=== PATIENT | female | born 1990 | race Caucasian/White ===

== ENCOUNTER 2023-02-04 08:16 | Emergency (ER) | payer MEDICAID, SELFPAY ==
[2023-02-04] VITALS (8 sets, daily range): BP systolic 97–126; BP diastolic 42–79; PULSE 55–80; RESP 16–21; TEMP 36.8; O2SAT 94–99; BMI 45.3
--- NOTE | 2023-02-04 08:27 | ECG_ITS ---
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
--- NOTE | 2023-02-04 08:40 | XR_ITS ---
The [address] [address] Patient Name: MARILIA OSBORNE MRN: [id number] date: 1990 Sex: F Assigned Patient Location: ER Current Patient Location: ER Accession/Order Number: [id number] Exam Date: 02/04/2023 08:50 Report Date: 02/04/2023 09:06 At the request of: KLAUDIA MADRIGAL Procedure: XR chest 1V TITLE: XR chest 1V COMPARISON: None. CLINICAL HISTORY: pain TECHNIQUE: One view. FINDINGS: There is a normal cardiac and mediastinal contour. The pulmonary vascular pattern is normal. The lungs are clear and the pleural margins are sharp. There are no significant skeletal abnormalities. IMPRESSION: NO ACUTE RADIOGRAPHIC FINDINGS Electronically authenticated by: ANDERSON BROWN Date: 02/04/2023 09:06
--- NOTE | 2023-02-04 08:44 | ED_ITS ---
HPI - Chest Pain General Chief Complaint: Chest Pain Stated Complaint: CHEST PAIN Time Seen by Provider: 02/04/23 08:20 Source: patient and family Source comment: Mode of arrival: Wheelchair Limitations: no limitations History of Present Illness HPI narrative: this patient presents to emergency room with her by private vehicle. She states when she was getting up today to get dressed she's developed a pressure in her left chest underneath the left breast. She does not have any radiation to the neck jaw or arms. Does not have any syncopal episodes or palpitations. She has no previous cardiovascular events. She says she felt somewhat nauseated. The pain lasted approximately fifteen minutes and relieved on the route to the hospital. She does have a history of diabetes but no other cardiovascular risk factors. She has no leg swelling or history of deep vein thrombosis or pulmonary embolism. She says the pain is made worse by taking a deep breath and certain movements. She did not take any medication prior to arrival. 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 She denied any shortness of breath. She's not been sick with any viruses but last week she had some gastrointestinal disturbance that resolved itself. Related Data Home Medications Medication Instructions Recorded Confirmed aripiprazole 10 mg tablet 10 mg PO QDAY 02/04/23 02/04/23 buspirone 10 mg tablet 10 mg PO BID 02/04/23 02/04/23 calcium carbonate 600 mg calcium 600 mg PO DAILY 02/04/23 02/04/23 (1,500 mg) tablet (Calcium) calcium phosphate,dibasic 77 1 tab PO QDAY 02/04/23 02/04/23 mg-vitamin D3 400 unit tablet empagliflozin 10 mg tablet 10 mg PO DAILY 02/04/23 02/04/23 (Jardiance) fluoxetine 40 mg capsule 40 mg PO QDAY 02/04/23 02/04/23 insulin regular hum U-500 conc 500 60 unit subcut TID 02/04/23 02/04/23 unit/mL(3 mL) subcut pen (Humulin R U-500 (Conc) Insulin Kwikpen) magnesium 250 mg tablet 250 mg PO DAILY 02/04/23 02/04/23 metformin 1,000 mg tablet 1,000 mg PO BID 02/04/23 02/04/23 pantoprazole 40 mg tablet,delayed 40 mg PO Q12H PRN indigestion 02/04/23 02/04/23 release spironolactone 50 mg tablet 50 mg PO QDAY 02/04/23 02/04/23 trazodone 50 mg tablet 50 mg PO DAILY 02/04/23 02/04/23 Allergies Allergy/AdvReac Type Severity Reaction Status Date / Time No Known Drug Allergies Allergy Verified 02/04/23 08:21 [facility] Social History Smoking status: Current every day smoker Exam Narrative Exam Narrative: awake alert moderately anxious very pleasant here with her Constitutional Vital Signs - 24 hr 02/04/23 08:21 02/04/23 08:22 02/04/23 08:22 Temperature 98.3 F Pulse Rate 76 Pulse Rate [Monitor] 80 Respiratory Rate 18 21 Blood Pressure 126/79 H Blood Pressure [Right Arm] 126/79 H Pulse Oximetry 99 94 L 97 Oxygen Delivery Method Room Air Common normals: no apparent distress Chest Common normals: inspection of chest normal Respiratory Common normals: normal respiratory effort, no retractions, no use of accessory muscles and clear to auscultation bilaterally Effort & inspection: able to speak in complete sentences Cardio Common normals: no JVD, regular rate, regular rhythm and peripheral pulses 2+ throughout Extremity Common normals: normal to inspection General: no edema, no mottling and no palpable cord Course Vital Signs Vital signs: Vital Signs Temperature 98.3 F 02/04/23 08:21 Pulse Rate 80 02/04/23 08:21 Respiratory Rate 18 02/04/23 08:21 Blood Pressure 126/79 H 02/04/23 08:21 Pulse Oximetry 99 02/04/23 08:21 Oxygen Delivery Method Room Air 02/04/23 08:21 Temperature 98.3 F 02/04/23 08:21 Pulse Rate 70 02/04/23 11:08 Respiratory Rate 16 02/04/23 11:08 Blood Pressure 104/51 L 02/04/23 11:08 Pulse Oximetry 99 02/04/23 11:08 Oxygen Delivery Method Room Air 02/04/23 11:08 MDM - Chest Pain MDM Narrative Medical decision making narrative: patient presented with relatively low level suspicion for cardiovascular disease risk or. Her cardiac enzymes, EKG chest x-ray vital signs and clinical examination benign. There was an extended problem and delay with laboratory complaining d-dimer. We will discharge the patient and contact them if it's abnormal to return for CTA but she has low risk score for pulmonary embolism as well. I believe most of this is chest wall pain treatment recommendations will be discussed. This was agreeable with the patient's Lab Data Labs: Lab Results 02/04/23 Range/Units 08:40 WBC 9.9 (4.0-11.0) 10^3/uL RBC 4.95 (4.20-5.40) 10^6/uL Hgb 13.3 (12.0-16.0) g/dL Hct 39.9 (36.0-48.0) % MCV 80.6 L (81.0-99.0) fL MCH 26.9 (26.7-34.0) pg MCHC 33.3 (29.9-35.2) g/dL RDW 13.5 (11.0-15.0) % Plt Count 259 (150-450) 10^3/uL MPV 10.5 (9.5-13.5) fL Neut % (Auto) 60.6 (43.0-75.0) % Lymph % (Auto) 29.2 (20.5-60.0) % [place] % (Auto) 7.0 (1.7-12.0) % Eos % (Auto) 2.3 (0.9-7.0) % Baso % (Auto) 0.6 (0.2-2.0) % Neut # (Auto) 6.0 (1.4-6.5) 10^3/uL Lymph # (Auto) 2.9 (1.2-3.8) 10^3/uL [place] # (Auto) 0.7 (0.3-0.8) 10^3/uL Eos # (Auto) 0.2 (0.0-0.7) 10^3/uL Baso # (Auto) 0.1 (0.0-0.1) 10^3/uL Abs Immat Gran (auto) 0.03 (0.00-0.03) 10^3/uL Imm/Tot Granulo (auto) 0.3 (0.0-0.5) % D-Dimer 0.95 H* (<=0.59) mg/L FEU Sodium 135 L (136-145) mmol/L Potassium 4.2 (3.5-5.1) mmol/L Chloride 103 (98-107) mmol/L Carbon Dioxide 22.6 (21.0-32.0) mmol/L Anion Gap 13.6 BUN 14.0 (7.0-18.0) mg/dL Creatinine 0.66 (0.55-1.02) mg/dL Est GFR ( Amer) >60 (>=60) Est GFR (Non-Af Amer) >60 (>=60) BUN/Creatinine Ratio 21.2 Glucose 207 H (74-106) mg/dL Calcium 8.7 (8.5-10.1) mg/dL Troponin I High Sens <4.0 L (4.0-51.3) pg/mL NT-Pro-B Natriuret Pep 30.0 (<=450.0) pg/mL Discharge Plan Discharge Chief Complaint: Chest Pain Clinical Impression: Chest pain Patient Disposition: Home, Self-Care Time of Disposition Decision: 11:05 Condition: Good Prescriptions / Home Meds: No Action metformin 1,000 mg tablet 1,000 mg PO BID Jardiance 10 mg tablet 10 mg PO DAILY aripiprazole 10 mg tablet 10 mg PO QDAY buspirone 10 mg tablet 10 mg PO BID trazodone 50 mg tablet 50 mg PO DAILY fluoxetine 40 mg capsule 40 mg PO QDAY spironolactone 50 mg tablet 50 mg PO QDAY calcium phos,dibas-vitamin D3 77-400 mg-unit tablet 1 tab PO QDAY pantoprazole 40 mg tablet,delayed release (DR/EC) 40 mg PO Q12H PRN (Reason: indigestion) magnesium 250 mg tablet 250 mg PO DAILY calcium carbonate [Calcium 600] 600 mg calcium (1,500 mg) tablet 600 mg PO DAILY Humulin R U-500 (Conc) Kwikpen 500 unit/mL (3 mL) insulin pen 60 unit SUBCUT TID Rx Instructions: with sliding scale Instructions: Chest Pain (ED) Stand Alone Forms: Portal Instructions Referrals: Ariane Wells [Primary Care Provider] - 1 week Discharge Date/Time: 02/04/23 12:10
[2023-02-04 09:08] LABS: Basophils Absolute Auto 0.1 10^3/uL (0.0-0.1); Basophils Percent Auto 0.6 % (0.2-2.0); Eosinophils Absolute Auto 0.2 10^3/uL (0.0-0.7); Eosinophils Percent Auto 2.3 % (0.9-7.0); Hematocrit 39.9 % (36.0-48.0); Hemoglobin 13.3 g/dL (12.0-16.0); Immature Granulocytes Abs Auto 0.03 10^3/uL (0.00-0.03); Immature Granulocytes Pct Auto 0.3 % (0.0-0.5); Lymphocytes Absolute Auto 2.9 10^3/uL (1.2-3.8); Lymphocytes Percent Auto 29.2 % (20.5-60.0); Mean Corpuscular HGB Conc 33.3 g/dL (29.9-35.2); Mean Corpuscular Hemoglobin 26.9 pg (26.7-34.0); Mean Corpuscular Volume 80.6 fL (81.0-99.0); Mean Platelet Volume 10.5 fL (9.5-13.5); Monocytes Absolute Auto 0.7 10^3/uL (0.3-0.8); Neutrophils Percent Auto 60.6 % (43.0-75.0); Platelet Count 259 10^3/uL (150-450); Red Blood Count 4.95 10^6/uL (4.20-5.40); Red Cell Distribution Width 13.5 % (11.0-15.0); White Blood Count 9.9 10^3/uL (4.0-11.0)
[2023-02-04 09:47] LABS: Anion Gap 13.6; BUN Creatinine Ratio 21.2; Calcium 8.7 mg/dL (8.5-10.1); Carbon Dioxide 22.6 mmol/L (21.0-32.0); Chloride 103 mmol/L (98-107); Estimated GFR (African America >60 (>=60); Estimated GFR (Non-African Ame >60 (>=60); Glucose 207 mg/dL (74-106); Potassium 4.2 mmol/L (3.5-5.1); Sodium 135 mmol/L (136-145); Troponin I High Sensitivity <4.0 pg/mL (4.0-51.3)
[2023-02-04 11:11] LABS: D Dimer 0.95 mg/L FEU (<=0.59)
--- NOTE | 2023-02-04 11:12 | CT_ITS ---
The [address] [address] Patient Name: MARILIA OSBORNE MRN: [id number] date: 1990 Sex: F Assigned Patient Location: ER Current Patient Location: ER Accession/Order Number: [id number] Exam Date: 02/04/2023 11:30 Report Date: 02/04/2023 12:02 At the request of: KLAUDIA MADRIGAL Procedure: CT angio chest EXAM: CT angio chest; [id number] REASON FOR EXAM: CHEST PAIN TECHNIQUE: Helical CT images of the chest were obtained after the administration of IV contrast. Multiplanar reformats and maximum intensity projection images were created at the scanner. Dose reduction technique used: Automated exposure control and/or adjustment of the mA and/or kV according to patient size and/or use of iterative reconstruction technique. COMPARISON: CT chest 01/09/2022. FINDINGS: Technical quality: Adequate. Chest: Support devices: None. Visualized Thyroid: No nodules. Chest wall: Within normal limits. Monie/mediastinum/esophagus: No mass. Thoracic lymph nodes: No enlarged supraclavicular, mediastinal, hilar or axillary lymph nodes. Heart and vasculature: -No pulmonary artery filling defect to suggest pulmonary embolism. -No pericardial effusion or aortic aneurysm. Visualized portions of the upper abdomen: Within normal limits. Musculoskeletal: No acute abnormality or suspicious osseous lesion. Lungs/airways: -No significant nodule or infiltrate. -The central airways are patent. Pleura: No pleural effusion or pneumothorax. IMPRESSION: Negative exam. No pulmonary embolism or any acute cardiopulmonary abnormality demonstrated. Electronically authenticated by: MARIA DEL CARMEN DUPREE Date: 02/04/2023 12:02
== END 2023-02-04 12:10 | disposition home or self-care (01) ==
PROVIDERS: Emergency Provider Emergency Medicine Emergency Medical Services; PCP Nurse Practitioner
DX: R07.9 Chest pain, unspecified (principal); Z79.899 Other long term (current) drug therapy; Z79.4 Long term (current) use of insulin; Z79.84 Long term (current) use of oral hypoglycemic drugs; F17.210 Nicotine dependence, cigarettes, uncomplicated
CPT/HCPCS: 36415; 71045; 71275; 80048; 83880; 84484; 85025; 85378; 93005; 99284; Q9967

== ENCOUNTER 2023-03-14 07:53 | Outpatient (OUT) | payer MEDICAID, SELFPAY ==
--- NOTE | 2023-03-14 08:13 | MM_ITS ---
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 INDICATIONS: Left Breast Lump N63.20 Calculator Name NCI Breast Cancer Risk Assessment Tool 5 Year Breast Cancer Risk Not Applicable. Lifetime Breast Cancer Risk Not Applicable. Personal Breast Cancer No Personal Ovarian Cancer No Treatments None Family Cancers None LOCATION: The [facility] BREAST COMPOSITION: Heterogeneously dense,which may obscure small masses. FINDINGS: DIAGNOSTIC CATEGORY 1--NEGATIVE. RIGHT BREAST: No significant suspicious finding. LEFT BREAST: No significant suspicious finding. A skin surface marker is present over the anterior upper-outer breast subareolar region. No underlying mammographic abnormality. Ultrasound evaluation demonstrates normal appearing dense fibroglandular tissue. Annual screening mammography is recommended when age-appropriate. RECOMMENDATIONS: CLINICAL EVALUATION. PLEASE NOTE: A NORMAL MAMMOGRAM DOES NOT EXCLUDE THE POSSIBILITY OF BREAST CANCER. A CLINICALLY SUSPICIOUS PALPABLE LUMP SHOULD BE BIOPSIED. Dictated by: Roshan Mancilla M.D. on 03/14/2023 at 09:12 Approved by: Roshan Mancilla M.D. on 03/14/2023 at 09:17
== END 2023-03-14 07:54 | disposition home or self-care (01) ==
LOC: MAMMO 07:55
PROVIDERS: PCP Nurse Practitioner; Visit Provider Nurse Practitioner
DX: N63.20 Unspecified lump in the left breast, unspecified quadrant (principal)
CPT/HCPCS: 76642; 77066; G0279

== ENCOUNTER 2023-04-22 19:03 | Emergency (ER) | payer MEDICAID, SELFPAY ==
[2023-04-22 19:08] VITALS: BP 108/74; PULSE 95; RESP 18; TEMP 37.3; O2SAT 96; BMI 46.1
--- NOTE | 2023-04-22 19:38 | ED_ITS ---
HPI - General Adult General Chief complaint: Dental/Oral Stated complaint: General weakness, Dizziness Time Seen by Provider: 04/22/23 19:26 History of Present Illness HPI narrative: presents complaining of a headache for the past 2 weeks. Not resolving with her usual OTC medications. Also has right lower dental pain and can taste pus in her mouth when it drains. lastly she complains that her period is not normal. usually she bleeds more and it is bright red. This time bleeding was decreased and brown. Still has some blood when she wipes but it is slowing down. Occ crampy pain related to her menses but otherwise abdomen is ok. Sl. nausea. No fever. No urinary symptoms Related Data Home Medications Medication Instructions Recorded Confirmed aripiprazole 10 mg tablet 10 mg PO QDAY 02/04/23 02/04/23 buspirone 10 mg tablet 10 mg PO BID 02/04/23 02/04/23 calcium carbonate 600 mg calcium 600 mg PO DAILY 02/04/23 02/04/23 (1,500 mg) tablet (Calcium) calcium phosphate,dibasic 77 1 tab PO QDAY 02/04/23 02/04/23 mg-vitamin D3 400 unit tablet empagliflozin 10 mg tablet 10 mg PO DAILY 02/04/23 02/04/23 (Jardiance) fluoxetine 40 mg capsule 40 mg PO QDAY 02/04/23 02/04/23 insulin regular hum U-500 conc 500 60 unit subcut TID 02/04/23 02/04/23 unit/mL(3 mL) subcut pen (Humulin R U-500 (Conc) Insulin Kwikpen) magnesium 250 mg tablet 250 mg PO DAILY 02/04/23 02/04/23 metformin 1,000 mg tablet 1,000 mg PO BID 02/04/23 02/04/23 pantoprazole 40 mg tablet,delayed 40 mg PO Q12H PRN indigestion 02/04/23 02/04/23 release spironolactone 50 mg tablet 50 mg PO QDAY 02/04/23 02/04/23 trazodone 50 mg tablet 50 mg PO DAILY 02/04/23 02/04/23 Allergies Allergy/AdvReac Type Severity Reaction Status Date / Time prednisone AdvReac Severe hyperglycem Verified 04/22/23 19:08 ia Review of Systems ROS Status of ROS 10 or more systems reviewed and unremarkable except as noted in history and below [facility] Social History Smoking status: Current every day smoker Exam Constitutional Vital Signs, click to edit/add: Last Vital Signs Temp 99.1 F 04/22/23 19:08 Pulse 100 H 04/22/23 21:06 Resp 20 04/22/23 21:06 BP 169/99 H 04/22/23 21:06 Pulse Ox 96 04/22/23 21:08 O2 Del Method Room Air 04/22/23 21:08 Common normals: no apparent distress, oriented x3, alert and well nourished HENMD Common normals: normocephalic and head/scalp atraumatic Teeth and gingiva image: 1. mild swelling. No obvious discharge. mod. tenderness. reproduces pain Eye Common normals: PERRL, EOMs intact bilaterally and conjunctivae normal Respiratory Common normals: normal respiratory effort, no retractions, no use of accessory muscles and clear to auscultation bilaterally Cardio Common normals: regular rate, regular rhythm, S1 normal heart sound and S2 normal heart sound GI Common normals: Normal to inspection, nondistended, normoactive bowel sounds present, soft to palpation and non-tender Extremity Common normals: normal to inspection, full ROM and normal capillary refill Neuro Common normals: oriented x3, CN's II-XII intact bilaterally, moves all extremities, no focal motor deficits and no sensory deficits noted Psych Appearance: grossly normal Course Vital Signs Vital signs: Vital Signs Temperature 99.1 F 04/22/23 19:08 Pulse Rate 95 H 04/22/23 19:08 Respiratory Rate 18 04/22/23 19:08 Blood Pressure 108/74 04/22/23 19:08 Pulse Oximetry 96 04/22/23 19:08 Oxygen Delivery Method Room Air 04/22/23 19:08 Temperature 99.1 F 04/22/23 19:08 Pulse Rate 100 H 04/22/23 21:06 Respiratory Rate 20 04/22/23 21:06 Blood Pressure 169/99 H 04/22/23 21:06 Pulse Oximetry 96 04/22/23 21:08 Oxygen Delivery Method Room Air 04/22/23 21:08 Medical Decision Making MDM Narrative Medical decision making narrative: patient presents with dental pain/abscess and headache. BHATT possibly from her dental abscess. CT brain neg. WBC WNL. potassium low and supplemented. Headache resolved with reglan and benadry. given IV Rocephin for dental abscess . Advised to follow up with her drier tender regarding her abnormal menses. Urine HCG neg. Lab Data Labs: Lab Results 04/22/23 04/22/23 Range/Units 19:55 20:23 WBC 10.7 (4.0-11.0) 10^3/uL RBC 4.71 (4.20-5.40) 10^6/uL Hgb 12.7 (12.0-16.0) g/dL Hct 38.4 (36.0-48.0) % MCV 81.5 (81.0-99.0) fL MCH 27.0 (26.7-34.0) pg MCHC 33.1 (29.9-35.2) g/dL RDW 13.1 (11.0-15.0) % Plt Count 265 (150-450) 10^3/uL MPV 10.8 (9.5-13.5) fL Neut % (Auto) 66.7 (43.0-75.0) % Lymph % (Auto) 24.2 (20.5-60.0) % [place] % (Auto) 6.3 (1.7-12.0) % Eos % (Auto) 1.9 (0.9-7.0) % Baso % (Auto) 0.7 (0.2-2.0) % Neut # (Auto) 7.1 H (1.4-6.5) 10^3/uL Lymph # (Auto) 2.6 (1.2-3.8) 10^3/uL [place] # (Auto) 0.7 (0.3-0.8) 10^3/uL Eos # (Auto) 0.2 (0.0-0.7) 10^3/uL Baso # (Auto) 0.1 (0.0-0.1) 10^3/uL Abs Immat Gran (auto) 0.02 (0.00-0.03) 10^3/uL Imm/Tot Granulo (auto) 0.2 (0.0-0.5) % Sodium 132 L (136-145) mmol/L Potassium 3.3 L (3.5-5.1) mmol/L Chloride 99 (98-107) mmol/L Carbon Dioxide 27.6 (21.0-32.0) mmol/L Anion Gap 8.7 BUN 12.0 (7.0-18.0) mg/dL Creatinine 0.81 (0.55-1.02) mg/dL Est GFR ( Amer) >60 (>=60) Est GFR (Non-Af Amer) >60 (>=60) BUN/Creatinine Ratio 14.8 Glucose 255 H (74-106) mg/dL Calcium 8.3 L (8.5-10.1) mg/dL Total Bilirubin 0.3 (0.2-1.0) mg/dL AST 31 (15-37) U/L ALT 58 (14-59) U/L Alkaline Phosphatase 90 (46-116) U/L Total Protein 7.1 (6.4-8.2) g/dL Albumin 3.3 L (3.4-5.0) g/dL Globulin 3.8 g/dL Albumin/Globulin Ratio 0.9 Urine Color Yellow (YELLOW) Urine Clarity Clear (CLEAR) Urine pH 6.5 (5.0-9.0) Ur Specific [place] 1.025 (1.005-1.025) Urine Protein Negative (NEG/TRACE) mg/dL Urine Glucose (UA) 100 A (NEGATIVE) mg/dL Urine Ketones Negative (NEGATIVE) mg/dL Urine Occult Blood Trace-i (NEGATIVE) Urine Nitrite Negative (NEGATIVE) Urine Bilirubin Negative (NEGATIVE) Urine Urobilinogen 1.0 (0.2-1.0) EU/dL Ur Leukocyte Esterase Negative (NEGATIVE) Urine RBC 0-2 (0-2) #/HPF Urine WBC None seen (NONE SEEN) #/HPF Ur Squamous Epith Cells Few A (NONE/RARE) #/LPF Urine Crystals None seen (None Seen) #/HPF Urine Bacteria Trace A (NONE SEEN) #/HPF Urine Casts None seen (NONE SEEN) #/LPF Urine Mucus Trace A (NONE SEEN) Ur Culture Indicated? No Urine HCG, Qual Negative (NEGATIVE) Discharge Plan Discharge Chief Complaint: Dental/Oral Clinical Impression: Headache, Abnormal menstrual cycle, Dental abscess Patient Disposition: Home, Self-Care Prescriptions / Home Meds: No Action metformin 1,000 mg tablet 1,000 mg PO BID Jardiance 10 mg tablet 10 mg PO DAILY aripiprazole 10 mg tablet 10 mg PO QDAY buspirone 10 mg tablet 10 mg PO BID trazodone 50 mg tablet 50 mg PO DAILY fluoxetine 40 mg capsule 40 mg PO QDAY spironolactone 50 mg tablet 50 mg PO QDAY calcium phos,dibas-vitamin D3 77-400 mg-unit tablet 1 tab PO QDAY pantoprazole 40 mg tablet,delayed release (DR/EC) 40 mg PO Q12H PRN (Reason: indigestion) magnesium 250 mg tablet 250 mg PO DAILY calcium carbonate [Calcium 600] 600 mg calcium (1,500 mg) tablet 600 mg PO DAILY Humulin R U-500 (Conc) Kwikpen 500 unit/mL (3 mL) insulin pen 60 unit SUBCUT TID Rx Instructions: with sliding scale Instructions: Abnormal (Dysfunctional) Uterine Bleeding (ED), Dental Abscess (ED), General Headache (ED) Additional Instructions: follow up with Warehouse Representative Dr Wall and with your family doctor Stand Alone Forms: Portal Instructions Referrals: Ariane Wells [Primary Care Provider] - 1 week
--- NOTE | 2023-04-22 19:46 | CT_ITS ---
The [address] [address] Patient Name: MARILIA OSBORNE MRN: [id number] date: 1990 Sex: F Assigned Patient Location: ER Current Patient Location: ER Accession/Order Number: [id number] Exam Date: 04/22/2023 20:35 Report Date: 04/22/2023 20:52 At the request of: STAN THOMPSON Procedure: CT head/brain wo con EXAM: CT head/brain wo con HISTORY: headache COMPARISON: None. TECHNIQUE: Noncontrast head CT performed FINDINGS: No mass effect or midline shift. No hemorrhage or edema. Mastoid air cells are not well-developed. Paranasal sinuses otherwise clear.. Normal fontaine-white matter differentiation CT/CT head/brain wo con IMPRESSION: No correlate for symptoms. If persistent concern, consider MRI Electronically authenticated by: MIA ORNELAS Date: 04/22/2023 20:52
[2023-04-22] MEDS: 0.9 % SODIUM CHLORIDE 1,000 ML 999 ML IV (20:06)
[2023-04-22 20:11] LABS: Basophils Absolute Auto 0.1 10^3/uL (0.0-0.1); Basophils Percent Auto 0.7 % (0.2-2.0); Eosinophils Absolute Auto 0.2 10^3/uL (0.0-0.7); Eosinophils Percent Auto 1.9 % (0.9-7.0); Hematocrit 38.4 % (36.0-48.0); Hemoglobin 12.7 g/dL (12.0-16.0); Immature Granulocytes Abs Auto 0.02 10^3/uL (0.00-0.03); Immature Granulocytes Pct Auto 0.2 % (0.0-0.5); Lymphocytes Absolute Auto 2.6 10^3/uL (1.2-3.8); Lymphocytes Percent Auto 24.2 % (20.5-60.0); Mean Corpuscular HGB Conc 33.1 g/dL (29.9-35.2); Mean Corpuscular Volume 81.5 fL (81.0-99.0); Mean Platelet Volume 10.8 fL (9.5-13.5); Monocytes Absolute Auto 0.7 10^3/uL (0.3-0.8); Monocytes Percent Auto 6.3 % (1.7-12.0); Neutrophils Absolute Auto 7.1 10^3/uL (1.4-6.5); Neutrophils Percent Auto 66.7 % (43.0-75.0); Platelet Count 265 10^3/uL (150-450); Red Blood Count 4.71 10^6/uL (4.20-5.40); Red Cell Distribution Width 13.1 % (11.0-15.0); White Blood Count 10.7 10^3/uL (4.0-11.0)
[2023-04-22 20:27] LABS: Alanine Aminotransferase 58 U/L (14-59); Albumin Globulin Ratio 0.9; Albumin Level 3.3 g/dL (3.4-5.0); Alkaline Phosphatase 90 U/L (46-116); Anion Gap 8.7; Aspartate Amino Transferase 31 U/L (15-37); BUN Creatinine Ratio 14.8; Bilirubin Total 0.3 mg/dL (0.2-1.0); Calcium 8.3 mg/dL (8.5-10.1); Carbon Dioxide 27.6 mmol/L (21.0-32.0); Chloride 99 mmol/L (98-107); Estimated GFR (African America >60 (>=60); Estimated GFR (Non-African Ame >60 (>=60); Globulin 3.8 g/dL; Glucose 255 mg/dL (74-106); Potassium 3.3 mmol/L (3.5-5.1); Sodium 132 mmol/L (136-145); Total Protein 7.1 g/dL (6.4-8.2)
[2023-04-22 20:29] LABS: Bilirubin Urine NEGATIVE (NEGATIVE); Blood Urine TRACE-I (NEGATIVE); Clarity Urine CLEAR (CLEAR); Color Urine YELLOW (YELLOW); Glucose Urine UA 100 mg/dL (NEGATIVE); Ketones Urine NEGATIVE (NEGATIVE); Leukocyte Esterase Urine NEGATIVE (NEGATIVE); Nitrite Urine NEGATIVE (NEGATIVE); Protein Urine NEGATIVE (NEG/TRACE); Specific Gravity Urine 1.025 (1.005-1.025); pH Urine 6.5 (5.0-9.0)
[2023-04-22 20:30] LABS: HCG Qualitative Urine* NEGATIVE (NEGATIVE); Urine Microscopic Indicated YES
[2023-04-22 20:37] LABS: Cast Seen? NONE SEEN #/LPF (NONE SEEN); RBC Urine 0-2 #/HPF (0-2); Urine Culture Indicated NO; WBC Urine NONE SEEN #/HPF (NONE SEEN)
[2023-04-22 20:38] LABS: Bacteria Urine TRACE #/HPF (NONE SEEN); Crystals Seen? None Seen #/HPF (None Seen); Mucus Urine TRACE (NONE SEEN); Squamous Epithelial Cell Urine FEW #/LPF (NONE/RARE)
[2023-04-22] MEDS: METOCLOPRAMIDE HCL 10 MG/2 ML VIAL IVP (20:50)
[2023-04-22] MEDS: DIPHENHYDRAMINE HCL 50 MG/ML (1ML) VIAL IV (20:50)
[2023-04-22] MEDS: POTASSIUM CHLORIDE 10 MEQ ER TABLET 40 MEQ PO (21:03)
[2023-04-22 21:06] VITALS: BP 169/99; PULSE 100; RESP 20; O2SAT 96
--- NOTE | 2023-04-22 21:06 | PC.NURSE ---
pt states she is feeling like she is having a panic attack. having pt lay down and rest, vitals updated and pt updated on waiting for CT results, call light in reach
[2023-04-22 21:08] VITALS: O2SAT 96
[2023-04-22] MEDS: CEFTRIAXONE 1,000 MG in 0.9 % SODIUM CHLORIDE 50 ML 100 MG IV (21:39)
== END 2023-04-22 22:20 | disposition home or self-care (01) ==
PROVIDERS: Emergency Provider Internal Medicine; PCP Nurse Practitioner
DX: R51.9 Headache, unspecified (principal); K04.7 Periapical abscess without sinus; N91.5 Oligomenorrhea, unspecified; Z79.4 Long term (current) use of insulin; Z79.899 Other long term (current) drug therapy; F17.210 Nicotine dependence, cigarettes, uncomplicated
CPT/HCPCS: 36415; 70450; 80053; 81001; 84703; 85025; 96374; 96375; 99285

== ENCOUNTER 2023-04-26 11:20 | Emergency (ER) | payer MEDICAID, SELFPAY ==
[2023-04-26 11:26] VITALS: BP 127/86; PULSE 74; RESP 20; TEMP 37.2; O2SAT 96; BMI 46.1
--- NOTE | 2023-04-26 11:41 | XR_ITS ---
The [address] [address] Patient Name: MARILIA OSBORNE MRN: [id number] date: 1990 Sex: F Assigned Patient Location: ER Current Patient Location: ER Accession/Order Number: [id number] Exam Date: 04/26/2023 11:45 Report Date: 04/26/2023 12:13 At the request of: KLAUDIA MADRIGAL Procedure: XR wrist LT min 3V LEFT WRIST 3 VIEWS: 04/26/2023 11:45 AM EDT Clinical Data: pain. No injury. Comparison: No previous No evidence of acute fracture or dislocation. No bony spurring is evident. No periarticular erosions are evident. XR/XR wrist LT min 3V IMPRESSION: 1. No evidence of acute process by plain film. Electronically authenticated by: CURT LACKEY Date: 04/26/2023 12:13
--- NOTE | 2023-04-26 11:42 | ED.UPPEXIN1 ---
HPI - Extremity Injury (Upper) General Chief Complaint: Extremity Injury, Upper Stated Complaint: L HAND SWOLLEN/UPPER EXTREMITY INJURY/PAIN Time Seen by Provider: 04/26/23 11:41 Source: patient Mode of arrival: walk-in Limitations: no limitations History of Present Illness HPI narrative: patient's here complaining of pain in her left wrist. Sometimes it shoots into the digits. It's a very sharp neuropraxia type of pain. She has no history of change in activity trauma or injury. It does not bother her more at night. It does not shoot up into her forearm. None of the other joints are involved. She is a diabetic but has no known history of neuropathy of her hands or her feet. She has not noticed any swelling. 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 She's nota discoloration of the digit. Related Data Home Medications Medication Instructions Recorded Confirmed aripiprazole 10 mg tablet 10 mg PO QDAY 02/04/23 02/04/23 buspirone 10 mg tablet 10 mg PO BID 02/04/23 02/04/23 calcium carbonate 600 mg calcium 600 mg PO DAILY 02/04/23 02/04/23 (1,500 mg) tablet (Calcium) calcium phosphate,dibasic 77 1 tab PO QDAY 02/04/23 02/04/23 mg-vitamin D3 400 unit tablet empagliflozin 10 mg tablet 10 mg PO DAILY 02/04/23 02/04/23 (Jardiance) fluoxetine 40 mg capsule 40 mg PO QDAY 02/04/23 02/04/23 insulin regular hum U-500 conc 500 60 unit subcut TID 02/04/23 02/04/23 unit/mL(3 mL) subcut pen (Humulin R U-500 (Conc) Insulin Kwikpen) magnesium 250 mg tablet 250 mg PO DAILY 02/04/23 02/04/23 metformin 1,000 mg tablet 1,000 mg PO BID 02/04/23 02/04/23 pantoprazole 40 mg tablet,delayed 40 mg PO Q12H PRN indigestion 02/04/23 02/04/23 release spironolactone 50 mg tablet 50 mg PO QDAY 02/04/23 02/04/23 trazodone 50 mg tablet 50 mg PO DAILY 02/04/23 02/04/23 amoxicillin 875 mg-potassium 1 tab PO BID 04/22/23 04/22/23 clavulanate 125 mg tablet Allergies Allergy/AdvReac Type Severity Reaction Status Date / Time prednisone AdvReac Severe hyperglycem Verified 04/22/23 19:08 [facility] Social History Smoking status: Current every day smoker Exam Narrative Exam Narrative: very pleasant says it really is not bothering her much at this time. She is afebrile. Examination of the involved area shows the forearm and elbow area to be completely normal. She has tenderness with palpation over the carpal canal. She does not have a vascular insufficiency or decreased pulse. She does have discomfort when extending the wrist. the discomfort radiates into the digits.Movement of the digits is normal. Constitutional Vital Signs, click to edit/add: Last Vital Signs Temp 98.9 F 04/26/23 11:26 Pulse 74 04/26/23 11:26 Resp 20 04/26/23 11:26 BP 127/86 04/26/23 11:26 Pulse Ox 96 04/26/23 11:26 O2 Del Method Room Air 04/26/23 11:26 Course Vital Signs Vital signs: Vital Signs Temperature 98.9 F 04/26/23 11:26 Pulse Rate 74 04/26/23 11:26 Respiratory Rate 20 04/26/23 11:26 Blood Pressure 127/86 04/26/23 11:26 Pulse Oximetry 96 04/26/23 11:26 Oxygen Delivery Method Room Air 04/26/23 11:26 Temperature 98.9 F 04/26/23 11:26 Pulse Rate 74 04/26/23 11:26 Respiratory Rate 20 04/26/23 11:26 Blood Pressure 127/86 04/26/23 11:26 Pulse Oximetry 96 04/26/23 11:26 Oxygen Delivery Method Room Air 04/26/23 11:26 MDM - Extremity Injury (Upper) MDM Narrative Medical decision making narrative: patient's x-rays were normal and the clinical exam suggests early carpal tunnel syndrome. This could be an overuse syndrome or possible even diabetic neuropathy so she was advised to follow-up with her primary care for further diagnostic testing she is agreeable with those recommendations. We will place her in an immobilizing splint Discharge Plan Discharge Chief Complaint: Extremity Injury, Upper Clinical Impression: Left wrist sprain Patient Disposition: Home, Self-Care Time of Disposition Decision: 12:19 Prescriptions / Home Meds: No Action metformin 1,000 mg tablet 1,000 mg PO BID Jardiance 10 mg tablet 10 mg PO DAILY aripiprazole 10 mg tablet 10 mg PO QDAY buspirone 10 mg tablet 10 mg PO BID trazodone 50 mg tablet 50 mg PO DAILY fluoxetine 40 mg capsule 40 mg PO QDAY spironolactone 50 mg tablet 50 mg PO QDAY calcium phos,dibas-vitamin D3 77-400 mg-unit tablet 1 tab PO QDAY pantoprazole 40 mg tablet,delayed release (DR/EC) 40 mg PO Q12H PRN (Reason: indigestion) magnesium 250 mg tablet 250 mg PO DAILY calcium carbonate [Calcium 600] 600 mg calcium (1,500 mg) tablet 600 mg PO DAILY Humulin R U-500 (Conc) Kwikpen 500 unit/mL (3 mL) insulin pen 60 unit SUBCUT TID Rx Instructions: with sliding scale amoxicillin-pot clavulanate 875-125 mg tablet 1 tab PO BID Additional Instructions: use splint for at least 7-10 days. Follow-up with orthopedic, neurology or hand surgeon as advised for further diagnostic testing. sHe may need primary care doctor referral Stand Alone Forms: Portal Instructions Referrals: Ariane Wells [Primary Care Provider] - 1 week
== END 2023-04-26 12:31 | disposition home or self-care (01) ==
PROVIDERS: Emergency Provider Emergency Medicine Emergency Medical Services; PCP Nurse Practitioner
DX: S63.502A Unspecified sprain of left wrist, initial encounter (principal); X58.XXXA Exposure to other specified factors, initial encounter; E11.9 Type 2 diabetes mellitus without complications; Z79.899 Other long term (current) drug therapy; Z79.4 Long term (current) use of insulin; F17.210 Nicotine dependence, cigarettes, uncomplicated
CPT/HCPCS: 73110; 99283

== ENCOUNTER 2023-06-21 19:36 | Emergency (ER) | payer MEDICAID, SELFPAY ==
[2023-06-21 19:39] VITALS: BP 104/76; PULSE 82; RESP 18; TEMP 36.9; O2SAT 98; BMI 46.1
--- NOTE | 2023-06-21 20:04 | ED_ITS ---
HPI - Abdominal Pain General Chief Complaint: Abdominal Pain Stated Complaint: ABD PAIN Time Seen by Provider: 06/21/23 20:01 Source: patient Mode of arrival: walk-in History of Present Illness HPI narrative: past history of umbilical hernia. She believes it is acting up or she has an ovarian cyst. States pain started around 3-4 pm today and is associated with nausea. Pain increases when she is up walking. Decreases when lying still. No fever or diarrhea. No urinary symptoms MD elicited complaint: Reports abdominal pain Related Data Home Medications Medication Instructions Recorded Confirmed aripiprazole 10 mg tablet 10 mg PO QDAY 02/04/23 02/04/23 buspirone 10 mg tablet 10 mg PO BID 02/04/23 02/04/23 calcium carbonate 600 mg calcium 600 mg PO DAILY 02/04/23 02/04/23 (1,500 mg) tablet (Calcium) calcium phosphate,dibasic 77 1 tab PO QDAY 02/04/23 02/04/23 mg-vitamin D3 400 unit tablet empagliflozin 10 mg tablet 10 mg PO DAILY 02/04/23 02/04/23 (Jardiance) fluoxetine 40 mg capsule 40 mg PO QDAY 02/04/23 02/04/23 insulin regular hum U-500 conc 500 60 unit subcut TID 02/04/23 02/04/23 unit/mL(3 mL) subcut pen (Humulin R U-500 (Conc) Insulin Kwikpen) magnesium 250 mg tablet 250 mg PO DAILY 02/04/23 02/04/23 metformin 1,000 mg tablet 1,000 mg PO BID 02/04/23 02/04/23 pantoprazole 40 mg tablet,delayed 40 mg PO Q12H PRN indigestion 02/04/23 02/04/23 release spironolactone 50 mg tablet 50 mg PO QDAY 02/04/23 02/04/23 trazodone 50 mg tablet 50 mg PO DAILY 02/04/23 02/04/23 amoxicillin 875 mg-potassium 1 tab PO BID 04/22/23 04/22/23 clavulanate 125 mg tablet Allergies Allergy/AdvReac Type Severity Reaction Status Date / Time prednisone AdvReac Severe hyperglycem Verified 04/22/23 19:08 ia Review of Systems ROS Status of ROS 10 or more systems reviewed and unremarkable except as noted in history and below PFSH PFSH Social History Smoking status: Current every day smoker Exam Constitutional Vital Signs, click to edit/add: Last Vital Signs Temp 98.4 F 06/21/23 19:39 Pulse 78 06/21/23 22:20 Resp 16 06/21/23 22:20 BP 117/54 06/21/23 22:20 Pulse Ox 100 06/21/23 22:21 O2 Del Method Room Air 06/21/23 22:21 Common normals: no apparent distress, oriented x3, healthy appearing, alert and well nourished Eye Common normals: PERRL, EOMs intact bilaterally and conjunctivae normal Respiratory Common normals: normal respiratory effort, no retractions and no use of accessory muscles Cardio Common normals: regular rate, regular rhythm, S1 normal heart sound and S2 normal heart sound GI Other: umbilical hernia is small and nontender. suprapubic tenderness without guarding-mod tenderness Extremity Common normals: normal to inspection and full ROM Neuro Common normals: oriented x3, CN's II-XII intact bilaterally, moves all extremities and no focal motor deficits Psych Appearance: grossly normal Course Vital Signs Vital signs: Vital Signs Temperature 98.4 F 06/21/23 19:39 Pulse Rate 82 06/21/23 19:39 Respiratory Rate 18 06/21/23 19:39 Blood Pressure 104/76 06/21/23 19:39 Pulse Oximetry 98 06/21/23 19:39 Oxygen Delivery Method Room Air 06/21/23 19:39 Temperature 98.4 F 06/21/23 19:39 Pulse Rate 78 06/21/23 22:20 Respiratory Rate 16 06/21/23 22:20 Blood Pressure 117/54 06/21/23 22:20 Pulse Oximetry 100 06/21/23 22:21 Oxygen Delivery Method Room Air 06/21/23 22:21 MDM - Abdominal Pain MDM Narrative Medical decision making narrative: patient presents with abdominal pain. abrupt onset of pain earlier today that has continued. Admitted by the time she arrived here the pain was more tolerable and nearly absent if she laid still. CT abd/pelvis neg. Patient re examined and is now less tender. Informed she may likely have had a ruptured ovarian cyst which she has had in the past. She was feeling better and did not want to have a pelvic exam. Will follow up with her doctor Lab Data Labs: Lab Results 06/21/23 06/21/23 Range/Units 19:50 20:25 WBC 12.6 H (4.0-11.0) 10^3/uL RBC 4.58 (4.20-5.40) 10^6/uL Hgb 12.4 (12.0-16.0) g/dL Hct 37.0 (36.0-48.0) % MCV 80.8 L (81.0-99.0) fL MCH 27.1 (26.7-34.0) pg MCHC 33.5 (29.9-35.2) g/dL RDW 13.2 (11.0-15.0) % Plt Count 275 (150-450) 10^3/uL MPV 11.4 (9.5-13.5) fL Neut % (Auto) 53.3 (43.0-75.0) % Lymph % (Auto) 37.3 (20.5-60.0) % [place] % (Auto) 6.9 (1.7-12.0) % Eos % (Auto) 1.6 (0.9-7.0) % Baso % (Auto) 0.6 (0.2-2.0) % Neut # (Auto) 6.7 H (1.4-6.5) 10^3/uL Lymph # (Auto) 4.7 H (1.2-3.8) 10^3/uL [place] # (Auto) 0.9 H (0.3-0.8) 10^3/uL Eos # (Auto) 0.2 (0.0-0.7) 10^3/uL Baso # (Auto) 0.1 (0.0-0.1) 10^3/uL Abs Immat Gran (auto) 0.04 H (0.00-0.03) 10^3/uL Imm/Tot Granulo (auto) 0.3 (0.0-0.5) % Sodium 133 L (136-145) mmol/L Potassium 3.6 (3.5-5.1) mmol/L Chloride 99 (98-107) mmol/L Carbon Dioxide 28.3 (21.0-32.0) mmol/L Anion Gap 9.3 BUN 14.0 (7.0-18.0) mg/dL Creatinine 0.86 (0.55-1.02) mg/dL Est GFR ( Amer) >60 (>=60) Est GFR (Non-Af Amer) >60 (>=60) BUN/Creatinine Ratio 16.3 Glucose 229 H (74-106) mg/dL Lactate 0.8 (0.4-2.0) mmol/L Calcium 9.0 (8.5-10.1) mg/dL Total Bilirubin 0.2 (0.2-1.0) mg/dL AST 7 L (15-37) U/L ALT 41 (14-59) U/L Alkaline Phosphatase 96 (46-116) U/L Troponin I High Sens 4.1 (4.0-51.3) pg/mL Total Protein 7.7 (6.4-8.2) g/dL Albumin 3.5 (3.4-5.0) g/dL Globulin 4.2 g/dL Albumin/Globulin Ratio 0.8 Lipase 26.0 (16.0-77.0) U/L Serum HCG, Qual Negative (NEGATIVE) Urine Color Lt. yellow (YELLOW) Urine Clarity Clear (CLEAR) Urine pH 6.5 (5.0-9.0) Ur Specific [place] 1.020 (1.005-1.025) Urine Protein Negative (NEG/TRACE) mg/dL Urine Glucose (UA) >=1000 A (NEGATIVE) mg/dL Urine Ketones Negative (NEGATIVE) mg/dL Urine Occult Blood Negative (NEGATIVE) Urine Nitrite Negative (NEGATIVE) Urine Bilirubin Negative (NEGATIVE) Urine Urobilinogen 1.0 (0.2-1.0) EU/dL Ur Leukocyte Esterase Negative (NEGATIVE) Discharge Plan Discharge Chief Complaint: Abdominal Pain Clinical Impression: Abdominal pain Patient Disposition: Home, Self-Care Condition: Good Mode of Transportation: Private Vehicle Prescriptions / Home Meds: No Action metformin 1,000 mg tablet 1,000 mg PO BID Jardiance 10 mg tablet 10 mg PO DAILY aripiprazole 10 mg tablet 10 mg PO QDAY buspirone 10 mg tablet 10 mg PO BID trazodone 50 mg tablet 50 mg PO DAILY fluoxetine 40 mg capsule 40 mg PO QDAY spironolactone 50 mg tablet 50 mg PO QDAY calcium phos,dibas-vitamin D3 77-400 mg-unit tablet 1 tab PO QDAY pantoprazole 40 mg tablet,delayed release (/EC) 40 mg PO Q12H PRN (Reason: indigestion) magnesium 250 mg tablet 250 mg PO DAILY calcium carbonate [Calcium 600] 600 mg calcium (1,500 mg) tablet 600 mg PO DAILY Humulin R U-500 (Conc) Kwikpen 500 unit/mL (3 mL) insulin pen 60 unit SUBCUT TID Rx Instructions: with sliding scale amoxicillin-pot clavulanate 875-125 mg tablet 1 tab PO BID Instructions: Abdominal Pain (ED) Stand Alone Forms: Portal Instructions Referrals: Ariane Wells [Primary Care Provider] - 1 week
--- NOTE | 2023-06-21 20:07 | CT_ITS ---
The [address] [address] Patient Name: MARILIA OSBORNE MRN: [id number] date: 1990 Sex: F Assigned Patient Location: ER Current Patient Location: ER Accession/Order Number: [id number] Exam Date: 06/21/2023 21:28 Report Date: 06/21/2023 21:50 At the request of: STAN THOMPSON Procedure: CT abdomen pelvis wo con EXAM: CT abdomen pelvis wo con TECHNIQUE: Axial CT images were obtained of the abdomen and pelvis without intravenous contrast. Sagittal and coronal reformatted images were also obtained. Dose reduction techniques were achieved by using automated exposure control and/or adjustment of mA and/or kV according to patient size and/or use of iterative reconstruction technique. HISTORY: abdominal pain COMPARISON: 11/15/2022 FINDINGS: Lower chest: The lower lungs are clear. Liver: The liver is homogeneous with normal contours and normal size. Gallbladder: The gallbladder is unremarkable. There is no intra or extrahepatic biliary dilatation. Pancreas: The pancreas is homogeneous without evidence for mass lesion or inflammation. Spleen: The spleen is unremarkable without evidence for mass lesion. Adrenal glands: The adrenal glands are unremarkable Kidneys and bladder: The kidneys are unremarkable with no evidence for mass lesion, hydronephrosis or inflammation. The ureters demonstrate normal caliber. The urinary bladder is unremarkable. GI Tract: Stomach is unremarkable. Visualized small bowel is unremarkable without evidence for obstruction or active inflammation. The appendix is unremarkable.The visualized portion of the large bowel is unremarkable. Reproductive: Unremarkable Lymph nodes: No retroperitoneal or abdominal lymphadenopathy. Vascular: The aorta is not dilated. Peritoneum: No free intraperitoneal air or fluid. No acute inflammation. Abdominal wall: Stable small fat-containing umbilical hernia with a 22 mm diameter neck and measuring up to [address]/CT abdomen pelvis wo con IMPRESSION: Stable small wide neck fat-containing umbilical hernia. No evidence for bowel obstruction. No obstructing urinary tract stone. Electronically authenticated by: CORNELIUS RUCKER Date: 06/21/2023 21:50
[2023-06-21] MEDS: 0.9 % SODIUM CHLORIDE 1,000 ML 999 ML IV (20:19)
[2023-06-21] MEDS: ONDANSETRON PF 4 MG/2 ML VIAL IV (20:20)
[2023-06-21 20:25] LABS: Basophils Absolute Auto 0.1 10^3/uL (0.0-0.1); Basophils Percent Auto 0.6 % (0.2-2.0); Eosinophils Absolute Auto 0.2 10^3/uL (0.0-0.7); Eosinophils Percent Auto 1.6 % (0.9-7.0); Hemoglobin 12.4 g/dL (12.0-16.0); Immature Granulocytes Abs Auto 0.04 10^3/uL (0.00-0.03); Immature Granulocytes Pct Auto 0.3 % (0.0-0.5); Lymphocytes Absolute Auto 4.7 10^3/uL (1.2-3.8); Lymphocytes Percent Auto 37.3 % (20.5-60.0); Mean Corpuscular HGB Conc 33.5 g/dL (29.9-35.2); Mean Corpuscular Hemoglobin 27.1 pg (26.7-34.0); Mean Corpuscular Volume 80.8 fL (81.0-99.0); Mean Platelet Volume 11.4 fL (9.5-13.5); Monocytes Absolute Auto 0.9 10^3/uL (0.3-0.8); Monocytes Percent Auto 6.9 % (1.7-12.0); Neutrophils Absolute Auto 6.7 10^3/uL (1.4-6.5); Neutrophils Percent Auto 53.3 % (43.0-75.0); Platelet Count 275 10^3/uL (150-450); Red Blood Count 4.58 10^6/uL (4.20-5.40); Red Cell Distribution Width 13.2 % (11.0-15.0); White Blood Count 12.6 10^3/uL (4.0-11.0)
[2023-06-21 20:32] LABS: HCG Qualitative NEGATIVE (NEGATIVE)
[2023-06-21 20:35] LABS: Bilirubin Urine NEGATIVE (NEGATIVE); Blood Urine NEGATIVE (NEGATIVE); Clarity Urine CLEAR (CLEAR); Color Urine LT. YELLOW (YELLOW); Glucose Urine UA >=1000 mg/dL (NEGATIVE); Ketones Urine NEGATIVE (NEGATIVE); Leukocyte Esterase Urine NEGATIVE (NEGATIVE); Nitrite Urine NEGATIVE (NEGATIVE); Protein Urine NEGATIVE (NEG/TRACE); Urine Microscopic Indicated NO; pH Urine 6.5 (5.0-9.0)
[2023-06-21 20:42] LABS: Lactate/Lactic Acid 0.8 mmol/L (0.4-2.0)
[2023-06-21 20:51] LABS: Alanine Aminotransferase 41 U/L (14-59); Albumin Globulin Ratio 0.8; Albumin Level 3.5 g/dL (3.4-5.0); Alkaline Phosphatase 96 U/L (46-116); Anion Gap 9.3; Aspartate Amino Transferase 7 U/L (15-37); BUN Creatinine Ratio 16.3; Bilirubin Total 0.2 mg/dL (0.2-1.0); Carbon Dioxide 28.3 mmol/L (21.0-32.0); Chloride 99 mmol/L (98-107); Estimated GFR (African America >60 (>=60); Estimated GFR (Non-African Ame >60 (>=60); Globulin 4.2 g/dL; Glucose 229 mg/dL (74-106); Potassium 3.6 mmol/L (3.5-5.1); Sodium 133 mmol/L (136-145); Total Protein 7.7 g/dL (6.4-8.2); Troponin I High Sensitivity 4.1 pg/mL (4.0-51.3)
[2023-06-21 21:16] VITALS: BP 102/50; PULSE 71; RESP 12; O2SAT 97
[2023-06-21 22:20] VITALS: BP 117/54; PULSE 78; RESP 16; O2SAT 100
[2023-06-21 22:21] VITALS: O2SAT 100
== END 2023-06-21 22:36 | disposition home or self-care (01) ==
PROVIDERS: Emergency Provider Internal Medicine; PCP Nurse Practitioner
DX: R10.9 Unspecified abdominal pain (principal); Z79.899 Other long term (current) drug therapy; Z79.4 Long term (current) use of insulin; F17.210 Nicotine dependence, cigarettes, uncomplicated; Z79.84 Long term (current) use of oral hypoglycemic drugs
CPT/HCPCS: 36415; 74176; 80053; 81003; 83605; 83690; 84484; 84703; 85025; 96374; 99285

== ENCOUNTER 2023-09-01 10:53 | Emergency (ER) | payer MEDICAID, SELFPAY ==
[2023-09-01 11:06] VITALS: BP 135/78; PULSE 84; RESP 18; TEMP 36.7; O2SAT 99; BMI 46.9
--- OUTSIDE RECORDS SUMMARY | 2023-09-01 11:28 | XMS_ITS | CCD ---
Author Name Unknown Address [address] [facility] [address] [place] [address] Organization [facility] Care Team Providers Care Exchange Clerk Name Role Phone AICHHOLZ, GARAGE MANAGER ARIANE Attending Unavailable AICHHOLZ, GARAGE MANAGER ARIANE Admitting Unavailable AICHHOLZ, GARAGE MANAGER ARIANE Primary Care Unavailable JOSE EDUARDO RIVERS V Consulting Unavailable AICHHOLZ, GARAGE MANAGER ARIANE Consulting Unavailable TIMMIS, DR MEJIA Consulting Unavailable AICHHOLZ, GARAGE MANAGER ARIANE Primary Care Unavailable TIMMIS, DR MEJIA Attending Unavailable TIMMIS, DR MEJIA Admitting Unavailable BRIGGSMAGDI Consulting Unavailable PAY ., DR SWANSON Admitting Unavailable PAY ., DR SWANSON Consulting Unavailable AICHHOLZ, GARAGE MANAGER ARIANE Primary Care Unavailable PAY ., DR SWANSON Attending Unavailable AICHHOLZ, GARAGE MANAGER ARIANE Primary Care Unavailable JAIDENECK, DR KLAUDIA Kay Attending Unavailabl e KAITLIN, DR KLAUDIA Kay Admitting Unavailabl e KAITLIN, DR KLAUDIA Kay Consulting Unavailabl e JEYSON BLANTON Consulting Unavailable AICHHOLZ, GARAGE MANAGER ARIANE Primary Care Unavailable GABINO MUÑOZ Attending Unavailable GLEN ., GABINO Admitting Unavailable AICHHOLZ, GARAGE MANAGER ARIANE Primary Care Unavailable JOSE EDUARDO RIVERS V Consulting Unavailable JEYSON BLANTON Consulting Unavailable GABINO MUÑOZ Consulting Unavailable PAY ., DR SWANSON Admitting Unavailable PAY ., DR SWANSON Consulting Unavailable AICHHOLZ, GARAGE MANAGER ARIANE Primary Care Unavailable PAY ., DR SWANSON Attending Unavailable GERALDINE LAZAR Consulting Unavailable CORDELL ., DR DEL RIO Attending Unavailable CORDELL ., DR DEL RIO Admitting Unavailable AICHHOLZ, GARAGE MANAGER ARIANE Primary Care Unavailable HAY ., DR DEL RIO Consulting Unavailable GABINO MUÑOZ Attending Unavailable GLEN ., GABINO Admitting Unavailable AICHHOLZ, GARAGE MANAGER ARIANE Primary Care Unavailable DONTRELL DIAZ Consulting Unavailable GABINO MÑUOZ Consulting Unavailable JOSE EDUARDO RHODES Consulting Unavailable AICHHOLZ, GARAGE MANAGER ARIANE Referring Unavailable AICHHOLZ, GARAGE MANAGER ARIANE Primary Care Unavailable YUKI, ROYAD Attending Unavailable YUKI, AHMAD Admitting Unavailable YUKI, AHMAD Consulting Unavailable AICHHOLZ, GARAGE MANAGER ARIANE Consulting Unavailable AICHHOLZ, GARAGE MANAGER ARIANE Attending Unavailable AICHHOLZ, GARAGE MANAGER ARIANE Admitting Unavailable AICHHOLZ, GARAGE MANAGER ARIANE Primary Care Unavailable HAYDE VAN Consulting Unavailable AICHHOLZ, GARAGE MANAGER ARIANE Consulting Unavailable AICHHOLZ, GARAGE MANAGER ARIANE Attending Unavailable AICHHOLZ, GARAGE MANAGER ARIANE Admitting Unavailable AICHHOLZ, GARAGE MANAGER ARIANE Primary Care Unavailable AMINATA BOURGEOIS Attending Unavailable AMINATA BOURGEOIS Admitting Unavailable JEYSON BLANTON Consulting Unavailable AICHHOLZ, GARAGE MANAGER ARIANE Primary Care Unavailable AMINATA BOURGEOIS Consulting Unavailable AICHHOLZ, GARAGE MANAGER ARIANE Primary Care Unavailable DR ROSA APONTE Consulting Unavailable DR ROSA APONTE Attending Unavailable DR ROSA APONTE Admitting Unavailable ELIDA COWAN Consulting Unava ilable Allergies Allergy Classification Reported Allergen(s) Allergy Type Date of Onset Reaction(s) Facility (1 source) predniSONE Drug Allergy [facility] Repository Problems Active Problems Problem Classification Problem Date Documented Da te Episodic/Chronic Anxiety disorders (3 sources) Anxiety disorder, unspecified; Translations: [ANXIETY DISORDER UNSPECIFIED] Onset: 01-09-2022 Chronic Diabetes mellitus with complications (4 sources) Type 2 diabetes mellitus with hyperglycemia; Translations: [TYPE 2 DM W/HYPERGLYCEMIA] Onset: 04-01-2022 Chronic Diabetes mellitus without complication (1 source) Type 2 diabetes mellitus without complications; Translations: [TYPE 2 DM WITHOUT COMPLICATIONS] Onset: 12-16-2022 Chronic Inflammatory diseases of female pelvic organs (4 sources) Abscess of vulva; Translations: [ABSCESS OF VULVA] Onset: 11-10-2022 Episodic Joint disorders and dislocations; trauma-related (1 source) Unspecified internal derangement of right knee; Translations: [UNS INTERNAL DERANGEMENT RIGHT KNEE] Onset: 07-10-2022 Chronic Nutritional deficiencies (5 sources) Vitamin D deficiency, unspecified; Translations: [VITAMIN D DEFICIENCY UNSPECIFIED] Onset: 04-04-2022 Chronic Other aftercare (1 source) Other ocean transportation intermediary (current) drug therapy; Translations: [OTH CHILD AND FAMILY COUNSELOR 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 THERAPY] Onset: 11-19-2022 Episodic Other aftercare (1 source) [facility] (current) use of oral hypoglycemic drugs; Translations: [CHILD AND FAMILY COUNSELOR USE ORAL 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 DX] Onset: 11-19-2022 Episodic Other aftercare (1 source) ocean transportation intermediary (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; Translations: [[facility] CURRENT USE OF INSULIN] Onset: 11-11-2022 Episodic Other endocrine disorders (1 source) Polycystic ovarian syndrome; Translations: [POLYCYSTIC OVARIAN SYNDROME] Onset: 11-19-2022 Chronic Other non-traumatic joint disorders (4 sources) Pain in right knee; Translations: [PAIN IN RIGHT KNEE] Onset: 12-14-2022 Episodic Other nutritional; endocrine; and metabolic disorders (1 source) Morbid (severe) obesity due to excess calories; Translations: [MORBID SEVERE OBES D/T EXCESS CASA] Onset: 12-16-2022 Chronic Other nutritional; endocrine; and metabolic disorders (1 source) Metabolic syndrome; Translations: [METABOLIC SYNDROME] Onset: 11-19-2022 Chronic Other nutritional; endocrine; and metabolic disorders (1 source) Obesity, unspecified; Translations: [OBESITY UNSPECIFIED] Onset: 11-19-2022 Chronic Other nutritional; endocrine; and metabolic disorders (1 source) Body mass index (BMI) 40.0-44.9, adult; Translations: [BODY MASS INDEX BMI 40.0-44.9 ADULT] Onset: 11-19-2022 Chronic Other nutritional; endocrine; and metabolic disorders (1 source) Body mass index (BMI) 45.0-49.9, adult; Translations: [BODY MASS INDEX BMI 45.0-49.9 ADULT] Onset: 01-14-2022 Chronic Substance-related disorders (1 source) Nicotine dependence, cigarettes, uncomplicated; Translations: [NICOTINE DEPEND CIGARETTES UNCOMP] Onset: 11-11-2022 Chronic Unclassified (3 sources) LOW BACK PAIN, UNSPECIFIED; Translations: [LOW BACK PAIN, UNSPECIFIED] Onset: 11-19-2022 Unclassified (1 source) CONTACT W/AND (SUSP) EXPOS COVID-19; Translations: [CONTACT W/AND (SUSP) EXPOS COVID-19] Onset: 08-20-2022 Unclassified (1 source) COUGH, UNSPECIFIED; Translations: [COUGH, UNSPECIFIED] Onset: 08-20-2022 Past or Other Problems Problem Classification Problem Date Documented Da te Episodic/Chronic Abdominal hernia (4 sources) Umbilical hernia without obstruction or gangrene; Translations: [UMBILICAL HERNIA W/O OBST/GANGRENE] Onset: 01-31-2022 Episodic Abdominal pain (4 sources) Unspecified abdominal pain; Translations: [UNSPECIFIED ABDOMINAL PAIN] Onset: 04-18-2022 Episodic Fever of unknown origin (4 sources) Fever, unspecified; Translations: [FEVER UNSPECIFIED] Onset: 08-18-2022 Episodic Nonspecific chest pain (1 source) Chest pain, unspecified; Translations: [CHEST PAIN UNSPECIFIED] Onset: 01-14-2022 Episodic Other skin disorders (1 source) Hirsutism; Translations: [HIRSUTISM] Onset: 04-04-2022 Episodic Other upper respiratory infections (1 source) Acute upper respiratory infection, unspecified; Translations: [ACUTE UP RESPIRATORY INFECTION UNS] Onset: 08-20-2022 Episodic Otitis media and related conditions (5 sources) Other specified disorders of Eustachian tube, left ear; Translations: [OTH SPEC D/O EUST TUBE LT EAR] Onset: 05-13-2022 Episodic Unclassified (1 source) LOW BACK PAIN, UNSPECIFIED; Translations: [LOW BACK PAIN, UNSPECIFIED] Onset: 11-15-2022 Results Test Name Value Interpretation Reference Range Facility CBC AUTO DIFFon 12-11-2022 BASO # 0.1 103/ul Normal 0.0-0.1 [facility] Comment on above: Performed By: #### P REGU #### [facility] [address] [address] [address] Jaz Barajas Basophils/100 WBC (Bld) 0.8 % Normal 0.2-2.0 [facility] Comment on above: Performed By: #### P REGU #### [facility] [address] [address] [address] Jaz Barajas EO # 0.2 103/ul Normal 0.0-0.7 [facility] Comment on above: Performed By: #### P REGU #### [facility] [address] [place] [address] Dr. Jaz Barajas Eosinophils/100 WBC (Bld) 2.1 % Normal 0.9-7.0 [facility] Comment on above: Performed By: #### P REGU #### [facility] [address] [place] [address] Dr. Jaz Barajas Erythrocyte distribution width (RBC) [Ratio] 13.0 % Normal 11.0-15.0 [facility] Comment on above: Performed By: #### P REGU #### [facility] [address] [place] [address] Dr. Jaz Barajas Hematocrit (Bld) [Volume fraction] 41.2 % Normal 36.0-48.0 [facility] Comment on above: Performed By: #### P REGU #### [facility] [address] [place] [address] Dr. Jaz Barajas Hemoglobin (Bld) [Mass/Vol] 13.7 g/dL Normal 12.0-16.0 [facility] Comment on above: Performed By: #### P REGU #### [facility] [address] [place] [address] Dr. Jaz Barajas IG # 0.02 10e3/ul Normal 0.00-0.03 [facility] Comment on above: Performed By: #### P REGU #### [facility] [address] [place] [address] Dr. Jaz Barajas IG % 0.2 % Normal 0.0-0.5 [facility] Comment on above: Performed By: #### P REGU #### [facility] [address] [place] [address] Dr. Jaz Barajas LYMPH # 3.3 103/ul Normal 1.2-3.8 [facility] Comment on above: Performed By: #### P REGU #### [facility] [address] [place] [address] Dr. Jaz Barajas Lymphocytes/100 WBC (Bld) 34.8 % Normal 20.5-60.0 [facility] Comment on above: Performed By: #### P REGU #### [facility] [address] [place] [address] Dr. Jaz Barajas MANUAL DIFF REQ NO Normal [facility] Comment on above: Performed By: #### P REGU #### [facility] [address] [place] [address] Dr. Jaz Barajas MCH (RBC) [Entitic mass] 26.6 pg Critically low 26.7-34.0 [facility] Comment on above: Performed By: #### P REGU #### [facility] [address] [place] [address] Dr. Jaz Barajas MCHC (RBC) [Mass/Vol] 33.3 g/dL Normal 29.9-35.2 [facility] Comment on above: Performed By: #### P REGU #### [facility] [address] [place] [address] Dr. Jaz Barajas MCV (RBC) [Entitic vol] 79.8 fL Critically low 81.0-99.0 [facility] Comment on above: Performed By: #### P REGU #### [facility] [address] [place] [address] Dr. Jaz Barajas MONO # 0.7 103/ul Normal 0.3-0.8 [facility] Comment on above: Performed By: #### P REGU #### [facility] [address] [place] [address] Dr. Jaz Barajas Monocytes/100 WBC (Bld) 7.3 % Normal 1.7-12.0 [facility] Comment on above: Performed By: #### P REGU #### [facility] [address] [place] [address] Dr. Jaz Barajas NEUT # 5.3 103/ul Normal 1.4-6.5 [facility] Comment on above: Performed By: #### P REGU #### [facility] [address] [place] [address] Dr. Jaz Barajas Neutrophils/100 WBC (Bld) 54.8 % Normal 43.0-75.0 [facility] Comment on above: Performed By: #### P REGU #### [facility] [address] [address] [address] Jaz Barajas Platelet mean volume (Bld) [Entitic vol] 10.7 fL Normal 9.5-13.5 [facility] Comment on above: Performed By: #### P REGU #### [facility] [address] [address] [address] Jaz Barajas PLT 284 103/ul Normal 150-450 [facility] Comment on above: Performed By: #### P REGU #### [facility] [address] [address] [address] Jaz Barajas RBC 5.16 106/ul Normal 4.20-5.40 [facility] Comment on above: Performed By: #### P REGU #### [facility] [address] [place] [address] Dr. Jaz Barajas WBC 9.6 103/ul Normal 4.0-11.0 [facility] Comment on above: Performed By: #### P REGU #### [facility] [address] [place] [address] Dr. Jaz Barajas FREE T4on 12-11-2022 Free T4 [Mass/Vol] 1.10 ng/dL Normal 0.76-1.46 [facility] Comment on above: Performed By: #### P ROGLCM #### [facility] [address] [place] [address] Dr. Jaz Barajas LIPID PROFILEon 12-11-2022 CHOL-HDL RATIO NORM SEE BELOW Normal [facility] Comment on above: Result Comment: 3.3 - 4.4 LOW RISK 4.4 - 7.1 AVERAGE RISK 7.1 - 11.0 MODERATE RISK >11.0 HIGH RISK Performed By: #### L IPID, TSH, CMP ####[facility] [address] [address]Dr. Jaz Barajas Cholesterol [Mass/Vol] 168 mg/dL Normal <=200 [facility] Comment on above: Performed By: #### L IPID, TSH, CMP ####[facility] [address] [address]Dr. Jaz Barajas Cholesterol in HDL [Mass/Vol] 32 mg/dL Critically low 40-60 [facility] Comment on above: Performed By: #### L IPID, TSH, CMP ####[facility] [address] [address]Dr. Jaz Barajas Cholesterol in LDL [Mass/Vol] 121.8 mg/dL Normal [facility] Comment on above: Performed By: #### L IPID, TSH, CMP ####[facility] [address] [address]Dr. Jaz Barajas Cholesterol.total/ Cholesterol in HDL [Mass ratio] 5.3 {ratio} Normal [facility] Comment on above: Performed By: #### L IPID, TSH, CMP ####[facility] [address] [address]Dr. Jaz aBrajas HDL NORMAL > or = 60 mg/dl - LO W CARDIOVASCULAR RISK <40 mg/dl - HIGH CARDIOVASCULAR RISK Normal [facility] Comment on above: Performed By: #### L IPID, TSH, CMP ####[facility] [address] [address]Dr. Jaz Barajas LDL CALC NORMAL SEE BELOW Normal [facility] Comment on above: Result Comment: <100 mg/dl OPTIMAL 100 - 129 mg/dl NEAR OR ABOVE OPTIMAL 130 - 159 mg/dl BORDERLINE HIGH 160 - 189 mg/dl HIGH >190 mg/dl VERY HIGH Performed By: #### L IPID, TSH, CMP ####[facility] [address] [address]Dr. Jaz Barajas Triglyceride [Mass/Vol] 71 mg/dL Normal <=150 [facility] Comment on above: Performed By: #### L IPID, TSH, CMP ####[facility] [address] [address]Dr. Jaz Barajas VLDL CALC 14.2 mg/dL Normal [facility] Comment on above: Performed By: #### L IPID, TSH, CMP ####[facility] [address] [address]Dr. Jaz Barajas MICROALBUMIN, RAND URon 04-1 mALB <1.3 Normal <=30.0 [facility] Comment on above: Performed By: #### P REGU #### [facility] [address] [place], [place] [address] Dr. Jaz Barajas PROF 14(COMP METB)on 023 Albumin [Mass/Vol] 3.7 g/dL Normal 3.4-5.0 [facility] Comment on above: Performed By: #### L IPID, TSH, CMP ####[facility] [address] [id number]. Jaz Barajas Albumin/Globulin [Mass ratio] 0.8 {ratio} Normal [facility] Comment on above: Performed By: #### L IPID, TSH, CMP ####[facility] [address] [id number]. Jaz Barajas ALP [Catalytic activity/Vol] 90 U/L Normal 46-116 [facility] Comment on above: Performed By: #### L IPID, TSH, CMP ####[facility] [address] [id number]. Jaz Barajas ALT [Catalytic activity/Vol] 106 U/L Critically high 14-59 [facility] Comment on above: Performed By: #### L IPID, TSH, CMP ####[facility] [address] [id number]. Jaz Barajas Anion gap [Moles/Vol] 12.5 mmol/L Normal [facility] Comment on above: Performed By: #### L IPID, TSH, CMP ####[facility] [address] [id number]. Jaz Barajas AST [Catalytic activity/Vol] 43 U/L Critically high 15-37 [facility] Comment on above: Performed By: #### L IPID, TSH, CMP ####[facility] [address] [id number] Barajas Bilirubin [Mass/Vol] 0.4 mg/dL Normal 0.2-1.0 [facility] Comment on above: Performed By: #### L IPID, TSH, CMP ####[facility] [address] [id number]. Jaz Barajas Calcium [Mass/Vol] 9.0 mg/dL Normal 8.5-10.1 [facility] Comment on above: Performed By: #### L IPID, TSH, CMP ####[facility] [address] [address]Dr. Jaz Barajas Chloride [Moles/Vol] 104 mmol/L Normal 98-107 [facility] Comment on above: Performed By: #### L IPID, TSH, CMP ####[facility] [address] [place], [place] [address]Dr. Jaz Barajas CO2 [Moles/Vol] 25.8 mmol/L Normal 21.0-32.0 [facility] Comment on above: Performed By: #### L IPID, TSH, CMP ####[facility] [address] [place], [place] [address]Dr. Jaz Barajas Creatinine [Mass/Vol] 0.76 mg/dL Normal 0.55-1.02 [facility] Comment on above: Performed By: #### L IPID, TSH, CMP ####[facility] [address] [place], [place] [address]Dr. Jaz Barajas EGFR-AF KUWAITI >60 Normal >=60 [facility] Comment on above: Performed By: #### L IPID, TSH, CMP ####[facility] [address] [place], [place] [address]Dr. Jaz Barajas EGFR-NON AF [place]I >60 Normal >=60 [facility] Comment on above: Performed By: #### L IPID, TSH, CMP ####[facility] [address] [place], [place] [address]Dr. Jaz Barajas Globulin (S) [Mass/Vol] 4.4 g/dL Normal [facility] Comment on above: Performed By: #### L IPID, TSH, CMP ####[facility] [address] [place], [place] [address]Dr. Jaz Barajas Glucose [Mass/Vol] 228 mg/dL Critically high 74-106 [facility] Comment on above: Performed By: #### L IPID, TSH, CMP ####[facility] [address] [address]Dr. Jaz Barajas Potassium [Moles/Vol] 4.3 mmol/L Normal 3.5-5.1 [facility] Comment on above: Performed By: #### L IPID, TSH, CMP ####[facility] [address] [place], [place] [address]Dr. Jaz Barajas Protein [Mass/Vol] 8.1 g/dL Normal 6.4-8.2 [facility] Comment on above: Performed By: #### L IPID, TSH, CMP ####[facility] [address] [place], [place] [address]Dr. Hannahisela Barajas Sodium [Moles/Vol] 138 mmol/L Normal 136-145 [facility] Comment on above: Performed By: #### L IPID, TSH, CMP ####[facility] [address] [place], [place] [address]Dr. Jaz Karl Urea nitrogen [Mass/Vol] 21.0 mg/dL Critically high 7.0-18.0 [facility] Comment on above: Performed By: #### L IPID, TSH, CMP ####[facility] [address] [place], [place] [address]Dr. Jaz Barajas Urea nitrogen/Creatinin e [Mass ratio] 27.6 mg/mg Normal [facility] Comment on above: Performed By: #### L IPID, TSH, CMP ####[facility] [address] [place], [place] [address]Dr. Jaz Karl TSHon 12-11-2022 TSH 3.602 uIU/mL Normal 0.358-3.740 [facility] Comment on above: Performed By: #### L IPID, TSH, CMP ####[facility] [address] [place], [place] [address]Dr. Jaz Barajas UA RANDOM W/MICROSCOPICon BACTERIA NONE SEEN Normal NONE SEEN [facility] Comment on above: Performed By: #### U AMIC ####[facility] [address] [address]Dr. Jaz Barajas Bilirubin Ql (U) Negative Normal NEGATIVE [facility] Comment on above: Performed By: #### U AMIC ####[facility] [address] [address]Dr. Jaz Barajas CAST NONE SEEN Normal NONE SEEN [facility] Comment on above: Performed By: #### U AMIC ####[facility] [address] [address]Dr. Jaz Barajas Clarity (U) CLEAR Normal CLEAR [facility] Comment on above: Performed By: #### U AMIC ####[facility] [address] [place], [place] [address]Dr. Jaz Barajas Color (U) LT. YELLOW Normal YELLOW [facility] Comment on above: Performed By: #### U AMIC ####[facility] [address] [place], [place] [address]Dr. Jaz Barajas Crystals LM Nom (Urine sed) NONE SEEN Normal NONE SEEN [facility] Comment on above: Performed By: #### U AMIC ####[facility] [address] [place], [place] [address]Dr. Jaz Barajas Epithelial cells LM Ql (Urine sed) RARE Normal NONE SEEN /RARE [facility] Comment on above: Performed By: #### U AMIC ####[facility] [address] [address]Dr. Jaz Barajas Glucose Ql (U) >1000 Abnormal NEGATIVE [facility] Comment on above: Performed By: #### U AMIC ####[facility] [address] [address]Dr. Jaz Barajas Hemoglobin Ql (U) Negative Normal NEGATIVE [facility] Comment on above: Performed By: #### U AMIC ####[facility] [address] [address]Dr. Jaz Barajas Ketones Ql (U) Negative Normal NEGATIVE [facility] Comment on above: Performed By: #### U AMIC ####[facility] [address] [address]Dr. Jaz Barajas LEUKOCYTES Negative Normal NEGATIVE [facility] Comment on above: Performed By: #### U AMIC ####[facility] [address] [address]Dr. Jaz Barajas MUCOUS NONE SEEN Normal NONE SEEN [facility] Comment on above: Performed By: #### U AMIC ####[facility] [address] [address]Dr. Jaz Barajas Nitrite Ql (U) Negative Normal NEGATIVE [facility] Comment on above: Performed By: #### U AMIC ####[facility] [address] [place], [place] [address]Dr. Jaz Barajas pH (U) 6.0 [pH] Normal 5-9 [facility] Comment on above: Performed By: #### U AMIC ####[facility] [address] [place], [place] [address]Dr. Jaz Barajas RBC NONE SEEN Abnormal 0-2 [facility] Comment on above: Performed By: #### U AMIC ####[facility] [address] [place], [place] [address]Dr. Jaz Barajas SPEC GRAVITY 1.020 Normal 1.005-<=1.02 5 [facility] Comment on above: Performed By: #### U AMIC ####[facility] [address] [place], [place] [address]Dr. Jaz Barajas UA PROTEIN Negative Normal NEGATIVE/ TRACE [facility] Comment on above: Performed By: #### U AMIC ####[facility] [address] [place], [place] [address]Dr. Jaz Barajas Urobilinogen Qn (U) 0.2 {Oxana'U}/dL Normal 0.2 - 1.0 [facility] Comment on above: Performed By: #### U AMIC ####[facility] [address] [place], [place] [address]Dr. Jaz Karl WBC 0-2 Abnormal NONE SEEN [facility] Comment on above: Performed By: #### U AMIC ####[facility] [address] [address]Dr. Jaz Barajas VITAMIN D 25 OHon 12-11-2022 VIT D 25-OH 30.9 ng/mL Normal [facility] Comment on above: Performed By: #### P VALENTINELCM #### [facility] [address] [place] [address] Dr. Jaz Barajas VIT D RANGES SEE BELOW Normal [facility] Comment on above: Result Comment: <20 ng/mL Vit D deficient 20 - <30 ng/mL Vit D insufficient 30 - 100 ng/mL Vit D sufficient >100 ng/mL Potential Toxicity Performed By: #### P ROGLCM #### [facility] [address] [place] [address] Dr. Jaz Barajas CBC AUTO DIFFon 11-15-2022 BASO # 0.1 103/ul Normal 0.0-0.1 [facility] Comment on above: Performed By: #### P ROGLCM #### [facility] [address] [place] [address] Dr. Jaz Barajas Basophils/100 WBC (Bld) 0.6 % Normal 0.2-2.0 [facility] Comment on above: Performed By: #### P ROGLCM #### [facility] [address] [place] [address] Dr. Jaz Barajas EO # 0.2 103/ul Normal 0.0-0.7 [facility] Comment on above: Performed By: #### P ROGLCM #### [facility] [address] [place] [address] Dr. Jaz Barajas Eosinophils/100 WBC (Bld) 2.0 % Normal 0.9-7.0 [facility] Comment on above: Performed By: #### P ROGLCM #### [facility] [address] [place] [address] Dr. Jaz Barajas Erythrocyte distribution width (RBC) [Ratio] 13.3 % Normal 11.0-15.0 [facility] Comment on above: Performed By: #### P ROGLCM #### [facility] [address] [place] [address] Dr. Jaz Barajas Hematocrit (Bld) [Volume fraction] 40.4 % Normal 36.0-48.0 [facility] Comment on above: Performed By: #### P ROGLCM #### [facility] [address] [place] [address] Dr. Jaz Barajas Hemoglobin (Bld) [Mass/Vol] 13.5 g/dL Normal 12.0-16.0 [facility] Comment on above: Performed By: #### P ROGLCM #### [facility] [address] [place] [address] Dr. Jaz Barajas IG # 0.03 10e3/ul Normal 0.00-0.03 [facility] Comment on above: Performed By: #### P ROGLCM #### [facility] [address] [place] [address] Dr. Jaz Barajas IG % 0.3 % Normal 0.0-0.5 [facility] Comment on above: Performed By: #### P ROGLCM #### [facility] [address] [place] [address] Dr. Jaz Barajas LYMPH # 3.3 103/ul Normal 1.2-3.8 [facility] Comment on above: Performed By: #### P ROGLCM #### [facility] [address] [place] [address] Dr. Jaz Barajas Lymphocytes/100 WBC (Bld) 30.7 % Normal 20.5-60.0 [facility] Comment on above: Performed By: #### P ROGLCM #### [facility] [address] [place] [address] Dr. Jaz Barajas MANUAL DIFF REQ NO Normal [facility] Comment on above: Performed By: #### P ROGLCM #### [facility] [address] [place] [address] Dr. Jaz Barajas MCH (RBC) [Entitic mass] 26.6 pg Critically low 26.7-34.0 [facility] Comment on above: Performed By: #### P ROGLCM #### [facility] [address] [place] [address] Dr. Jaz Barajas MCHC (RBC) [Mass/Vol] 33.4 g/dL Normal 29.9-35.2 [facility] Comment on above: Performed By: #### P ROGLCM #### [facility] [address] [address] [address] Jaz Barajas MCV (RBC) [Entitic vol] 79.7 fL Critically low 81.0-99.0 [facility] Comment on above: Performed By: #### P ROGLCM #### [facility] [address] [address] [address] Jaz Barajas MONO # 0.8 103/ul Normal 0.3-0.8 [facility] Comment on above: Performed By: #### P ROGLCM #### [facility] [address] [address] [address] Jaz Barajas Monocytes/100 WBC (Bld) 7.4 % Normal 1.7-12.0 [facility] Comment on above: Performed By: #### P ROGLCM #### [facility] [address] [address] [address] Jaz Barajas NEUT # 6.3 103/ul Normal 1.4-6.5 [facility] Comment on above: Performed By: #### P ROGLCM #### [facility] [address] [address] [address] Jaz Barajas Neutrophils/100 WBC (Bld) 59.0 % Normal 43.0-75.0 [facility] Comment on above: Performed By: #### P ROGLCM #### [facility] [address] [address] [address] Jaz Barajas Platelet mean volume (Bld) [Entitic vol] 10.7 fL Normal 9.5-13.5 [facility] Comment on above: Performed By: #### P ROGLCM #### [facility] [address] [address] [address] Jaz Barajas PLT 326 103/ul Normal 150-450 [facility] Comment on above: Performed By: #### P ROGLCM #### [facility] [address] [place], [place] [address] Dr. Jaz Barajas RBC 5.07 106/ul Normal 4.20-5.40 [facility] Comment on above: Performed By: #### P ROGLCM #### [facility] [address] [place], [place] [address] Dr. Jaz Barajas WBC 10.7 103/ul Normal 4.0-11.0 [facility] Comment on above: Performed By: #### P ROGLCM #### [facility] [address], [place] [address] ABD/PELV W CONon 11-16-[address] ABD/PELV W CON EXAMINATION: CT ABD/ PELV W CON HISTORY: Generalized abdominal pain; technologist notes state right upper quadrant pain since 10:00 PM. COMPARISON: CT abdomen/pelvis dated 04/10/2022. TECHNIQUE: Routine CT abdomen/pelvis with intravenous contrast. Dose reduction techniques were achieved by using automated exposure control and/or adjustment of mA and/or kV according to patient size and/or use of iterative reconstruction technique. FINDINGS: Lower chest: Unremarkable. Solid organs: The liver, gallbladder, biliary tree, pancreas, spleen, bilateral adrenal glands and the bilateral kidneys are unremarkable. Bowel: Moderate amount of stool within the colon. The colon is unremarkable. The appendix is unremarkable. The distal esophagus, stomach and small bowel are unremarkable. The bowel gas pattern is nonobstructive. Vascularity: The abdominal aorta is normal size and unremarkable. The inferior vena cava is unremarkable. There is an accessory retroaortic left renal vein. Inflammation: No free air, free fluid or inflammatory reaction. Lymphadenopathy: No pathologically enlarged lymphadenopathy. Pelvis: The urinary bladder is unremarkable. The uterus is unremarkable. There is a small corpus luteum cyst within the left ovary. Osseous: Stable small fat-containing umbilical hernia. Small endplate spurs along the thoracic spine. IMPRESSION: Nonobstructive bowel gas pattern with a moderate amount of stool within the colon. There is no inflammatory process. Small corpus ileum cyst within the left ovary. Stable small fat-containing umbilical hernia. Electronically authenticated by: GERALDINE LAZAR Date: 2022-11-15 09:13 Normal [facility] ER URINE PROFILEon 3 Bilirubin Ql (U) Negative Normal NEGATIVE [facility] Comment on above: Performed By: #### P ROGLCM #### [facility] [address] [address] [address] Jaz Barajas Clarity (U) CLEAR Normal CLEAR [facility] Comment on above: Performed By: #### P ROGLCM #### [facility] [address] [place] [address] Dr. Jaz Barajas Color (U) LT. YELLOW Normal YELLOW [facility] Comment on above: Performed By: #### P ROGLCM #### [facility] [address] [address] [address] Jaz Barajas ERUAHD A micrscopic examina tion will be performed if indicated. Normal [facility] Comment on above: Performed By: #### P ROGLCM #### [facility] [address] [place] [address] Dr. Jaz Barajas Glucose Ql (U) 1000 mg/dl Abnormal NEGATIVE [facility] Comment on above: Performed By: #### P ROGLCM #### [facility] [address] [place] [address] Dr. Jaz Barajas Hemoglobin Ql (U) Negative Normal NEGATIVE [facility] Comment on above: Performed By: #### P ROGLCM #### [facility] [address] [place] [address] Dr. Jaz Barajas Ketones Ql (U) Negative Normal NEGATIVE [facility] Comment on above: Performed By: #### P ROGLCM #### [facility] [address] [address] [address] Jaz Barajas LEUKOCYTES Negative Normal NEGATIVE [facility] Comment on above: Performed By: #### P ROGLCM #### [facility] [address] [address] [address] Jaz Barajas Nitrite Ql (U) Negative Normal NEGATIVE [facility] Comment on above: Performed By: #### P ROGLCM #### [facility] [address] [place] [address] Dr. Jaz Barajas pH (U) 6.0 [pH] Normal 5-9 [facility] Comment on above: Performed By: #### P ROGLCM #### [facility] [address] [address] [address] Jaz Barajas SPEC GRAVITY 1.015 Normal 1.005-<=1.02 5 [facility] Comment on above: Performed By: #### P ROGLCM #### [facility] [address] [address] [address] aJz Barajas UA PROTEIN Negative Normal NEGATIVE/ TRACE [facility] Comment on above: Performed By: #### P ROGLCM #### [facility] [address] [address] [address] Jaz Barajas UR MICRO IND NOT INDICATED Normal [facility] Comment on above: Performed By: #### P ROGLCM #### [facility] [address] [address] [address] Jaz Barajas Urobilinogen Qn (U) 0.2 {Oxana'U}/dL Normal 0.2 - 1.0 [facility] Comment on above: Performed By: #### P ROGLCM #### [facility] [address] [address] [address] Jaz Barajas LIPASEon 11-15-2022 Lipase [Catalytic activity/Vol] 73.0 U/L Normal 73.0-393.0 [facility] Comment on above: Performed By: #### P REGU #### [facility] [address] [address] [address] Jaz Barajas URon 11-15-2022 , QUAL Negative Normal NEGATIVE [facility] Comment on above: Performed By: #### E RUR, PREGU ####[facility] [address] [address]Dr. Jaz Barajas PROF 14(COMP METB)on 023 Albumin [Mass/Vol] 3.6 g/dL Normal 3.4-5.0 [facility] Comment on above: Performed By: #### P REGU #### [facility] [address] [place] [address] Dr. Jaz Braajas Albumin/Globulin [Mass ratio] 0.9 {ratio} Normal [facility] Comment on above: Performed By: #### P REGU #### [facility] [address] [address] [address] Jaz Barajas ALP [Catalytic activity/Vol] 98 U/L Normal 46-116 [facility] Comment on above: Performed By: #### P REGU #### [facility] [address] [address] [address] Jaz Barajas ALT [Catalytic activity/Vol] 138 U/L Critically high 14-59 [facility] Comment on above: Performed By: #### P REGU #### [facility] [address] [address] [address] Jaz Barajas Anion gap [Moles/Vol] 13.4 mmol/L Normal [facility] Comment on above: Performed By: #### P REGU #### [facility] [address] [address] [address] Jaz Barajas AST [Catalytic activity/Vol] 61 U/L Critically high 15-37 [facility] Comment on above: Performed By: #### P REGU #### [facility] [address] [address] [address] Jaz Braajas Bilirubin [Mass/Vol] 0.2 mg/dL Normal 0.2-1.0 [facility] Comment on above: Performed By: #### P REGU #### [facility] [address] [address] [address] Jaz Barajas Calcium [Mass/Vol] 9.4 mg/dL Normal 8.5-10.1 [facility] Comment on above: Performed By: #### P REGU #### [facility] [address] [address] [address] Jaz Barajas Chloride [Moles/Vol] 104 mmol/L Normal 98-107 [facility] Comment on above: Performed By: #### P REGU #### [facility] [address] [address] [address] Jaz Barajas CO2 [Moles/Vol] 24.7 mmol/L Normal 21.0-32.0 [facility] Comment on above: Performed By: #### P REGU #### [facility] [address] [address] [address] Jaz Barajas Creatinine [Mass/Vol] 0.69 mg/dL Normal 0.55-1.02 [facility] Comment on above: Performed By: #### P REGU #### [facility] [address] [address] [address] Jaz Barajas EGFR-AF [place]I >60 Normal >=60 [facility] Comment on above: Performed By: #### P REGU #### [facility] [address] [address] [address] Jaz Barajas EGFR-NON AF [place] >60 Normal >=60 [facility] Comment on above: Performed By: #### P REGU #### [facility] [address] [address] [address] Jaz Barajas Globulin (S) [Mass/Vol] 4.2 g/dL Normal [facility] Comment on above: Performed By: #### P REGU #### [facility] [address] [address] [address] Jaz Barajas Glucose [Mass/Vol] 339 mg/dL Critically high 74-106 [facility] Comment on above: Performed By: #### P REGU #### [facility] [address] [address] [address] Jaz Barajas Potassium [Moles/Vol] 4.1 mmol/L Normal 3.5-5.1 [facility] Comment on above: Performed By: #### P REGU #### [facility] [address] [address] [address] Jaz Barajas Protein [Mass/Vol] 7.8 g/dL Normal 6.4-8.2 [facility] Comment on above: Performed By: #### P REGU #### [facility] [address] [address] [address] Jaz Barajas Sodium [Moles/Vol] 138 mmol/L Normal 136-145 [facility] Comment on above: Performed By: #### P REGU #### [facility] [address] [place], [place] [address] Dr[address] Jaz Barajas Urea nitrogen [Mass/Vol] 17.0 mg/dL Normal 7.0-18.0 [facility] Comment on above: Performed By: #### P REGU #### [facility] [address] [place], [place] [address] Dr. Jaz Barajas Urea nitrogen/Creatinin e [Mass ratio] 24.6 mg/mg Normal [facility] Comment on above: Performed By: #### P REGU #### [facility] [address] [place], [place] [address] Dr. Jaz Barajas CULTURE WOUNDon 11-13-2022 CULTURE WOUND Culture Observations : NO GROWTH OF ANAEROBES AT 72 HOURS. Isolate 1 Streptococcus agalactiae Heavy growth of ORGANISM 1 Streptococcus agalactiae ANTIBIOTIC M.I.C RX STATUS Benzylpenicillin <=0.06 S F Ampicillin <=0.25 S F Cefotaxime <=0.12 S F Ceftriaxone <=0.12 S F Levofloxacin 0.5 S F Inducible Clindamycin Resistance Neg NEG F Erythromycin >=8 R F Clindamycin >=1 R F Linezolid <=2 S F Vancomycin 0.5 S F Tetracycline >=16 R F Normal [facility] Comment on above: Performed By: #### W OUNDCX ####[facility] [address] [place], [place] [address]YaDr. Jaz Barajas Covid-19 PCR (CVDTB)on 08-01 SARS-CoV-2 (COVID-19) RNA REANNA+probe Ql (Unsp spec) Not detected Normal NOT DETECTED [facility] Comment on above: Result Comment: This test is not yet approved or cleared by the [place] FDA. When there are no FDA-approved or cleared tests available, and other criteria are met, FDA can make tests available under an emergency access mechanism called an Emergency Use Authorization (EUA). The EUA for this test is supported by the [place] of Health and Human Service's (HHS's) declaration that circumstances exist to justify the emergency use of in vitro diagnostics for the detection and/or diagnosis of the virus that causes COVID-19. This EUA will remain in effect (meaning this test can be used) for the duration of the COVID-19 declaration justifying emergency of IVDs, unless it is terminated or revoked by FDA (after which the test may no longer be used). When diagnostic testing is negative, the possibility of a false negative should be considered in the context of a patient's recent exposures and the presence of clinical signs and symptoms consistent with SARS-CoV-2. Performed By: #### P ROGLCM #### [facility] [address] [place] [address] Dr. Jaz Barajas INFLUENZA A AND B [facility] 08-18 INFLUANE SEE BELOW Normal [facility] Comment on above: Result Comment: Nega tive for Flu A protein angiten. Infection due to Flu A cannot be ruled out. Flu A angiten in the sample may be below the detection limit of the test. Performed By: #### P ROGLCM #### [facility] [address] [place] [address] Dr. Jaz Barajas INFLUBNEG SEE BELOW Normal [facility] Comment on above: Result Comment: Nega tive for Flu B protein antigen. Infection due to Flu B cannot be ruled out. Flu B antigen in the sample may be below the detection limit of the test. Performed By: #### P ROGLCM #### [facility] [address] [place] [address] Dr. Jaz Barajas INFLUENZA A AG Negative Normal NEGATIVE SEE COMMENT [facility] Comment on above: Performed By: #### P ROGLCM #### [facility] [address] [place] [address] Dr. Jaz Barajas INFLUENZA B AG Negative Normal NEGATIVE SEE COMMENT [facility] Comment on above: Performed By: #### P ROGLCM #### [facility] [address] [place] [address] Dr. Jaz Barajas INTERNAL CONTROLS Within Normal Limits Normal Wi thin Normal Limits [facility] Comment on above: Performed By: #### P ROGLCM #### [facility] [address] [place] [address] Dr. Jaz Barajas POINT OF CARE GLUCOSEon 12- Glucose [Mass/Vol] 310 mg/dL Critically high 74-106 T he [facility] Comment on above: Performed By: #### P ROGLCM #### [facility] [address] [place], [place] [address] Dr. Jaz Barajas XR CHEST 1 Von 08-18-2022 XR CHEST 1 V EXAMINATION: XR CHES T 1 V HISTORY: Cough COMPARISON: 01/09/2022 chest x-ray TECHNIQUE: Portable chest FINDINGS: The lung parenchyma is free of consolidation or infiltrate. No pneumothorax or pleural effusion. The cardiac, mediastinal and hilar contours are normal. The visualized osseous structures exhibit no gross abnormality. IMPRESSION: Normal chest x-ray Electronically authenticated by: JOSE EDUARDO RHODES Date: 2022-08-18 15:33 Normal [facility] PREG HCG QUALon 05-14-2022 , QUAL Negative Normal NEGATIVE [facility] Comment on above: Performed By: #### P REG ####[facility] [address] [address]Dr. Jaz Barajas CBC AUTO DIFFon 05-08-2022 BASO # 0.1 103/ul Normal 0.0-0.1 [facility] Comment on above: Performed By: #### C BC ####[facility] [address] [address]Dr. Jaz Barajas Basophils/100 WBC (Bld) 0.6 % Normal 0.2-2.0 [facility] Comment on above: Performed By: #### C BC ####[facility] [address] [id number]. Jaz Barajas EO # 0.2 103/ul Normal 0.0-0.7 [facility] Comment on above: Performed By: #### C BC ####[facility] [address] [address]Dr. Jaz Barajas Eosinophils/100 WBC (Bld) 1.5 % Normal 0.9-7.0 [facility] Comment on above: Performed By: #### C BC ####[facility] [address] [address]Dr. Jaz Barajas Erythrocyte distribution width (RBC) [Ratio] 12.6 % Normal 11.0-15.0 [facility] Comment on above: Performed By: #### C BC ####[facility] [address] [place] [address]Dr. Jaz Barajas Hematocrit (Bld) [Volume fraction] 38.7 % Normal 36.0-48.0 [facility] Comment on above: Performed By: #### C BC ####[facility] [address] [place] [address]Dr. Jaz Barajas Hemoglobin (Bld) [Mass/Vol] 12.9 g/dL Normal 12.0-16.0 [facility] Comment on above: Performed By: #### C BC ####[facility] [address] [place], [place] [address]Dr. Jaz Barajas IG # 0.02 10e3/ul Normal 0.00-0.03 [facility] Comment on above: Performed By: #### C BC ####[facility] [address] [place], [place] [address]Dr. Jaz Barajas IG % 0.2 % Normal 0.0-0.5 [facility] Comment on above: Performed By: #### C BC ####[facility] [address] [place], [place] [address]DrPratibha Barajas LYMPH # 3.5 103/ul Normal 1.2-3.8 [facility] Comment on above: Performed By: #### C BC ####[facility] [address] [place], [place] [address]Dr. Jaz Barajas Lymphocytes/100 WBC (Bld) 34.4 % Normal 20.5-60.0 [facility] Comment on above: Performed By: #### C BC ####[facility] [address] [place], [place] [address]DrPratibha Barajas MANUAL DIFF REQ NO Normal [facility] Comment on above: Performed By: #### C BC ####[facility] [address] [place], [place] [address]DrPratibha Barajas MCH (RBC) [Entitic mass] 27.2 pg Normal 26.7-34.0 [facility] Comment on above: Performed By: #### C BC ####[facility] [address] [place] [id number]. Jaz [facility] MCHC (RBC) [Mass/Vol] 33.3 g/dL Normal 29.9-35.2 [facility] Comment on above: Performed By: #### C BC ####[facility] [address] [id number] Barajas MCV (RBC) [Entitic vol] 81.6 fL Normal 81.0-99.0 [facility] Comment on above: Performed By: #### C BC ####[facility] [address] [place], [place] [address]Dr. Jaz Barajas MONO # 0.7 103/ul Normal 0.3-0.8 [facility] Comment on above: Performed By: #### C BC ####[facility] [address] [place], [place] [address]Dr. Jaz Barajas Monocytes/100 WBC (Bld) 7.0 % Normal 1.7-12.0 [facility] Comment on above: Performed By: #### C BC ####[facility] [address] [place], [place] [address]Dr. Jaz Barajas NEUT # 5.7 103/ul Normal 1.4-6.5 [facility] Comment on above: Performed By: #### C BC ####[facility] [address] [place], [place] [address]DrPratibha Barajas Neutrophils/100 WBC (Bld) 56.3 % Normal 43.0-75.0 [facility] Comment on above: Performed By: #### C BC ####[facility] [address] [place], [place] [address]DrPratibha Barajas Platelet mean volume (Bld) [Entitic vol] 11.0 fL Normal 9.5-13.5 [facility] Comment on above: Performed By: #### C BC ####[facility] [address] [place], [place] [address]Dr. Jaz Barajas PLT 274 103/ul Normal 150-450 The [facility] Comment on above: Performed By: #### C BC ####[facility] [address] [place], [place] [address]Jl. Jaz Barajas RBC 4.74 106/ul Normal 4.20-5.40 [facility] Comment on above: Performed By: #### C BC ####[facility] [address] [place], [place] [address]AzPratibha Barajas WBC 10.0 103/ul Normal 4.0-11.0 [facility] Comment on above: Performed By: #### C BC ####[facility] [address] [place], [place] [address]PrPratibha Barajas Covid-19 PCR ([facility])on SARS-CoV-2 (COVID-19) RNA REANNA+probe Ql (Unsp spec) Not detected Normal NOT DETECTED [facility] Comment on above: Result Comment: This test is not yet approved or cleared by the [place] FDA. When there are no FDA-approved or cleared tests available, and other criteria are met, FDA can make tests available under an emergency access mechanism called an Emergency Use Authorization (EUA). The EUA for this test is supported by the Clerk Analyst of Health and Human Service's (HHS's) declaration that circumstances exist to justify the emergency use of in vitro diagnostics for the detection and/or diagnosis of the virus that causes COVID-19. This EUA will remain in effect (meaning this test can be used) for the duration of the COVID-19 declaration justifying emergency of IVDs, unless it is terminated or revoked by FDA (after which the test may no longer be used). When diagnostic testing is negative, the possibility of a false negative should be considered in the context of a patient's recent exposures and the presence of clinical signs and symptoms consistent with SARS-CoV-2. Performed By: #### P REGU #### [facility] [address] [place], [place] [address] Dr. Jaz Baraajs PROF CHEM 8 (BAS METB)on Anion gap [Moles/Vol] 10.1 mmol/L Normal [facility] Comment on above: Performed By: #### P REGU #### [facility] [address] [place] [address] [address] Jaz Barajas Calcium [Mass/Vol] 9.0 mg/dL Normal 8.5-10.1 [facility] Comment on above: Performed By: #### P REGU #### [facility] [address] [place] [address] [address] Jaz Barajas Chloride [Moles/Vol] 99 mmol/L Normal 98-107 [facility] Comment on above: Performed By: #### P REGU #### [facility] [address] [place] [address] [address] Jaz Barajas CO2 [Moles/Vol] 29.1 mmol/L Normal 21.0-32.0 [facility] Comment on above: Performed By: #### P REGU #### [facility] [address] [place] [address] Dr. Jaz Barajas Creatinine [Mass/Vol] 0.80 mg/dL Normal 0.55-1.02 [facility] Comment on above: Performed By: #### P REGU #### [facility] [address] [place] [address] [address] Jaz Barajas EGFR-AF KUWAITI >60 Normal >=60 [facility] Comment on above: Performed By: #### P REGU #### [facility] [address] [place] [address] Dr. Jaz Barajas EGFR-NON AF KUWAITI >60 Normal >=60 [facility] Comment on above: Performed By: #### P REGU #### [facility] [address] [place] [address] Dr. Jaz Barajas Glucose [Mass/Vol] 217 mg/dL Critically high 74-106 [facility] Comment on above: Performed By: #### P REGU #### [facility] [address] [place] [address] [address] Jaz Barajas Potassium [Moles/Vol] 4.2 mmol/L Normal 3.5-5.1 [facility] Comment on above: Result Comment: spec imen slightly hemolyzed may affect K+ result Performed By: #### P REGU #### [facility] [address] [place], [place] [address] Dr. Jaz Barajas Sodium [Moles/Vol] 134 mmol/L Critically low 136-145 Th e [facility] Comment on above: Performed By: #### P REGU #### [facility] [address] [place], [place] [address] Dr. Jaz Barajas Urea nitrogen [Mass/Vol] 11.0 mg/dL Normal 7.0-18.0 [facility] Comment on above: Performed By: #### P REGU #### [facility] [address] [place], [place] [address] Dr. Jaz Barajas Urea nitrogen/Creatinin e [Mass ratio] 13.8 mg/mg Normal [facility] Comment on above: Performed By: #### P REGU #### [facility] [address] [place], [place] [address] ABD/PELV W CONon 04-18-20 CT ABD/PELV W CON EXAMINATION: CT ABD/ PELV W CON HISTORY: GENERALIZED ABDOMINAL PAIN , acute left lower quadrant pain COMPARISON: CT abdomen 01/31/2022 TECHNIQUE: Axial, Coronal, and Sagittal images were created IV contrast. Dose reduction techniques were achieved by using automated exposure control and/or adjustment of mA and/or kV according to patient size and/or use of iterative reconstruction technique. FINDINGS: LUNG BASES: No visible pulmonary or pleural disease. LIVER: Mild fatty infiltration. No enlargement, atrophy, suspicious density, or significant focal lesion. BILIARY: No dilatation or calcification. PANCREAS: No lesion, fluid collection, or abnormal duct dilatation. SPLEEN: No enlargement or focal lesion. ADRENALS: No mass or enlargement. KIDNEYS: No mass, obstruction, or calcification. BOWEL/MESENTERY: No visible mass, obstruction, or bowel wall thickening. Normal appendix. AORTA/VASCULAR: No aneurysm or dissection. RETROPERITONEUM: No mass or adenopathy. LYMPH NODES: No adenopathy. URINARY BLADDER: No visible focal wall thickening, lesion, or calculus. PELVIC ORGANS: Right ovary contains a 2.3 cm cyst. Left ovary contains 2 small rounded structures with hyperdense peripheral margin, possibly recently ruptured follicles. No visible mass. ABDOMINAL WALL: Fat filled umbilical hernia 4.2 cm in maximum size with wide neck; no strangulation. BONES: No bony lesion or fracture. OTHER: Negative. IMPRESSION: 1. Prominent right ovarian cyst and likely to recently ruptured left ovarian follicles; uncertain clinical significance. 2. Fat filled umbilical hernia without strangulation; not significant changed. 3. Otherwise no specific findings to account for patient's symptoms. Electronically authenticated by: JEYSON BLANTON Date: 2022-04-18 12:31 Normal [facility] ER URINE PROFILEon 2 Bilirubin Ql (U) Negative Normal NEGATIVE [facility] Comment on above: Performed By: #### E RUR, PREGU ####[facility] [address] [place], [place] [address]Dr. Jaz Barajas Clarity (U) CLEAR Normal CLEAR [facility] Comment on above: Performed By: #### E RUR, PREGU ####[facility] [address] [place], [place] [address]Dr. Jaz Barajas Color (U) LT. YELLOW Normal YELLOW [facility] Comment on above: Performed By: #### E RUR, PREGU ####[facility] [address] [place], [place] [address]Dr. Jaz Barajas ERUAHD A micrscopic examina tion will be performed if indicated. Normal [facility] Comment on above: Performed By: #### E RUR, PREGU ####[facility] [address] [place], [place] [address]Dr. Jaz Barajas Glucose Ql (U) 1000 mg/dl Abnormal NEGATIVE [facility] Comment on above: Performed By: #### E RUR, PREGU ####[facility] [address] [place], [place] [address]Dr. Jaz Barajas Hemoglobin Ql (U) Negative Normal NEGATIVE [facility] Comment on above: Performed By: #### E RUR, PREGU ####[facility] [address] [place], [place] [address]Dr. Jaz Barajas Ketones Ql (U) Negative Normal NEGATIVE [facility] Comment on above: Performed By: #### E RUR, PREGU ####[facility] [address] [place] [address]Dr. Jaz Barajas LEUKOCYTES Negative Normal NEGATIVE [facility] Comment on above: Performed By: #### E RUR, PREGU ####[facility] [address] [place], [place] [address]Dr. Jaz Barajas Nitrite Ql (U) Negative Normal NEGATIVE [facility] Comment on above: Performed By: #### E RUR, PREGU ####[facility] [address] [place] [address]Dr. Jaz Barajas pH (U) 6.5 [pH] Normal 5-9 [facility] Comment on above: Performed By: #### E RUR, PREGU ####[facility] [address] [place], [place] [address]Dr. Jaz Barajas SPEC GRAVITY 1.010 Normal 1.005-<=1.02 5 [facility] Comment on above: Performed By: #### Neva RUR, PREGU ####[facility] [address] [place], [place] [address]Dr. Jaz Barajas UA PROTEIN Negative Normal NEGATIVE/ TRACE [facility] Comment on above: Performed By: #### E RUR, PREGU ####[facility] [address] [place], [place] [address]Dr. Jaz Barajas UR MICRO IND NOT INDICATED Normal [facility] Comment on above: Performed By: #### E RUR, PREGU ####[facility] [address] [place], [place] [address]Dr. Jaz Barajas Urobilinogen Qn (U) 0.2 {Oxana'U}/dL Normal 0.2 - 1.0 [facility] Comment on above: Performed By: #### E RUR, PREGU ####[facility] [address] [place], [place] [address]Dr. Jaz Barajas URon 04-18-2022 , QUAL Negative Normal NEGATIVE [facility] Comment on above: Performed By: #### E RUR, PREGU ####[facility] [address] [place], [place] [address]Dr. Jaz Barajas 17-OH PROGESTERONE, LC/MSon 04-05-2022 17-OH Progesterone LCMS 43 ng/dL Normal [facility] Comment on above: Result Comment: Adul t Female Follicular 15 - 70 Luteal 35 - 290 Performed By: #### P ROGLCM #### [facility] [address] [place] [address] [address] Jaz Barajas ANDROSTENEDINE LC/MSon 04-05 Androstenedione LCMS 111 ng/dL Normal 41-262 [facility] Comment on above: Result Comment: This test was developed and its performance characteristics determined by [facility]. It has not been cleared or approved by the Food and Drug Administration. Performed By: #### A NDROST #### [facility] [address] [place] [address] [address] Jaz Barajas TESTOSTERONE, TOTALon 2021 Testosterone [Mass/Vol] 70 ng/dL Critically high 8-60 [facility] Comment on above: Performed By: #### T ESTTOT ####[facility] [address] [place] [address]DrPratibha Barajas PROF CHEM 8 (BAS METB)on Anion gap [Moles/Vol] 11.5 mmol/L Normal [facility] Comment on above: Performed By: #### B MP ####[facility] [address] [place] [address]Dr. Jaz Barajas Calcium [Mass/Vol] 9.1 mg/dL Normal 8.5-10.1 [facility] Comment on above: Performed By: #### B MP ####[facility] [address] [place] [address]DrPratibha Barajas Chloride [Moles/Vol] 103 mmol/L Normal 98-107 [facility] Comment on above: Performed By: #### B MP ####[facility] [address] [place] [address]DrPratibha Barajas CO2 [Moles/Vol] 28.0 mmol/L Normal 21.0-32.0 [facility] Comment on above: Performed By: #### B MP ####[facility] [address] [place], [place] [address]Dr. Jaz Barajas Creatinine [Mass/Vol] 0.74 mg/dL Normal 0.55-1.02 [facility] Comment on above: Performed By: #### B MP ####[facility] [address] [place] [address]Dr. Jaz Barajas EGFR-AF [place]I >60 Normal >=60 [facility] Comment on above: Performed By: #### B MP ####[facility] [address] [place], [place] [address]Dr. Jaz Barajas EGFR-NON AF [place]I >60 Normal >=60 [facility] Comment on above: Performed By: #### B MP ####[facility] [address] [place], [place] [address]Dr. Jaz Barajas Glucose [Mass/Vol] 197 mg/dL Critically high 74-106 [facility] Comment on above: Performed By: #### B MP ####[facility] [address] [place], [place] [address]Dr. Jaz Barajas Potassium [Moles/Vol] 4.5 mmol/L Normal 3.5-5.1 [facility] Comment on above: Performed By: #### B MP ####[facility] [address] [place], [place] [address]Dr. Jaz Barajas Sodium [Moles/Vol] 138 mmol/L Normal 136-145 [facility] Comment on above: Performed By: #### B MP ####[facility] [address] [place], [place] [address]Dr. Jaz Barajas Urea nitrogen [Mass/Vol] 11.0 mg/dL Normal 7.0-18.0 [facility] Comment on above: Performed By: #### B MP ####[facility] [address] [place], [place] [address]Dr. Jaz Barajas Urea nitrogen/Creatinin e [Mass ratio] 14.9 mg/mg Normal [facility] Comment on above: Performed By: #### B MP ####[facility] [address] [place], [place] [address]Dr. Jaz Barajas Ambulatory Visit Summaryon 0 6-22-2022 Ambulatory Visit Summary MARILIA OSBORNE :1990 Visit Date:02/20/2022 Ambulatory Visit Instructions Your Care Team Attending Physician - YUDELKA LEUNG, Erik Green Primary Care Physician - ARIANE WELLS CNP This Is Your Medications List Contact prescribing physician if questions or concerns aripiprazole (aripiprazole 5 mg Tab) busPIRone calcium-vitamin D (Calcium 600+D) cholecalciferol (Vitamin D3 2000 intl units oral tablet) empagliflozin (Jardiance) fluoxetine (FLUoxetine 40 mg Cap) insulin regular (HumuLIN R KwikPen (Concentrated)) magnesium oxide (magnesium oxide 250 mg oral tablet) metformin (Glucophage XR 500 mg Tab-ER) pantoprazole (Pantoprazole [address] Tab) trazodone (traZODONE 50 mg Tab) Procedures Performed Colonoscopy (12/04/2016), Scintigraphy (11/11/2016), EGD - Esophagogastroduodenoscopy (10/30/2016), Polysomnogram (05/27/2016), Tonsillectomy (09/01/1992), History of ankle surgery, Tympanostomy tube, Tympanostomy tube. Discharge Vitals Heart Rate (Peripheral) 80 Respiratory Rate 16 Blood Pressure 126/92 Height 160.0 cm Height 160.02 cm Weight 119.0 kg Weight 119 kg BMI 46.47 Medications What How Much When Instructions Unchanged aripiprazole (aripiprazole 5 mg Tab) 1 Tablets By Mouth Every day Contact prescribing physician if questions or concerns Unchanged busPIRone Contact prescribing physician if questions or concerns Unchanged calcium-vitamin D (Calcium 600+D) 1 tab By Mouth Every day Contact prescribing physician if questions or concerns Unchanged cholecalciferol (Vitamin D3 2000 intl units oral tablet) 1 Tablets By Mouth Every day Contact prescribing physician if questions or concerns Unchanged empagliflozin (Jardiance) Contact prescribing physician if questions or concerns Unchanged fluoxetine (FLUoxetine 40 mg Cap) 1 Capsules By Mouth Every day Contact prescribing physician if questions or concerns Unchanged insulin regular (HumuLIN R KwikPen (Concentrated)) Contact prescribing physician if questions or concerns Unchanged magnesium oxide (magnesium oxide 250 mg oral tablet) 1 Tablets By Mouth Every day Contact prescribing physician if questions or concerns Unchanged metformin (Glucophage XR 500 mg Tab-ER) 2 Tablets By Mouth 2 times a day Contact prescribing physician if questions or concerns Unchanged pantoprazole (Pantoprazole [address] Tab) 1 Tablets By Mouth Every day Contact prescribing physician if questions or concerns Unchanged trazodone (traZODONE 50 mg Tab) 2 Tablets By Mouth Once a day (at bedtime) Contact prescribing physician if questions or concerns Allergies predniSONE (Slurred speech, Shaking) Problems Ongoing - Any problem that you are currently receiving treatment for. Acquired deformity of right ankle ADHD Bipolar disorder BMI 45.0-49.9, adult Class 3 severe obesity due to excess calories with body mass index (BMI) of 40.0 to 44.9 in adult Current tobacco use DDD (degenerative disc disease), lumbar Depression Diabetes Female infertility Insomnia Osteochondral defect of talus PCOS (polycystic ovarian syndrome) Sleep apnea Umbilical hernia Vitamin D deficiency Normal [facility] Ambulatory Visit Summary MARILIA OSBORNE :1990 Visit Date:02/20/2022 Ambulatory Visit Instructions Your Care Team Attending Physician - YUDELKA LEUNG, Erik Green Primary Care Physician - ARIANE WELLS CNP This Is Your Medications List Contact prescribing physician if questions or concerns aripiprazole (aripiprazole 5 mg Tab) busPIRone calcium-vitamin D (Calcium 600+D) cholecalciferol (Vitamin D3 2000 intl units oral tablet) empagliflozin (Jardiance) fluoxetine (FLUoxetine 40 mg Cap) insulin regular (HumuLIN R KwikPen (Concentrated)) magnesium oxide (magnesium oxide 250 mg oral tablet) metformin (Glucophage XR 500 mg Tab-ER) pantoprazole (Pantoprazole [address] Tab) trazodone (traZODONE 50 mg Tab) Procedures Performed Colonoscopy (12/04/2016), Scintigraphy (11/11/2016), EGD - Esophagogastroduodenoscopy (10/30/2016), Polysomnogram (05/27/2016), Tonsillectomy (09/01/1992), History of ankle surgery, Tympanostomy tube, Tympanostomy tube. Discharge Vitals Heart Rate (Peripheral) 80 Respiratory Rate 16 Blood Pressure 126/92 Height 160.0 cm Height 160.02 cm Weight 119.0 kg Weight 119 kg BMI 46.47 Medications What How Much When Instructions Unchanged aripiprazole (aripiprazole 5 mg Tab) 1 Tablets By Mouth Every day Contact prescribing physician if questions or concerns Unchanged busPIRone Contact prescribing physician if questions or concerns Unchanged calcium-vitamin D (Calcium 600+D) 1 tab By Mouth Every day Contact prescribing physician if questions or concerns Unchanged cholecalciferol (Vitamin D3 2000 intl units oral tablet) 1 Tablets By Mouth Every day Contact prescribing physician if questions or concerns Unchanged empagliflozin (Jardiance) Contact prescribing physician if questions or concerns Unchanged fluoxetine (FLUoxetine 40 mg Cap) 1 Capsules By Mouth Every day Contact prescribing physician if questions or concerns Unchanged insulin regular (HumuLIN R KwikPen (Concentrated)) Contact prescribing physician if questions or concerns Unchanged magnesium oxide (magnesium oxide 250 mg oral tablet) 1 Tablets By Mouth Every day Contact prescribing physician if questions or concerns Unchanged metformin (Glucophage XR 500 mg Tab-ER) 2 Tablets By Mouth 2 times a day Contact prescribing physician if questions or concerns Unchanged pantoprazole (Pantoprazole [address] Tab) 1 Tablets By Mouth Every day Contact prescribing physician if questions or concerns Unchanged trazodone (traZODONE 50 mg Tab) 2 Tablets By Mouth Once a day (at bedtime) Contact prescribing physician if questions or concerns Allergies predniSONE (Slurred speech, Shaking) Problems Ongoing - Any problem that you are currently receiving treatment for. Acquired deformity of right ankle ADHD Bipolar disorder BMI 45.0-49.9, adult Class 3 severe obesity due to excess calories with body mass index (BMI) of 40.0 to 44.9 in adult Current tobacco use DDD (degenerative disc disease), lumbar Depression Diabetes Female infertility Insomnia Osteochondral defect of talus PCOS (polycystic ovarian syndrome) Sleep apnea Umbilical hernia Vitamin D deficiency [facility] Provider Letter FTon 02-20 [place] [facility] [place] [address] OSBORNE [address] [place] [id number] MARILIA OSBORNE 1990 To Whom It May Concern, Please excuse above person from school 02/20/22 due to doctor office appointment. Sincerely, Dr. Erik Anderson MD General Surgery [facility] XR ABD FLAT_UPon 02-06-2022 XR ABD FLAT_UP EXAMINATION: XR ABD FLAT_UP HISTORY: Abdominal pain COMPARISON: CT 01/31/2022 FINDINGS: BOWEL GAS PATTERN: Non-obstructed. FREE AIR: None. CALCIFICATIONS: 3 mm left pelvic calcification BONES: No fracture or visible bone lesion. OTHER: Negative. IMPRESSION: 3 mm left pelvic calcification, a phlebolith is favored Nonobstructive bowel gas pattern Electronically authenticated by: JOSE EDUARDO RIVERS Date: 2022-02-06 17:25 Normal [facility] Physician Referralon 022 Physician Referral [id number]:[id number] Normal [facility] Physician Referral [id number]:[id number] Normal [facility] CREATININEon 01-31-2022 Creatinine [Mass/Vol] 0.74 mg/dL Normal 0.55-1.02 [facility] Comment on above: Performed By: #### P ROGLCM #### [facility] [address] [place] [address] Dr. Jaz Barajas EGFR-AF KU[place]I >60 Normal >=60 [facility] Comment on above: Performed By: #### P ROGLCM #### [facility] [address] [place] [address] [address] Jaz Barajas EGFR-NON AF [place]I >60 Normal >=60 [facility] Comment on above: Performed By: #### P ROGLCM #### [facility] [address] [place] [address] ABDOMEN W CONon 2 CT ABDOMEN W CON EXAMINATION: CT ABDO MEN W CON HISTORY: Umbilical hernia , pain COMPARISON: CT abdomen pelvis 02/03/2020 TECHNIQUE: CT images were created with IV contrast. Axial, Coronal, and Sagittal images. Dose reduction techniques were achieved by using automated exposure control and/or adjustment of mA and/or kV according to patient size and/or use of iterative reconstruction technique FINDINGS: LUNG BASES: No visible pulmonary or pleural disease. LIVER: No enlargement, atrophy, abnormal density, or significant focal lesion. BILIARY: No visible dilatation or calcification. PANCREAS: No lesion, fluid collection, ductal dilatation, or atrophy. SPLEEN: No enlargement or focal lesion. ADRENALS: No mass or enlargement. KIDNEYS: No mass, obstruction, or calcification. BOWEL/MESENTERY: 10 cm long segment of small bowel-small bowel intussusception within the left upper quadrant involving the jejunum. No visible obstruction or inflammatory changes. AORTA/VASCULAR: No aneurysm or dissection. RETROPERITONEUM: No mass or adenopathy. ABDOMINAL WALL: Fat filled periumbilical hernia 4.6 x 3.2 x 2.9 cm; no strangulation. BONES: No bony lesion or fracture. OTHER: Negative. IMPRESSION: 1. Small bowel-small bowel intussusception within the left upper quadrant without obstruction. These are typically transient and of little clinical significance. 2. Fat filled umbilical hernia without strangulation or bowel involvement. Electronically authenticated by: JYESON BLANTON Date: 2022-01-31 18:16 Normal [facility] ACETONE SERUMon 01-09-2022 ACETONE Negative Normal NEGATIVE [facility] Comment on above: Performed By: #### A CETON ####[facility] [address] [place] [address]Dr. Jaz Barajas CARDIAC BISI ADMITon 022 CK [Catalytic activity/Vol] 58 U/L Normal 26-192 [facility] Comment on above: Performed By: #### P REGU #### [facility] [address] [address] [address] Jaz Barajas CK.MB [Mass/Vol] 0.64 ng/mL Normal <=3.60 [facility] Comment on above: Performed By: #### P REGU #### [facility] [address] [address] [address] Jaz Barajas HSTROP 5.3 pg/mL Normal 4.0-51.3 [facility] Comment on above: Result Comment: CUT- OFF POINTS HAVE BEEN ESTABLISHED BASED ON THE FOURTH UNIVERSAL DEFINITIONS OF MYOCARDIAL INFARCTION. THE UPPER REFERENCE LIMIT (URL) OF TROPONIN, DEFINED THE 99TH PERCENTILE OF cTnI DISTRIBUTION IN A REFERENCE POPULATION, HAS BEEN CONFIRMED THE DECISION THRESHOLD FOR MA DIAGNOSIS. Performed By: #### P REGU #### [facility] [address] [address] [address] Jaz Barajas WAI 30 ng/mL Normal 9-82 [facility] Comment on above: Performed By: #### P REGU #### [facility] [facility] [address] [place] [address] Dr. Jaz Barajas CBC AUTO DIFFon 01-09-2022 BASO # 0.1 103/ul Normal 0.0-0.1 [facility] Comment on above: Performed By: #### P REGU #### [facility] [address] [place] [address] Dr. Jaz Barajas Basophils/100 WBC (Bld) 0.5 % Normal 0.2-2.0 [facility] Comment on above: Performed By: #### P REGU #### [facility] [address] [place] [address] Dr. Jaz Barajas EO # 0.3 103/ul Normal 0.0-0.7 [facility] Comment on above: Performed By: #### P REGU #### [facility] [address] [place] [address] Dr. Jaz Barajas Eosinophils/100 WBC (Bld) 2.5 % Normal 0.9-7.0 [facility] Comment on above: Performed By: #### P REGU #### [facility] [address] [place] [address] Dr. Jaz Barajas Erythrocyte distribution width (RBC) [Ratio] 12.8 % Normal 11.0-15.0 [facility] Comment on above: Performed By: #### P REGU #### [facility] [address] [place] [address] Dr. Jaz Barajas Hematocrit (Bld) [Volume fraction] 41.0 % Normal 36.0-48.0 [facility] Comment on above: Performed By: #### P REGU #### [facility] [address] [place] [address] Dr. Jaz Barajas Hemoglobin (Bld) [Mass/Vol] 13.6 g/dL Normal 12.0-16.0 [facility] Comment on above: Performed By: #### P REGU #### [facility] [address] [place] [address] Dr. Jaz Barajas IG # 0.03 10e3/ul Normal 0.00-0.03 [facility] Comment on above: Performed By: #### P REGU #### [facility] [address] [place] [address] Dr. Jaz Barajas IG % 0.3 % Normal 0.0-0.5 [facility] Comment on above: Performed By: #### P REGU #### [facility] [address] [place] [address] Dr. Jaz Barajas LYMPH # 2.7 103/ul Normal 1.2-3.8 [facility] Comment on above: Performed By: #### P REGU #### [facility] [address] [place] [address] Dr. Jaz Barajas Lymphocytes/100 WBC (Bld) 25.7 % Normal 20.5-60.0 [facility] Comment on above: Performed By: #### P REGU #### [facility] [address] [place] [address] Dr. Jaz Barajas MANUAL DIFF REQ NO Normal [facility] Comment on above: Performed By: #### P REGU #### [facility] [address] [place] [address] Dr. Jaz Barajas MCH (RBC) [Entitic mass] 27.7 pg Normal 26.7-34.0 [facility] Comment on above: Performed By: #### P REGU #### [facility] [address] [place] [address] Dr. Jaz Barajas MCHC (RBC) [Mass/Vol] 33.2 g/dL Normal 29.9-35.2 [facility] Comment on above: Performed By: #### P REGU #### [facility] [address] [place] [address] Dr. Jaz Barajas MCV (RBC) [Entitic vol] 83.5 fL Normal 81.0-99.0 [facility] Comment on above: Performed By: #### P REGU #### [facility] [address] [place] [address] Dr. Jaz Barajas MONO # 0.8 103/ul Normal 0.3-0.8 [facility] Comment on above: Performed By: #### P REGU #### [facility] [address] [address] [address] Jaz Barajas Monocytes/100 WBC (Bld) 7.4 % Normal 1.7-12.0 [facility] Comment on above: Performed By: #### P REGU #### [facility] [address] [place] [address] Dr. Jaz Barajas NEUT # 6.6 103/ul Critically high 1.4-6.5 [facility] Comment on above: Performed By: #### P REGU #### [facility] [address] [place] [address] Dr. Jaz Barajas Neutrophils/100 WBC (Bld) 63.6 % Normal 43.0-75.0 [facility] Comment on above: Performed By: #### P REGU #### [facility] [address] [place] [address] Dr. Jaz Barajas Platelet mean volume (Bld) [Entitic vol] 11.5 fL Normal 9.5-13.5 [facility] Comment on above: Performed By: #### P REGU #### [facility] [address] [place] [address] Dr. Jaz Barajas PLT 227 103/ul Normal 150-450 [facility] Comment on above: Performed By: #### P REGU #### [facility] [address] [place] [address] Dr. Jaz Barajas RBC 4.91 106/ul Normal 4.20-5.40 [facility] Comment on above: Performed By: #### P REGU #### [facility] [address] [place] [address] Dr. Jaz Barajas WBC 10.4 103/ul Normal 4.0-11.0 [facility] Comment on above: Performed By: #### P REGU #### [facility] [address] [place] [address] Dr. Jaz Barajas CTA CHEST WO W CONon 022 CTA CHEST WO W CON EXAMINATION: CTA OSVALDO ST WO W CON HISTORY: CHEST PAIN, UNSPECIFIED COMPARISON: No relevant comparison available. TECHNIQUE: Multi-planar CT images were created with IV contrast. Axial, Coronal, and Sagittal images. Dose reduction techniques were achieved by using automated exposure control and/or adjustment of mA and/or kV according to patient size and/or use of iterative reconstruction technique. 3-D reconstruction was performed on a separate workstation. FINDINGS: VASCULATURE: No pulmonary embolism or abnormal opacity. LUNGS: No visible pulmonary disease. PLEURA: No mass, effusion, or pneumothorax. ELI: No mass or adenopathy. MEDIASTINUM: No mass or adenopathy. CARDIAC: No enlargement, pericardial effusion, or pericardial thickening. AORTA: No aneurysm or dissection. CHEST WALL: No mass or axillary adenopathy. BONES: No bone lesion or fracture. LIMITED ABDOMEN: Fatty infiltration of liver. No suspicious findings. Limited images of the upper abdomen. OTHER: Negative. IMPRESSION: 1. No pulmonary embolism. 2. No pulmonary infiltrates or acute findings to account for patient's symptoms. Electronically authenticated by: JEYSON BLANTON Date: 2022-01-09 09:47 Normal [facility] D-DIMERon 01-09-2022 D-DIMER 0.56 mg/L FEU Critically high 0.19-0.50 [facility] Comment on above: Result Comment: test repeated critical value verified Performed By: #### D DIM, PT, PTT #### [facility] [address] [address] [address] Jaz Barajas D-DIMER COMMENTS SEE BELOW Normal [facility] Comment on above: Result Comment: Incr eases in D-Dimer concentration observed with thromboembolic events can be variable due to localization, size, and age of the thrombus. Therefore, a thromboembolic event cannot be diagnosed with certainty on the basis of the reference range. D-Dimers may also be elevated for a variety of disorders including: advanced age, , coronary disease, cancer, liver disease, infection, inflammation, hematoma, DIC, trauma, post-surgery, diabetes, thrombolytic or anticoagulant therapy, stress, and generalized hospitalization. Performed By: #### D DIM, PT, PTT #### [facility] [address] [place], [place] [address] Dr. Jaz Barajas ER URINE PROFILEon 2 Bilirubin Ql (U) Negative Normal NEGATIVE [facility] Comment on above: Performed By: #### P ROGLCM #### [facility] [address] [address] [address] Jaz Barajas Clarity (U) CLEAR Normal CLEAR [facility] Comment on above: Performed By: #### P ROGLCM #### [facility] [address] [place] [address] Dr. Jaz Barajas Color (U) YELLOW Normal YELLOW [facility] Comment on above: Performed By: #### P ROGLCM #### [facility] [address] [address] [address] Jaz Barajas ERUAHSahil A micrscopic examina tion will be performed if indicated. Normal [facility] Comment on above: Performed By: #### P ROGLCM #### [facility] [address] [place] [address] Dr. Jaz Barajas Glucose Ql (U) 500 mg/dl Abnormal NEGATIVE [facility] Comment on above: Performed By: #### P ROGLCM #### [facility] [address] [place] [address] Dr. Jaz Barajas Hemoglobin Ql (U) Negative Normal NEGATIVE [facility] Comment on above: Performed By: #### P ROGLCM #### [facility] [address] [place] [address] Dr. Jaz Barajas Ketones Ql (U) Negative Normal NEGATIVE [facility] Comment on above: Performed By: #### P ROGLCM #### [facility] [address] [address] [address] Jaz Barajas LEUKOCYTES Negative Normal NEGATIVE [facility] Comment on above: Performed By: #### P ROGLCM #### [facility] [address] [address] [address] Jaz Barajas Nitrite Ql (U) Negative Normal NEGATIVE [facility] Comment on above: Performed By: #### P ROGLCM #### [facility] [address] [place] [address] Dr. Jaz Barajas pH (U) 6.0 [pH] Normal 5-9 [facility] Comment on above: Performed By: #### P ROGLCM #### [facility] [address] [address] [address] Jaz Barajas SPEC GRAVITY >=1.030 Abnormal 1.005-<=1.02 5 [facility] Comment on above: Performed By: #### P ROGLCM #### [facility] [address] [address] [address] Jaz Barajas UA PROTEIN Negative Normal NEGATIVE/ TRACE [facility] Comment on above: Performed By: #### P ROGLCM #### [facility] [address] [address] [address] Jaz Barajas UR MICRO IND NOT INDICATED Normal [facility] Comment on above: Performed By: #### P ROGLCM #### [facility] [address] [address] [address] Jaz Barajas Urobilinogen Qn (U) 0.2 {Oxana'U}/dL Normal 0.2 - 1.0 [facility] Comment on above: Performed By: #### P ROGLCM #### [facility] [address] [address] [address] Jaz Barajas PH VENOUS BLOODon 01-09-2022 PCO2 VENOUS 39.2 mmHg Critically low 40.0-52.0 [facility] Comment on above: Performed By: #### P HVEN #### [facility] [address] [address] [address] Jaz Barajas pH VENOUS 7.409 Normal 7.330-7.430 [facility] Comment on above: Performed By: #### P HVEN #### [facility] [address] [address] [address] Jaz Barajas URon 01-09-2022 , QUAL Negative Normal NEGATIVE [facility] Comment on above: Performed By: #### P REGU #### [facility] [address] [address] [address] Jaz Barajas PROF 14(COMP METB)on 022 Albumin [Mass/Vol] 3.2 g/dL Critically low 3.4-5.0 [facility] Comment on above: Performed By: #### P REGU #### [facility] [address] [address] [address] Jaz Barajas Albumin/Globulin [Mass ratio] 0.8 {ratio} Normal [facility] Comment on above: Performed By: #### P REGU #### [facility] [address] [address] [address] Jaz Barajas ALP [Catalytic activity/Vol] 109 U/L Normal 46-116 [facility] Comment on above: Performed By: #### P REGU #### [facility] [address] [address] [address] Jaz Barajas ALT [Catalytic activity/Vol] 95 U/L Critically high 14-59 [facility] Comment on above: Performed By: #### P REGU #### [facility] [address] [place] [address] Dr. Jaz Barajas Anion gap [Moles/Vol] 11.7 mmol/L Normal [facility] Comment on above: Performed By: #### P REGU #### [facility] [address] [address] [address] Jaz Barajas AST [Catalytic activity/Vol] 44 U/L Critically high 15-37 [facility] Comment on above: Performed By: #### P REGU #### [facility] [address] [place] [address] Dr. Jaz Barajas Bilirubin [Mass/Vol] 0.3 mg/dL Normal 0.2-1.0 [facility] Comment on above: Performed By: #### P REGU #### [facility] [address] [address] [address] Jaz Barajas Calcium [Mass/Vol] 8.8 mg/dL Normal 8.5-10.1 [facility] Comment on above: Performed By: #### P REGU #### [facility] [address] [address] [address] Jaz Barajas Chloride [Moles/Vol] 102 mmol/L Normal 98-107 [facility] Comment on above: Performed By: #### P REGU #### [facility] [address] [place] [address] Dr. Jaz Barajas CO2 [Moles/Vol] 25.3 mmol/L Normal 21.0-32.0 [facility] Comment on above: Performed By: #### P REGU #### [facility] [address] [place] [address] Dr. Jaz Barajas Creatinine [Mass/Vol] 0.86 mg/dL Normal 0.55-1.02 [facility] Comment on above: Performed By: #### P REGU #### [facility] [address] [place] [address] Dr. Jaz Barajas EGFR-AF [place]I >60 Normal >=60 [facility] Comment on above: Performed By: #### P REGU #### [facility] [address] [place] [address] Dr. Jaz Barajas EGFR-NON AF [place] >60 Normal >=60 [facility] Comment on above: Performed By: #### P REGU #### [facility] [address] [place] [address] Dr. Jaz Barajas Globulin (S) [Mass/Vol] 3.9 g/dL Normal [facility] Comment on above: Performed By: #### P REGU #### [facility] [address] [place] [address] Dr. Jaz Barajas Glucose [Mass/Vol] 230 mg/dL Critically high 74-106 [facility] Comment on above: Performed By: #### P REGU #### [facility] [address] [place] [address] Dr. Jaz Barajas Potassium [Moles/Vol] 4.0 mmol/L Normal 3.5-5.1 [facility] Comment on above: Performed By: #### P REGU #### [facility] [address] [place] [address] Dr. Jaz Barajas Protein [Mass/Vol] 7.1 g/dL Normal 6.4-8.2 [facility] Comment on above: Performed By: #### P REGU #### [facility] [address] [place] [address] Dr. Jaz Barajas Sodium [Moles/Vol] 135 mmol/L Critically low 136-145 Th [facility] Comment on above: Performed By: #### P REGU #### [facility] [address] [place] [address] Dr. Jaz Barajas Urea nitrogen [Mass/Vol] 15.0 mg/dL Normal 7.0-18.0 [facility] Comment on above: Performed By: #### P REGU #### [facility] [address] [place] [address] Dr. Jaz Barajas Urea nitrogen/Creatinin e [Mass ratio] 17.4 mg/mg Normal [facility] Comment on above: Performed By: #### P REGU #### [facility] [address] [place] [address] Dr. Jaz Barajas PROTIMEon 01-09-2022 INR Coag (PPP) [Relative time] 0.96 {INR} Normal [facility] Comment on above: Performed By: #### D DIM, PT, PTT #### [facility] [address] [place] [address] Dr. Jaz Barajas INR GUIDELINES SEE BELOW Normal [facility] Comment on above: Result Comment: UMU RED INR: 2.0 - 3.0 CONDITIONS NOT LISTED BELOW 2.5 - 3.5 FOR PROSTHETIC HEART VALVE REPLACEMENT 2.5 - 3.5 RECURRENT THROMBOSIS Performed By: #### D DIM, PT, PTT #### [facility] [address] [place] [address] Dr. Jaz Barajas PT Coag (PPP) [Time] 10.4 s Normal 9.0-11.6 [facility] Comment on above: Performed By: #### D DIM, PT, PTT #### [facility] [address] [place] [address] Dr. Jaz Barajas PTTon 01-09-2022 aPTT Coag (Bld) [Time] 28.8 s Normal 22.3-36.2 [facility] Comment on above: Performed By: #### D DIM, PT, PTT #### [facility] [address] [place] [address] Dr. Jaz Barajas TROPONIN, HIGH SENSITIVITYon 01-09-2022 HSTROP 4.5 pg/mL Normal 4.0-51.3 [facility] Comment on above: Result Comment: CUT- OFF POINTS HAVE BEEN ESTABLISHED BASED ON THE FOURTH UNIVERSAL DEFINITIONS OF MYOCARDIAL INFARCTION. THE UPPER REFERENCE LIMIT (URL) OF TROPONIN, DEFINED THE 99TH PERCENTILE OF cTnI DISTRIBUTION IN A REFERENCE POPULATION, HAS BEEN CONFIRMED THE DECISION THRESHOLD FOR MA DIAGNOSIS. Performed By: #### P ROGLCM #### [facility] [address] [place] [address] Dr. Jaz Barajas TSHon 01-09-2022 TSH 2.769 uIU/mL Normal 0.358-3.740 [facility] Comment on above: Performed By: #### P REGU #### [facility] [address] [place] [address] Dr. Jaz Barajas TSH RANGE SEE BELOW Normal [facility] Comment on above: Result Comment: <0.3 4 UIU/ml HYPERTHYROID 0.34-5.60 UIU/ml EUTHYROID >5.60 UIU/ml HYPOTHYROID Performed By: #### P REGU #### [facility] [address] [place] [address] Dr. Jaz Barajas XR CHEST 1 Von 01-09-2022 XR CHEST 1 V EXAMINATION: XR CHES T 1 V HISTORY: CHEST PAIN, UNSPECIFIED COMPARISON: 05/02/2021 TECHNIQUE: AP portable erect FINDINGS: LUNGS: No significant pulmonary parenchymal abnormalities. VASCULATURE: No increased pulmonary vasculature. PLEURA: No pneumothorax, effusion, or pleural thickening. CARDIAC: No cardiomegaly or cardiac silhouette abnormality. MEDIASTINUM: No visible mass or adenopathy. BONES: No fracture or visible bone lesion. OTHER: Negative. IMPRESSION: No acute disease. Electronically authenticated by: JOSE EDUARDO RIVERS Date: 2022-01-09 08:29 Normal [facility] Encounters Encounter Date Encounter Type Care Provider Facility Start: 12-14-2022 End: 12-15-2022 ambulatory [facility] ARIANE HITCHCOCKISABELLA Facility: Start: 12-11-2022 End: 12-12-[address] [facility] Facility:[facility] Start: 11-15-2022 End: 11-15-[address] SKY DAVIS . Facility:[facility] Start: 11-10-2022 End: 11-10-[address] QUANG LANDA . Facility:[facility] Start: 08-18-2022 End: 08-18-2022 ambulatory GABINO CARROLL . Facility:[facility] Start: 07-09-2022 End: 07-09-[address] SYK DAVIS . Facility:[facility] Start: 05-14-2022 End: 05-14-2022 ambulatory [employer] ARIANE AICBrendaMJZ Facility:[facility] Start: 05-13-2022 Encounter for prepro cedural laboratory examination DR ROSA APONTE [facility] Start: 05-08-2022 End: 05-09-[address] ROSA APONTE Facility:[facility] Start: 05-08-2022 End: 05-09-2022 Encounter for preprocedural laboratory examination DR ROSA APONTE Facility:[facility] Start: 04-18-2022 End: 04-18-2022 ambulatory [employer] ARIANE AICBrendaMJZ Facility:[facility] Start: 04-01-2022 End: 04-02-2022 ambulatory [employer] ARIANE AICBrendaMJZ Facility:[facility] Start: 02-06-2022 End: 02-07-2022 ambulatory [employer] ARIANE AICBrendaMJZ Facility:[facility] Start: 01-31-2022 End: 02-01-2022 ambulatory AMINATA BOURGEOIS Facility:[facility] Start: 01-24-2022 ambulatory [employer] ARIANE CEDRICISABELLA Facil ity:[facility] Start: 01-09-2022 End: 01-09-2022 ambulatory GABINO CARROLL . Facility:[facility] Payers Date Payer Category Payer Medicaid [id number] 1990 Unknown [id number] 2.16.84 [id number] 1988 Unknown [id number] 2.16.84 [id number] 1988 Unknown [id number] 2.16.84 [id number] 1988 Unknown [id number] 2.16.84 [id number] 1988 Unknown [id number] 2.16.84 [id number] 1988 Unknown [id number] 2.16.84 [id number] 1988 Unknown [id number] 2.16.84 [id number] 1988 Unknown [id number] 2.16.84 [id number] 1988 Unknown [id number] 2.16.84 [id number] 1988 Unknown [id number] 2.16.84 [id number] 1988 Unknown [id number] 2.16.84 [id number] 1988 Unknown [id number] 2.16.84 [id number] 1988 Unknown [id number] 2.16.84 [id number] 1959 Unknown [id number] 1959 Unknown [id number] Clinical Note 12-16-2022 Note Date & Type Note Facility 12-16-2022 Note PROCEDURE: XR ANKLE RT MIN 3 VIEWS DATE: 12/14/2022 9:31 AM CDT COMPARISONS: 01/18/2021 CLINICAL INDICATION: Pain of right knee joint Inversion of right ankle with pain. FINDINGS: There is no evidence of fractures or other acute osseous abnormalities. There is evidence of postop changes of the mid and posterior os calcis. 2 horizontal pins are noted of the mid and posterior os calcis, stable from 01/18/2021. There is a 8 mm defect of the mid aspect of the talus in frontal view, stable from previous exam. This portion of the talus is indented approximately 3 mm. No other osseous abnormalities identified. IMPRESSION: 1. Postop changes posterior os calcis, stable 2. Indentation of the central aspect of the talus noted on frontal views of the ankle. This is a stable finding from previous exam.. Electronically authenticated by: HAYDE VAN Date: 2022-12-16 07:21 [facility] Clinical Note 12-16-2022 Note Date & Type Note Facility 12-16-2022 Note PROCEDURE: XR KNEE R T 4V or > DATE: 12/14/2022 9:31 AM CDT COMPARISONS: None CLINICAL INDICATION: Pain of right knee joint FINDINGS: There is no evidence of fractures or other osseous abnormalities. No evidence of right knee joint effusion IMPRESSION: Right knee radiographs show no evidence of significant abnormalities. Electronically authenticated by: HAYDE VAN Date: 2022-12-16 07:17 [facility] Clinical Note 05-14-2022 Note Date & Type Note Facility 05-14-2022 Note OPERATIVE NOTE OPERATION DATE: 05/14/2022 PRIMARY CARE PROVIDER: Ariane Wells CNP SURGEON: Rosa Aponte M.D. PREOPERATIVE DIAGNOSIS: Left middle ear foreign body and left eustachian tube dysfunction. POSTOPERATIVE DIAGNOSIS: Left middle ear foreign body and left eustachian tube dysfunction. PROCEDURE: Left tympanotomy and removal of middle ear foreign body and left myringotomy and tube. ANESTHESIA: General LMA. COMPLICATIONS: None. FINDINGS: A modified Daniel's T-tube in the left anterior middle ear. INDICATIONS: This 31-year-old woman underwent placement of tympanostomy tubes in October and presented for evaluation after she has pushed her left tube into the middle ear using a Q-Tip. PROCEDURE: Patient identified in the holding area and taken back to the OR, where was placed in a supine position. After induction of general anesthesia, the left ear was approached with the otomicroscope. An anterior tympanotomy was performed and then, using an alligator forcep, the patient's old T-tube was grasped in the middle ear and removed from the middle. Then, a modified Daniel's T-tube was folded, inserted in the middle ear and opened in the middle ear using microdissection. Patient tolerated the procedure well, and she was awakened and taken to the recovery room in good condition. [facility] Clinical Note 02-22-2022 Note Date & Type Note Facility 02-22-2022 Note Chief Complaint consultation for umbilical hernia HPI Staff 31 year old female presents on workman compensation claim for umbilical hernia. Reports abdominal pain and bulge with fair amount of daily nausea. Denies vomiting. Reports change in bowels with multiple small bowel movements per day. History of Present Illness 31 yo female with h/o DMII, sleep apnea, ADHD, PCOS, GERD, referred for umbilical hernia; patient developed lower abd pain and pelvic pressure after strenuous activity at work, end of December; had Workman's comp evaluation; had abd/pelvic ct scan which revealed small, fat-containing umbilical hernia, no inflammation; unchanged from previous ct scan 2 years ago; no skin changes; no umbilical pain; no N/V or bowel changes; no previous abdominal operations; smokes daily. Review of Systems PHQ Score Initial Depression Screen Score: 0 ROS - Provider Constitutional: no fever, no sweats, no weight loss. Eyes: no glasses, no blurred vision, no visual loss. ENMT: no dentures, no hoarseness, no swallowing difficulties, no hearing loss, no ear infection(s), no nose bleeds. Cardiovascular: normal blood pressure, no chest pain, regular heartbeat, no heart murmur. Respiratory: no shortness of breath, no cough, no asthma, no wheezing. Gastrointestinal: no nausea, no vomiting, no diarrhea, no constipation, no blood in stool, no change in bowel habits, no abdominal pain, no hepatitis. Genitourinary: no kidney stones, no urine infection, no dysuria. Musculoskeletal: no pain, no weakness. Skin: no changing moles, no rash, no skin lumps. Neurologic: no seizures, no epilepsy, no headache. Psychiatric: no emotional or psychiatric problem. Heme/Lymph: no bleeding problems, no anemia, no blood clots, no transfusions. Allergy/Immunologic: no swollen lymph nodes/glands, no IV drug abuse. Other: Additional ROS info: Except as noted in the above Review of Systems and in the History of Present Illness, all other systems have been reviewed and are negative or noncontributory. Physical Exam Vitals & Measurements HR: 80(Peripheral) RR: 16 BP: 126/92 HT: 160.0 cm HT: 160.02 cm WT: 119.0 kg WT: 119 kg BMI: 46.47 HEENT: normal conjunctiva, sclera clear, no scleral icterus, EOM intact, PERRLA, oral mucosa moist without lesions. Neck: trachea midline, no mass, symmetric, no thyromegaly or nodules, no adenopathy Respiratory: lungs CTA, respirations non labored. Cardiovascular: regular rate and rhythm, no murmur, no pedal edema or varicosities. Gastrointestinal: obese, soft, non distended, no tenderness, no masses, small, partially reducible umbilical hernia, nontender, no skin changes; diastasis recti yes, no hepatosplenomegaly; normal bs Lymphatic: no cervical adenopathy, Musculoskeletal: normal gait, digits and nails without infection, nodes, cyanosis, clubbing. Skin: no rashes, no lesions, no ulcers, no subcutaneous nodules, induration. Psychiatric/Neuro: oriented to time, place, person, judgement normal, affect appropriate for age, insight intact, no focal deficits. Tests: , x-rays reviewed, review of old records completed, Assessment/Plan 1. Umbilical hernia (K42.9: Umbilical hernia without obstruction or gangrene) small, fat containing; unchanged over past 2 years; risks of repair out weight any small benefit due to patient's comorbid conditions; recommend observation; wt loss and smoking cessation. call with problems/questions. 2. BMI 45.0-49.9, adult (Z68.42: Body mass index [BMI] 45.0-49.9, adult) recommend diet and exercise 3. Current tobacco use (Z72.0: Tobacco use) We strongly recommend to quit tobacco use. Cigarette smoking harms nearly every organ of the body, causes many diseases, and reduces the health of smokers in general. Quitting smoking lowers your risk for smoking-related diseases and can add years to your life. We encourage you to visit www.smokefree.gov access to helpful resources including free telephone support. If you decide on prescription treatment to help you quit, your family doctor would be happy to provide these. Follow-up No qualifying data available Problem List/Past Medical History Ongoing Acquired deformity of right ankle ADHD Bipolar disorder BMI 45.0-49.9, adult Class 3 severe obesity due to excess calories with body mass index (BMI) of 40.0 to 44.9 in adult Current tobacco use DDD (degenerative disc disease), lumbar Depression Diabetes Female infertility Insomnia Osteochondral defect of talus PCOS (polycystic ovarian syndrome) Sleep apnea Umbilical hernia Vitamin D deficiency Historical No qualifying data Procedure/Surgical History Colonoscopy (12/04/2016), Scintigraphy (11/11/2016), EGD - Esophagogastroduodenoscopy (10/30/2016), Polysomnogram (05/27/2016), Tonsillectomy (09/01/1992), History of ankle surgery, Tympanostomy tube, Tympanostomy tube. Medications aripiprazole 5 mg Tab, 5 mg= 1 tab(s), Oral, Daily busPIRone Calcium 600+D, 1 tab, Oral, Da (more content not included)... [facility] Comment on above: Result Comment: Elec tronically Signed By: YUDELKA LENUG, Erik Escobedo\Date and Time Signed: 02/22/22 08:55 EDT Summary Purpose Family History No Family History Records FoundNo Family History Records Found Advance Directives No Advanced Directives Records FoundNo Advanced Directives Records Found Additional Source Comments INFORMATION SOURCE (unrecogn ized section and content) DATE CREATED AUTHOR 02/23/2022 [facility] DATE CREATED AUTHOR AUTHOR'S ORGANIZ ATFORMERLY [facility] 12/19/2022 [facility] FOR RECORDS PERTAINING TO PATIENTS WHO ARE OR HAVE BEEN ENROLLED IN A CHEMICAL DEPENDENCY/SUBSTANCEABUSE PROGRAM, SOME INFORMATION MAY BE OMITTED. This clinical summary was aggregated from multiple sources. Caution should be exercised in using it in the provision of clinical care. This summary normalizes information from multiple sources, and as a consequence, information in this document may materially change the coding, format and clinical context of patient data. In addition, data may be omitted in some cases. CLINICAL DECISIONS SHOULD BE BASED ON THE PRIMARY CLINICAL RECORDS. [facility] [employer] [address] [facility]. provides no warranty or guarantee of the accuracy or completeness of information in this document.
[2023-09-01 12:11] LABS: Influenza Virus A Antigen Negative; Influenza Virus B Antigen Negative; Internal Control Within Normal Limits
--- NOTE | 2023-09-01 12:18 | XR_ITS ---
The [address] [address] Patient Name: MARILIA OSBORNE MRN: [id number] date: 1990 Sex: F Assigned Patient Location: ER Current Patient Location: Accession/Order Number: [id number] Exam Date: 09/01/2023 12:45 Report Date: 09/01/2023 14:01 At the request of: KLAUDIA MADRIGAL Procedure: XR chest 1V EXAM: XR chest 1V INDICATION: cough. COMPARISON: Chest radiograph 02/04/2023. TECHNIQUE: Single frontal view of the chest FINDINGS: Normal cardiomediastinal contours. No acute infiltrative process. No pleural effusion or pneumothorax. No acute osseous abnormality. XR/XR chest 1V IMPRESSION: No acute cardiopulmonary process. Electronically authenticated by: DYLON NEWBY Date: 09/01/2023 14:01
[2023-09-01 12:52] LABS: Internal Control Within Normal Limits; Strep A Antigen Screen Negative
--- NOTE | 2023-09-01 13:00 | ED_ITS ---
HPI - URI/Sore Throat General Chief Complaint: Upper Respiratory Infection Stated Complaint: URTI Time Seen by Provider: 09/01/23 12:18 History of Present Illness HPI Narrative: patient here with sore throat. Friday she woke up with some nausea and some vomiting that is resolved. Shhe's not had diarrhea. She's not had fever or shortness of breath headache sinus congestion earache or generalized myalgias. She took a Covid test before she came hospital it is negative. She is triaged by x-ray and we did go ahead and do a influenza test and rapid strep. Also did a chest x-ray. Related Data Home Medications Medication Instructions Recorded Confirmed aripiprazole 10 mg tablet 10 mg PO QDAY 02/04/23 02/04/23 buspirone 10 mg tablet 10 mg PO BID 02/04/23 02/04/23 calcium carbonate 600 mg calcium 600 mg PO DAILY 02/04/23 02/04/23 (1,500 mg) tablet (Calcium) calcium phosphate,dibasic 77 1 tab PO QDAY 02/04/23 02/04/23 mg-vitamin D3 400 unit tablet empagliflozin 10 mg tablet 10 mg PO DAILY 02/04/23 02/04/23 (Jardiance) fluoxetine 40 mg capsule 40 mg PO QDAY 02/04/23 02/04/23 insulin regular hum U-500 conc 500 60 unit subcut TID 02/04/23 02/04/23 unit/mL(3 mL) subcut pen (Humulin R U-500 (Conc) Insulin Kwikpen) magnesium 250 mg tablet 250 mg PO DAILY 02/04/23 02/04/23 metformin 1,000 mg tablet 1,000 mg PO BID 02/04/23 02/04/23 pantoprazole 40 mg tablet,delayed 40 mg PO Q12H PRN indigestion 02/04/23 02/04/23 release spironolactone 50 mg tablet 50 mg PO QDAY 02/04/23 02/04/23 trazodone 50 mg tablet 50 mg PO DAILY 02/04/23 02/04/23 amoxicillin 875 mg-potassium 1 tab PO BID 04/22/23 04/22/23 clavulanate 125 mg tablet Allergies Allergy/AdvReac Type Severity Reaction Status Date / Time prednisone AdvReac Severe hyperglycem Verified 04/22/23 19:08 [facility] Social History Smoking status: Current every day smoker Exam Narrative Exam Narrative: examination she does not appear ill she has slight laryngitic voice but certainly no stridor or airway obstruction or or indication of epiglottitis. She has otherwise normal craniofacial structures. There is no facial swelling. No respiratory distress. Her lungs are completely clear with no wheezes rales or rhonchi. They said rapid strep is negative and her pharynx is minimally erythematous with the floor the mouth palate and uvula all being normal Constitutional Vital Signs, click to edit/add: Last Vital Signs Temp 98.1 F 09/01/23 11:06 Pulse 84 09/01/23 11:06 Resp 18 09/01/23 11:06 BP 135/78 09/01/23 11:06 Pulse Ox 99 09/01/23 11:06 Course Vital Signs Vital signs: Vital Signs Temperature 98.1 F 09/01/23 11:06 Pulse Rate 84 09/01/23 11:06 Respiratory Rate 18 09/01/23 11:06 Blood Pressure 135/78 09/01/23 11:06 Pulse Oximetry 99 09/01/23 11:06 Temperature 98.1 F 09/01/23 11:06 Pulse Rate 84 09/01/23 11:06 Respiratory Rate 18 09/01/23 11:06 Blood Pressure 135/78 09/01/23 11:06 Pulse Oximetry 99 09/01/23 11:06 MDM - URI/Sore Throat Lab Data Labs: Lab Results 09/01/23 09/01/23 Range/Units 11:12 12:40 Influenza Type A Ag Negative Influenza Type B Ag Negative Streptococcus Screen Negative Discharge Plan Discharge Chief Complaint: Upper Respiratory Infection Clinical Impression: Laryngitis Patient Disposition: Home, Self-Care Time of Disposition Decision: 13:02 Prescriptions / Home Meds: No Action metformin 1,000 mg tablet 1,000 mg PO BID Jardiance 10 mg tablet 10 mg PO DAILY aripiprazole 10 mg tablet 10 mg PO QDAY buspirone 10 mg tablet 10 mg PO BID trazodone 50 mg tablet 50 mg PO DAILY fluoxetine 40 mg capsule 40 mg PO QDAY spironolactone 50 mg tablet 50 mg PO QDAY calcium phos,dibas-vitamin D3 77-400 mg-unit tablet 1 tab PO QDAY pantoprazole 40 mg tablet,delayed release (DR/EC) 40 mg PO Q12H PRN (Reason: indigestion) magnesium 250 mg tablet 250 mg PO DAILY calcium carbonate [Calcium 600] 600 mg calcium (1,500 mg) tablet 600 mg PO DAILY Humulin R U-500 (Conc) Kwikpen 500 unit/mL (3 mL) insulin pen 60 unit SUBCUT TID Rx Instructions: with sliding scale amoxicillin-pot clavulanate 875-125 mg tablet 1 tab PO BID Additional Instructions: symptomatic treatment with lozenges rest fluids fever reducers Stand Alone Forms: Portal Instructions Referrals: Ariane Wells NP [Primary Care Provider] - 1 week
== END 2023-09-01 13:14 | disposition home or self-care (01) ==
PROVIDERS: Emergency Provider Emergency Medicine Emergency Medical Services; PCP Nurse Practitioner
DX: J04.0 Acute laryngitis (principal); Z79.899 Other long term (current) drug therapy; Z79.4 Long term (current) use of insulin; F17.210 Nicotine dependence, cigarettes, uncomplicated
CPT/HCPCS: 71045; 87070; 87804; 87880; 99284

== ENCOUNTER 2023-09-05 11:39 | Emergency (ER) | payer MEDICAID, SELFPAY ==
[2023-09-05 11:44] VITALS: BP 113/61; PULSE 74; RESP 18; TEMP 36.9; O2SAT 98; BMI 48.4
--- OUTSIDE RECORDS SUMMARY | 2023-09-05 11:55 | XMS_ITS | CCD ---
Author Name Unknown Address [address] [facility] [address] [place] [address] Organization [facility] Care Team Providers Care Health And Safety Consultant Name Role Phone AICHHOLZ, GRINDER BRAKE LINING ARIANE Attending Unavailable AICHHOLZ, GRINDER BRAKE LINING ARIANE Admitting Unavailable AICHHOLZ, GRINDER BRAKE LINING ARIANE Primary Care Unavailable JOSE EDUARDO RIVERS V Consulting Unavailable AICHHOLZ, GRINDER BRAKE LINING ARIANE Consulting Unavailable TIMMIS, DR MEJIA Consulting Unavailable AICHHOLZ, GRINDER BRAKE LINING ARIANE Primary Care Unavailable TIMMIS, DR MEJIA Attending Unavailable TIMMIS, DR MEJIA Admitting Unavailable BRIGGSMAGDI Consulting Unavailable PAY ., DR SWANSON Admitting Unavailable PAY ., DR SWANSON Consulting Unavailable AICHHOLZ, GRINDER BRAKE LINING ARIANE Primary Care Unavailable PAY ., DR SWANSON Attending Unavailable AICHHOLZ, GRINDER BRAKE LINING ARIAEN Primary Care Unavailable JAIDENECK, DR KLAUDIA Kay Attending Unavailabl e KAITLIN, DR KLAUDIA Kay Admitting Unavailabl e KAITLIN, DR KLAUDIA Kay Consulting Unavailabl e JEYSON BLANTON Consulting Unavailable AICHHOLZ, GRINDER BRAKE LINING ARIANE Primary Care Unavailable GABINO MUÑOZ Attending Unavailable GLEN ., GABINO Admitting Unavailable AICHHOLZ, GRINDER BRAKE LINING ARIANE Primary Care Unavailable JOSE EDUARDO RIVERS V Consulting Unavailable JEYSON BLANTON Consulting Unavailable GABINO MUÑOZ Consulting Unavailable PAY ., DR SWANSON Admitting Unavailable PAY ., DR SWANSON Consulting Unavailable AICHHOLZ, GRINDER BRAKE LINING ARIANE Primary Care Unavailable PAY ., DR SWANSON Attending Unavailable GERALDINE LAZAR Consulting Unavailable CORDELL ., DR DEL RIO Attending Unavailable CORDELL ., DR DEL RIO Admitting Unavailable AICHHOLZ, GRINDER BRAKE LINING ARIANE Primary Care Unavailable HAY ., DR DEL RIO Consulting Unavailable GABINO MUÑOZ Attending Unavailable GLEN ., GABINO Admitting Unavailable AICHHOLZ, GRINDER BRAKE LINING ARIANE Primary Care Unavailable DONTRELL DIAZ Consulting Unavailable GABINO MUÑOZ Consulting Unavailable JOSE EDUARDO RHODES Consulting Unavailable AICHHOLZ, GRINDER BRAKE LINING ARIANE Referring Unavailable AICHHOLZ, GRINDER BRAKE LINING ARIANE Primary Care Unavailable YUKI, ROYAD Attending Unavailable YUKI, AHMAD Admitting Unavailable YUKI, AHMAD Consulting Unavailable AICHHOLZ, GRINDER BRAKE LINING ARIANE Consulting Unavailable AICHHOLZ, GRINDER BRAKE LINING ARIANE Attending Unavailable AICHHOLZ, GRINDER BRAKE LINING ARIANE Admitting Unavailable AICHHOLZ, GRINDER BRAKE LINING ARIANE Primary Care Unavailable HAYDE VAN Consulting Unavailable AICHHOLZ, GRINDER BRAKE LINING ARIANE Consulting Unavailable AICHHOLZ, GRINDER BRAKE LINING ARIANE Attending Unavailable AICHHOLZ, GRINDER BRAKE LINING ARIANE Admitting Unavailable AICHHOLZ, GRINDER BRAKE LINING ARIANE Primary Care Unavailable AMINATA BOURGEOIS Attending Unavailable AMINATA BOURGEOIS Admitting Unavailable JEYSON BLANTON Consulting Unavailable AICHHOLZ, GRINDER BRAKE LINING ARIANE Primary Care Unavailable AMINATA BOURGEOIS Consulting Unavailable AICHHOLZ, GRINDER BRAKE LINING ARIANE Primary Care Unavailable DR ROSA APONTE Consulting Unavailable DR ROSA APONTE Attending Unavailable DR ROSA APONTE Admitting Unavailable ELIDA COWAN Consulting Unava ilable Allergies Allergy Classification Reported Allergen(s) Allergy Type Date of Onset Reaction(s) Facility (1 source) predniSONE Drug Allergy [facility] Repository Problems Active Problems Problem Classification [...] 04-04-2022 Chronic Other aftercare (1 source) 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; Translations: [OTH [employer] ARCHITECT 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 THERAPY] Onset: 11-19-2022 Episodic Other aftercare (1 source) snf (current) use of oral hypoglycemic drugs; Translations: [[employer] ARCHITECT USE ORAL 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 DX] Onset: 11-19-2022 Episodic Other aftercare (1 source) 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 Jaz Barajas Basophils/100 WBC (Bld) 0.8 % Normal 0.2-2.0 [facility] Comment on above: Performed By: #### P REGU #### [facility] [address] [address] [address] Jaz Barajas EO # 0.2 103/ul Normal 0.0-0.7 [facility] Comment on above: Performed By: #### P REGU #### [facility] [address] [place] [address] Dr. Jaz Barajas Eosinophils/100 WBC (Bld) 2.1 % Normal 0.9-7.0 [facility] Comment on above: Performed By: #### P REGU #### [facility] [address] [place] [address] Dr. Jaz Barajas Erythrocyte distribution width (RBC) [Ratio] 13.0 % Normal 11.0-15.0 [facility] Comment on above: Performed By: #### P REGU #### [facility] [address] [place] [address] Dr. Jaz Barajas Hematocrit (Bld) [Volume fraction] 41.2 % Normal 36.0-48.0 [facility] Comment on above: Performed By: #### P REGU #### [facility] [address] [place] [address] Dr. Jaz Barajas Hemoglobin (Bld) [Mass/Vol] 13.7 g/dL Normal 12.0-16.0 [facility] Comment on above: Performed By: #### P REGU #### [facility] [address] [place] [address] Dr. Jaz Barajas IG # 0.02 10e3/ul Normal 0.00-0.03 [facility] Comment on above: Performed By: #### P REGU #### [facility] [address] [place] [address] Dr. Jaz Barajas IG % 0.2 % Normal 0.0-0.5 [facility] Comment on above: Performed By: #### P REGU #### [facility] [address] [place] [address] Dr. Jaz Barajas LYMPH # 3.3 103/ul Normal 1.2-3.8 [facility] Comment on above: Performed By: #### P REGU #### [facility] [address] [place] [address] Dr. Jaz Barajas Lymphocytes/100 WBC (Bld) 34.8 % Normal 20.5-60.0 [facility] Comment on above: Performed By: #### P REGU #### [facility] [address] [place] [address] Dr. Jaz Barajas MANUAL DIFF REQ NO Normal [facility] Comment on above: Performed By: #### P REGU #### [facility] [address] [place] [address] Dr. Jaz Barajas MCH (RBC) [Entitic mass] 26.6 pg Critically low 26.7-34.0 [facility] Comment on above: Performed By: #### P REGU #### [facility] [address] [place] [address] Dr. Jaz Barajas MCHC (RBC) [Mass/Vol] 33.3 g/dL Normal 29.9-35.2 [facility] Comment on above: Performed By: #### P REGU #### [facility] [address] [place] [address] Dr. Jaz Barajas MCV (RBC) [Entitic vol] 79.8 fL Critically low 81.0-99.0 [facility] Comment on above: Performed By: #### P REGU #### [facility] [address] [place] [address] Dr. Jaz Barajas MONO # 0.7 103/ul Normal 0.3-0.8 [facility] Comment on above: Performed By: #### P REGU #### [facility] [address] [place] [address] Dr. Jaz Barajas Monocytes/100 WBC (Bld) 7.3 % Normal 1.7-12.0 [facility] Comment on above: Performed By: #### P REGU #### [facility] [address] [place] [address] Dr. Jaz Barajas NEUT # 5.3 103/ul Normal 1.4-6.5 [facility] Comment on above: Performed By: #### P REGU #### [facility] [address] [place] [address] Dr. Jaz Barajas Neutrophils/100 WBC (Bld) 54.8 % Normal 43.0-75.0 [facility] Comment on above: Performed By: #### P REGU #### [facility] [address] [address] [address] Jaz Barajas Platelet mean volume (Bld) [Entitic vol] 10.7 fL Normal 9.5-13.5 [facility] Comment on above: Performed By: #### P REGU #### [facility] [address] [address] [address] Jaz Barajas PLT 284 103/ul Normal 150-450 [facility] Comment on above: Performed By: #### P REGU #### [facility] [address] [address] [address] Jaz Barajas RBC 5.16 106/ul Normal 4.20-5.40 [facility] Comment on above: Performed By: #### P REGU #### [facility] [address] [place] [address] Dr. Jaz Barajas WBC 9.6 103/ul Normal 4.0-11.0 [facility] Comment on above: Performed By: #### P REGU #### [facility] [address] [place] [address] Dr. Jaz Barajas FREE T4on 12-11-2022 Free T4 [Mass/Vol] 1.10 ng/dL Normal 0.76-1.46 [facility] Comment on above: Performed By: #### P ROGLCM #### [facility] [address] [place] [address] Dr. Jaz Barajas LIPID PROFILEon 12-11-2022 CHOL-HDL RATIO NORM SEE BELOW Normal [facility] Comment on above: Result Comment: 3.3 - 4.4 LOW RISK 4.4 - 7.1 AVERAGE RISK 7.1 - 11.0 MODERATE RISK >11.0 HIGH RISK Performed By: #### L IPID, TSH, CMP ####[facility] [address] [address]Dr. Jaz Barajas Cholesterol [Mass/Vol] 168 mg/dL Normal <=200 [facility] Comment on above: Performed By: #### L IPID, TSH, CMP ####[facility] [address] [address]Dr. Jaz Barajas Cholesterol in HDL [Mass/Vol] 32 mg/dL Critically low 40-60 [facility] Comment on above: Performed By: #### L IPID, TSH, CMP ####[facility] [address] [address]Dr. Jaz Barajas Cholesterol in LDL [Mass/Vol] 121.8 mg/dL Normal [facility] Comment on above: Performed By: #### L IPID, TSH, CMP ####[facility] [address] [address]Dr. Jaz Barajas Cholesterol.total/ Cholesterol in HDL [Mass ratio] 5.3 {ratio} Normal [facility] Comment on above: Performed By: #### L IPID, TSH, CMP ####[facility] [address] [address]Dr. Jaz Barajas HDL NORMAL > or = 60 mg/dl - LO W CARDIOVASCULAR RISK <40 mg/dl - HIGH CARDIOVASCULAR RISK Normal [facility] Comment on above: Performed By: #### L IPID, TSH, CMP ####[facility] [address] [address]Dr. Jaz Barajas LDL CALC NORMAL SEE BELOW Normal [facility] Comment on above: Result Comment: <100 mg/dl OPTIMAL 100 - 129 mg/dl NEAR OR ABOVE OPTIMAL 130 - 159 mg/dl BORDERLINE HIGH 160 - 189 mg/dl HIGH >190 mg/dl VERY HIGH Performed By: #### L IPID, TSH, CMP ####[facility] [address] [address]Dr. Jaz Barajas Triglyceride [Mass/Vol] 71 mg/dL Normal <=150 [facility] Comment on above: Performed By: #### L IPID, TSH, CMP ####[facility] [address] [address]Dr. Jaz Barajas VLDL CALC 14.2 mg/dL Normal [facility] Comment on above: Performed By: #### L IPID, TSH, CMP ####[facility] [address] [address]Dr. Jaz Barajas MICROALBUMIN, RAND URon 04-1 mALB <1.3 Normal <=30.0 [facility] Comment on above: Performed By: #### P REGU #### [facility] [address] [place], [place] [address] Dr. Jaz Barajas PROF 14(COMP METB)on 023 Albumin [Mass/Vol] 3.7 g/dL Normal 3.4-5.0 [facility] Comment on above: Performed By: #### L IPID, TSH, CMP ####[facility] [address] [id number]. Jaz Barajas Albumin/Globulin [Mass ratio] 0.8 {ratio} Normal [facility] Comment on above: Performed By: #### L IPID, TSH, CMP ####[facility] [address] [id number]. Jaz Barajas ALP [Catalytic activity/Vol] 90 U/L Normal 46-116 [facility] Comment on above: Performed By: #### L IPID, TSH, CMP ####[facility] [address] [id number]. Jaz Barajas ALT [Catalytic activity/Vol] 106 U/L Critically high 14-59 [facility] Comment on above: Performed By: #### L IPID, TSH, CMP ####[facility] [address] [id number]. Jaz Barajas Anion gap [Moles/Vol] 12.5 mmol/L Normal [facility] Comment on above: Performed By: #### L IPID, TSH, CMP ####[facility] [address] [id number]. Jaz Barajas AST [Catalytic activity/Vol] 43 U/L Critically high 15-37 [facility] Comment on above: Performed By: #### L IPID, TSH, CMP ####[facility] [address] [id number] Barajas Bilirubin [Mass/Vol] 0.4 mg/dL Normal 0.2-1.0 [facility] Comment on above: Performed By: #### L IPID, TSH, CMP ####[facility] [address] [phone]. Jaz Barajas Calcium [Mass/Vol] 9.0 mg/dL Normal 8.5-10.1 [facility] Comment on above: Performed By: #### L IPID, TSH, CMP ####[facility] [address] [address]Dr. Jaz Barajas Chloride [Moles/Vol] 104 mmol/L Normal 98-107 [facility] Comment on above: Performed By: #### L IPID, TSH, CMP ####[facility] [address] [place], [place] [address]Dr. Jaz Barajas CO2 [Moles/Vol] 25.8 mmol/L Normal 21.0-32.0 [facility] Comment on above: Performed By: #### L IPID, TSH, CMP ####[facility] [address] [place], [place] [address]Dr. Jaz Barajas Creatinine [Mass/Vol] 0.76 mg/dL Normal 0.55-1.02 [facility] Comment on above: Performed By: #### L IPID, TSH, CMP ####[facility] [address] [place], [place] [address]Dr. Jaz Barajas EGFR-AF MAURITIAN >60 Normal >=60 [facility] Comment on above: Performed By: #### L IPID, TSH, CMP ####[facility] [address] [place], [place] [address]Dr. Jaz Barajas EGFR-NON AF MAURITIAN >60 Normal >=60 [facility] Comment on above: Performed By: #### L IPID, TSH, CMP ####[facility] [address] [place], [place] [address]Dr. Jaz Barajas Globulin (S) [Mass/Vol] 4.4 g/dL Normal [facility] Comment on above: Performed By: #### L IPID, TSH, CMP ####[facility] [address] [place], [place] [address]Dr. Jaz Barajas Glucose [Mass/Vol] 228 mg/dL Critically high 74-106 T [facility] Comment on above: Performed By: #### L IPID, TSH, CMP ####[facility] [address] [address]Dr. Jaz Barajas Potassium [Moles/Vol] 4.3 mmol/L Normal 3.5-5.1 [facility] Comment on above: Performed By: #### L IPID, TSH, CMP ####[facility] [address] [place], [place] [address]Dr. Jaz Barajas Protein [Mass/Vol] 8.1 g/dL Normal 6.4-8.2 [facility] Comment on above: Performed By: #### L IPID, TSH, CMP ####[facility] [address] [place], [place] [address]Dr. Hannahisela Barajas Sodium [Moles/Vol] 138 mmol/L Normal 136-145 [facility] Comment on above: Performed By: #### L IPID, TSH, CMP ####[facility] [address] [place], [place] [address]Dr. Jaz Karl Urea nitrogen [Mass/Vol] 21.0 mg/dL Critically high 7.0-18.0 [facility] Comment on above: Performed By: #### L IPID, TSH, CMP ####[facility] [address] [place], [place] [address]Dr. Jaz Barajas Urea nitrogen/Creatinin e [Mass ratio] 27.6 mg/mg Normal [facility] Comment on above: Performed By: #### L IPID, TSH, CMP ####[facility] [address] [place], [place] [address]Dr. Jaz Karl TSHon 12-11-2022 TSH 3.602 uIU/mL Normal 0.358-3.740 [facility] Comment on above: Performed By: #### L IPID, TSH, CMP ####[facility] [address] [place], [place] [address]Dr. Jaz Barajas UA RANDOM W/MICROSCOPICon BACTERIA NONE SEEN Normal NONE SEEN [facility] Comment on above: Performed By: #### U AMIC ####[facility] [address] [address]Dr. Jaz Barajas Bilirubin Ql (U) Negative Normal NEGATIVE [facility] Comment on above: Performed By: #### U AMIC ####[facility] [address] [address]Dr. Jaz Barajas CAST NONE SEEN Normal NONE SEEN [facility] Comment on above: Performed By: #### U AMIC ####[facility] [address] [address]Dr. Jaz Barajas Clarity (U) CLEAR Normal CLEAR [facility] Comment on above: Performed By: #### U AMIC ####[facility] [address] [place], [place] [address]Dr. Jaz Barajas Color (U) LT. YELLOW Normal YELLOW [facility] Comment on above: Performed By: #### U AMIC ####[facility] [address] [place], [place] [address]Dr. Jaz Barajas Crystals LM Nom (Urine sed) NONE SEEN Normal NONE SEEN [facility] Comment on above: Performed By: #### U AMIC ####[facility] [address] [place], [place] [address]Dr. Jaz Barajas Epithelial cells LM Ql (Urine sed) RARE Normal NONE SEEN /RARE [facility] Comment on above: Performed By: #### U AMIC ####[facility] [address] [address]Dr. Jaz Barajas Glucose Ql (U) >1000 Abnormal NEGATIVE [facility] Comment on above: Performed By: #### U AMIC ####[facility] [address] [address]Dr. Jaz Barajas Hemoglobin Ql (U) Negative Normal NEGATIVE [facility] Comment on above: Performed By: #### U AMIC ####[facility] [address] [address]Dr. Jaz Barajas Ketones Ql (U) Negative Normal NEGATIVE [facility] Comment on above: Performed By: #### U AMIC ####[facility] [address] [address]Dr. Jaz Barajas LEUKOCYTES Negative Normal NEGATIVE [facility] Comment on above: Performed By: #### U AMIC ####[facility] [address] [address]Dr. Jaz Barajas MUCOUS NONE SEEN Normal NONE SEEN [facility] Comment on above: Performed By: #### U AMIC ####[facility] [address] [address]Dr. Jaz Barajas Nitrite Ql (U) Negative Normal NEGATIVE [facility] Comment on above: Performed By: #### U AMIC ####[facility] [address] [place], [place] [address]Dr. Jaz Barajas pH (U) 6.0 [pH] Normal 5-9 [facility] Comment on above: Performed By: #### U AMIC ####[facility] [address] [place], [place] [address]Dr. Jaz Barajas RBC NONE SEEN Abnormal 0-2 [facility] Comment on above: Performed By: #### U AMIC ####[facility] [address] [place], [place] [address]Dr. Jaz Barajas SPEC GRAVITY 1.020 Normal 1.005-<=1.02 5 [facility] Comment on above: Performed By: #### U AMIC ####[facility] [address] [place], [place] [address]Dr. Jaz Barajas UA PROTEIN Negative Normal NEGATIVE/ TRACE [facility] Comment on above: Performed By: #### U AMIC ####[facility] [address] [place], [place] [address]Dr. Jaz Barajas Urobilinogen Qn (U) 0.2 {Oxana'U}/dL Normal 0.2 - 1.0 [facility] Comment on above: Performed By: #### U AMIC ####[facility] [address] [place], [place] [address]Dr. Jaz Karl WBC 0-2 Abnormal NONE SEEN [facility] Comment on above: Performed By: #### U AMIC ####[facility] [address] [address]Dr. Jaz Barajas VITAMIN D 25 OHon 12-11-2022 VIT D 25-OH 30.9 ng/mL Normal [facility] Comment on above: Performed By: #### P VALENTINELCM #### [facility] [address] [place] [address] Dr. Jaz Barajas VIT D RANGES SEE BELOW Normal [facility] Comment on above: Result Comment: <20 ng/mL Vit D deficient 20 - <30 ng/mL Vit D insufficient 30 - 100 ng/mL Vit D sufficient >100 ng/mL Potential Toxicity Performed By: #### P ROGLCM #### [facility] [address] [place] [address] Dr. Jaz Barajas CBC AUTO DIFFon 11-15-2022 BASO # 0.1 103/ul Normal 0.0-0.1 [facility] Comment on above: Performed By: #### P ROGLCM #### [facility] [address] [place] [address] Dr. Jaz Barajas Basophils/100 WBC (Bld) 0.6 % Normal 0.2-2.0 [facility] Comment on above: Performed By: #### P ROGLCM #### [facility] [address] [place] [address] Dr. Jaz Barajas EO # 0.2 103/ul Normal 0.0-0.7 [facility] Comment on above: Performed By: #### P ROGLCM #### [facility] [address] [place] [address] Dr. Jaz Barajas Eosinophils/100 WBC (Bld) 2.0 % Normal 0.9-7.0 [facility] Comment on above: Performed By: #### P ROGLCM #### [facility] [address] [place] [address] Dr. Jaz Barajas Erythrocyte distribution width (RBC) [Ratio] 13.3 % Normal 11.0-15.0 [facility] Comment on above: Performed By: #### P ROGLCM #### [facility] [address] [place] [address] Dr. Jaz Barajas Hematocrit (Bld) [Volume fraction] 40.4 % Normal 36.0-48.0 [facility] Comment on above: Performed By: #### P ROGLCM #### [facility] [address] [place] [address] Dr. Jaz Barajas Hemoglobin (Bld) [Mass/Vol] 13.5 g/dL Normal 12.0-16.0 [facility] Comment on above: Performed By: #### P ROGLCM #### [facility] [address] [place] [address] Dr. Jaz Barajas IG # 0.03 10e3/ul Normal 0.00-0.03 [facility] Comment on above: Performed By: #### P ROGLCM #### [facility] [address] [place] [address] Dr. Jaz Barajas IG % 0.3 % Normal 0.0-0.5 [facility] Comment on above: Performed By: #### P ROGLCM #### [facility] [address] [place] [address] Dr. Jaz Barajas LYMPH # 3.3 103/ul Normal 1.2-3.8 [facility] Comment on above: Performed By: #### P ROGLCM #### [facility] [address] [place] [address] Dr. Jaz Barajas Lymphocytes/100 WBC (Bld) 30.7 % Normal 20.5-60.0 [facility] Comment on above: Performed By: #### P ROGLCM #### [facility] [address] [place] [address] Dr. Jaz Barajas MANUAL DIFF REQ NO Normal [facility] Comment on above: Performed By: #### P ROGLCM #### [facility] [address] [place] [address] Dr. Jaz Barajas MCH (RBC) [Entitic mass] 26.6 pg Critically low 26.7-34.0 The [facility] Comment on above: Performed By: #### P ROGLCM #### [facility] [address] [place] [address] Dr. Jaz Barajas MCHC (RBC) [Mass/Vol] 33.4 g/dL Normal 29.9-35.2 The [facility] Comment on above: Performed By: #### P ROGLCM #### [facility] [address] [address] [address] Jaz Barajas MCV (RBC) [Entitic vol] 79.7 fL Critically low 81.0-99.0 The [facility] Comment on above: Performed By: #### P ROGLCM #### [facility] [address] [address] [address] Jaz Barajas MONO # 0.8 103/ul Normal 0.3-0.8 The [facility] Comment on above: Performed By: #### P ROGLCM #### [facility] [address] [address] [address] Jaz Barajas Monocytes/100 WBC (Bld) 7.4 % Normal 1.7-12.0 The [facility] Comment on above: Performed By: #### P ROGLCM #### [facility] [address] [address] [address] Jaz Barajas NEUT # 6.3 103/ul Normal 1.4-6.5 The [facility] Comment on above: Performed By: #### P ROGLCM #### [facility] [address] [address] [address] Jaz Barajas Neutrophils/100 WBC (Bld) 59.0 % Normal 43.0-75.0 The [facility] Comment on above: Performed By: #### P ROGLCM #### [facility] [address] [address] [address] Jaz Barajas Platelet mean volume (Bld) [Entitic vol] 10.7 fL Normal 9.5-13.5 The [facility] Comment on above: Performed By: #### P ROGLCM #### [facility] [address] [address] [address] Jaz Barajas PLT 326 103/ul Normal 150-450 The [facility] Comment on above: Performed By: #### P ROGLCM #### [facility] [address] [place], [place] [address] Dr. Jaz Barajas RBC 5.07 106/ul Normal 4.20-5.40 [facility] Comment on above: Performed By: #### P ROGLCM #### [facility] [address] [place], [place] [address] Dr. Jaz Barajas WBC 10.7 103/ul Normal 4.0-11.0 [facility] Comment on above: Performed By: #### P ROGLCM #### [facility] [address] [place], [place] [address] ABD/PELV W CONon [...] GERALDINE LAZAR Date: 2022-11-15 09:13 Normal The [facility] ER URINE PROFILEon 3 Bilirubin Ql (U) Negative Normal NEGATIVE [facility] Comment on above: Performed By: #### P ROGLCM #### [facility] [address] [address] [address] Jaz Barajas Clarity (U) CLEAR Normal CLEAR [facility] Comment on above: Performed By: #### P ROGLCM #### [facility] [address] [place] [address] Dr. Jaz Barajas Color (U) LT. YELLOW Normal YELLOW [facility] Comment on above: Performed By: #### P ROGLCM #### [facility] [address] [address] [address] Jaz Barajas ERUAHD A micrscopic examina tion will be performed if indicated. Normal [facility] Comment on above: Performed By: #### P ROGLCM #### [facility] [address] [place] [address] Dr. Jaz Barajas Glucose Ql (U) 1000 mg/dl Abnormal NEGATIVE [facility] Comment on above: Performed By: #### P ROGLCM #### [facility] [address] [place] [address] Dr. Jaz Barajas Hemoglobin Ql (U) Negative Normal NEGATIVE [facility] Comment on above: Performed By: #### P ROGLCM #### [facility] [address] [place] [address] Dr. Jaz Barajas Ketones Ql (U) Negative Normal NEGATIVE [facility] Comment on above: Performed By: #### P ROGLCM #### [facility] [address] [address] [address] Jaz Barajas LEUKOCYTES Negative Normal NEGATIVE [facility] Comment on above: Performed By: #### P ROGLCM #### [facility] [address] [address] [address] Jaz Barajas Nitrite Ql (U) Negative Normal NEGATIVE [facility] Comment on above: Performed By: #### P ROGLCM #### [facility] [address] [place] [address] Dr. Jaz Barajas pH (U) 6.0 [pH] Normal 5-9 [facility] Comment on above: Performed By: #### P ROGLCM #### [facility] [address] [address] [address] Jaz Barajas SPEC GRAVITY 1.015 Normal 1.005-<=1.02 5 [facility] Comment on above: Performed By: #### P ROGLCM #### [facility] [address] [address] [address] Jaz Barajas UA PROTEIN Negative Normal NEGATIVE/ TRACE The [facility] Comment on above: Performed By: #### P ROGLCM #### [facility] [address] [address] [address] Jaz Barajas UR MICRO IND NOT INDICATED Normal [facility] Comment on above: Performed By: #### P ROGLCM #### [facility] [address] [address] [address] Jaz Barajas Urobilinogen Qn (U) 0.2 {Oxana'U}/dL Normal 0.2 - 1.0 [facility] Comment on above: Performed By: #### P ROGLCM #### [facility] [address] [address] [address] Jaz Barajas LIPASEon 11-15-2022 Lipase [Catalytic activity/Vol] 73.0 U/L Normal 73.0-393.0 [facility] Comment on above: Performed By: #### P REGU #### [facility] [address] [address] [address] Jaz Barajas URon 11-15-2022 , QUAL Negative Normal NEGATIVE [facility] Comment on above: Performed By: #### E RUR, PREGU ####[facility] [address] [address]Dr. Jaz Barajas PROF 14(COMP METB)on 023 Albumin [Mass/Vol] 3.6 g/dL Normal 3.4-5.0 [facility] Comment on above: Performed By: #### P REGU #### [facility] [address] [place] [address] Dr. Jaz Barajas Albumin/Globulin [Mass ratio] 0.9 {ratio} Normal [facility] Comment on above: Performed By: #### P REGU #### [facility] [address] [address] [address] Jaz Barajas ALP [Catalytic activity/Vol] 98 U/L Normal 46-116 [facility] Comment on above: Performed By: #### P REGU #### [facility] [address] [address] [address] Jaz Barajas ALT [Catalytic activity/Vol] 138 U/L Critically high 14-59 [facility] Comment on above: Performed By: #### P REGU #### [facility] [address] [address] [address] Jaz Barajas Anion gap [Moles/Vol] 13.4 mmol/L Normal [facility] Comment on above: Performed By: #### P REGU #### [facility] [address] [address] [address] Jaz Barajas AST [Catalytic activity/Vol] 61 U/L Critically high 15-37 [facility] Comment on above: Performed By: #### P REGU #### [facility] [address] [address] [address] Jaz Barajas Bilirubin [Mass/Vol] 0.2 mg/dL Normal 0.2-1.0 [facility] Comment on above: Performed By: #### P REGU #### [facility] [address] [address] [address] Jaz Barajas Calcium [Mass/Vol] 9.4 mg/dL Normal 8.5-10.1 The [facility] Comment on above: Performed By: #### P REGU #### [facility] [address] [address] [address] Jaz Barajas Chloride [Moles/Vol] 104 mmol/L Normal 98-107 The [facility] Comment on above: Performed By: #### P REGU #### [facility] [address] [address] [address] Jaz Barajas CO2 [Moles/Vol] 24.7 mmol/L Normal 21.0-32.0 [facility] Comment on above: Performed By: #### P REGU #### [facility] [address] [address] [address] Jaz Barajas Creatinine [Mass/Vol] 0.69 mg/dL Normal 0.55-1.02 [facility] Comment on above: Performed By: #### P REGU #### [facility] [address] [address] [address] Jaz Barajas EGFR-AF MAURITIAN >60 Normal >=60 [facility] Comment on above: Performed By: #### P REGU #### [facility] [address] [address] [address] Jaz Barajas EGFR-NON AF MAURITIAN >60 Normal >=60 [facility] Comment on above: Performed By: #### P REGU #### [facility] [address] [address] [address] Jaz Barajas Globulin (S) [Mass/Vol] 4.2 g/dL Normal [facility] Comment on above: Performed By: #### P REGU #### [facility] [address] [address] [address] Jaz Barajas Glucose [Mass/Vol] 339 mg/dL Critically high 74-106 T [facility] Comment on above: Performed By: #### P REGU #### [facility] [address] [address] [address] Jaz Barajas Potassium [Moles/Vol] 4.1 mmol/L Normal 3.5-5.1 The [facility] Comment on above: Performed By: #### P REGU #### [facility] [address] [address] [address] Jaz Barajas Protein [Mass/Vol] 7.8 g/dL Normal 6.4-8.2 The [facility] Comment on above: Performed By: #### P REGU #### [facility] [address] [address] [address] Jaz Barajas Sodium [Moles/Vol] 138 mmol/L Normal 136-145 [facility] Comment on above: Performed By: #### P REGU #### [facility] [address] [place], [place] [address] Dr. Jaz Barajas Urea nitrogen [Mass/Vol] 17.0 mg/dL Normal 7.0-18.0 [facility] Comment on above: Performed By: #### P REGU #### [facility] [address] [place], [place] [address] Dr. Jaz Barajas Urea nitrogen/Creatinin e [Mass ratio] 24.6 mg/mg Normal [facility] Comment on above: Performed By: #### P REGU #### [facility] [address] [place], [place] [address] Dr. Jaz Barajas CULTURE WOUNDon 11-13-2022 CULTURE [...] S F Tetracycline >=16 R F Normal [facility] Comment on above: Performed By: #### W OUNDCX ####[facility] [address] [place], [place] [address]HzDr. Jaz Barajas Covid-19 PCR (CVDTB)on 08-01 SARS-CoV-2 (COVID-19) RNA REANNA+probe Ql (Unsp spec) Not detected Normal NOT DETECTED [facility] Comment on above: Result Comment: This test is not yet approved or cleared by the [place] FDA. When there are no FDA-approved or cleared tests available, and other criteria are met, FDA can make tests available under an emergency access mechanism called an Emergency Use Authorization (EUA). The EUA for this test is supported by the [place] of Health and Human Service's (HHS's) declaration [...] SARS-CoV-2. Performed By: #### P ROGLCM #### [facility] [address] [place] [address] Dr. Jaz Barajas INFLUENZA A AND B [facility] 08-18 INFLUANE SEE BELOW Normal [facility] Comment on above: Result Comment: Nega tive for Flu A protein angiten. Infection due to Flu A cannot be ruled out. Flu A angiten in the sample may be below the detection limit of the test. Performed By: #### P ROGLCM #### [facility] [address] [place] [address] Dr. Jaz Barajas INFLUBNEG SEE BELOW Normal [facility] Comment on above: Result Comment: Nega tive for Flu B protein antigen. Infection due to Flu B cannot be ruled out. Flu B antigen in the sample may be below the detection limit of the test. Performed By: #### P ROGLCM #### [facility] [address] [place] [address] Dr. Jaz Barajas INFLUENZA A AG Negative Normal NEGATIVE SEE COMMENT [facility] Comment on above: Performed By: #### P ROGLCM #### [facility] [address] [place] [address] Dr. Jaz Barajas INFLUENZA B AG Negative Normal NEGATIVE SEE COMMENT The [facility] Comment on above: Performed By: #### P ROGLCM #### [facility] [address] [place] [address] Dr. Jaz Barajas INTERNAL CONTROLS Within Normal Limits Normal Wi thin Normal Limits The [facility] Comment on above: Performed By: #### P ROGLCM #### [facility] [address] [place] [address] Dr. Jaz Barajas POINT OF CARE GLUCOSEon 12- Glucose [Mass/Vol] 310 mg/dL Critically high 74-106 T he [facility] Comment on above: Performed By: #### P ROGLCM #### [facility] [address] [place], [place] [address] Dr. Jaz Barajas XR CHEST 1 Von [...] EDUARDO RHODES Date: 2022-08-18 15:33 Normal The [facility] PREG HCG QUALon 05-14-2022 , QUAL Negative Normal NEGATIVE [facility] Comment on above: Performed By: #### P REG ####[facility] [address] [address]Dr. Jaz Barajas CBC AUTO DIFFon 05-08-2022 BASO # 0.1 103/ul Normal 0.0-0.1 [facility] Comment on above: Performed By: #### C BC ####[facility] [address] [address]Dr. Jaz Barajas Basophils/100 WBC (Bld) 0.6 % Normal 0.2-2.0 [facility] Comment on above: Performed By: #### C BC ####[facility] [address] [address]Dr. Jaz Barajas EO # 0.2 103/ul Normal 0.0-0.7 [facility] Comment on above: Performed By: #### C BC ####[facility] [address] [address]Dr. Jaz Barajas Eosinophils/100 WBC (Bld) 1.5 % Normal 0.9-7.0 The [facility] Comment on above: Performed By: #### C BC ####[facility] [address] [id number]. Jaz Barajas Erythrocyte distribution width (RBC) [Ratio] 12.6 % Normal 11.0-15.0 [facility] Comment on above: Performed By: #### C BC ####[facility] [address] [address]Dr. Jaz Barajas Hematocrit (Bld) [Volume fraction] 38.7 % Normal 36.0-48.0 [facility] Comment on above: Performed By: #### C BC ####[facility] [address] [address]Dr. Jaz Barajas Hemoglobin (Bld) [Mass/Vol] 12.9 g/dL Normal 12.0-16.0 [facility] Comment on above: Performed By: #### C BC ####[facility] [address] [place], [place] [address]Dr. Jaz Barajas IG # 0.02 10e3/ul Normal 0.00-0.03 [facility] Comment on above: Performed By: #### C BC ####[facility] [address] [place], [place] [address]Dr. Jaz Barajas IG % 0.2 % Normal 0.0-0.5 [facility] Comment on above: Performed By: #### C BC ####[facility] [address] [place], [place] [address]DrPratibha Barajas LYMPH # 3.5 103/ul Normal 1.2-3.8 [facility] Comment on above: Performed By: #### C BC ####[facility] [address] [place], [place] [address]Dr. Jaz Barajas Lymphocytes/100 WBC (Bld) 34.4 % Normal 20.5-60.0 The [facility] Comment on above: Performed By: #### C BC ####[facility] [address] [place], [place] [address]DrPratibha Barajas MANUAL DIFF REQ NO Normal The [facility] Comment on above: Performed By: #### C BC ####[facility] [address] [place], [place] [address]DrPratibha Barajas MCH (RBC) [Entitic mass] 27.2 pg Normal 26.7-34.0 [facility] Comment on above: Performed By: #### C BC ####[facility] [address] [id number]. Jaz Karl MCHC (RBC) [Mass/Vol] 33.3 g/dL Normal 29.9-35.2 [facility] Comment on above: Performed By: #### C BC ####[facility] [address] [id number] Barajas MCV (RBC) [Entitic vol] 81.6 fL Normal 81.0-99.0 [facility] Comment on above: Performed By: #### C BC ####[facility] [address] [place], [place] [address]Dr. Jaz Barajas MONO # 0.7 103/ul Normal 0.3-0.8 [facility] Comment on above: Performed By: #### C BC ####[facility] [address] [place], [place] [address]Dr. Jaz Barajas Monocytes/100 WBC (Bld) 7.0 % Normal 1.7-12.0 [facility] Comment on above: Performed By: #### C BC ####[facility] [address] [place], [place] [address]Dr. Jaz Barajas NEUT # 5.7 103/ul Normal 1.4-6.5 [facility] Comment on above: Performed By: #### C BC ####[facility] [address] [place], [place] [address]DrPratibha Barajas Neutrophils/100 WBC (Bld) 56.3 % Normal 43.0-75.0 The [facility] Comment on above: Performed By: #### C BC ####[facility] [address] [place], [place] [id number] Barajas Platelet mean volume (Bld) [Entitic vol] 11.0 fL Normal 9.5-13.5 The [facility] Comment on above: Performed By: #### C BC ####[facility] [address] [place], [place] [address]Dr. Jaz Barajas PLT 274 103/ul Normal 150-450 The [facility] Comment on above: Performed By: #### C BC ####[facility] [address] [place], [place] [address]Ry. Jza Barajas RBC 4.74 106/ul Normal 4.20-5.40 The [facility] Comment on above: Performed By: #### C BC ####[facility] [address] [place], [place] [address]EaPratibha Barajas WBC 10.0 103/ul Normal 4.0-11.0 The [facility] Comment on above: Performed By: #### C BC ####[facility] [address] [place], [place] [address]YmPratibha Barajsa Covid-19 PCR ([facility])on SARS-CoV-2 (COVID-19) RNA REANNA+probe Ql (Unsp spec) Not detected Normal NOT DETECTED The [facility] Comment on above: Result Comment: This test is not yet approved or cleared by the [place] FDA. When there are no FDA-approved or cleared tests available, and other criteria are met, FDA can make tests available under an emergency access mechanism called an Emergency Use Authorization (EUA). The EUA for this test is supported by the [place] of Health and Human Service's (HHS's) declaration [...] SARS-CoV-2. Performed By: #### P REGU #### [facility] [address] [place], [place] [address] Dr. Jaz Barajas PROF CHEM 8 (BAS METB)on Anion gap [Moles/Vol] 10.1 mmol/L Normal [facility] Comment on above: Performed By: #### P REGU #### [facility] [address] [address] [address] Jaz Barajas Calcium [Mass/Vol] 9.0 mg/dL Normal 8.5-10.1 [facility] Comment on above: Performed By: #### P REGU #### [facility] [address] [address] [address] Jaz Barajas Chloride [Moles/Vol] 99 mmol/L Normal 98-107 [facility] Comment on above: Performed By: #### P REGU #### [facility] [address] [address] [address] Jaz Barajas CO2 [Moles/Vol] 29.1 mmol/L Normal 21.0-32.0 [facility] Comment on above: Performed By: #### P REGU #### [facility] [address] [place] [address] Dr. Jaz Barajas Creatinine [Mass/Vol] 0.80 mg/dL Normal 0.55-1.02 [facility] Comment on above: Performed By: #### P REGU #### [facility] [address] [address] [address] Jaz Barajas EGFR-AF MAURITIAN >60 Normal >=60 [facility] Comment on above: Performed By: #### P REGU #### [facility] [address] [place] [address] Dr. Jaz Barajas EGFR-NON AF MAURITIAN >60 Normal >=60 [facility] Comment on above: Performed By: #### P REGU #### [facility] [address] [place] [address] Dr. Jaz Barajas Glucose [Mass/Vol] 217 mg/dL Critically high 74-106 [facility] Comment on above: Performed By: #### P REGU #### [facility] [address] [address] [address] Jaz Barajas Potassium [Moles/Vol] 4.2 mmol/L Normal 3.5-5.1 The [facility] Comment on above: Result Comment: spec imen slightly hemolyzed may affect K+ result Performed By: #### P REGU #### [facility] [address] [place], [place] [address] Dr. Jaz Barajas Sodium [Moles/Vol] 134 mmol/L Critically low 136-145 Th e [facility] Comment on above: Performed By: #### P REGU #### [facility] [address] [place], [place] [address] Dr. Jaz Barajas Urea nitrogen [Mass/Vol] 11.0 mg/dL Normal 7.0-18.0 [facility] Comment on above: Performed By: #### P REGU #### [facility] [address] [place], [place] [address] Dr. Jaz Barajas Urea nitrogen/Creatinin e [Mass ratio] 13.8 mg/mg Normal [facility] Comment on above: Performed By: #### P REGU #### [facility] [address] [place], [place] [address] ABD/PELV W CONon [...] JEYSON BLANTON Date: 2022-04-18 12:31 Normal The [facility] ER URINE PROFILEon 2 Bilirubin Ql (U) Negative Normal NEGATIVE The [facility] Comment on above: Performed By: #### E RUR, PREGU ####[facility] [address] [place], [place] [address]Dr. Jaz Barajas Clarity (U) CLEAR Normal CLEAR The [facility] Comment on above: Performed By: #### E RUR, PREGU ####[facility] [address] [place], [place] [address]Dr. Jaz Barajas Color (U) LT. YELLOW Normal YELLOW The [facility] Comment on above: Performed By: #### E RUR, PREGU ####[facility] [address] [place], [place] [address]Dr. Jaz Barajas ERUAHD A micrscopic examina tion will be performed if indicated. Normal The [facility] Comment on above: Performed By: #### E RUR, PREGU ####[facility] [address] [place], [place] [address]Dr. Jaz Barajas Glucose Ql (U) 1000 mg/dl Abnormal NEGATIVE The [facility] Comment on above: Performed By: #### E RUR, PREGU ####[facility] [address] [place], [place] [address]Dr. Jaz Barajas Hemoglobin Ql (U) Negative Normal NEGATIVE The [facility] Comment on above: Performed By: #### E RUR, PREGU ####[facility] [address] [place], [place] [address]Dr. Jaz Barajas Ketones Ql (U) Negative Normal NEGATIVE The [facility] Comment on above: Performed By: #### E RUR, PREGU ####[facility] [address] [address]Dr. Jaz Barajas LEUKOCYTES Negative Normal NEGATIVE The [facility] Comment on above: Performed By: #### E RUR, PREGU ####[facility] [address] [place], [place] [address]Dr. Jaz Barajas Nitrite Ql (U) Negative Normal NEGATIVE The [facility] Comment on above: Performed By: #### E RUR, PREGU ####[facility] [address] [address]Dr. Jaz Barajas pH (U) 6.5 [pH] Normal 5-9 The [facility] Comment on above: Performed By: #### E RUR, PREGU ####[facility] [address] [place], [place] [address]Dr. Jaz Barajas SPEC GRAVITY 1.010 Normal 1.005-<=1.02 5 The [facility] Comment on above: Performed By: #### Neva RUR, PREGU ####[facility] [address] [place], [place] [address]Dr. Jaz Barajas UA PROTEIN Negative Normal NEGATIVE/ TRACE The [facility] Comment on above: Performed By: #### E RUR, PREGU ####[facility] [address] [place], [place] [address]Dr. Jaz Barajas UR MICRO IND NOT INDICATED Normal The [facility] Comment on above: Performed By: #### E RUR, PREGU ####[facility] [address] [place], [place] [address]Dr. Jaz Barajas Urobilinogen Qn (U) 0.2 {Oxana'U}/dL Normal 0.2 - 1.0 [facility] Comment on above: Performed By: #### E RUR, PREGU ####[facility] [address] [place], [place] [address]Dr. Jaz Barajas URon 04-18-2022 , QUAL Negative Normal NEGATIVE [facility] Comment on above: Performed By: #### E RUR, PREGU ####[facility] Eng[address] [place], [place] [address]Dr. Jaz Barajas 17-OH PROGESTERONE, LC/MSon 04-05-2022 17-OH Progesterone LCMS 43 ng/dL Normal [facility] Comment on above: Result Comment: Adul t Female Follicular 15 - 70 Luteal 35 - 290 Performed By: #### P ROGLCM #### [facility] [address] [address] [address] Jaz Barajas ANDROSTENEDINE LC/MSon 04-05 Androstenedione LCMS 111 ng/dL Normal 41-262 [facility] Comment on above: Result Comment: This test was developed and its performance characteristics determined by [employer]. It has not been cleared or approved by the Food and Drug Administration. Performed By: #### A NDROST #### [facility] [address] [address] [address] Jaz Barajas TESTOSTERONE, TOTALon 2021 Testosterone [Mass/Vol] 70 ng/dL Critically high 8-60 [facility] Comment on above: Performed By: #### T ESTTOT ####[facility] [address] [address]DrPratibha Barajas PROF CHEM 8 (BAS METB)on Anion gap [Moles/Vol] 11.5 mmol/L Normal [facility] Comment on above: Performed By: #### B MP ####[facility] [address] [address]Dr. Jaz Barajas Calcium [Mass/Vol] 9.1 mg/dL Normal 8.5-10.1 [facility] Comment on above: Performed By: #### B MP ####[facility] [address] [address]DrPratibha Barajas Chloride [Moles/Vol] 103 mmol/L Normal 98-107 [facility] Comment on above: Performed By: #### B MP ####[facility] [address] [id number] Barajas CO2 [Moles/Vol] 28.0 mmol/L Normal 21.0-32.0 [facility] Comment on above: Performed By: #### B MP ####[facility] [address] [place], [place] [address]Dr. Jaz Barajas Creatinine [Mass/Vol] 0.74 mg/dL Normal 0.55-1.02 [facility] Comment on above: Performed By: #### B MP ####[facility] [address] [address]Dr. Jaz Barajas EGFR-AF MAURITIAN >60 Normal >=60 [facility] Comment on above: Performed By: #### B MP ####[facility] [address] [place], [place] [address]Dr. Jaz Barajas EGFR-NON AF MAURITIAN >60 Normal >=60 [facility] Comment on above: Performed By: #### B MP ####[facility] [address] [place], [place] [address]Dr. Jaz Barajas Glucose [Mass/Vol] 197 mg/dL Critically high 74-106 T [facility] Comment on above: Performed By: #### B MP ####[facility] [address] [place], [place] [address]Dr. Jaz Barajas Potassium [Moles/Vol] 4.5 mmol/L Normal 3.5-5.1 [facility] Comment on above: Performed By: #### B MP ####[facility] [address] [place], [place] [address]Dr. Jaz Barajas Sodium [Moles/Vol] 138 mmol/L Normal 136-145 [facility] Comment on above: Performed By: #### B MP ####[facility] [address] [place], [place] [address]Dr. Jaz Barajas Urea nitrogen [Mass/Vol] 11.0 mg/dL Normal 7.0-18.0 [facility] Comment on above: Performed By: #### B MP ####[facility] [address] [place], [place] [address]Dr. Jaz Barajas Urea nitrogen/Creatinin e [Mass ratio] 14.9 mg/mg Normal [facility] Comment on above: Performed By: #### B MP ####[facility] [address] [place], [place] [address]Dr. Jaz Barajas Ambulatory Visit Summaryon 0 6-22-2022 [...] apnea Umbilical hernia Vitamin D deficiency Normal [facility] Ambulatory Visit Summary MARILIA OSBORNE :1990 Visit [...] Sleep apnea Umbilical hernia Vitamin D deficiency [facility] Provider Letter FTon 02-20 Provider Letter [facility] [place] February 20, 2022 MARILIA OSBORNE [address] [place] [id number] MARILIA OSBORNE 1990 To Whom It May Concern, Please excuse above person from school 02/20/22 due to doctor office appointment. Sincerely, Dr. Erik Anderson MD General Surgery [facility] XR ABD FLAT_UPon 02-06-2022 XR ABD [...] JOSE EDUARDO RIVERS Date: 2022-02-06 17:25 Normal [facility] Physician Referralon 022 Physician Referral [id number]:127 Normal [facility] Physician Referral [id number]:127 Normal [facility] CREATININEon 01-31-2022 Creatinine [Mass/Vol] 0.74 mg/dL Normal 0.55-1.02 [facility] Comment on above: Performed By: #### P ROGLCM #### [facility] [address] [place] [address] Dr. Jaz Barajas EGFR-AF MAURITIAN >60 Normal >=60 [facility] Comment on above: Performed By: #### P ROGLCM #### [facility] [address] [address] [address] Jaz Barajas EGFR-NON AF MAURITIAN >60 Normal >=60 [facility] Comment on above: Performed By: #### P ROGLCM #### [facility] [address] [place] [address] ABDOMEN W CONon [...] strangulation or bowel involvement. Electronically authenticated by: JEYSON BLANTON Date: 2022-01-31 18:16 Normal [facility] ACETONE SERUMon 01-09-2022 ACETONE Negative Normal NEGATIVE [facility] Comment on above: Performed By: #### A CETON ####[facility] [address] [address]Dr. Jaz Barajas CARDIAC BISI ADMITon 022 CK [Catalytic activity/Vol] 58 U/L Normal 26-192 [facility] Comment on above: Performed By: #### P REGU #### [facility] [address] [address] [address] Jaz Barajas CK.MB [Mass/Vol] 0.64 ng/mL Normal <=3.60 [facility] Comment on above: Performed By: #### P REGU #### [facility] [address] [address] [address] Jaz Barajas HSTROP 5.3 pg/mL Normal 4.0-51.3 [facility] Comment on above: Result Comment: CUT- OFF POINTS HAVE BEEN ESTABLISHED BASED ON THE FOURTH UNIVERSAL DEFINITIONS OF MYOCARDIAL INFARCTION. THE UPPER REFERENCE LIMIT (URL) OF TROPONIN, DEFINED THE 99TH PERCENTILE OF cTnI DISTRIBUTION IN A REFERENCE POPULATION, HAS BEEN CONFIRMED THE DECISION THRESHOLD FOR NM DIAGNOSIS. Performed By: #### P REGU #### [facility] [address] [address] [address] Jaz Barajas WAI 30 ng/mL Normal 9-82 [facility] Comment on above: Performed By: #### P REGU #### [facility] [address] [place] [address] Dr. Jaz Barajas CBC AUTO DIFFon 01-09-2022 BASO # 0.1 103/ul Normal 0.0-0.1 [facility] Comment on above: Performed By: #### P REGU #### [facility] [address] [place] [address] Dr. Jaz Barajas Basophils/100 WBC (Bld) 0.5 % Normal 0.2-2.0 [facility] Comment on above: Performed By: #### P REGU #### [facility] [address] [place] [address] Dr. Jaz Barajas EO # 0.3 103/ul Normal 0.0-0.7 [facility] Comment on above: Performed By: #### P REGU #### [facility] [address] [place] [address] Dr. Jaz Barajas Eosinophils/100 WBC (Bld) 2.5 % Normal 0.9-7.0 [facility] Comment on above: Performed By: #### P REGU #### [facility] [address] [place] [address] Dr. Jaz Barajas Erythrocyte distribution width (RBC) [Ratio] 12.8 % Normal 11.0-15.0 [facility] Comment on above: Performed By: #### P REGU #### [facility] [address] [place] [address] Dr. Jaz Barajas Hematocrit (Bld) [Volume fraction] 41.0 % Normal 36.0-48.0 [facility] Comment on above: Performed By: #### P REGU #### [facility] [address] [place] [address] Dr. Jaz Barajas Hemoglobin (Bld) [Mass/Vol] 13.6 g/dL Normal 12.0-16.0 [facility] Comment on above: Performed By: #### P REGU #### [facility] [address] [place] [address] Dr. Jaz Barajas IG # 0.03 10e3/ul Normal 0.00-0.03 [facility] Comment on above: Performed By: #### P REGU #### [facility] [address] [place] [address] Dr. Jaz Barajas IG % 0.3 % Normal 0.0-0.5 [facility] Comment on above: Performed By: #### P REGU #### [facility] [address] [place] [address] Dr. Jaz Barajas LYMPH # 2.7 103/ul Normal 1.2-3.8 [facility] Comment on above: Performed By: #### P REGU #### [facility] [address] [place] [address] Dr. Jaz Barajas Lymphocytes/100 WBC (Bld) 25.7 % Normal 20.5-60.0 [facility] Comment on above: Performed By: #### P REGU #### [facility] [address] [place] [address] Dr. Jaz Barajas MANUAL DIFF REQ NO Normal [facility] Comment on above: Performed By: #### P REGU #### [facility] [address] [place] [address] Dr. Jaz Barajas MCH (RBC) [Entitic mass] 27.7 pg Normal 26.7-34.0 [facility] Comment on above: Performed By: #### P REGU #### [facility] [address] [place] [address] Dr. Jaz Barajas MCHC (RBC) [Mass/Vol] 33.2 g/dL Normal 29.9-35.2 [facility] Comment on above: Performed By: #### P REGU #### [facility] [address] [place] [address] Dr. Jaz Barajas MCV (RBC) [Entitic vol] 83.5 fL Normal 81.0-99.0 [facility] Comment on above: Performed By: #### P REGU #### [facility] [address] [place] [address] Dr. Jaz Barajas MONO # 0.8 103/ul Normal 0.3-0.8 [facility] Comment on above: Performed By: #### P REGU #### [facility] [address] [address] [address] Jaz Barajas Monocytes/100 WBC (Bld) 7.4 % Normal 1.7-12.0 [facility] Comment on above: Performed By: #### P REGU #### [facility] [address] [place] [address] Dr. Jaz Barajas NEUT # 6.6 103/ul Critically high 1.4-6.5 [facility] Comment on above: Performed By: #### P REGU #### [facility] [address] [place] [address] Dr. Jaz Barajas Neutrophils/100 WBC (Bld) 63.6 % Normal 43.0-75.0 [facility] Comment on above: Performed By: #### P REGU #### [facility] [address] [place] [address] Dr. Jaz Barajas Platelet mean volume (Bld) [Entitic vol] 11.5 fL Normal 9.5-13.5 [facility] Comment on above: Performed By: #### P REGU #### [facility] [address] [place] [address] Dr. Jaz Barajas PLT 227 103/ul Normal 150-450 [facility] Comment on above: Performed By: #### P REGU #### [facility] [address] [place] [address] Dr. Jaz Barajas RBC 4.91 106/ul Normal 4.20-5.40 [facility] Comment on above: Performed By: #### P REGU #### [facility] [address] [place] [address] Dr. Jaz Barajas WBC 10.4 103/ul Normal 4.0-11.0 [facility] Comment on above: Performed By: #### P REGU #### [facility] [address] [place] [address] Dr. Jaz Barajas CTA CHEST WO W [...] JEYSON BLANTON Date: 2022-01-09 09:47 Normal [facility] D-DIMERon 01-09-2022 D-DIMER 0.56 mg/L FEU Critically high 0.19-0.50 [facility] Comment on above: Result Comment: test repeated critical value verified Performed By: #### D DIM, PT, PTT #### [facility] [address] [address] [address] Jaz Barajas D-DIMER COMMENTS SEE BELOW Normal [facility] Comment on above: Result Comment: Incr [...] By: #### D DIM, PT, PTT #### [facility] [address] [place], [place] [address] Dr. Jaz Barajas ER URINE PROFILEon 2 Bilirubin Ql (U) Negative Normal NEGATIVE [facility] Comment on above: Performed By: #### P ROGLCM #### [facility] [address] [address] [address] Jaz Barajas Clarity (U) CLEAR Normal CLEAR [facility] Comment on above: Performed By: #### P ROGLCM #### [facility] [address] [place] [address] Dr. Jaz Barajas Color (U) YELLOW Normal YELLOW [facility] Comment on above: Performed By: #### P ROGLCM #### [facility] [address] [address] [address] Jaz Barajas ERUAHSahil A micrscopic examina tion will be performed if indicated. Normal [facility] Comment on above: Performed By: #### P ROGLCM #### [facility] [address] [place] [address] Dr. Jaz Barajas Glucose Ql (U) 500 mg/dl Abnormal NEGATIVE [facility] Comment on above: Performed By: #### P ROGLCM #### [facility] [address] [place] [address] Dr. Jaz Barajas Hemoglobin Ql (U) Negative Normal NEGATIVE [facility] Comment on above: Performed By: #### P ROGLCM #### [facility] [address] [place] [address] Dr. Jaz Barajas Ketones Ql (U) Negative Normal NEGATIVE [facility] Comment on above: Performed By: #### P ROGLCM #### [facility] [address] [address] [address] Jaz Barajas LEUKOCYTES Negative Normal NEGATIVE [facility] Comment on above: Performed By: #### P ROGLCM #### [facility] [address] [address] [address] Jaz Barajas Nitrite Ql (U) Negative Normal NEGATIVE [facility] Comment on above: Performed By: #### P ROGLCM #### [facility] [address] [place] [address] Dr. Jaz Barajas pH (U) 6.0 [pH] Normal 5-9 [facility] Comment on above: Performed By: #### P ROGLCM #### [facility] [address] [address] [address] Jaz Barajas SPEC GRAVITY >=1.030 Abnormal 1.005-<=1.02 5 [facility] Comment on above: Performed By: #### P ROGLCM #### [facility] [address] [address] [address] Jaz Barajas UA PROTEIN Negative Normal NEGATIVE/ TRACE [facility] Comment on above: Performed By: #### P ROGLCM #### [facility] [address] [address] [address] Jaz Barajas UR MICRO IND NOT INDICATED Normal [facility] Comment on above: Performed By: #### P ROGLCM #### [facility] [address] [address] [address] Jaz Barajas Urobilinogen Qn (U) 0.2 {Oxana'U}/dL Normal 0.2 - 1.0 [facility] Comment on above: Performed By: #### P ROGLCM #### [facility] [address] [address] [address] Jaz Barajas PH VENOUS BLOODon 01-09-2022 PCO2 VENOUS 39.2 mmHg Critically low 40.0-52.0 [facility] Comment on above: Performed By: #### P HVEN #### [facility] [address] [address] [address] Jaz Barajas pH VENOUS 7.409 Normal 7.330-7.430 [facility] Comment on above: Performed By: #### P HVEN #### [facility] [address] [address] [address] Jaz Barajas URon 01-09-2022 , QUAL Negative Normal NEGATIVE [facility] Comment on above: Performed By: #### P REGU #### [facility] [address] [address] [address] Jaz Barajas PROF 14(COMP METB)on 022 Albumin [Mass/Vol] 3.2 g/dL Critically low 3.4-5.0 Th [facility] Comment on above: Performed By: #### P REGU #### [facility] [address] [address] [address] Jaz Barajas Albumin/Globulin [Mass ratio] 0.8 {ratio} Normal [facility] Comment on above: Performed By: #### P REGU #### [facility] [address] [address] [address] Jaz Barajas ALP [Catalytic activity/Vol] 109 U/L Normal 46-116 [facility] Comment on above: Performed By: #### P REGU #### [facility] [address] [address] [address] Jaz Barajas ALT [Catalytic activity/Vol] 95 U/L Critically high 14-59 [facility] Comment on above: Performed By: #### P REGU #### [facility] [address] [place] [address] Dr. Jaz Barajas Anion gap [Moles/Vol] 11.7 mmol/L Normal [facility] Comment on above: Performed By: #### P REGU #### [facility] [address] [address] [address] Jaz Barajas AST [Catalytic activity/Vol] 44 U/L Critically high 15-37 [facility] Comment on above: Performed By: #### P REGU #### [facility] [address] [place] [address] Dr. Jaz Barajas Bilirubin [Mass/Vol] 0.3 mg/dL Normal 0.2-1.0 [facility] Comment on above: Performed By: #### P REGU #### [facility] [address] [address] [address] Jaz Barajas Calcium [Mass/Vol] 8.8 mg/dL Normal 8.5-10.1 [facility] Comment on above: Performed By: #### P REGU #### [facility] [address] [address] [address] Jaz Barajas Chloride [Moles/Vol] 102 mmol/L Normal 98-107 [facility] Comment on above: Performed By: #### P REGU #### [facility] [address] [place] [address] Dr. Jaz Barajas CO2 [Moles/Vol] 25.3 mmol/L Normal 21.0-32.0 [facility] Comment on above: Performed By: #### P REGU #### [facility] [address] [place] [address] Dr. Jaz Barajas Creatinine [Mass/Vol] 0.86 mg/dL Normal 0.55-1.02 [facility] Comment on above: Performed By: #### P REGU #### [facility] [address] [place] [address] Dr. Jaz Barajas EGFR-AF MAURITIAN >60 Normal >=60 [facility] Comment on above: Performed By: #### P REGU #### [facility] [address] [place] [address] Dr. Jaz Barajas EGFR-NON AF MAURITIAN >60 Normal >=60 [facility] Comment on above: Performed By: #### P REGU #### [facility] [address] [place] [address] Dr. Jaz Barajas Globulin (S) [Mass/Vol] 3.9 g/dL Normal [facility] Comment on above: Performed By: #### P REGU #### [facility] [address] [place] [address] Dr. Jaz Barajas Glucose [Mass/Vol] 230 mg/dL Critically high 74-106 T [facility] Comment on above: Performed By: #### P REGU #### [facility] [address] [place] [address] Dr. Jaz Barajas Potassium [Moles/Vol] 4.0 mmol/L Normal 3.5-5.1 [facility] Comment on above: Performed By: #### P REGU #### [facility] [address] [place] [address] Dr. Jaz Barajas Protein [Mass/Vol] 7.1 g/dL Normal 6.4-8.2 [facility] Comment on above: Performed By: #### P REGU #### [facility] [address] [place] [address] Dr. Jaz Barajas Sodium [Moles/Vol] 135 mmol/L Critically low 136-145 Th e [facility] Comment on above: Performed By: #### P REGU #### [facility] [address] [place] [address] Dr. Jaz Barajas Urea nitrogen [Mass/Vol] 15.0 mg/dL Normal 7.0-18.0 [facility] Comment on above: Performed By: #### P REGU #### [facility] [address] [place] [address] Dr. Jaz Barajas Urea nitrogen/Creatinin e [Mass ratio] 17.4 mg/mg Normal [facility] Comment on above: Performed By: #### P REGU #### [facility] [address] [place] [address] Dr. Jaz Barajas PROTIMEon 01-09-2022 INR Coag (PPP) [Relative time] 0.96 {INR} Normal [facility] Comment on above: Performed By: #### D DIM, PT, PTT #### [facility] [address] [place] [address] Dr. Jaz Barajas INR GUIDELINES SEE BELOW Normal [facility] Comment on above: Result Comment: UMU RED INR: 2.0 - 3.0 CONDITIONS NOT LISTED BELOW 2.5 - 3.5 FOR PROSTHETIC HEART VALVE REPLACEMENT 2.5 - 3.5 RECURRENT THROMBOSIS Performed By: #### D DIM, PT, PTT #### [facility] [address] [place] [address] Dr. Jaz Barajas PT Coag (PPP) [Time] 10.4 s Normal 9.0-11.6 [facility] Comment on above: Performed By: #### D DIM, PT, PTT #### [facility] [address] [place] [address] Dr. Jaz Barajas PTTon 01-09-2022 aPTT Coag (Bld) [Time] 28.8 s Normal 22.3-36.2 [facility] Comment on above: Performed By: #### D DIM, PT, PTT #### [facility] [address] [place] [address] Dr. Jaz Barajas TROPONIN, HIGH SENSITIVITYon 01-09-2022 HSTROP 4.5 pg/mL Normal 4.0-51.3 [facility] Comment on above: Result Comment: CUT- OFF POINTS HAVE BEEN ESTABLISHED BASED ON THE FOURTH UNIVERSAL DEFINITIONS OF MYOCARDIAL INFARCTION. THE UPPER REFERENCE LIMIT (URL) OF TROPONIN, DEFINED THE 99TH PERCENTILE OF cTnI DISTRIBUTION IN A REFERENCE POPULATION, HAS BEEN CONFIRMED THE DECISION THRESHOLD FOR NM DIAGNOSIS. Performed By: #### P ROGLCM #### [facility] [address] [place] [address] Dr. Jaz Barajas TSHon 01-09-2022 TSH 2.769 uIU/mL Normal 0.358-3.740 [facility] Comment on above: Performed By: #### P REGU #### [facility] [address] [place] [address] Dr. Jaz Barajas TSH RANGE SEE BELOW Normal [facility] Comment on above: Result Comment: <0.3 4 UIU/ml HYPERTHYROID 0.34-5.60 UIU/ml EUTHYROID >5.60 UIU/ml HYPOTHYROID Performed By: #### P REGU #### [facility] [address] [place] [address] Dr. Jaz Barajas XR CHEST 1 Von [...] JOSE EDUARDO RIVERS Date: 2022-01-09 08:29 Normal [facility] Encounters Encounter Date Encounter Type Care Provider Facility Start: 12-14-2022 End: 12-15-2022 ambulatory [facility] ARIANE HITCHCOCKISABELLA Facility: Start: 12-11-2022 End: 12-12-2022 [facility] Start: 11-15-2022 End: 11-15-[address] SKY DAVIS . Facility:[facility] Start: 11-10-2022 End: 11-10-[address] QUANG LANDA . Facility:[facility] Start: 08-18-2022 End: 08-18-2022 ambulatory GABINO CARROLL . Facility:[facility] Start: 07-09-2022 End: 07-09-[address] SKY DAVIS . Facility:[facility] Start: 05-14-2022 End: 05-14-2022 ambulatory [facility] ARIANE AICBrendaMJZ Facility:[facility] Start: 05-13-2022 Encounter for prepro cedural laboratory examination DR ROSA APONTE [facility] Start: 05-08-2022 End: 05-09-[address] ROSA APONTE Facility:[facility] Start: 05-08-2022 End: 05-09-2022 Encounter for preprocedural laboratory examination DR ROSA APONTE Facility:[facility] Start: 04-18-2022 End: 04-18-2022 ambulatory GRINDER BRAKE LINING ARIANE AICBrendaMJZ Facility:[facility] Start: 04-01-2022 End: 04-02-2022 ambulatory GRINDER BRAKE [employer]ING ARIANE AICBrendaMJZ Facility:[facility] Start: 02-06-2022 End: 02-07-2022 ambulatory GRINDER BRAKE LINING ARIANE AICBrendaMJZ Facility:[facility] Start: 01-31-2022 End: 02-01-2022 ambulatory AMINATA BOURGEOIS Facility:[facility] Start: 01-24-2022 ambulatory GRINDER BRAKE LINING ARIANE CEDRICISABELLA Facil ity:[facility] Start: 01-09-2022 End: 01-09-2022 ambulatory GABINO CARROLL . Facility:[facility] Payers Date Payer Category Payer Medicaid [id number] 1990 Unknown [id number] 2.16.84 [id number] 1990 Unknown [id number] 2.16.84 [id number] 1988 Unknown [id number] 2.16.84 0.1.875084.3.579.2.593 1988 Unknown [id number] 2.16.84 0.1.626858.3.579.2.593 1988 Unknown [id number] 2.16.84 0.1.545009.3.579.2.593 1988 Unknown [id number] 2.16.84 0.1.576767.3.579.2.593 1988 Unknown [id number] 2.16.84 0.1.937586.3.579.2.593 1988 Unknown [id number] 2.16.84 0.1.995668.3.579.2.593 1988 Unknown [id number] 2.16.84 0.1.788640.3.579.2.593 1988 Unknown [id number] 2.16.84 0.1.546614.3.579.2.593 1988 Unknown [id number] 2.16.84 0.1.632257.3.579.2.593 1988 Unknown [id number] 2.16.84 0.1.099223.3.579.2.593 1988 Unknown [id number] 2.16.84 0.1.554857.3.579.2.593 1959 Unknown [id number] 1959 Unknown [id number] Clinical Note 12-16-2022 Note Date & Type [...] by: HAYDE VAN Date: 2022-12-16 07:21 [facility] Clinical Note 12-16-2022 Note Date & [...] by: HAYDE VAN Date: 2022-12-16 07:17 [facility] Clinical Note 05-14-2022 Note Date & [...] the recovery room in good condition. [facility] Clinical Note 02-22-2022 Note Date & [...] tab, Oral, Da (more content not included)... [facility] Comment on above: Result Comment: Elec tronically Signed By: YUDELKA LEUNG, Erik Escobedo\Date and Time Signed: 02/22/22 08:55 EDT Summary Purpose Family History No Family History Records FoundNo Family History Records Found Advance Directives No Advanced Directives Records FoundNo Advanced Directives Records Found Additional Source Comments INFORMATION SOURCE (unrecogn ized section and content) DATE CREATED AUTHOR 02/23/2022 [facility] DATE CREATED AUTHOR [facility]/19/2022 [facility] FOR RECORDS PERTAINING TO PATIENTS WHO ARE [...] BE BASED ON THE PRIMARY CLINICAL RECORDS. [facility]. provides no warranty or guarantee of the accuracy or completeness of information in this document.
--- NOTE | 2023-09-05 12:08 | XR_ITS ---
The [address] [address] Patient Name: MARILIA OSBORNE MRN: [id number] date: 1990 Sex: F Assigned Patient Location: ER Current Patient Location: ER Accession/Order Number: [id number] Exam Date: 09/05/2023 12:23 Report Date: 09/05/2023 12:54 At the request of: SKY DAVIS Procedure: XR chest 2V EXAMINATION: XR chest 2V HISTORY: cough COMPARISON: 09/01/2023 TECHNIQUE: PA and lateral FINDINGS: LUNGS: No significant pulmonary parenchymal abnormalities. VASCULATURE: No increased pulmonary vasculature. PLEURA: No pneumothorax, effusion, or pleural thickening. CARDIAC: No cardiomegaly or cardiac silhouette abnormality. MEDIASTINUM: No visible mass or adenopathy. BONES: No fracture or visible bone lesion. OTHER: Negative. XR/XR chest 2V IMPRESSION: No acute cardiopulmonary process Electronically authenticated by: JOSE EDUARDO RIVERS Date: 09/05/2023 12:54
[2023-09-05 13:52] LABS: Internal Control Within Normal Limits; Strep A Antigen Screen Negative
[2023-09-05 13:58] LABS: Influenza Virus A Antigen Negative; Influenza Virus B Antigen Negative; Internal Control Within Normal Limits
[2023-09-05 13:59] LABS: SARS-CoV-2 Ag NEGATIVE (NEGATIVE)
--- NOTE | 2023-09-05 15:12 | ED_ITS ---
HPI - General Adult General Chief complaint: Upper Respiratory Infection Stated complaint: coughing up blood Time Seen by Provider: 09/05/23 14:34 Source: patient Mode of arrival: walk-in Limitations: no limitations History of Present Illness HPI narrative: Patient is a 33-year-old female who is presenting for reevaluation. Patient was seen and evaluated here on . 2 days before patient is having some sinus symptoms, then she developed sore throat, coughing and congestion. Patient was here and had swabs of the were negative. Patient's having more sinus congestion, sore throat was getting worse, but yesterday and today it has improved. 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 Patient's boss would not let her come back and less she was not contagious patient sinus congestion and sore throat have improved. She had a small blood streak sputum this morning, no significant hemoptysis. No nausea, vomiting, diarrhea, or any other acute complaints. . All systems are negative except as noted/marked. All systems reviewed and otherwise negative. . Nurses note and vital signs reviewed and patient is not hypoxic. General: The patient appears well and in no apparent distress. Patient is resting comfortably on cart. Patient is not toxic, lethargic, or listless Skin: Warm, dry, no pallor noted. There is no rash noted. No petechiae, purpura. Head: Normocephalic, atraumatic Eye: Normal conjunctiva, no drainage, EOMI. PERRL Ears, Nose, Mouth, and Throat: oral mucosa is moist. Nares patent. Mouth without vesicles. Clear sinus drainage to the posterior pharynx, minimal cobblestoning. Cardiovascular: Regular Rate and Rhythm, no murmur, gallop, rub Respiratory: Patient is in no distress, no accessory muscle use, lungs are clear to auscultation, no wheezing, rales or rhonchi Back: non-tender, no CVA tenderness bilaterally to percussion. No CT LS midline pain GI: soft, obese, no tenderness to palpation, no masses appreciated. No rebound, guarding, or rigidity noted. No flank pain bilateral, No distention Musculoskeletal: Patient has full range of motion of all of the extremities, no motor, sensory, or focal neurological deficits Neurological: A&O x3, normal speech Psychiatric: Cooperative Related Data Home Medications Medication Instructions Recorded Confirmed aripiprazole 10 mg tablet 10 mg PO QDAY 02/04/23 02/04/23 buspirone 10 mg tablet 10 mg PO BID 02/04/23 02/04/23 calcium carbonate 600 mg calcium 600 mg PO DAILY 02/04/23 02/04/23 (1,500 mg) tablet (Calcium) calcium phosphate,dibasic 77 1 tab PO QDAY 02/04/23 02/04/23 mg-vitamin D3 400 unit tablet empagliflozin 10 mg tablet 10 mg PO DAILY 02/04/23 02/04/23 (Jardiance) fluoxetine 40 mg capsule 40 mg PO QDAY 02/04/23 02/04/23 insulin regular hum U-500 conc 500 60 unit subcut TID 02/04/23 02/04/23 unit/mL(3 mL) subcut pen (Humulin R U-500 (Conc) Insulin Kwikpen) magnesium 250 mg tablet 250 mg PO DAILY 02/04/23 02/04/23 metformin 1,000 mg tablet 1,000 mg PO BID 02/04/23 02/04/23 pantoprazole 40 mg tablet,delayed 40 mg PO Q12H PRN indigestion 02/04/23 02/04/23 release spironolactone 50 mg tablet 50 mg PO QDAY 02/04/23 02/04/23 trazodone 50 mg tablet 50 mg PO DAILY 02/04/23 02/04/23 amoxicillin 875 mg-potassium 1 tab PO BID 04/22/23 04/22/23 clavulanate 125 mg tablet Allergies Allergy/AdvReac Type Severity Reaction Status Date / Time prednisone AdvReac Severe hyperglycem Verified 04/22/23 19:08 [facility] Social History Smoking status: Current every day smoker Exam Constitutional Vital Signs, click to edit/add: Last Vital Signs Temp 98.4 F 09/05/23 11:44 Pulse 74 09/05/23 11:44 Resp 18 09/05/23 11:44 BP 113/61 09/05/23 11:44 Pulse Ox 98 09/05/23 11:44 Course Vital Signs Vital signs: Vital Signs Temperature 98.4 F 09/05/23 11:44 Pulse Rate 74 09/05/23 11:44 Respiratory Rate 18 09/05/23 11:44 Blood Pressure 113/61 09/05/23 11:44 Pulse Oximetry 98 09/05/23 11:44 Temperature 98.4 F 09/05/23 11:44 Pulse Rate 74 09/05/23 11:44 Respiratory Rate 18 09/05/23 11:44 Blood Pressure 113/61 09/05/23 11:44 Pulse Oximetry 98 09/05/23 11:44 Medical Decision Making MDM Narrative Medical decision making narrative: Patient's multiple swabs were negative. Chest x-ray shows no acute findings. Work note was given. Patient is doing no [id number] to help with her symptoms. Education was done at bedside and on discharge paperwork. Lab Data Labs: Lab Results 09/05/23 09/05/23 Range/Units 13:29 13:35 SARS-CoV-2 (PCR) Negative (NEGATIVE) Influenza Type A Ag Negative Influenza Type B Ag Negative Streptococcus Screen Negative Discharge Plan Discharge Chief Complaint: Upper Respiratory Infection Clinical Impression: Sinus congestion, Cough Patient Disposition: Home, Self-Care Condition: Fair Prescriptions / Home Meds: No Action metformin 1,000 mg tablet 1,000 mg PO BID Jardiance 10 mg tablet 10 mg PO DAILY aripiprazole 10 mg tablet 10 mg PO QDAY buspirone 10 mg tablet 10 mg PO BID trazodone 50 mg tablet 50 mg PO DAILY fluoxetine 40 mg capsule 40 mg PO QDAY spironolactone 50 mg tablet 50 mg PO QDAY calcium phos,dibas-vitamin D3 77-400 mg-unit tablet 1 tab PO QDAY pantoprazole 40 mg tablet,delayed release (DR/EC) 40 mg PO Q12H PRN (Reason: indigestion) magnesium 250 mg tablet 250 mg PO DAILY calcium carbonate [Calcium 600] 600 mg calcium (1,500 mg) tablet 600 mg PO DAILY Humulin R U-500 (Conc) Kwikpen 500 unit/mL (3 mL) insulin pen 60 unit SUBCUT TID Rx Instructions: with sliding scale amoxicillin-pot clavulanate 875-125 mg tablet 1 tab PO BID Instructions: Upper Respiratory Infection (ED), Cold Symptoms (ED), Acute Cough (ED), How to Use Nasal [place] (ED) Additional Instructions: Start using DayQuil, NyQuil, Flonase daily for next 5-7 days Add Mucinex DM if needed. Take daily vitamin C, vitamin D3, and zinc Increase fluids. Alternate Tylenol and Motrin every 4 hours as needed for body aches, muscle pain, joint pain or chest wall pain Follow-up with her PCP is no significant improvement in the next 3-4 days Stand Alone Forms: Work/School Release, Portal Instructions Referrals: Ariane Wells NP [Primary Care Provider] - 1 week Discharge Date/Time: 09/05/23 15:28
== END 2023-09-05 15:28 | disposition home or self-care (01) ==
PROVIDERS: Emergency Provider Emergency Medicine; PCP Nurse Practitioner
DX: R05.9 Cough, unspecified (principal); R09.81 Nasal congestion; Z79.899 Other long term (current) drug therapy; Z79.4 Long term (current) use of insulin; F17.210 Nicotine dependence, cigarettes, uncomplicated; Z20.822 Contact with and (suspected) exposure to COVID-19
CPT/HCPCS: 71046; 87070; 87635; 87804; 87811; 87880; 99285

== ENCOUNTER 2024-01-07 10:18 | Outpatient (OUT) | payer MEDICAID, SELFPAY ==
--- OUTSIDE RECORDS SUMMARY | 2024-01-07 10:42 | XMS_ITS | CCD ---
Author Organization [facility] Care Team Providers Care Airline Transport Pilot Name Role Phone AICHHOLZ, EMPLOYMENT MANAGER ARIANE Attending Unavailable AICHHOLZ, EMPLOYMENT MANAGER ARIANE Admitting Unavailable AICHHOLZ, EMPLOYMENT MANAGER ARIANE Primary Care Unavailable JOSE EDUARDO RIVERS V Consulting Unavailable AICHHOLZ, EMPLOYMENT MANAGER ARIANE Consulting Unavailable TIMMIS, DR MEJIA Consulting Unavailable AICHHOLZ, EMPLOYMENT MANAGER ARIANE Primary Care Unavailable TIMMIS, DR MEJIA Attending Unavailable TIMMIS, DR MEJIA Admitting Unavailable BRIGGS, MAGDI Consulting Unavailable PAY ., DR SWANSON Admitting Unavailable PAY ., DR SWANSON Consulting Unavailable AICHHOLZ, EMPLOYMENT MANAGER ARIANE Primary Care Unavailable PAY ., DR SWANSON Attending Unavailable AICHHOLZ, EMPLOYMENT MANAGER ARIANE Primary Care Unavailable REINECK, DR KLAUDIA Kay Attending Unavailabl e KAITLIN, DR KLAUDIA Kay Admitting Unavailabl e KAITLIN, DR KLAUDIA Kay Consulting Unavailabl e JEYSON BLANTON Consulting Unavailable AICHHOLZ, EMPLOYMENT MANAGER ARIANE Primary Care Unavailable GABINO MUÑOZ Attending Unavailable GLEN .GABINO Admitting Unavailable AICHHOLZ, EMPLOYMENT MANAGER ARIANE Primary Care Unavailable JOSE EDUARDO RIVERS V Consulting Unavailable JEYSON BLANTON Consulting Unavailable GABINO MUÑOZ Consulting Unavailable PAY ., DR SWANSON Admitting Unavailable PAY ., DR SWANSON Consulting Unavailable AICHHOLZ, EMPLOYMENT MANAGER ARIANE Primary Care Unavailable PAY ., DR SWANSON Attending Unavailable GERALDINE LAZAR Consulting Unavailable CORDELL ., DR DEL RIO Attending Unavailable CORDELL ., DR DEL RIO Admitting Unavailable AICHHOLZ, EMPLOYMENT MANAGER ARIANE Primary Care Unavailable HAY ., DR DEL RIO Consulting Unavailable GABINO MUÑOZ Attending Unavailable GLEN ., GABINO Admitting Unavailable AICHHOLZ, EMPLOYMENT MANAGER ARIANE Primary Care Unavailable DONTRELL DIAZ Consulting Unavailable GLEN Mckinnon, GABINO Consulting Unavailable JOSE EDUARDO RHODES Consulting Unavailable AICHHOLZ, EMPLOYMENT MANAGER ARIANE Referring Unavailable AICHHOLZ, EMPLOYMENT MANAGER ARIANE Primary Care Unavailable ROYA MIRZAD Attending Unavailable YUKI, AHMAD Admitting Unavailable YUKI, AHMAD Consulting Unavailable AICHHOLZ, EMPLOYMENT MANAGER ARIANE Consulting Unavailable AICHHOLZ, EMPLOYMENT MANAGER ARIANE Attending Unavailable AICHHOLZ, EMPLOYMENT MANAGER ARIANE Admitting Unavailable AICHHOLZ, EMPLOYMENT MANAGER ARIANE Primary Care Unavailable HAYDE VAN Consulting Unavailable AICHHOLZ, EMPLOYMENT MANAGER ARIANE Consulting Unavailable AICHHOLZ, EMPLOYMENT MANAGER ARIANE Attending Unavailable AICHHOLZ, EMPLOYMENT MANAGER ARIANE Admitting Unavailable AICHHOLZ, EMPLOYMENT MANAGER ARIANE Primary Care Unavailable AMINATA BOURGEOIS Attending Unavailable AMINATA BOURGEOIS Admitting Unavailable JEYSON BLANTON Consulting Unavailable AICHHOLZ, EMPLOYMENT MANAGER ARIANE Primary Care Unavailable AMINATA BOURGEOIS Consulting Unavailable AICHHOLZ, EMPLOYMENT MANAGER ARIANE Primary Care Unavailable FADI, DR MEJIA Consulting Unavailable FADI, DR MEJIA Attending Unavailable DR ROSA APONTE Admitting Unavailable ELIDA COWAN Consulting Unava ilable BLAS, ARIANE J Primary Care Physician [phone] Riky Le Attending Unavailable AICHHOLZ, ARIANE Attending Unavailable Allergies Allergy Classification Reported Allergen(s) Allergy Type Date of Onset Reaction(s) Facility (2 sources) predniSONE; Translations: [predniSONE] Drug Allergy 0 [facility] Repository (1 source) predniSONE; Translations: [prednisone] Drug Allergy 0 Slurred speech (finding), Tremor (finding) [facility] [place] Medications Current Medications Medication Drug Class(es) Dates Sig (Normalized) Sig (Original) ARIPiprazole 5 mg oral tablet (1 source) Atypical Antipsychotic Start: 01-25-2020 take 1 tablet by mouth once daily aripiprazole 5 mg Tab 5 mg = 1 tab(s), Oral, Daily, Refills(s) 0 Start Date: 01/25/20 Status: Ordered busPIRone (1 source) Start: 02-06-2022 busPIRone Refills(s) 0 Start Date: 02/06/22 Status: Ordered Calcium (1 source) Phosphate Binder, Calcium Start: 11-30-2019 take 1 tablet by mouth once daily Calcium 600+D 1 tab, Oral, Daily, Refill(s) 0 Start Date: 11/30/19 Status: Ordered Jardiance (1 source) Sodium-Glucose Cotransporter 2 Inhibitor Start: 02-06-2022 Jardiance Refills(s) 0 Start Date: 02/06/22 Status: Ordered FLUoxetine 40 mg oral capsule (1 source) Serotonin Reuptake Inhibitor Start: 02-20-2022 take 1 capsule by mouth once daily FLUoxetine 40 mg Cap 40 mg = 1 cap(s), Oral, Daily, Refills(s) 0 Start Date: 02/20/22 Status: Ordered HumuLIN R KwikPen (Concentrated) (1 source) Start: 02-06-2022 HumuLIN R KwikPen (Concentrated) Refills(s) 0 Start Date: 02/06/22 Status: Ordered magnesium oxide 250 mg oral tablet (1 source) Start: 11-30-2019 take 1 tablet by mouth once daily magnesium oxide 250 mg oral tablet 250 mg = 1 tab(s), Oral, Daily, Refills(s) 0 Start Date: 11/30/19 Status: Ordered 24 hr metFORMIN hydrochloride 500 mg extended release oral tablet (1 source) Biguanide Start: 11-30-2019 take 2 tablets by mouth twice daily Glucophage XR 500 mg Tab-ER 1,000 mg = 2 tab(s), Oral, BID, Refills(s) 0 Start Date: 11/30/19 Status: Ordered methocarbamol 750 mg oral tablet (1 source) Muscle Relaxant Start: 11-27-2023 End: 11-30-2023 take 1 tablet by mouth three times daily Robaxin-750 oral tablet 1,500 mg = 2 tab(s), Oral, TID, X 3 day(s), # 18 tab(s), Refills(s) 0, Pharmacy: [facility], 160, cm, 11/27/23 12:59:00 EDT, Height/Length Dosing, 114.1, kg, 11/27/23 12:59:00 EDT, Weight Dosing Start Date: 11/27/23 Stop Date: 11/30/23 Status: Ordered naproxen 500 mg oral tablet (1 source) Nonsteroidal Anti-inflammatory Drug Start: 11-27-2023 take 1 tablet by mouth twice daily as needed for pain Naprosyn 500 mg Tab 500 mg = 1 tab(s), Oral, BID, PRN for pain, # 20 tab(s), Refills(s) 0, Pharmacy: [facility], 160, cm, 11/27/23 12:59:00 EDT, Height/Length Dosing, 114.1, kg, 11/27/23 12:59:00 EDT, Weight Dosing Start Date: 11/27/23 Status: Ordered pantoprazole 40 mg delayed release oral tablet (1 source) Proton Pump Inhibitor Start: 11-30-2019 take 1 tablet by mouth once daily Pantoprazole [address] Tab 40 mg = 1 tab(s), Oral, Daily, Refills(s) 0 Start Date: 11/30/19 Status: Ordered traZODone hydrochloride 50 mg oral tablet (1 source) Serotonin Reuptake Inhibitor Start: 11-30-2019 take 2 tablets by mouth once daily at bedtime traZODONE 50 mg Tab 100 mg = 2 tab(s), Oral, Once a day (at bedtime), Refills(s) 0 Start Date: 11/30/19 Status: Ordered Completed/Discontinued Medications Medication Drug Class(es) Dates Sig (Normalized) Sig (Original) Vitamin D3 2000 intl units oral tablet (1 source) Start: 11-30-2019 take 1 tablet by mouth once daily Vitamin D3 2000 intl units oral tablet 2,000 International_Unit = 1 tab(s), Oral, Daily, Refills(s) 0 Start Date: 11/30/19 Status: Ordered Problems Active Problems Problem Classification Problem Date Documented Date Episodic/Chronic Abdominal hernia (5 sources) Umbilical hernia without obstruction or gangrene; Translations: [Umbilical hernia] Onset: 01-31-2022 Episodic Acquired foot deformities (1 source) Osteochondral defect of talus 11-30-2019 Episodic Anxiety disorders (3 sources) Anxiety disorder, unspecified; Translations: [ANXIETY DISORDER UNSPECIFIED] Onset: 01-09-2022 Chronic Attention-deficit, conduct, and disruptive behavior disorders (1 source) Attention deficit hyperactivity disorder 11-30-2019 Chronic Diabetes mellitus with complications (4 sources) Type 2 diabetes mellitus with hyperglycemia; Translations: [TYPE 2 DM W/HYPERGLYCEMIA] Onset: 04-01-2022 Chronic Diabetes mellitus without complication (2 sources) Type 2 diabetes mellitus without complications; Translations: [Diabetes mellitus] Onset: 12-16-2022 02-06-2022 Chronic Female infertility (1 source) Female infertility 11-30-2019 Chronic Inflammatory diseases of female pelvic organs (4 sources) Abscess of vulva; Translations: [ABSCESS OF VULVA] Onset: 11-10-2022 Episodic Joint disorders and dislocations; trauma-related (1 source) Unspecified internal derangement of right knee; Translations: [UNS INTERNAL DERANGEMENT RIGHT KNEE] Onset: 07-10-2022 Chronic Mood disorders (2 sources) Bipolar disorder; Translations: [Depressive disorder] 11-30-2019 Chronic Nutritional deficiencies (6 sources) Vitamin D deficiency, unspecified; Translations: [Vitamin D deficiency] Onset: 04-04-2022 Chronic Other acquired deformities (1 source) Acquired deformity of ankle AND/OR foot 11-30-2019 Episodic Other aftercare (1 source) Other jail (current) drug therapy; Translations: [OTH PRISON 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 THERAPY] Onset: 11-19-2022 Episodic Other aftercare (1 source) terminal carman (current) use of oral hypoglycemic drugs; Translations: [[employer]IST USE ORAL 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 DX] Onset: 11-19-2022 Episodic Other aftercare (1 source) [facility] (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; Translations: [PRISON CURRENT USE OF INSULIN] Onset: 11-11-2022 Episodic Other endocrine disorders (1 source) Polycystic ovarian syndrome; Translations: [POLYCYSTIC OVARIAN SYNDROME] Onset: 11-19-2022 Chronic Other endocrine disorders (1 source) Polycystic ovary syndrome 11-30-2019 Chronic Other non-traumatic joint disorders (4 sources) Pain in right knee; Translations: [PAIN IN RIGHT KNEE] Onset: 12-14-2022 Episodic Other non-traumatic joint disorders (1 source) Shoulder joint pain; Translations: [Pain in unspecified shoulder] Onset: 11-27-2023 Episodic Other nutritional; endocrine; and metabolic disorders [...] INDEX BMI 45.0-49.9 ADULT] Onset: 01-14-2022 Chronic Other nutritional; endocrine; and metabolic disorders (1 source) Body mass index 40+ - severely obese 02-20-2022 Chronic Other nutritional; endocrine; and metabolic disorders (1 source) Severe obesity 11-30-2019 Chronic Residual codes; unclassified (1 source) Sleep apnea 11-30-2019 Chronic Residual codes; unclassified (1 source) Insomnia 11-30-2019 Episodic Residual codes; unclassified (1 source) Tobacco user 11-30-2019 Episodic Spondylosis; intervertebral disc disorders; other back problems (1 source) Degeneration of lumbar intervertebral disc 11-30-2019 Chronic Substance-related disorders (1 source) Nicotine dependence, [...] Problem Date Documented Da te Episodic/Chronic Abdominal pain (4 sources) Unspecified abdominal pain; [...] Test Name Value Interpretation Reference Range Facility [facility] 11-28-2023 Forms [id number] Normal [facility] Consent for Treatmenton 10-31 Consent for Treatment [id number] Normal [facility] Discharge Instructionson Discharge Instructions [id number] Normal [facility] ED Clinical Summaryon 2023 ED Clinical Summary [place] [id number] ED Clinical Summary Person Information Name: MARILIA OSBORNE [facility] Age: 33 Years : 1990 Sex: Female Language: Kyrgyz PCP: ARIANE WELLS CNP Marital Status: Visit Id: Visit Reason: Shoulder pain-swelling; RIGHT SHOULDER PAIN Speciality: Acuity: 4 Enc Type: Emergency Med Service: Emergency Arrival: 11/27/2023 12:52:48 Discharge: 11/27/2023 15:37:17 LOS: 000 02:45 Checkin: 11/27/2023 12:52:48 Checkout: 11/27/2023 15:37:17 Dispo Type: Home (Routine DC) EVENTS: Event Name Event Status Request Date/Time Start Date/Time Complete Date/Time Arrive Complete 11/27/2023 12:52:48 11/27/2023 12:52:48 11/27/2023 12:52:48 Document Home Meds Request 11/27/2023 12:52:48 Triage Complete 11/27/2023 12:52:48 11/27/2023 12:59:34 11/27/2023 12:59:34 Bed Assign Complete 11/27/2023 12:54:48 11/27/2023 12:54:48 11/27/2023 12:54:48 Dr Exam Complete 11/27/2023 12:54:48 11/27/2023 13:13:53 11/27/2023 13:13:53 RN Exam Complete 11/27/2023 12:54:48 11/27/2023 13:02:05 11/27/2023 13:02:05 Registration Complete 11/27/2023 13:05:43 11/27/2023 13:05:43 11/27/2023 13:05:43 Reg Complete Request 11/27/2023 13:05:43 Reg Bed Request Complete 11/27/2023 13:05:43 11/27/2023 13:05:43 11/27/2023 13:05:43 Registration Request 11/27/2023 13:13:53 Dr Exam Complete 11/27/2023 13:15:38 11/27/2023 13:15:38 11/27/2023 13:15:38 Dr Exam Complete 11/27/2023 13:16:02 11/27/2023 13:16:02 11/27/2023 13:16:02 X-Ray Complete 11/27/2023 13:16:08 11/27/2023 13:16:28 11/27/2023 13:33:29 Wet Read Request 11/27/2023 13:33:29 Discharge Complete 11/27/2023 15:20:19 11/27/2023 15:37:23 11/27/2023 15:37:23 Transfer Complete 11/27/2023 15:37:23 11/27/2023 15:37:23 11/27/2023 15:37:23 ADDRESS: [address] [place] [id number] PHYS DOC NOTES: MEDICAL INFORMATION: Prescriptions Given: [facility], [address] [place], [place] [id number], [phone] methocarbamol (Robaxin-750 oral tablet) 2 Tablets By Mouth 3 times a day for 3 Days. Refills: 0. naproxen (Naprosyn 500 mg Tab) 1 Tablets By Mouth 2 times a day as needed for pain. Refills: 0. Medications to Continue with No Changes Other Medications aripiprazole (aripiprazole 5 mg Tab) 1 Tablets By Mouth every day. busPIRone calcium-vitamin D (Calcium 600+D) 1 tab By Mouth every day. cholecalciferol (Vitamin D3 2000 intl units oral tablet) 1 Tablets By Mouth every day. empagliflozin (Jardiance) fluoxetine (FLUoxetine 40 mg Cap) 1 Capsules By Mouth every day. insulin regular (HumuLIN R KwikPen (Concentrated)) magnesium oxide (magnesium oxide 250 mg oral tablet) 1 Tablets By Mouth every day. metformin (Glucophage XR 500 mg Tab-ER) 2 Tablets By Mouth 2 times a day. pantoprazole (Pantoprazole [address] Tab) 1 Tablets By Mouth every day. trazodone (traZODONE 50 mg Tab) 2 Tablets By Mouth once a day (at bedtime). PATIENT EDUCATION INFORMATION: Instructions: Shoulder Pain Follow up: With: Address: When: [place] [address] Business (1) In 3 days 11/30/2023 DIAGNOSIS: Pain in shoulder Normal [facility] ED Note-Physicianon 11-27-19 ED Note-Physician Basic Information Time Seen: Steven Cardenas PA-C 11/27/2023 13:15 Chief Complaint patient presents with right shoulder burning that started a few months ago. patient states that today at work she was experiencing her normal pain when she felt a sharp tear- now having more than normal History of Present Illness 33-year-old female comes to the ED for evaluation of right shoulder pain. She describes intermittent pain to the right shoulder for quite some time. She was working today, when she developed worsening pain to the right shoulder. 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 No other trauma to the area. No acute weakness. No chest pain or shortness of breath. No prior treatments. Review of Systems A 10 point review of systems is negative except as noted above. Medical and Surgical History: Reviewed and noted Social history: Lives at home Tobacco: Denies Physical Exam Vitals & Measurements T: 36.6 ?C(Oral) HR: 78(Peripheral) RR: 20 BP: 133/86 SpO2: 98% HT: 160.02 cm WT: 114.1 kg BMI: 44.56 Nurses notes and vital signs reviewed and patient is not hypoxic. General: The patient appears well, resting comfortably. Skin: Warm, dry. Head: Atraumatic. Neck: No JVD. Eye: Normal conjunctiva. Ears, Nose, Mouth, and Throat: Moist mucous membranes. Cardiovascular: Strong distal pulses. Chest wall: Respiratory: Respirations are nonlabored. Back: Normal range of motion. Musculoskeletal: Generalized tenderness of the right shoulder. Decreased range of motion. Strong distal pulses. No soft tissue swelling, ecchymosis or erythema Gastrointestinal: Urological: Neurological: Awake and alert. No focal deficits. Follows commands. Psychiatric: Cooperative. Medical Decision Making Imaging with no acute findings. Patient with essentially acute on chronic right shoulder pain. She is neurovascular intact on exam. She is treated with Naprosyn and Robaxin. Given her duration of symptoms she is given orthopedic follow-up. Patient was encouraged to return to the ED if symptoms worsen or change. Assessment/Plan Pain in shoulder (M25.519: Pain in unspecified shoulder) Orders: methocarbamol, 1,500 mg = 2 tab(s), Oral, TID, X 3 day(s), # 18 tab(s), Refills(s) 0, Pharmacy: [facility], 160, cm, 11/27/23 12:59:00 EDT, Height/Length Dosing, 114.1, kg, 11/27/23 12:59:00 EDT, Weight Dosing naproxen, 500 mg = 1 tab(s), Oral, BID, PRN for pain, # 20 tab(s), Refills(s) 0, Pharmacy: [facility], 160, cm, 11/27/23 12:59:00 EDT, Height/Length Dosing, 114.1, kg, 11/27/23 12:59:00 EDT, Weight Dosing XR Shoulder Complete Right Disposition Plan Patient Discharge Condition Disposition: Discharged home Condition: Improved and stable Counseled: Patient and/or family were counseled to workup, results, treatment plan and follow-up recommendations Discharge Prescription List Prescriptions Naprosyn 500 mg Tab, 500 mg= 1 tab(s), Oral, BID, PRN Robaxin-750 oral tablet, 1500 mg= 2 tab(s), Oral, TID Follow-up With When Contact Information Georgi Pfeiffer In 3 days 11/30/2023 EDT [address] [place], [place] [address] Business (1) Additional Instructions: Patient Education Shoulder Pain Attestation I performed a substantive part of the MDM during the patient?s E/M visit. I personally made or approved the documented management plan and acknowledge its risk of complications. (Independent Interpretation) My (EKG/X-Ray/US/CT) interpretation as above. (Discussion) Management/test interpretation discussed with APC. This report was transcribed using voice recognition software. Every effort was made to ensure accuracy, however, inadvertently computerized chip frier mistakes may be present. Appropriate healthcare PPE was used in evaluating this patient. Problem List/Past Medical History Ongoing Acquired deformity [...] ankle surgery, Tympanostomy tube, Tympanostomy tube. Medications Inpatient No active inpatient medications Home aripiprazole 5 mg Tab, 5 mg= 1 tab(s), Oral, Daily busPIRone Calcium 600+D, 1 tab, Oral, Daily FLUoxetine 40 mg Cap, 40 mg= 1 cap(s), Oral, Daily Glucophage XR 500 mg Tab-ER, 1000 mg= 2 tab(s), Oral, BID HumuLIN R Julisa (Concentrated) Roma (more content not included)... Normal [facility] Comment on above: Result Comment: Elec tronically Signed By: Steven Cardenas PA-C\.br\Date and Time Signed: 11/27/23 15:40 EDT\.br\Electronically Co-Signed By: Riky Le DO\.br\Date and Time Co-Signed: 11/27/23 17:17 EDT ED Patient Education Noteon 11-27-2023 ED Patient Education Note Orthopedics Shoulder Pain Many things can cause shoulder pain, including: ? An injury to the shoulder. ? Overuse of the shoulder. ? Arthritis. The source of the pain can be: ? Inflammation. ? An injury to the shoulder joint. ? An injury to a tendon, ligament, or bone. Follow these instructions at home: Pay attention to changes in your symptoms. Let your health care provider know about them. Follow these instructions to relieve your pain. If you have a sling: ? Wear the sling as told by your health care provider. Remove it only as told by your health care provider. ? Loosen the sling if your fingers tingle, become numb, or turn cold and blue. ? Keep the sling clean. ? If the sling is not waterproof: ? Do not let it get wet. Remove it to shower or bathe. ? Move your arm as little as possible, but keep your hand moving to prevent swelling. Managing pain, stiffness, and swelling ? If directed, put ice on the painful area: ? Put ice in a plastic bag. ? Place a towel between your skin and the bag. ? Leave the ice on for 20 minutes, 2?3 times per day. Stop applying ice if it does not help with the pain. ? Squeeze a soft ball or a foam pad as much as possible. This helps to keep the shoulder from swelling. It also helps to strengthen the arm. General instructions ? Take zmcl-lan-sruqtyy and prescription medicines only as told by your health care provider. ? Keep all follow-up visits as told by your health care provider. This is important. Contact a health care provider if: ? Your pain gets worse. ? Your pain is not relieved with medicines. ? New pain develops in your arm, hand, or fingers. Get help right away if: ? Your arm, hand, or fingers: ? Tingle. ? Become numb. ? Become swollen. ? Become painful. ? Turn white or blue. Summary ? Shoulder pain can be caused by an injury, overuse, or arthritis. ? Pay attention to changes in your symptoms. Let your health care provider know about them. ? This condition may be treated with a sling, ice, and pain medicines. ? Contact your health care provider if the pain gets worse or new pain develops. Get help right away if your arm, hand, or fingers tingle or become numb, swollen, or painful. ? Keep all follow-up visits as told by your health care provider. This is important. This information is not intended to replace advice given to you by your health care provider. Make sure you discuss any questions you have with your health care provider. Document Revised: 05/03/2022 Document Reviewed: 05/03/2022 [employer] Patient Education ? 2022 [employer] Normal [facility] ED Patient Summaryon 024 ED Patient Summary (Inserted Image. Isadora ble to display) [place] [id number] Patient Discharge Instructions Person Information Name: MARILIA OSBORNE Age: 33 Years Arrival Date: 11/27/2023 12:52:48 Discharge Diagnosis: Pain in shoulder Primary Care Physician: ARIANE WELLS CNP Provider Information Primary Provider: Riky Le DO Advanced Employment Coordinator:Steven Cardenas PA-C The exam and treatment you received in the Emergency Department were for an urgent problem and are not intended as complete care. It is important that you follow up with a doctor, nurse practitioner, or physician?s neurosurgical physician assistant for ongoing care. If your symptoms become worse or you do not improve as expected and you are unable to reach your usual health care provider, you should return to the Emergency Department. We are available 24 hours a day. OSBORNEMARILIA Danielson has been given the following list of patient education materials, prescriptions and follow-up instructions: Follow-up Instructions: With: Address: When: Georgi Pfeiffer [address] [place] [address] Business (1) In 3 days 11/30/2023 In the event that this physician does not participate in your insurance network, please consult with your insurance company to find a nearby participating provider. Patient Education Materials: Shoulder Pain A MESSAGE TO ALL PATIENTS REGARDING OPIOIDS PRESCRIPTION OPIOIDS: WHAT YOU NEED TO KNOW Prescription opioids can be used to help relieve lkqmnbmk-oj-gmgvua pain and are often prescribed following a surgery or injury, or for certain health conditions. These medications can be an important part of the treatment but also come with serious risks. It is important to work with your healthcare provider to make sure you are getting the safest, most effective care. WHAT ARE THE RISKS AND SIDE EFFECTS OF OPIOID USE? Prescription opioids carry serious risks of addiction and overdose, especially with prolonged use. An opioid overdose, often marked by slowed breathing, can cause sudden . The use of prescription opioids can have a number of side effects as well, even when taken as directed: ? Tolerance?meaning you might need to take more of the medication for the same pain relief ? Physical dependence?meaning you have symptoms of withdrawal when a medication is stopped ? Increased sensitivity to pain ? Constipation ? Nausea, vomiting, and dry mouth ? Sleepiness and dizziness ? Confusion ? Depression ? Low levels of testosterone that can result in lower sex drive, energy, and strength ? Itching and sweating RISKS ARE GREATER WITH: ? History of drug misuse, substance use disorder, or overdose ? Mental health conditions (such as depression or anxiety) ? Sleep apnea ? Older age (65 years and older) ? Avoid alcohol while taking prescription opioids. Also, unless specifically advised by your health care provider, medications to avoid include: ? Benzodiazepines (such as Xanax or Valium) ? Muscle relaxants (such as Soma or Flexeril) ? Hypnotics (such as Ambien or Lunesta) ? Other prescription opioids KNOW YOUR OPTIONS Talk to your health care provider about ways to manage your pain that don?t involve prescription opioids. Some of these options may actually work better and have fewer risks and side effects. Options may include: ? Pain relievers such as acetaminophen, ibuprofen, and naproxen ? Some medication that are also used for depression or seizures ? Physical therapy and exercise ? Cognitive behavioral therapy, a psychological, goal-directed approach, in which patients learn how to modify physical, behavioral, and emotional triggers of pain and stress. IF YOU ARE PRESCRIBED OPIOIDS FOR PAIN: ? Never take opioids in greater amounts or more often than prescribed. ? Follow up with your primary health care provider. o Work together to create a plan on how to manage your pain. o Talk about ways to help manage your pain that don?t involve prescription opioids. o Talk about any and all concerns and side effects. ? Help prevent misuse and abuse o Never sell or share prescription opioids. o Never use another person?s prescription opioids. ? Store prescription opioids in a secure place and out of reach of others (this may include visitors, children, friends, and family). ? Safely dispose of unused prescription opioids: Find your community drug take-back program or your pharmacy mail-back program, or flush them down the toilet, following guidance from the Food and Drug Administration (www.fda.gov/Drugs/ResourcesF orYou). ? Visit www.cdc.gov/drugoverdose to learn about the risks of opioids abuse and overdose. ? If you believe you may be struggling with addiction, tell your health career technology teacher and ask for guidance or call [facility] National Helpline at 0-648-128-IJNA. v Source: Department of a (more content not included)... Normal [facility] Formson 11-27-2023 Forms [id number] [facility] XR Shoulder Complete Righton 11-27-2023 XR Shoulder Complete Right Exam Date/Time: 11/27/2023 13:33 EDT Reason for Exam: Pain, Traumatic Report IMPRESSION: NEGATIVE MILDLY LIMITED RIGHT SHOULDER. EXAM: XR Shoulder Complete Right DATE: 11/27/2023 1:16 PM CLINICAL HISTORY: Pain, Traumatic. COMPARISON: None available. TECHNIQUE: AP, internal and external rotation AP, transscapular, and axillary radiographs of the right shoulder were obtained. FINDINGS: The study is mildly limited by the patient's body habitus and positioning. There is no fracture, dislocation, acromioclavicular joint separation, significant degenerative changes, narrowing of the subacromial space, pathologic calcifications, or other findings of concern identified. Ordering Provider: Theresa, [place] FINAL REPORT Dictated: 11/27/2023 3:07 pm Naresh Crow MD Signed (Electronic Signature): 11/27/2023 3:07 pm Signed by: Naresh Crow MD Transcribed by: MARTA Technologist: EDGAR Technical Comments Radiation Dose: Ka,r in mGy = na DAP = na Normal [facility] CBC AUTO DIFFon 12-11-2022 BASO # 0.1 103/ul Normal 0.0-0.1 [facility] Comment on above: Performed By: #### P REGU #### [facility] [address] [place] [address] Dr. Jaz Barajas Basophils/100 WBC (Bld) 0.8 % Normal 0.2-2.0 [facility] Comment on above: Performed By: #### P REGU #### [facility] [address] [place] [address] Dr. Jaz Barajas EO # 0.2 103/ul Normal 0.0-0.7 [facility] Comment on above: Performed By: #### P REGU #### [facility] [address] [place] [address] Dr. Jaz Barajas Eosinophils/100 WBC (Bld) 2.1 % Normal 0.9-7.0 [facility] Comment on above: Performed By: #### P REGU #### [facility] [address] [place] [address] Dr. Jaz Barajas Erythrocyte distribution width (RBC) [Ratio] 13.0 % Normal 11.0-15.0 [facility] Comment on above: Performed By: #### P REGU #### [facility] [address] [place] [address] Dr. Jaz Barajas Hematocrit (Bld) [Volume fraction] 41.2 % Normal 36.0-48.0 [facility] Comment on above: Performed By: #### P REGU #### [facility] [address] [place] [address] Dr. Jaz Barajas Hemoglobin (Bld) [Mass/Vol] 13.7 g/dL Normal 12.0-16.0 [facility] Comment on above: Performed By: #### P REGU #### [facility] [address] [address] [address] Jaz Barajas IG # 0.02 10e3/ul Normal 0.00-0.03 [facility] Comment on above: Performed By: #### P REGU #### [facility] [address] [place] [address] Dr. Jaz Barajas IG % 0.2 % Normal 0.0-0.5 [facility] Comment on above: Performed By: #### P REGU #### [facility] [address] [place] [address] Dr. Jaz Barajas LYMPH # 3.3 103/ul Normal 1.2-3.8 [facility] Comment on above: Performed By: #### P REGU #### [facility] [address] [place] [address] Dr. Jaz Barajas Lymphocytes/100 WBC (Bld) 34.8 % Normal 20.5-60.0 [facility] Comment on above: Performed By: #### P REGU #### [facility] [address] [place] [address] Dr. Jaz Barajas MANUAL DIFF REQ NO Normal [facility] Comment on above: Performed By: #### P REGU #### [facility] [address] [place] [address] Dr. Jaz Barajas MCH (RBC) [Entitic mass] 26.6 pg Critically low 26.7-34.0 [facility] Comment on above: Performed By: #### P REGU #### [facility] [address] [place] [address] Dr. Jaz Barajas MCHC (RBC) [Mass/Vol] 33.3 g/dL Normal 29.9-35.2 [facility] Comment on above: Performed By: #### P REGU #### [facility] [address] [place] [address] Dr. Jaz Barajas MCV (RBC) [Entitic vol] 79.8 fL Critically low 81.0-99.0 [facility] Comment on above: Performed By: #### P REGU #### [facility] [address] [address] [address] Jaz Barajas MONO # 0.7 103/ul Normal 0.3-0.8 [facility] Comment on above: Performed By: #### P REGU #### [facility] [address] [address] [address] Jaz Barajas Monocytes/100 WBC (Bld) 7.3 % Normal 1.7-12.0 [facility] Comment on above: Performed By: #### P REGU #### [facility] [address] [address] [address] Jaz Barajas NEUT # 5.3 103/ul Normal 1.4-6.5 [facility] Comment on above: Performed By: #### P REGU #### [facility] [address] [place] [address] Dr. Jaz Barajas Neutrophils/100 WBC (Bld) 54.8 % Normal 43.0-75.0 [facility] Comment on above: Performed By: #### P REGU #### [facility] [address] [place] [address] Dr. Jaz Barajas Platelet mean volume (Bld) [Entitic vol] 10.7 fL Normal 9.5-13.5 [facility] Comment on above: Performed By: #### P REGU #### [facility] [address] [place] [address] Dr. Jaz Barajas PLT 284 103/ul Normal 150-450 [facility] Comment on above: Performed By: #### P REGU #### [facility] [address] [place] [address] Dr. Jaz Barajas RBC 5.16 106/ul Normal 4.20-5.40 [facility] Comment on above: Performed By: #### P REGU #### [facility] [address] [place] [address] Dr. Jaz Barajas WBC 9.6 103/ul Normal 4.0-11.0 [facility] Comment on above: Performed By: #### P REGU #### [facility] [address] [address] [address] Jaz Barajas FREE T4on 12-11-2022 Free T4 [Mass/Vol] 1.10 ng/dL Normal 0.76-1.46 [facility] Comment on above: Performed By: #### P ROGLCM #### [facility] [address] [address] [address] Jaz Barajas LIPID PROFILEon 12-11-2022 CHOL-HDL RATIO NORM SEE BELOW Normal [facility] Comment on above: Result Comment: 3.3 - 4.4 LOW RISK 4.4 - 7.1 AVERAGE RISK 7.1 - 11.0 MODERATE RISK >11.0 HIGH RISK Performed By: #### L IPID, TSH, CMP ####[facility] [address] [address]Dr. Jaz Barajas Cholesterol [Mass/Vol] 168 mg/dL Normal <=200 [facility] Comment on above: Performed By: #### L IPID, TSH, CMP ####[facility] [address] [address]Dr. Jaz Barajas Cholesterol in HDL [Mass/Vol] 32 mg/dL Critically low 40-60 [facility] Comment on above: Performed By: #### L IPID, TSH, CMP ####[facility] [address] [address]Dr. Jaz Barajas Cholesterol in LDL [Mass/Vol] 121.8 mg/dL Normal [facility] Comment on above: Performed By: #### L IPID, TSH, CMP ####[facility] [address] [address]Dr. Jaz Barajas Cholesterol.total/ Cholesterol in HDL [Mass ratio] 5.3 {ratio} Normal [facility] Comment on above: Performed By: #### L IPID, TSH, CMP ####[facility] [address] [address]Dr. Hannahlan Barajas HDL NORMAL > or = 60 mg/dl - LO W CARDIOVASCULAR RISK <40 mg/dl - HIGH CARDIOVASCULAR RISK Normal [facility] Comment on above: Performed By: #### L IPID, TSH, CMP ####[facility] [address] [address]Dr. Jaz Barajas LDL CALC NORMAL SEE BELOW Normal [facility] Comment on above: Result Comment: <100 mg/dl OPTIMAL 100 - 129 mg/dl NEAR OR ABOVE OPTIMAL 130 - 159 mg/dl BORDERLINE HIGH 160 - 189 mg/dl HIGH >190 mg/dl VERY HIGH Performed By: #### L IPID, TSH, CMP ####[facility] [address] [address]Dr. Jaz Barajas Triglyceride [Mass/Vol] 71 mg/dL Normal <=150 [facility] Comment on above: Performed By: #### L IPID, TSH, CMP ####[facility] [address] [address]Dr. Jaz Barajas VLDL CALC 14.2 mg/dL Normal [facility] Comment on above: Performed By: #### L IPID, TSH, CMP ####[facility] [address] [address]Dr. Jaz Barajas MICROALBUMIN, RAND URon 11-30 mALB <1.3 Normal <=30.0 [facility] Comment on above: Performed By: #### P REGU #### [facility] [address] [address] [address] Jaz Barajas PROF 14(COMP METB)on 023 Albumin [Mass/Vol] 3.7 g/dL Normal 3.4-5.0 [facility] Comment on above: Performed By: #### L IPID, TSH, CMP ####[facility] [address] [address]Dr. Jaz Barajas Albumin/Globulin [Mass ratio] 0.8 {ratio} Normal [facility] Comment on above: Performed By: #### L IPID, TSH, CMP ####[facility] [address] [address]Dr. Jaz Barajas ALP [Catalytic activity/Vol] 90 U/L Normal 46-116 [facility] Comment on above: Performed By: #### L IPID, TSH, CMP ####[facility] [address] [address]Dr. Jaz Barajas ALT [Catalytic activity/Vol] 106 U/L Critically high 14-59 [facility] Comment on above: Performed By: #### L IPID, TSH, CMP ####[facility] [address] [address]Dr. Jaz Barajas Anion gap [Moles/Vol] 12.5 mmol/L Normal [facility] Comment on above: Performed By: #### L IPID, TSH, CMP ####[facility] [address] [address]Dr. Jaz Barajas AST [Catalytic activity/Vol] 43 U/L Critically high 15-37 [facility] Comment on above: Performed By: #### L IPID, TSH, CMP ####[facility] [address] [place], [place] [address]Dr. Jaz Barajas Bilirubin [Mass/Vol] 0.4 mg/dL Normal 0.2-1.0 [facility] Comment on above: Performed By: #### L IPID, TSH, CMP ####[facility] [address] [place], [place] [address]Dr. Jaz Barajas Calcium [Mass/Vol] 9.0 mg/dL Normal 8.5-10.1 [facility] Comment on above: Performed By: #### L IPID, TSH, CMP ####[facility] [address] [place], [place] [address]Dr. Jaz Barajas Chloride [Moles/Vol] 104 mmol/L Normal 98-107 [facility] Comment on above: Performed By: #### L IPID, TSH, CMP ####[facility] [address] [place], [place] [address]Dr. Jaz Barajas CO2 [Moles/Vol] 25.8 mmol/L Normal 21.0-32.0 [facility] Comment on above: Performed By: #### L IPID, TSH, CMP ####[facility] [address] [place], [place] [address]Dr. Jaz Barajas Creatinine [Mass/Vol] 0.76 mg/dL Normal 0.55-1.02 [facility] Comment on above: Performed By: #### L IPID, TSH, CMP ####[facility] [address] [address]Dr. Jaz Barajas EGFR-AF NAMIBIAN >60 Normal >=60 [facility] Comment on above: Performed By: #### L IPID, TSH, CMP ####[facility] [address] [address]Dr. Jaz Barajas EGFR-NON AF NAMIBIAN >60 Normal >=60 [facility] Comment on above: Performed By: #### L IPID, TSH, CMP ####[facility] [address] [place], [place] [address]Dr. Jaz Barajas Globulin (S) [Mass/Vol] 4.4 g/dL Normal [facility] Comment on above: Performed By: #### L IPID, TSH, CMP ####[facility] [address] [place], [place] [address]Dr. Jaz Barajas Glucose [Mass/Vol] 228 mg/dL Critically high 74-106 [facility] Comment on above: Performed By: #### L IPID, TSH, CMP ####[facility] [address] [place], [place] [address]Dr. Jaz Barajas Potassium [Moles/Vol] 4.3 mmol/L Normal 3.5-5.1 [facility] Comment on above: Performed By: #### L IPID, TSH, CMP ####[facility] [address] [place], [place] [address]Dr. Jaz Barajas Protein [Mass/Vol] 8.1 g/dL Normal 6.4-8.2 [facility] Comment on above: Performed By: #### L IPID, TSH, CMP ####[facility] [address] [place], [place] [address]Dr. Jaz Barajas Sodium [Moles/Vol] 138 mmol/L Normal 136-145 [facility] Comment on above: Performed By: #### L IPID, TSH, CMP ####[facility] [address] [address]Dr. Jaz Barajas Urea nitrogen [Mass/Vol] 21.0 mg/dL Critically high 7.0-18.0 [facility] Comment on above: Performed By: #### L IPID, TSH, CMP ####[facility] [address] [address]Dr. Jaz Barajas Urea nitrogen/Creatinin e [Mass ratio] 27.6 mg/mg Normal [facility] Comment on above: Performed By: #### L IPID, TSH, CMP ####[facility] [address] [address]Dr. Jaz Barajas TSHon 12-11-2022 TSH 3.602 uIU/mL Normal 0.358-3.740 [facility] Comment on above: Performed By: #### L IPID TSH, CMP ####[facility] [address] [place], [place] [address]Dr. Jaz Barajas UA RANDOM W/MICROSCOPICon BACTERIA NONE SEEN Normal NONE SEEN [facility] Comment on above: Performed By: #### U AMIC ####[facility] [address] [place], [place] [address]Dr. Jaz Barajas Bilirubin Ql (U) Negative Normal NEGATIVE [facility] Comment on above: Performed By: #### U AMIC ####[facility] [address] [address]Dr. Jaz Barajas CAST NONE SEEN Normal NONE SEEN [facility] Comment on above: Performed By: #### U AMIC ####[facility] [address] [place], [place] [address]Dr. Jaz Barajas Clarity (U) CLEAR Normal CLEAR [facility] Comment on above: Performed By: #### U AMIC ####[facility] [address] [place], [place] [address]Dr. Jaz Barajas Color (U) LT. YELLOW Normal YELLOW [facility] Comment on above: Performed By: #### U AMIC ####[facility] [address] [place], [place] [address]Dr. Jaz Barajas Crystals LM Nom (Urine sed) NONE SEEN Normal NONE SEEN [facility] Comment on above: Performed By: #### U AMIC ####[facility] [address] [address]Dr. Jaz Barajas Epithelial cells LM Ql (Urine sed) RARE Normal NONE SEEN /RARE [facility] Comment on above: Performed By: #### U AMIC ####[facility] [address] [address]Dr. Jaz Barajas Glucose Ql (U) >1000 Abnormal NEGATIVE [facility] Comment on above: Performed By: #### U AMIC ####[facility] [address] [address]Dr. Jaz Barajas Hemoglobin Ql (U) Negative Normal NEGATIVE [facility] Comment on above: Performed By: #### U AMIC ####[facility] [address] [place], [place] [address]Dr. Jaz Barajas Ketones Ql (U) Negative Normal NEGATIVE [facility] Comment on above: Performed By: #### U AMIC ####[facility] [address] [place], [place] [address]Dr. Jaz Barajas LEUKOCYTES Negative Normal NEGATIVE [facility] Comment on above: Performed By: #### U AMIC ####[facility] [address] [id number]. Jaz Barajas MUCOUS NONE SEEN Normal NONE SEEN [facility] Comment on above: Performed By: #### U AMIC ####[facility] [address] [place], [place] [address]Dr. Jaz Barajas Nitrite Ql (U) Negative Normal NEGATIVE [facility] Comment on above: Performed By: #### U AMIC ####[facility] [address] [place], [place] [address]Dr. Jaz Barajas pH (U) 6.0 [pH] Normal 5-9 [facility] Comment on above: Performed By: #### U AMIC ####[facility] [address] [place], [place] [address]Dr. Jaz Barajas RBC NONE SEEN Abnormal 0-2 [facility] Comment on above: Performed By: #### U AMIC ####[facility] [address] [id number] Barajas SPEC GRAVITY 1.020 Normal 1.005-<=1.02 5 [facility] Comment on above: Performed By: #### U AMIC ####[facility] [address] [id number] Barajas UA PROTEIN Negative Normal NEGATIVE/ TRACE [facility] Comment on above: Performed By: #### U AMIC ####[facility] [address] [id number]. Jaz Barajas Urobilinogen Qn (U) 0.2 {Oxana'U}/dL Normal 0.2 - 1.0 [facility] Comment on above: Performed By: #### U AMIC ####[facility] [address] [address]DrPratibha Barajas WBC 0-2 Abnormal NONE SEEN [facility] Comment on above: Performed By: #### U AMIC ####[facility] [address] [id number] Barajas VITAMIN D 25 OHon 12-11-2022 VIT D 25-OH 30.9 ng/mL Normal [facility] Comment on above: Performed By: #### P VALENTINELCM #### [facility] [address] [address] [address] Jaz Barajas VIT D RANGES SEE BELOW Normal [facility] Comment on above: Result Comment: <20 ng/mL Vit D deficient 20 - <30 ng/mL Vit D insufficient 30 - 100 ng/mL Vit D sufficient >100 ng/mL Potential Toxicity Performed By: #### P VALENTINELCM #### [facility] [address] [address] [address] Jaz Barajas CBC AUTO DIFFon 11-15-2022 BASO # 0.1 103/ul Normal 0.0-0.1 [facility] Comment on above: Performed By: #### P VALENTINELCM #### [facility] [address] [address] [address] Jaz Barajas Basophils/100 WBC (Bld) 0.6 % Normal 0.2-2.0 [facility] Comment on above: Performed By: #### P ROGLCM #### [facility] [address] [address] [address] Jaz Barajas EO # 0.2 103/ul Normal 0.0-0.7 [facility] Comment on above: Performed By: #### P ROGLCM #### [facility] [address] [place] [address] Dr. Jaz Barajas Eosinophils/100 WBC (Bld) 2.0 % Normal 0.9-7.0 [facility] Comment on above: Performed By: #### P ROGLCM #### [facility] [address] [place] [address] Dr. Jaz Barajas Erythrocyte distribution width (RBC) [Ratio] 13.3 % Normal 11.0-15.0 [facility] Comment on above: Performed By: #### P ROGLCM #### [facility] [address] [place] [address] Dr. Jaz Barajas Hematocrit (Bld) [Volume fraction] 40.4 % Normal 36.0-48.0 [facility] Comment on above: Performed By: #### P ROGLCM #### [facility] [address] [place] [address] Dr. Jaz Barajsa Hemoglobin (Bld) [Mass/Vol] 13.5 g/dL Normal 12.0-16.0 [facility] Comment on above: Performed By: #### P ROGLCM #### [facility] [address] [place] [address] Dr. Jaz Barajas IG # 0.03 10e3/ul Normal 0.00-0.03 [facility] Comment on above: Performed By: #### P ROGLCM #### [facility] [address] [place] [address] Dr. Jaz Barajas IG % 0.3 % Normal 0.0-0.5 [facility] Comment on above: Performed By: #### P ROGLCM #### [facility] [address] [address] [address] Jaz Barajas LYMPH # 3.3 103/ul Normal 1.2-3.8 [facility] Comment on above: Performed By: #### P ROGLCM #### [facility] [address] [address] [address] Jaz Barajas Lymphocytes/100 WBC (Bld) 30.7 % Normal 20.5-60.0 [facility] Comment on above: Performed By: #### P ROGLCM #### [facility] [address] [address] [address] Jaz Barajas MANUAL DIFF REQ NO Normal [facility] Comment on above: Performed By: #### P ROGLCM #### [facility] [address] [place] [address] Dr. Jaz Barajas MCH (RBC) [Entitic mass] 26.6 pg Critically low 26.7-34.0 [facility] Comment on above: Performed By: #### P ROGLCM #### [facility] [address] [place] [address] Dr. Jaz Barajas MCHC (RBC) [Mass/Vol] 33.4 g/dL Normal 29.9-35.2 [facility] Comment on above: Performed By: #### P ROGLCM #### [facility] [address] [place] [address] Dr. Jaz Barajas MCV (RBC) [Entitic vol] 79.7 fL Critically low 81.0-99.0 [facility] Comment on above: Performed By: #### P ROGLCM #### [facility] [address] [place] [address] Dr. Jaz Barajas MONO # 0.8 103/ul Normal 0.3-0.8 [facility] Comment on above: Performed By: #### P ROGLCM #### [facility] [address] [place] [address] Dr. Jaz Barajas Monocytes/100 WBC (Bld) 7.4 % Normal 1.7-12.0 [facility] Comment on above: Performed By: #### P ROGLCM #### [facility] [address] [address] [address] Jaz Barajas NEUT # 6.3 103/ul Normal 1.4-6.5 [facility] Comment on above: Performed By: #### P ROGLCM #### [facility] [address] [address] [address] Jaz Barajas Neutrophils/100 WBC (Bld) 59.0 % Normal 43.0-75.0 [facility] Comment on above: Performed By: #### P ROGLCM #### [facility] [address] [address] [address] Jaz Barajas Platelet mean volume (Bld) [Entitic vol] 10.7 fL Normal 9.5-13.5 [facility] Comment on above: Performed By: #### P ROGLCM #### [facility] [address] [place] [address] Dr. Jaz Barajas PLT 326 103/ul Normal 150-450 [facility] Comment on above: Performed By: #### P ROGLCM #### [facility] [address] [address] [address] Jaz Barajas RBC 5.07 106/ul Normal 4.20-5.40 [facility] Comment on above: Performed By: #### P ROGLCM #### [facility] [address] [address] [address] Jaz Barajas WBC 10.7 103/ul Normal 4.0-11.0 [facility] Comment on above: Performed By: #### P ROGLCM #### [facility] [address] [place] [address] ABD/PELV W CONon 11-16-19 CT ABD/PELV W CON EXAMINATION: CT ABD/ [...] GERALDINE LAZAR Date: 2022-11-15 09:13 Normal [facility] ER URINE PROFILEon 3 Bilirubin Ql (U) Negative Normal NEGATIVE [facility] Comment on above: Performed By: #### P ROGLCM #### [facility] [address] [place] [address] Dr. Jaz Barajas Clarity (U) CLEAR Normal CLEAR [facility] Comment on above: Performed By: #### P ROGLCM #### [facility] [address] [place] [address] Dr. Jaz Barajas Color (U) LT. YELLOW Normal YELLOW [facility] Comment on above: Performed By: #### P ROGLCM #### [facility] [address] [place] [address] Dr. Jaz Barajas ERUAHD A micrscopic examina tion will be performed if indicated. Normal [facility] Comment on above: Performed By: #### P ROGLCM #### [facility] [address] [place] [address] Dr. Jaz Barajas Glucose Ql (U) 1000 mg/dl Abnormal NEGATIVE [facility] Comment on above: Performed By: #### P ROGLCM #### [facility] [address] [place] [address] Dr. Jaz Barajas Hemoglobin Ql (U) Negative Normal NEGATIVE [facility] Comment on above: Performed By: #### P ROGLCM #### [facility] [address] [place] [address] Dr. Jaz Barajas Ketones Ql (U) Negative Normal NEGATIVE [facility] Comment on above: Performed By: #### P ROGLCM #### [facility] [address] [place] [address] Dr. Jaz Barajas LEUKOCYTES Negative Normal NEGATIVE [facility] Comment on above: Performed By: #### P ROGLCM #### [facility] [address] [place] [address] Dr. Jaz Barajas Nitrite Ql (U) Negative Normal NEGATIVE [facility] Comment on above: Performed By: #### P ROGLCM #### [facility] [address] [place] [address] Dr. Jaz Barajas pH (U) 6.0 [pH] Normal 5-9 [facility] Comment on above: Performed By: #### P ROGLCM #### [facility] [address] [place] [address] Dr. Jaz Barajas SPEC GRAVITY 1.015 Normal 1.005-<=1.02 5 [facility] Comment on above: Performed By: #### P ROGLCM #### [facility] [address] [place] [address] Dr. Jaz Barajas UA PROTEIN Negative Normal NEGATIVE/ TRACE [facility] Comment on above: Performed By: #### P ROGLCM #### [facility] [address] [place] [address] Dr. Jaz Barajas UR MICRO IND NOT INDICATED Normal [facility] Comment on above: Performed By: #### P ROGLCM #### [facility] [address] [place] [address] Dr. Jaz Barajas Urobilinogen Qn (U) 0.2 {Oxana'U}/dL Normal 0.2 - 1.0 [facility] Comment on above: Performed By: #### P ROGLCM #### [facility] [address] [address] [address] Jaz Barajas LIPASEon 11-15-2022 Lipase [Catalytic activity/Vol] 73.0 U/L Normal 73.0-393.0 [facility] Comment on above: Performed By: #### P REGU #### [facility] [address] [address] [address] Jaz Barajas URon 11-15-2022 , QUAL Negative Normal NEGATIVE [facility] Comment on above: Performed By: #### E RUR, PREGU ####[facility] [address] [address]Dr. Jaz Barajas PROF 14(COMP METB)on 023 Albumin [Mass/Vol] 3.6 g/dL Normal 3.4-5.0 [facility] Comment on above: Performed By: #### P REGU #### [facility] [address] [address] [address] Jaz Barajas Albumin/Globulin [Mass ratio] 0.9 {ratio} Normal [facility] Comment on above: Performed By: #### P REGU #### [facility] [address] [address] [address] Jaz Barajas ALP [Catalytic activity/Vol] 98 U/L Normal 46-116 [facility] Comment on above: Performed By: #### P REGU #### [facility] [address] [address] [address] Jaz Barajas ALT [Catalytic activity/Vol] 138 U/L Critically high 14-59 [facility] Comment on above: Performed By: #### P REGU #### [facility] [address] [address] [address] Jaz Barajas Anion gap [Moles/Vol] 13.4 mmol/L Normal [facility] Comment on above: Performed By: #### P REGU #### [facility] [address] [address] [address] Jaz Barajas AST [Catalytic activity/Vol] 61 U/L Critically high 15-37 [facility] Comment on above: Performed By: #### P REGU #### [facility] [address] [address] [address] Jaz Barajas Bilirubin [Mass/Vol] 0.2 mg/dL Normal 0.2-1.0 [facility] Comment on above: Performed By: #### P REGU #### [facility] [address] [address] [address] Jaz Barajas Calcium [Mass/Vol] 9.4 mg/dL Normal 8.5-10.1 [facility] Comment on above: Performed By: #### P REGU #### [facility] [address] [address] [address] Jaz Barajas Chloride [Moles/Vol] 104 mmol/L Normal 98-107 [facility] Comment on above: Performed By: #### P REGU #### [facility] [address] [place] [address] Dr. Jaz Barajas CO2 [Moles/Vol] 24.7 mmol/L Normal 21.0-32.0 [facility] Comment on above: Performed By: #### P REGU #### [facility] [address] [place] [address] Dr. Jaz Barajas Creatinine [Mass/Vol] 0.69 mg/dL Normal 0.55-1.02 [facility] Comment on above: Performed By: #### P REGU #### [facility] [address] [place] [address] Dr. Jaz Barajas EGFR-AF NAMIBIAN >60 Normal >=60 [facility] Comment on above: Performed By: #### P REGU #### [facility] [address] [address] [address] Jaz Barajas EGFR-NON AF NAMIBIAN >60 Normal >=60 [facility] Comment on above: Performed By: #### P REGU #### [facility] [address] [place] [address] Dr. Jaz Barajas Globulin (S) [Mass/Vol] 4.2 g/dL Normal [facility] Comment on above: Performed By: #### P REGU #### [facility] [address] [address] [address] Jaz Barajas Glucose [Mass/Vol] 339 mg/dL Critically high 74-106 [facility] Comment on above: Performed By: #### P REGU #### [facility] [address] [address] [address] Jaz Barajas Potassium [Moles/Vol] 4.1 mmol/L Normal 3.5-5.1 [facility] Comment on above: Performed By: #### P REGU #### [facility] [address] [address] [address] Jaz Barajas Protein [Mass/Vol] 7.8 g/dL Normal 6.4-8.2 [facility] Comment on above: Performed By: #### P REGU #### [facility] [address] [place] [address] Dr. Jaz Barajas Sodium [Moles/Vol] 138 mmol/L Normal 136-145 [facility] Comment on above: Performed By: #### P REGU #### [facility] [address] [address] [address] Jaz Barajas Urea nitrogen [Mass/Vol] 17.0 mg/dL Normal 7.0-18.0 [facility] Comment on above: Performed By: #### P REGU #### [facility] [address] [place] [address] Dr. Jaz Barajas Urea nitrogen/Creatinin e [Mass ratio] 24.6 mg/mg Normal [facility] Comment on above: Performed By: #### P REGU #### [facility] [address] [place] [address] Dr. Jaz Barajas CULTURE WOUNDon 11-13-2022 CULTURE [...] S F Tetracycline >=16 R F Normal [facility] Comment on above: Performed By: #### W OUNDCX ####[facility] [address] [place], [place] [address]JdDr. Jaz Barajas Covid-19 PCR ([facility]on 08-01 SARS-CoV-2 (COVID-19) RNA REANNA+probe Ql (Unsp spec) Not detected Normal NOT DETECTED [facility] Comment on above: Result Comment: This test is not yet approved or cleared by the [place] FDA. When there are no FDA-approved or cleared tests available, and other criteria are met, FDA can make tests available under an emergency access mechanism called an Emergency Use Authorization (EUA). The EUA for this test is supported by the [place] of Health and Human Service's (HHS's) declaration [...] consistent with SARS-CoV-2. Performed By: #### P DUSTINM #### [facility] [address] [address] [address] Jaz Barajas INFLUENZA A AND B AGon 08-18 INFLUANE SEE BELOW Normal [facility] Comment on above: Result Comment: Nega tive for Flu A protein angiten. Infection due to Flu A cannot be ruled out. Flu A angiten in the sample may be below the detection limit of the test. Performed By: #### P DUSTINM #### [facility] [address] [address] [address] Jaz Barjaas INFLUBNEG SEE BELOW Normal [facility] Comment on above: Result Comment: Nega tive for Flu B protein antigen. Infection due to Flu B cannot be ruled out. Flu B antigen in the sample may be below the detection limit of the test. Performed By: #### P ROGLCM #### [facility] [address] [address] [address] Jaz Barajas INFLUENZA A AG Negative Normal NEGATIVE SEE COMMENT [facility] Comment on above: Performed By: #### P ROGLCM #### [facility] [address] [address] [address] Jaz Barajas INFLUENZA B AG Negative Normal NEGATIVE SEE COMMENT [facility] Comment on above: Performed By: #### P ROGLCM #### [facility] [address] [address] [address] Jaz Barajas INTERNAL CONTROLS Within Normal Limits Normal Wi thin Normal Limits [facility] Comment on above: Performed By: #### P ROGLCM #### [facility] [address] [place] [address] Dr. Jaz Barajas POINT OF CARE GLUCOSEon 12- Glucose [Mass/Vol] 310 mg/dL Critically high 74-106 [facility] Comment on above: Performed By: #### P ROGLCM #### [facility] [address] [address] [address] Jaz Barajas XR CHEST 1 Von [...] EDUARDO RHODES Date: 2022-08-18 15:33 Normal [facility] PREG HCG QUALon 05-14-2022 , QUAL Negative Normal NEGATIVE [facility] Comment on above: Performed By: #### P REG ####[facility] [address] [address]Dr. Jaz Barajas CBC AUTO DIFFon 05-08-2022 BASO # 0.1 103/ul Normal 0.0-0.1 [facility] Comment on above: Performed By: #### C BC ####[facility] [address] [place], [place] [address]Dr. Jaz Karl Basophils/100 WBC (Bld) 0.6 % Normal 0.2-2.0 [facility] Comment on above: Performed By: #### C BC ####[facility] [address] [place], [place] [address]Dr. Jaz Barajas EO # 0.2 103/ul Normal 0.0-0.7 [facility] Comment on above: Performed By: #### C BC ####[facility] [address] [place], [place] [address]Dr. Jaz Barajas Eosinophils/100 WBC (Bld) 1.5 % Normal 0.9-7.0 [facility] Comment on above: Performed By: #### C BC ####[facility] [address] [place], [place] [address]Dr. Jaz Barajas Erythrocyte distribution width (RBC) [Ratio] 12.6 % Normal 11.0-15.0 [facility] Comment on above: Performed By: #### C BC ####[facility] [address] [place], [place] [address]Dr. Jaz Karl Hematocrit (Bld) [Volume fraction] 38.7 % Normal 36.0-48.0 [facility] Comment on above: Performed By: #### C BC ####[facility] [address] [place], [place] [address]Dr. Jaz Karl Hemoglobin (Bld) [Mass/Vol] 12.9 g/dL Normal 12.0-16.0 [facility] Comment on above: Performed By: #### C BC ####[facility] [address] [place], [place] [address]Dr. Jaz Barajas IG # 0.02 10e3/ul Normal 0.00-0.03 [facility] Comment on above: Performed By: #### C BC ####[facility] [address] [place], [place] [address]Dr. Jaz Barajas IG % 0.2 % Normal 0.0-0.5 [facility] Comment on above: Performed By: #### C BC ####[facility] [address] [address]Dr. Jaz Karl LYMPH # 3.5 103/ul Normal 1.2-3.8 [facility] Comment on above: Performed By: #### C BC ####[facility] [address] [address]Dr. Jaz Karl Lymphocytes/100 WBC (Bld) 34.4 % Normal 20.5-60.0 [facility] Comment on above: Performed By: #### C BC ####[facility] [address] [place], [place] [address]Dr. Hannahisela Barajas MANUAL DIFF REQ NO Normal [facility] Comment on above: Performed By: #### C BC ####[facility] [address] [place], [place] [address]Dr. Jaz Karl MCH (RBC) [Entitic mass] 27.2 pg Normal 26.7-34.0 [facility] Comment on above: Performed By: #### C BC ####[facility] [address] [place], [place] [address]Dr. Jaz Barajas MCHC (RBC) [Mass/Vol] 33.3 g/dL Normal 29.9-35.2 [facility] Comment on above: Performed By: #### C BC ####[facility] [address] [place], [place] [address]Dr. Jaz Barajas MCV (RBC) [Entitic vol] 81.6 fL Normal 81.0-99.0 [facility] Comment on above: Performed By: #### C BC ####[facility] [address] [place], [place] [address]DrPratibha Barajas MONO # 0.7 103/ul Normal 0.3-0.8 [facility] Comment on above: Performed By: #### C BC ####[facility] [address] [place], [place] [address]Dr. Jaz Barajas Monocytes/100 WBC (Bld) 7.0 % Normal 1.7-12.0 [facility] Comment on above: Performed By: #### C BC ####[facility] [address] [id number]. Jaz Barajas NEUT # 5.7 103/ul Normal 1.4-6.5 [facility] Comment on above: Performed By: #### C BC ####[facility] [address] [address]Dr. Jaz Barajas Neutrophils/100 WBC (Bld) 56.3 % Normal 43.0-75.0 [facility] Comment on above: Performed By: #### C BC ####[facility] [address] [address]Dr. Jaz Barajas Platelet mean volume (Bld) [Entitic vol] 11.0 fL Normal 9.5-13.5 [facility] Comment on above: Performed By: #### C BC ####[facility] [address] [address]Dr. Jaz Barajas PLT 274 103/ul Normal 150-450 [facility] Comment on above: Performed By: #### C BC ####[facility] [address] [address]Dr. Jaz Barajas RBC 4.74 106/ul Normal 4.20-5.40 [facility] Comment on above: Performed By: #### C BC ####[facility] [address] [address]Dr. Jaz Barajas WBC 10.0 103/ul Normal 4.0-11.0 [facility] Comment on above: Performed By: #### C BC ####[facility] [address] [id number]. Jaz Barajas Covid-19 PCR ([facility])on SARS-CoV-2 (COVID-19) RNA REANNA+probe Ql (Unsp spec) Not detected Normal NOT DETECTED [facility] Comment on above: Result Comment: This test is not yet approved or cleared by the [place] FDA. When there are no FDA-approved or cleared tests available, and other criteria are met, FDA can make tests available under an emergency access mechanism called an Emergency Use Authorization (EUA). The EUA for this test is supported by the [place] of Health and Human Service's (HHS's) declaration [...] SARS-CoV-2. Performed By: #### P REGU #### [facility] [address] [place] [address] Dr. Jaz Barajas PROF CHEM 8 (BAS METB)on Anion gap [Moles/Vol] 10.1 mmol/L Normal [facility] Comment on above: Performed By: #### P REGU #### [facility] [address] [place] [address] Dr. Jaz Barajas Calcium [Mass/Vol] 9.0 mg/dL Normal 8.5-10.1 [facility] Comment on above: Performed By: #### P REGU #### [facility] [address] [place] [address] Dr. Jza Barajas Chloride [Moles/Vol] 99 mmol/L Normal 98-107 [facility] Comment on above: Performed By: #### P REGU #### [facility] [address] [place] [address] Dr. Jaz Barajas CO2 [Moles/Vol] 29.1 mmol/L Normal 21.0-32.0 [facility] Comment on above: Performed By: #### P REGU #### [facility] [address] [place] [address] Dr. Jaz Barjaas Creatinine [Mass/Vol] 0.80 mg/dL Normal 0.55-1.02 [facility] Comment on above: Performed By: #### P REGU #### [facility] [address] [address] [address] Jaz Barajas EGFR-AF NAMIBIAN >60 Normal >=60 [facility] Comment on above: Performed By: #### P REGU #### [facility] [address] [address] [address] Jaz Barajas EGFR-NON AF NAMIBIAN >60 Normal >=60 [facility] Comment on above: Performed By: #### P REGU #### [facility] [address] [address] [address] Jaz Barajas Glucose [Mass/Vol] 217 mg/dL Critically high 74-106 T [facility] Comment on above: Performed By: #### P REGU #### [facility] [address] [place] [address] Dr. Jaz Barajas Potassium [Moles/Vol] 4.2 mmol/L Normal 3.5-5.1 [facility] Comment on above: Result Comment: spec imen slightly hemolyzed may affect K+ result Performed By: #### P REGU #### [facility] [address] [address] [address] Jaz Barajas Sodium [Moles/Vol] 134 mmol/L Critically low 136-145 Th [facility] Comment on above: Performed By: #### P REGU #### [facility] [address] [place] [address] Dr. Jaz Barajas Urea nitrogen [Mass/Vol] 11.0 mg/dL Normal 7.0-18.0 [facility] Comment on above: Performed By: #### P REGU #### [facility] [address] [place] [address] Dr. Jaz Barajas Urea nitrogen/Creatinin e [Mass ratio] 13.8 mg/mg Normal [facility] Comment on above: Performed By: #### P REGU #### [facility] [address] [place] [address] ABD/PELV W CONon [...] JEYSON BLANTON Date: 2022-04-18 12:31 Normal [facility] ER URINE PROFILEon 2 Bilirubin Ql (U) Negative Normal NEGATIVE [facility] Comment on above: Performed By: #### E RUR, PREGU ####[facility] [address] [address]Dr. Jaz Barajas Clarity (U) CLEAR Normal CLEAR [facility] Comment on above: Performed By: #### E RUR, PREGU ####[facility] [address] [id number]. Jaz Barajas Color (U) LT. YELLOW Normal YELLOW [facility] Comment on above: Performed By: #### E RUR, PREGU ####[facility] [address] [place], [place] [address]Dr. Jaz RAMIREZAHD A micrscopic examina tion will be performed if indicated. Normal [facility] Comment on above: Performed By: #### E RUR, PREGU ####[facility] [address] [address]Dr. Jaz Barajas Glucose Ql (U) 1000 mg/dl Abnormal NEGATIVE [facility] Comment on above: Performed By: #### E RUR, PREGU ####[facility] [address] [place], [place] [address]Dr. Jaz Barajas Hemoglobin Ql (U) Negative Normal NEGATIVE [facility] Comment on above: Performed By: #### E RUR, PREGU ####[facility] [address] [place], [place] [address]Dr. Jaz Barajas Ketones Ql (U) Negative Normal NEGATIVE [facility] Comment on above: Performed By: #### E RUR, PREGU ####[facility] [address] [place], [place] [address]Dr. Jaz Barajas LEUKOCYTES Negative Normal NEGATIVE [facility] Comment on above: Performed By: #### Neva RUR, PREGU ####[facility] [address] [place], [place] [address]Dr. Jaz Barajas Nitrite Ql (U) Negative Normal NEGATIVE [facility] Comment on above: Performed By: #### Neva RUR, PREGU ####[facility] [address] [place], [place] [address]Dr. Jaz Barajas pH (U) 6.5 [pH] Normal 5-9 [facility] Comment on above: Performed By: #### E RUR, PREGU ####[facility] [address] [place], [place] [address]Dr. Jaz Barajas SPEC GRAVITY 1.010 Normal 1.005-<=1.02 5 [facility] Comment on above: Performed By: #### E RUR, PREGU ####[facility] [address] [place], [place] [address]Dr. Jaz Barajas UA PROTEIN Negative Normal NEGATIVE/ TRACE [facility] Comment on above: Performed By: #### E RUR, PREGU ####[facility] [address] [address]Dr. Jaz Barajas UR MICRO IND NOT INDICATED Normal [facility] Comment on above: Performed By: #### E RUR, PREGU ####[facility] [address] [address]Dr. Jaz Barajas Urobilinogen Qn (U) 0.2 {Oxana'U}/dL Normal 0.2 - 1.0 [facility] Comment on above: Performed By: #### E RUR, PREGU ####[facility] [address] [address]Dr. Jaz Barajas URon 04-18-2022 , QUAL Negative Normal NEGATIVE [facility] Comment on above: Performed By: #### E RUR, PREGU ####[facility] [address] [address]Dr. Jaz Barajas 17-[place] PROGESTERONE, LC/MSon 04-05-2022 17-OH Progesterone LCMS 43 ng/dL Normal [facility] Comment on above: Result Comment: Adul t Female Follicular 15 - 70 Luteal 35 - 290 Performed By: #### P ROGLCM #### [facility] [address] [address] [address] Jaz Barajas ANDROSTENEDINE LC/MSon 04-05 Androstenedione LCMS 111 ng/dL Normal 41-262 [facility] Comment on above: Result Comment: This test was developed and its performance characteristics determined by [facility]. It has not been cleared or approved by the Food and Drug Administration. Performed By: #### A NDROST #### [facility] [address] [address] [address] Jaz Barajas TESTOSTERONE, TOTALon 2021 Testosterone [Mass/Vol] 70 ng/dL Critically high 8-60 [facility] Comment on above: Performed By: #### T ESTTOT ####[facility] [address] [address]Dr. Jaz Barajas PROF CHEM 8 (BAS METB)on Anion gap [Moles/Vol] 11.5 mmol/L Normal [facility] Comment on above: Performed By: #### B MP ####[facility] [address] [address]Dr. Jaz Barajas Calcium [Mass/Vol] 9.1 mg/dL Normal 8.5-10.1 [facility] Comment on above: Performed By: #### B MP ####[facility] [address] [address]Dr. Jaz Barajas Chloride [Moles/Vol] 103 mmol/L Normal 98-107 [facility] Comment on above: Performed By: #### B MP ####[facility] [address] [address]Dr. Jaz Barajas CO2 [Moles/Vol] 28.0 mmol/L Normal 21.0-32.0 [facility] Comment on above: Performed By: #### B MP ####[facility] [address] [place], [place] [address]Dr. Jaz Barajas Creatinine [Mass/Vol] 0.74 mg/dL Normal 0.55-1.02 [facility] Comment on above: Performed By: #### B MP ####[facility] [address] [address]Dr. Jaz Barajas EGFR-AF NAMIBIAN >60 Normal >=60 [facility] Comment on above: Performed By: #### B MP ####[facility] [address] [address]Dr. Jaz Barajas EGFR-NON AF NAMIBIAN >60 Normal >=60 [facility] Comment on above: Performed By: #### B MP ####[facility] [address] [address]Dr. Jaz Barajas Glucose [Mass/Vol] 197 mg/dL Critically high 74-106 [facility] Comment on above: Performed By: #### B MP ####[facility] [address] [place], [place] [address]Dr. Jaz Barajas Potassium [Moles/Vol] 4.5 mmol/L Normal 3.5-5.1 [facility] Comment on above: Performed By: #### B MP ####[facility] [address] [address]Dr. Jaz Barajas Sodium [Moles/Vol] 138 mmol/L Normal 136-145 [facility] Comment on above: Performed By: #### B MP ####[facility] [address] [address]Dr. Jaz Barajas Urea nitrogen [Mass/Vol] 11.0 mg/dL Normal 7.0-18.0 [facility] Comment on above: Performed By: #### B MP ####[facility] [address] [address]Dr. Jaz Barajas Urea nitrogen/Creatinin e [Mass ratio] 14.9 mg/mg Normal [facility] Comment on above: Performed By: #### B MP ####[facility] [address] [address]DrPratibha Barajas XR ABD FLAT_UPon 02-06-2022 XR ABD FLAT_UP [...] JOSE EDUARDO RIVERS Date: 2022-02-06 17:25 Normal [facility] CREATININEon 01-31-2022 Creatinine [Mass/Vol] 0.74 mg/dL Normal 0.55-1.02 [facility] Comment on above: Performed By: #### P ROGLCM #### [facility] [address] [address] [address] Jaz Barajas EGFR-AF NAMIBIAN >60 Normal >=60 [facility] Comment on above: Performed By: #### P VALENTINELCM #### [facility] [address] [address] [address] Jaz Barajas EGFR-NON AF NAMIBIAN >60 Normal >=60 [facility] Comment on above: Performed By: #### P ROGLCM #### [facility] [address] [place], [place] [address] ABDOMEN W CONon [...] by: JEYSON BLANTON Date: 2022-01-31 18:16 Normal [facility] ACETONE SERUMon 01-09-2022 ACETONE Negative Normal NEGATIVE [facility] Comment on above: Performed By: #### A CETON ####[facility] [address] [place], [place] [address]Dr. Jaz Barajas CARDIAC BISI ADMITon 022 CK [Catalytic activity/Vol] 58 U/L Normal 26-192 [facility] Comment on above: Performed By: #### P REGU #### [facility] [address] [place] [address] Dr. Jaz Barajas CK.MB [Mass/Vol] 0.64 ng/mL Normal <=3.60 [facility] Comment on above: Performed By: #### P REGU #### [facility] [address] [place] [address] Dr. Jaz Barajas HSTROP 5.3 pg/mL Normal 4.0-51.3 [facility] Comment on above: Result Comment: CUT- OFF POINTS HAVE BEEN ESTABLISHED BASED ON THE FOURTH UNIVERSAL DEFINITIONS OF MYOCARDIAL INFARCTION. THE UPPER REFERENCE LIMIT (URL) OF TROPONIN, DEFINED THE 99TH PERCENTILE OF cTnI DISTRIBUTION IN A REFERENCE POPULATION, HAS BEEN CONFIRMED THE DECISION THRESHOLD FOR DE DIAGNOSIS. Performed By: #### P REGU #### [facility] [address] [place] [address] Dr. Jaz Barajas WAI 30 ng/mL Normal 9-82 [facility] Comment on above: Performed By: #### P REGU #### [facility] [address] [place] [address] Dr. Jaz Barajas CBC AUTO DIFFon 01-09-2022 BASO # 0.1 103/ul Normal 0.0-0.1 [facility] Comment on above: Performed By: #### P REGU #### [facility] [address] [place] [address] Dr. Jaz Barajas Basophils/100 WBC (Bld) 0.5 % Normal 0.2-2.0 [facility] Comment on above: Performed By: #### P REGU #### [facility] [address] [place] [address] Dr. Jaz Barajas EO # 0.3 103/ul Normal 0.0-0.7 [facility] Comment on above: Performed By: #### P REGU #### [facility] [address] [place] [address] Dr. Jaz Barajas Eosinophils/100 WBC (Bld) 2.5 % Normal 0.9-7.0 [facility] Comment on above: Performed By: #### P REGU #### [facility] [address] [place] [address] Dr. Jaz Barajas Erythrocyte distribution width (RBC) [Ratio] 12.8 % Normal 11.0-15.0 [facility] Comment on above: Performed By: #### P REGU #### [facility] [address] [place] [address] Dr. Jaz Barajas Hematocrit (Bld) [Volume fraction] 41.0 % Normal 36.0-48.0 [facility] Comment on above: Performed By: #### P REGU #### [facility] [address] [place] [address] Dr. Jaz Barajas Hemoglobin (Bld) [Mass/Vol] 13.6 g/dL Normal 12.0-16.0 [facility] Comment on above: Performed By: #### P REGU #### [facility] [address] [place] [address] Dr. Jaz Barajas IG # 0.03 10e3/ul Normal 0.00-0.03 [facility] Comment on above: Performed By: #### P REGU #### [facility] [address] [place] [address] Dr. Jaz Barajas IG % 0.3 % Normal 0.0-0.5 [facility] Comment on above: Performed By: #### P REGU #### [facility] [address] [place] [address] Dr. Jaz Barajas LYMPH # 2.7 103/ul Normal 1.2-3.8 [facility] Comment on above: Performed By: #### P REGU #### [facility] [address] [place] [address] Dr. Jaz Barajas Lymphocytes/100 WBC (Bld) 25.7 % Normal 20.5-60.0 [facility] Comment on above: Performed By: #### P REGU #### [facility] [address] [place] [address] Dr. Jaz Barajas MANUAL DIFF REQ NO Normal [facility] Comment on above: Performed By: #### P REGU #### [facility] [address] [place] [address] Dr. Jaz Barajas MCH (RBC) [Entitic mass] 27.7 pg Normal 26.7-34.0 [facility] Comment on above: Performed By: #### P REGU #### [facility] [address] [place] [address] Dr. Jaz Barajas MCHC (RBC) [Mass/Vol] 33.2 g/dL Normal 29.9-35.2 [facility] Comment on above: Performed By: #### P REGU #### [facility] [address] [place] [address] Dr. Jaz Barajas MCV (RBC) [Entitic vol] 83.5 fL Normal 81.0-99.0 [facility] Comment on above: Performed By: #### P REGU #### [facility] [address] [place] [address] Dr. Jaz Barajas MONO # 0.8 103/ul Normal 0.3-0.8 [facility] Comment on above: Performed By: #### P REGU #### [facility] [address] [place] [address] Dr. Jaz Barajas Monocytes/100 WBC (Bld) 7.4 % Normal 1.7-12.0 [facility] Comment on above: Performed By: #### P REGU #### [facility] [address] [place] [address] Dr. Jaz Barajas NEUT # 6.6 103/ul Critically high 1.4-6.5 [facility] Comment on above: Performed By: #### P REGU #### [facility] [address] [place] [address] Dr. Jaz Barajas Neutrophils/100 WBC (Bld) 63.6 % Normal 43.0-75.0 [facility] Comment on above: Performed By: #### P REGU #### [facility] [address] [place] [address] Dr. Jaz Barajas Platelet mean volume (Bld) [Entitic vol] 11.5 fL Normal 9.5-13.5 [facility] Comment on above: Performed By: #### P REGU #### [facility] [address] [address] [address] Jaz Barajas PLT 227 103/ul Normal 150-450 [facility] Comment on above: Performed By: #### P REGU #### [facility] [address] [place] [address] Dr. Jaz Barajas RBC 4.91 106/ul Normal 4.20-5.40 [facility] Comment on above: Performed By: #### P REGU #### [facility] [address] [place] [address] Dr. Jaz Barajas WBC 10.4 103/ul Normal 4.0-11.0 [facility] Comment on above: Performed By: #### P REGU #### [facility] [address] [place] [address] Dr. Jaz Barajas CTA CHEST WO W [...] by: JEYSON BLANTON Date: 2022-01-09 09:47 Normal [facility] D-DIMERon 01-09-2022 D-DIMER 0.56 mg/L FEU Critically high 0.19-0.50 [facility] Comment on above: Result Comment: test repeated critical value verified Performed By: #### D DIM, PT, PTT #### [facility] [address] [place] [address] Dr. Jaz Barajas D-DIMER COMMENTS SEE BELOW Normal [facility] Comment on above: Result Comment: Incr [...] By: #### D DIM, PT, PTT #### [facility] [address] [place] [address] Dr. Jaz Barajas ER URINE PROFILEon 2 Bilirubin Ql (U) Negative Normal NEGATIVE [facility] Comment on above: Performed By: #### P ROGLCM #### [facility] [address] [place] [address] Dr. Jaz Barajas Clarity (U) CLEAR Normal CLEAR [facility] Comment on above: Performed By: #### P ROGLCM #### [facility] [address] [place] [address] Dr. Jaz Barajas Color (U) YELLOW Normal YELLOW [facility] Comment on above: Performed By: #### P ROGLCM #### [facility] [address] [place] [address] Dr. Jaz Barajas ERUAHD A micrscopic examina tion will be performed if indicated. Normal [facility] Comment on above: Performed By: #### P ROGLCM #### [facility] [address] [place] [address] Dr. Jaz Barajas Glucose Ql (U) 500 mg/dl Abnormal NEGATIVE [facility] Comment on above: Performed By: #### P ROGLCM #### [facility] [address] [place] [address] Dr. Jaz Barajas Hemoglobin Ql (U) Negative Normal NEGATIVE [facility] Comment on above: Performed By: #### P ROGLCM #### [facility] [address] [address] [address] Jaz Barajas Ketones Ql (U) Negative Normal NEGATIVE [facility] Comment on above: Performed By: #### P ROGLCM #### [facility] [address] [place] [address] Dr. Jaz Barajas LEUKOCYTES Negative Normal NEGATIVE [facility] Comment on above: Performed By: #### P ROGLCM #### [facility] [address] [place] [address] Dr. aJz Barajas Nitrite Ql (U) Negative Normal NEGATIVE [facility] Comment on above: Performed By: #### P ROGLCM #### [facility] [address] [place] [address] Dr. Jaz Barajas pH (U) 6.0 [pH] Normal 5-9 [facility] Comment on above: Performed By: #### P ROGLCM #### [facility] [address] [place] [address] Dr. Jaz Barajas SPEC GRAVITY >=1.030 Abnormal 1.005-<=1.02 5 [facility] Comment on above: Performed By: #### P ROGLCM #### [facility] [address] [place] [address] Dr. Jaz Barajas UA PROTEIN Negative Normal NEGATIVE/ TRACE [facility] Comment on above: Performed By: #### P ROGLCM #### [facility] [address] [place] [address] Dr. Jaz Barajas UR MICRO IND NOT INDICATED Normal [facility] Comment on above: Performed By: #### P ROGLCM #### [facility] [address] [place] [address] Dr. Jaz Barajas Urobilinogen Qn (U) 0.2 {Oxana'U}/dL Normal 0.2 - 1.0 [facility] Comment on above: Performed By: #### P ROGLCM #### [facility] [address] [place] [address] Dr. Jaz Barajas PH VENOUS BLOODon 01-09-2022 PCO2 VENOUS 39.2 mmHg Critically low 40.0-52.0 [facility] Comment on above: Performed By: #### P HVEN #### [facility] [address] [place] [address] Dr. Jaz Barajas pH VENOUS 7.409 Normal 7.330-7.430 [facility] Comment on above: Performed By: #### P HVEN #### [facility] [address] [place] [address] Dr. Jaz Barajas URon 01-09-2022 , QUAL Negative Normal NEGATIVE [facility] Comment on above: Performed By: #### P REGU #### [facility] [address] [place] [address] Dr. Jaz Barajas PROF 14(COMP METB)on 022 Albumin [Mass/Vol] 3.2 g/dL Critically low 3.4-5.0 [facility] Comment on above: Performed By: #### P REGU #### [facility] [address] [place] [address] Dr. Jaz Barajas Albumin/Globulin [Mass ratio] 0.8 {ratio} Normal [facility] Comment on above: Performed By: #### P REGU #### [facility] [address] [place] [address] Dr. Jaz Barajas ALP [Catalytic activity/Vol] 109 U/L Normal 46-116 [facility] Comment on above: Performed By: #### P REGU #### [facility] [address] [place] [address] Dr. Jaz Barajas ALT [Catalytic activity/Vol] 95 U/L Critically high 14-59 [facility] Comment on above: Performed By: #### P REGU #### [facility] [address] [place] [address] Dr. Jaz Barajas Anion gap [Moles/Vol] 11.7 mmol/L Normal [facility] Comment on above: Performed By: #### P REGU #### [facility] [address] [place] [address] Dr. Jaz Barajas AST [Catalytic activity/Vol] 44 U/L Critically high 15-37 [facility] Comment on above: Performed By: #### P REGU #### [facility] [address] [address] [address] Jaz Barajas Bilirubin [Mass/Vol] 0.3 mg/dL Normal 0.2-1.0 [facility] Comment on above: Performed By: #### P REGU #### [facility] [address] [place] [address] Dr. Jaz Barajas Calcium [Mass/Vol] 8.8 mg/dL Normal 8.5-10.1 [facility] Comment on above: Performed By: #### P REGU #### [facility] [address] [place] [address] Dr. Jaz Barajas Chloride [Moles/Vol] 102 mmol/L Normal 98-107 [facility] Comment on above: Performed By: #### P REGU #### [facility] [address] [place] [address] Dr. Jaz Barajas CO2 [Moles/Vol] 25.3 mmol/L Normal 21.0-32.0 [facility] Comment on above: Performed By: #### P REGU #### [facility] [address] [place] [address] Dr. Jaz Barajas Creatinine [Mass/Vol] 0.86 mg/dL Normal 0.55-1.02 [facility] Comment on above: Performed By: #### P REGU #### [facility] [address] [place] [address] Dr. Jaz Barajas EGFR-AF NAMIBIAN >60 Normal >=60 [facility] Comment on above: Performed By: #### P REGU #### [facility] [address] [place] [address] Dr. Jaz Barajas EGFR-NON AF NAMIBIAN >60 Normal >=60 [facility] Comment on above: Performed By: #### P REGU #### [facility] [address] [place] [address] Dr. Jaz Barajas Globulin (S) [Mass/Vol] 3.9 g/dL Normal [facility] Comment on above: Performed By: #### P REGU #### [facility] [address] [address] [address] Jaz Barajas Glucose [Mass/Vol] 230 mg/dL Critically high 74-106 [facility] Comment on above: Performed By: #### P REGU #### [facility] [address] [address] [address] Jaz Barajas Potassium [Moles/Vol] 4.0 mmol/L Normal 3.5-5.1 [facility] Comment on above: Performed By: #### P REGU #### [facility] [address] [address] [address] Jaz Barajas Protein [Mass/Vol] 7.1 g/dL Normal 6.4-8.2 [facility] Comment on above: Performed By: #### P REGU #### [facility] [address] [address] [address] Jaz Barajas Sodium [Moles/Vol] 135 mmol/L Critically low 136-145 Th [facility] Comment on above: Performed By: #### P REGU #### [facility] [address] [address] [address] Jaz Barajas Urea nitrogen [Mass/Vol] 15.0 mg/dL Normal 7.0-18.0 [facility] Comment on above: Performed By: #### P REGU #### [facility] [address] [address] [address] Jaz Barajas Urea nitrogen/Creatinin e [Mass ratio] 17.4 mg/mg Normal [facility] Comment on above: Performed By: #### P REGU #### [facility] [facility] [address] [address] [address] Jaz Barajas PROTIMEon 01-09-2022 INR Coag (PPP) [Relative time] 0.96 {INR} Normal [facility] Comment on above: Performed By: #### D DIM, PT, PTT #### [facility] [address] [address] [address] Jaz Barajas INR GUIDELINES SEE BELOW Normal [facility] Comment on above: Result Comment: [facility] RED INR: 2.0 - 3.0 CONDITIONS NOT LISTED BELOW 2.5 - 3.5 FOR PROSTHETIC HEART VALVE REPLACEMENT 2.5 - 3.5 RECURRENT THROMBOSIS Performed By: #### D DIM, PT, PTT #### [facility] [address] [place] [address] Dr. Jaz Barajas PT Coag (PPP) [Time] 10.4 s Normal 9.0-11.6 [facility] Comment on above: Performed By: #### D DIM, PT, PTT #### [facility] [address] [place] [address] Dr. Jaz Barajas PTTon 01-09-2022 aPTT Coag (Bld) [Time] 28.8 s Normal 22.3-36.2 [facility] Comment on above: Performed By: #### D DIM, PT, PTT #### [facility] [address] [place] [address] Dr. Jaz Barajas TROPONIN, HIGH SENSITIVITYon 01-09-2022 HSTROP 4.5 pg/mL Normal 4.0-51.3 [facility] Comment on above: Result Comment: CUT- OFF POINTS HAVE BEEN ESTABLISHED BASED ON THE FOURTH UNIVERSAL DEFINITIONS OF MYOCARDIAL INFARCTION. THE UPPER REFERENCE LIMIT (URL) OF TROPONIN, DEFINED THE 99TH PERCENTILE OF cTnI DISTRIBUTION IN A REFERENCE POPULATION, HAS BEEN CONFIRMED THE DECISION THRESHOLD FOR DE DIAGNOSIS. Performed By: #### P ROGLCM #### [facility] [address] [place] [address] Dr. Jaz Barajas TSHon 01-09-2022 TSH 2.769 uIU/mL Normal 0.358-3.740 [facility] Comment on above: Performed By: #### P REGU #### [facility] [address] [place] [address] Dr. Jaz Barajas TSH RANGE SEE BELOW Normal [facility] Comment on above: Result Comment: <0.3 4 UIU/ml HYPERTHYROID 0.34-5.60 UIU/ml EUTHYROID >5.60 UIU/ml HYPOTHYROID Performed By: #### P REGU #### [facility] [address] [place] [address] Dr. Jaz Barajas XR CHEST 1 Von [...] JOSE EDUARDO RIVERS Date: 2022-01-09 08:29 Normal [facility] Vital Signs Date Time Vital Sign Value Performing Clinician Howard girard 11-27-2023 12:54-0400 Body temperature 97.88 [degF] Riky Le [facility] 11-27-2023 12:54-0400 Diastolic blood pressure 86 mm[Hg] Riky Le [facility] 11-27-2023 12:54-0400 Heart rate 78 /min Riky Le [facility] 11-27-2023 12:54-0400 Respiratory rate 20 /min Riky Le [facility] 11-27-2023 12:54-0400 SaO2% (BldA) [Mass fraction] 98 % Riky Le [facility] 11-27-2023 12:54-0400 Systolic blood pressure 133 mm[Hg] Riky Le [facility] Encounters Encounter Date Encounter Type Care Provider Facility Start: 12-25-2023 End: 12-25-2023 ambulatory ARIANE WELLS Not Available Start: 11-27-2023 End: 11-27-2023 Emergency department patient visit Riky Le Facility:[facility] Start: 11-27-2023 End: 11-27-2023 Emergency department patient visit Riky Le [facility] Start: 12-14-2022 End: 12-15-2022 ambulatory FORREST STEELEMJShell Facility:[facility] Start: 12-11-2022 End: 12-12-2022 ambulatory EMPLOYMENT MANAGER ARIANE AICBrendaMJZ Facility:[facility] Start: 11-15-2022 End: 11-15-[address] SKY DAVIS . Facility:[facility] Start: 11-10-2022 End: 11-10-[address] QUANG LANDA . Facility:[facility] Start: 08-18-2022 End: 08-18-2022 ambulatory GABINO CARROLL . Facility:[facility] Start: 07-09-2022 End: 07-09-[address] SKY DAVIS . Facility:[facility] Start: 05-14-2022 End: 05-14-2022 ambulatory FORREST WHITFIELD CORETTABrendaISABELLA Facility:[facility] Start: 05-13-2022 Encounter for preprocedural laboratory examination DR ROSA APONTE [facility] Start: 05-08-2022 End: 05-09-[address] ROSA APONTE Facility:[facility] Start: 05-08-2022 End: 05-09-2022 Encounter for preprocedural laboratory examination DR ROSA APONTE Facility:[facility] Start: 04-18-2022 End: 04-18-2022 ambulatory FORREST WHITFIELD CORETTABrendaMJShell Facility:[facility] Start: 04-01-2022 End: 04-02-2022 ambulatory EMPLOYMENT MANAGER ARIANE CORETTABrendaISABELLA Facility:[facility] Start: 02-06-2022 End: 02-07-2022 ambulatory EMPLOYMENT MANAGER ARIANE CORETTABrendaISABELLA Facility:[facility] Start: 01-31-2022 End: 02-01-2022 ambulatory AMINATA BOURGEOIS Facility:[facility] Start: 01-24-2022 ambulatory EMPLOYMENT MANAGER ARIANE CEDRICMJShell Facil ity:[facility] Start: 01-09-2022 End: 01-09-2022 ambulatory GABINO CARROLL . Facility:[facility] Procedures Date Procedure Procedure Detail Performing Clinician Start: 12-04-2016 Colonoscopy Riky Le Comment on above: normal Start: 11-11-2016 Nuclear medicine imaging procedure Riky Le Comment on above: HIDA scan- normal Start: 10-30-2016 Esophagogastroduodenoscopy Riky Le Comment on above: esophagitis Start: 05-27-2016 Polysomnography Riky Le Comment on above: CPAP @ 13cm H2O, small quattro, ramp yaquelin e 20 minutes Start: 09-01-1992 Tonsillectomy Riky Le History of ankle surgery Kt Le Tympanic ventilation tube (physical object) Riky Le Tympanic ventilation tube (physical object) Riky Le Payers Date Payer Category Payer Medicaid [id number] 2022 Medicaid [id number] 1990 Unknown [id number] 2.16.84 [id number] 1988 Unknown [id number] 2.16.84 0.1.185673.3.579.2.593 1988 Unknown [id number] 2.16.84 0.1.561060.3.579.2.593 1988 Unknown [id number] 2.16.84 0.1.918978.3.579.2.593 1988 Unknown [id number] 2.16.84 0.1.172996.3.579.2.593 1988 Unknown [id number] 2.16.84 0.1.958178.3.579.2.593 1988 Unknown [id number] 2.16.84 0.1.365457.3.579.2.593 1988 Unknown [id number] 2.16.84 0.1.164931.3.579.2.593 1988 Unknown [id number] 2.16.84 0.1.044426.3.579.2.593 1988 Unknown [id number] 2.16.84 0.1.685654.3.579.2.593 1988 Unknown [id number] 2.16.84 0.1.104646.3.579.2.593 1988 Unknown [id number] 2.16.84 0.1.551936.3.579.2.593 1988 Unknown [id number] 2.16.84 0.1.669248.3.579.2.593 1988 Unknown [id number] 2.16.8 40.1.713811.3.579.2.727 1988 Unknown [id number] 2.16.84 0.1.364442.3.579.2.1259 1959 Unknown [id number] 1959 Unknown [id number] Social History Date Type Detail Facility Start: 02-20-2022 Tobacco smoking status Heavy t obacco smoker (finding) [facility] [place] Tobacco smoking status Never [facility] [place] Sex Assigned At Female [facility] Functional Status Date Assessment Result Facility 11-27-2023 Functional Status N/A [facility] Hospital Discharge instructions 11-27-2023 Note Date & Type Note Facility 11-27-2023 Hospital Discharg e instructions Patient Education 11/27/2023 15:37:23 Shoulder Pain Shoulder Pain Many things can cause shoulder pain, including: An injury to the shoulder. Overuse of the shoulder. Arthritis. The source of the pain can be: Inflammation. An injury to the shoulder joint. An injury to a tendon, ligament, or bone. Follow these instructions at home: Pay attention to changes in your symptoms. Let your health care provider know about them. Follow these instructions to relieve your pain. If you have a sling: Wear the sling as told by your health care provider. Remove it only as told by your health care provider. Loosen the sling if your fingers tingle, become numb, or turn cold and blue. Keep the sling clean. If the sling is not waterproof: ?Do not let it get wet. Remove it to shower or bathe. Move your arm as little as possible, but keep your hand moving to prevent swelling. Managing pain, stiffness, and swelling If directed, put ice on the painful area: ?Put ice in a plastic bag. ?Place a towel between your skin and the bag. ?Leave the ice on for 20 minutes, 2 3 times per day. Stop applying ice if it does not help with the pain. Squeeze a soft ball or a foam pad as much as possible. This helps to keep the shoulder from swelling. It also helps to strengthen the arm. General instructions Take [id number]-xvpmzrl and prescription medicines only as told by your health care provider. Keep all follow-up visits as told by your health care provider. This is important. Contact a health care provider if: Your pain gets worse. Your pain is not relieved with medicines. New pain develops in your arm, hand, or fingers. Get help right away if: Your arm, hand, or fingers: ?Tingle. ?Become numb. ?Become swollen. ?Become painful. ?Turn white or blue. Summary Shoulder pain can be caused by an injury, overuse, or arthritis. Pay attention to changes in your symptoms. Let your health care provider know about them. This condition may be treated with a sling, ice, and pain medicines. Contact your health care provider if the pain gets worse or new pain develops. Get help right away if your arm, hand, or fingers tingle or become numb, swollen, or painful. Keep all follow-up visits as told by your health care provider. This is important. This information is not intended to replace advice given to you by your health care provider. Make sure you discuss any questions you have with your health care provider. Document Revised: 05/03/2022 Document Reviewed: 05/03/2022 [employer] Patient Education 2022 [employer]. Follow Up Care 11/27/2023 12:54:30 With:Georgi Pfeiffer Address: [address] [place] [address]- Business (1) When:11/30/2023 15:21:31 [facility] Evaluation + Plan note 11-27-2023 Note Date & Type Note Facility 11-27-2023 Evaluation + Plan note Extrac gerard from: Title:ED Note Author:Steven aCrdenas PA-C te:11/27/23 Pain in shoulder (M25.519: P ain in unspecified shoulder) Orders: methocarbamol, 1,500 mg = 2 tab(s), Oral, TID, X 3 day(s), # 18 tab(s), Refills(s) 0, Pharmacy: [facility], 160, cm, 11/27/23 12:59:00 EDT, Height/Length Dosing, 114.1, kg, 11/27/23 12:59:00 EDT, Weight Dosing naproxen, 500 mg = 1 tab(s), Oral, BID, PRN for pain, # 20 tab(s), Refills(s) 0, Pharmacy: [facility], 160, cm, 11/27/23 12:59:00 EDT, Height/Length Dosing, 114.1, kg, 11/27/23 12:59:00 EDT, Weight Dosing XR Shoulder Complete Right [facility] Clinical Note 12-16-2022 Note Date & [...] authenticated by: HAYDE VAN Date: 2022-12-16 07:21 [facility] Clinical Note 12-16-2022 Note Date & [...] by: HAYDE VAN Date: 2022-12-16 07:17 [facility] Clinical Note 05-14-2022 Note Date & Type [...] the recovery room in good condition. [facility] Hospital course Narrative Note Date & Type Note Facility Hospital course Narrative No data available for this section [facility] Progress note Note Date & Type Note Facility Progress note No data available for this section [facility] Summary Purpose Family History No Family History Records Found No data available for this section No Family History Records FoundNo Family History Records Found Advance Directives No Advanced Directives Records FoundNo Advanced Directives Records FoundNo Advanced Directives Records Found Additional Source Comments INFORMATION SOURCE (unrecogn ized section and content) DATE CREATED AUTHOR 12/19/2022 [facility] DATE CREATED AUTHOR AUTHOR'S ORGANIZ ATION 11/29/2023 [facility] DATE CREATED AUTHOR AUTHOR'S ORGANIZ ATION 12/27/2023 [facility] Patient Care team shaila n (unrecognized section and content) Personnel Name: BLAS FORRESTARIANE Address: Address: [address] [place] [address] FOR RECORDS PERTAINING TO PATIENTS WHO ARE [...] BE BASED ON THE PRIMARY CLINICAL RECORDS. [facility] [employer] provides no warranty or guarantee of the accuracy or completeness of information in this document.
[2024-01-07 10:59] LABS: Basophils Absolute Auto 0.1 10^3/uL (0.0-0.1); Basophils Percent Auto 0.6 % (0.2-2.0); Eosinophils Absolute Auto 0.2 10^3/uL (0.0-0.7); Eosinophils Percent Auto 1.9 % (0.9-7.0); Hematocrit 40.4 % (36.0-48.0); Hemoglobin 13.2 g/dL (12.0-16.0); Immature Granulocytes Abs Auto 0.02 10^3/uL (0.00-0.03); Immature Granulocytes Pct Auto 0.2 % (0.0-0.5); Lymphocytes Absolute Auto 3.2 10^3/uL (1.2-3.8); Lymphocytes Percent Auto 38.5 % (20.5-60.0); Mean Corpuscular HGB Conc 32.7 g/dL (29.9-35.2); Mean Corpuscular Hemoglobin 26.8 pg (26.7-34.0); Mean Corpuscular Volume 81.9 fL (81.0-99.0); Mean Platelet Volume 11.3 fL (9.5-13.5); Monocytes Absolute Auto 0.7 10^3/uL (0.3-0.8); Monocytes Percent Auto 8.3 % (1.7-12.0); Neutrophils Absolute Auto 4.2 10^3/uL (1.4-6.5); Neutrophils Percent Auto 50.5 % (43.0-75.0); Platelet Count 276 10^3/uL (150-450); Red Blood Count 4.93 10^6/uL (4.20-5.40); Red Cell Distribution Width 13.1 % (11.0-15.0); White Blood Count 8.4 10^3/uL (4.0-11.0)
[2024-01-07 11:24] LABS: Microalbum Creatinine Ratio Ur 12.2 mg/g (0.0-29.9); Microalbumin Urine Random <1.3 mg/dL (<=30.0)
[2024-01-07 11:28] LABS: Alanine Aminotransferase 52 U/L (14-59); Albumin Globulin Ratio 0.9; Albumin Level 3.4 g/dL (3.4-5.0); Alkaline Phosphatase 93 U/L (46-116); Anion Gap 12.5; Aspartate Amino Transferase 23 U/L (15-37); BUN Creatinine Ratio 15.9; Bilirubin Total 0.4 mg/dL (0.2-1.0); Calcium 8.9 mg/dL (8.5-10.1); Carbon Dioxide 25.7 mmol/L (21.0-32.0); Chloride 105 mmol/L (98-107); Chol HDL Ratio 3.8; Cholesterol 127 mg/dL (<=200); Estimated GFR (African America >60 (>=60); Estimated GFR (Non-African Ame >60 (>=60); Glucose 113 mg/dL (74-106); HDL Cholesterol 33 mg/dL (40-60); Potassium 4.2 mmol/L (3.5-5.1); Sodium 139 mmol/L (136-145); Thyroid Stimulating Hormone 3.678 uIU/mL (0.358-3.740); Total Protein 7.4 g/dL (6.4-8.2); Triglycerides 36 mg/dL (<=150); VLDL CHOLESTEROL 7.2 mg/dL
[2024-01-07 11:40] LABS: Estimated Average Glucose 226 mg/dL; Glycohemoglobin A1C 9.5 % (4.5-6.2)
[2024-01-07 14:29] LABS: Bilirubin Urine NEGATIVE (NEGATIVE); Blood Urine NEGATIVE (NEGATIVE); Clarity Urine CLEAR (CLEAR); Color Urine YELLOW (YELLOW); Glucose Urine UA NEGATIVE (NEGATIVE); Ketones Urine NEGATIVE (NEGATIVE); Leukocyte Esterase Urine NEGATIVE (NEGATIVE); Nitrite Urine NEGATIVE (NEGATIVE); Protein Urine NEGATIVE (NEG/TRACE); Urobilinogen Urine 0.2 EU/dL (0.2-1.0); pH Urine 7.5 (5.0-9.0)
[2024-01-07 14:32] LABS: Urine Microscopic Indicated NO
== END 2024-01-07 10:19 | disposition home or self-care (01) ==
LOC: LAB 10:20
PROVIDERS: PCP Nurse Practitioner; Visit Provider Nurse Practitioner
DX: E55.9 Vitamin D deficiency, unspecified (principal); E11.9 Type 2 diabetes mellitus without complications; Z79.4 Long term (current) use of insulin; E66.01 Morbid (severe) obesity due to excess calories; Z68.41 Body mass index [BMI] 40.0-44.9, adult
CPT/HCPCS: 36415; 80053; 80061; 81003; 82043; 82306; 82570; 83036; 84443; 85025

== ENCOUNTER 2024-01-17 14:57 | Emergency (ER) | payer MEDICAID, SELFPAY ==
[2024-01-17 15:00] VITALS: BP 138/68; PULSE 68; TEMP 36.8; O2SAT 100; BMI 44.3
--- OUTSIDE RECORDS SUMMARY | 2024-01-17 15:04 | XMS_ITS | CCD ---
Author Organization [facility] Care Team Providers Care Bumper Machine Operator Name Role Phone AICHHOLZ, FOREST ECOLOGY PROFESSOR ARIANE Attending Unavailable AICHHOLZ, FOREST ECOLOGY PROFESSOR ARIANE Admitting Unavailable AICHHOLZ, FOREST ECOLOGY PROFESSOR ARIANE Primary Care Unavailable JOSE EDUARDO RIVERS V Consulting Unavailable AICHHOLZ, FOREST ECOLOGY PROFESSOR ARIANE Consulting Unavailable TIMMIS, DR MEJIA Consulting Unavailable AICHHOLZ, FOREST ECOLOGY PROFESSOR ARIANE Primary Care Unavailable TIMMIS, DR MEJIA Attending Unavailable TIMMIS, DR MEJIA Admitting Unavailable BRIGGS, MAGDI Consulting Unavailable PAY ., DR SWANSON Admitting Unavailable PAY ., DR SWANSON Consulting Unavailable AICHHOLZ, FOREST ECOLOGY PROFESSOR ARIANE Primary Care Unavailable PAY ., DR SWANSON Attending Unavailable AICHHOLZ, FOREST ECOLOGY PROFESSOR ARIANE Primary Care Unavailable REINECK, DR KLAUDIA Kay Attending Unavailabl e KAITLIN, DR KLAUDIA Kay Admitting Unavailabl e KAITLIN, DR KLAUDIA Kay Consulting Unavailabl e JEYSON BLANTON Consulting Unavailable AICHHOLZ, FOREST ECOLOGY PROFESSOR ARIANE Primary Care Unavailable GABINO MUÑOZ Attending Unavailable GLEN .GABINO Admitting Unavailable AICHHOLZ, FOREST ECOLOGY PROFESSOR ARIANE Primary Care Unavailable JOSE EDUARDO RIVERS V Consulting Unavailable JEYSON BLANTON Consulting Unavailable GABINO MUÑOZ Consulting Unavailable PAY ., DR SWANSON Admitting Unavailable PAY ., DR SWANSON Consulting Unavailable AICHHOLZ, FOREST ECOLOGY PROFESSOR ARIANE Primary Care Unavailable PAY ., DR SWANSON Attending Unavailable GERALDINE LAZAR Consulting Unavailable CORDELL ., DR DEL RIO Attending Unavailable CORDELL ., DR DEL RIO Admitting Unavailable AICHHOLZ, FOREST ECOLOGY PROFESSOR ARIANE Primary Care Unavailable HAY ., DR DEL RIO Consulting Unavailable GABINO MUÑOZ Attending Unavailable GLEN ., GABINO Admitting Unavailable AICHHOLZ, FOREST ECOLOGY PROFESSOR ARIANE Primary Care Unavailable DONTRELL DIAZ Consulting Unavailable GLEN Mckinnon, GABINO Consulting Unavailable JOSE EDUARDO RHODES Consulting Unavailable AICHHOLZ, FOREST ECOLOGY PROFESSOR ARIANE Referring Unavailable AICHHOLZ, FOREST ECOLOGY PROFESSOR ARIANE Primary Care Unavailable ROYA MIRZAD Attending Unavailable YUKI, AHMAD Admitting Unavailable YUKI, AHMAD Consulting Unavailable AICHHOLZ, FOREST ECOLOGY PROFESSOR ARIANE Consulting Unavailable AICHHOLZ, FOREST ECOLOGY PROFESSOR ARIANE Attending Unavailable AICHHOLZ, FOREST ECOLOGY PROFESSOR ARIANE Admitting Unavailable AICHHOLZ, FOREST ECOLOGY PROFESSOR ARIANE Primary Care Unavailable HAYDE VAN Consulting Unavailable AICHHOLZ, FOREST ECOLOGY PROFESSOR ARIANE Consulting Unavailable AICHHOLZ, FOREST ECOLOGY PROFESSOR ARIANE Attending Unavailable AICHHOLZ, FOREST ECOLOGY PROFESSOR ARIANE Admitting Unavailable AICHHOLZ, FOREST ECOLOGY PROFESSOR ARIANE Primary Care Unavailable AMINATA BOURGEOIS Attending Unavailable AMINATA BOURGEOIS Admitting Unavailable JEYSON BLANTON Consulting Unavailable AICHHOLZ, FOREST ECOLOGY PROFESSOR ARIANE Primary Care Unavailable AMINATA BOURGEOIS Consulting Unavailable AICHHOLZ, FOREST ECOLOGY PROFESSOR ARIANE Primary Care Unavailable FADI, DR MEJIA Consulting Unavailable FADI, DR MEJIA Attending Unavailable DR ROSA APONTE Admitting Unavailable ELIDA COWAN Consulting Unava ilable BLAS, ARIANE J Primary Care Physician Riky Le Attending Unavailable AICHHOLZ, ARIANE Attending Unavailable Allergies Allergy Classification Reported Allergen(s) Allergy Type Date of Onset Reaction(s) Facility (2 sources) predniSONE; Translations: [predniSONE] Drug Allergy 0 [facility] Repository (1 source) predniSONE; Translations: [prednisone] Drug Allergy 0 Slurred speech (finding), Tremor (finding) [facility] [place] Medications Current Medications Medication Drug Class(es) Dates [...] pain, # 20 tab(s), Refills(s) 0, Pharmacy: [facility] 1155, 160, cm, 11/27/23 12:59:00 EDT, Height/Length [...] 11-30-2019 Episodic Other aftercare (1 source) Other detention (current) drug therapy; Translations: [OTH REGIONAL PSYCHIATRIC DIRECTOR 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 THERAPY] Onset: 11-19-2022 Episodic Other aftercare (1 source) jail (current) use of oral hypoglycemic drugs; Translations: [REGIONAL PSYCHIATRIC DIRECTOR USE ORAL 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 DX] Onset: 11-19-2022 Episodic Other aftercare (1 source) jail (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; Translations: [GROUP HOME CURRENT USE OF INSULIN] Onset: 11-11-2022 [...] Interpretation Reference Range Facility [facility] 11-28-2023 Forms [id number]#1.00TIFF [facility] [place] Consent for Treatmenton 10-31 Consent for Treatment [id number]#1.00TIFF [facility] [place] Discharge Instructionson Discharge Instructions [id number]#1.00TIFF Normal [place] ED Clinical Summaryon 2023 ED Clinical Summary [place] [id number] ED Clinical Summary Person Information Name: MARILIA OSBORNE [facility] Age: 33 Years : 1990 Sex: Female Language: Kittitian PCP: ARIANE WELLS CNP Marital Status: Visit [...] 11/27/2023 15:37:23 11/27/2023 15:37:23 11/27/2023 15:37:23 ADDRESS: [address] [place] [id number] PHYS DOC NOTES: MEDICAL INFORMATION: Prescriptions Given: [facility], [address] [place], [place] [id number], [phone] methocarbamol (Robaxin-750 oral tablet) 2 Tablets By [...] up: With: Address: When: [place] [address] Business (1) In 3 days 11/30/2023 DIAGNOSIS: Pain in shoulder [facility] [place] ED Note-Physicianon 11-27-19 ED Note-Physician Basic Information [...] Pfeiffer In 3 days 11/30/2023 [address]T [address] [place] [address] Business (1) Additional Instructions: Patient Education Shoulder [...] made to ensure accuracy, however, inadvertently computerized manager supplier mistakes may be present. Appropriate healthcare PPE [...] (Concentrated) Roma (more content not included)... [facility] [place] Comment on above: Result Comment: Elec tronically [...] strengthen the arm. General instructions ? Take bgms-liz-fximrwm and prescription medicines only as told by [...] provider. Document Revised: 05/03/2022 Document Reviewed: 05/03/2022 [employer] Patient Education ? 2022 [employer] Normal [place] ED Patient Summaryon 024 ED Patient Summary (Inserted Image. Isadora ble to display) [place] [id number] Patient Discharge Instructions Person Information Name: MARILIA OSBORNE Age: 33 Years Arrival Date: 11/27/2023 12:52:48 Discharge Diagnosis: Pain in shoulder Primary Care Physician: ARIANE WELLS CNP Provider Information Primary Provider: Riky Le DO Advanced Amusement Ride Operator:Steven Cardenas PA-C The exam and treatment you received in the Emergency Department were for an urgent problem and are not intended as complete care. It is important that you follow up with a doctor, nurse practitioner, or physician?s student assistant for ongoing care. If your symptoms [...] Address: When: Georgi Pfeiffer [address] [place] [address] Business (1) In 3 days 11/30/2023 In the event that this physician does not participate in your insurance network, please consult with your insurance company to find a nearby participating provider. Patient Education Materials: Shoulder Pain A MESSAGE TO ALL PATIENTS REGARDING OPIOIDS PRESCRIPTION OPIOIDS: WHAT YOU NEED TO KNOW Prescription opioids can be used to help relieve begbpobh-qc-dasqqv pain and are often prescribed following a [...] be struggling with addiction, tell your health resident care aide and ask for guidance or call [facility] National Helpline at 0-929-906-FRLB. v Source: Department of a (more content not included)... [facility] [place] [facility] 11-27-2023 Forms [id number]#1.00TIFF [facility] XR Shoulder Complete [place] 11-27-2023 XR [...] findings of concern identified. Ordering Provider: Theresa, Maxwell FINAL REPORT Dictated: 11/27/2023 3:07 pm Naresh Crow MD Signed (Electronic Signature): 11/27/2023 3:07 pm Signed by: Naresh Crow MD Transcribed by: MARTA Technologist: EDGAR Technical Comments Radiation Dose: Ka,r in mGy = na DAP = na [facility] [place] CBC AUTO DIFFon 12-11-2022 BASO # 0.1 103/ul Normal 0.0-0.1 [facility] Comment on above: Performed By: #### P REGU #### [facility] [address] [place] [address] Dr. Jaz Barajas Basophils/100 WBC (Bld) 0.8 % Normal 0.2-2.0 [facility] Comment on above: Performed By: #### P REGU #### [facility] [address] [place] [address] Dr. Jaz Barajas EO # 0.2 103/ul Normal 0.0-0.7 [facility] Comment on above: Performed By: #### P REGU #### [facility] [address] [place] [address] Dr. Jaz Barajas Eosinophils/100 WBC (Bld) 2.1 % Normal 0.9-7.0 [facility] Comment on above: Performed By: #### P REGU #### [facility] [address] [place] [address] Dr. Jaz Barajas Erythrocyte distribution width (RBC) [Ratio] 13.0 % Normal 11.0-15.0 [facility] Comment on above: Performed By: #### P REGU #### [facility] [address] [place] [address] Dr. Jaz Barajas Hematocrit (Bld) [Volume fraction] 41.2 % Normal 36.0-48.0 [facility] Comment on above: Performed By: #### P REGU #### [facility] [address] [place] [address] Dr. Jaz Barajas Hemoglobin (Bld) [Mass/Vol] 13.7 g/dL Normal 12.0-16.0 [facility] Comment on above: Performed By: #### P REGU #### [facility] [address] [place] [address] [address] Jaz Barajas IG # 0.02 10e3/ul Normal 0.00-0.03 [facility] Comment on above: Performed By: #### P REGU #### [facility] [address] [place] [address] Dr. Jaz Barajas IG % 0.2 % Normal 0.0-0.5 [facility] Comment on above: Performed By: #### P REGU #### [facility] [address] [place] [address] Dr. Jaz Barajas LYMPH # 3.3 103/ul Normal 1.2-3.8 [facility] Comment on above: Performed By: #### P REGU #### [facility] [address] [place] [address] Dr. Jaz Barajas Lymphocytes/100 WBC (Bld) 34.8 % Normal 20.5-60.0 [facility] Comment on above: Performed By: #### P REGU #### [facility] [address] [place] [address] Dr. Jaz Barajas MANUAL DIFF REQ NO Normal [facility] Comment on above: Performed By: #### P REGU #### [facility] [address] [place] [address] Dr. Jaz Barajas MCH (RBC) [Entitic mass] 26.6 pg Critically low 26.7-34.0 [facility] Comment on above: Performed By: #### P REGU #### [facility] [address] [place] [address] Dr. Jaz Barajas MCHC (RBC) [Mass/Vol] 33.3 g/dL Normal 29.9-35.2 [facility] Comment on above: Performed By: #### P REGU #### [facility] [address] [place] [address] Dr. Jaz Barajas MCV (RBC) [Entitic vol] 79.8 fL Critically low 81.0-99.0 [facility] Comment on above: Performed By: #### P REGU #### [facility] [address] [place] [address] [address] Jaz Barajas MONO # 0.7 103/ul Normal 0.3-0.8 [facility] Comment on above: Performed By: #### P REGU #### [facility] [address] [place] [address] [address] Jaz Barajas Monocytes/100 WBC (Bld) 7.3 % Normal 1.7-12.0 [facility] Comment on above: Performed By: #### P REGU #### [facility] [address] [place] [address] [address] Jaz aBrajas NEUT # 5.3 103/ul Normal 1.4-6.5 [facility] Comment on above: Performed By: #### P REGU #### [facility] [address] [place] [address] Dr. Jaz Barajas Neutrophils/100 WBC (Bld) 54.8 % Normal 43.0-75.0 [facility] Comment on above: Performed By: #### P REGU #### [facility] [address] [place] [address] Dr. Jaz Barajas Platelet mean volume (Bld) [Entitic vol] 10.7 fL Normal 9.5-13.5 [facility] Comment on above: Performed By: #### P REGU #### [facility] [address] [place] [address] Dr. Jaz Barajas PLT 284 103/ul Normal 150-450 [facility] Comment on above: Performed By: #### P REGU #### [facility] [address] [place] [address] Dr. Jaz Barajas RBC 5.16 106/ul Normal 4.20-5.40 [facility] Comment on above: Performed By: #### P REGU #### [facility] [address] [place] [address] Dr. Jaz Barajas WBC 9.6 103/ul Normal 4.0-11.0 [facility] Comment on above: Performed By: #### P REGU #### [facility] [address] [place] [address] [address] Jaz Barajas FREE T4on 12-11-2022 Free T4 [Mass/Vol] 1.10 ng/dL Normal 0.76-1.46 [facility] Comment on above: Performed By: #### P ROGLCM #### [facility] [address] [place] [address] [address] Jaz Barajas LIPID PROFILEon 12-11-2022 CHOL-HDL RATIO NORM SEE BELOW Normal [facility] Comment on above: Result Comment: 3.3 - 4.4 LOW RISK 4.4 - 7.1 AVERAGE RISK 7.1 - 11.0 MODERATE RISK >11.0 HIGH RISK Performed By: #### L IPID, TSH, CMP ####[facility] [address] [place] [address]Dr. Jaz Barajas Cholesterol [Mass/Vol] 168 mg/dL Normal <=200 [facility] Comment on above: Performed By: #### L IPID, TSH, CMP ####[facility] [address] [place] [address]Dr. Jaz Barajas Cholesterol in HDL [Mass/Vol] 32 mg/dL Critically low 40-60 [facility] Comment on above: Performed By: #### L IPID, TSH, CMP ####[facility] [address] [place] [address]Dr. Jaz Barajas Cholesterol in LDL [Mass/Vol] 121.8 mg/dL Normal [facility] Comment on above: Performed By: #### L IPID, TSH, CMP ####[facility] [address] [place] [address]Dr. Jaz Barajas Cholesterol.total/ Cholesterol in HDL [Mass ratio] 5.3 {ratio} Normal [facility] Comment on above: Performed By: #### L IPID, TSH, CMP ####[facility] R[address]ub[address] [place] [address]Dr. Hannahlan Barajas HDL NORMAL > or = 60 mg/dl - LO W CARDIOVASCULAR RISK <40 mg/dl - HIGH CARDIOVASCULAR RISK Normal [facility] Comment on above: Performed By: #### L IPID, TSH, CMP ####[facility] Ur[address]uvkw[address] [place] [address]Dr. Jaz Barajas LDL CALC NORMAL SEE BELOW Normal [facility] Comment on above: Result Comment: <100 mg/dl OPTIMAL 100 - 129 mg/dl NEAR OR ABOVE OPTIMAL 130 - 159 mg/dl BORDERLINE HIGH 160 - 189 mg/dl HIGH >190 mg/dl VERY HIGH Performed By: #### L IPID, TSH, CMP ####[facility] [address]cunva[address] [place] [address]Dr. Jaz Barajas Triglyceride [Mass/Vol] 71 mg/dL Normal <=150 [facility] Comment on above: Performed By: #### L IPID, TSH, CMP ####[facility] Cqvwigbuvc[address] [place] [address]Dr. Jaz Barajas VLDL CALC 14.2 mg/dL Normal [facility] Comment on above: Performed By: #### L IPID, TSH, CMP ####[facility] [address]vrgsh[address]pi[address] [place] [address]Dr. Jaz Barajas MICROALBUMIN, RAND URon 11-30 mALB <1.3 Normal <=30.0 [facility] Comment on above: Performed By: #### P REGU #### [facility] [address] [place] [address] [address] Jaz Barajas PROF 14(COMP METB)on 023 Albumin [Mass/Vol] 3.7 g/dL Normal 3.4-5.0 [facility] Comment on above: Performed By: #### L IPID, TSH, CMP ####[facility] Jsdwhvmxnx3[address] [place] [address]Dr. Jaz Barajas Albumin/Globulin [Mass ratio] 0.8 {ratio} Normal [facility] Comment on above: Performed By: #### L IPID, TSH, CMP ####[facility] Yprfdpqlcc[address] [place] [address]Dr. Jaz Barajas ALP [Catalytic activity/Vol] 90 U/L Normal 46-116 [facility] Comment on above: Performed By: #### L IPID, TSH, CMP ####[facility] Kwnybowyfu[address] [place] [address]Dr. Jaz Barajas ALT [Catalytic activity/Vol] 106 U/L Critically high 14-59 [facility] Comment on above: Performed By: #### L IPID, TSH, CMP ####[facility] Karnfrjpiy88[address] [place] [address]Dr. Jaz Barajas Anion gap [Moles/Vol] 12.5 mmol/L Normal [facility] Comment on above: Performed By: #### L IPID, TSH, CMP ####[facility] Meahgrsnuu23[address] [place] [address]Dr. Jaz Barajas AST [Catalytic activity/Vol] 43 U/L Critically high 15-37 [facility] Comment on above: Performed By: #### L IPID, TSH, CMP ####[facility] [address] [place], [place] [address]Dr. Jaz Barajas Bilirubin [Mass/Vol] 0.4 mg/dL Normal 0.2-1.0 [facility] Comment on above: Performed By: #### L IPID, TSH, CMP ####[facility] [address] [place], [place] [address]Dr. Jaz Barajas Calcium [Mass/Vol] 9.0 mg/dL Normal 8.5-10.1 [facility] Comment on above: Performed By: #### L IPID, TSH, CMP ####[facility] [address] [place], [place] [address]Dr. Jaz Barajas Chloride [Moles/Vol] 104 mmol/L Normal 98-107 [facility] Comment on above: Performed By: #### L IPID, TSH, CMP ####[facility] Ekwrq[address] [place], [place] [address]Dr. Jaz Barajas CO2 [Moles/Vol] 25.8 mmol/L Normal 21.0-32.0 [facility] Comment on above: Performed By: #### L IPID, TSH, CMP ####[facility] [address] [place], [place] [address]Dr. Jaz Barajas Creatinine [Mass/Vol] 0.76 mg/dL Normal 0.55-1.02 [facility] Comment on above: Performed By: #### L IPID, TSH, CMP ####[facility] [address]ustmnhtd[address] [place] [address]Dr. Jaz Barajas EGFR-AF SAMMARINESE >60 Normal >=60 [facility] Comment on above: Performed By: #### L IPID, TSH, CMP ####[facility] V[address]ud[address]tmv[address] [place] [address]Dr. Jaz Barajas EGFR-NON AF SAMMARINESE >60 Normal >=60 [facility] Comment on above: Performed By: #### L IPID, TSH, CMP ####[facility] U[address] [place], [place] [address]Dr. Jaz Barajas Globulin (S) [Mass/Vol] 4.4 g/dL Normal [facility] Comment on above: Performed By: #### L IPID, TSH, CMP ####[facility] [address]rs[address] [place], [place] [address]Dr. Jaz Barajas Glucose [Mass/Vol] 228 mg/dL Critically high 74-106 T [facility] Comment on above: Performed By: #### L IPID, TSH, CMP ####[facility] G[address]ym[address] [place], [place] [address]Dr. Jaz Barajas Potassium [Moles/Vol] 4.3 mmol/L Normal 3.5-5.1 [facility] Comment on above: Performed By: #### L IPID, TSH, CMP ####[facility] Owjgml[address]vy[address] [place], [place] [address]Dr. Jaz Barajas Protein [Mass/Vol] 8.1 g/dL Normal 6.4-8.2 [facility] Comment on above: Performed By: #### L IPID, TSH, CMP ####[facility] [address]ub[address] [place], [place] [address]Dr. Jaz Barajas Sodium [Moles/Vol] 138 mmol/L Normal 136-145 [facility] Comment on above: Performed By: #### L IPID, TSH, CMP ####[facility] Tazlov[address]uxs[address] [place] [address]Dr. Jaz Barajas Urea nitrogen [Mass/Vol] 21.0 mg/dL Critically high 7.0-18.0 [facility] Comment on above: Performed By: #### L IPID, TSH, CMP ####[facility] X[address]isdm[address]ie[address] [place] [address]Dr. Jaz Barajas Urea nitrogen/Creatinin e [Mass ratio] 27.6 mg/mg Normal [facility] Comment on above: Performed By: #### L IPID, TSH, CMP ####[facility] Ppwngcofhk25[address] [place] [address]Dr. Jaz Barajas TSHon 12-11-2022 TSH 3.602 uIU/mL Normal 0.358-3.740 [facility] Comment on above: Performed By: #### L IPID TSH, CMP ####[facility] W[address]cr[address] [place], [place] [address]Dr. Jaz Barajas UA RANDOM W/MICROSCOPICon BACTERIA NONE SEEN Normal NONE SEEN [facility] Comment on above: Performed By: #### U AMIC ####[facility] [address] [place], [place] [address]Dr. Jaz Barajas Bilirubin Ql (U) Negative Normal NEGATIVE [facility] Comment on above: Performed By: #### U AMIC ####[facility] [address]xamilyn[address] [place] [address]Dr. Jaz Barajas CAST NONE SEEN Normal NONE SEEN [facility] Comment on above: Performed By: #### U AMIC ####[facility] [address]es[address]ib[address] [place], [place] [address]Dr. Jaz Barajas Clarity (U) CLEAR Normal CLEAR [facility] Comment on above: Performed By: #### U AMIC ####[facility] [address] [place], [place] [address]Dr. Jaz Barajas Color (U) LT. YELLOW Normal YELLOW [facility] Comment on above: Performed By: #### U AMIC ####[facility] [address] [place], [place] [address]Dr. Jaz Barajas Crystals LM Nom (Urine sed) NONE SEEN Normal NONE SEEN [facility] Comment on above: Performed By: #### U AMIC ####[facility] Uhphwuazxu14[address] [place] [address]Dr. Jaz Barajas Epithelial cells LM Ql (Urine sed) RARE Normal NONE SEEN /RARE [facility] Comment on above: Performed By: #### U AMIC ####[facility] [address]hrpdz[address] [place] [address]Dr. Jaz Barajas Glucose Ql (U) >1000 Abnormal NEGATIVE [facility] Comment on above: Performed By: #### U AMIC ####[facility] Xzilrvnwav[address] [place] [address]Dr. Jaz Barajas Hemoglobin Ql (U) Negative Normal NEGATIVE [facility] Comment on above: Performed By: #### U AMIC ####[facility] Lxj[address] [place], [place] [address]Dr. Jaz Barajas Ketones Ql (U) Negative Normal NEGATIVE [facility] Comment on above: Performed By: #### U AMIC ####[facility] I[address]ef[address] [place], [place] [address]Dr. Jaz Barajas LEUKOCYTES Negative Normal NEGATIVE [facility] Comment on above: Performed By: #### U AMIC ####[facility] [address]ugdqmnnrv[address] [place] [id number]. Jaz Barajas MUCOUS NONE SEEN Normal NONE SEEN [facility] Comment on above: Performed By: #### U AMIC ####[facility] [address]jlc[address] [place], [place] [address]Dr. Jaz Barajas Nitrite Ql (U) Negative Normal NEGATIVE [facility] Comment on above: Performed By: #### U AMIC ####[facility] Guz[address] [place], [place] [address]Dr. Jaz Barajas pH (U) 6.0 [pH] Normal 5-9 [facility] Comment on above: Performed By: #### U AMIC ####[facility] [address] [place], [place] [address]Dr. Jaz Barajas RBC NONE SEEN Abnormal 0-2 [facility] Comment on above: Performed By: #### U AMIC ####[facility] [address] [place] [id number] Barajas SPEC GRAVITY 1.020 Normal 1.005-<=1.02 5 [facility] Comment on above: Performed By: #### U AMIC ####[facility] [address] [place] [id number] Barajas UA PROTEIN Negative Normal NEGATIVE/ TRACE [facility] Comment on above: Performed By: #### U AMIC ####[facility] Cyjkcfrvly[address] [place] [id number]. Jaz Barajas Urobilinogen Qn (U) 0.2 {Oxana'U}/dL Normal 0.2 - 1.0 [facility] Comment on above: Performed By: #### U AMIC ####[facility] [address]klt[address]xqhh[address] [place] [address]DrPratibha Barajas WBC 0-2 Abnormal NONE SEEN [facility] Comment on above: Performed By: #### U AMIC ####[facility] [address]psvc[address]xi[address] [place] [id number] Barajas VITAMIN D 25 OHon 12-11-2022 VIT D 25-OH 30.9 ng/mL Normal [facility] Comment on above: Performed By: #### P VALENTINELCM #### [facility] [address] [place] [address] Dr. Jaz Barajas VIT D RANGES SEE BELOW Normal [facility] Comment on above: Result Comment: <20 ng/mL Vit D deficient 20 - <30 ng/mL Vit D insufficient 30 - 100 ng/mL Vit D sufficient >100 ng/mL Potential Toxicity Performed By: #### P VALENTINELCM #### [facility] [address] [address] [address] Jaz Barajas CBC AUTO DIFFon 11-15-2022 BASO # 0.1 103/ul Normal 0.0-0.1 [facility] Comment on above: Performed By: #### P VALENTINELCM #### [facility] [address] [address] [address] Jaz Barajas Basophils/100 WBC (Bld) 0.6 % Normal 0.2-2.0 [facility] Comment on above: Performed By: #### P ROGLCM #### [facility] [address] [address] [address] Jaz Barajas EO # 0.2 103/ul Normal 0.0-0.7 [facility] Comment on above: Performed By: #### P ROGLCM #### [facility] [address] [place] [address] Dr. Jaz Barajas Eosinophils/100 WBC (Bld) 2.0 % Normal 0.9-7.0 [facility] Comment on above: Performed By: #### P ROGLCM #### [facility] [address] [place] [address] Dr. Jaz Barajas Erythrocyte distribution width (RBC) [Ratio] 13.3 % Normal 11.0-15.0 [facility] Comment on above: Performed By: #### P ROGLCM #### [facility] [address] [place] [address] Dr. Jaz Barajas Hematocrit (Bld) [Volume fraction] 40.4 % Normal 36.0-48.0 [facility] Comment on above: Performed By: #### P ROGLCM #### [facility] [address] [place] [address] Dr. Jaz Barajas Hemoglobin (Bld) [Mass/Vol] 13.5 g/dL Normal 12.0-16.0 [facility] Comment on above: Performed By: #### P ROGLCM #### [facility] [address] [place] [address] Dr. Jaz Barajas IG # 0.03 10e3/ul Normal 0.00-0.03 [facility] Comment on above: Performed By: #### P ROGLCM #### [facility] [address] [place] [address] Dr. Jaz Barajas IG % 0.3 % Normal 0.0-0.5 [facility] Comment on above: Performed By: #### P ROGLCM #### [facility] [address] [address] [address] Jaz Barajas LYMPH # 3.3 103/ul Normal 1.2-3.8 [facility] Comment on above: Performed By: #### P ROGLCM #### [facility] [address] [address] [address] Jaz Barajas Lymphocytes/100 WBC (Bld) 30.7 % Normal 20.5-60.0 [facility] Comment on above: Performed By: #### P ROGLCM #### [facility] [address] [address] [address] Jaz Barajas MANUAL DIFF REQ NO Normal [facility] Comment on above: Performed By: #### P ROGLCM #### [facility] [address] [place] [address] Dr. Jaz Barajas MCH (RBC) [Entitic mass] 26.6 pg Critically low 26.7-34.0 [facility] Comment on above: Performed By: #### P ROGLCM #### [facility] [address] [place] [address] Dr. Jaz Barajas MCHC (RBC) [Mass/Vol] 33.4 g/dL Normal 29.9-35.2 [facility] Comment on above: Performed By: #### P ROGLCM #### [facility] [address] [place] [address] Dr. Jaz Barajas MCV (RBC) [Entitic vol] 79.7 fL Critically low 81.0-99.0 [facility] Comment on above: Performed By: #### P ROGLCM #### [facility] [address] [place] [address] Dr. Jaz Barajas MONO # 0.8 103/ul Normal 0.3-0.8 [facility] Comment on above: Performed By: #### P ROGLCM #### [facility] [address] [place] [address] Dr. Jaz Barajas Monocytes/100 WBC (Bld) 7.4 % Normal 1.7-12.0 [facility] Comment on above: Performed By: #### P ROGLCM #### [facility] [address] [address] [address] Jaz Barajas NEUT # 6.3 103/ul Normal 1.4-6.5 [facility] Comment on above: Performed By: #### P ROGLCM #### [facility] [address] [address] [address] Jaz Barajas Neutrophils/100 WBC (Bld) 59.0 % Normal 43.0-75.0 [facility] Comment on above: Performed By: #### P ROGLCM #### [facility] [address] [address] [address] Jaz Barajas Platelet mean volume (Bld) [Entitic vol] 10.7 fL Normal 9.5-13.5 [facility] Comment on above: Performed By: #### P ROGLCM #### [facility] [address] [place] [address] Dr. Jaz Barajas PLT 326 103/ul Normal 150-450 [facility] Comment on above: Performed By: #### P ROGLCM #### [facility] [address] [address] [address] Jaz Barajas RBC 5.07 106/ul Normal 4.20-5.40 [facility] Comment on above: Performed By: #### P ROGLCM #### [facility] [address] [address] [address] Jaz Barajas WBC 10.7 103/ul Normal 4.0-11.0 [facility] Comment on above: Performed By: #### P ROGLCM #### [facility] [address] [place] [address] ABD/PELV W CONon [...] GERALDINE LAZAR Date: 2022-11-15 09:13 Normal [facility] ER URINE PROFILEon 3 Bilirubin Ql (U) Negative Normal NEGATIVE [facility] Comment on above: Performed By: #### P ROGLCM #### [facility] [address] [place] [address] Dr. Jaz Barajas Clarity (U) CLEAR Normal CLEAR [facility] Comment on above: Performed By: #### P ROGLCM #### [facility] [address] [place] [address] Dr. Jaz Barajas Color (U) LT. YELLOW Normal YELLOW [facility] Comment on above: Performed By: #### P ROGLCM #### [facility] [address] [place] [address] Dr. Jaz Barajas ERUAHD A micrscopic examina tion will be performed if indicated. Normal [facility] Comment on above: Performed By: #### P ROGLCM #### [facility] [address] [place] [address] Dr. Jaz Barajas Glucose Ql (U) 1000 mg/dl Abnormal NEGATIVE [facility] Comment on above: Performed By: #### P ROGLCM #### [facility] [address] [place] [address] Dr. Jaz Barajas Hemoglobin Ql (U) Negative Normal NEGATIVE [facility] Comment on above: Performed By: #### P ROGLCM #### [facility] [address] [place] [address] Dr. Jaz Barajas Ketones Ql (U) Negative Normal NEGATIVE [facility] Comment on above: Performed By: #### P ROGLCM #### [facility] [address] [place] [address] Dr. Jaz Barajas LEUKOCYTES Negative Normal NEGATIVE [facility] Comment on above: Performed By: #### P ROGLCM #### [facility] [address] [place] [address] Dr. Jaz Barajas Nitrite Ql (U) Negative Normal NEGATIVE [facility] Comment on above: Performed By: #### P ROGLCM #### [facility] [address] [place] [address] Dr. Jaz Barajas pH (U) 6.0 [pH] Normal 5-9 [facility] Comment on above: Performed By: #### P ROGLCM #### [facility] [address] [place] [address] Dr. Jaz Barajas SPEC GRAVITY 1.015 Normal 1.005-<=1.02 5 [facility] Comment on above: Performed By: #### P ROGLCM #### [facility] [address] [place] [address] Dr. Jaz Barajas UA PROTEIN Negative Normal NEGATIVE/ TRACE [facility] Comment on above: Performed By: #### P ROGLCM #### [facility] [address] [place] [address] Dr. Jaz Barajas UR MICRO IND NOT INDICATED Normal [facility] Comment on above: Performed By: #### P ROGLCM #### [facility] [address] [place] [address] Dr. Jaz Barajas Urobilinogen Qn (U) 0.2 {Oxana'U}/dL Normal 0.2 - 1.0 [facility] Comment on above: Performed By: #### P ROGLCM #### [facility] [address] [address] [address] Jaz Barajas LIPASEon 11-15-2022 Lipase [Catalytic activity/Vol] 73.0 U/L Normal 73.0-393.0 [facility] Comment on above: Performed By: #### P REGU #### [facility] [address] [address] [address] Jaz Barajas URon 11-15-2022 , QUAL Negative Normal NEGATIVE [facility] Comment on above: Performed By: #### E RUR, PREGU ####[facility] [address] [place] [address]Dr. Jaz Barajas PROF 14(COMP METB)on 023 Albumin [Mass/Vol] 3.6 g/dL Normal 3.4-5.0 [facility] Comment on above: Performed By: #### P REGU #### [facility] [address] [address] [address] Jaz Barajas Albumin/Globulin [Mass ratio] 0.9 {ratio} Normal [facility] Comment on above: Performed By: #### P REGU #### [facility] [address] [address] [address] Jaz Barajas ALP [Catalytic activity/Vol] 98 U/L Normal 46-116 [facility] Comment on above: Performed By: #### P REGU #### [facility] [address] [address] [address] Jaz Barjaas ALT [Catalytic activity/Vol] 138 U/L Critically high 14-59 [facility] Comment on above: Performed By: #### P REGU #### [facility] [address] [address] [address] Jaz Barajas Anion gap [Moles/Vol] 13.4 mmol/L Normal [facility] Comment on above: Performed By: #### P REGU #### [facility] [address] [address] [address] Jaz Barajas AST [Catalytic activity/Vol] 61 U/L Critically high 15-37 [facility] Comment on above: Performed By: #### P REGU #### [facility] [address] [address] [address] Jaz Barajas Bilirubin [Mass/Vol] 0.2 mg/dL Normal 0.2-1.0 [facility] Comment on above: Performed By: #### P REGU #### [facility] [address] [address] [address] Jaz Barajas Calcium [Mass/Vol] 9.4 mg/dL Normal 8.5-10.1 [facility] Comment on above: Performed By: #### P REGU #### [facility] [address] [address] [address] Jaz Barajas Chloride [Moles/Vol] 104 mmol/L Normal 98-107 [facility] Comment on above: Performed By: #### P REGU #### [facility] [address] [place] [address] Dr. Jaz Barajas CO2 [Moles/Vol] 24.7 mmol/L Normal 21.0-32.0 [facility] Comment on above: Performed By: #### P REGU #### [facility] [address] [place] [address] Dr. Jaz Barajas Creatinine [Mass/Vol] 0.69 mg/dL Normal 0.55-1.02 [facility] Comment on above: Performed By: #### P REGU #### [facility] [address] [place] [address] Dr. Jaz Barajas EGFR-AF SAMMARINESE >60 Normal >=60 [facility] Comment on above: Performed By: #### P REGU #### [facility] [address] [address] [address] aJz Barajas EGFR-NON AF SAMMARINESE >60 Normal >=60 [facility] Comment on above: Performed By: #### P REGU #### [facility] [address] [place] [address] Dr. Jaz Barajas Globulin (S) [Mass/Vol] 4.2 g/dL Normal [facility] Comment on above: Performed By: #### P REGU #### [facility] [address] [place] [address] [address] Jaz Barajas Glucose [Mass/Vol] 339 mg/dL Critically high 74-106 [facility] Comment on above: Performed By: #### P REGU #### [facility] [address] [address] [address] Jaz Barajas Potassium [Moles/Vol] 4.1 mmol/L Normal 3.5-5.1 [facility] Comment on above: Performed By: #### P REGU #### [facility] [address] [place] [address] [address] Jaz Barajas Protein [Mass/Vol] 7.8 g/dL Normal 6.4-8.2 [facility] Comment on above: Performed By: #### P REGU #### [facility] [address] [place] [address] Dr. Jaz Barajas Sodium [Moles/Vol] 138 mmol/L Normal 136-145 [facility] Comment on above: Performed By: #### P REGU #### [facility] [address] [address] [address] Jaz Barajas Urea nitrogen [Mass/Vol] 17.0 mg/dL Normal 7.0-18.0 [facility] Comment on above: Performed By: #### P REGU #### [facility] [address] [place] [address] Dr. aJz Barajas Urea nitrogen/Creatinin e [Mass ratio] 24.6 mg/mg Normal [facility] Comment on above: Performed By: #### P REGU #### [facility] [address] [place] [address] Dr. Jaz Barajas CULTURE WOUNDon 11-13-2022 CULTURE [...] F Tetracycline >=16 R F Normal [facility] Comment on above: Performed By: #### W OUNDCX ####[facility] [address] [place], [place] [address]TxDr. Jaz Barajas [facility]on 08-01 SARS-CoV-2 (COVID-19) RNA REANNA+probe Ql (Unsp spec) Not detected Normal NOT DETECTED [facility] Comment on above: Result Comment: This test is not yet approved or cleared by the [place] FDA. When there are no FDA-approved or cleared tests available, and other criteria are met, FDA can make tests available under an emergency access mechanism called an Emergency Use Authorization (EUA). The EUA for this test is supported by the [place] of Health and Human Service's (HHS's) declaration [...] SARS-CoV-2. Performed By: #### P DUSTINM #### [facility] [address] [address] [address] Jaz Barajas INFLUENZA A AND B AGon 08-18 INFLUANE SEE BELOW Normal [facility] Comment on above: Result Comment: Nega tive for Flu A protein angiten. Infection due to Flu A cannot be ruled out. Flu A angiten in the sample may be below the detection limit of the test. Performed By: #### P DUSTINM #### [facility] [address] [address] [address] Jaz Barajas INFLUBNEG SEE BELOW Normal [facility] Comment on above: Result Comment: Nega tive for Flu B protein antigen. Infection due to Flu B cannot be ruled out. Flu B antigen in the sample may be below the detection limit of the test. Performed By: #### P ROGLCM #### [facility] [address] [place] [address] [address] Jaz Barajas INFLUENZA A AG Negative Normal NEGATIVE SEE COMMENT [facility] Comment on above: Performed By: #### P ROGLCM #### [facility] [address] [place] [address] [address] Jaz Barajas INFLUENZA B AG Negative Normal NEGATIVE SEE COMMENT [facility] Comment on above: Performed By: #### P ROGLCM #### [facility] [address] [place] [address] [address] Jaz Barajas INTERNAL CONTROLS Within Normal Limits Normal Wi thin Normal Limits [facility] Comment on above: Performed By: #### P ROGLCM #### [facility] [address] [place] [address] Dr. Jaz Barajas POINT OF CARE GLUCOSEon 12- Glucose [Mass/Vol] 310 mg/dL Critically high 74-106 [facility] Comment on above: Performed By: #### P ROGLCM #### [facility] [address] [address] [address] Jaz Barajas XR CHEST 1 Von [...] EDUARDO RHODES Date: 2022-08-18 15:33 Normal [facility] PREG HCG QUALon 05-14-2022 , QUAL Negative Normal NEGATIVE [facility] Comment on above: Performed By: #### P REG ####[facility] [address] [place] [address]Dr. Jaz Barajas CBC AUTO DIFFon 05-08-2022 BASO # 0.1 103/ul Normal 0.0-0.1 [facility] Comment on above: Performed By: #### C BC ####[facility] [address] [place], [place] [address]Dr. Jaz Karl Basophils/100 WBC (Bld) 0.6 % Normal 0.2-2.0 [facility] Comment on above: Performed By: #### C BC ####[facility] [address] [place], [place] [address]Dr. Jaz Barajas EO # 0.2 103/ul Normal 0.0-0.7 [facility] Comment on above: Performed By: #### C BC ####[facility] [address] [place], [place] [address]Dr. Jaz Barajas Eosinophils/100 WBC (Bld) 1.5 % Normal 0.9-7.0 [facility] Comment on above: Performed By: #### C BC ####[facility] [address] [place], [place] [address]Dr. Jaz Barajas Erythrocyte distribution width (RBC) [Ratio] 12.6 % Normal 11.0-15.0 [facility] Comment on above: Performed By: #### C BC ####[facility] [address] [place], [place] [address]Dr. Jaz Karl Hematocrit (Bld) [Volume fraction] 38.7 % Normal 36.0-48.0 [facility] Comment on above: Performed By: #### C BC ####[facility] [address] [place], [place] [address]Dr. Jaz Karl Hemoglobin (Bld) [Mass/Vol] 12.9 g/dL Normal 12.0-16.0 [facility] Comment on above: Performed By: #### C BC ####[facility] [address] [place], [place] [address]Dr. Jaz Barajas IG # 0.02 10e3/ul Normal 0.00-0.03 [facility] Comment on above: Performed By: #### C BC ####[facility] [address] [place], [place] [address]Dr. Jaz Barajas IG % 0.2 % Normal 0.0-0.5 [facility] Comment on above: Performed By: #### C BC ####[facility] [address] [place] [address]Dr. Jaz Karl LYMPH # 3.5 103/ul Normal 1.2-3.8 [facility] Comment on above: Performed By: #### C BC ####[facility] [address] [place] [address]Dr. Jaz Karl Lymphocytes/100 WBC (Bld) 34.4 % Normal 20.5-60.0 [facility] Comment on above: Performed By: #### C BC ####[facility] [address] [place], [place] [address]Dr. Hannahisela Barajas MANUAL DIFF REQ NO Normal [facility] Comment on above: Performed By: #### C BC ####[facility] [address] [place], [place] [address]Dr. Jaz Karl MCH (RBC) [Entitic mass] 27.2 pg Normal 26.7-34.0 [facility] Comment on above: Performed By: #### C BC ####[facility] [address] [place], [place] [address]Dr. Jaz Barajas MCHC (RBC) [Mass/Vol] 33.3 g/dL Normal 29.9-35.2 [facility] Comment on above: Performed By: #### C BC ####[facility] [address] [place], [place] [address]Dr. Jaz Barajas MCV (RBC) [Entitic vol] 81.6 fL Normal 81.0-99.0 [facility] Comment on above: Performed By: #### C BC ####[facility] [address] [place], [place] [address]DrPratibha Barajas MONO # 0.7 103/ul Normal 0.3-0.8 [facility] Comment on above: Performed By: #### C BC ####[facility] [address] [place], [place] [address]Dr. Jaz Barajas Monocytes/100 WBC (Bld) 7.0 % Normal 1.7-12.0 [facility] Comment on above: Performed By: #### C BC ####[facility] [address] [place] [id number]. Jaz Barajas NEUT # 5.7 103/ul Normal 1.4-6.5 [facility] Comment on above: Performed By: #### C BC ####[facility] [address] [place] [id number]. Jaz Barajas Neutrophils/100 WBC (Bld) 56.3 % Normal 43.0-75.0 [facility] Comment on above: Performed By: #### C BC ####[facility] [address] [place] [address]Dr. Jaz Barajas Platelet mean volume (Bld) [Entitic vol] 11.0 fL Normal 9.5-13.5 [facility] Comment on above: Performed By: #### C BC ####[facility] [address] [place] [address]Dr. Jaz Barajas PLT 274 103/ul Normal 150-450 [facility] Comment on above: Performed By: #### C BC ####[facility] [address] [place] [id number]. Jaz Barajas RBC 4.74 106/ul Normal 4.20-5.40 [facility] Comment on above: Performed By: #### C BC ####[facility] [address] [place] [id number]. Jaz Barajas WBC 10.0 103/ul Normal 4.0-11.0 [facility] Comment on above: Performed By: #### C BC ####[facility] [address] [place] [id number]. Jaz Barajas [facility]-19 PCR ([facility]on SARS-CoV-2 (COVID-19) RNA REANNA+probe Ql (Unsp spec) Not detected Normal NOT DETECTED [facility] Comment on above: Result Comment: This test is not yet approved or cleared by the [place] FDA. When there are no FDA-approved or cleared tests available, and other criteria are met, FDA can make tests available under an emergency access mechanism called an Emergency Use Authorization (EUA). The EUA for this test is supported by the [place] of Health and Human Service's (HHS's) declaration [...] SARS-CoV-2. Performed By: #### P REGU #### [facility] [address] [place] [address] Dr. Jaz Barajas PROF CHEM 8 (BAS METB)on Anion gap [Moles/Vol] 10.1 mmol/L Normal [facility] Comment on above: Performed By: #### P REGU #### [facility] [address] [place] [address] Dr. Jaz Barajas Calcium [Mass/Vol] 9.0 mg/dL Normal 8.5-10.1 [facility] Comment on above: Performed By: #### P REGU #### [facility] [address] [place] [address] Dr. Jaz Barajas Chloride [Moles/Vol] 99 mmol/L Normal 98-107 [facility] Comment on above: Performed By: #### P REGU #### [facility] [address] [place] [address] Dr. Jaz Barajas CO2 [Moles/Vol] 29.1 mmol/L Normal 21.0-32.0 [facility] Comment on above: Performed By: #### P REGU #### [facility] [address] [place] [address] Dr. Jaz Barajas Creatinine [Mass/Vol] 0.80 mg/dL Normal 0.55-1.02 [facility] Comment on above: Performed By: #### P REGU #### [facility] [address] [address] [address] Jaz Barajas EGFR-AF SAMMARINESE >60 Normal >=60 [facility] Comment on above: Performed By: #### P REGU #### [facility] [address] [address] [address] Jaz Barajas EGFR-NON AF SAMMARINESE >60 Normal >=60 [facility] Comment on above: Performed By: #### P REGU #### [facility] [address] [address] [address] Jaz Barajas Glucose [Mass/Vol] 217 mg/dL Critically high 74-106 T [facility] Comment on above: Performed By: #### P REGU #### [facility] [address] [place] [address] Dr. Jaz Barajas Potassium [Moles/Vol] 4.2 mmol/L Normal 3.5-5.1 [facility] Comment on above: Result Comment: spec imen slightly hemolyzed may affect K+ result Performed By: #### P REGU #### [facility] [address] [address] [address] Jaz Barajas Sodium [Moles/Vol] 134 mmol/L Critically low 136-145 Th [facility] Comment on above: Performed By: #### P REGU #### [facility] [address] [place] [address] Dr. Jaz Barajas Urea nitrogen [Mass/Vol] 11.0 mg/dL Normal 7.0-18.0 [facility] Comment on above: Performed By: #### P REGU #### [facility] [address] [place] [address] Dr. Jaz Barajas Urea nitrogen/Creatinin e [Mass ratio] 13.8 mg/mg Normal [facility] Comment on above: Performed By: #### P REGU #### [facility] [address] [place] [address] ABD/PELV W CONon [...] JEYSON BLANTON Date: 2022-04-18 12:31 Normal [facility] ER URINE PROFILEon 2 Bilirubin Ql (U) Negative Normal NEGATIVE [facility] Comment on above: Performed By: #### E RUR, PREGU ####[facility] [address] [place] [address]Dr. Jaz Barajas Clarity (U) CLEAR Normal CLEAR [facility] Comment on above: Performed By: #### E RUR, PREGU ####[facility] [address] [place] [id number]. Jaz Barajas Color (U) LT. YELLOW Normal YELLOW [facility] Comment on above: Performed By: #### E RUR, PREGU ####[facility] [address] [place], [place] [address]Dr. Jaz RAMIREZAHD A micrscopic examina tion will be performed if indicated. Normal [facility] Comment on above: Performed By: #### E RUR, PREGU ####[facility] [address] [place] [address]Dr. Jaz Barajas Glucose Ql (U) 1000 mg/dl Abnormal NEGATIVE [facility] Comment on above: Performed By: #### E RUR, PREGU ####[facility] [address] [place], [place] [address]Dr. Jaz Barajas Hemoglobin Ql (U) Negative Normal NEGATIVE [facility] Comment on above: Performed By: #### E RUR, PREGU ####[facility] [address] [place], [place] [address]Dr. Jaz Barajas Ketones Ql (U) Negative Normal NEGATIVE [facility] Comment on above: Performed By: #### E RUR, PREGU ####[facility] [address] [place], [place] [address]Dr. Jaz Barajas LEUKOCYTES Negative Normal NEGATIVE [facility] Comment on above: Performed By: #### Neva RUR, PREGU ####[facility] [address] [place], [place] [address]Dr. Jaz Barajas Nitrite Ql (U) Negative Normal NEGATIVE [facility] Comment on above: Performed By: #### Neva RUR, PREGU ####[facility] [address] [place], [place] [address]Dr. Jaz Barajas pH (U) 6.5 [pH] Normal 5-9 [facility] Comment on above: Performed By: #### E RUR, PREGU ####[facility] [address] [place], [place] [address]Dr. Jaz Barajas SPEC GRAVITY 1.010 Normal 1.005-<=1.02 5 [facility] Comment on above: Performed By: #### E RUR, PREGU ####[facility] Ms[address] [place], [place] [address]Dr. Jaz Barajas UA PROTEIN Negative Normal NEGATIVE/ TRACE [facility] Comment on above: Performed By: #### E RUR, PREGU ####[facility] [address] [address]Dr. Jaz Barajas UR MICRO IND NOT INDICATED Normal [facility] Comment on above: Performed By: #### E RUR, PREGU ####[facility] [address] [address]Dr. Jaz Barajas Urobilinogen Qn (U) 0.2 {Oxana'U}/dL Normal 0.2 - 1.0 [facility] Comment on above: Performed By: #### E RUR, PREGU ####[facility] [address] [address]Dr. Jaz Barajas URon 04-18-2022 , QUAL Negative Normal NEGATIVE [facility] Comment on above: Performed By: #### E RUR, PREGU ####[facility] [address] [address]Dr. Jaz Barajas 17-OH PROGESTERONE, LC/MSon 04-05-2022 17-OH Progesterone LCMS 43 ng/dL Normal [facility] Comment on above: Result Comment: Adul t Female Follicular 15 - 70 Luteal 35 - 290 Performed By: #### P ROGLCM #### [facility] [address] [address] [address] Jaz Barajas ANDROSTENEDINE LC/MSon 04-05 Androstenedione LCMS 111 ng/dL Normal 41-262 [facility] Comment on above: Result Comment: This test was developed and its performance characteristics determined by [facility]. It has not been cleared or approved by the Food and Drug Administration. Performed By: #### A NDROST #### [facility] [address] [address] [address] Jaz Barajas TESTOSTERONE, TOTALon 2021 Testosterone [Mass/Vol] 70 ng/dL Critically high 8-60 [facility] Comment on above: Performed By: #### T ESTTOT ####[facility] [address] [address]Dr. Jaz Barajas PROF CHEM 8 (BAS METB)on Anion gap [Moles/Vol] 11.5 mmol/L Normal [facility] Comment on above: Performed By: #### B MP ####[facility] [address] [address]Dr. Jaz Barajas Calcium [Mass/Vol] 9.1 mg/dL Normal 8.5-10.1 [facility] Comment on above: Performed By: #### B MP ####[facility] [address] [address]Dr. Jaz Barajas Chloride [Moles/Vol] 103 mmol/L Normal 98-107 [facility] Comment on above: Performed By: #### B MP ####[facility] [address] [address]Dr. Jaz Barajas CO2 [Moles/Vol] 28.0 mmol/L Normal 21.0-32.0 [facility] Comment on above: Performed By: #### B MP ####[facility] [address] [place], [place] [address]Dr. Jaz Barajas Creatinine [Mass/Vol] 0.74 mg/dL Normal 0.55-1.02 [facility] Comment on above: Performed By: #### B MP ####[facility] [address] [address]Dr. Jaz Barajas EGFR-AF SAMMARINESE >60 Normal >=60 [facility] Comment on above: Performed By: #### B MP ####[facility] [address] [address]Dr. Jaz Barajas EGFR-NON AF SAMMARINESE >60 Normal >=60 [facility] Comment on above: Performed By: #### B MP ####[facility] [address] [address]Dr. Jaz Barajas Glucose [Mass/Vol] 197 mg/dL Critically high 74-106 [facility] Comment on above: Performed By: #### B MP ####[facility] [address] [place], [place] [address]Dr. Jaz Barajas Potassium [Moles/Vol] 4.5 mmol/L Normal 3.5-5.1 [facility] Comment on above: Performed By: #### B MP ####[facility] [address] [address]Dr. Jaz Barajas Sodium [Moles/Vol] 138 mmol/L Normal 136-145 [facility] Comment on above: Performed By: #### B MP ####[facility] [address] [address]Dr. Jaz Barajas Urea nitrogen [Mass/Vol] 11.0 mg/dL Normal 7.0-18.0 [facility] Comment on above: Performed By: #### B MP ####[facility] [address] [address]Dr. Jaz Barajas Urea nitrogen/Creatinin e [Mass ratio] 14.9 mg/mg Normal [facility] Comment on above: Performed By: #### B MP ####[facility] [address] [place] [address]DrPratibha Barajas XR ABD FLAT_UPon 02-06-2022 XR ABD [...] EDUARDO RIVERS Date: 2022-02-06 17:25 Normal [facility] CREATININEon 01-31-2022 Creatinine [Mass/Vol] 0.74 mg/dL Normal 0.55-1.02 [facility] Comment on above: Performed By: #### P ROGLCM #### [facility] [address] [address] [address] Jaz Barajas EGFR-AF SAMMARINESE >60 Normal >=60 [facility] Comment on above: Performed By: #### P VALENTINELCM #### [facility] [address] [address] [address] Jaz Barajas EGFR-NON AF SAMMARINESE >60 Normal >=60 [facility] Comment on above: Performed By: #### P ROGLCM #### [facility] [address] [place], [place] [address] ABDOMEN W CONon [...] JEYSON BLANTON Date: 2022-01-31 18:16 Normal [facility] ACETONE SERUMon 01-09-2022 ACETONE Negative Normal NEGATIVE [facility] Comment on above: Performed By: #### A CETON ####[facility] [address] [place], [place] [address]ZmDr. Jaz Barajas CARDIAC BISI ADMITon 022 CK [Catalytic activity/Vol] 58 U/L Normal 26-192 [facility] Comment on above: Performed By: #### P REGU #### [facility] [address] [place] [address] Dr. Jaz Barajas CK.MB [Mass/Vol] 0.64 ng/mL Normal <=3.60 [facility] Comment on above: Performed By: #### P REGU #### [facility] [address] [place] [address] Dr. Jaz Barajas HSTROP 5.3 pg/mL Normal 4.0-51.3 [facility] Comment on above: Result Comment: CUT- OFF POINTS HAVE BEEN ESTABLISHED BASED ON THE FOURTH UNIVERSAL DEFINITIONS OF MYOCARDIAL INFARCTION. THE UPPER REFERENCE LIMIT (URL) OF TROPONIN, DEFINED THE 99TH PERCENTILE OF cTnI DISTRIBUTION IN A REFERENCE POPULATION, HAS BEEN CONFIRMED THE DECISION THRESHOLD FOR TX DIAGNOSIS. Performed By: #### P REGU #### [facility] [address] [place] [address] Dr. Jaz Barajas WAI 30 ng/mL Normal 9-82 [facility] Comment on above: Performed By: #### P REGU #### [facility] [address] [place] [address] Dr. Jaz Barajas CBC AUTO DIFFon 01-09-2022 BASO # 0.1 103/ul Normal 0.0-0.1 [facility] Comment on above: Performed By: #### P REGU #### [facility] [address] [place] [address] Dr. Jaz Barajas Basophils/100 WBC (Bld) 0.5 % Normal 0.2-2.0 [facility] Comment on above: Performed By: #### P REGU #### [facility] [address] [place] [address] Dr. Jaz Barajas EO # 0.3 103/ul Normal 0.0-0.7 [facility] Comment on above: Performed By: #### P REGU #### [facility] [address] [place] [address] Dr. Jaz Barajas Eosinophils/100 WBC (Bld) 2.5 % Normal 0.9-7.0 [facility] Comment on above: Performed By: #### P REGU #### [facility] [address] [place] [address] Dr. Jaz Barajas Erythrocyte distribution width (RBC) [Ratio] 12.8 % Normal 11.0-15.0 [facility] Comment on above: Performed By: #### P REGU #### [facility] [address] [place] [address] Dr. Jaz Barajas Hematocrit (Bld) [Volume fraction] 41.0 % Normal 36.0-48.0 [facility] Comment on above: Performed By: #### P REGU #### [facility] [address] [place] [address] Dr. Jaz Barajas Hemoglobin (Bld) [Mass/Vol] 13.6 g/dL Normal 12.0-16.0 [facility] Comment on above: Performed By: #### P REGU #### [facility] [address] [place] [address] Dr. Jaz Barajas IG # 0.03 10e3/ul Normal 0.00-0.03 [facility] Comment on above: Performed By: #### P REGU #### [facility] [address] [place] [address] Dr. Jaz Barajas IG % 0.3 % Normal 0.0-0.5 [facility] Comment on above: Performed By: #### P REGU #### [facility] [address] [place] [address] Dr. Jaz Barajas LYMPH # 2.7 103/ul Normal 1.2-3.8 [facility] Comment on above: Performed By: #### P REGU #### [facility] [address] [place] [address] Dr. Jaz Barajas Lymphocytes/100 WBC (Bld) 25.7 % Normal 20.5-60.0 [facility] Comment on above: Performed By: #### P REGU #### [facility] [address] [place] [address] Dr. Jaz Barajas MANUAL DIFF REQ NO Normal [facility] Comment on above: Performed By: #### P REGU #### [facility] [address] [place] [address] Dr. Jaz Barajas MCH (RBC) [Entitic mass] 27.7 pg Normal 26.7-34.0 [facility] Comment on above: Performed By: #### P REGU #### [facility] [address] [place] [address] Dr. Jaz Barajas MCHC (RBC) [Mass/Vol] 33.2 g/dL Normal 29.9-35.2 [facility] Comment on above: Performed By: #### P REGU #### [facility] [address] [place] [address] Dr. Jaz Barajas MCV (RBC) [Entitic vol] 83.5 fL Normal 81.0-99.0 [facility] Comment on above: Performed By: #### P REGU #### [facility] [address] [place] [address] Dr. Jaz Barajas MONO # 0.8 103/ul Normal 0.3-0.8 [facility] Comment on above: Performed By: #### P REGU #### [facility] [address] [place] [address] Dr. Jaz Barajas Monocytes/100 WBC (Bld) 7.4 % Normal 1.7-12.0 [facility] Comment on above: Performed By: #### P REGU #### [facility] [address] [place] [address] Dr. Jaz Barajas NEUT # 6.6 103/ul Critically high 1.4-6.5 [facility] Comment on above: Performed By: #### P REGU #### [facility] [address] [place] [address] Dr. Jaz Barajas Neutrophils/100 WBC (Bld) 63.6 % Normal 43.0-75.0 [facility] Comment on above: Performed By: #### P REGU #### [facility] [address] [place] [address] Dr. Jaz Barajas Platelet mean volume (Bld) [Entitic vol] 11.5 fL Normal 9.5-13.5 [facility] Comment on above: Performed By: #### P REGU #### [facility] [address] [address] [address] Jaz Barajas PLT 227 103/ul Normal 150-450 [facility] Comment on above: Performed By: #### P REGU #### [facility] [address] [place] [address] Dr. Jaz Barajas RBC 4.91 106/ul Normal 4.20-5.40 [facility] Comment on above: Performed By: #### P REGU #### [facility] [address] [place] [address] Dr. Jaz Barajas WBC 10.4 103/ul Normal 4.0-11.0 [facility] Comment on above: Performed By: #### P REGU #### [facility] [address] [place] [address] Dr. Jaz Barajas CTA CHEST WO W [...] by: JEYSON BLANTON Date: 2022-01-09 09:47 Normal [facility] D-DIMERon 01-09-2022 D-DIMER 0.56 mg/L FEU Critically high 0.19-0.50 [facility] Comment on above: Result Comment: test repeated critical value verified Performed By: #### D DIM, PT, PTT #### [facility] [address] [place] [address] Dr. Jaz Barajas D-DIMER COMMENTS SEE BELOW Normal [facility] Comment on above: Result Comment: Incr [...] By: #### D DIM, PT, PTT #### [facility] [address] [place] [address] Dr. Jaz Barajas ER URINE PROFILEon 2 Bilirubin Ql (U) Negative Normal NEGATIVE [facility] Comment on above: Performed By: #### P ROGLCM #### [facility] [address] [place] [address] Dr. Jaz Barajas Clarity (U) CLEAR Normal CLEAR [facility] Comment on above: Performed By: #### P ROGLCM #### [facility] [address] [place] [address] Dr. Jaz Barajas Color (U) YELLOW Normal YELLOW [facility] Comment on above: Performed By: #### P ROGLCM #### [facility] [address] [place] [address] Dr. Jaz Barajas ERUAHD A micrscopic examina tion will be performed if indicated. Normal [facility] Comment on above: Performed By: #### P ROGLCM #### [facility] [address] [place] [address] Dr. Jaz Barajas Glucose Ql (U) 500 mg/dl Abnormal NEGATIVE [facility] Comment on above: Performed By: #### P ROGLCM #### [facility] [address] [place] [address] Dr. Jaz Barajas Hemoglobin Ql (U) Negative Normal NEGATIVE [facility] Comment on above: Performed By: #### P ROGLCM #### [facility] [address] [address] [address] Jaz Barajas Ketones Ql (U) Negative Normal NEGATIVE [facility] Comment on above: Performed By: #### P ROGLCM #### [facility] [address] [place] [address] Dr. Jaz Barajas LEUKOCYTES Negative Normal NEGATIVE [facility] Comment on above: Performed By: #### P ROGLCM #### [facility] [address] [place] [address] Dr. Jaz Barajas Nitrite Ql (U) Negative Normal NEGATIVE [facility] Comment on above: Performed By: #### P ROGLCM #### [facility] [address] [place] [address] Dr. Jaz Barajas pH (U) 6.0 [pH] Normal 5-9 [facility] Comment on above: Performed By: #### P ROGLCM #### [facility] [address] [place] [address] Dr. Jaz Barajas SPEC GRAVITY >=1.030 Abnormal 1.005-<=1.02 5 [facility] Comment on above: Performed By: #### P ROGLCM #### [facility] [address] [place] [address] Dr. Jaz Barajas UA PROTEIN Negative Normal NEGATIVE/ TRACE [facility] Comment on above: Performed By: #### P ROGLCM #### [facility] [address] [place] [address] Dr. Jaz Barajas UR MICRO IND NOT INDICATED Normal [facility] Comment on above: Performed By: #### P ROGLCM #### [facility] [address] [place] [address] Dr. Jaz Barajas Urobilinogen Qn (U) 0.2 {Oxana'U}/dL Normal 0.2 - 1.0 [facility] Comment on above: Performed By: #### P ROGLCM #### [facility] [address] [place] [address] Dr. Jaz Barajas PH VENOUS BLOODon 01-09-2022 PCO2 VENOUS 39.2 mmHg Critically low 40.0-52.0 [facility] Comment on above: Performed By: #### P HVEN #### [facility] [address] [place] [address] Dr. Jaz Barajas pH VENOUS 7.409 Normal 7.330-7.430 [facility] Comment on above: Performed By: #### P HVEN #### [facility] [address] [place] [address] Dr. Jaz Barajas URon 01-09-2022 , QUAL Negative Normal NEGATIVE [facility] Comment on above: Performed By: #### P REGU #### [facility] [address] [place] [address] Dr. Jaz Barajas PROF 14(COMP METB)on 022 Albumin [Mass/Vol] 3.2 g/dL Critically low 3.4-5.0 [facility] Comment on above: Performed By: #### P REGU #### [facility] [address] [place] [address] Dr. Jaz Barajas Albumin/Globulin [Mass ratio] 0.8 {ratio} Normal [facility] Comment on above: Performed By: #### P REGU #### [facility] [address] [place] [address] Dr. Jaz Barajas ALP [Catalytic activity/Vol] 109 U/L Normal 46-116 [facility] Comment on above: Performed By: #### P REGU #### [facility] [address] [place] [address] Dr. Jaz Barajas ALT [Catalytic activity/Vol] 95 U/L Critically high 14-59 [facility] Comment on above: Performed By: #### P REGU #### [facility] [address] [place] [address] Dr. Jaz Barajas Anion gap [Moles/Vol] 11.7 mmol/L Normal [facility] Comment on above: Performed By: #### P REGU #### [facility] [address] [place] [address] Dr. Jaz Barajas AST [Catalytic activity/Vol] 44 U/L Critically high 15-37 [facility] Comment on above: Performed By: #### P REGU #### [facility] [address] [address] [address] Jaz Barajas Bilirubin [Mass/Vol] 0.3 mg/dL Normal 0.2-1.0 [facility] Comment on above: Performed By: #### P REGU #### [facility] [address] [place] [address] Dr. Jaz Barajas Calcium [Mass/Vol] 8.8 mg/dL Normal 8.5-10.1 [facility] Comment on above: Performed By: #### P REGU #### [facility] [address] [place] [address] Dr. Jaz Barajas Chloride [Moles/Vol] 102 mmol/L Normal 98-107 [facility] Comment on above: Performed By: #### P REGU #### [facility] [address] [place] [address] Dr. Jaz Barajas CO2 [Moles/Vol] 25.3 mmol/L Normal 21.0-32.0 [facility] Comment on above: Performed By: #### P REGU #### [facility] [address] [place] [address] Dr. Jaz Barajas Creatinine [Mass/Vol] 0.86 mg/dL Normal 0.55-1.02 [facility] Comment on above: Performed By: #### P REGU #### [facility] [address] [place] [address] Dr. Jaz Barajas EGFR-AF SAMMARINESE >60 Normal >=60 [facility] Comment on above: Performed By: #### P REGU #### [facility] [address] [place] [address] Dr. Jaz Barajas EGFR-NON AF SAMMARINESE >60 Normal >=60 [facility] Comment on above: Performed By: #### P REGU #### [facility] [address] [place] [address] Dr. Jaz Barajas Globulin (S) [Mass/Vol] 3.9 g/dL Normal [facility] Comment on above: Performed By: #### P REGU #### [facility] [address] [address] [address] Jaz Barajas Glucose [Mass/Vol] 230 mg/dL Critically high 74-106 T [facility] Comment on above: Performed By: #### P REGU #### [facility] [address] [address] [address] Jaz Barajas Potassium [Moles/Vol] 4.0 mmol/L Normal 3.5-5.1 [facility] Comment on above: Performed By: #### P REGU #### [facility] [address] [address] [address] Jaz Barajas Protein [Mass/Vol] 7.1 g/dL Normal 6.4-8.2 [facility] Comment on above: Performed By: #### P REGU #### [facility] [address] [address] [address] Jaz Barajas Sodium [Moles/Vol] 135 mmol/L Critically low 136-145 Th [facility] Comment on above: Performed By: #### P REGU #### [facility] [address] [address] [address] Jaz Barajas Urea nitrogen [Mass/Vol] 15.0 mg/dL Normal 7.0-18.0 [facility] Comment on above: Performed By: #### P REGU #### [facility] [address] [address] [address] Jaz Barajas Urea nitrogen/Creatinin e [Mass ratio] 17.4 mg/mg Normal [facility] Comment on above: Performed By: #### P REGU #### [facility] [address] [address] [address] Jaz Barajas PROTIMEon 01-09-2022 INR Coag (PPP) [Relative time] 0.96 {INR} Normal [facility] Comment on above: Performed By: #### D DIM, PT, PTT #### [facility] [address] [address] [address] Jaz Barajas INR GUIDELINES SEE BELOW Normal [facility] Comment on above: Result Comment: UMU RED INR: 2.0 - 3.0 CONDITIONS NOT LISTED BELOW 2.5 - 3.5 FOR PROSTHETIC HEART VALVE REPLACEMENT 2.5 - 3.5 RECURRENT THROMBOSIS Performed By: #### D DIM, PT, PTT #### [facility] [address] [place] [address] Dr. Jaz Barajas PT Coag (PPP) [Time] 10.4 s Normal 9.0-11.6 [facility] Comment on above: Performed By: #### D DIM, PT, PTT #### [facility] [address] [place] [address] Dr. Jaz Barajas PTTon 01-09-2022 aPTT Coag (Bld) [Time] 28.8 s Normal 22.3-36.2 [facility] Comment on above: Performed By: #### D DIM, PT, PTT #### [facility] [address] [place] [address] Dr. Jaz Barajas TROPONIN, HIGH SENSITIVITYon 01-09-2022 HSTROP 4.5 pg/mL Normal 4.0-51.3 [facility] Comment on above: Result Comment: CUT- OFF POINTS HAVE BEEN ESTABLISHED BASED ON THE FOURTH UNIVERSAL DEFINITIONS OF MYOCARDIAL INFARCTION. THE UPPER REFERENCE LIMIT (URL) OF TROPONIN, DEFINED THE 99TH PERCENTILE OF cTnI DISTRIBUTION IN A REFERENCE POPULATION, HAS BEEN CONFIRMED THE DECISION THRESHOLD FOR TX DIAGNOSIS. Performed By: #### P ROGLCM #### [facility] [address] [place] [address] Dr. Jaz Barajas TSHon 01-09-2022 TSH 2.769 uIU/mL Normal 0.358-3.740 [facility] Comment on above: Performed By: #### P REGU #### [facility] [address] [place] [address] Dr. Jaz Barajas TSH RANGE SEE BELOW Normal [facility] Comment on above: Result Comment: <0.3 4 UIU/ml HYPERTHYROID 0.34-5.60 UIU/ml EUTHYROID >5.60 UIU/ml HYPOTHYROID Performed By: #### P REGU #### [facility] [address] [place] [address] Dr. Jaz Barajas XR CHEST 1 Von [...] JOSE EDUARDO RIVERS Date: 2022-01-09 08:29 Normal [facility] Vital Signs Date Time Vital Sign Value Performing Clinician Howard girard 11-27-2023 12:54-0400 Body temperature 97.88 [degF] Riky Le [facility] 11-27-2023 12:54-0400 Diastolic blood pressure 86 mm[Hg] Riky Le [facility] 11-27-2023 12:54-0400 Heart rate 78 /min Riky Le [facility] 11-27-2023 12:54-0400 Respiratory rate 20 /min Riky Le [facility] 11-27-2023 12:54-0400 SaO2% (BldA) [Mass fraction] 98 % Riky Le [facility] 11-27-2023 12:54-0400 Systolic blood pressure 133 mm[Hg] Riky Le [facility] Encounters Encounter Date Encounter Type Care Provider Facility Start: 12-25-2023 End: 12-25-2023 ambulatory ARIANE WELLS Not Available Start: 11-27-2023 End: 11-27-2023 Emergency department patient [place] Riky Le [place] [place]: 11-27-2023 End: 11-27-2023 Emergency department patient visit Riky Le [facility] Start: 12-14-2022 End: 12-15-2022 ambulatory FORREST STEELEMJShell Facility:[facility] Start: 12-11-2022 End: 12-12-2022 ambulatory [employer] ARIANE AICBrendaMJZ Facility:[facility] Start: 11-15-2022 End: 11-15-[address] SKY DAVIS . Facility:[facility] Start: 11-10-2022 End: 11-10-[address] QUANG LANDA . Facility:[facility] Start: 08-18-2022 End: 08-18-2022 ambulatory GABINO CARROLL . Facility:[facility] Start: 07-09-2022 End: 07-09-[address] SKY DAVIS . Facility:[facility] Start: 05-14-2022 End: 05-14-2022 ambulatory FORREST WHITFIELD CORETTABrendaISABELLA Facility:[facility] Start: 05-13-2022 Encounter for preprocedural laboratory examination DR ROSA APONTE [facility] Start: 05-08-2022 End: 05-09-[address] ROSA APONTE Facility:[facility] Start: 05-08-2022 End: 05-09-2022 Encounter for preprocedural laboratory examination DR ROSA APONTE Facility:[facility]1 Start: 04-18-2022 End: 04-18-2022 ambulatory FORREST WHITFIELD CORETTABrendaMJShell Facility:[facility]1 Start: 04-01-2022 End: 04-02-2022 ambulatory FOREST ECOLOGY PROFESSOR ARIANE CORETTABrendaISABELLA Facility:[facility]1 Start: 02-06-2022 End: 02-07-2022 ambulatory FOREST ECOLOGY PROFESSOR ARIANE CORETTABrendaISABELLA Facility:[facility]1 Start: 01-31-2022 End: 02-01-2022 ambulatory AMINATA BOURGEOIS Facility:[facility] Start: 01-24-2022 ambulatory FOREST ECOLOGY PROFESSOR ARIANE CEDRICMJShell Facil ity:H1 Start: 01-09-2022 End: [...] Riky Le Tympanic ventilation tube (physical object) Riyk Le Payers Date Payer Category Payer Medicaid [id number] 2022 Medicaid [id number] 1990 Unknown [id number] 2.16.84 [id number] 1990 Unknown [id number] 2.16.84 0.1.273258.3.579.2.593 1988 Unknown [id number] 2.16.84 0.1.805329.3.579.2.593 1988 Unknown [id number] 2.16.84 0.1.491760.3.579.2.593 1988 Unknown [id number] 2.16.84 0.1.689881.3.579.2.593 1988 Unknown [id number] 2.16.84 0.1.132285.3.579.2.593 1988 Unknown [id number] 2.16.84 0.1.720536.3.579.2.593 1988 Unknown [id number] 2.16.84 0.1.184163.3.579.2.593 1988 Unknown [id number] 2.16.84 0.1.683634.3.579.2.593 1988 Unknown [id number] 2.16.84 0.1.950703.3.579.2.593 1988 Unknown [id number] 2.16.84 0.1.532964.3.579.2.593 1988 Unknown [id number] 2.16.84 0.1.023107.3.579.2.593 1988 Unknown [id number] 2.16.84 0.1.338922.3.579.2.593 1988 Unknown [id number] 2.16.8 40.1.237371.3.579.2.727 1988 Unknown [id number] 2.16.84 0.1.632415.3.579.2.1259 1959 Unknown [id number] 1959 Unknown [id number] Social History Date Type Detail Facility Start: 02-20-2022 Tobacco smoking status Heavy t obacco smoker (finding) General Surgery Karl Tobacco smoking status Never Gener al Surgery [place] Sex Assigned At Female [facility] Functional Status Date Assessment Result Facility 11-27-2023 Functional Status N/A [facility] Hospital Discharge instructions 11-27-2023 Note Date [...] to strengthen the arm. General instructions Take [id number] and prescription medicines only as told by [...] provider. Document Revised: 05/03/2022 Document Reviewed: 05/03/2022 Spinal Integration Patient Education 2022 [employer]. Follow Up Care 11/27/2023 12:54:30 With:Georgi Pfeiffer Address: [address] [place] [address]- Business (1) When:11/30/2023 15:21:31 [facility] Evaluation + Plan note 11-27-2023 Note Date & Type Note Facility 11-27-2023 Evaluation + Plan note Extrac gerard from: Title:ED Note Author:Steven Cardenas PA-C te:11/27/23 Pain in shoulder (M25.519: P [...] EDT, Weight Dosing XR Shoulder Complete Right [facility] Clinical Note 12-16-2022 Note Date & Type [...] authenticated by: HAYDE VAN Date: 2022-12-16 07:21 [facility] Clinical Note 12-16-2022 Note Date & [...] by: HAYDE VAN Date: 2022-12-16 07:17 [facility] Clinical Note 05-14-2022 Note Date & [...] the recovery room in good condition. [facility] Hospital course Narrative Note Date & Type Note Facility Hospital course Narrative No data available for this section [facility] Progress note Note Date & Type Note Facility Progress note No data available for this section [facility] Summary Purpose Family History No Family History Records Found No data available for this section No Family History Records FoundNo Family History Records Found Advance Directives No Advanced Directives Records FoundNo Advanced Directives Records FoundNo Advanced Directives Records Found Additional Source Comments INFORMATION SOURCE (unrecogn ized section and content) DATE CREATED AUTHOR 12/19/2022 [facility] DATE CREATED AUTHOR AUTHOR'S ORGANIZ ATION 11/29/2023 [facility] DATE CREATED AUTHOR AUTHOR'S ORGANIZ ATION 12/27/2023 [facility] Patient Care team shaila n (unrecognized section and content) Personnel Name: BLAS FORRESTARIANE Address: Address: [address] [place] [address] FOR RECORDS PERTAINING TO PATIENTS WHO ARE [...] BE BASED ON THE PRIMARY CLINICAL RECORDS. [facility] [employer] provides no warranty or guarantee of the accuracy or completeness of information in this document.
--- NOTE | 2024-01-17 15:16 | ED.ABDPAIN1 ---
HPI - Abdominal Pain General Chief Complaint: Abdominal Pain Stated Complaint: HERNIA Time Seen by Provider: 01/17/24 15:07 Source: patient and family Mode of arrival: walk-in Limitations: no limitations History of Present Illness HPI narrative: This patient is here with her complaining of abdominal pain. It started this morning, she thought it might be the beginning of her menses. But now she is tender right around the periumbilical area. She is known to have a umbilical hernia and she believes that she has seen both Dr. Foster and Dr. Vázquez's in the past but they did not advise eyes surgery at the time because it was small. She had a normal bowel movement before coming to the emergency room. She does have some nausea but no vomiting today. She has not had any other surgeries to the abdomen. She does not have any inguinal hernias or discomfort. She has no pain in the epigastric or the right upper quadrant. Related Data Home Medications ?Medication ?Instructions ?Recorded ?Confirmed aripiprazole 10 mg tablet 10 mg PO QDAY 02/04/23 02/04/23 buspirone 10 mg tablet 10 mg PO BID 02/04/23 02/04/23 calcium carbonate (Calcium 600) 600 mg PO DAILY 02/04/23 02/04/23 calcium phosphate,dibasic 77 1 tab PO QDAY 02/04/23 02/04/23 mg-vitamin D3 400 unit tablet empagliflozin 10 mg tablet 10 mg PO DAILY 02/04/23 02/04/23 (Jardiance) fluoxetine 40 mg capsule 40 mg PO QDAY 02/04/23 02/04/23 insulin regular hum U-500 conc 500 60 unit subcut TID 02/04/23 02/04/23 unit/mL(3 mL) subcut pen (Humulin R U-500 (Conc) Insulin Kwikpen) magnesium 250 mg tablet 250 mg PO DAILY 02/04/23 02/04/23 metformin 1,000 mg tablet 1,000 mg PO BID 02/04/23 02/04/23 pantoprazole 40 mg tablet,delayed 40 mg PO Q12H PRN indigestion 02/04/23 02/04/23 release spironolactone 50 mg tablet 50 mg PO QDAY 02/04/23 02/04/23 trazodone 50 mg tablet 50 mg PO DAILY 02/04/23 02/04/23 amoxicillin 875 mg-potassium 1 tab PO BID 04/22/23 04/22/23 clavulanate 125 mg tablet Allergies Allergy/AdvReac Type Severity Reaction Status Date / Time prednisone AdvReac Severe hyperglycem Verified 04/22/23 19:08 [facility] Social History Smoking status: Current every day smoker Exam Narrative Exam Narrative: Awake alert she is moving about. She he did have a fever. Her vital signs are stable. Examination of the abdomen and I do not see any other surgical incisions. When she tenses her abdominal musculature I can appreciate the periumbilical hernia but it is not tender and there is no peritoneal findings. I do not believe she has incarceration or strangulation. She does not have any tenderness in the lower quadrants of the abdomen or in the inguinal area. Constitutional Vital Signs, click to edit/add: Last Vital Signs Temp 98.2 F 01/17/24 15:00 Pulse 68 01/17/24 15:00 Resp 18 01/17/24 15:00 BP 138/68 01/17/24 15:00 Pulse Ox 100 01/17/24 15:00 O2 Del Method Room Air 01/17/24 15:00 Course Vital Signs Vital signs: Vital Signs Temperature 98.2 F 01/17/24 15:00 Pulse Rate 68 01/17/24 15:00 Respiratory Rate 18 01/17/24 15:00 Blood Pressure 138/68 01/17/24 15:00 Pulse Oximetry 100 01/17/24 15:00 Oxygen Delivery Method Room Air 01/17/24 15:00 Temperature 98.2 F 01/17/24 15:00 Pulse Rate 68 01/17/24 15:00 Respiratory Rate 18 01/17/24 15:00 Blood Pressure 138/68 01/17/24 15:00 Pulse Oximetry 100 01/17/24 15:00 Oxygen Delivery Method Room Air 01/17/24 15:00 MDM - Abdominal Pain MDM Narrative Medical decision making narrative: CT scan was done to define the extent of this hernia that I can palpate. There is a little bit of fat in the hernia but no other acute findings. This was explained to the patient. If she has recurring problems with that she should follow-up with the surgeons that she is I see to the head her laboratory test show her white cell count was normal. Lab Data Labs: Lab Results 01/17/24 Range/Units 15:25 WBC 10.4 (4.0-11.0) 10^3/uL RBC 4.37 (4.20-5.40) 10^6/uL Hgb 11.9 L (12.0-16.0) g/dL Hct 36.4 (36.0-48.0) % MCV 83.3 (81.0-99.0) fL MCH 27.2 (26.7-34.0) pg MCHC 32.7 (29.9-35.2) g/dL RDW 13.0 (11.0-15.0) % Plt Count 269 (150-450) 10^3/uL MPV 11.1 (9.5-13.5) fL Neut % (Auto) 57.9 (43.0-75.0) % Lymph % (Auto) 33.6 (20.5-60.0) % [facility] % (Auto) 6.4 (1.7-12.0) % Eos % (Auto) 1.3 (0.9-7.0) % Baso % (Auto) 0.6 (0.2-2.0) % Neut # (Auto) 6.0 (1.4-6.5) 10^3/uL Lymph # (Auto) 3.5 (1.2-3.8) 10^3/uL [facility] # (Auto) 0.7 (0.3-0.8) 10^3/uL Eos # (Auto) 0.1 (0.0-0.7) 10^3/uL Baso # (Auto) 0.1 (0.0-0.1) 10^3/uL Abs Immat Gran (auto) 0.02 (0.00-0.03) 10^3/uL Imm/Tot Granulo (auto) 0.2 (0.0-0.5) % Sodium 134 L (136-145) mmol/L Potassium 4.1 (3.5-5.1) mmol/L Chloride 100 (98-107) mmol/L Carbon Dioxide 26.9 (21.0-32.0) mmol/L Anion Gap 11.2 BUN 13.0 (7.0-18.0) mg/dL Creatinine 0.73 (0.55-1.02) mg/dL Est GFR ( Amer) >60 (>=60) Est GFR (Non-Af Amer) >60 (>=60) BUN/Creatinine Ratio 17.8 Glucose 220 H (74-106) mg/dL Calcium 9.4 (8.5-10.1) mg/dL Discharge Plan Discharge Stand Alone Forms: Portal Instructions Chief Complaint: Abdominal Pain Clinical Impression: Hernia, umbilical Patient Disposition: Home, Self-Care Time of Disposition Decision: 16:57 Prescriptions / Home Meds: No Action metformin 1,000 mg tablet 1,000 mg PO BID Jardiance 10 mg tablet 10 mg PO DAILY aripiprazole 10 mg tablet 10 mg PO QDAY buspirone 10 mg tablet 10 mg PO BID trazodone 50 mg tablet 50 mg PO DAILY fluoxetine 40 mg capsule 40 mg PO QDAY spironolactone 50 mg tablet 50 mg PO QDAY calcium phos,dibas-vitamin D3 77-400 mg-unit tablet 1 tab PO QDAY pantoprazole 40 mg tablet,delayed release (DR/EC) 40 mg PO Q12H PRN (Reason: indigestion) magnesium 250 mg tablet 250 mg PO DAILY calcium carbonate [Calcium 600] 600 mg calcium (1,500 mg) tablet 600 mg PO DAILY Humulin R U-500 (Conc) Kwikpen 500 unit/mL (3 mL) insulin pen 60 unit SUBCUT TID Rx Instructions: with sliding scale amoxicillin-pot clavulanate 875-125 mg tablet 1 tab PO BID Print Language: South African Additional Instructions: Follow-up with your local surgeon. Return if symptoms would worsen with protracted vomiting and severe pain Referrals: Ariane Wells ACCOUNTS OFFICER [Primary Care Provider] - 1 week
--- NOTE | 2024-01-17 15:17 | CT_ITS ---
The [address] [address] Patient Name: MARILIA OSBORNE MRN: [id number] date: 1990 Sex: F Assigned Patient Location: ER Current Patient Location: ER Accession/Order Number: [id number] Exam Date: 01/17/2024 15:52 Report Date: 01/17/2024 16:26 At the request of: KLAUDIA MADRIGAL Procedure: CT abdomen pelvis w con EXAMINATION: CT abdomen pelvis w con, 01/17/2024 3:52 PM EDT HISTORY: Umbilical hernia pain COMPARISON: 06/21/2023 TECHNIQUE: CT of the abdomen, and pelvis was performed following administration of IV contrast. Oral contrast was not administered prior to the examination. Dose reduction techniques were achieved by using automated exposure control and/or adjustment of mA and/or kV according to patient size and/or use of iterative reconstruction technique. FINDINGS: Lung Bases: 5 mm right lower lobe pulmonary nodules unchanged since at least 11/15/2022. No acute findings in the visualized lower chest. Liver: Normal. Biliary tree: Normal. Gallbladder: Normal. Spleen: Upper limits normal size. Pancreas: Normal. Adrenal glands: Normal. Kidneys and ureters: Normal. Bladder: Normal. Reproductive organs: Uterus is grossly unremarkable. No suspicious adnexal mass. Gastrointestinal tract: Nondilated. The appendix is normal. Peritoneum/retroperitoneum: No free fluid or gas. Vasculature: Patent. No abdominal aortic aneurysm. Lymph nodes: Normal. Abdominal wall: Small fat-containing umbilical hernia, hernia neck measures approximately 2.2 x 1.3 cm in diameter. Musculoskeletal: No acute findings. CT/CT abdomen pelvis w con IMPRESSION: 1. No acute findings within the abdomen and pelvis. 2. Small fat-containing umbilical hernia. Electronically authenticated by: MICAH MONAHAN Date: 01/17/2024 16:26
[2024-01-17 15:34] LABS: Basophils Absolute Auto 0.1 10^3/uL (0.0-0.1); Basophils Percent Auto 0.6 % (0.2-2.0); Eosinophils Absolute Auto 0.1 10^3/uL (0.0-0.7); Eosinophils Percent Auto 1.3 % (0.9-7.0); Hematocrit 36.4 % (36.0-48.0); Hemoglobin 11.9 g/dL (12.0-16.0); Immature Granulocytes Abs Auto 0.02 10^3/uL (0.00-0.03); Immature Granulocytes Pct Auto 0.2 % (0.0-0.5); Lymphocytes Absolute Auto 3.5 10^3/uL (1.2-3.8); Lymphocytes Percent Auto 33.6 % (20.5-60.0); Mean Corpuscular HGB Conc 32.7 g/dL (29.9-35.2); Mean Corpuscular Hemoglobin 27.2 pg (26.7-34.0); Mean Corpuscular Volume 83.3 fL (81.0-99.0); Mean Platelet Volume 11.1 fL (9.5-13.5); Monocytes Absolute Auto 0.7 10^3/uL (0.3-0.8); Monocytes Percent Auto 6.4 % (1.7-12.0); Neutrophils Percent Auto 57.9 % (43.0-75.0); Platelet Count 269 10^3/uL (150-450); Red Blood Count 4.37 10^6/uL (4.20-5.40); White Blood Count 10.4 10^3/uL (4.0-11.0)
[2024-01-17 15:43] LABS: Anion Gap 11.2; BUN Creatinine Ratio 17.8; Calcium 9.4 mg/dL (8.5-10.1); Carbon Dioxide 26.9 mmol/L (21.0-32.0); Chloride 100 mmol/L (98-107); Estimated GFR (African America >60 (>=60); Estimated GFR (Non-African Ame >60 (>=60); Glucose 220 mg/dL (74-106); Potassium 4.1 mmol/L (3.5-5.1); Sodium 134 mmol/L (136-145)
== END 2024-01-17 17:29 | disposition home or self-care (01) ==
PROVIDERS: Emergency Provider Emergency Medicine Emergency Medical Services; PCP Nurse Practitioner
DX: K42.9 Umbilical hernia without obstruction or gangrene (principal); Z79.899 Other long term (current) drug therapy; Z79.84 Long term (current) use of oral hypoglycemic drugs; Z79.4 Long term (current) use of insulin; F17.210 Nicotine dependence, cigarettes, uncomplicated
CPT/HCPCS: 36415; 74177; 80048; 85025; 99285; Q9967

== ENCOUNTER 2024-02-02 13:02 | Outpatient (OUT) | payer MEDICAID, SELFPAY ==
--- NOTE | 2024-02-02 14:00 | P.CN_ITS ---
Consult Note: HPI Data of Consult Patient: new to practice Consult date: 02/02/24 Requesting Physician: Rush Garcia MD Primary Care Provider: Ariane Wells NP Consult Narrative Reason for consult: right neck, shoulder, arm pain Narrative: 33yof who presents for evaluation. several months of worsening right neck, shoulder, and arm pain that is worsened with activity. states that she initially felt something pop or tear in her right neck and shoulder area, which caused significant burning pain. 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 right shoulder xr did not show acute pathology. has engaged in a series of provider directed home exercises for right shoulder and neck pain for >6 weeks, without significant change. has tried muscle relaxer and celebrex, without significant benefit. denies adverse med side effects. cc:: CC: Rush Garcia MD Review of Systems ROS Status of ROS 10 or more systems reviewed and unremark able except as noted in history and below PFSH PFSH Social History Smoking status: Current every day smoker Meds Home Medications and Allergies Home Medications ?Medication ?Instructions ?Recorded ?Confirmed ?Type aripiprazole 10 mg tablet 10 mg PO QDAY 02/04/23 02/04/23 History buspirone 10 mg tablet 10 mg PO BID 02/04/23 02/04/23 History calcium carbonate (Calcium 600) 600 mg PO DAILY 02/04/23 02/04/23 History calcium phosphate,dibasic 77 1 tab PO QDAY 02/04/23 02/04/23 History mg-vitamin D3 400 unit tablet empagliflozin 10 mg tablet 10 mg PO DAILY 02/04/23 02/04/23 History (Jardiance) fluoxetine 40 mg capsule 40 mg PO QDAY 02/04/23 02/04/23 History insulin regular hum U-500 conc 500 60 unit subcut TID 02/04/23 02/04/23 History unit/mL(3 mL) subcut pen (Humulin R U-500 (Conc) Insulin Kwikpen) magnesium 250 mg tablet 250 mg PO DAILY 02/04/23 02/04/23 History metformin 1,000 mg tablet 1,000 mg PO BID 02/04/23 02/04/23 History pantoprazole 40 mg tablet,delayed 40 mg PO Q12H PRN indigestion 02/04/23 02/04/23 History release spironolactone 50 mg tablet 50 mg PO QDAY 02/04/23 02/04/23 History trazodone 50 mg tablet 50 mg PO DAILY 02/04/23 02/04/23 History amoxicillin 875 mg-potassium 1 tab PO BID 04/22/23 04/22/23 History clavulanate 125 mg tablet Allergies Allergy/AdvReac Type Severity Reaction Status Date / Time prednisone AdvReac Severe hyperglycem Verified 04/22/23 19:08 ia Exam Narrative Exam Narrative: Psych-alert and oriented x 3.? Attentive and appropriate, constitutionally normal, displays normal mood and affect per situation.? There are no obvious deficits in memory, reasoning, or intellect.? Skin-no obvious rashes, bruising, or erythema noted to the patient's area of pain.? Extremities-upper extremities are warm with minimal edema and palpable pulses. Cervical- tenderness to palpation noted in the cervical spine and paraspinal musculature.? Pain is elicited with flexion, extension, and lateral rotation of the cervical spine.? Range of motion is diminished due to pain. Facet loading maneuvers are negative.? Strength-unremarkable and within normal limits with the exception to the right biceps, triceps. Sensory-no notable sensory deficits in the bilateral upper extremities to touch or pinprick with the exception to decreased sensation to the right C5, 6, 7 dermatomal distribution.? Coordination remains intact.? Gait remains non-antalgic. Assessment and Plan Assessment and Plan (1) Cervical stenosis of spinal canal: (2) Cervical radiculopathy: Plan 33yof who presents for evaluation. failed conservative measures, as noted. given persistence of symptoms and imaging findings, suspect that this could be related to cervical spine. will have her undergo cervical mri without contrast. she is in agreement. meds reviewed, will trial gabapentin 100mg tid. follow up after imaging.
== END 2024-02-02 13:03 | disposition home or self-care (01) ==
LOC: PM 13:03
PROVIDERS: PCP Nurse Practitioner; Visit Provider Anesthesiology
DX: M48.02 Spinal stenosis, cervical region (principal); M54.12 Radiculopathy, cervical region
CPT/HCPCS: G0463

== ENCOUNTER 2024-02-17 13:46 | Emergency (ER) | payer MEDICAID, SELFPAY ==
[2024-02-17 13:58] VITALS: BP 139/86; PULSE 68; TEMP 36.6; O2SAT 98; BMI 44.3
--- NOTE | 2024-02-17 14:08 | ED.GENADUL1 ---
HPI HPI - General Adult General Chief complaint: Headache Stated complaint: HEADACHE, VOMITING, DIZZY Time Seen by Provider: 02/17/24 14:08 Source: patient Mode of arrival: walk-in Limitations: no limitations History of Present Illness HPI narrative: This patient is here complaining of a headache. Its mostly on the right side of her frontal temporal and lateral neck area. I reviewed many of her medical records before she was examined. She is currently under pain management for cervical stenosis and is actually scheduled to have an MRI in about a week or so. She thinks that that might be contributing a little bit to her headache. She says she also describes some flashing lights and ribbons of light. This been noted in both eyes. The headache started gradually on Friday and she is just not been able to shake it. It was not explosive in onset. She did not have double vision loss of vision any localized neurological weakness. She is taking gabapentin for the neck problems it is helping a little bit. She says she has been drinking plenty of water and fluids over the last several days and voiding normal amounts so she does not believe she is dehydrated. Related Data Home Medications ?Medication ?Instructions ?Recorded ?Confirmed aripiprazole 10 mg tablet 10 mg PO QDAY 02/04/23 02/17/24 buspirone 10 mg tablet 10 mg PO BID 02/04/23 02/17/24 calcium carbonate (Calcium 600) 600 mg PO DAILY 02/04/23 02/17/24 calcium phosphate,dibasic 77 1 tab PO QDAY 02/04/23 02/17/24 mg-vitamin D3 400 unit tablet fluoxetine 40 mg capsule 40 mg PO QDAY 02/04/23 02/17/24 insulin regular hum U-500 conc 500 60 unit subcut TID 02/04/23 02/17/24 unit/mL(3 mL) subcut pen (Humulin R U-500 (Conc) Insulin Kwikpen) magnesium 250 mg tablet 250 mg PO DAILY 02/04/23 02/17/24 pantoprazole 40 mg tablet,delayed 40 mg PO Q12H PRN indigestion 02/04/23 02/17/24 release spironolactone 50 mg tablet 50 mg PO QDAY 02/04/23 02/17/24 trazodone 50 mg tablet 50 mg PO DAILY 02/04/23 02/17/24 cholecalciferol (vitamin D3) 50 2,000 unit PO DAILY 02/02/24 02/17/24 mcg (2,000 unit) tablet (Vitamin D3) empagliflozin 25 mg tablet 25 mg PO DAILY 02/02/24 02/17/24 (Jardiance) gabapentin 100 mg capsule 100 mg PO TID 02/02/24 02/17/24 metformin 500 mg tablet 500 mg PO BID 02/02/24 02/17/24 Allergies Allergy/AdvReac Type Severity Reaction Status Date / Time prednisone AdvReac Severe hyperglycem Verified 04/22/23 19:08 ia Opioid HPI Opioid Management Most Recent Opioid Data: Last Pain Scale 8 02/17/24 14:09 PFSH PFSH Social History Smoking status: Current every day smoker Exam Narrative Exam Narrative: Awake alert does not appear dehydrated clinical vital signs normal. Skin integument show no evidence of dehydration there is no petechiae purpura rash or exanthem. Neck is soft and supple there is very mild restriction in range of motion at this time. There is no nuchal rigidity or meningeal irritation. Neurological examination shows cranial nerves II to XII to be normal extraocular muscles are normal. [id number]-[id number] is normal. Deep tendon reflexes in the upper extremities are symmetrical. Does not really have any muscle weakness of the upper limbs at this time despite her history of cervical stenosis. Constitutional Vital Signs, click to edit/add: Last Vital Signs Temp 97.9 F 02/17/24 13:58 Pulse 68 02/17/24 13:58 Resp 18 02/17/24 13:58 BP 139/86 02/17/24 13:58 Pulse Ox 98 02/17/24 13:58 O2 Del Method Room Air 02/17/24 13:58 Course Vital Signs Vital signs: Vital Signs Temperature 97.9 F 02/17/24 13:58 Pulse Rate 68 02/17/24 13:58 Respiratory Rate 18 02/17/24 13:58 Blood Pressure 139/86 02/17/24 13:58 Pulse Oximetry 98 02/17/24 13:58 Oxygen Delivery Method Room Air 02/17/24 13:58 Temperature 97.9 F 02/17/24 13:58 Pulse Rate 68 02/17/24 13:58 Respiratory Rate 18 02/17/24 13:58 Blood Pressure 139/86 02/17/24 13:58 Pulse Oximetry 98 02/17/24 13:58 Oxygen Delivery Method Room Air 02/17/24 13:58 Medical Decision Making MDM Narrative Medical decision making narrative: The patient was offered intramuscular treatment or intravenous treatment. She is opted for the latter. She will have to have a ride home. She says she is prefer not to have any steroid because it drives her sugar high. After the advised recommendations and treatments she feels much better. She is having a ride that will come and pick her up. She did request a work note. Discharge Plan Discharge Stand Alone Forms: Portal Instructions Chief Complaint: Headache Clinical Impression: Headache Patient Disposition: Home, Self-Care Time of Disposition Decision: 15:34 Prescriptions / Home Meds: No Action aripiprazole 10 mg tablet 10 mg PO QDAY buspirone 10 mg tablet 10 mg PO BID trazodone 50 mg tablet 50 mg PO DAILY fluoxetine 40 mg capsule 40 mg PO QDAY spironolactone 50 mg tablet 50 mg PO QDAY calcium phos,dibas-vitamin D3 77-400 mg-unit tablet 1 tab PO QDAY pantoprazole 40 mg tablet,delayed release (DR/EC) 40 mg PO Q12H PRN (Reason: indigestion) magnesium 250 mg tablet 250 mg PO DAILY calcium carbonate [Calcium 600] 600 mg calcium (1,500 mg) tablet 600 mg PO DAILY Humulin R U-500 (Conc) Kwikpen 500 unit/mL (3 mL) insulin pen 60 unit SUBCUT TID Rx Instructions: with sliding scale Jardiance 25 mg tablet 25 mg PO DAILY metformin 500 mg tablet 500 mg PO BID cholecalciferol (vitamin D3) [Vitamin D3] 50 mcg (2,000 unit) tablet 2,000 unit PO DAILY gabapentin 100 mg capsule 100 mg PO TID Print Language: Frisian Additional Instructions: Complete rest and quiet today. No television TV or other electronic devices. Drink additional fluids and take 3 ibuprofen upon arriving home Referrals: Ariane Wells CITIZENSHIP INSTRUCTOR [Primary Care Provider] - 1 week
[2024-02-17] MEDS: ONDANSETRON PF 4 MG/2 ML VIAL IV (14:37)
[2024-02-17] MEDS: KETOROLAC TROMETHAMINE 30 MG/ML VIAL IVP (14:37)
[2024-02-17] MEDS: SODIUM CHLORIDE 0.9% IV (14:37)
[2024-02-17] MEDS: DIPHENHYDRAMINE HCL IV (14:37)
== END 2024-02-17 15:41 | disposition home or self-care (01) ==
PROVIDERS: Emergency Provider Emergency Medicine Emergency Medical Services; PCP Nurse Practitioner
DX: R51.9 Headache, unspecified (principal); F17.200 Nicotine dependence, unspecified, uncomplicated
CPT/HCPCS: 96365; 96375; 99284; J1200; J1885; J2405

== ENCOUNTER 2024-02-24 15:30 | Outpatient (OUT) | payer MEDICAID, SELFPAY ==
--- NOTE | 2024-02-24 15:35 | MR_ITS ---
The [address] [address] Patient Name: MARILIA OSBORNE MRN: [id number] date: 1990 Sex: F Assigned Patient Location: MRI Current Patient Location: Accession/Order Number: [id number] Exam Date: 02/24/2024 15:40 Report Date: 02/25/2024 00:07 At the request of: DONAVAN CARDENAS Procedure: MR cervical spine wo con EXAM: MR cervical spine wo con HISTORY: Cervical Radiculopathy COMPARISON: None. TECHNIQUE: Sagittal T1, T2, STIR, axial T2, and T2 gradient echo images of the cervical spine were obtained. FINDINGS: The vertebral body heights are preserved. There is mild reversal of the normal cervical lordosis, centered at C3-4 level. No significant disc space narrowing is seen. There is no subluxation identified. The bone marrow signal intensity appears normal. The craniovertebral junction appears grossly within normal limits. The signal intensity of the cervical spinal cord appears grossly within normal limits. There are multilevel mild marginal spurring. At C3-4 level, there is a small left foraminal disc protrusion and mild left-sided uncovertebral joint hypertrophy, resulting in mild left neural foraminal narrowing. No spinal canal stenosis. At C4-5 level, there is left paracentral/foraminal disc protrusion and uncovertebral osteophyte. No spinal canal stenosis. Moderate left neural foraminal narrowing is identified. No significant disc protrusion, spinal canal stenosis, or foraminal narrowing is seen at other levels. MR/MR cervical spine wo con IMPRESSION: Left paracentral /foraminal disc protrusion and uncovertebral osteophyte at the C4-5 level, causing moderate left neural foraminal narrowing. Small left foraminal disc protrusion and mild uncovertebral osteophyte at C3-4 level, resulting in mild left neural foraminal narrowing. No neural foraminal narrowing at other levels. No spinal canal stenosis at any level. Mild reversal of the normal cervical lordosis, centered at C3-4 level Electronically authenticated by: CORNELIA POSADA Date: 02/25/2024 00:07
--- OUTSIDE RECORDS SUMMARY | 2024-02-24 15:43 | XMS_ITS ---
Patient Summarization (C-CDA 2.1 CCD) Created on: February 24, 2024 Johnson Vera : 1990 Sex: Female Author Organization Sample organization Care Team Providers Care Production Machine Tender Name Role Phone AICHHOLZ, TEST BORER HELPER ARIANE Attending Unavailable AICHHOLZ, TEST BORER HELPER ARIANE Admitting Unavailable AICHHOLZ, TEST BORER HELPER ARIANE Primary Care Unavailable JOSE EDUARDO RIVERS V Consulting Unavailable AICHHOLZ, TEST BORER HELPER ARIANE Consulting Unavailable TIMMIS, DR MEJIA Consulting Unavailable AICHHOLZ, TEST BORER HELPER ARIANE Primary Care Unavailable TIMMIS, DR MEJIA Attending Unavailable TIMMIS, DR MEJIA Admitting Unavailable BRIGGSMAGDI Consulting Unavailable PAY ., DR SWANSON Admitting Unavailable PAY ., DR SWANSON Consulting Unavailable AICHHOLZ, TEST BORER HELPER ARIANE Primary Care Unavailable PAY ., DR SWANSON Attending Unavailable AICHHOLZ, TEST BORER HELPER ARIANE Primary Care Unavailable REINECK, DR KLAUDIA Kay Attending Unavailabl e REINECK, DR KLAUDIA Kay Admitting Unavailabl e REINECK, DR KLAUDIA Kay Consulting Unavailabl e JEYSON BLANTON Consulting Unavailable AICHHOLZ, TEST BORER HELPER ARIANE Primary Care Unavailable GABINO MUÑOZ Attending Unavailable GLEN ., GABINO Admitting Unavailable AICHHOLZ, TEST BORER HELPER ARIANE Primary Care Unavailable JOSE EDUARDO RIVERS V Consulting Unavailable JEYSON BLANTON Consulting Unavailable GABINO MUÑOZ Consulting Unavailable PAY ., DR SWANSON Admitting Unavailable PAY ., DR SWANSON Consulting Unavailable AICHHOLZ, TEST BORER HELPER ARIANE Primary Care Unavailable PAY ., DR SWANSON Attending Unavailable GERALDINE LAZAR Consulting Unavailable CORDELL ., DR DEL RIO Attending Unavailable HAY ., DR DEL RIO Admitting Unavailable AICHHOLZ, TEST BORER HELPER ARIANE Primary Care Unavailable HAY ., DR DEL RIO Consulting Unavailable GLEN .GABINO Attending Unavailable GLEN ., GABINO Admitting Unavailable AICHHOLZ, TEST BORER HELPER ARIANE Primary Care Unavailable DONTRELL DIAZ Consulting Unavailable GLEN .GABINO Consulting Unavailable JOSE EDUARDO RHODES Consulting Unavailable AICHHOLZ, TEST BORER HELPER ARIANE Referring Unavailable AICHHOLZ, TEST BORER HELPER ARIANE Primary Care Unavailable YUKI, AHMAD Attending Unavailable YUKI, AHMAD Admitting Unavailable YUKI, AHMAD Consulting Unavailable AICHHOLZ, TEST BORER HELPER ARIANE Consulting Unavailable AICHHOLZ, TEST BORER HELPER ARIANE Attending Unavailable AICHHOLZ, TEST BORER HELPER ARIANE Admitting Unavailable AICHHOLZ, TEST BORER HELPER ARIANE Primary Care Unavailable HAYDE VAN Consulting Unavailable AICHHOLZ, TEST BORER HELPER ARIANE Consulting Unavailable AICHHOLZ, TEST BORER HELPER ARIANE Attending Unavailable AICHHOLZ, TEST BORER HELPER ARIANE Admitting Unavailable AICHHOLZ, TEST BORER HELPER ARIANE Primary Care Unavailable AMINATA BOURGEOIS Attending Unavailable BK, AMINATA Admitting Unavailable JEYSON BLANTON Consulting Unavailable AICHHOLZ, TEST BORER HELPER ARIANE Primary Care Unavailable BKMONALISAA Consulting Unavailable AICHHOLZ, TEST BORER HELPER ARIANE Primary Care Unavailable FADI, DR MEJIA Consulting Unavailable TIMMIS, DR MEJIA Attending Unavailable TIMMIS, DR MEJIA Admitting Unavailable ELIDA COWAN Consulting Unava ilable AICHHOLZ, ARIANE J Primary Care Physician Riky Le Attending Unavailable AICHHOLZ, ARIANE Attending Unavailable AICHHOLZ, ARIANE Attending Unavailable Jose LEUNG, Rush Reid Attending Unavailable Allergies Allergy Classification Reported Allergen(s) Allergy Type Date of Onset Reaction(s) Facility (2 sources) predniSONE; Translations: [predniSONE] Drug Allergy 0 [facility] Repository (1 source) predniSONE; Translations: [prednisone] Drug Allergy 0 Slurred speech (finding), Tremor (finding) [facility] [place] Encounters Encounter Date Encounter Type Care Provider Facility Start: 02-02-2024 End: 02-02-2024 ambulatory Rush Garcia MD Facility:[facility] Start: 01-15-2024 End: 01-15-2024 ambulatory ARIANE AICHHOLZ Not Available Start: 12-25-2023 End: 12-25-2023 ambulatory ARIANE AICHHOLZ Not Available Start: 11-27-2023 End: 11-27-2023 Emergency department patient visit Riky Le Facility:[facility] Start: 11-27-2023 End: 11-27-2023 Emergency department patient visit Riky Le [facility] Start: 12-14-2022 End: 12-15-2022 ambulatory TEST BORER HELPER ARIANE CEDRICISABELLA Facility:[facility] Start: 12-11-2022 End: 12-12-2022 ambulatory TEST BORER HELPER ARIANE CORETTABrendaISABELLA Facility:[facility] Start: 11-15-2022 End: 11-15-[address] SKY DAVIS . Facility:[facility] Start: 11-10-2022 End: 11-10-[address] QUANG LANDA . Facility:[facility] Start: 08-18-2022 End: 08-18-2022 ambulatory GABINO CARROLL . Facility:[facility] Start: 07-09-2022 End: 07-09-[address] SKY DAVIS . Facility:[facility] Start: 05-14-2022 End: 05-14-2022 ambulatory TEST BORER HELPER ARIANE CORETTABrendaISABELLA Facility:[facility] Start: 05-13-2022 Encounter for preprocedural laboratory examination DR ROSA APONTE [facility] Start: 05-08-2022 End: 05-09-[address] ROSA APONTE Facility:[facility] Start: 05-08-2022 End: 05-09-2022 Encounter for preprocedural laboratory examination DR ROSA APONTE Facility:[facility] Start: 04-18-2022 End: 04-18-2022 ambulatory TEST BORER HELPER ARIANE CORETTABrendaISABELLA Facility:[facility] Start: 04-01-2022 End: 04-02-2022 ambulatory TEST BORER HELPER ARIANE CORETTABrendaMJZ Facility:[facility] Start: 02-06-2022 End: 02-07-2022 ambulatory TEST BORER HELPER ARIANE CORETTABrendaMJZ Facility:[facility] Start: 01-31-2022 End: 02-01-2022 ambulatory AMINATA BOURGEOIS Facility:[facility] Start: 01-24-2022 ambulatory TEST BORER HELPER ARIANE CORETTABrendaISABELLA Facil ity:[facility] Start: 01-09-2022 End: 01-09-2022 ambulatory GABINO CARROLL . Facility: Medications Current Medications Medication Drug Class(es) Dates [...] Refills(s) 0 Start Date: 11/30/19 Status: Ordered Payers Date Payer Category Payer Medicaid [id number] 2023 Unknown 2022 Medicaid [id number] 1990 Unknown [id number] 2.16.84 0.1.085134.3.579.2.593 1990 Unknown [id number] 2.16.84 0.1.744613.3.579.2.593 1990 Unknown [id number] 2.16.84 0.1.330437.3.579.2.593 1990 Unknown [id number] 2.16.84 0.1.663358.3.579.2.593 1990 Unknown [id number] 2.16.84 0.1.652332.3.579.2.593 1990 Unknown [id number] 2.16.84 0.1.776611.3.579.2.593 1990 Unknown [id number] 2.16.84 0.1.521385.3.579.2.593 1988 Unknown [id number] 2.16.84 0.1.224779.3.579.2.593 1990 Unknown [id number] 2.16.84 0.1.367987.3.579.2.593 1988 Unknown [id number] 2.16.84 0.1.045495.3.579.2.593 1988 Unknown [id number] 2.16.84 0.1.345373.3.579.2.593 1988 Unknown [id number] 2.16.84 0.1.732818.3.579.2.593 1988 Unknown [id number] 2.16.84 0.1.754996.3.579.2.593 1988 Unknown [id number] 2.16.8 40.1.976984.3.579.2.727 1988 Unknown [id number] 2.16.84 0.1.416970.3.579.2.1259 1988 Unknown [id number] 2.16.84 0.1.626932.3.579.2.1259 1988 Unknown [id number] 2.16. 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 (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; Translations: [FPC CURRENT USE OF INSULIN] Onset: 11-11-2022 Episodic [...] Translations: [LOW BACK PAIN, UNSPECIFIED] Onset: 11-15-2022 Procedures Date Procedure Procedure Detail Performing Clinician Start: 12-04-2016 Colonoscopy Riky Rey Comment on above: normal Start: 11-11-2016 Nuclear medicine imaging procedure Riky Le Comment on above: HIDA scan- normal Start: 10-30-2016 Esophagogastroduodenoscopy Riky Rey Comment on above: esophagitis Start: 05-27-2016 Polysomnography Riky Rey Comment on above: CPAP @ 13cm H2O, small quattro, ramp yaquelin e 20 minutes Start: 09-01-1992 Tonsillectomy Rikychristian Le History of ankle surgery Kt Le Tympanic ventilation tube (physical object) Riky Le Tympanic ventilation tube (physical object) Riky Le Results Test Name Value Interpretation Reference Range Facility Formson 11-28-2023 Forms [id number]#1.00TIFF Normal [facility] Consent for Treatmenton 10-31 Consent for Treatment [id number]#1.00TIFF Normal [facility] Discharge Instructionson Discharge Instructions [id number]#1.00TIFF Normal [facility] ED Clinical Summaryon 2023 ED Clinical Summary [place] [address] ED Clinical Summary Person Information Name: JOHNSON VERA [facility] Age: 33 Years : 1990 Sex: Female Language: Romanian PCP: ARIANE WELLS CNP Marital Status: Visit [...] 11/27/2023 15:37:23 11/27/2023 15:37:23 11/27/2023 15:37:23 ADDRESS: [address] [place] [id number] PHYS DOC NOTES: MEDICAL INFORMATION: Prescriptions Given: [facility], [address] [place], [place] [id number], [phone] methocarbamol (Robaxin-750 oral tablet) 2 Tablets By [...] Follow up: With: Address: When: Georgi Pfeiffer [address] [place], [place] [phone] [facility] () In 3 days 11/30/2023 DIAGNOSIS: Pain in shoulder Normal [facility] ED Note-Physicianon 11-27-19 ED Note-Physician Basic [...] day(s), # 18 tab(s), Refills(s) 0, Pharmacy: [facility], 160, cm, 11/27/23 12:59:00 EDT, Height/Length [...] Pfeiffer In 3 days 11/30/2023 EDT [address] [place] [phone] (1) Additional Instructions: Patient Education Shoulder [...] made to ensure accuracy, however, inadvertently computerized applied technologist mistakes may be present. Appropriate healthcare PPE [...] mg= 2 tab(s), Oral, BID HumuLIN R KwikPen (Concentrated) Roma (more content not included)... Normal [facility] Comment on above: Result Comment: Elec [...] strengthen the arm. General instructions ? Take wljl-yfz-bttudjh and prescription medicines only as told by [...] provider. Document Revised: 05/03/2022 Document Reviewed: 05/03/2022 Elsevier Patient Education ? 2022 [employer] Normal [facility] ED Patient Summaryon 024 ED Patient Summary (Inserted Image. Isadora ble to display) [address] [address] Patient Discharge Instructions Person Information Name: JOHNSON VERA Age: 33 Years Arrival Date: 11/27/2023 12:52:48 Discharge Diagnosis: Pain in shoulder Primary Care Physician: ARIANE WELLS CNP Provider Information Primary Provider: Riky Le DO Advanced Clinical Research Specialist:Steven Cardenas PA-C The exam and treatment you received in the Emergency Department were for an urgent problem and are not intended as complete care. It is important that you follow up with a doctor, nurse practitioner, or physician?s advertising assistant manager for ongoing care. If your symptoms become worse or you do not improve as expected and you are unable to reach your usual health care provider, you should return to the Emergency Department. We are available 24 hours a day. JOHNSON VERA has been given the following list of patient education materials, prescriptions and follow-up instructions: Follow-up Instructions: With: Address: When: Georgi Pfeiffer [address] [place] [address] [facility] (1) In 3 days 11/30/2023 In the event that this physician does not participate in your insurance network, please consult with your insurance company to find a nearby participating provider. Patient Education Materials: Shoulder Pain A MESSAGE TO ALL PATIENTS REGARDING OPIOIDS PRESCRIPTION OPIOIDS: WHAT YOU NEED TO KNOW Prescription opioids can be used to help relieve syiwxpph-mf-hdbdqw pain and are often prescribed following a [...] be struggling with addiction, tell your health director of managed care and ask for guidance or call [facility]?S National Helpline at 0-102-611-HELP. v Source: [facility] (more content not included)... [facility] Formson 11-27-2023 Forms [id number]#1.00TIFF [facility] XR Shoulder Complete Righton 11-27-2023 XR Shoulder [...] other findings of concern identified. Ordering Provider: Steven Cardenas FINAL REPORT Dictated: 11/27/2023 3:07 pm Naresh Crow MD Signed (Electronic Signature): 11/27/2023 3:07 pm Signed by: Naresh Crow MD Transcribed by: MARTA Technologist: EDGAR Technical Comments Radiation Dose: Ka,r in mGy = na DAP = na Normal [facility] CBC AUTO DIFFon 12-11-2022 BASO # 0.1 103/ul Normal 0.0-0.1 [facility] Comment on above: Performed By: #### P REGU #### [facility] [address] [place] [address] [address] Jaz Barajas Basophils/100 WBC (Bld) 0.8 % Normal 0.2-2.0 [facility] Comment on above: Performed By: #### P REGU #### [facility] [address] [place] [address] [address] Jaz Barajas EO # 0.2 103/ul Normal 0.0-0.7 [facility] Comment on above: Performed By: #### P REGU #### [facility] [address] [place] [address] Dr. Jaz Barajas Eosinophils/100 WBC (Bld) 2.1 % Normal 0.9-7.0 [facility] Comment on above: Performed By: #### P REGU #### [facility] [address] [place] [address] Dr. Jaz Barajas Erythrocyte distribution width (RBC) [Ratio] 13.0 % Normal 11.0-15.0 [facility] Comment on above: Performed By: #### P REGU #### [facility] [address] [place] [address] Dr. Jaz Barajas Hematocrit (Bld) [Volume fraction] 41.2 % Normal 36.0-48.0 [facility] Comment on above: Performed By: #### P REGU #### [facility] [address] [place] [address] Dr. Jaz Barajas Hemoglobin (Bld) [Mass/Vol] 13.7 g/dL Normal 12.0-16.0 [facility] Comment on above: Performed By: #### P REGU #### [facility] [address] [place] [address] Dr. Jaz Barajas IG # 0.02 10e3/ul Normal 0.00-0.03 [facility] Comment on above: Performed By: #### P REGU #### [facility] [address] [place] [address] Dr. Jaz Barajas IG % 0.2 % Normal 0.0-0.5 [facility] Comment on above: Performed By: #### P REGU #### [facility] [address] [place] [address] [address] Jaz Barajas LYMPH # 3.3 103/ul Normal 1.2-3.8 [facility] Comment on above: Performed By: #### P REGU #### [facility] [address] [place] [address] Dr. Jaz Barajas Lymphocytes/100 WBC (Bld) 34.8 % Normal 20.5-60.0 [facility] Comment on above: Performed By: #### P REGU #### [facility] [address] [place] [address] Dr. Jaz Barajas MANUAL DIFF REQ NO Normal [facility] Comment on above: Performed By: #### P REGU #### [facility] [address] [place] [address] Dr. Jaz Barajas MCH (RBC) [Entitic mass] 26.6 pg Critically low 26.7-34.0 [facility] Comment on above: Performed By: #### P REGU #### [facility] [address] [place] [address] Dr. Jaz Barajas MCHC (RBC) [Mass/Vol] 33.3 g/dL Normal 29.9-35.2 [facility] Comment on above: Performed By: #### P REGU #### [facility] [address] [place] [address] Dr. Jaz Barajas MCV (RBC) [Entitic vol] 79.8 fL Critically low 81.0-99.0 [facility] Comment on above: Performed By: #### P REGU #### [facility] [address] [place] [address] Dr. Jaz Barajas MONO # 0.7 103/ul Normal 0.3-0.8 [facility] Comment on above: Performed By: #### P REGU #### [facility] [address] [place] [address] Dr. Jaz Barajas Monocytes/100 WBC (Bld) 7.3 % Normal 1.7-12.0 [facility] Comment on above: Performed By: #### P REGU #### [facility] [address] [place] [address] Dr. Jaz Barajas NEUT # 5.3 103/ul Normal 1.4-6.5 [facility] Comment on above: Performed By: #### P REGU #### [facility] [address] [place] [address] Dr. Jaz Barajas Neutrophils/100 WBC (Bld) 54.8 % Normal 43.0-75.0 [facility] Comment on above: Performed By: #### P REGU #### [facility] [address] [place] [address] Dr. Jaz Barajas Platelet mean volume (Bld) [Entitic vol] 10.7 fL Normal 9.5-13.5 [facility] Comment on above: Performed By: #### P REGU #### [facility] [address] [place] [address] Dr. Jaz Barajas PLT 284 103/ul Normal 150-450 [facility] Comment on above: Performed By: #### P REGU #### [facility] [address] [place] [address] Dr. Jaz Barajas RBC 5.16 106/ul Normal 4.20-5.40 [facility] Comment on above: Performed By: #### P REGU #### [facility] [address] [place] [address] Dr. Jaz Barajas WBC 9.6 103/ul Normal 4.0-11.0 [facility] Comment on above: Performed By: #### P REGU #### [facility] [address] [place] [address] Dr. Jaz Barajas FREE T4on 12-11-2022 Free T4 [Mass/Vol] 1.10 ng/dL Normal 0.76-1.46 [facility] Comment on above: Performed By: #### P ROGLCM #### [facility] [address] [place], [place] [address] Dr. Jaz Barajas LIPID PROFILEon 12-11-2022 CHOL-HDL RATIO NORM SEE BELOW Normal [facility] Comment on above: Result Comment: 3.3 - 4.4 LOW RISK 4.4 - 7.1 AVERAGE RISK 7.1 - 11.0 MODERATE RISK >11.0 HIGH RISK Performed By: #### L IPID, TSH, CMP ####[facility] [address] [place] [id number]. Jaz Barajas Cholesterol [Mass/Vol] 168 mg/dL Normal <=200 [facility] Comment on above: Performed By: #### L IPID, TSH, CMP ####[facility] [address] [place] [address]DrPratibha Barajas Cholesterol in HDL [Mass/Vol] 32 mg/dL Critically low 40-60 [facility] Comment on above: Performed By: #### L IPID, TSH, CMP ####[facility] [address] [place] [address]Dr. Jaz Barajas Cholesterol in LDL [Mass/Vol] 121.8 mg/dL Normal [facility] Comment on above: Performed By: #### L IPID, TSH, CMP ####[facility] [address] [place] [address]Dr. Jaz Barajas Cholesterol.total/ Cholesterol in HDL [Mass ratio] 5.3 {ratio} Normal [facility] Comment on above: Performed By: #### L IPID, TSH, CMP ####[facility] [address] [place] [address]Dr. Jaz Barajas HDL NORMAL > or = 60 mg/dl - LO W CARDIOVASCULAR RISK <40 mg/dl - HIGH CARDIOVASCULAR RISK Normal [facility] Comment on above: Performed By: #### L IPID, TSH, CMP ####[facility] [address] [place] [address]Dr. Jaz Barajas LDL CALC NORMAL SEE BELOW Normal [facility] Comment on above: Result Comment: <100 mg/dl OPTIMAL 100 - 129 mg/dl NEAR OR ABOVE OPTIMAL 130 - 159 mg/dl BORDERLINE HIGH 160 - 189 mg/dl HIGH >190 mg/dl VERY HIGH Performed By: #### L IPID, TSH, CMP ####[facility] [address] [place] [address]DrPratibha Barajas Triglyceride [Mass/Vol] 71 mg/dL Normal <=150 [facility] Comment on above: Performed By: #### L IPID, TSH, CMP ####[facility] [address] [place] [address]Dr. Jaz Barajas VLDL CALC 14.2 mg/dL Normal [facility] Comment on above: Performed By: #### L IPID, TSH, CMP ####[facility] [address] [place] [address]Dr. Jaz Barajas MICROALBUMIN, RAND URon 11-30 mALB <1.3 Normal <=30.0 [facility] Comment on above: Performed By: #### P REGU #### [facility] [address] [place] [address] [address] Jaz Barajas PROF 14(COMP METB)on 023 Albumin [Mass/Vol] 3.7 g/dL Normal 3.4-5.0 [facility] Comment on above: Performed By: #### L IPID, TSH, CMP ####[facility] [address] [place] [address]Dr. Jza Barajas Albumin/Globulin [Mass ratio] 0.8 {ratio} Normal [facility] Comment on above: Performed By: #### L IPID, TSH, CMP ####[facility] [address] [place] [address]Dr. Jaz Barajas ALP [Catalytic activity/Vol] 90 U/L Normal 46-116 [facility] Comment on above: Performed By: #### L IPID, TSH, CMP ####[facility] [address] [place] [address]Dr. Jaz Barajas ALT [Catalytic activity/Vol] 106 U/L Critically high 14-59 [facility] Comment on above: Performed By: #### L IPID, TSH, CMP ####[facility] [address] [place] [id number]. Jaz Barajas Anion gap [Moles/Vol] 12.5 mmol/L Normal [facility] Comment on above: Performed By: #### L IPID, TSH, CMP ####[facility] [address] [place] [address]Dr. Jaz Barajas AST [Catalytic activity/Vol] 43 U/L Critically high 15-37 [facility] Comment on above: Performed By: #### L IPID, TSH, CMP ####[facility] [address] [place] [address]Dr. Jaz Barajas Bilirubin [Mass/Vol] 0.4 mg/dL Normal 0.2-1.0 [facility] Comment on above: Performed By: #### L IPID, TSH, CMP ####[facility] [address] [place], [place] [address]Dr. Jaz Barajas Calcium [Mass/Vol] 9.0 mg/dL Normal 8.5-10.1 [facility] Comment on above: Performed By: #### L IPID, TSH, CMP ####[facility] [address] [place], [place] [address]Dr. Hannahisela Barajas Chloride [Moles/Vol] 104 mmol/L Normal 98-107 [facility] Comment on above: Performed By: #### L IPID, TSH, CMP ####[facility] [address] [place], [place] [address]Dr. Jaz Barajas CO2 [Moles/Vol] 25.8 mmol/L Normal 21.0-32.0 [facility] Comment on above: Performed By: #### L IPID, TSH, CMP ####[facility] [address] [place] [address]Dr. Jaz Barajas Creatinine [Mass/Vol] 0.76 mg/dL Normal 0.55-1.02 [facility] Comment on above: Performed By: #### L IPID, TSH, CMP ####[facility] [address] [place] [address]Dr. Jaz Karl EGFR-AF WELSH >60 Normal >=60 [facility] Comment on above: Performed By: #### L IPID, TSH, CMP ####[facility] [address] [place] [address]Dr. Jaz Barajas EGFR-NON AF WELSH >60 Normal >=60 [facility] Comment on above: Performed By: #### L IPID, TSH, CMP ####[facility] [address] [place] [address]Dr. Jaz Barajas Globulin (S) [Mass/Vol] 4.4 g/dL Normal [facility] Comment on above: Performed By: #### L IPID, TSH, CMP ####[facility] [address] [place], [place] [address]Dr. Jaz Barajas Glucose [Mass/Vol] 228 mg/dL Critically high 74-106 T [facility] Comment on above: Performed By: #### L IPID, TSH, CMP ####[facility] [address] [place], [place] [address]Dr. Jaz Barajas Potassium [Moles/Vol] 4.3 mmol/L Normal 3.5-5.1 [facility] Comment on above: Performed By: #### L IPID, TSH, CMP ####[facility] [address] [place], [place] [address]Dr. Jaz Barajas Protein [Mass/Vol] 8.1 g/dL Normal 6.4-8.2 [facility] Comment on above: Performed By: #### L IPID, TSH, CMP ####[facility] Zk[address]eyr[address] [place], [place] [address]Dr. Jaz Barajas Sodium [Moles/Vol] 138 mmol/L Normal 136-145 [facility] Comment on above: Performed By: #### L IPID, TSH, CMP ####[facility] [address] [place], [place] [address]Dr. Jaz Barajas Urea nitrogen [Mass/Vol] 21.0 mg/dL Critically high 7.0-18.0 [facility] Comment on above: Performed By: #### L IPID, TSH, CMP ####[facility] [address] [place] [address]Dr. Jaz Barajas Urea nitrogen/Creatinin e [Mass ratio] 27.6 mg/mg Normal [facility] Comment on above: Performed By: #### L JACE, TSH, CMP ####[facility] [address] [place], [place] [address]Dr. Jaz Barajas TSHon 12-11-2022 TSH 3.602 uIU/mL Normal 0.358-3.740 [facility] Comment on above: Performed By: #### L IPID, TSH, CMP ####[facility] [address] [place], [place] [address]Dr. Jaz Barajas UA RANDOM W/MICROSCOPICon BACTERIA NONE SEEN Normal NONE SEEN [facility] Comment on above: Performed By: #### U AMIC ####[facility] Siem[address]odw[address] [place], [place] [address]Dr. Jaz Barajas Bilirubin Ql (U) Negative Normal NEGATIVE [facility] Comment on above: Performed By: #### U AMIC ####[facility] [address] [place], [place] [address]Dr. Jaz Barajas CAST NONE SEEN Normal NONE SEEN [facility] Comment on above: Performed By: #### U AMIC ####[facility] Virvz[address] [place], [place] [address]Dr. Jaz Barajas Clarity (U) CLEAR Normal CLEAR [facility] Comment on above: Performed By: #### U AMIC ####[facility] [address] [place], [place] [address]Dr. Jaz Barajas Color (U) LT. YELLOW Normal YELLOW [facility] Comment on above: Performed By: #### U AMIC ####[facility] R[address] [place], [place] [address]Dr. Jaz Barajas Crystals LM Nom (Urine sed) NONE SEEN Normal NONE SEEN [facility] Comment on above: Performed By: #### U AMIC ####[facility] [address] [place], [place] [address]Dr. Jaz Barajas Epithelial cells LM Ql (Urine sed) RARE Normal NONE SEEN /RARE [facility] Comment on above: Performed By: #### U AMIC ####[facility] [address] [place] [address]Dr. Jaz Barajas Glucose Ql (U) >1000 Abnormal NEGATIVE [facility] Comment on above: Performed By: #### U AMIC ####[facility] [address] [place] [address]Dr. Jaz Barajas Hemoglobin Ql (U) Negative Normal NEGATIVE [facility] Comment on above: Performed By: #### U AMIC ####[facility] [address] [place] [address]Dr. Jaz Barajas Ketones Ql (U) Negative Normal NEGATIVE [facility] Comment on above: Performed By: #### U AMIC ####[facility] [address] [place] [address]Dr. Jaz Barajas LEUKOCYTES Negative Normal NEGATIVE [facility] Comment on above: Performed By: #### U AMIC ####[facility] [address] [place], [place] [address]Dr. Yiisela Barajas MUCOUS NONE SEEN Normal NONE SEEN [facility] Comment on above: Performed By: #### U AMIC ####[facility] [address] [place], [place] [address]Dr. Jaz Barajas Nitrite Ql (U) Negative Normal NEGATIVE [facility] Comment on above: Performed By: #### U AMIC ####[facility] [address] [place] [address]Dr. Jaz Barajas pH (U) 6.0 [pH] Normal 5-9 [facility] Comment on above: Performed By: #### U AMIC ####[facility] [address] [place] [address]Dr. Jaz Barajas RBC NONE SEEN Abnormal 0-2 [facility] Comment on above: Performed By: #### U AMIC ####[facility] [address] [place] [address]Dr. Hannahisela Barajas SPEC GRAVITY 1.020 Normal 1.005-<=1.02 5 [facility] Comment on above: Performed By: #### U AMIC ####[facility] [address] [place], [place] [address]Wj. Jaz Barajas UA PROTEIN Negative Normal NEGATIVE/ TRACE [facility] Comment on above: Performed By: #### U AMIC ####[facility] [address] [place], [place] [address]QnPratibha Barajas Urobilinogen Qn (U) 0.2 {Oxana'U}/dL Normal 0.2 - 1.0 [facility] Comment on above: Performed By: #### U AMIC ####[facility] [address] [place] [id number] Barajas WBC 0-2 Abnormal NONE SEEN [facility] Comment on above: Performed By: #### U AMIC ####[facility] [address] [place] [id number] Barajas VITAMIN D 25 OHon 12-11-2022 VIT D 25-OH 30.9 ng/mL Normal [facility] Comment on above: Performed By: #### P ROGLCM #### [facility] [address] [place] [address] Dr. Jaz Barajas VIT D RANGES SEE BELOW Normal [facility] Comment on above: Result Comment: <20 ng/mL Vit D deficient 20 - <30 ng/mL Vit D insufficient 30 - 100 ng/mL Vit D sufficient >100 ng/mL Potential Toxicity Performed By: #### P ROGLCM #### [facility] [address] [address] [address] Jaz Barajas CBC AUTO DIFFon 11-15-2022 BASO # 0.1 103/ul Normal 0.0-0.1 [facility] Comment on above: Performed By: #### P ROGLCM #### [facility] [address] [address] [address] Jaz Barajas Basophils/100 WBC (Bld) 0.6 % Normal 0.2-2.0 [facility] Comment on above: Performed By: #### P ROGLCM #### [facility] [address] [address] [address] Jaz Barajas EO # 0.2 103/ul Normal 0.0-0.7 [facility] Comment on above: Performed By: #### P ROGLCM #### [facility] [address] [place] [address] Dr. Jaz Barajas Eosinophils/100 WBC (Bld) 2.0 % Normal 0.9-7.0 [facility] Comment on above: Performed By: #### P ROGLCM #### [facility] [address] [place] [address] Dr. Jaz Barajas Erythrocyte distribution width (RBC) [Ratio] 13.3 % Normal 11.0-15.0 [facility] Comment on above: Performed By: #### P VALENTINELCM #### [facility] [address] [place] [address] Dr. Jaz Barajas Hematocrit (Bld) [Volume fraction] 40.4 % Normal 36.0-48.0 [facility] Comment on above: Performed By: #### P ROGLCM #### [facility] [address] [place] [address] Dr. Jaz Barajas Hemoglobin (Bld) [Mass/Vol] 13.5 g/dL Normal 12.0-16.0 [facility] Comment on above: Performed By: #### P ROGLCM #### [facility] [address] [place] [address] Dr. Jaz Barajas IG # 0.03 10e3/ul Normal 0.00-0.03 [facility] Comment on above: Performed By: #### P ROGLCM #### [facility] [address] [place] [address] Dr. Jaz Barajas IG % 0.3 % Normal 0.0-0.5 [facility] Comment on above: Performed By: #### P ROGLCM #### [facility] [address] [place] [address] Dr. Jaz Barajas LYMPH # 3.3 103/ul Normal 1.2-3.8 [facility] Comment on above: Performed By: #### P ROGLCM #### [facility] [address] [place] [address] Dr. Jaz Barajas Lymphocytes/100 WBC (Bld) 30.7 % Normal 20.5-60.0 [facility] Comment on above: Performed By: #### P ROGLCM #### [facility] [address] [place] [address] Dr. Jaz Barajas MANUAL DIFF REQ NO Normal [facility] Comment on above: Performed By: #### P ROGLCM #### [facility] [address] [place] [address] Dr. Jaz Barajas MCH (RBC) [Entitic mass] 26.6 pg Critically low 26.7-34.0 [facility] Comment on above: Performed By: #### P ROGLCM #### [facility] [address] [place] [address] Dr. Jaz Barajas MCHC (RBC) [Mass/Vol] 33.4 g/dL Normal 29.9-35.2 [facility] Comment on above: Performed By: #### P ROGLCM #### [facility] [address] [place] [address] Dr. Jaz Barajas MCV (RBC) [Entitic vol] 79.7 fL Critically low 81.0-99.0 [facility] Comment on above: Performed By: #### P ROGLCM #### [facility] [address] [place] [address] Dr. Jaz Barajas MONO # 0.8 103/ul Normal 0.3-0.8 [facility] Comment on above: Performed By: #### P ROGLCM #### [facility] [address] [place] [address] Dr. Jaz Barajas Monocytes/100 WBC (Bld) 7.4 % Normal 1.7-12.0 [facility] Comment on above: Performed By: #### P ROGLCM #### [facility] [address] [place] [address] Dr. Jaz Barajas NEUT # 6.3 103/ul Normal 1.4-6.5 [facility] Comment on above: Performed By: #### P ROGLCM #### [facility] [address] [place] [address] Dr. Jaz Barajas Neutrophils/100 WBC (Bld) 59.0 % Normal 43.0-75.0 [facility] Comment on above: Performed By: #### P ROGLCM #### [facility] [address] [place] [address] Dr. Jaz Barajas Platelet mean volume (Bld) [Entitic vol] 10.7 fL Normal 9.5-13.5 [facility] Comment on above: Performed By: #### P ROGLCM #### [facility] [address] [place] [address] Dr. Jaz Barajas PLT 326 103/ul Normal 150-450 [facility] Comment on above: Performed By: #### P VALENTINELCM #### [facility] [address] [place] [address] Dr. Jaz Barajas RBC 5.07 106/ul Normal 4.20-5.40 [facility] Comment on above: Performed By: #### P VALENTINELCM #### [facility] [address] [place] [address] Dr. Jaz Barajas WBC 10.7 103/ul Normal 4.0-11.0 [facility] Comment on above: Performed By: #### P ROGLCM #### [facility] [address] [place] [address] ABD/PELV W CONon [...] small fat-containing umbilical hernia. Electronically authenticated by: GERADLINE LAZAR Date: 2022-11-15 09:13 Normal [facility] ER URINE PROFILEon 3 Bilirubin Ql (U) Negative Normal NEGATIVE [facility] Comment on above: Performed By: #### P ROGLCM #### [facility] [address] [place] [address] Dr. Jaz Barajas Clarity (U) CLEAR Normal CLEAR [facility] Comment on above: Performed By: #### P ROGLCM #### [facility] [address] [place] [address] Dr. Jaz Barajas Color (U) LT. YELLOW Normal YELLOW [facility] Comment on above: Performed By: #### P ROGLCM #### [facility] [address] [place] [address] Dr. Jaz Barajas ERUAHD A micrscopic examina tion will be performed if indicated. Normal [facility] Comment on above: Performed By: #### P ROGLCM #### [facility] [address] [place] [address] Dr. Jaz Barajas Glucose Ql (U) 1000 mg/dl Abnormal NEGATIVE [facility] Comment on above: Performed By: #### P ROGLCM #### [facility] [address] [place] [address] Dr. Jaz Barajas Hemoglobin Ql (U) Negative Normal NEGATIVE [facility] Comment on above: Performed By: #### P ROGLCM #### [facility] [address] [place] [address] Dr. Jaz Barajas Ketones Ql (U) Negative Normal NEGATIVE [facility] Comment on above: Performed By: #### P ROGLCM #### [facility] [address] [place] [address] Dr. Jaz Barajas LEUKOCYTES Negative Normal NEGATIVE [facility] Comment on above: Performed By: #### P ROGLCM #### [facility] [address] [place] [address] Dr. Jaz Barajas Nitrite Ql (U) Negative Normal NEGATIVE [facility] Comment on above: Performed By: #### P ROGLCM #### [facility] [address] [place] [address] Dr. Jaz Barajas pH (U) 6.0 [pH] Normal 5-9 [facility] Comment on above: Performed By: #### P ROGLCM #### [facility] [address] [place] [address] Dr. Jaz Barajas SPEC GRAVITY 1.015 Normal 1.005-<=1.02 5 [facility] Comment on above: Performed By: #### P ROGLCM #### [facility] [address] [place] [address] Dr. Jaz Barajas UA PROTEIN Negative Normal NEGATIVE/ TRACE [facility] Comment on above: Performed By: #### P ROGLCM #### [facility] [address] [place] [address] Dr. Jaz Barajas UR MICRO IND NOT INDICATED Normal [facility] Comment on above: Performed By: #### P ROGLCM #### [facility] [address] [place] [address] Dr. Jaz Barajas Urobilinogen Qn (U) 0.2 {Oxana'U}/dL Normal 0.2 - 1.0 [facility] Comment on above: Performed By: #### P ROGLCM #### [facility] [address] [place] [address] Dr. Jaz Barajas LIPASEon 11-15-2022 Lipase [Catalytic activity/Vol] 73.0 U/L Normal 73.0-393.0 [facility] Comment on above: Performed By: #### P REGU #### [facility] [address] [address] [address] Jaz Barajas URon 11-15-2022 , QUAL Negative Normal NEGATIVE [facility] Comment on above: Performed By: #### E RUR, PREGU ####[facility] [address] [place] [address]Dr. Jaz Barajas PROF 14(COMP METB)on 023 Albumin [Mass/Vol] 3.6 g/dL Normal 3.4-5.0 [facility] Comment on above: Performed By: #### P REGU #### [facility] [address] [address] [address] Jaz Barajas Albumin/Globulin [Mass ratio] 0.9 {ratio} Normal [facility] Comment on above: Performed By: #### P REGU #### [facility] [address] [address] [address] Jaz Barajas ALP [Catalytic activity/Vol] 98 U/L Normal 46-116 [facility] Comment on above: Performed By: #### P REGU #### [facility] [address] [address] [address] Jaz Barajas ALT [Catalytic activity/Vol] 138 U/L Critically high 14-59 [facility] Comment on above: Performed By: #### P REGU #### [facility] [address] [address] [address] Jaz Barajas Anion gap [Moles/Vol] 13.4 mmol/L Normal [facility] Comment on above: Performed By: #### P REGU #### [facility] [address] [address] [address] Jaz Barajas AST [Catalytic activity/Vol] 61 U/L Critically high 15-37 [facility] Comment on above: Performed By: #### P REGU #### [facility] [address] [address] [address] Jaz Barajas Bilirubin [Mass/Vol] 0.2 mg/dL Normal 0.2-1.0 [facility] Comment on above: Performed By: #### P REGU #### [facility] [address] [address] [address] Jaz Barajas Calcium [Mass/Vol] 9.4 mg/dL Normal 8.5-10.1 [facility] Comment on above: Performed By: #### P REGU #### [facility] [address] [address] [address] Jaz Barajas Chloride [Moles/Vol] 104 mmol/L Normal 98-107 [facility] Comment on above: Performed By: #### P REGU #### [facility] [address] [place] [address] Dr. Jaz Barajas CO2 [Moles/Vol] 24.7 mmol/L Normal 21.0-32.0 [facility] Comment on above: Performed By: #### P REGU #### [facility] [address] [place] [address] Dr. Jaz Barajas Creatinine [Mass/Vol] 0.69 mg/dL Normal 0.55-1.02 [facility] Comment on above: Performed By: #### P REGU #### [facility] [address] [place] [address] Dr. Jaz Barajas EGFR-AF WELSH >60 Normal >=60 [facility] Comment on above: Performed By: #### P REGU #### [facility] [address] [place] [address] Dr. Jaz Barajas EGFR-NON AF WELSH >60 Normal >=60 [facility] Comment on above: Performed By: #### P REGU #### [facility] [address] [place] [address] Dr. Jaz Barajas Globulin (S) [Mass/Vol] 4.2 g/dL Normal [facility] Comment on above: Performed By: #### P REGU #### [facility] [address] [place] [address] Dr. Jaz Barajas Glucose [Mass/Vol] 339 mg/dL Critically high 74-106 [facility] Comment on above: Performed By: #### P REGU #### [facility] [address] [address] [address] Jaz Barajas Potassium [Moles/Vol] 4.1 mmol/L Normal 3.5-5.1 [facility] Comment on above: Performed By: #### P REGU #### [facility] [address] [id number] Jaz Barajas Protein [Mass/Vol] 7.8 g/dL Normal 6.4-8.2 [facility] Comment on above: Performed By: #### P REGU #### [facility] [address] [address] [address] Jza Barajas Sodium [Moles/Vol] 138 mmol/L Normal 136-145 [facility] Comment on above: Performed By: #### P REGU #### [facility] [address] [address] [address] Jaz Barajas Urea nitrogen [Mass/Vol] 17.0 mg/dL Normal 7.0-18.0 [facility] Comment on above: Performed By: #### P REGU #### [facility] [address] [address] [address] Jaz Barajas Urea nitrogen/Creatinin e [Mass ratio] 24.6 mg/mg Normal [facility] Comment on above: Performed By: #### P REGU #### [facility] [address] [id number] Jaz Barajas CULTURE WOUNDon 11-13-2022 CULTURE [...] F Tetracycline >=16 R F Normal [facility] Comment on above: Performed By: #### W OUNDCX ####[facility] [address] [place], [place] [address]KqDr. Jaz Barajas Covid-19 PCR (CVDTB)on 08-01 SARS-CoV-2 (COVID-19) RNA REANNA+probe Ql (Unsp spec) Not detected Normal NOT DETECTED [facility] Comment on above: Result Comment: This test is not yet approved or cleared by the [place] FDA. When there are no FDA-approved or cleared tests available, and other criteria are met, FDA can make tests available under an emergency access mechanism called an Emergency Use Authorization (EUA). The EUA for this test is supported by the [place] of Health and Human Service's (HHS's) declaration [...] SARS-CoV-2. Performed By: #### P ROGLCM #### [facility] [address] [place] [address] Dr. Jaz Barajas INFLUENZA A AND B AGon 08-18 [facility] SEE BELOW Normal [facility] Comment on above: Result Comment: Nega tive for Flu A protein angiten. Infection due to Flu A cannot be ruled out. Flu A angiten in the sample may be below the detection limit of the test. Performed By: #### P ROGLCM #### [facility] [address] [place] [address] Dr. J[address] [facility] [facility] SEE BELOW Normal [facility] Comment on above: Result Comment: Nega tive for Flu B protein antigen. Infection due to Flu B cannot be ruled out. Flu B antigen in the sample may be below the detection limit of the test. Performed By: #### P ROGLCM #### [facility] [address] [place] [address] Dr. Jaz Barajas INFLUENZA A AG Negative Normal NEGATIVE SEE COMMENT [facility] Comment on above: Performed By: #### P ROGLCM #### [facility] [address] [address] [address] Jaz Barajas INFLUENZA B AG Negative Normal NEGATIVE SEE COMMENT [facility] Comment on above: Performed By: #### P ROGLCM #### [facility] [address] [address] [address] Jaz Barajas INTERNAL CONTROLS Within Normal Limits Normal Wi thin Normal Limits [facility] Comment on above: Performed By: #### P ROGLCM #### [facility] [address] [address] [address] Jaz Barajas POINT OF CARE GLUCOSEon 08-01 Glucose [Mass/Vol] 310 mg/dL Critically high 74-106 T [facility] Comment on above: Performed By: #### P ROGLCM #### [facility] [address] [place] [address] Dr. Jaz Barajas XR CHEST 1 Von [...] EDUARDO RHODES Date: 2022-08-18 15:33 Normal [facility] PREG HCG QUALon 05-14-2022 , QUAL Negative Normal NEGATIVE [facility] Comment on above: Performed By: #### P REG ####[facility] [address] [place] [id number]. Jaz Barajas CBC AUTO DIFFon 05-08-2022 BASO # 0.1 103/ul Normal 0.0-0.1 [facility] Comment on above: Performed By: #### C BC ####[facility] [address] [place] [id number] Barajas Basophils/100 WBC (Bld) 0.6 % Normal 0.2-2.0 [facility] Comment on above: Performed By: #### C BC ####[facility] [address] [place] [address]Dr. Jaz Barajas EO # 0.2 103/ul Normal 0.0-0.7 [facility] Comment on above: Performed By: #### C BC ####[facility] [address] [place], [place] [address]Dr. Jaz Barajas Eosinophils/100 WBC (Bld) 1.5 % Normal 0.9-7.0 [facility] Comment on above: Performed By: #### C BC ####[facility] [address] [place], [place] [address]Dr. Jaz Barajas Erythrocyte distribution width (RBC) [Ratio] 12.6 % Normal 11.0-15.0 [facility] Comment on above: Performed By: #### C BC ####[facility] [address] [place], [place] [address]Dr. Jaz Barajas Hematocrit (Bld) [Volume fraction] 38.7 % Normal 36.0-48.0 [facility] Comment on above: Performed By: #### C BC ####[facility] [address] [place], [place] [address]Dr. Jaz Barajas Hemoglobin (Bld) [Mass/Vol] 12.9 g/dL Normal 12.0-16.0 [facility] Comment on above: Performed By: #### C BC ####[facility] [address] [place], [place] [address]Dr. Jaz Barajas IG # 0.02 10e3/ul Normal 0.00-0.03 [facility] Comment on above: Performed By: #### C BC ####[facility] [address] [place], [place] [address]Dr. Hannahisela Barajas IG % 0.2 % Normal 0.0-0.5 [facility] Comment on above: Performed By: #### C BC ####[facility] [address] [place], [place] [address]Dr. Jaz Barajas LYMPH # 3.5 103/ul Normal 1.2-3.8 [facility] Comment on above: Performed By: #### C BC ####[facility] [address] [place] [id number]. Jaz Barajas Lymphocytes/100 WBC (Bld) 34.4 % Normal 20.5-60.0 [facility] Comment on above: Performed By: #### C BC ####[facility] [address] [place] [id number]. Jza Barajas MANUAL DIFF REQ NO Normal [facility] Comment on above: Performed By: #### C BC ####[facility] [address] [place] [id number]. Jaz Barajas MCH (RBC) [Entitic mass] 27.2 pg Normal 26.7-34.0 [facility] Comment on above: Performed By: #### C BC ####[facility] [address] [place], [place] [address]Dr. Jaz Barajas MCHC (RBC) [Mass/Vol] 33.3 g/dL Normal 29.9-35.2 [facility] Comment on above: Performed By: #### C BC ####[facility] [address] [place], [place] [id number]. Jaz Barajas MCV (RBC) [Entitic vol] 81.6 fL Normal 81.0-99.0 [facility] Comment on above: Performed By: #### C BC ####[facility] [address] [place], [place] [address]Dr. Jaz Barajas MONO # 0.7 103/ul Normal 0.3-0.8 [facility] Comment on above: Performed By: #### C BC ####[facility] [address] [place], [place] [id number]. Jaz Barajas Monocytes/100 WBC (Bld) 7.0 % Normal 1.7-12.0 [facility] Comment on above: Performed By: #### C BC ####[facility] [address] [place], [place] [address]Dr. Jaz Barajas NEUT # 5.7 103/ul Normal 1.4-6.5 [facility] Comment on above: Performed By: #### C BC ####[facility] [address] [place] [id number]. Jaz Barajas Neutrophils/100 WBC (Bld) 56.3 % Normal 43.0-75.0 [facility] Comment on above: Performed By: #### C BC ####[facility] [address] [place] [id number]. Jaz Barajas Platelet mean volume (Bld) [Entitic vol] 11.0 fL Normal 9.5-13.5 [facility] Comment on above: Performed By: #### C BC ####[facility] [address] [place] [id number]. Jaz Barajas PLT 274 103/ul Normal 150-450 [facility] Comment on above: Performed By: #### C BC ####[facility] [address]fs[address] [place] [id number]. Jaz Barajas RBC 4.74 106/ul Normal 4.20-5.40 [facility] Comment on above: Performed By: #### C BC ####[facility] [address] [place] [id number]. Jaz Barajas WBC 10.0 103/ul Normal 4.0-11.0 [facility] Comment on above: Performed By: #### C BC ####[facility] [address] [place] [id number]. Jaz Barajas [facility]on SARS-CoV-2 (COVID-19) RNA REANNA+probe Ql (Unsp spec) Not detected Normal NOT DETECTED [facility] Comment on above: Result Comment: This test is not yet approved or cleared by the [place] FDA. When there are no FDA-approved or cleared tests available, and other criteria are met, FDA can make tests available under an emergency access mechanism called an Emergency Use Authorization (EUA). The EUA for this test is supported by the Supervisor [employer] Accounts of Health and Human Service's (HHS's) declaration [...] SARS-CoV-2. Performed By: #### P REGU #### [facility] [address] [place] [address] Dr. Jaz Barajas PROF CHEM 8 (BAS METB)on Anion gap [Moles/Vol] 10.1 mmol/L Normal [facility] Comment on above: Performed By: #### P REGU #### [facility] [address] [place] [address] Dr. Jaz Barajas Calcium [Mass/Vol] 9.0 mg/dL Normal 8.5-10.1 [facility] Comment on above: Performed By: #### P REGU #### [facility] [address] [place] [address] Dr. Jaz Barajas Chloride [Moles/Vol] 99 mmol/L Normal 98-107 [facility] Comment on above: Performed By: #### P REGU #### [facility] [address] [place] [address] Dr. Jaz Barajas CO2 [Moles/Vol] 29.1 mmol/L Normal 21.0-32.0 [facility] Comment on above: Performed By: #### P REGU #### [facility] [address] [place] [address] Dr. Jaz Barajas Creatinine [Mass/Vol] 0.80 mg/dL Normal 0.55-1.02 [facility] Comment on above: Performed By: #### P REGU #### [facility] [address] [place] [address] Dr. Jaz Barajas EGFR-AF WELSH >60 Normal >=60 [facility] Comment on above: Performed By: #### P REGU #### [facility] [address] [place] [address] Dr. Jaz Barajas EGFR-NON AF WELSH >60 Normal >=60 [facility] Comment on above: Performed By: #### P REGU #### [facility] [address] [place] [address] Dr. Jaz Barajas Glucose [Mass/Vol] 217 mg/dL Critically high 74-106 T [facility] Comment on above: Performed By: #### P REGU #### [facility] [address] [place] [address] Dr. Jaz Barajas Potassium [Moles/Vol] 4.2 mmol/L Normal 3.5-5.1 [facility] Comment on above: Result Comment: spec imen slightly hemolyzed may affect K+ result Performed By: #### P REGU #### [facility] [address] [place] [address] Dr. Jaz Barajas Sodium [Moles/Vol] 134 mmol/L Critically low 136-145 Th [facility] [place] Comment on above: Performed By: #### P REGU #### [facility] [address] [place] [address] Dr. Jaz Barajas Urea nitrogen [Mass/Vol] 11.0 mg/dL Normal 7.0-18.0 [facility] Comment on above: Performed By: #### P REGU #### [facility] [address] [place] [address] Dr. Jaz Barajas Urea nitrogen/Creatinin e [Mass ratio] 13.8 mg/mg Normal [facility] Comment on above: Performed By: #### P REGU #### [facility] [address] [place] [address] ABD/PELV W CONon [...] JEYSON BLANTON Date: 2022-04-18 12:31 Normal [facility] ER URINE PROFILEon 2 Bilirubin Ql (U) Negative Normal NEGATIVE [facility] Comment on above: Performed By: #### Neva BREAUXR PREGU ####[facility] [address] [place] [address]Dr. Jaz Barajas Clarity (U) CLEAR Normal CLEAR [facility] Comment on above: Performed By: #### Neva BREAUXR, PREGU ####[facility] [address] [place] [address]Dr. Jaz Barajas Color (U) LT. YELLOW Normal YELLOW [facility] Comment on above: Performed By: #### Neva CASTRO PREGU ####[facility] [address] [place] [address]Dr. Jaz Barajas ERUAHD A micrscopic examina tion will be performed if indicated. Normal [facility] Comment on above: Performed By: #### E NAMITAR, PREGU ####[facility] [address] [place] [address]Dr. Jaz Barajas Glucose Ql (U) 1000 mg/dl Abnormal NEGATIVE [facility] Comment on above: Performed By: #### E RUR, PREGU ####[facility] [address] [place], [place] [address]Dr. Jaz Barajas Hemoglobin Ql (U) Negative Normal NEGATIVE [facility] Comment on above: Performed By: #### E RUR, PREGU ####[facility] [address]rt[address] [place], [place] [address]Dr. Jaz Barajas Ketones Ql (U) Negative Normal NEGATIVE [facility] Comment on above: Performed By: #### E RUR, PREGU ####[facility] Dr[address] [place], [place] [address]Dr. Jaz Barajas LEUKOCYTES Negative Normal NEGATIVE [facility] Comment on above: Performed By: #### E RUR, PREGU ####[facility] [address] [place], [place] [address]Dr. Jaz Barajas Nitrite Ql (U) Negative Normal NEGATIVE [facility] Comment on above: Performed By: #### E RUR, PREGU ####[facility] [address] [place], [place] [address]Dr. Jaz Karl pH (U) 6.5 [pH] Normal 5-9 [facility] Comment on above: Performed By: #### E RUR, PREGU ####[facility] [address] [place], [place] [address]Dr. Jaz Barajas SPEC GRAVITY 1.010 Normal 1.005-<=1.02 5 [facility] Comment on above: Performed By: #### E RUR, PREGU ####[facility] [address] [place], [place] [address]Dr. Jaz Barajas UA PROTEIN Negative Normal NEGATIVE/ TRACE [facility] Comment on above: Performed By: #### E RUR, PREGU ####[facility] [address] [place], [place] [address]Dr. Jaz Barajas UR MICRO IND NOT INDICATED Normal [facility] Comment on above: Performed By: #### E RUR, PREGU ####[facility] [address] [place] [id number] Barajas Urobilinogen Qn (U) 0.2 {Oxana'U}/dL Normal 0.2 - 1.0 [facility] Comment on above: Performed By: #### E RUR, PREGU ####[facility] [address] [place] [id number] Barajas URon 04-18-2022 , QUAL Negative Normal NEGATIVE [facility] Comment on above: Performed By: #### E RUR, PREGU ####[facility] [address] [place] [address]DrPratibha Barajas 17-[place] PROGESTERONE, LC/MSon 04-05-2022 17-OH Progesterone LCMS 43 ng/dL Normal [facility] Comment on above: Result Comment: Adul t Female Follicular 15 - 70 Luteal 35 - 290 Performed By: #### P ROGLCM #### [facility] [address] [place] [address] Dr. Jaz Barajas ANDROSTENEDINE LC/MSon 04-05 Androstenedione LCMS 111 ng/dL Normal 41-262 [facility] Comment on above: Result Comment: This test was developed and its performance characteristics determined by [facility]. It has not been cleared or approved by the Food and Drug Administration. Performed By: #### A NDROST #### [facility] [address] [place] [address] [address] Jaz Barajas TESTOSTERONE, TOTALon 2021 Testosterone [Mass/Vol] 70 ng/dL Critically high 8-60 [facility] Comment on above: Performed By: #### T ESTTOT ####[facility] [address] [place] [address]Dr. Jaz Barajas PROF CHEM 8 (BAS METB)on Anion gap [Moles/Vol] 11.5 mmol/L Normal [facility] Comment on above: Performed By: #### B MP ####[facility] [address] [place] [address]Dr. Jaz Barajas Calcium [Mass/Vol] 9.1 mg/dL Normal 8.5-10.1 [facility] Comment on above: Performed By: #### B MP ####[facility] [address] [place] [address]Dr. Jaz Barajas Chloride [Moles/Vol] 103 mmol/L Normal 98-107 [facility] Comment on above: Performed By: #### B MP ####[facility] [address] [place] [address]Dr. Jaz Barajas CO2 [Moles/Vol] 28.0 mmol/L Normal 21.0-32.0 [facility] Comment on above: Performed By: #### B MP ####[facility] L[address] [place], [place] [address]Dr. Jaz Karl Creatinine [Mass/Vol] 0.74 mg/dL Normal 0.55-1.02 [facility] Comment on above: Performed By: #### B MP ####[facility] [address] [place], [place] [address]Dr. Jaz Karl EGFR-AF WELSH >60 Normal >=60 [facility] Comment on above: Performed By: #### B MP ####[facility] [address] [place], [place] [address]Dr. Jaz Karl EGFR-NON AF WELSH >60 Normal >=60 [facility] Comment on above: Performed By: #### B MP ####[facility] [address] [place], [place] [address]Dr. Jaz Karl Glucose [Mass/Vol] 197 mg/dL Critically high 74-106 T [facility] Comment on above: Performed By: #### B MP ####[facility] [address]wox[address] [place], [place] [address]Dr. Hannahisela Karl Potassium [Moles/Vol] 4.5 mmol/L Normal 3.5-5.1 [facility] Comment on above: Performed By: #### B MP ####[facility] [address] [place], [place] [address]Dr. Hannahisela Karl Sodium [Moles/Vol] 138 mmol/L Normal 136-145 [facility] Comment on above: Performed By: #### B MP ####[facility] [address] [place] [address]Dr. Jaz Barajas Urea nitrogen [Mass/Vol] 11.0 mg/dL Normal 7.0-18.0 [facility] Comment on above: Performed By: #### B MP ####[facility] [address] [place] [address]DrPratibha Barajas Urea nitrogen/Creatinin e [Mass ratio] 14.9 mg/mg Normal [facility] Comment on above: Performed By: #### B MP ####[facility] [address] [place] [address]Dr. Jaz Barajas XR ABD FLAT_UPon 02-06-2022 XR ABD [...] EDUARDO RIVERS Date: 2022-02-06 17:25 Normal [facility] CREATININEon 01-31-2022 Creatinine [Mass/Vol] 0.74 mg/dL Normal 0.55-1.02 [facility] Comment on above: Performed By: #### P ROGLCM #### [facility] [address] [address] [address] Jaz Barajas EGFR-AF WELSH >60 Normal >=60 [facility] Comment on above: Performed By: #### P ROGLCM #### [facility] [address] [address] [address] Jaz Barajas EGFR-NON AF WELSH >60 Normal >=60 [facility] Comment on above: Performed By: #### P ROGLCM #### [facility] [address] [address] [address] ABDOMEN W CONon CT ABDOMEN W CON EXAMINATION: CT ABDO [...] JEYSON BLANTON Date: 2022-01-31 18:16 Normal [facility] ACETONE SERUMon 01-09-2022 ACETONE Negative Normal NEGATIVE [facility] Comment on above: Performed By: #### A CETON ####[facility] [address] [place] [address]Dr. Jaz Barajas CARDIAC BISI ADMITon 022 CK [Catalytic activity/Vol] 58 U/L Normal 26-192 [facility] Comment on above: Performed By: #### P REGU #### [facility] [address] [address] [address] Jaz Barajas CK.MB [Mass/Vol] 0.64 ng/mL Normal <=3.60 [facility] Comment on above: Performed By: #### P REGU #### [facility] [address] [address] [address] Jaz Barajas HSTROP 5.3 pg/mL Normal 4.0-51.3 [facility] Comment on above: Result Comment: CUT- OFF POINTS HAVE BEEN ESTABLISHED BASED ON THE FOURTH UNIVERSAL DEFINITIONS OF MYOCARDIAL INFARCTION. THE UPPER REFERENCE LIMIT (URL) OF TROPONIN, DEFINED THE 99TH PERCENTILE OF cTnI DISTRIBUTION IN A REFERENCE POPULATION, HAS BEEN CONFIRMED THE DECISION THRESHOLD FOR MD DIAGNOSIS. Performed By: #### P REGU #### [facility] [address] [place] [address] Dr. Jaz Barajas WAI 30 ng/mL Normal 9-82 [facility] Comment on above: Performed By: #### P REGU #### [facility] [address] [place] [address] Dr. Jaz Barajas CBC AUTO DIFFon 01-09-2022 BASO # 0.1 103/ul Normal 0.0-0.1 [facility] Comment on above: Performed By: #### P REGU #### [facility] [address] [place] [address] Dr. Jaz Barajas Basophils/100 WBC (Bld) 0.5 % Normal 0.2-2.0 [facility] Comment on above: Performed By: #### P REGU #### [facility] [address] [place] [address] Dr. Jaz Barajas EO # 0.3 103/ul Normal 0.0-0.7 [facility] Comment on above: Performed By: #### P REGU #### [facility] [address] [place] [address] Dr. Jaz Barajas Eosinophils/100 WBC (Bld) 2.5 % Normal 0.9-7.0 [facility] Comment on above: Performed By: #### P REGU #### [facility] [address] [place] [address] Dr. Jaz Barajas Erythrocyte distribution width (RBC) [Ratio] 12.8 % Normal 11.0-15.0 [facility] Comment on above: Performed By: #### P REGU #### [facility] [address] [place] [address] Dr. Jaz Barajas Hematocrit (Bld) [Volume fraction] 41.0 % Normal 36.0-48.0 [facility] Comment on above: Performed By: #### P REGU #### [facility] [address] [place] [address] Dr. Jaz Barajas Hemoglobin (Bld) [Mass/Vol] 13.6 g/dL Normal 12.0-16.0 [facility] Comment on above: Performed By: #### P REGU #### [facility] [address] [address] [address] Jaz Barajas IG # 0.03 10e3/ul Normal 0.00-0.03 [facility] Comment on above: Performed By: #### P REGU #### [facility] [address] [place] [address] Dr. Jaz Barajas IG % 0.3 % Normal 0.0-0.5 [facility] Comment on above: Performed By: #### P REGU #### [facility] [address] [place] [address] Dr. Jaz Barajas LYMPH # 2.7 103/ul Normal 1.2-3.8 [facility] Comment on above: Performed By: #### P REGU #### [facility] [address] [place] [address] Dr. Jaz Barajas Lymphocytes/100 WBC (Bld) 25.7 % Normal 20.5-60.0 [facility] Comment on above: Performed By: #### P REGU #### [facility] [address] [place] [address] Dr. Jaz Barajas MANUAL DIFF REQ NO Normal [facility] Comment on above: Performed By: #### P REGU #### [facility] [address] [place] [address] Dr. Jaz Barajas MCH (RBC) [Entitic mass] 27.7 pg Normal 26.7-34.0 [facility] Comment on above: Performed By: #### P REGU #### [facility] [address] [place] [address] Dr. Jaz Barajas MCHC (RBC) [Mass/Vol] 33.2 g/dL Normal 29.9-35.2 [facility] Comment on above: Performed By: #### P REGU #### [facility] [address] [place] [address] Dr. Jaz Barajas MCV (RBC) [Entitic vol] 83.5 fL Normal 81.0-99.0 [facility] Comment on above: Performed By: #### P REGU #### [facility] [address] [place] [address] Dr. Jaz Barajas MONO # 0.8 103/ul Normal 0.3-0.8 [facility] Comment on above: Performed By: #### P REGU #### [facility] [address] [place] [address] Dr. Jaz Barajas Monocytes/100 WBC (Bld) 7.4 % Normal 1.7-12.0 [facility] Comment on above: Performed By: #### P REGU #### [facility] [address] [place] [address] Dr. Jaz Barajas NEUT # 6.6 103/ul Critically high 1.4-6.5 [facility] Comment on above: Performed By: #### P REGU #### [facility] [address] [place] [address] Dr. Jaz Barajas Neutrophils/100 WBC (Bld) 63.6 % Normal 43.0-75.0 [facility] Comment on above: Performed By: #### P REGU #### [facility] [address] [place] [address] Dr. Jaz Barajas Platelet mean volume (Bld) [Entitic vol] 11.5 fL Normal 9.5-13.5 [facility] Comment on above: Performed By: #### P REGU #### [facility] [address] [place] [address] Dr. Jaz Barajas PLT 227 103/ul Normal 150-450 [facility] Comment on above: Performed By: #### P REGU #### [facility] [address] [place] [address] Dr. Jaz Barajas RBC 4.91 106/ul Normal 4.20-5.40 [facility] Comment on above: Performed By: #### P REGU #### [facility] [address] [address] [address] Jaz Barajas WBC 10.4 103/ul Normal 4.0-11.0 [facility] Comment on above: Performed By: #### P REGU #### [facility] [address] [place], [place] [address] Dr. Jaz Barajas CTA CHEST WO W [...] JEYSON BLANTON Date: 2022-01-09 09:47 Normal [facility] D-DIMERon 01-09-2022 D-DIMER 0.56 mg/L FEU Critically high 0.19-0.50 [facility] Comment on above: Result Comment: test repeated critical value verified Performed By: #### D DIM, PT, PTT #### [facility] [address] [place], [place] [address] Dr. Jaz Barajas D-DIMER COMMENTS SEE BELOW Normal [facility] Comment on above: Result Comment: Incr [...] By: #### D DIM, PT, PTT #### [facility] [address] [place] [address] Dr. Jaz Barajas ER URINE PROFILEon 2 Bilirubin Ql (U) Negative Normal NEGATIVE [facility] Comment on above: Performed By: #### P ROGLCM #### [facility] [address] [place] [address] Dr. Jaz Barajas Clarity (U) CLEAR Normal CLEAR [facility] Comment on above: Performed By: #### P ROGLCM #### [facility] [address] [place] [address] Dr. Jaz Barajas Color (U) YELLOW Normal YELLOW [facility] Comment on above: Performed By: #### P ROGLCM #### [facility] [address] [place] [address] Dr. Jaz MEDINA A micrscopic examina tion will be performed if indicated. Normal [facility] Comment on above: Performed By: #### P ROGLCM #### [facility] [address] [place] [address] Dr. Jaz Barajas Glucose Ql (U) 500 mg/dl Abnormal NEGATIVE [facility] Comment on above: Performed By: #### P ROGLCM #### [facility] [address] [place] [address] Dr. Jaz Barajas Hemoglobin Ql (U) Negative Normal NEGATIVE [facility] Comment on above: Performed By: #### P ROGLCM #### [facility] [address] [place] [address] Dr. Jaz Barajas Ketones Ql (U) Negative Normal NEGATIVE [facility] Comment on above: Performed By: #### P ROGLCM #### [facility] [address] [address] [address] Jaz Barajas LEUKOCYTES Negative Normal NEGATIVE [facility] Comment on above: Performed By: #### P ROGLCM #### [facility] [address] [address] [address] Jaz Barajas Nitrite Ql (U) Negative Normal NEGATIVE [facility] Comment on above: Performed By: #### P ROGLCM #### [facility] [address] [address] [address] Jaz Barajas pH (U) 6.0 [pH] Normal 5-9 [facility] Comment on above: Performed By: #### P ROGLCM #### [facility] [address] [place] [address] Dr. Jaz Barajas SPEC GRAVITY >=1.030 Abnormal 1.005-<=1.02 5 [facility] Comment on above: Performed By: #### P ROGLCM #### [facility] [address] [place] [address] Dr. Jaz Barajas UA PROTEIN Negative Normal NEGATIVE/ TRACE [facility] Comment on above: Performed By: #### P ROGLCM #### [facility] [address] [address] [address] Jaz Barajas UR MICRO IND NOT INDICATED Normal [facility] Comment on above: Performed By: #### P ROGLCM #### [facility] [address] [place] [address] Dr. Jaz Barajas Urobilinogen Qn (U) 0.2 {Oxana'U}/dL Normal 0.2 - 1.0 [facility] Comment on above: Performed By: #### P ROGLCM #### [facility] [address] [place] [address] Dr. Jaz Barajas PH VENOUS BLOODon 01-09-2022 PCO2 VENOUS 39.2 mmHg Critically low 40.0-52.0 [facility] Comment on above: Performed By: #### P HVEN #### [facility] [address] [place] [address] Dr. Jaz Barajas pH VENOUS 7.409 Normal 7.330-7.430 [facility] Comment on above: Performed By: #### P HVEN #### [facility] [address] [address] [address] Jaz Barajas URon 01-09-2022 , QUAL Negative Normal NEGATIVE [facility] Comment on above: Performed By: #### P REGU #### [facility] [address] [address] [address] Jaz Barajas PROF 14(COMP METB)on 022 Albumin [Mass/Vol] 3.2 g/dL Critically low 3.4-5.0 Th e [facility] Comment on above: Performed By: #### P REGU #### [facility] [address] [place] [address] Dr. Jaz Barajas Albumin/Globulin [Mass ratio] 0.8 {ratio} Normal [facility] Comment on above: Performed By: #### P REGU #### [facility] [address] [address] [address] Jaz Barajas ALP [Catalytic activity/Vol] 109 U/L Normal 46-116 [facility] Comment on above: Performed By: #### P REGU #### [facility] [address] [place] [address] Dr. Jaz Barajas ALT [Catalytic activity/Vol] 95 U/L Critically high 14-59 [facility] Comment on above: Performed By: #### P REGU #### [facility] [address] [address] [address] Jaz Barajas Anion gap [Moles/Vol] 11.7 mmol/L Normal [facility] Comment on above: Performed By: #### P REGU #### [facility] [address] [address] [address] Jaz Barajas AST [Catalytic activity/Vol] 44 U/L Critically high 15-37 [facility] Comment on above: Performed By: #### P REGU #### [facility] [address] [place] [address] Dr. Jaz Barajas Bilirubin [Mass/Vol] 0.3 mg/dL Normal 0.2-1.0 [facility] Comment on above: Performed By: #### P REGU #### [facility] [address] [address] [address] Jaz Barajas Calcium [Mass/Vol] 8.8 mg/dL Normal 8.5-10.1 [facility] Comment on above: Performed By: #### P REGU #### [facility] [address] [address] [address] Jaz Barajas Chloride [Moles/Vol] 102 mmol/L Normal 98-107 [facility] Comment on above: Performed By: #### P REGU #### [facility] [address] [address] [address] Jaz Barajas CO2 [Moles/Vol] 25.3 mmol/L Normal 21.0-32.0 [facility] Comment on above: Performed By: #### P REGU #### [facility] [address] [address] [address] Jaz Barajas Creatinine [Mass/Vol] 0.86 mg/dL Normal 0.55-1.02 [facility] Comment on above: Performed By: #### P REGU #### [facility] [address] [address] [address] Jaz Barajas EGFR-AF WELSH >60 Normal >=60 [facility] Comment on above: Performed By: #### P REGU #### [facility] [address] [address] [address] Jaz Barajas EGFR-NON AF WELSH >60 Normal >=60 [facility] Comment on above: Performed By: #### P REGU #### [facility] [address] [address] [address] Jaz Barajas Globulin (S) [Mass/Vol] 3.9 g/dL Normal [facility] Comment on above: Performed By: #### P REGU #### [facility] [address] [address] [address] Jaz Barajas Glucose [Mass/Vol] 230 mg/dL Critically high 74-106 [facility] Comment on above: Performed By: #### P REGU #### [facility] [address] [address] [address] Jaz Barajas Potassium [Moles/Vol] 4.0 mmol/L Normal 3.5-5.1 [facility] Comment on above: Performed By: #### P REGU #### [facility] [address] [address] [address] Jaz Barajas Protein [Mass/Vol] 7.1 g/dL Normal 6.4-8.2 [facility] Comment on above: Performed By: #### P REGU #### [facility] [address] [place] [address] Dr. Jaz Barajas Sodium [Moles/Vol] 135 mmol/L Critically low 136-145 Th [facility] Comment on above: Performed By: #### P REGU #### [facility] [address] [place] [address] Dr. Jaz Barajas Urea nitrogen [Mass/Vol] 15.0 mg/dL Normal 7.0-18.0 [facility] Comment on above: Performed By: #### P REGU #### [facility] [address] [place] [address] Dr. Jaz Barajas Urea nitrogen/Creatinin e [Mass ratio] 17.4 mg/mg Normal [facility] Comment on above: Performed By: #### P REGU #### [facility] [address] [place] [address] Dr. Jaz Barajas PROTIMEon 01-09-2022 INR Coag (PPP) [Relative time] 0.96 {INR} Normal [facility] Comment on above: Performed By: #### D DIM, PT, PTT #### [facility] [address] [place] [address] Dr. Jaz Barajas INR GUIDELINES SEE BELOW Normal [facility] Comment on above: Result Comment: UMU RED INR: 2.0 - 3.0 CONDITIONS NOT LISTED BELOW 2.5 - 3.5 FOR PROSTHETIC HEART VALVE REPLACEMENT 2.5 - 3.5 RECURRENT THROMBOSIS Performed By: #### D DIM, PT, PTT #### [facility] [address] [place] [address] Dr. Jaz Barajas PT Coag (PPP) [Time] 10.4 s Normal 9.0-11.6 [facility] Comment on above: Performed By: #### D DIM, PT, PTT #### [facility] [address] [place] [address] Dr. Jaz Barajas PTTon 01-09-2022 aPTT Coag (Bld) [Time] 28.8 s Normal 22.3-36.2 [facility] Comment on above: Performed By: #### D DIM, PT, PTT #### [facility] [address] [place] [address] Dr. Jaz Barajas TROPONIN, HIGH SENSITIVITYon 01-09-2022 HSTROP 4.5 pg/mL Normal 4.0-51.3 [facility] Comment on above: Result Comment: CUT- OFF POINTS HAVE BEEN ESTABLISHED BASED ON THE FOURTH UNIVERSAL DEFINITIONS OF MYOCARDIAL INFARCTION. THE UPPER REFERENCE LIMIT (URL) OF TROPONIN, DEFINED THE 99TH PERCENTILE OF cTnI DISTRIBUTION IN A REFERENCE POPULATION, HAS BEEN CONFIRMED THE DECISION THRESHOLD FOR MD DIAGNOSIS. Performed By: #### P ROGLCM #### [facility] [address] [place] [address] Dr. Jaz Barajas TSHon 01-09-2022 TSH 2.769 uIU/mL Normal 0.358-3.740 [facility] Comment on above: Performed By: #### P REGU #### [facility] [address] [place] [address] Dr. Jaz Barajas TSH RANGE SEE BELOW Normal [facility] Comment on above: Result Comment: <0.3 4 UIU/ml HYPERTHYROID 0.34-5.60 UIU/ml EUTHYROID >5.60 UIU/ml HYPOTHYROID Performed By: #### P REGU #### [facility] [address] [place] [address] Dr. Jaz Barajas XR CHEST 1 Von [...] JOSE EDUARDO RIVERS Date: 2022-01-09 08:29 Normal [facility] Social History Date Type Detail Facility Start: 02-20-2022 Tobacco smoking status Heavy t obacco smoker (finding) [facility] Tobacco smoking status Never [facility] Sex Assigned At Female [facility] Vital Signs Date Time Vital Sign Value Performing Clinician Faci lity 11-27-2023 12:54-0400 Body temperature 97.88 [degF] Riky Le [facility] 11-27-2023 12:54-0400 Diastolic blood pressure 86 mm[Hg] Riky Rey [facility] 11-27-2023 12:54-0400 Heart rate 78 /min Riky Le [facility] 11-27-2023 12:54-0400 Respiratory rate 20 /min Riky Le [facility] 11-27-2023 12:54-0400 SaO2% (BldA) [Mass fraction] 98 % Rkiy Le [facility] 11-27-2023 12:54-0400 Systolic blood pressure 133 mm[Hg] Riky Rey [facility] Functional Status Date Assessment Result Facility 11-27-2023 Functional Status N/A [facility] Hospital Discharge instructions 11-27-2023 Note Date [...] to strengthen the arm. General instructions Take euvi-mno-ppqtwaf and prescription medicines only as told by [...] provider. Document Revised: 05/03/2022 Document Reviewed: 05/03/2022 [employer] Patient Education 2022 [employer] Follow Up Care 11/27/2023 12:54:30 With:Georgi Pfeiffer Address: [address] [place], [place] [id number] Business (1) When:11/30/2023 15:21:31 [facility] Evaluation + Plan note 11-27-2023 Note Date [...] EDT, Weight Dosing XR Shoulder Complete Right [facility] Clinical Note 12-16-2022 Note Date & Type [...] by: HAYDE VAN Date: 2022-12-16 07:21 [facility] Clinical Note 12-16-2022 Note Date & [...] by: HAYDE VAN Date: 2022-12-16 07:17 [facility] Clinical Note 05-14-2022 Note Date & [...] General LMA. COMPLICATIONS: None. FINDINGS: A modified Adniel's T-tube in the left anterior middle ear. [...] the recovery room in good condition. The [facility] course Narrative Note Date & Type Note Facility Hospital course Narrative No data available for this section [facility] Progress note Note Date & Type Note Facility Progress note No data available for this section [facility] Summary Purpose Family History No Family History Records Found No data available for this section No Family History Records FoundNo Family History Records FoundNo Family History Records Found Advance Directives No Advanced Directives Records FoundNo Advanced Directives Records FoundNo Advanced Directives Records FoundNo Advanced Directives Records Found Additional Source Comments INFORMATION SOURCE (unrecogn ized section and content) DATE CREATED AUTHOR 12/19/2022 [facility] DATE CREATED AUTHOR AUTHOR'S ORGANIZ ATION 11/29/2023 [facility] DATE CREATED AUTHOR AUTHOR'S ORGANIZ ATION 01/18/[address] [facility] EPIC DATE CREATED AUTHOR AUTHOR'S ORGANIZ ATION 02/13/2024 [facility] Patient Care team informatio n (unrecognized section and content) Personnel Name: ARIANE WELLS CNP Address: Address: [address] [place] [id number] FOR RECORDS PERTAINING TO PATIENTS WHO ARE [...] BE BASED ON THE PRIMARY CLINICAL RECORDS. [facility] provides no warranty or guarantee of the accuracy or completeness of information in this document.
== END 2024-02-24 15:31 | disposition home or self-care (01) ==
LOC: MRI 15:30
PROVIDERS: PCP Nurse Practitioner; Visit Provider Anesthesiology
DX: M54.12 Radiculopathy, cervical region (principal); M50.221 Other cervical disc displacement at C4-C5 level
CPT/HCPCS: 72141

== ENCOUNTER 2024-03-03 15:02 | Outpatient (OUT) | payer MEDICAID, SELFPAY ==
--- NOTE | 2024-03-03 15:28 | P.CN_ITS ---
Consult Note: HPI Data of Consult Patient: known to practice within the last 3 years Consult date: 02/02/24 Requesting Physician: Shae Haro NP Primary Care Provider: Ariane Wells NP Consult Narrative Reason for consult: right neck, shoulder, arm pain Narrative: 33yof who presents for evaluation. several months of worsening right neck, shoulder, and arm pain that is worsened with activity. states that she initially felt something pop or tear in her right neck and shoulder area, which caused significant burning pain. 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 right shoulder xr did not show acute pathology. has engaged in a series of provider directed home exercises for right shoulder and neck pain for >6 weeks, without significant change. has tried muscle relaxer and celebrex, without significant benefit. denies adverse med side effects. Recent cervical MRI reveals stenosis as noted below cc:: CC: Shae Haro NP Review of Systems ROS Status of ROS 10 or more systems reviewed and unremark able except as noted in history and below Musculoskeletal Reports: neck pain PFSH PFSH Social History Smoking status: Current every day smoker Meds Home Medications and Allergies Home Medications ?Medication ?Instructions ?Recorded ?Confirmed ?Type aripiprazole 10 mg tablet 10 mg PO QDAY 02/04/23 02/17/24 History buspirone 10 mg tablet 10 mg PO BID 02/04/23 02/17/24 History calcium carbonate (Calcium 600) 600 mg PO DAILY 02/04/23 02/17/24 History calcium phosphate,dibasic 77 1 tab PO QDAY 02/04/23 02/17/24 History mg-vitamin D3 400 unit tablet fluoxetine 40 mg capsule 40 mg PO QDAY 02/04/23 02/17/24 History insulin regular hum U-500 conc 500 60 unit subcut TID 02/04/23 02/17/24 History unit/mL(3 mL) subcut pen (Humulin R U-500 (Conc) Insulin Kwikpen) magnesium 250 mg tablet 250 mg PO DAILY 02/04/23 02/17/24 History pantoprazole 40 mg tablet,delayed 40 mg PO Q12H PRN indigestion 02/04/23 02/17/24 History release spironolactone 50 mg tablet 50 mg PO QDAY 02/04/23 02/17/24 History trazodone 50 mg tablet 50 mg PO DAILY 02/04/23 02/17/24 History cholecalciferol (vitamin D3) 50 2,000 unit PO DAILY 02/02/24 02/17/24 History mcg (2,000 unit) tablet (Vitamin D3) empagliflozin 25 mg tablet 25 mg PO DAILY 02/02/24 02/17/24 History (Jardiance) gabapentin 100 mg capsule 100 mg PO TID 02/02/24 02/17/24 History metformin 500 mg tablet 500 mg PO BID 02/02/24 02/17/24 History Allergies Allergy/AdvReac Type Severity Reaction Status Date / Time prednisone AdvReac Severe hyperglycem Verified 04/22/23 19:08 ia Exam Narrative Exam Narrative: Psych-alert and oriented x 3.? Attentive and appropriate, constitutionally normal, displays normal mood and affect per situation.? There are no obvious deficits in memory, reasoning, or intellect.? Skin-no obvious rashes, bruising, or erythema noted to the patient's area of pain.? Extremities-upper extremities are warm with minimal edema and palpable pulses. Cervical- tenderness to palpation noted in the cervical spine and paraspinal musculature.? Pain is elicited with flexion, extension, and lateral rotation of the cervical spine.? Range of motion is diminished due to pain. Facet loading maneuvers are negative.? Strength-unremarkable and within normal limits with the exception to the right biceps, triceps. Sensory-no notable sensory deficits in the bilateral upper extremities to touch or pinprick with the exception to decreased sensation to the right C5, 6, 7 dermatomal distribution.? Coordination remains intact.? Gait remains non-antalgic. Constitutional Documenting provider has reviewed patient's vital signs: yes Common normals: no apparent distress, oriented x3, healthy appearing, alert and well nourished General appearance: cooperative HENMT Common normals: normocephalic, hearing grossly normal bilaterally and moist oral mucous membranes Head and scalp: normocephalic Eye Common normals: PERRL Pupil: PERRL Neck & C-Spine Common normals: full ROM General: normal visual inspection Chest Common normals: inspection of chest normal Respiratory Common normals: normal respiratory effort, no retractions and no use of accessory muscles Neuro Common normals: oriented x3, CN's II-XII intact bilaterally, moves all extremities, no focal motor deficits, no sensory deficits noted and deep tendon reflexes 2+ bilaterally Sensorium/orientation: alert Motor exam: strength 5/5 throughout and no movement abnormalities noted Psych Common normals: mental status grossly normal, thought process normal, lakia ative, affect normal, speech normal and activity/motor behavior normal Speech: normal speech Thought process: normal thought process Results Additional Findings Additional findings: If on a controlled substance or opioids, I have checked an [place] report on this patient and there are no aberrancies noted in the prescribing history.??If on a controlled substance or opioid a drug screen was completed and reviewed within the last year, and if there has not been a drug screen completed we ordered one today to monitor higher risk, state monitored pain medication use. As part of providing excellent, safe, comprehensive care, the following was completed at our patient's visit: 1. A medication reconciliation and review to ensure accurate knowledge of current/active medications, including asking our patients to inform us about any [id number] medications or herbal remedies/nutritional supplements/alternative remedies. 2. A review to specifically ensure our patients have had annual screening for screening for depression, screening for tobacco use, and screening for unhealthy alcohol use. For concerning screenings had a discussion with the patient, provided patient education, and recommended follow-up with primary care provider when appropriate. If patient noted with a risk of falling, they received education on strength, gait, and balance training to prevent future risk of falling. Assessment and Plan Assessment and Plan (1) Cervical stenosis of spinal canal: (2) Cervical radiculopathy: (3) Myofascial pain: Plan Cervical MRI reviewed with patient. patient took gabapentin 100mg one time with benefit but is not interested in taking medications regularly start tizanidine 4-8mg BID PRN pain/myofascial pain Right C3-4 C4-5 TFESI under fluoroscopy with 10mg PO valium 30-60mins prior to procedure due to anxiety, risks vs benefits reviewed f/u 2 weeks after [facility]
--- OUTSIDE RECORDS SUMMARY | 2024-03-03 15:31 | XMS_ITS | CCD ---
Author Organization [facility] Care Team Providers Care Account Services Specialist Name Role Phone AICHHOLZ, CEO ZIFF DAVIS ARIANE Attending Unavailable AICHHOLZ, CEO ZIFF DAVIS ARIANE Admitting Unavailable AICHHOLZ, CEO ZIFF DAVIS ARIANE Primary Care Unavailable JOSE EDUARDO RIVERS V Consulting Unavailable AICHHOLZ, CEO ZIFF DAVIS ARIANE Consulting Unavailable TIMMIS, DR MEJIA Consulting Unavailable AICHHOLZ, CEO ZIFF DAVIS ARIANE Primary Care Unavailable TIMMIS, DR MEJIA Attending Unavailable TIMMIS, DR MEJIA Admitting Unavailable MAGDI BRIGGS Consulting Unavailable PAY ., DR SWANSON Admitting Unavailable PAY ., DR SWANSON Consulting Unavailable AICHHOLZ, CEO ZIFF DAVIS ARIANE Primary Care Unavailable PAY ., DR SWANSON Attending Unavailable AICHHOLZ, CEO ZIFF DAVIS ARIANE Primary Care Unavailable KAITLIN, DR KLAUDIA Kay Attending Unavailabl e KAITLIN, DR KLAUDIA Kay Admitting Unavailabl e KAITLIN, DR KLAUDIA Kay Consulting Unavailabl e JEYSON BLANTON Consulting Unavailable AICHHOLZ, CEO ZIFF DAVIS ARIANE Primary Care Unavailable GABINO MUÑOZ Attending Unavailable GABINO MUÑOZ Admitting Unavailable AICHHOLZ, CEO ZIFF DAVIS ARIANE Primary Care Unavailable JOSE EDUARDO RIVERS V Consulting Unavailable JEYSON BLANTON Consulting Unavailable GABINO MUÑOZ Consulting Unavailable PAY ., DR SWANSON Admitting Unavailable PAY ., DR SWANSON Consulting Unavailable AICHHOLZ, CEO ZIFF DAVIS ARIANE Primary Care Unavailable PAY ., DR SWANSON Attending Unavailable GERALDINE LAZAR Consulting Unavailable CORDELL ., DR DEL RIO Attending Unavailable HAY ., DR DEL RIO Admitting Unavailable AICHHOLZ, CEO ZIFF DAVIS ARIANE Primary Care Unavailable HAY ., DR DEL RIO Consulting Unavailable GABINO MUÑOZ Attending Unavailable GLEN .GABINO Admitting Unavailable AICHHOLZ, CEO ZIFF DAVIS ARIANE Primary Care Unavailable DONTRELL DIAZ Consulting Unavailable GABINO MUÑOZ Consulting Unavailable JOSE EDUARDO RHODES Consulting Unavailable AICHHOLZ, CEO ZIFF DAVIS ARIANE Referring Unavailable AICHHOLZ, CEO ZIFF DAVIS ARIANE Primary Care Unavailable YUKIELFEGO BEJARANOMAD Attending Unavailable YUKI, AHMAD Admitting Unavailable YUKI, AHMAD Consulting Unavailable AICHHOLZ, CEO ZIFF DAVIS ARIANE Consulting Unavailable AICHHOLZ, CEO ZIFF DAVIS ARIANE Attending Unavailable AICHHOLZ, CEO ZIFF DAVIS ARIANE Admitting Unavailable AICHHOLZ, CEO ZIFF DAVIS ARIANE Primary Care Unavailable HAYDE VAN Consulting Unavailable AICHHOLZ, CEO ZIFF DAVIS ARIANE Consulting Unavailable AICHHOLZ, CEO ZIFF DAVIS ARIANE Attending Unavailable AICHHOLZ, CEO ZIFF DAVIS ARIANE Admitting Unavailable AICHHOLZ, CEO ZIFF DAVIS ARIANE Primary Care Unavailable AMINATA BOURGEOIS Attending Unavailable AMINATA BOURGEOIS Admitting Unavailable JEYSON BLANTON Consulting Unavailable AICHHOLZ, CEO ZIFF DAVIS ARIANE Primary Care Unavailable AMINATA BOURGEOIS Consulting Unavailable AICHHOLZ, CEO ZIFF DAVIS ARIANE Primary Care Unavailable FADI, DR MEJIA Consulting Unavailable FADI, DR MEJIA Attending Unavailable FADI, DR MEJIA Admitting Unavailable ELIDA COWAN Consulting Unava ilable AICHHOLZ, ARIANE J Primary Care Physician Riky Le Attending Unavailable AICHHOLZ, ARIANE Attending Unavailable AICHHOLZ, ARIANE Attending Unavailable Jose LEUNG, Rush Reid Attending Unavailable Allergies Allergy Classification Reported Allergen(s) Allergy Type Date of Onset Reaction(s) Facility (2 sources) predniSONE; Translations: [predniSONE] Drug Allergy 0 [facility] Repository (1 source) predniSONE; Translations: [prednisone] Drug Allergy 0 Slurred speech (finding), Tremor (finding) [facility] Elmer Medications Current Medications Medication Drug Class(es) Dates [...] # 20 tab(s), Refills(s) 0, Pharmacy: 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; Translations: [SNF USE ORAL 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 DX] Onset: 11-19-2022 Episodic Other aftercare (1 source) [facility]DC (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; Translations: [SNF CURRENT USE OF INSULIN] Onset: 11-11-2022 Episodic [...] Interpretation Reference Range Facility [facility] 11-28-2023 Forms [id number]#1.00TIFF Normal [facility] Consent for Treatmenton 10-31 Consent for Treatment [id number]#1.00TIFF Normal [facility] Discharge Instructionson Discharge Instructions [id number]#1.00TIFF Normal [facility] ED Clinical Summaryon 2023 ED Clinical Summary [place] [id number] ED Clinical Summary Person Information Name: JOHNSON VERA [facility] Age: 33 Years : 1990 Sex: [...] 11/27/2023 15:37:23 11/27/2023 15:37:23 11/27/2023 15:37:23 ADDRESS: [address] [place] [id number] PHYS DOC NOTES: MEDICAL INFORMATION: Prescriptions Given: [facility], [address] [place], [place] [id number], [phone] methocarbamol (Robaxin-750 oral tablet) 2 Tablets By [...] Follow up: With: Address: When: Georgi Pfeiffer [address] [place] [id number] L4 Mobile (1) In 3 days 11/30/2023 DIAGNOSIS: Pain in shoulder Normal [facility] ED Note-Physicianon 11-27-19 24 ED Note-Physician Basic Information Time Seen: Steven [...] day(s), # 18 tab(s), Refills(s) 0, Pharmacy: [facility] 1155, 160, cm, 11/27/23 12:59:00 EDT, Height/Length Dosing, 114.1, kg, 11/27/23 12:59:00 EDT, Weight Dosing naproxen, 500 mg = 1 tab(s), Oral, BID, PRN for pain, # 20 tab(s), Refills(s) 0, Pharmacy: [facility] 1155, 160, cm, 11/27/23 12:59:00 EDT, Height/Length [...] Pfeiffer In 3 days 11/30/2023 EDT [address] [place] [id number] L[address] (1) Additional Instructions: Patient Education Shoulder Pain [...] made to ensure accuracy, however, inadvertently computerized athletic training internship mistakes may be present. Appropriate healthcare PPE [...] 1000 mg= 2 tab(s), Oral, BID HumuLIN Peter Egan (Concentrated) Roma (more content not included)... Normal [facility] Comment on above: Result Comment: Elec tronically [...] strengthen the arm. General instructions ? Take bunz-ygt-qtweeop and prescription medicines only as told by [...] provider. Document Revised: 05/03/2022 Document Reviewed: 05/03/2022 [employer] Patient Education ? 2022 [employer]. Normal [facility] ED Patient Summaryon 024 ED Patient Summary (Inserted Image. Isadora ble to display) [place] [id number] Patient Discharge Instructions Person Information Name: JOHNSON VERA Age: 33 Years Arrival Date: 11/27/2023 12:52:48 Discharge Diagnosis: Pain in shoulder Primary Care Physician: ARIANE WELLS CNP Provider Information Primary Provider: Riky Le DO Advanced Janitor Cleaner:Steven Cardenas PA-C The exam and treatment you received in the Emergency Department were for an urgent problem and are not intended as complete care. It is important that you follow up with a doctor, nurse practitioner, or physician?s ophthalmic surgical assistant for ongoing care. If your symptoms [...] Instructions: With: Address: When: Georgi Pfeiffer [address] [id number] L4 Mobile (1) In 3 days 11/30/2023 In the event that this physician does not participate in your insurance network, please consult with your insurance company to find a nearby participating provider. Patient Education Materials: Shoulder Pain A MESSAGE TO ALL PATIENTS REGARDING OPIOIDS PRESCRIPTION OPIOIDS: WHAT YOU NEED TO KNOW Prescription opioids can be used to help relieve feeanmlp-dh-eyhotd pain and are often prescribed following a [...] be struggling with addiction, tell your health caretaker and ask for guidance or call [facility] National Helpline at 9-933-443-EQWJ. o Source: Department of a (more content not included)... Normal [facility] Formson 11-27-2023 Forms [id number]#[id number] Normal [facility] XR Shoulder Complete Righton 11-27-2023 XR [...] mGy = na DAP = na Normal [facility] CBC AUTO DIFFon 12-11-2022 BASO # 0.1 103/ul Normal 0.0-0.1 [facility] Comment on above: Performed By: #### P REGU #### [facility] [address] [place] [address] Dr. Jaz Barajas Basophils/100 WBC (Bld) 0.8 % Normal 0.2-2.0 [facility] Comment on above: Performed By: #### P REGU #### [facility] [address] [place] [address] [address] Jaz Barajas EO # 0.2 103/ul Normal 0.0-0.7 [facility] Comment on above: Performed By: #### P REGU #### [facility] [address] [place] [address] [address] Jaz Barajas Eosinophils/100 WBC (Bld) 2.1 % Normal 0.9-7.0 [facility] Comment on above: Performed By: #### P REGU #### [facility] [address] [place] [address] [address] Jaz Barajas Erythrocyte distribution width (RBC) [Ratio] 13.0 % Normal 11.0-15.0 [facility] Comment on above: Performed By: #### P REGU #### [facility] [address] [place] [address] [address] Jaz Barajas Hematocrit (Bld) [Volume fraction] 41.2 % Normal 36.0-48.0 [facility] Comment on above: Performed By: #### P REGU #### [facility] [address] [place] [address] Dr. Jaz Barajas Hemoglobin (Bld) [Mass/Vol] 13.7 g/dL Normal 12.0-16.0 [facility] Comment on above: Performed By: #### P REGU #### [facility] [address] [place] [address] Dr. Jaz Barajas IG # 0.02 10e3/ul Normal 0.00-0.03 [facility] Comment on above: Performed By: #### P REGU #### [facility] [address] [place] [address] Dr. Jaz Barajas IG % 0.2 % Normal 0.0-0.5 [facility] Comment on above: Performed By: #### P REGU #### [facility] [address] [place] [address] Dr. Jaz Barajas LYMPH # 3.3 103/ul Normal 1.2-3.8 [facility] Comment on above: Performed By: #### P REGU #### [facility] [address] [place] [address] Dr. Jaz Barajas Lymphocytes/100 WBC (Bld) 34.8 % Normal 20.5-60.0 [facility] Comment on above: Performed By: #### P REGU #### [facility] [address] [place] [address] Dr. Jaz Barajas MANUAL DIFF REQ NO Normal [facility] Comment on above: Performed By: #### P REGU #### [facility] [address] [place] [address] Dr. Jaz Barajas MCH (RBC) [Entitic mass] 26.6 pg Critically low 26.7-34.0 [facility] Comment on above: Performed By: #### P REGU #### [facility] [address] [place] [address] Dr. Jaz Barajas MCHC (RBC) [Mass/Vol] 33.3 g/dL Normal 29.9-35.2 [facility] Comment on above: Performed By: #### P REGU #### [facility] [address] [place] [address] Dr. Jaz Barajas MCV (RBC) [Entitic vol] 79.8 fL Critically low 81.0-99.0 [facility] Comment on above: Performed By: #### P REGU #### [facility] [address] [place] [address] Dr. Jaz Barajas MONO # 0.7 103/ul Normal 0.3-0.8 [facility] Comment on above: Performed By: #### P REGU #### [facility] [address] [place] [address] Dr. Jaz Barajas Monocytes/100 WBC (Bld) 7.3 % Normal 1.7-12.0 [facility] Comment on above: Performed By: #### P REGU #### [facility] [address] [place] [address] Dr. Jaz Barajas NEUT # 5.3 103/ul Normal 1.4-6.5 [facility] Comment on above: Performed By: #### P REGU #### [facility] [address] [place] [address] Dr. Jaz Barajas Neutrophils/100 WBC (Bld) 54.8 % Normal 43.0-75.0 [facility] Comment on above: Performed By: #### P REGU #### [facility] [address] [place] [address] Dr. Jaz Barajas Platelet mean volume (Bld) [Entitic vol] 10.7 fL Normal 9.5-13.5 [facility] Comment on above: Performed By: #### P REGU #### [facility] [address] [place] [address] Dr. Jaz Barajas PLT 284 103/ul Normal 150-450 [facility] Comment on above: Performed By: #### P REGU #### [facility] [address] [place] [address] Dr. Jaz Barajas RBC 5.16 106/ul Normal 4.20-5.40 [facility] Comment on above: Performed By: #### P REGU #### [facility] [address] [place] [address] Dr. Jaz Barajas WBC 9.6 103/ul Normal 4.0-11.0 [facility] Comment on above: Performed By: #### P REGU #### [facility] [address] [place] [address] [address] Jaz Barajas FREE T4on 12-11-2022 Free T4 [Mass/Vol] 1.10 ng/dL Normal 0.76-1.46 [facility] Comment on above: Performed By: #### P ROGLCM #### [facility] [address] [place] [address] [address] Jaz Barajas LIPID PROFILEon 12-11-2022 CHOL-HDL RATIO NORM SEE BELOW Normal [facility] Comment on above: Result Comment: 3.3 - 4.4 LOW RISK 4.4 - 7.1 AVERAGE RISK 7.1 - 11.0 MODERATE RISK >11.0 HIGH RISK Performed By: #### L IPID, TSH, CMP ####[facility] [address] [place] [address]Dr. Jaz Barajas Cholesterol [Mass/Vol] 168 mg/dL Normal <=200 [facility] Comment on above: Performed By: #### L IPID, TSH, CMP ####[facility] [address] [place] [address]Dr. Jaz Barajas Cholesterol in HDL [Mass/Vol] 32 mg/dL Critically low 40-60 [facility] Comment on above: Performed By: #### L IPID, TSH, CMP ####[facility] [address] [place] [address]Dr. Jaz Barajas Cholesterol in LDL [Mass/Vol] 121.8 mg/dL Normal [facility] Comment on above: Performed By: #### L IPID, TSH, CMP ####[facility] [address] [place] [address]Dr. Jaz Barajas Cholesterol.total/ Cholesterol in HDL [Mass ratio] 5.3 {ratio} Normal [facility] Comment on above: Performed By: #### L IPID, TSH, CMP ####[facility] [address] [place] [address]Dr. Jaz Barajas HDL NORMAL > or = 60 mg/dl - LO W CARDIOVASCULAR RISK <40 mg/dl - HIGH CARDIOVASCULAR RISK Normal [facility] Comment on above: Performed By: #### L IPID, TSH, CMP ####[facility] [address] [place] [address]Dr. Jaz Barajas LDL CALC NORMAL SEE BELOW Normal [facility] Comment on above: Result Comment: <100 mg/dl OPTIMAL 100 - 129 mg/dl NEAR OR ABOVE OPTIMAL 130 - 159 mg/dl BORDERLINE HIGH 160 - 189 mg/dl HIGH >190 mg/dl VERY HIGH Performed By: #### L IPID, TSH, CMP ####[facility] [address] [place] [address]DrPratibha Barajas Triglyceride [Mass/Vol] 71 mg/dL Normal <=150 [facility] Comment on above: Performed By: #### L IPID, TSH, CMP ####[facility] [address] [place] [address]DrPratibha Barajas VLDL CALC 14.2 mg/dL Normal [facility] Comment on above: Performed By: #### L IPID, TSH, CMP ####[facility] [address] [place] [address]DrPratibha Barajas MICROALBUMIN, RAND URon 11-30 mALB <1.3 Normal <=30.0 [facility] Comment on above: Performed By: #### P REGU #### [facility] [address] [place] [address] [address] Jaz Barajas PROF 14(COMP METB)on 023 Albumin [Mass/Vol] 3.7 g/dL Normal 3.4-5.0 [facility] Comment on above: Performed By: #### L IPID, TSH, CMP ####[facility] [address] [place] [address]DrPratibha Barajas Albumin/Globulin [Mass ratio] 0.8 {ratio} Normal [facility] Comment on above: Performed By: #### L IPID, TSH, CMP ####[facility] [address] [place] [address]DrPratibha Barajas ALP [Catalytic activity/Vol] 90 U/L Normal 46-116 [facility] Comment on above: Performed By: #### L IPID, TSH, CMP ####[facility] [address] [place] [address]Dr. Jaz Barajas ALT [Catalytic activity/Vol] 106 U/L Critically high 14-59 [facility] Comment on above: Performed By: #### L IPID, TSH, CMP ####[facility] [address] [place] [address]Dr. Jaz Barajas Anion gap [Moles/Vol] 12.5 mmol/L Normal [facility] Comment on above: Performed By: #### L IPID, TSH, CMP ####[facility] [address] [place], [place] [address]Dr. Jaz Barajas AST [Catalytic activity/Vol] 43 U/L Critically high 15-37 [facility] Comment on above: Performed By: #### L IPID, TSH, CMP ####[facility] [address] [place], [place] [address]Dr. Jaz Barajas Bilirubin [Mass/Vol] 0.4 mg/dL Normal 0.2-1.0 [facility] Comment on above: Performed By: #### L IPID, TSH, CMP ####[facility] [address] [place], [place] [address]Dr. Jaz Barajas Calcium [Mass/Vol] 9.0 mg/dL Normal 8.5-10.1 [facility] Comment on above: Performed By: #### L IPID, TSH, CMP ####[facility] [address] [place], [place] [address]Dr. Jaz Barajas Chloride [Moles/Vol] 104 mmol/L Normal 98-107 [facility] Comment on above: Performed By: #### L IPID, TSH, CMP ####[facility] [address] [place], [place] [address]Dr. Jaz Barajas CO2 [Moles/Vol] 25.8 mmol/L Normal 21.0-32.0 [facility] Comment on above: Performed By: #### L IPID, TSH, CMP ####[facility] [address] [place], [place] [address]Dr. Jaz Barajas Creatinine [Mass/Vol] 0.76 mg/dL Normal 0.55-1.02 [facility] Comment on above: Performed By: #### L IPID, TSH, CMP ####[facility] [address] [place] [address]Dr. Jaz Barajas EGFR-AF KITTITIAN >60 Normal >=60 [facility] Comment on above: Performed By: #### L IPID, TSH, CMP ####[facility] [address] [place] [address]Dr. Jaz Barajas EGFR-NON AF KITTITIAN >60 Normal >=60 [facility] Comment on above: Performed By: #### L IPID, TSH, CMP ####[facility] [address] [place], [place] [address]Dr. Jaz Barajas Globulin (S) [Mass/Vol] 4.4 g/dL Normal [facility] Comment on above: Performed By: #### L IPID, TSH, CMP ####[facility] [address] [place], [place] [address]Dr. Jaz Barajas Glucose [Mass/Vol] 228 mg/dL Critically high 74-106 [facility] Comment on above: Performed By: #### L IPID, TSH, CMP ####[facility] [address] [place], [place] [address]Dr. Jaz Barajas Potassium [Moles/Vol] 4.3 mmol/L Normal 3.5-5.1 [facility] Comment on above: Performed By: #### L IPID, TSH, CMP ####[facility] [address] [place], [place] [address]Dr. Jaz Barajas Protein [Mass/Vol] 8.1 g/dL Normal 6.4-8.2 [facility] Comment on above: Performed By: #### L IPID, TSH, CMP ####[facility] [address] [place], [place] [address]Dr. Jaz Barajas Sodium [Moles/Vol] 138 mmol/L Normal 136-145 [facility] Comment on above: Performed By: #### L IPID, TSH, CMP ####[facility] [address] [place] [address]Dr. Jaz Barajas Urea nitrogen [Mass/Vol] 21.0 mg/dL Critically high 7.0-18.0 [facility] Comment on above: Performed By: #### L IPID, TSH, CMP ####[facility] [address] [place] [address]Dr. Jaz Barajas Urea nitrogen/Creatinin e [Mass ratio] 27.6 mg/mg Normal [facility] Comment on above: Performed By: #### L IPID, TSH, CMP ####[facility] [address] [place], [place] [address]Dr. Jaz Barajas TSHon 12-11-2022 TSH 3.602 uIU/mL Normal 0.358-3.740 [facility] Comment on above: Performed By: #### L IPID, TSH, CMP ####[facility] [address] [place], [place] [address]Dr. Jaz Barajas UA RANDOM W/MICROSCOPICon BACTERIA NONE SEEN Normal NONE SEEN [facility] Comment on above: Performed By: #### U AMIC ####[facility] [address] [place], [place] [address]Dr. Jaz Barajas Bilirubin Ql (U) Negative Normal NEGATIVE [facility] Comment on above: Performed By: #### U AMIC ####[facility] [address] [place], [place] [address]Dr. Jaz Barajas CAST NONE SEEN Normal NONE SEEN [facility] Comment on above: Performed By: #### U AMIC ####[facility] [address] [place], [place] [address]Dr. Jaz Barajas Clarity (U) CLEAR Normal CLEAR [facility] Comment on above: Performed By: #### U AMIC ####[facility] [address] [place] [address]Dr. Jaz Barajas Color (U) LT. YELLOW Normal YELLOW [facility] Comment on above: Performed By: #### U AMIC ####[facility] [address] [place] [address]Dr. Jaz Barajas Crystals LM Nom (Urine sed) NONE SEEN Normal NONE SEEN [facility] Comment on above: Performed By: #### U AMIC ####[facility] [address] [place], [place] [address]Dr. Jaz Barajas Epithelial cells LM Ql (Urine sed) RARE Normal NONE SEEN /RARE [facility] Comment on above: Performed By: #### U AMIC ####[facility] [address] [place], [place] [address]Dr. Jaz Barajas Glucose Ql (U) >1000 Abnormal NEGATIVE [facility] [facility] Comment on above: Performed By: #### U AMIC ####[facility] X[address] [place], [place] [address]Dr. Jaz Barajas Hemoglobin Ql (U) Negative Normal NEGATIVE [facility] Comment on above: Performed By: #### U AMIC ####[facility] [address]xq[address] [place], [place] [address]Dr. Jaz Barajas Ketones Ql (U) Negative Normal NEGATIVE [facility] Comment on above: Performed By: #### U AMIC ####[facility] [address] [place], [place] [address]Dr. Jaz Barajas LEUKOCYTES Negative Normal NEGATIVE [facility] Comment on above: Performed By: #### U AMIC ####[facility] T[address] [place], [place] [address]Dr. Jaz Barajas MUCOUS NONE SEEN Normal NONE SEEN [facility] Comment on above: Performed By: #### U AMIC ####[facility] V[address]xkl[address] [place], [place] [address]Dr. Jaz Barajas Nitrite Ql (U) Negative Normal NEGATIVE [facility] Comment on above: Performed By: #### U AMIC ####[facility] Airbqks[address] [place], [place] [address]Dr. Jaz Barajas pH (U) 6.0 [pH] Normal 5-9 [facility] Comment on above: Performed By: #### U AMIC ####[facility] Y[address] [place], [place] [address]Dr. Jaz Barajas RBC NONE SEEN Abnormal 0-2 [facility] Comment on above: Performed By: #### U AMIC ####[facility] [address] [place] [address]DrPratibha Barajas SPEC GRAVITY 1.020 Normal 1.005-<=1.02 5 [facility] Comment on above: Performed By: #### U AMIC ####[facility] [address] [place] [address]DrPratibha Barajas UA PROTEIN Negative Normal NEGATIVE/ TRACE [facility] Comment on above: Performed By: #### U AMIC ####[facility] [address] [place] [address]DrPratibha Barajas Urobilinogen Qn (U) 0.2 {Oxana'U}/dL Normal 0.2 - 1.0 [facility] Comment on above: Performed By: #### U AMIC ####[facility] [address] [place] [address]DrPratibha Barajas WBC 0-2 Abnormal NONE SEEN [facility] Comment on above: Performed By: #### U AMIC ####[facility] Gu[address] [place], [place] [address]Dr. Jaz Barajas VITAMIN D 25 OHon 12-11-2022 VIT D 25-OH 30.9 ng/mL Normal [facility] Comment on above: Performed By: #### P VALENTINELCM #### [facility] [address] [place] [address] Dr. Jaz Barajas VIT D RANGES SEE BELOW Normal [facility] Comment on above: Result Comment: <20 ng/mL Vit D deficient 20 - <30 ng/mL Vit D insufficient 30 - 100 ng/mL Vit D sufficient >100 ng/mL Potential Toxicity Performed By: #### P VALENTINELCM #### [facility] [address] [place] [address] Dr. Jaz Barajas CBC AUTO DIFFon 11-15-2022 BASO # 0.1 103/ul Normal 0.0-0.1 [facility] Comment on above: Performed By: #### P VALENTINELCM #### [facility] [address] [place] [address] Dr. Jaz Barajas Basophils/100 WBC (Bld) 0.6 % Normal 0.2-2.0 [facility] Comment on above: Performed By: #### P ROGLCM #### [facility] [address] [place] [address] Dr. Jaz Barajas EO # 0.2 103/ul Normal 0.0-0.7 [facility] Comment on above: Performed By: #### P ROGLCM #### [facility] [address] [place] [address] Dr. Jaz Barajas Eosinophils/100 WBC (Bld) 2.0 % Normal 0.9-7.0 [facility] Comment on above: Performed By: #### P ROGLCM #### [facility] [address] [place] [address] Dr. Jaz Barajas Erythrocyte distribution width (RBC) [Ratio] 13.3 % Normal 11.0-15.0 [facility] Comment on above: Performed By: #### P ROGLCM #### [facility] [address] [place] [address] Dr. Jaz Barajas Hematocrit (Bld) [Volume fraction] 40.4 % Normal 36.0-48.0 [facility] Comment on above: Performed By: #### P ROGLCM #### [facility] [address] [place] [address] Dr. Jaz Barajas Hemoglobin (Bld) [Mass/Vol] 13.5 g/dL Normal 12.0-16.0 [facility] Comment on above: Performed By: #### P ROGLCM #### [facility] [address] [place] [address] Dr. Jaz Barajas IG # 0.03 10e3/ul Normal 0.00-0.03 [facility] Comment on above: Performed By: #### P ROGLCM #### [facility] [address] [place] [address] Dr. Jaz Barajas IG % 0.3 % Normal 0.0-0.5 [facility] Comment on above: Performed By: #### P ROGLCM #### [facility] [address] [address] [address] Jaz Barajas LYMPH # 3.3 103/ul Normal 1.2-3.8 [facility] Comment on above: Performed By: #### P ROGLCM #### [facility] [address] [address] [address] Jaz Barajas Lymphocytes/100 WBC (Bld) 30.7 % Normal 20.5-60.0 [facility] Comment on above: Performed By: #### P ROGLCM #### [facility] [address] [place] [address] Dr. Jaz Barajas MANUAL DIFF REQ NO Normal [facility] Comment on above: Performed By: #### P ROGLCM #### [facility] [address] [place] [address] Dr. Jaz Barajas MCH (RBC) [Entitic mass] 26.6 pg Critically low 26.7-34.0 [facility] Comment on above: Performed By: #### P ROGLCM #### [facility] [address] [place] [address] Dr. Jaz Barajas MCHC (RBC) [Mass/Vol] 33.4 g/dL Normal 29.9-35.2 [facility] Comment on above: Performed By: #### P ROGLCM #### [facility] [address] [place] [address] Dr. Jaz Barajas MCV (RBC) [Entitic vol] 79.7 fL Critically low 81.0-99.0 [facility] Comment on above: Performed By: #### P ROGLCM #### [facility] [address] [address] [address] Jaz Barajas MONO # 0.8 103/ul Normal 0.3-0.8 [facility] Comment on above: Performed By: #### P ROGLCM #### [facility] [address] [place] [address] Dr. Jaz Barajas Monocytes/100 WBC (Bld) 7.4 % Normal 1.7-12.0 [facility] Comment on above: Performed By: #### P ROGLCM #### [facility] [address] [address] [address] Jaz Barajas NEUT # 6.3 103/ul Normal 1.4-6.5 [facility] Comment on above: Performed By: #### P ROGLCM #### [facility] [address] [address] [address] Jaz Barajas Neutrophils/100 WBC (Bld) 59.0 % Normal 43.0-75.0 [facility] Comment on above: Performed By: #### P ROGLCM #### [facility] [address] [address] [address] Jaz Barajas Platelet mean volume (Bld) [Entitic vol] 10.7 fL Normal 9.5-13.5 [facility] Comment on above: Performed By: #### P ROGLCM #### [facility] [address] [address] [address] Jaz Barajas PLT 326 103/ul Normal 150-450 [facility] Comment on above: Performed By: #### P ROGLCM #### [facility] [address] [address] [address] Jaz Barajas RBC 5.07 106/ul Normal 4.20-5.40 [facility] Comment on above: Performed By: #### P ROGLCM #### [facility] [address] [address] [address] Jaz Barajas WBC 10.7 103/ul Normal 4.0-11.0 [facility] Comment on above: Performed By: #### P ROGLCM #### [facility] [address] [place] [address] ABD/PELV W CONon [...] GERALDINE LAZAR Date: 2022-11-15 09:13 Normal [facility] ER URINE PROFILEon 3 Bilirubin Ql (U) Negative Normal NEGATIVE [facility] Comment on above: Performed By: #### P ROGLCM #### [facility] [address] [place] [address] Dr. Jaz Barajas Clarity (U) CLEAR Normal CLEAR [facility] Comment on above: Performed By: #### P ROGLCM #### [facility] [address] [address] [address] Jaz Barajas Color (U) LT. YELLOW Normal YELLOW [facility] Comment on above: Performed By: #### P ROGLCM #### [facility] [address] [address] [address] Jaz Barajas ERUELFEGOD A micrscopic examina tion will be performed if indicated. Normal [facility] Comment on above: Performed By: #### P ROGLCM #### [facility] [address] [address] [address] Jaz Barajas Glucose Ql (U) 1000 mg/dl Abnormal NEGATIVE [facility] Comment on above: Performed By: #### P ROGLCM #### [facility] [address] [place] [address] Dr. Jaz Barajas Hemoglobin Ql (U) Negative Normal NEGATIVE [facility] Comment on above: Performed By: #### P ROGLCM #### [facility] [address] [place] [address] Dr. Jaz Barajas Ketones Ql (U) Negative Normal NEGATIVE [facility] Comment on above: Performed By: #### P ROGLCM #### [facility] [address] [place] [address] Dr. Jaz Barajas LEUKOCYTES Negative Normal NEGATIVE [facility] Comment on above: Performed By: #### P ROGLCM #### [facility] [address] [place] [address] Dr. Jaz Barajas Nitrite Ql (U) Negative Normal NEGATIVE [facility] Comment on above: Performed By: #### P ROGLCM #### [facility] [address] [place] [address] Dr. Jaz Barajas pH (U) 6.0 [pH] Normal 5-9 [facility] Comment on above: Performed By: #### P ROGLCM #### [facility] [address] [place] [address] Dr. Jaz Barajas SPEC GRAVITY 1.015 Normal 1.005-<=1.02 5 [facility] Comment on above: Performed By: #### P ROGLCM #### [facility] [address] [place] [address] Dr. Jaz Barajas UA PROTEIN Negative Normal NEGATIVE/ TRACE [facility] Comment on above: Performed By: #### P ROGLCM #### [facility] [address] [place] [address] Dr. Jaz Barajas UR MICRO IND NOT INDICATED Normal [facility] Comment on above: Performed By: #### P ROGLCM #### [facility] [address] [place] [address] Dr. Jaz Barajas Urobilinogen Qn (U) 0.2 {Oxana'U}/dL Normal 0.2 - 1.0 [facility] Comment on above: Performed By: #### P ROGLCM #### [facility] [address] [address] [address] Jaz Barajas LIPASEon 11-15-2022 Lipase [Catalytic activity/Vol] 73.0 U/L Normal 73.0-393.0 [facility] Comment on above: Performed By: #### P REGU #### [facility] [address] [place] [address] Dr. Jaz Barajas URon 11-15-2022 , QUAL Negative Normal NEGATIVE [facility] Comment on above: Performed By: #### E RUR, PREGU ####[facility] [address] [place] [address]Dr. Jaz Barajas PROF 14(COMP METB)on 023 Albumin [Mass/Vol] 3.6 g/dL Normal 3.4-5.0 [facility] Comment on above: Performed By: #### P REGU #### [facility] [address] [place] [address] Dr. Jaz Barajas Albumin/Globulin [Mass ratio] 0.9 {ratio} Normal [facility] Comment on above: Performed By: #### P REGU #### [facility] [address] [place] [address] Dr. Jaz Barajas ALP [Catalytic activity/Vol] 98 U/L Normal 46-116 [facility] Comment on above: Performed By: #### P REGU #### [facility] [address] [address] [address] Jaz Barajas ALT [Catalytic activity/Vol] 138 U/L Critically high 14-59 [facility] Comment on above: Performed By: #### P REGU #### [facility] [address] [place] [address] Dr. Jaz Barajas Anion gap [Moles/Vol] 13.4 mmol/L Normal [facility] Comment on above: Performed By: #### P REGU #### [facility] [address] [place] [address] Dr. Jaz Barajas AST [Catalytic activity/Vol] 61 U/L Critically high 15-37 [facility] Comment on above: Performed By: #### P REGU #### [facility] [address] [place] [address] Dr. Jaz Barajas Bilirubin [Mass/Vol] 0.2 mg/dL Normal 0.2-1.0 [facility] Comment on above: Performed By: #### P REGU #### [facility] [address] [place] [address] Dr. Jaz Barajas Calcium [Mass/Vol] 9.4 mg/dL Normal 8.5-10.1 [facility] Comment on above: Performed By: #### P REGU #### [facility] [address] [place] [address] Dr. Jaz Barajas Chloride [Moles/Vol] 104 mmol/L Normal 98-107 [facility] Comment on above: Performed By: #### P REGU #### [facility] [address] [place] [address] Dr. Jaz Barajas CO2 [Moles/Vol] 24.7 mmol/L Normal 21.0-32.0 [facility] Comment on above: Performed By: #### P REGU #### [facility] [address] [place] [address] Dr. Jaz Barajas Creatinine [Mass/Vol] 0.69 mg/dL Normal 0.55-1.02 [facility] Comment on above: Performed By: #### P REGU #### [facility] [address] [place] [address] Dr. Jaz Barajas EGFR-AF KITTITIAN >60 Normal >=60 [facility] Comment on above: Performed By: #### P REGU #### [facility] [address] [place] [address] Dr. Jaz Barajas EGFR-NON AF KITTITIAN >60 Normal >=60 [facility] Comment on above: Performed By: #### P REGU #### [facility] [address] [place] [address] Dr. Jaz Barajas Globulin (S) [Mass/Vol] 4.2 g/dL Normal [facility] Comment on above: Performed By: #### P REGU #### [facility] [address] [address] [address] Jaz Barajas Glucose [Mass/Vol] 339 mg/dL Critically high 74-106 [facility] Comment on above: Performed By: #### P REGU #### [facility] [address] [place] [address] [address] Jaz Barajas Potassium [Moles/Vol] 4.1 mmol/L Normal 3.5-5.1 [facility] Comment on above: Performed By: #### P REGU #### [facility] [address] [address] [address] Jaz Barajas Protein [Mass/Vol] 7.8 g/dL Normal 6.4-8.2 [facility] Comment on above: Performed By: #### P REGU #### [facility] [address] [address] [address] Jaz Barajas Sodium [Moles/Vol] 138 mmol/L Normal 136-145 [facility] Comment on above: Performed By: #### P REGU #### [facility] [address] [address] [address] Jaz Barajas Urea nitrogen [Mass/Vol] 17.0 mg/dL Normal 7.0-18.0 [facility] Comment on above: Performed By: #### P REGU #### [facility] [address] [address] [address] Jaz Barajas Urea nitrogen/Creatinin e [Mass ratio] 24.6 mg/mg Normal [facility] Comment on above: Performed By: #### P REGU #### [facility] [address] [address] [address] Jaz Barajas CULTURE WOUNDon 11-13-2022 CULTURE [...] F Tetracycline >=16 R F Normal [facility] Comment on above: Performed By: #### W OUNDCX ####[facility] [address] [place], [place] [address]VaDr. Jaz Barajas Covid-19 PCR ([facility])on 08-01 SARS-CoV-2 (COVID-19) RNA REANNA+probe Ql (Unsp spec) Not detected Normal NOT DETECTED [facility] Comment on above: Result Comment: This test is not yet approved or cleared by the [place] FDA. When there are no FDA-approved or cleared tests available, and other criteria are met, FDA can make tests available under an emergency access mechanism called an Emergency Use Authorization (EUA). The EUA for this test is supported by the [place] of Health and Human Service's (HHS's) declaration [...] SARS-CoV-2. Performed By: #### P ROGLCM #### [facility] [address] [id number] [address] Jaz Barajas INFLUENZA A AND B AGon 08-[facility] BELOW Normal [facility] Comment on above: Result Comment: Nega tive for Flu A protein angiten. Infection due to Flu A cannot be ruled out. Flu A angiten in the sample may be below the detection limit of the test. Performed By: #### P ROGLCM #### [facility] [address] [address] [address] Jaz Barajas INFLUBNEGH SEE BELOW Normal [facility] Comment on above: Result Comment: Nega tive for Flu B protein antigen. Infection due to Flu B cannot be ruled out. Flu B antigen in the sample may be below the detection limit of the test. Performed By: #### P ROGLCM #### [facility] [address] [address] [address] Jaz Barajas INFLUENZA A AG Negative Normal NEGATIVE SEE COMMENT [facility] Comment on above: Performed By: #### P ROGLCM #### [facility] [address] [address] [address] Jaz Barajas INFLUENZA B AG Negative Normal NEGATIVE SEE COMMENT [facility] Comment on above: Performed By: #### P ROGLCM #### [facility] [address] [address] [address] Jaz Barajas INTERNAL CONTROLS Within Normal Limits Normal Wi thin Normal Limits [facility] Comment on above: Performed By: #### P ROGLCM #### [facility] [address] [address] [address] Jaz Barajas POINT OF CARE GLUCOSEon - Glucose [Mass/Vol] 310 mg/dL Critically high 74-106 [facility] Comment on above: Performed By: #### P ROGLCM #### [facility] [address] [address] [address] Jaz Barajas XR CHEST 1 Von [...] EDUARDO RHODES Date: 2022-08-18 15:33 Normal [facility] PREG HCG QUALon 05-14-2022 , QUAL Negative Normal NEGATIVE [facility] Comment on above: Performed By: #### P REG ####[facility] [address] [place] [address]Dr. Jaz Barajas CBC AUTO DIFFon 05-08-2022 BASO # 0.1 103/ul Normal 0.0-0.1 [facility] Comment on above: Performed By: #### C BC ####[facility] [address] [place] [address]Dr. Jaz Barajas Basophils/100 WBC (Bld) 0.6 % Normal 0.2-2.0 [facility] Comment on above: Performed By: #### C BC ####[facility] [address] [place], [place] [address]Dr. Hannahisela Karl EO # 0.2 103/ul Normal 0.0-0.7 [facility] Comment on above: Performed By: #### C BC ####[facility] [address] [place], [place] [address]Dr. Jaz Karl Eosinophils/100 WBC (Bld) 1.5 % Normal 0.9-7.0 [facility] Comment on above: Performed By: #### C BC ####[facility] [address] [place], [place] [address]Dr. Jaz Karl Erythrocyte distribution width (RBC) [Ratio] 12.6 % Normal 11.0-15.0 [facility] Comment on above: Performed By: #### C BC ####[facility] [address] [place], [place] [address]Dr. Jaz Barajas Hematocrit (Bld) [Volume fraction] 38.7 % Normal 36.0-48.0 [facility] Comment on above: Performed By: #### C BC ####[facility] [address] [place], [place] [address]Dr. Hannahisela Karl Hemoglobin (Bld) [Mass/Vol] 12.9 g/dL Normal 12.0-16.0 [facility] Comment on above: Performed By: #### C BC ####[facility] [address] [place], [place] [address]Dr. Jaz Barajas IG # 0.02 10e3/ul Normal 0.00-0.03 [facility] Comment on above: Performed By: #### C BC ####[facility] [address] [place], [place] [address]Dr. Jaz Barajas IG % 0.2 % Normal 0.0-0.5 [facility] Comment on above: Performed By: #### C BC ####[facility] [address] [place] [address]Dr. Jaz Barajas LYMPH # 3.5 103/ul Normal 1.2-3.8 [facility] Comment on above: Performed By: #### C BC ####[facility] [address] [place] [address]Dr. Jaz Barajas Lymphocytes/100 WBC (Bld) 34.4 % Normal 20.5-60.0 [facility] Comment on above: Performed By: #### C BC ####[facility] [address] [place], [place] [address]DrPratibha Barajas MANUAL DIFF REQ NO Normal [facility] Comment on above: Performed By: #### C BC ####[facility] [address] [place], [place] [address]Dr. Hannahisela Barajas MCH (RBC) [Entitic mass] 27.2 pg Normal 26.7-34.0 [facility] Comment on above: Performed By: #### C BC ####[facility] [address] [place], [place] [address]Dr. Jaz Karl MCHC (RBC) [Mass/Vol] 33.3 g/dL Normal 29.9-35.2 [facility] Comment on above: Performed By: #### C BC ####[facility] [address] [place], [place] [address]DrPratibha Barajas MCV (RBC) [Entitic vol] 81.6 fL Normal 81.0-99.0 [facility] Comment on above: Performed By: #### C BC ####[facility] [address] [place], [place] [address]DrPratibha Barajas MONO # 0.7 103/ul Normal 0.3-0.8 [facility] Comment on above: Performed By: #### C BC ####[facility] [address] [place], [place] [address]DrPratibha Barajas Monocytes/100 WBC (Bld) 7.0 % Normal 1.7-12.0 [facility] Comment on above: Performed By: #### C BC ####[facility] [address] [place] [address]Dr. Jaz Barajas NEUT # 5.7 103/ul Normal 1.4-6.5 [facility] Comment on above: Performed By: #### C BC ####[facility] [address] [place] [address]Dr. Jaz Barajas Neutrophils/100 WBC (Bld) 56.3 % Normal 43.0-75.0 [facility] Comment on above: Performed By: #### C BC ####[facility] [address] [place] [address]Dr. Jaz Barajas Platelet mean volume (Bld) [Entitic vol] 11.0 fL Normal 9.5-13.5 [facility] Comment on above: Performed By: #### C BC ####[facility] [address] [place] [address]Dr. Jaz Barajas PLT 274 103/ul Normal 150-450 [facility] Comment on above: Performed By: #### C BC ####[facility] [address] [place] [address]Dr. Jaz Barajas RBC 4.74 106/ul Normal 4.20-5.40 [facility] Comment on above: Performed By: #### C BC ####[facility] [address] [place], [place] [address]Dr. Jaz Barajas WBC 10.0 103/ul Normal 4.0-11.0 [facility] Comment on above: Performed By: #### C BC ####[facility] [address] [place], [place] [address]Dr. Jaz Barajas Covid-19 PCR (CVDTB)on SARS-CoV-2 (COVID-19) RNA REANNA+probe Ql (Unsp spec) Not detected Normal NOT DETECTED [facility] Comment on above: Result Comment: This test is not yet approved or cleared by the [place] FDA. When there are no FDA-approved or cleared tests available, and other criteria are met, FDA can make tests available under an emergency access mechanism called an Emergency Use Authorization (EUA). The EUA for this test is supported by the [employer] of Health and Human Service's (HHS's) declaration [...] SARS-CoV-2. Performed By: #### P REGU #### [facility] [address] [place] [address] Dr. Jaz Barajas PROF CHEM 8 (BAS METB)on Anion gap [Moles/Vol] 10.1 mmol/L Normal [facility] Comment on above: Performed By: #### P REGU #### [facility] [address] [place] [address] Dr. Jaz Barajas Calcium [Mass/Vol] 9.0 mg/dL Normal 8.5-10.1 [facility] Comment on above: Performed By: #### P REGU #### [facility] [address] [place] [address] Dr. Jaz Barajas Chloride [Moles/Vol] 99 mmol/L Normal 98-107 [facility] Comment on above: Performed By: #### P REGU #### [facility] [address] [place] [address] Dr. Jaz Barajas CO2 [Moles/Vol] 29.1 mmol/L Normal 21.0-32.0 [facility] Comment on above: Performed By: #### P REGU #### [facility] [address] [place] [address] Dr. Jaz Barajas Creatinine [Mass/Vol] 0.80 mg/dL Normal 0.55-1.02 [facility] Comment on above: Performed By: #### P REGU #### [facility] [address] [place] [address] Dr. Jaz Barajas EGFR-AF KITTITIAN >60 Normal >=60 [facility] Comment on above: Performed By: #### P REGU #### [facility] [address] [place] [address] Dr. Jaz Barajas EGFR-NON AF KITTITIAN >60 Normal >=60 [facility] Comment on above: Performed By: #### P REGU #### [facility] [address] [place] [address] Dr. Jaz Barajas Glucose [Mass/Vol] 217 mg/dL Critically high 74-106 [facility] Comment on above: Performed By: #### P REGU #### [facility] [address] [place] [address] Dr. Jaz Barajas Potassium [Moles/Vol] 4.2 mmol/L Normal 3.5-5.1 [facility] Comment on above: Result Comment: spec imen slightly hemolyzed may affect K+ result Performed By: #### P REGU #### [facility] [address] [place] [address] Dr. Jaz Barajas Sodium [Moles/Vol] 134 mmol/L Critically low 136-145 Th [facility] Comment on above: Performed By: #### P REGU #### [facility] [address] [place] [address] Dr. Jaz Barajas Urea nitrogen [Mass/Vol] 11.0 mg/dL Normal 7.0-18.0 [facility] Comment on above: Performed By: #### P REGU #### [facility] [address] [place] [address] Dr. Jaz Barajas Urea nitrogen/Creatinin e [Mass ratio] 13.8 mg/mg Normal [facility] Comment on above: Performed By: #### P REGU #### [facility] [address] [place] [address] ABD/PELV W CONon 04-18-[address] ABD/PELV W CON EXAMINATION: CT ABD/ [...] JEYSON BLANTON Date: 2022-04-18 12:31 Normal [facility] ER URINE PROFILEon 2 Bilirubin Ql (U) Negative Normal NEGATIVE [facility] Comment on above: Performed By: #### E GLORIA PREGU ####[facility] [address] [place] [address]Dr. Jaz Barajas Clarity (U) CLEAR Normal CLEAR [facility] Comment on above: Performed By: #### E GLORIA PREGU ####[facility] [address] [place] [id number] Barajas Color (U) LT. YELLOW Normal YELLOW [facility] Comment on above: Performed By: #### E RUR, PREGU ####[facility] [address] [place], [place] [address]Dr. Jaz MEDINA A micrscopic examina tion will be performed if indicated. Normal [facility] Comment on above: Performed By: #### E RUR, PREGU ####[facility] [address] [place], [place] [address]Dr. Jaz Barajas Glucose Ql (U) 1000 mg/dl Abnormal NEGATIVE [facility] Comment on above: Performed By: #### E RUR, PREGU ####[facility] [address] [place], [place] [address]Dr. Jaz Barajas Hemoglobin Ql (U) Negative Normal NEGATIVE [facility] Comment on above: Performed By: #### Neva RUR, PREGU ####[facility] [address] [place], [place] [address]Dr. Jaz Barajas Ketones Ql (U) Negative Normal NEGATIVE [facility] Comment on above: Performed By: #### Neva RUR, PREGU ####[facility] [address] [place], [place] [address]Dr. Jaz Barajas LEUKOCYTES Negative Normal NEGATIVE [facility] Comment on above: Performed By: #### E RUR, PREGU ####[facility] Z[address] [place], [place] [address]Dr. Jaz Barajas Nitrite Ql (U) Negative Normal NEGATIVE [facility] Comment on above: Performed By: #### Neva RUR, PREGU ####[facility] [address] [place], [place] [address]Dr. Jaz Barajas pH (U) 6.5 [pH] Normal 5-9 [facility] Comment on above: Performed By: #### E RUR, PREGU ####[facility] [address] [place], [place] [address]Dr. Jaz Barajas SPEC GRAVITY 1.010 Normal 1.005-<=1.02 5 [facility] Comment on above: Performed By: #### Neva RUR, PREGU ####[facility] [address] [place] [address]Dr. Jaz Barajas UA PROTEIN Negative Normal NEGATIVE/ TRACE [facility] Comment on above: Performed By: #### E RUR, PREGU ####[facility] [address] [place] [address]Dr. Jaz Barajas UR MICRO IND NOT INDICATED Normal [facility] Comment on above: Performed By: #### E RUR, PREGU ####[facility] [address] [place] [address]Dr. Jaz Barajas Urobilinogen Qn (U) 0.2 {Oxana'U}/dL Normal 0.2 - 1.0 [facility] Comment on above: Performed By: #### E RUR, PREGU ####[facility] [address] [place] [address]Dr. Jaz aBrajas URon 04-18-2022 , QUAL Negative Normal NEGATIVE [facility] Comment on above: Performed By: #### Neva RUR, PREGU ####[facility] [address] [place] [address]Dr. Jaz Barajas 17-OH PROGESTERONE, LC/MSon 04-05-2022 17-OH Progesterone LCMS 43 ng/dL Normal [facility] Comment on above: Result Comment: Adul t Female Follicular 15 - 70 Luteal 35 - 290 Performed By: #### P ROGLCM #### [facility] [address] [place] [address] [address] Jaz Barajas ANDROSTENEDINE LC/MSon 04-05 Androstenedione LCMS 111 ng/dL Normal 41-262 [facility] Comment on above: Result Comment: This test was developed and its performance characteristics determined by [facility]. It has not been cleared or approved by the Food and Drug Administration. Performed By: #### A NDROST #### [facility] [address] [place] [address] [address] Jaz Barajas TESTOSTERONE, TOTALon 2021 Testosterone [Mass/Vol] 70 ng/dL Critically high 8-60 [facility] Comment on above: Performed By: #### T ESTTOT ####[facility] [address] [place] [address]Dr. Jaz Barajas PROF CHEM 8 (BAS METB)on Anion gap [Moles/Vol] 11.5 mmol/L Normal [facility] Comment on above: Performed By: #### B MP ####[facility] [address] [place] [address]Dr. Jaz Barajas Calcium [Mass/Vol] 9.1 mg/dL Normal 8.5-10.1 [facility] Comment on above: Performed By: #### B MP ####[facility] [address] [place] [address]Dr. Jaz Barajas Chloride [Moles/Vol] 103 mmol/L Normal 98-107 [facility] Comment on above: Performed By: #### B MP ####[facility] [address] [place], [place] [address]Dr. Jaz Barajas CO2 [Moles/Vol] 28.0 mmol/L Normal 21.0-32.0 [facility] Comment on above: Performed By: #### B MP ####[facility] [address] [place], [place] [address]Dr. Jaz Barajas Creatinine [Mass/Vol] 0.74 mg/dL Normal 0.55-1.02 [facility] Comment on above: Performed By: #### B MP ####[facility] [address] [place], [place] [address]Dr. Jaz Barajas EGFR-AF KITTITIAN >60 Normal >=60 [facility] Comment on above: Performed By: #### B MP ####[facility] [address] [place] [address]Dr. Jaz Barajas EGFR-NON AF KITTITIAN >60 Normal >=60 [facility] Comment on above: Performed By: #### B MP ####[facility] [address] [place] [address]Dr. Jaz Barajas Glucose [Mass/Vol] 197 mg/dL Critically high 74-106 T [facility] Comment on above: Performed By: #### B MP ####[facility] [address] [place], [place] [address]Jq. Jaz Barajas Potassium [Moles/Vol] 4.5 mmol/L Normal 3.5-5.1 [facility] Comment on above: Performed By: #### B MP ####[facility] [address] [place], [place] [address]Fx. Jaz Barajas Sodium [Moles/Vol] 138 mmol/L Normal 136-145 [facility] Comment on above: Performed By: #### B MP ####[facility] [address] [place], [place] [address]Dd. Jaz Barajas Urea nitrogen [Mass/Vol] 11.0 mg/dL Normal 7.0-18.0 [facility] Comment on above: Performed By: #### B MP ####[facility] [address] [place], [place] [address]Vr. Jaz Barajas Urea nitrogen/Creatinin e [Mass ratio] 14.9 mg/mg Normal [facility] Comment on above: Performed By: #### B MP ####[facility] [address] [place], [place] [address]LfPratibha Barajas XR ABD FLAT_UPon 02-06-2022 XR ABD [...] EDUARDO RIVERS Date: 2022-02-06 17:25 Normal [facility] CREATININEon 01-31-2022 Creatinine [Mass/Vol] 0.74 mg/dL Normal 0.55-1.02 [facility] Comment on above: Performed By: #### P ROGLCM #### [facility] [address] [address] [address] Jaz Barajas EGFR-AF KITTITIAN >60 Normal >=60 [facility] Comment on above: Performed By: #### P ROGLCM #### [facility] [address] [address] [address] Jaz Barajas EGFR-NON AF KITTITIAN >60 Normal >=60 [facility] Comment on above: Performed By: #### P ROGLCM #### [facility] [address] [address] [address] ABDOMEN W CONon [...] JEYSON BLANTON Date: 2022-01-31 18:16 Normal [facility] ACETONE SERUMon 01-09-2022 ACETONE Negative Normal NEGATIVE [facility] Comment on above: Performed By: #### A CETON ####[facility] [address] [place] [address]Dr. Jaz Barajas CARDIAC BISI ADMITon 022 CK [Catalytic activity/Vol] 58 U/L Normal 26-192 [facility] Comment on above: Performed By: #### P REGU #### [facility] [address] [place] [address] Dr. Jaz Barajas CK.MB [Mass/Vol] 0.64 ng/mL Normal <=3.60 [facility] Comment on above: Performed By: #### P REGU #### [facility] [address] [place] [address] Dr. Jaz Barajas HSTROP 5.3 pg/mL Normal 4.0-51.3 [facility] Comment on above: Result Comment: CUT- OFF POINTS HAVE BEEN ESTABLISHED BASED ON THE FOURTH UNIVERSAL DEFINITIONS OF MYOCARDIAL INFARCTION. THE UPPER REFERENCE LIMIT (URL) OF TROPONIN, DEFINED THE 99TH PERCENTILE OF cTnI DISTRIBUTION IN A REFERENCE POPULATION, HAS BEEN CONFIRMED THE DECISION THRESHOLD FOR [place] DIAGNOSIS. Performed By: #### P REGU #### [facility] [address] [place] [address] Dr. Jaz Barajas WAI 30 ng/mL Normal 9-82 [facility] Comment on above: Performed By: #### P REGU #### [facility] [address] [place] [address] Dr. Jaz Barajas CBC AUTO DIFFon 01-09-2022 BASO # 0.1 103/ul Normal 0.0-0.1 [facility] Comment on above: Performed By: #### P REGU #### [facility] [address] [place] [address] Dr. Jaz Barajas Basophils/100 WBC (Bld) 0.5 % Normal 0.2-2.0 [facility] Comment on above: Performed By: #### P REGU #### [facility] [address] [place] [address] Dr. Jaz Barajas EO # 0.3 103/ul Normal 0.0-0.7 [facility] Comment on above: Performed By: #### P REGU #### [facility] [address] [place] [address] Dr. Jaz Barajas Eosinophils/100 WBC (Bld) 2.5 % Normal 0.9-7.0 [facility] Comment on above: Performed By: #### P REGU #### [facility] [address] [place] [address] Dr. Jaz Barajas Erythrocyte distribution width (RBC) [Ratio] 12.8 % Normal 11.0-15.0 [facility] Comment on above: Performed By: #### P REGU #### [facility] [address] [place] [address] Dr. Jaz Barajas Hematocrit (Bld) [Volume fraction] 41.0 % Normal 36.0-48.0 [facility] Comment on above: Performed By: #### P REGU #### [facility] [address] [place] [address] Dr. Jaz Barajas Hemoglobin (Bld) [Mass/Vol] 13.6 g/dL Normal 12.0-16.0 [facility] Comment on above: Performed By: #### P REGU #### [facility] [address] [place] [address] Dr. Jaz Barajas IG # 0.03 10e3/ul Normal 0.00-0.03 [facility] Comment on above: Performed By: #### P REGU #### [facility] [address] [place] [address] Dr. Jaz Barajas IG % 0.3 % Normal 0.0-0.5 [facility] Comment on above: Performed By: #### P REGU #### [facility] [address] [place] [address] Dr. Jaz Barajas LYMPH # 2.7 103/ul Normal 1.2-3.8 [facility] Comment on above: Performed By: #### P REGU #### [facility] [address] [place] [address] Dr. Jaz Barajas Lymphocytes/100 WBC (Bld) 25.7 % Normal 20.5-60.0 [facility] Comment on above: Performed By: #### P REGU #### [facility] [address] [place] [address] Dr. Jaz Barajas MANUAL DIFF REQ NO Normal [facility] Comment on above: Performed By: #### P REGU #### [facility] [address] [address] [address] Jaz Barajas MCH (RBC) [Entitic mass] 27.7 pg Normal 26.7-34.0 [facility] Comment on above: Performed By: #### P REGU #### [facility] [address] [place] [address] Dr. Jaz Barajas MCHC (RBC) [Mass/Vol] 33.2 g/dL Normal 29.9-35.2 [facility] Comment on above: Performed By: #### P REGU #### [facility] [address] [place] [address] Dr. Jaz Barajas MCV (RBC) [Entitic vol] 83.5 fL Normal 81.0-99.0 [facility] Comment on above: Performed By: #### P REGU #### [facility] [address] [place] [address] Dr. Jaz Barajas MONO # 0.8 103/ul Normal 0.3-0.8 [facility] Comment on above: Performed By: #### P REGU #### [facility] [address] [place] [address] Dr. Jaz Barajas Monocytes/100 WBC (Bld) 7.4 % Normal 1.7-12.0 [facility] Comment on above: Performed By: #### P REGU #### [facility] [address] [place] [address] Dr. Jaz Barajas NEUT # 6.6 103/ul Critically high 1.4-6.5 [facility] Comment on above: Performed By: #### P REGU #### [facility] [address] [place] [address] Dr. Jaz Barajas Neutrophils/100 WBC (Bld) 63.6 % Normal 43.0-75.0 [facility] Comment on above: Performed By: #### P REGU #### [facility] [address] [place] [address] Dr. Jaz Barajas Platelet mean volume (Bld) [Entitic vol] 11.5 fL Normal 9.5-13.5 [facility] Comment on above: Performed By: #### P REGU #### [facility] [address] [address] [address] Jaz Barajas PLT 227 103/ul Normal 150-450 [facility] Comment on above: Performed By: #### P REGU #### [facility] [address] [address] [address] Jaz Barajas RBC 4.91 106/ul Normal 4.20-5.40 [facility] Comment on above: Performed By: #### P REGU #### [facility] [address] [address] [address] Jaz Barajas WBC 10.4 103/ul Normal 4.0-11.0 [facility] Comment on above: Performed By: #### P REGU #### [facility] [address] [address] [address] Jaz Barajas CTA CHEST WO W [...] JEYSON BLANTON Date: 2022-01-09 09:47 Normal [facility] D-DIMERon 01-09-2022 D-DIMER 0.56 mg/L FEU Critically high 0.19-0.50 [facility] Comment on above: Result Comment: test repeated critical value verified Performed By: #### D DIM, PT, PTT #### [facility] [address] [place] [address] Dr. Jaz Barajas D-DIMER COMMENTS SEE BELOW Normal [facility] Comment on above: Result Comment: Incr eases [...] By: #### D DIM, PT, PTT #### [facility] [address] [place] [address] Dr. Jaz Barajas ER URINE PROFILEon 2 Bilirubin Ql (U) Negative Normal NEGATIVE [facility] Comment on above: Performed By: #### P ROGLCM #### [facility] [address] [place] [address] Dr. Jaz Barajas Clarity (U) CLEAR Normal CLEAR [facility] Comment on above: Performed By: #### P ROGLCM #### [facility] [address] [place] [address] Dr. Jaz Barajas Color (U) YELLOW Normal YELLOW [facility] Comment on above: Performed By: #### P ROGLCM #### [facility] [address] [place] [address] Dr. Jaz Barajas ERUELFEGOD A micrscopic examina tion will be performed if indicated. Normal [facility] Comment on above: Performed By: #### P ROGLCM #### [facility] [address] [place] [address] Dr. Jaz Barajas Glucose Ql (U) 500 mg/dl Abnormal NEGATIVE [facility] Comment on above: Performed By: #### P ROGLCM #### [facility] [address] [place] [address] Dr. Jaz Barajas Hemoglobin Ql (U) Negative Normal NEGATIVE [facility] Comment on above: Performed By: #### P ROGLCM #### [facility] [address] [address] [address] Jaz Barajas Ketones Ql (U) Negative Normal NEGATIVE [facility] Comment on above: Performed By: #### P ROGLCM #### [facility] [address] [place] [address] Dr. Jaz Barajas LEUKOCYTES Negative Normal NEGATIVE [facility] Comment on above: Performed By: #### P ROGLCM #### [facility] [address] [address] [address] Jaz Barajas Nitrite Ql (U) Negative Normal NEGATIVE [facility] Comment on above: Performed By: #### P ROGLCM #### [facility] [address] [place] [address] Dr. Jaz Barajas pH (U) 6.0 [pH] Normal 5-9 [facility] Comment on above: Performed By: #### P ROGLCM #### [facility] [address] [place] [address] Dr. Jaz Barajas SPEC GRAVITY >=1.030 Abnormal 1.005-<=1.02 5 [facility] Comment on above: Performed By: #### P ROGLCM #### [facility] [address] [place] [address] Dr. Jaz Barajas UA PROTEIN Negative Normal NEGATIVE/ TRACE [facility] Comment on above: Performed By: #### P ROGLCM #### [facility] [address] [address] [address] Jaz Barajas UR MICRO IND NOT INDICATED Normal [facility] Comment on above: Performed By: #### P ROGLCM #### [facility] [address] [place] [address] Dr. Jaz Barajas Urobilinogen Qn (U) 0.2 {Oxana'U}/dL Normal 0.2 - 1.0 [facility] Comment on above: Performed By: #### P ROGLCM #### [facility] [address] [place] [address] Dr. Jaz Barajas PH VENOUS BLOODon 01-09-2022 PCO2 VENOUS 39.2 mmHg Critically low 40.0-52.0 [facility] Comment on above: Performed By: #### P HVEN #### [facility] [address] [place] [address] Dr. Jaz Barajas pH VENOUS 7.409 Normal 7.330-7.430 [facility] Comment on above: Performed By: #### P HVEN #### [facility] [address] [place] [address] Dr. Jaz Barajas URon 01-09-2022 , QUAL Negative Normal NEGATIVE [facility] Comment on above: Performed By: #### P REGU #### [facility] [address] [place] [address] Dr. Jaz Barajas PROF 14(COMP METB)on 022 Albumin [Mass/Vol] 3.2 g/dL Critically low 3.4-5.0 [facility] Comment on above: Performed By: #### P REGU #### [facility] [address] [place] [address] Dr. Jaz Barajas Albumin/Globulin [Mass ratio] 0.8 {ratio} Normal [facility] Comment on above: Performed By: #### P REGU #### [facility] [address] [place] [address] Dr. Jaz Barajas ALP [Catalytic activity/Vol] 109 U/L Normal 46-116 [facility] Comment on above: Performed By: #### P REGU #### [facility] [address] [place] [address] Dr. Jaz Barajas ALT [Catalytic activity/Vol] 95 U/L Critically high 14-59 [facility] Comment on above: Performed By: #### P REGU #### [facility] [address] [place] [address] Dr. Jaz Barajas Anion gap [Moles/Vol] 11.7 mmol/L Normal [facility] Comment on above: Performed By: #### P REGU #### [facility] [address] [place] [address] Dr. Jaz Barajas AST [Catalytic activity/Vol] 44 U/L Critically high 15-37 [facility] Comment on above: Performed By: #### P REGU #### [facility] [address] [place] [address] Dr. Jaz Barajas Bilirubin [Mass/Vol] 0.3 mg/dL Normal 0.2-1.0 [facility] Comment on above: Performed By: #### P REGU #### [facility] [address] [address] [address] Jaz Barajas Calcium [Mass/Vol] 8.8 mg/dL Normal 8.5-10.1 [facility] Comment on above: Performed By: #### P REGU #### [facility] [address] [place] [address] Dr. Jaz Barajas Chloride [Moles/Vol] 102 mmol/L Normal 98-107 [facility] Comment on above: Performed By: #### P REGU #### [facility] [address] [place] [address] Dr. Jaz Barajas CO2 [Moles/Vol] 25.3 mmol/L Normal 21.0-32.0 [facility] Comment on above: Performed By: #### P REGU #### [facility] [address] [place] [address] Dr. Jaz Barajas Creatinine [Mass/Vol] 0.86 mg/dL Normal 0.55-1.02 [facility] Comment on above: Performed By: #### P REGU #### [facility] [address] [place] [address] Dr. Jaz Barajas EGFR-AF KITTITIAN >60 Normal >=60 [facility] Comment on above: Performed By: #### P REGU #### [facility] [address] [place] [address] Dr. Jaz Barajas EGFR-NON AF KITTITIAN >60 Normal >=60 [facility] Comment on above: Performed By: #### P REGU #### [facility] [address] [place] [address] Dr. Jaz Barajas Globulin (S) [Mass/Vol] 3.9 g/dL Normal [facility] Comment on above: Performed By: #### P REGU #### [facility] [address] [place] [address] Dr. Jaz Barajas Glucose [Mass/Vol] 230 mg/dL Critically high 74-106 [facility] Comment on above: Performed By: #### P REGU #### [facility] [address] [place] [address] Dr. Jaz Barajas Potassium [Moles/Vol] 4.0 mmol/L Normal 3.5-5.1 [facility] Comment on above: Performed By: #### P REGU #### [facility] [address] [place] [address] Dr. Jaz Barajas Protein [Mass/Vol] 7.1 g/dL Normal 6.4-8.2 [facility] Comment on above: Performed By: #### P REGU #### [facility] [address] [place] [address] Dr. Jaz Barajas Sodium [Moles/Vol] 135 mmol/L Critically low 136-145 [facility] Comment on above: Performed By: #### P REGU #### [facility] [address] [place] [address] Dr. Jaz Barajas Urea nitrogen [Mass/Vol] 15.0 mg/dL Normal 7.0-18.0 [facility] Comment on above: Performed By: #### P REGU #### [facility] [address] [place] [address] Dr. Jaz Barajas Urea nitrogen/Creatinin e [Mass ratio] 17.4 mg/mg Normal [facility] Comment on above: Performed By: #### P REGU #### [facility] [address] [place] [address] Dr. Jaz Barajas PROTIMEon 01-09-2022 INR Coag (PPP) [Relative time] 0.96 {INR} Normal [facility] Comment on above: Performed By: #### D DIM, PT, PTT #### [facility] [address] [place] [address] Dr. Jaz Barajas INR GUIDELINES SEE BELOW Normal [facility] Comment on above: Result Comment: UUM RED INR: 2.0 - 3.0 CONDITIONS NOT LISTED BELOW 2.5 - 3.5 FOR PROSTHETIC HEART VALVE REPLACEMENT 2.5 - 3.5 RECURRENT THROMBOSIS Performed By: #### D DIM, PT, PTT #### [facility] [address] [place] [address] Dr. Jaz Barajas PT Coag (PPP) [Time] 10.4 s Normal 9.0-11.6 [facility] Comment on above: Performed By: #### D DIM, PT, PTT #### [facility] [address] [place] [address] Dr. Jaz Barajas PTTon 01-09-2022 aPTT Coag (Bld) [Time] 28.8 s Normal 22.3-36.2 [facility] Comment on above: Performed By: #### D DIM, PT, PTT #### [facility] [address] [place] [address] Dr. Jaz Barajas TROPONIN, HIGH SENSITIVITYon 01-09-2022 HSTROP 4.5 pg/mL Normal 4.0-51.3 [facility] Comment on above: Result Comment: CUT- OFF POINTS HAVE BEEN ESTABLISHED BASED ON THE FOURTH UNIVERSAL DEFINITIONS OF MYOCARDIAL INFARCTION. THE UPPER REFERENCE LIMIT (URL) OF TROPONIN, DEFINED THE 99TH PERCENTILE OF cTnI DISTRIBUTION IN A REFERENCE POPULATION, HAS BEEN CONFIRMED THE DECISION THRESHOLD FOR [place] DIAGNOSIS. Performed By: #### P ROGLCM #### [facility] [address] [place] [address] Dr. Jaz Barajas TSHon 01-09-2022 TSH 2.769 uIU/mL Normal 0.358-3.740 [facility] Comment on above: Performed By: #### P REGU #### [facility] [address] [place] [address] Dr. Jaz Barajas TSH RANGE SEE BELOW Normal [facility] Comment on above: Result Comment: <0.3 4 UIU/ml HYPERTHYROID 0.34-5.60 UIU/ml EUTHYROID >5.60 UIU/ml HYPOTHYROID Performed By: #### P REGU #### [facility] [address] [address] [address] Jaz Barajas XR CHEST 1 Von [...] EDUARDO RIVERS Date: 2022-01-09 08:29 Normal [facility] Vital Signs Date Time Vital Sign Value Performing Clinician Howard girard 11-27-2023 12:54-0400 Body temperature 97.88 [degF] Riky Le [facility] 11-27-2023 12:54-0400 Diastolic blood pressure 86 mm[Hg] Riky Le [facility] 11-27-2023 12:54-0400 Heart rate 78 /min Riky Le [facility] 11-27-2023 12:54-0400 Respiratory rate 20 /min Riky Le [facility] 11-27-2023 12:54-0400 SaO2% (BldA) [Mass fraction] 98 % Riky Le [facility] 11-27-2023 12:54-0400 Systolic blood pressure 133 mm[Hg] Riky Le [facility] Encounters Encounter Date Encounter Type Care Provider Facility Start: 02-02-2024 End: 02-02-2024 ambulatory Rush Garcia MD Facility:[facility] Start: 01-15-2024 End: 01-15-2024 ambulatory ARIANE WELLS Not Available Start: 12-25-2023 End: 12-25-2023 ambulatory ARIANE AICHHOLZ Not Available Start: 11-27-2023 End: 11-27-2023 Emergency department patient visit Riky Le [place] [place]: 11-27-2023 End: 11-27-2023 Emergency department patient visit Riky Le [facility] Start: 12-14-2022 End: 12-15-2022 ambulatory CEO ZIFF DAVIS ARIANE AICHHOLZ Facility:[facility] Start: 12-11-2022 End: 12-12-2022 ambulatory CEO ZIFF DAVIS ARIANE AICHHOLZ Facility:[facility] Start: 11-15-2022 End: 11-15-[address] SKY DAVIS . Facility:[facility] Start: 11-10-2022 End: 11-10-[address] QUANG LANDA . Facility:[facility] Start: 08-18-2022 End: 08-18-2022 ambulatory GABINO CARROLL . Facility:[facility] Start: 07-09-2022 End: 07-09-[address] SKY DAVIS . Facility:[facility] Start: 05-14-2022 End: 05-14-2022 ambulatory CEO ZIFF DAVIS ARIANE AICHHOLZ Facility:[facility] Start: 05-13-2022 Encounter for preprocedural laboratory examination DR ROSA APONTE [facility] Start: 05-08-2022 End: 05-09-[address] ROSA APONTE Facility:[facility] Start: 05-08-2022 End: 05-09-2022 Encounter for preprocedural laboratory examination DR ROSA APONTE Facility:[facility] Start: 04-18-2022 End: 04-18-2022 ambulatory CEO ZIFF DAVIS ARIANE AICHHOLZ Facility:[facility] Start: 04-01-2022 End: 04-02-2022 ambulatory CEO ZIFF DAVIS ARIANE AICHHOLZ Facility:[facility] Start: 02-06-2022 End: 02-07-2022 ambulatory CEO ZIFF DAVIS ARIANE AICHHOLZ Facility:[facility] Start: 01-31-2022 End: 02-01-2022 ambulatory AMINATA BOURGEOIS Facility:[facility] Start: 01-24-2022 ambulatory CEO ZIFF DAVIS ARIANE AICHHOLZ Facil ity:[facility] Start: 01-09-2022 End: 01-09-2022 ambulatory GABINO CARROLL . Facility: Procedures Date Procedure Procedure Detail Performing Clinician [...] Le Payers Date Payer Category Payer Medicaid [id number] 2023 Unknown 2022 Medicaid [id number] 1990 Unknown [id number] 2.16.84 [id number] 1988 Unknown [id number] 2.16.84 0.1.164467.3.579.2.593 1988 Unknown [id number] 2.16.84 0.1.245319.3.579.2.593 1988 Unknown [id number] 2.16.84 0.1.132136.3.579.2.593 1988 Unknown [id number] 2.16.84 0.1.042489.3.579.2.593 1988 Unknown [id number] 2.16.84 0.1.091322.3.579.2.593 1988 Unknown [id number] 2.16.84 0.1.631259.3.579.2.593 1988 Unknown [id number] 2.16.84 0.1.010729.3.579.2.593 1988 Unknown [id number] 2.16.84 0.1.712947.3.579.2.593 1988 Unknown [id number] 2.16.84 0.1.857181.3.579.2.593 1988 Unknown [id number] 2.16.84 0.1.258769.3.579.2.593 1988 Unknown [id number] 2.16.84 0.1.861997.3.579.2.593 1988 Unknown [id number] 2.16.84 0.1.046465.3.579.2.593 1988 Unknown [id number] 2.16.8 40.1.730280.3.579.2.727 1988 Unknown [id number] 2.16.84 0.1.519267.3.579.2.1259 1988 Unknown [id number] 2.16.84 0.1.777008.3.579.2.1259 1988 Unknown [id number] 2.16. 840.1.269187.3.579.2.196 1959 Unknown [id number] 1959 Unknown [id number] Social History Date Type Detail Facility Start: 02-20-2022 Tobacco smoking status Heavy t obacco smoker (finding) [facility] Tobacco smoking status Never [facility] Sex Assigned At Female [facility] Functional Status Date Assessment Result Facility 11-27-2023 Functional Status N/A [facility] Discharge instructions 11-27-2023 Note Date [...] to strengthen the arm. General instructions Take oojg-[id number]-gzbhmys and prescription medicines only as told by [...] provider. Document Revised: 05/03/2022 Document Reviewed: 05/03/2022 [employer] Patient Education 2022 [employer] Follow Up Care 11/27/2023 12:54:30 With:Georgi Kentrell Address: [address] [place], [place] [id number] Business (1) When:11/30/2023 15:21:31 [facility] Evaluation + Plan note 11-27-2023 Note [...] EDT, Weight Dosing XR Shoulder Complete Right [facility] Clinical Note 12-16-2022 Note Date & [...] by: HAYDE VAN Date: 2022-12-16 07:21 [facility] Clinical Note 12-16-2022 Note Date & [...] by: HAYDE VAN Date: 2022-12-16 07:17 [facility] Clinical Note 05-14-2022 Note Date & Type Note Facility 05-14-2022 Note OPERATIVE NOTE OPERATION DATE: 05/14/2022 PRIMARY CARE PROVIDER: Ariane Wells CNP SURGEON: Rsoa Aponte M.D. PREOPERATIVE DIAGNOSIS: Left middle ear [...] the recovery room in good condition. [facility] course Narrative Note Date & Type Note Facility Hospital course Narrative No data available for this section [facility] Progress note Note Date & Type Note Facility Progress note No data available for this section [facility] Summary Purpose Family History No Family [...] DATE CREATED AUTHOR AUTHOR'S ORGANIZ ATION 11/29/2023 [facility] DATE CREATED AUTHOR AUTHOR'S ORGANIZ ATION 01/18/[address] [facility] EPIC DATE CREATED AUTHOR AUTHOR'S ORGANIZ ATION 02/13/2024 [facility] Patient Care team informatio n (unrecognized section and content) Personnel Name: ARIANE WELLS CNP Address: Address: [address] [place] [phone] FOR RECORDS PERTAINING TO PATIENTS WHO ARE [...] BE BASED ON THE PRIMARY CLINICAL RECORDS. [facility]. provides no warranty or guarantee of the accuracy or completeness of information in this document.
== END 2024-03-03 15:03 | disposition home or self-care (01) ==
LOC: PM 15:03
PROVIDERS: PCP Nurse Practitioner; Visit Provider Nurse Practitioner
DX: M48.02 Spinal stenosis, cervical region (principal); M54.12 Radiculopathy, cervical region; M79.18 Myalgia, other site
CPT/HCPCS: G0463

== ENCOUNTER 2024-05-30 09:01 | Emergency (ER) | payer MEDICAID, SELFPAY ==
[2024-05-30 09:06] VITALS: BP 150/95; PULSE 86; TEMP 37.1; O2SAT 98; BMI 43.2
--- OUTSIDE RECORDS SUMMARY | 2024-05-30 09:08 | XMS_ITS | CCD ---
Author Organization [facility] Care Team Providers Care Cut Off Operator Scorer Name Role Phone AICHHOLZ, FIBER OPTIC ASSEMBLY WORKER ARIANE Attending Unavailable AICHHOLZ, FIBER OPTIC ASSEMBLY WORKER ARIANE Admitting Unavailable AICHHOLZ, FIBER OPTIC ASSEMBLY WORKER ARIANE Primary Care Unavailable JOSE EDUARDO RIVERS V Consulting Unavailable AICHHOLZ, FIBER OPTIC ASSEMBLY WORKER ARIANE Consulting Unavailable TIMMIS, DR MEJIA Consulting Unavailable AICHHOLZ, FIBER OPTIC ASSEMBLY WORKER ARIANE Primary Care Unavailable TIMMIS, DR MEJIA Attending Unavailable TIMMIS, DR MEJIA Admitting Unavailable MAGDI BRIGGS Consulting Unavailable PAY ., DR SWANSON Admitting Unavailable PAY ., DR SWANSON Consulting Unavailable AICHHOLZ, FIBER OPTIC ASSEMBLY WORKER ARIANE Primary Care Unavailable PAY ., DR SWANSON Attending Unavailable AICHHOLZ, FIBER OPTIC ASSEMBLY WORKER ARIANE Primary Care Unavailable KAITLIN, DR KLAUDIA Kay Attending Unavailabl e KAITLIN, DR KLAUDIA Kay Admitting Unavailabl e KAITLIN, DR KLAUDIA Kay Consulting Unavailabl e JEYSON BLANTON Consulting Unavailable AICHHOLZ, FIBER OPTIC ASSEMBLY WORKER ARIANE Primary Care Unavailable GABINO MUÑOZ Attending Unavailable GABINO MUÑOZ Admitting Unavailable AICHHOLZ, FIBER OPTIC ASSEMBLY WORKER ARIANE Primary Care Unavailable JOSE EDUARDO RIVERS V Consulting Unavailable JEYSON BLANTON Consulting Unavailable GABINO MUÑOZ Consulting Unavailable PAY ., DR SWANSON Admitting Unavailable PAY ., DR SWANSON Consulting Unavailable AICHHOLZ, FIBER OPTIC ASSEMBLY WORKER ARIANE Primary Care Unavailable PAY ., DR SWANSON Attending Unavailable GERALDINE LAZAR Consulting Unavailable CORDELL ., DR DEL RIO Attending Unavailable HAY ., DR DEL RIO Admitting Unavailable AICHHOLZ, FIBER OPTIC ASSEMBLY WORKER ARIANE Primary Care Unavailable HAY ., DR DEL RIO Consulting Unavailable GABINO MUÑOZ Attending Unavailable GLEN .GABINO Admitting Unavailable AICHHOLZ, FIBER OPTIC ASSEMBLY WORKER ARIANE Primary Care Unavailable DONTRELL DIAZ Consulting Unavailable GABINO MUÑOZ Consulting Unavailable JOSE EDUARDO RHODES Consulting Unavailable AICHHOLZ, FIBER OPTIC ASSEMBLY WORKER ARIANE Referring Unavailable AICHHOLZ, FIBER OPTIC ASSEMBLY WORKER ARIANE Primary Care Unavailable ROYA MIRZAD Attending Unavailable YUKI, AHMAD Admitting Unavailable YUKI, AHMAD Consulting Unavailable AICHHOLZ, FIBER OPTIC ASSEMBLY WORKER ARIANE Consulting Unavailable AICHHOLZ, FIBER OPTIC ASSEMBLY WORKER ARIANE Attending Unavailable AICHHOLZ, FIBER OPTIC ASSEMBLY WORKER ARIANE Admitting Unavailable AICHHOLZ, FIBER OPTIC ASSEMBLY WORKER ARIANE Primary Care Unavailable HAYDE VAN Consulting Unavailable AICHHOLZ, FIBER OPTIC ASSEMBLY WORKER ARIANE Consulting Unavailable AICHHOLZ, FIBER OPTIC ASSEMBLY WORKER ARIANE Attending Unavailable AICHHOLZ, FIBER OPTIC ASSEMBLY WORKER ARIANE Admitting Unavailable AICHHOLZ, FIBER OPTIC ASSEMBLY WORKER ARIANE Primary Care Unavailable AMINATA BOURGEOIS Attending Unavailable AMINATA BOURGEOIS Admitting Unavailable JEYSON BLANTON Consulting Unavailable AICHHOLZ, FIBER OPTIC ASSEMBLY WORKER ARIANE Primary Care Unavailable AMINATA BOURGEOIS Consulting Unavailable AICHHOLZ, FIBER OPTIC ASSEMBLY WORKER ARIANE Primary Care Unavailable TIMMIJagjit, DR MEJIA Consulting Unavailable TIMMIS, DR MEJIA Attending Unavailable TIMMIJagjit, DR MEJIA Admitting Unavailable ELIDA COWAN Consulting Unava ilable AICHHOLZ, ARIANE J Primary Care Physician Riky Le Attending Unavailable Jose LEUNG, Rush Reid Attending Unavailable AICHHOLZ, ARIANE Attending Unavailable AICHHOLZ, ARIANE Attending Unavailable AICHHOLZ, ARIANE Attending Unavailable JOANN MARSHALL Attending Unavailable AICHHOLZ, ARIANE Referring Unavailable JOANN MARSHALL Attending Unavailable Allergies Allergy Classification Reported Allergen(s) Allergy Type Date of Onset Reaction(s) Facility (2 sources) predniSONE; Translations: [predniSONE] Drug Allergy 0 [facility] Repository (1 source) predniSONE; Translations: [prednisone] Drug Allergy 0 Slurred speech (finding), Tremor (finding) [facility] [place] Medications Current Medications Medication Drug Class(es) Dates [...] pain, # 20 tab(s), Refills(s) 0, Pharmacy: [email or web address] 1155, 160, cm, 11/27/23 12:59:00 EDT, [...] 11-30-2019 Episodic Other aftercare (1 source) Other fdc (current) drug therapy; Translations: [OTH JAIL 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 THERAPY] Onset: 11-19-2022 Episodic Other aftercare (1 source) snf (current) use of oral hypoglycemic drugs; Translations: [JAIL USE ORAL 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 DX] Onset: 11-19-2022 Episodic Other aftercare (1 source) terminal block assembler (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; Translations: [MARITIME GUARD CURRENT USE OF INSULIN] Onset: 11-11-2022 Episodic [...] Interpretation Reference Range Facility [facility] 11-28-2023 Forms [id number]#[id number] Normal [facility] Consent for Treatmenton 10-31 Consent for Treatment [id number]#1.00TIFF Normal [facility] Discharge Instructionson Discharge Instructions [id number]#[id number] Normal [facility] ED Clinical Summaryon 2023 ED Clinical Summary [place] [id number] ED Clinical Summary Person Information Name: MARILIA OSBORNE [facility] Age: 33 Years : 1990 Sex: Female Language: Sami PCP: ARIANE WELLS CNP Marital Status: Visit [...] 11/27/2023 15:37:23 11/27/2023 15:37:23 11/27/2023 15:37:23 ADDRESS: [address] [place] [phone] PHYS DOC NOTES: MEDICAL INFORMATION: Prescriptions Given: [facility], [address] [place], [place] [id number], [phone] methocarbamol (Robaxin-750 oral tablet) 2 Tablets By [...] Pain Follow up: With: Address: When: [place] [address] Business (1) In 3 days 11/30/2023 DIAGNOSIS: Pain in shoulder Normal [facility] ED Note-Physicianon 11-27-19 ED Note-Physician Basic Information [...] TID Follow-up With When Contact Information Georgi Kentrell In 3 days 11/30/2023 EDT [address] [phone] Business (1) Additional Instructions: Patient Education Shoulder [...] made to ensure accuracy, however, inadvertently computerized insert molding operator mistakes may be present. Appropriate healthcare PPE [...] (Concentrated) Roma (more content not included)... Normal [facility] Comment on above: Result Comment: Elec tronically [...] strengthen the arm. General instructions ? Take zsui-mad-mmieeqa and prescription medicines only as told by [...] provider. Document Revised: 05/03/2022 Document Reviewed: 05/03/2022 [employer] Patient Education ? 2022 Cover [employer] Normal [facility] ED Patient Summaryon 024 ED Patient Summary (Inserted Image. Isadora ble to display) [place] [id number] Patient Discharge Instructions Person Information Name: MARILIA OSBORNE Age: 33 Years Arrival Date: 11/27/2023 12:52:48 Discharge Diagnosis: Pain in shoulder Primary Care Physician: ARIANE WELLS CNP Provider Information Primary Provider: Riky Le DO Advanced Bait Maker:Steven Cardenas PA-C The exam and treatment you received in the Emergency Department were for an urgent problem and are not intended as complete care. It is important that you follow up with a doctor, nurse practitioner, or physician?s cleaner assistant for ongoing care. If your symptoms become worse or you do not improve as expected and you are unable to reach your usual health care provider, you should return to the Emergency Department. We are available 24 hours a day. MARILIA OSBORNE has been given the following list of patient education materials, prescriptions and follow-up instructions: Follow-up Instructions: With: Address: When: [place] [address] [employer] (1) In 3 days 11/30/2023 In the event that this physician does not participate in your insurance network, please consult with your insurance company to find a nearby participating provider. Patient Education Materials: Shoulder Pain A MESSAGE TO ALL PATIENTS REGARDING OPIOIDS PRESCRIPTION OPIOIDS: WHAT YOU NEED TO KNOW Prescription opioids can be used to help relieve tbwdpxvf-hy-gozjml pain and are often prescribed following a [...] be struggling with addiction, tell your health field care manager and ask for guidance or call [facility]?S National Helpline at 9-695-714-CHKR. v Source: Department of a (more content not included)... [facility] 11-27-2023 Forms [id number]#[id number] [facility] XR Shoulder Complete Righton [...] mGy = na DAP = na Normal [facility] CBC AUTO DIFFon 12-11-2022 BASO # 0.1 103/ul Normal 0.0-0.1 [facility] Comment on above: Performed By: #### P REGU #### [facility] [address] [address] [address] Jaz Barajas Basophils/100 WBC (Bld) 0.8 % Normal 0.2-2.0 [facility] Comment on above: Performed By: #### P REGU #### [facility] [address] [address] [address] Jaz Barajas EO # 0.2 103/ul Normal 0.0-0.7 [facility] Comment on above: Performed By: #### P REGU #### [facility] [address] [address] [address] Jaz Barajas Eosinophils/100 WBC (Bld) 2.1 % Normal 0.9-7.0 [facility] Comment on above: Performed By: #### P REGU #### [facility] [address] [address] [address] aJz Barajas Erythrocyte distribution width (RBC) [Ratio] 13.0 % Normal 11.0-15.0 [facility] Comment on above: Performed By: #### P REGU #### [facility] [address] [address] [address] Jaz Barajas Hematocrit (Bld) [Volume fraction] 41.2 % Normal 36.0-48.0 [facility] Comment on above: Performed By: #### P REGU #### [facility] [address] [address] [address] Jaz Barajas Hemoglobin (Bld) [Mass/Vol] 13.7 g/dL Normal 12.0-16.0 [facility] Comment on above: Performed By: #### P REGU #### [facility] [address] [address] [address] Jaz Barajas IG # 0.02 10e3/ul Normal 0.00-0.03 [facility] Comment on above: Performed By: #### P REGU #### [facility] [address] [place] [address] Dr. Jaz Barajas IG % 0.2 % Normal 0.0-0.5 [facility] Comment on above: Performed By: #### P REGU #### [facility] [address] [place] [address] Dr. Jaz Barajas LYMPH # 3.3 103/ul Normal 1.2-3.8 [facility] Comment on above: Performed By: #### P REGU #### [facility] [address] [place] [address] Dr. Jaz Barajas Lymphocytes/100 WBC (Bld) 34.8 % Normal 20.5-60.0 [facility] Comment on above: Performed By: #### P REGU #### [facility] [address] [place] [address] Dr. Jaz Barajas MANUAL DIFF REQ NO Normal [facility] Comment on above: Performed By: #### P REGU #### [facility] [address] [place] [address] Dr. Jaz Barajas MCH (RBC) [Entitic mass] 26.6 pg Critically low 26.7-34.0 [facility] Comment on above: Performed By: #### P REGU #### [facility] [address] [place] [address] Dr. Jaz Barajas MCHC (RBC) [Mass/Vol] 33.3 g/dL Normal 29.9-35.2 [facility] Comment on above: Performed By: #### P REGU #### [facility] [address] [address] [address] Jaz Barajas MCV (RBC) [Entitic vol] 79.8 fL Critically low 81.0-99.0 [facility] Comment on above: Performed By: #### P REGU #### [facility] [address] [place] [address] Dr. Jaz Barajas MONO # 0.7 103/ul Normal 0.3-0.8 [facility] Comment on above: Performed By: #### P REGU #### [facility] [address] [place] [address] Dr. Jaz Barajas Monocytes/100 WBC (Bld) 7.3 % Normal 1.7-12.0 [facility] Comment on above: Performed By: #### P REGU #### [facility] [address] [place] [address] Dr. Jaz Barajas NEUT # 5.3 103/ul Normal 1.4-6.5 [facility] Comment on above: Performed By: #### P REGU #### [facility] [address] [place] [address] Dr. Jaz Barajas Neutrophils/100 WBC (Bld) 54.8 % Normal 43.0-75.0 [facility] Comment on above: Performed By: #### P REGU #### [facility] [address] [place] [address] Dr. Jaz Barajas Platelet mean volume (Bld) [Entitic vol] 10.7 fL Normal 9.5-13.5 [facility] Comment on above: Performed By: #### P REGU #### [facility] [address] [place] [address] Dr. Jaz Barajas PLT 284 103/ul Normal 150-450 [facility] Comment on above: Performed By: #### P REGU #### [facility] [address] [place] [address] Dr. Jaz Barajas RBC 5.16 106/ul Normal 4.20-5.40 [facility] Comment on above: Performed By: #### P REGU #### [facility] [address] [place], [place] [address] Dr. Jaz Barajas WBC 9.6 103/ul Normal 4.0-11.0 [facility] Comment on above: Performed By: #### P REGU #### [facility] [address] [address] [address] Jaz Barajas FREE T4on 12-11-2022 Free T4 [Mass/Vol] 1.10 ng/dL Normal 0.76-1.46 [facility] Comment on above: Performed By: #### P ROGLCM #### [facility] [address] [address] [address] Jaz Barajas LIPID PROFILEon 12-11-2022 CHOL-HDL RATIO NORM SEE BELOW Normal [facility] Comment on above: Result Comment: 3.3 - 4.4 LOW RISK 4.4 - 7.1 AVERAGE RISK 7.1 - 11.0 MODERATE RISK >11.0 HIGH RISK Performed By: #### L IPID, TSH, CMP ####[facility] [address] [place] [address]DrPratibha Barajas Cholesterol [Mass/Vol] 168 mg/dL Normal <=200 [facility] Comment on above: Performed By: #### L IPID, TSH, CMP ####[facility] [address] [place] [address]DrPratibha Barajas Cholesterol in HDL [Mass/Vol] 32 mg/dL Critically low 40-60 [facility] Comment on above: Performed By: #### L IPID, TSH, CMP ####[facility] [address] [place] [address]DrPratibha Barajas Cholesterol in LDL [Mass/Vol] 121.8 mg/dL Normal [facility] Comment on above: Performed By: #### L IPID, TSH, CMP ####[facility] [address] [place] [address]DrPratibha Barajas Cholesterol.total/ Cholesterol in HDL [Mass ratio] 5.3 {ratio} Normal [facility] Comment on above: Performed By: #### L IPID, TSH, CMP ####[facility] [address] [place] [id number]. Jaz Barajas HDL NORMAL > or = 60 mg/dl - LO W CARDIOVASCULAR RISK <40 mg/dl - HIGH CARDIOVASCULAR RISK Normal [facility] Comment on above: Performed By: #### L IPID, TSH, CMP ####[facility] [address] [place] [address]Dr. Jaz Barajas LDL CALC NORMAL SEE BELOW Normal [facility] Comment on above: Result Comment: <100 mg/dl OPTIMAL 100 - 129 mg/dl NEAR OR ABOVE OPTIMAL 130 - 159 mg/dl BORDERLINE HIGH 160 - 189 mg/dl HIGH >190 mg/dl VERY HIGH Performed By: #### L IPID, TSH, CMP ####[facility] [address] [place] [address]DrPratibha Barajas Triglyceride [Mass/Vol] 71 mg/dL Normal <=150 [facility] Comment on above: Performed By: #### L IPID, TSH, CMP ####[facility] [address] [place] [address]Dr. Jaz Barajas VLDL CALC 14.2 mg/dL Normal [facility] Comment on above: Performed By: #### L IPID, TSH, CMP ####[facility] [address] [place] [address]Dr. Jaz Barajas MICROALBUMIN, RAND URon 11-30 mALB <1.3 Normal <=30.0 [facility] Comment on above: Performed By: #### P REGU #### [facility] [address] [address] [address] Jaz Barajas PROF 14(COMP METB)on 023 Albumin [Mass/Vol] 3.7 g/dL Normal 3.4-5.0 [facility] Comment on above: Performed By: #### L IPID, TSH, CMP ####[facility] [address] [place] [address]DrPratibha Barajas Albumin/Globulin [Mass ratio] 0.8 {ratio} Normal [facility] Comment on above: Performed By: #### L IPID, TSH, CMP ####[facility] [address] [place] [address]Dr. Jaz Barajas ALP [Catalytic activity/Vol] 90 U/L Normal 46-116 [facility] Comment on above: Performed By: #### L IPID, TSH, CMP ####[facility] [address] [place], [place] [address]Dr. Jaz Barajas ALT [Catalytic activity/Vol] 106 U/L Critically high 14-59 [facility] Comment on above: Performed By: #### L IPID, TSH, CMP ####[facility] [address] [place], [place] [address]Dr. Jaz Barajas Anion gap [Moles/Vol] 12.5 mmol/L Normal [facility] Comment on above: Performed By: #### L IPID, TSH, CMP ####[facility] [address] [place], [place] [address]Dr. Jaz Barajas AST [Catalytic activity/Vol] 43 U/L Critically high 15-37 [facility] Comment on above: Performed By: #### L IPID, TSH, CMP ####[facility] [address] [place], [place] [address]Dr. Jaz Barajas Bilirubin [Mass/Vol] 0.4 mg/dL Normal 0.2-1.0 [facility] Comment on above: Performed By: #### L IPID, TSH, CMP ####[facility] [address] [place], [place] [address]Dr. Jaz Barajas Calcium [Mass/Vol] 9.0 mg/dL Normal 8.5-10.1 [facility] Comment on above: Performed By: #### L IPID, TSH, CMP ####[facility] [address] [place], [place] [address]Dr. Jaz Barajas Chloride [Moles/Vol] 104 mmol/L Normal 98-107 [facility] Comment on above: Performed By: #### L IPID, TSH, CMP ####[facility] [address] [place], [place] [address]Dr. Jaz Barajas CO2 [Moles/Vol] 25.8 mmol/L Normal 21.0-32.0 [facility] Comment on above: Performed By: #### L IPID, TSH, CMP ####[facility] [address] [place] [address]Dr. Jaz Barajas Creatinine [Mass/Vol] 0.76 mg/dL Normal 0.55-1.02 [facility] Comment on above: Performed By: #### L IPID, TSH, CMP ####[facility] [address] [place] [address]Dr. Jaz Barajas EGFR-AF DUTCH >60 Normal >=60 [facility] Comment on above: Performed By: #### L IPID, TSH, CMP ####[facility] [address] [place], [place] [address]Dr. Jaz Barajas EGFR-NON AF DUTCH >60 Normal >=60 [facility] Comment on above: Performed By: #### L IPID, TSH, CMP ####[facility] [address] [place], [place] [address]Dr. Jaz Karl Globulin (S) [Mass/Vol] 4.4 g/dL Normal [facility] Comment on above: Performed By: #### L IPID, TSH, CMP ####[facility] [address] [place], [place] [address]Dr. Jaz Barajas Glucose [Mass/Vol] 228 mg/dL Critically high 74-106 T [facility] Comment on above: Performed By: #### L IPID, TSH, CMP ####[facility] [address] [place], [place] [address]Dr. Jaz Barajas Potassium [Moles/Vol] 4.3 mmol/L Normal 3.5-5.1 [facility] Comment on above: Performed By: #### L IPID, TSH, CMP ####[facility] [address] [place], [place] [address]Dr. Jaz Barajas Protein [Mass/Vol] 8.1 g/dL Normal 6.4-8.2 [facility] Comment on above: Performed By: #### L IPID, TSH, CMP ####[facility] [address] [place], [place] [address]Dr. Jaz Barajas Sodium [Moles/Vol] 138 mmol/L Normal 136-145 [facility] Comment on above: Performed By: #### L IPID, TSH, CMP ####[facility] [address] [place] [address]Dr. Jaz Barajas Urea nitrogen [Mass/Vol] 21.0 mg/dL Critically high 7.0-18.0 [facility] Comment on above: Performed By: #### L IPID, TSH, CMP ####[facility] [address] [place] [address]Dr. Jaz Barajas Urea nitrogen/Creatinin e [Mass ratio] 27.6 mg/mg Normal [facility] Comment on above: Performed By: #### L IPID TSH, CMP ####[facility] [address] [place] [address]Dr. Jaz Barajas TSHon 12-11-2022 TSH 3.602 uIU/mL Normal 0.358-3.740 [facility] Comment on above: Performed By: #### L IPEFREN TSH, CMP ####[facility] [address] [place], [place] [address]Dr. Jaz Barajas UA RANDOM W/MICROSCOPICon BACTERIA NONE SEEN Normal NONE SEEN [facility] Comment on above: Performed By: #### U AMIC ####[facility] [address] [place], [place] [address]Dr. Jaz Barajas Bilirubin Ql (U) Negative Normal NEGATIVE [facility] Comment on above: Performed By: #### U AMIC ####[facility] [address] [place], [place] [address]Dr. Jaz Barajas CAST NONE SEEN Normal NONE SEEN [facility] Comment on above: Performed By: #### U AMIC ####[facility] [address] [place], [place] [address]Dr. Jaz Barajas Clarity (U) CLEAR Normal CLEAR [facility] Comment on above: Performed By: #### U AMIC ####[facility] [address] [place], [place] [address]Dr. Jaz Barajas Color (U) LT. YELLOW Normal YELLOW [facility] Comment on above: Performed By: #### U AMIC ####[facility] [address] [place] [address]Dr. Jaz Barajas Crystals LM Nom (Urine sed) NONE SEEN Normal NONE SEEN [facility] Comment on above: Performed By: #### U AMIC ####[facility] [address] [place] [address]Dr. Jaz Barajas Epithelial cells LM Ql (Urine sed) RARE Normal NONE SEEN /RARE [facility] Comment on above: Performed By: #### U AMIC ####[facility] [address] [place] [address]Dr. Jaz Barajas Glucose Ql (U) >1000 Abnormal NEGATIVE [facility] Comment on above: Performed By: #### U AMIC ####[facility] [address] [place], [place] [address]Dr. Jaz Barajas Hemoglobin Ql (U) Negative Normal NEGATIVE [facility] Comment on above: Performed By: #### U AMIC ####[facility] [address] [place], [place] [address]Dr. Jaz Barajas Ketones Ql (U) Negative Normal NEGATIVE [facility] Comment on above: Performed By: #### U AMIC ####[facility] [address] [place] [address]Dr. Jaz Barajas LEUKOCYTES Negative Normal NEGATIVE [facility] Comment on above: Performed By: #### U AMIC ####[facility] [address] [place] [address]Dr. Jaz Barajas MUCOUS NONE SEEN Normal NONE SEEN [facility] Comment on above: Performed By: #### U AMIC ####[facility] [address] [place], [place] [address]Dr. Jaz Barajas Nitrite Ql (U) Negative Normal NEGATIVE [facility] Comment on above: Performed By: #### U AMIC ####[facility] [address] [place], [place] [address]Dr. Jaz Barajas pH (U) 6.0 [pH] Normal 5-9 [facility] Comment on above: Performed By: #### U AMIC ####[facility] [address] [place] [id number]. Jaz Barajas RBC NONE SEEN Abnormal 0-2 [facility] Comment on above: Performed By: #### U AMIC ####[facility] [address] [place] [id number]. Jaz Barajas SPEC GRAVITY 1.020 Normal 1.005-<=1.02 5 [facility] Comment on above: Performed By: #### U AMIC ####[facility] [address] [place] [id number]. Jaz Barajas UA PROTEIN Negative Normal NEGATIVE/ TRACE [facility] Comment on above: Performed By: #### U AMIC ####[facility] [address] [place] [address]Dr. Jaz Barajas Urobilinogen Qn (U) 0.2 {Oxana'U}/dL Normal 0.2 - 1.0 [facility] Comment on above: Performed By: #### U AMIC ####[facility] [address] [place] [id number]. Jaz Barajas WBC 0-2 Abnormal NONE SEEN [facility] Comment on above: Performed By: #### U AMIC ####[facility] [address] [place] [id number] Barajas VITAMIN D 25 OHon 12-11-2022 VIT D 25-OH 30.9 ng/mL Normal [facility] Comment on above: Performed By: #### P VALENTINELCM #### [facility] [address] [address] [address] Jaz Barajas VIT D RANGES SEE BELOW Normal [facility] Comment on above: Result Comment: <20 ng/mL Vit D deficient 20 - <30 ng/mL Vit D insufficient 30 - 100 ng/mL Vit D sufficient >100 ng/mL Potential Toxicity Performed By: #### P DUSTINM #### [facility] [address] [address] [address] Jaz Barajas CBC AUTO DIFFon 11-15-2022 BASO # 0.1 103/ul Normal 0.0-0.1 [facility] Comment on above: Performed By: #### P ROGLCM #### [facility] [address] [place] [address] Dr. Jaz Barajas Basophils/100 WBC (Bld) 0.6 % Normal 0.2-2.0 [facility] Comment on above: Performed By: #### P ROGLCM #### [facility] [address] [place] [address] Dr. Jaz Barajas EO # 0.2 103/ul Normal 0.0-0.7 [facility] Comment on above: Performed By: #### P ROGLCM #### [facility] [address] [place] [address] Dr. Jaz Barajas Eosinophils/100 WBC (Bld) 2.0 % Normal 0.9-7.0 [facility] Comment on above: Performed By: #### P ROGLCM #### [facility] [address] [place] [address] Dr. Jaz Barajas Erythrocyte distribution width (RBC) [Ratio] 13.3 % Normal 11.0-15.0 [facility] Comment on above: Performed By: #### P ROGLCM #### [facility] [address] [place] [address] Dr. Jaz Barajas Hematocrit (Bld) [Volume fraction] 40.4 % Normal 36.0-48.0 [facility] Comment on above: Performed By: #### P ROGLCM #### [facility] [address] [place] [address] Dr. Jaz Barajas Hemoglobin (Bld) [Mass/Vol] 13.5 g/dL Normal 12.0-16.0 [facility] Comment on above: Performed By: #### P ROGLCM #### [facility] [address] [place] [address] Dr. Jaz Barajas IG # 0.03 10e3/ul Normal 0.00-0.03 [facility] Comment on above: Performed By: #### P ROGLCM #### [facility] [address] [place] [address] Dr. Jaz Barajas IG % 0.3 % Normal 0.0-0.5 [facility] Comment on above: Performed By: #### P ROGLCM #### [facility] [address] [address] [address] Jaz Barajas LYMPH # 3.3 103/ul Normal 1.2-3.8 [facility] Comment on above: Performed By: #### P ROGLCM #### [facility] [address] [address] [address] Jaz Barajas Lymphocytes/100 WBC (Bld) 30.7 % Normal 20.5-60.0 [facility] Comment on above: Performed By: #### P ROGLCM #### [facility] [address] [place] [address] Dr. Jaz Barajas MANUAL DIFF REQ NO Normal [facility] Comment on above: Performed By: #### P VALENTINELCM #### [facility] [address] [place] [address] Dr. Jaz Barajas MCH (RBC) [Entitic mass] 26.6 pg Critically low 26.7-34.0 [facility] Comment on above: Performed By: #### P ROGLCM #### [facility] [address] [place] [address] Dr. Jaz Barajas MCHC (RBC) [Mass/Vol] 33.4 g/dL Normal 29.9-35.2 [facility] Comment on above: Performed By: #### P ROGLCM #### [facility] [address] [place] [address] Dr. Jaz Barajas MCV (RBC) [Entitic vol] 79.7 fL Critically low 81.0-99.0 [facility] Comment on above: Performed By: #### P ROGLCM #### [facility] [address] [place] [address] Dr. Jaz Barajas MONO # 0.8 103/ul Normal 0.3-0.8 [facility] Comment on above: Performed By: #### P ROGLCM #### [facility] [address] [place] [address] Dr. Jaz Barajas Monocytes/100 WBC (Bld) 7.4 % Normal 1.7-12.0 [facility] Comment on above: Performed By: #### P ROGLCM #### [facility] [address] [place] [address] Dr. Jaz Barajas NEUT # 6.3 103/ul Normal 1.4-6.5 [facility] Comment on above: Performed By: #### P ROGLCM #### [facility] [address] [place] [address] Dr. Jaz Barajas Neutrophils/100 WBC (Bld) 59.0 % Normal 43.0-75.0 [facility] Comment on above: Performed By: #### P VALENTINELCM #### [facility] [address] [place] [address] Dr. Jaz Barajas Platelet mean volume (Bld) [Entitic vol] 10.7 fL Normal 9.5-13.5 [facility] Comment on above: Performed By: #### P ROGLCM #### [facility] [address] [place] [address] Dr. Jaz Barajas PLT 326 103/ul Normal 150-450 [facility] Comment on above: Performed By: #### P ROGLCM #### [facility] [address] [place] [address] Dr. Jaz Barajas RBC 5.07 106/ul Normal 4.20-5.40 [facility] Comment on above: Performed By: #### P ROGLCM #### [facility] [address] [place] [address] Dr. Jaz Barajas WBC 10.7 103/ul Normal 4.0-11.0 [facility] Comment on above: Performed By: #### P ROGLCM #### [facility] [address] [place] [address] ABD/PELV W CONon [...] GERALDINE LAZAR Date: 2022-11-15 09:13 Normal [facility] ER URINE PROFILEon 3 Bilirubin Ql (U) Negative Normal NEGATIVE [facility] Comment on above: Performed By: #### P ROGLCM #### [facility] [address] [place] [address] Dr. Jaz Barajas Clarity (U) CLEAR Normal CLEAR [facility] Comment on above: Performed By: #### P ROGLCM #### [facility] [address] [place] [address] Dr. Jaz Barajas Color (U) LT. YELLOW Normal YELLOW [facility] Comment on above: Performed By: #### P ROGLCM #### [facility] [address] [place] [address] Dr. Jaz Barajas ERUAHD A micrscopic examina tion will be performed if indicated. Normal [facility] Comment on above: Performed By: #### P ROGLCM #### [facility] [address] [address] [address] Jaz Barajas Glucose Ql (U) 1000 mg/dl Abnormal NEGATIVE [facility] Comment on above: Performed By: #### P ROGLCM #### [facility] [address] [place] [address] Dr. Jaz Barajas Hemoglobin Ql (U) Negative Normal NEGATIVE [facility] Comment on above: Performed By: #### P ROGLCM #### [facility] [address] [address] [address] Jaz Barajas Ketones Ql (U) Negative Normal NEGATIVE [facility] Comment on above: Performed By: #### P ROGLCM #### [facility] [address] [place] [address] Dr. Jaz Barajas LEUKOCYTES Negative Normal NEGATIVE [facility] Comment on above: Performed By: #### P ROGLCM #### [facility] [address] [place] [address] Dr. Jaz Barajas Nitrite Ql (U) Negative Normal NEGATIVE [facility] Comment on above: Performed By: #### P ROGLCM #### [facility] [address] [place] [address] Dr. Jaz Barajas pH (U) 6.0 [pH] Normal 5-9 [facility] Comment on above: Performed By: #### P ROGLCM #### [facility] [address] [place] [address] Dr. Jaz Barajas SPEC GRAVITY 1.015 Normal 1.005-<=1.02 5 [facility] Comment on above: Performed By: #### P ROGLCM #### [facility] [address] [place] [address] Dr. Jaz Barajas UA PROTEIN Negative Normal NEGATIVE/ TRACE [facility] Comment on above: Performed By: #### P ROGLCM #### [facility] [address] [place] [address] Dr. Jaz Barajas UR MICRO IND NOT INDICATED Normal [facility] Comment on above: Performed By: #### P ROGLCM #### [facility] [address] [place] [address] Dr. Jaz Barajas Urobilinogen Qn (U) 0.2 {Oxana'U}/dL Normal 0.2 - 1.0 [facility] Comment on above: Performed By: #### P ROGLCM #### [facility] [address] [address] [address] Jaz Barajas LIPASEon 11-15-2022 Lipase [Catalytic activity/Vol] 73.0 U/L Normal 73.0-393.0 [facility] Comment on above: Performed By: #### P REGU #### [facility] [address] [address] [address] Jaz Barajas URon 11-15-2022 , QUAL Negative Normal NEGATIVE [facility] Comment on above: Performed By: #### E RUR, PREGU ####[facility] [address] [address]Dr. Jaz Barajas PROF 14(COMP METB)on 023 Albumin [Mass/Vol] 3.6 g/dL Normal 3.4-5.0 [facility] Comment on above: Performed By: #### P REGU #### [facility] [address] [address] [address] Jaz Barajas Albumin/Globulin [Mass ratio] 0.9 {ratio} Normal [facility] Comment on above: Performed By: #### P REGU #### [facility] [address] [address] [address] Jaz Barajas ALP [Catalytic activity/Vol] 98 U/L Normal 46-116 [facility] Comment on above: Performed By: #### P REGU #### [facility] [address] [address] [address] Jaz Barajas ALT [Catalytic activity/Vol] 138 U/L Critically high 14-59 [facility] Comment on above: Performed By: #### P REGU #### [facility] [address] [address] [address] Jaz Barajas Anion gap [Moles/Vol] 13.4 mmol/L Normal [facility] Comment on above: Performed By: #### P REGU #### [facility] [address] [address] [address] Jaz Barajas AST [Catalytic activity/Vol] 61 U/L Critically high 15-37 [facility] Comment on above: Performed By: #### P REGU #### [facility] [address] [address] [address] Jaz Barajas Bilirubin [Mass/Vol] 0.2 mg/dL Normal 0.2-1.0 [facility] Comment on above: Performed By: #### P REGU #### [facility] [address] [address] [address] Jaz Barajas Calcium [Mass/Vol] 9.4 mg/dL Normal 8.5-10.1 [facility] Comment on above: Performed By: #### P REGU #### [facility] [address] [place] [address] Dr. Jaz Barajas Chloride [Moles/Vol] 104 mmol/L Normal 98-107 [facility] Comment on above: Performed By: #### P REGU #### [facility] [address] [address] [address] Jaz Barajas CO2 [Moles/Vol] 24.7 mmol/L Normal 21.0-32.0 [facility] Comment on above: Performed By: #### P REGU #### [facility] [address] [address] [address] Jaz Barajas Creatinine [Mass/Vol] 0.69 mg/dL Normal 0.55-1.02 [facility] Comment on above: Performed By: #### P REGU #### [facility] [address] [address] [address] Jaz Barajas EGFR-AF DUTCH >60 Normal >=60 [facility] Comment on above: Performed By: #### P REGU #### [facility] [address] [address] [address] Jaz Barajas EGFR-NON AF DUTCH >60 Normal >=60 [facility] Comment on above: Performed By: #### P REGU #### [facility] [address] [address] [address] Jaz Barajas Globulin (S) [Mass/Vol] 4.2 g/dL Normal [facility] Comment on above: Performed By: #### P REGU #### [facility] [address] [address] [address] Jaz Barajas Glucose [Mass/Vol] 339 mg/dL Critically high 74-106 [facility] Comment on above: Performed By: #### P REGU #### [facility] [address] [address] [address] Jaz Barajas Potassium [Moles/Vol] 4.1 mmol/L Normal 3.5-5.1 [facility] Comment on above: Performed By: #### P REGU #### [facility] [address] [place] [address] Dr. Jaz Barajas Protein [Mass/Vol] 7.8 g/dL Normal 6.4-8.2 [facility] Comment on above: Performed By: #### P REGU #### [facility] [address] [place] [address] Dr. Jaz Barajas Sodium [Moles/Vol] 138 mmol/L Normal 136-145 [facility] Comment on above: Performed By: #### P REGU #### [facility] [address] [place] [address] Dr. Jaz Barajas Urea nitrogen [Mass/Vol] 17.0 mg/dL Normal 7.0-18.0 [facility] Comment on above: Performed By: #### P REGU #### [facility] [address] [place] [address] Dr. Jaz Barajas Urea nitrogen/Creatinin e [Mass ratio] 24.6 mg/mg Normal [facility] Comment on above: Performed By: #### P REGU #### [facility] [address] [place] [address] Dr. Jaz Barajas CULTURE WOUNDon 11-13-2022 CULTURE [...] F Tetracycline >=16 R F Normal [facility] Comment on above: Performed By: #### W OUNDCX ####[facility] [address] [place], [place] [address]Dr. Jaz Barajas Covid-19 PCR (CVDTB)on 08-01 SARS-CoV-2 (COVID-19) RNA REANNA+probe Ql (Unsp spec) Not detected Normal NOT DETECTED [facility] Comment on above: Result Comment: This test is not yet approved or cleared by the [place] FDA. When there are no FDA-approved or cleared tests available, and other criteria are met, FDA can make tests available under an emergency access mechanism called an Emergency Use Authorization (EUA). The EUA for this test is supported by the [place] of Health and Human Service's (HHS's) declaration [...] SARS-CoV-2. Performed By: #### P ROGLCM #### [facility] [address] [place], [place] [address] Dr. Jaz Barajas INFLUENZA A AND B AGon 08-18 INFLUANEGH SEE BELOW Normal [facility] Comment on above: Result Comment: Nega tive for Flu A protein angiten. Infection due to Flu A cannot be ruled out. Flu A angiten in the sample may be below the detection limit of the test. Performed By: #### P ROGLCM #### [facility] [address] [address] [address] Jaz Barajas [facility] SEE BELOW Normal [facility] Comment on above: Result Comment: Nega tive for Flu B protein antigen. Infection due to Flu B cannot be ruled out. Flu B antigen in the sample may be below the detection limit of the test. Performed By: #### P ROGLCM #### [facility] [address] [address] [address] Jaz Barajas INFLUENZA A AG Negative Normal NEGATIVE SEE COMMENT [facility] Comment on above: Performed By: #### P ROGLCM #### [facility] [address] [place] [address] Dr. Jaz Barajas INFLUENZA B AG Negative Normal NEGATIVE SEE COMMENT [facility] Comment on above: Performed By: #### P ROGLCM #### [facility] [address] [place] [address] Dr. Jaz Barajas INTERNAL CONTROLS Within Normal Limits Normal Wi thin Normal Limits [facility] Comment on above: Performed By: #### P ROGLCM #### [facility] [address] [place] [address] Dr. Jaz Barajas POINT OF CARE GLUCOSEon - Glucose [Mass/Vol] 310 mg/dL Critically high 74-106 T [facility] Comment on above: Performed By: #### P ROGLCM #### [facility] [address] [place] [address] Dr. Jaz Barajas XR CHEST 1 Von [...] EDUARDO RHODES Date: 2022-08-18 15:33 Normal [facility] PREG HCG QUALon 05-14-2022 , QUAL Negative Normal NEGATIVE [facility] Comment on above: Performed By: #### P REG ####[facility] [address] [id number]. Jaz Barajas CBC AUTO DIFFon 05-08-2022 BASO # 0.1 103/ul Normal 0.0-0.1 [facility] Comment on above: Performed By: #### C BC ####[facility] [address] [id number]. Hannahisela Barajas Basophils/100 WBC (Bld) 0.6 % Normal 0.2-2.0 [facility] Comment on above: Performed By: #### C BC ####[facility] [address] [place], [place] [address]Dr. Hannahisela Barajas EO # 0.2 103/ul Normal 0.0-0.7 [facility] Comment on above: Performed By: #### C BC ####[facility] [address] [place], [place] [address]Dr. Hannahisela Barajas Eosinophils/100 WBC (Bld) 1.5 % Normal 0.9-7.0 [facility] Comment on above: Performed By: #### C BC ####[facility] [address] [place], [place] [address]Dr. Jaz Karl Erythrocyte distribution width (RBC) [Ratio] 12.6 % Normal 11.0-15.0 [facility] Comment on above: Performed By: #### C BC ####[facility] [address] [place], [place] [address]Dr. Jaz Barajas Hematocrit (Bld) [Volume fraction] 38.7 % Normal 36.0-48.0 [facility] Comment on above: Performed By: #### C BC ####[facility] [address] [place], [place] [address]Dr. Jaz Barajas Hemoglobin (Bld) [Mass/Vol] 12.9 g/dL Normal 12.0-16.0 [facility] Comment on above: Performed By: #### C BC ####[facility] [address] [place], [place] [address]Dr. Jaz Barajas IG # 0.02 10e3/ul Normal 0.00-0.03 [facility] Comment on above: Performed By: #### C BC ####[facility] [address] [place] [address]Dr. Hannahisela Barajas IG % 0.2 % Normal 0.0-0.5 [facility] Comment on above: Performed By: #### C BC ####[facility] [address] [place], [place] [address]Dr. Hannahisela Barajas LYMPH # 3.5 103/ul Normal 1.2-3.8 [facility] Comment on above: Performed By: #### C BC ####[facility] [address] [place], [place] [address]Dr. Hannahisela Barajas Lymphocytes/100 WBC (Bld) 34.4 % Normal 20.5-60.0 [facility] Comment on above: Performed By: #### C BC ####[facility] [address] [place], [place] [address]Dr. Jaz Barajas MANUAL DIFF REQ NO Normal [facility] Comment on above: Performed By: #### C BC ####[facility] [address] [place], [place] [address]Dr. Jaz aKrl MCH (RBC) [Entitic mass] 27.2 pg Normal 26.7-34.0 [facility] Comment on above: Performed By: #### C BC ####[facility] [address] [place], [place] [address]Dr. Jaz Karl MCHC (RBC) [Mass/Vol] 33.3 g/dL Normal 29.9-35.2 [facility] Comment on above: Performed By: #### C BC ####[facility] [address] [place], [place] [address]Dr. Hannahisela Barajas MCV (RBC) [Entitic vol] 81.6 fL Normal 81.0-99.0 [facility] Comment on above: Performed By: #### C BC ####[facility] [address] [place], [place] [address]Dr. Jaz Barajas MONO # 0.7 103/ul Normal 0.3-0.8 [facility] Comment on above: Performed By: #### C BC ####[facility] [address] [place] [id number]. Jaz Barajas Monocytes/100 WBC (Bld) 7.0 % Normal 1.7-12.0 [facility] Comment on above: Performed By: #### C BC ####[facility] [address] [place] [id number]. Jaz Barajas NEUT # 5.7 103/ul Normal 1.4-6.5 [facility] Comment on above: Performed By: #### C BC ####[facility] [address] [place] [id number]. Jaz Barajas Neutrophils/100 WBC (Bld) 56.3 % Normal 43.0-75.0 [facility] Comment on above: Performed By: #### C BC ####[facility] [address] [place] [address]Dr. Jaz Barajas Platelet mean volume (Bld) [Entitic vol] 11.0 fL Normal 9.5-13.5 [facility] Comment on above: Performed By: #### C BC ####[facility] [address] [place] [id number]. Jaz Barajas PLT 274 103/ul Normal 150-450 [facility] Comment on above: Performed By: #### C BC ####[facility] [address] [place] [id number]. Jaz Barajas RBC 4.74 106/ul Normal 4.20-5.40 [facility] Comment on above: Performed By: #### C BC ####[facility] [address] [place] [id number]. Jaz Barajas WBC 10.0 103/ul Normal 4.0-11.0 [facility] Comment on above: Performed By: #### C BC ####[facility] [address] [place] [address]Dr. Jaz Barajas [facility]on SARS-CoV-2 (COVID-19) RNA REANNA+probe Ql (Unsp spec) Not detected Normal NOT DETECTED [facility] Comment on above: Result Comment: This test is not yet approved or cleared by the [place] FDA. When there are no FDA-approved or cleared tests available, and other criteria are met, FDA can make tests available under an emergency access mechanism called an Emergency Use Authorization (EUA). The EUA for this test is supported by the [place] of Health and Human Service's (HHS's) declaration [...] SARS-CoV-2. Performed By: #### P REGU #### [facility] [address] [place] [address] Dr. Jaz Barajas PROF CHEM 8 (BAS METB)on Anion gap [Moles/Vol] 10.1 mmol/L Normal [facility] Comment on above: Performed By: #### P REGU #### [facility] [address] [place] [address] Dr. Jaz Barajas Calcium [Mass/Vol] 9.0 mg/dL Normal 8.5-10.1 [facility] Comment on above: Performed By: #### P REGU #### [facility] [address] [place] [address] Dr. Jaz Barajas Chloride [Moles/Vol] 99 mmol/L Normal 98-107 [facility] Comment on above: Performed By: #### P REGU #### [facility] [address] [place] [address] Dr. Jaz Barajas CO2 [Moles/Vol] 29.1 mmol/L Normal 21.0-32.0 [facility] Comment on above: Performed By: #### P REGU #### [facility] [address] [address] [address] Jaz Barajas Creatinine [Mass/Vol] 0.80 mg/dL Normal 0.55-1.02 [facility] Comment on above: Performed By: #### P REGU #### [facility] [address] [place] [address] Dr. Jaz Barajas EGFR-AF DUTCH >60 Normal >=60 [facility] Comment on above: Performed By: #### P REGU #### [facility] [address] [address] [address] Jaz Barajas EGFR-NON AF DUTCH >60 Normal >=60 [facility] Comment on above: Performed By: #### P REGU #### [facility] [address] [place] [address] Dr. Jaz Barajas Glucose [Mass/Vol] 217 mg/dL Critically high 74-106 T [facility] Comment on above: Performed By: #### P REGU #### [facility] [address] [place] [address] Dr. Jaz Barajas Potassium [Moles/Vol] 4.2 mmol/L Normal 3.5-5.1 [facility] Comment on above: Result Comment: spec imen slightly hemolyzed may affect K+ result Performed By: #### P REGU #### [facility] [address] [place] [address] Dr. Jaz Barajas Sodium [Moles/Vol] 134 mmol/L Critically low 136-145 Th [facility] Comment on above: Performed By: #### P REGU #### [facility] [address] [place] [address] Dr. Jaz Barajas Urea nitrogen [Mass/Vol] 11.0 mg/dL Normal 7.0-18.0 [facility] Comment on above: Performed By: #### P REGU #### [facility] [address] [place] [address] Dr. Jaz Barajas Urea nitrogen/Creatinin e [Mass ratio] 13.8 mg/mg Normal [facility] Comment on above: Performed By: #### P REGU #### [facility] [address] [place], [place] [address] ABD/PELV W CONon [...] JEYSON BLANTON Date: 2022-04-18 12:31 Normal [facility] ER URINE PROFILEon 2 Bilirubin Ql (U) Negative Normal NEGATIVE [facility] Comment on above: Performed By: #### E NAMITAR, PREGU ####[facility] [address] [place], [place] [address]WvDr. Jaz Barajas Clarity (U) CLEAR Normal CLEAR [facility] Comment on above: Performed By: #### E RUR, PREGU ####[facility] [address] [address]Dr. Jaz Barajas Color (U) LT. YELLOW Normal YELLOW [facility] Comment on above: Performed By: #### Neva RUR, PREGU ####[facility] [address] [address]Dr. Jaz Barajas ERUAHD A micrscopic examina tion will be performed if indicated. Normal [facility] Comment on above: Performed By: #### Neva RUR, PREGU ####[facility] [address] [place], [place] [address]Dr. Jaz Barajas Glucose Ql (U) 1000 mg/dl Abnormal NEGATIVE [facility] Comment on above: Performed By: #### Neva CASTRO, PREGU ####[facility] [address] [place], [place] [address]Dr. Jaz Barajas Hemoglobin Ql (U) Negative Normal NEGATIVE [facility] Comment on above: Performed By: #### Neva RUR, PREGU ####[facility] [address] [place], [place] [address]Dr. Jaz Barajas Ketones Ql (U) Negative Normal NEGATIVE [facility] Comment on above: Performed By: #### Neva RUR, PREGU ####[facility] [address] [place], [place] [address]Dr. Jaz Barajas LEUKOCYTES Negative Normal NEGATIVE [facility] Comment on above: Performed By: #### Neva BREAUXR, PREGU ####[facility] [address] [place], [place] [address]Dr. Jaz Barajas Nitrite Ql (U) Negative Normal NEGATIVE [facility] Comment on above: Performed By: #### Neva RUR, PREGU ####[facility] [address] [place], [place] [address]Dr. Jaz Barajas pH (U) 6.5 [pH] Normal 5-9 [facility] Comment on above: Performed By: #### Neva RUR, PREGU ####[facility] [address] [place], [place] [address]Dr. Jaz Barajas SPEC GRAVITY 1.010 Normal 1.005-<=1.02 5 [facility] Comment on above: Performed By: #### E RUR, PREGU ####[facility] [address] [address]Dr. Jaz Barajas UA PROTEIN Negative Normal NEGATIVE/ TRACE [facility] Comment on above: Performed By: #### E RUR, PREGU ####[facility] [address] [address]Dr. Jaz Barajas UR MICRO IND NOT INDICATED Normal [facility] Comment on above: Performed By: #### E RUR, PREGU ####[facility] [address] [address]Dr. Jaz Barajas Urobilinogen Qn (U) 0.2 {Oxana'U}/dL Normal 0.2 - 1.0 [facility] Comment on above: Performed By: #### E RUR, PREGU ####[facility] [address] [address]Dr. Jaz Barajas URon 04-18-2022 , QUAL Negative Normal NEGATIVE [facility] Comment on above: Performed By: #### E RUR, PREGU ####[facility] [address] [address]Dr. Jaz Barajas 17-OH PROGESTERONE, LC/MSon 04-05-2022 17-OH Progesterone LCMS 43 ng/dL Normal [facility] Comment on above: Result Comment: Adul t Female Follicular 15 - 70 Luteal 35 - 290 Performed By: #### P ROGLCM #### [facility] [address] [place] [address] Dr. Jaz Barajas ANDROSTENEDINE LC/MSon 04-05 Androstenedione LCMS 111 ng/dL Normal 41-262 [facility] Comment on above: Result Comment: This test was developed and its performance characteristics determined by [facility]. It has not been cleared or approved by the Food and Drug Administration. Performed By: #### A NDROST #### [facility] [address] [place] [address] Dr. Jaz Barajas TESTOSTERONE, TOTALon 08-02- 2022 Testosterone [Mass/Vol] 70 ng/dL Critically high 8-60 [facility] Comment on above: Performed By: #### T ESTTOT ####[facility] [address] [place], [place] [address]Dr. Jaz Barajas PROF CHEM 8 (BAS METB)on Anion gap [Moles/Vol] 11.5 mmol/L Normal [facility] Comment on above: Performed By: #### B MP ####[facility] [address] [place], [place] [address]Dr. Jaz Barajas Calcium [Mass/Vol] 9.1 mg/dL Normal 8.5-10.1 [facility] Comment on above: Performed By: #### B MP ####[facility] [address] [place], [place] [address]Dr. Jaz Barajas Chloride [Moles/Vol] 103 mmol/L Normal 98-107 [facility] Comment on above: Performed By: #### B MP ####[facility] [address] [place], [place] [address]Dr. Jaz Barajas CO2 [Moles/Vol] 28.0 mmol/L Normal 21.0-32.0 [facility] Comment on above: Performed By: #### B MP ####[facility] [address] [place], [place] [address]Dr. Jaz Barajas Creatinine [Mass/Vol] 0.74 mg/dL Normal 0.55-1.02 [facility] Comment on above: Performed By: #### B MP ####[facility] [address] [place], [place] [address]Dr. Jaz Barajas EGFR-AF DUTCH >60 Normal >=60 [facility] Comment on above: Performed By: #### B MP ####[facility] [address] [place], [place] [address]Dr. Jaz Barajas EGFR-NON AF DUTCH >60 Normal >=60 [facility] Comment on above: Performed By: #### B MP ####[facility] [address] [place], [place] [address]Dr. Jaz Barajas Glucose [Mass/Vol] 197 mg/dL Critically high 74-106 T [facility] Comment on above: Performed By: #### B MP ####[facility] [address] [address]Dr. Jaz Barajas Potassium [Moles/Vol] 4.5 mmol/L Normal 3.5-5.1 [facility] Comment on above: Performed By: #### B MP ####[facility] [address] [address]Dr. Jaz Barajas Sodium [Moles/Vol] 138 mmol/L Normal 136-145 [facility] Comment on above: Performed By: #### B MP ####[facility] [address] [address]Dr. Jaz Barajas Urea nitrogen [Mass/Vol] 11.0 mg/dL Normal 7.0-18.0 [facility] Comment on above: Performed By: #### B MP ####[facility] [address] [address]Dr. Jaz Barajas Urea nitrogen/Creatinin e [Mass ratio] 14.9 mg/mg Normal [facility] Comment on above: Performed By: #### B MP ####[facility] [address] [address]Dr. Jaz Barajas XR ABD FLAT_UPon 02-06-2022 XR [...] EDUARDO RIVERS Date: 2022-02-06 17:25 Normal [facility] CREATININEon 01-31-2022 Creatinine [Mass/Vol] 0.74 mg/dL Normal 0.55-1.02 [facility] Comment on above: Performed By: #### P ROGLCM #### [facility] [address] [address] [address] Jaz Barajas EGFR-AF DUTCH >60 Normal >=60 [facility] Comment on above: Performed By: #### P ROGLCM #### [facility] [address] [place], [place] [address] Dr. Jaz Barajas EGFR-NON AF DUTCH >60 Normal >=60 [facility] Comment on above: Performed By: #### P ROGLCM #### [facility] [address] [place], [place] [address] ABDOMEN W CONon [...] JEYSON BLANTON Date: 2022-01-31 18:16 Normal [facility] ACETONE SERUMon 01-09-2022 ACETONE Negative Normal NEGATIVE [facility] Comment on above: Performed By: #### A CETON ####[facility] [address] [address]Dr. Jaz Barajas CARDIAC BISI ADMITon 022 CK [Catalytic activity/Vol] 58 U/L Normal 26-192 [facility] Comment on above: Performed By: #### P REGU #### [facility] [address] [place] [address] Dr. Jaz Barajas CK.MB [Mass/Vol] 0.64 ng/mL Normal <=3.60 [facility] Comment on above: Performed By: #### P REGU #### [facility] [address] [place] [address] Dr. Jaz Barajas HSTROP 5.3 pg/mL Normal 4.0-51.3 [facility] Comment on above: Result Comment: CUT- OFF POINTS HAVE BEEN ESTABLISHED BASED ON THE FOURTH UNIVERSAL DEFINITIONS OF MYOCARDIAL INFARCTION. THE UPPER REFERENCE LIMIT (URL) OF TROPONIN, DEFINED THE 99TH PERCENTILE OF cTnI DISTRIBUTION IN A REFERENCE POPULATION, HAS BEEN CONFIRMED THE DECISION THRESHOLD FOR CO DIAGNOSIS. Performed By: #### P REGU #### [facility] [address] [place] [address] Dr. Jaz Barajas WIA 30 ng/mL Normal 9-82 [facility] Comment on above: Performed By: #### P REGU #### [facility] [address] [place] [address] Dr. Jaz Barajas CBC AUTO DIFFon 01-09-2022 BASO # 0.1 103/ul Normal 0.0-0.1 [facility] Comment on above: Performed By: #### P REGU #### [facility] [address] [place] [address] Dr. Jaz Barajas Basophils/100 WBC (Bld) 0.5 % Normal 0.2-2.0 [facility] Comment on above: Performed By: #### P REGU #### [facility] [address] [place] [address] Dr. Jaz Barajas EO # 0.3 103/ul Normal 0.0-0.7 [facility] Comment on above: Performed By: #### P REGU #### [facility] [address] [place] [address] Dr. Jaz Barajas Eosinophils/100 WBC (Bld) 2.5 % Normal 0.9-7.0 [facility] Comment on above: Performed By: #### P REGU #### [facility] [address] [place] [address] Dr. Jaz Barajas Erythrocyte distribution width (RBC) [Ratio] 12.8 % Normal 11.0-15.0 [facility] Comment on above: Performed By: #### P REGU #### [facility] [address] [place] [address] Dr. Jaz Barajas Hematocrit (Bld) [Volume fraction] 41.0 % Normal 36.0-48.0 [facility] Comment on above: Performed By: #### P REGU #### [facility] [address] [place] [address] Dr. Jaz Barajas Hemoglobin (Bld) [Mass/Vol] 13.6 g/dL Normal 12.0-16.0 [facility] Comment on above: Performed By: #### P REGU #### [facility] [address] [place] [address] Dr. Jaz Barajas IG # 0.03 10e3/ul Normal 0.00-0.03 [facility] Comment on above: Performed By: #### P REGU #### [facility] [address] [place] [address] Dr. Jaz Barajas IG % 0.3 % Normal 0.0-0.5 [facility] Comment on above: Performed By: #### P REGU #### [facility] [address] [place] [address] Dr. Jaz Barajas LYMPH # 2.7 103/ul Normal 1.2-3.8 [facility] Comment on above: Performed By: #### P REGU #### [facility] [address] [place] [address] Dr. Jaz Barajas Lymphocytes/100 WBC (Bld) 25.7 % Normal 20.5-60.0 [facility] Comment on above: Performed By: #### P REGU #### [facility] [address] [place] [address] Dr. Jaz Barajas MANUAL DIFF REQ NO Normal [facility] Comment on above: Performed By: #### P REGU #### [facility] [address] [place] [address] Dr. Jaz Barajas MCH (RBC) [Entitic mass] 27.7 pg Normal 26.7-34.0 [facility] Comment on above: Performed By: #### P REGU #### [facility] [address] [place] [address] Dr. Jaz Barajas MCHC (RBC) [Mass/Vol] 33.2 g/dL Normal 29.9-35.2 [facility] Comment on above: Performed By: #### P REGU #### [facility] [address] [place] [address] Dr. Jaz Barajas MCV (RBC) [Entitic vol] 83.5 fL Normal 81.0-99.0 [facility] Comment on above: Performed By: #### P REGU #### [facility] [address] [place] [address] Dr. Jaz Barajas MONO # 0.8 103/ul Normal 0.3-0.8 [facility] Comment on above: Performed By: #### P REGU #### [facility] [address] [place] [address] Dr. Jaz Barajas Monocytes/100 WBC (Bld) 7.4 % Normal 1.7-12.0 [facility] Comment on above: Performed By: #### P REGU #### [facility] [address] [place] [address] Dr. Jaz Barajas NEUT # 6.6 103/ul Critically high 1.4-6.5 [facility] Comment on above: Performed By: #### P REGU #### [facility] [address] [place] [address] Dr. Jaz Barajas Neutrophils/100 WBC (Bld) 63.6 % Normal 43.0-75.0 [facility] Comment on above: Performed By: #### P REGU #### [facility] [address] [place] [address] Dr. Jaz Barajas Platelet mean volume (Bld) [Entitic vol] 11.5 fL Normal 9.5-13.5 [facility] Comment on above: Performed By: #### P REGU #### [facility] [address] [place] [address] Dr. Jaz Barajas PLT 227 103/ul Normal 150-450 [facility] Comment on above: Performed By: #### P REGU #### [facility] [address] [address] [address] Jaz Barajas RBC 4.91 106/ul Normal 4.20-5.40 [facility] Comment on above: Performed By: #### P REGU #### [facility] [address] [address] [address] Jaz Barajas WBC 10.4 103/ul Normal 4.0-11.0 [facility] Comment on above: Performed By: #### P REGU #### [facility] [address] [place] [address] Dr. Jaz Barajas CTA CHEST WO W [...] JEYSON BLANTON Date: 2022-01-09 09:47 Normal [facility] D-DIMERon 01-09-2022 D-DIMER 0.56 mg/L FEU Critically high 0.19-0.50 [facility] Comment on above: Result Comment: test repeated critical value verified Performed By: #### D DIM, PT, PTT #### [facility] [address] [address] [address] Jaz Barajas D-DIMER COMMENTS SEE BELOW Normal [facility] Comment on above: Result Comment: Incr eases [...] By: #### D DIM, PT, PTT #### [facility] [address] [address] [address] Jaz Barajas ER URINE PROFILEon 2 Bilirubin Ql (U) Negative Normal NEGATIVE [facility] Comment on above: Performed By: #### P ROGLCM #### [facility] [address] [place] [address] Dr. Jaz Barajas Clarity (U) CLEAR Normal CLEAR [facility] Comment on above: Performed By: #### P ROGLCM #### [facility] [address] [place] [address] Dr. Jaz Barajas Color (U) YELLOW Normal YELLOW [facility] Comment on above: Performed By: #### P ROGLCM #### [facility] [address] [place] [address] Dr. Jaz Barajas ERUAHD A micrscopic examina tion will be performed if indicated. Normal [facility] Comment on above: Performed By: #### P ROGLCM #### [facility] [address] [place] [address] Dr. Jaz Barajas Glucose Ql (U) 500 mg/dl Abnormal NEGATIVE [facility] Comment on above: Performed By: #### P ROGLCM #### [facility] [address] [place] [address] Dr. Jaz Barajas Hemoglobin Ql (U) Negative Normal NEGATIVE [facility] Comment on above: Performed By: #### P ROGLCM #### [facility] [address] [place] [address] Dr. Jaz Barajas Ketones Ql (U) Negative Normal NEGATIVE [facility] Comment on above: Performed By: #### P ROGLCM #### [facility] [address] [place] [address] Dr. Jaz Barajas LEUKOCYTES Negative Normal NEGATIVE [facility] Comment on above: Performed By: #### P ROGLCM #### [facility] [address] [place] [address] Dr. Jaz Barajas Nitrite Ql (U) Negative Normal NEGATIVE [facility] Comment on above: Performed By: #### P ROGLCM #### [facility] [address] [place] [address] Dr. Jaz Barajas pH (U) 6.0 [pH] Normal 5-9 [facility] Comment on above: Performed By: #### P ROGLCM #### [facility] [address] [place] [address] Dr. Jaz Barajas SPEC GRAVITY >=1.030 Abnormal 1.005-<=1.02 5 [facility] Comment on above: Performed By: #### P ROGLCM #### [facility] [address] [place] [address] Dr. Jaz Barajas UA PROTEIN Negative Normal NEGATIVE/ TRACE [facility] Comment on above: Performed By: #### P ROGLCM #### [facility] [address] [place] [address] Dr. Jaz Barajas UR MICRO IND NOT INDICATED Normal [facility] Comment on above: Performed By: #### P ROGLCM #### [facility] [address] [place] [address] Dr. Jaz Barajas Urobilinogen Qn (U) 0.2 {Oxana'U}/dL Normal 0.2 - 1.0 [facility] Comment on above: Performed By: #### P ROGLCM #### [facility] [address] [address] [address] Jaz Barajas PH VENOUS BLOODon 01-09-2022 PCO2 VENOUS 39.2 mmHg Critically low 40.0-52.0 [facility] Comment on above: Performed By: #### P HVEN #### [facility] [address] [address] [address] Jaz Barajas pH VENOUS 7.409 Normal 7.330-7.430 [facility] Comment on above: Performed By: #### P HVEN #### [facility] [address] [address] [address] Jaz Barajas URon 01-09-2022 , QUAL Negative Normal NEGATIVE [facility] Comment on above: Performed By: #### P REGU #### [facility] [address] [place] [address] Dr. Jaz Barajas PROF 14(COMP METB)on 022 Albumin [Mass/Vol] 3.2 g/dL Critically low 3.4-5.0 [facility] Comment on above: Performed By: #### P REGU #### [facility] [address] [place] [address] Dr. Jaz Barajas Albumin/Globulin [Mass ratio] 0.8 {ratio} Normal [facility] Comment on above: Performed By: #### P REGU #### [facility] [address] [place] [address] Dr. Jaz Barajas ALP [Catalytic activity/Vol] 109 U/L Normal 46-116 [facility] Comment on above: Performed By: #### P REGU #### [facility] [address] [address] [address] Jaz Barajas ALT [Catalytic activity/Vol] 95 U/L Critically high 14-59 [facility] Comment on above: Performed By: #### P REGU #### [facility] [address] [place] [address] Dr. Jaz Barajas Anion gap [Moles/Vol] 11.7 mmol/L Normal [facility] Comment on above: Performed By: #### P REGU #### [facility] [address] [address] [address] Jaz Barajas AST [Catalytic activity/Vol] 44 U/L Critically high 15-37 [facility] Comment on above: Performed By: #### P REGU #### [facility] [address] [address] [address] Jaz Barajas Bilirubin [Mass/Vol] 0.3 mg/dL Normal 0.2-1.0 [facility] Comment on above: Performed By: #### P REGU #### [facility] [address] [address] [address] Jaz Barajas Calcium [Mass/Vol] 8.8 mg/dL Normal 8.5-10.1 [facility] Comment on above: Performed By: #### P REGU #### [facility] [address] [address] [address] Jaz Barajas Chloride [Moles/Vol] 102 mmol/L Normal 98-107 [facility] Comment on above: Performed By: #### P REGU #### [facility] [address] [address] [address] Jaz Barajas CO2 [Moles/Vol] 25.3 mmol/L Normal 21.0-32.0 [facility] Comment on above: Performed By: #### P REGU #### [facility] [address] [address] [address] Jaz Barajas Creatinine [Mass/Vol] 0.86 mg/dL Normal 0.55-1.02 [facility] Comment on above: Performed By: #### P REGU #### [facility] [address] [address] [address] Jaz Barajas EGFR-AF DUTCH >60 Normal >=60 [facility] Comment on above: Performed By: #### P REGU #### [facility] [address] [address] [address] Jaz Barajas EGFR-NON AF DUTCH >60 Normal >=60 [facility] Comment on above: Performed By: #### P REGU #### [facility] [address] [address] [address] Jaz Barajas Globulin (S) [Mass/Vol] 3.9 g/dL Normal [facility] Comment on above: Performed By: #### P REGU #### [facility] [address] [address] [address] Jaz Barajas Glucose [Mass/Vol] 230 mg/dL Critically high 74-106 T [facility] Comment on above: Performed By: #### P REGU #### [facility] [address] [address] [address] Jaz Barajas Potassium [Moles/Vol] 4.0 mmol/L Normal 3.5-5.1 [facility] Comment on above: Performed By: #### P REGU #### [facility] [address] [address] [address] Jaz Barajas Protein [Mass/Vol] 7.1 g/dL Normal 6.4-8.2 [facility] Comment on above: Performed By: #### P REGU #### [facility] [address] [address] [address] Jaz Barajas Sodium [Moles/Vol] 135 mmol/L Critically low 136-145 Th [facility] Comment on above: Performed By: #### P REGU #### [facility] [address] [address] [address] Jaz Barajas Urea nitrogen [Mass/Vol] 15.0 mg/dL Normal 7.0-18.0 [facility] Comment on above: Performed By: #### P REGU #### [facility] [address] [address] [address] Jaz Barajas Urea nitrogen/Creatinin e [Mass ratio] 17.4 mg/mg Normal [facility] Comment on above: Performed By: #### P REGU #### [facility] [address] [address] [address] Jaz Barajas PROTIMEon 01-09-2022 INR Coag (PPP) [Relative time] 0.96 {INR} Normal [facility] Comment on above: Performed By: #### D DIM, PT, PTT #### [facility] [address] [place] [address] Dr. Jaz Barajas INR GUIDELINES SEE BELOW Normal [facility] Comment on above: Result Comment: UMU RED INR: 2.0 - 3.0 CONDITIONS NOT LISTED BELOW 2.5 - 3.5 FOR PROSTHETIC HEART VALVE REPLACEMENT 2.5 - 3.5 RECURRENT THROMBOSIS Performed By: #### D DIM, PT, PTT #### [facility] [address] [place] [address] Dr. Jaz Barajas PT Coag (PPP) [Time] 10.4 s Normal 9.0-11.6 [facility] Comment on above: Performed By: #### D DIM, PT, PTT #### [facility] [address] [place] [address] Dr. Jaz Barajas PTTon 01-09-2022 aPTT Coag (Bld) [Time] 28.8 s Normal 22.3-36.2 [facility] Comment on above: Performed By: #### D DIM, PT, PTT #### [facility] [address] [place] [address] Dr. Jaz Barajas TROPONIN, HIGH SENSITIVITYon 01-09-2022 HSTROP 4.5 pg/mL Normal 4.0-51.3 [facility] Comment on above: Result Comment: CUT- OFF POINTS HAVE BEEN ESTABLISHED BASED ON THE FOURTH UNIVERSAL DEFINITIONS OF MYOCARDIAL INFARCTION. THE UPPER REFERENCE LIMIT (URL) OF TROPONIN, DEFINED THE 99TH PERCENTILE OF cTnI DISTRIBUTION IN A REFERENCE POPULATION, HAS BEEN CONFIRMED THE DECISION THRESHOLD FOR CO DIAGNOSIS. Performed By: #### P ROGLCM #### [facility] [address] [place] [address] Dr. Jaz Barajas TSHon 01-09-2022 TSH 2.769 uIU/mL Normal 0.358-3.740 [facility] Comment on above: Performed By: #### P REGU #### [facility] [address] [place] [address] Dr. Jaz Barajas TSH RANGE SEE BELOW Normal [facility] Comment on above: Result Comment: <0.3 4 UIU/ml HYPERTHYROID 0.34-5.60 UIU/ml EUTHYROID >5.60 UIU/ml HYPOTHYROID Performed By: #### P REGU #### [facility] [address] [place] [address] Dr. Jaz Barajas XR CHEST 1 Von [...] EDUARDO RIVERS Date: 2022-01-09 08:29 Normal [facility] Vital Signs Date Time Vital Sign Value Performing Clinician Faci lity 11-27-2023 12:54-0400 Body temperature 97.88 [degF] Riky Le [facility] 11-27-2023 12:54-0400 Diastolic blood pressure 86 mm[Hg] Riky Le [facility] 11-27-2023 12:54-0400 Heart rate 78 /min Riky Le [facility] 11-27-2023 12:54-0400 Respiratory rate 20 /min Riky Le [facility] 11-27-2023 12:54-0400 SaO2% (BldA) [Mass fraction] 98 % Riky Le [facility] 11-27-2023 12:54-0400 Systolic blood pressure 133 mm[Hg] Riky Le [facility] Encounters Encounter Date Encounter Type Care Provider Facility Start: 05-11-2024 End: 05-11-2024 ambulatory JOANN A FELTER Not Available Start: 04-29-2024 End: 04-29-2024 ambulatory JOANN A FELTER Not Available Start: 03-16-2024 End: 03-16-2024 ambulatory ARIANE AICHHOLZ Not Available Start: 02-02-2024 End: 02-02-2024 ambulatory Rush Garcia MD Facility:[facility] Start: 01-15-2024 End: 01-15-2024 ambulatory ARIANE AICHHOLZ Not Available Start: 12-25-2023 End: 12-25-2023 ambulatory ARIANE AICHHOLZ Not Available Start: 11-27-2023 End: 11-27-2023 Emergency department patient visit Riky Le Facility:[facility] Start: 11-27-2023 End: 11-27-2023 Emergency department patient visit Riky Le [facility] Start: 12-14-2022 End: 12-15-2022 ambulatory [employer] ARIANE AICHHOLZ Facility:[facility] Start: 12-11-2022 End: 12-12-2022 ambulatory [employer] ARIANE AICHHOLZ Facility:[facility] Start: 11-15-2022 End: 11-15-[address] SKY DAVIS . Facility:[facility] Start: 11-10-2022 End: 11-10-[address] QUANG LANDA . Facility:[facility] Start: 08-18-2022 End: 08-18-2022 ambulatory GABINO Mckinnon Facility:[facility] Start: 07-09-2022 End: 07-09-[address] SKY DAVIS . Facility:[facility] Start: 05-14-2022 End: 05-14-2022 ambulatory [employer] ARIANE AICHHOLZ Facility:[facility] Start: 05-13-2022 Encounter for preprocedural laboratory examination DR ROSA APONTE [facility] Start: 05-08-2022 End: 05-09-[address] ROSA APONTE Facility:[facility] Start: 05-08-2022 End: 05-09-2022 Encounter for preprocedural laboratory examination DR ROSA APONTE Facility:[facility] Start: 04-18-2022 End: 04-18-2022 ambulatory [employer] ARIANE AICHMJZ Facility:[facility] Start: 04-01-2022 End: 04-02-2022 ambulatory FORREST WELLS Facility:[facility] Start: 02-06-2022 End: 02-07-2022 ambulatory FORREST WELLS Facility:[facility] Start: 01-31-2022 End: 02-01-2022 ambulatory AMINATA BOURGEOIS Facility:[facility] Start: 01-24-2022 ambulatory FORREST WELLS Facil ity:[facility] Start: 01-09-2022 End: 01-09-2022 ambulatory [...] Le Payers Date Payer Category Payer Medicaid [id number] 2023 Unknown 2022 Medicaid [id number] 1988 Unknown [id number] 2.16.84 [id number] 1988 Unknown [id number] 2.16.84 0.1.230918.3.579.2.593 1988 Unknown [id number] 2.16.84 0.1.432903.3.579.2.593 1988 Unknown [id number] 2.16.84 0.1.603074.3.579.2.593 1988 Unknown [id number] 2.16.84 0.1.524389.3.579.2.593 1988 Unknown [id number] 2.16.84 0.1.990574.3.579.2.593 1988 Unknown [id number] 2.16.84 0.1.383867.3.579.2.593 1988 Unknown [id number] 2.16.84 0.1.120240.3.579.2.593 1988 Unknown [id number] 2.16.84 0.1.926555.3.579.2.593 1988 Unknown [id number] 2.16.84 0.1.025800.3.579.2.593 1988 Unknown [id number] 2.16.84 0.1.880056.3.579.2.593 1988 Unknown [id number] 2.16.84 0.1.816595.3.579.2.593 1988 Unknown [id number] 2.16.84 0.1.666589.3.579.2.593 1988 Unknown [id number] 2.16.8 40.1.639542.3.579.2.727 1988 Unknown [id number] 2.16. 840.1.927550.3.579.2.196 1988 Unknown [id number] 2.16.84 0.1.413507.3.579.2.1259 1988 Unknown [id number] 2.16.84 0.1.799720.3.579.2.1259 1988 Unknown [id number] 2.16.84 0.1.037995.3.579.2.1259 1988 Unknown [id number] 2.16.84 0.1.229736.3.579.2.1259 1988 Unknown [id number] 2.16.84 0.1.980207.3.579.2.1259 1959 Unknown [id number] 1959 Unknown [id number] Social History Date Type Detail Facility Start: 02-20-2022 Tobacco smoking status Heavy t obacco smoker (finding) [facility] Tobacco smoking status Never [facility] [place] Sex Assigned At Female [facility] Functional Status Date Assessment Result Facility 11-27-2023 Functional Status N/A [facility] Discharge instructions 11-27-2023 Note Date & [...] to strengthen the arm. General instructions Take [id number] and prescription medicines only as told by [...] provider. Document Revised: 05/03/2022 Document Reviewed: 05/03/2022 Cover [employer] Patient Education 2022 [employer]. Follow Up Care 11/27/2023 12:54:30 With:Georgi Pfeiffer Address: [address] [place] [id number] Business (1) When:11/30/2023 15:21:31 [facility] Evaluation + Plan note 11-27-2023 Note [...] EDT, Weight Dosing XR Shoulder Complete Right [facility] Clinical Note 12-16-2022 Note Date [...] finding from previous exam.. Electronically authenticated by: HAYED VAN Date: 2022-12-16 07:21 [facility] Clinical Note 12-16-2022 Note Date & Type [...] authenticated by: HAYDE VAN Date: 2022-12-16 07:17 [facility] Clinical Note 05-14-2022 Note Date [...] room in good condition. [facility] course Narrative Note Date & Type Note Facility Hospital course Narrative No data available for this section [facility] Progress note Note Date & Type Note Facility Progress note No data available for this section [facility] Summary Purpose Family History No Family History Records Found No data available for this section No Family History Records FoundNo Family History Records FoundNo Family History Records Found Advance Directives No Advanced Directives Records FoundNo Advanced Directives Records FoundNo Advanced Directives Records FoundNo Advanced Directives Records Found Additional Source Comments INFORMATION SOURCE (unrecogn ized section and content) DATE CREATED AUTHOR 12/19/2022 [facility] DATE CREATED AUTHOR AUTHOR'S ORGANIZ ATION 11/29/2023 [facility] DATE CREATED AUTHOR AUTHOR'S ORGANIZ ATION 02/13/2024 [facility] DATE CREATED AUTHOR AUTHOR'S ORGANIZ ATION 05/13/2024 [facility] EPIC Patient Care team informatio n (unrecognized section and content) Personnel Name: ARIANE WELLS CNP Address: Address: [address] [place] [address] FOR RECORDS PERTAINING TO PATIENTS WHO ARE [...] BE BASED ON THE PRIMARY CLINICAL RECORDS. [facility] [employer] [facility]. provides no warranty or guarantee of the accuracy or completeness of information in this document.
--- NOTE | 2024-05-30 09:19 | ED.GENADUL1 ---
HPI HPI - General Adult General Chief complaint: Upper Respiratory Infection Stated complaint: EARACHE FEVER AND STOMACH PAIN Time Seen by Provider: 05/30/24 09:08 Source: patient Mode of arrival: walk-in History of Present Illness HPI narrative: 33-year-old female presents to the emergency department for congestion and sore throat. She states yesterday she developed drainage down her throat and last week her son had strep throat. She had a great deal of sweating last night and has not checked her temperature. No vomiting or diarrhea. She has a mild cough. Related Data Home Medications ?Medication ?Instructions ?Recorded ?Confirmed aripiprazole 10 mg tablet 10 mg PO QDAY 02/04/23 02/17/24 buspirone 10 mg tablet 10 mg PO BID 02/04/23 02/17/24 calcium carbonate (Calcium 600) 600 mg PO DAILY 02/04/23 02/17/24 calcium phosphate,dibasic 77 1 tab PO QDAY 02/04/23 02/17/24 mg-vitamin D3 400 unit tablet fluoxetine 40 mg capsule 40 mg PO QDAY 02/04/23 02/17/24 insulin regular hum U-500 conc 500 60 unit subcut TID 02/04/23 02/17/24 unit/mL(3 mL) subcut pen (Humulin R U-500 (Conc) Insulin Kwikpen) magnesium 250 mg tablet 250 mg PO DAILY 02/04/23 02/17/24 pantoprazole 40 mg tablet,delayed 40 mg PO Q12H PRN indigestion 02/04/23 02/17/24 release spironolactone 50 mg tablet 50 mg PO QDAY 02/04/23 02/17/24 trazodone 50 mg tablet 50 mg PO DAILY 02/04/23 02/17/24 cholecalciferol (vitamin D3) 50 2,000 unit PO DAILY 02/02/24 02/17/24 mcg (2,000 unit) tablet (Vitamin D3) empagliflozin 25 mg tablet 25 mg PO DAILY 02/02/24 02/17/24 (Jardiance) gabapentin 100 mg capsule 100 mg PO TID 02/02/24 02/17/24 metformin 500 mg tablet 500 mg PO BID 02/02/24 02/17/24 Previous Rx's ?Medication ?Instructions ?Recorded amoxicillin 500 mg capsule 500 mg PO TID 10 days #30 caps 05/30/24 loratadine 5 mg-pseudoephedrine ER 1 tab PO Q12H PRN nasal congestion 05/30/24 120 mg tablet,extended #20 tabs release,12hr (Claritin-D 12 Hour) Allergies Allergy/AdvReac Type Severity Reaction Status Date / Time prednisone AdvReac Severe hyperglycem Verified 04/22/23 19:08 ia Opioid HPI Opioid Management Most Recent Opioid Data: Last Pain Scale 8 02/17/24 14:09 Review of Systems ROS Narrative A ten point review of systems is negative except as noted above. PFSH PFSH Social History Smoking status: Current every day smoker Little interest or pleasure in doing things: not at all Feeling down, depressed, or hopeless: not at all Exam Narrative Exam Narrative: Nurses note and vital signs reviewed and patient is not hypoxic. General: The patient appears well and in no apparent distress. Patient is resting comfortably on cart. Skin: Warm, dry, no pallor noted. There is no rash noted. Head: Normocephalic, atraumatic Eye: Normal conjunctiva, no drainage Ears, Nose, Mouth, and Throat: oral mucosa is moist. Nares patent. Bilateral tympanostomy tubes in place. No pharyngeal erythema or exudate. Both TMs are not well visible but appear to be somewhat swollen and erythematous. Cardiovascular: Regular Rate and Rhythm Respiratory: Patient is in no distress, no accessory muscle use, lungs are clear to auscultation, no wheezing, rales or rhonchi Back: non-tender GI: Soft and nontender Musculoskeletal: The patient has no evidence of calf tenderness, no pitting edema, symmetrical pulses noted bilaterally Neurological: A&O, normal speech Psychiatric: Cooperative Constitutional Vital Signs, click to edit/add: Last Vital Signs Temp 98.8 F 05/30/24 09:06 Pulse 86 05/30/24 09:06 Resp 18 05/30/24 09:06 BP 150/95 H 05/30/24 09:06 Pulse Ox 98 05/30/24 09:06 O2 Del Method Room Air 05/30/24 09:06 Course Vital Signs Vital signs: Vital Signs Temperature 98.8 F 05/30/24 09:06 Pulse Rate 86 05/30/24 09:06 Respiratory Rate 18 05/30/24 09:06 Blood Pressure 150/95 H 05/30/24 09:06 Pulse Oximetry 98 05/30/24 09:06 Oxygen Delivery Method Room Air 05/30/24 09:06 Temperature 98.8 F 05/30/24 09:06 Pulse Rate 86 05/30/24 09:06 Respiratory Rate 18 05/30/24 09:06 Blood Pressure 150/95 H 05/30/24 09:06 Pulse Oximetry 98 05/30/24 09:06 Oxygen Delivery Method Room Air 05/30/24 09:06 Medical Decision Making MDM Narrative Medical decision making narrative: COVID, influenza, and strep are all negative. Treatment diagnosis and follow-up were discussed with the patient. My clinical impression is that she has otitis media. Differential Diagnosis Differential Diagnosis: Otitis media, otitis externa, COVID, strep, influenza Lab Data Lab results reviewed: Yes I reviewed the patient's lab results Labs: Lab Results 05/30/24 Range/Units 09:20 Influenza Type A Ag Negative Influenza Type B Ag Negative SARS-CoV-2 Ag (CV2AG) Negative (NEGATIVE) Streptococcus Screen Negative Discharge Plan Discharge Chief Complaint: Upper Respiratory Infection Clinical Impression: Bilateral otitis media Patient Disposition: Home, Self-Care Time of Disposition Decision: 09:58 Condition: Good Mode of Transportation: Private Vehicle Prescriptions / Home Meds: New amoxicillin 500 mg capsule 500 mg PO TID 10 Days Qty: 30 0RF Claritin-D 12 Hour 5-120 mg tablet extended release 12 hr 1 tab PO Q12H PRN (Reason: nasal congestion) Qty: 20 0RF No Action aripiprazole 10 mg tablet 10 mg PO QDAY buspirone 10 mg tablet 10 mg PO BID trazodone 50 mg tablet 50 mg PO DAILY fluoxetine 40 mg capsule 40 mg PO QDAY spironolactone 50 mg tablet 50 mg PO QDAY calcium phos,dibas-vitamin D3 77-400 mg-unit tablet 1 tab PO QDAY pantoprazole 40 mg tablet,delayed release (DR/EC) 40 mg PO Q12H PRN (Reason: indigestion) magnesium 250 mg tablet 250 mg PO DAILY calcium carbonate [Calcium 600] 600 mg calcium (1,500 mg) tablet 600 mg PO DAILY Humulin R U-500 (Conc) Kwikpen 500 unit/mL (3 mL) insulin pen 60 unit SUBCUT TID Rx Instructions: with sliding scale Jardiance 25 mg tablet 25 mg PO DAILY metformin 500 mg tablet 500 mg PO BID cholecalciferol (vitamin D3) [Vitamin D3] 50 mcg (2,000 unit) tablet 2,000 unit PO DAILY gabapentin 100 mg capsule 100 mg PO TID Print Language: Cameroonian Instructions: Ear Infection (ED) Referrals: Ariane Wells [employer] 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
[2024-05-30 09:52] LABS: Internal Control Within Normal Limits; SARS-CoV-2 Ag NEGATIVE (NEGATIVE); Strep A Antigen Screen Negative
[2024-05-30 09:53] LABS: Influenza Virus A Antigen Negative; Influenza Virus B Antigen Negative; Internal Control Within Normal Limits
== END 2024-05-30 10:26 | disposition home or self-care (01) ==
PROVIDERS: Emergency Provider Emergency Medicine; PCP Nurse Practitioner
DX: H66.93 Otitis media, unspecified, bilateral (principal); Z20.822 Contact with and (suspected) exposure to COVID-19; F17.200 Nicotine dependence, unspecified, uncomplicated
CPT/HCPCS: 87070; 87804; 87811; 87880; 99283

== ENCOUNTER 2024-06-03 16:37 | Emergency (ER) | payer MEDICAID, SELFPAY ==
[2024-06-03 16:58] VITALS: BP 144/86; PULSE 75; TEMP 37; O2SAT 99; BMI 42.5
--- OUTSIDE RECORDS SUMMARY | 2024-06-03 16:59 | XMS_ITS | CCD ---
Author Organization [facility] Care Team Providers Care Hotel Supplies Salesperson Name Role Phone AICHHOLZ, THERAPY TECH ARIANE Attending Unavailable AICHHOLZ, THERAPY TECH ARIANE Admitting Unavailable AICHHOLZ, THERAPY TECH ARIANE Primary Care Unavailable JOSE EDUARDO RIVERS V Consulting Unavailable AICHHOLZ, THERAPY TECH ARIANE Consulting Unavailable TIMMIS, DR MEJIA Consulting Unavailable AICHHOLZ, THERAPY TECH ARIANE Primary Care Unavailable TIMMIS, DR MEJIA Attending Unavailable TIMMIS, DR MEJIA Admitting Unavailable MAGDI BRIGGS Consulting Unavailable PAY ., DR SWANSON Admitting Unavailable PAY ., DR SWANSON Consulting Unavailable AICHHOLZ, THERAPY TECH ARIANE Primary Care Unavailable PAY ., DR SWANSON Attending Unavailable AICHHOLZ, THERAPY TECH ARIANE Primary Care Unavailable KAITLIN, DR KLAUDIA Kay Attending Unavailabl e KAITLIN, DR KLAUDIA Kay Admitting Unavailabl e KAITLIN, DR KLAUDIA Kay Consulting Unavailabl e JEYSON BLANTON Consulting Unavailable AICHHOLZ, THERAPY TECH ARIANE Primary Care Unavailable GABINO MUÑOZ Attending Unavailable GABINO MUÑOZ Admitting Unavailable AICHHOLZ, THERAPY TECH ARIANE Primary Care Unavailable JOSE EDUARDO RIVERS V Consulting Unavailable JEYSON BLANTON Consulting Unavailable GABINO MUÑOZ Consulting Unavailable PAY ., DR SWANSON Admitting Unavailable PAY ., DR SWANSON Consulting Unavailable AICHHOLZ, THERAPY TECH ARIANE Primary Care Unavailable PAY ., DR SWANSON Attending Unavailable GERALDINE LAZAR Consulting Unavailable CORDELL ., DR DEL RIO Attending Unavailable HAY ., DR DEL RIO Admitting Unavailable AICHHOLZ, THERAPY TECH ARIANE Primary Care Unavailable HAY ., DR DEL RIO Consulting Unavailable GABINO MUÑOZ Attending Unavailable GLEN .GABINO Admitting Unavailable AICHHOLZ, THERAPY TECH ARIANE Primary Care Unavailable DONTRELL DIAZ Consulting Unavailable GABINO MUÑOZ Consulting Unavailable JOSE EDUARDO RHODES Consulting Unavailable AICHHOLZ, THERAPY TECH ARIANE Referring Unavailable AICHHOLZ, THERAPY TECH ARIANE Primary Care Unavailable ROYA MIRZAD Attending Unavailable YUKI, AHMAD Admitting Unavailable YUKI, AHMAD Consulting Unavailable AICHHOLZ, THERAPY TECH ARIANE Consulting Unavailable AICHHOLZ, THERAPY TECH ARIANE Attending Unavailable AICHHOLZ, THERAPY TECH ARIANE Admitting Unavailable AICHHOLZ, THERAPY TECH ARIANE Primary Care Unavailable HAYDE VAN Consulting Unavailable AICHHOLZ, THERAPY TECH ARIANE Consulting Unavailable AICHHOLZ, THERAPY TECH ARIANE Attending Unavailable AICHHOLZ, THERAPY TECH ARIANE Admitting Unavailable AICHHOLZ, THERAPY TECH ARIANE Primary Care Unavailable AMINATA BOURGEOIS Attending Unavailable AMINATA BOURGEOIS Admitting Unavailable JEYSON BLANTON Consulting Unavailable AICHHOLZ, THERAPY TECH ARIANE Primary Care Unavailable AMINATA BOURGEOIS Consulting Unavailable AICHHOLZ, THERAPY TECH ARIANE Primary Care Unavailable TIMMIJagjit, DR MEJIA Consulting Unavailable TIMMIS, DR MEJIA Attending Unavailable TIMMIJagjit, DR MEJIA Admitting Unavailable ELIDA COWAN Consulting Unava ilable AICHHOLZ, ARIANE J Primary Care Physician [phone] Riky Le Attending Unavailable Jose LEUNG, Rush Reid Attending Unavailable AICHHOLZ, ARIANE Attending Unavailable AICHHOLZ, ARIANE Attending Unavailable AICHHOLZ, ARIANE Attending Unavailable JOANN MARSHALL Attending Unavailable AICHHOLZ, ARIANE Referring Unavailable JOANN MARSHALL Attending Unavailable Allergies Allergy Classification Reported Allergen(s) Allergy Type Date of Onset Reaction(s) Facility (2 sources) predniSONE; Translations: [predniSONE] Drug Allergy 0 [facility] Repository (1 source) predniSONE; Translations: [prednisone] Drug Allergy 0 Slurred speech (finding), Tremor (finding) [facility] [place] Medications Current Medications Medication Drug Class(es) Dates [...] pain, # 20 tab(s), Refills(s) 0, Pharmacy: [facility] 1155, 160, cm, 11/27/23 12:59:00 EDT, [...] 11-30-2019 Episodic Other aftercare (1 source) 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 Consent for Treatmenton 10-31 Consent for Treatment [id number]#1.00TIFF Normal [facility] Discharge Instructionson Discharge Instructions [id number]#1.00TIFF Normal [facility] ED Clinical Summaryon 2023 ED Clinical Summary [place] [id number] ED Clinical Summary Person Information Name: MARILIA OSBORNE [facility] Age: 33 Years : 1990 Sex: Female Language: Kinyarwanda PCP: ARIANE WELLS CNP Marital Status: Visit [...] 11/27/2023 15:37:23 11/27/2023 15:37:23 11/27/2023 15:37:23 ADDRESS: [address] [place] [id number] PHYS DOC NOTES: MEDICAL INFORMATION: Prescriptions Given: [facility], [address] [place], [place] [id number], [phone] methocarbamol (Robaxin-750 oral tablet) 2 Tablets By [...] Follow up: With: Address: When: [place] [address] Business (1) In 3 days 11/30/2023 DIAGNOSIS: Pain in shoulder Normal [facility] ED Note-Physicianon 11-27-19 ED Note-Physician Basic [...] Kentrell In 3 days 11/30/2023 EDT [address] [phone] (1) Additional Instructions: Patient Education Shoulder [...] made to ensure accuracy, however, inadvertently computerized needle grader mistakes may be present. Appropriate healthcare PPE [...] (Concentrated) Roma (more content not included)... Normal [facility] Comment on above: Result Comment: Elec [...] strengthen the arm. General instructions ? Take snth-uaz-ywwxpxk and prescription medicines only as told by [...] provider. Document Revised: 05/03/2022 Document Reviewed: 05/03/2022 [employer] Patient Education ? 2022 [employer] Normal [facility] ED Patient Summaryon 024 ED Patient Summary (Inserted Image. Isadora ble to display) [place] [id number] Patient Discharge Instructions Person Information Name: MARILIA OSBORNE Age: 33 Years Arrival Date: 11/27/2023 12:52:48 Discharge Diagnosis: Pain in shoulder Primary Care Physician: ARIANE WELLS CNP Provider Information Primary Provider: Riky Le DO Advanced Burn Nurse:Steven Cardenas PA-C The exam and treatment you received in the Emergency Department were for an urgent problem and are not intended as complete care. It is important that you follow up with a doctor, nurse practitioner, or physician?s assistant vice president for ongoing care. If your symptoms become worse or you do not improve as expected and you are unable to reach your usual health care provider, you should return to the Emergency Department. We are available 24 hours a day. MARILIA OSBORNE has been given the following list of patient education materials, prescriptions and follow-up instructions: Follow-up Instructions: With: Address: When: [place] [address] [employer] (1) In 3 days 11/30/2023 In the event that this physician does not participate in your insurance network, please consult with your insurance company to find a nearby participating provider. Patient Education Materials: Shoulder Pain A MESSAGE TO ALL PATIENTS REGARDING OPIOIDS PRESCRIPTION OPIOIDS: WHAT YOU NEED TO KNOW Prescription opioids can be used to help relieve sxpyakgv-fs-rrktay pain and are often prescribed following a [...] be struggling with addiction, tell your health pediatric acute care unit nurse and ask for guidance or call [facility]?S National Helpline at 0-946-710-RQSB. v Source: Department of a (more content not included)... [facility] Formson 11-27-2023 Forms [id number]#[id number] [facility] XR Shoulder Complete Righton 11-27-2023 XR [...] FINAL REPORT Dictated: 11/27/2023 3:07 pm Naresh Corw MD Signed (Electronic Signature): 11/27/2023 3:07 pm Signed by: Naresh Crow MD Transcribed by: MARTA Technologist: EDGAR Technical Comments Radiation Dose: Ka,r in mGy = na DAP = na Normal [facility] CBC AUTO DIFFon 12-11-2022 BASO # 0.1 103/ul Normal 0.0-0.1 [facility] Comment on above: Performed By: #### P REGU #### [facility] [address] [address] [address] Jaz Barajas Basophils/100 WBC (Bld) 0.8 % Normal 0.2-2.0 [facility] Comment on above: Performed By: #### P REGU #### [facility] [address] [address] [address] Jaz Barajas EO # 0.2 103/ul Normal 0.0-0.7 [facility] Comment on above: Performed By: #### P REGU #### [facility] [address] [address] [address] Jaz Barajas Eosinophils/100 WBC (Bld) 2.1 % Normal 0.9-7.0 [facility] Comment on above: Performed By: #### P REGU #### [facility] [address] [address] [address] Jaz Barajas Erythrocyte distribution width (RBC) [Ratio] 13.0 % Normal 11.0-15.0 [facility] Comment on above: Performed By: #### P REGU #### [facility] [address] [address] [address] Jaz Barajas Hematocrit (Bld) [Volume fraction] 41.2 % Normal 36.0-48.0 [facility] Comment on above: Performed By: #### P REGU #### [facility] [address] [address] [address] Jaz Barajas Hemoglobin (Bld) [Mass/Vol] 13.7 g/dL Normal 12.0-16.0 [facility] Comment on above: Performed By: #### P REGU #### [facility] [address] [address] [address] Jaz Barajas IG # 0.02 10e3/ul Normal 0.00-0.03 [facility] Comment on above: Performed By: #### P REGU #### [facility] [address] [place] [address] Dr. Jaz Barajas IG % 0.2 % Normal 0.0-0.5 [facility] Comment on above: Performed By: #### P REGU #### [facility] [address] [place] [address] Dr. Jaz Barajas LYMPH # 3.3 103/ul Normal 1.2-3.8 [facility] Comment on above: Performed By: #### P REGU #### [facility] [address] [place] [address] Dr. Jaz Barajas Lymphocytes/100 WBC (Bld) 34.8 % Normal 20.5-60.0 [facility] Comment on above: Performed By: #### P REGU #### [facility] [address] [place] [address] Dr. Jaz Barajas MANUAL DIFF REQ NO Normal [facility] Comment on above: Performed By: #### P REGU #### [facility] [address] [place] [address] Dr. Jaz Barajas MCH (RBC) [Entitic mass] 26.6 pg Critically low 26.7-34.0 [facility] Comment on above: Performed By: #### P REGU #### [facility] [address] [place] [address] Dr. Jaz Barajas MCHC (RBC) [Mass/Vol] 33.3 g/dL Normal 29.9-35.2 [facility] Comment on above: Performed By: #### P REGU #### [facility] [address] [address] [address] Jaz Barajas MCV (RBC) [Entitic vol] 79.8 fL Critically low 81.0-99.0 [facility] Comment on above: Performed By: #### P REGU #### [facility] [address] [place] [address] Dr. Jaz Barajas MONO # 0.7 103/ul Normal 0.3-0.8 [facility] Comment on above: Performed By: #### P REGU #### [facility] [address] [place] [address] Dr. Jaz Barajas Monocytes/100 WBC (Bld) 7.3 % Normal 1.7-12.0 [facility] Comment on above: Performed By: #### P REGU #### [facility] [address] [place] [address] Dr. Jaz Barajas NEUT # 5.3 103/ul Normal 1.4-6.5 [facility] Comment on above: Performed By: #### P REGU #### [facility] [address] [place] [address] Dr. Jaz Barajas Neutrophils/100 WBC (Bld) 54.8 % Normal 43.0-75.0 [facility] Comment on above: Performed By: #### P REGU #### [facility] [address] [place] [address] Dr. Jaz Barajas Platelet mean volume (Bld) [Entitic vol] 10.7 fL Normal 9.5-13.5 [facility] Comment on above: Performed By: #### P REGU #### [facility] [address] [place] [address] Dr. Jaz Barajas PLT 284 103/ul Normal 150-450 [facility] Comment on above: Performed By: #### P REGU #### [facility] [address] [place] [address] Dr. Jaz Barajas RBC 5.16 106/ul Normal 4.20-5.40 [facility] Comment on above: Performed By: #### P REGU #### [facility] [address] [place], [place] [id number] Dr. Jaz Barajas WBC 9.6 103/ul Normal 4.0-11.0 [facility] Comment on above: Performed By: #### P REGU #### [facility] [address] [address] [address] Jaz Barajas FREE T4on 12-11-2022 Free T4 [Mass/Vol] 1.10 ng/dL Normal 0.76-1.46 [facility] Comment on above: Performed By: #### P ROGLCM #### [facility] [address] [address] [address] Jaz Barajas LIPID PROFILEon 12-11-2022 CHOL-HDL RATIO NORM SEE BELOW Normal [facility] Comment on above: Result Comment: 3.3 - 4.4 LOW RISK 4.4 - 7.1 AVERAGE RISK 7.1 - 11.0 MODERATE RISK >11.0 HIGH RISK Performed By: #### L IPID, TSH, CMP ####[facility] [address] [place] [address]DrPratibha Barajas Cholesterol [Mass/Vol] 168 mg/dL Normal <=200 [facility] Comment on above: Performed By: #### L IPID, TSH, CMP ####[facility] [address] [place] [address]DrPratibha Barajas Cholesterol in HDL [Mass/Vol] 32 mg/dL Critically low 40-60 [facility] Comment on above: Performed By: #### L IPID, TSH, CMP ####[facility] [address] [place] [id number] Barajas Cholesterol in LDL [Mass/Vol] 121.8 mg/dL Normal [facility] Comment on above: Performed By: #### L IPID, TSH, CMP ####[facility] [address] [place] [id number] Barajas Cholesterol.total/ Cholesterol in HDL [Mass ratio] 5.3 {ratio} Normal [facility] Comment on above: Performed By: #### L IPID, TSH, CMP ####[facility] [address] [place] [id number]. Jaz Barajas HDL NORMAL > or = 60 mg/dl - LO W CARDIOVASCULAR RISK <40 mg/dl - HIGH CARDIOVASCULAR RISK Normal [facility] Comment on above: Performed By: #### L IPID, TSH, CMP ####[facility] [address] [place] [address]Dr. Jaz Barajas LDL CALC NORMAL SEE BELOW Normal [facility] Comment on above: Result Comment: <100 mg/dl OPTIMAL 100 - 129 mg/dl NEAR OR ABOVE OPTIMAL 130 - 159 mg/dl BORDERLINE HIGH 160 - 189 mg/dl HIGH >190 mg/dl VERY HIGH Performed By: #### L IPID, TSH, CMP ####[facility] [address] [place] [address]DrPratibha Barajas Triglyceride [Mass/Vol] 71 mg/dL Normal <=150 [facility] Comment on above: Performed By: #### L IPID, TSH, CMP ####[facility] [address] [place] [address]Dr. Jaz Barajas VLDL CALC 14.2 mg/dL Normal [facility] Comment on above: Performed By: #### L IPID, TSH, CMP ####[facility] [address] [place] [address]Dr. Jaz Barajas MICROALBUMIN, RAND URon 11-30 mALB <1.3 Normal <=30.0 [facility] Comment on above: Performed By: #### P REGU #### [facility] [address] [address] [address] Jaz Barajas PROF 14(COMP METB)on 023 Albumin [Mass/Vol] 3.7 g/dL Normal 3.4-5.0 [facility] Comment on above: Performed By: #### L IPID, TSH, CMP ####[facility] [address] [place] [address]DrPratibha Barajas Albumin/Globulin [Mass ratio] 0.8 {ratio} Normal [facility] Comment on above: Performed By: #### L IPID, TSH, CMP ####[facility] [address] [place] [address]Dr. Jaz Barajas ALP [Catalytic activity/Vol] 90 U/L Normal 46-116 [facility] Comment on above: Performed By: #### L IPID, TSH, CMP ####[facility] [address] [place], [place] [address]Dr. Jaz Barajas ALT [Catalytic activity/Vol] 106 U/L Critically high 14-59 [facility] Comment on above: Performed By: #### L IPID, TSH, CMP ####[facility] [address] [place], [place] [address]Dr. Jaz Barajas Anion gap [Moles/Vol] 12.5 mmol/L Normal [facility] Comment on above: Performed By: #### L IPID, TSH, CMP ####[facility] [address] [place], [place] [address]Dr. Jaz Barajas AST [Catalytic activity/Vol] 43 U/L Critically high 15-37 [facility] Comment on above: Performed By: #### L IPID, TSH, CMP ####[facility] [address] [place], [place] [address]Dr. Jaz Barajas Bilirubin [Mass/Vol] 0.4 mg/dL Normal 0.2-1.0 [facility] Comment on above: Performed By: #### L IPID, TSH, CMP ####[facility] [address] [place], [place] [address]Dr. Jaz Barajas Calcium [Mass/Vol] 9.0 mg/dL Normal 8.5-10.1 [facility] Comment on above: Performed By: #### L IPID, TSH, CMP ####[facility] [address] [place], [place] [address]Dr. Jaz Barajas Chloride [Moles/Vol] 104 mmol/L Normal 98-107 [facility] Comment on above: Performed By: #### L IPID, TSH, CMP ####[facility] [address] [place], [place] [address]Dr. Jaz Barajas CO2 [Moles/Vol] 25.8 mmol/L Normal 21.0-32.0 [facility] Comment on above: Performed By: #### L IPID, TSH, CMP ####[facility] [address] [place] [address]Dr. Jaz Barajas Creatinine [Mass/Vol] 0.76 mg/dL Normal 0.55-1.02 [facility] Comment on above: Performed By: #### L IPID, TSH, CMP ####[facility] [address] [place] [address]Dr. Jaz Barajas EGFR-AF CYMRAES >60 Normal >=60 [facility] Comment on above: Performed By: #### L IPID, TSH, CMP ####[facility] [address] [place], [place] [address]Dr. Jaz Barajas EGFR-NON AF CYMRAES >60 Normal >=60 [facility] Comment on above: Performed By: #### L IPID, TSH, CMP ####[facility] [address] [place], [place] [address]Dr. Jaz Karl Globulin (S) [Mass/Vol] 4.4 g/dL Normal [facility] Comment on above: Performed By: #### L IPID, TSH, CMP ####[facility] [address] [place], [place] [address]Dr. Jaz Barajas Glucose [Mass/Vol] 228 mg/dL Critically high 74-[address] [facility] Comment on above: Performed By: #### L IPID, TSH, CMP ####[facility] [address] [place], [place] [address]Dr. Jaz Barajas Potassium [Moles/Vol] 4.3 mmol/L Normal 3.5-5.1 [facility] Comment on above: Performed By: #### L IPID, TSH, CMP ####[facility] [address] [place], [place] [address]Dr. Jaz Barajas Protein [Mass/Vol] 8.1 g/dL Normal 6.4-8.2 [facility] Comment on above: Performed By: #### L IPID, TSH, CMP ####[facility] [address] [place], [place] [address]Dr. Jaz Barajas Sodium [Moles/Vol] 138 mmol/L Normal 136-145 [facility] Comment on above: Performed By: #### L IPID, TSH, CMP ####[facility] [address] [place] [address]Dr. Jaz Barajas Urea nitrogen [Mass/Vol] 21.0 mg/dL Critically high 7.0-18.0 [facility] Comment on above: Performed By: #### L IPID, TSH, CMP ####[facility] [address] [place] [address]Dr. Jaz Barajas Urea nitrogen/Creatinin e [Mass ratio] 27.6 mg/mg Normal [facility] Comment on above: Performed By: #### L IPID TSH, CMP ####[facility] [address] [place] [address]Dr. Jaz Barajas TSHon 12-11-2022 TSH 3.602 uIU/mL Normal 0.358-3.740 [facility] Comment on above: Performed By: #### L IPEFREN TSH, CMP ####[facility] [address] [place], [place] [address]Dr. Jaz Barajas UA RANDOM W/MICROSCOPICon BACTERIA NONE SEEN Normal NONE SEEN [facility] Comment on above: Performed By: #### U AMIC ####[facility] [address] [place], [place] [address]Dr. Jaz Barajas Bilirubin Ql (U) Negative Normal NEGATIVE [facility] Comment on above: Performed By: #### U AMIC ####[facility] [address] [place], [place] [address]Dr. Jaz Barajas CAST NONE SEEN Normal NONE SEEN [facility] Comment on above: Performed By: #### U AMIC ####[facility] [address] [place], [place] [address]Dr. Jaz Barajas Clarity (U) CLEAR Normal CLEAR [facility] Comment on above: Performed By: #### U AMIC ####[facility] [address] [place], [place] [address]Dr. Jaz Barajas Color (U) LT. YELLOW Normal YELLOW [facility] Comment on above: Performed By: #### U AMIC ####[facility] [address] [place] [address]Dr. Jaz Barajas Crystals LM Nom (Urine sed) NONE SEEN Normal NONE SEEN [facility] Comment on above: Performed By: #### U AMIC ####[facility] [address] [place] [address]Dr. Jaz Barajas Epithelial cells LM Ql (Urine sed) RARE Normal NONE SEEN /RARE [facility] Comment on above: Performed By: #### U AMIC ####[facility] [address] [place] [address]Dr. Jaz Barajas Glucose Ql (U) >1000 Abnormal NEGATIVE [facility] Comment on above: Performed By: #### U AMIC ####[facility] [address] [place], [place] [address]Dr. Jaz Barajas Hemoglobin Ql (U) Negative Normal NEGATIVE [facility] Comment on above: Performed By: #### U AMIC ####[facility] [address] [place], [place] [address]Dr. Jaz Barajas Ketones Ql (U) Negative Normal NEGATIVE [facility] Comment on above: Performed By: #### U AMIC ####[facility] [address] [place] [address]Dr. Jaz Barajas LEUKOCYTES Negative Normal NEGATIVE [facility] Comment on above: Performed By: #### U AMIC ####[facility] [address] [place] [address]Dr. Jaz Barajas MUCOUS NONE SEEN Normal NONE SEEN [facility] Comment on above: Performed By: #### U AMIC ####[facility] [address] [place], [place] [address]Dr. Jaz Barajas Nitrite Ql (U) Negative Normal NEGATIVE [facility] Comment on above: Performed By: #### U AMIC ####[facility] [address] [place], [place] [address]Dr. Jaz Barajas pH (U) 6.0 [pH] Normal 5-9 [facility] Comment on above: Performed By: #### U AMIC ####[facility] [address] [place] [id number]. Jaz Barajas RBC NONE SEEN Abnormal 0-2 [facility] Comment on above: Performed By: #### U AMIC ####[facility] [address] [place] [id number]. Jaz Barajas SPEC GRAVITY 1.020 Normal 1.005-<=1.02 5 [facility] Comment on above: Performed By: #### U AMIC ####[facility] [address] [place] [id number]. Jaz Barajas UA PROTEIN Negative Normal NEGATIVE/ TRACE [facility] Comment on above: Performed By: #### U AMIC ####[facility] [address] [place] [address]Dr. Jaz Barajas Urobilinogen Qn (U) 0.2 {Oxana'U}/dL Normal 0.2 - 1.0 [facility] Comment on above: Performed By: #### U AMIC ####[facility] [address] [place] [id number]. Jaz Barajas WBC 0-2 Abnormal NONE SEEN [facility] Comment on above: Performed By: #### U AMIC ####[facility] [address] [place] [id number] Barajas VITAMIN D 25 OHon 12-11-2022 VIT D 25-OH 30.9 ng/mL Normal [facility] Comment on above: Performed By: #### P VALENTINELCM #### [facility] [address] [address] [address] Jaz Barajas VIT D RANGES SEE BELOW Normal [facility] Comment on above: Result Comment: <20 ng/mL Vit D deficient 20 - <30 ng/mL Vit D insufficient 30 - 100 ng/mL Vit D sufficient >100 ng/mL Potential Toxicity Performed By: #### P DUSTINM #### [facility] [address] [address] [address] Jaz Barajas CBC AUTO DIFFon 11-15-2022 BASO # 0.1 103/ul Normal 0.0-0.1 [facility] Comment on above: Performed By: #### P ROGLCM #### [facility] [address] [place] [address] Dr. Jaz Barajas Basophils/100 WBC (Bld) 0.6 % Normal 0.2-2.0 [facility] Comment on above: Performed By: #### P ROGLCM #### [facility] [address] [place] [address] Dr. Jaz Barajas EO # 0.2 103/ul Normal 0.0-0.7 [facility] Comment on above: Performed By: #### P ROGLCM #### [facility] [address] [place] [address] Dr. Jaz Barajas Eosinophils/100 WBC (Bld) 2.0 % Normal 0.9-7.0 [facility] Comment on above: Performed By: #### P ROGLCM #### [facility] [address] [place] [address] Dr. Jaz Barajas Erythrocyte distribution width (RBC) [Ratio] 13.3 % Normal 11.0-15.0 [facility] Comment on above: Performed By: #### P ROGLCM #### [facility] [address] [place] [address] Dr. Jaz Barajas Hematocrit (Bld) [Volume fraction] 40.4 % Normal 36.0-48.0 [facility] Comment on above: Performed By: #### P ROGLCM #### [facility] [address] [place] [address] Dr. Jaz Barajas Hemoglobin (Bld) [Mass/Vol] 13.5 g/dL Normal 12.0-16.0 [facility] Comment on above: Performed By: #### P ROGLCM #### [facility] [address] [place] [address] Dr. Jaz Barajas IG # 0.03 10e3/ul Normal 0.00-0.03 [facility] Comment on above: Performed By: #### P ROGLCM #### [facility] [address] [place] [address] Dr. Jaz Barajas IG % 0.3 % Normal 0.0-0.5 [facility] Comment on above: Performed By: #### P ROGLCM #### [facility] [address] [address] [address] Jaz Barajas LYMPH # 3.3 103/ul Normal 1.2-3.8 [facility] Comment on above: Performed By: #### P ROGLCM #### [facility] [address] [address] [address] Jaz Barajas Lymphocytes/100 WBC (Bld) 30.7 % Normal 20.5-60.0 [facility] Comment on above: Performed By: #### P ROGLCM #### [facility] [address] [place] [address] Dr. Jaz Barajas MANUAL DIFF REQ NO Normal [facility] Comment on above: Performed By: #### P VALENTINELCM #### [facility] [address] [place] [address] Dr. Jaz Barajas MCH (RBC) [Entitic mass] 26.6 pg Critically low 26.7-34.0 [facility] Comment on above: Performed By: #### P ROGLCM #### [facility] [address] [place] [address] Dr. Jaz Barajas MCHC (RBC) [Mass/Vol] 33.4 g/dL Normal 29.9-35.2 [facility] Comment on above: Performed By: #### P ROGLCM #### [facility] [address] [place] [address] Dr. Jaz Barajas MCV (RBC) [Entitic vol] 79.7 fL Critically low 81.0-99.0 [facility] Comment on above: Performed By: #### P ROGLCM #### [facility] [address] [place] [address] Dr. Jaz Barajas MONO # 0.8 103/ul Normal 0.3-0.8 [facility] Comment on above: Performed By: #### P ROGLCM #### [facility] [address] [place] [address] Dr. Jaz Barajas Monocytes/100 WBC (Bld) 7.4 % Normal 1.7-12.0 [facility] Comment on above: Performed By: #### P ROGLCM #### [facility] [address] [place] [address] Dr. Jaz Barajas NEUT # 6.3 103/ul Normal 1.4-6.5 [facility] Comment on above: Performed By: #### P ROGLCM #### [facility] [address] [place] [address] Dr. Jaz Barajas Neutrophils/100 WBC (Bld) 59.0 % Normal 43.0-75.0 [facility] Comment on above: Performed By: #### P VALENTINELCM #### [facility] [address] [place] [address] Dr. Jaz Barajas Platelet mean volume (Bld) [Entitic vol] 10.7 fL Normal 9.5-13.5 [facility] Comment on above: Performed By: #### P ROGLCM #### [facility] [address] [place] [address] Dr. Jaz Barajas PLT 326 103/ul Normal 150-450 [facility] Comment on above: Performed By: #### P ROGLCM #### [facility] [address] [place] [address] Dr. Jaz Barajas RBC 5.07 106/ul Normal 4.20-5.40 [facility] Comment on above: Performed By: #### P ROGLCM #### [facility] [address] [place] [address] Dr. Jaz Barajas WBC 10.7 103/ul Normal 4.0-11.0 [facility] Comment on above: Performed By: #### P ROGLCM #### [facility] [address] [place] [address] ABD/PELV W CONon [...] GERALDINE LAZAR Date: 2022-11-15 09:13 Normal [facility] ER URINE PROFILEon 3 Bilirubin Ql (U) Negative Normal NEGATIVE [facility] Comment on above: Performed By: #### P ROGLCM #### [facility] [address] [place] [address] Dr. Jaz Barajas Clarity (U) CLEAR Normal CLEAR [facility] Comment on above: Performed By: #### P ROGLCM #### [facility] [address] [place] [address] Dr. Jaz Barajas Color (U) LT. YELLOW Normal YELLOW [facility] Comment on above: Performed By: #### P ROGLCM #### [facility] [address] [place] [address] Dr. Jaz Barajas ERUAHD A micrscopic examina tion will be performed if indicated. Normal [facility] Comment on above: Performed By: #### P ROGLCM #### [facility] [address] [address] [address] Jaz Barajas Glucose Ql (U) 1000 mg/dl Abnormal NEGATIVE [facility] Comment on above: Performed By: #### P ROGLCM #### [facility] [address] [place] [address] Dr. Jaz Barajas Hemoglobin Ql (U) Negative Normal NEGATIVE [facility] Comment on above: Performed By: #### P ROGLCM #### [facility] [address] [address] [address] Jaz Barajas Ketones Ql (U) Negative Normal NEGATIVE [facility] Comment on above: Performed By: #### P ROGLCM #### [facility] [address] [place] [address] Dr. Jaz Barajas LEUKOCYTES Negative Normal NEGATIVE [facility] Comment on above: Performed By: #### P ROGLCM #### [facility] [address] [place] [address] Dr. Jaz Barajas Nitrite Ql (U) Negative Normal NEGATIVE [facility] Comment on above: Performed By: #### P ROGLCM #### [facility] [address] [place] [address] Dr. Jaz Barajas pH (U) 6.0 [pH] Normal 5-9 [facility] Comment on above: Performed By: #### P ROGLCM #### [facility] [address] [place] [address] Dr. Jaz Barajas SPEC GRAVITY 1.015 Normal 1.005-<=1.02 5 [facility] Comment on above: Performed By: #### P ROGLCM #### [facility] [address] [place] [address] Dr. Jaz Barajas UA PROTEIN Negative Normal NEGATIVE/ TRACE [facility] Comment on above: Performed By: #### P ROGLCM #### [facility] [address] [place] [address] Dr. Jaz Barajas UR MICRO IND NOT INDICATED Normal [facility] Comment on above: Performed By: #### P ROGLCM #### [facility] [address] [place] [address] Dr. Jaz Barajas Urobilinogen Qn (U) 0.2 {Oxana'U}/dL Normal 0.2 - 1.0 [facility] Comment on above: Performed By: #### P ROGLCM #### [facility] [address] [address] [address] Jaz Barajas LIPASEon 11-15-2022 Lipase [Catalytic activity/Vol] 73.0 U/L Normal 73.0-393.0 [facility] Comment on above: Performed By: #### P REGU #### [facility] [address] [address] [address] Jaz Barajas URon 11-15-2022 , QUAL Negative Normal NEGATIVE [facility] Comment on above: Performed By: #### E RUR, PREGU ####[facility] [address] [address]Dr. Jaz Barajas PROF 14(COMP METB)on 023 Albumin [Mass/Vol] 3.6 g/dL Normal 3.4-5.0 [facility] Comment on above: Performed By: #### P REGU #### [facility] [address] [address] [address] Jaz Barajas Albumin/Globulin [Mass ratio] 0.9 {ratio} Normal [facility] Comment on above: Performed By: #### P REGU #### [facility] [address] [address] [address] Jaz Barajas ALP [Catalytic activity/Vol] 98 U/L Normal 46-116 [facility] Comment on above: Performed By: #### P REGU #### [facility] [address] [address] [address] Jaz Barajas ALT [Catalytic activity/Vol] 138 U/L Critically high 14-59 [facility] Comment on above: Performed By: #### P REGU #### [facility] [address] [address] [address] Jaz Barajas Anion gap [Moles/Vol] 13.4 mmol/L Normal [facility] Comment on above: Performed By: #### P REGU #### [facility] [address] [address] [address] Jaz Barajas AST [Catalytic activity/Vol] 61 U/L Critically high 15-37 [facility] Comment on above: Performed By: #### P REGU #### [facility] [address] [address] [address] Jaz Barajas Bilirubin [Mass/Vol] 0.2 mg/dL Normal 0.2-1.0 [facility] Comment on above: Performed By: #### P REGU #### [facility] [address] [address] [address] Jaz Barajas Calcium [Mass/Vol] 9.4 mg/dL Normal 8.5-10.1 [facility] Comment on above: Performed By: #### P REGU #### [facility] [address] [place] [address] Dr. Jaz Barajas Chloride [Moles/Vol] 104 mmol/L Normal 98-107 [facility] Comment on above: Performed By: #### P REGU #### [facility] [address] [address] [address] Jaz Barajas CO2 [Moles/Vol] 24.7 mmol/L Normal 21.0-32.0 [facility] Comment on above: Performed By: #### P REGU #### [facility] [address] [address] [address] Jaz Barajas Creatinine [Mass/Vol] 0.69 mg/dL Normal 0.55-1.02 [facility] Comment on above: Performed By: #### P REGU #### [facility] [address] [address] [address] Jaz Barajas EGFR-AF CYMRAES >60 Normal >=60 [facility] Comment on above: Performed By: #### P REGU #### [facility] [address] [address] [address] Jaz Barajas EGFR-NON AF CYMRAES >60 Normal >=60 [facility] Comment on above: Performed By: #### P REGU #### [facility] [address] [address] [address] Jaz Barajas Globulin (S) [Mass/Vol] 4.2 g/dL Normal [facility] Comment on above: Performed By: #### P REGU #### [facility] [address] [address] [address] Jaz Barajas Glucose [Mass/Vol] 339 mg/dL Critically high 74-[address] [facility] Comment on above: Performed By: #### P REGU #### [facility] [address] [address] [address] Jaz Barajas Potassium [Moles/Vol] 4.1 mmol/L Normal 3.5-5.1 [facility] Comment on above: Performed By: #### P REGU #### [facility] [address] [place] [address] Dr. Jaz Barajas Protein [Mass/Vol] 7.8 g/dL Normal 6.4-8.2 [facility] Comment on above: Performed By: #### P REGU #### [facility] [address] [place] [address] Dr. Jaz Barajas Sodium [Moles/Vol] 138 mmol/L Normal 136-145 [facility] Comment on above: Performed By: #### P REGU #### [facility] [address] [place] [address] Dr. Jaz Barajas Urea nitrogen [Mass/Vol] 17.0 mg/dL Normal 7.0-18.0 [facility] Comment on above: Performed By: #### P REGU #### [facility] [address] [place] [address] Dr. Jaz Barajas Urea nitrogen/Creatinin e [Mass ratio] 24.6 mg/mg Normal [facility] Comment on above: Performed By: #### P REGU #### [facility] [address] [place] [address] Dr. Jaz Barajas CULTURE WOUNDon 11-13-2022 CULTURE [...] F Tetracycline >=16 R F Normal [facility] Comment on above: Performed By: #### W OUNDCX ####[facility] [address] [place], [place] [address]OgDr. Jaz Barajas Covid-19 PCR (CVDTB)on 08-01 SARS-CoV-2 (COVID-19) RNA REANNA+probe Ql (Unsp spec) Not detected Normal NOT DETECTED [facility] Comment on above: Result Comment: This test is not yet approved or cleared by the [place] FDA. When there are no FDA-approved or cleared tests available, and other criteria are met, FDA can make tests available under an emergency access mechanism called an Emergency Use Authorization (EUA). The EUA for this test is supported by the [place] of Health and Human Service's (HHS's) declaration [...] SARS-CoV-2. Performed By: #### P ROGLCM #### [facility] [address], [place] [address] Dr. Jaz Barajas INFLUENZA A AND B AGon 08-18 INFLUANEGH SEE BELOW Normal [facility] Comment on above: Result Comment: Nega tive for Flu A protein angiten. Infection due to Flu A cannot be ruled out. Flu A angiten in the sample may be below the detection limit of the test. Performed By: #### P ROGLCM #### [facility] [address] [address] [address] Jaz Barajas [facility] SEE BELOW Normal [facility] Comment on above: Result Comment: Nega tive for Flu B protein antigen. Infection due to Flu B cannot be ruled out. Flu B antigen in the sample may be below the detection limit of the test. Performed By: #### P ROGLCM #### [facility] [address] [address] [address] Jaz Barajas INFLUENZA A AG Negative Normal NEGATIVE SEE COMMENT [facility] Comment on above: Performed By: #### P ROGLCM #### [facility] [address] [place] [address] Dr. Jaz Barajas INFLUENZA B AG Negative Normal NEGATIVE SEE COMMENT [facility] Comment on above: Performed By: #### P ROGLCM #### [facility] [address] [place] [address] Dr. Jaz Barajas INTERNAL CONTROLS Within Normal Limits Normal Wi thin Normal Limits [facility] Comment on above: Performed By: #### P ROGLCM #### [facility] [address] [place] [address] Dr. Jaz Barajas POINT OF CARE GLUCOSEon - Glucose [Mass/Vol] 310 mg/dL Critically high 74-[address] [facility] Comment on above: Performed By: #### P ROGLCM #### [facility] [address] [place] [address] Dr. Jaz Barajas XR CHEST 1 Von [...] EDUARDO RHODES Date: 2022-08-18 15:33 Normal [facility] PREG HCG QUALon 05-14-2022 , QUAL Negative Normal NEGATIVE [facility] Comment on above: Performed By: #### P REG ####[facility] [address] [place] [id number]. Jaz Barajas CBC AUTO DIFFon 05-08-2022 BASO # 0.1 103/ul Normal 0.0-0.1 [facility] Comment on above: Performed By: #### C BC ####[facility] [address] [place] [id number]. Hannahisela Barajas Basophils/100 WBC (Bld) 0.6 % Normal 0.2-2.0 [facility] Comment on above: Performed By: #### C BC ####[facility] [address] [place], [place] [address]Dr. Hannahisela Barajas EO # 0.2 103/ul Normal 0.0-0.7 [facility] Comment on above: Performed By: #### C BC ####[facility] [address] [place], [place] [address]Dr. Hannahisela Barajas Eosinophils/100 WBC (Bld) 1.5 % Normal 0.9-7.0 [facility] Comment on above: Performed By: #### C BC ####[facility] [address] [place], [place] [address]Dr. Jaz Karl Erythrocyte distribution width (RBC) [Ratio] 12.6 % Normal 11.0-15.0 [facility] Comment on above: Performed By: #### C BC ####[facility] [address] [place], [place] [address]Dr. Jaz Barajas Hematocrit (Bld) [Volume fraction] 38.7 % Normal 36.0-48.0 [facility] Comment on above: Performed By: #### C BC ####[facility] [address] [place], [place] [address]Dr. Jaz Barajas Hemoglobin (Bld) [Mass/Vol] 12.9 g/dL Normal 12.0-16.0 [facility] Comment on above: Performed By: #### C BC ####[facility] [address] [place], [place] [address]Dr. Jaz Barajas IG # 0.02 10e3/ul Normal 0.00-0.03 [facility] Comment on above: Performed By: #### C BC ####[facility] [address] [place] [address]Dr. Hannahisela Barajas IG % 0.2 % Normal 0.0-0.5 [facility] Comment on above: Performed By: #### C BC ####[facility] [address] [place], [place] [address]Dr. Hannahisela Barajas LYMPH # 3.5 103/ul Normal 1.2-3.8 [facility] Comment on above: Performed By: #### C BC ####[facility] [address] [place], [place] [address]Dr. aHnnahisela Barajas Lymphocytes/100 WBC (Bld) 34.4 % Normal 20.5-60.0 [facility] Comment on above: Performed By: #### C BC ####[facility] [address] [place], [place] [address]Dr. Jaz Barajas MANUAL DIFF REQ NO Normal [facility] Comment on above: Performed By: #### C BC ####[facility] [address] [place], [place] [address]Dr. Jaz Karl MCH (RBC) [Entitic mass] 27.2 pg Normal 26.7-34.0 [facility] Comment on above: Performed By: #### C BC ####[facility] [address] [place], [place] [address]Dr. Jaz Karl MCHC (RBC) [Mass/Vol] 33.3 g/dL Normal 29.9-35.2 [facility] Comment on above: Performed By: #### C BC ####[facility] [address] [place], [place] [address]Dr. Hannahisela Barajas MCV (RBC) [Entitic vol] 81.6 fL Normal 81.0-99.0 [facility] Comment on above: Performed By: #### C BC ####[facility] [address] [place], [place] [address]Dr. Jaz Barajas MONO # 0.7 103/ul Normal 0.3-0.8 [facility] Comment on above: Performed By: #### C BC ####[facility] [address] [place] [id number]. Jaz Barajas Monocytes/100 WBC (Bld) 7.0 % Normal 1.7-12.0 [facility] Comment on above: Performed By: #### C BC ####[facility] [address] [place] [id number]. Jaz Barajas NEUT # 5.7 103/ul Normal 1.4-6.5 [facility] Comment on above: Performed By: #### C BC ####[facility] [address] [place] [id number]. Jaz Barajas Neutrophils/100 WBC (Bld) 56.3 % Normal 43.0-75.0 [facility] Comment on above: Performed By: #### C BC ####[facility] [address] [place] [address]Dr. aJz Barajas Platelet mean volume (Bld) [Entitic vol] 11.0 fL Normal 9.5-13.5 [facility] Comment on above: Performed By: #### C BC ####[facility] [address] [place] [id number]. Jaz Barajas PLT 274 103/ul Normal 150-450 [facility] Comment on above: Performed By: #### C BC ####[facility] [address] [place] [id number]. Jaz Barajas RBC 4.74 106/ul Normal 4.20-5.40 [facility] Comment on above: Performed By: #### C BC ####[facility] [address] [place] [id number]. Jaz Barajas WBC 10.0 103/ul Normal 4.0-11.0 [facility] Comment on above: Performed By: #### C BC ####[facility] [address] [place] [address]Dr. Jaz Barajas [facility]on SARS-CoV-2 (COVID-19) RNA REANNA+probe Ql (Unsp spec) Not detected Normal NOT DETECTED [facility] Comment on above: Result Comment: This test is not yet approved or cleared by the [place] FDA. When there are no FDA-approved or cleared tests available, and other criteria are met, FDA can make tests available under an emergency access mechanism called an Emergency Use Authorization (EUA). The EUA for this test is supported by the [place] of Health and Human Service's (HHS's) declaration [...] SARS-CoV-2. Performed By: #### P REGU #### [facility] [address] [place] [address] Dr. Jaz Barajas PROF CHEM 8 (BAS METB)on Anion gap [Moles/Vol] 10.1 mmol/L Normal [facility] Comment on above: Performed By: #### P REGU #### [facility] [address] [place] [address] Dr. Jaz Barajas Calcium [Mass/Vol] 9.0 mg/dL Normal 8.5-10.1 [facility] Comment on above: Performed By: #### P REGU #### [facility] [address] [place] [address] Dr. Jaz Barajas Chloride [Moles/Vol] 99 mmol/L Normal 98-107 [facility] [facility] Comment on above: Performed By: #### P REGU #### [facility] [address] [place] [address] Dr. Jaz Barajas CO2 [Moles/Vol] 29.1 mmol/L Normal 21.0-32.0 [facility] Comment on above: Performed By: #### P REGU #### [facility] [address] [address] [address] Jaz Barajas Creatinine [Mass/Vol] 0.80 mg/dL Normal 0.55-1.02 [facility] Comment on above: Performed By: #### P REGU #### [facility] [address] [place] [address] Dr. Jaz Barajas EGFR-AF CYMRAES >60 Normal >=60 [facility] Comment on above: Performed By: #### P REGU #### [facility] [address] [address] [address] Jaz Barajas EGFR-NON AF CYMRAES >60 Normal >=60 [facility] Comment on above: Performed By: #### P REGU #### [facility] [address] [place] [address] Dr. Jaz Barajas Glucose [Mass/Vol] 217 mg/dL Critically high 74-[address] [facility] Comment on above: Performed By: #### P REGU #### [facility] [address] [place] [address] Dr. Jaz Barajas Potassium [Moles/Vol] 4.2 mmol/L Normal 3.5-5.1 [facility] Comment on above: Result Comment: spec imen slightly hemolyzed may affect K+ result Performed By: #### P REGU #### [facility] [address] [place] [address] Dr. Jaz Barajas Sodium [Moles/Vol] 134 mmol/L Critically low 136-145 Th [facility] Comment on above: Performed By: #### P REGU #### [facility] [address] [place] [address] Dr. Jaz Barajas Urea nitrogen [Mass/Vol] 11.0 mg/dL Normal 7.0-18.0 [facility] Comment on above: Performed By: #### P REGU #### [facility] [address] [place] [address] Dr. Jaz Barajas Urea nitrogen/Creatinin e [Mass ratio] 13.8 mg/mg Normal [facility] Comment on above: Performed By: #### P REGU #### [facility] [address], [place] [address] ABD/PELV W CONon [...] JEYSON BLANTON Date: 2022-04-18 12:31 Normal [facility] ER URINE PROFILEon 2 Bilirubin Ql (U) Negative Normal NEGATIVE [facility] Comment on above: Performed By: #### E NAMITAR, PREGU ####[facility] [address] [place], [place] [address]QwDr. Jaz Barajas Clarity (U) CLEAR Normal CLEAR [facility] Comment on above: Performed By: #### E RUR, PREGU ####[facility] [address] [address]Dr. Jaz Barajas Color (U) LT. YELLOW Normal YELLOW [facility] Comment on above: Performed By: #### Neva RUR, PREGU ####[facility] [address] [address]Dr. Jaz Barajas ERUAHD A micrscopic examina tion will be performed if indicated. Normal [facility] Comment on above: Performed By: #### Neva RUR, PREGU ####[facility] [address] [place], [place] [address]Dr. Jaz Barajas Glucose Ql (U) 1000 mg/dl Abnormal NEGATIVE [facility] Comment on above: Performed By: #### Neva ACSTRO, PREGU ####[facility] [address] [place], [place] [address]Dr. Jaz Barajas Hemoglobin Ql (U) Negative Normal NEGATIVE [facility] Comment on above: Performed By: #### Neva RUR, PREGU ####[facility] [address] [place], [place] [address]Dr. Jaz Barajas Ketones Ql (U) Negative Normal NEGATIVE [facility] Comment on above: Performed By: #### Neva RUR, PREGU ####[facility] [address] [place], [place] [address]Dr. Jaz Barajas LEUKOCYTES Negative Normal NEGATIVE [facility] Comment on above: Performed By: #### Neva BREAUXR, PREGU ####[facility] [address] [place], [place] [address]Dr. Jaz Barajas Nitrite Ql (U) Negative Normal NEGATIVE [facility] Comment on above: Performed By: #### Neva RUR, PREGU ####[facility] [address] [place], [place] [address]Dr. Jaz Barajas pH (U) 6.5 [pH] Normal 5-9 [facility] Comment on above: Performed By: #### Neva RUR, PREGU ####[facility] [address] [place], [place] [address]Dr. Jaz Barajas SPEC GRAVITY 1.010 Normal 1.005-<=1.02 5 [facility] Comment on above: Performed By: #### E RUR, PREGU ####[facility] [address] [address]Dr. Jaz Barajas UA PROTEIN Negative Normal NEGATIVE/ TRACE [facility] Comment on above: Performed By: #### E RUR, PREGU ####[facility] [address] [address]Dr. Jaz Barajas UR MICRO IND NOT INDICATED Normal [facility] Comment on above: Performed By: #### E RUR, PREGU ####[facility] [address] [address]Dr. Jaz Barajas Urobilinogen Qn (U) 0.2 {Oxana'U}/dL Normal 0.2 - 1.0 [facility] Comment on above: Performed By: #### E RUR, PREGU ####[facility] [address] [address]Dr. Jaz Barajas URon 04-18-2022 , QUAL Negative Normal NEGATIVE [facility] Comment on above: Performed By: #### E RUR, PREGU ####[facility] [address] [address]Dr. Jaz Barajas 17-OH PROGESTERONE, LC/MSon 04-05-2022 17-OH Progesterone LCMS 43 ng/dL Normal [facility] Comment on above: Result Comment: Adul t Female Follicular 15 - 70 Luteal 35 - 290 Performed By: #### P ROGLCM #### [facility] [address] [place] [address] Dr. Jaz Barajas ANDROSTENEDINE LC/MSon 04-05 Androstenedione LCMS 111 ng/dL Normal 41-262 [facility] Comment on above: Result Comment: This test was developed and its performance characteristics determined by [facility]. It has not been cleared or approved by the Food and Drug Administration. Performed By: #### A NDROST #### [facility] [address] [place] [address] Dr. Jaz Barajas TESTOSTERONE, TOTALon 08-02- 2022 Testosterone [Mass/Vol] 70 ng/dL Critically high 8-60 [facility] Comment on above: Performed By: #### T ESTTOT ####[facility] [address] [place], [place] [address]Dr. Jaz Barajas PROF CHEM 8 (BAS METB)on Anion gap [Moles/Vol] 11.5 mmol/L Normal [facility] Comment on above: Performed By: #### B MP ####[facility] [address] [place], [place] [address]Dr. Jaz Barajas Calcium [Mass/Vol] 9.1 mg/dL Normal 8.5-10.1 [facility] Comment on above: Performed By: #### B MP ####[facility] [address] [place], [place] [address]Dr. Jaz Barajas Chloride [Moles/Vol] 103 mmol/L Normal 98-107 [facility] Comment on above: Performed By: #### B MP ####[facility] [address] [place], [place] [address]Dr. Jaz Barajas CO2 [Moles/Vol] 28.0 mmol/L Normal 21.0-32.0 [facility] Comment on above: Performed By: #### B MP ####[facility] [address] [place], [place] [address]Dr. Jaz Barajas Creatinine [Mass/Vol] 0.74 mg/dL Normal 0.55-1.02 [facility] Comment on above: Performed By: #### B MP ####[facility] [address] [place], [place] [address]Dr. Jaz Barajas EGFR-AF CYMRAES >60 Normal >=60 [facility] Comment on above: Performed By: #### B MP ####[facility] [address] [place], [place] [address]Dr. Jaz Barajas EGFR-NON AF CYMRAES >60 Normal >=60 [facility] Comment on above: Performed By: #### B MP ####[facility] [address] [place], [place] [address]Dr. Jaz Barajas Glucose [Mass/Vol] 197 mg/dL Critically high 74-[address] [facility] Comment on above: Performed By: #### B MP ####[facility] [address] [address]Dr. Jaz Barajas Potassium [Moles/Vol] 4.5 mmol/L Normal 3.5-5.1 [facility] Comment on above: Performed By: #### B MP ####[facility] [address] [address]Dr. Jaz Barajas Sodium [Moles/Vol] 138 mmol/L Normal 136-145 [facility] Comment on above: Performed By: #### B MP ####[facility] [address] [address]Dr. Jaz Barajas Urea nitrogen [Mass/Vol] 11.0 mg/dL Normal 7.0-18.0 [facility] Comment on above: Performed By: #### B MP ####[facility] [address] [address]Dr. Jaz Barajas Urea nitrogen/Creatinin e [Mass ratio] 14.9 mg/mg Normal [facility] Comment on above: Performed By: #### B MP ####[facility] [address] [address]Dr. Jaz Barajas XR ABD FLAT_UPon 02-06-2022 XR [...] EDUARDO RIVERS Date: 2022-02-06 17:25 Normal [facility] CREATININEon 01-31-2022 Creatinine [Mass/Vol] 0.74 mg/dL Normal 0.55-1.02 [facility] Comment on above: Performed By: #### P ROGLCM #### [facility] [address] [address] [address] Jaz Barajas EGFR-AF CYMRAES >60 Normal >=60 [facility] Comment on above: Performed By: #### P ROGLCM #### [facility] [address], [place] [address] Dr. Jaz Barajas EGFR-NON AF CYMRAES >60 Normal >=60 [facility] Comment on above: Performed By: #### P ROGLCM #### [facility] [address], [place] [address] ABDOMEN W CONon [...] JEYSON BLANTON Date: 2022-01-31 18:16 Normal [facility] ACETONE SERUMon 01-09-2022 ACETONE Negative Normal NEGATIVE [facility] Comment on above: Performed By: #### A CETON ####[facility] [address] [address]Dr. Jaz Barajas CARDIAC BISI ADMITon 022 CK [Catalytic activity/Vol] 58 U/L Normal 26-192 [facility] Comment on above: Performed By: #### P REGU #### [facility] [address] [place] [address] Dr. Jaz Barajas CK.MB [Mass/Vol] 0.64 ng/mL Normal <=3.60 [facility] Comment on above: Performed By: #### P REGU #### [facility] [address] [place] [address] Dr. Jaz Barajas HSTROP 5.3 pg/mL Normal 4.0-51.3 [facility] Comment on above: Result Comment: CUT- OFF POINTS HAVE BEEN ESTABLISHED BASED ON THE FOURTH UNIVERSAL DEFINITIONS OF MYOCARDIAL INFARCTION. THE UPPER REFERENCE LIMIT (URL) OF TROPONIN, DEFINED THE 99TH PERCENTILE OF cTnI DISTRIBUTION IN A REFERENCE POPULATION, HAS BEEN CONFIRMED THE DECISION THRESHOLD FOR GA DIAGNOSIS. Performed By: #### P REGU #### [facility] [address] [place] [address] Dr. Jaz Barajas WAI 30 ng/mL Normal 9-82 [facility] Comment on above: Performed By: #### P REGU #### [facility] [address] [place] [address] Dr. Jaz Barajas CBC AUTO DIFFon 01-09-2022 BASO # 0.1 103/ul Normal 0.0-0.1 [facility] Comment on above: Performed By: #### P REGU #### [facility] [address] [place] [address] Dr. Jaz Barajas Basophils/100 WBC (Bld) 0.5 % Normal 0.2-2.0 [facility] Comment on above: Performed By: #### P REGU #### [facility] [address] [place] [address] Dr. Jaz Barajas EO # 0.3 103/ul Normal 0.0-0.7 [facility] Comment on above: Performed By: #### P REGU #### [facility] [address] [place] [address] Dr. Jaz Barajas Eosinophils/100 WBC (Bld) 2.5 % Normal 0.9-7.0 [facility] Comment on above: Performed By: #### P REGU #### [facility] [address] [place] [address] Dr. Jaz Barajas Erythrocyte distribution width (RBC) [Ratio] 12.8 % Normal 11.0-15.0 [facility] Comment on above: Performed By: #### P REGU #### [facility] [address] [place] [address] Dr. Jaz Barajas Hematocrit (Bld) [Volume fraction] 41.0 % Normal 36.0-48.0 [facility] Comment on above: Performed By: #### P REGU #### [facility] [address] [place] [address] Dr. Jaz Barajas Hemoglobin (Bld) [Mass/Vol] 13.6 g/dL Normal 12.0-16.0 [facility] Comment on above: Performed By: #### P REGU #### [facility] [address] [place] [address] Dr. Jaz Barajas IG # 0.03 10e3/ul Normal 0.00-0.03 [facility] Comment on above: Performed By: #### P REGU #### [facility] [address] [place] [address] Dr. Jaz Barajas IG % 0.3 % Normal 0.0-0.5 [facility] Comment on above: Performed By: #### P REGU #### [facility] [address] [place] [address] Dr. Jaz Barajas LYMPH # 2.7 103/ul Normal 1.2-3.8 [facility] Comment on above: Performed By: #### P REGU #### [facility] [address] [place] [address] Dr. Jaz Barajas Lymphocytes/100 WBC (Bld) 25.7 % Normal 20.5-60.0 [facility] Comment on above: Performed By: #### P REGU #### [facility] [address] [place] [address] Dr. Jaz Barajas MANUAL DIFF REQ NO Normal [facility] Comment on above: Performed By: #### P REGU #### [facility] [address] [place] [address] Dr. Jaz Barajas MCH (RBC) [Entitic mass] 27.7 pg Normal 26.7-34.0 [facility] Comment on above: Performed By: #### P REGU #### [facility] [address] [place] [address] Dr. Jaz Barajas MCHC (RBC) [Mass/Vol] 33.2 g/dL Normal 29.9-35.2 [facility] Comment on above: Performed By: #### P REGU #### [facility] [address] [place] [address] Dr. Jaz Barajas MCV (RBC) [Entitic vol] 83.5 fL Normal 81.0-99.0 [facility] Comment on above: Performed By: #### P REGU #### [facility] [address] [place] [address] Dr. Jaz Barajas MONO # 0.8 103/ul Normal 0.3-0.8 [facility] Comment on above: Performed By: #### P REGU #### [facility] [address] [place] [address] Dr. Jaz Barajas Monocytes/100 WBC (Bld) 7.4 % Normal 1.7-12.0 [facility] Comment on above: Performed By: #### P REGU #### [facility] [address] [place] [address] Dr. Jaz Barajas NEUT # 6.6 103/ul Critically high 1.4-6.5 [facility] Comment on above: Performed By: #### P REGU #### [facility] [address] [place] [address] Dr. Jaz Barajas Neutrophils/100 WBC (Bld) 63.6 % Normal 43.0-75.0 [facility] Comment on above: Performed By: #### P REGU #### [facility] [address] [place] [address] Dr. Jaz Barajas Platelet mean volume (Bld) [Entitic vol] 11.5 fL Normal 9.5-13.5 [facility] Comment on above: Performed By: #### P REGU #### [facility] [address] [place] [address] Dr. Jaz Barajas PLT 227 103/ul Normal 150-450 [facility] Comment on above: Performed By: #### P REGU #### [facility] [address] [address] [address] Jaz Barajas RBC 4.91 106/ul Normal 4.20-5.40 [facility] Comment on above: Performed By: #### P REGU #### [facility] [address] [address] [address] Jaz Barajas WBC 10.4 103/ul Normal 4.0-11.0 [facility] Comment on above: Performed By: #### P REGU #### [facility] [address] [place] [address] Dr. Jaz Barajas CTA CHEST WO W [...] JEYSON BLANTON Date: 2022-01-09 09:47 Normal [facility] D-DIMERon 01-09-2022 D-DIMER 0.56 mg/L FEU Critically high 0.19-0.50 [facility] Comment on above: Result Comment: test repeated critical value verified Performed By: #### D DIM, PT, PTT #### [facility] [address] [address] [address] Jaz Barajas D-DIMER COMMENTS SEE BELOW Normal [facility] Comment on above: Result Comment: Incr [...] By: #### D DIM, PT, PTT #### [facility] [address] [address] [address] Jaz Barajas ER URINE PROFILEon 2 Bilirubin Ql (U) Negative Normal NEGATIVE [facility] Comment on above: Performed By: #### P ROGLCM #### [facility] [address] [place] [address] Dr. Jaz Barajas Clarity (U) CLEAR Normal CLEAR [facility] Comment on above: Performed By: #### P ROGLCM #### [facility] [address] [place] [address] Dr. Jaz Barajas Color (U) YELLOW Normal YELLOW [facility] Comment on above: Performed By: #### P ROGLCM #### [facility] [address] [place] [address] Dr. Jaz Barajas ERUAHD A micrscopic examina tion will be performed if indicated. Normal [facility] Comment on above: Performed By: #### P ROGLCM #### [facility] [address] [place] [address] Dr. Jaz Barajas Glucose Ql (U) 500 mg/dl Abnormal NEGATIVE [facility] Comment on above: Performed By: #### P ROGLCM #### [facility] [address] [place] [address] Dr. Jaz Barajas Hemoglobin Ql (U) Negative Normal NEGATIVE [facility] Comment on above: Performed By: #### P ROGLCM #### [facility] [address] [place] [address] Dr. Jaz Barajas Ketones Ql (U) Negative Normal NEGATIVE [facility] Comment on above: Performed By: #### P ROGLCM #### [facility] [address] [place] [address] Dr. Jaz Barajas LEUKOCYTES Negative Normal NEGATIVE [facility] Comment on above: Performed By: #### P ROGLCM #### [facility] [address] [place] [address] Dr. Jaz Barajas Nitrite Ql (U) Negative Normal NEGATIVE [facility] Comment on above: Performed By: #### P ROGLCM #### [facility] [address] [place] [address] Dr. Jaz Barajas pH (U) 6.0 [pH] Normal 5-9 [facility] Comment on above: Performed By: #### P ROGLCM #### [facility] [address] [place] [address] Dr. Jaz Barajas SPEC GRAVITY >=1.030 Abnormal 1.005-<=1.02 5 [facility] Comment on above: Performed By: #### P ROGLCM #### [facility] [address] [place] [address] Dr. Jaz Barajas UA PROTEIN Negative Normal NEGATIVE/ TRACE [facility] Comment on above: Performed By: #### P ROGLCM #### [facility] [address] [place] [address] Dr. Jaz Barajas UR MICRO IND NOT INDICATED Normal [facility] Comment on above: Performed By: #### P ROGLCM #### [facility] [address] [place] [address] Dr. Jaz Barajas Urobilinogen Qn (U) 0.2 {Oxana'U}/dL Normal 0.2 - 1.0 [facility] Comment on above: Performed By: #### P ROGLCM #### [facility] [address] [address] [address] Jaz Barajas PH VENOUS BLOODon 01-09-2022 PCO2 VENOUS 39.2 mmHg Critically low 40.0-52.0 [facility] Comment on above: Performed By: #### P HVEN #### [facility] [address] [address] [address] Jaz Barajas pH VENOUS 7.409 Normal 7.330-7.430 [facility] Comment on above: Performed By: #### P HVEN #### [facility] [address] [address] [address] Jaz Barajas URon 01-09-2022 , QUAL Negative Normal NEGATIVE [facility] Comment on above: Performed By: #### P REGU #### [facility] [address] [place] [address] Dr. Jaz Barajas PROF 14(COMP METB)on 022 Albumin [Mass/Vol] 3.2 g/dL Critically low 3.4-5.0 [facility] Comment on above: Performed By: #### P REGU #### [facility] [address] [place] [address] Dr. Jaz Barajas Albumin/Globulin [Mass ratio] 0.8 {ratio} Normal [facility] Comment on above: Performed By: #### P REGU #### [facility] [address] [place] [address] Dr. Jaz Barajas ALP [Catalytic activity/Vol] 109 U/L Normal 46-116 [facility] Comment on above: Performed By: #### P REGU #### [facility] [address] [address] [address] Jaz Barajas ALT [Catalytic activity/Vol] 95 U/L Critically high 14-59 [facility] Comment on above: Performed By: #### P REGU #### [facility] [address] [place] [address] Dr. Jaz Barajas Anion gap [Moles/Vol] 11.7 mmol/L Normal [facility] Comment on above: Performed By: #### P REGU #### [facility] [address] [address] [address] Jaz Barajas AST [Catalytic activity/Vol] 44 U/L Critically high 15-37 [facility] Comment on above: Performed By: #### P REGU #### [facility] [address] [address] [address] Jaz Barajas Bilirubin [Mass/Vol] 0.3 mg/dL Normal 0.2-1.0 [facility] Comment on above: Performed By: #### P REGU #### [facility] [address] [address] [address] Jaz Barajas Calcium [Mass/Vol] 8.8 mg/dL Normal 8.5-10.1 [facility] Comment on above: Performed By: #### P REGU #### [facility] [address] [address] [address] Jaz Barajas Chloride [Moles/Vol] 102 mmol/L Normal 98-107 [facility] Comment on above: Performed By: #### P REGU #### [facility] [address] [address] [address] Jaz Barajas CO2 [Moles/Vol] 25.3 mmol/L Normal 21.0-32.0 [facility] Comment on above: Performed By: #### P REGU #### [facility] [address] [address] [address] Jaz Barajas Creatinine [Mass/Vol] 0.86 mg/dL Normal 0.55-1.02 [facility] Comment on above: Performed By: #### P REGU #### [facility] [address] [address] [address] Jaz Barajas EGFR-AF CYMRAES >60 Normal >=60 [facility] Comment on above: Performed By: #### P REGU #### [facility] [address] [address] [address] Jaz Barajas EGFR-NON AF CYMRAES >60 Normal >=60 [facility] Comment on above: Performed By: #### P REGU #### [facility] [address] [address] [address] Jaz Barajas Globulin (S) [Mass/Vol] 3.9 g/dL Normal [facility] Comment on above: Performed By: #### P REGU #### [facility] [address] [address] [address] Jaz Barajas Glucose [Mass/Vol] 230 mg/dL Critically high 74-[address] [facility] Comment on above: Performed By: #### P REGU #### [facility] [address] [address] [address] Jaz Barajas Potassium [Moles/Vol] 4.0 mmol/L Normal 3.5-5.1 [facility] Comment on above: Performed By: #### P REGU #### [facility] [address] [address] Dr. Jaz Barajas Protein [Mass/Vol] 7.1 g/dL Normal 6.4-8.2 [facility] Comment on above: Performed By: #### P REGU #### [facility] [address] [address] [address] Jaz Barajas Sodium [Moles/Vol] 135 mmol/L Critically low 136-145 [facility] Comment on above: Performed By: #### P REGU #### [facility] [address] [address] [address] Jaz Barajas Urea nitrogen [Mass/Vol] 15.0 mg/dL Normal 7.0-18.0 [facility] Comment on above: Performed By: #### P REGU #### [facility] [address] [address] [address] Jaz Barajas Urea nitrogen/Creatinin e [Mass ratio] 17.4 mg/mg Normal [facility] Comment on above: Performed By: #### P REGU #### [facility] [address] [address] [address] Jaz Barajas PROTIMEon 01-09-2022 INR Coag (PPP) [Relative time] 0.96 {INR} Normal [facility] Comment on above: Performed By: #### D DIM, PT, PTT #### [facility] [address] [place] [address] Dr. Jaz Barajas INR GUIDELINES SEE BELOW Normal [facility] Comment on above: Result Comment: UMU RED INR: 2.0 - 3.0 CONDITIONS NOT LISTED BELOW 2.5 - 3.5 FOR PROSTHETIC HEART VALVE REPLACEMENT 2.5 - 3.5 RECURRENT THROMBOSIS Performed By: #### D DIM, PT, PTT #### [facility] [address] [place] [address] Dr. Jaz Barajas PT Coag (PPP) [Time] 10.4 s Normal 9.0-11.6 [facility] Comment on above: Performed By: #### D DIM, PT, PTT #### [facility] [address] [place] [address] Dr. Jaz Barajas PTTon 01-09-2022 aPTT Coag (Bld) [Time] 28.8 s Normal 22.3-36.2 [facility] Comment on above: Performed By: #### D DIM, PT, PTT #### [facility] [address] [place] [address] Dr. Jaz Barajas TROPONIN, HIGH SENSITIVITYon 01-09-2022 HSTROP 4.5 pg/mL Normal 4.0-51.3 [facility] Comment on above: Result Comment: CUT- OFF POINTS HAVE BEEN ESTABLISHED BASED ON THE FOURTH UNIVERSAL DEFINITIONS OF MYOCARDIAL INFARCTION. THE UPPER REFERENCE LIMIT (URL) OF TROPONIN, DEFINED THE 99TH PERCENTILE OF cTnI DISTRIBUTION IN A REFERENCE POPULATION, HAS BEEN CONFIRMED THE DECISION THRESHOLD FOR GA DIAGNOSIS. Performed By: #### P ROGLCM #### [facility] [address] [place] [address] Dr. Jaz Barajas TSHon 01-09-2022 TSH 2.769 uIU/mL Normal 0.358-3.740 [facility] Comment on above: Performed By: #### P REGU #### [facility] [address] [place] [address] Dr. Jaz Barajas TSH RANGE SEE BELOW Normal [facility] Comment on above: Result Comment: <0.3 4 UIU/ml HYPERTHYROID 0.34-5.60 UIU/ml EUTHYROID >5.60 UIU/ml HYPOTHYROID Performed By: #### P REGU #### [facility] [address] [place] [address] Dr. Jaz Barajas XR CHEST 1 Von [...] acute disease. Electronically authenticated by: JOSE EDUARDO IRVERS Date: 2022-01-09 08:29 Normal [facility] Vital Signs Date Time Vital Sign Value Performing Clinician Faci lity 11-27-2023 12:54-0400 Body temperature 97.88 [degF] Riky Le [facility] 11-27-2023 12:54-0400 Diastolic blood pressure 86 mm[Hg] Riky Le [facility] 11-27-2023 12:54-0400 Heart rate 78 /min Riky Le [facility] 11-27-2023 12:54-0400 Respiratory rate 20 /min Riky Le [facility] 11-27-2023 12:54-0400 SaO2% (BldA) [Mass fraction] 98 % Riky Le [facility] 11-27-2023 12:54-0400 Systolic blood pressure 133 mm[Hg] Riky Le [facility] Encounters Encounter Date Encounter Type Care Provider Facility Start: 05-11-2024 End: 05-11-2024 ambulatory JOANN A FELTER Not Available Start: 04-29-2024 End: 04-29-2024 ambulatory JOANN A FELTER Not Available Start: 03-16-2024 End: 03-16-2024 ambulatory ARIANE AICHHOLZ Not Available Start: 02-02-2024 End: 02-02-2024 ambulatory Rush Garcia MD Facility:[facility] Start: 01-15-2024 End: 01-15-2024 ambulatory ARIANE AICHHOLZ Not Available Start: 12-25-2023 End: 12-25-2023 ambulatory ARIANE AICHHOLZ Not Available Start: 11-27-2023 End: 11-27-2023 Emergency department patient visit Riky Le Facility:[facility] Start: 11-27-2023 End: 11-27-2023 Emergency department patient visit Riky Le [facility] Start: 12-14-2022 End: 12-15-2022 ambulatory THERAPY TECH ARIANE AICHHOLZ Facility:[facility] Start: 12-11-2022 End: 12-12-2022 ambulatory THERAPY TECH ARIANE AICHHOLZ Facility:[facility] Start: 11-15-2022 End: 11-15-[address] SKY DAVIS . Facility:[facility] Start: 11-10-2022 End: 11-10-[address] QUANG LANDA . Facility:[facility] Start: 08-18-2022 End: 08-18-2022 ambulatory GABINO Mckinnon Facility:[facility] Start: 07-09-2022 End: 07-09-[address] SKY DAVIS . Facility:[facility] Start: 05-14-2022 End: 05-14-2022 ambulatory THERAPY TECH ARIANE AICHHOLZ Facility:[facility] Start: 05-13-2022 Encounter for preprocedural laboratory examination DR ROSA APONTE [facility] Start: 05-08-2022 End: 05-09-[address] ROSA APONTE Facility:[facility] Start: 05-08-2022 End: 05-09-2022 Encounter for preprocedural laboratory examination DR ROSA APONTE Facility:[facility] Start: 04-18-2022 End: 04-18-2022 ambulatory THERAPY TECH ARIANE AICHMJZ Facility:[facility] Start: 04-01-2022 End: 04-02-2022 [...] Le Payers Date Payer Category Payer Medicaid [id number] 2023 Unknown 2022 Medicaid [id number] 1990 Unknown [id number] 2.16.84 0.1.598725.3.579.2.593 1988 Unknown [id number] 2.16.84 0.1.780043.3.579.2.593 1988 Unknown [id number] 2.16.84 0.1.033927.3.579.2.593 1988 Unknown [id number] 2.16.84 0.1.014881.3.579.2.593 1988 Unknown [id number] 2.16.84 0.1.185001.3.579.2.593 1988 Unknown [id number] 2.16.84 0.1.221132.3.579.2.593 1988 Unknown [id number] 2.16.84 0.1.179657.3.579.2.593 1988 Unknown [id number] 2.16.84 0.1.937552.3.579.2.593 1988 Unknown [id number] 2.16.84 0.1.735792.3.579.2.593 1988 Unknown [id number] 2.16.84 0.1.816557.3.579.2.593 1988 Unknown [id number] 2.16.84 0.1.930180.3.579.2.593 1988 Unknown [id number] 2.16.84 0.1.665615.3.579.2.593 1988 Unknown [id number] 2.16.84 0.1.481225.3.579.2.593 1988 Unknown [id number] 2.16.8 40.1.091971.3.579.2.727 1988 Unknown [id number] 2.16. 840.1.229212.3.579.2.196 1988 Unknown [id number] 2.16.84 0.1.663286.3.579.2.1259 1988 Unknown [id number] 2.16.84 0.1.463807.3.579.2.1259 1988 Unknown [id number] 2.16.84 0.1.694882.3.579.2.1259 1988 Unknown [id number] 2.16.84 0.1.404360.3.579.2.1259 1988 Unknown [id number] 2.16.84 0.1.826699.3.579.2.1259 1959 Unknown [id number] 1959 Unknown [id number] Social History Date Type Detail Facility Start: 02-20-2022 Tobacco smoking status Heavy t obacco smoker (finding) [facility] Tobacco smoking status Never [facility] Sex Assigned At Female [facility] Functional Status Date Assessment Result Facility 11-27-2023 Functional Status N/A [facility] Discharge instructions 11-27-2023 Note [...] to strengthen the arm. General instructions Take xvxe-vuv-ipsriyf and prescription medicines only as told by [...] provider. Document Revised: 05/03/2022 Document Reviewed: 05/03/2022 [employer] Patient Education 2022 [employer]. Follow Up Care 11/27/2023 12:54:30 With:Georgi Pfeiffer Address: [address] [place] [id number] Business (1) When:11/30/2023 15:21:31 [facility] Evaluation + Plan note 11-27-2023 [...] EDT, Weight Dosing XR Shoulder Complete Right [facility] Clinical Note 12-16-2022 Note Date [...] authenticated by: HAYDE VAN Date: 2022-12-16 07:21 [facility] Clinical Note 12-16-2022 Note Date & [...] authenticated by: HAYDE VAN Date: 2022-12-16 07:17 [facility] Clinical Note 05-14-2022 Note Date & [...] the recovery room in good condition. [facility] course Narrative Note Date & Type Note Facility Hospital course Narrative No data available for this section [facility] Progress note Note Date & Type Note Facility Progress note No data available for this section [facility] Summary Purpose Family History No [...] and content) DATE CREATED AUTHOR 12/19/2022 [facility] DATE CREATED AUTHOR AUTHOR'S ORGANIZ ATION 11/29/2023 [facility] DATE CREATED AUTHOR AUTHOR'S ORGANIZ ATION 02/13/2024 [facility] DATE CREATED AUTHOR AUTHOR'S ORGANIZ ATION 05/13/2024 [facility] EPIC Patient Care team informatio n (unrecognized section and content) Personnel Name: ARIANE WELLS CNP Address: Address: [address] [place] [address] FOR RECORDS PERTAINING TO PATIENTS WHO ARE [...] BE BASED ON THE PRIMARY CLINICAL RECORDS. [employer] [facility]. provides no warranty or guarantee of the accuracy or completeness of information in this document.
--- NOTE | 2024-06-03 17:18 | ED_ITS ---
HPI HPI - General Adult General Chief complaint: Nausea/Vomiting/Diarrhea Stated complaint: VOMITTING, HEADACHE, SEEN FRIDAY ED Time Seen by Provider: 06/03/24 16:50 Source: patient Mode of arrival: walk-in Limitations: no limitations History of Present Illness HPI narrative: Patient is a 33-year-old female with a history of chronic neck pain, cervical radiculopathy and frequent headaches who presents to the emergency department for worsening symptoms. She was seen in this emergency department 4 days ago for upper respiratory symptoms of congestion, sore throat. She had unremarkable strep, COVID, influenza screens and was discharged home on amoxicillin for bilateral otitis media. She denies any new fevers. She reports in the last 2 days she has had an increase in headache, vomiting, diarrhea and worsening sore throat. She states she vomited Tylenol prior to arrival. She is not concerned for , no medications prior to arrival. Related Data Home Medications ?Medication ?Instructions ?Recorded ?Confirmed aripiprazole 10 mg tablet 10 mg PO QDAY 02/04/23 02/17/24 buspirone 10 mg tablet 10 mg PO BID 02/04/23 02/17/24 calcium carbonate (Calcium 600) 600 mg PO DAILY 02/04/23 02/17/24 calcium phosphate,dibasic 77 1 tab PO QDAY 02/04/23 02/17/24 mg-vitamin D3 400 unit tablet fluoxetine 40 mg capsule 40 mg PO QDAY 02/04/23 02/17/24 insulin regular hum U-500 conc 500 60 unit subcut TID 02/04/23 02/17/24 unit/mL(3 mL) subcut pen (Humulin R U-500 (Conc) Insulin Kwikpen) magnesium 250 mg tablet 250 mg PO DAILY 02/04/23 02/17/24 pantoprazole 40 mg tablet,delayed 40 mg PO Q12H PRN indigestion 02/04/23 02/17/24 release spironolactone 50 mg tablet 50 mg PO QDAY 02/04/23 02/17/24 trazodone 50 mg tablet 50 mg PO DAILY 02/04/23 02/17/24 cholecalciferol (vitamin D3) 50 2,000 unit PO DAILY 02/02/24 02/17/24 mcg (2,000 unit) tablet (Vitamin D3) empagliflozin 25 mg tablet 25 mg PO DAILY 02/02/24 02/17/24 (Jardiance) gabapentin 100 mg capsule 100 mg PO TID 02/02/24 02/17/24 metformin 500 mg tablet 500 mg PO BID 02/02/24 02/17/24 Previous Rx's ?Medication ?Instructions ?Recorded amoxicillin 500 mg capsule 500 mg PO TID 10 days #30 caps 05/30/24 loratadine 5 mg-pseudoephedrine ER 1 tab PO Q12H PRN nasal congestion 05/30/24 120 mg tablet,extended #20 tabs release,12hr (Claritin-D 12 Hour) tbbefqymrmounkh-afvoowmrfzcedys-CO 10 ml PO Q6H PRN cold symptoms 06/03/24 2 mg-30 mg-10 mg/5 mL oral syrup #200 mL (Bromfed DM) ondansetron 4 mg disintegrating 4 mg PO Q6H PRN nausea and 06/03/24 tablet vomiting #12 tabs Allergies Allergy/AdvReac Type Severity Reaction Status Date / Time prednisone AdvReac Severe hyperglycem Verified 06/03/24 16:58 ia Opioid HPI Opioid Management Most Recent Opioid Data: Last Pain Scale 9 06/03/24 17:38 Last MAR Pain Assessment 06/03/24 17:38 Review of Systems ROS Constitutional Denies: fever or chills Ears, nose, mouth, and throat Reports: throat pain, ear pain and nasal conges tion Cardiovascular Denies: chest pain Respiratory Reports: cough; Denies: shortness of breath Gastrointestinal Reports: nausea, vomiting and diarrhea Musculoskeletal Denies: back pain Neurological Reports: headache; Denies: numbness in extremities or weakness in extremities Hematologic/Lymphatic Denies: easy bruising or easy bleeding PFSH PFSH Social History Smoking status: Current every day smoker Little interest or pleasure in doing things: not at all Feeling down, depressed, or hopeless: not at all Exam Narrative Exam Narrative: Gen.: Awake, alert, in no distress Head: Normocephalic, atraumatic ENT: Moist mucous membranes, bilateral TMs are bulging with blue TM tubes noted. The right TM tube appears shifted with left TM tube in place. No drainage noted. No tonsillar edema or exudate. Uvula midline with no trismus or drooling. Clear speech noted. Respiratory: No respiratory distress, lungs clear bilaterally Cardio: Regular rate and rhythm Extremities: Moves extremities equally Psych: Normal mood and affect Neuro: No focal neuro deficit Skin: Warm, dry, intact Constitutional Vital Signs, click to edit/add: Last Vital Signs Temp 98.6 F 06/03/24 16:58 Pulse 75 06/03/24 16:58 Resp 20 06/03/24 16:58 BP 144/86 H 06/03/24 16:58 Pulse Ox 99 06/03/24 16:58 O2 Del Method Room Air 06/03/24 16:58 Course Vital Signs Vital signs: Vital Signs Temperature 98.6 F 06/03/24 16:58 Pulse Rate 75 06/03/24 16:58 Respiratory Rate 20 06/03/24 16:58 Blood Pressure 144/86 H 06/03/24 16:58 Pulse Oximetry 99 06/03/24 16:58 Oxygen Delivery Method Room Air 06/03/24 16:58 Temperature 98.6 F 06/03/24 16:58 Pulse Rate 75 06/03/24 16:58 Respiratory Rate 20 06/03/24 16:58 Blood Pressure 144/86 H 06/03/24 16:58 Pulse Oximetry 99 06/03/24 16:58 Oxygen Delivery Method Room Air 06/03/24 16:58 Medical Decision Making MDM Narrative Medical decision making narrative: Patient treated with IV fluids, Toradol, Zofran, Decadron. She had no episodes of emesis in the ER. She tolerated ice chips with no difficulty. Basic lab studies are within normal limits. Of note, the patient strep screen was negative in the ER previously but her strep culture resulted positive for group A strep today. She was already appropriately treated with amoxicillin, she was made aware of the strep screen findings and will be started on Zofran, Bromfed- DM for home. Follow-up with PCP and return to the ER if symptoms change or worsen. SHARED APC VISIT, PHYSICIAN ATTESTATION: [id number]-[id number]-rxla I performed a substantive part of the MDM during the patient?s E/M visit. I personally evaluated and examined the patient. I personally made or approved the documented management plan and acknowledge its risk of complications. Medical Records Medical records reviewed: Yes I reviewed the patient's medical records Lab Data Lab results reviewed: Yes I reviewed the patient's lab results Labs: Lab Results 06/03/24 Range/Units 17:19 WBC 10.4 (4.0-11.0) 10^3/uL RBC 5.10 (4.20-5.40) 10^6/uL Hgb 13.8 (12.0-16.0) g/dL Hct 41.3 (36.0-48.0) % MCV 81.0 (81.0-99.0) fL MCH 27.1 (26.7-34.0) pg MCHC 33.4 (29.9-35.2) g/dL RDW 12.7 (11.0-15.0) % Plt Count 295 (150-450) 10^3/uL MPV 10.9 (9.5-13.5) fL Neut % (Auto) 55.8 (43.0-75.0) % Lymph % (Auto) 35.5 (20.5-60.0) % Crane % (Auto) 6.6 (1.7-12.0) % Eos % (Auto) 1.4 (0.9-7.0) % Baso % (Auto) 0.5 (0.2-2.0) % Neut # (Auto) 5.8 (1.4-6.5) 10^3/uL Lymph # (Auto) 3.7 (1.2-3.8) 10^3/uL Crane # (Auto) 0.7 (0.3-0.8) 10^3/uL Eos # (Auto) 0.2 (0.0-0.7) 10^3/uL Baso # (Auto) 0.1 (0.0-0.1) 10^3/uL Abs Immat Gran (auto) 0.02 (0.00-0.03) 10^3/uL Imm/Tot Granulo (auto) 0.2 (0.0-0.5) % Sodium 136 (136-145) mmol/L Potassium 3.9 (3.5-5.1) mmol/L Chloride 100 (98-107) mmol/L Carbon Dioxide 26.1 (21.0-32.0) mmol/L Anion Gap 13.8 BUN 15.0 (7.0-18.0) mg/dL Creatinine 0.84 (0.55-1.02) mg/dL Est GFR ( Amer) >60 (>=60 mL/min/1.73m^2) Est GFR (Non-Af Amer) >60 (>=60 mL/min/1.73m^2) BUN/Creatinine Ratio 17.9 Glucose 219 H (74-106) mg/dL Calcium 9.6 (8.5-10.1) mg/dL Total Bilirubin 0.4 (0.2-1.0) mg/dL AST 28 (15-37) U/L ALT 61 H (14-59) U/L Alkaline Phosphatase 93 (46-116) U/L Total Protein 7.6 (6.4-8.2) g/dL Albumin 3.6 (3.4-5.0) g/dL Globulin 4.0 g/dL Albumin/Globulin Ratio 0.9 Discharge Plan Discharge Chief Complaint: Nausea/Vomiting/Diarrhea Clinical Impression: Strep throat, Vomiting and diarrhea, URI (upper respiratory infection) Patient Disposition: Home, Self-Care Time of Disposition Decision: 18:48 Condition: Good Prescriptions / Home Meds: New qpalzodkbktdrcr-dkofunkgr-LL [Bromfed DM] 2-30-10 mg/5 mL syrup 10 ml PO Q6H PRN (Reason: cold symptoms) Qty: 200 0RF ondansetron 4 mg tablet,disintegrating 4 mg PO Q6H PRN (Reason: nausea and vomiting) Qty: 12 0RF No Action aripiprazole 10 mg tablet 10 mg PO QDAY buspirone 10 mg tablet 10 mg PO BID trazodone 50 mg tablet 50 mg PO DAILY fluoxetine 40 mg capsule 40 mg PO QDAY spironolactone 50 mg tablet 50 mg PO QDAY calcium phos,dibas-vitamin D3 77-400 mg-unit tablet 1 tab PO QDAY pantoprazole 40 mg tablet,delayed release (DR/EC) 40 mg PO Q12H PRN (Reason: indigestion) magnesium 250 mg tablet 250 mg PO DAILY calcium carbonate [Calcium 600] 600 mg calcium (1,500 mg) tablet 600 mg PO DAILY Humulin R U-500 (Conc) Kwikpen 500 unit/mL (3 mL) insulin pen 60 unit SUBCUT TID Rx Instructions: with sliding scale Jardiance 25 mg tablet 25 mg PO DAILY metformin 500 mg tablet 500 mg PO BID cholecalciferol (vitamin D3) [Vitamin D3] 50 mcg (2,000 unit) tablet 2,000 unit PO DAILY gabapentin 100 mg capsule 100 mg PO TID amoxicillin 500 mg capsule 500 mg PO TID 10 Days Qty: 30 0RF Claritin-D 12 Hour 5-120 mg tablet extended release 12 hr 1 tab PO Q12H PRN (Reason: nasal congestion) Qty: 20 0RF Print Language: Portuguese Instructions: Strep Throat (ED), Upper Respiratory Infection (ED) Referrals: Ariane Wells PACKAGE WRAPPER [Primary Care Provider] - 1 week
[2024-06-03 17:35] LABS: Basophils Absolute Auto 0.1 10^3/uL (0.0-0.1); Basophils Percent Auto 0.5 % (0.2-2.0); Eosinophils Absolute Auto 0.2 10^3/uL (0.0-0.7); Eosinophils Percent Auto 1.4 % (0.9-7.0); Hematocrit 41.3 % (36.0-48.0); Hemoglobin 13.8 g/dL (12.0-16.0); Immature Granulocytes Abs Auto 0.02 10^3/uL (0.00-0.03); Immature Granulocytes Pct Auto 0.2 % (0.0-0.5); Lymphocytes Absolute Auto 3.7 10^3/uL (1.2-3.8); Lymphocytes Percent Auto 35.5 % (20.5-60.0); Mean Corpuscular HGB Conc 33.4 g/dL (29.9-35.2); Mean Corpuscular Hemoglobin 27.1 pg (26.7-34.0); Mean Platelet Volume 10.9 fL (9.5-13.5); Monocytes Absolute Auto 0.7 10^3/uL (0.3-0.8); Monocytes Percent Auto 6.6 % (1.7-12.0); Neutrophils Absolute Auto 5.8 10^3/uL (1.4-6.5); Neutrophils Percent Auto 55.8 % (43.0-75.0); Platelet Count 295 10^3/uL (150-450); Red Cell Distribution Width 12.7 % (11.0-15.0); White Blood Count 10.4 10^3/uL (4.0-11.0)
[2024-06-03] MEDS: KETOROLAC TROMETHAMINE 30 MG/ML VIAL IVP (17:38)
[2024-06-03] MEDS: 0.9 % SODIUM CHLORIDE 1,000 ML 999 ML IV (17:39)
[2024-06-03] MEDS: DEXAMETHASONE SOD PHOS 10 MG/ML VIAL IV (17:39)
[2024-06-03] MEDS: ONDANSETRON PF 4 MG/2 ML VIAL IV (17:39)
[2024-06-03 18:43] LABS: Alanine Aminotransferase 61 U/L (14-59); Albumin Globulin Ratio 0.9; Albumin Level 3.6 g/dL (3.4-5.0); Alkaline Phosphatase 93 U/L (46-116); Anion Gap 13.8; Aspartate Amino Transferase 28 U/L (15-37); BUN Creatinine Ratio 17.9; Bilirubin Total 0.4 mg/dL (0.2-1.0); Calcium 9.6 mg/dL (8.5-10.1); Carbon Dioxide 26.1 mmol/L (21.0-32.0); Chloride 100 mmol/L (98-107); Estimated GFR (African America >60 (>=60 mL/min/1.73m^2); Estimated GFR (Non-African Ame >60 (>=60 mL/min/1.73m^2); Glucose 219 mg/dL (74-106); Potassium 3.9 mmol/L (3.5-5.1); Sodium 136 mmol/L (136-145); Total Protein 7.6 g/dL (6.4-8.2)
[2024-06-03 19:00] VITALS: BP 126/80; PULSE 88; O2SAT 99
== END 2024-06-03 19:00 | disposition home or self-care (01) ==
PROVIDERS: Physician Assistant; Emergency Provider Emergency Medicine; PCP Nurse Practitioner
DX: J02.0 Streptococcal pharyngitis (principal); R11.10 Vomiting, unspecified; R19.7 Diarrhea, unspecified; F17.200 Nicotine dependence, unspecified, uncomplicated
CPT/HCPCS: 36415; 80053; 85025; 96361; 96374; 96375; 99284; J1100; J1885; J2405

== ENCOUNTER 2024-06-16 20:16 | Outpatient (REF) | payer MEDICAID, SELFPAY ==
--- OUTSIDE RECORDS SUMMARY | 2024-06-16 20:20 | XMS_ITS | CCD ---
Author Organization [facility] Care Team Providers [place] Constable Name Role Phone AICHHOLZ, BOTTOM PAINTER ARIANE Attending Unavailable AICHHOLZ, BOTTOM PAINTER ARIANE Admitting Unavailable AICHHOLZ, BOTTOM PAINTER ARIANE Primary Care Unavailable JOSE EDUARDO RIVERS V Consulting Unavailable AICHHOLZ, BOTTOM PAINTER ARIANE Consulting Unavailable TIMMIS, DR MEJIA Consulting Unavailable AICHHOLZ, BOTTOM PAINTER ARIANE Primary Care Unavailable TIMMIS, DR MEJIA Attending Unavailable TIMMIS, DR MEJIA Admitting Unavailable BRIGGS, MAGDI Consulting Unavailable PAY ., DR SWANSON Admitting Unavailable PAY ., DR SWANSON Consulting Unavailable AICHHOLZ, BOTTOM PAINTER ARIANE Primary Care Unavailable PAY ., DR SWANSON Attending Unavailable AICHHOLZ, BOTTOM PAINTER ARIANE Primary Care Unavailable KAITLIN, DR KLAUDIA Kay Attending Unavailabl e REINECK, DR KLAUDIA Kay Admitting Unavailabl e REINMONA, DR KLAUDIA Kay Consulting Unavailabl e JEYSON BLANTON Consulting Unavailable AICHHOLZ, BOTTOM PAINTER ARIANE Primary Care Unavailable GLEN .GABINO Attending Unavailable GLEN ., GABINO Admitting Unavailable AICHHOLZ, BOTTOM PAINTER ARIANE Primary Care Unavailable JOSE EDUARDO RIVERS V Consulting Unavailable JEYSON BLANTON Consulting Unavailable GLEN .GABINO Consulting Unavailable PAY ., DR SWANSON Admitting Unavailable PAY ., DR SWANSON Consulting Unavailable AICHHOLZ, BOTTOM PAINTER ARIANE Primary Care Unavailable PAY ., DR SWANSON Attending Unavailable GERALDINE LAZAR Consulting Unavailable HAY ., DR DEL RIO Attending Unavailable HAY ., DR DEL RIO Admitting Unavailable AICHHOLZ, BOTTOM PAINTER ARIANE Primary Care Unavailable HAY ., DR DEL RIO Consulting Unavailable GLEN .GABINO Attending Unavailable GLEN ., GABINO Admitting Unavailable AICHHOLZ, BOTTOM PAINTER ARIANE Primary Care Unavailable DONTRELL DIAZ Consulting Unavailable GLEN .GABINO Consulting Unavailable JOSE EDUARDO RHODES Consulting Unavailable AICHHOLZ, BOTTOM PAINTER ARIANE Referring Unavailable AICHHOLZ, BOTTOM PAINTER ARIANE Primary Care Unavailable YUKI, AHMAD Attending Unavailable YUKI, AHMAD Admitting Unavailable YUKI, AHMAD Consulting Unavailable AICHHOLZ, BOTTOM PAINTER ARIANE Consulting Unavailable AICHHOLZ, BOTTOM PAINTER ARIANE Attending Unavailable AICHHOLZ, BOTTOM PAINTER ARIANE Admitting Unavailable AICHHOLZ, BOTTOM PAINTER ARIANE Primary Care Unavailable HAYDE VAN Consulting Unavailable AICHHOLZ, BOTTOM PAINTER ARIANE Consulting Unavailable AICHHOLZ, BOTTOM PAINTER ARIANE Attending Unavailable AICHHOLZ, BOTTOM PAINTER ARIANE Admitting Unavailable AICHHOLZ, BOTTOM PAINTER ARIANE Primary Care Unavailable BK, AMINATA Attending Unavailable BK, AMINATA Admitting Unavailable JEYSON BLANTON Consulting Unavailable AICHHOLZ, BOTTOM PAINTER ARIANE Primary Care Unavailable BK, AMINATA Consulting Unavailable AICHHOLZ, BOTTOM PAINTER ARIANE Primary Care Unavailable TIMMIS, DR MEJIA Consulting Unavailable TIMMIS, DR MEJIA Attending Unavailable TIMMIS, DR MEJIA Admitting Unavailable ELIDA COWAN Consulting Unava ilable AICHHOLZ, ARIANE J Primary Care Physician Riky Le Attending Unavailable Rush Garcia MD Attending Unavailable AICHHOLZ, ARIANE Attending Unavailable AICHHOLZ, ARIANE Attending Unavailable AICHHOLZ, ARIANE Attending Unavailable MIRELA OWENS Attending Unavailable AICHHOLZ, ARIANE Referring Unavailable MIRELA OWENS Attending Unavailable Georges Shook MD Primary Care Provider Channing Freire MD Unavailable [phone] Allergies Allergy Classification Reported Allergen(s) Allergy Type Date of Onset Reaction(s) Facility (2 sources) predniSONE; Translations: [predniSONE] Drug Allergy 0 [facility] Repository (1 source) predniSONE; Translations: [prednisone] Drug Allergy 0 Slurred speech (finding), Tremor (finding) [facility] [place] (1 source) Prednisone Propensity to adverse reactions 4 [facility] Work Phone: Medications Current Medications Medication Drug Class(es) Dates Sig (Normalized) Sig (Original) [id number] 200 actuat albuterol 0.09 mg/actuat metered dose inhaler (1 source) beta2-Adrenergic Agonist take 2 puff(s) by inhalation every six hours for wheezing albuterol HFA 90 mcg/act inhaler Inhale 2 puffs every 6 (six) hours if needed for shortness of breath or wheezing Active ARIPiprazole 15 mg oral tablet (2 sources) Atypical Antipsychotic Start: 06-03-2023 take 1 tablet by mouth once daily ARIPiprazole (Abilify) 15 MG tablet Take 15 mg by mouth Daily 06/03/2023 Active Start: 01-25-2020 take 1 tablet by bev once daily aripiprazole 5 mg Tab 5 mg = 1 tab(s), Oral, Daily, Refills(s) 0 Start Date: 01/25/20 Status: Ordered betamethasone 1 mg/ml topical cream (2 sources) Corticosteroid Start: 05-18-2024 betamethasone valerate (Valisone) 0.1 % cream Indications: 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CMS/HCC) Apply to affected areas, up to twice a day when flared, do not use one the face, groin, or underarms, 30 day supply 45 g 3 05/18/2024 Active Start: 05-11-2024 betamethasone dipropionate (Diprolene) 0.05 % ointment Indications: 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CMS/HCC) Apply to affected areas, up to twice a day when flared, do not use one the face, groin, or underarms, 30 day supply 45 g 3 05/11/2024 Active busPIRone hydrochloride 10 mg oral tablet (2 sources) Start: 06-03-2023 take 1 tablet by mouth in the morning busPIRone (Buspar) 10 MG tablet Take 10 mg by mouth in the morning and 10 mg before bedtime. 06/03/2023 Active Start: 02-06-2022 busPIRone Refi lls(s) 0 Start Date: 02/06/22 Status: Ordered Calcium (1 source) Phosphate Binder, Calcium Start: 11-30-2019 take 1 tablet by mouth once daily Calcium 600+D 1 tab, Oral, Daily, Refill(s) 0 Start Date: 11/30/19 Status: Ordered clobetasol propionate 0.5 mg/ml topical cream (1 source) Corticosteroid Start: 01-15-2024 clobetasol (Temovate) 0.05 % cream Indications: Granuloma annulare Apply topically Daily Apply to affected area once a day for up to 8 weeks. No use on face 45 g 01/15/2024 Active Continuous Glucose Sensor (FreeStyle Ksenia 2 Sensor) misc (1 source) Start: 04-03-2023 Continuous Glucose Sensor (FreeStyle Ksenia 2 Sensor) misc CHANGE SENSOR EVERY 14 DAYS 04/03/2023 Active Jardiance (2 sources) Sodium-Glucose Cotransporter 2 Inhibitor Start: 02-06-2022 Jardiance Refills(s) 0 Start Date: 02/06/22 Status: Ordered take 25 mg by mouth once daily J ardiance 25 MG Take 25 mg by mouth Daily Active FLUoxetine 20 mg oral capsule (3 sources) Serotonin Reuptake Inhibitor Start: 06-03-2023 take 1 capsule by mouth once daily FLUoxetine (PROzac) 20 MG capsule Take 20 mg by mouth Daily 06/03/2023 Active Start: 02-20-2022 take 1 capsule by cox monett once daily FLUoxetine 40 mg Cap 40 mg = 1 cap(s), Oral, Daily, Refills(s) 0 Start Date: 02/20/22 Status: Ordered gabapentin 100 mg oral capsule (1 source) Anti-epileptic Agent Start: 02-02-2024 take 1 capsule by mouth in the morning, then take 1 capsule by mouth in the evening, then take 1 capsule by mouth at bedtime gabapentin (Neurontin) 100 MG capsule Take 100 mg by mouth in the morning and 100 mg in the evening and 100 mg before bedtime. 02/02/2024 Active HumuLIN R KwikPen (Concentrated) (1 source) Start: 02-06-2022 HumuLIN R KwikPen (Concentrated) Refills(s) 0 Start Date: 02/06/22 Status: Ordered 3 ml insulin lispro 100 unt/ml pen injector (1 source) Insulin Analog insulin lispro (HumaLOG KWIKPEN) 100 UNIT/ML injection as directed Subcutaneous Active 3 ml insulin, regular, human 500 unt/ml pen injector (1 source) Insulin Start: 11-01-2023 HumuLIN R U-500 KWIKPEN 500 UNIT/ML CONCENTRATED injection INJECT 80 UNITS TWICE A DAY PLUS ISS 15>150 (EXPECT DAILY DOSE 225 UNITS) 11/01/2023 Active Magnesium (1 source) magnesium 250 MG tablet 1 (one) time each day at the same time Active magnesium oxide 250 mg oral tablet (1 source) Start: 11-30-2019 take 1 tablet by mouth once daily magnesium oxide 250 mg oral tablet 250 mg = 1 tab(s), Oral, Daily, Refills(s) 0 Start Date: 11/30/19 Status: Ordered 24 hr metFORMIN hydrochloride 500 mg extended release oral tablet (2 sources) Biguanide Start: 11-30-2019 take 2 tablets by mouth twice daily Glucophage XR 500 mg Tab-ER 1,000 mg = 2 tab(s), Oral, BID, Refills(s) 0 Start Date: 11/30/19 Status: Ordered take 1 tablet by bev th every twenty-four hours in the morning metFORMIN XR (Glucophage-XR) 500 MG 24 h r tablet Take 1,000 mg by mouth in the morning and 1,000 mg before bedtime. Active methocarbamol 750 mg oral tablet (1 source) Muscle Relaxant Start: 11-27-2023 End: 11-30-2023 take 1 tablet by mouth three times daily Robaxin-750 oral tablet 1,500 mg = 2 tab(s), Oral, TID, X 3 day(s), # 18 tab(s), Refills(s) 0, Pharmacy: [facility], 160, cm, 11/27/23 12:59:00 EDT, Height/Length [...] pain, # 20 tab(s), Refills(s) 0, Pharmacy: [facility], 160, cm, 11/27/23 12:59:00 EDT, Height/Length Dosing, 114.1, kg, 11/27/23 12:59:00 EDT, Weight Dosing Start Date: 11/27/23 Status: Ordered pantoprazole 40 mg delayed release oral tablet (2 sources) Proton Pump Inhibitor Start: 11-30-2019 take 1 tablet by mouth once daily Pantoprazole [address] Tab 40 mg = 1 tab(s), Oral, Daily, Refills(s) 0 Start Date: 11/30/19 Status: Ordered pravastatin sodium 20 mg oral tablet (1 source) HMG-CoA Reductase Inhibitor Start: 01-28-2023 take 1 tablet by mouth in the evening pravastatin (Pravachol) 20 MG tablet Take 20 mg by mouth in the evening 01/28/2023 Active spironolactone 50 mg oral tablet (1 source) Aldosterone Antagonist take 1 tablet by mouth once daily spironolactone (Aldactone) 50 MG tablet Take 50 mg by mouth Daily Active tiZANidine 4 mg oral tablet (1 source) Central alpha-2 Adrenergic Agonist Start: 03-03-2024 tiZANidine (Zanaflex) 4 MG tablet Take 4 mg by mouth 03/03/2024 Active traZODone hydrochloride 50 mg oral tablet (2 sources) Serotonin Reuptake Inhibitor Start: 11-30-2019 take 2 [...] Problem Classification Problem Date Documented Date Episodic/Chronic Anxiety disorders (3 sources) Anxiety disorder, unspecified; Translations: [ANXIETY DISORDER UNSPECIFIED] Onset: 01-09-2022 Chronic Attention-deficit, conduct, and disruptive behavior disorders (2 sources) Attention deficit hyperactivity disorder; Translations: [Attention-deficit hyperactivity disorder, unspecified type] Onset: 12-25-2023 11-30-2019 Chronic Diabetes mellitus with complications (4 sources) Type 2 diabetes mellitus with hyperglycemia; Translations: [TYPE 2 DM W/HYPERGLYCEMIA] Onset: 04-01-2022 Chronic Diabetes mellitus without complication (4 sources) Type 2 diabetes mellitus without complications; Translations: [Diabetes mellitus] Onset: 12-16-2022 Resolved: 03-16-2024 02-06-2022 Chronic Female infertility (2 sources) Female infertility; Translations: [Female infertility, unspecified] Onset: 12-25-2023 11-30-2019 Chronic Inflammatory diseases of female pelvic organs (4 sources) Abscess of vulva; Translations: [ABSCESS OF VULVA] Onset: 11-10-2022 Episodic Joint disorders and dislocations; trauma-related (1 source) Unspecified internal derangement of right knee; Translations: [UNS INTERNAL DERANGEMENT RIGHT KNEE] Onset: 07-10-2022 Chronic Mood disorders (4 sources) Bipolar disorder; Translations: [Depressive disorder] Onset: 12-25-2023 11-30-2019 Chronic Mycoses (1 source) Candidiasis of vagina; Translations: [Candidiasis of vagina] Onset: 05-26-2024 05-26-2024 Episodic Nutritional deficiencies (7 sources) Vitamin D deficiency, unspecified; Translations: [Vitamin D deficiency] Onset: 04-04-2022 Chronic Other acquired deformities (1 source) Acquired deformity of ankle AND/OR foot 11-30-2019 Episodic Other aftercare (1 source) Other jail (current) drug therapy; Translations: [OTH ALF 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 THERAPY] Onset: 11-19-2022 Episodic Other aftercare (1 source) long term care social worker (current) use of oral hypoglycemic drugs; Translations: [ALF USE ORAL 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 DX] Onset: 11-19-2022 Episodic Other aftercare (1 source) custodial (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; Translations: [RESTAURANT MGR CURRENT USE OF INSULIN] Onset: 11-11-2022 Episodic Other ear and sense organ disorders (1 source) Conductive hearing loss, bilateral; Translations: [Conductive hearing loss, bilateral] Onset: 12-25-2023 12-25-2023 Chronic Other endocrine disorders (1 source) Polycystic ovarian syndrome; Translations: [POLYCYSTIC OVARIAN SYNDROME] Onset: 11-19-2022 Chronic Other endocrine disorders (2 sources) Polycystic ovary syndrome; Translations: [Polycystic ovarian syndrome] Onset: 12-25-2023 11-30-2019 Chronic Other non-traumatic joint disorders (4 [...] Chronic Other nutritional; endocrine; and metabolic disorders (2 sources) Body mass index 40+ - severely obese; Translations: [Body mass index (BMI) 45.0-49.9, adult] Onset: 12-25-2023 02-20-2022 Chronic Other nutritional; endocrine; and metabolic disorders (2 sources) Severe obesity; Translations: [Class 3 severe obesity due to excess calories with body mass index (BMI) of 40.0 to 44.9 in adult] Onset: 12-25-2023 11-30-2019 Chronic Residual codes; unclassified (1 source) Sleep apnea 11-30-2019 Chronic Residual codes; unclassified (1 source) Obstructive sleep apnea syndrome; Translations: [Obstructive sleep apnea (adult) (pediatric)] Onset: 12-25-2023 12-25-2023 Chronic Spondylosis; intervertebral disc disorders; other back problems (2 sources) Degeneration of lumbar intervertebral disc; Translations: [DDD (degenerative disc disease), lumbar] Onset: 12-25-2023 11-30-2019 Chronic Substance-related disorders (1 source) Nicotine [...] Other Problems Problem Classification Problem Date Documented Date Episodic/Chronic Abdominal hernia (6 sources) Umbilical hernia without obstruction or gangrene; Translations: [Umbilical hernia] Onset: 01-31-2022 Episodic Abdominal pain (4 sources) Unspecified abdominal pain; Translations: [UNSPECIFIED ABDOMINAL PAIN] Onset: 04-18-2022 Episodic Acquired foot deformities (2 sources) Osteochondral defect of talus; Translations: [Other specified acquired deformities of musculoskeletal system] Onset: 12-25-2023 11-30-2019 Episodic Fever of unknown origin (4 sources) Fever, unspecified; Translations: [FEVER UNSPECIFIED] Onset: 08-18-2022 Episodic Mood disorders (1 source) Mood disorders Onset: 12-25-2023 12-25-2023 Nonspecific chest pain (1 source) Chest pain, unspecified; Translations: [CHEST PAIN UNSPECIFIED] Onset: 01-14-2022 Episodic Other acquired deformities (1 source) Acquired deformity of right ankle; Translations: [Unspecified acquired deformity of right lower leg] Onset: 12-25-2023 12-25-2023 Episodic Other connective tissue disease (1 source) Spasm; Translations: [Other muscle spasm] Onset: 12-25-2023 12-25-2023 Episodic Other connective tissue disease (1 source) Foreign body granuloma of soft tissue; Translations: [Foreign body granuloma of soft tissue, not elsewhere classified, unspecified ankle and foot] Onset: 01-15-2024 Resolved: 01-15-2024 01-15-2024 Episodic Other inflammatory condition of skin (1 source) Granuloma annulare; Translations: [Granuloma annulare] Onset: 01-15-2024 01-15-2024 Episodic Other skin disorders (1 source) Hirsutism; Translations: [HIRSUTISM] Onset: 04-04-2022 Episodic Other upper respiratory infections (1 source) Acute upper respiratory infection, unspecified; Translations: [ACUTE UP RESPIRATORY INFECTION UNS] Onset: 08-20-2022 Episodic Otitis media and related conditions (6 sources) Other specified disorders of Eustachian tube, left ear; Translations: [Dysfunction of bilateral eustachian tubes] Onset: 05-13-2022 Episodic Residual codes; unclassified (2 sources) Insomnia; Translations: [Insomnia, unspecified] Onset: 12-25-2023 11-30-2019 Episodic Residual codes; unclassified (2 sources) Tobacco user; Translations: [Tobacco use] Onset: 12-25-2023 11-30-2019 Episodic Unclassified (1 source) LOW BACK PAIN, UNSPECIFIED; Translations: [LOW BACK PAIN, UNSPECIFIED] Onset: 11-15-2022 Results Test Name Value Interpretation Reference Range Facility UPPER RESPIRATORY CULTUREon 06-03-2024 UPPER RESPIRATORY CULTURE Upper Respiratory Culture Organism: Beta hemolytic Strep group B : [facility] UPPER RESPIRATORY CULTURE *ABNORMAL* [facility] UPPER RESPIRATORY CULTURE Light growth [facility] UPPER RESPIRATORY CULTURE Penicillin and ampicillin are drugs of choice for [facility] UPPER RESPIRATORY CULTURE treatment of beta-hemolytic streptococcal infections. [facility] UPPER RESPIRATORY CULTURE Susceptibility testing of penicillins and other beta- [facility] UPPER RESPIRATORY CULTURE lactam agents approved by the FDA for treatment of [facility] UPPER RESPIRATORY CULTURE beta-hemolytic streptococcal infections need not be [facility] UPPER RESPIRATORY CULTURE performed routinely because nonsusceptible isolates [facility] UPPER RESPIRATORY CULTURE are extremely rare in any beta-hemolytic streptococcus [facility] UPPER RESPIRATORY CULTURE and have not been reported for Streptococcus pyogenes [facility] UPPER RESPIRATORY CULTURE (group A). (CLSI) [facility] UPPER RESPIRATORY CULTURE Beta hemolytic Strep group B [facility] UPPER RESPIRATORY CULTURE O:BETAGB Isolated [facility] UPPER RESPIRATORY CULTURE [facility] [address] [place], [place] [id number] [facility] UPPER RESPIRATORY CULTURE Gas Pumping Station Helper: Codey Sibley PhD, Phone: [phone] [facility] Formson 11-28-2023 Forms [id number] [facility] Consent for Treatmenton 10-31 Consent for Treatment [id number]#[id number] [facility] Discharge Instructionson Discharge Instructions [id number] [facility] ED Clinical Summaryon 2023 ED Clinical Summary [place] [id number] ED Clinical Summary Person Information Name: [facility]NSON [facility] Age[facility] 33 Years : 1990 Sex: Female Language: French PCP: ARIANE WELLS CNP Marital Status: Visit [...] 11/27/2023 15:37:23 11/27/2023 15:37:23 11/27/2023 15:37:23 ADDRESS: [address] [place] [id number] PHYS DOC NOTES: MEDICAL INFORMATION: Prescriptions Given: [facility], [address], [place] [id number], [phone] methocarbamol (Robaxin-750 oral tablet) 2 Tablets By [...] Follow up: With: Address: When: Georgi Pfeiffer [address] [place], [place] [id number] [facility] ([facility] In 3 days 11/30/2023 DIAGNOSIS: Pain in shoulder [facility] ED Note-Physicianon 11-27-19 ED Note-Physician Basic [...] day(s), # 18 tab(s), Refills(s) 0, Pharmacy: [facility], 160, cm, 11/27/23 12:59:00 EDT, Height/Length [...] Pfeiffer In 3 days 11/30/2023 EDT [address] [place] [address]- Business (1) Additional Instructions: Patient Education Shoulder [...] made to ensure accuracy, however, inadvertently computerized mortar mixer mistakes may be present. Appropriate healthcare PPE [...] (Concentrated) Roma (more content not included)... [facility] Comment on above: Result Comment: [...] strengthen the arm. General instructions ? Take [id number] and prescription medicines only as told by [...] Reviewed: 05/03/2022 Elsevier Patient Education ? 2022 Experts 911. [facility] ED Patient Summaryon 024 ED Patient Summary (Inserted Image. Isadora ble to display) [address] [address] Patient Discharge Instructions Person Information Name: JOHNSON VERA Age: 33 Years Arrival Date: 11/27/2023 12:52:48 Discharge Diagnosis: Pain in shoulder Primary Care Physician: ARIANE WELLS CNP Provider Information Primary Provider: Riky Le DO Advanced Loan Auditor:Steven Cardenas PA-C The exam and treatment you received in the Emergency Department were for an urgent problem and are not intended as complete care. It is important that you follow up with a doctor, nurse practitioner, or physician?s wet process miller head assistant for ongoing care. If your symptoms [...] Follow-up Instructions: With: Address: When: Georgi Pfeiffer [address] [place] [id number] [facility] () In 3 days 11/30/2023 In the event that this physician does not participate in your insurance network, please consult with your insurance company to find a nearby participating provider. Patient Education Materials: Shoulder Pain A MESSAGE TO ALL PATIENTS REGARDING OPIOIDS PRESCRIPTION OPIOIDS: WHAT YOU NEED TO KNOW Prescription opioids can be used to help relieve reijfdlm-me-dvetcd pain and are often prescribed following a [...] guidance from the Food and Drug Administration (www.fda.gov/Drugs/Resources ForYou). ? Visit www.cdc.gov/drugoverdose to learn about the risks of opioids abuse and overdose. ? If you believe you may be struggling with addiction, tell your health animal caregiver and ask for guidance or call [facility] National Helpline at 5-194-210-BRAQ. o Source: [facility] (more content not included)... [facility] 11-27-2023 Forms [id number]#[id number] [facility] XR Shoulder Complete Righton 11-27-2023 XR [...] in mGy = na DAP = na [facility] CBC AUTO DIFFon 12-11-2022 BASO # 0.1 103/ul Normal 0.0-0.1 [facility] Comment on above: Performed By: #### P REGU #### [facility] [address] [address] [address] Jaz Barajas Basophils/100 WBC (Bld) 0.8 % Normal 0.2-2.0 [facility] Comment on above: Performed By: #### P REGU #### [facility] [address] [place] [address] Dr. Jaz Barajas EO # 0.2 103/ul Normal 0.0-0.7 [facility] Comment on above: Performed By: #### P REGU #### [facility] [address] [place] [address] Dr. Jaz Barajas Eosinophils/100 WBC (Bld) 2.1 % Normal 0.9-7.0 [facility] Comment on above: Performed By: #### P REGU #### [facility] [address] [place] [address] Dr. Jaz Barajas Erythrocyte distribution width (RBC) [Ratio] 13.0 % Normal 11.0-15.0 [facility] Comment on above: Performed By: #### P REGU #### [facility] [address] [place] [address] Dr. Jaz Barajas Hematocrit (Bld) [Volume fraction] 41.2 % Normal 36.0-48.0 [facility] Comment on above: Performed By: #### P REGU #### [facility] [address] [place] [address] Dr. Jaz Barajas Hemoglobin (Bld) [Mass/Vol] 13.7 g/dL Normal 12.0-16.0 [facility] Comment on above: Performed By: #### P REGU #### [facility] [address] [place] [address] Dr. Jaz Barajas IG # 0.02 10e3/ul Normal 0.00-0.03 [facility] Comment on above: Performed By: #### P REGU #### [facility] [address] [place] [address] Dr. Jaz Barajas IG % 0.2 % Normal 0.0-0.5 [facility] Comment on above: Performed By: #### P REGU #### [facility] [address] [place] [address] Dr. Jaz Barajas LYMPH # 3.3 103/ul Normal 1.2-3.8 [facility] Comment on above: Performed By: #### P REGU #### [facility] [address] [place] [address] Dr. Jaz Barajas Lymphocytes/100 WBC (Bld) 34.8 % Normal 20.5-60.0 [facility] Comment on above: Performed By: #### P REGU #### [facility] [address] [place] [address] Dr. Jaz Barajas MANUAL DIFF REQ NO Normal [facility] [facility] Comment on above: Performed By: #### P REGU #### [facility] [address] [place] [address] Dr. Jaz Barajas MCH (RBC) [Entitic mass] 26.6 pg Critically low 26.7-34.0 [facility] Comment on above: Performed By: #### P REGU #### [facility] [address] [place] [address] Dr. Jaz Barajas MCHC (RBC) [Mass/Vol] 33.3 g/dL Normal 29.9-35.2 [facility] Comment on above: Performed By: #### P REGU #### [facility] [address] [place] [address] Dr. Jaz Barajas MCV (RBC) [Entitic vol] 79.8 fL Critically low 81.0-99.0 [facility] Comment on above: Performed By: #### P REGU #### [facility] [address] [place] [address] Dr. Jaz Barajas MONO # 0.7 103/ul Normal 0.3-0.8 [facility] Comment on above: Performed By: #### P REGU #### [facility] [address] [place] [address] Dr. Jaz Barajas Monocytes/100 WBC (Bld) 7.3 % Normal 1.7-12.0 [facility] Comment on above: Performed By: #### P REGU #### [facility] [address] [place] [address] Dr. Jaz Barajas NEUT # 5.3 103/ul Normal 1.4-6.5 [facility] Comment on above: Performed By: #### P REGU #### [facility] [address] [place] [address] Dr. Jaz Barajas Neutrophils/100 WBC (Bld) 54.8 % Normal 43.0-75.0 [facility] Comment on above: Performed By: #### P REGU #### [facility] [address] [place] [address] Dr. Jaz Barajas Platelet mean volume (Bld) [Entitic vol] 10.7 fL Normal 9.5-13.5 [facility] Comment on above: Performed By: #### P REGU #### [facility] [address] [place] [address] Dr. Jaz Barajas PLT 284 103/ul Normal 150-450 [facility] Comment on above: Performed By: #### P REGU #### [facility] [address] [place] [address] Dr. Jaz Barajas RBC 5.16 106/ul Normal 4.20-5.40 [facility] Comment on above: Performed By: #### P REGU #### [facility] [address] [place] [address] Dr. Jaz Barajas WBC 9.6 103/ul Normal 4.0-11.0 [facility] Comment on above: Performed By: #### P REGU #### [facility] [address] [place] [address] Dr. Jaz Barajas FREE T4on 12-11-2022 Free T4 [Mass/Vol] 1.10 ng/dL Normal 0.76-1.[address] [facility] Comment on above: Performed By: #### P ROGLCM #### [facility] [address] [place] [address] Dr. Jaz Barajas LIPID PROFILEon 12-11-2022 CHOL-HDL RATIO NORM SEE BELOW Normal [facility] Comment on above: Result Comment: 3.3 - 4.4 LOW RISK 4.4 - 7.1 AVERAGE RISK 7.1 - 11.0 MODERATE RISK >11.0 HIGH RISK Performed By: #### L IPID, TSH, CMP ####[facility] [address] [place] [phone]. Jaz Barajas Cholesterol [Mass/Vol] 168 mg/dL Normal <=200 [facility] Comment on above: Performed By: #### L IPID, TSH, CMP ####[facility] [address] [place] [id number]. Jaz Barajas Cholesterol in HDL [Mass/Vol] 32 mg/dL Critically low 40-60 [facility] Comment on above: Performed By: #### L IPID, TSH, CMP ####[facility] [address] [place] [id number]. Jaz Barajas Cholesterol in LDL [Mass/Vol] 121.8 mg/dL Normal [facility] Comment on above: Performed By: #### L IPID, TSH, CMP ####[facility] [address] [place] [phone]. Jaz Barajas Cholesterol.total/ Cholesterol in HDL [Mass ratio] 5.3 {ratio} Normal [facility] Comment on above: Performed By: #### L IPID, TSH, CMP ####[facility] [address] [place] [id number]. Jaz Barajas HDL NORMAL > or = 60 mg/dl - LO W CARDIOVASCULAR RISK <40 mg/dl - HIGH CARDIOVASCULAR RISK Normal [facility] Comment on above: Performed By: #### L IPID, TSH, CMP ####[facility] [address] [place] [phone]. Jaz Barajas LDL CALC NORMAL SEE BELOW Normal [facility] Comment on above: Result Comment: <100 mg/dl OPTIMAL 100 - 129 mg/dl NEAR OR ABOVE OPTIMAL 130 - 159 mg/dl BORDERLINE HIGH 160 - 189 mg/dl HIGH >190 mg/dl VERY HIGH Performed By: #### L IPID, TSH, CMP ####[facility] [address] [place] [phone]. Jaz Barajas Triglyceride [Mass/Vol] 71 mg/dL Normal <=150 [facility] Comment on above: Performed By: #### L IPID, TSH, CMP ####[facility] [address] [place] [phone]. Jaz Barajas VLDL CALC 14.2 mg/dL Normal [facility] Comment on above: Performed By: #### L IPID, TSH, CMP ####[facility] [address] [place] [phone]. Jaz Barajas MICROALBUMIN, RAND URon 11-30 mALB <1.3 Normal <=30.0 [facility] Comment on above: Performed By: #### P REGU #### [facility] [address] [place], [place] [address] Dr. Jaz Barajas PROF 14(COMP METB)on 023 Albumin [Mass/Vol] 3.7 g/dL Normal 3.4-5.[address] [facility] Comment on above: Performed By: #### L IPID, TSH, CMP ####[facility] [address] [place] [address]Dr. Jaz Barajas Albumin/Globulin [Mass ratio] 0.8 {ratio} Normal [facility] Comment on above: Performed By: #### L IPID, TSH, CMP ####[facility] [address] [place] [address]Dr. Jaz Barajas ALP [Catalytic activity/Vol] 90 U/L Normal 46-116 [facility] Comment on above: Performed By: #### L IPID, TSH, CMP ####[facility] [address] [place] [address]Dr. Jaz Barajas ALT [Catalytic activity/Vol] 106 U/L Critically high 14-59 [facility] Comment on above: Performed By: #### L IPID, TSH, CMP ####[facility] [address] [place] [address]Dr. Jaz Barajas Anion gap [Moles/Vol] 12.5 mmol/L Normal [facility] Comment on above: Performed By: #### L IPID, TSH, CMP ####[facility] [address] [place] [address]Dr. Jaz Barajas AST [Catalytic activity/Vol] 43 U/L Critically high 15-37 [facility] Comment on above: Performed By: #### L IPID, TSH, CMP ####[facility] [address] [place] [address]Dr. Jaz Barajas Bilirubin [Mass/Vol] 0.4 mg/dL Normal 0.2-1.0 [facility] Comment on above: Performed By: #### L IPID, TSH, CMP ####[facility] [address] [place], [place] [address]Dr. Jaz Barajas Calcium [Mass/Vol] 9.0 mg/dL Normal 8.5-10.1 [facility] Comment on above: Performed By: #### L IPID, TSH, CMP ####[facility] [address] [place], [place] [address]Dr. Jaz Barajas Chloride [Moles/Vol] 104 mmol/L Normal 98-107 [facility] Comment on above: Performed By: #### L IPID, TSH, CMP ####[facility] [address] [place], [place] [address]Dr. Jaz Barajas CO2 [Moles/Vol] 25.8 mmol/L Normal 21.0-32.0 [facility] Comment on above: Performed By: #### L IPID, TSH, CMP ####[facility] [address] [place], [place] [address]Dr. Jaz Barajas Creatinine [Mass/Vol] 0.76 mg/dL Normal 0.55-1.02 [facility] Comment on above: Performed By: #### L IPID, TSH, CMP ####[facility] [address] [place], [place] [address]Dr. Hannahlan Barajas EGFR-AF ARMENIAN >60 Normal >=60 [facility] Comment on above: Performed By: #### L IPID, TSH, CMP ####[facility] [address] [place], [place] [address]Dr. Jaz Barajas EGFR-NON AF ARMENIAN >60 Normal >=60 [facility] Comment on above: Performed By: #### L IPID, TSH, CMP ####[facility] [address] [place] [address]Dr. Jaz Barajas Globulin (S) [Mass/Vol] 4.4 g/dL Normal [facility] Comment on above: Performed By: #### L IPID, TSH, CMP ####[facility] [address] [place] [address]Dr. Jaz Barajas Glucose [Mass/Vol] 228 mg/dL Critically high 74-106 [facility] Comment on above: Performed By: #### L IPID, TSH, CMP ####[facility] [address] [place] [address]Dr. Jaz Barajas Potassium [Moles/Vol] 4.3 mmol/L Normal 3.5-5.1 [facility] Comment on above: Performed By: #### L IPID, TSH, CMP ####[facility] [address] [place], [place] [address]Dr. Jaz Barajas Protein [Mass/Vol] 8.1 g/dL Normal 6.4-8.[address] [facility] Comment on above: Performed By: #### L IPID, TSH, CMP ####[facility] [address] [place], [place] [address]Dr. Jaz Barajas Sodium [Moles/Vol] 138 mmol/L Normal 136-[address] [facility] Comment on above: Performed By: #### L IPID, TSH, CMP ####[facility] [address] [place], [place] [address]Dr. Jaz Barajas Urea nitrogen [Mass/Vol] 21.0 mg/dL Critically high 7.0-18.0 [facility] Comment on above: Performed By: #### L IPID, TSH, CMP ####[facility] [address] [place], [place] [address]Dr. Jaz Barajas Urea nitrogen/Creatinin e [Mass ratio] 27.6 mg/mg Normal [facility] Comment on above: Performed By: #### L IPID, TSH, CMP ####[facility] [address] [place], [place] [address]Dr. Jaz Barajas TSHon 12-11-2022 TSH 3.602 uIU/mL Normal 0.358-3.740 [facility] Comment on above: Performed By: #### L IPID, TSH, CMP ####[facility] [address] [place], [place] [address]Dr. Jaz Barajas UA RANDOM W/MICROSCOPICon BACTERIA NONE SEEN Normal NONE SEEN [facility] Comment on above: Performed By: #### U AMIC ####[facility] [address] [place], [place] [address]Dr. Jaz Barajas Bilirubin Ql (U) Negative Normal NEGATIVE [facility] Comment on above: Performed By: #### U AMIC ####[facility] [address] [place], [place] [address]Dr. Jaz Barajas CAST NONE SEEN Normal NONE SEEN [facility] Comment on above: Performed By: #### U AMIC ####[facility] [address] [place], [place] [address]Dr. Jaz Barajas Clarity (U) CLEAR Normal CLEAR [facility] Comment on above: Performed By: #### U AMIC ####[facility] [address] [place], [place] [address]Dr. Jaz Barajas Color (U) LT. YELLOW Normal YELLOW [facility] Comment on above: Performed By: #### U AMIC ####[facility] [address] [place] [address]Dr. Jaz Barajas Crystals LM Nom (Urine sed) NONE SEEN Normal NONE SEEN [facility] Comment on above: Performed By: #### U AMIC ####[facility] [address] [place], [place] [address]Dr. Jaz Barajas Epithelial cells LM Ql (Urine sed) RARE Normal NONE SEEN /RARE [facility] Comment on above: Performed By: #### U AMIC ####[facility] [address] [place], [place] [address]Dr. Jaz Barajas Glucose Ql (U) >1000 Abnormal NEGATIVE [facility] Comment on above: Performed By: #### U AMIC ####[facility] [address] [place], [place] [address]Dr. Jaz Karl Hemoglobin Ql (U) Negative Normal NEGATIVE [facility] Comment on above: Performed By: #### U AMIC ####[facility] [address] [place], [place] [address]Dr. Jaz Karl Ketones Ql (U) Negative Normal NEGATIVE [facility] Comment on above: Performed By: #### U AMIC ####[facility] [address]so[address] [place], [place] [address]Dr. Jaz Barajas LEUKOCYTES Negative Normal NEGATIVE [facility] Comment on above: Performed By: #### U AMIC ####[facility] [address] [place], [place] [address]Dr. Jaz Barajas MUCOUS NONE SEEN Normal NONE SEEN [facility] Comment on above: Performed By: #### U AMIC ####[facility] [address] [place], [place] [address]Dr. Jaz Barajas Nitrite Ql (U) Negative Normal NEGATIVE [facility] Comment on above: Performed By: #### U AMIC ####[facility] [address] [place], [place] [address]Dr. Jaz Barajas pH (U) 6.0 [pH] Normal 5-9 [facility] Comment on above: Performed By: #### U AMIC ####[facility] [address] [place], [place] [address]Dr. Jaz Barajas RBC NONE SEEN Abnormal 0-2 [facility] Comment on above: Performed By: #### U AMIC ####[facility] [address] [place], [place] [address]Dr. Jaz Barajas SPEC GRAVITY 1.020 Normal 1.005-<=1.0 25 [facility] Comment on above: Performed By: #### U AMIC ####[facility] [address] [place], [place] [address]Dr. Jaz Barajas UA PROTEIN Negative Normal NEGATIVE/ TRACE [facility] Comment on above: Performed By: #### U AMIC ####[facility] [address] [place], [place] [address]Dr. Jaz Barajas Urobilinogen Qn (U) 0.2 {Oxana'U}/dL Normal 0.2 - 1.0 [facility] Comment on above: Performed By: #### U AMIC ####[facility] [address] [place] [address]Dr. Jaz Barajas WBC 0-2 Abnormal NONE SEEN [facility] Comment on above: Performed By: #### U AMIC ####[facility] [address] [place] [phone]. Jaz Barajas VITAMIN D 25 OHon 12-11-2022 VIT D 25-OH 30.9 ng/mL Normal [facility] Comment on above: Performed By: #### P ROGLCM #### [facility] [address] [place] [address] [address] Jaz Barajas VIT D RANGES SEE BELOW Normal [facility] Comment on above: Result Comment: <20 ng/mL Vit D deficient 20 - <30 ng/mL Vit D insufficient 30 - 100 ng/mL Vit D sufficient >100 ng/mL Potential Toxicity Performed By: #### P ROGLCM #### [facility] [address] [place] [address] [address] Jaz Barajas CBC AUTO DIFFon 11-15-2022 BASO # 0.1 103/ul Normal 0.0-0.1 [facility] Comment on above: Performed By: #### P ROGLCM #### [facility] [address] [place] [address] [address] Jaz Barajas Basophils/100 WBC (Bld) 0.6 % Normal 0.2-2.0 [facility] Comment on above: Performed By: #### P ROGLCM #### [facility] [address] [place] [address] [address] Jaz Barajas EO # 0.2 103/ul Normal 0.0-0.7 [facility] Comment on above: Performed By: #### P ROGLCM #### [facility] [address] [place] [address] [address] Jaz Barajas Eosinophils/100 WBC (Bld) 2.0 % Normal 0.9-7.0 [facility] Comment on above: Performed By: #### P ROGLCM #### [facility] [address] [place] [address] [address] Jaz Barajas Erythrocyte distribution width (RBC) [Ratio] 13.3 % Normal 11.0-15.0 [facility] Comment on above: Performed By: #### P ROGLCM #### [facility] [address] [place] [address] Dr. Jaz Barajas Hematocrit (Bld) [Volume fraction] 40.4 % Normal 36.0-48.0 [facility] Comment on above: Performed By: #### P ROGLCM #### [facility] [address] [place] [address] Dr. Jaz Barajas Hemoglobin (Bld) [Mass/Vol] 13.5 g/dL Normal 12.0-16.0 [facility] Comment on above: Performed By: #### P ROGLCM #### [facility] [address] [place] [address] Dr. Jaz Barajas IG # 0.03 10e3/ul Normal 0.00-0.03 [facility] Comment on above: Performed By: #### P ROGLCM #### [facility] [address] [place] [address] Dr. Jaz Barajas IG % 0.3 % Normal 0.0-0.5 [facility] Comment on above: Performed By: #### P ROGLCM #### [facility] [address] [place] [address] Dr. Jaz Barajas LYMPH # 3.3 103/ul Normal 1.2-3.8 [facility] Comment on above: Performed By: #### P ROGLCM #### [facility] [address] [place] [address] Dr. Jaz Barajas Lymphocytes/100 WBC (Bld) 30.7 % Normal 20.5-60.0 [facility] Comment on above: Performed By: #### P ROGLCM #### [facility] [address] [place] [address] Dr. Jaz Barajas MANUAL DIFF REQ NO Normal [facility] Comment on above: Performed By: #### P ROGLCM #### [facility] [address] [place] [address] [address] Jaz Barajas MCH (RBC) [Entitic mass] 26.6 pg Critically low 26.7-34.0 [facility] Comment on above: Performed By: #### P ROGLCM #### [facility] [address] [place] [address] Dr. Jaz Barajas MCHC (RBC) [Mass/Vol] 33.4 g/dL Normal 29.9-35.2 [facility] Comment on above: Performed By: #### P ROGLCM #### [facility] [address] [place] [address] Dr. Jaz Barajas MCV (RBC) [Entitic vol] 79.7 fL Critically low 81.0-99.0 [facility] Comment on above: Performed By: #### P ROGLCM #### [facility] [address] [place] [address] Dr. Jaz Barajas MONO # 0.8 103/ul Normal 0.3-0.8 [facility] Comment on above: Performed By: #### P ROGLCM #### [facility] [address] [place] [address] Dr. Jaz Barajas Monocytes/100 WBC (Bld) 7.4 % Normal 1.7-12.0 [facility] Comment on above: Performed By: #### P ROGLCM #### [facility] [address] [place] [address] Dr. Jaz Barajas NEUT # 6.3 103/ul Normal 1.4-6.5 [facility] Comment on above: Performed By: #### P ROGLCM #### [facility] [address] [place] [address] Dr. Jaz Barajas Neutrophils/100 WBC (Bld) 59.0 % Normal 43.0-75.0 [facility] Comment on above: Performed By: #### P ROGLCM #### [facility] [address] [place] [address] Dr. Jaz Barajas Platelet mean volume (Bld) [Entitic vol] 10.7 fL Normal 9.5-13.5 [facility] Comment on above: Performed By: #### P ROGLCM #### [facility] [address] [place] [address] Dr. Jaz Barajas PLT 326 103/ul Normal 150-450 [facility] Comment on above: Performed By: #### P ROGLCM #### [facility] [address] [place] [address] Dr. Jaz Barajas RBC 5.07 106/ul Normal 4.20-5.40 [facility] Comment on above: Performed By: #### P ROGLCM #### [facility] [address] [place] [address] Dr. Jaz Barajas WBC 10.7 103/ul Normal 4.0-11.0 [facility] Comment on above: Performed By: #### P ROGLCM #### [facility] [address] [place] [address] ABD/PELV W CONon [...] GERALDINE LAZAR Date: 2022-11-15 09:13 Normal [facility] ER URINE PROFILEon 3 Bilirubin Ql (U) Negative Normal NEGATIVE [facility] Comment on above: Performed By: #### P ROGLCM #### [facility] [address] [place] [address] [address] Jaz Barajas Clarity (U) CLEAR Normal CLEAR [facility] Comment on above: Performed By: #### P ROGLCM #### [facility] [address] [place] [address] Dr. Jaz Barajas Color (U) LT. YELLOW Normal YELLOW [facility] Comment on above: Performed By: #### P ROGLCM #### [facility] [address] [place] [address] [address] Jaz Barajas ERUAHD A micrscopic examina tion will be performed if indicated. Normal [facility] Comment on above: Performed By: #### P ROGLCM #### [facility] [address] [place] [address] [address] Jaz Barajas Glucose Ql (U) 1000 mg/dl Abnormal NEGATIVE [facility] Comment on above: Performed By: #### P ROGLCM #### [facility] [address] [place] [address] [address] Jaz Barajas Hemoglobin Ql (U) Negative Normal NEGATIVE [facility] Comment on above: Performed By: #### P ROGLCM #### [facility] [address] [address] [address] Jaz Barajas Ketones Ql (U) Negative Normal NEGATIVE [facility] Comment on above: Performed By: #### P ROGLCM #### [facility] [address] [place] [address] Dr. Jaz Barajas LEUKOCYTES Negative Normal NEGATIVE [facility] Comment on above: Performed By: #### P ROGLCM #### [facility] [address] [place] [address] [address] Jaz Barajas Nitrite Ql (U) Negative Normal NEGATIVE [facility] Comment on above: Performed By: #### P ROGLCM #### [facility] [address] [address] [address] Jaz Barajas pH (U) 6.0 [pH] Normal 5-9 [facility] Comment on above: Performed By: #### P ROGLCM #### [facility] [address] [place] [address] Dr. Jaz Barajas SPEC GRAVITY 1.015 Normal 1.005-<=1.[address] [facility] Comment on above: Performed By: #### P ROGLCM #### [facility] [address] [place] [address] Dr. Jaz Barajas UA PROTEIN Negative Normal NEGATIVE/ TRACE [facility] Comment on above: Performed By: #### P ROGLCM #### [facility] [address] [place] [address] Dr. Jaz Barajas UR MICRO IND NOT INDICATED Normal [facility] Comment on above: Performed By: #### P ROGLCM #### [facility] [address] [place] [address] Dr. Jaz Barajas Urobilinogen Qn (U) 0.2 {Oxana'U}/dL Normal 0.2 - 1.0 [facility] Comment on above: Performed By: #### P ROGLCM #### [facility] [address] [place] [address] Dr. Jaz Barajas LIPASEon 11-15-2022 Lipase [Catalytic activity/Vol] 73.0 U/L Normal 73.0-393.0 [facility] Comment on above: Performed By: #### P REGU #### [facility] [address] [place] [address] Dr. Jaz Barajas URon 11-15-2022 , QUAL Negative Normal NEGATIVE [facility] Comment on above: Performed By: #### E RUR, PREGU ####[facility] [address] [place] [address]Dr. Jaz Barajas PROF 14(COMP METB)on 023 Albumin [Mass/Vol] 3.6 g/dL Normal 3.4-5.[address] [facility] Comment on above: Performed By: #### P REGU #### [facility] [address] [address] [address] Jaz Barajas Albumin/Globulin [Mass ratio] 0.9 {ratio} Normal [facility] Comment on above: Performed By: #### P REGU #### [facility] [address] [address] [address] Jaz Barajas ALP [Catalytic activity/Vol] 98 U/L Normal 46-116 [facility] Comment on above: Performed By: #### P REGU #### [facility] [address] [address] [address] Jaz Barajas ALT [Catalytic activity/Vol] 138 U/L Critically high 14-59 [facility] Comment on above: Performed By: #### P REGU #### [facility] [address] [address] [address] Jaz Barajas Anion gap [Moles/Vol] 13.4 mmol/L Normal [facility] Comment on above: Performed By: #### P REGU #### [facility] [address] [address] [address] Jaz Barajas AST [Catalytic activity/Vol] 61 U/L Critically high 15-37 [facility] Comment on above: Performed By: #### P REGU #### [facility] [address] [address] [address] Jaz Barajas Bilirubin [Mass/Vol] 0.2 mg/dL Normal 0.2-1.0 [facility] Comment on above: Performed By: #### P REGU #### [facility] [address] [address] [address] Jaz Barajas Calcium [Mass/Vol] 9.4 mg/dL Normal 8.5-10.1 [facility] Comment on above: Performed By: #### P REGU #### [facility] [address] [address] [address] Jaz Barajas Chloride [Moles/Vol] 104 mmol/L Normal 98-107 [facility] Comment on above: Performed By: #### P REGU #### [facility] [address] [address] [address] Jaz Barajas CO2 [Moles/Vol] 24.7 mmol/L Normal 21.0-32.0 [facility] Comment on above: Performed By: #### P REGU #### [facility] [address] [address] [address] Jaz aBrajas Creatinine [Mass/Vol] 0.69 mg/dL Normal 0.55-1.02 [facility] Comment on above: Performed By: #### P REGU #### [facility] [address] [place] [address] Dr. Jaz Barajas EGFR-AF ARMENIAN >60 Normal >=60 [facility] Comment on above: Performed By: #### P REGU #### [facility] [address] [place] [address] Dr. Jaz Barajas EGFR-NON AF ARMENIAN >60 Normal >=60 [facility] Comment on above: Performed By: #### P REGU #### [facility] [address] [place] [address] Dr. Jaz Barajas Globulin (S) [Mass/Vol] 4.2 g/dL Normal [facility] Comment on above: Performed By: #### P REGU #### [facility] [address] [address] [address] Jaz Barajas Glucose [Mass/Vol] 339 mg/dL Critically high 74-106 T [facility] Comment on above: Performed By: #### P REGU #### [facility] [address] [address] [address] Jaz Barajas Potassium [Moles/Vol] 4.1 mmol/L Normal 3.5-5.1 [facility] Comment on above: Performed By: #### P REGU #### [facility] [address] [place] [address] Dr. Jaz Barajas Protein [Mass/Vol] 7.8 g/dL Normal 6.4-8.[address] [facility] Comment on above: Performed By: #### P REGU #### [facility] [address] [address] [address] Jaz Barajas Sodium [Moles/Vol] 138 mmol/L Normal 136-[address] [facility] Comment on above: Performed By: #### P REGU #### [facility] [address] [address] [address] Jaz Barajas Urea nitrogen [Mass/Vol] 17.0 mg/dL Normal 7.0-18.0 [facility] Comment on above: Performed By: #### P REGU #### [facility] [address] [address] [address] Jaz Barajas Urea nitrogen/Creatinin e [Mass ratio] 24.6 mg/mg Normal [facility] Comment on above: Performed By: #### P REGU #### [facility] [address] [address] [address] Jaz Barajas CULTURE WOUNDon 11-13-2022 CULTURE [...] S F Tetracycline >=[address] [facility] Comment on above: Performed By: #### W OUNDCX ####[facility] [address] [address]Dr. Jaz Barajas Covid-19 PCR (CVDTB)on 08-01 SARS-CoV-2 (COVID-19) RNA REANNA+probe Ql (Unsp spec) Not detected Normal NOT DETECTED The [facility] Comment on above: Result Comment: This test is not yet approved or cleared by the [place] FDA. When there are no FDA-approved or cleared tests available, and other criteria are met, FDA can make tests available under an emergency access mechanism called an Emergency Use Authorization (EUA). The EUA for this test is supported by the [place] of Health and Human Service's (HHS's) declaration [...] SARS-CoV-2. Performed By: #### P ROGLCM #### [facility] [address] [place] [address] Dr. Jaz Barajas INFLUENZA A AND B AGon 08-18 [facility] BELOW Normal [facility] Comment on above: Result Comment: Nega tive for Flu A protein angiten. Infection due to Flu A cannot be ruled out. Flu A angiten in the sample may be below the detection limit of the test. Performed By: #### P ROGLCM #### [facility] [address] [place] [address] Dr. Jaz Barajas [facility] BELOW Normal [facility] Comment on above: Result Comment: Nega tive for Flu B protein antigen. Infection due to Flu B cannot be ruled out. Flu B antigen in the sample may be below the detection limit of the test. Performed By: #### P ROGLCM #### [facility] [address] [place] [address] Dr. Jaz Barajas INFLUENZA A AG Negative Normal NEGATIVE SEE COMMENT The [facility] Comment on above: Performed By: #### P ROGLCM #### [facility] [address] [place] [address] Dr. Jaz Barajas INFLUENZA B AG Negative Normal NEGATIVE SEE COMMENT [facility] Comment on above: Performed By: #### P ROGLCM #### [facility] [address] [address] [address] Jaz Barajas INTERNAL CONTROLS Within Normal Limits Normal Wi thin Normal Limits [facility] Comment on above: Performed By: #### P ROGLCM #### [facility] [address] [address] [address] Jaz Barajas POINT OF CARE GLUCOSEon 08-01 Glucose [Mass/Vol] 310 mg/dL Critically high 74-106 T [facility] Comment on above: Performed By: #### P VALENTINELCM #### [facility] [address] [address] [address] Jaz Barajas XR CHEST 1 Von [...] EDUARDO RHODES Date: 2022-08-18 15:33 Normal [facility] PREG HCG QUALon 05-14-2022 , QUAL Negative Normal NEGATIVE [facility] Comment on above: Performed By: #### P REG ####[facility] [address] [address]Dr. Jaz Barajas CBC AUTO DIFFon 05-08-2022 BASO # 0.1 103/ul Normal 0.0-0.1 [facility] Comment on above: Performed By: #### C BC ####[facility] [address] [address]DrPratibha Barajas Basophils/100 WBC (Bld) 0.6 % Normal 0.2-2.0 [facility] Comment on above: Performed By: #### C BC ####[facility] [address] [address]DrPratibha Barajas EO # 0.2 103/ul Normal 0.0-0.7 [facility] Comment on above: Performed By: #### C BC ####[facility] [address] [id number]. Jaz Barajas Eosinophils/100 WBC (Bld) 1.5 % Normal 0.9-7.0 [facility] Comment on above: Performed By: #### C BC ####[facility] [address] [address]Dr. Jaz Barajas Erythrocyte distribution width (RBC) [Ratio] 12.6 % Normal 11.0-15.0 [facility] Comment on above: Performed By: #### C BC ####[facility] [address] [place], [place] [address]Dr. Jaz Barajas Hematocrit (Bld) [Volume fraction] 38.7 % Normal 36.0-48.0 [facility] Comment on above: Performed By: #### C BC ####[facility] [address] [place], [place] [address]Dr. Jaz Barajas Hemoglobin (Bld) [Mass/Vol] 12.9 g/dL Normal 12.0-16.0 [facility] Comment on above: Performed By: #### C BC ####[facility] [address] [place], [place] [address]Dr. Jaz Barajas IG # 0.02 10e3/ul Normal 0.00-0.03 [facility] Comment on above: Performed By: #### C BC ####[facility] [address] [place], [place] [address]Dr. Jaz Barajas IG % 0.2 % Normal 0.0-0.5 [facility] Comment on above: Performed By: #### C BC ####[facility] [address] [place], [place] [address]Dr. Jaz Barajas LYMPH # 3.5 103/ul Normal 1.2-3.8 [facility] Comment on above: Performed By: #### C BC ####[facility] [address] [place], [place] [address]Dr. Jaz Barajas Lymphocytes/100 WBC (Bld) 34.4 % Normal 20.5-60.0 [facility] Comment on above: Performed By: #### C BC ####[facility] [address] [id number]. Jaz Barajas MANUAL DIFF REQ NO Normal [facility] Comment on above: Performed By: #### C BC ####[facility] [address] [phone]. Jaz Barajas MCH (RBC) [Entitic mass] 27.2 pg Normal 26.7-34.0 [facility] Comment on above: Performed By: #### C BC ####[facility] [address] [place], [place] [address]Dr. Jaz Barajas MCHC (RBC) [Mass/Vol] 33.3 g/dL Normal 29.9-35.2 [facility] Comment on above: Performed By: #### C BC ####[facility] [address] [place], [place] [address]Dr. Jaz Karl MCV (RBC) [Entitic vol] 81.6 fL Normal 81.0-99.0 [facility] Comment on above: Performed By: #### C BC ####[facility] [address] [place], [place] [address]Dr. Jaz Barajas MONO # 0.7 103/ul Normal 0.3-0.8 [facility] Comment on above: Performed By: #### C BC ####[facility] [address] [place], [place] [address]Dr. Hannahisela Barajas Monocytes/100 WBC (Bld) 7.0 % Normal 1.7-12.0 [facility] Comment on above: Performed By: #### C BC ####[facility] [address] [place], [place] [id number]. Jaz Barajas NEUT # 5.7 103/ul Normal 1.4-6.5 [facility] Comment on above: Performed By: #### C BC ####[facility] [address] [place], [place] [address]Dr. Jaz Barajas Neutrophils/100 WBC (Bld) 56.3 % Normal 43.0-75.0 [facility] Comment on above: Performed By: #### C BC ####[facility] [address] [place], [place] [address]Fo. Jaz Barajas Platelet mean volume (Bld) [Entitic vol] 11.0 fL Normal 9.5-13.5 [facility] Comment on above: Performed By: #### C BC ####[facility] [address] [place], [place] [address]Ja. Jaz Barajas PLT 274 103/ul Normal 150-450 [facility] Comment on above: Performed By: #### C BC ####[facility] [address] [place], [place] [address]Is. Jaz Barajas RBC 4.74 106/ul Normal 4.20-5.40 [facility] Comment on above: Performed By: #### C BC ####[facility] [address] [place], [place] [address]Ky. Jaz Barajas WBC 10.0 103/ul Normal 4.0-11.0 [facility] Comment on above: Performed By: #### C BC ####[facility] [address] [place], [place] [address]Lr. Jaz Barajas Covid-19 PCR ([facility])on SARS-CoV-2 (COVID-19) RNA REANNA+probe Ql (Unsp spec) Not detected Normal NOT DETECTED The [facility] Comment on above: Result Comment: This test is not yet approved or cleared by the [place] FDA. When there are no FDA-approved or cleared tests available, and other criteria are met, FDA can make tests available under an emergency access mechanism called an Emergency Use Authorization (EUA). The EUA for this test is supported by the [place] of Health and Human Service's (HHS's) declaration [...] SARS-CoV-2. Performed By: #### P REGU #### [facility] [address] [place] [address] Dr. Jaz Barajas PROF CHEM 8 (BAS METB)on Anion gap [Moles/Vol] 10.1 mmol/L Normal [facility] Comment on above: Performed By: #### P REGU #### [facility] [address] [place] [address] Dr. Jaz Barajas Calcium [Mass/Vol] 9.0 mg/dL Normal 8.5-10.[address] [facility] Comment on above: Performed By: #### P REGU #### [facility] [address] [place] [address] Dr. Jaz Barajas Chloride [Moles/Vol] 99 mmol/L Normal 98-107 [facility] Comment on above: Performed By: #### P REGU #### [facility] [address] [place] [address] Dr. Jaz Barajas CO2 [Moles/Vol] 29.1 mmol/L Normal 21.0-32.0 [facility] Comment on above: Performed By: #### P REGU #### [facility] [address] [place] [address] Dr. Jaz Barajas Creatinine [Mass/Vol] 0.80 mg/dL Normal 0.55-1.02 [facility] Comment on above: Performed By: #### P REGU #### [facility] [address] [place] [address] Dr. Jaz Barajas EGFR-AF ARMENIAN >60 Normal >=60 [facility] Comment on above: Performed By: #### P REGU #### [facility] [address] [place] [address] Dr. Jaz Barajas EGFR-NON AF ARMENIAN >60 Normal >=60 [facility] Comment on above: Performed By: #### P REGU #### [facility] [address] [place] [address] Dr. Jaz Barajas Glucose [Mass/Vol] 217 mg/dL Critically high 74-106 T he [facility] Comment on above: Performed By: #### P REGU #### [facility] [address] [place] [address] Dr. Jaz Barajas Potassium [Moles/Vol] 4.2 mmol/L Normal 3.5-5.1 [facility] Comment on above: Result Comment: spec imen slightly hemolyzed may affect K+ result Performed By: #### P REGU #### [facility] [address] [place] [address] Dr. Jaz Barajas Sodium [Moles/Vol] 134 mmol/L Critically low 136-145 Th e [facility] Comment on above: Performed By: #### P REGU #### [facility] [address] [place] [address] Dr. Jaz Barajas Urea nitrogen [Mass/Vol] 11.0 mg/dL Normal 7.0-18.0 [facility] Comment on above: Performed By: #### P REGU #### [facility] [address] [place] [address] Dr. Jaz Barajas Urea nitrogen/Creatinin e [Mass ratio] 13.8 mg/mg Normal [facility] Comment on above: Performed By: #### P REGU #### [facility] [address] [place] [address] ABD/PELV W CONon [...] JEYSON BLANTON Date: 2022-04-18 12:31 Normal [facility] ER URINE PROFILEon 2 Bilirubin Ql (U) Negative Normal NEGATIVE [facility] Comment on above: Performed By: #### Neva BREAUXR, PREGU ####[facility] [address] [place], [place] [address]Dr. Jaz Barajas Clarity (U) CLEAR Normal CLEAR [facility] Comment on above: Performed By: #### Neva CASTRO, PREGU ####[facility] [address] [address]Dr. Jaz Barajas Color (U) LT. YELLOW Normal YELLOW [facility] Comment on above: Performed By: #### Neva BREAUXR, PREGU ####[facility] [address] [address]Dr. Jaz Barajas ERUAHD A micrscopic examina tion will be performed if indicated. Normal [facility] Comment on above: Performed By: #### Neva RUR, PREGU ####[facility] [address] [address]Dr. Jaz Barajas Glucose Ql (U) 1000 mg/dl Abnormal NEGATIVE The [facility] Comment on above: Performed By: #### Neva BREAUXR, PREGU ####[facility] [address] [place], [place] [address]Dr. Jaz Barajas Hemoglobin Ql (U) Negative Normal NEGATIVE [facility] Comment on above: Performed By: #### E RUR, PREGU ####[facility] [address] [place], [place] [address]Dr. Jaz Barajas Ketones Ql (U) Negative Normal NEGATIVE The [facility] Comment on above: Performed By: #### E RUR, PREGU ####[facility] [address] [place], [place] [address]Dr. Jaz Barajas LEUKOCYTES Negative Normal NEGATIVE [facility] Comment on above: Performed By: #### E RUR, PREGU ####[facility] [address] [place], [place] [address]Dr. Jaz Barajas Nitrite Ql (U) Negative Normal NEGATIVE The [facility] Comment on above: Performed By: #### E RUR, PREGU ####[facility] [address] [place], [place] [address]Dr. Jaz Barajas pH (U) 6.5 [pH] Normal 5-9 [facility] Comment on above: Performed By: #### E RUR, PREGU ####[facility] [address] [place], [place] [address]Dr. Hannahisela Barajas SPEC GRAVITY 1.010 Normal 1.005-<=1.[address] [facility] Comment on above: Performed By: #### E RUR, PREGU ####[facility] [address] [place], [place] [address]Dr. Jaz Barajas UA PROTEIN Negative Normal NEGATIVE/ TRACE The [facility] Comment on above: Performed By: #### E RUR, PREGU ####[facility] [address] [place], [place] [address]Dr. Jaz Barajas UR MICRO IND NOT INDICATED Normal [facility] Comment on above: Performed By: #### E RUR, PREGU ####[facility] [address] [place], [place] [address]Dr. Jaz Barajas Urobilinogen Qn (U) 0.2 {Oxana'U}/dL Normal 0.2 - 1.0 The [facility] Comment on above: Performed By: #### E RUR, PREGU ####[facility] [address] [id number]. Jaz Barajas URon 04-18-2022 , QUAL Negative Normal NEGATIVE [facility] Comment on above: Performed By: #### E RUR, PREGU ####[facility] [address] [id number] Barajas 17-[place] PROGESTERONE, LC/MSon 04-05-2022 17-OH Progesterone LCMS 43 ng/dL Normal [facility] Comment on above: Result Comment: Adul t Female Follicular 15 - 70 Luteal 35 - 290 Performed By: #### P ROGLCM #### [facility] [address] [address] [address] Jaz Barajas ANDROSTENEDINE LC/MSon 04-05 Androstenedione LCMS 111 ng/dL Normal 41-262 [facility] Comment on above: Result Comment: This test was developed and its performance characteristics determined by [facility]. It has not been cleared or approved by the Food and Drug Administration. Performed By: #### A NDROST #### [facility] [address] [address] [address] Jaz Barajas TESTOSTERONE, TOTALon 2021 Testosterone [Mass/Vol] 70 ng/dL Critically high 8-60 [facility] Comment on above: Performed By: #### T ESTTOT ####[facility] [address] [id number]. Jaz Barajas PROF CHEM 8 (BAS METB)on Anion gap [Moles/Vol] 11.5 mmol/L Normal [facility] Comment on above: Performed By: #### B MP ####[facility] [address] [id number] Barajas Calcium [Mass/Vol] 9.1 mg/dL Normal 8.5-10.[address] [facility] Comment on above: Performed By: #### B MP ####[facility] [address] [id number]. Jaz Barajas Chloride [Moles/Vol] 103 mmol/L Normal 98-107 [facility] Comment on above: Performed By: #### B MP ####[facility] [address] [address]Dr. Hannahisela Barajas CO2 [Moles/Vol] 28.0 mmol/L Normal 21.0-32.0 [facility] Comment on above: Performed By: #### B MP ####[facility] [address] [place], [place] [address]Dr. Hannahisela Karl Creatinine [Mass/Vol] 0.74 mg/dL Normal 0.55-1.02 [facility] Comment on above: Performed By: #### B MP ####[facility] [address] [place], [place] [address]Dr. Hannahisela Karl EGFR-AF ARMENIAN >60 Normal >=60 [facility] Comment on above: Performed By: #### B MP ####[facility] [address] [place], [place] [address]Dr. Hannahisela Karl EGFR-NON AF ARMENIAN >60 Normal >=60 [facility] Comment on above: Performed By: #### B MP ####[facility] [address] [place], [place] [address]Dr. Hannahisela Karl Glucose [Mass/Vol] 197 mg/dL Critically high 74-106 [facility] Comment on above: Performed By: #### B MP ####[facility] [address] [place], [place] [address]Dr. Jaz Barajas Potassium [Moles/Vol] 4.5 mmol/L Normal 3.5-5.1 [facility] Comment on above: Performed By: #### B MP ####[facility] [address] [place], [place] [address]Dr. Jaz Barajas Sodium [Moles/Vol] 138 mmol/L Normal 136-145 [facility] Comment on above: Performed By: #### B MP ####[facility] [address] [place], [place] [address]Dr. Jaz Barajas Urea nitrogen [Mass/Vol] 11.0 mg/dL Normal 7.0-18.0 [facility] Comment on above: Performed By: #### B MP ####[facility] [address] [address]Dr. Jaz Barajas Urea nitrogen/Creatinin e [Mass ratio] 14.9 mg/mg Normal [facility] Comment on above: Performed By: #### B MP ####[facility] [address] [address]Dr. Jaz Barajas XR ABD FLAT_UPon 02-06-2022 XR [...] JOSE EDUARDO RIVERS Date: 2022-02-06 17:[address] [facility] CREATININEon 01-31-2022 Creatinine [Mass/Vol] 0.74 mg/dL Normal 0.55-1.02 [facility] Comment on above: Performed By: #### P ROGLCM #### [facility] [address] [place] [address] Dr. Jaz Barajas EGFR-AF ARMENIAN >60 Normal >=60 [facility] Comment on above: Performed By: #### P ROGLCM #### [facility] [address] [place] [address] Dr. Jaz Barajas EGFR-NON AF ARMENIAN >60 Normal >=60 [facility] Comment on above: Performed By: #### P ROGLCM #### [facility] [address] [place] [address] ABDOMEN W CONon [...] JEYSON BLANTON Date: 2022-01-31 18:16 Normal [facility] ACETONE SERUMon 01-09-2022 ACETONE Negative Normal NEGATIVE [facility] Comment on above: Performed By: #### A CETON ####[facility] [address] [address]Dr. Jaz Barajas CARDIAC BISI ADMITon 022 CK [Catalytic activity/Vol] 58 U/L Normal 26-192 [facility] Comment on above: Performed By: #### P REGU #### [facility] [address] [address] [address] Jaz Barajas CK.MB [Mass/Vol] 0.64 ng/mL Normal <=3.60 [facility] Comment on above: Performed By: #### P REGU #### [facility] [address] [address] [address] Jaz Barajas HSTROP 5.3 pg/mL Normal 4.0-51.3 [facility] Comment on above: Result Comment: CUT- OFF POINTS HAVE BEEN ESTABLISHED BASED ON THE FOURTH UNIVERSAL DEFINITIONS OF MYOCARDIAL INFARCTION. THE UPPER REFERENCE LIMIT (URL) OF TROPONIN, DEFINED THE 99TH PERCENTILE OF cTnI DISTRIBUTION IN A REFERENCE POPULATION, HAS BEEN CONFIRMED THE DECISION THRESHOLD FOR [place] DIAGNOSIS. Performed By: #### P REGU #### [facility] [address] [place] [address] Dr. Jaz Barajas WAI 30 ng/mL Normal 9-82 [facility] Comment on above: Performed By: #### P REGU #### [facility] [address] [place] [address] Dr. Jaz Barajas CBC AUTO DIFFon 01-09-2022 BASO # 0.1 103/ul Normal 0.0-0.1 [facility] Comment on above: Performed By: #### P REGU #### [facility] [address] [place] [address] Dr. Jaz Barajas Basophils/100 WBC (Bld) 0.5 % Normal 0.2-2.0 [facility] Comment on above: Performed By: #### P REGU #### [facility] [address] [place] [address] Dr. Jaz Barajas EO # 0.3 103/ul Normal 0.0-0.7 [facility] Comment on above: Performed By: #### P REGU #### [facility] [address] [place] [address] Dr. Jaz Barajas Eosinophils/100 WBC (Bld) 2.5 % Normal 0.9-7.0 [facility] Comment on above: Performed By: #### P REGU #### [facility] [address] [place] [address] Dr. Jaz Barajas Erythrocyte distribution width (RBC) [Ratio] 12.8 % Normal 11.0-15.0 [facility] Comment on above: Performed By: #### P REGU #### [facility] [address] [place] [address] Dr. Jaz Barajas Hematocrit (Bld) [Volume fraction] 41.0 % Normal 36.0-48.0 [facility] Comment on above: Performed By: #### P REGU #### [facility] [address] [place] [address] Dr. Jaz Barajas Hemoglobin (Bld) [Mass/Vol] 13.6 g/dL Normal 12.0-16.0 [facility] Comment on above: Performed By: #### P REGU #### [facility] [address] [place] [address] Dr. Jaz Barajas IG # 0.03 10e3/ul Normal 0.00-0.03 [facility] Comment on above: Performed By: #### P REGU #### [facility] [address] [place] [address] Dr. Jaz Barajas IG % 0.3 % Normal 0.0-0.5 [facility] Comment on above: Performed By: #### P REGU #### [facility] [address] [place] [address] Dr. Jaz Barajas LYMPH # 2.7 103/ul Normal 1.2-3.8 [facility] Comment on above: Performed By: #### P REGU #### [facility] [address] [place] [address] Dr. Jaz Barajas Lymphocytes/100 WBC (Bld) 25.7 % Normal 20.5-60.0 [facility] Comment on above: Performed By: #### P REGU #### [facility] [address] [place] [address] Dr. Jaz Barajas MANUAL DIFF REQ NO Normal [facility] Comment on above: Performed By: #### P REGU #### [facility] [address] [place] [address] Dr. Jaz Barajas MCH (RBC) [Entitic mass] 27.7 pg Normal 26.7-34.0 [facility] Comment on above: Performed By: #### P REGU #### [facility] [address] [place] [address] Dr. Jaz Barajas MCHC (RBC) [Mass/Vol] 33.2 g/dL Normal 29.9-35.2 [facility] Comment on above: Performed By: #### P REGU #### [facility] [address] [place] [address] Dr. Jaz Barajas MCV (RBC) [Entitic vol] 83.5 fL Normal 81.0-99.0 [facility] Comment on above: Performed By: #### P REGU #### [facility] [address] [place] [address] Dr. Jaz Barajas MONO # 0.8 103/ul Normal 0.3-0.8 [facility] Comment on above: Performed By: #### P REGU #### [facility] [address] [place] [address] Dr. Jaz Barajas Monocytes/100 WBC (Bld) 7.4 % Normal 1.7-12.0 [facility] Comment on above: Performed By: #### P REGU #### [facility] [address] [place] [address] Dr. Jaz Barajas NEUT # 6.6 103/ul Critically high 1.4-6.5 [facility] Comment on above: Performed By: #### P REGU #### [facility] [address] [place] [address] Dr. Jaz Barajas Neutrophils/100 WBC (Bld) 63.6 % Normal 43.0-75.0 [facility] Comment on above: Performed By: #### P REGU #### [facility] [address] [place] [address] Dr. Jaz Barajas Platelet mean volume (Bld) [Entitic vol] 11.5 fL Normal 9.5-13.5 [facility] Comment on above: Performed By: #### P REGU #### [facility] [address] [place] [address] Dr. Jaz Barajas PLT 227 103/ul Normal 150-450 [facility] Comment on above: Performed By: #### P REGU #### [facility] [address] [place] [address] Dr. Jaz Barajas RBC 4.91 106/ul Normal 4.20-5.40 [facility] Comment on above: Performed By: #### P REGU #### [facility] [address] [place] [address] Dr. Jaz Barajas WBC 10.4 103/ul Normal 4.0-11.0 [facility] Comment on above: Performed By: #### P REGU #### [facility] [address] [address] [address] Jaz Barajas CTA CHEST WO W [...] JEYSON BLANTON Date: 2022-01-09 09:47 Normal [facility] D-DIMERon 01-09-2022 D-DIMER 0.56 mg/L FEU Critically high 0.19-0.[address] [facility] Comment on above: Result Comment: test repeated critical value verified Performed By: #### D DIM, PT, PTT #### [facility] [address] [address] [address] Jaz Barajas D-DIMER COMMENTS SEE BELOW Normal [facility] Comment on above: Result Comment: Incr [...] By: #### D DIM, PT, PTT #### [facility] [address] [address] [address] Jaz SENA URINE PROFILEon 2 Bilirubin Ql (U) Negative Normal NEGATIVE [facility] Comment on above: Performed By: #### P ROGLCM #### [facility] [address] [place] [address] Dr. Jaz Barajas Clarity (U) CLEAR Normal CLEAR [facility] Comment on above: Performed By: #### P ROGLCM #### [facility] [address] [place] [address] Dr. Jaz Barajas Color (U) YELLOW Normal YELLOW [facility] Comment on above: Performed By: #### P ROGLCM #### [facility] [address] [place] [address] Dr. Jaz Barajas ERUGARETT A micrscopic examina tion will be performed if indicated. Normal [facility] Comment on above: Performed By: #### P ROGLCM #### [facility] [address] [place] [address] Dr. Jaz Barajas Glucose Ql (U) 500 mg/dl Abnormal NEGATIVE [facility] Comment on above: Performed By: #### P ROGLCM #### [facility] [address] [place] [address] Dr. Jaz Barajas Hemoglobin Ql (U) Negative Normal NEGATIVE [facility] Comment on above: Performed By: #### P ROGLCM #### [facility] [address] [place] [address] Dr. Jaz Barajas Ketones Ql (U) Negative Normal NEGATIVE [facility] Comment on above: Performed By: #### P ROGLCM #### [facility] [address] [place] [address] Dr. Jaz Barajas LEUKOCYTES Negative Normal NEGATIVE [facility] Comment on above: Performed By: #### P ROGLCM #### [facility] [address] [place] [address] Dr. Jaz Barajas Nitrite Ql (U) Negative Normal NEGATIVE [facility] Comment on above: Performed By: #### P ROGLCM #### [facility] [address] [address] [address] Jaz Barajas pH (U) 6.0 [pH] Normal 5-9 [facility] Comment on above: Performed By: #### P ROGLCM #### [facility] [address] [address] [address] Jaz Barajas SPEC GRAVITY >=1.030 Abnormal 1.005-<=1.[address] [facility] Comment on above: Performed By: #### P ROGLCM #### [facility] [address] [place] [address] Dr. Jaz Barajas UA PROTEIN Negative Normal NEGATIVE/ TRACE [facility] Comment on above: Performed By: #### P ROGLCM #### [facility] [address] [address] [address] Jaz Barajas UR MICRO IND NOT INDICATED Normal [facility] Comment on above: Performed By: #### P ROGLCM #### [facility] [address] [address] [address] Jaz Barajas Urobilinogen Qn (U) 0.2 {Oxana'U}/dL Normal 0.2 - 1.0 [facility] Comment on above: Performed By: #### P ROGLCM #### [facility] [address] [address] [address] Jaz Barajas PH VENOUS BLOODon 01-09-2022 PCO2 VENOUS 39.2 mmHg Critically low 40.0-52.0 [facility] Comment on above: Performed By: #### P HVEN #### [facility] [address] [address] [address] Jaz Barajas pH VENOUS 7.409 Normal 7.330-7.430 [facility] Comment on above: Performed By: #### P HVEN #### [facility] [address] [address] [address] Jaz Barajas URon 01-09-2022 , QUAL Negative Normal NEGATIVE [facility] Comment on above: Performed By: #### P REGU #### [facility] [address] [address] [address] Jaz Barajas PROF 14(COMP METB)on 022 Albumin [Mass/Vol] 3.2 g/dL Critically low 3.4-5.[address] [facility] Comment on above: Performed By: #### P REGU #### [facility] [address] [address] [address] Jaz Barajas Albumin/Globulin [Mass ratio] 0.8 {ratio} Normal [facility] Comment on above: Performed By: #### P REGU #### [facility] [address] [address] [address] Jaz Barajas ALP [Catalytic activity/Vol] 109 U/L Normal 46-116 [facility] Comment on above: Performed By: #### P REGU #### [facility] [address] [place] [address] Dr. Jaz Barajas ALT [Catalytic activity/Vol] 95 U/L Critically high 14-59 [facility] Comment on above: Performed By: #### P REGU #### [facility] [address] [place] [address] Dr. Jaz Barajas Anion gap [Moles/Vol] 11.7 mmol/L Normal [facility] Comment on above: Performed By: #### P REGU #### [facility] [address] [address] [address] Jaz Barajas AST [Catalytic activity/Vol] 44 U/L Critically high 15-37 [facility] Comment on above: Performed By: #### P REGU #### [facility] [address] [address] [address] Jaz Barajas Bilirubin [Mass/Vol] 0.3 mg/dL Normal 0.2-1.0 [facility] Comment on above: Performed By: #### P REGU #### [facility] [address] [place] [address] Dr. Jaz Barajas Calcium [Mass/Vol] 8.8 mg/dL Normal 8.5-10.[address] [facility] Comment on above: Performed By: #### P REGU #### [facility] [address] [address] [address] Jaz Barajas Chloride [Moles/Vol] 102 mmol/L Normal 98-107 [facility] Comment on above: Performed By: #### P REGU #### [facility] [address] [address] [address] Jaz Barajas CO2 [Moles/Vol] 25.3 mmol/L Normal 21.0-32.0 [facility] Comment on above: Performed By: #### P REGU #### [facility] [address] [place] [address] Dr. Jaz Barajas Creatinine [Mass/Vol] 0.86 mg/dL Normal 0.55-1.02 [facility] Comment on above: Performed By: #### P REGU #### [facility] [address] [place] [address] Dr. Jaz Barajas EGFR-AF ARMENIAN >60 Normal >=60 [facility] Comment on above: Performed By: #### P REGU #### [facility] [address] [place] [address] Dr. Jaz Barajas EGFR-NON AF ARMENIAN >60 Normal >=60 [facility] Comment on above: Performed By: #### P REGU #### [facility] [address] [place] [address] Dr. Jaz Barajas Globulin (S) [Mass/Vol] 3.9 g/dL Normal [facility] Comment on above: Performed By: #### P REGU #### [facility] [address] [place] [address] Dr. Jaz Barajas Glucose [Mass/Vol] 230 mg/dL Critically high 74-106 [facility] Comment on above: Performed By: #### P REGU #### [facility] [address] [place] [address] Dr. Jaz Barajas Potassium [Moles/Vol] 4.0 mmol/L Normal 3.5-5.1 [facility] Comment on above: Performed By: #### P REGU #### [facility] [address] [place] [address] Dr. Jaz Barajas Protein [Mass/Vol] 7.1 g/dL Normal 6.4-8.2 [facility] Comment on above: Performed By: #### P REGU #### [facility] [address] [place] [address] Dr. Jaz Barajas Sodium [Moles/Vol] 135 mmol/L Critically low 136-[address] [facility] Comment on above: Performed By: #### P REGU #### [facility] [address] [place] [address] Dr. Jaz Barajas Urea nitrogen [Mass/Vol] 15.0 mg/dL Normal 7.0-18.0 [facility] Comment on above: Performed By: #### P REGU #### [facility] [address] [place] [address] Dr. Jaz Barajas Urea nitrogen/Creatinin e [Mass ratio] 17.4 mg/mg Normal [facility] Comment on above: Performed By: #### P REGU #### [facility] [address] [place] [address] Dr. Jaz Barajas PROTIMEon 01-09-2022 INR Coag (PPP) [Relative time] 0.96 {INR} Normal [facility] Comment on above: Performed By: #### D DIM, PT, PTT #### [facility] [address] [place] [address] Dr. Jaz Barajas INR GUIDELINES SEE BELOW Normal [facility] Comment on above: Result Comment: UMU RED INR: 2.0 - 3.0 CONDITIONS NOT LISTED BELOW 2.5 - 3.5 FOR PROSTHETIC HEART VALVE REPLACEMENT 2.5 - 3.5 RECURRENT THROMBOSIS Performed By: #### D DIM, PT, PTT #### [facility] [address] [place] [address] Dr. Jaz Barajas PT Coag (PPP) [Time] 10.4 s Normal 9.0-11.6 [facility] Comment on above: Performed By: #### D DIM, PT, PTT #### [facility] [address] [address] [address] Jaz Barajas PTTon 01-09-2022 aPTT Coag (Bld) [Time] 28.8 s Normal 22.3-36.2 [facility] Comment on above: Performed By: #### D DIM, PT, PTT #### [facility] [address] [place] [address] Dr. Jaz Barajas TROPONIN, HIGH SENSITIVITYon 01-09-2022 HSTROP 4.5 pg/mL Normal 4.0-51.3 [facility] Comment on above: Result Comment: CUT- OFF POINTS HAVE BEEN ESTABLISHED BASED ON THE FOURTH UNIVERSAL DEFINITIONS OF MYOCARDIAL INFARCTION. THE UPPER REFERENCE LIMIT (URL) OF TROPONIN, DEFINED THE 99TH PERCENTILE OF cTnI DISTRIBUTION IN A REFERENCE POPULATION, HAS BEEN CONFIRMED THE DECISION THRESHOLD FOR [place] DIAGNOSIS. Performed By: #### P ROGLCM #### [facility] [address] [place] [address] Dr. Jaz Barajas TSHon 01-09-2022 TSH 2.769 uIU/mL Normal 0.358-3.740 [facility] Comment on above: Performed By: #### P REGU #### [facility] [address] [place] [address] Dr. Jaz Barajas TSH RANGE SEE BELOW Normal [facility] Comment on above: Result Comment: <0.3 4 UIU/ml HYPERTHYROID 0.34-5.60 UIU/ml EUTHYROID >5.60 UIU/ml HYPOTHYROID Performed By: #### P REGU #### [facility] [address] [place] [address] Dr. Jaz Barajas XR CHEST 1 Von [...] JOSE EDUARDO RIVERS Date: 2022-01-09 08:[address] [facility] Vital Signs Date Time Vital Sign Value Performing Clinician Howard girard 11-27-2023 12:54-0400 Body temperature 97.88 [degF] Rikychristian Le [facility] 11-27-2023 12:54-0400 Diastolic blood pressure 86 mm[Hg] Riky Rey [facility] 11-27-2023 12:54-0400 Heart rate 78 /min Riky Le [facility] 11-27-2023 12:54-0400 Respiratory rate 20 /min Riky Rey [facility] 11-27-2023 12:54-0400 SaO2% (BldA) [Mass fraction] 98 % Rikychristian Le [facility] 11-27-2023 12:54-0400 Systolic blood pressure 133 mm[Hg] Riky Le [facility] Encounters Encounter Date Encounter Type Care Provider Facility Start: 05-30-2024 End: 06-03-2024 Clinisync Result Encounter Generic External Data Provider [facility] Unsolicited Start: 05-30-2024 End: 06-03-2024 Clinisync Result Encounter Generic External Data Provider [facility] External [facility] Unsolicited Start: 05-11-2024 End: 05-11-2024 ambulatory MIRELA A FELTER Not Available Start: 04-29-2024 End: 04-29-2024 ambulatory MIRELA A FELTER Not Available Start: 03-16-2024 End: 03-16-2024 ambulatory ARIANE AICHHOLZ Not Available Start: 02-02-2024 End: 02-02-2024 ambulatory Rush Garcia MD Facility:[facility] Start: 01-15-2024 End: 01-15-2024 ambulatory ARIANE AICHHOLZ Not Available Start: 12-25-2023 End: 12-25-2023 ambulatory ARIANE AICHHOLZ Not Available Start: 11-27-2023 End: 11-27-2023 Emergency department patient visit Riky Le Facility:[facility] Start: 11-27-2023 End: 11-27-2023 Emergency department patient visit Riky Le [facility] Start: 12-14-2022 End: 12-15-2022 ambulatory BOTTOM PAINTER ARIANE AICHHOLZ Facility:[facility] Start: 12-11-2022 End: 12-12-2022 ambulatory BOTTOM PAINTER ARIANE AICHHOLZ Facility:[facility] Start: 11-15-2022 End: 11-15-[address] SKY DAVIS . Facility:[facility] Start: 11-10-2022 End: 11-10-[address] QUANG LANDA . Facility:[facility] Start: 08-18-2022 End: 08-18-2022 ambulatory GABINO CARROLL . Facility:[facility] Start: 07-09-2022 End: 07-09-[address] SKY DAVIS . Facility:[facility] Start: 05-14-2022 End: 05-14-2022 ambulatory BOTTOM PAINTER ARIANE AICHHOLZ Facility:[facility] Start: 05-13-2022 Encounter for preprocedural laboratory examination DR ROSA APONTE [facility] Start: 05-08-2022 End: 05-09-[address] ROSA APONTE Facility:[facility] Start: 05-08-2022 End: 05-09-2022 Encounter for preprocedural laboratory examination DR ROSA APONTE Facility:[facility] Start: 04-18-2022 End: 04-18-2022 ambulatory BOTTOM PAINTER ARIANE AICHHOLZ Facility:[facility] Start: 04-01-2022 End: 04-02-2022 ambulatory BOTTOM PAINTER ARIANE AICHHOLZ Facility:[facility] Start: 02-06-2022 End: 02-07-2022 ambulatory BOTTOM PAINTER ARIANE AICHHOLZ Facility:[facility] Start: 01-31-2022 End: 02-01-2022 ambulatory AMINATA BOURGEOIS Facility:[facility] Start: 01-24-2022 ambulatory BOTTOM PAINTER ARIANE AICHHOLZ Facil ity:[facility] Start: 01-09-2022 End: 01-09-2022 ambulatory GABINO CARROLL . Facility: Procedures Date Procedure Procedure Detail Performing Clinician Start: 05-30-2024 UPPER RESPIRATORY CULTURE Generic Partner al Data Provider Start: 06-20-2020 Microscopic observation [Identifier] in Cervix by Cyto stain Generic Provider Start: 12-04-2016 Colonoscopy Riky Le Comment on [...] Tympanic ventilation tube (physical object) Riky Le Plan of Treatment Date Care Activity Detail Author Start: 01-06-2025 Urine screening for protein Diabetes: Urine Protein Screening [facility] Start: 08-10-2024 End: 08-10-2024 Patient encounter procedure 08/10/2024 3:40 PM EST Office Visit [facility] [address] [place] [address] Mirela Owens, WOOL TAMPER-BOTTOM PAINTER [address] [place] [address] [facility] Start: 06-16-2024 End: 06-16-2024 Patient encounter procedure 06/16/2024 5:00 PM EDT Procedure Visit [facility] [address] [place] [id number] Ariane Wells NP [address] [place] [id number] [facility] Start: 04-08-2024 Hemoglobin A1c measurement Diabetes: Hemoglobin A1C [facility] Start: 06-20-2023 Screening for malign ant neoplasm of cervix [facility] Start: 2018 Screening for malign ant neoplasm of cervix HPV/Cotest [facility] Start: 1998 Glaucoma screening Diabetes: R etinopathy Screening [facility] Immunizations Immunization Date Immunization Notes Care Provider Fa cility 08-20-2021 Moderna SARS-CoV-2 Vaccination Generic Provider [facility] Payers Date Payer Category Payer Medicaid [id number] 2023 Unknown 2022 Medicaid [place] [id number] 2022-Present [address] [place] [address] [id number] 2022 Medicaid [id number] 1988 Unknown [id number] [id number]3 1988 Unknown [id number] 2.16.840.1.266398.3.579.2.593 1988 Unknown [id number] 2.16.840.1.598925.3.579.2.593 1988 Unknown [id number] 2.16.840.1.314394.3.579.2.593 1988 Unknown [id number] 2.16.840.1.561433.3.579.2.593 1988 Unknown [id number] 2.16.840.1.778449.3.579.2.593 1988 Unknown [id number] 2.16.840.1.091854.3.579.2.593 1988 Unknown [id number] 2.16.840.1.708233.3.579.2.593 1988 Unknown [id number] 2.16.840.1.629588.3.579.2.593 1988 Unknown [id number] 2.16.840.1.577069.3.579.2.593 1988 Unknown [id number] 2.16.840.1.674420.3.579.2.593 1988 Unknown [id number] 2.16.840.1.342338.3.579.2.593 1988 Unknown [id number] 2.16.840.1.319657.3.579.2.593 1988 Unknown [id number] 2.16.840.1.861960.3.579.2.727 1988 Unknown [id number] 2.16.840.1.614181.3.579.2.196 1988 Unknown [id number] 2.16.840.1.142193.3.579.2.1259 1988 Unknown [id number] 2.16.840.1.843519.3.579.2.1259 1988 Unknown [id number] 2.16.840.1.314922.3.579.2.1259 1988 Unknown [id number] 2.16.840.1.287733.3.579.2.1259 1988 Unknown [id number] 2.16.840.1.364789.3.579.2.1259 1959 Unknown [id number] 1959 Unknown [id number] Social History Date Type Detail Facility Start: 02-20-2022 Tobacco smoking status Heavy t obacco smoker (finding) [facility] Tobacco smoking status Never [facility] Start: 03-16-2024 End: 05-11-2024 [facility] Start[facility] 12-25-[facility]23 [facility] Start: 12-25-2023 Tobacco use and exposure Smokeless tobacco non-user [facility] Start: 05-11-2024 Alcoholic beverage intake Ex-drinker (finding) [facility] Start: 03-16-2024 End: 05-11-2024 History of Social function [facility] Start: 12-25-2023 Alcohol Comment caffine: coffe e: 20oz and soda: 1.5L bottle daily [facility] Start: 1988 Sex assigned at Not on file N [facility] Medical Equipment Procedure Code Equipment Code Equipment Origin al Text Equipment Identifier Dates [id number] Start: 01-28-2023 End: 03-16-2025 Functional Status Date Assessment Result Facility 11-27-2023 Functional Status N/A [facility] Discharge instructions 11-27-2023 Note Date & [...] to strengthen the arm. General instructions Take [id number] and prescription medicines only as told by [...] provider. Document Revised: 05/03/2022 Document Reviewed: 05/03/2022 [employer] Patient Education 2022 [employer] 911. Follow Up Care 11/27/2023 12:54:30 With:Georgi Pfeiffer Address: [address] [place] [phone] (1) When:11/30/2023 15:21:31 [facility] Evaluation + Plan note 11-27-2023 Note [...] EDT, Weight Dosing XR Shoulder Complete Right [facility] Clinical Note 12-16-2022 Note Date & [...] authenticated by: HAYDE VAN Date: 2022-12-16 07:21 [facility] Clinical Note 12-16-2022 Note Date & [...] authenticated by: HAYDE VAN Date: 2022-12-16 07:17 [facility] Clinical Note 05-14-2022 Note Date & [...] the recovery room in good condition. [facility] course Narrative Note Date & Type Note Facility Hospital course Narrative No data available for this section [facility] Progress note Note Date & Type Note Facility Progress note No data available for this section [facility] Summary Purpose Family History No Family History Records Found No data available for this section No Family History Records FoundNo Family History Records FoundNo Family History Records Found Advance Directives No Advanced Directives Records FoundNo Advanced Directives Records FoundNo Advanced Directives Records FoundNo Advanced Directives Records Found Additional Source Comments INFORMATION SOURCE (unrecogn ized section and content) DATE CREATED AUTHOR 12/19/2022 [facility] DATE CREATED AUTHOR AUTHOR'S ORGANIZ ATION 11/29/2023 [facility] DATE CREATED AUTHOR AUTHOR'S ORGANIZ ATION 02/13/2024 [facility] DATE CREATED AUTHOR AUTHOR'S ORGANIZ ATION 05/13/2024 [facility] EPIC Patient Care team informatio n (unrecognized section and content) [place] Relationship Specialty Start Date End Date Georges Shook MD [address] [place] [address] PCP - General Family Medicine 02/19/23 Channing Freire MD [address] [place] [address] PCP - DELANEY Still [facility] 12/01/23 FOR RECORDS PERTAINING TO PATIENTS WHO ARE [...] BE BASED ON THE PRIMARY CLINICAL RECORDS. [facility] [employer] [facility]. provides no warranty or guarantee of the accuracy or completeness of information in this document.
[2024-06-23 13:09] LABS: Age Gdln ACOG Testing Note (.); HPV Aptima Negative (Negative); IGP, Aptima HPV, rfx 16/18,45 Note (.)
== END 2024-06-16 20:17 | disposition home or self-care (01) ==
LOC: LAB 20:16
PROVIDERS: PCP Nurse Practitioner; Visit Provider Nurse Practitioner
DX: Z01.419 Encounter for gynecological examination (general) (routine) without abnormal findings (principal)
CPT/HCPCS: 87624; 88175

== ENCOUNTER 2024-09-12 18:38 | Emergency (ER) | payer SELFPAY ==
--- OUTSIDE RECORDS SUMMARY | 2024-09-12 18:44 | XMS_ITS | CCD ---
Author Organization [facility] Care Team Providers Care Commercial Energy Auditor Name Role Phone AICHHOLZ, FLATBED OWNER OPERATOR ARIANE Attending Unavailable AICHHOLZ, FLATBED OWNER OPERATOR ARIANE Admitting Unavailable AICHHOLZ, FLATBED OWNER OPERATOR ARIANE Primary Care Unavailable JOSE EDUARDO RIVERS V Consulting Unavailable AICHHOLZ, FLATBED OWNER OPERATOR ARIANE Consulting Unavailable TIMMIS, DR MEJIA Consulting Unavailable AICHHOLZ, FLATBED OWNER OPERATOR ARIANE Primary Care Unavailable TIMMIS, DR MEJIA Attending Unavailable TIMMIS, DR MEJIA Admitting Unavailable BRIGGS, MAGDI Consulting Unavailable PAY ., DR SWANSON Admitting Unavailable PAY ., DR SWANSON Consulting Unavailable AICHHOLZ, FLATBED OWNER OPERATOR ARIANE Primary Care Unavailable PAY ., DR SWANSON Attending Unavailable AICHHOLZ, FLATBED OWNER OPERATOR ARIANE Primary Care Unavailable KAITLIN, DR KLAUDIA Kay Attending Unavailabl e REINECK, DR KLAUDIA Kay Admitting Unavailabl e REINMONA, DR KLAUDIA Kay Consulting Unavailabl e JEYSON BLANTON Consulting Unavailable AICHHOLZ, FLATBED OWNER OPERATOR ARIANE Primary Care Unavailable GLEN .GABINO Attending Unavailable GLEN ., GABINO Admitting Unavailable AICHHOLZ, FLATBED OWNER OPERATOR ARIANE Primary Care Unavailable JOSE EDUARDO RIVERS V Consulting Unavailable JEYSON BLANTON Consulting Unavailable GLEN .GABINO Consulting Unavailable PAY ., DR SWANSON Admitting Unavailable PAY ., DR SWANSON Consulting Unavailable AICHHOLZ, FLATBED OWNER OPERATOR ARIANE Primary Care Unavailable PAY ., DR SWANSON Attending Unavailable GERALDINE LAZAR Consulting Unavailable HAY ., DR DEL RIO Attending Unavailable HAY ., DR DEL RIO Admitting Unavailable AICHHOLZ, FLATBED OWNER OPERATOR ARIANE Primary Care Unavailable HAY ., DR DEL RIO Consulting Unavailable GLEN .GABINO Attending Unavailable GLEN ., GABINO Admitting Unavailable AICHHOLZ, FLATBED OWNER OPERATOR ARIANE Primary Care Unavailable DONTRELL DIAZ Consulting Unavailable GLEN .GABINO Consulting Unavailable JOSE EDUARDO RHODES Consulting Unavailable AICHHOLZ, FLATBED OWNER OPERATOR ARIANE Referring Unavailable AICHHOLZ, FLATBED OWNER OPERATOR ARIANE Primary Care Unavailable YUKI, AHMAD Attending Unavailable YUKI, AHMAD Admitting Unavailable YUKI, AHMAD Consulting Unavailable AICHHOLZ, FLATBED OWNER OPERATOR ARIANE Consulting Unavailable AICHHOLZ, FLATBED OWNER OPERATOR ARIANE Attending Unavailable AICHHOLZ, FLATBED OWNER OPERATOR ARIANE Admitting Unavailable AICHHOLZ, FLATBED OWNER OPERATOR ARIANE Primary Care Unavailable HAYDE VAN Consulting Unavailable AICHHOLZ, FLATBED OWNER OPERATOR ARIANE Consulting Unavailable AICHHOLZ, FLATBED OWNER OPERATOR ARIANE Attending Unavailable AICHHOLZ, FLATBED OWNER OPERATOR ARIANE Admitting Unavailable AICHHOLZ, FLATBED OWNER OPERATOR ARIANE Primary Care Unavailable AMINATA BOURGEOIS Attending Unavailable BK, AMINATA Admitting Unavailable JEYSON BLANTON Consulting Unavailable AICHHOLZ, FLATBED OWNER OPERATOR ARIANE Primary Care Unavailable BK, AMINATA Consulting Unavailable AICHHOLZ, FLATBED OWNER OPERATOR ARIANE Primary Care Unavailable TIMMIS, DR MEJIA Consulting Unavailable TIMMIS, DR MEJIA Attending Unavailable TIMMIS, DR MEJIA Admitting Unavailable ELIDA COWAN Consulting Unava ilable AICHHOLZ, ARIANE J Primary Care Physician [phone] Riky Le Attending Unavailable Jose LEUNG, Rush Reid Attending Unavailable Georges Shook MD Primary Care Provider [phone] Channing Freire MD Unavailable [phone] AICHHOLZ, ARIANE Attending Unavailable AICHHOLZ, ARIANE Attending Unavailable AICHHOLZ, ARIANE Attending Unavailable JOANN OWENS Attending Unavailable AICHHOLZ, ARIANE Referring Unavailable JOANN OWENS Attending Unavailable AICHHOLZ, ARIANE Attending Unavailable Allergies Allergy Classification Reported Allergen(s) Allergy Type Date of Onset Reaction(s) Facility (2 sources) predniSONE; Translations: [predniSONE] Drug Allergy [address] [facility] Repository (1 source) predniSONE; Translations: [prednisone] Drug Allergy 0 Slurred speech (finding), Tremor (finding) [facility] (12 sources) Prednisone Propensity to adverse reactions 4 [facility] Work Phone: Medications Current Medications Medication Drug Class(es) Dates Sig (Normalized) Sig (Original) [id number] 200 actuat albuterol 0.09 mg/actuat metered dose inhaler (12 sources) beta2-Adrenergic Agonist take 2 puff(s) by inhalation every six hours for wheezing albuterol HFA 90 mcg/act inhaler Inhale 2 puffs every 6 (six) hours if needed for shortness of breath or wheezing Active ARIPiprazole 15 mg oral tablet (13 sources) Atypical Antipsychotic Start: 06-03-2023 take 1 tablet by mouth once daily ARIPiprazole (Abilify) 15 MG tablet Take 15 mg by mouth Daily 06/03/2023 Active Start: 01-25-2020 take 1 tablet by bev th once daily aripiprazole 5 mg Tab 5 mg = 1 tab(s), Oral, Daily, Refills(s) 0 Start Date: 01/25/20 Status: Ordered betamethasone 1 mg/ml topical cream (14 sources) Corticosteroid Start: 05-18-2024 betamethasone valerate (Valisone) [...] Active busPIRone hydrochloride 10 mg oral tablet (14 sources) Start: 06-03-2023 End: 07-16-2024 take 1 tablet by mouth in the morning, then take 1 tablet by mouth in the evening, then take 1 tablet by mouth at bedtime busPIRone (Buspar) 10 MG tablet Indications: Generalized anxiety disorder with panic attacks (CMS/HCC) Take 1 tablet (10 mg) by mouth in the morning and 1 tablet (10 mg) in the evening and 1 tablet (10 mg) before bedtime. 90 tablet 2 06/16/2024 07/16/2024 Active Start: 02-06-2022 busPIRone Refi lls(s) 0 Start Date: 02/06/22 Status: Ordered Calcium (1 source) Phosphate Binder, Calcium Start: 11-30-2019 take 1 tablet by mouth once daily Calcium 600+D 1 tab, Oral, Daily, Refill(s) 0 Start Date: 11/30/19 Status: Ordered clobetasol propionate 0.5 mg/ml topical cream (12 sources) Corticosteroid Start: 01-15-2024 clobetasol (Temovate) 0.05 % cream Indications: Granuloma annulare Apply topically Daily Apply to affected area once a day for up to 8 weeks. No use on face 45 g 01/15/2024 Active clotrimazole 10 mg/ml vaginal cream (1 source) Azole Antifungal Start: 05-26-2024 End: 06-02-2024 clotrimazole (Lotrimin) 1 % vaginal cream Indications: Candidiasis of vagina Insert 1 applicator into the vagina in the evening for 7 days 45 g 05/26/2024 06/02/2024 Active Continuous Glucose Sensor (FreeStyle Ksenia 2 Sensor) misc (12 sources) Start: 04-03-2023 Continuous Glucose Sensor (FreeStyle Ksenia 2 Sensor) misc CHANGE SENSOR EVERY 14 DAYS 04/03/2023 Active cyclobenzaprine hydrochloride 10 mg oral tablet (10 sources) Muscle Relaxant Start: 12-25-2023 take 1 tablet by mouth once, then take 0.5-1 tablets by mouth every twelve hours cyclobenzaprine (Flexeril) 10 MG tablet Indications: Muscle spasm Take 1 tablet (10 mg) by mouth every 12 (twelve) hours if needed for muscle spasms for up to 15 days May take 1/2-1 pill every 12 hours 30 tablet 12/25/2023 Active Jardiance (13 sources) Sodium-Glucose Cotransporter 2 Inhibitor Start: 02-06-2022 Jardiance Refills(s) 0 Start Date: 02/06/22 Status: Ordered take 25 mg by mouth once daily J ardiance 25 MG Take 25 mg by mouth Daily Active fluconazole 150 mg oral tablet (1 source) Azole Antifungal Start: 06-23-2024 fluconazole (Diflucan) 150 MG tablet Indications: Yeast infection Take one dose every 3 days for 3 doses 3 tablet 06/23/2024 Active FLUoxetine 20 mg oral capsule (20 sources) Serotonin Reuptake Inhibitor Start: 06-03-2023 take 1 capsule by mouth once daily FLUoxetine (PROzac) 20 MG capsule Take 20 mg by mouth Daily 06/03/2023 Active Start: 02-20-2022 take 1 capsule by mo [facility] once daily FLUoxetine 40 mg Cap 40 mg = 1 cap(s), Oral, Daily, Refills(s) 0 Start Date: 02/20/22 Status: Ordered gabapentin 100 mg oral capsule (12 sources) Anti-epileptic Agent Start: 02-02-2024 take 1 capsule [...] ml insulin lispro 100 unt/ml pen injector (12 sources) Insulin Analog insulin lispro (HumaLOG KWIKPEN) 100 UNIT/ML injection as directed Subcutaneous Active 3 ml insulin, regular, human 500 unt/ml pen injector (12 sources) Insulin Start: 11-01-2023 HumuLIN R U-500 KWIKPEN 500 UNIT/ML CONCENTRATED injection INJECT 80 UNITS TWICE A DAY PLUS ISS 15>150 (EXPECT DAILY DOSE 225 UNITS) 11/01/2023 Active Magnesium (12 sources) magnesium 250 MG tablet 1 (one) time each day at the same time Active magnesium oxide 250 mg oral tablet (1 source) Start: 11-30-2019 take 1 tablet by mouth once daily magnesium oxide 250 mg oral tablet 250 mg = 1 tab(s), Oral, Daily, Refills(s) 0 Start Date: 11/30/19 Status: Ordered 24 hr metFORMIN hydrochloride 500 mg extended release oral tablet (13 sources) Biguanide Start: 11-30-2019 take 2 tablets [...] day(s), # 18 tab(s), Refills(s) 0, Pharmacy: [facility], 160, cm, 11/27/23 12:59:00 EDT, Height/Length [...] pain, # 20 tab(s), Refills(s) 0, Pharmacy: [facility], 160, cm, 11/27/23 12:59:00 EDT, Height/Length Dosing, 114.1, kg, 11/27/23 12:59:00 EDT, Weight Dosing Start Date: 11/27/23 Status: Ordered pantoprazole 40 mg delayed release oral tablet (13 sources) Proton Pump Inhibitor Start: 11-30-2019 take 1 tablet by mouth once daily Pantoprazole [address] Tab 40 mg = 1 tab(s), Oral, Daily, Refills(s) 0 Start Date: 11/30/19 Status: Ordered pravastatin sodium 20 mg oral tablet (12 sources) HMG-CoA Reductase Inhibitor Start: 01-28-2023 take 1 tablet by mouth in the evening pravastatin (Pravachol) 20 MG tablet Take 20 mg by mouth in the evening 01/28/2023 Active spironolactone 50 mg oral tablet (12 sources) Aldosterone Antagonist take 1 tablet by mouth once daily spironolactone (Aldactone) 50 MG tablet Take 50 mg by mouth Daily Active tiZANidine 4 mg oral tablet (12 sources) Central alpha-2 Adrenergic Agonist Start: 03-03-2024 tiZANidine (Zanaflex) 4 MG tablet Take 4 mg by mouth 03/03/2024 Active traZODone hydrochloride 50 mg oral tablet (13 sources) Serotonin Reuptake Inhibitor Start: 11-30-2019 take [...] Problem Date Documented Date Episodic/Chronic Anxiety disorders (7 sources) Anxiety disorder, unspecified; Translations: [Generalized anxiety disorder] Onset: 01-09-2022 Chronic Attention-deficit, conduct, and disruptive behavior disorders (13 sources) Attention deficit hyperactivity disorder; Translations: [Attention-deficit hyperactivity disorder, unspecified type] Onset: 12-25-2023 11-30-2019 Chronic Diabetes mellitus with complications (6 sources) Type 2 diabetes mellitus with hyperglycemia; 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] Onset: 04-01-2022 Chronic Diabetes mellitus without complication (20 sources) Type 2 diabetes mellitus without complications; Translations: [Diabetes mellitus] Onset: 12-16-2022 Resolved: 03-16-2024 02-06-2022 Chronic Female infertility (13 sources) Female infertility; Translations: [Female infertility, unspecified] Onset: 12-25-2023 11-30-2019 Chronic Inflammatory diseases of female pelvic organs (4 sources) Abscess of vulva; Translations: [ABSCESS OF VULVA] Onset: 11-10-2022 Episodic Joint disorders and dislocations; trauma-related (1 source) Unspecified internal derangement of right knee; Translations: [UNS INTERNAL DERANGEMENT RIGHT KNEE] Onset: 07-10-2022 Chronic Mood disorders (20 sources) Bipolar disorder; Translations: [Depressive disorder] Onset: 12-25-2023 11-30-2019 Chronic Mycoses (9 sources) Candidiasis of vagina; Translations: [Candidiasis of vagina] Onset: 05-26-2024 05-26-2024 Episodic Nutritional deficiencies (18 sources) Vitamin D deficiency, unspecified; Translations: [Vitamin D deficiency] Onset: 04-04-2022 Chronic Other acquired deformities (1 source) Acquired deformity of ankle AND/OR foot 11-30-2019 Episodic Other aftercare (1 source) Other [place] [facility] (current) drug therapy; Translations: [OTH 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 WORKER 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 THERAPY] Onset: 11-19-2022 Episodic Other aftercare (1 source) long-term (current) use of oral hypoglycemic drugs; Translations: [LONGTERM USE ORAL 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 DX] Onset: 11-19-2022 Episodic Other aftercare (1 source) long-term (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; Translations: [RECEIVING WORKER CURRENT USE OF INSULIN] Onset: 11-11-2022 Episodic Other ear and sense organ disorders (12 sources) Conductive hearing loss, bilateral; Translations: [Conductive hearing loss, bilateral] Onset: 12-25-2023 12-25-2023 Chronic Other endocrine disorders (1 source) Polycystic ovarian syndrome; Translations: [POLYCYSTIC OVARIAN SYNDROME] Onset: 11-19-2022 Chronic Other endocrine disorders (13 sources) Polycystic ovary syndrome; Translations: [Polycystic ovarian syndrome] Onset: 12-25-2023 11-30-2019 Chronic Other female genital disorders (4 sources) Vaginal discharge; Translations: [Other specified noninflammatory disorders of vagina] Onset: 06-16-2024 06-16-2024 Episodic Other non-traumatic joint disorders (4 sources) Pain [...] Chronic Other nutritional; endocrine; and metabolic disorders (13 sources) Body mass index 40+ - severely obese; Translations: [Body mass index (BMI) 45.0-49.9, adult] Onset: 12-25-2023 02-20-2022 Chronic Other nutritional; endocrine; and metabolic disorders (14 sources) Severe obesity; Translations: [Class 3 severe obesity due to excess calories with body mass index (BMI) of 40.0 to 44.9 in adult] Onset: 12-25-2023 11-30-2019 Chronic Other screening for suspected conditions (not mental disorders or infectious disease) (1 source) Cancer cervix screening status; Translations: [Encounter for screening for malignant neoplasm of cervix] 06-16-2024 Episodic Residual codes; unclassified (1 source) Sleep apnea 11-30-2019 Chronic Residual codes; unclassified (12 sources) Obstructive sleep apnea syndrome; Translations: [Obstructive sleep apnea (adult) (pediatric)] Onset: 12-25-2023 12-25-2023 Chronic Spondylosis; intervertebral disc disorders; other back problems (13 sources) Degeneration of lumbar intervertebral disc; Translations: [...] Problem Date Documented Date Episodic/Chronic Abdominal hernia (17 sources) Umbilical hernia without obstruction or gangrene; Translations: [Umbilical hernia] Onset: 01-31-2022 Episodic Abdominal pain (4 sources) Unspecified abdominal pain; Translations: [UNSPECIFIED ABDOMINAL PAIN] Onset: 04-18-2022 Episodic Acquired foot deformities (13 sources) Osteochondral defect of talus; Translations: [Other specified acquired deformities of musculoskeletal system] Onset: 12-25-2023 11-30-2019 Episodic Fever of unknown origin (4 sources) Fever, unspecified; Translations: [FEVER UNSPECIFIED] Onset: 08-18-2022 Episodic Mood disorders (12 sources) Mood disorders Onset: 12-25-2023 12-25-2023 Nonspecific chest pain (1 source) Chest pain, unspecified; Translations: [CHEST PAIN UNSPECIFIED] Onset: 01-14-2022 Episodic Other acquired deformities (12 sources) Acquired deformity of right ankle; Translations: [Unspecified acquired deformity of right lower leg] Onset: 12-25-2023 12-25-2023 Episodic Other connective tissue disease (12 sources) Spasm; Translations: [Other muscle spasm] Onset: 12-25-2023 12-25-2023 Episodic Other connective tissue disease (12 sources) Foreign body granuloma of soft tissue; Translations: [Foreign body granuloma of soft tissue, not elsewhere classified, unspecified ankle and foot] Onset: 01-15-2024 Resolved: 01-15-2024 01-15-2024 Episodic Other inflammatory condition of skin (12 sources) Granuloma annulare; Translations: [Granuloma annulare] Onset: 01-15-2024 01-15-2024 Episodic Other skin disorders (1 source) Hirsutism; Translations: [HIRSUTISM] Onset: 04-04-2022 Episodic Other skin disorders (2 sources) Eruption; Translations: [Rash and other nonspecific skin eruption] 04-29-2024 Episodic Other upper respiratory infections (1 source) Acute upper respiratory infection, unspecified; Translations: [ACUTE UP RESPIRATORY INFECTION UNS] Onset: 08-20-2022 Episodic Otitis media and related conditions (17 sources) Other specified disorders of Eustachian tube, left ear; Translations: [Dysfunction of bilateral eustachian tubes] Onset: 05-13-2022 Episodic Residual codes; unclassified (13 sources) Insomnia; Translations: [Insomnia, unspecified] Onset: 12-25-2023 11-30-2019 Episodic Residual codes; unclassified (13 sources) Tobacco user; Translations: [Tobacco use] Onset: 12-25-2023 11-30-2019 Episodic Unclassified (1 source) LOW BACK PAIN, UNSPECIFIED; Translations: [LOW BACK PAIN, UNSPECIFIED] Onset: 11-15-2022 Results Test Name Value Interpretation Reference Range Facility IGP,APTIMA HPV,AGE GDLNon AGE GDLN ACOG TESTING Note . [facility] Comment on above: TESTS RESULT FLAG UN ITS REF RANGE LAB Clinician Provided Cytology Information Source.............Cervix;Endocervix No. of containers..01 ThinPrep Vial Age Algo ACOG Cristine... 63 01 FLAG LEGEND: L-Low Normal,H-High Normal,LL-Alert Low,HH-Alert High <-Panic Low,>-Panic High,A-Abnormal,AA-Critical Abnormal Performed at: [address] [place] [address] Francesca Alonzo MD, HPV APTIMA Negative Negative [facility] Comment on above: This nucleic acid am plification test detects fourteen high- risk HPV types (16,18,31,33,35,39,45,51,52,56,58,59,66,68) without differentiation. Performed at: = - [address] [id number] Scale Expert: Francesca Alonzo MD, Phone: [phone] Performed at: - [address] [id number] Scale Expert: Francesca Alonzo MD, Phone: [phone] IGP, APTIMA HPV, RFX 16/18,45 Note . [facility] Comment on above: TESTS RESULT FLAG UN ITS REF RANGE LAB DIAGNOSIS: 02 NEGATIVE FOR INTRAEPITHELIAL LESION OR MALIGNANCY. Specimen adequacy: 02 Satisfactory for evaluation. No endocervical component is identified. Performed by: Hien Smith, Airport Ramp Supervisor (ASCP) . 02 Note: Note 02 The Pap smear is a screening test designed to aid in the detection of premalignant and malignant conditions of the uterine cervix. It is not a diagnostic procedure and should not be used as the sole means of detecting cervical cancer. Both false-positive and false-negative reports do occur. Test Methodology: Note 02 This liquid based ThinPrep(R) pap test was screened with the use of an image guided system. HPV Genotype Reflex Note 02 Criteria not met, HPV Genotype not performed. FLAG LEGEND: L-Low Normal,H-High Normal,LL-Alert Low,HH-Alert High <-Panic Low,>-Panic High,A-Abnormal,AA-Critical Abnormal Performed at: [address] [place] [id number] Francesca Alonzo MD, BROOM-ALONE CERVIX ENDOCERVIX [facility] UPPER RESPIRATORY CULTUREon 06-03-2024 UPPER RESPIRATORY CULTURE Upper Respiratory Culture Organism: Beta hemolytic Strep group B : [facility] UPPER RESPIRATORY CULTURE *ABNORMAL* [facility] UPPER RESPIRATORY CULTURE Light growth [facility] UPPER RESPIRATORY CULTURE Penicillin and ampicillin are drugs of choice for [facility] UPPER RESPIRATORY CULTURE treatment of beta-hemolytic streptococcal infections. [facility] Healthcare UPPER RESPIRATORY CULTURE Susceptibility testing of penicillins and other beta- [facility] UPPER RESPIRATORY CULTURE lactam agents approved by the FDA for treatment of [facility] UPPER RESPIRATORY CULTURE beta-hemolytic streptococcal infections need not be [facility] UPPER RESPIRATORY CULTURE performed routinely because nonsusceptible isolates [facility] UPPER RESPIRATORY CULTURE are extremely rare in any beta-hemolytic streptococcus [facility] UPPER RESPIRATORY CULTURE and have not been reported for Streptococcus pyogenes [facility] UPPER RESPIRATORY CULTURE (group A). (CLSI) [facility] UPPER RESPIRATORY CULTURE Beta hemolytic Strep group B [facility] UPPER RESPIRATORY CULTURE O:BETAGB Isolated [facility] UPPER RESPIRATORY CULTURE Performed at: [facility]PIRAT[facility] CULTURE [address] [place], [place] [id number] [facility] UPPER RESPIRATORY CULTURE Scale Expert: Codey Sibley PhD, Phone: [phone] [facility] No Panel Informationon 04-29 Type of biopsy: [facility] Informed consent: discussed and consent obtained Informed consent comment: The risks and benefits were discussed. Risks include, but are not limited to, bleeding, infection, scarring, pain, & nerve damage. An opportunity to ask questions prior to the procedure was permitted and questions were answered. Patient was prepped and draped in usual sterile fashion: Area cleansed with alcohol. Anesthesia: the lesion was anesthetized in a standard fashion Anesthetic: 1% lidocaine w/ epinephrine 1-100,000 buffered w/ 8.4% NaHCO3 Punch size: 3 mm (A biopsy by punch method was performed using a dermal punch) Suture size: 4-0 Suture type: nylon Suture type comment: Hemostasis was achieved with suture. Suture removal (days): 14 Hemostasis achieved with: suture Outcome: patient tolerated procedure well Post-procedure details: sterile dressing applied and wound care instructions given Post-procedure details comment: Emphasized the need to contact clinic for any signs of infection, uncontrollable bleeding, or complications. Dressing type: bandage Additional details: Amount of lidocaine used: 1 cc Number of sutures used: 2 Specimen sent for: H&E [facility]28-2023 Forms [id number] Normal [facility] Consent for Treatmenton 10-31 Consent for Treatment [id number] Normal [facility] Discharge Instructionson Discharge Instructions [id number] Normal [facility] ED Clinical Summaryon 2023 ED Clinical Summary [place] [id number] ED Clinical Summary Person Information Name: MARILIA VERA [facility] Age: 33 Years : 1990 Sex: Female Language: [place] Rican PCP: ARIANE WELLS CNP Marital Status: Visit [...] 11/27/2023 15:37:23 11/27/2023 15:37:23 11/27/2023 15:37:23 ADDRESS: [address] [place] [id number] PHYS DOC NOTES: MEDICAL INFORMATION: Prescriptions Given: [facility], [address] [place], [place] [id number], [phone] methocarbamol (Robaxin-750 oral tablet) 2 Tablets By [...] Follow up: With: Address: When: Georgi Pfeiffer [address] [place] [address] [facility] () In 3 days 11/30/2023 DIAGNOSIS: Pain in shoulder Normal [facility] ED Note-Physicianon 11-27-19 ED Note-Physician Basic [...] day(s), # 18 tab(s), Refills(s) 0, Pharmacy: [facility], 160, cm, 11/27/23 12:59:00 EDT, Height/Length Dosing, 114.1, kg, 11/27/23 12:59:00 EDT, Weight Dosing naproxen, 500 mg = 1 tab(s), Oral, BID, PRN for pain, # 20 tab(s), Refills(s) 0, Pharmacy: [facility], 160, cm, 11/27/23 12:59:00 EDT, Height/Length [...] Pfeiffer In 3 days 11/30/2023 EDT [address] [place] [address]- [employer] Eclipse (1) Additional Instructions: Patient Education Shoulder Pain [...] made to ensure accuracy, however, inadvertently computerized plastics design engineer mistakes may be present. Appropriate healthcare PPE [...] mg= 2 tab(s), Oral, BID HumuLIN R LauraPen (Concentrated) Roma (more content not included)... Normal [facility] Comment on above: Result Comment: [...] strengthen the arm. General instructions ? Take [id number]-tbsunqs and prescription medicines only as told by [...] provider. Document Revised: 05/03/2022 Document Reviewed: 05/03/2022 [employer] Patient Education ? 2022 [employer]. Normal [facility] ED Patient Summaryon 024 ED Patient Summary (Inserted Image. Isadora ble to display) [address] [address] Patient Discharge Instructions Person Information Name: MARILIA VERA Age: 33 Years Arrival Date: 11/27/2023 12:52:48 Discharge Diagnosis: Pain in shoulder Primary Care Physician: ARIANE WELLS CNP Provider Information Primary Provider: Riky Le DO [employer] Cook:Steven Cardenas PA-C The exam and treatment you received in the Emergency Department were for an urgent problem and are not intended as complete care. It is important that you follow up with a doctor, nurse practitioner, or physician?s operational assistant for ongoing care. If your symptoms become worse or you do not improve as expected and you are unable to reach your usual health care provider, you should return to the Emergency Department. We are available 24 hours a day. MARILIA VERA has been given the following list of patient education materials, prescriptions and follow-up instructions: Follow-up Instructions: With: Address: When: Georgi Pfeiffer [address] [place] [address] Business (1) In 3 days 11/30/2023 In the event that this physician does not participate in your insurance network, please consult with your insurance company to find a nearby participating provider. Patient Education Materials: Shoulder Pain A MESSAGE TO ALL PATIENTS REGARDING OPIOIDS PRESCRIPTION OPIOIDS: WHAT YOU NEED TO KNOW Prescription opioids can be used to help relieve xlhoaqze-bl-rdfcim pain and are often prescribed following a [...] be struggling with addiction, tell your health health care specialist and ask for guidance or call [facility] [employer] Helpl[facility] at [phone]. q Source: Department of [facility] (more content not included)... Normal [facility] Formson 11-27-2023 Forms [id number] [facility] XR Shoulder Complete Righton 11-27-2023 XR [...] Signature): 11/27/2023 3:07 pm Signed by: Naresh Crwo MD Transcribed by: MARTA Technologist: EDGAR Technical Comments Radiation Dose: Ka,r in mGy = na DAP = na Normal [facility] CBC AUTO DIFFon 12-11-2022 BASO # 0.1 103/ul Normal 0.0-0.1 [facility] Comment on above: Performed By: #### P REGU #### [facility] [address] [place] [address] Dr. Jaz Barajas Basophils/100 WBC (Bld) 0.8 % Normal 0.2-2.0 [facility] Comment on above: Performed By: #### P REGU #### [facility] [address] [place] [address] Dr. Jaz Barajas EO # 0.2 103/ul Normal 0.0-0.7 [facility] Comment on above: Performed By: #### P REGU #### [facility] [address] [place] [address] Dr. Jaz Barajas Eosinophils/100 WBC (Bld) 2.1 % Normal 0.9-7.0 [facility] Comment on above: Performed By: #### P REGU #### [facility] [address] [place] [address] Dr. Jaz Barajas Erythrocyte distribution width (RBC) [Ratio] 13.0 % Normal 11.0-15.0 [facility] Comment on above: Performed By: #### P REGU #### [facility] [address] [place] [address] Dr. Jaz Barajas Hematocrit (Bld) [Volume fraction] 41.2 % Normal 36.0-48.0 [facility] Comment on above: Performed By: #### P REGU #### [facility] [address] [place] [address] Dr. Jaz Barajas Hemoglobin (Bld) [Mass/Vol] 13.7 g/dL Normal 12.0-16.0 [facility] Comment on above: Performed By: #### P REGU #### [facility] [address] [place] [address] Dr. Jaz Barajas IG # 0.02 10e3/ul Normal 0.00-0.03 [facility] Comment on above: Performed By: #### P REGU #### [facility] [address] [place] [address] Dr. Jaz Barajas IG % 0.2 % Normal 0.0-0.5 [facility] Comment on above: Performed By: #### P REGU #### [facility] [address] [address] [address] Jaz Barajas LYMPH # 3.3 103/ul Normal 1.2-3.8 [facility] Comment on above: Performed By: #### P REGU #### [facility] [address] [place] [address] Dr. Jaz Barajas Lymphocytes/100 WBC (Bld) 34.8 % Normal 20.5-60.0 [facility] Comment on above: Performed By: #### P REGU #### [facility] [address] [place] [address] Dr. Jaz Barajas MANUAL DIFF REQ NO Normal [facility] Comment on above: Performed By: #### P REGU #### [facility] [address] [place] [address] Dr. Jaz Barajas MCH (RBC) [Entitic mass] 26.6 pg Critically low 26.7-34.0 [facility] Comment on above: Performed By: #### P REGU #### [facility] [address] [place] [address] Dr. Jaz Barajas MCHC (RBC) [Mass/Vol] 33.3 g/dL Normal 29.9-35.2 [facility] Comment on above: Performed By: #### P REGU #### [facility] [address] [place] [address] Dr. Jaz Barajas MCV (RBC) [Entitic vol] 79.8 fL Critically low 81.0-99.0 [facility] Comment on above: Performed By: #### P REGU #### [facility] [address] [place] [address] Dr. Jaz Barajas MONO # 0.7 103/ul Normal 0.3-0.8 [facility] Comment on above: Performed By: #### P REGU #### [facility] [address] [place] [address] Dr. Jaz Barajas Monocytes/100 WBC (Bld) 7.3 % Normal 1.7-12.0 [facility] Comment on above: Performed By: #### P REGU #### [facility] [address] [place] [address] Dr. Jaz Barajas NEUT # 5.3 103/ul Normal 1.4-6.5 [facility] Comment on above: Performed By: #### P REGU #### [facility] [address] [place] [address] Dr. Jaz Barajas Neutrophils/100 WBC (Bld) 54.8 % Normal 43.0-75.0 [facility] Comment on above: Performed By: #### P REGU #### [facility] [address] [place] [address] Dr. Jaz Barajas Platelet mean volume (Bld) [Entitic vol] 10.7 fL Normal 9.5-13.5 [facility] Comment on above: Performed By: #### P REGU #### [facility] [address] [place] [address] Dr. Jaz Barajas PLT 284 103/ul Normal 150-[address] [facility] Comment on above: Performed By: #### P REGU #### [facility] [address] [place] [address] Dr. Jaz Barajas RBC 5.16 106/ul Normal 4.20-5.[address] [facility] Comment on above: Performed By: #### P REGU #### [facility] [address] [place] [address] Dr. Jaz Barajas WBC 9.6 103/ul Normal 4.0-11.[address] [facility] Comment on above: Performed By: #### P REGU #### [facility] [address] [place] [address] Dr. Jaz Barajas FREE T4on 12-11-2022 Free T4 [Mass/Vol] 1.10 ng/dL Normal 0.76-1.46 [facility] Comment on above: Performed By: #### P ROGLCM #### [facility] [address] [place], [place] [address] Dr. Jaz Barajas LIPID PROFILEon 12-11-2022 CHOL-HDL RATIO NORM SEE BELOW Normal [facility] Comment on above: Result Comment: 3.3 - 4.4 LOW RISK 4.4 - 7.1 AVERAGE RISK 7.1 - 11.0 MODERATE RISK >11.0 HIGH RISK Performed By: #### L IPID, TSH, CMP ####[facility] [address] [place], [place] [address]Ho. Jaz Barajas Cholesterol [Mass/Vol] 168 mg/dL Normal <=200 [facility] Comment on above: Performed By: #### L IPID, TSH, CMP ####[facility] [address] [place], [place] [address]Hh. Jaz Barajas Cholesterol in HDL [Mass/Vol] 32 mg/dL Critically low 40-60 [facility] Comment on above: Performed By: #### L IPID, TSH, CMP ####[facility] [address] [place], [place] [address]Jo. Jaz Barajas Cholesterol in LDL [Mass/Vol] 121.8 mg/dL Normal [facility] Comment on above: Performed By: #### L IPID, TSH, CMP ####[facility] [address] [place], [place] [address]Ka. Jaz Barajas Cholesterol.total/ Cholesterol in HDL [Mass ratio] 5.3 {ratio} Normal [facility] Comment on above: Performed By: #### L IPID, TSH, CMP ####[facility] [address] [place], [place] [address]Mq. Jaz Barajas HDL NORMAL > or = 60 mg/dl - LO W CARDIOVASCULAR RISK <40 mg/dl - HIGH CARDIOVASCULAR RISK Normal [facility] Comment on above: Performed By: #### L IPID, TSH, CMP ####[facility] [address] [place], [place] [address]Wl. Jaz Barajas LDL CALC NORMAL SEE BELOW Normal [facility] Comment on above: Result Comment: <100 mg/dl OPTIMAL 100 - 129 mg/dl NEAR OR ABOVE OPTIMAL 130 - 159 mg/dl BORDERLINE HIGH 160 - 189 mg/dl HIGH >190 mg/dl VERY HIGH Performed By: #### L IPID, TSH, CMP ####[facility] [address] [place] [id number] Barajas Triglyceride [Mass/Vol] 71 mg/dL Normal <=150 [facility] Comment on above: Performed By: #### L IPID, TSH, CMP ####[facility] [address] [place] [id number] Barajas VLDL CALC 14.2 mg/dL Normal [facility] Comment on above: Performed By: #### L IPID, TSH, CMP ####[facility] [address] [place] [address]DrPratibha Barajas MICROALBUMIN, RAND URon 11-30 mALB <1.3 Normal <=30.0 [facility] Comment on above: Performed By: #### P REGU #### [facility] [address] [address] [address] Jaz Barajas PROF 14(COMP METB)on 023 Albumin [Mass/Vol] 3.7 g/dL Normal 3.4-5.0 [facility] Comment on above: Performed By: #### L IPID, TSH, CMP ####[facility] [address] [place] [id number] Barajas Albumin/Globulin [Mass ratio] 0.8 {ratio} Normal [facility] Comment on above: Performed By: #### L IPID, TSH, CMP ####[facility] [address] [place] [id number] Barajas ALP [Catalytic activity/Vol] 90 U/L Normal 46-[address] [facility] Comment on above: Performed By: #### L IPID, TSH, CMP ####[facility] [address] [place] [phone] Barajas ALT [Catalytic activity/Vol] 106 U/L Critically high 14-[address] [facility] Comment on above: Performed By: #### L IPID, TSH, CMP ####[facility] [address] [place] [address]Dr. Jaz Barajas Anion gap [Moles/Vol] 12.5 mmol/L Normal [facility] Comment on above: Performed By: #### L IPID, TSH, CMP ####[facility] [address] [place] [address]Dr. Jaz Barajas AST [Catalytic activity/Vol] 43 U/L Critically high 15-37 [facility] Comment on above: Performed By: #### L IPID, TSH, CMP ####[facility] [address] [place] [address]Dr. Jaz Barajas Bilirubin [Mass/Vol] 0.4 mg/dL Normal 0.2-1.0 [facility] Comment on above: Performed By: #### L IPID, TSH, CMP ####[facility] [address] [place], [place] [address]Dr. Jaz Barajas Calcium [Mass/Vol] 9.0 mg/dL Normal 8.5-10.1 [facility] Comment on above: Performed By: #### L IPID, TSH, CMP ####[facility] [address] [place], [place] [address]Dr. Jaz Barajas Chloride [Moles/Vol] 104 mmol/L Normal 98-[address] [facility] Comment on above: Performed By: #### L IPID, TSH, CMP ####[facility] [address] [place] [address]Dr. Jaz Barajas CO2 [Moles/Vol] 25.8 mmol/L Normal 21.0-32.[address] [facility] Comment on above: Performed By: #### L IPID, TSH, CMP ####[facility] [address] [place] [address]Dr. Jaz Barajas Creatinine [Mass/Vol] 0.76 mg/dL Normal 0.55-1.02 [facility] Comment on above: Performed By: #### L IPID, TSH, CMP ####[facility] [address] [place] [phone]. Jaz Barajas EGFR-AF NAURUAN >60 Normal >=[address] [facility] Comment on above: Performed By: #### L IPID, TSH, CMP ####[facility] [address] [place] [address]Dr. Jaz Barajas EGFR-NON AF NAURUAN >60 Normal >=[address] [facility] Comment on above: Performed By: #### L IPID, TSH, CMP ####[facility] [address] [place] [address]Dr. Jaz Barajas Globulin (S) [Mass/Vol] 4.4 g/dL Normal [facility] Comment on above: Performed By: #### L IPID, TSH, CMP ####[facility] [address] [place], [place] [address]Dr. Jaz Barajas Glucose [Mass/Vol] 228 mg/dL Critically high 74-106 [facility] Comment on above: Performed By: #### L IPID, TSH, CMP ####[facility] [address] [place], [place] [address]Dr. Jaz Barajas Potassium [Moles/Vol] 4.3 mmol/L Normal 3.5-5.[address] [facility] Comment on above: Performed By: #### L IPID, TSH, CMP ####[facility] [address] [place] [address]Dr. Jaz Barajas Protein [Mass/Vol] 8.1 g/dL Normal 6.4-8.2 [facility] Comment on above: Performed By: #### L IPID, TSH, CMP ####[facility] [address] [place] [address]Dr. Jaz Barajas Sodium [Moles/Vol] 138 mmol/L Normal 136-145 [facility] Comment on above: Performed By: #### L IPID, TSH, CMP ####[facility] [address] [place] [address]Dr. Jaz Barajas Urea nitrogen [Mass/Vol] 21.0 mg/dL Critically high 7.0-18.0 [facility] Comment on above: Performed By: #### L IPID, TSH, CMP ####[facility] [address] [place] [address]Dr. Jaz Barajas Urea nitrogen/Creatinin e [Mass ratio] 27.6 mg/mg Normal [facility] Comment on above: Performed By: #### L IPID, TSH, CMP ####[facility] [address] [place] [address]Dr. Jaz Barajas TSHon 12-11-2022 TSH 3.602 uIU/mL Normal 0.358-3.740 [facility] Comment on above: Performed By: #### L IPID, TSH, CMP ####[facility] [address] [place], [place] [address]Dr. Jaz Barajas UA RANDOM W/MICROSCOPICon BACTERIA NONE SEEN Normal NONE SEEN [facility] Comment on above: Performed By: #### U AMIC ####[facility] [address] [place], [place] [address]Dr. Jaz Barajas Bilirubin Ql (U) Negative Normal NEGATIVE [facility] Comment on above: Performed By: #### U AMIC ####[facility] [address] [place], [place] [address]Dr. Jaz Barajas CAST NONE SEEN Normal NONE SEEN [facility] Comment on above: Performed By: #### U AMIC ####[facility] [address] [place], [place] [address]Dr. Jaz Barajas Clarity (U) CLEAR Normal CLEAR [facility] Comment on above: Performed By: #### U AMIC ####[facility] [address] [place] [address]Dr. Jaz Barajas Color (U) LT. YELLOW Normal YELLOW [facility] Comment on above: Performed By: #### U AMIC ####[facility] [address] [place] [address]Dr. Jaz Barajas Crystals LM Nom (Urine sed) NONE SEEN Normal NONE SEEN [facility] Comment on above: Performed By: #### U AMIC ####[facility] [address] [place] [address]Dr. Jaz Barajas Epithelial cells LM Ql (Urine sed) RARE Normal NONE SEEN /RARE [facility] Comment on above: Performed By: #### U AMIC ####[facility] [address] [place] [address]Dr. Jaz Barajas Glucose Ql (U) >1000 Abnormal NEGATIVE [facility] Comment on above: Performed By: #### U AMIC ####[facility] [address] [place], [place] [address]Dr. Jaz Barajas Hemoglobin Ql (U) Negative Normal NEGATIVE [facility] Comment on above: Performed By: #### U AMIC ####[facility] [address] [place], [place] [address]Dr. Jaz Barajas Ketones Ql (U) Negative Normal NEGATIVE [facility] Comment on above: Performed By: #### U AMIC ####[facility] [address] [place], [place] [address]Dr. Jaz Barajas LEUKOCYTES Negative Normal NEGATIVE [facility] Comment on above: Performed By: #### U AMIC ####[facility] [address] [place], [place] [address]Dr. Jaz Barajas MUCOUS NONE SEEN Normal NONE SEEN [facility] Comment on above: Performed By: #### U AMIC ####[facility] [address] [place] [address]Dr. Jaz Barajas Nitrite Ql (U) Negative Normal NEGATIVE [facility] Comment on above: Performed By: #### U AMIC ####[facility] [address] [place], [place] [address]Dr. Jaz Barajas pH (U) 6.0 [pH] Normal 5-[address] [facility] Comment on above: Performed By: #### U AMIC ####[facility] [address] [place], [place] [address]Dr. Jaz Barajas RBC NONE SEEN Abnormal 0-[address] [facility] Comment on above: Performed By: #### U AMIC ####[facility] [address] [place], [place] [address]DrPratibha Barajas SPEC GRAVITY 1.020 Normal 1.005-<=1.0 25 [facility] Comment on above: Performed By: #### U AMIC ####[facility] [address] [place] [address]DrPratibha Barajas UA PROTEIN Negative Normal NEGATIVE/ TRACE [facility] Comment on above: Performed By: #### U AMIC ####[facility] [address] [place] [address]DrPratibha Barajas Urobilinogen Qn (U) 0.2 {Oxana'U}/dL Normal 0.2 - 1.[address] [facility] Comment on above: Performed By: #### U AMIC ####[facility] [address] [place] [address]Dr. Jaz Barajas WBC 0-2 Abnormal NONE SEEN [facility] Comment on above: Performed By: #### U AMIC ####[facility] [address] [place] [address]Dr. Jaz Barajas VITAMIN D 25 OHon 12-11-2022 VIT D 25-OH 30.9 ng/mL Normal [facility] Comment on above: Performed By: #### P DUSTINM #### [facility] [address] [place] [address] Dr. Jaz Barajas VIT D RANGES SEE BELOW Normal [facility] Comment on above: Result Comment: <20 ng/mL Vit D deficient 20 - <30 ng/mL Vit D insufficient 30 - 100 ng/mL Vit D sufficient >100 ng/mL Potential Toxicity Performed By: #### P ROGLCM #### [facility] [address] [address] [address] Jaz Barajas CBC AUTO DIFFon 11-15-2022 BASO # 0.1 103/ul Normal 0.0-0.1 [facility] Comment on above: Performed By: #### P VALENTINELCM #### [facility] [address] [address] [address] Jaz Barajas Basophils/100 WBC (Bld) 0.6 % Normal 0.2-2.0 [facility] Comment on above: Performed By: #### P ROGLCM #### [facility] [address] [place] [address] [address] Jaz Barajas EO # 0.2 103/ul Normal 0.0-0.7 [facility] Comment on above: Performed By: #### P ROGLCM #### [facility] [address] [place] [address] Dr. Jaz Barajas Eosinophils/100 WBC (Bld) 2.0 % Normal 0.9-7.0 [facility] Comment on above: Performed By: #### P ROGLCM #### [facility] [address] [place] [address] Dr. Jaz Barajas Erythrocyte distribution width (RBC) [Ratio] 13.3 % Normal 11.0-15.0 [facility] Comment on above: Performed By: #### P ROGLCM #### [facility] [address] [place] [address] Dr. Jaz Barajas Hematocrit (Bld) [Volume fraction] 40.4 % Normal 36.0-48.0 [facility] Comment on above: Performed By: #### P ROGLCM #### [facility] [address] [place] [address] Dr. Jaz Barajas Hemoglobin (Bld) [Mass/Vol] 13.5 g/dL Normal 12.0-16.0 [facility] Comment on above: Performed By: #### P ROGLCM #### [facility] [address] [place] [address] Dr. Jaz Barajas IG # 0.03 10e3/ul Normal 0.00-0.03 [facility] Comment on above: Performed By: #### P ROGLCM #### [facility] [address] [place] [address] Dr. Jaz Barajas IG % 0.3 % Normal 0.0-0.5 [facility] Comment on above: Performed By: #### P ROGLCM #### [facility] [address] [place] [address] Dr. Jaz Barajas LYMPH # 3.3 103/ul Normal 1.2-3.8 [facility] Comment on above: Performed By: #### P ROGLCM #### [facility] [address] [place] [address] [address] Jaz Barajas Lymphocytes/100 WBC (Bld) 30.7 % Normal 20.5-60.0 [facility] Comment on above: Performed By: #### P ROGLCM #### [facility] [address] [place] [address] Dr. Jaz Barajas MANUAL DIFF REQ NO Normal [facility] Comment on above: Performed By: #### P ROGLCM #### [facility] [address] [place] [address] Dr. Jaz Barajas MCH (RBC) [Entitic mass] 26.6 pg Critically low 26.7-34.0 [facility] Comment on above: Performed By: #### P ROGLCM #### [facility] [address] [place] [address] Dr. Jaz Barajas MCHC (RBC) [Mass/Vol] 33.4 g/dL Normal 29.9-35.2 [facility] Comment on above: Performed By: #### P ROGLCM #### [facility] [address] [place] [address] Dr. Jaz Barajas MCV (RBC) [Entitic vol] 79.7 fL Critically low 81.0-99.0 [facility] Comment on above: Performed By: #### P ROGLCM #### [facility] [address] [place] [address] Dr. Jaz Barajas MONO # 0.8 103/ul Normal 0.3-0.8 [facility] Comment on above: Performed By: #### P ROGLCM #### [facility] [address] [place] [address] Dr. Jaz Barajas Monocytes/100 WBC (Bld) 7.4 % Normal 1.7-12.0 [facility] Comment on above: Performed By: #### P ROGLCM #### [facility] [address] [place] [address] Dr. Jaz Barajas NEUT # 6.3 103/ul Normal 1.4-6.5 [facility] Comment on above: Performed By: #### P ROGLCM #### [facility] [address] [place] [address] Dr. Jaz Barajas Neutrophils/100 WBC (Bld) 59.0 % Normal 43.0-75.0 [facility] Comment on above: Performed By: #### P ROGLCM #### [facility] [address] [place] [address] Dr. Jaz Barajas Platelet mean volume (Bld) [Entitic vol] 10.7 fL Normal 9.5-13.5 [facility] Comment on above: Performed By: #### P ROGLCM #### [facility] [address] [place] [address] Dr. Jaz Barajas PLT 326 103/ul Normal 150-450 [facility] Comment on above: Performed By: #### P ROGLCM #### [facility] [address] [place] [address] Dr. Jaz Barajas RBC 5.07 106/ul Normal 4.20-5.40 [facility] Comment on above: Performed By: #### P ROGLCM #### [facility] [address] [place] [address] Dr. Jaz Barajas WBC 10.7 103/ul Normal 4.0-11.0 [facility] Comment on above: Performed By: #### P ROGLCM #### [facility] [address] [place] [address] ABD/PELV W CONon [...] GERALDINE LAZAR Date: 2022-11-15 09:[address] [facility] ER URINE PROFILEon 3 Bilirubin Ql (U) Negative Normal NEGATIVE [facility] Comment on above: Performed By: #### P ROGLCM #### [facility] [address] [place] [address] Dr. Jaz Barajas Clarity (U) CLEAR Normal CLEAR [facility] Comment on above: Performed By: #### P ROGLCM #### [facility] [address] [place] [address] Dr. Jaz Barajas Color (U) LT. YELLOW Normal YELLOW [facility] Comment on above: Performed By: #### P ROGLCM #### [facility] [address] [place] [address] Dr. Jaz Barajas ERUELFEGOD A micrscopic examina tion will be performed if indicated. Normal [facility] Comment on above: Performed By: #### P ROGLCM #### [facility] [address] [place] [address] Dr. Jaz Barajas Glucose Ql (U) 1000 mg/dl Abnormal NEGATIVE [facility] Comment on above: Performed By: #### P ROGLCM #### [facility] [address] [place] [address] Dr. Jaz Barajas Hemoglobin Ql (U) Negative Normal NEGATIVE [facility] Comment on above: Performed By: #### P ROGLCM #### [facility] [address] [place] [address] [address] Jaz Barajas Ketones Ql (U) Negative Normal NEGATIVE [facility] Comment on above: Performed By: #### P ROGLCM #### [facility] [address] [address] [address] Jaz Barajas LEUKOCYTES Negative Normal NEGATIVE [facility] Comment on above: Performed By: #### P ROGLCM #### [facility] [address] [address] [address] Jaz Barajas Nitrite Ql (U) Negative Normal NEGATIVE [facility] Comment on above: Performed By: #### P ROGLCM #### [facility] [address] [place] [address] Dr. Jaz Barajas pH (U) 6.0 [pH] Normal 5-9 [facility] Comment on above: Performed By: #### P ROGLCM #### [facility] [address] [place] [address] Dr. Jaz Barajas SPEC GRAVITY 1.015 Normal 1.005-<=1.0 25 [facility] Comment on above: Performed By: #### P ROGLCM #### [facility] [address] [place] [address] Dr. Jaz Barajas UA PROTEIN Negative Normal NEGATIVE/ TRACE [facility] Comment on above: Performed By: #### P ROGLCM #### [facility] [address] [address] [address] Jaz Barajas UR MICRO IND NOT INDICATED Normal [facility] Comment on above: Performed By: #### P ROGLCM #### [facility] [address] [place] [address] Dr. Jaz Barajas Urobilinogen Qn (U) 0.2 {Oxana'U}/dL Normal 0.2 - 1.0 [facility] Comment on above: Performed By: #### P ROGLCM #### [facility] [address] [place] [address] Dr. Jaz Barajas LIPASEon 03-17-2023 Lipase [Catalytic activity/Vol] 73.0 U/L Normal 73.0-393.0 [facility] Comment on above: Performed By: #### P REGU #### [facility] [address] [address] [address] Jaz Barajas URon 11-15-2022 , QUAL Negative Normal NEGATIVE [facility] Comment on above: Performed By: #### E RUR, PREGU ####[facility] [address] [address]Dr. Jaz Barajas PROF 14(COMP METB)on 023 Albumin [Mass/Vol] 3.6 g/dL Normal 3.4-5.0 [facility] Comment on above: Performed By: #### P REGU #### [facility] [address] [place] [address] Dr. Jaz Barajas Albumin/Globulin [Mass ratio] 0.9 {ratio} Normal [facility] Comment on above: Performed By: #### P REGU #### [facility] [address] [address] [address] Jaz Barajas ALP [Catalytic activity/Vol] 98 U/L Normal 46-116 [facility] Comment on above: Performed By: #### P REGU #### [facility] [address] [place] [address] Dr. Jaz Barajas ALT [Catalytic activity/Vol] 138 U/L Critically high 14-[address] [facility] Comment on above: Performed By: #### P REGU #### [facility] [address] [place] [address] Dr. Jaz Barajas Anion gap [Moles/Vol] 13.4 mmol/L Normal [facility] Comment on above: Performed By: #### P REGU #### [facility] [address] [place] [address] Dr. Jaz Barajas AST [Catalytic activity/Vol] 61 U/L Critically high 15-37 [facility] Comment on above: Performed By: #### P REGU #### [facility] [address] [address] [address] Jaz Barajas Bilirubin [Mass/Vol] 0.2 mg/dL Normal 0.2-1.0 [facility] Comment on above: Performed By: #### P REGU #### [facility] [address] [place] [address] Dr. Jaz Barajas Calcium [Mass/Vol] 9.4 mg/dL Normal 8.5-10.1 [facility] Comment on above: Performed By: #### P REGU #### [facility] [address] [place] [address] Dr. Jaz Barajas Chloride [Moles/Vol] 104 mmol/L Normal 98-107 [facility] Comment on above: Performed By: #### P REGU #### [facility] [address] [place] [address] Dr. Jaz Barajas CO2 [Moles/Vol] 24.7 mmol/L Normal 21.0-32.[address] [facility] Comment on above: Performed By: #### P REGU #### [facility] [address] [place] [address] Dr. Jaz Barajas Creatinine [Mass/Vol] 0.69 mg/dL Normal 0.55-1.02 [facility] Comment on above: Performed By: #### P REGU #### [facility] [address] [place] [address] Dr. Jaz Barajas EGFR-AF NAURUAN >60 Normal >=[address] [facility] Comment on above: Performed By: #### P REGU #### [facility] [address] [place] [address] Dr. Jaz Barajas EGFR-NON AF NAURUAN >60 Normal >=60 [facility] Comment on above: Performed By: #### P REGU #### [facility] [address] [place] [address] Dr. Jaz Barajas Globulin (S) [Mass/Vol] 4.2 g/dL Normal [facility] Comment on above: Performed By: #### P REGU #### [facility] [address] [place] [address] Dr. Jaz Barajas Glucose [Mass/Vol] 339 mg/dL Critically high 74-106 T [facility] Comment on above: Performed By: #### P REGU #### [facility] [address] [address] [address] Jaz Barajas Potassium [Moles/Vol] 4.1 mmol/L Normal 3.5-5.1 [facility] Comment on above: Performed By: #### P REGU #### [facility] [address] [place] [address] Dr. Jaz Barajas Protein [Mass/Vol] 7.8 g/dL Normal 6.4-8.2 [facility] Comment on above: Performed By: #### P REGU #### [facility] [address] [place] [address] Dr. Jaz Barajas Sodium [Moles/Vol] 138 mmol/L Normal 136-145 [facility] Comment on above: Performed By: #### P REGU #### [facility] [address] [place] [address] Dr. Jaz Barajas Urea nitrogen [Mass/Vol] 17.0 mg/dL Normal 7.0-18.0 [facility] Comment on above: Performed By: #### P REGU #### [facility] [address] [place] [address] Dr. Jaz Barajas Urea nitrogen/Creatinin e [Mass ratio] 24.6 mg/mg Normal [facility] Comment on above: Performed By: #### P REGU #### [facility] [address] [place] [address] Dr. Jaz Barajas CULTURE WOUNDon 11-13-2022 CULTURE [...] S F Tetracycline >=16 R F Normal [facility] Comment on above: Performed By: #### W OUNDCX ####[facility] [address] [place], [place] [address]Dr. Jaz Barajas Covid-19 PCR ([facility])on 08-01 SARS-CoV-2 (COVID-19) RNA REANNA+probe Ql (Unsp spec) Not detected Normal NOT DETECTED [facility] Comment on above: Result Comment: This test is not yet approved or cleared by the [place] FDA. When there are no FDA-approved or cleared tests available, and other criteria are met, FDA can make tests available under an emergency access mechanism called an Emergency Use Authorization (EUA). The EUA for this test is supported by the [place] of Health and Human Service's (HHS's) declaration [...] SARS-CoV-2. Performed By: #### P DUSTINM #### [facility] [address] [address] [address] Jaz Barajas INFLUENZA A AND B AGon 08-18 [facility] SEE BELOW Normal [facility] Comment on above: Result Comment: Nega tive for Flu A protein angiten. Infection due to Flu A cannot be ruled out. Flu A angiten in the sample may be below the detection limit of the test. Performed By: #### P VALENTINELCM #### [facility] [address] [place], [place] [address] Dr. Jaz [facility] Normal [facility] Comment on above: Result Comment: Nega tive for Flu B protein antigen. Infection due to Flu B cannot be ruled out. Flu B antigen in the sample may be below the detection limit of the test. Performed By: #### P ROGLCM #### [facility] [address] [address] [address] Jaz Barajas INFLUENZA A AG Negative Normal NEGATIVE SEE COMMENT [facility] Comment on above: Performed By: #### P ROGLCM #### [facility] [address] [address] [address] Jaz Barajas INFLUENZA B AG Negative Normal NEGATIVE SEE COMMENT [facility] Comment on above: Performed By: #### P ROGLCM #### [facility] [address] [address] [address] Jaz Barajas INTERNAL CONTROLS Within Normal Limits Normal Wi thin Normal Limits [facility] Comment on above: Performed By: #### P ROGLCM #### [facility] [address] [address] [address] Jaz Barajas POINT OF CARE GLUCOSEon - Glucose [Mass/Vol] 310 mg/dL Critically high 74-106 T [facility] Comment on above: Performed By: #### P ROGLCM #### [facility] [address] [address] [address] Jaz Barajas XR CHEST 1 Von [...] EDUARDO RHODES Date: 2022-08-18 15:[address] [facility] PREG HCG QUALon 05-14-2022 , QUAL Negative Normal NEGATIVE [facility] Comment on above: Performed By: #### P REG ####[facility] [address] [address]Dr. Jaz Barajas CBC AUTO DIFFon 05-08-2022 BASO # 0.1 103/ul Normal 0.0-0.1 [facility] Comment on above: Performed By: #### C BC ####[facility] [address] [id number]. Jaz Barajas Basophils/100 WBC (Bld) 0.6 % Normal 0.2-2.[address] [facility] Comment on above: Performed By: #### C BC ####[facility] [address] [phone]. Jaz Barajas EO # 0.2 103/ul Normal 0.0-0.[address] [facility] Comment on above: Performed By: #### C BC ####[facility] [address] [place], [place] [id number]. Jaz Barajas Eosinophils/100 WBC (Bld) 1.5 % Normal 0.9-7.[address] [facility] Comment on above: Performed By: #### C BC ####[facility] [address] [place], [place] [address]Dr. Jaz Barajas Erythrocyte distribution width (RBC) [Ratio] 12.6 % Normal 11.0-15.[address] [facility] Comment on above: Performed By: #### C BC ####[facility] [address] [place], [place] [id number]. Jaz Barajas Hematocrit (Bld) [Volume fraction] 38.7 % Normal 36.0-48.[address] [facility] Comment on above: Performed By: #### C BC ####[facility] [address] [phone]. Jaz Barajas Hemoglobin (Bld) [Mass/Vol] 12.9 g/dL Normal 12.0-16.[address] [facility] Comment on above: Performed By: #### C BC ####[facility] [address] [place], [place] [address]Dr. Jaz Barajas IG # 0.02 10e3/ul Normal 0.00-0.[address] [facility] Comment on above: Performed By: #### C BC ####[facility] [address] [place], [place] [address]Dr. Jaz Barajas IG % 0.2 % Normal 0.0-0.[address] [facility] Comment on above: Performed By: #### C BC ####[facility] [address] [phone]. Jaz Barajas LYMPH # 3.5 103/ul Normal 1.2-3.[address] [facility] Comment on above: Performed By: #### C BC ####[facility] [address] [phone]. Jaz Barajas Lymphocytes/100 WBC (Bld) 34.4 % Normal 20.5-60.[address] [facility] Comment on above: Performed By: #### C BC ####[facility] [address] [phone]. Jaz Barajas MANUAL DIFF REQ NO Normal [facility] Comment on above: Performed By: #### C BC ####[facility] [address] [phone]. Jaz Barajas MCH (RBC) [Entitic mass] 27.2 pg Normal 26.7-34.[address] [facility] Comment on above: Performed By: #### C BC ####[facility] [address] [phone]. Jaz Barajas MCHC (RBC) [Mass/Vol] 33.3 g/dL Normal 29.9-35.[address] [facility] Comment on above: Performed By: #### C BC ####[facility] [address] [phone]. Jaz Barajas MCV (RBC) [Entitic vol] 81.6 fL Normal 81.0-99.[address] [facility] Comment on above: Performed By: #### C BC ####[facility] [address] [phone]. Jaz Barajas MONO # 0.7 103/ul Normal 0.3-0.[address] [facility] Comment on above: Performed By: #### C BC ####[facility] [address] [phone]. Jaz Karl Monocytes/100 WBC (Bld) 7.0 % Normal 1.7-12.[address] [facility] Comment on above: Performed By: #### C BC ####[facility] [address] [place], [place] [address]Or. Jaz Barajas NEUT # 5.7 103/ul Normal 1.4-6.[address] [facility] Comment on above: Performed By: #### C BC ####[facility] [address] [place], [place] [address]Hj. Jaz Barajas Neutrophils/100 WBC (Bld) 56.3 % Normal 43.0-75.[address] [facility] Comment on above: Performed By: #### C BC ####[facility] [address] [phone]. Jaz Barajas Platelet mean volume (Bld) [Entitic vol] 11.0 fL Normal 9.5-13.5 [facility] Comment on above: Performed By: #### C BC ####[facility] [address] [phone]. Jaz Barajas PLT 274 103/ul Normal 150-[address] [facility] Comment on above: Performed By: #### C BC ####[facility] [address] [phone]. Jaz Barajas RBC 4.74 106/ul Normal 4.20-5.[address] [facility] Comment on above: Performed By: #### C BC ####[facility] [address] [phone]. Jaz Barajas WBC 10.0 103/ul Normal 4.0-11.[address] [facility] Comment on above: Performed By: #### C BC ####[facility] [address] [phone]. Jaz Barajas Covid-19 PCR (CVDTB)on SARS-CoV-2 (COVID-19) RNA REANNA+probe Ql (Unsp spec) Not detected Normal NOT DETECTED [facility] Comment on above: Result Comment: This test is not yet approved or cleared by the [place] FDA. When there are no FDA-approved or cleared tests available, and other criteria are met, FDA can make tests available under an emergency access mechanism called an Emergency Use Authorization (EUA). The EUA for this test is supported by the [place] of Health and Human Service's (HHS's) declaration [...] SARS-CoV-2. Performed By: #### P REGU #### [facility] [address] [place] [address] Dr. Jaz Barajas PROF CHEM 8 (BAS METB)on Anion gap [Moles/Vol] 10.1 mmol/L Normal [facility] Comment on above: Performed By: #### P REGU #### [facility] [address] [place] [address] Dr. Jaz Barajas Calcium [Mass/Vol] 9.0 mg/dL Normal 8.5-10.1 [facility] Comment on above: Performed By: #### P REGU #### [facility] [address] [place] [address] Dr. Jaz Barajas Chloride [Moles/Vol] 99 mmol/L Normal 98-107 [facility] Comment on above: Performed By: #### P REGU #### [facility] [address] [place] [address] Dr. Jaz Barajas CO2 [Moles/Vol] 29.1 mmol/L Normal 21.0-32.[address] [facility] Comment on above: Performed By: #### P REGU #### [facility] [address] [place] [address] Dr. Jaz Barajas Creatinine [Mass/Vol] 0.80 mg/dL Normal 0.55-1.02 [facility] Comment on above: Performed By: #### P REGU #### [facility] [address] [place] [address] Dr. Jaz Barajas EGFR-AF NAURUAN >60 Normal >=60 [facility] Comment on above: Performed By: #### P REGU #### [facility] [address] [place] [address] Dr. Jaz Barajas EGFR-NON AF NAURUAN >60 Normal >=60 [facility] Comment on above: Performed By: #### P REGU #### [facility] [address] [place] [address] Dr. Jaz Barajas Glucose [Mass/Vol] 217 mg/dL Critically high 74-106 T [facility] Comment on above: Performed By: #### P REGU #### [facility] [address] [place] [address] Dr. Jaz Barajas Potassium [Moles/Vol] 4.2 mmol/L Normal 3.5-5.1 [facility] Comment on above: Result Comment: spec imen slightly hemolyzed may affect K+ result Performed By: #### P REGU #### [facility] [address] [place] [address] Dr. Jaz Barajas Sodium [Moles/Vol] 134 mmol/L Critically low 136-145 [facility] Comment on above: Performed By: #### P REGU #### [facility] [address] [place] [address] Dr. Jaz Barajas Urea nitrogen [Mass/Vol] 11.0 mg/dL Normal 7.0-18.0 [facility] Comment on above: Performed By: #### P REGU #### [facility] [address] [place] [address] Dr. Jaz Barajas Urea nitrogen/Creatinin e [Mass ratio] 13.8 mg/mg Normal [facility] Comment on above: Performed By: #### P REGU #### [facility] [address] [place] [address] ABD/PELV W CONon [...] JEYSON BLANTON Date: 2022-04-18 12:[address] [facility] ER URINE PROFILEon 2 Bilirubin Ql (U) Negative Normal NEGATIVE [facility] Comment on above: Performed By: #### E GLORIA PREGU ####[facility] [address] [address]Dr. Jaz Barajas Clarity (U) CLEAR Normal CLEAR [facility] Comment on above: Performed By: #### Neva CASTRO PREGU ####[facility] [address] [address]Dr. Jaz Barajas Color (U) LT. YELLOW Normal YELLOW [facility] Comment on above: Performed By: #### E GLORIA PREGU ####[facility] [address] [address]Dr. Jaz MEDINA A micrscopic examina tion will be performed if indicated. Normal [facility] Comment on above: Performed By: #### Neva RUR, PREGU ####[facility] [address] [address]Dr. Jaz Barajas Glucose Ql (U) 1000 mg/dl Abnormal NEGATIVE [facility] Comment on above: Performed By: #### E RUR, PREGU ####[facility] [address] [place], [place] [address]Dr. Jaz Barajas Hemoglobin Ql (U) Negative Normal NEGATIVE [facility] Comment on above: Performed By: #### Neva RUR, PREGU ####[facility] [address] [place], [place] [address]Dr. Jaz Barajas Ketones Ql (U) Negative Normal NEGATIVE [facility] Comment on above: Performed By: #### Neva RUR, PREGU ####[facility] [address] [place], [place] [address]Dr. Jaz Barajas LEUKOCYTES Negative Normal NEGATIVE [facility] Comment on above: Performed By: #### Neva RUR, PREGU ####[facility] [address] [place], [place] [address]Dr. Jaz Barajas Nitrite Ql (U) Negative Normal NEGATIVE [facility] Comment on above: Performed By: #### Neva BREAUXR, PREGU ####[facility] [address] [place], [place] [address]Dr. Jaz Barajas pH (U) 6.5 [pH] Normal 5-9 [facility] Comment on above: Performed By: #### Neva RUR, PREGU ####[facility] [address] [place], [place] [address]Dr. Jaz Barajas SPEC GRAVITY 1.010 Normal 1.005-<=1.0 25 [facility] Comment on above: Performed By: #### Neva RUR, PREGU ####[facility] [address] [place], [place] [address]Dr. Jaz Barajas UA PROTEIN Negative Normal NEGATIVE/ TRACE [facility] Comment on above: Performed By: #### E RUR, PREGU ####[facility] [address] [phone]. Jaz Barajas UR MICRO IND NOT INDICATED Normal [facility] Comment on above: Performed By: #### E RUR, PREGU ####[facility] [address] [place], [place] [address]Hc. Jaz Barajas Urobilinogen Qn (U) 0.2 {Oxana'U}/dL Normal 0.2 - 1.0 [facility] Comment on above: Performed By: #### E RUR, PREGU ####[facility] [address] [phone]. Jaz Barajas URon 04-18-2022 , QUAL Negative Normal NEGATIVE [facility] Comment on above: Performed By: #### E RUR, PREGU ####[facility] [address] [phone]. Jaz Barajas 17-OH PROGESTERONE, LC/MSon 04-05-2022 17-OH Progesterone LCMS 43 ng/dL Normal [facility] Comment on above: Result Comment: Adul t Female Follicular 15 - 70 Luteal 35 - 290 Performed By: #### P ROGLCM #### [facility] [address] [address] [address] Jaz Barajas ANDROSTENEDINE LC/MSon 04-05 Androstenedione LCMS 111 ng/dL Normal 41-262 [facility] Comment on above: Result Comment: This test was developed and its performance characteristics determined by [facility]. It has not been cleared or approved by the Food and Drug Administration. Performed By: #### A NDROST #### [facility] [address] [address] [address] Jaz Barajas TESTOSTERONE, TOTALon 2021 Testosterone [Mass/Vol] 70 ng/dL Critically high 8-60 [facility] Comment on above: Performed By: #### T ESTTOT ####[facility] [address] [phone]. Jaz Barajas PROF CHEM 8 (BAS METB)on Anion gap [Moles/Vol] 11.5 mmol/L Normal [facility] Comment on above: Performed By: #### B MP ####[facility] [address] [place] [address]Dr. Jaz Barajas Calcium [Mass/Vol] 9.1 mg/dL Normal 8.5-10.1 [facility] Comment on above: Performed By: #### B MP ####[facility] [address] [place] [address]Dr. Jaz Barajas Chloride [Moles/Vol] 103 mmol/L Normal 98-107 [facility] Comment on above: Performed By: #### B MP ####[facility] [address] [place], [place] [address]Dr. Hannahisela Karl CO2 [Moles/Vol] 28.0 mmol/L Normal 21.0-32.0 [facility] Comment on above: Performed By: #### B MP ####[facility] [address] [place], [place] [address]Dr. Jaz Barajas Creatinine [Mass/Vol] 0.74 mg/dL Normal 0.55-1.02 [facility] Comment on above: Performed By: #### B MP ####[facility] [address] [place], [place] [address]Dr. Hannahisela Karl EGFR-AF NAURUAN >60 Normal >=[address] [facility] Comment on above: Performed By: #### B MP ####[facility] [address] [place], [place] [address]Dr. Jaz Barajas EGFR-NON AF NAURUAN >60 Normal >=60 [facility] Comment on above: Performed By: #### B MP ####[facility] [address] [place], [place] [address]Dr. Jaz Barajas Glucose [Mass/Vol] 197 mg/dL Critically high 74-106 [facility] Comment on above: Performed By: #### B MP ####[facility] [address] [place], [place] [address]Dr. Jaz Barajas Potassium [Moles/Vol] 4.5 mmol/L Normal 3.5-5.1 [facility] Comment on above: Performed By: #### B MP ####[facility] [address] [place] [phone]. Jaz Barajas Sodium [Moles/Vol] 138 mmol/L Normal 136-145 [facility] Comment on above: Performed By: #### B MP ####[facility] [address] [place] [phone]. Jaz Barajas Urea nitrogen [Mass/Vol] 11.0 mg/dL Normal 7.0-18.0 [facility] Comment on above: Performed By: #### B MP ####[facility] [address] [place] [address]Dr. Jaz Barajas Urea nitrogen/Creatinin e [Mass ratio] 14.9 mg/mg Normal [facility] Comment on above: Performed By: #### B MP ####[facility] [address] [place] [address]Dr. Jaz Barajas XR ABD FLAT_UPon 02-06-2022 XR [...] EDUARDO RIVERS Date: 2022-02-06 17:[address] [facility] CREATININEon 01-31-2022 Creatinine [Mass/Vol] 0.74 mg/dL Normal 0.55-1.02 [facility] Comment on above: Performed By: #### P ROGLCM #### [facility] [address] [address] [address] Jaz Barajas EGFR-AF NAURUAN >60 Normal >=60 [facility] Comment on above: Performed By: #### P ROGLCM #### [facility] [address] [address] [address] Jaz Barajas EGFR-NON AF NAURUAN >60 Normal >=60 [facility] Comment on above: Performed By: #### P ROGLCM #### [facility] [address] [place], [place] [address] ABDOMEN W CONon [...] JEYSON BLANTON Date: 2022-01-31 18:[address] [facility] ACETONE SERUMon 01-09-2022 ACETONE Negative Normal NEGATIVE [facility] Comment on above: Performed By: #### A CETON ####[facility] [address] [place], [place] [address]MiDr. Jaz Barajas CARDIAC BISI ADMITon 022 CK [Catalytic activity/Vol] 58 U/L Normal 26-192 [facility] Comment on above: Performed By: #### P REGU #### [facility] [address] [place], [place] [address] Dr. aJz Barajas CK.MB [Mass/Vol] 0.64 ng/mL Normal <=3.60 [facility] Comment on above: Performed By: #### P REGU #### [facility] [address] [place] [address] Dr. Jaz Barajas HSTROP 5.3 pg/mL Normal 4.0-51.3 [facility] Comment on above: Result Comment: CUT- OFF POINTS HAVE BEEN ESTABLISHED BASED ON THE FOURTH UNIVERSAL DEFINITIONS OF MYOCARDIAL INFARCTION. THE UPPER REFERENCE LIMIT (URL) OF TROPONIN, DEFINED THE 99TH PERCENTILE OF cTnI DISTRIBUTION IN A REFERENCE POPULATION, HAS BEEN CONFIRMED THE DECISION THRESHOLD FOR [place] DIAGNOSIS. Performed By: #### P REGU #### [facility] [address] [place] [address] Dr. Jaz Barajas WAI 30 ng/mL Normal 9-82 [facility] Comment on above: Performed By: #### P REGU #### [facility] [address] [place] [address] Dr. Jaz Barajas CBC AUTO DIFFon 01-09-2022 BASO # 0.1 103/ul Normal 0.0-0.1 [facility] Comment on above: Performed By: #### P REGU #### [facility] [address] [place] [address] Dr. Jaz Barajas Basophils/100 WBC (Bld) 0.5 % Normal 0.2-2.0 [facility] Comment on above: Performed By: #### P REGU #### [facility] [address] [place] [address] Dr. Jaz Barajas EO # 0.3 103/ul Normal 0.0-0.7 [facility] Comment on above: Performed By: #### P REGU #### [facility] [address] [place] [address] Dr. Jaz Barajas Eosinophils/100 WBC (Bld) 2.5 % Normal 0.9-7.0 [facility] Comment on above: Performed By: #### P REGU #### [facility] [address] [place] [address] Dr. Jaz Barajas Erythrocyte distribution width (RBC) [Ratio] 12.8 % Normal 11.0-15.0 [facility] Comment on above: Performed By: #### P REGU #### [facility] [address] [place] [address] Dr. Jaz Barajas Hematocrit (Bld) [Volume fraction] 41.0 % Normal 36.0-48.0 [facility] Comment on above: Performed By: #### P REGU #### [facility] [address] [place] [address] Dr. Jaz Barajas Hemoglobin (Bld) [Mass/Vol] 13.6 g/dL Normal 12.0-16.0 [facility] Comment on above: Performed By: #### P REGU #### [facility] [address] [place] [address] Dr. Jaz Barajas IG # 0.03 10e3/ul Normal 0.00-0.03 [facility] Comment on above: Performed By: #### P REGU #### [facility] [address] [place] [address] Dr. Jaz Barajas IG % 0.3 % Normal 0.0-0.5 [facility] Comment on above: Performed By: #### P REGU #### [facility] [address] [place] [address] Dr. Jaz Barajas LYMPH # 2.7 103/ul Normal 1.2-3.8 [facility] Comment on above: Performed By: #### P REGU #### [facility] [address] [place] [address] Dr. Jaz Barajas Lymphocytes/100 WBC (Bld) 25.7 % Normal 20.5-60.0 [facility] Comment on above: Performed By: #### P REGU #### [facility] [address] [place] [address] Dr. Jaz Barajas MANUAL DIFF REQ NO Normal [facility] Comment on above: Performed By: #### P REGU #### [facility] [address] [place] [address] Dr. Jaz Barajas MCH (RBC) [Entitic mass] 27.7 pg Normal 26.7-34.0 [facility] Comment on above: Performed By: #### P REGU #### [facility] [address] [place] [address] Dr. Jaz Barajas MCHC (RBC) [Mass/Vol] 33.2 g/dL Normal 29.9-35.2 [facility] Comment on above: Performed By: #### P REGU #### [facility] [address] [place] [address] Dr. Jaz Barajas MCV (RBC) [Entitic vol] 83.5 fL Normal 81.0-99.0 [facility] Comment on above: Performed By: #### P REGU #### [facility] [address] [place] [address] Dr. Jaz Barajas MONO # 0.8 103/ul Normal 0.3-0.8 [facility] Comment on above: Performed By: #### P REGU #### [facility] [address] [place] [address] Dr. Jaz Barajas Monocytes/100 WBC (Bld) 7.4 % Normal 1.7-12.0 [facility] Comment on above: Performed By: #### P REGU #### [facility] [address] [place] [address] Dr. Jaz Barajas NEUT # 6.6 103/ul Critically high 1.4-6.5 [facility] Comment on above: Performed By: #### P REGU #### [facility] [address] [place] [address] Dr. Jaz Barajas Neutrophils/100 WBC (Bld) 63.6 % Normal 43.0-75.[address] [facility] Comment on above: Performed By: #### P REGU #### [facility] [address] [place] [address] Dr. Jaz Barajas Platelet mean volume (Bld) [Entitic vol] 11.5 fL Normal 9.5-13.5 [facility] Comment on above: Performed By: #### P REGU #### [facility] [address] [place] [address] Dr. Jaz Barajas PLT 227 103/ul Normal 150-450 [facility] Comment on above: Performed By: #### P REGU #### [facility] [address] [place], [place] [address] Dr. Jaz Barajas RBC 4.91 106/ul Normal 4.20-5.40 [facility] Comment on above: Performed By: #### P REGU #### [facility] [address] [place], [place] [address] Dr. Jaz Barajas WBC 10.4 103/ul Normal 4.0-11.0 [facility] Comment on above: Performed By: #### P REGU #### [facility] [address] [place], [place] [address] Dr. Jaz Barajas CTA CHEST WO W [...] by: JEYSON BLANTON Date: 2022-01-09 09:47 Normal [facility] D-DIMERon 01-09-2022 D-DIMER 0.56 mg/L FEU Critically high 0.19-0.50 [facility] Comment on above: Result Comment: test repeated critical value verified Performed By: #### D DIM, PT, PTT #### [facility] [address] [place] [address] Dr. Jaz Barajas D-DIMER COMMENTS SEE BELOW Normal [facility] Comment on above: Result Comment: Incr [...] By: #### D DIM, PT, PTT #### [facility] [address] [place] [address] Dr. Jaz Barajas ER URINE PROFILEon 2 Bilirubin Ql (U) Negative Normal NEGATIVE [facility] Comment on above: Performed By: #### P ROGLCM #### [facility] [address] [place] [address] Dr. Jaz Barajas Clarity (U) CLEAR Normal CLEAR [facility] Comment on above: Performed By: #### P ROGLCM #### [facility] [address] [place] [address] Dr. Jaz Barajas Color (U) YELLOW Normal YELLOW [facility] Comment on above: Performed By: #### P ROGLCM #### [facility] [address] [place] [address] Dr. Jaz Barajas ERUAHD A micrscopic examina tion will be performed if indicated. Normal [facility] Comment on above: Performed By: #### P ROGLCM #### [facility] [address] [place] [address] Dr. Jaz Barajas Glucose Ql (U) 500 mg/dl Abnormal NEGATIVE [facility] Comment on above: Performed By: #### P ROGLCM #### [facility] [address] [place] [address] Dr. Jaz Barajas Hemoglobin Ql (U) Negative Normal NEGATIVE [facility] Comment on above: Performed By: #### P ROGLCM #### [facility] [address] [address] [address] Jaz Barajas Ketones Ql (U) Negative Normal NEGATIVE [facility] Comment on above: Performed By: #### P ROGLCM #### [facility] [address] [place] [address] Dr. Jaz Barajas LEUKOCYTES Negative Normal NEGATIVE [facility] Comment on above: Performed By: #### P ROGLCM #### [facility] [address] [address] [address] Jaz Barajas Nitrite Ql (U) Negative Normal NEGATIVE [facility] Comment on above: Performed By: #### P ROGLCM #### [facility] [address] [place] [address] Dr. Jaz Barajas pH (U) 6.0 [pH] Normal 5-9 [facility] Comment on above: Performed By: #### P ROGLCM #### [facility] [address] [place] [address] Dr. Jaz Barajas SPEC GRAVITY >=1.030 Abnormal 1.005-<=1.0 25 [facility] Comment on above: Performed By: #### P ROGLCM #### [facility] [address] [place] [address] Dr. Jaz Barajas UA PROTEIN Negative Normal NEGATIVE/ TRACE [facility] Comment on above: Performed By: #### P ROGLCM #### [facility] [address] [place] [address] Dr. Jaz Barajas UR MICRO IND NOT INDICATED Normal [facility] Comment on above: Performed By: #### P ROGLCM #### [facility] [address] [place] [address] Dr. Jaz Barajas Urobilinogen Qn (U) 0.2 {Oxana'U}/dL Normal 0.2 - 1.0 [facility] Comment on above: Performed By: #### P ROGLCM #### [facility] [address] [place] [address] Dr. Jaz Barajas PH VENOUS BLOODon 01-09-2022 PCO2 VENOUS 39.2 mmHg Critically low 40.0-52.0 [facility] Comment on above: Performed By: #### P HVEN #### [facility] [address] [address] [address] Jaz Barajas pH VENOUS 7.409 Normal 7.330-7.430 [facility] Comment on above: Performed By: #### P HVEN #### [facility] [address] [address] [address] Jaz Barajas URon 01-09-2022 , QUAL Negative Normal NEGATIVE [facility] Comment on above: Performed By: #### P REGU #### [facility] [address] [place] [address] Dr. Jaz Barajas PROF 14(COMP METB)on 022 Albumin [Mass/Vol] 3.2 g/dL Critically low 3.4-5.0 [facility] Comment on above: Performed By: #### P REGU #### [facility] [address] [address] [address] Jaz Barajas Albumin/Globulin [Mass ratio] 0.8 {ratio} Normal [facility] Comment on above: Performed By: #### P REGU #### [facility] [address] [place] [address] Dr. Jaz Barajas ALP [Catalytic activity/Vol] 109 U/L Normal 46-116 [facility] Comment on above: Performed By: #### P REGU #### [facility] [address] [address] [address] Jaz Barajas ALT [Catalytic activity/Vol] 95 U/L Critically high 14-59 [facility] Comment on above: Performed By: #### P REGU #### [facility] [address] [address] [address] Jaz Barajas Anion gap [Moles/Vol] 11.7 mmol/L Normal [facility] Comment on above: Performed By: #### P REGU #### [facility] [address] [place] [address] Dr. Jaz Barajas AST [Catalytic activity/Vol] 44 U/L Critically high 15-37 [facility] Comment on above: Performed By: #### P REGU #### [facility] [address] [address] [address] Jaz Barajas Bilirubin [Mass/Vol] 0.3 mg/dL Normal 0.2-1.0 [facility] Comment on above: Performed By: #### P REGU #### [facility] [address] [address] [address] Jaz Barajas Calcium [Mass/Vol] 8.8 mg/dL Normal 8.5-10.1 [facility] Comment on above: Performed By: #### P REGU #### [facility] [address] [address] [address] Jaz Barajas Chloride [Moles/Vol] 102 mmol/L Normal 98-107 [facility] Comment on above: Performed By: #### P REGU #### [facility] [address] [place] [address] Dr. Jaz Barajas CO2 [Moles/Vol] 25.3 mmol/L Normal 21.0-32.0 [facility] Comment on above: Performed By: #### P REGU #### [facility] [address] [place] [address] Dr. Jaz Barajas Creatinine [Mass/Vol] 0.86 mg/dL Normal 0.55-1.02 [facility] Comment on above: Performed By: #### P REGU #### [facility] [address] [place] [address] Dr. Jaz Barajas EGFR-AF NAURUAN >60 Normal >=[address] [facility] Comment on above: Performed By: #### P REGU #### [facility] [address] [address] [address] Jaz Barajas EGFR-NON AF NAURUAN >60 Normal >=60 [facility] Comment on above: Performed By: #### P REGU #### [facility] [address] [place] [address] Dr. Jaz Barajas Globulin (S) [Mass/Vol] 3.9 g/dL Normal [facility] Comment on above: Performed By: #### P REGU #### [facility] [address] [address] [address] Jaz Barajas Glucose [Mass/Vol] 230 mg/dL Critically high 74-106 T [facility] Comment on above: Performed By: #### P REGU #### [facility] [address] [address] [address] Jaz Barajas Potassium [Moles/Vol] 4.0 mmol/L Normal 3.5-5.1 [facility] Comment on above: Performed By: #### P REGU #### [facility] [address] [address] [address] Jaz Barajas Protein [Mass/Vol] 7.1 g/dL Normal 6.4-8.2 [facility] Comment on above: Performed By: #### P REGU #### [facility] [address] [address] [address] Jaz Barajas Sodium [Moles/Vol] 135 mmol/L Critically low 136-145 [facility] Comment on above: Performed By: #### P REGU #### [facility] [address] [address] [address] Jaz Barajas Urea nitrogen [Mass/Vol] 15.0 mg/dL Normal 7.0-18.0 [facility] Comment on above: Performed By: #### P REGU #### [facility] [address] [address] [address] Jaz Barajas Urea nitrogen/Creatinin e [Mass ratio] 17.4 mg/mg Normal [facility] Comment on above: Performed By: #### P REGU #### [facility] [address] [address] [address] Jaz Barajas PROTIMEon 01-09-2022 INR Coag (PPP) [Relative time] 0.96 {INR} Normal [facility] Comment on above: Performed By: #### D DIM, PT, PTT #### [facility] [address] [place] [address] Dr. Jaz Barajas INR GUIDELINES SEE BELOW Normal [facility] Comment on above: Result Comment: UMU RED INR: 2.0 - 3.0 CONDITIONS NOT LISTED BELOW 2.5 - 3.5 FOR PROSTHETIC HEART VALVE REPLACEMENT 2.5 - 3.5 RECURRENT THROMBOSIS Performed By: #### D DIM, PT, PTT #### [facility] [address] [place] [address] Dr. Jaz Barajas PT Coag (PPP) [Time] 10.4 s Normal 9.0-11.6 [facility] Comment on above: Performed By: #### D DIM, PT, PTT #### [facility] [address] [place] [address] Dr. Jaz Barajas PTTon 01-09-2022 aPTT Coag (Bld) [Time] 28.8 s Normal 22.3-36.[address] [facility] Comment on above: Performed By: #### D DIM, PT, PTT #### [facility] [address] [place] [address] Dr. Jaz Barajas TROPONIN, HIGH SENSITIVITYon 01-09-2022 HSTROP 4.5 pg/mL Normal 4.0-51.[address] [facility] Comment on above: Result Comment: CUT- OFF POINTS HAVE BEEN ESTABLISHED BASED ON THE FOURTH UNIVERSAL DEFINITIONS OF MYOCARDIAL INFARCTION. THE UPPER REFERENCE LIMIT (URL) OF TROPONIN, DEFINED THE 99TH PERCENTILE OF cTnI DISTRIBUTION IN A REFERENCE POPULATION, HAS BEEN CONFIRMED THE DECISION THRESHOLD FOR [place] DIAGNOSIS. Performed By: #### P ROGLCM #### [facility] [address] [place] [address] Dr. Jaz Barajas TSHon 01-09-2022 TSH 2.769 uIU/mL Normal 0.358-3.740 [facility] Comment on above: Performed By: #### P REGU #### [facility] [address] [place] [address] Dr. Jaz Barajas TSH RANGE SEE BELOW Normal [facility] Comment on above: Result Comment: <0.3 4 UIU/ml HYPERTHYROID 0.34-5.60 UIU/ml EUTHYROID >5.60 UIU/ml HYPOTHYROID Performed By: #### P REGU #### [facility] [address] [place] [address] Dr. Jaz Barajas XR CHEST 1 Von [...] JOSE EDUARDO RIVERS Date: 2022-01-09 08:29 Normal [facility] Vital Signs Date Time Vital Sign Value Performing Clinician Facility 06-16-2024 17:05-0400 Body height 160 cm Ariane Russell LOG BRANDER Work Phone: [facility] 06-16-2024 17:05-0400 Body mass index (BMI) [Ratio] 43.65 kg/m2 Ariane Russell [employer] BR[employer] Work Phone: [facility] 06-16-2024 17:05-0400 Body temperature 98.8 [degF] Ariane Russell LOG BR[employer]ER Work Phone: [facility] 06-16-2024 17:05-0400 Body weight 111.77 kg Ariane Garciajose LOG BR[employer]ER Work Phone: [facility] 06-16-2024 17:05-0400 Diastolic blood pressure 80 mm[Hg] Ariane Russell LOG BR[employer]ER Work Phone: [facility] 06-16-2024 17:05-0400 Heart rate 81 /min Ariane Russell [employer] BR[employer] Work Phone: [facility] 06-16-2024 17:05-0400 Respiratory rate 18 /min Ariane Russell LOG BR[employer]ER Work Phone: [facility] 06-16-2024 17:05-0400 SaO2% (BldA) [Mass fraction] 98 % Ariane Wells [employer] BR[employer]ER Work Phone: [facility] 06-16-2024 17:05-0400 Systolic blood pressure 110 mm[Hg] Ariane Wells LOG BRANDER Work Phone: [facility] 11-27-2023 12:54-0400 Body temperature 97.88 [degF] Riky Rey [facility] 11-27-2023 12:54-0400 Diastolic blood pressure 86 mm[Hg] Riky Le [facility] 11-27-2023 12:54-0400 Heart rate 78 /min Rikychristian Le [facility] 11-27-2023 12:54-0400 Respiratory rate 20 /min Rikychristian Le [facility] 11-27-2023 12:54-0400 SaO2% (BldA) [Mass fraction] 98 % Rikychristian Le [facility] 11-27-2023 12:54-0400 Systolic blood pressure 133 mm[Hg] Riky Rey [facility] Encounters Encounter Date Encounter Type Care Provider Facility Start: 06-23-2024 End: 06-23-2024 Refill Ariane Wells LOG BR[employer]ER Work Phone: [facility] Comment on above: Yeast infection (Germaine ed Dx) Start: 06-16-2024 End: 06-16-2024 Office outpatient visit 25 minutes Ariane Wells LOG BRANDER Work Phone: [facility] Comment on above: Encounter for well w miya exam with routine gynecological exam (Primary Dx); Vaginal discharge; Screening for cervical cancer; Class 3 severe obesity due to excess calories without serious comorbidity with body mass index (BMI) of 40.0 to 44.9 in adult (CMS/HCC); Generalized anxiety disorder with panic attacks (CMS/HCC) Start: 06-16-2024 End: 06-16-2024 ambulatory ARIANE WELLS Not Available Start: 06-16-2024 End: 06-16-2024 Bamboo flowsheet Ariane Wells LOG BRANDER Work Phone: [facility] Start: 06-16-2024 End: 06-23-2024 Bamboo flowsheet Ariane Wells LOG BRANDER Work Phone: [facility] Start: 06-16-2024 End: 06-23-2024 Clinisync Result Encounter Ariane Wells LOG BR[employer]ER Work Phone: [facility] Unsolicited Start: 06-16-2024 End: 06-16-2024 Patient encounter procedure Ariane Wells LOG BRANDER Work Phone: [facility] Start: 05-30-2024 End: 06-03-2024 Clinisync Result Encounter Generic External Data Provider [facility] Unsolicited Start: 05-30-2024 End: 06-03-2024 Clinisync Result Encounter Generic External Data Provider [facility] Unsolicited Start: 05-26-2024 End: 05-26-2024 Refill Ariane Wells LOG BR[employer]ER Work Phone: [facility] Comment on above: Candidiasis of vagin a (Primary Dx) Start: 05-11-2024 End: 05-11-2024 Office outpatient visit 25 minutes Joann A Felter MAINTENANCE ENGINEER-FLATBED OWNER OPERATOR Work Phone: [facility] Comment on above: 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) Start: 05-11-2024 End: 05-11-2024 ambulatory JOANN A FELTER Not Available Start: 05-11-2024 End: 05-11-2024 Bamboo flowsheet Joann A Felter MAINTENANCE ENGINEER-FLATBED OWNER OPERATOR Work Phone: [facility] Start: 05-11-2024 End: 05-11-2024 Bamboo flowsheet Joann A Felter MAINTENANCE ENGINEER-FLATBED OWNER OPERATOR Work Phone: [facility] Start: 04-29-2024 End: 04-29-2024 Patient encounter procedure Joann A Felter MAINTENANCE ENGINEER-FLATBED OWNER OPERATOR Work Phone: [facility] Comment on above: Rash and other nonsp ecific skin eruption (Primary Dx) Start: 04-29-2024 End: 04-29-2024 ambulatory JOANN A FELTER Not Available Start: 04-29-2024 End: 04-29-2024 Bamboo flowsheet Joann A Felter MAINTENANCE ENGINEER-FLATBED OWNER OPERATOR Work Phone: [facility] Start: 04-29-2024 End: 04-29-2024 Bamboo flowsheet Joann A Felter MAINTENANCE ENGINEER-FLATBED OWNER OPERATOR Work Phone: [facility] Start: 03-16-2024 End: 03-16-2024 ambulatory ARIANE AICHHOLZ Not Available Start: 02-02-2024 End: 02-02-2024 ambulatory Rush Garcia MD Facility: [facility] Start: 01-15-2024 End: 01-15-2024 ambulatory ARIANE AICHHOLZ Not Available Start: 12-25-2023 End: 12-25-2023 ambulatory ARIANE AICHHOLZ Not Available Start: 11-27-2023 End: 11-27-2023 Emergency department patient visit Riky Le [place] [place] Start: 11-27-2023 End: 11-27-2023 Emergency department patient visit Riky Le [facility] Start: 12-14-2022 End: 12-15-2022 ambulatory FLATBED OWNER OPERATOR ARIANE AICHHOLZ Facility:[facility] Start: 12-11-2022 End: 12-12-2022 ambulatory FLATBED OWNER OPERATOR ARIANE AICHHOLZ Facility:[facility] Start: 11-15-2022 End: 11-15-[address] SKY DAVIS . Facility:[facility] Start: 11-10-2022 End: 11-10-[address] QUANG LANDA . Facility:[facility] Start: 08-18-2022 End: 08-18-2022 ambulatory GABINO CARROLL . Facility:[facility] Start: 07-09-2022 End: 07-09-[address] SKY DAVIS . Facility:[facility] Start: 05-14-2022 End: 05-14-2022 ambulatory FLATBED OWNER OPERATOR ARIANE AICHHOLZ Facility:[facility] Start: 05-13-2022 Encounter for preprocedural laboratory examination DR ROBERTO APONTE [facility] Start: 05-08-2022 End: 05-09-[address] ROBERTO APONTE Facility:[facility] Start: 05-08-2022 End: 05-09-2022 Encounter for preprocedural laboratory examination DR ROBERTO APONTE Facility:[facility] Start: 04-18-2022 End: 04-18-2022 ambulatory FLATBED OWNER OPERATOR ARIANE AICHHOLZ Facility:[facility] Start: 04-01-2022 End: 04-02-2022 ambulatory FLATBED OWNER OPERATOR ARIANE AICHHOLZ Facility:[facility] Start: 02-06-2022 End: 02-07-2022 ambulatory FLATBED OWNER OPERATOR ARIANE AICHHOLZ Facility:[facility] Start: 01-31-2022 End: 02-01-2022 ambulatory AMINATA BOURGEOIS Facility:[facility] Start: 01-24-2022 ambulatory FLATBED OWNER OPERATOR ARIANE AICHHOLZ Facil ity:[facility] Start: 01-09-2022 End: 01-09-2022 ambulatory GABINO CARROLL . Facility:[facility] Procedures Date Procedure Procedure Detail Performing Clinician Start: 06-16-2024 IGP,APTIMA HPV,AGE GDLN Ariane Russell LOG BRANDER Work Phone: Start: 06-16-2024 Microscopic observation [Identifier] in Cervix by Cyto stain Ariane Wells LOG BRANDER Work Phone: Start: 05-30-2024 UPPER RESPIRATORY CULTURE Generic Electric Truck Driver al Data Provider Start: 04-29-2024 SKIN / NAIL BIOPSY Joann Owens MAINTENANCE ENGINEER-FLATBED OWNER OPERATOR Work Phone: Start: 06-20-2020 Microscopic observation [Identifier] in Cervix by Cyto stain Joann Owens MAINTENANCE ENGINEER-FLATBED OWNER OPERATOR Work Phone: Start: 12-04-2016 Colonoscopy Riky Le Comment on [...] Treatment Date Care Activity Detail Author Start: 06-16-2027 Screening for malignant neoplasm of cervix [facility] Start: 01-06-2025 Urine screening for protein Diabetes: Urine Protein Screening [facility] Start: 08-10-2024 End: 08-10-2024 Patient encounter procedure 08/10/2024 3:40 PM EST Office Visit [facility] [address] [place] [id number] Joann Owens, MAINTENANCE ENGINEER-FLATBED OWNER OPERATOR [address] [place] [address] [facility] Start: 07-26-2024 End: 07-26-2024 Patient encounter procedure 07/26/2024 5:00 PM EST Office Visit [facility] [address] [place] [address] Ariane Wells NP [address] [place] [address] [facility] Start: 06-16-2024 End: 06-16-2025 THINPREP IMAGING PAP AND HPV DNA REFLEX HPV 16,18 THINPREP IMAGING PAP AND HPV DNA REFLEX HPV 16,18 Pathology and Cytology Routine Encounter for well woman exam with routine gynecological exam Expected: 06/16/2024 (Approximate), Expires: 06/16/2025 [facility] Comment on above: Expected: 06/16/2024 (Approximate), Expi res: 06/16/2025 Start: 06-16-2024 End: 06-16-2025 VAGINITIS (HTRX) VAGINITIS (HTRX) Lab Routine Vaginal discharge Expected: 06/16/2024 (Approximate), Expires: 06/16/2025 [facility] Work Phone: Comment on above: Expected: 06/16/2024 (Approximate), Expi res: 06/16/2025 Start: 06-16-2024 End: 06-16-2024 Patient encounter procedure [facility] Comment on above: Arrived Start: 05-11-2024 End: 05-11-2024 Patient encounter procedure [facility] Comment on above: Arrived Start: 04-29-2024 End: 04-29-2024 Patient encounter procedure 04/29/2024 3:25 PM EDT Office Visit [facility] [address] [place] [phone] Joann Owens APRN-FORREST [address] [facility] [address] [place] [address] Granuloma annulare [facility] Comment on above: Granuloma annulare Start: 04-08-2024 Hemoglobin A1c measurement Diabetes: Hemoglobin A1C [facility] Start: 06-20-2023 Screening for malignant neoplasm of cervix [facility] Start: 2018 Screening for malignant neoplasm of cervix HPV/Cotest [facility] Start: 1998 Glaucoma screening Diabetes: Retinopathy Screening [facility] Cytology Cervical or vaginal smear or scraping study Pap smear Pathology and Cytology Routine Encounter for well woman exam with routine gynecological exam Ordered: 06/16/2024 [facility] Comment on above: Ordered: 06/16/2024 Dermatopathology exam Dermatopat hology exam Pathology and Cytology Timed Rash and other nonspecific skin eruption Release Upon Ordering for 1 Occurrences starting 04/29/2024 [facility] Healthcare Work Phone: Comment on above: Release Upon Ordering for 1 Occurrences starting 04/29/2024 Immunizations Immunization Date Immunization Notes Care Provider Kelsey kenney 08-20-2021 Moderna SARS-CoV-2 Vaccination Joann Owens MAINTENANCE ENGINEER-FLATBED OWNER OPERATOR Work Phone: [facility] Payers Date Payer Category Payer Medicaid [id number] 2023 Unknown 2022 Medicaid [id number] 2022 Medicaid [id number] 1988 Unknown [id number] 2.16.84 0.1.464017.3.579.2.593 1988 Unknown [id number] 2.16.84 0.1.744974.3.579.2.593 1988 Unknown [id number] 2.16.84 0.1.695136.3.579.2.593 1988 Unknown [id number] 2.16.84 0.1.696232.3.579.2.593 1988 Unknown [id number] 2.16.84 0.1.596244.3.579.2.593 1988 Unknown [id number] 2.16.84 0.1.767135.3.579.2.593 1988 Unknown [id number] 2.16.84 0.1.611656.3.579.2.593 1988 Unknown [id number] 2.16.84 0.1.239170.3.579.2.593 1988 Unknown [id number] 2.16.84 0.1.922971.3.579.2.593 1988 Unknown [id number] 2.16.84 0.1.312108.3.579.2.593 1988 Unknown [id number] 2.16.84 0.1.316174.3.579.2.593 1988 Unknown [id number] 2.16.84 0.1.655132.3.579.2.593 1988 Unknown [id number] 2.16.84 0.1.246025.3.579.2.593 1988 Unknown [id number] 2.16.8 40.1.279119.3.579.2.727 1988 Unknown [id number] 2.16. 840.1.345108.3.579.2.196 1988 Unknown [id number] 2.16.84 0.1.495108.3.579.2.1259 1988 Unknown [id number] 2.16.84 0.1.278794.3.579.2.1259 1988 Unknown [id number] 2.16.84 0.1.985295.3.579.2.1259 1988 Unknown [id number] 2.16.84 0.1.021426.3.579.2.1259 1988 Unknown [id number] 2.16.84 0.1.180126.3.579.2.1259 1988 Unknown [id number] 2.16.84 0.1.420671.3.579.2.1259 1959 Unknown [id number] 1959 Unknown [id number] Social History Date Type Detail Facility Start: 02-20-2022 Tobacco smoking status Heavy t obacco smoker (finding) [facility] Tobacco smoking status Never [facility] Start: 03-16-2024 End: 05-11-2024 Sex Assigned At Female Braulio Juarez [facility] Start: 12-25-2023 [facility] Start: 12-25-2023 Tobacco use and exposure Smokeless tobacco non-user [facility] Start: 04-29-2024 End: 05-11-2024 Alcoholic beverage intake Ex-drinker (finding) [facility] Start: 03-16-2024 End: 05-11-2024 History of Social function [facility] Start: 12-25-2023 Alcohol Comment caffine: coffe e: 20oz and soda: 1.5L bottle daily [facility] Start: 1988 Sex assigned at Not on file [facility] Medical Equipment Procedure Code Equipment Code Equipment Origin al Text Equipment Identifier Dates [id number] Start: 01-28-2023 End: 03-16-2025 Functional Status Date Assessment Result Facility 11-27-2023 Functional Status N/A [facility] Clinical Notes 05-14-2022 to 06-16-2024 Ariane Wells NP - 06/16/2024 6:00 PM EDGuillaume Wells NP - 06/16/2024 5:57 PM Chriss Wells NP - 06/16/2024 5:57 PM EDANAHI MCCALL - 06/16/2024 5:00 PM EDT Note Date & Type Note Facility 06-16-2024 History of Present illness Narrative Associated Problem(s): Generalized anxiety disorder with panic attacks (CMS/HCC) Worsening anxiety while in the car Will try increasing buspar 10mg TID Fu in 6 weeks Associated Problem(s): Encounter for well woman exam with routine gynecological exam Thin prep Fu as per PAP indications Associated Problem(s): Vaginal discharge Health trax vaginitis exam Pt is having normal periods in the last three months now Lasting 5-7 days Recent one she had she did not spot or had a light bleed it came on heavy until the 6th day and started lighting up Pt does not experience internal pain during intercourse however she does have external pain where her scar is Pt is currently experiencing discharge She is having vaginal dryness No odor however she is having itchiness Images from the original note were not included. Subjective Marilia Vera is a 34 y.o. female who presents for No chief complaint on file. Review of Systems Objective Resp. rate 18, height 5' 3 , weight 246 lb 6.4 oz. Images from the original note were not included. Marilia Vera is a 34 y.o. female presents with chief complaint of No chief complaint on file. HPI: Gynecologic Exam The patient's primary symptoms include pelvic pain and vaginal discharge. The patient's pertinent negatives include no genital itching, genital lesions, genital odor, genital rash, missed menses or vaginal bleeding. The pain is mild. She is not . Associated symptoms include painful intercourse (at times). Pertinent negatives include no abdominal pain, back pain, chills, constipation, diarrhea, dysuria, fever, frequency, headaches, hematuria, nausea, rash, sore throat or vomiting. The vaginal discharge was clear. The vaginal bleeding is typical of menses. She has not been passing clots. She has not been passing tissue. She has tried nothing for the symptoms. She is sexually active. No, her partner does not have an STD. She uses nothing for contraception. Her menstrual history has been regular. There is no history of a section, menorrhagia or metrorrhagia. SUBJECTIVE: MEDICATIONS: Current Outpatient Medications Medication Instructions albuterol HFA 90 mcg/act inhaler 2 puffs, Inhalation, Every 6 hours PRN ARIPiprazole (ABILIFY) 15 mg, Oral, Daily betamethasone dipropionate (Diprolene) 0.05 % ointment Apply to affected areas, up to twice a day when flared, do not use one the face, groin, or underarms, 30 day supply betamethasone valerate (Valisone) 0.1 % cream Apply to affected areas, up to twice a day when flared, do not use one the face, groin, or underarms, 30 day supply busPIRone (BUSPAR) 10 mg, Oral, 3 times daily clobetasol (Temovate) 0.05 % cream Topical, Daily, Apply to affected area once a day for up to 8 weeks. No use on face Continuous Glucose Sensor (FreeStyle Ksenia 2 Sensor) misc CHANGE SENSOR EVERY 14 DAYS cyclobenzaprine (FLEXERIL) 10 mg, Oral, Every 12 hours PRN, May take 1/2-1 pill every 12 hours FLUoxetine (PROZAC) 40 mg, Oral, Daily FLUoxetine (PROZAC) 20 mg, Oral, Daily gabapentin (NEURONTIN) 100 mg, Oral, 3 times daily glucose blood test strip Twice a day, Use as instructed HumuLIN R U-500 KWIKPEN 500 UNIT/ML CONCENTRATED injection INJECT 80 UNITS TWICE A DAY PLUS ISS 15>150 (EXPECT DAILY DOSE 225 UNITS) insulin lispro (HumaLOG KWIKPEN) 100 UNIT/ML injection as directed Subcutaneous Jardiance 25 mg, Oral, Daily magnesium 250 MG tablet Every 24 hours metFORMIN XR (GLUCOPHAGE-XR) 1,000 mg, Oral, 2 times daily OneTouch Ultra test strip USE ONE BEFORE EACH MEAL AND AT BEDTIME pantoprazole (PROTONIX) 40 mg, Oral, Daily PRN pravastatin (PRAVACHOL) 20 mg, Oral, Every evening spironolactone (ALDACTONE) 50 mg, Oral, Daily tiZANidine (ZANAFLEX) 4 mg, Oral traZODone (DESYREL) 100 mg, Oral, Nightly ALLERGIES: Allergies Allergen Reactions Prednisone REVIEW OF SYMPTOMS: Review of Systems Constitutional: Negative for appetite change, chills, fatigue, fever and unexpected weight change. HENT: Negative for congestion, ear pain, sinus pressure, sinus pain and sore throat. Eyes: Negative for pain, discharge, redness and visual disturbance. Breasts: Negative for breast mass and breast discharge. Respiratory: Negative for apnea, cough, chest tightness, shortness of breath and wheezing. Cardiovascular: Negative for chest pain, palpitations and leg swelling. Gastrointestinal: Negative for abdominal pain, blood in stool, constipation, diarrhea, nausea and vomiting. Genitourinary: Positive for pelvic pain and vaginal discharge. Negative for decreased urine volume, difficulty urinating, dysuria, frequency, hematuria, menorrhagia and missed menses. Musculoskeletal: Negative for arthralgias, back pain, gait problem, joint swelling and myalgias. Skin: Negative for color change, rash and wound. Neurological: Negative for dizziness, tremors, seizures, syncope, weakness and headaches. Psychiatric/Behavioral: Negative for agitation, behavioral problems, hallucinations, self-injury and suicidal ideas. The patient is nervous/anxious. Hematological: Negative for adenopathy. Does not bruise/bleed easily. Endocrine: Negative for cold intolerance, heat intolerance, polydipsia, polyphagia and polyuria. Allergic/Immunologic: Negative for environmental allergies and food allergies. PAST MEDICAL HISTORY Past Medical History: Diagnosis Date Anxiety and depression (CMS/HCC) Diabetes (CMS/HCC) Past Surgical History: Procedure Laterality Date ANKLE SURGERY FOOT SURGERY family history includes Breast cancer in her maternal grandmother; Diabetes in her father; Hypertension in her mother. OBJECTIVE: Visit Vitals BP 110/80 (BP Location: Left arm, Patient Position: Sitting, BP Cuff Size: Large adult) Pulse 81 Temp 98.8 F (Temporal) Resp 18 Ht 5' 3 Wt 246 lb 6.4 oz SpO2 98% BMI 43.65 kg/m Smoking Status Every Day BSA 2.23 m Physical Exam Vitals and nursing note reviewed. Exam conducted with a him clerk present. Constitutional: General: She is not in acute distress. Appearance: Normal appearance. HENT: Head: Normocephalic and atraumatic. Right Ear: External ear normal. Left Ear: External ear normal. Nose: Nose normal. Mouth/Throat: Mouth: Mucous membranes are moist. Eyes: Extraocular Movements: Extraocular movements intact. Conjunctiva/sclera: Conjunctivae normal. Cardiovascular: Rate and Rhythm: Normal rate and regular rhythm. Pulses: Normal pulses. Heart sounds: Normal heart sounds. Pulmonary: Effort: Pulmonary effort is normal. Breath sounds: Normal breath sounds. Chest: Chest wall: No mass or deformity. Breasts: Agustin Score is 5. Right: Normal. No inverted nipple, nipple discharge, skin change or tenderness. Left: Normal. No inverted nipple, nipple discharge, skin change or tenderness. Abdominal: General: Bowel sounds are normal. There is no distension. Palpations: Abdomen is soft. There is no mass. Tenderness: There is no abdominal tenderness. Hernia: There is no hernia in the left inguinal area or right inguinal area. Genitourinary: Exam position: Lithotomy position. Pubic Area: No rash or pubic lice. Labia: Right: No rash, tenderness, lesion or injury. Left: No rash, tenderness, lesion or injury. Urethra: No urethral pain or urethral lesion. Vagina: No erythema, bleeding or prolapsed vaginal fernández. Cervix: Cervical bleeding present. No cervical motion tenderness, discharge, friability, lesion, erythema or eversion. Uterus: Normal. Not enlarged, not fixed, not tender and no uterine prolapse. Adnexa: Right adnexa normal and left adnexa normal. Right: No tenderness or fullness. Left: No tenderness or fullness. Rectum: Normal. Comments: Mild erythema vaginal wall Musculoskeletal: General: Normal range of motion. Cervical back: Normal range of motion. Rigidity present. Lymphadenopathy: Upper Body: Right upper body: No supraclavicular, axillary or pectoral adenopathy. Left upper body: No supraclavicular, axillary or pectoral adenopathy. Lower Body: No right inguinal adenopathy. No left inguinal adenopathy. Skin: General: Skin is warm and dry. Capillary Refill: Capillary refill takes 2 to 3 seconds. Findings: No rash. Neurological: General: No focal deficit present. Mental Status: She is alert and oriented to person, place, and time. Psychiatric: Mood and Affect: Mood normal. Behavior: Behavior normal. Thought Content: Thought content normal. Judgment: Judgment normal. ASSESSMENT AND PLAN: No follow-ups on file. Problem List Items Addressed This Visit Class 3 severe obesity due to excess calories with body mass index (BMI) of 40.0 to 44.9 in adult (CMS/HCC) Vaginal discharge Health trax vaginitis exam Relevant Orders VAGINITIS (HTRX) Encounter for well woman exam with routine gynecological exam - Primary Thin prep Fu as per PAP indications Relevant Orders THINPREP IMAGING PAP AND HPV DNA REFLEX HPV 16,18 Pap smear Generalized anxiety disorder with panic attacks (CMS/HCC) Worsening anxiety while in the car Will try increasing buspar 10mg TID Fu in 6 weeks Relevant Medications busPIRone (Buspar) 10 MG tablet Other Visit Diagnoses Screening for cervical cancer documented in this encounter [facility] 05-11-2024 History of Present illness Narrative Suture Removal Patient here for suture removal: No complaints of redness, drainage or swelling at site, compliant with wound care. Location: Right lower leg-anterior Procedure Performed: Punch biopsy Date of Procedure: 04/29/2024 All pertinent medical history, medications, and allergies were reviewed. General Exam: alert , oriented to person, place, and time , normal affect, well appearing Unaccompanied A focused exam completed based on patient reported problems, see below: 1. 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CMS/HCC) Right Lower Leg - Anterior Erythematous patch Counseled on Condition. Start Betamethasone ointment daily when flared, hold when clear. Condition is associated with diabetes. Patient is being treated by PCP for diabetes. If Betamethasone fails to improve condition recommend ILK injections Related Medications betamethasone dipropionate (Diprolene) 0.05 % ointment Apply to affected areas, up to twice a day when flared, do not use one the face, groin, or underarms, 30 day supply Next Visit: 3 months documented in this encounter [facility] 04-29-2024 History of Present illness Narrative Images from the original note were not included. Rash Location: bilateral lower legs Duration: started on the right lower leg in the last 6 months Severity: mild Quality: itchy at times Modifying Factors: none Associated symptoms: scabby like Treatments tried: Clobetasol cream, used daily -- burned and didn't seem to work and made it appear darker Current treatments: ^^ ^^ New patient, referred by ROSA Barnard All pertinent medical history, medications, and allergies were reviewed. General Exam: alert , oriented to person, place, and time , normal affect, well appearing Unaccompanied A focused exam completed based on patient reported problems, see below: 1. Rash and other nonspecific skin eruption Right Lower Leg - Anterior [place] patches and plaques Biopsy today, see procedure note. Lesion biopsy - Right Lower Leg - Anterior Type of biopsy: punch Informed consent: discussed and consent obtained Informed consent comment: The risks and benefits were discussed. Risks include, but are not limited to, bleeding, infection, scarring, pain, & nerve damage. An opportunity to ask questions prior to the procedure was permitted and questions were answered. Patient was prepped and draped in usual sterile fashion: Area cleansed with alcohol. Anesthesia: the lesion was anesthetized in a standard fashion Anesthetic: 1% lidocaine w/ epinephrine 1-100,000 buffered w/ 8.4% NaHCO3 Punch size: 3 mm (A biopsy by punch method was performed using a dermal punch) Suture size: 4-0 Suture type: nylon Suture type comment: Hemostasis was achieved with suture. Suture removal (days): 14 Hemostasis achieved with: suture Outcome: patient tolerated procedure well Post-procedure details: sterile dressing applied and wound care instructions given Post-procedure details comment: Emphasized the need to contact clinic for any signs of infection, uncontrollable bleeding, or complications. Dressing type: bandage Additional details: Amount of lidocaine used: 1 cc Number of sutures used: 2 Specimen sent for: H&E Photo taken Specimen A - Dermatopathology exam Differential Diagnosis: GA vs Scleroderma vs Necrobiosis Lipoidica vs other Check Margins: No Size of lesion: 0.3 x 0.3 cm Related Procedures Ambulatory referral to Dermatology Next Visit: 14 days s/r documented in this encounter [facility] 11-27-2023 Hospital Discharge instructions Patient Education 11/27/2023 15:37:23 Shoulder Pain [...] to strengthen the arm. General instructions Take [id number]-[id number]-mrentus and prescription medicines only as told by [...] provider. Document Revised: 05/03/2022 Document Reviewed: 05/03/2022 [employer] Patient Education 2022 [employer]. Follow Up Care 11/27/2023 12:54:30 With:Georgi Pfeiffer Address: [address] [place], [place] [id number] Business (1) When:11/30/2023 15:21:31 [facility] 11-27-2023 Evaluation + Plan note Extrac gerard [...] EDT, Weight Dosing XR Shoulder Complete Right [facility]04-17-2023 NotePROCEDURE: XR ANKLE RT MIN 3 VIEWS DATE: [...] Electronically authenticated by: HAYDE VAN Date: 2022-12-16 07:21[facility]04-17-2023 NotePROCEDURE: XR KNEE RT 4V or > DATE: 12/14/2022 9:31 AM CDT COMPARISONS: None CLINICAL INDICATION: Pain of right knee joint FINDINGS: There is no evidence of fractures or other osseous abnormalities. No evidence of right knee joint effusion IMPRESSION: Right knee radiographs show no evidence of significant abnormalities. Electronically authenticated by: HAYDE VAN Date: 2022-12-16 07:17[facility]09-13-2022 NoteOPERATIVE NOTE OPERATION DATE: 05/14/2022 PRIMARY CARE PROVIDER: Ariane Wells CNP SURGEON: Roberto Aponte M.D. PREOPERATIVE DIAGNOSIS: Left middle ear [...] taken to the recovery room in good condition.[facility] Vitamin D deficiency- Primary Type 2 diabetes mellitus without complication, with long-term current use of insulin ([facility]) Class 3 severe obesity due to excess calories without serious comorbidity with body mass index (BMI) of 40.0 to 44.9 in adult ([facility]) Muscle spasm Spasm of muscle Muscle spasm- Primary Spasm of muscle Class 3 severe obesity due to excess calories without serious comorbidity with body mass index (BMI) of 40.0 to 44.9 in adult ([facility]) Type 2 diabetes mellitus without complication, with long-term current use of insulin ([facility]) Current tobacco use Granuloma annulare Other specified erythematous condition Granuloma annulare- Primary Other specified erythematous condition Bipolar disorder, unspecified ([facility]) Bipolar disorder, unspecified Type 2 diabetes mellitus without complication, with long-term current use of insulin ([facility]) Class 3 severe obesity due to excess calories without serious comorbidity with body mass index (BMI) of 40.0 to 44.9 in adult ([facility]) Encounter for well woman exam with routine gynecological exam- Primary Vaginal discharge Leukorrhea, not specified as infective Screening for cervical cancer Screening for malignant neoplasm of the cervix Class 3 severe obesity due to excess calories without serious comorbidity with body mass index (BMI) of 40.0 to 44.9 in adult ([facility]) Generalized anxiety disorder with panic attacks ([facility]) documented in this encounter [facility] HealthcareEvaluation note* Diagnosis Vitamin D deficiency- Primary Type 2 diabetes mellitus without complication, with long-term current use of insulin ([facility]) Class 3 severe obesity due to excess calories without serious comorbidity with body mass index (BMI) of 40.0 to 44.9 in adult ([facility]) Muscle spasm Spasm of muscle Muscle spasm- Primary Spasm of muscle Class 3 severe obesity due to excess calories without serious comorbidity with body mass index (BMI) of 40.0 to 44.9 in adult ([facility]) Type 2 diabetes mellitus without complication, with long-term current use of insulin ([facility]) Current tobacco use Granuloma annulare Other specified erythematous condition Granuloma annulare- Primary Other specified erythematous condition Bipolar disorder, unspecified ([facility]) Bipolar disorder, unspecified Type 2 diabetes mellitus without complication, with long-term current use of insulin ([facility]) Class 3 severe obesity due to excess calories without serious comorbidity with body mass index (BMI) of 40.0 to 44.9 in adult ([facility]) Encounter for well woman exam with routine gynecological exam- Primary Vaginal discharge Leukorrhea, not specified as infective Screening for cervical cancer Screening for malignant neoplasm of the cervix Class 3 severe obesity due to excess calories without serious comorbidity with body mass index (BMI) of 40.0 to 44.9 in adult ([facility]) Generalized anxiety disorder with panic attacks ([facility]) Yeast infection- Primary [facility] Diagnosis Rash and other nonspecific skin eruption- Primary [facility]* Diagnosis 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[facility]) Type II or unspecified type diabetes mellitus with other specified manifestations, not stated as uncontrolled documented in this encounter [facility] HealthcareEvaluation note* Diagnosis Candidiasis of vagina- Primary Candidiasis of vulva and vagina documented in this encounter [facility] Narrative No data available for this section [facility] data available for this section [facility] Summary Purpose Family History No Family History Records Found No data available for this section No Family History Records FoundNo Family History Records FoundNo Family History Records Found Advance Directives No Advanced Directives Records FoundNo Advanced Directives Records FoundNo Advanced Directives Records FoundNo Advanced Directives Records Found Reason for Referral Specialty Diagnoses / Procedures Referred By Contac t Referred To Contact Diagnoses 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[facility]) Joann Owens, MAINTENANCE ENGINEER-FLATBED OWNER OPERATOR [address] [place] [address] Referral ID Status Reason Start Date Expiration Date V isits Requested Visits Authorized [id number] Pending Review 1 1 Additional Source Comments INFORMATION SOURCE (unrecogn ized section and content) DATE CREATED AUTHOR 12/19/2022 [facility] DATE CREATED AUTHOR AUTHOR'S ORGANIZ ATION 11/29/2023 [facility] DATE CREATED AUTHOR AUTHOR'S ORGANIZ ATION 02/13/2024 [facility] DATE CREATED AUTHOR AUTHOR'S ORGANIZ ATION 06/19/2024 [facility] dical Specialists EPIC Patient Care team informatio n (unrecognized section and content) Commercial Energy Auditor Relationship Specialty Start Date End Date Georges Shook MD [address] [place] [phone] PCP - General Family Medicine 02/19/23 Channing Freire MD [address] [place] [address] PCP - DELANEY Still [facility] 12/01/23 Commercial Energy Auditor Relationship Specialty Start Date End Date Georges Shook MD [address] [place] [phone] PCP - General Family Medicine 02/19/23 Channing Freire MD [address] [place] [address] PCP - NOM[facility]agjit Still [facility] 12/01/23 Commercial Energy Auditor Relationship Specialty Start Date End Date Georges Shook MD [address] [place] [phone] PCP - General Family Medicine 02/19/23 Channing Freire MD [address] [place] [facility] [place] [address] (Fax) PCP - [facility]S Cheko [facility] 12/01/23 Commercial Energy Auditor Relationship Specialty Start Date End Date Georges Shook MD [address] [place] [phone] PCP - General Family Medicine 02/19/23 Channing Freire MD [address] [place] [facility] [place] [address] (Fax) PCP - [facility] Cheko [facility] 12/01/23 Commercial Energy Auditor Relationship Specialty Start Date End Date Georges Shook MD [address] [place] [phone] PCP - General Family Medicine 02/19/23 Channing Freire MD [address] [facility] [place] [address] (Fax) PCP - [facility]agjit Still [facility] 12/01/23 Commercial Energy Auditor Relationship Specialty Start Date End Date Georges Shook MD [address] [place] [phone] PCP - General Family [facility] 02/19/23 Commercial Energy Auditor Relationship Specialty Start Date End Date Georges Shook MD [address] [place] [phone] PCP - General Family Medicine 02/19/23 Commercial Energy Auditor Relationship Specialty Start Date End Date Georges Shook MD [address] [place] [phone] PCP - General Family Medicine 02/19/23 Commercial Energy Auditor Relationship Specialty Start Date End Date Georges Shook MD [address] [place] [phone] PCP - General Family Medicine 02/19/23 Commercial Energy Auditor Relationship Specialty Start Date End Date Georges Shook MD [address] [place] [phone] PCP - General Family Medicine 02/19/23 Channing Freire MD [address] [place] [address] PCP - [facility] Cheko [facility] 12/01/23 Reason for Visit (unrecogniz ed section and content) Reason Comments Rash Specialty Diagnoses / Procedures Referred By Contac t Referred To Contact Dermatology Diagnoses Granuloma annulare Procedures DC OFFICE/OUTPATIENT NEW HIGH MDM 60 MINUTES Ariane Wells, SHIV [address] [place] [address] Joann Owens, MAINTENANCE ENGINEER-FLATBED OWNER OPERATOR [address] [facility] [address] [place] [address] Referral ID Status Reason Start Date Expiration Date V isits Requested Visits Authorized [id number] Closed Specialty Services Required 03/16/2024 09/12/2024 1 1 Reason Comments Suture / Staple Removal FOR RECORDS PERTAINING TO PATIENTS WHO ARE [...] BE BASED ON THE PRIMARY CLINICAL RECORDS. [facility] provides no warranty or guarantee of the accuracy or completeness of information in this document.
[2024-09-12 18:52] VITALS: BP 148/84; PULSE 73; TEMP 37; O2SAT 98; BMI 42.5
[2024-09-12 18:59] LABS: Glucometer 490 mg/dL (74-106)
--- NOTE | 2024-09-12 19:12 | ED.GENADUL1 ---
HPI HPI - General Adult General Chief complaint: Weakness Stated complaint: high blood sugar Time Seen by Provider: 09/12/24 19:06 History of Present Illness HPI narrative: This 34-year-old female with a history of diabetes who states she has been out of all of her medications for 1-1/2 weeks and specifically out of her insulin for 3 days presents for evaluation of generalized weakness with episodes of dizziness. She has polyuria and polydipsia. She has mild nausea but no vomiting. She has not had any diarrhea. She denies any chest pain or shortness of breath. She states that she has Medicaid and filled out the paperwork toward the end of the year but has not heard back yet whether or not her Medicaid has been approved. She states she was unable to get into her family physician for refills on her medications. Related Data Home Medications ?Medication ?Instructions ?Recorded ?Confirmed aripiprazole 10 mg tablet 10 mg PO QDAY 02/04/23 02/17/24 buspirone 10 mg tablet 10 mg PO BID 02/04/23 02/17/24 calcium carbonate (Calcium 600) 600 mg PO DAILY 02/04/23 02/17/24 calcium phosphate,dibasic 77 1 tab PO QDAY 02/04/23 02/17/24 mg-vitamin D3 400 unit tablet fluoxetine 40 mg capsule 40 mg PO QDAY 02/04/23 02/17/24 insulin regular hum U-500 conc 500 60 unit subcut TID 02/04/23 02/17/24 unit/mL(3 mL) subcut pen (Humulin R U-500 (Conc) Insulin Kwikpen) magnesium 250 mg tablet 250 mg PO DAILY 02/04/23 02/17/24 pantoprazole 40 mg tablet,delayed 40 mg PO Q12H PRN indigestion 02/04/23 02/17/24 release spironolactone 50 mg tablet 50 mg PO QDAY 02/04/23 02/17/24 trazodone 50 mg tablet 50 mg PO DAILY 02/04/23 02/17/24 cholecalciferol (vitamin D3) 50 2,000 unit PO DAILY 02/02/24 02/17/24 mcg (2,000 unit) tablet (Vitamin D3) empagliflozin 25 mg tablet 25 mg PO DAILY 02/02/24 02/17/24 (Jardiance) gabapentin 100 mg capsule 100 mg PO TID 02/02/24 02/17/24 metformin 500 mg tablet 500 mg PO BID 02/02/24 02/17/24 Previous Rx's ?Medication ?Instructions ?Recorded amoxicillin 500 mg capsule 500 mg PO TID 10 days #30 caps 05/30/24 loratadine 5 mg-pseudoephedrine ER 1 tab PO Q12H PRN nasal congestion 05/30/24 120 mg tablet,extended #20 tabs release,12hr (Claritin-D 12 Hour) yzuuczsksxfagme-diidfyuqnbtxbzc-AQ 10 ml PO Q6H PRN cold symptoms 06/03/24 2 mg-30 mg-10 mg/5 mL oral syrup #200 mL (Bromfed DM) ondansetron 4 mg disintegrating 4 mg PO Q6H PRN nausea and 06/03/24 tablet vomiting #12 tabs Allergies Allergy/AdvReac Type Severity Reaction Status Date / Time prednisone AdvReac Severe hyperglycem Verified 06/03/24 16:58 ia Opioid HPI Opioid Management Most Recent Opioid Data: Last Pain Scale 9 06/03/24 17:38 06/03/24 Review of Systems ROS Status of ROS 10 or more systems reviewed and unremarkable except as noted in history and below [facility] Social History Smoking status: Current every day smoker Little interest or pleasure in doing things: not at all Feeling down, depressed, or hopeless: not at all Exam Narrative Exam Narrative: Vital signs and Nursing Notes reviewed: Patient is afebrile with a normal pulse, blood pressure is mildly elevated at 148/84, she is not hypoxic with pulse ox of 98% on room air General: Awake, alert, oriented, no acute distress, lying comfortably on the stretcher HEENT: Normocephalic atraumatic, mucous membranes are slightly dry Neck: Supple, no meningeal signs, no anterior or posterior cervical lymphadenopathy Chest: Lungs are clear to auscultation with good air entry, there is no wheezing rhonchi or rales appreciated no accessory muscle use, patient is speaking in complete sentences-no chest wall tenderness to palpation CVS: Regular rate and rhythm S1-S2, no murmurs rubs or gallops, pulses are brisk and equal bilaterally ABD: Soft, nondistended, nontender, no rebound guarding or rigidity, bowel sounds are normal, no pulsatile masses appreciated Extremities: Moving all extremities Skin: Normal in appearance without rash,pallor, petechiae or purpura Neuro: No focal deficits Constitutional Vital Signs, click to edit/add: Last Vital Signs Temp 98.6 F 09/12/24 18:52 Pulse 73 09/12/24 18:52 Resp 18 09/12/24 18:52 BP 148/84 H 09/12/24 18:52 Pulse Ox 98 09/12/24 18:52 Course Vital Signs Vital signs: Vital Signs Temperature 98.6 F 09/12/24 18:52 Pulse Rate 73 09/12/24 18:52 Respiratory Rate 18 09/12/24 18:52 Blood Pressure 148/84 H 09/12/24 18:52 Pulse Oximetry 98 09/12/24 18:52 Temperature 98.6 F 09/12/24 18:52 Pulse Rate 73 09/12/24 18:52 Respiratory Rate 18 09/12/24 18:52 Blood Pressure 148/84 H 09/12/24 18:52 Pulse Oximetry 98 09/12/24 18:52 Medical Decision Making [facility] Narrative Medical decision making narrative: This 34-year-old female with a history of diabetes presents for evaluation of hyperglycemia with polyuria polydipsia, generalized weakness with episodes of dizziness. She has not had her medications in the past 3 days for her diabetes in the past several weeks for her other medications. She states that at the end of the year she filled out her Medicaid paperwork but has not heard yet if her Medicaid has been approved by the state. She denies any chest pain or shortness of breath. She denies any fever. She was noted to have a glucose of 490 upon arrival. An IV was placed and she was medicated with IV fluids and 10 units of IV insulin. She has a normal white count and hemoglobin. Electrolytes are normal with the exception of a glucose of 425 on the BMP. Urine is negative for infection but she is spilling glucose into her urine due to the elevated glucose. BUN and creatinine and acetone are negative. The results of the labs were discussed with her. She is feeling better. I explained to her that I cannot fill all of her prescriptions such as her psychiatric medications but was agreeable to filling her prescription for Jardiance, metformin and insulin. Lab Data Lab results reviewed: Yes I reviewed the patient's lab results Labs: Lab Results 09/12/24 09/12/24 09/12/24 Range/Units 18:57 19:23 19:24 WBC 9.9 (4.0-11.0) 10^3/uL RBC 4.90 (4.20-5.40) 10^6/uL Hgb 13.3 (12.0-16.0) g/dL Hct 39.4 (36.0-48.0) % MCV 80.4 L (81.0-99.0) fL MCH 27.1 (26.7-34.0) pg MCHC 33.8 (29.9-35.2) g/dL RDW 12.4 (11.0-15.0) % Plt Count 308 (150-450) 10^3/uL MPV 10.8 (9.5-13.5) fL Neut % (Auto) 52.8 (43.0-75.0) % Lymph % (Auto) 37.8 (20.5-60.0) % [place] % (Auto) 6.6 (1.7-12.0) % Eos % (Auto) 1.9 (0.9-7.0) % Baso % (Auto) 0.7 (0.2-2.0) % Neut # (Auto) 5.2 (1.4-6.5) 10^3/uL Lymph # (Auto) 3.8 (1.2-3.8) 10^3/uL [place] # (Auto) 0.7 (0.3-0.8) 10^3/uL Eos # (Auto) 0.2 (0.0-0.7) 10^3/uL Baso # (Auto) 0.1 (0.0-0.1) 10^3/uL Abs Immat Gran (auto) 0.02 (0.00-0.03) 10^3/uL Imm/Tot Granulo (auto) 0.2 (0.0-0.5) % Sodium 132 L (136-145) mmol/L Potassium 4.0 (3.5-5.1) mmol/L Chloride 98 (98-107) mmol/L Carbon Dioxide 24.2 (21.0-32.0) mmol/L Anion Gap 13.8 BUN 9.0 (7.0-18.0) mg/dL Creatinine 0.95 (0.55-1.02) mg/dL Est GFR ( Amer) >60 (>=60 mL/min/1.73m^2) Est GFR (Non-Af Amer) >60 (>=60 mL/min/1.73m^2) BUN/Creatinine Ratio 9.5 Glucose 425 H (74-106) mg/dL Calcium 8.7 (8.5-10.1) mg/dL Total Bilirubin 0.3 (0.2-1.0) mg/dL AST 21 (15-37) U/L ALT 51 (14-59) U/L Alkaline Phosphatase 103 (46-116) U/L Total Protein 7.5 (6.4-8.2) g/dL Albumin 3.7 (3.4-5.0) g/dL Globulin 3.8 g/dL Albumin/Globulin Ratio 1.0 Urine Color Lt. yellow (YELLOW) Urine Clarity Clear (CLEAR) Urine pH 6.0 (5.0-9.0) Ur Specific [place] 1.010 (1.005-1.025) Urine Protein Negative (NEG/TRACE) mg/dL Urine Glucose (UA) >=1000 A (NEGATIVE) mg/dL Urine Ketones Negative (NEGATIVE) mg/dL Urine Occult Blood Moderate A (NEGATIVE) Urine Nitrite Negative (NEGATIVE) Urine Bilirubin Negative (NEGATIVE) Urine Urobilinogen 0.2 (0.2-1.0) EU/dL Ur Leukocyte Esterase Negative (NEGATIVE) Urine RBC 0-2 (0-2) #/HPF Urine WBC None seen (NONE SEEN) #/HPF Ur Squamous Epith Cells Few A (NONE/RARE) #/LPF Urine Crystals None seen (None Seen) #/HPF Urine Bacteria None seen (NONE SEEN) #/HPF Urine Casts None seen (NONE SEEN) #/LPF Urine Mucus None seen (NONE SEEN) Ur Culture Indicated? No Acetone, Qual Negative (NEGATIVE) POC Glucose 490 H (74-106) mg/dL Discharge Plan Discharge Chief Complaint: Weakness Clinical Impression: Hyperglycemia due to diabetes mellitus Prescriptions / Home Meds: No Action aripiprazole 10 mg tablet 10 mg PO QDAY buspirone 10 mg tablet 10 mg PO BID trazodone 50 mg tablet 50 mg PO DAILY fluoxetine 40 mg capsule 40 mg PO QDAY spironolactone 50 mg tablet 50 mg PO QDAY calcium phos,dibas-vitamin D3 77-400 mg-unit tablet 1 tab PO QDAY pantoprazole 40 mg tablet,delayed release (DR/EC) 40 mg PO Q12H PRN (Reason: indigestion) magnesium 250 mg tablet 250 mg PO DAILY calcium carbonate [Calcium 600] 600 mg calcium (1,500 mg) tablet 600 mg PO DAILY Humulin R U-500 (Conc) Kwikpen 500 unit/mL (3 mL) insulin pen 60 unit SUBCUT TID Rx Instructions: with sliding scale Jardiance 25 mg tablet 25 mg PO DAILY metformin 500 mg tablet 500 mg PO BID cholecalciferol (vitamin D3) [Vitamin D3] 50 mcg (2,000 unit) tablet 2,000 unit PO DAILY gabapentin 100 mg capsule 100 mg PO TID amoxicillin 500 mg capsule 500 mg PO TID 10 Days Qty: 30 0RF Claritin-D 12 Hour 5-120 mg tablet extended release 12 hr 1 tab PO Q12H PRN (Reason: nasal congestion) Qty: 20 0RF bitvswpsrtwwzir-yroxxfciv-LP [Bromfed DM] 2-30-10 mg/5 mL syrup 10 ml PO Q6H PRN (Reason: cold symptoms) Qty: 200 0RF ondansetron 4 mg tablet,disintegrating 4 mg PO Q6H PRN (Reason: nausea and vomiting) Qty: 12 0RF Print Language: Faroese Referrals: Ariane Wells, CONTROL ELECTRICIAN [Primary Care Provider] - 1 week
[2024-09-12 19:29] LABS: Basophils Absolute Auto 0.1 10^3/uL (0.0-0.1); Basophils Percent Auto 0.7 % (0.2-2.0); Eosinophils Absolute Auto 0.2 10^3/uL (0.0-0.7); Eosinophils Percent Auto 1.9 % (0.9-7.0); Hematocrit 39.4 % (36.0-48.0); Hemoglobin 13.3 g/dL (12.0-16.0); Immature Granulocytes Abs Auto 0.02 10^3/uL (0.00-0.03); Immature Granulocytes Pct Auto 0.2 % (0.0-0.5); Lymphocytes Absolute Auto 3.8 10^3/uL (1.2-3.8); Lymphocytes Percent Auto 37.8 % (20.5-60.0); Mean Corpuscular HGB Conc 33.8 g/dL (29.9-35.2); Mean Corpuscular Hemoglobin 27.1 pg (26.7-34.0); Mean Corpuscular Volume 80.4 fL (81.0-99.0); Mean Platelet Volume 10.8 fL (9.5-13.5); Monocytes Absolute Auto 0.7 10^3/uL (0.3-0.8); Monocytes Percent Auto 6.6 % (1.7-12.0); Neutrophils Absolute Auto 5.2 10^3/uL (1.4-6.5); Neutrophils Percent Auto 52.8 % (43.0-75.0); Platelet Count 308 10^3/uL (150-450); Red Cell Distribution Width 12.4 % (11.0-15.0); White Blood Count 9.9 10^3/uL (4.0-11.0)
[2024-09-12 19:29] LABS: Bilirubin Urine NEGATIVE (NEGATIVE); Blood Urine MODERATE (NEGATIVE); Clarity Urine CLEAR (CLEAR); Color Urine LT. YELLOW (YELLOW); Glucose Urine UA >=1000 mg/dL (NEGATIVE); Ketones Urine NEGATIVE (NEGATIVE); Leukocyte Esterase Urine NEGATIVE (NEGATIVE); Nitrite Urine NEGATIVE (NEGATIVE); Protein Urine NEGATIVE (NEG/TRACE); Urobilinogen Urine 0.2 EU/dL (0.2-1.0)
[2024-09-12] MEDS: INSULIN REGULAR, HUMAN (100 UNIT/ML) 10 ML MDV 10 UNIT IV (19:38)
[2024-09-12 19:41] LABS: Acetone NEGATIVE (NEGATIVE)
[2024-09-12] MEDS: 0.9 % SODIUM CHLORIDE 1,000 ML 125 ML IV (19:42)
[2024-09-12] MEDS: ONDANSETRON PF 4 MG/2 ML VIAL IV (19:43)
[2024-09-12 19:44] LABS: Bacteria Urine NONE SEEN #/HPF (NONE SEEN); Cast Seen? NONE SEEN #/LPF (NONE SEEN); Crystals Seen? None Seen #/HPF (None Seen); Mucus Urine NONE SEEN (NONE SEEN); RBC Urine 0-2 #/HPF (0-2); Squamous Epithelial Cell Urine FEW #/LPF (NONE/RARE); Urine Culture Indicated NO; WBC Urine NONE SEEN #/HPF (NONE SEEN)
[2024-09-12 19:46] LABS: Alanine Aminotransferase 51 U/L (14-59); Albumin Level 3.7 g/dL (3.4-5.0); Alkaline Phosphatase 103 U/L (46-116); Anion Gap 13.8; Aspartate Amino Transferase 21 U/L (15-37); BUN Creatinine Ratio 9.5; Bilirubin Total 0.3 mg/dL (0.2-1.0); Calcium 8.7 mg/dL (8.5-10.1); Carbon Dioxide 24.2 mmol/L (21.0-32.0); Chloride 98 mmol/L (98-107); Estimated GFR (African America >60 (>=60 mL/min/1.73m^2); Estimated GFR (Non-African Ame >60 (>=60 mL/min/1.73m^2); Globulin 3.8 g/dL; Glucose 425 mg/dL (74-106); Sodium 132 mmol/L (136-145); Total Protein 7.5 g/dL (6.4-8.2)
[2024-09-12 20:34] LABS: Glucometer 343 mg/dL (74-106)
== END 2024-09-12 21:38 | disposition home or self-care (01) ==
PROVIDERS: Emergency Medicine; Emergency Provider Emergency Medicine; PCP Nurse Practitioner
DX: E11.65 Type 2 diabetes mellitus with hyperglycemia (principal); Z79.4 Long term (current) use of insulin; Z79.84 Long term (current) use of oral hypoglycemic drugs; T38.3X6A Underdosing of insulin and oral hypoglycemic [antidiabetic] drugs, initial encounter; Z91.138 Patient's unintentional underdosing of medication regimen for other reason
CPT/HCPCS: 36415; 80053; 81001; 82009; 82948; 85025; 96361; 96374; 99285; J1817; J2405

== ENCOUNTER 2024-11-06 10:31 | Emergency (ER) | payer MEDICAID, SELFPAY ==
[2024-11-06] VITALS (16 sets, daily range): BP systolic 115–122; BP diastolic 68–74; PULSE 49–73; TEMP 36.9; O2SAT 96–100; BMI 41.6
--- NOTE | 2024-11-06 10:40 | ECG_ITS ---
[facility] Test Date: 2024-11-06 Pat Name: MARILIA OSBORNE Department: Room: - Gender: Female Multiple Punch Press Operator: : [id number] Requested By: [id number] Order Number: [id number] Reading MD: KATE STOKES M.D. Measurements Intervals [place] Rate: 70 P: 12 MD: 150 QRS: 17 QRSD: 84 T: 21 QT: 378 QTc: 399 Interpretive Statements 1100 Sinus rhythm 9110 normal ECG Compared to ECG 02/04/2023 08:24:59 ST (T wave) deviation no longer present Electronically Signed On 11-06-2024 10:49:35 EST by KATE STOKES M.D.
--- NOTE | 2024-11-06 10:41 | ED_ITS ---
HPI HPI - General Adult General Chief complaint: Chest Pain Stated complaint: HYPERGLYCEMIA Time Seen by Provider: 11/06/24 10:33 Source: patient Mode of arrival: ambulance Limitations: no limitations History of Present Illness HPI narrative: Patient presents to the ED by EMS from home with chief complaint of epigastric pain complaint nausea that she is not experiencing today. She denies vomiting, chills or fever or bodyaches. She is diabetic and states that she lost her state medical insurance in August since which time she has not been on any of her medications. 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 Related Data Home Medications ?Medication ?Instructions ?Recorded ?Confirmed aripiprazole 10 mg tablet 10 mg PO QDAY 02/04/23 02/17/24 buspirone 10 mg tablet 10 mg PO BID 02/04/23 02/17/24 calcium carbonate (Calcium 600) 600 mg PO DAILY 02/04/23 02/17/24 calcium phosphate,dibasic 77 1 tab PO QDAY 02/04/23 02/17/24 mg-vitamin D3 400 unit tablet fluoxetine 40 mg capsule 40 mg PO QDAY 02/04/23 02/17/24 insulin regular hum U-500 conc 500 60 unit subcut TID 02/04/23 02/17/24 unit/mL(3 mL) subcut pen (Humulin R U-500 (Conc) Insulin Kwikpen) magnesium 250 mg tablet 250 mg PO DAILY 02/04/23 02/17/24 pantoprazole 40 mg tablet,delayed 40 mg PO Q12H PRN indigestion 02/04/23 02/17/24 release spironolactone 50 mg tablet 50 mg PO QDAY 02/04/23 02/17/24 trazodone 50 mg tablet 50 mg PO DAILY 02/04/23 02/17/24 cholecalciferol (vitamin D3) 50 2,000 unit PO DAILY 02/02/24 02/17/24 mcg (2,000 unit) tablet (Vitamin D3) empagliflozin 25 mg tablet 25 mg PO DAILY 02/02/24 02/17/24 (Jardiance) gabapentin 100 mg capsule 100 mg PO TID 02/02/24 02/17/24 metformin 500 mg tablet 500 mg PO BID 02/02/24 02/17/24 Previous Rx's ?Medication ?Instructions ?Recorded amoxicillin 500 mg capsule 500 mg PO TID 10 days #30 caps 05/30/24 loratadine 5 mg-pseudoephedrine ER 1 tab PO Q12H PRN nasal congestion 05/30/24 120 mg tablet,extended #20 tabs release,12hr (Claritin-D 12 Hour) apxcgdymgvafovy-pvrikoybcafewbg-OB 10 ml PO Q6H PRN cold symptoms 06/03/24 2 mg-30 mg-10 mg/5 mL oral syrup #200 mL (Bromfed DM) ondansetron 4 mg disintegrating 4 mg PO Q6H PRN nausea and 06/03/24 tablet vomiting #12 tabs famotidine 20 mg tablet (Pepcid) 20 mg PO BID 4 weeks #56 tabs 11/06/24 metformin 500 mg tablet,extended 500 mg PO DAILY #30 tabs 11/06/24 release 24 hr Allergies Allergy/AdvReac Type Severity Reaction Status Date / Time prednisone AdvReac Severe hyperglycem Verified 11/06/24 10:33 ia Opioid HPI Opioid Management Most Recent Opioid Data: Last Pain Scale 9 06/03/24 17:38 06/03/24 Review of Systems ROS Status of ROS 10 or more systems reviewed and unremark able except as noted in history and below [facility] Social History Smoking status: Current every day smoker Little interest or pleasure in doing things: not at all Feeling down, depressed, or hopeless: not at all Exam Narrative Exam Narrative: Patient does not appear acutely ill or distressed and has stable vital signs upon arrival. Skin is warm and dry. HEENT exam is normal to inspection. Neck is supple. Lung sounds are clear to auscultation bilaterally with good air entry. Heart has regular rate and rhythm. Abdomen soft with out any tenderness. Is protuberant and there is no fluid wave or organomegaly. Lower extremities are warm and dry. She does not have unilateral leg swelling, calf tenderness or pedal edema. Speech and mentation are clear and intact. There is no facial asymmetry. She moves all extremities actively. Constitutional Vital Signs, click to edit/add: Last Vital Signs Temp 98.4 F 11/06/24 10:35 Pulse 53 L 11/06/24 12:24 Resp 22 H 11/06/24 12:24 BP 115/68 11/06/24 12:24 Pulse Ox 100 11/06/24 12:42 O2 Del Method Room Air 11/06/24 10:35 Course Vital Signs Vital signs: Vital Signs Blood Pressure 122/74 11/06/24 10:32 Temperature 98.4 F 11/06/24 10:35 Pulse Rate 53 L 11/06/24 12:24 Respiratory Rate 22 H 11/06/24 12:24 Blood Pressure 115/68 11/06/24 12:24 Pulse Oximetry 100 11/06/24 12:42 Oxygen Delivery Method Room Air 11/06/24 10:35 Medical Decision Making MDM Narrative Medical decision making narrative: EKG is interpreted by me and shows sinus rhythm with a rate of 70 beats a mj te. The axis is normal. No acute ischemic changes are noted. Patient's blood glucose is 269 and there is no evidence of ketosis or acidosis. She is treated with IV fluids. Upon discharge I have given her prescription for metformin 500 mg daily and advised outpatient follow-up for further management. She is to return for worsening symptoms at any time. For epigastric pain I am also placing her on Pepcid. There is no evidence of an acute abdomen at this time and there is no evidence of pancreatitis. Lab Data Labs: Lab Results 11/06/24 11/06/24 Range/Units 10:40 10:50 WBC 8.7 (4.0-11.0) 10^3/uL RBC 5.00 (4.20-5.40) 10^6/uL Hgb 13.7 (12.0-16.0) g/dL Hct 40.9 (36.0-48.0) % MCV 81.8 (81.0-99.0) fL MCH 27.4 (26.7-34.0) pg MCHC 33.5 (29.9-35.2) g/dL RDW 13.1 (11.0-15.0) % Plt Count 261 (150-450) 10^3/uL MPV 11.1 (9.5-13.5) fL Neut % (Auto) 62.5 (43.0-75.0) % Lymph % (Auto) 28.9 (20.5-60.0) % [place] % (Auto) 6.2 (1.7-12.0) % Eos % (Auto) 1.5 (0.9-7.0) % Baso % (Auto) 0.6 (0.2-2.0) % Neut # (Auto) 5.5 (1.4-6.5) 10^3/uL Lymph # (Auto) 2.5 (1.2-3.8) 10^3/uL [place] # (Auto) 0.5 (0.3-0.8) 10^3/uL Eos # (Auto) 0.1 (0.0-0.7) 10^3/uL Baso # (Auto) 0.1 (0.0-0.1) 10^3/uL Abs Immat Gran (auto) 0.03 (0.00-0.03) 10^3/uL Imm/Tot Granulo (auto) 0.3 (0.0-0.5) % VBG pH 7.396 (7.330-7.430) VBG pCO2 33.3 L (40.0-52.0) mmHg Sodium 136 (136-145) mmol/L Potassium 4.4 (3.5-5.1) mmol/L Chloride 101 (98-107) mmol/L Carbon Dioxide 22.0 (21.0-32.0) mmol/L Anion Gap 17.4 BUN 16.0 (7.0-18.0) mg/dL Creatinine 0.67 (0.55-1.02) mg/dL Est GFR ( Amer) >60 (>=60 mL/min/1.73m^2) Est GFR (Non-Af Amer) >60 (>=60 mL/min/1.73m^2) BUN/Creatinine Ratio 23.9 Glucose 269 H (74-106) mg/dL Calcium 8.7 (8.5-10.1) mg/dL Total Bilirubin 0.4 (0.2-1.0) mg/dL Direct Bilirubin 0.1 (0.0-0.2) mg/dL AST 17 (15-37) U/L ALT 38 (14-59) U/L Alkaline Phosphatase 80 (46-116) U/L Troponin I High Sens <4.0 L (4.0-51.3) pg/mL Total Protein 7.3 (6.4-8.2) g/dL Albumin 3.5 (3.4-5.0) g/dL Globulin 3.8 g/dL Albumin/Globulin Ratio 0.9 Lipase 21.0 (16.0-77.0) U/L Serum HCG, Qual Negative (NEGATIVE) Acetone, Qual Negative (NEGATIVE) POC Glucose 252 H (74-106) mg/dL Discharge Plan Discharge Chief Complaint: Chest Pain Clinical Impression: Acute epigastric pain, Hyperglycemia Patient Disposition: Home, Self-Care Time of Disposition Decision: 12:13 Condition: Good Prescriptions / Home Meds: New metformin 500 mg tablet extended release 24 hr 500 mg PO DAILY Qty: 30 0RF famotidine [Pepcid] 20 mg tablet 20 mg PO BID 28 Days Qty: 56 0RF No Action aripiprazole 10 mg tablet 10 mg PO QDAY buspirone 10 mg tablet 10 mg PO BID trazodone 50 mg tablet 50 mg PO DAILY fluoxetine 40 mg capsule 40 mg PO QDAY spironolactone 50 mg tablet 50 mg PO QDAY calcium phos,dibas-vitamin D3 77-400 mg-unit tablet 1 tab PO QDAY pantoprazole 40 mg tablet,delayed release (DR/EC) 40 mg PO Q12H PRN (Reason: indigestion) magnesium 250 mg tablet 250 mg PO DAILY calcium carbonate [Calcium 600] 600 mg calcium (1,500 mg) tablet 600 mg PO DAILY Humulin R U-500 (Conc) Kwikpen 500 unit/mL (3 mL) insulin pen 60 unit SUBCUT TID Rx Instructions: with sliding scale Jardiance 25 mg tablet 25 mg PO DAILY metformin 500 mg tablet 500 mg PO BID cholecalciferol (vitamin D3) [Vitamin D3] 50 mcg (2,000 unit) tablet 2,000 unit PO DAILY gabapentin 100 mg capsule 100 mg PO TID amoxicillin 500 mg capsule 500 mg PO TID 10 Days Qty: 30 0RF Claritin-D 12 Hour 5-120 mg tablet extended release 12 hr 1 tab PO Q12H PRN (Reason: nasal congestion) Qty: 20 0RF zrxvanvqwmrfkmi-ikpbmahse-FK [Bromfed DM] 2-30-10 mg/5 mL syrup 10 ml PO Q6H PRN (Reason: cold symptoms) Qty: 200 0RF ondansetron 4 mg tablet,disintegrating 4 mg PO Q6H PRN (Reason: nausea and vomiting) Qty: 12 0RF Print Language: Citizen [place] Instructions: Diabetic Hyperglycemia (ED), Epigastric Pain (ED) Additional Instructions: Follow-up with your physician early next week. Return for worsening symptoms Referrals: Ariane Wells NP [Primary Care Provider] - 1 week Discharge Date/Time: 11/06/24 12:30
[2024-11-06 10:42] LABS: Glucometer 252 mg/dL (74-106)
--- OUTSIDE RECORDS SUMMARY | 2024-11-06 10:59 | XMS_ITS | CCD ---
Author Organization [facility] Care Team Providers Care Transverse Abdominal Muscle Surgeon Name Role Phone AICHHOLZ, MANAGER WEALTH MANAGEMENT ARIANE Attending Unavailable AICHHOLZ, MANAGER WEALTH MANAGEMENT ARIANE Admitting Unavailable AICHHOLZ, MANAGER WEALTH MANAGEMENT ARIANE Primary Care Unavailable JOSE EDUARDO RIVERS V Consulting Unavailable AICHHOLZ, MANAGER WEALTH MANAGEMENT ARIANE Consulting Unavailable TIMMIS, DR MEJIA Consulting Unavailable AICHHOLZ, MANAGER WEALTH MANAGEMENT ARIANE Primary Care Unavailable TIMMIS, DR MEJIA Attending Unavailable TIMMIS, DR MEJIA Admitting Unavailable BRIGGS, MAGDI Consulting Unavailable PAY ., DR SWANSON Admitting Unavailable PAY ., DR SWANSON Consulting Unavailable AICHHOLZ, MANAGER WEALTH MANAGEMENT ARIANE Primary Care Unavailable PAY ., DR SWANSON Attending Unavailable AICHHOLZ, MANAGER WEALTH MANAGEMENT ARIANE Primary Care Unavailable KAITLIN, DR KLAUDIA Kay Attending Unavailabl e REINECK, DR KLAUDIA Kay Admitting Unavailabl e REINMONA, DR KLAUDIA Kay Consulting Unavailabl e JEYSON BLANTON Consulting Unavailable AICHHOLZ, MANAGER WEALTH MANAGEMENT ARIANE Primary Care Unavailable GLEN .GABINO Attending Unavailable GLEN ., GABINO Admitting Unavailable AICHHOLZ, MANAGER WEALTH MANAGEMENT ARIANE Primary Care Unavailable JOSE EDUARDO RIVERS V Consulting Unavailable JEYSON BLANTON Consulting Unavailable GLEN .GABINO Consulting Unavailable PAY ., DR SWANSON Admitting Unavailable PAY ., DR SWANSON Consulting Unavailable AICHHOLZ, MANAGER WEALTH MANAGEMENT ARIANE Primary Care Unavailable PAY ., DR SWANSON Attending Unavailable GERALDINE LAZAR Consulting Unavailable HAY ., DR DEL RIO Attending Unavailable HAY ., DR DEL RIO Admitting Unavailable AICHHOLZ, MANAGER WEALTH MANAGEMENT ARIANE Primary Care Unavailable HAY ., DR DEL RIO Consulting Unavailable GLEN .GABINO Attending Unavailable GLEN ., GABINO Admitting Unavailable AICHHOLZ, MANAGER WEALTH MANAGEMENT ARIANE Primary Care Unavailable DONTRELL DIAZ Consulting Unavailable GLEN .GABINO Consulting Unavailable JOSE EDUARDO RHODES Consulting Unavailable AICHHOLZ, MANAGER WEALTH MANAGEMENT ARIANE Referring Unavailable AICHHOLZ, MANAGER WEALTH MANAGEMENT ARIANE Primary Care Unavailable YUKI, AHMAD Attending Unavailable YUKI, AHMAD Admitting Unavailable YUKI, AHMAD Consulting Unavailable AICHHOLZ, MANAGER WEALTH MANAGEMENT ARIANE Consulting Unavailable AICHHOLZ, MANAGER WEALTH MANAGEMENT ARIANE Attending Unavailable AICHHOLZ, MANAGER WEALTH MANAGEMENT ARIANE Admitting Unavailable AICHHOLZ, MANAGER WEALTH MANAGEMENT ARIANE Primary Care Unavailable HAYDE VAN Consulting Unavailable AICHHOLZ, MANAGER WEALTH MANAGEMENT ARIANE Consulting Unavailable AICHHOLZ, MANAGER WEALTH MANAGEMENT ARIANE Attending Unavailable AICHHOLZ, MANAGER WEALTH MANAGEMENT ARIANE Admitting Unavailable AICHHOLZ, MANAGER WEALTH MANAGEMENT ARIANE Primary Care Unavailable AMINATA BOURGEOIS Attending Unavailable BK, AMINATA Admitting Unavailable JEYSON BLANTON Consulting Unavailable AICHHOLZ, MANAGER WEALTH MANAGEMENT ARIANE Primary Care Unavailable BK, AMINATA Consulting Unavailable AICHHOLZ, MANAGER WEALTH MANAGEMENT ARIANE Primary Care Unavailable TIMMIS, DR MEJIA Consulting Unavailable TIMMIS, DR MEJIA Attending Unavailable TIMMIS, DR MEJIA Admitting Unavailable ELIDA COWAN Consulting Unava ilable AICHHOLZ, ARIANE J Primary Care Physician Riky Le Attending Unavailable Jose LEUNG, Rush Reid Attending Unavailable Georges Shook MD Primary Care Provider Channing Freire MD Unavailable [phone] AICHHOLZ, ARIANE Attending Unavailable AICHHOLZ, ARIANE Attending Unavailable AICHHOLZ, ARIANE Attending Unavailable JOANN OWENS Attending Unavailable AICHHOLZ, ARIANE Referring Unavailable JOANN OWENS Attending Unavailable AICHHOLZ, ARIANE Attending Unavailable Allergies Allergy Classification Reported Allergen(s) Allergy Type Date of Onset Reaction(s) Facility (2 sources) predniSONE; Translations: [predniSONE] Drug Allergy 0 [facility] Repository (1 source) predniSONE; Translations: [prednisone] Drug Allergy 0 Slurred speech (finding), Tremor (finding) [facility] [place] (12 sources) Prednisone Propensity to adverse reactions 4 [facility] Work Phone: Medications Current Medications Medication Drug Class(es) Dates Sig (Normalized) Sig (Original) [id number] 200 actuat albuterol 0.09 mg/actuat metered dose [...] Start: 02-20-2022 take 1 capsule by mo [facility] once daily FLUoxetine 40 mg Cap 40 [...] day(s), # 18 tab(s), Refills(s) 0, Pharmacy: [facility], 160, cm, 11/27/23 12:59:00 EDT, Height/Length [...] pain, # 20 tab(s), Refills(s) 0, Pharmacy: [facility], 160, cm, 11/27/23 12:59:00 EDT, Height/Length [...] 11-30-2019 Episodic Other aftercare (1 source) 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 [facility] Comment on above: TESTS RESULT FLAG UN ITS REF RANGE LAB Clinician Provided Cytology Information Source.............Cervix;Endocervix No. of containers..01 ThinPrep Vial Age Algo ACOG Cristine... 63 01 FLAG LEGEND: L-Low Normal,H-High Normal,LL-Alert Low,HH-Alert High <-Panic Low,>-Panic High,A-Abnormal,AA-Critical Abnormal Performed at: 01 [address] [place] [address] Francesca Alonzo MD, HPV APTIMA Negative Negative [facility] Comment on above: This nucleic acid am plification test detects fourteen high- risk HPV types (16,18,31,33,35,39,45,51,52,56,58,59,66,68) without differentiation. Performed at: = - [address] [id number] Civil Division Commander Deputy Sheriff: Francesca Alonzo MD, Phone: [phone] Performed at: - [address] [id number] Civil Division Commander Deputy Sheriff: Francesca Alonzo MD, Phone: [phone] IGP, APTIMA HPV, RFX 16/18,45 Note . [facility] Comment on above: TESTS RESULT FLAG UN ITS REF RANGE LAB DIAGNOSIS: 02 NEGATIVE FOR INTRAEPITHELIAL LESION OR MALIGNANCY. Specimen adequacy: 02 Satisfactory for evaluation. No endocervical component is identified. Performed by: Hien Smith, Supervisor Silvering Department (ASCP) . 02 Note: Note 02 The [...] High <-Panic Low,>-Panic High,A-Abnormal,AA-Critical Abnormal Performed at: [address] [place] [phone] Francesca Alonzo MD, BROOM-ALONE CERVIX ENDOCERVIX [facility] UPPER RESPIRATORY CULTUREon 06-03-2024 UPPER RESPIRATORY CULTURE Upper Respiratory Culture Organism: Beta hemolytic Strep group B : [facility] UPPER RESPIRATORY CULTURE *ABNORMAL* [facility] UPPER RESPIRATORY CULTURE Light growth [facility] UPPER RESPIRATORY CULTURE Penicillin and ampicillin are drugs of choice for [facility] UPPER RESPIRATORY CULTURE treatment of beta-hemolytic streptococcal infections. [facility] Healthcare UPPER RESPIRATORY CULTURE Susceptibility testing [...] [facility] UPPER RESPIRATORY CULTURE Performed at: [facility] UPPER RESPIRATORY CULTURE [address], [place] [id number] [facility] Healthcare UPPER RESPIRATORY CULTURE Civil Division Commander Deputy Sheriff: Codey Sibley PhD, Phone: [phone] [facility] No Panel Informationon 04-29 Type of biopsy: [facility] Informed consent: discussed and consent obtained Informed [...] 2 Specimen sent for: H&E Photo taken [facility] Formson 11-28-2023 Forms [id number]#[id number] Normal [facility] Consent for Treatmenton 10-31 Consent for Treatment [id number]#[id number] Normal [facility] Discharge Instructionson Discharge Instructions [id number]#[id number] Normal [facility] ED Clinical Summaryon 2023 ED Clinical Summary [place] [id number] ED Clinical Summary Person Information Name: MARILIA VERA [facility] Age: 33 Years : 1990 Sex: Female Language: Czech PCP: AIRANE WELLS CNP Marital Status: Visit Id: Visit [...] 11/27/2023 15:37:23 11/27/2023 15:37:23 11/27/2023 15:37:23 ADDRESS: [address] [place] [id number] PHYS DOC NOTES: MEDICAL INFORMATION: Prescriptions Given: [facility], [address] [place], [place] [id number], [phone] methocarbamol (Robaxin-750 oral tablet) 2 Tablets By [...] Follow up: With: Address: When: Georgi Pfeiffer [address] [place] [address] [facility] () In 3 days 11/30/2023 DIAGNOSIS: Pain in shoulder Normal [facility] ED Note-Physicianon 11-27-19 ED Note-Physician Basic Information [...] day(s), # 18 tab(s), Refills(s) 0, Pharmacy: [facility], 160, cm, 11/27/23 12:59:00 EDT, Height/Length Dosing, 114.1, kg, 11/27/23 12:59:00 EDT, Weight Dosing naproxen, 500 mg = 1 tab(s), Oral, BID, PRN for pain, # 20 tab(s), Refills(s) 0, Pharmacy: [facility], 160, cm, 11/27/23 12:59:00 EDT, Height/Length [...] Pfeiffer In 3 days 11/30/2023 EDT [address] [place] [address]- Ante Up (1) Additional Instructions: Patient Education Shoulder Pain [...] made to ensure accuracy, however, inadvertently computerized applications engineer manufacturing mistakes may be present. Appropriate healthcare PPE [...] Roma (more content not included)... Normal [facility] Comment on above: Result Comment: [...] strengthen the arm. General instructions ? Take moye-csl-gtdzehe and prescription medicines only as told by [...] provider. Document Revised: 05/03/2022 Document Reviewed: 05/03/2022 [employer]iner Patient Education ? 2022 [employer]. Normal [facility] ED Patient Summaryon 024 ED Patient Summary (Inserted Image. Isadora ble to display) [address] [address] Patient Discharge Instructions Person Information Name: MARILIA VERA Age: 33 Years Arrival Date: 11/27/2023 12:52:48 Discharge Diagnosis: Pain in shoulder Primary Care Physician: ARIANE WELLS CNP Provider Information Primary Provider: Riky Le DO Advanced Die Reamer:Steven Cardenas PA-C The exam and treatment you received in the Emergency Department were for an urgent problem and are not intended as complete care. It is important that you follow up with a doctor, nurse practitioner, or physician?s logging assistant for ongoing care. If your symptoms [...] Follow-up Instructions: With: Address: When: Georgi Pfeiffer [address] [place] [address] Business (1) In 3 days 11/30/2023 In the event that this physician does not participate in your insurance network, please consult with your insurance company to find a nearby participating provider. Patient Education Materials: Shoulder Pain A MESSAGE TO ALL PATIENTS REGARDING OPIOIDS PRESCRIPTION OPIOIDS: WHAT YOU NEED TO KNOW Prescription opioids can be used to help relieve pbivorgx-pm-nzdtyw pain and are often prescribed following a [...] struggling with addiction, tell your health director critical care and ask for guidance or call [facility] Helpline at [phone]. n Source: Department of [facility] (more content not included)... Normal [facility] Formson 11-27-2023 Forms [id number]#[id number] [facility] XR Shoulder Complete Righton 11-27-2023 XR [...] mGy = na DAP = na Normal [facility] CBC AUTO DIFFon 12-11-2022 BASO # 0.1 103/ul Normal 0.0-0.1 [facility] Comment on above: Performed By: #### P REGU #### [facility] [address] [place] [address] Dr. Jaz Barajas Basophils/100 WBC (Bld) 0.8 % Normal 0.2-2.0 [facility] Comment on above: Performed By: #### P REGU #### [facility] [address] [place] [address] Dr. Jaz Barajas EO # 0.2 103/ul Normal 0.0-0.7 [facility] Comment on above: Performed By: #### P REGU #### [facility] [address] [place] [address] Dr. Jaz Barajas Eosinophils/100 WBC (Bld) 2.1 % Normal 0.9-7.0 [facility] Comment on above: Performed By: #### P REGU #### [facility] [address] [place] [address] Dr. Jaz Barajas Erythrocyte distribution width (RBC) [Ratio] 13.0 % Normal 11.0-15.0 [facility] Comment on above: Performed By: #### P REGU #### [facility] [address] [place] [address] Dr. Jaz Barajas Hematocrit (Bld) [Volume fraction] 41.2 % Normal 36.0-48.0 [facility] Comment on above: Performed By: #### P REGU #### [facility] [address] [place] [address] Dr. Jza Barajas Hemoglobin (Bld) [Mass/Vol] 13.7 g/dL Normal 12.0-16.0 [facility] Comment on above: Performed By: #### P REGU #### [facility] [address] [place] [address] Dr. Jaz Barajas IG # 0.02 10e3/ul Normal 0.00-0.03 [facility] Comment on above: Performed By: #### P REGU #### [facility] [address] [place] [address] Dr. Jaz Barajas IG % 0.2 % Normal 0.0-0.5 [facility] Comment on above: Performed By: #### P REGU #### [facility] [address] [place] [address] [address] Jaz Barajas LYMPH # 3.3 103/ul Normal 1.2-3.8 [facility] Comment on above: Performed By: #### P REGU #### [facility] [address] [place] [address] Dr. Jaz Barajas Lymphocytes/100 WBC (Bld) 34.8 % Normal 20.5-60.0 [facility] Comment on above: Performed By: #### P REGU #### [facility] [address] [place] [address] Dr. Jaz Barajas MANUAL DIFF REQ NO Normal [facility] Comment on above: Performed By: #### P REGU #### [facility] [address] [place] [address] Dr. Jaz Barajas MCH (RBC) [Entitic mass] 26.6 pg Critically low 26.7-34.0 [facility] Comment on above: Performed By: #### P REGU #### [facility] [address] [place] [address] Dr. Jaz Barajas MCHC (RBC) [Mass/Vol] 33.3 g/dL Normal 29.9-35.2 [facility] Comment on above: Performed By: #### P REGU #### [facility] [address] [place] [address] Dr. Jaz Barajas MCV (RBC) [Entitic vol] 79.8 fL Critically low 81.0-99.0 [facility] Comment on above: Performed By: #### P REGU #### [facility] [address] [place] [address] Dr. Jaz Barajas MONO # 0.7 103/ul Normal 0.3-0.8 [facility] Comment on above: Performed By: #### P REGU #### [facility] [address] [place] [address] Dr. Jaz Barajas Monocytes/100 WBC (Bld) 7.3 % Normal 1.7-12.0 [facility] Comment on above: Performed By: #### P REGU #### [facility] [address] [place] [address] Dr. Jaz Barajas NEUT # 5.3 103/ul Normal 1.4-6.5 [facility] Comment on above: Performed By: #### P REGU #### [facility] [address] [place] [address] Dr. Jaz Barajas Neutrophils/100 WBC (Bld) 54.8 % Normal 43.0-75.0 [facility] Comment on above: Performed By: #### P REGU #### [facility] [address] [place] [address] Dr. Jaz Barajas Platelet mean volume (Bld) [Entitic vol] 10.7 fL Normal 9.5-13.5 [facility] Comment on above: Performed By: #### P REGU #### [facility] [address] [place] [address] Dr. Jaz Barajas PLT 284 103/ul Normal 150-450 [facility] Comment on above: Performed By: #### P REGU #### [facility] [address] [place] [address] Dr. Jaz Barajas RBC 5.16 106/ul Normal 4.20-5.40 [facility] Comment on above: Performed By: #### P REGU #### [facility] [address] [place] [address] Dr. Jaz Barajas WBC 9.6 103/ul Normal 4.0-11.0 [facility] Comment on above: Performed By: #### P REGU #### [facility] [address] [place] [address] Dr. Jaz Barajas FREE T4on 12-11-2022 Free T4 [Mass/Vol] 1.10 ng/dL Normal 0.76-1.46 [facility] Comment on above: Performed By: #### P ROGLCM #### [facility] [address] [place], [place] [address] Dr. Jaz Barajas LIPID PROFILEon 12-11-2022 CHOL-HDL RATIO NORM SEE BELOW Normal [facility] Comment on above: Result Comment: 3.3 - 4.4 LOW RISK 4.4 - 7.1 AVERAGE RISK 7.1 - 11.0 MODERATE RISK >11.0 HIGH RISK Performed By: #### L IPID, TSH, CMP ####[facility] [address] [place], [place] [address]Kp. Jaz Barajas Cholesterol [Mass/Vol] 168 mg/dL Normal <=200 [facility] Comment on above: Performed By: #### L IPID, TSH, CMP ####[facility] [address] [place], [place] [address]Qz. Jaz Barajas Cholesterol in HDL [Mass/Vol] 32 mg/dL Critically low 40-60 [facility] Comment on above: Performed By: #### L IPID, TSH, CMP ####[facility] [address] [place], [place] [address]Ni. Jaz Barajas Cholesterol in LDL [Mass/Vol] 121.8 mg/dL Normal [facility] Comment on above: Performed By: #### L IPID, TSH, CMP ####[facility] [address] [place], [place] [address]Jj. Jaz Barajas Cholesterol.total/ Cholesterol in HDL [Mass ratio] 5.3 {ratio} Normal [facility] Comment on above: Performed By: #### L IPID, TSH, CMP ####[facility] [address] [place], [place] [address]Tp. Jaz Barajas HDL NORMAL > or = 60 mg/dl - LO W CARDIOVASCULAR RISK <40 mg/dl - HIGH CARDIOVASCULAR RISK Normal [facility] Comment on above: Performed By: #### L IPID, TSH, CMP ####[facility] [address] [place], [place] [address]Qr. Jaz Barajas LDL CALC NORMAL SEE BELOW Normal [facility] Comment on above: Result Comment: <100 mg/dl OPTIMAL 100 - 129 mg/dl NEAR OR ABOVE OPTIMAL 130 - 159 mg/dl BORDERLINE HIGH 160 - 189 mg/dl HIGH >190 mg/dl VERY HIGH Performed By: #### L IPID, TSH, CMP ####[facility] [address] [place] [id number] Barajas Triglyceride [Mass/Vol] 71 mg/dL Normal <=150 [facility] Comment on above: Performed By: #### L IPID, TSH, CMP ####[facility] [address] [place] [id number] Barajas VLDL CALC 14.2 mg/dL Normal [facility] Comment on above: Performed By: #### L IPID, TSH, CMP ####[facility] [address] [place] [address]DrPratibha Barajas MICROALBUMIN, RAND URon 11-30 mALB <1.3 Normal <=30.0 [facility] Comment on above: Performed By: #### P REGU #### [facility] [address] [place] [address] [address] Jaz Barajas PROF 14(COMP METB)on 023 Albumin [Mass/Vol] 3.7 g/dL Normal 3.4-5.0 [facility] Comment on above: Performed By: #### L IPID, TSH, CMP ####[facility] [address] [place] [id number] Barajas Albumin/Globulin [Mass ratio] 0.8 {ratio} Normal [facility] Comment on above: Performed By: #### L IPID, TSH, CMP ####[facility] [address] [place] [id number] Barajas ALP [Catalytic activity/Vol] 90 U/L Normal 46-116 [facility] Comment on above: Performed By: #### L IPID, TSH, CMP ####[facility] [address] [place] [id number] Barajas ALT [Catalytic activity/Vol] 106 U/L Critically high 14-59 [facility] Comment on above: Performed By: #### L IPID, TSH, CMP ####[facility] [address] [place] [address]Dr. Jaz Barajas Anion gap [Moles/Vol] 12.5 mmol/L Normal [facility] Comment on above: Performed By: #### L IPID, TSH, CMP ####[facility] [address] [place] [address]Dr. Jaz Barajas AST [Catalytic activity/Vol] 43 U/L Critically high 15-37 [facility] Comment on above: Performed By: #### L IPID, TSH, CMP ####[facility] [address] [place] [address]Dr. Jaz Barajas Bilirubin [Mass/Vol] 0.4 mg/dL Normal 0.2-1.0 [facility] Comment on above: Performed By: #### L IPID, TSH, CMP ####[facility] [address] [place], [place] [address]Dr. Jaz Barajas Calcium [Mass/Vol] 9.0 mg/dL Normal 8.5-10.1 [facility] Comment on above: Performed By: #### L IPID, TSH, CMP ####[facility] [address] [place], [place] [address]Dr. Jaz Barajas Chloride [Moles/Vol] 104 mmol/L Normal 98-107 [facility] Comment on above: Performed By: #### L IPID, TSH, CMP ####[facility] [address] [place] [address]Dr. Jaz Barajas CO2 [Moles/Vol] 25.8 mmol/L Normal 21.0-32.0 [facility] Comment on above: Performed By: #### L IPID, TSH, CMP ####[facility] [address] [place] [address]Dr. Jaz Barajas Creatinine [Mass/Vol] 0.76 mg/dL Normal 0.55-1.02 [facility] Comment on above: Performed By: #### L IPID, TSH, CMP ####[facility] [address] [place] [id number]. Jaz Barajas EGFR-AF KOSOVAN >60 Normal >=60 [facility] Comment on above: Performed By: #### L IPID, TSH, CMP ####[facility] [address] [place] [address]Dr. Jaz Barajas EGFR-NON AF KOSOVAN >60 Normal >=60 [facility] Comment on above: Performed By: #### L IPID, TSH, CMP ####[facility] [address] [place] [address]Dr. Jaz Barajas Globulin (S) [Mass/Vol] 4.4 g/dL Normal [facility] Comment on above: Performed By: #### L IPID, TSH, CMP ####[facility] [address] [place], [place] [address]Dr. Jaz Barajas Glucose [Mass/Vol] 228 mg/dL Critically high 74-106 [facility] Comment on above: Performed By: #### L IPID, TSH, CMP ####[facility] [address] [place], [place] [address]Dr. Jaz Barajas Potassium [Moles/Vol] 4.3 mmol/L Normal 3.5-5.1 [facility] Comment on above: Performed By: #### L IPID, TSH, CMP ####[facility] [address] [place] [address]Dr. Jaz Barajas Protein [Mass/Vol] 8.1 g/dL Normal 6.4-8.2 [facility] Comment on above: Performed By: #### L IPID, TSH, CMP ####[facility] [address] [place] [address]Dr. Jaz Barajas Sodium [Moles/Vol] 138 mmol/L Normal 136-145 [facility] Comment on above: Performed By: #### L IPID, TSH, CMP ####[facility] [address] [place] [address]Dr. Jaz Barajas Urea nitrogen [Mass/Vol] 21.0 mg/dL Critically high 7.0-18.0 [facility] Comment on above: Performed By: #### L IPID, TSH, CMP ####[facility] [address] [place] [address]Dr. Jaz Barajas Urea nitrogen/Creatinin e [Mass ratio] 27.6 mg/mg Normal [facility] Comment on above: Performed By: #### L IPID, TSH, CMP ####[facility] [address] [place] [address]Dr. Jaz Barajas TSHon 12-11-2022 TSH 3.602 uIU/mL Normal 0.358-3.740 [facility] Comment on above: Performed By: #### L IPID, TSH, CMP ####[facility] [address] [place], [place] [address]Dr. Jaz Barajas UA RANDOM W/MICROSCOPICon BACTERIA NONE SEEN Normal NONE SEEN [facility] Comment on above: Performed By: #### U AMIC ####[facility] Xdroymlhis191420 [address] [place], [place] [address]Dr. Jaz Barajas Bilirubin Ql (U) Negative Normal NEGATIVE The [facility] Comment on above: Performed By: #### U AMIC ####[facility] [address]as[address] [place], [place] [address]Dr. Jaz Barajas CAST NONE SEEN Normal NONE SEEN [facility] Comment on above: Performed By: #### U AMIC ####[facility] Bwwbuggpck[address] [place], [place] [address]Dr. Jaz Barajas Clarity (U) CLEAR Normal CLEAR [facility] Comment on above: Performed By: #### U AMIC ####[facility] [address] [place] [address]Dr. Jaz Barajas Color (U) LT. YELLOW Normal YELLOW [facility] Comment on above: Performed By: #### U AMIC ####[facility] [address] [place] [address]Dr. Jaz Barajas Crystals LM Nom (Urine sed) NONE SEEN Normal NONE SEEN [facility] Comment on above: Performed By: #### U AMIC ####[facility] [address] [place] [address]Dr. Jaz Barajas Epithelial cells LM Ql (Urine sed) RARE Normal NONE SEEN /RARE [facility] Comment on above: Performed By: #### U AMIC ####[facility] Utlcdkwoki[address] [place] [address]Dr. Jaz Barajas Glucose Ql (U) >1000 Abnormal NEGATIVE The [facility] Comment on above: Performed By: #### U AMIC ####[facility] Lfvldbjzlq[address] [place], [place] [address]Dr. Jaz Barajas Hemoglobin Ql (U) Negative Normal NEGATIVE The [facility] Comment on above: Performed By: #### U AMIC ####[facility] Tfmndoiwhx[address] [place], [place] [address]Dr. Jaz Barajas Ketones Ql (U) Negative Normal NEGATIVE The [facility] Comment on above: Performed By: #### U AMIC ####[facility] Sactsbvcot[address] [place], [place] [address]Dr. Jaz Barajas LEUKOCYTES Negative Normal NEGATIVE [facility] Comment on above: Performed By: #### U AMIC ####[facility] Ryzjezjspp[address] [place], [place] [address]Dr. Jaz Barajas MUCOUS NONE SEEN Normal NONE SEEN [facility] Comment on above: Performed By: #### U AMIC ####[facility] Ztffalcaby[address] [place] [address]Dr. Jaz Barajas Nitrite Ql (U) Negative Normal NEGATIVE The [facility] Comment on above: Performed By: #### U AMIC ####[facility] R[address]jod[address]zca[address] [place], [place] [address]Dr. Jaz Barajas pH (U) 6.0 [pH] Normal 5-9 [facility] Comment on above: Performed By: #### U AMIC ####[facility] Dqaktljspc[address] [place], [place] [address]Dr. Jaz Barajas RBC NONE SEEN Abnormal 0-2 [facility] Comment on above: Performed By: #### U AMIC ####[facility] Mzdyrggyxy[address] [place], [place] [address]DrPratibha Barajas SPEC GRAVITY 1.020 Normal 1.005-<=1.0 25 [facility] Comment on above: Performed By: #### U AMIC ####[facility] [address]ixsbcmv[address] [place] [address]DrPratibha Barajas UA PROTEIN Negative Normal NEGATIVE/ TRACE [facility] Comment on above: Performed By: #### U AMIC ####[facility] Iujmlqvhsf[address] [place] [address]DrPratibha Barajas Urobilinogen Qn (U) 0.2 {Oxana'U}/dL Normal 0.2 - 1.0 [facility] Comment on above: Performed By: #### U AMIC ####[facility] [address] [place] [address]Dr. Jaz Barajas WBC 0-2 Abnormal NONE SEEN [facility] Comment on above: Performed By: #### U AMIC ####[facility] Tsqomyfffz[address] [place] [address]Dr. Jaz Barajas VITAMIN D 25 OHon 12-11-2022 VIT D 25-OH 30.9 ng/mL Normal [facility] Comment on above: Performed By: #### P DUSTINM #### [facility] [address] [place] [address] Dr. Jaz Barajas VIT D RANGES SEE BELOW Normal [facility] Comment on above: Result Comment: <20 ng/mL Vit D deficient 20 - <30 ng/mL Vit D insufficient 30 - 100 ng/mL Vit D sufficient >100 ng/mL Potential Toxicity Performed By: #### P ROGLCM #### [facility] [address] [address] [address] Jaz Barajas CBC AUTO DIFFon 11-15-2022 BASO # 0.1 103/ul Normal 0.0-0.1 [facility] Comment on above: Performed By: #### P VALENTINELCM #### [facility] [address] [address] [address] Jaz Barajas Basophils/100 WBC (Bld) 0.6 % Normal 0.2-2.0 [facility] Comment on above: Performed By: #### P ROGLCM #### [facility] [address] [address] [address] Jaz Barajas EO # 0.2 103/ul Normal 0.0-0.7 [facility] Comment on above: Performed By: #### P ROGLCM #### [facility] [address] [place] [address] Dr. Jaz Barajas Eosinophils/100 WBC (Bld) 2.0 % Normal 0.9-7.0 [facility] Comment on above: Performed By: #### P ROGLCM #### [facility] [address] [place] [address] Dr. Jaz Barajas Erythrocyte distribution width (RBC) [Ratio] 13.3 % Normal 11.0-15.0 [facility] Comment on above: Performed By: #### P ROGLCM #### [facility] [address] [place] [address] Dr. Jaz Barajas Hematocrit (Bld) [Volume fraction] 40.4 % Normal 36.0-48.0 [facility] Comment on above: Performed By: #### P ROGLCM #### [facility] [address] [place] [address] Dr. Jaz Barajas Hemoglobin (Bld) [Mass/Vol] 13.5 g/dL Normal 12.0-16.0 [facility] Comment on above: Performed By: #### P ROGLCM #### [facility] [address] [place] [address] Dr. Jaz Barajas IG # 0.03 10e3/ul Normal 0.00-0.03 [facility] Comment on above: Performed By: #### P ROGLCM #### [facility] [address] [place] [address] Dr. Jaz Barajas IG % 0.3 % Normal 0.0-0.5 [facility] Comment on above: Performed By: #### P ROGLCM #### [facility] [address] [place] [address] Dr. Jaz Barajas LYMPH # 3.3 103/ul Normal 1.2-3.8 [facility] Comment on above: Performed By: #### P ROGLCM #### [facility] [address] [address] [address] Jaz Barajas Lymphocytes/100 WBC (Bld) 30.7 % Normal 20.5-60.0 [facility] Comment on above: Performed By: #### P ROGLCM #### [facility] [address] [place] [address] Dr. Jaz Barajas MANUAL DIFF REQ NO Normal [facility] Comment on above: Performed By: #### P ROGLCM #### [facility] [address] [place] [address] Dr. Jaz Barajas MCH (RBC) [Entitic mass] 26.6 pg Critically low 26.7-34.0 [facility] Comment on above: Performed By: #### P ROGLCM #### [facility] [address] [place] [address] Dr. Jaz Barajas MCHC (RBC) [Mass/Vol] 33.4 g/dL Normal 29.9-35.2 [facility] Comment on above: Performed By: #### P ROGLCM #### [facility] [address] [place] [address] Dr. Jaz Barajas MCV (RBC) [Entitic vol] 79.7 fL Critically low 81.0-99.0 [facility] Comment on above: Performed By: #### P ROGLCM #### [facility] [address] [place] [address] Dr. Jaz Barajas MONO # 0.8 103/ul Normal 0.3-0.8 [facility] Comment on above: Performed By: #### P ROGLCM #### [facility] [address] [place] [address] Dr. Jaz Barajas Monocytes/100 WBC (Bld) 7.4 % Normal 1.7-12.0 [facility] Comment on above: Performed By: #### P ROGLCM #### [facility] [address] [place] [address] Dr. Jaz Barajas NEUT # 6.3 103/ul Normal 1.4-6.5 [facility] Comment on above: Performed By: #### P ROGLCM #### [facility] [address] [place] [address] Dr. Jaz Barajas Neutrophils/100 WBC (Bld) 59.0 % Normal 43.0-75.0 [facility] Comment on above: Performed By: #### P ROGLCM #### [facility] [address] [place] [address] Dr. Jaz Barajas Platelet mean volume (Bld) [Entitic vol] 10.7 fL Normal 9.5-13.5 [facility] Comment on above: Performed By: #### P ROGLCM #### [facility] [address] [place] [address] Dr. Jaz Barajas PLT 326 103/ul Normal 150-450 [facility] Comment on above: Performed By: #### P ROGLCM #### [facility] [address] [place] [address] Dr. Jaz Barajsa RBC 5.07 106/ul Normal 4.20-5.40 [facility] Comment on above: Performed By: #### P ROGLCM #### [facility] [address] [place] [address] Dr. Jaz Barajas WBC 10.7 103/ul Normal 4.0-11.0 [facility] Comment on above: Performed By: #### P ROGLCM #### [facility] [address] [place] [address] ABD/PELV W CONon [...] GERALDINE LAZAR Date: 2022-11-15 09:13 Normal [facility] ER URINE PROFILEon 3 Bilirubin Ql (U) Negative Normal NEGATIVE [facility] Comment on above: Performed By: #### P ROGLCM #### [facility] [address] [place] [address] Dr. Jaz Barajas Clarity (U) CLEAR Normal CLEAR [facility] Comment on above: Performed By: #### P ROGLCM #### [facility] [address] [place] [address] Dr. Jaz Barajas Color (U) LT. YELLOW Normal YELLOW [facility] Comment on above: Performed By: #### P ROGLCM #### [facility] [address] [place] [address] Dr. Jaz Barajas ERUELFEGOD A micrscopic examina tion will be performed if indicated. Normal [facility] Comment on above: Performed By: #### P ROGLCM #### [facility] [address] [place] [address] Dr. Jaz Barajas Glucose Ql (U) 1000 mg/dl Abnormal NEGATIVE The [facility] Comment on above: Performed By: #### P ROGLCM #### [facility] [address] [place] [address] Dr. Jaz Barajas Hemoglobin Ql (U) Negative Normal NEGATIVE [facility] Comment on above: Performed By: #### P ROGLCM #### [facility] [address] [address] [address] Jaz Barajas Ketones Ql (U) Negative Normal NEGATIVE [facility] Comment on above: Performed By: #### P ROGLCM #### [facility] [address] [address] [address] Jaz Barajas LEUKOCYTES Negative Normal NEGATIVE [facility] Comment on above: Performed By: #### P ROGLCM #### [facility] [address] [address] [address] Jaz Barajas Nitrite Ql (U) Negative Normal NEGATIVE [facility] Comment on above: Performed By: #### P ROGLCM #### [facility] [address] [place] [address] Dr. Jaz Barajas pH (U) 6.0 [pH] Normal 5-9 [facility] Comment on above: Performed By: #### P ROGLCM #### [facility] [address] [place] [address] Dr. Jaz Barajas SPEC GRAVITY 1.015 Normal 1.005-<=1.0 25 [facility] Comment on above: Performed By: #### P ROGLCM #### [facility] [address] [place] [address] Dr. Jaz Barajas UA PROTEIN Negative Normal NEGATIVE/ TRACE [facility] Comment on above: Performed By: #### P ROGLCM #### [facility] [address] [address] [address] Jaz Barajas UR MICRO IND NOT INDICATED Normal [facility] Comment on above: Performed By: #### P ROGLCM #### [facility] [address] [place] [address] Dr. Jaz Barajas Urobilinogen Qn (U) 0.2 {Oxana'U}/dL Normal 0.2 - 1.0 [facility] Comment on above: Performed By: #### P ROGLCM #### [facility] [address] [place] [address] Dr. Jaz Barajas LIPASEon 03-17-2023 Lipase [Catalytic activity/Vol] 73.0 U/L Normal 73.0-393.0 [facility] Comment on above: Performed By: #### P REGU #### [facility] [address] [address] [address] Jaz Barajas URon 11-15-2022 , QUAL Negative Normal NEGATIVE [facility] Comment on above: Performed By: #### E RUR, PREGU ####[facility] [address] [place] [address]Dr. Jaz Barajas PROF 14(COMP METB)on 023 Albumin [Mass/Vol] 3.6 g/dL Normal 3.4-5.0 [facility] Comment on above: Performed By: #### P REGU #### [facility] [address] [place] [address] Dr. Jaz Barajas Albumin/Globulin [Mass ratio] 0.9 {ratio} Normal [facility] Comment on above: Performed By: #### P REGU #### [facility] [address] [address] [address] Jaz Barajas ALP [Catalytic activity/Vol] 98 U/L Normal 46-116 [facility] Comment on above: Performed By: #### P REGU #### [facility] [address] [place] [address] Dr. Jaz Barajas ALT [Catalytic activity/Vol] 138 U/L Critically high 14-59 [facility] Comment on above: Performed By: #### P REGU #### [facility] [address] [place] [address] Dr. Jaz Barajas Anion gap [Moles/Vol] 13.4 mmol/L Normal [facility] Comment on above: Performed By: #### P REGU #### [facility] [address] [place] [address] Dr. Jaz Barajas AST [Catalytic activity/Vol] 61 U/L Critically high 15-37 [facility] Comment on above: Performed By: #### P REGU #### [facility] [address] [address] [address] Jaz Barajas Bilirubin [Mass/Vol] 0.2 mg/dL Normal 0.2-1.0 [facility] Comment on above: Performed By: #### P REGU #### [facility] [address] [place] [address] Dr. Jaz Barajas Calcium [Mass/Vol] 9.4 mg/dL Normal 8.5-10.1 [facility] Comment on above: Performed By: #### P REGU #### [facility] [address] [place] [address] Dr. Jaz Barajas Chloride [Moles/Vol] 104 mmol/L Normal 98-107 [facility] Comment on above: Performed By: #### P REGU #### [facility] [address] [place] [address] Dr. Jaz Barajas CO2 [Moles/Vol] 24.7 mmol/L Normal 21.0-32.0 [facility] Comment on above: Performed By: #### P REGU #### [facility] [address] [place] [address] Dr. Jaz Barajas Creatinine [Mass/Vol] 0.69 mg/dL Normal 0.55-1.02 [facility] Comment on above: Performed By: #### P REGU #### [facility] [address] [place] [address] Dr. Jaz Barajas EGFR-AF KOSOVAN >60 Normal >=60 [facility] Comment on above: Performed By: #### P REGU #### [facility] [address] [place] [address] Dr. Jaz Barajas EGFR-NON AF KOSOVAN >60 Normal >=60 [facility] Comment on above: Performed By: #### P REGU #### [facility] [address] [place] [address] Dr. Jaz Barajas Globulin (S) [Mass/Vol] 4.2 g/dL Normal [facility] Comment on above: Performed By: #### P REGU #### [facility] [address] [place] [address] Dr. Jaz Barajas Glucose [Mass/Vol] 339 mg/dL Critically high 74-106 [facility] Comment on above: Performed By: #### P REGU #### [facility] [address] [address] [address] Jaz Barajas Potassium [Moles/Vol] 4.1 mmol/L Normal 3.5-5.1 [facility] Comment on above: Performed By: #### P REGU #### [facility] [address] [place] [address] Dr. Jaz Barajas Protein [Mass/Vol] 7.8 g/dL Normal 6.4-8.2 [facility] Comment on above: Performed By: #### P REGU #### [facility] [address] [place] [address] Dr. Jaz Barajas Sodium [Moles/Vol] 138 mmol/L Normal 136-145 [facility] Comment on above: Performed By: #### P REGU #### [facility] [address] [place] [address] Dr. Jaz Barajas Urea nitrogen [Mass/Vol] 17.0 mg/dL Normal 7.0-18.0 [facility] Comment on above: Performed By: #### P REGU #### [facility] [address] [place] [address] Dr. aJz Barajas Urea nitrogen/Creatinin e [Mass ratio] 24.6 mg/mg Normal [facility] Comment on above: Performed By: #### P REGU #### [facility] [address] [place] [address] Dr. Jaz Barajas CULTURE WOUNDon 11-13-2022 CULTURE [...] S F Tetracycline >=16 R F Normal [facility] Comment on above: Performed By: #### W OUNDCX ####[facility] [address] [place], [place] [address]AbDr. Jaz Barajas Covid-19 PCR ([facility])on 08-01 SARS-CoV-2 (COVID-19) RNA REANNA+probe Ql (Unsp spec) Not detected Normal NOT DETECTED [facility] Comment on above: Result Comment: This test is not yet approved or cleared by the [place] FDA. When there are no FDA-approved or cleared tests available, and other criteria are met, FDA can make tests available under an emergency access mechanism called an Emergency Use Authorization (EUA). The EUA for this test is supported by the [place] of Health and Human Service's (HHS's) declaration [...] SARS-CoV-2. Performed By: #### P DUSTINM #### [facility] [address] [address] [address] Jaz Barajas INFLUENZA A AND B AGon 08-18 [facility] SEE BELOW Normal [facility] Comment on above: Result Comment: Nega tive for Flu A protein angiten. Infection due to Flu A cannot be ruled out. Flu A angiten in the sample may be below the detection limit of the test. Performed By: #### P VALENTINELCM #### [facility] [address] [place], [place] [address] Dr. Jaz Barajas [facility] Normal [facility] Comment on above: Result Comment: Nega tive for Flu B protein antigen. Infection due to Flu B cannot be ruled out. Flu B antigen in the sample may be below the detection limit of the test. Performed By: #### P ROGLCM #### [facility] [address] [address] [address] Jaz Barajas INFLUENZA A AG Negative Normal NEGATIVE SEE COMMENT [facility] Comment on above: Performed By: #### P ROGLCM #### [facility] [address] [address] [address] Jaz Barajas INFLUENZA B AG Negative Normal NEGATIVE SEE COMMENT [facility] Comment on above: Performed By: #### P ROGLCM #### [facility] [address] [address] [address] Jaz Barajas INTERNAL CONTROLS Within Normal Limits Normal Wi thin Normal Limits [facility] Comment on above: Performed By: #### P ROGLCM #### [facility] [address] [address] [address] Jaz Barajas POINT OF CARE GLUCOSEon - Glucose [Mass/Vol] 310 mg/dL Critically high 74-106 [facility] Comment on above: Performed By: #### P ROGLCM #### [facility] [address] [address] [address] Jaz Barajas XR CHEST 1 Von [...] EDUARDO RHODES Date: 2022-08-18 15:33 Normal [facility] PREG HCG QUALon 05-14-2022 , QUAL Negative Normal NEGATIVE [facility] Comment on above: Performed By: #### P REG ####[facility] [address] [place] [address]Dr. Jaz Barajas CBC AUTO DIFFon 05-08-2022 BASO # 0.1 103/ul Normal 0.0-0.1 [facility] Comment on above: Performed By: #### C BC ####[facility] [address] [place] [id number]. Jaz Barajas Basophils/100 WBC (Bld) 0.6 % Normal 0.2-2.0 [facility] Comment on above: Performed By: #### C BC ####[facility] [address] [place] [id number]. Jaz Barajas EO # 0.2 103/ul Normal 0.0-0.7 [facility] Comment on above: Performed By: #### C BC ####[facility] [address] [place], [place] [address]Dr. Jaz Barajas Eosinophils/100 WBC (Bld) 1.5 % Normal 0.9-7.0 [facility] Comment on above: Performed By: #### C BC ####[facility] [address] [place], [place] [address]Dr. Jaz Barajas Erythrocyte distribution width (RBC) [Ratio] 12.6 % Normal 11.0-15.0 [facility] Comment on above: Performed By: #### C BC ####[facility] [address] [place], [place] [address]Dr. Jaz Barajas Hematocrit (Bld) [Volume fraction] 38.7 % Normal 36.0-48.0 [facility] Comment on above: Performed By: #### C BC ####[facility] [address] [place] [id number]. Jaz Barajas Hemoglobin (Bld) [Mass/Vol] 12.9 g/dL Normal 12.0-16.0 [facility] Comment on above: Performed By: #### C BC ####[facility] [address] [place], [place] [address]Dr. Jaz Barajas IG # 0.02 10e3/ul Normal 0.00-0.03 [facility] Comment on above: Performed By: #### C BC ####[facility] [address] [place], [place] [address]Dr. Jaz Barajsa IG % 0.2 % Normal 0.0-0.5 [facility] Comment on above: Performed By: #### C BC ####[facility] [address] [place] [id number]. Jaz Barajas LYMPH # 3.5 103/ul Normal 1.2-3.8 [facility] Comment on above: Performed By: #### C BC ####[facility] [address] [place] [id number]. Jaz Barajas Lymphocytes/100 WBC (Bld) 34.4 % Normal 20.5-60.0 [facility] Comment on above: Performed By: #### C BC ####[facility] [address] [place] [id number]. Jaz Barajas MANUAL DIFF REQ NO Normal [facility] Comment on above: Performed By: #### C BC ####[facility] [address] [place] [id number]. Jaz Barajas MCH (RBC) [Entitic mass] 27.2 pg Normal 26.7-34.0 [facility] Comment on above: Performed By: #### C BC ####[facility] [address] [place] [id number]. Jaz Barajas MCHC (RBC) [Mass/Vol] 33.3 g/dL Normal 29.9-35.2 [facility] Comment on above: Performed By: #### C BC ####[facility] [address] [place] [id number]. Jaz Barajas MCV (RBC) [Entitic vol] 81.6 fL Normal 81.0-99.0 [facility] Comment on above: Performed By: #### C BC ####[facility] [address] [place] [id number]. Jaz Barajas MONO # 0.7 103/ul Normal 0.3-0.8 [facility] Comment on above: Performed By: #### C BC ####[facility] [address] [place] [id number]. Jaz Karl Monocytes/100 WBC (Bld) 7.0 % Normal 1.7-12.0 [facility] Comment on above: Performed By: #### C BC ####[facility] [address] [place], [place] [address]Hk. Jaz Barajas NEUT # 5.7 103/ul Normal 1.4-6.5 [facility] Comment on above: Performed By: #### C BC ####[facility] [address] [place], [place] [address]Br. Jaz Barajas Neutrophils/100 WBC (Bld) 56.3 % Normal 43.0-75.0 [facility] Comment on above: Performed By: #### C BC ####[facility] [address] [place] [id number]. Jaz Barajas Platelet mean volume (Bld) [Entitic vol] 11.0 fL Normal 9.5-13.5 [facility] Comment on above: Performed By: #### C BC ####[facility] [address] [place] [id number]. Jaz Barajas PLT 274 103/ul Normal 150-450 [facility] Comment on above: Performed By: #### C BC ####[facility] [facility] [address] [place] [id number]. Jaz Barajas RBC 4.74 106/ul Normal 4.20-5.40 [facility] Comment on above: Performed By: #### C BC ####[facility] [address] [place] [id number]. Jaz Barajas WBC 10.0 103/ul Normal 4.0-11.0 [facility] Comment on above: Performed By: #### C BC ####[facility] [address] [place] [id number]. Jaz Barajas Covid-19 PCR (CVDTB)on SARS-CoV-2 (COVID-19) RNA REANNA+probe Ql (Unsp spec) Not detected Normal NOT DETECTED [facility] Comment on above: Result Comment: This test is not yet approved or cleared by the [place] FDA. When there are no FDA-approved or cleared tests available, and other criteria are met, FDA can make tests available under an emergency access mechanism called an Emergency Use Authorization (EUA). The EUA for this test is supported by the [place] of Health and Human Service's (HHS's) declaration [...] SARS-CoV-2. Performed By: #### P REGU #### [facility] [address] [place] [address] Dr. Jaz Barajas PROF CHEM 8 (BAS METB)on Anion gap [Moles/Vol] 10.1 mmol/L Normal [facility] Comment on above: Performed By: #### P REGU #### [facility] [address] [place] [address] Dr. Jaz Barajas Calcium [Mass/Vol] 9.0 mg/dL Normal 8.5-10.1 [facility] Comment on above: Performed By: #### P REGU #### [facility] [address] [place] [address] Dr. Jaz Barajas Chloride [Moles/Vol] 99 mmol/L Normal 98-107 [facility] Comment on above: Performed By: #### P REGU #### [facility] [address] [place] [address] Dr. Jaz Barajas CO2 [Moles/Vol] 29.1 mmol/L Normal 21.0-32.0 [facility] Comment on above: Performed By: #### P REGU #### [facility] [address] [place] [address] Dr. Jaz Barajas Creatinine [Mass/Vol] 0.80 mg/dL Normal 0.55-1.02 [facility] Comment on above: Performed By: #### P REGU #### [facility] [address] [place] [address] Dr. Jaz Barajas EGFR-AF KOSOVAN >60 Normal >=60 [facility] Comment on above: Performed By: #### P REGU #### [facility] [address] [place] [address] Dr. Jaz Barajas EGFR-NON AF KOSOVAN >60 Normal >=60 [facility] Comment on above: Performed By: #### P REGU #### [facility] [address] [place] [address] Dr. Jaz Barajas Glucose [Mass/Vol] 217 mg/dL Critically high 74-106 [facility] Comment on above: Performed By: #### P REGU #### [facility] [address] [place] [address] Dr. Jaz Barajas Potassium [Moles/Vol] 4.2 mmol/L Normal 3.5-5.1 [facility] Comment on above: Result Comment: spec imen slightly hemolyzed may affect K+ result Performed By: #### P REGU #### [facility] [address] [place] [address] Dr. Jaz Barajas Sodium [Moles/Vol] 134 mmol/L Critically low 136-145 [facility] Comment on above: Performed By: #### P REGU #### [facility] [address] [place] [address] Dr. Jaz Barajas Urea nitrogen [Mass/Vol] 11.0 mg/dL Normal 7.0-18.0 [facility] Comment on above: Performed By: #### P REGU #### [facility] [address] [place] [address] Dr. Jaz Barajas Urea nitrogen/Creatinin e [Mass ratio] 13.8 mg/mg Normal [facility] Comment on above: Performed By: #### P REGU #### [facility] [address] [place] [address] ABD/PELV W CONon [...] JEYSON BLANTON Date: 2022-04-18 12:31 Normal [facility] ER URINE PROFILEon 2 Bilirubin Ql (U) Negative Normal NEGATIVE [facility] Comment on above: Performed By: #### E GLORIA PREGU ####[facility] [address] [place] [address]Dr. Jaz Barajas Clarity (U) CLEAR Normal CLEAR [facility] Comment on above: Performed By: #### Neva CASTRO PREGU ####[facility] [address] [place] [address]Dr. Jaz Barajas Color (U) LT. YELLOW Normal YELLOW [facility] Comment on above: Performed By: #### E GLORIA PREGU ####[facility] [address] [place] [address]Dr. Jaz MEDINA A micrscopic examina tion will be performed if indicated. Normal [facility] Comment on above: Performed By: #### Neva RUR, PREGU ####[facility] [address] [place] [address]Dr. Jaz Barajas Glucose Ql (U) 1000 mg/dl Abnormal NEGATIVE [facility] Comment on above: Performed By: #### E RUR, PREGU ####[facility] [address] [place], [place] [address]Dr. Jaz Barajas Hemoglobin Ql (U) Negative Normal NEGATIVE [facility] Comment on above: Performed By: #### Neva RUR, PREGU ####[facility] [address] [place], [place] [address]Dr. Jaz Barajas Ketones Ql (U) Negative Normal NEGATIVE [facility] Comment on above: Performed By: #### Neva RUR, PREGU ####[facility] [address] [place], [place] [address]Dr. Jaz Barajas LEUKOCYTES Negative Normal NEGATIVE [facility] Comment on above: Performed By: #### Neva RUR, PREGU ####[facility] [address] [place], [place] [address]Dr. Jaz Barajas Nitrite Ql (U) Negative Normal NEGATIVE [facility] Comment on above: Performed By: #### Neva BREAUXR, PREGU ####[facility] [address] [place], [place] [address]Dr. Jaz Barajas pH (U) 6.5 [pH] Normal 5-9 [facility] Comment on above: Performed By: #### Neva RUR, PREGU ####[facility] [address] [place], [place] [address]Dr. Jza Barajas SPEC GRAVITY 1.010 Normal 1.005-<=1.0 25 [facility] Comment on above: Performed By: #### Neva RUR, PREGU ####[facility] [address] [place], [place] [address]Dr. Jaz Barajas UA PROTEIN Negative Normal NEGATIVE/ TRACE [facility] Comment on above: Performed By: #### E RUR, PREGU ####[facility] [address] [place] [id number]. Jaz Barajas UR MICRO IND NOT INDICATED Normal [facility] Comment on above: Performed By: #### E RUR, PREGU ####[facility] [address] [place], [place] [address]La. Jaz Barajas Urobilinogen Qn (U) 0.2 {Oxana'U}/dL Normal 0.2 - 1.0 [facility] Comment on above: Performed By: #### E RUR, PREGU ####[facility] [address] [place] [id number]. Jaz Barajas URon 04-18-2022 , QUAL Negative Normal NEGATIVE [facility] Comment on above: Performed By: #### E RUR, PREGU ####[facility] [address] [place] [id number]. Jaz Barajas 17-[place] PROGESTERONE, LC/MSon 04-05-2022 17-[place] Progesterone LCMS 43 ng/dL Normal [facility] Comment on above: Result Comment: Adul t Female Follicular 15 - 70 Luteal 35 - 290 Performed By: #### P ROGLCM #### [facility] [address] [place] [address] [address] Jaz Barajas ANDROSTENEDINE LC/MSon 04-05 Androstenedione LCMS 111 ng/dL Normal 41-262 [facility] Comment on above: Result Comment: This test was developed and its performance characteristics determined by [facility]. It has not been cleared or approved by the Food and Drug Administration. Performed By: #### A NDROST #### [facility] [address] [address] [address] Jaz Barajas TESTOSTERONE, TOTALon 2021 Testosterone [Mass/Vol] 70 ng/dL Critically high 8-60 [facility] Comment on above: Performed By: #### T ESTTOT ####[facility] [address] [place] [id number]. Jaz Barajas PROF CHEM 8 (BAS METB)on Anion gap [Moles/Vol] 11.5 mmol/L Normal [facility] Comment on above: Performed By: #### B MP ####[facility] [address] [place] [address]Dr. Jaz Barajas Calcium [Mass/Vol] 9.1 mg/dL Normal 8.5-10.1 [facility] Comment on above: Performed By: #### B MP ####[facility] [address] [place] [address]Dr. Jaz Barajas Chloride [Moles/Vol] 103 mmol/L Normal 98-107 [facility] Comment on above: Performed By: #### B MP ####[facility] [address] [place], [place] [address]Dr. Hannahisela Karl CO2 [Moles/Vol] 28.0 mmol/L Normal 21.0-32.0 [facility] Comment on above: Performed By: #### B MP ####[facility] [address] [place], [place] [address]Dr. Jaz Barajas Creatinine [Mass/Vol] 0.74 mg/dL Normal 0.55-1.02 [facility] Comment on above: Performed By: #### B MP ####[facility] [address] [place], [place] [address]Dr. [place]isela Karl EGFR-AF KOSOVAN >60 Normal >=60 [facility] Comment on above: Performed By: #### B MP ####[facility] [address] [place], [place] [address]Dr. Jaz Barajas EGFR-NON AF KOSOVAN >60 Normal >=60 [facility] Comment on above: Performed By: #### B MP ####[facility] [address] [place], [place] [address]Dr. Jaz Barajas Glucose [Mass/Vol] 197 mg/dL Critically high 74-106 [facility] Comment on above: Performed By: #### B MP ####[facility] [address] [place], [place] [address]Dr. Jaz Barajas Potassium [Moles/Vol] 4.5 mmol/L Normal 3.5-5.1 [facility] Comment on above: Performed By: #### B MP ####[facility] [address] [place] [id number]. Jaz Barajas Sodium [Moles/Vol] 138 mmol/L Normal 136-145 [facility] Comment on above: Performed By: #### B MP ####[facility] [address] [place] [id number]. Jaz Barajas Urea nitrogen [Mass/Vol] 11.0 mg/dL Normal 7.0-18.0 [facility] Comment on above: Performed By: #### B MP ####[facility] [address] [place] [address]Dr. Jaz Barajas Urea nitrogen/Creatinin e [Mass ratio] 14.9 mg/mg Normal [facility] Comment on above: Performed By: #### B MP ####[facility] [address] [place] [address]Dr. Jaz Barajas XR ABD FLAT_UPon 02-06-2022 XR [...] EDUARDO RIVERS Date: 2022-02-06 17:25 Normal [facility] CREATININEon 01-31-2022 Creatinine [Mass/Vol] 0.74 mg/dL Normal 0.55-1.02 [facility] Comment on above: Performed By: #### P ROGLCM #### [facility] [address] [place] [address] [address] Jaz Barajas EGFR-AF KOSOVAN >60 Normal >=60 [facility] Comment on above: Performed By: #### P ROGLCM #### [facility] [address] [place] [address] [address] Jaz Barajas EGFR-NON AF KOSOVAN >60 Normal >=60 [facility] Comment on above: Performed By: #### P ROGLCM #### [facility] [address] [place], [place] [address] ABDOMEN W CONon [...] JEYSON BLANTON Date: 2022-01-31 18:16 Normal [facility] ACETONE SERUMon 01-09-2022 ACETONE Negative Normal NEGATIVE [facility] Comment on above: Performed By: #### A CETON ####[facility] [address] [place], [place] [address]Dr. Jaz Barajas CARDIAC BISI ADMITon 022 CK [Catalytic activity/Vol] 58 U/L Normal 26-192 [facility] Comment on above: Performed By: #### P REGU #### [facility] [address] [place], [place] [address] Dr. Jaz Barajas CK.MB [Mass/Vol] 0.64 ng/mL Normal <=3.60 [facility] Comment on above: Performed By: #### P REGU #### [facility] [address] [place] [address] Dr. Jaz Barajas HSTROP 5.3 pg/mL Normal 4.0-51.3 [facility] Comment on above: Result Comment: CUT- OFF POINTS HAVE BEEN ESTABLISHED BASED ON THE FOURTH UNIVERSAL DEFINITIONS OF MYOCARDIAL INFARCTION. THE UPPER REFERENCE LIMIT (URL) OF TROPONIN, DEFINED THE 99TH PERCENTILE OF cTnI DISTRIBUTION IN A REFERENCE POPULATION, HAS BEEN CONFIRMED THE DECISION THRESHOLD FOR MD DIAGNOSIS. Performed By: #### P REGU #### [facility] [address] [place] [address] Dr. Jaz Barajas WAI 30 ng/mL Normal 9-82 [facility] Comment on above: Performed By: #### P REGU #### [facility] [address] [place] [address] Dr. Jaz Barajas CBC AUTO DIFFon 01-09-2022 BASO # 0.1 103/ul Normal 0.0-0.1 [facility] Comment on above: Performed By: #### P REGU #### [facility] [address] [place] [address] Dr. Jaz Barajas Basophils/100 WBC (Bld) 0.5 % Normal 0.2-2.0 [facility] Comment on above: Performed By: #### P REGU #### [facility] [address] [place] [address] Dr. Jaz Barajas EO # 0.3 103/ul Normal 0.0-0.7 [facility] Comment on above: Performed By: #### P REGU #### [facility] [address] [place] [address] Dr. Jaz Barajas Eosinophils/100 WBC (Bld) 2.5 % Normal 0.9-7.0 [facility] Comment on above: Performed By: #### P REGU #### [facility] [address] [place] [address] Dr. Jaz Barajas Erythrocyte distribution width (RBC) [Ratio] 12.8 % Normal 11.0-15.0 [facility] Comment on above: Performed By: #### P REGU #### [facility] [address] [place] [address] Dr. Jaz Barajas Hematocrit (Bld) [Volume fraction] 41.0 % Normal 36.0-48.0 [facility] Comment on above: Performed By: #### P REGU #### [facility] [address] [place] [address] Dr. Jaz Barajas Hemoglobin (Bld) [Mass/Vol] 13.6 g/dL Normal 12.0-16.0 [facility] Comment on above: Performed By: #### P REGU #### [facility] [address] [place] [address] Dr. Jaz Barajas IG # 0.03 10e3/ul Normal 0.00-0.03 [facility] Comment on above: Performed By: #### P REGU #### [facility] [address] [place] [address] Dr. Jaz Barajas IG % 0.3 % Normal 0.0-0.5 [facility] Comment on above: Performed By: #### P REGU #### [facility] [address] [place] [address] Dr. Jaz Barajas LYMPH # 2.7 103/ul Normal 1.2-3.8 [facility] Comment on above: Performed By: #### P REGU #### [facility] [address] [place] [address] Dr. Jaz Barajas Lymphocytes/100 WBC (Bld) 25.7 % Normal 20.5-60.0 [facility] Comment on above: Performed By: #### P REGU #### [facility] [address] [place] [address] Dr. Jaz Barajas MANUAL DIFF REQ NO Normal [facility] Comment on above: Performed By: #### P REGU #### [facility] [address] [place] [address] Dr. Jaz Barajas MCH (RBC) [Entitic mass] 27.7 pg Normal 26.7-34.0 [facility] Comment on above: Performed By: #### P REGU #### [facility] [address] [place] [address] Dr. Jza Barajas MCHC (RBC) [Mass/Vol] 33.2 g/dL Normal 29.9-35.2 [facility] Comment on above: Performed By: #### P REGU #### [facility] [address] [place] [address] Dr. Jaz Barajas MCV (RBC) [Entitic vol] 83.5 fL Normal 81.0-99.0 [facility] Comment on above: Performed By: #### P REGU #### [facility] [address] [place] [address] Dr. Jaz Barajas MONO # 0.8 103/ul Normal 0.3-0.8 [facility] Comment on above: Performed By: #### P REGU #### [facility] [address] [place] [address] Dr. Jaz Barajas Monocytes/100 WBC (Bld) 7.4 % Normal 1.7-12.0 [facility] Comment on above: Performed By: #### P REGU #### [facility] [address] [place] [address] Dr. Jaz Barajas NEUT # 6.6 103/ul Critically high 1.4-6.5 [facility] Comment on above: Performed By: #### P REGU #### [facility] [address] [place] [address] Dr. Jaz Barajas Neutrophils/100 WBC (Bld) 63.6 % Normal 43.0-75.0 [facility] Comment on above: Performed By: #### P REGU #### [facility] [address] [place] [address] Dr. Jaz Barajas Platelet mean volume (Bld) [Entitic vol] 11.5 fL Normal 9.5-13.5 [facility] Comment on above: Performed By: #### P REGU #### [facility] [address] [place] [address] Dr. Jaz Barajas PLT 227 103/ul Normal 150-450 [facility] Comment on above: Performed By: #### P REGU #### [facility] [address] [place], [place] [address] Dr. Jaz Barajas RBC 4.91 106/ul Normal 4.20-5.40 [facility] Comment on above: Performed By: #### P REGU #### [facility] [address] [place], [place] [address] Dr. Jaz Barajas WBC 10.4 103/ul Normal 4.0-11.0 [facility] Comment on above: Performed By: #### P REGU #### [facility] [address] [place], [place] [address] Dr. Jaz Barajas CTA CHEST WO W [...] by: JEYSON BLANTON Date: 2022-01-09 09:47 Normal [facility] D-DIMERon 01-09-2022 D-DIMER 0.56 mg/L FEU Critically high 0.19-0.50 [facility] Comment on above: Result Comment: test repeated critical value verified Performed By: #### D DIM, PT, PTT #### [facility] [address] [place] [address] Dr. Jaz Barajas D-DIMER COMMENTS SEE BELOW Normal [facility] Comment on above: Result Comment: Incr [...] By: #### D DIM, PT, PTT #### [facility] [address] [place] [address] Dr. Jaz Barajas ER URINE PROFILEon 2 Bilirubin Ql (U) Negative Normal NEGATIVE [facility] Comment on above: Performed By: #### P ROGLCM #### [facility] [address] [place] [address] Dr. Jaz Barajas Clarity (U) CLEAR Normal CLEAR [facility] Comment on above: Performed By: #### P ROGLCM #### [facility] [address] [place] [address] Dr. Jaz Barajas Color (U) YELLOW Normal YELLOW [facility] Comment on above: Performed By: #### P ROGLCM #### [facility] [address] [place] [address] Dr. Jaz Barajas ERUAHD A micrscopic examina tion will be performed if indicated. Normal [facility] Comment on above: Performed By: #### P ROGLCM #### [facility] [address] [place] [address] Dr. Jaz Barajas Glucose Ql (U) 500 mg/dl Abnormal NEGATIVE [facility] Comment on above: Performed By: #### P ROGLCM #### [facility] [address] [place] [address] Dr. Jaz Barajas Hemoglobin Ql (U) Negative Normal NEGATIVE [facility] Comment on above: Performed By: #### P ROGLCM #### [facility] [address] [address] [address] Jaz Barajas Ketones Ql (U) Negative Normal NEGATIVE [facility] Comment on above: Performed By: #### P ROGLCM #### [facility] [address] [place] [address] Dr. Jaz Barajas LEUKOCYTES Negative Normal NEGATIVE [facility] Comment on above: Performed By: #### P ROGLCM #### [facility] [address] [address] [address] Jaz Barajas Nitrite Ql (U) Negative Normal NEGATIVE [facility] Comment on above: Performed By: #### P ROGLCM #### [facility] [address] [place] [address] Dr. Jaz Barajas pH (U) 6.0 [pH] Normal 5-9 [facility] Comment on above: Performed By: #### P ROGLCM #### [facility] [address] [place] [address] Dr. Jaz Barajas SPEC GRAVITY >=1.030 Abnormal 1.005-<=1.0 25 [facility] Comment on above: Performed By: #### P ROGLCM #### [facility] [address] [place] [address] Dr. Jaz Barajas UA PROTEIN Negative Normal NEGATIVE/ TRACE [facility] Comment on above: Performed By: #### P ROGLCM #### [facility] [address] [place] [address] Dr. Jaz Barajas UR MICRO IND NOT INDICATED Normal [facility] Comment on above: Performed By: #### P ROGLCM #### [facility] [address] [place] [address] Dr. Jaz Barajas Urobilinogen Qn (U) 0.2 {Oxana'U}/dL Normal 0.2 - 1.0 [facility] Comment on above: Performed By: #### P ROGLCM #### [facility] [address] [place] [address] Dr. Jaz Barajas PH VENOUS BLOODon 01-09-2022 PCO2 VENOUS 39.2 mmHg Critically low 40.0-52.0 [facility] Comment on above: Performed By: #### P HVEN #### [facility] [address] [address] [address] Jaz Barajas pH VENOUS 7.409 Normal 7.330-7.430 [facility] Comment on above: Performed By: #### P HVEN #### [facility] [address] [address] [address] Jaz Barajas URon 01-09-2022 , QUAL Negative Normal NEGATIVE [facility] Comment on above: Performed By: #### P REGU #### [facility] [address] [place] [address] Dr. Jaz Barajas PROF 14(COMP METB)on 022 Albumin [Mass/Vol] 3.2 g/dL Critically low 3.4-5.0 [facility] Comment on above: Performed By: #### P REGU #### [facility] [address] [address] [address] Jaz Barajas Albumin/Globulin [Mass ratio] 0.8 {ratio} Normal [facility] Comment on above: Performed By: #### P REGU #### [facility] [address] [place] [address] Dr. Jaz Barajas ALP [Catalytic activity/Vol] 109 U/L Normal 46-116 [facility] Comment on above: Performed By: #### P REGU #### [facility] [address] [address] [address] Jaz Barajas ALT [Catalytic activity/Vol] 95 U/L Critically high 14-59 [facility] Comment on above: Performed By: #### P REGU #### [facility] [address] [address] [address] Jaz Barajas Anion gap [Moles/Vol] 11.7 mmol/L Normal [facility] Comment on above: Performed By: #### P REGU #### [facility] [address] [place] [address] Dr. Jaz Barajas AST [Catalytic activity/Vol] 44 U/L Critically high 15-37 [facility] Comment on above: Performed By: #### P REGU #### [facility] [address] [address] [address] Jaz Barajas Bilirubin [Mass/Vol] 0.3 mg/dL Normal 0.2-1.0 [facility] Comment on above: Performed By: #### P REGU #### [facility] [address] [address] [address] Jaz Barajas Calcium [Mass/Vol] 8.8 mg/dL Normal 8.5-10.1 [facility] Comment on above: Performed By: #### P REGU #### [facility] [address] [address] [address] Jaz Barajas Chloride [Moles/Vol] 102 mmol/L Normal 98-107 [facility] Comment on above: Performed By: #### P REGU #### [facility] [address] [place] [address] Dr. Jaz Barajas CO2 [Moles/Vol] 25.3 mmol/L Normal 21.0-32.0 [facility] Comment on above: Performed By: #### P REGU #### [facility] [address] [place] [address] Dr. Jaz Barajas Creatinine [Mass/Vol] 0.86 mg/dL Normal 0.55-1.02 [facility] Comment on above: Performed By: #### P REGU #### [facility] [address] [place] [address] Dr. Jaz Barajas EGFR-AF KOSOVAN >60 Normal >=60 [facility] Comment on above: Performed By: #### P REGU #### [facility] [address] [address] [address] Jaz Barajas EGFR-NON AF KOSOVAN >60 Normal >=60 [facility] Comment on above: Performed By: #### P REGU #### [facility] [address] [place] [address] Dr. Jaz Barajas Globulin (S) [Mass/Vol] 3.9 g/dL Normal [facility] Comment on above: Performed By: #### P REGU #### [facility] [address] [address] [address] Jaz Barajas Glucose [Mass/Vol] 230 mg/dL Critically high 74-106 [facility] Comment on above: Performed By: #### P REGU #### [facility] [address] [address] [address] Jaz Barajas Potassium [Moles/Vol] 4.0 mmol/L Normal 3.5-5.1 [facility] Comment on above: Performed By: #### P REGU #### [facility] [address] [address] [address] Jaz Barajas Protein [Mass/Vol] 7.1 g/dL Normal 6.4-8.2 [facility] Comment on above: Performed By: #### P REGU #### [facility] [address] [address] [address] Jaz Barajas Sodium [Moles/Vol] 135 mmol/L Critically low 136-145 [facility] Comment on above: Performed By: #### P REGU #### [facility] [address] [address] [address] Jaz Barajas Urea nitrogen [Mass/Vol] 15.0 mg/dL Normal 7.0-18.0 [facility] Comment on above: Performed By: #### P REGU #### [facility] [address] [address] [address] Jaz Barajas Urea nitrogen/Creatinin e [Mass ratio] 17.4 mg/mg Normal [facility] Comment on above: Performed By: #### P REGU #### [facility] [address] [address] [address] Jaz Barajas PROTIMEon 01-09-2022 INR Coag (PPP) [Relative time] 0.96 {INR} Normal [facility] Comment on above: Performed By: #### D DIM, PT, PTT #### [facility] [address] [place] [address] Dr. Jaz Barajas INR GUIDELINES SEE BELOW Normal [facility] Comment on above: Result Comment: UMU RED INR: 2.0 - 3.0 CONDITIONS NOT LISTED BELOW 2.5 - 3.5 FOR PROSTHETIC HEART VALVE REPLACEMENT 2.5 - 3.5 RECURRENT THROMBOSIS Performed By: #### D DIM, PT, PTT #### [facility] [address] [place] [address] Dr. Jaz Barajas PT Coag (PPP) [Time] 10.4 s Normal 9.0-11.6 [facility] Comment on above: Performed By: #### D DIM, PT, PTT #### [facility] [address] [place] [address] Dr. Jaz Barajas PTTon 01-09-2022 aPTT Coag (Bld) [Time] 28.8 s Normal 22.3-36.2 [facility] Comment on above: Performed By: #### D DIM, PT, PTT #### [facility] [address] [place] [address] Dr. Jaz Barajas TROPONIN, HIGH SENSITIVITYon 01-09-2022 HSTROP 4.5 pg/mL Normal 4.0-51.3 [facility] Comment on above: Result Comment: CUT- OFF POINTS HAVE BEEN ESTABLISHED BASED ON THE FOURTH UNIVERSAL DEFINITIONS OF MYOCARDIAL INFARCTION. THE UPPER REFERENCE LIMIT (URL) OF TROPONIN, DEFINED THE 99TH PERCENTILE OF cTnI DISTRIBUTION IN A REFERENCE POPULATION, HAS BEEN CONFIRMED THE DECISION THRESHOLD FOR MD DIAGNOSIS. Performed By: #### P ROGLCM #### [facility] [address] [place] [address] Dr. Jaz Barajas TSHon 01-09-2022 TSH 2.769 uIU/mL Normal 0.358-3.740 [facility] Comment on above: Performed By: #### P REGU #### [facility] [address] [place] [address] Dr. Jaz Barajas TSH RANGE SEE BELOW Normal [facility] Comment on above: Result Comment: <0.3 4 UIU/ml HYPERTHYROID 0.34-5.60 UIU/ml EUTHYROID >5.60 UIU/ml HYPOTHYROID Performed By: #### P REGU #### [facility] [address] [place] [address] Dr. Jaz Barajas XR CHEST 1 Von [...] JOSE EDUARDO RIVERS Date: 2022-01-09 08:29 Normal [facility] Vital Signs Date Time Vital Sign Value Performing Clinician Facility 06-16-2024 17:05-0400 Body height 160 cm Ariane Russell ENFORCEMENT MANAGER Work Phone: [facility] 06-16-2024 17:05-0400 Body mass index (BMI) [Ratio] 43.65 kg/m2 Ariane Russell ENFORCEMENT MANAGER Work Phone: [facility] 06-16-2024 17:05-0400 Body temperature 98.8 [degF] Ariane Russell ENFORCEMENT MANAGER Work Phone: [facility] 06-16-2024 17:05-0400 Body weight 111.77 kg Arinae Garcaijose ENFORCEMENT MANAGER Work Phone: [facility] 06-16-2024 17:05-0400 Diastolic blood pressure 80 mm[Hg] Ariane Russell ENFORCEMENT MANAGER Work Phone: [facility] 06-16-2024 17:05-0400 Heart rate 81 /min Ariane Russell ENFORCEMENT MANAGER Work Phone: [facility] 06-16-2024 17:05-0400 Respiratory rate 18 /min Ariane Russell ENFORCEMENT MANAGER Work Phone: [facility] 06-16-2024 17:05-0400 SaO2% (BldA) [Mass fraction] 98 % Ariane Wells ENFORCEMENT MANAGER Work Phone: [facility] 06-16-2024 17:05-0400 Systolic blood pressure 110 mm[Hg] Ariane Wells ENFORCEMENT MANAGER Work Phone: [facility] 11-27-2023 12:54-0400 Body temperature 97.88 [degF] Riky Rey [facility] 11-27-2023 12:54-0400 Diastolic blood pressure 86 mm[Hg] Riky Le [facility] 11-27-2023 12:54-0400 Heart rate 78 /min Rikychristian Le [facility] 11-27-2023 12:54-0400 Respiratory rate 20 /min Rikychristian Le [facility] 11-27-2023 12:54-0400 SaO2% (BldA) [Mass fraction] 98 % Rikychristian Le [facility] 11-27-2023 12:54-0400 Systolic blood pressure 133 mm[Hg] Riky Rey [facility] Encounters Encounter Date Encounter Type Care Provider Facility Start: 06-23-2024 End: 06-23-2024 Refill Ariane Wells ENFORCEMENT MANAGER Work Phone: [facility] Comment on above: Yeast infection (Germaine ed Dx) Start: 06-16-2024 End: 06-16-2024 Office outpatient visit 25 minutes Ariane Wells ENFORCEMENT MANAGER Work Phone: [facility] Comment on above: Encounter for well w [...] 06-16-2024 End: 06-16-2024 Bamboo flowsheet Ariane Wells ENFORCEMENT MANAGER Work Phone: [facility] Start: 06-16-2024 End: 06-23-2024 Bamboo flowsheet Ariane Wells ENFORCEMENT MANAGER Work Phone: [facility] Start: 06-16-2024 End: 06-23-2024 Clinisync Result Encounter Ariane Wells ENFORCEMENT MANAGER Work Phone: [facility] Unsolicited Start: 06-16-2024 End: 06-16-2024 Patient encounter procedure Ariane Wells ENFORCEMENT MANAGER Work Phone: [facility] Start: 05-30-2024 End: 06-03-2024 Clinisync Result Encounter Generic External Data Provider [facility] Unsolicited Start: 05-30-2024 End: 06-03-2024 Clinisync Result Encounter Generic External Data Provider [facility] Unsolicited Start: 05-26-2024 End: 05-26-2024 Refill Ariane Wells ENFORCEMENT MANAGER Work Phone: [facility] Comment on above: Candidiasis of vagin a (Primary Dx) Start: 05-11-2024 End: 05-11-2024 Office outpatient visit 25 minutes Joann A Felter BUFFING MACHINE OPERATOR-MANAGER WEALTH MANAGEMENT Work Phone: [facility] Comment on above: 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) Start: 05-11-2024 End: 05-11-2024 ambulatory JOANN A FELTER Not Available Start: 05-11-2024 End: 05-11-2024 Bamboo flowsheet Joann A Felter BUFFING MACHINE OPERATOR-MANAGER WEALTH MANAGEMENT Work Phone: [facility] Start: 05-11-2024 End: 05-11-2024 Bamboo flowsheet Joann A Felter BUFFING MACHINE OPERATOR-MANAGER WEALTH MANAGEMENT Work Phone: [facility] Start: 04-29-2024 End: 04-29-2024 Patient encounter procedure Joann A Felter BUFFING MACHINE OPERATOR-MANAGER WEALTH MANAGEMENT Work Phone: [facility] Comment on above: Rash and other nonsp ecific skin eruption (Primary Dx) Start: 04-29-2024 End: 04-29-2024 ambulatory JOANN A FELTER Not Available Start: 04-29-2024 End: 04-29-2024 Bamboo flowsheet Joann A Felter BUFFING MACHINE OPERATOR-MANAGER WEALTH MANAGEMENT Work Phone: [facility] Start: 04-29-2024 End: 04-29-2024 Bamboo flowsheet Joann A Felter BUFFING MACHINE OPERATOR-MANAGER WEALTH MANAGEMENT Work Phone: [facility] Start: 03-16-2024 End: 03-16-2024 ambulatory ARIANE AICHHOLZ Not Available Start: 02-02-2024 End: 02-02-2024 ambulatory Rush Garcia MD Facility: [facility] Start: 01-15-2024 End: 01-15-2024 ambulatory ARIANE AICHHOLZ Not Available Start: 12-25-2023 End: 12-25-2023 ambulatory ARIANE AICHHOLZ Not Available Start: 11-27-2023 End: 11-27-2023 Emergency department patient visit Riky Le Facility:[facility] Start: 11-27-2023 End: 11-27-2023 Emergency department patient visit Riky Le [facility] Start: 12-14-2022 End: 12-15-2022 ambulatory MANAGER WEALTH MANAGEMENT ARIANE AICHHOLZ Facility:[facility] Start: 12-11-2022 End: 12-12-2022 ambulatory MANAGER WEALTH MANAGEMENT ARIANE AICHHOLZ Facility:[facility] Start: 11-15-2022 End: 11-15-[address] SKY DAVIS . Facility:[facility] Start: 11-10-2022 End: 11-10-[address] QUANG LANDA . Facility:[facility] Start: 08-18-2022 End: 08-18-2022 ambulatory GABINO CARROLL . Facility:[facility] Start: 07-09-2022 End: 07-09-[address] SKY DAVIS . Facility:[facility] Start: 05-14-2022 End: 05-14-2022 ambulatory MANAGER WEALTH MANAGEMENT ARIANE AICHHOLZ Facility:[facility] Start: 05-13-2022 Encounter for preprocedural laboratory examination DR ROBERTO APONTE [facility] Start: 05-08-2022 End: 05-09-[address] ROBERTO APONTE Facility:[facility] Start: 05-08-2022 End: 05-09-2022 Encounter for preprocedural laboratory examination DR ROBERTO APONTE Facility:[facility] Start: 04-18-2022 End: 04-18-2022 ambulatory MANAGER WEALTH MANAGEMENT ARIANE AICHHOLZ Facility:[facility] Start: 04-01-2022 End: 04-02-2022 ambulatory MANAGER WEALTH MANAGEMENT ARIANE AICHHOLZ Facility:[facility] Start: 02-06-2022 End: 02-07-2022 ambulatory MANAGER WEALTH MANAGEMENT ARIANE AICHHOLZ Facility:[facility] Start: 01-31-2022 End: 02-01-2022 ambulatory AMINATA BOURGEOIS Facility:[facility] Start: 01-24-2022 ambulatory MANAGER WEALTH MANAGEMENT ARIANE AICHHOLZ Facil ity:[facility] Start: 01-09-2022 End: 01-09-2022 ambulatory GABINO CARROLL . Facility:[facility] Procedures Date Procedure Procedure Detail Performing Clinician Start: 06-16-2024 IGP,APTIMA HPV,AGE GDLN Ariane Russell ENFORCEMENT MANAGER Work Phone: Start: 06-16-2024 Microscopic observation [Identifier] in Cervix by Cyto stain Ariane Wells ENFORCEMENT MANAGER Work Phone: Start: 05-30-2024 UPPER RESPIRATORY CULTURE Generic Space Officer al Data Provider Start: 04-29-2024 SKIN / NAIL BIOPSY Joann Owens BUFFING MACHINE OPERATOR-MANAGER WEALTH MANAGEMENT Work Phone: Start: 06-20-2020 Microscopic observation [Identifier] in Cervix by Cyto stain Joann Owens BUFFING MACHINE OPERATOR-MANAGER WEALTH MANAGEMENT Work Phone: Start: 12-04-2016 Colonoscopy Riky Le [...] 06-16-2027 Screening for malignant neoplasm of cervix [facility] Start: 01-06-2025 Urine screening for protein Diabetes: Urine Protein Screening [facility] Start: 08-10-2024 End: 08-10-2024 Patient encounter procedure 08/10/2024 3:40 PM EST Office Visit [facility] [address] [place] [id number] Joann Owens, BUFFING MACHINE OPERATOR-MANAGER WEALTH MANAGEMENT [address] [place] [address] [facility] Start: 07-26-2024 End: 07-26-2024 Patient encounter procedure 07/26/2024 5:00 PM EST Office Visit [facility] [address] [place] [address] Ariane Wells NP [address] [place] [address] [facility] Start: 06-16-2024 End: 06-16-2025 THINPREP IMAGING PAP AND HPV DNA REFLEX HPV 16,18 THINPREP IMAGING PAP AND HPV DNA REFLEX HPV 16,18 Pathology and Cytology Routine Encounter for well woman exam with routine gynecological exam Expected: 06/16/2024 (Approximate), Expires: 06/16/2025 [facility] Comment on above: Expected: 06/16/2024 (Approximate), Expi res: 06/16/2025 Start: 06-16-2024 End: 06-16-2025 VAGINITIS (HTRX) VAGINITIS (HTRX) Lab Routine Vaginal discharge Expected: 06/16/2024 (Approximate), Expires: 06/16/2025 [facility] Work Phone: Comment on [...] DERM [address] [place] [address] Joann Owens APRN-FORREST [address] [facility] [address] [place] [address] Granuloma annulare [facility] Comment on above: Granuloma annulare Start: 04-08-2024 Hemoglobin A1c measurement Diabetes: Hemoglobin A1C [facility] Start: 06-20-2023 Screening for malignant neoplasm of cervix [facility] Start: 2018 Screening for malignant neoplasm of cervix HPV/Cotest [facility] Start: 1998 Glaucoma screening Diabetes: Retinopathy Screening [facility] Cytology Cervical or vaginal smear or scraping study Pap smear Pathology and Cytology Routine Encounter for well woman exam with routine gynecological exam Ordered: 06/16/2024 [facility] Comment on above: Ordered: 06/16/2024 Dermatopathology exam Dermatopat hology exam Pathology and Cytology Timed Rash and other nonspecific skin eruption Release Upon Ordering for 1 Occurrences starting 04/29/2024 [facility] Work Phone: Comment on above: Release Upon Ordering for 1 Occurrences starting 04/29/2024 Immunizations Immunization Date Immunization Notes Care Provider Kelsey kenney 08-20-2021 Moderna SARS-CoV-2 Vaccination Joann Owens BUFFING MACHINE OPERATOR-MANAGER WEALTH MANAGEMENT Work Phone: [facility] Payers Date Payer Category Payer Medicaid [id number] 2023 Unknown 2022 Medicaid [id number] 2022 Medicaid [id number] 1988 Unknown [id number] 2.16.84 0.1.007620.3.579.2.593 1988 Unknown [id number] 2.16.84 0.1.264846.3.579.2.593 1988 Unknown [id number] 2.16.84 0.1.934095.3.579.2.593 1988 Unknown [id number] 2.16.84 0.1.360942.3.579.2.593 1988 Unknown [id number] 2.16.84 0.1.107536.3.579.2.593 1988 Unknown [id number] 2.16.84 0.1.406535.3.579.2.593 1988 Unknown [id number] 2.16.84 0.1.976041.3.579.2.593 1988 Unknown [id number] 2.16.84 0.1.458000.3.579.2.593 1988 Unknown [id number] 2.16.84 0.1.305528.3.579.2.593 1988 Unknown [id number] 2.16.84 0.1.351385.3.579.2.593 1988 Unknown [id number] 2.16.84 0.1.370081.3.579.2.593 1988 Unknown [id number] 2.16.84 0.1.648396.3.579.2.593 1988 Unknown [id number] 2.16.84 0.1.833290.3.579.2.593 1988 Unknown [id number] 2.16.8 40.1.555134.3.579.2.727 1988 Unknown [id number] 2.16. 840.1.153579.3.579.2.196 1988 Unknown [id number] 2.16.84 0.1.936486.3.579.2.1259 1988 Unknown [id number] 2.16.84 0.1.512604.3.579.2.1259 1988 Unknown [id number] 2.16.84 0.1.800191.3.579.2.1259 1988 Unknown [id number] 2.16.84 0.1.356647.3.579.2.1259 1988 Unknown [id number] 2.16.84 0.1.121425.3.579.2.1259 1988 Unknown [id number] 2.16.84 0.1.688304.3.579.2.1259 1959 Unknown [id number] 1959 Unknown [id number] Social History Date Type Detail Facility Start: 02-20-2022 Tobacco smoking status Heavy t obacco smoker (finding) [facility] Tobacco smoking status Never [facility] Start: 03-16-2024 End: 05-11-2024 Sex Assigned At Female Braulio Juarez [facility] Start: 12-25-2023 [facility] Start: 12-25-2023 [...] Equipment Origin al Text Equipment Identifier Dates [id number] Start: 01-28-2023 End: 03-16-2025 Functional Status Date Assessment Result Facility 11-27-2023 Functional Status N/A [facility] Clinical Notes 05-14-2022 to 06-16-2024 Ariane Wells [...] nursing note reviewed. Exam conducted with a computer numerical control grinder present. Constitutional: General: She is not in [...] for cervical cancer documented in this encounter [facility] 05-11-2024 History of Present illness Narrative Suture [...] Visit: 3 months documented in this encounter [facility] 04-29-2024 History of Present illness Narrative Images [...] skin eruption Right Lower Leg - Anterior [place] patches and plaques Biopsy today, see procedure [...] 14 days s/r documented in this encounter [facility] 11-27-2023 Hospital Discharge instructions Patient Education 11/27/2023 [...] to strengthen the arm. General instructions Take gfys-lne-hwbdqco and prescription medicines only as told by [...] provider. Document Revised: 05/03/2022 Document Reviewed: 05/03/2022 [employer] Patient Education 2022 [employer]. Follow Up Care 11/27/2023 12:54:30 With:Georgi Pfeiffer Address: [address] [place], [place] [id number] Business (1) When:11/30/2023 15:21:31 [facility] 11-27-2023 Evaluation + Plan note Extrac [...] Dosing XR Shoulder Complete Right [facility]04-17-2023 NotePROCEDURE: XR ANKLE RT MIN 3 [...] Electronically authenticated by: HAYDE VAN Date: 2022-12-16 07:21[facility]04-17-2023 NotePROCEDURE: XR KNEE RT 4V or > DATE: 12/14/2022 9:31 AM CDT COMPARISONS: None CLINICAL INDICATION: Pain of right knee joint FINDINGS: There is no evidence of fractures or other osseous abnormalities. No evidence of right knee joint effusion IMPRESSION: Right knee radiographs show no evidence of significant abnormalities. Electronically authenticated by: HAYDE VAN Date: 2022-12-16 07:17[facility]09-13-2022 NoteOPERATIVE NOTE OPERATION DATE: 05/14/2022 PRIMARY CARE [...] to the recovery room in good condition.[facility] Vitamin D deficiency- Primary Type 2 diabetes mellitus without complication, with long-term current use of insulin ([facility]) Class 3 severe obesity due to excess calories without serious comorbidity with body mass index (BMI) of 40.0 to 44.9 in adult ([facility]) Muscle spasm Spasm of muscle Muscle spasm- Primary Spasm of muscle Class 3 severe obesity due to excess calories without serious comorbidity with body mass index (BMI) of 40.0 to 44.9 in adult ([facility]) Type 2 diabetes mellitus without complication, with long-term current use of insulin ([facility]) Current tobacco use Granuloma annulare Other specified erythematous condition Granuloma annulare- Primary Other specified erythematous condition Bipolar disorder, unspecified ([facility]) Bipolar disorder, unspecified Type 2 diabetes mellitus without complication, with long-term current use of insulin ([facility]) Class 3 severe obesity due to excess calories without serious comorbidity with body mass index (BMI) of 40.0 to 44.9 in adult ([facility]) Encounter for well woman exam with routine gynecological exam- Primary Vaginal discharge Leukorrhea, not specified as infective Screening for cervical cancer Screening for malignant neoplasm of the cervix Class 3 severe obesity due to excess calories without serious comorbidity with body mass index (BMI) of 40.0 to 44.9 in adult ([facility]) Generalized anxiety disorder with panic attacks ([facility]) documented in this encounter [facility]* Diagnosis Vitamin D deficiency- Primary Type 2 diabetes mellitus without complication, with long-term current use of insulin ([facility]) Class 3 severe obesity due to excess calories without serious comorbidity with body mass index (BMI) of 40.0 to 44.9 in adult ([facility] Muscle spasm Spasm of muscle Muscle spasm- Primary Spasm of muscle Class 3 severe obesity due to excess calories without serious comorbidity with body mass index (BMI) of 40.0 to 44.9 in adult ([facility] Type 2 diabetes mellitus without complication, with long-term current use of insulin ([facility]) Current tobacco use Granuloma annulare Other specified erythematous condition Granuloma annulare- Primary Other specified erythematous condition Bipolar disorder, unspecified ([facility]) Bipolar disorder, unspecified Type 2 diabetes mellitus without complication, with long-term current use of insulin ([facility]) Class 3 severe obesity due to excess calories without serious comorbidity with body mass index (BMI) of 40.0 to 44.9 in adult ([facility]) Encounter for well woman exam with routine gynecological exam- Primary Vaginal discharge Leukorrhea, not specified as infective Screening for cervical cancer Screening for malignant neoplasm of the cervix Class 3 severe obesity due to excess calories without serious comorbidity with body mass index (BMI) of 40.0 to 44.9 in adult ([facility] Generalized anxiety disorder with panic attacks ([facility]) Yeast infection- Primary [facility] Diagnosis Rash and other nonspecific skin eruption- Primary [facility]* Diagnosis 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[facility]) Type II or unspecified type diabetes mellitus with other specified manifestations, not stated as uncontrolled [facility]* Diagnosis Candidiasis of vagina- Primary Candidiasis of vulva and vagina [facility] Narrative No data available for this section [facility] No data available for this [...] Referred To Contact Diagnoses 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[facility]) Joann Owens, BUFFING MACHINE OPERATOR-MANAGER WEALTH MANAGEMENT [address] [place] [address] Referral ID Status Reason Start Date Expiration Date V isits Requested Visits Authorized [id number] Pending Review 1 1 Additional Source Comments INFORMATION SOURCE (unrecogn ized section and content) DATE CREATED AUTHOR 12/19/2022 [facility] DATE CREATED AUTHOR AUTHOR'S ORGANIZ ATION 11/29/2023 [facility] DATE CREATED AUTHOR AUTHOR'S ORGANIZ ATION 02/13/2024 [facility] DATE CREATED AUTHOR AUTHOR'S ORGANIZ ATION 06/19/2024 [facility] d[facility] Specialists EPIC Patient Care team informatio n (unrecognized section and content) Transverse Abdominal Muscle Surgeon Relationship Specialty Start Date End Date Georges Shook MD [address] [place] [phone] PCP - General Family Medicine 02/19/23 Channing Freire MD [address] [place] [address] PCP - DELANEY Still [facility] 12/01/23 Transverse Abdominal Muscle Surgeon Relationship Specialty Start Date End Date Georges Shook MD [address] [place] [phone] PCP - General Family Medicine 02/19/23 Channing Freire MD [address] [place] [address] PCP - NOMJagjit Still [facility] 12/01/23 Transverse Abdominal Muscle Surgeon Relationship Specialty Start Date End Date Georges Shook MD [address] [place] [phone] PCP - General Family Medicine 02/19/23 Channing Freire MD [address] [place] [facility], [place] [address] (Fax) PCP - [facility] 12/01/23 Transverse Abdominal Muscle Surgeon Relationship Specialty Start Date End Date Georges Shook MD [address] [place] [address] PCP - General Family Medicine 02/19/23 Channing Freire MD [address] [place] [address] (Fax) PCP - [facility] 12/01/23 Transverse Abdominal Muscle Surgeon Relationship Specialty Start Date End Date Georges Shook MD [address] [place] [address] PCP - General Family Medicine 02/19/23 Channing Freire MD [address] [place] [address] (Fax) PCP - [facility] 12/01/23 Transverse Abdominal Muscle Surgeon Relationship Specialty Start Date End Date Georges Shook MD [address] [place] [address] PCP - General Family [facility] 02/19/23 Transverse Abdominal Muscle Surgeon Relationship Specialty Start Date End Date Georges Shook MD [address] [place] [address] PCP - General Family Medicine 02/19/23 Transverse Abdominal Muscle Surgeon Relationship Specialty Start Date End Date Georges Shook MD [address] [place] [address] PCP - General Family Medicine 02/19/23 Transverse Abdominal Muscle Surgeon Relationship Specialty Start Date End Date Georges Shook MD [address] [place] [address] PCP - General Family Medicine 02/19/23 Transverse Abdominal Muscle Surgeon Relationship Specialty Start Date End Date Georges Shook MD [address] [place] [address] PCP - General Family Medicine 02/19/23 Channing Freire MD [address] [place] [address] PCP - [facility] 12/01/23 Reason for Visit (unrecogniz ed section and content) Reason Comments Rash Specialty Diagnoses / Procedures Referred By Contac t Referred To Contact Dermatology Diagnoses Granuloma annulare Procedures [place] OFFICE/OUTPATIENT NEW HIGH MDM 60 MINUTES Ariane Wells, SHIV [address] [place] [address] Joann Owens, BUFFING MACHINE OPERATOR-MANAGER WEALTH MANAGEMENT [address] [facility] [address] [place] [address] Referral ID Status Reason Start Date Expiration Date V isits Requested Visits Authorized [id number] Closed Specialty Services Required 03/16/2024 09/12/2024 1 [...] BE BASED ON THE PRIMARY CLINICAL RECORDS. [facility] provides no warranty or guarantee of the accuracy or completeness of information in this document.
[2024-11-06] MEDS: ONDANSETRON PF 4 MG/2 ML VIAL IV (11:05)
[2024-11-06] MEDS: 0.9 % SODIUM CHLORIDE 1,000 ML 1000 ML IV (11:05)
[2024-11-06 11:08] LABS: Basophils Absolute Auto 0.1 10^3/uL (0.0-0.1); Basophils Percent Auto 0.6 % (0.2-2.0); Eosinophils Absolute Auto 0.1 10^3/uL (0.0-0.7); Eosinophils Percent Auto 1.5 % (0.9-7.0); Hematocrit 40.9 % (36.0-48.0); Hemoglobin 13.7 g/dL (12.0-16.0); Immature Granulocytes Abs Auto 0.03 10^3/uL (0.00-0.03); Immature Granulocytes Pct Auto 0.3 % (0.0-0.5); Lymphocytes Absolute Auto 2.5 10^3/uL (1.2-3.8); Lymphocytes Percent Auto 28.9 % (20.5-60.0); Mean Corpuscular HGB Conc 33.5 g/dL (29.9-35.2); Mean Corpuscular Hemoglobin 27.4 pg (26.7-34.0); Mean Corpuscular Volume 81.8 fL (81.0-99.0); Mean Platelet Volume 11.1 fL (9.5-13.5); Monocytes Absolute Auto 0.5 10^3/uL (0.3-0.8); Monocytes Percent Auto 6.2 % (1.7-12.0); Neutrophils Absolute Auto 5.5 10^3/uL (1.4-6.5); Neutrophils Percent Auto 62.5 % (43.0-75.0); Platelet Count 261 10^3/uL (150-450); Red Cell Distribution Width 13.1 % (11.0-15.0); White Blood Count 8.7 10^3/uL (4.0-11.0)
[2024-11-06 11:09] LABS: PCO2 VBG 33.3 mmHg (40.0-52.0); pH VBG 7.396 (7.330-7.430)
[2024-11-06 11:19] LABS: Acetone NEGATIVE (NEGATIVE); HCG Qualitative NEGATIVE (NEGATIVE); Internal Control Within Normal Limits
[2024-11-06 11:24] LABS: Alanine Aminotransferase 38 U/L (14-59); Albumin Globulin Ratio 0.9; Albumin Level 3.5 g/dL (3.4-5.0); Alkaline Phosphatase 80 U/L (46-116); Anion Gap 17.4; Aspartate Amino Transferase 17 U/L (15-37); BUN Creatinine Ratio 23.9; Bilirubin Direct 0.1 mg/dL (0.0-0.2); Bilirubin Total 0.4 mg/dL (0.2-1.0); Calcium 8.7 mg/dL (8.5-10.1); Chloride 101 mmol/L (98-107); Estimated GFR (African America >60 (>=60 mL/min/1.73m^2); Estimated GFR (Non-African Ame >60 (>=60 mL/min/1.73m^2); Globulin 3.8 g/dL; Glucose 269 mg/dL (74-106); Potassium 4.4 mmol/L (3.5-5.1); Sodium 136 mmol/L (136-145); Total Protein 7.3 g/dL (6.4-8.2)
[2024-11-06 11:26] LABS: Troponin I High Sensitivity <4.0 pg/mL (4.0-51.3)
== END 2024-11-06 12:30 | disposition home or self-care (01) ==
PROVIDERS: Emergency Provider Emergency Medicine; PCP Nurse Practitioner
DX: R10.13 Epigastric pain (principal); E11.65 Type 2 diabetes mellitus with hyperglycemia; F17.290 Nicotine dependence, other tobacco product, uncomplicated; Z79.4 Long term (current) use of insulin; Z79.84 Long term (current) use of oral hypoglycemic drugs
CPT/HCPCS: 36415; 80048; 80076; 82009; 82800; 83690; 84484; 84703; 85025; 93005; 96374; 99285; J2405

== ENCOUNTER 2025-01-31 07:47 | Emergency (ER) | payer SELFPAY ==
[2025-01-31 07:53] VITALS: BP 141/85; PULSE 76; TEMP 36.9; O2SAT 97; BMI 39.9
--- OUTSIDE RECORDS SUMMARY | 2025-01-31 07:55 | XMS_ITS | Encounter Summary ---
Author Organization [facility] Address [address] [place] [address] Care Team Providers Care Reports Developer Name Role Phone Georges Shook MD Primary Care Provider [phone] Channing Freire MD Unavailable [phone] Encounter Details Date Type Department Care Team (Late st Contact Info) Description 09/11/2023 Orders Only [facility] [address] [place] [place] [address] Tomy Crisostomo MD [address] [place] [address] Social History Tobacco Use Types Packs/Day Years Used Date Smoking Tobacco: Never Assessed Comments Unknown Sex and Gender Information Value Date Recorded Sex Assigned at Not on file Legal Sex Female 9:50 PM EDT Gender Identity Not on file Sexual Orientation Not on file documented as of this encounter Plan of Treatment Not on file documented as of this encounter Procedures Procedure Name Priority Date/Time Associated Diagnosis Comments XR CHEST 2 VIEWS Routine 09/05/2023 10:59 AM EST documented in this encounter Results * XR chest 2 views (09/05/2023 10:59 AM EST) Anatomical Region Laterality Modality Chest Radiographic Rae ging Tomy Crisostomo MD IMG XR PROCEDURES Final Result documented in this encounter Visit Diagnoses Not on filedocumented in this encounter Care Teams Reports Developer Relationship Specialty Start Date End Date Georges Shook MD [address] [place] [address] PCP - General Family Medicine 02/19/23 Channing Freire MD [address] [address] PCP - [facility] STAGE PRODUCER 12/01/23 documented as of this encounter
--- OUTSIDE RECORDS SUMMARY | 2025-01-31 07:55 | XMS_ITS | Encounter Summary ---
Author Organization [facility] Address [address] [place] [address] Care Team Providers Care Pit Crane Operator Name Role Phone Georges Shook MD Primary Care Provider [phone] Channing Freire MD Unavailable [phone] Encounter Details Date Type Department Care Team (Late st Contact Info) Description 02/25/2024 Clinisync Result Encounter [facility] External Department Unsolicited Provider, Generic External Data Social History Tobacco Use Types Packs/Day Years Used Date Smoking Tobacco: Every Day Smokeless Tobacco: Never Alcohol Use Standard Drinks/Week Comments Not Currently 0 (1 standard drink = 0.6 oz pure alcohol) caffine: coffee: 20oz and soda: 1.5L bottle daily PHQ-2 Answer Date Recorded Patient Health Questionnaire-2 Score 0 01/15/2024 Comments Unknown Sex and Gender Information Value Date Recorded Sex Assigned at Not on file Legal Sex Female 9:50 PM EDT Gender Identity Not on file Sexual Orientation Not on file documented as of this encounter Plan of Treatment Not on file documented as of this encounter Procedures Procedure Name Priority Date/Time Associated Diagnosis Comments MR CERVICAL SPINE WO CONTRAST 02/25/2024 12:07 AM EDT documented in this encounter Results * MR cervical spine wo contrast (02/25/2024 12:07 AM EDT) Anatomical Region Laterality Modality Spine, C-spine Magnetic Resonan ce 02/25/2024 12:0 7 AM EDT Narrative 02/25/2024 12:09 [place] [address] Magnetic Resonance Report Signed Patient: MARILIA VERA MR#: [id number] : 1990 Acct:[id number] Age/Sex: 33 / F ADM Date: 02/24/24 Loc: MRI Attending Dr: Rush Garcia M.D. Ordering Physician: Rush Garcia M.D. Date of Service: 02/24/24 Procedure(s): MR cervical spine wo con Accession Number(s): [id number] cc: Ariane Wells NP; Rush Garcia M.D. [facility] [place] [id number] Patient Name: MARILIA VERA MRN: [id number] date: 1990 Sex: F Assigned Patient Location: MRI Current Patient Location: Accession/Order Number: [id number] Exam Date: 02/24/2024 15:40 Report Date: 02/25/2024 00:07 At the request of: RUSH GARCIA Procedure: MR cervical spine wo con EXAM: MR cervical spine wo con HISTORY: Cervical Radiculopathy COMPARISON: None. TECHNIQUE: Sagittal T1, T2, STIR, axial T2, and T2 gradient echo images of the cervical spine were obtained. FINDINGS: The vertebral body heights are preserved. There is mild reversal of the normal cervical lordosis, centered at C3-4 level. No significant disc space narrowing is seen. There is no subluxation identified. The bone marrow signal intensity appears normal. The craniovertebral junction appears grossly within normal limits. The signal intensity of the cervical spinal cord appears grossly within normal limits. There are multilevel mild marginal spurring. At C3-4 level, there is a small left foraminal disc protrusion and mild left-sided uncovertebral joint hypertrophy, resulting in mild left neural foraminal narrowing. No spinal canal stenosis. At C4-5 level, there is left paracentral/foraminal disc protrusion and uncovertebral osteophyte. No spinal canal stenosis. Moderate left neural foraminal narrowing is identified. No significant disc protrusion, spinal canal stenosis, or foraminal narrowing is seen at other levels. MR/MR cervical spine wo con IMPRESSION: Left paracentral /foraminal disc protrusion and uncovertebral osteophyte at the C4-5 level, causing moderate left neural foraminal narrowing. Small left foraminal disc protrusion and mild uncovertebral osteophyte at C3-4 level, resulting in mild left neural foraminal narrowing. No neural foraminal narrowing at other levels. No spinal canal stenosis at any level. Mild reversal of the normal cervical lordosis, centered at C3-4 level Electronically authenticated by: CORNELIA POSADA Date: 02/25/2024 00:07 Dictated By: CORNELIA POSADA M.D. Signed By: 02/25/248 DD/ TD/TT: Tongue And Quarter Stitcher: Procedure Note Radiology, Radiologist, MD - 02/25/2024 [place] [address] Magnetic Resonance Report Signed Patient: MARILIA VERA LMR#: [id number] : 1990Acct:[id number] Age/Sex: 33 / FADM Date: 02/24/24 Loc: MRI Attending Dr: Rush Garcia M.D. Ordering Physician: Rush Garcia M.D. Date of Service: 02/24/24 Procedure(s): MR cervical spine wo con Accession Number(s): [id number] cc: Ariane Wells ALMOND HULLER; Rush Garcia M.D. [facility] [place] [address] Patient Name: MARILIA VERA MRN: [id number] date: 1990 Sex: F Assigned Patient Location: MRI Current Patient Location: Accession/Order Number: [id number] Exam Date: 02/24/2024 15:40 Report Date: 02/25/2024 00:07 At the request of: RUSH GARCIA Procedure: MR cervical spine wo con EXAM: MR cervical spine wo con HISTORY: Cervical Radiculopathy COMPARISON: None. TECHNIQUE: Sagittal T1, T2, STIR, axial T2, and T2 gradient echo images ofthe cervical spine were obtained. FINDINGS: The vertebral body heights are preserved. There is mild reversal of thenormal cervical lordosis, centered at C3-4 level. No significant disc spacenarrowing is seen. There is no subluxation identified. The bone marrow signal intensity appears normal. The craniovertebraljunction appears grossly within normal limits. The signal intensity of the cervical spinal cord appears grossly withinnormal limits. There are multilevel mild marginal spurring. At C3-4 level, there is a small left foraminal disc protrusion and mild left-sided uncovertebral joint hypertrophy, resulting in mild left neural foraminal narrowing. No spinal canal stenosis. At C4-5 level, there is left paracentral/foraminal disc protrusion and uncovertebral osteophyte. No spinal canal stenosis. Moderate left neural foraminal narrowing is identified. No significant disc protrusion, spinal canal stenosis, or foraminalnarrowing is seen at other levels. MR/MR cervical spine wo con IMPRESSION: Left paracentral /foraminal disc protrusion and uncovertebral osteophyteat the C4-5 level, causing moderate left neural foraminal narrowing. Small left foraminal disc protrusion and mild uncovertebral osteophyte at C3-4 level, resulting in mild left neural foraminal narrowing. No neural foraminal narrowing at other levels. No spinal canal stenosis at any level. Mild reversal of the normal cervical lordosis, centered at C3-4 level Electronically authenticated by: CORNELIA POSADA Date: 02/25/2024 00:07 Dictated By: CORNELIA POSADA M.D. Signed By:02/25/24 000 DD/ TD/TT: Tongue And Quarter Stitcher: us Generic External Data Provider IMG MRI PROCEDURE S Final Result documented in this encounter Visit Diagnoses Not on filedocumented in this encounter Additional Health Concerns Assessment Noted Time PHQ-9 Depression Total Score: 8 12/25/19 24 1:28 PM EDT documented as of this encounter Care Teams Pit Crane Operator Relationship Specialty Start Date End Date Georges Shook MD [address] [place] [address] PCP - General Family Medicine 02/19/23 Channing Freire MD [address] [place] [address] PCP - DELANEY Still MICA LAMINATING MACHINE FEEDER 12/01/23 documented as of this encounter
--- OUTSIDE RECORDS SUMMARY | 2025-01-31 07:56 | XMS_ITS | Encounter Summary ---
Author Organization [facility] Address [address] [place] [address] Care Team Providers Care Net Mender Name Role Phone Georges Shook MD Primary Care Provider [phone] Channing Freire MD Unavailable [phone] Encounter Details Date Type Department Care Team (Late st Contact Info) Description 11/28/2023 Orders Only [facility] [address] [place] [address] Ariane Wells NP [address] [facility] [place] [address] Social History Tobacco Use Types Packs/Day Years [...] Name Priority Date/Time Associated Diagnosis Comments XR SHOULDER 1 VIEW RIGHT Routine 11/28/2023 7:01 AM EDT documented in this encounter Results * XR shoulder 1 view right (11/28/2023 7:01 AM EDT) Anatomical Region Laterality Modality Upper Extremities, Shoulder Right Radi ographic Imaging us Ariane Wells NP IMG XR PROCEDURES Final Result documented in this encounter Visit Diagnoses Not on filedocumented in this encounter Care Teams Net Mender Relationship Specialty Start Date End Date Georges Shook MD [address] [place] [address] PCP - General Family Medicine 02/19/23 Channing Freire MD [address] [address] PCP - [facility] MANAGER CCU 12/01/23 documented as of this encounter
--- OUTSIDE RECORDS SUMMARY | 2025-01-31 07:56 | XMS_ITS | Encounter Summary ---
Author Organization [facility] Address [address] [place] [address] Care Team Providers Care Garde Manger Name Role Phone Georges Shook MD Primary Care Provider [phone] Channing Freire MD Unavailable [phone] Encounter Details Date Type Department Care Team (Late st Contact Info) Description 09/04/2023 Orders Only [facility] [address] [place] [address] Ariane Wells, SHIV [address] [place] [address] Social History Tobacco Use Types Packs/Day Years [...] Priority Date/Time Associated Diagnosis Comments XR CHEST 1 VIEW Routine 09/01/2023 1:13 PM EST documented in this encounter Results * XR chest 1 view (09/01/2023 1:13 PM EST) Anatomical Region Laterality Modality Chest Radiographic Rae ging us Ariane Wells NP IMG XR PROCEDURES Final Result documented in this encounter Visit Diagnoses Not on filedocumented in this encounter Care Teams Garde Manger Relationship Specialty Start Date End Date Georges Shook MD [address] [place] [address] PCP - General Family Medicine 02/19/23 Channing Freire MD [address] [facility] [address] [place] [address] PCP - [facility] GYM TEACHER 12/01/23 documented as of this encounter
--- OUTSIDE RECORDS SUMMARY | 2025-01-31 07:56 | XMS_ITS | Clinical Summary ---
Author Organization [facility] Address [address] [place] [address] Care Team Providers Care Automatic Wheel Line Operator Name Role Phone Georges Shook MD Primary Care Provider [phone] Channing Freire MD Unavailable [phone] Allergies Active Allergy Reactions Criticality Noted Date Comments Prednisone High 12/25/2023 Medications traZODone (Desyrel) 50 MG tablet Take 100 mg by mouth at bedtime Active spironolactone (Aldactone) 50 MG tablet Take 50 mg by mouth Daily Active pravastatin (Pravachol) 20 MG tablet Take 20 mg by mouth in the evening 3 Active metFORMIN XR (Glucophage-XR) 500 MG 24 hr tablet Take 1,000 mg by mouth in the morning and 1,000 mg before bedtime. Active pantoprazole (ProtoNix) 40 MG EC tablet Take 40 mg by mouth Daily as needed (GERD) Active magnesium 250 MG tablet 1 (one) time each day at the same time Active HumuLIN R U-500 KWIKPEN 500 UNIT/ML CONCENTRATED injection INJECT 80 UNITS TWICE A DAY PLUS ISS 15>150 (EXPECT DAILY DOSE 225 UNITS) 4 Active insulin lispro (HumaLOG KWIKPEN) 100 UNIT/ML injection as directed Subcutaneous Active OneTouch Ultra test strip USE ONE BEFORE EACH MEAL AND AT BEDTIME 3 Active FLUoxetine (PROzac) 40 MG capsule Take 40 mg by mouth Daily Active FLUoxetine (PROzac) 20 MG capsule Take 20 mg by mouth Daily 3 Active Jardiance 25 MG Take 25 mg by mouth Daily Active Continuous Glucose Sensor (FreeStyle Ksenia 2 Sensor) misc CHANGE SENSOR EVERY 14 DAYS 3 Active ARIPiprazole (Abilify) 15 MG tablet Take 15 mg by mouth Daily 3 Active albuterol HFA 90 mcg/act inhaler Inhale 2 puffs every 6 (six) hours if needed for shortness of breath or wheezing Active cyclobenzaprine (Flexeril) 10 MG tabletIndication s:Muscle spasm Take 1 tablet (10 mg) by mouth every 12 (twelve) hours if needed for muscle spasms for up to 15 days May take 1/2-1 pill every 12 hours 30 tablet 4 Active clobetasol (Temovate) 0.05 % creamIndications :Granuloma annulare Apply topically Daily Apply to affected area once a day for up to 8 weeks. No use on face 45 g 4 Active gabapentin (Neurontin) 100 MG capsule Take 100 mg by mouth in the morning and 100 mg in the evening and 100 mg before bedtime. 4 Active tiZANidine (Zanaflex) 4 MG tablet Take 4 mg by mouth 4 Active glucose blood test stripIndications :Type 2 diabetes mellitus without complication, with long-term current use of insulin Twice a day, Use as instructed 200 each 4 4 025 Active betamethasone dipropionate (Diprolene) 0.05 % ointmentIndicati ons: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CMS/HCC) Apply to affected areas, up to twice a day when flared, do not use one the face, groin, or underarms, 30 day supply 45 g 3 4 Active betamethasone valerate (Valisone) 0.1 % creamIndications :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CMS/HCC) Apply to affected areas, up to twice a day when flared, do not use one the face, groin, or underarms, 30 day supply 45 g 3 4 Active busPIRone (Buspar) 10 MG tabletIndication s:Generalized anxiety disorder with panic attacks (CMS/HCC) Take 1 tablet (10 mg) by mouth in the morning and 1 tablet (10 mg) in the evening and 1 tablet (10 mg) before bedtime. 90 tablet 2 4 Active fluconazole (Diflucan) 150 MG tabletIndication s:Yeast infection Take one dose every 3 days for 3 doses 3 tablet Active Cholecalciferol 125 MCG (5000 UT) chewable tablet Chew Active Active Problems Problem Noted Date Diagnosed Date Yeast infection 06/23/2024 Vaginal discharge 06/16/2024 Overview (06/16/2024): [employer] [id number] EXP 08/31/24 Lot #[id number] Assessment & Plan (06/16/2024 5:57 PM EDT): [employer] trax vaginitis exam Encounter for well woman excl m with routine gynecological exam 06/16/2024 Assessment & Plan (06/16/2024 5:57 PM EDT): Thin prep Fu as per PAP indications Generalized anxiety disorder with panic attacks 06/16/2024 Assessment & Plan (06/16/2024 6:00 PM EDT): Worsening anxiety while in the car Will try increasing buspar 10mg TID Fu in 6 weeks Candidiasis of vagina 05/26/2024 Type 2 diabetes mellitus wit hout complication, with long-term current use of insulin 03/16/2024 Assessment & Plan (03/16/2024 1:22 PM EDT): Has left several messages to get an appt with marija, and is not betting a call back Check blood sugars daily, notify if <70 or >200. Take medications (pills or insulin) as directed. Monitor for s/s of hypoglycemia (sweaty, dizziness, nausea, vomiting, or shakiness). Watch for increase in thirst, urination, or appetite. Inspect feet frequently monitoring for open wounds , and also recommend yearly eye exam. Pt should attempt to remain as physically active as chronic conditions allow, as well as trying to follow a diet low in carbohydrates, and simple sugars. Needs refill of test strips as well Granuloma annulare 01/15/2024 Assessment & Plan (03/16/2024 1:22 PM EDT): No help with steroid cream Will refer to derm Acquired deformity of right ankle 12/25/2023 ADHD 12/25/2023 Bipolar disorder 12/25/2023 Depression 12/25/2023 BMI 45.0-49.9, adult 12/25/2023 Class 3 severe obesity due t o excess calories with body mass index (BMI) of 40.0 to 44.9 in adult 12/25/2023 Conductive hearing loss, bilateral 12/25/2023 Current tobacco use 12/25/2023 DDD (degenerative disc disease), lumbar 12/25/19 Dysfunction of both eustachian tubes 12/25/2023 Female infertility 12/25/2023 Insomnia 12/25/2023 BRENT (obstructive sleep apnea) 12/25/2023 Osteochondral defect of talus 12/25/2023 PCOS (polycystic ovarian syndrome) 12/25/2023 Umbilical hernia 12/25/2023 Vitamin D deficiency 12/25/2023 Muscle spasm 12/25/2023 Assessment & Plan (01/15/2024 3:11 PM EDT): Refaxed to [facility] Pain Mgmt Assessment & Plan (12/25/2023 2:24 PM EDT): Try muscle relaxer, will refer to pain mgmt [facility] Fu in 3 weeks Resolved Problems Problem Noted Date Diagnosed Date Resolved Date Foreign body granuloma of so ft tissue, not elsewhere classified, unspecified ankle and foot 01/15/2024 01/15/2024 Diabetes 12/25/2023 03/16/2024 Assessment & Plan (01/15/2024 3:10 PM EDT): Reviewed A1c level, needs to get an appt with Marija Assessment & Plan (12/25/2023 2:25 PM EDT): Has not been to see Endo for several months Immunizations Immunization Administration Dates Next Due Moderna SARS-CoV-2 Vaccination 08/20/2021 Family History Medical History Relation Name Comments Diabetes Father Breast cancer Maternal Grandmother Hypertension Mother Relation Name Status Comments Brother 2 Alive Father Half-Brother 2 Alive Half-Sister 2 Alive Maternal Grandmother Mother Alive Son 1 Alive Social History Tobacco Use Types Packs/Day Years Used Date Smoking Tobacco: Every Day Smokeless Tobacco: Never Tobacco Cessation:Ready to Q uit: Not Asked; Counseling Given: Not Answered Alcohol Use Standard Drinks/Week Comments Not Currently 0 (1 standard drink = 0.6 oz pure alcohol) caffine: coffee: 20oz and soda: 1.5L bottle daily PHQ-2 Answer Date Recorded Patient Health Questionnaire-2 Score 2 03/16/2024 Comments Unknown Sex and Gender Information Value Date Recorded Sex Assigned at Not on file Legal Sex Female 9:50 PM EDT Gender Identity Not on file Sexual Orientation Not on file Last Filed Vital Signs Vital Sign Reading Time Taken Comments Blood Pressure 110/80 06/16/2024 5:05 PM EDT Pulse 81 06/16/2024 5:05 PM EDT Temperature 37.1 C (98.8 F) 06/16/2024 5:05 PM EDT Respiratory Rate 18 06/16/2024 5:05 PM EDT Oxygen Saturation 98% 06/16/2024 5:05 PM EDT Inhaled Oxygen Concentration - - Weight 112 kg (246 lb 6.4 oz) 06/16/2024 5:05 PM EDT Height 160 cm (5' 3 ) 06/16/2024 5:05 PM EDT Body Mass Index 43.65 06/16/2024 5:05 PM EDT Plan of Treatment Health Maintenance Due Date Last Done Comments Diabetes: Retinopathy Screening 1998 HPV/Cotest 2018 Diabetes: Hemoglobin A1C 04/08/2024 01/07/2024 Diabetes: Urine Protein Screening 01/06/2025 024 Cervical Cancer Screening 06/16/2027 Pap Smear 06/16/2027 06/16/2024, 06/20/2020 Influenza Vaccine Discontinued Insurance [employer] [place]ICA[place] Care Teams Automatic Wheel Line Operator Relationship Specialty Start Date End Date Georges Shook MD [address] [place] [address] PCP - General Family Medicine 02/19/23 Channing Freire MD [address] [place] [address] PCP - [facility] WEB DESIGN INTERN 12/01/23
--- OUTSIDE RECORDS SUMMARY | 2025-01-31 07:56 | XMS_ITS | Patient Health Record ---
Author Organization [facility] [email or web address] es Address [address] [place] [address] Care Team Providers Care Barge Hand Name Role Phone Dr. Raymond Macario Primary Care Provider Reason For Referral No Information Medications Medication SIG (Take, Route, Fr equency, Duration) Notes Start Date End Date Status Ibuprofen 800 MG 1 tablet with food o r milk as needed Orally Three times a day 09/13/2021 Active Ibuprofen 800 MG 1 tablet with food o r milk as needed Orally Three times a day 09/26/2021 Active Plan Of Treatment No Information Insurance Providers Payer Name Payer Address Payer Phone Subscriber Number Group Number Insured Name Patient Relationship to Insured Coverage Start Date Coverage End Date z[employer]OUN T ADVANTAGE -termed 22 [address] [place] [address] [id number] OSBORNE, MARILIA Self - patient is the insured 2 zMEDICAID CFC after [place] -termed 22 [address] [place] [address] [phone] [id number] [place] Self - patient is the insured 2 zDENTAL DQ [employer] -termed 22 [address] [place] [phone] [id number] OSBORNE, MARILIA Self - patient is the insured 2 zDental MEDICAID CFC after [employer] -termed 22 [address] [place] [address] [id number] MARILIA OSBORNE Self - patient is the insured 2 Dental [place] DQ [address] [place] [address] [id number] MARILIA OSBORNE Self - patient is the insured 3 Dental Wrap [facility] [place] BCBS [address] [place] [address] [id number] MARILIA OSBORNE Self - patient is the insured 3
[2025-01-31 07:57] VITALS: O2SAT 97
[2025-01-31] MEDS: OXYMETAZOLINE HCL 0.05% NASAL SPRAY 2 SPRAY NS (08:16)
--- NOTE | 2025-01-31 09:19 | ED.EPISTAXI1 ---
HPI - Epistaxis General Chief Complaint: Epistaxis Stated Complaint: NOSE BLEED CLOTS Time Seen by Provider: 01/31/25 07:55 Source: patient Mode of arrival: walk-in Limitations: no limitations History of Present Illness HPI Narrative: The patient is a 34-year-old female is coming to the ER after she had a episode of epistaxis that lasted at least for 20 minutes before arrival, that she was not bleeding all of a sudden but recently she has been having for the last 2 days some nasal congestion, some cough and there is no fever chills or any other complaint No exposure to anybody with similar symptoms the patient does not take any anticoagulation She denies any trauma to the nose or the head Related Data Home Medications ?Medication ?Instructions ?Recorded ?Confirmed aripiprazole 10 mg tablet 10 mg PO QDAY 02/04/23 02/17/24 buspirone 10 mg tablet 10 mg PO BID 02/04/23 02/17/24 calcium carbonate (Calcium 600) 600 mg PO DAILY 02/04/23 02/17/24 calcium phosphate,dibasic 77 1 tab PO QDAY 02/04/23 02/17/24 mg-vitamin D3 400 unit tablet fluoxetine 40 mg capsule 40 mg PO QDAY 02/04/23 02/17/24 insulin regular hum U-500 conc 500 60 unit subcut TID 02/04/23 02/17/24 unit/mL(3 mL) subcut pen (Humulin R U-500 (Conc) Insulin Kwikpen) magnesium 250 mg tablet 250 mg PO DAILY 02/04/23 02/17/24 pantoprazole 40 mg tablet,delayed 40 mg PO Q12H PRN indigestion 02/04/23 02/17/24 release spironolactone 50 mg tablet 50 mg PO QDAY 02/04/23 02/17/24 trazodone 50 mg tablet 50 mg PO DAILY 02/04/23 02/17/24 cholecalciferol (vitamin D3) 50 2,000 unit PO DAILY 02/02/24 02/17/24 mcg (2,000 unit) tablet (Vitamin D3) empagliflozin 25 mg tablet 25 mg PO DAILY 02/02/24 02/17/24 (Jardiance) gabapentin 100 mg capsule 100 mg PO TID 02/02/24 02/17/24 metformin 500 mg tablet 500 mg PO BID 02/02/24 02/17/24 Previous Rx's ?Medication ?Instructions ?Recorded amoxicillin 500 mg capsule 500 mg PO TID 10 days #30 caps 05/30/24 loratadine 5 mg-pseudoephedrine ER 1 tab PO Q12H PRN nasal congestion 05/30/24 120 mg tablet,extended #20 tabs release,12hr (Claritin-D 12 Hour) vklwgksdujfrlwx-jqyrrvwjajovsvz-GT 10 ml PO Q6H PRN cold symptoms 06/03/24 2 mg-30 mg-10 mg/5 mL oral syrup #200 mL (Bromfed DM) ondansetron 4 mg disintegrating 4 mg PO Q6H PRN nausea and 06/03/24 tablet vomiting #12 tabs famotidine 20 mg tablet (Pepcid) 20 mg PO BID 4 weeks #56 tabs 11/06/24 metformin 500 mg tablet,extended 500 mg PO DAILY #30 tabs 11/06/24 release 24 hr guaifenesin 600 mg tablet, 600 mg PO BID PRN congestion #10 01/31/25 extended release 12 hr (Mucinex) tabs oxymetazoline 0.05 % nasal mist 2 spray intranasal BID PRN 01/31/25 (Afrin (oxymetazoline)) epistaxin and congestion 3 days #15 mL Allergies Allergy/AdvReac Type Severity Reaction Status Date / Time prednisone AdvReac Severe hyperglycem Verified 11/06/24 10:33 ia Review of Systems ROS Status of ROS 10 or more systems reviewed and unremarkable except as noted in history and below [facility] [place] Social History Smoking status: Current every day smoker Little interest or pleasure in doing things: not at all Feeling down, depressed, or hopeless: not at all Exam Narrative Exam Narrative: Nurses notes and vital signs reviewed and patient is not hypoxic. General: Well-appearing and in no apparent distress. Skin: Warm, dry, no pallor noted. No rash. Head: Normocephalic, atraumatic. Neck: Supple, non-tender. Eye: Pupils are equal, round and EOMI. No scleral icterus. Ears, Nose, Mouth, and Throat: There is no signs of active bleeding the patient had no bleeding at the posterior pharynx and there is a small clot in the left posterior aspect of the nostril on the left side Cardiovascular: Regular Rate and Rhythm without murmur, gallop or rub. Respiratory: No accessory muscle use or respiratory distress. Lungs are clear to auscultation, no wheezing, rales or rhonchi Chest Wall: no tenderness Back: No midline thoracic or lumbar vertebral tenderness. No CVA tenderness Musculoskeletal: normal ROM, no calf or popliteal tenderness, no lower extremity edema/swelling GI: Abdomen is soft, non-distended. Normal bowel sounds. No masses appreciated. No tenderness to palpation. No rebound, guarding, or rigidity noted. Neurological: A&O x4. No cranial nerve dysfunction observed. No truncal ataxia. Moves all extremities. Sensation intact. Psychiatric: Cooperative and interactive. Normal mood and affect. Constitutional Vital Signs, click to edit/add: Last Vital Signs Temp 98.5 F 01/31/25 07:53 Pulse 76 01/31/25 07:53 Resp 18 01/31/25 07:53 BP 141/85 01/31/25 07:53 Pulse Ox 97 01/31/25 07:57 O2 Del Method Room Air 01/31/25 07:57 Course Vital Signs Vital signs: Vital Signs Temperature 98.5 F 01/31/25 07:53 Pulse Rate 76 01/31/25 07:53 Respiratory Rate 18 01/31/25 07:53 Blood Pressure 141/85 01/31/25 07:53 Pulse Oximetry 97 01/31/25 07:53 Oxygen Delivery Method Room Air 01/31/25 07:53 Temperature 98.5 F 01/31/25 07:53 Pulse Rate 76 01/31/25 07:53 Respiratory Rate 18 01/31/25 07:53 Blood Pressure 141/85 01/31/25 07:53 Pulse Oximetry 97 01/31/25 07:57 Oxygen Delivery Method Room Air 01/31/25 07:57 MDM - Epistaxis MDM Narrative Medical decision making narrative: The patient bleeding was controlled by the time she come to the ER and she was provided with Afrin for supportive care in addition to Mucinex Patient provided with a work excuse for the next 2 days to avoid exposure to chemicals 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 The patient agrees with the following Diagnosis and Treatment plan and the patient will be discharged home. Discharge Plan Discharge Chief Complaint: Epistaxis Clinical Impression: Epistaxis Patient Disposition: Home, Self-Care Time of Disposition Decision: 08:04 Condition: Good Prescriptions / Home Meds: New guaifenesin [Mucinex] 600 mg tablet extended release 12hr 600 mg PO BID PRN (Reason: congestion) Qty: 10 0RF Afrin (oxymetazoline) 0.05 % mist 2 spray intranasal BID PRN (Reason: epistaxin and congestion ) 3 Days Qty: 15 0RF No Action aripiprazole 10 mg tablet 10 mg PO QDAY buspirone 10 mg tablet 10 mg PO BID trazodone 50 mg tablet 50 mg PO DAILY fluoxetine 40 mg capsule 40 mg PO QDAY spironolactone 50 mg tablet 50 mg PO QDAY calcium phos,dibas-vitamin D3 77-400 mg-unit tablet 1 tab PO QDAY pantoprazole 40 mg tablet,delayed release (DR/EC) 40 mg PO Q12H PRN (Reason: indigestion) magnesium 250 mg tablet 250 mg PO DAILY calcium carbonate [Calcium 600] 600 mg calcium (1,500 mg) tablet 600 mg PO DAILY Humulin R U-500 (Conc) Kwikpen 500 unit/mL (3 mL) insulin pen 60 unit SUBCUT TID Rx Instructions: with sliding scale Jardiance 25 mg tablet 25 mg PO DAILY metformin 500 mg tablet 500 mg PO BID cholecalciferol (vitamin D3) [Vitamin D3] 50 mcg (2,000 unit) tablet 2,000 unit PO DAILY gabapentin 100 mg capsule 100 mg PO TID amoxicillin 500 mg capsule 500 mg PO TID 10 Days Qty: 30 0RF Claritin-D 12 Hour 5-120 mg tablet extended release 12 hr 1 tab PO Q12H PRN (Reason: nasal congestion) Qty: 20 0RF neyupchmujmqbwv-bxzngefbu-TO [Bromfed DM] 2-30-10 mg/5 mL syrup 10 ml PO Q6H PRN (Reason: cold symptoms) Qty: 200 0RF ondansetron 4 mg tablet,disintegrating 4 mg PO Q6H PRN (Reason: nausea and vomiting) Qty: 12 0RF metformin 500 mg tablet extended release 24 hr 500 mg PO DAILY Qty: 30 0RF famotidine [Pepcid] 20 mg tablet 20 mg PO BID 28 Days Qty: 56 0RF Print Language: Danish Instructions: Nosebleed (ED) Referrals: Ariane Wells NP [Primary Care Provider, Family Practice] - 1 week Discharge Date/Time: 01/31/25 08:18
== END 2025-01-31 08:18 | disposition home or self-care (01) ==
PROVIDERS: Emergency Provider Emergency Medicine; PCP Nurse Practitioner
DX: R04.0 Epistaxis (principal); F17.200 Nicotine dependence, unspecified, uncomplicated
CPT/HCPCS: 99283

== ENCOUNTER 2025-04-13 11:16 | Emergency (ER) | payer MEDICAID, SELFPAY ==
[2025-04-13 11:22] VITALS: BP 115/90; PULSE 72; TEMP 36.6; O2SAT 98; BMI 40.7
--- OUTSIDE RECORDS SUMMARY | 2025-04-13 11:28 | XMS_ITS | CCD ---
Author Organization [facility] Care Team Providers Care Regional Medical Director Name Role Phone AICHHOLZ, PARTY PLAN DEALER ARIANE Attending Unavailable AICHHOLZ, PARTY PLAN DEALER ARIANE Admitting Unavailable AICHHOLZ, PARTY PLAN DEALER ARIANE Primary Care Unavailable JOSE EDUARDO RIVERS V Consulting Unavailable AICHHOLZ, PARTY PLAN DEALER ARIANE Consulting Unavailable TIMMIS, DR MEJIA Consulting Unavailable AICHHOLZ, PARTY PLAN DEALER ARIANE Primary Care Unavailable TIMMIS, DR MEJIA Attending Unavailable TIMMIS, DR MEJIA Admitting Unavailable BRIGGS, MAGDI Consulting Unavailable PAY ., DR SWANSON Admitting Unavailable PAY ., DR SWANSON Consulting Unavailable AICHHOLZ, PARTY PLAN DEALER ARIANE Primary Care Unavailable PAY ., DR SWANSON Attending Unavailable AICHHOLZ, PARTY PLAN DEALER ARIANE Primary Care Unavailable KAITLIN, DR KLAUDIA Kay Attending Unavailabl e REINECK, DR KLAUDIA Kay Admitting Unavailabl e REINMONA, DR KLAUDIA Kay Consulting Unavailabl e JEYSON BLANTON Consulting Unavailable AICHHOLZ, PARTY PLAN DEALER ARIANE Primary Care Unavailable GLEN .GABINO Attending Unavailable GLEN ., GABINO Admitting Unavailable AICHHOLZ, PARTY PLAN DEALER ARIANE Primary Care Unavailable JOSE EDUARDO RIVERS V Consulting Unavailable JEYSON BLANTON Consulting Unavailable GLEN .GABINO Consulting Unavailable PAY ., DR SWANSON Admitting Unavailable PAY ., DR SWANSON Consulting Unavailable AICHHOLZ, PARTY PLAN DEALER ARIANE Primary Care Unavailable PAY ., DR SWANSON Attending Unavailable GERALDINE LAZAR Consulting Unavailable HAY ., DR DEL RIO Attending Unavailable HAY ., DR DEL RIO Admitting Unavailable AICHHOLZ, PARTY PLAN DEALER ARIANE Primary Care Unavailable HAY ., DR DEL RIO Consulting Unavailable GLEN .GABINO Attending Unavailable GLEN ., GABINO Admitting Unavailable AICHHOLZ, PARTY PLAN DEALER ARIANE Primary Care Unavailable DONTRELL DIAZ Consulting Unavailable GLEN .GABINO Consulting Unavailable JOSE EDUARDO RHODES Consulting Unavailable AICHHOLZ, PARTY PLAN DEALER ARIANE Referring Unavailable AICHHOLZ, PARTY PLAN DEALER ARIANE Primary Care Unavailable YUKI, AHMAD Attending Unavailable YUKI, AHMAD Admitting Unavailable YUKI, AHMAD Consulting Unavailable AICHHOLZ, PARTY PLAN DEALER ARIANE Consulting Unavailable AICHHOLZ, PARTY PLAN DEALER ARIANE Attending Unavailable AICHHOLZ, PARTY PLAN DEALER ARIANE Admitting Unavailable AICHHOLZ, PARTY PLAN DEALER ARIANE Primary Care Unavailable HAYDE VAN Consulting Unavailable AICHHOLZ, PARTY PLAN DEALER ARIANE Consulting Unavailable AICHHOLZ, PARTY PLAN DEALER ARIANE Attending Unavailable AICHHOLZ, PARTY PLAN DEALER ARIANE Admitting Unavailable AICHHOLZ, PARTY PLAN DEALER ARIANE Primary Care Unavailable AMINATA BOURGEOIS Attending Unavailable BK, AMINATA Admitting Unavailable JEYSON BLANTON Consulting Unavailable AICHHOLZ, PARTY PLAN DEALER ARIANE Primary Care Unavailable BK, AMINATA Consulting Unavailable AICHHOLZ, PARTY PLAN DEALER ARIANE Primary Care Unavailable TIMMIS, DR MEJIA Consulting Unavailable TIMMIS, DR MEJIA Attending Unavailable TIMMIS, DR MEJIA Admitting Unavailable ELIDA COWAN Consulting Unava ilable AICHHOLZ, ARIANE J Primary Care Physician Riky Le Attending Unavailable Jose LEUNG, Rush Reid Attending Unavailable Georges Shook MD Primary Care Provider [phone] Channing Freire MD Unavailable AICHHOLZ, ARIANE Attending Unavailable AICHHOLZ, ARIANE Attending Unavailable AICHHOLZ, ARIANE Attending Unavailable JOANN OWENS Attending Unavailable AICHHOLZ, ARIANE Referring Unavailable JOANN OWENS Attending Unavailable AICHHOLZ, ARIANE Attending Unavailable Allergies Allergy Classification Reported Allergen(s) Allergy Type Date of Onset Reaction(s) Facility (2 sources) predniSONE; Translations: [predniSONE] Drug Allergy 0 [facility] Repository (1 source) predniSONE; Translations: [prednisone] Drug Allergy 0 Slurred speech (finding), Tremor (finding) [facility] [place] (12 sources) Prednisone Propensity to adverse reactions 4 [facility] Work Phone: Medications Current Medications Medication Drug Class(es) Dates Sig (Normalized) Sig (Original) [id number] 200 actuat albuterol 0.09 mg/actuat metered dose [...] Start: 02-20-2022 take 1 capsule by mo [facility] once daily FLUoxetine 40 mg Cap [...] day(s), # 18 tab(s), Refills(s) 0, Pharmacy: [facility], 160, cm, 11/27/23 12:59:00 EDT, Height/Length [...] pain, # 20 tab(s), Refills(s) 0, Pharmacy: [facility], 160, cm, 11/27/23 12:59:00 EDT, Height/Length [...] 11-30-2019 Episodic Other aftercare (1 source) Other [facility] (current) drug therapy; Translations: [OTH 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 [facility] Comment on above: TESTS RESULT FLAG UN ITS REF RANGE LAB Clinician Provided Cytology Information Source.............Cervix;Endocervix No. of containers..01 ThinPrep Vial Age Algo ACOG Cristine... 63 01 FLAG LEGEND: L-Low Normal,H-High Normal,LL-Alert Low,HH-Alert High <-Panic Low,>-Panic High,A-Abnormal,AA-Critical Abnormal Performed at: 01 [address] [place] [address] Francesca Alonzo MD, HPV APTIMA Negative Negative [facility] Comment on above: This nucleic acid am plification test detects fourteen high- risk HPV types (16,18,31,33,35,39,45,51,52,56,58,59,66,68) without differentiation. Performed at: = - [address] [id number] Head Counselor: Francesca Alonzo MD, Phone: [phone] Performed at: - [address] [id number] Head Counselor: Francesca Alonzo MD, Phone: [phone] IGP, APTIMA HPV, RFX 16/18,45 Note . [facility] Comment on above: TESTS RESULT FLAG UN ITS REF RANGE LAB DIAGNOSIS: 02 NEGATIVE FOR INTRAEPITHELIAL LESION OR MALIGNANCY. Specimen adequacy: 02 Satisfactory for evaluation. No endocervical component is identified. Performed by: Hien Smith, Chief Payroll Clerk (ASCP) . 02 Note: Note 02 The [...] High <-Panic Low,>-Panic High,A-Abnormal,AA-Critical Abnormal Performed at: [address] [place] [phone] Francesca Alonzo MD, BROOM-ALONE CERVIX ENDOCERVIX [facility] UPPER RESPIRATORY CULTUREon 06-03-2024 UPPER RESPIRATORY CULTURE Upper Respiratory Culture Organism: Beta hemolytic Strep group B : [facility] UPPER RESPIRATORY CULTURE *ABNORMAL* [facility] UPPER RESPIRATORY CULTURE Light growth [facility] UPPER RESPIRATORY CULTURE Penicillin and ampicillin are drugs of choice for [facility] UPPER RESPIRATORY CULTURE treatment of beta-hemolytic streptococcal infections. [facility] Healthcare UPPER RESPIRATORY CULTURE Susceptibility testing [...] [facility] UPPER RESPIRATORY CULTURE Performed at: [facility] UPPER RESPIRATORY CULTURE [address] [place], [place] [id number] [facility] Healthcare UPPER RESPIRATORY CULTURE Head Counselor: Codey Sibley PhD, Phone: [phone] [facility] No Panel Informationon 04-29 [facility] biopsy[facility] Informed consent: discussed and consent obtained Informed [...] 2 Specimen sent for: H&E Photo taken [facility] Formson 11-28-2023 Forms [id number] Normal [facility] Consent for Treatmenton 10-31 Consent for Treatment [id number]#[id number] Normal [facility] Discharge Instructionson Discharge Instructions [id number] Normal [facility] ED Clinical Summaryon 2023 ED Clinical Summary [place] [id number] ED Clinical Summary Person Information Name: MARILIA VERA Kia/[facility] Age: 33 Years : 1990 Sex: Female Language: Taiwanese PCP: ARIANE WELLS CNP Marital Status: Visit [...] 11/27/2023 15:37:23 11/27/2023 15:37:23 11/27/2023 15:37:23 ADDRESS: [address] [place] [phone] PHYS DOC NOTES: MEDICAL INFORMATION: Prescriptions Given: [facility], [address] [place], [place] [id number], [phone] methocarbamol (Robaxin-750 oral tablet) 2 Tablets By [...] Follow up: With: Address: When: Georgi Pfeiffer [address] [place] [address] [facility] () In 3 days 11/30/2023 DIAGNOSIS: Pain in shoulder Normal [facility] ED Note-Physicianon 11-27-19 ED Note-Physician Basic Information [...] day(s), # 18 tab(s), Refills(s) 0, Pharmacy: [facility], 160, cm, 11/27/23 12:59:00 EDT, Height/Length Dosing, 114.1, kg, 11/27/23 12:59:00 EDT, Weight Dosing naproxen, 500 mg = 1 tab(s), Oral, BID, PRN for pain, # 20 tab(s), Refills(s) 0, Pharmacy: [facility], 160, cm, 11/27/23 12:59:00 EDT, Height/Length [...] Pfeiffer In 3 days 11/30/2023 EDT [address] [place] [address]- [place] (1) Additional Instructions: Patient Education Shoulder Pain [...] made to ensure accuracy, however, inadvertently computerized door furring installer mistakes may be present. Appropriate healthcare PPE [...] strengthen the arm. General instructions ? Take qmhp-hec-qivlgmr and prescription medicines only as told by [...] provider. Document Revised: 05/03/2022 Document Reviewed: 05/03/2022 [employer] Patient Education ? 2022 [employer]. Normal [facility] ED Patient Summaryon 024 ED Patient Summary (Inserted Image. Isadora ble to display) [address] [address] Patient Discharge Instructions Person Information Name: MARILIA VERA Age: 33 Years Arrival Date: 11/27/2023 12:52:48 Discharge Diagnosis: Pain in shoulder Primary Care Physician: ARIANE WELLS CNP Provider Information Primary Provider: Riky Le DO Advanced Non Food Receiving Clerk:Steven Cardenas PA-C The exam and treatment you received in the Emergency Department were for an urgent problem and are not intended as complete care. It is important that you follow up with a doctor, nurse practitioner, or physician?s graduate teaching assistant for ongoing care. If your symptoms [...] Follow-up Instructions: With: Address: When: Georgi Pfeiffer [address] [place] [address] Business (1) In 3 days 11/30/2023 In the event that this physician does not participate in your insurance network, please consult with your insurance company to find a nearby participating provider. Patient Education Materials: Shoulder Pain A MESSAGE TO ALL PATIENTS REGARDING OPIOIDS PRESCRIPTION OPIOIDS: WHAT YOU NEED TO KNOW Prescription opioids can be used to help relieve nonyaluo-gr-nmwbct pain and are often prescribed following a [...] be struggling with addiction, tell your health customer care assistant and ask for guidance or call [facility] [employer] Helpline at [phone]. o Source: Department of [facility] (more content not included)... Normal [facility] Formson 11-27-2023 Forms [id number] [facility] XR Shoulder Complete Righton 11-27-2023 XR [...] na DAP = na Normal [facility] CBC AUTO DIFFon 12-11-2022 BASO # 0.1 103/ul Normal 0.0-0.1 [facility] Comment on above: Performed By: #### P REGU #### [facility] [address] [place] [address] Dr. Jaz Barajas Basophils/100 WBC (Bld) 0.8 % Normal 0.2-2.0 [facility] Comment on above: Performed By: #### P REGU #### [facility] [address] [place] [address] Dr. Jaz Barajas EO # 0.2 103/ul Normal 0.0-0.7 [facility] Comment on above: Performed By: #### P REGU #### [facility] [address] [place] [address] Dr. Jaz Barajas Eosinophils/100 WBC (Bld) 2.1 % Normal 0.9-7.0 [facility] Comment on above: Performed By: #### P REGU #### [facility] [address] [place] [address] Dr. Jaz Barajas Erythrocyte distribution width (RBC) [Ratio] 13.0 % Normal 11.0-15.0 [facility] Comment on above: Performed By: #### P REGU #### [facility] [address] [place] [address] Dr. Jaz Barajas Hematocrit (Bld) [Volume fraction] 41.2 % Normal 36.0-48.0 [facility] Comment on above: Performed By: #### P REGU #### [facility] [address] [place] [address] Dr. Jaz Barajas Hemoglobin (Bld) [Mass/Vol] 13.7 g/dL Normal 12.0-16.0 [facility] Comment on above: Performed By: #### P REGU #### [facility] [address] [place] [address] Dr. Jaz Barajas IG # 0.02 10e3/ul Normal 0.00-0.03 [facility] Comment on above: Performed By: #### P REGU #### [facility] [address] [place] [address] Dr. Jaz Barajas IG % 0.2 % Normal 0.0-0.5 [facility] Comment on above: Performed By: #### P REGU #### [facility] [address] [place] [address] [address] Jaz Barajas LYMPH # 3.3 103/ul Normal 1.2-3.8 [facility] Comment on above: Performed By: #### P REGU #### [facility] [address] [place] [address] Dr. Jaz Barajas Lymphocytes/100 WBC (Bld) 34.8 % Normal 20.5-60.0 [facility] Comment on above: Performed By: #### P REGU #### [facility] [address] [place] [address] Dr. Jaz Barajas MANUAL DIFF REQ NO Normal [facility] Comment on above: Performed By: #### P REGU #### [facility] [address] [place] [address] Dr. Jaz Barajas MCH (RBC) [Entitic mass] 26.6 pg Critically low 26.7-34.0 [facility] Comment on above: Performed By: #### P REGU #### [facility] [address] [place] [address] Dr. Jaz Barajas MCHC (RBC) [Mass/Vol] 33.3 g/dL Normal 29.9-35.2 [facility] Comment on above: Performed By: #### P REGU #### [facility] [address] [place] [address] Dr. Jaz Barajas MCV (RBC) [Entitic vol] 79.8 fL Critically low 81.0-99.0 [facility] Comment on above: Performed By: #### P REGU #### [facility] [address] [place] [address] Dr. Jaz Barajas MONO # 0.7 103/ul Normal 0.3-0.8 [facility] Comment on above: Performed By: #### P REGU #### [facility] [address] [place] [address] Dr. Jaz Barajas Monocytes/100 WBC (Bld) 7.3 % Normal 1.7-12.0 [facility] Comment on above: Performed By: #### P REGU #### [facility] [address] [place] [address] Dr. Jaz Barajas NEUT # 5.3 103/ul Normal 1.4-6.5 [facility] Comment on above: Performed By: #### P REGU #### [facility] [address] [place] [address] Dr. Jaz Barajas Neutrophils/100 WBC (Bld) 54.8 % Normal 43.0-75.0 [facility] Comment on above: Performed By: #### P REGU #### [facility] [address] [place] [address] Dr. Jaz Barajas Platelet mean volume (Bld) [Entitic vol] 10.7 fL Normal 9.5-13.5 [facility] Comment on above: Performed By: #### P REGU #### [facility] [address] [place] [address] Dr. Jaz Barajas PLT 284 103/ul Normal 150-450 [facility] Comment on above: Performed By: #### P REGU #### [facility] [address] [place] [address] Dr. Jaz Barajas RBC 5.16 106/ul Normal 4.20-5.40 [facility] Comment on above: Performed By: #### P REGU #### [facility] [address] [place] [address] Dr. Jaz Barajas WBC 9.6 103/ul Normal 4.0-11.0 [facility] Comment on above: Performed By: #### P REGU #### [facility] [address] [place] [address] Dr. Jaz Barajas FREE T4on 12-11-2022 Free T4 [Mass/Vol] 1.10 ng/dL Normal 0.76-1.46 [facility] Comment on above: Performed By: #### P ROGLCM #### [facility] [address] [place], [place] [address] Dr. Jaz Barajas LIPID PROFILEon 12-11-2022 CHOL-HDL RATIO NORM SEE BELOW Normal [facility] Comment on above: Result Comment: 3.3 - 4.4 LOW RISK 4.4 - 7.1 AVERAGE RISK 7.1 - 11.0 MODERATE RISK >11.0 HIGH RISK Performed By: #### L IPID, TSH, CMP ####[facility] [address] [place], [place] [address]Ia. Jaz Barajas Cholesterol [Mass/Vol] 168 mg/dL Normal <=200 [facility] Comment on above: Performed By: #### L IPID, TSH, CMP ####[facility] [address] [place], [place] [address]Hl. Jaz Barajas Cholesterol in HDL [Mass/Vol] 32 mg/dL Critically low 40-60 [facility] Comment on above: Performed By: #### L IPID, TSH, CMP ####[facility] [address] [place], [place] [address]Uh. Jaz Barajas Cholesterol in LDL [Mass/Vol] 121.8 mg/dL Normal [facility] Comment on above: Performed By: #### L IPID, TSH, CMP ####[facility] [address] [place], [place] [address]Bb. Jaz Barajas Cholesterol.total/ Cholesterol in HDL [Mass ratio] 5.3 {ratio} Normal [facility] Comment on above: Performed By: #### L IPID, TSH, CMP ####[facility] [address] [place], [place] [address]Vk. Jaz Barajas HDL NORMAL > or = 60 mg/dl - LO W CARDIOVASCULAR RISK <40 mg/dl - HIGH CARDIOVASCULAR RISK Normal [facility] Comment on above: Performed By: #### L IPID, TSH, CMP ####[facility] [address] [place], [place] [address]Ee. Jaz Barajas LDL CALC NORMAL SEE BELOW Normal [facility] Comment on above: Result Comment: <100 mg/dl OPTIMAL 100 - 129 mg/dl NEAR OR ABOVE OPTIMAL 130 - 159 mg/dl BORDERLINE HIGH 160 - 189 mg/dl HIGH >190 mg/dl VERY HIGH Performed By: #### L IPID, TSH, CMP ####[facility] [address] [place] [id number] Barajas Triglyceride [Mass/Vol] 71 mg/dL Normal <=150 [facility] Comment on above: Performed By: #### L IPID, TSH, CMP ####[facility] [address] [place] [id number] Barajas VLDL CALC 14.2 mg/dL Normal [facility] Comment on above: Performed By: #### L IPID, TSH, CMP ####[facility] [address] [place] [address]DrPratibha Barajas MICROALBUMIN, RAND URon 11-30 mALB <1.3 Normal <=30.0 [facility] Comment on above: Performed By: #### P REGU #### [facility] [address] [place] [address] [address] Jaz Barajas PROF 14(COMP METB)on 023 Albumin [Mass/Vol] 3.7 g/dL Normal 3.4-5.0 [facility] Comment on above: Performed By: #### L IPID, TSH, CMP ####[facility] [address] [place] [id number] Barajas Albumin/Globulin [Mass ratio] 0.8 {ratio} Normal [facility] Comment on above: Performed By: #### L IPID, TSH, CMP ####[facility] [address] [place] [id number] Barajas ALP [Catalytic activity/Vol] 90 U/L Normal 46-116 [facility] Comment on above: Performed By: #### L IPID, TSH, CMP ####[facility] [address] [place] [id number] Barajas ALT [Catalytic activity/Vol] 106 U/L Critically high 14-59 [facility] Comment on above: Performed By: #### L IPID, TSH, CMP ####[facility] [address] [place] [address]Dr. Jaz Barajas Anion gap [Moles/Vol] 12.5 mmol/L Normal [facility] Comment on above: Performed By: #### L IPID, TSH, CMP ####[facility] [address] [place] [address]Dr. Jaz Barajas AST [Catalytic activity/Vol] 43 U/L Critically high 15-37 [facility] Comment on above: Performed By: #### L IPID, TSH, CMP ####[facility] [address] [place] [address]Dr. Jaz Barajas Bilirubin [Mass/Vol] 0.4 mg/dL Normal 0.2-1.0 [facility] Comment on above: Performed By: #### L IPID, TSH, CMP ####[facility] [address] [place], [place] [address]Dr. Jaz Barajas Calcium [Mass/Vol] 9.0 mg/dL Normal 8.5-10.1 [facility] Comment on above: Performed By: #### L IPID, TSH, CMP ####[facility] [address] [place], [place] [address]Dr. Jaz Barajas Chloride [Moles/Vol] 104 mmol/L Normal 98-107 [facility] Comment on above: Performed By: #### L IPID, TSH, CMP ####[facility] [address] [place] [address]Dr. Jaz Barajas CO2 [Moles/Vol] 25.8 mmol/L Normal 21.0-32.0 [facility] Comment on above: Performed By: #### L IPID, TSH, CMP ####[facility] [address] [place] [address]Dr. Jaz Barajas Creatinine [Mass/Vol] 0.76 mg/dL Normal 0.55-1.02 [facility] Comment on above: Performed By: #### L IPID, TSH, CMP ####[facility] [address] [place] [id number]. Jaz Barajas EGFR-AF MACEDONIAN >60 Normal >=60 [facility] Comment on above: Performed By: #### L IPID, TSH, CMP ####[facility] [address] [place] [address]Dr. Jaz Barajas EGFR-NON AF MACEDONIAN >60 Normal >=60 [facility] Comment on above: Performed By: #### L IPID, TSH, CMP ####[facility] [address] [place] [address]Dr. Jaz Barajas Globulin (S) [Mass/Vol] 4.4 g/dL Normal [facility] Comment on above: Performed By: #### L IPID, TSH, CMP ####[facility] [address] [place], [place] [address]Dr. Jaz Barajas Glucose [Mass/Vol] 228 mg/dL Critically high 74-106 [facility] Comment on above: Performed By: #### L IPID, TSH, CMP ####[facility] [address] [place], [place] [address]Dr. Jaz Barajas Potassium [Moles/Vol] 4.3 mmol/L Normal 3.5-5.1 [facility] Comment on above: Performed By: #### L IPID, TSH, CMP ####[facility] [address] [place] [address]Dr. Jaz Barajas Protein [Mass/Vol] 8.1 g/dL Normal 6.4-8.2 [facility] Comment on above: Performed By: #### L IPID, TSH, CMP ####[facility] [address] [place] [address]Dr. Jaz Barajas Sodium [Moles/Vol] 138 mmol/L Normal 136-145 [facility] Comment on above: Performed By: #### L IPID, TSH, CMP ####[facility] [address] [place] [address]Dr. Jaz Barajas Urea nitrogen [Mass/Vol] 21.0 mg/dL Critically high 7.0-18.0 [facility] Comment on above: Performed By: #### L IPID, TSH, CMP ####[facility] [address] [place] [address]Dr. Jaz Barajas Urea nitrogen/Creatinin e [Mass ratio] 27.6 mg/mg Normal [facility] Comment on above: Performed By: #### L IPID, TSH, CMP ####[facility] [address] [place] [address]Dr. Jaz Barajas TSHon 12-11-2022 TSH 3.602 uIU/mL Normal 0.358-3.740 [facility] Comment on above: Performed By: #### L IPID, TSH, CMP ####[facility] [address] [place], [place] [address]Dr. Jaz Barajas UA RANDOM W/MICROSCOPICon BACTERIA NONE SEEN Normal NONE SEEN [facility] Comment on above: Performed By: #### U AMIC ####[facility] [address] [place], [place] [address]Dr. Jaz Barajas Bilirubin Ql (U) Negative Normal NEGATIVE [facility] Comment on above: Performed By: #### U AMIC ####[facility] [address] [place], [place] [address]Dr. Jaz Barajas CAST NONE SEEN Normal NONE SEEN [facility] Comment on above: Performed By: #### U AMIC ####[facility] C[address]ayrz[address] [place], [place] [address]Dr. Jaz Barajas Clarity (U) CLEAR Normal CLEAR [facility] Comment on above: Performed By: #### U AMIC ####[facility] [address] [place] [address]Dr. Jaz Barajas Color (U) LT. YELLOW Normal YELLOW [facility] Comment on above: Performed By: #### U AMIC ####[facility] [address] [place] [address]Dr. Jaz Barajas Crystals LM Nom (Urine sed) NONE SEEN Normal NONE SEEN [facility] Comment on above: Performed By: #### U AMIC ####[facility] [address] [place] [address]Dr. Jaz Barajas Epithelial cells LM Ql (Urine sed) RARE Normal NONE SEEN /RARE [facility] Comment on above: Performed By: #### U AMIC ####[facility] [address] [place] [address]Dr. Jaz Barajas Glucose Ql (U) >1000 Abnormal NEGATIVE [facility] Comment on above: Performed By: #### U AMIC ####[facility] [address] [place], [place] [address]Dr. Jaz Barajas Hemoglobin Ql (U) Negative Normal NEGATIVE [facility] Comment on above: Performed By: #### U AMIC ####[facility] [address]vgt[address]up[address] [place], [place] [address]Dr. Jaz Barajas Ketones Ql (U) Negative Normal NEGATIVE [facility] Comment on above: Performed By: #### U AMIC ####[facility] Usbbpdvnln[address] [place], [place] [address]Dr. Jaz Barajas LEUKOCYTES Negative Normal NEGATIVE [facility] Comment on above: Performed By: #### U AMIC ####[facility] Pwltt[address]tw[address] [place], [place] [address]Dr. Jaz Barajas MUCOUS NONE SEEN Normal NONE SEEN [facility] Comment on above: Performed By: #### U AMIC ####[facility] Dtvpbttteo[address] [place] [address]Dr. Jaz Barajas Nitrite Ql (U) Negative Normal NEGATIVE [facility] Comment on above: Performed By: #### U AMIC ####[facility] Movpdpbnad[address] [place], [place] [address]Dr. aJz Barajas pH (U) 6.0 [pH] Normal 5-9 [facility] Comment on above: Performed By: #### U AMIC ####[facility] Wrvnz[address]xi[address] [place], [place] [address]Dr. Jaz Barajas RBC NONE SEEN Abnormal 0-2 [facility] Comment on above: Performed By: #### U AMIC ####[facility] Negpabobdh[address] [place], [place] [address]DrPratibha Barajas SPEC GRAVITY 1.020 Normal 1.005-<=1.0 25 [facility] Comment on above: Performed By: #### U AMIC ####[facility] [address] [place] [address]DrPratibha Barajas UA PROTEIN Negative Normal NEGATIVE/ TRACE [facility] Comment on above: Performed By: #### U AMIC ####[facility] [address] [place] [address]DrPratibha Barajas Urobilinogen Qn (U) 0.2 {Oxana'U}/dL Normal 0.2 - 1.0 [facility] Comment on above: Performed By: #### U AMIC ####[facility] [address] [place] [address]Dr. Jaz Barajas WBC 0-2 Abnormal NONE SEEN [facility] Comment on above: Performed By: #### U AMIC ####[facility] [address] [place] [address]Dr. Jaz Barajas VITAMIN D 25 OHon 12-11-2022 VIT D 25-OH 30.9 ng/mL Normal [facility] Comment on above: Performed By: #### P DUSTINM #### [facility] [address] [place] [address] Dr. Jaz Barajas VIT D RANGES SEE BELOW Normal [facility] Comment on above: Result Comment: <20 ng/mL Vit D deficient 20 - <30 ng/mL Vit D insufficient 30 - 100 ng/mL Vit D sufficient >100 ng/mL Potential Toxicity Performed By: #### P ROGLCM #### [facility] [address] [place] [address] [address] Jaz Barajas CBC AUTO DIFFon 11-15-2022 BASO # 0.1 103/ul Normal 0.0-0.1 [facility] Comment on above: Performed By: #### P VALENTINELCM #### [facility] [address] [place] [address] [address] Jaz Barajas Basophils/100 WBC (Bld) 0.6 % Normal 0.2-2.0 [facility] Comment on above: Performed By: #### P ROGLCM #### [facility] [address] [place] [address] [address] Jaz Barajas EO # 0.2 103/ul Normal 0.0-0.7 [facility] Comment on above: Performed By: #### P ROGLCM #### [facility] [address] [place] [address] Dr. Jaz Barajas Eosinophils/100 WBC (Bld) 2.0 % Normal 0.9-7.0 [facility] Comment on above: Performed By: #### P ROGLCM #### [facility] [address] [place] [address] Dr. Jaz Barajas Erythrocyte distribution width (RBC) [Ratio] 13.3 % Normal 11.0-15.0 [facility] Comment on above: Performed By: #### P ROGLCM #### [facility] [address] [place] [address] Dr. Jaz Barajas Hematocrit (Bld) [Volume fraction] 40.4 % Normal 36.0-48.0 [facility] Comment on above: Performed By: #### P ROGLCM #### [facility] [address] [place] [address] Dr. Jaz Barajas Hemoglobin (Bld) [Mass/Vol] 13.5 g/dL Normal 12.0-16.0 [facility] Comment on above: Performed By: #### P ROGLCM #### [facility] [address] [place] [address] Dr. Jaz Barajas IG # 0.03 10e3/ul Normal 0.00-0.03 [facility] Comment on above: Performed By: #### P ROGLCM #### [facility] [address] [place] [address] Dr. Jaz Barajas IG % 0.3 % Normal 0.0-0.5 [facility] Comment on above: Performed By: #### P ROGLCM #### [facility] [address] [place] [address] Dr. Jaz Barajas LYMPH # 3.3 103/ul Normal 1.2-3.8 [facility] Comment on above: Performed By: #### P ROGLCM #### [facility] [address] [place] [address] [address] Jaz Barajas Lymphocytes/100 WBC (Bld) 30.7 % Normal 20.5-60.0 [facility] Comment on above: Performed By: #### P ROGLCM #### [facility] [address] [place] [address] Dr. Jaz Barajas MANUAL DIFF REQ NO Normal [facility] Comment on above: Performed By: #### P ROGLCM #### [facility] [address] [place] [address] Dr. Jaz Barajas MCH (RBC) [Entitic mass] 26.6 pg Critically low 26.7-34.0 [facility] Comment on above: Performed By: #### P ROGLCM #### [facility] [address] [place] [address] Dr. Jaz Barajas MCHC (RBC) [Mass/Vol] 33.4 g/dL Normal 29.9-35.2 [facility] Comment on above: Performed By: #### P ROGLCM #### [facility] [address] [place] [address] Dr. Jaz Barajas MCV (RBC) [Entitic vol] 79.7 fL Critically low 81.0-99.0 [facility] Comment on above: Performed By: #### P ROGLCM #### [facility] [address] [place] [address] Dr. Jaz Barajas MONO # 0.8 103/ul Normal 0.3-0.8 [facility] Comment on above: Performed By: #### P ROGLCM #### [facility] [address] [place] [address] Dr. Jaz Barajas Monocytes/100 WBC (Bld) 7.4 % Normal 1.7-12.0 [facility] Comment on above: Performed By: #### P ROGLCM #### [facility] [address] [place] [address] Dr. Jaz Barajas NEUT # 6.3 103/ul Normal 1.4-6.5 [facility] Comment on above: Performed By: #### P ROGLCM #### [facility] [address] [place] [address] Dr. Jaz Barajas Neutrophils/100 WBC (Bld) 59.0 % Normal 43.0-75.0 [facility] Comment on above: Performed By: #### P ROGLCM #### [facility] [address] [place] [address] Dr. Jaz Barajas Platelet mean volume (Bld) [Entitic vol] 10.7 fL Normal 9.5-13.5 [facility] Comment on above: Performed By: #### P ROGLCM #### [facility] [address] [place] [address] Dr. Jaz Barajas PLT 326 103/ul Normal 150-450 [facility] Comment on above: Performed By: #### P ROGLCM #### [facility] [address] [place] [address] Dr. Jaz Barajas RBC 5.07 106/ul Normal 4.20-5.40 [facility] Comment on above: Performed By: #### P ROGLCM #### [facility] [address] [place] [address] Dr. Jaz Barajas WBC 10.7 103/ul Normal 4.0-11.0 [facility] Comment on above: Performed By: #### P ROGLCM #### [facility] [address] [place] [address] ABD/PELV W CONon [...] GERALDINE LAZAR Date: 2022-11-15 09:13 Normal [facility] ER URINE PROFILEon 3 Bilirubin Ql (U) Negative Normal NEGATIVE [facility] Comment on above: Performed By: #### P ROGLCM #### [facility] [address] [place] [address] Dr. Jaz Barajas Clarity (U) CLEAR Normal CLEAR [facility] Comment on above: Performed By: #### P ROGLCM #### [facility] [address] [place] [address] Dr. Jaz Barajas Color (U) LT. YELLOW Normal YELLOW [facility] Comment on above: Performed By: #### P ROGLCM #### [facility] [address] [place] [address] Dr. Jaz Barajas ERUELFEGOD A micrscopic examina tion will be performed if indicated. Normal [facility] Comment on above: Performed By: #### P ROGLCM #### [facility] [address] [place] [address] Dr. Jaz Barajas Glucose Ql (U) 1000 mg/dl Abnormal NEGATIVE [facility] Comment on above: Performed By: #### P ROGLCM #### [facility] [address] [place] [address] Dr. Jaz Barajas Hemoglobin Ql (U) Negative Normal NEGATIVE [facility] Comment on above: Performed By: #### P ROGLCM #### [facility] [address] [place] [address] [address] Jaz Barajas Ketones Ql (U) Negative Normal NEGATIVE [facility] Comment on above: Performed By: #### P ROGLCM #### [facility] [address] [place] [address] [address] Jaz Barajas LEUKOCYTES Negative Normal NEGATIVE [facility] Comment on above: Performed By: #### P ROGLCM #### [facility] [address] [address] [address] Jaz aBrajas Nitrite Ql (U) Negative Normal NEGATIVE [facility] Comment on above: Performed By: #### P ROGLCM #### [facility] [address] [place] [address] Dr. Jaz Barajas pH (U) 6.0 [pH] Normal 5-9 [facility] Comment on above: Performed By: #### P ROGLCM #### [facility] [address] [place] [address] Dr. Jaz Barajas SPEC GRAVITY 1.015 Normal 1.005-<=1.0 25 [facility] Comment on above: Performed By: #### P ROGLCM #### [facility] [address] [place] [address] Dr. Jaz Barajas UA PROTEIN Negative Normal NEGATIVE/ TRACE [facility] Comment on above: Performed By: #### P ROGLCM #### [facility] [address] [place] [address] [address] Jaz Barajas UR MICRO IND NOT INDICATED Normal [facility] Comment on above: Performed By: #### P ROGLCM #### [facility] [address] [place] [address] Dr. Jaz Barajas Urobilinogen Qn (U) 0.2 {Oxana'U}/dL Normal 0.2 - 1.0 [facility] Comment on above: Performed By: #### P ROGLCM #### [facility] [address] [place] [address] Dr. Jaz Barajas LIPASEon 03-17-2023 Lipase [Catalytic activity/Vol] 73.0 U/L Normal 73.0-393.0 [facility] Comment on above: Performed By: #### P REGU #### [facility] [address] [place] [address] [address] Jaz Barajas URon 11-15-2022 , QUAL Negative Normal NEGATIVE [facility] Comment on above: Performed By: #### E RUR, PREGU ####[facility] [address] [place] [address]Dr. Jaz Barajas PROF 14(COMP METB)on 023 Albumin [Mass/Vol] 3.6 g/dL Normal 3.4-5.0 [facility] Comment on above: Performed By: #### P REGU #### [facility] [address] [place] [address] Dr. Jaz Barajas Albumin/Globulin [Mass ratio] 0.9 {ratio} Normal [facility] Comment on above: Performed By: #### P REGU #### [facility] [address] [place] [address] [address] Jaz Barajas ALP [Catalytic activity/Vol] 98 U/L Normal 46-116 [facility] Comment on above: Performed By: #### P REGU #### [facility] [address] [place] [address] Dr. Jaz Barajas ALT [Catalytic activity/Vol] 138 U/L Critically high 14-59 [facility] Comment on above: Performed By: #### P REGU #### [facility] [address] [place] [address] Dr. Jaz Barajas Anion gap [Moles/Vol] 13.4 mmol/L Normal [facility] Comment on above: Performed By: #### P REGU #### [facility] [address] [place] [address] Dr. Jaz Barajas AST [Catalytic activity/Vol] 61 U/L Critically high 15-37 [facility] Comment on above: Performed By: #### P REGU #### [facility] [address] [place] [address] [address] Jaz Barajas Bilirubin [Mass/Vol] 0.2 mg/dL Normal 0.2-1.0 [facility] Comment on above: Performed By: #### P REGU #### [facility] [address] [place] [address] Dr. Jaz Barajas Calcium [Mass/Vol] 9.4 mg/dL Normal 8.5-10.1 [facility] Comment on above: Performed By: #### P REGU #### [facility] [address] [place] [address] Dr. Jaz Barajas Chloride [Moles/Vol] 104 mmol/L Normal 98-107 [facility] Comment on above: Performed By: #### P REGU #### [facility] [address] [place] [address] Dr. Jaz Barajas CO2 [Moles/Vol] 24.7 mmol/L Normal 21.0-32.0 [facility] Comment on above: Performed By: #### P REGU #### [facility] [address] [place] [address] Dr. Jaz Barajas Creatinine [Mass/Vol] 0.69 mg/dL Normal 0.55-1.02 [facility] Comment on above: Performed By: #### P REGU #### [facility] [address] [place] [address] Dr. Jaz Barajas EGFR-AF MACEDONIAN >60 Normal >=60 [facility] Comment on above: Performed By: #### P REGU #### [facility] [address] [place] [address] Dr. Jaz Barajas EGFR-NON AF MACEDONIAN >60 Normal >=60 [facility] Comment on above: Performed By: #### P REGU #### [facility] [address] [place] [address] Dr. Jaz Barajas Globulin (S) [Mass/Vol] 4.2 g/dL Normal [facility] Comment on above: Performed By: #### P REGU #### [facility] [address] [place] [address] Dr. Jaz Barajas Glucose [Mass/Vol] 339 mg/dL Critically high 74-106 [facility] Comment on above: Performed By: #### P REGU #### [facility] [address] [place] [address] [address] Jaz Barajas Potassium [Moles/Vol] 4.1 mmol/L Normal 3.5-5.1 [facility] Comment on above: Performed By: #### P REGU #### [facility] [address] [place] [address] Dr. Jaz Barajas Protein [Mass/Vol] 7.8 g/dL Normal 6.4-8.2 [facility] Comment on above: Performed By: #### P REGU #### [facility] [address] [place] [address] Dr. Jaz Barajas Sodium [Moles/Vol] 138 mmol/L Normal 136-145 [facility] Comment on above: Performed By: #### P REGU #### [facility] [address] [place] [address] Dr. Jaz Barajas Urea nitrogen [Mass/Vol] 17.0 mg/dL Normal 7.0-18.0 [facility] Comment on above: Performed By: #### P REGU #### [facility] [address] [place] [address] Dr. Jaz Braajas Urea nitrogen/Creatinin e [Mass ratio] 24.6 mg/mg Normal [facility] Comment on above: Performed By: #### P REGU #### [facility] [address] [place] [address] Dr. Jaz Barajas CULTURE WOUNDon 11-13-2022 CULTURE [...] S F Tetracycline >=16 R F Normal [facility] Comment on above: Performed By: #### W OUNDCX ####[facility] [address] [place], [place] [address]ZlDr. Jaz Barajas Covid-19 PCR ([facility])on 08-01 SARS-CoV-2 (COVID-19) RNA REANNA+probe Ql (Unsp spec) Not detected Normal NOT DETECTED [facility] Comment on above: Result Comment: This test is not yet approved or cleared by the [place] FDA. When there are no FDA-approved or cleared tests available, and other criteria are met, FDA can make tests available under an emergency access mechanism called an Emergency Use Authorization (EUA). The EUA for this test is supported by the Broach Operator of Health and Human Service's (HHS's) declaration [...] SARS-CoV-2. Performed By: #### P DUSTINM #### [facility] [address] [address] [address] Jaz Barajas INFLUENZA A AND B AGon 08-18 [facility] SEE BELOW Normal [facility] Comment on above: Result Comment: Nega tive for Flu A protein angiten. Infection due to Flu A cannot be ruled out. Flu A angiten in the sample may be below the detection limit of the test. Performed By: #### P VALENTINELCM #### [facility] [address] [place], [place] [address] Dr. Jaz Barajas [facility] SEE BELOW Normal [facility] Comment on above: Result Comment: Nega tive for Flu B protein antigen. Infection due to Flu B cannot be ruled out. Flu B antigen in the sample may be below the detection limit of the test. Performed By: #### P ROGLCM #### [facility] [address] [address] [address] Jaz Barajas INFLUENZA A AG Negative Normal NEGATIVE SEE COMMENT [facility] Comment on above: Performed By: #### P ROGLCM #### [facility] [address] [place] [address] [address] Jaz Barajas INFLUENZA B AG Negative Normal NEGATIVE SEE COMMENT [facility] Comment on above: Performed By: #### P ROGLCM #### [facility] [address] [place] [address] [address] Jaz Barajas INTERNAL CONTROLS Within Normal Limits Normal Wi thin Normal Limits [facility] Comment on above: Performed By: #### P ROGLCM #### [facility] [address] [place] [address] [address] Jaz Barajas POINT OF CARE GLUCOSEon - Glucose [Mass/Vol] 310 mg/dL Critically high 74-106 [facility] Comment on above: Performed By: #### P ROGLCM #### [facility] [address] [place] [address] [address] Jaz Barajas XR CHEST 1 Von [...] EDUARDO RHODES Date: 2022-08-18 15:33 Normal [facility] PREG HCG QUALon 05-14-2022 , QUAL Negative Normal NEGATIVE [facility] Comment on above: Performed By: #### P REG ####[facility] [address] [place] [address]Dr. Jaz Barajas CBC AUTO DIFFon 05-08-2022 BASO # 0.1 103/ul Normal 0.0-0.1 [facility] Comment on above: Performed By: #### C BC ####[facility] [address] [place] [id number]. Jaz Barajas Basophils/100 WBC (Bld) 0.6 % Normal 0.2-2.0 [facility] Comment on above: Performed By: #### C BC ####[facility] [address] [place] [id number]. Jaz Barajas EO # 0.2 103/ul Normal 0.0-0.7 [facility] Comment on above: Performed By: #### C BC ####[facility] [address] [place], [place] [address]Dr. Jaz Barajas Eosinophils/100 WBC (Bld) 1.5 % Normal 0.9-7.0 [facility] Comment on above: Performed By: #### C BC ####[facility] [address] [place], [place] [address]Dr. Jaz Barajas Erythrocyte distribution width (RBC) [Ratio] 12.6 % Normal 11.0-15.0 [facility] Comment on above: Performed By: #### C BC ####[facility] [address] [place], [place] [address]Dr. Jaz Barajas Hematocrit (Bld) [Volume fraction] 38.7 % Normal 36.0-48.0 [facility] Comment on above: Performed By: #### C BC ####[facility] [address] [place] [id number]. Jaz Barajas Hemoglobin (Bld) [Mass/Vol] 12.9 g/dL Normal 12.0-16.0 [facility] Comment on above: Performed By: #### C BC ####[facility] [address] [place], [place] [address]Dr. Jaz Barajas IG # 0.02 10e3/ul Normal 0.00-0.03 [facility] Comment on above: Performed By: #### C BC ####[facility] [address] [place], [place] [address]Dr. Jaz Barajas IG % 0.2 % Normal 0.0-0.5 [facility] Comment on above: Performed By: #### C BC ####[facility] [address] [place] [id number]. Jaz Barajas LYMPH # 3.5 103/ul Normal 1.2-3.8 [facility] Comment on above: Performed By: #### C BC ####[facility] [address] [place] [id number]. Jaz Barajas Lymphocytes/100 WBC (Bld) 34.4 % Normal 20.5-60.0 [facility] Comment on above: Performed By: #### C BC ####[facility] [address] [place] [id number]. Jaz Barajas MANUAL DIFF REQ NO Normal [facility] Comment on above: Performed By: #### C BC ####[facility] [address] [place] [id number]. Jaz Barajas MCH (RBC) [Entitic mass] 27.2 pg Normal 26.7-34.0 [facility] Comment on above: Performed By: #### C BC ####[facility] [address] [place] [id number]. Jaz Barajas MCHC (RBC) [Mass/Vol] 33.3 g/dL Normal 29.9-35.2 [facility] Comment on above: Performed By: #### C BC ####[facility] [address] [place] [id number]. Jaz Barajas MCV (RBC) [Entitic vol] 81.6 fL Normal 81.0-99.0 [facility] Comment on above: Performed By: #### C BC ####[facility] [address] [place] [id number]. Jaz Barajas MONO # 0.7 103/ul Normal 0.3-0.8 [facility] Comment on above: Performed By: #### C BC ####[facility] [address] [place] [id number]. Jaz Karl Monocytes/100 WBC (Bld) 7.0 % Normal 1.7-12.0 [facility] Comment on above: Performed By: #### C BC ####[facility] [address] [place], [place] [address]Xl. Jaz Barajas NEUT # 5.7 103/ul Normal 1.4-6.5 [facility] Comment on above: Performed By: #### C BC ####[facility] [address] [place], [place] [address]Me. Jaz Barajas Neutrophils/100 WBC (Bld) 56.3 % Normal 43.0-75.0 [facility] [facility] Comment on above: Performed By: #### C BC ####[facility] [address] [place] [id number]. Jaz Barajas Platelet mean volume (Bld) [Entitic vol] 11.0 fL Normal 9.5-13.5 [facility] Comment on above: Performed By: #### C BC ####[facility] [address] [place] [id number]. Jaz Barajas PLT 274 103/ul Normal 150-450 [facility] Comment on above: Performed By: #### C BC ####[facility] [address] [place] [id number]. Jaz Barajas RBC 4.74 106/ul Normal 4.20-5.40 [facility] Comment on above: Performed By: #### C BC ####[facility] [address] [place] [id number]. Jaz Barajas WBC 10.0 103/ul Normal 4.0-11.0 [facility] Comment on above: Performed By: #### C BC ####[facility] [address] [place] [id number]. Jaz Barajas Covid-19 PCR (CVDTB)on SARS-CoV-2 (COVID-19) RNA REANNA+probe Ql (Unsp spec) Not detected Normal NOT DETECTED [facility] Comment on above: Result Comment: This test is not yet approved or cleared by the [place] FDA. When there are no FDA-approved or cleared tests available, and other criteria are met, FDA can make tests available under an emergency access mechanism called an Emergency Use Authorization (EUA). The EUA for this test is supported by the [place] of Health and Human Service's (HHS's) declaration [...] SARS-CoV-2. Performed By: #### P REGU #### [facility] [address] [place] [address] Dr. Jaz Barajas PROF CHEM 8 (BAS METB)on Anion gap [Moles/Vol] 10.1 mmol/L Normal [facility] Comment on above: Performed By: #### P REGU #### [facility] [address] [place] [address] Dr. Jaz Barajas Calcium [Mass/Vol] 9.0 mg/dL Normal 8.5-10.1 [facility] Comment on above: Performed By: #### P REGU #### [facility] [address] [place] [address] Dr. Jaz Barajas Chloride [Moles/Vol] 99 mmol/L Normal 98-107 [facility] Comment on above: Performed By: #### P REGU #### [facility] [address] [place] [address] Dr. Jaz Barajas CO2 [Moles/Vol] 29.1 mmol/L Normal 21.0-32.0 [facility] Comment on above: Performed By: #### P REGU #### [facility] [address] [place] [address] Dr. Jaz Barajas Creatinine [Mass/Vol] 0.80 mg/dL Normal 0.55-1.02 [facility] Comment on above: Performed By: #### P REGU #### [facility] [address] [place] [address] Dr. Jaz Barajas EGFR-AF MACEDONIAN >60 Normal >=60 [facility] Comment on above: Performed By: #### P REGU #### [facility] [address] [place] [address] Dr. Jaz Barajas EGFR-NON AF MACEDONIAN >60 Normal >=60 [facility] Comment on above: Performed By: #### P REGU #### [facility] [address] [place] [address] Dr. Jaz Barajas Glucose [Mass/Vol] 217 mg/dL Critically high 74-106 [facility] Comment on above: Performed By: #### P REGU #### [facility] [address] [place] [address] Dr. Jaz Barajas Potassium [Moles/Vol] 4.2 mmol/L Normal 3.5-5.1 [facility] Comment on above: Result Comment: spec imen slightly hemolyzed may affect K+ result Performed By: #### P REGU #### [facility] [address] [place] [address] Dr. Jaz Barajas Sodium [Moles/Vol] 134 mmol/L Critically low 136-145 [facility] Comment on above: Performed By: #### P REGU #### [facility] [address] [place] [address] Dr. Jaz Barajas Urea nitrogen [Mass/Vol] 11.0 mg/dL Normal 7.0-18.0 [facility] Comment on above: Performed By: #### P REGU #### [facility] [address] [place] [address] Dr. Jaz Barajas Urea nitrogen/Creatinin e [Mass ratio] 13.8 mg/mg Normal [facility] Comment on above: Performed By: #### P REGU #### [facility] [address] [place] [address] ABD/PELV W CONon [...] JEYSON BLANTON Date: 2022-04-18 12:31 Normal [facility] ER URINE PROFILEon 2 Bilirubin Ql (U) Negative Normal NEGATIVE [facility] Comment on above: Performed By: #### E GLORIA PREGU ####[facility] [address] [place] [address]Dr. Jaz Barajas Clarity (U) CLEAR Normal CLEAR [facility] Comment on above: Performed By: #### Neva CASTRO PREGU ####[facility] [address] [place] [address]Dr. Jaz Barajas Color (U) LT. YELLOW Normal YELLOW [facility] Comment on above: Performed By: #### E GLORIA PREGU ####[facility] [address] [place] [address]Dr. Jaz MEDINA A micrscopic examina tion will be performed if indicated. Normal [facility] Comment on above: Performed By: #### Neva RUR, PREGU ####[facility] R[address]oeccacic[address] [place] [address]Dr. Jaz Barajas Glucose Ql (U) 1000 mg/dl Abnormal NEGATIVE [facility] Comment on above: Performed By: #### E RUR, PREGU ####[facility] [address] [place], [place] [address]Dr. Jaz Barajas Hemoglobin Ql (U) Negative Normal NEGATIVE [facility] Comment on above: Performed By: #### Neva RUR, PREGU ####[facility] [address] [place], [place] [address]Dr. Jaz Barajas Ketones Ql (U) Negative Normal NEGATIVE [facility] Comment on above: Performed By: #### Neva RUR, PREGU ####[facility] [address] [place], [place] [address]Dr. Jaz Barajas LEUKOCYTES Negative Normal NEGATIVE [facility] Comment on above: Performed By: #### Neva RUR, PREGU ####[facility] [address] [place], [place] [address]Dr. Jaz Barajas Nitrite Ql (U) Negative Normal NEGATIVE [facility] Comment on above: Performed By: #### Neva BREAUXR, PREGU ####[facility] [address] [place], [place] [address]Dr. Jaz Barajas pH (U) 6.5 [pH] Normal 5-9 [facility] Comment on above: Performed By: #### Neva RUR, PREGU ####[facility] [address] [place], [place] [address]Dr. Jza Barajas SPEC GRAVITY 1.010 Normal 1.005-<=1.0 25 [facility] Comment on above: Performed By: #### Neva RUR, PREGU ####[facility] [address] [place], [place] [address]Dr. Jaz Barajas UA PROTEIN Negative Normal NEGATIVE/ TRACE [facility] Comment on above: Performed By: #### E RUR, PREGU ####[facility] [address] [place] [phone]. Jaz Barajas UR MICRO IND NOT INDICATED Normal [facility] Comment on above: Performed By: #### E RUR, PREGU ####[facility] [address] [place], [place] [address]Hm. Jaz Barajas Urobilinogen Qn (U) 0.2 {Oxana'U}/dL Normal 0.2 - 1.0 [facility] Comment on above: Performed By: #### E RUR, PREGU ####[facility] [address] [place] [phone]. Jaz Barajas URon 04-18-2022 , QUAL Negative Normal NEGATIVE [facility] Comment on above: Performed By: #### E RUR, PREGU ####[facility] [address] [place] [phone]. Jaz Barajas 17-[place] PROGESTERONE, LC/MSon 04-05-2022 17-[place] Progesterone LCMS 43 ng/dL Normal [facility] Comment on above: Result Comment: Adul t Female Follicular 15 - 70 Luteal 35 - 290 Performed By: #### P ROGLCM #### [facility] [address] [place] [address] [address] Jaz Barajas ANDROSTENEDINE LC/MSon 04-05 Androstenedione LCMS 111 ng/dL Normal 41-262 [facility] Comment on above: Result Comment: This test was developed and its performance characteristics determined by [facility]. It has not been cleared or approved by the Food and Drug Administration. Performed By: #### A NDROST #### [facility] [address] [place] [address] [address] Jaz Barajas TESTOSTERONE, TOTALon 2021 Testosterone [Mass/Vol] 70 ng/dL Critically high 8-60 [facility] Comment on above: Performed By: #### T ESTTOT ####[facility] [address] [place] [phone]. Jaz Barajas PROF CHEM 8 (BAS METB)on Anion gap [Moles/Vol] 11.5 mmol/L Normal [facility] Comment on above: Performed By: #### B MP ####[facility] [address] [place] [address]Dr. Jaz Barajas Calcium [Mass/Vol] 9.1 mg/dL Normal 8.5-10.1 [facility] Comment on above: Performed By: #### B MP ####[facility] [address] [place] [address]Dr. Jaz Barajas Chloride [Moles/Vol] 103 mmol/L Normal 98-107 [facility] Comment on above: Performed By: #### B MP ####[facility] [address] [place], [place] [address]Dr. Hannahisela Karl CO2 [Moles/Vol] 28.0 mmol/L Normal 21.0-32.0 [facility] Comment on above: Performed By: #### B MP ####[facility] [address] [place], [place] [address]Dr. Jaz Barajas Creatinine [Mass/Vol] 0.74 mg/dL Normal 0.55-1.02 [facility] Comment on above: Performed By: #### B MP ####[facility] [address] [place], [place] [address]Dr. Hannahisela Karl EGFR-AF MACEDONIAN >60 Normal >=60 [facility] Comment on above: Performed By: #### B MP ####[facility] [address] [place], [place] [address]Dr. Jaz Barajas EGFR-NON AF MACEDONIAN >60 Normal >=60 [facility] Comment on above: Performed By: #### B MP ####[facility] [address] [place], [place] [address]Dr. Jaz Barajas Glucose [Mass/Vol] 197 mg/dL Critically high 74-106 [facility] Comment on above: Performed By: #### B MP ####[facility] [address] [place], [place] [address]Dr. Jaz Barajas Potassium [Moles/Vol] 4.5 mmol/L Normal 3.5-5.1 [facility] Comment on above: Performed By: #### B MP ####[facility] [address] [place] [phone]. Jaz Barajas Sodium [Moles/Vol] 138 mmol/L Normal 136-145 [facility] Comment on above: Performed By: #### B MP ####[facility] [address] [place] [phone]. Jaz Barajas Urea nitrogen [Mass/Vol] 11.0 mg/dL Normal 7.0-18.0 [facility] Comment on above: Performed By: #### B MP ####[facility] [address] [place] [address]Dr. Jaz Barajas Urea nitrogen/Creatinin e [Mass ratio] 14.9 mg/mg Normal [facility] Comment on above: Performed By: #### B MP ####[facility] [address] [place] [address]Dr. Jaz Barajas XR ABD FLAT_UPon 02-06-2022 XR [...] EDUARDO RIVERS Date: 2022-02-06 17:25 Normal [facility] CREATININEon 01-31-2022 Creatinine [Mass/Vol] 0.74 mg/dL Normal 0.55-1.02 [facility] Comment on above: Performed By: #### P ROGLCM #### [facility] [address] [place] [address] [address] Jaz Barajas EGFR-AF MACEDONIAN >60 Normal >=60 [facility] Comment on above: Performed By: #### P ROGLCM #### [facility] [address] [place] [address] [address] Jaz Barajas EGFR-NON AF MACEDONIAN >60 Normal >=60 [facility] Comment on above: Performed By: #### P ROGLCM #### [facility] [address] [place], [place] [address] [address] ABDOMEN W CONon [...] JEYSON BLANTON Date: 2022-01-31 18:16 Normal [facility] ACETONE SERUMon 01-09-2022 ACETONE Negative Normal NEGATIVE [facility] Comment on above: Performed By: #### A CETON ####[facility] [address] [place], [place] [address]Dr. Jaz Barajas CARDIAC BISI ADMITon 022 CK [Catalytic activity/Vol] 58 U/L Normal 26-192 [facility] Comment on above: Performed By: #### P REGU #### [facility] [address] [place], [place] [address] Dr. Jaz Barajas CK.MB [Mass/Vol] 0.64 ng/mL Normal <=3.60 [facility] Comment on above: Performed By: #### P REGU #### [facility] [address] [place] [address] Dr. Jaz Barajas HSTROP 5.3 pg/mL Normal 4.0-51.3 [facility] Comment on above: Result Comment: CUT- OFF POINTS HAVE BEEN ESTABLISHED BASED ON THE FOURTH UNIVERSAL DEFINITIONS OF MYOCARDIAL INFARCTION. THE UPPER REFERENCE LIMIT (URL) OF TROPONIN, DEFINED THE 99TH PERCENTILE OF cTnI DISTRIBUTION IN A REFERENCE POPULATION, HAS BEEN CONFIRMED THE DECISION THRESHOLD FOR [place] DIAGNOSIS. Performed By: #### P REGU #### [facility] [address] [place] [address] Dr. Jaz Barajas WAI 30 ng/mL Normal 9-82 [facility] Comment on above: Performed By: #### P REGU #### [facility] [address] [place] [address] Dr. Jaz Barajas CBC AUTO DIFFon 01-09-2022 BASO # 0.1 103/ul Normal 0.0-0.1 [facility] Comment on above: Performed By: #### P REGU #### [facility] [address] [place] [address] Dr. Jaz Barajas Basophils/100 WBC (Bld) 0.5 % Normal 0.2-2.0 [facility] Comment on above: Performed By: #### P REGU #### [facility] [address] [place] [address] Dr. Jaz Barajas EO # 0.3 103/ul Normal 0.0-0.7 [facility] Comment on above: Performed By: #### P REGU #### [facility] [address] [place] [address] Dr. Jaz Barajas Eosinophils/100 WBC (Bld) 2.5 % Normal 0.9-7.0 [facility] Comment on above: Performed By: #### P REGU #### [facility] [address] [place] [address] Dr. Jaz Barajas Erythrocyte distribution width (RBC) [Ratio] 12.8 % Normal 11.0-15.0 [facility] Comment on above: Performed By: #### P REGU #### [facility] [address] [place] [address] Dr. Jaz Barajas Hematocrit (Bld) [Volume fraction] 41.0 % Normal 36.0-48.0 [facility] Comment on above: Performed By: #### P REGU #### [facility] [address] [place] [address] Dr. Jaz Barajas Hemoglobin (Bld) [Mass/Vol] 13.6 g/dL Normal 12.0-16.0 [facility] Comment on above: Performed By: #### P REGU #### [facility] [address] [place] [address] Dr. Jaz Barajas IG # 0.03 10e3/ul Normal 0.00-0.03 [facility] Comment on above: Performed By: #### P REGU #### [facility] [address] [place] [address] Dr. Jaz Barajas IG % 0.3 % Normal 0.0-0.5 [facility] Comment on above: Performed By: #### P REGU #### [facility] [address] [place] [address] Dr. Jaz Barajas LYMPH # 2.7 103/ul Normal 1.2-3.8 [facility] Comment on above: Performed By: #### P REGU #### [facility] [address] [place] [address] Dr. Jaz Barajas Lymphocytes/100 WBC (Bld) 25.7 % Normal 20.5-60.0 [facility] Comment on above: Performed By: #### P REGU #### [facility] [address] [place] [address] Dr. Jaz Barajas MANUAL DIFF REQ NO Normal [facility] Comment on above: Performed By: #### P REGU #### [facility] [address] [place] [address] Dr. Jaz Barajas MCH (RBC) [Entitic mass] 27.7 pg Normal 26.7-34.0 [facility] Comment on above: Performed By: #### P REGU #### [facility] [address] [place] [address] Dr. Jaz Barajas MCHC (RBC) [Mass/Vol] 33.2 g/dL Normal 29.9-35.2 [facility] Comment on above: Performed By: #### P REGU #### [facility] [address] [place] [address] Dr. Jaz Barajas MCV (RBC) [Entitic vol] 83.5 fL Normal 81.0-99.0 [facility] Comment on above: Performed By: #### P REGU #### [facility] [address] [place] [address] Dr. Jaz Barajas MONO # 0.8 103/ul Normal 0.3-0.8 [facility] Comment on above: Performed By: #### P REGU #### [facility] [address] [place] [address] Dr. Jaz Barajas Monocytes/100 WBC (Bld) 7.4 % Normal 1.7-12.0 [facility] Comment on above: Performed By: #### P REGU #### [facility] [address] [place] [address] Dr. Jaz Barajas NEUT # 6.6 103/ul Critically high 1.4-6.5 [facility] Comment on above: Performed By: #### P REGU #### [facility] [address] [place] [address] Dr. Jaz Barajas Neutrophils/100 WBC (Bld) 63.6 % Normal 43.0-75.0 [facility] Comment on above: Performed By: #### P REGU #### [facility] [address] [place] [address] Dr. Jaz Barajas Platelet mean volume (Bld) [Entitic vol] 11.5 fL Normal 9.5-13.5 [facility] Comment on above: Performed By: #### P REGU #### [facility] [address] [place] [address] Dr. Jaz Barajas PLT 227 103/ul Normal 150-450 [facility] Comment on above: Performed By: #### P REGU #### [facility] [address] [place], [place] [address] Dr. Jaz Barajas RBC 4.91 106/ul Normal 4.20-5.40 [facility] Comment on above: Performed By: #### P REGU #### [facility] [address] [place], [place] [address] Dr. Jaz Barajas WBC 10.4 103/ul Normal 4.0-11.0 [facility] Comment on above: Performed By: #### P REGU #### [facility] [address] [place], [place] [address] Dr. Jaz Barajas CTA CHEST WO W [...] by: JEYSON BLANTON Date: 2022-01-09 09:47 Normal [facility] D-DIMERon 01-09-2022 D-DIMER 0.56 mg/L FEU Critically high 0.19-0.50 [facility] Comment on above: Result Comment: test repeated critical value verified Performed By: #### D DIM, PT, PTT #### [facility] [address] [place] [address] Dr. Jaz Barajas D-DIMER COMMENTS SEE BELOW Normal [facility] Comment on above: Result Comment: Incr [...] By: #### D DIM, PT, PTT #### [facility] [address] [place] [address] Dr. Jaz Barajas ER URINE PROFILEon 2 Bilirubin Ql (U) Negative Normal NEGATIVE [facility] Comment on above: Performed By: #### P ROGLCM #### [facility] [address] [place] [address] Dr. Jaz Barajas Clarity (U) CLEAR Normal CLEAR [facility] Comment on above: Performed By: #### P ROGLCM #### [facility] [address] [place] [address] Dr. Jaz Barajas Color (U) YELLOW Normal YELLOW [facility] Comment on above: Performed By: #### P ROGLCM #### [facility] [address] [place] [address] Dr. Jaz Barajas ERUAHD A micrscopic examina tion will be performed if indicated. Normal [facility] Comment on above: Performed By: #### P ROGLCM #### [facility] [address] [place] [address] Dr. Jaz Barajas Glucose Ql (U) 500 mg/dl Abnormal NEGATIVE [facility] Comment on above: Performed By: #### P ROGLCM #### [facility] [address] [place] [address] Dr. Jaz Barajas Hemoglobin Ql (U) Negative Normal NEGATIVE [facility] Comment on above: Performed By: #### P ROGLCM #### [facility] [address] [address] [address] Jaz Barajas Ketones Ql (U) Negative Normal NEGATIVE [facility] Comment on above: Performed By: #### P ROGLCM #### [facility] [address] [place] [address] Dr. Jaz Barajas LEUKOCYTES Negative Normal NEGATIVE [facility] Comment on above: Performed By: #### P ROGLCM #### [facility] [address] [address] [address] Jaz Barajas Nitrite Ql (U) Negative Normal NEGATIVE [facility] Comment on above: Performed By: #### P ROGLCM #### [facility] [address] [place] [address] Dr. Jaz Barajas pH (U) 6.0 [pH] Normal 5-9 [facility] Comment on above: Performed By: #### P ROGLCM #### [facility] [address] [place] [address] Dr. Jaz Barajas SPEC GRAVITY >=1.030 Abnormal 1.005-<=1.0 25 [facility] Comment on above: Performed By: #### P ROGLCM #### [facility] [address] [place] [address] Dr. Jaz Barajas UA PROTEIN Negative Normal NEGATIVE/ TRACE [facility] Comment on above: Performed By: #### P ROGLCM #### [facility] [address] [place] [address] Dr. Jaz Barajas UR MICRO IND NOT INDICATED Normal [facility] Comment on above: Performed By: #### P ROGLCM #### [facility] [address] [place] [address] Dr. Jaz Barajas Urobilinogen Qn (U) 0.2 {Oxana'U}/dL Normal 0.2 - 1.0 [facility] Comment on above: Performed By: #### P ROGLCM #### [facility] [address] [place] [address] Dr. Jaz Barajas PH VENOUS BLOODon 01-09-2022 PCO2 VENOUS 39.2 mmHg Critically low 40.0-52.0 [facility] Comment on above: Performed By: #### P HVEN #### [facility] [address] [address] [address] Jaz Barajas pH VENOUS 7.409 Normal 7.330-7.430 [facility] Comment on above: Performed By: #### P HVEN #### [facility] [address] [address] [address] Jaz Barajas URon 01-09-2022 , QUAL Negative Normal NEGATIVE [facility] Comment on above: Performed By: #### P REGU #### [facility] [address] [place] [address] Dr. Jaz Barajas PROF 14(COMP METB)on 022 Albumin [Mass/Vol] 3.2 g/dL Critically low 3.4-5.0 [facility] Comment on above: Performed By: #### P REGU #### [facility] [address] [address] [address] Jaz Barajas Albumin/Globulin [Mass ratio] 0.8 {ratio} Normal [facility] Comment on above: Performed By: #### P REGU #### [facility] [address] [place] [address] Dr. Jaz Barajas ALP [Catalytic activity/Vol] 109 U/L Normal 46-116 [facility] Comment on above: Performed By: #### P REGU #### [facility] [address] [address] [address] Jaz Barajas ALT [Catalytic activity/Vol] 95 U/L Critically high 14-59 [facility] Comment on above: Performed By: #### P REGU #### [facility] [address] [address] [address] Jaz Barajas Anion gap [Moles/Vol] 11.7 mmol/L Normal [facility] Comment on above: Performed By: #### P REGU #### [facility] [address] [place] [address] Dr. Jaz Barajas AST [Catalytic activity/Vol] 44 U/L Critically high 15-37 [facility] Comment on above: Performed By: #### P REGU #### [facility] [address] [address] [address] Jaz Barajas Bilirubin [Mass/Vol] 0.3 mg/dL Normal 0.2-1.0 [facility] Comment on above: Performed By: #### P REGU #### [facility] [address] [address] [address] Jaz Barajas Calcium [Mass/Vol] 8.8 mg/dL Normal 8.5-10.1 [facility] Comment on above: Performed By: #### P REGU #### [facility] [address] [address] [address] Jaz Barajas Chloride [Moles/Vol] 102 mmol/L Normal 98-107 [facility] Comment on above: Performed By: #### P REGU #### [facility] [address] [place] [address] Dr. Jaz Barajas CO2 [Moles/Vol] 25.3 mmol/L Normal 21.0-32.0 [facility] Comment on above: Performed By: #### P REGU #### [facility] [address] [place] [address] Dr. Jaz Barajas Creatinine [Mass/Vol] 0.86 mg/dL Normal 0.55-1.02 [facility] Comment on above: Performed By: #### P REGU #### [facility] [address] [place] [address] Dr. Jaz Barajas EGFR-AF MACEDONIAN >60 Normal >=60 [facility] Comment on above: Performed By: #### P REGU #### [facility] [address] [address] [address] Jaz Barajas EGFR-NON AF MACEDONIAN >60 Normal >=60 [facility] Comment on above: Performed By: #### P REGU #### [facility] [address] [place] [address] Dr. Jaz Barajas Globulin (S) [Mass/Vol] 3.9 g/dL Normal [facility] Comment on above: Performed By: #### P REGU #### [facility] [address] [address] [address] Jaz Barajas Glucose [Mass/Vol] 230 mg/dL Critically high 74-106 [facility] Comment on above: Performed By: #### P REGU #### [facility] [address] [address] [address] Jaz Barajas Potassium [Moles/Vol] 4.0 mmol/L Normal 3.5-5.1 [facility] Comment on above: Performed By: #### P REGU #### [facility] [address] [address] [address] Jaz Barajas Protein [Mass/Vol] 7.1 g/dL Normal 6.4-8.2 [facility] Comment on above: Performed By: #### P REGU #### [facility] [address] [address] [address] Jaz Barajas Sodium [Moles/Vol] 135 mmol/L Critically low 136-145 [facility] Comment on above: Performed By: #### P REGU #### [facility] [address] [address] [address] Jaz Barajas Urea nitrogen [Mass/Vol] 15.0 mg/dL Normal 7.0-18.0 [facility] Comment on above: Performed By: #### P REGU #### [facility] [address] [address] [address] Jaz Barajas Urea nitrogen/Creatinin e [Mass ratio] 17.4 mg/mg Normal [facility] Comment on above: Performed By: #### P REGU #### [facility] [address] [address] [address] Jaz Barajas PROTIMEon 01-09-2022 INR Coag (PPP) [Relative time] 0.96 {INR} Normal [facility] Comment on above: Performed By: #### D DIM, PT, PTT #### [facility] [address] [place] [address] Dr. Jaz Barajas INR GUIDELINES SEE BELOW Normal [facility] Comment on above: Result Comment: UMU RED INR: 2.0 - 3.0 CONDITIONS NOT LISTED BELOW 2.5 - 3.5 FOR PROSTHETIC HEART VALVE REPLACEMENT 2.5 - 3.5 RECURRENT THROMBOSIS Performed By: #### D DIM, PT, PTT #### [facility] [address] [place] [address] Dr. Jaz Barajas PT Coag (PPP) [Time] 10.4 s Normal 9.0-11.6 [facility] Comment on above: Performed By: #### D DIM, PT, PTT #### [facility] [address] [place] [address] Dr. Jaz Barajas PTTon 01-09-2022 aPTT Coag (Bld) [Time] 28.8 s Normal 22.3-36.2 [facility] Comment on above: Performed By: #### D DIM, PT, PTT #### [facility] [address] [place] [address] Dr. Jaz Barajas TROPONIN, HIGH SENSITIVITYon 01-09-2022 HSTROP 4.5 pg/mL Normal 4.0-51.3 [facility] Comment on above: Result Comment: CUT- OFF POINTS HAVE BEEN ESTABLISHED BASED ON THE FOURTH UNIVERSAL DEFINITIONS OF MYOCARDIAL INFARCTION. THE UPPER REFERENCE LIMIT (URL) OF TROPONIN, DEFINED THE 99TH PERCENTILE OF cTnI DISTRIBUTION IN A REFERENCE POPULATION, HAS BEEN CONFIRMED THE DECISION THRESHOLD FOR [place] DIAGNOSIS. Performed By: #### P ROGLCM #### [facility] [address] [place] [address] Dr. Jaz Barajas TSHon 01-09-2022 TSH 2.769 uIU/mL Normal 0.358-3.740 [facility] Comment on above: Performed By: #### P REGU #### [facility] [address] [place] [address] Dr. Jaz Barajas TSH RANGE SEE BELOW Normal [facility] Comment on above: Result Comment: <0.3 4 UIU/ml HYPERTHYROID 0.34-5.60 UIU/ml EUTHYROID >5.60 UIU/ml HYPOTHYROID Performed By: #### P REGU #### [facility] [address] [place] [address] Dr. Jaz Barajas XR CHEST 1 Von [...] JOSE EDUARDO RIVERS Date: 2022-01-09 08:29 Normal [facility] Vital Signs Date Time Vital Sign Value Performing Clinician Facility 06-16-2024 17:05-0400 Body height 160 cm Ariane Russell [employer] Work Phone: [facility] 06-16-2024 17:05-0400 Body mass index (BMI) [Ratio] 43.65 kg/m2 Ariane Russell [employer] Work Phone: [facility] 06-16-2024 17:05-0400 Body temperature 98.8 [degF] Ariane Russell [employer] Work Phone: [facility] 06-16-2024 17:05-0400 Body weight 111.77 kg Ariane Garciajose [employer] Work Phone: [facility] 06-16-2024 17:05-0400 Diastolic blood pressure 80 mm[Hg] Ariane Russell [employer] Work Phone: [facility] 06-16-2024 17:05-0400 Heart rate 81 /min Ariane Russell [employer] Work Phone: [facility] 06-16-2024 17:05-0400 Respiratory rate 18 /min Ariane Russell [employer] Work Phone: [facility] 06-16-2024 17:05-0400 SaO2% (BldA) [Mass fraction] 98 % Ariane Wells [employer] Work Phone: [facility] 06-16-2024 17:05-0400 Systolic blood pressure 110 mm[Hg] Ariane Wells [employer] Work Phone: [facility] 11-27-2023 12:54-0400 Body temperature 97.88 [degF] Riky Rey [facility] 11-27-2023 12:54-0400 Diastolic blood pressure 86 mm[Hg] Riky Le [facility] 11-27-2023 12:54-0400 Heart rate 78 /min Rikychristian Le [facility] 11-27-2023 12:54-0400 Respiratory rate 20 /min Rikychristian Le [facility] 11-27-2023 12:54-0400 SaO2% (BldA) [Mass fraction] 98 % Rikychristian Le [facility] 11-27-2023 12:54-0400 Systolic blood pressure 133 mm[Hg] Riky Rey [facility] Encounters Encounter Date Encounter Type Care Provider Facility Start: 06-23-2024 End: 06-23-2024 Refill Ariane Wells [employer] Work Phone: [facility] Comment on above: Yeast infection (Germaine ed Dx) Start: 06-16-2024 End: 06-16-2024 Office outpatient visit 25 minutes Ariane Wells [employer] Work Phone: [facility] Comment on above: Encounter for well w [...] 06-16-2024 End: 06-16-2024 Bamboo flowsheet Ariane Wells [employer] Work Phone: [facility] Start: 06-16-2024 End: 06-23-2024 Bamboo flowsheet Ariane Wells [employer] Work Phone: [facility] Start: 06-16-2024 End: 06-23-2024 Clinisync Result Encounter Ariane Wells [employer] Work Phone: [facility] Unsolicited Start: 06-16-2024 End: 06-16-2024 Patient encounter procedure Ariane Wells [employer] Work Phone: [facility] Start: 05-30-2024 End: 06-03-2024 Clinisync Result Encounter Generic External Data Provider [facility] Unsolicited Start: 05-30-2024 End: 06-03-2024 Clinisync Result Encounter Generic External Data Provider [facility] Unsolicited Start: 05-26-2024 End: 05-26-2024 Refill Ariane Wells [employer] Work Phone: [facility] Comment on above: Candidiasis of vagin a (Primary Dx) Start: 05-11-2024 End: 05-11-2024 Office outpatient visit 25 minutes Joann A Felter UTILITY LOCATOR-PARTY PLAN DEALER Work Phone: [facility] Comment on above: 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) Start: 05-11-2024 End: 05-11-2024 ambulatory JOANN A FELTER Not Available Start: 05-11-2024 End: 05-11-2024 Bamboo flowsheet Joann A Felter UTILITY LOCATOR-PARTY PLAN DEALER Work Phone: [facility] Start: 05-11-2024 End: 05-11-2024 Bamboo flowsheet Joann A Felter UTILITY LOCATOR-PARTY PLAN DEALER Work Phone: [facility] Start: 04-29-2024 End: 04-29-2024 Patient encounter procedure Joann A Felter UTILITY LOCATOR-PARTY PLAN DEALER Work Phone: [facility] Comment on above: Rash and other nonsp ecific skin eruption (Primary Dx) Start: 04-29-2024 End: 04-29-2024 ambulatory JOANN A FELTER Not Available Start: 04-29-2024 End: 04-29-2024 Bamboo flowsheet Joann A Felter UTILITY LOCATOR-PARTY PLAN DEALER Work Phone: [facility] Start: 04-29-2024 End: 04-29-2024 Bamboo flowsheet Joann A Felter UTILITY LOCATOR-PARTY PLAN DEALER Work Phone: [facility] Start: 03-16-2024 End: 03-16-2024 ambulatory ARIANE AICHHOLZ Not Available Start: 02-02-2024 End: 02-02-2024 ambulatory Rush Garcia MD Facility: [facility] Start: 01-15-2024 End: 01-15-2024 ambulatory ARIANE AICHHOLZ Not Available Start: 12-25-2023 End: 12-25-2023 ambulatory ARIANE AICHHOLZ Not Available Start: 11-27-2023 End: 11-27-2023 Emergency department patient visit Riky Le Facility[facility] Start: 11-27-2023 End: 11-27-2023 Emergency department patient visit Riky Le [facility] Start: 12-14-2022 End: 12-15-2022 ambulatory PARTY PLAN DEALER ARIANE AICHHOLZ Facility:[facility] Start: 12-11-2022 End: 12-12-2022 ambulatory [employer]Y PLAN DEALER ARIANE AICHHOLZ Facility:[facility] Start: 11-15-2022 End: 11-15-[address] SKY DAVIS . Facility:[facility] Start: 11-10-2022 End: 11-10-[address] QUANG LANDA . Facility:[facility] Start: 08-18-2022 End: 08-18-2022 ambulatory GABINO CARROLL . Facility:[facility] Start: 07-09-2022 End: 07-09-[address] SKY DAVIS . Facility:[facility] Start: 05-14-2022 End: 05-14-2022 ambulatory [employer]Y PLAN DEALER ARIANE AICHHOLZ Facility:[facility] Start: 05-13-2022 Encounter for preprocedural laboratory examination DR ROBERTO APONTE [facility] Start: 05-08-2022 End: 05-09-[address] ROBERTO APONTE Facility:[facility] Start: 05-08-2022 End: 05-09-2022 Encounter for preprocedural laboratory examination DR ROBERTO APONTE Facility:[facility] Start: 04-18-2022 End: 04-18-2022 ambulatory [employer]Y PLAN DEALER ARIANE AICHHOLZ Facility:[facility] Start: 04-01-2022 End: 04-02-2022 ambulatory [employer]Y PLAN DEALER ARIANE AICHHOLZ Facility:[facility] Start: 02-06-2022 End: 02-07-2022 ambulatory [employer]Y PLAN DEALER ARIANE AICHHOLZ Facility:[facility] Start: 01-31-2022 End: 02-01-2022 ambulatory AMINATA BOURGEOIS Facility:[facility] Start: 01-24-2022 ambulatory [employer]Y PLAN DEALER ARIANE AICHHOLZ Facil ity:[facility] Start: 01-09-2022 End: 01-09-2022 ambulatory GABINO CARROLL . Facility:[facility] Procedures Date Procedure Procedure Detail Performing Clinician Start: 06-16-2024 IGP,APTIMA HPV,AGE GDLN Ariane Russell [employer] Work Phone: Start: 06-16-2024 Microscopic observation [Identifier] in Cervix by Cyto stain Ariane Wells [employer] Work Phone: Start: 05-30-2024 UPPER RESPIRATORY CULTURE Generic Flight Test Mechanic al Data Provider Start: 04-29-2024 SKIN / NAIL BIOPSY Joann Owens UTILITY LOCATOR-[employer]Y PLAN DEALER Work Phone: Start: 06-20-2020 Microscopic observation [Identifier] in Cervix by Cyto stain Joann Owens UTILITY LOCATOR-PARTY PLAN DEALER Work Phone: Start: 12-04-2016 Colonoscopy Riky Le [...] 06-16-2027 Screening for malignant neoplasm of cervix [facility] Start: 01-06-2025 Urine screening for protein Diabetes: Urine Protein Screening [facility] Start: 08-10-2024 End: 08-10-2024 Patient encounter procedure 08/10/2024 3:40 PM EST Office Visit [facility] [address] [place] [id number] Joann Owens, UTILITY LOCATOR-PARTY PLAN DEALER [address] [place] [address] [facility] Start: 07-26-2024 End: 07-26-2024 Patient encounter procedure 07/26/2024 5:00 PM EST Office Visit [facility] [address] [place] [address] Ariane Wells NP [address] [place] [address] [facility] Start: 06-16-2024 End: 06-16-2025 THINPREP IMAGING PAP AND HPV DNA REFLEX HPV 16,18 THINPREP IMAGING PAP AND HPV DNA REFLEX HPV 16,18 Pathology and Cytology Routine Encounter for well woman exam with routine gynecological exam Expected: 06/16/2024 (Approximate), Expires: 06/16/2025 [facility] Comment on above: Expected: 06/16/2024 (Approximate), Expi res: 06/16/2025 Start: 06-16-2024 End: 06-16-2025 VAGINITIS (HTRX) VAGINITIS (HTRX) Lab Routine Vaginal discharge Expected: 06/16/2024 (Approximate), Expires: 06/16/2025 [facility] Work Phone: Comment on [...] DERM [address] [place] [id number] Joann Owens APRN-FORREST [address] [facility] [address] [place] [address] Granuloma annulare [facility] Comment on above: Granuloma annulare Start: 04-08-2024 Hemoglobin A1c measurement Diabetes: Hemoglobin A1C [facility] Start: 06-20-2023 Screening for malignant neoplasm of cervix [facility] Start: 2018 Screening for malignant neoplasm of cervix HPV/Cotest [facility] Start: 1998 Glaucoma screening Diabetes: Retinopathy Screening [facility] Cytology Cervical or vaginal smear or scraping study Pap smear Pathology and Cytology Routine Encounter for well woman exam with routine gynecological exam Ordered: 06/16/2024 [facility] Comment on above: Ordered: 06/16/2024 Dermatopathology exam Dermatopat hology exam Pathology and Cytology Timed Rash and other nonspecific skin eruption Release Upon Ordering for 1 Occurrences starting 04/29/2024 [facility] Work Phone: Comment on above: Release Upon Ordering for 1 Occurrences starting 04/29/2024 Immunizations Immunization Date Immunization Notes Care Provider Kelsey kenney 08-20-2021 Moderna SARS-CoV-2 Vaccination Joann Owens UTILITY LOCATOR-PARTY PLAN DEALER Work Phone: [facility] Payers Date Payer Category Payer Medicaid [id number] 2023 Unknown 2022 Medicaid [id number] 2022 Medicaid [id number] 1988 Unknown [id number] 2.16.84 0.1.174681.3.579.2.593 1988 Unknown [id number] 2.16.84 0.1.989111.3.579.2.593 1988 Unknown [id number] 2.16.84 0.1.824150.3.579.2.593 1988 Unknown [id number] 2.16.84 0.1.790959.3.579.2.593 1988 Unknown [id number] 2.16.84 0.1.183647.3.579.2.593 1988 Unknown [id number] 2.16.84 0.1.451085.3.579.2.593 1988 Unknown [id number] 2.16.84 0.1.142145.3.579.2.593 1988 Unknown [id number] 2.16.84 0.1.300876.3.579.2.593 1988 Unknown [id number] 2.16.84 0.1.739075.3.579.2.593 1988 Unknown [id number] 2.16.84 0.1.083218.3.579.2.593 1988 Unknown [id number] 2.16.84 0.1.648018.3.579.2.593 1988 Unknown [id number] 2.16.84 0.1.941893.3.579.2.593 1988 Unknown [id number] 2.16.84 0.1.570955.3.579.2.593 1988 Unknown [id number] 2.16.8 40.1.479301.3.579.2.727 1988 Unknown [id number] 2.16. 840.1.711849.3.579.2.196 1988 Unknown [id number] 2.16.84 0.1.668597.3.579.2.1259 1988 Unknown [id number] 2.16.84 0.1.786189.3.579.2.1259 1988 Unknown [id number] 2.16.84 0.1.139702.3.579.2.1259 1988 Unknown [id number] 2.16.84 0.1.125223.3.579.2.1259 1988 Unknown [id number] 2.16.84 0.1.968441.3.579.2.1259 1988 Unknown [id number] 2.16.84 0.1.980909.3.579.2.1259 1959 Unknown [id number] 1959 Unknown [id number] Social History Date Type Detail Facility Start: 02-20-2022 Tobacco smoking status Heavy t obacco smoker (finding) [facility] Tobacco smoking status [facility] Start: 03-16-2024 End: 05-11-2024 Sex Assigned At Female Braulio Juarez [facility] Start: 12-25-2023 [facility] Start: [...] Equipment Origin al Text Equipment Identifier Dates [id number] Start: 01-28-2023 End: 03-16-2025 Functional Status Date Assessment Result Facility 11-27-2023 Functional Status N/A [facility] Clinical Notes 05-14-2022 to 06-16-2024 Ariane Wells [...] nursing note reviewed. Exam conducted with a rougher operator present. Constitutional: General: She is not in [...] for cervical cancer documented in this encounter [facility] 05-11-2024 History of Present illness Narrative [...] Visit: 3 months documented in this encounter [facility] 04-29-2024 History of Present illness Narrative [...] skin eruption Right Lower Leg - Anterior [place] patches and plaques Biopsy today, see procedure [...] 14 days s/r documented in this encounter [facility] 11-27-2023 Hospital Discharge instructions Patient Education [...] to strengthen the arm. General instructions Take [id number] and prescription medicines only as told by [...] provider. Document Revised: 05/03/2022 Document Reviewed: 05/03/2022 [employer] Patient Education 2022 [employer]. Follow Up Care 11/27/2023 12:54:30 With:Georgi Pfeiffer Address: [address] [place], [place] [id number] Business (1) When:11/30/2023 15:21:31 [facility] 11-27-2023 Evaluation + Plan note Extrac gerard [...] EDT, Weight Dosing XR Shoulder Complete Right [facility]04-17-2023 NotePROCEDURE: XR ANKLE RT MIN 3 VIEWS [...] Electronically authenticated by: HAYDE VAN Date: 2022-12-16 07:21[facility]04-17-2023 NotePROCEDURE: XR KNEE RT 4V or > DATE: 12/14/2022 9:31 AM CDT COMPARISONS: None CLINICAL INDICATION: Pain of right knee joint FINDINGS: There is no evidence of fractures or other osseous abnormalities. No evidence of right knee joint effusion IMPRESSION: Right knee radiographs show no evidence of significant abnormalities. Electronically authenticated by: HAYDE VAN Date: 2022-12-16 07:17[facility]09-13-2022 NoteOPERATIVE NOTE OPERATION DATE: 05/14/2022 PRIMARY [...] to the recovery room in good condition.[facility] Diagnosis Vitamin D deficiency- Primary Type 2 diabetes mellitus without complication, with long-term current use of insulin ([facility]) Class 3 severe obesity due to excess calories without serious comorbidity with body mass index (BMI) of 40.0 to 44.9 in adult ([facility]) Muscle spasm Spasm of muscle Muscle spasm- Primary Spasm of muscle Class 3 severe obesity due to excess calories without serious comorbidity with body mass index (BMI) of 40.0 to 44.9 in adult ([facility]) Type 2 diabetes mellitus without complication, with long-term current use of insulin ([facility]) Current tobacco use Granuloma annulare Other specified erythematous condition Granuloma annulare- Primary Other specified erythematous condition Bipolar disorder, unspecified ([facility]) Bipolar disorder, unspecified Type 2 diabetes mellitus without complication, with long-term current use of insulin ([facility]) Class 3 severe obesity due to excess calories without serious comorbidity with body mass index (BMI) of 40.0 to 44.9 in adult ([facility]) Encounter for well woman exam with routine gynecological exam- Primary Vaginal discharge Leukorrhea, not specified as infective Screening for cervical cancer Screening for malignant neoplasm of the cervix Class 3 severe obesity due to excess calories without serious comorbidity with body mass index (BMI) of 40.0 to 44.9 in adult ([facility]) Generalized anxiety disorder with panic attacks ([facility]) documented in this encounter [facility]* Diagnosis Vitamin D deficiency- Primary Type 2 diabetes mellitus without complication, with long-term current use of insulin ([facility]) Class 3 severe obesity due to excess calories without serious comorbidity with body mass index (BMI) of 40.0 to 44.9 in adult ([facility] Muscle spasm Spasm of muscle Muscle spasm- Primary Spasm of muscle Class 3 severe obesity due to excess calories without serious comorbidity with body mass index (BMI) of 40.0 to 44.9 in adult ([facility]) Type 2 diabetes mellitus without complication, with long-term current use of insulin ([facility] Current tobacco use Granuloma annulare Other specified erythematous condition Granuloma annulare- Primary Other specified erythematous condition Bipolar disorder, unspecified ([facility]) Bipolar disorder, unspecified Type 2 diabetes mellitus without complication, with long-term current use of insulin ([facility]) Class 3 severe obesity due to excess calories without serious comorbidity with body mass index (BMI) of 40.0 to 44.9 in adult ([facility]) Encounter for well woman exam with routine gynecological exam- Primary Vaginal discharge Leukorrhea, not specified as infective Screening for cervical cancer Screening for malignant neoplasm of the cervix Class 3 severe obesity due to excess calories without serious comorbidity with body mass index (BMI) of 40.0 to 44.9 in adult ([facility]) Generalized anxiety disorder with panic attacks ([facility]) Yeast infection- Primary [facility] Diagnosis Rash and other nonspecific skin eruption- Primary [facility]* Diagnosis 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[facility]) Type II or unspecified type diabetes mellitus with other specified manifestations, not stated as uncontrolled [facility]* Diagnosis Candidiasis of vagina- Primary Candidiasis of vulva and vagina [facility] Narrative No data available for this section [facility] No data available for this section [facility] Summary Purpose Family History No Family History [...] Referred To Contact Diagnoses 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[facility]) Joann Owens, UTILITY LOCATOR-PARTY PLAN DEALER [address] [place] [address] Referral ID Status Reason Start Date Expiration Date V isits Requested Visits Authorized [id number] Pending Review 1 1 Additional Source Comments INFORMATION SOURCE (unrecogn ized section and content) DATE CREATED AUTHOR 12/19/2022 [facility] DATE CREATED AUTHOR AUTHOR'S ORGANIZ ATION 11/29/2023 [facility] DATE CREATED AUTHOR AUTHOR'S ORGANIZ ATION 02/13/2024 [facility] DATE CREATED AUTHOR AUTHOR'S ORGANIZ ATION 06/19/2024 [facility] dical Specialists EPIC Patient Care team informatio n (unrecognized section and content) Regional Medical Director Relationship Specialty Start Date End Date Georges Shook MD [address] [place] [phone] PCP - General Family Medicine 02/19/23 Channing Freire MD [address] [place] [address] PCP - DELANEY Still [facility] 12/01/23 Regional Medical Director Relationship Specialty Start Date End Date Georges Shook MD [address] [place] [phone] PCP - General Family Medicine 02/19/23 Channing Freire MD [address] [place] [address] PCP - NOMJagjit Still [facility] 12/01/23 Regional Medical Director Relationship Specialty Start Date End Date Georges Shook MD [address] [place] [place] [phone] PCP - General Family Medicine 02/19/23 Channing Freire MD [address] [facility] [place] [address] (Fax) PCP - NOMS Cheko [facility] 12/01/23 Regional Medical Director Relationship Specialty Start Date End Date Georges Shook MD [address] [place] [phone] PCP - General Family Medicine 02/19/23 Channing Freire MD [address] [facility] [place] [address] (Fax) PCP - NOMS Cheko [facility] 12/01/23 Regional Medical Director Relationship Specialty Start Date End Date Georges Shook MD [address] [place] [phone] PCP - General Family Medicine 02/19/23 Channing Freire MD [address] [facility] [place] [address] (Fax) PCP - NOMJagjit Still [facility] 12/01/23 Regional Medical Director Relationship Specialty Start Date End Date Georges Shook MD [address] [place] [phone] PCP - General Family [facility] 02/19/23 Regional Medical Director Relationship Specialty Start Date End Date Georges Shook MD [address] [place] [phone] PCP - General Family Medicine 02/19/23 Regional Medical Director Relationship Specialty Start Date End Date Georges Shook MD [address] [place] [phone] PCP - General Family Medicine 02/19/23 Regional Medical Director Relationship Specialty Start Date End Date Georges Shook MD [address] [place] [phone] PCP - General Family Medicine 02/19/23 Regional Medical Director Relationship Specialty Start Date End Date Georges Shook MD [address] [place] [phone] PCP - General Family Medicine 02/19/23 Channing Freire MD [address] [place] [address] PCP - NOMS Cheko [facility] 12/01/23 Reason for Visit (unrecogniz ed section and content) Reason Comments Rash Specialty Diagnoses / Procedures Referred By Contac t Referred To Contact Dermatology Diagnoses Granuloma annulare Procedures VA OFFICE/OUTPATIENT NEW HIGH MDM 60 MINUTES Ariane Wells, SHIV [address] [place] [address] Joann Owens, UTILITY LOCATOR-PARTY PLAN DEALER [address] [facility] [address] [place] [address] Referral ID Status Reason Start Date Expiration Date V isits Requested Visits Authorized [id number] Closed Specialty Services Required 03/16/2024 09/12/2024 1 [...] BASED ON THE PRIMARY CLINICAL RECORDS. [facility]. provides no warranty or guarantee of the accuracy or completeness of information in this document.
--- NOTE | 2025-04-13 11:37 | ED.GENADUL1 ---
HPI HPI - General Adult General Chief complaint: Headache Stated complaint: HEADACHE Time Seen by Provider: 04/13/25 11:32 Source: patient Mode of arrival: walk-in Limitations: no limitations History of Present Illness HPI narrative: 34-year-old female presented to the emergency department for a chief complaint of headache. It is on the right side of her head and she has had it for a week and a half but it has been getting worse the past few days. No trauma fever or stiff neck. She took Tylenol and ibuprofen but it did not seem to help much. She does not get frequent headaches. Related Data Home Medications ?Medication ?Instructions ?Recorded ?Confirmed aripiprazole 10 mg tablet 10 mg PO QDAY 02/04/23 04/13/25 Held on 04/13/25. Instructions: no insurance buspirone 10 mg tablet 10 mg PO BID 02/04/23 04/13/25 Held on 04/13/25. Instructions: no insurance calcium carbonate (Calcium 600) 600 mg PO DAILY 02/04/23 04/13/25 Held on 04/13/25. Instructions: no insurance fluoxetine 40 mg capsule 40 mg PO QDAY 02/04/23 04/13/25 Held on 04/13/25. Instructions: no insurance insulin regular hum U-500 conc 500 60 unit subcut TID 02/04/23 04/13/25 unit/mL(3 mL) subcut pen (Humulin R U-500 (Conc) Insulin Kwikpen) Held on 04/13/25. Instructions: no insurance magnesium 250 mg tablet 250 mg PO DAILY 02/04/23 04/13/25 Held on 04/13/25. Instructions: no insurance pantoprazole 40 mg tablet,delayed 40 mg PO Q12H PRN indigestion 02/04/23 04/13/25 release Held on 04/13/25. Instructions: no insurance spironolactone 50 mg tablet 50 mg PO QDAY 02/04/23 04/13/25 Held on 04/13/25. Instructions: no insurance trazodone 50 mg tablet 50 mg PO DAILY 02/04/23 04/13/25 Held on 04/13/25. Instructions: no insurance cholecalciferol (vitamin D3) 50 2,000 unit PO DAILY 02/02/24 04/13/25 mcg (2,000 unit) tablet (Vitamin D3) Held on 04/13/25. Instructions: no insurance empagliflozin 25 mg tablet 25 mg PO DAILY 02/02/24 04/13/25 (Jardiance) Held on 04/13/25. Instructions: no insurance gabapentin 100 mg capsule 100 mg PO TID 02/02/24 04/13/25 Held on 04/13/25. Instructions: no insurance metformin 500 mg tablet 500 mg PO BID 02/02/24 04/13/25 Held on 04/13/25. Instructions: no insurance Previous Rx's ?Medication ?Instructions ?Recorded ueqxefiwxdbnytr-bokfvlnzhfxbjtd-AH 10 ml PO Q6H PRN cold symptoms 06/03/24 2 mg-30 mg-10 mg/5 mL oral syrup #200 mL (Bromfed DM) Held on 04/13/25. Instructions: no insurance famotidine 20 mg tablet (Pepcid) 20 mg PO BID 4 weeks #56 tabs 11/06/24 Held on 04/13/25. Instructions: no insurance ywtwoixqjg-nbkayiubulmgh-idxfrfiy 1 cap PO Q6H PRN pain 5 days #20 04/13/25 50 mg-300 mg-40 mg capsule caps (Fioricet) Allergies Allergy/AdvReac Type Severity Reaction Status Date / Time prednisone AdvReac Severe hyperglycem Verified 04/13/25 11:22 ia Opioid HPI Opioid Management Most Recent Opioid Data: Last Pain Scale 6 Today, 12:08 Last MAR Pain Assessment Today, 12:08 Review of Systems ROS Narrative A ten point review of systems is negative except as noted above. PFSH PFSH Social History Smoking status: Current every day smoker Little interest or pleasure in doing things: not at all Feeling down, depressed, or hopeless: not at all Exam Narrative Exam Narrative: Nurses note and vital signs reviewed and patient is not hypoxic. General: The patient appears well and in no apparent distress. Patient is resting comfortably on cart. Skin: Warm, dry, no pallor noted. There is no rash noted. Head: Normocephalic, atraumatic; neck supple, no nuchal rigidity Eye: Normal conjunctiva, no drainage, EOMI. PERRL Ears, Nose, Mouth, and Throat: oral mucosa is moist. Nares patent. Cardiovascular: Regular Rate and Rhythm Respiratory: Patient is in no distress, no accessory muscle use, lungs are clear to auscultation, no wheezing, rales or rhonchi Back: non-tender GI: Soft and nontender Musculoskeletal: The patient has no evidence of calf tenderness, no pitting edema, symmetrical pulses noted bilaterally Neurological: A&O x4, normal speech; upper lower extremity strength 5 out of 5 and symmetric Psychiatric: Cooperative Constitutional Vital Signs, click to edit/add: Last Vital Signs Temp 97.8 F 04/13/25 11:22 Pulse 72 04/13/25 11:22 Resp 18 04/13/25 11:22 BP 115/90 04/13/25 11:22 Pulse Ox 98 04/13/25 11:22 O2 Del Method Room Air 04/13/25 11:22 Course Vital Signs Vital signs: Vital Signs Temperature 97.8 F 04/13/25 11:22 Pulse Rate 72 04/13/25 11:22 Respiratory Rate 18 04/13/25 11:22 Blood Pressure 115/90 04/13/25 11:22 Pulse Oximetry 98 04/13/25 11:22 Oxygen Delivery Method Room Air 04/13/25 11:22 Temperature 97.8 F 04/13/25 11:22 Pulse Rate 72 04/13/25 11:22 Respiratory Rate 18 04/13/25 11:22 Blood Pressure 115/90 04/13/25 11:22 Pulse Oximetry 98 04/13/25 11:22 Oxygen Delivery Method Room Air 04/13/25 11:22 Medical Decision Making MDM Narrative Medical decision making narrative: The patient was given IV Toradol and Benadryl and Reglan and Zofran. We have avoided steroid because she is diabetic. She feels greatly improved and is able to be discharged home with a prescription for Fioricet. At this point I do not suspect acute intracranial pathology or meningitis. Treatment diagnosis and follow-up were discussed with the patient. Differential Diagnosis Differential Diagnosis: Migraine headache, nonspecific headache Lab Data Lab results reviewed: Yes I reviewed the patient's lab results Labs: Lab Results 04/13/25 Range/Units 11:57 WBC 8.0 (4.0-11.0) 10^3/uL RBC 4.81 (4.20-5.40) 10^6/uL Hgb 13.1 (12.0-16.0) g/dL Hct 38.9 (36.0-48.0) % MCV 80.9 L (81.0-99.0) fL MCH 27.2 (26.7-34.0) pg MCHC 33.7 (29.9-35.2) g/dL RDW 12.4 (11.0-15.0) % Plt Count 247 (150-450) 10^3/uL MPV 10.7 (9.5-13.5) fL Neut % (Auto) 57.3 (43.0-75.0) % Lymph % (Auto) 34.2 (20.5-60.0) % Ford % (Auto) 6.1 (1.7-12.0) % Eos % (Auto) 1.7 (0.9-7.0) % Baso % (Auto) 0.6 (0.2-2.0) % Neut # (Auto) 4.6 (1.4-6.5) 10^3/uL Lymph # (Auto) 2.8 (1.2-3.8) 10^3/uL Ford # (Auto) 0.5 (0.3-0.8) 10^3/uL Eos # (Auto) 0.1 (0.0-0.7) 10^3/uL Baso # (Auto) 0.1 (0.0-0.1) 10^3/uL Abs Immat Gran (auto) 0.01 (0.00-0.03) 10^3/uL Imm/Tot Granulo (auto) 0.1 (0.0-0.5) % Sodium 136 (136-145) mmol/L Potassium 4.2 (3.5-5.1) mmol/L Chloride 103 (98-107) mmol/L Carbon Dioxide 28.7 (21.0-32.0) mmol/L Anion Gap 8.5 BUN 9.0 (7.0-18.0) mg/dL Creatinine 0.54 L (0.55-1.02) mg/dL Est GFR ( Amer) >60 (>=60 mL/min/1.73m^2) Est GFR (Non-Af Amer) >60 (>=60 mL/min/1.73m^2) BUN/Creatinine Ratio 16.7 Glucose 242 H (74-106) mg/dL Calcium 8.7 (8.5-10.1) mg/dL Discharge Plan Discharge Chief Complaint: Headache Clinical Impression: Headache Patient Disposition: Home, Self-Care Time of Disposition Decision: 14:06 Condition: Good Mode of Transportation: Private Vehicle Prescriptions / Home Meds: New nxizttvnon-cqqloejkbzkzi-bkfm [Fioricet] 50-300-40 mg capsule 1 cap PO Q6H PRN (Reason: pain) 5 Days Qty: 20 0RF No Action aripiprazole 10 mg tablet 10 mg PO QDAY buspirone 10 mg tablet 10 mg PO BID trazodone 50 mg tablet 50 mg PO DAILY fluoxetine 40 mg capsule 40 mg PO QDAY spironolactone 50 mg tablet 50 mg PO QDAY pantoprazole 40 mg tablet,delayed release (DR/EC) 40 mg PO Q12H PRN (Reason: indigestion) magnesium 250 mg tablet 250 mg PO DAILY calcium carbonate [Calcium 600] 600 mg calcium (1,500 mg) tablet 600 mg PO DAILY Humulin R U-500 (Conc) Kwikpen 500 unit/mL (3 mL) insulin pen 60 unit SUBCUT TID Rx Instructions: with sliding scale Jardiance 25 mg tablet 25 mg PO DAILY metformin 500 mg tablet 500 mg PO BID cholecalciferol (vitamin D3) [Vitamin D3] 50 mcg (2,000 unit) tablet 2,000 unit PO DAILY gabapentin 100 mg capsule 100 mg PO TID ofcsxtmfjeohjyi-aysssxlwb-ZQ [Bromfed DM] 2-30-10 mg/5 mL syrup 10 ml PO Q6H PRN (Reason: cold symptoms) Qty: 200 0RF famotidine [Pepcid] 20 mg tablet 20 mg PO BID 28 Days Qty: 56 0RF Print Language: Gibraltarian Instructions: Acute Headache (ED) Referrals: Ariane Wells NP [Primary Care Provider, Family Practice] - 1 week
[2025-04-13] MEDS: 0.9 % SODIUM CHLORIDE 1,000 ML 1000 ML IV (12:04)
[2025-04-13] MEDS: DIPHENHYDRAMINE HCL 50 MG/ML VIAL 25 MG IVP (12:07)
[2025-04-13] MEDS: KETOROLAC TROMETHAMINE 60 MG/2 ML VIAL IM (12:08)
[2025-04-13 12:11] LABS: Hematocrit 38.9 % (36.0-48.0); Hemoglobin 13.1 g/dL (12.0-16.0); Immature Granulocytes Abs Auto 0.01 10^3/uL (0.00-0.03); Immature Granulocytes Pct Auto 0.1 % (0.0-0.5); Lymphocytes Absolute Auto 2.8 10^3/uL (1.2-3.8); Mean Corpuscular HGB Conc 33.7 g/dL (29.9-35.2); Mean Corpuscular Hemoglobin 27.2 pg (26.7-34.0); Mean Corpuscular Volume 80.9 fL (81.0-99.0); Platelet Count 247 10^3/uL (150-450); Red Blood Count 4.81 10^6/uL (4.20-5.40); White Blood Count 8.0 10^3/uL (4.0-11.0)
[2025-04-13] MEDS: METOCLOPRAMIDE HCL 10 MG/2 ML VIAL IVP (12:12)
[2025-04-13 12:20] LABS: Anion Gap 8.5; Blood Urea Nitrogen 9.0 mg/dL (7.0-18.0); Calcium 8.7 mg/dL (8.5-10.1); Carbon Dioxide 28.7 mmol/L (21.0-32.0); Chloride 103 mmol/L (98-107); Estimated GFR (African America >60 (>=60 mL/min/1.73m^2); Estimated GFR (Non-African Ame >60 (>=60 mL/min/1.73m^2); Glucose 242 mg/dL (74-106); Potassium 4.2 mmol/L (3.5-5.1); Sodium 136 mmol/L (136-145)
--- NOTE | 2025-04-13 13:36 | PC.NURSE ---
pt states her pain is much better, rating it a 3/10.
[2025-04-13 14:37] VITALS: BP 106/70; PULSE 56; O2SAT 99
== END 2025-04-13 14:42 | disposition home or self-care (01) ==
PROVIDERS: Emergency Provider Emergency Medicine; PCP Nurse Practitioner
DX: R51.9 Headache, unspecified (principal)
CPT/HCPCS: 36415; 80048; 85025; 96372; 96374; 96375; 99284; J1200; J1885; J2405; J2765

== ENCOUNTER 2025-06-21 07:54 | Emergency (ER) | payer MEDICAID, SELFPAY ==
--- OUTSIDE RECORDS SUMMARY | 2025-06-08 10:06 | XMS_ITS | Continuity of Care Document ---
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 Primary Care Provider Ariane Wells NP-C Attending Provider Care Teams Patient Care Team Team Status: Active Member Role Status Dates Ariane Wells NP-Walter Primary Care Provider Active Patient Care Team Team Status: Inactive Member Role Status Dates Ariane Wells NP-C Primary Care Provider Active Start: June 08, 2025 End: June 08, 2025DARSHANA AponteCAttending ProviderActiveStart: June 08, 2025 End: June 08, 2025 Chief Complaint and Reason for Visit Chief Complaint Admit Date follow up from cancelled appointment Oct benoit 2024 1:15pm Reason for Visit Admit Date ASHA (generalized anxiety disorder) Octob er 2024 1:15pm Major depressive disorder, recurrent, mi ld June 08, 2025 1:15pm Nicotine dependence June 08, 2025 1: 15pm Type 2 diabetes mellitus with insulin th erapy June 08, 2025 1:15pm Vitamin D deficiency June 08, 2025 1 :15pm Allergies, Adverse Reactions, Alerts Allergen Type Severity Reaction Last Updated Verified Status prednisone Allergy Unknown Shakiness, shaking December 09, 2020 9:24am No Active Social History Smoking Status Status Start Date End Date Date of Observa tion Smokes tobacco daily (finding) May 09, 2025 5:12pm Observation Status Observation Response Date of Response Legal Sex Female (finding) [facility] 1989 Family History Relationship Condition Age at Onset Recorded Date/T kim Not Specified No pertinent family history Unknown brotherHypertensionUnknownfatherDeceasedUnknownHypertensionUnknownHeart disease UnknownDiabetes mellitusUnknown Problems Active Problems Medical Problem Onset Date Status Granuloma annulare Unknown Active Nicotine dependence Unknown Active Insomnia Unknown Active BRENT (obstructive sleep apnea) Unknown Ac tive ASHA (generalized anxiety disorder) Unknown Active Dysfunction of both eustachian tubes Unknown Active Type 2 diabetes mellitus with insulin therapy Un known Active Bipolar disorder Unknown Active Acquired deformity of right ankle Unknown Active Umbilical hernia Unknown Active DDD (degenerative disc disease), lumbar Unknown Active Morbid obesity due to excess calories Unknown Active Major depressive disorder, recurrent, mild Unkno wn Active Hx of adenoidectomy Unknown Active Hx of tonsillectomy Unknown Active ADHD (attention deficit hyperactivity disorder) Unknown Active Conductive hearing loss Unknown Active Vitamin D deficiency Unknown Active Medications Medication Status Dose Units Route Directions Qty Days St art Date Stop Date End Date Instructions Adherence Trazodone 50 mg tablet Discontinued 50 MG PO Erin y January 06, 2020 12:00amSept2024 6:02pmOndansetron Hcl 4 mg tablet Xgtphy3RPSFMh Directed as needed for Nauseay 2019 12:00amUnknown Pantoprazole 40 mg tablet,delayed release (DR/EC)Rygalt15WWBWTvjpfNgi 2019 12:00amUnknownFluoxetine 10 mg fzhmqasYprpfwjrrxji39PTXUNozchErm 2019 12:00[facility] 2024 6:00pmFluoxetine 20 mg vejvgpbNyfxqo72BYIKGnizlRhb 2019 12:00amUnknownMetformin 500 mg tablet extended release 24 arExbpbw3EBZ POTwice dailyMay 2019 12:00amUnknownCalcium Carbonate (Calcium 600) 600 mg calcium (1,500 mg) KlzaqgMnfhfbummrbj426QSKAOgbazGly 2019 12:00amSeptember 2024 5:58pmBaclofen 10 mg RdhkwnTpznrzsvepzh38IMXWQy DirectedMay 2019 12:00[facility] 2024 5:58pmMagnesium 250 mg NtuaxkGfqkqw429BCYUHowriBpw 2019 12:00amUnknownCholecalciferol (Vitamin D3) (Vitamin D3) 50 mcg (2,000 unit) PfnaigQfarbtufvyrp7156JEUQIABqfsoExq 2019 12:00amSeptember 2024 5:58pmFluoxetine 40 mg pdfwomjUwxhon97DQPHVjfpxNjyppocjn 2024 12:00am UnknownCyclobenzaprine 10 mg xyuuwlLbulgz90JQYFFsxza daily as neededSept2024 12:00amUnknownTrazodone 50 mg ucurxrPpkdzq059YPNSIzxnf at bedtime as neededSeptember 2024 12:00amUnknownTizanidine 4 mg henjsdPosjuw5ASMTBgqnm daily as neededSept2024 12:00amUnknownBuspirone 10 mg vbukyhNfrlsa83 MGPOThree times dailySept2024 12:00amUnknownPravastatin 20 mg tablet Ruwuyb12WTOBRmozv at bedtimeSept2024 12:00amUnknownGabapentin 100 mg oytnmdfBexvzm607NZAQPeebh times dailySeptember 2024 12:00amUnknown Albuterol Sulfate 90 mcg/actuation HFA aerosol favvhhgFxghvr5JXDWYQJHKCMXPLTWMWF 4-6 HOURS as neededSept2024 12:00amUnknownSpironolactone (Aldactone) 50 mg rfwyixAfewuh20CCSZImbzaXdarzxxas 2024 12:00amUnknownAripiprazole 15 mg wookpiSgvjtr55VXAHSzaetSivdulhkt 2024 12:00amUnknownCholecalciferol (Vitamin D3) 125 mcg (5,000 unit) hregvkCdtqaw208ZIUPMNmdmzYjaxjvbtk 2024 12:00amUnknownEmpagliflozin (Jardiance) 25 mg qvqzpvRkcbje13FBBPLwbsqMwieeoqap 19th, 2025 12:00amUnknown Vital Signs Vital Reading Result Reference Range Collection Date/Time Height 63 [in_i] June 08, 2025 1:21eySmychf620.98 kgOctober 2024 1:22pmBody Temperature 98.5 [degF]97.6-99.0October 2025 1:22pmHeart Rate66 /tso01-359IwrxkpxJune 08, 2025 1:22pmRespiratory rate18 /rmd16-35TjjzmvyJune 08, 2025 1:22pmOxygen saturation by Pulse zuxhsfxs40 %95-100June 08, 2025 1:22pmBP Jufaeeyv139 mm[Hg]100-140 June 08, 2025 1:22pmBP Pzowxuquz06 mm[Hg]60-100June 08, 2025 1:22pmBMI (Body Mass Index)40.6 kg/h6ChvcplxJune 08, 2025 1:22pm Advance Directives Advance Directive Response Recorded Date/ Time Advance Directives No May 5:12pm Insurance Providers Guarantor Johnson Vera Address [address] [place], [place] [address]Contact Info.Home Phone: Payer Policy Id Subscriber's Name Subscriber Id Effectiv e Date Expiration Date [employer] [id number] Johnson Vera [id number] [place] [id number] Khalif [id number] Encounters Encounter Location(s) Arrival/Admit Date Discharge/Depart Date Provider(s) Departed Physician/Prov ider Office Visit -[facility] Family [facility] [place] June 08, 2025 1:15pm June 08, 2025 2:05pm DARSHANA AponteC Recent Diagnosis Onset Date Admit Date ASHA (generalized anxiety disorder) Unknown June 08, 2025 1:15pm Major depressive disorder, recurrent, mild Unkno wn June 08, 2025 1:15pm Nicotine dependence Unknown June 08, 2025 1:15pm Type 2 diabetes mellitus with insulin therapy Un known June 08, 2025 1:15pm Vitamin D deficiency Unknown June 1:15pm Assessments Diagnosis Onset Date Resolution Status Admit Date ASHA (generalized anxiety disorder) acuteJune 08, 2025 1:15pmMajor depressive disorder, recurrent, mildacute June 08, 2025 1:15pmNicotine dependenceacuteJune 08, 2025 1:15pmType 2 diabetes mellitus with insulin therapyacuteJune 08, 2025 1:15pmVitamin D deficiencyacuteJune 08, 2025 1:15pm Plan of Treatment Author Ariane Wells [facility] 20[facility] 6:30amCheck blood sugars daily, notify the office if <70 or > 200. Take medications (pills or insulin) as directed. Monitor for s/s of low blood sugar (sweaty, dizziness, nausea, vomiting, or shakiness). Watch for increase thirst, urination, and appetite as these can be signs of high blood sugar. Inspect your feet frequently monitor for open wounds, wear proper fitting shoes as well. Pt should attempt to remain as physical active as chronic conditions allow, as well as trying to follow a diet lower in carbohydrates, and simple sugars. was under the care of Endo, does not look as though has been there in some time a1c: The patient has been advised of the risks of continued smoking: stroke, [place], all forms of cancer, lung disease, and . Options for quitting: cold turkey, hypnosis, acupuncture, nicotine replacement meds (gum, lozenges, and patches), as well as oral meds: buproprion or varenicline . At this time pt is encouraged to evaluate their goals for wanting to quit smoking, and reach out to provider when ready to start this process Future Tests Future scheduled test information is unavailable Pending Tests Test Name Ordered Date Scheduled Date Comprehensive Metabolic Panel June 08, 2025 6:28am Future Visits Future appointment information is unavailable Referrals to Other Providers Referral information is unavailable Future Procedures Procedure Name Ordered Date Scheduled Date Dipstick and Microscopic June 08, 2025 6:28a m Complete Blood Count Auto DiffOctober 2024 6:28amLipid PanelOct2024 6:28amMagnesiumOctober 2024 6:28amThyroid Stimulating HormoneOct2024 6:28amVitamin D 25 Hydroxy TotalOctober 2024 6:28amAMB POC Hgb Q7LWpvbouy2024 6:29amAMB POC Ur Microalb/Creat RatOctober 2024 6:28am Future Medications Future medication information is unavailable Patient Instructions Patient instructions are unavailable Hospital Discharge Instructions Ambulatory Orders* AMB POC Hgb A1C Time Frame: 06/08/25, Location: Determined By Patient
--- OUTSIDE RECORDS SUMMARY | 2025-06-21 08:03 | XMS_ITS | CCD ---
Author Organization [facility] Care Team Providers Care Equipment Worker Name Role Phone AICHHOLZ, ELECTRICAL DRAFTER ARIANE Attending Unavailable AICHHOLZ, ELECTRICAL DRAFTER ARIANE Admitting Unavailable AICHHOLZ, ELECTRICAL DRAFTER ARIANE Primary Care Unavailable JOSE EDUARDO RIVERS V Consulting Unavailable AICHHOLZ, ELECTRICAL DRAFTER ARIANE Consulting Unavailable TIMMIS, DR MEJIA Consulting Unavailable AICHHOLZ, ELECTRICAL DRAFTER ARIANE Primary Care Unavailable TIMMIS, DR MEJIA Attending Unavailable TIMMIS, DR MEJIA Admitting Unavailable MAGDI RBIGGS Consulting Unavailable PAY ., DR SWANSON Admitting Unavailable PAY ., DR SWANSON Consulting Unavailable AICHHOLZ, ELECTRICAL DRAFTER ARIANE Primary Care Unavailable PAY ., DR SWANSON Attending Unavailable AICHHOLZ, ELECTRICAL DRAFTER ARIANE Primary Care Unavailable REINECK, DR KLAUDIA Kay Attending Unavailabl e REINECK, DR KLAUDIA Kay Admitting Unavailabl e REINECK, DR KLAUDIA Kay Consulting Unavailabl e JEYSON BLANTON Consulting Unavailable AICHHOLZ, ELECTRICAL DRAFTER ARIANE Primary Care Unavailable GLEN .GABINO Attending Unavailable GLEN ., GABINO Admitting Unavailable AICHHOLZ, ELECTRICAL DRAFTER ARIANE Primary Care Unavailable JOSE EDUARDO RIVERS V Consulting Unavailable JEYSON BLANTON Consulting Unavailable GLEN .GABINO Consulting Unavailable PAY ., DR SWANSON Admitting Unavailable PAY ., DR SWANSON Consulting Unavailable AICHHOLZ, ELECTRICAL DRAFTER ARIANE Primary Care Unavailable PAY ., DR SWANSON Attending Unavailable GERALDINE LAZAR Consulting Unavailable HAY ., DR DEL RIO Attending Unavailable HAY ., DR DEL RIO Admitting Unavailable AICHHOLZ, ELECTRICAL DRAFTER ARIANE Primary Care Unavailable HAY ., DR DEL RIO Consulting Unavailable GLEN ., GABINO Attending Unavailable GLEN ., GABINO Admitting Unavailable AICHHOLZ, ELECTRICAL DRAFTER ARIANE Primary Care Unavailable DONTRELL DIAZ Consulting Unavailable GLEN ., GABINO Consulting Unavailable JOSE EDUARDO RHODES Unavailable AICHHOLZ, ELECTRICAL DRAFTER ARIANE Referring Unavailable AICHHOLZ, ELECTRICAL DRAFTER ARIANE Primary Care Unavailable YUKI, AHMAD Attending Unavailable YUKI, AHMAD Admitting Unavailable YUKI, AHMAD Consulting Unavailable AICHHOLZ, ELECTRICAL DRAFTER ARIANE Consulting Unavailable AICHHOLZ, ELECTRICAL DRAFTER ARIANE Attending Unavailable AICHHOLZ, ELECTRICAL DRAFTER ARIANE Admitting Unavailable AICHHOLZ, ELECTRICAL DRAFTER ARIANE Primary Care Unavailable HAYDE VAN Consulting Unavailable AICHHOLZ, ELECTRICAL DRAFTER ARIANE Consulting Unavailable AICHHOLZ, ELECTRICAL DRAFTER ARIANE Attending Unavailable AICHHOLZ, ELECTRICAL DRAFTER ARIANE Admitting Unavailable AICHHOLZ, ELECTRICAL DRAFTER ARIANE Primary Care Unavailable AMINATA BOURGEOIS Attending Unavailable KB, AMINATA Admitting Unavailable JEYSON BLANTON Consulting Unavailable AICHHOLZ, ELECTRICAL DRAFTER ARIANE Primary Care Unavailable BK, AMINATA Consulting Unavailable AICHHOLZ, ELECTRICAL DRAFTER ARIANE Primary Care Unavailable TIMMIS, DR MEJIA Consulting Unavailable TIMMIS, DR MEJIA Attending Unavailable TIMMIS, DR MEJIA Admitting Unavailable ELIDA COWAN Consulting Unava ilable ARIANE WELLS Primary Care Physician Riky Le Attending Unavailable Jose LEUNG, Rush Reid Attending Unavailable Georges Shook MD Primary Care Provider Channing Freire MD Unavailable RUSSELL, ARIANE Attending Unavailable AICHHOLZ, ARIANE Attending Unavailable AICHHOLZ, ARIANE Attending Unavailable JOANN OWENS Attending Unavailable AICHHOLZ, ARIANE Referring Unavailable JOANN OWENS Attending Unavailable AICHHOLZ, ARIANE Attending Unavailable Aichholz ICING COATER-CAriane Primary Care Provider [phone] Russell ICING COATERAriane Canales Attending Provider Allergies Allergy ClassificationReported Allergen(s)Allergy TypeDate of OnsetReaction(s) Facility (2 sources)predniSONE; Translations: [predniSONE]Drug Pawogjh98-59-4915Dkx [facility] Repository (1 source)predniSONE; Translations: [prednisone]Drug Ctoenff39-04-1754Imyrsil speech (finding), Tremor (finding)[facility] [place] (12 sources)PrednisonePropensity to adverse wrypubxlq66-34-9425[facility] Work Phone: Medications Current Medications MedicationDrug Class(es)DatesSig (Normalized)Sig (Original)[id number] 200 actuat albuterol 0.09 mg/actuat metered dose inhaler (13 sources)beta2-Adrenergic AgonistStart: 33-66-9727qxqh 1 puff(s) by inhalation every four to six hours as neededtake 2 puff(s) by inhalation every six hours for wheezingalbuterol HFA 90 mcg/act inhaler Inhale 2 puffs every 6 (six) hours if needed for shortness of breath or wheezing ActiveARIPiprazole 15 mg oral tablet (14 sources)Atypical AntipsychoticStart: 46-53-6162fejo 1 tablet by mouth once dailyStart: 14-10-1595ncgc 1 tablet by mouth once dailyARIPiprazole (Abilify) 15 MG tablet Take 15 mg by mouth Daily 06/03/2023 ActiveStart: 91-45-2211dnhj 1 tablet by mouth once dailyaripiprazole 5 mg Tab 5 mg = 1 tab(s), Oral, Daily, Refills(s) 0 Start Date: 01/25/20 Status: Orderedbetamethasone 1 mg/ml topical cream (14 sources)CorticosteroidStart: 85-67-4063rxbwueropikjg valerate (Valisone) 0.1 % cream Indications: 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CMS/HCC) Apply to affected areas, up to twice a day when flared, do not use one the face, groin, or underarms, 30 day supply 45 g 3 05/18/2024 ActiveStart: 05-11-2024 betamethasone dipropionate (Diprolene) 0.05 % ointment Indications: 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CMS/HCC) Apply to affected areas, up to twice a day when flared, do not use one the face, groin, or underarms, 30 day supply 45 g 3 05/11/2024 ActivebusPIRone hydrochloride 10 mg oral tablet (15 sources)Start: 45-09-5473psvx 1 tablet by mouth three times dailyStart: 06-03-2023 End: 93-68-0423bagn 1 tablet by mouth in the morning, then take 1 tablet by mouth in the evening, then take 1 tablet by mouth at bedtimebusPIRone (Buspar) 10 MG tablet Indications: Generalized anxiety disorder with panic attacks (CMS/HCC) Take 1 tablet (10 mg) by mouth in the morning and 1 tablet (10 mg) in the evening and 1 tablet (10 mg) before bedtime. 90 tablet 2 06/16/2024 07/16/2024 ActiveStart: 38-33-2114zcpUIGaes Refills(s) 0 Start Date: 02/06/22 Status: OrderedCalcium (1 source)Phosphate Binder, CalciumStart: 15-11-1271tkuv 1 tablet by mouth once dailyCalcium 600+D 1 tab, Oral, Daily, Refill(s) 0 Start Date: 11/30/19 Status: Orderedcholecalciferol 0.125 mg oral tablet (2 sources)Vitamin DStart: 22-22-4986kdur 1 tablet by mouth once dailyStart: 01-06-2020 End: 55-33-4595sygv 1 tablet by mouth once dailyCholecalciferol (Vitamin D3) (Vitamin D3) 50 mcg (2,000 unit) Tablet Discontinued 2000 UNIT PO Daily January 06, 2020 12:00am May 20, 2025 5:58pmclobetasol propionate 0.5 mg/ml topical cream (12 sources)CorticosteroidStart: 26-34-2120mzhrcbanlb (Temovate) 0.05 % cream Indications: Granuloma annulare Apply topically Daily Apply to affected area once a day for up to 8 weeks. No use on face 45 g 01/15/2024 Activeclotrimazole 10 mg/ml vaginal cream (1 source)Azole AntifungalStart: 05-26-2024 End: 53-36-6523pxoumpwjyuus (Lotrimin) 1 % vaginal cream Indications: Candidiasis of vagina Insert 1 applicator into the vagina in the evening for 7 days 45 g 05/26/2024 06/02/2024 ActiveContinuous Glucose Sensor (FreeStyle Ksenia 2 Sensor) misc (12 sources)Start: 66-89-0328Vovdukxorc Glucose Sensor (FreeStyle Ksenia 2 Sensor) misc CHANGE SENSOR EVERY 14 DAYS 04/03/2023 Activecyclobenzaprine hydrochloride 10 mg oral tablet (11 sources)Muscle RelaxantStart: 16-38-9647eqqo 1 tablet by mouth twice daily as neededStart: 54-43-2346xhnz 1 tablet by mouth once, then take 0.5-1 tablets by mouth every twelve hourscyclobenzaprine (Flexeril) 10 MG tablet Indications: Muscle spasm Take 1 tablet (10 mg) by mouth every 12 (twelve) hours if needed for muscle spasms for up to 15 days May take 1/2-1 pill every 12 hours 30 tablet 12/25/2023 Activeempagliflozin 25 mg oral tablet (14 sources)Sodium-Glucose Cotransporter 2 InhibitorStart: 64-01-0667dazp 1 tablet by mouth once dailyStart: 40-93-6259Iukeutoei Refills(s) 0 Start Date: 02/06/22 Status: Orderedtake 25 mg by mouth once dailyJardiance 25 MG Take 25 mg by mouth Daily Activefluconazole 150 mg oral tablet (1 source)Azole AntifungalStart: 33-84-7340diamlaozvyn (Diflucan) 150 MG tablet Indications: Yeast infection Take one dose every 3 days for 3 doses 3 tablet 06/23/2024 ActiveFLUoxetine 40 mg oral capsule (20 sources)Serotonin Reuptake InhibitorStart: 73-72-2057nfcz 1 capsule by mouth once dailyStart: 03-19-9045ohwy 1 capsule by mouth once dailyFLUoxetine 40 mg Cap 40 mg = 1 cap(s), Oral, Daily, Refills(s) 0 Start Date: 02/20/22 Status: OrderedStart: 69-09-4457nqql 1 capsule by mouth once dailyFLUoxetine (PROzac) 20 MG capsule Take 20 mg by mouth Daily 06/03/2023 ActiveStart: 01-06-2020 End: 06-41-2587agrx 1 capsule by mouth once dailyFluoxetine 10 mg capsule Discontinued 10 MG PO Daily January 06, 2020 12:00am May 20, 2025 6:00pm gabapentin 100 mg oral capsule (13 sources)Anti-epileptic AgentStart: 07-64-0241xowm 1 capsule by mouth three times dailyStart: 80-34-8426ncij 1 capsule by mouth in the morning, then take 1 capsule by mouth in the evening, then take 1 capsule by mouth at bedtime gabapentin (Neurontin) 100 MG capsule Take 100 mg by mouth in the morning and 100 mg in the eveningand 100 mg before bedtime. 02/02/2024 ActiveHumuLIN R KwikPen (Concentrated) (1 source)Start: 59-65-2817XnluXKZ R KwikPen (Concentrated) Refills(s) 0 Start Date: 02/06/22 Status: Ordered3 ml insulin lispro 100 unt/ml pen injector (12 sources)Insulin Analoginsulin lispro (HumaLOG KWIKPEN) 100 UNIT/ML injection as directed Subcutaneous Active3 ml insulin, regular, human 500 unt/ml pen injector (12 sources)InsulinStart: 34-12-5348AdnsNNZ R U-500 KWIKPEN 500 UNIT/ML CONCENTRATED injection INJECT 80 UNITS TWICE A DAY PLUS ISS 15>150 (EXPECT DAILY DOSE 225 UNITS) 11/01/2023 ActiveMagnesium (13 sources)Start: 80-76-8839xahp 1 tablet by mouth once dailymagnesium 250 MG tablet 1 (one) time each day at the same time Activemagnesium oxide 250 mg oral tablet (1 source)Start: 62-22-7392mksi 1 tablet by mouth once dailymagnesium oxide 250 mg oral tablet 250 mg = 1 tab(s), Oral, Daily, Refills(s) 0 Start Date: 11/30/19 Status: Olnniax45 hr metFORMIN hydrochloride 500 mg extended release oral tablet (14 sources)BiguanideStart: 99-80-1415bsdn 1 tablet by mouth twice dailyStart: 82-28-3215mbis 2 tablets by mouth twice dailyGlucophage XR 500 mg Tab-ER 1,000 mg = 2 tab(s), Oral, BID, Refills(s) 0 Start Date: 11/30/19 Status: Orderedtake 1 tablet by mouth every twenty-four hours in the morningmetFORMIN XR (Glucophage- XR) 500 MG 24 hr tablet Take 1,000 mg by mouth in the morning and 1,000 mgbefore bedtime. Activemethocarbamol 750 mg oral tablet (1 source)Muscle RelaxantStart: 11-27-2023 End: 62-18-2896tewb 1 tablet by mouth three times dailyRobaxin-750 oral tablet 1,500 mg = 2 tab(s), Oral, TID, X 3 day(s), # 18 tab(s), Refills(s) 0, Pharmacy: [facility], 160, cm, 11/27/23 12:59:00 EDT, Height/Length Dosing, 114.1, kg, 11/27/23 12:59:00 EDT, Weight Dosing Start Date: 11/27/23 Stop Date: 11/30/23 Status: Orderednaproxen 500 mg oral tablet (1 source)Nonsteroidal Anti-inflammatory DrugStart: 68-65-2571skyl 1 tablet by mouth twice daily as needed for painNaprosyn 500 mg Tab 500 mg = 1 tab(s), Oral, BID, PRN for pain, # 20 tab(s), Refills(s) 0, Pharmacy: [facility], 160, cm, 11/27/23 12:59:00 EDT, Height/Length Dosing, 114.1, kg, 11/27/23 12: 59:00 EDT, Weight Dosing Start Date: 11/27/23 Status: Orderedondansetron 4 mg oral tablet (1 source)Serotonin-3 Receptor AntagonistStart: 65-84-1295qmffvbbffxnz 40 mg delayed release oral tablet (14 sources)Proton Pump InhibitorStart: 43-24-9691miea 1 tablet by mouth once dailypravastatin sodium 20 mg oral tablet (13 sources)HMG-CoA Reductase InhibitorStart: 58-42-5057vhrz 1 tablet by mouth once daily at bedtimeStart: 92-77-2386zkbt 1 tablet by mouth in the evening pravastatin (Pravachol) 20 MG tablet Take 20 mg by mouth in the evening 01/28/2023 Activespironolactone 50 mg oral tablet (13 sources)Aldosterone AntagonistStart: 93-43-2412ghij 1 tablet by mouth once dailytake 1 tablet by mouth once dailyspironolactone (Aldactone) 50 MG tablet Take 50 mg by mouth Daily ActivetiZANidine 4 mg oral tablet (13 sources)Central alpha-2 Adrenergic AgonistStart: 59-04-0407inyp 1 tablet by mouth twice daily as neededStart: 09-08-8982dcHMQwnhlg (Zanaflex) 4 MG tablet Take 4 mg by mouth 03/03/2024 ActivetraZODone hydrochloride 50 mg oral tablet (15 sources)Serotonin Reuptake InhibitorStart: 73-83-4223ejlw 2 tablets by mouth once daily at bedtime as neededStart: 01-06-2020 End: 79-78-7613uueq 1 tablet by mouth once dailyTrazodone 50 mg tablet Discontinued 50 MG PO Daily January 06, 2020 12:00am May 20, 2025 6:02pm Start: 58-29-9775quir 2 tablets by mouth once daily at bedtimetraZODONE 50 mg Tab 100 mg = 2 tab(s), Oral, Once a day (at bedtime), Refills(s) 0 Start Date: 11/30/19 Status: Ordered Completed/Discontinued Medications MedicationDrug Class(es)DatesSig (Normalized)Sig (Original)baclofen 10 mg oral tablet (1 source)gamma-Aminobutyric Acid-ergic AgonistStart: 01-06-2020 End: 30-96-7308Leersmdl 10 mg Tablet Discontinued 10 MG PO As Directed January 06, 2020 12:00am May 20, 2025 5:58pmcalcium carbonate 1500 mg oral tablet (1 source)Start: 01-06-2020 End: 96-02-3784vecp 1 tablet by mouth once dailyCalcium Carbonate (Calcium 600) 600 mg calcium (1,500 mg) Tablet Discontinued 600 MG PO Daily January 06, 2020 12:00am May 20, 2025 5:58pmVitamin D3 2000 intl units oral tablet (1 source)Start: 86-36-4001rhap 1 tablet by mouth once dailyVitamin D3 2000 intl units oral tablet 2,000 International_Unit = 1 tab(s), Oral, Daily, Refills(s)0 Start Date: 11/30/19 Status: Ordered Problems Active Problems Problem ClassificationProblemDateDocumented DateEpisodic/ChronicAbdominal hernia (18 sources)Umbilical hernia without obstruction or gangrene; Translations: [Umbilical hernia]Onset: 28-75-7238PxsbemkvGyykmge disorders (9 sources)Anxiety disorder, unspecified; Translations: [Generalized anxiety disorder]Onset: 34-19-5504FojssmnPrlhmexsr-deficit, conduct, and disruptive behavior disorders (14 sources)Attention deficit hyperactivity disorder; Translations: [Attention- deficit hyperactivity disorder, unspecified type]Onset: ChronicDiabetes mellitus with complications (6 sources)Type 2 diabetes mellitus with hyperglycemia; 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]Onset: 03-83-8310RwdjivnDwhhsnwk mellitus without complication (20 sources)Type 2 diabetes mellitus without complications; Translations: [Diabetes mellitus]Onset: 12-16-2022 Resolved: 652312-38-0619RfgsetqQjrqab infertility (13 sources)Female infertility; Translations: [Female infertility, unspecified] Onset: 481785-61-5681LtaapqcHhlrannadbec diseases of female pelvic organs (4 sources)Abscess of vulva; Translations: [ABSCESS OF VULVA]Onset: 11-10-2022 EpisodicJoint disorders and dislocations; trauma-related (1 source)Unspecified internal derangement of right knee; Translations: [UNS INTERNAL DERANGEMENT RIGHT KNEE]Onset: 98-36-7492XqtwcwbAkzn disorders (20 sources)Bipolar disorder; Translations: [Depressive disorder]Onset: 665766-29-4535EjlpghdGulprkk (9 sources)Candidiasis of vagina; Translations: [Candidiasis of vagina]Onset: 010814-74-7914RoipfemmFhigbqmkbos deficiencies (20 sources)Vitamin D deficiency, unspecified; Translations: [Vitamin D deficiency]Onset: 65-97-4652UwavmhcHkpyv acquired deformities (1 source)Acquired deformity of ankle AND/OR jqnv73-38-0050RvyqwevwFxkpt acquired deformities (13 sources)Acquired deformity of right ankle; Translations: [Unspecified acquired deformity of right lower leg]Onset: 599585-55-4657XrlsyyqhDudpd aftercare (1 source)Other fci (current) drug therapy; Translations: [OTH CARE ASSOCIATE 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 THERAPY]Onset: 13-14-1956YrrnzrtqHnjiu aftercare (1 source)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; Translations: [CARE ASSOCIATE USE ORAL 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 DX]Onset: 95-37-5138BmqywxktJdzds aftercare (1 source)USP (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; Translations: [FCI CURRENT USE OF INSULIN]Onset: 40-61-2645OxosfcgxDgtbm ear and sense organ disorders (12 sources)Conductive hearing loss, bilateral; Translations: [Conductive hearing loss, bilateral]Onset: 196043-71-0349XmbsvyaZkhoz ear and sense organ disorders (1 source)Conductive hearing loss; Translations: [Conductive hearing loss, unspecified]11-90-1450HkwssovLpoaq endocrine disorders (1 source)Polycystic ovarian syndrome; Translations: [POLYCYSTIC OVARIAN SYNDROME]Onset: 59-38-6861TybpahbMqwef endocrine disorders (13 sources)Polycystic ovary syndrome; Translations: [Polycystic ovarian syndrome]Onset: 405454-96-1573GowacyqGyesi female genital disorders (4 sources)Vaginal discharge; Translations: [Other specified noninflammatory disorders of vagina]Onset: 687976-32-2579WedutpyfWtlcp inflammatory condition of skin (13 sources)Granuloma annulare; Translations: [Granuloma annulare]Onset: 725068-29-5945UrbspcrlGdhbg non-traumatic joint disorders (4 sources)Pain in right knee; Translations: [PAIN IN RIGHT KNEE]Onset: 27-55-3090UxadwafhIfgkl non-traumatic joint disorders (1 source)Shoulder joint pain; Translations: [Pain in unspecified shoulder] Onset: 71-97-7629QgllnbxvUjjrk nutritional; endocrine; and metabolic disorders (1 source)Morbid (severe) obesity due to excess calories; Translations: [MORBID SEVERE OBES D/T EXCESS CASA]Onset: 48-93-5904AcpfrurBeduu nutritional; endocrine; and metabolic disorders (1 source)Metabolic syndrome; Translations: [METABOLIC SYNDROME]Onset: 09-11-4316AwhanutUzpkd nutritional; endocrine; and metabolic disorders (1 source)Obesity, unspecified; Translations: [OBESITY UNSPECIFIED]Onset: 21-43-9679DiyzmlhKtecq nutritional; endocrine; and metabolic disorders (1 source)Body mass index (BMI) 40.0-44.9, adult; Translations: [BODY MASS INDEX BMI 40.0-44.9 ADULT]Onset: 20-64-6471HydnwunKpkqc nutritional; endocrine; and metabolic disorders (1 source)Body mass index (BMI) 45.0-49.9, adult; Translations: [BODY MASS INDEX BMI 45.0-49.9 ADULT]Onset: 16-26-1495FjsmvgnWjkcr nutritional; endocrine; and metabolic disorders (13 sources)Body mass index 40+ - severely obese; Translations: [Body mass index (BMI) 45.0-49.9, adult]Onset: 439181-87-0492OsjamlhPkgnb nutritional; endocrine; and metabolic disorders (14 sources)Severe obesity; Translations: [Class 3 severe obesity due to excess calories with body mass index (BMI) of 40.0 to 44.9 in adult]Onset: 12-25-2023 50-06-5526BmufvrwIobyb nutritional; endocrine; and metabolic disorders (1 source)Morbid obesity; Translations: [Morbid (severe) obesity due to excess calories]93-34-0514XduijfoRfaim screening for suspected conditions (not mental disorders or infectious disease) (1 source)Cancer cervix screening status; Translations: [Encounter for screening for malignant neoplasm of cervix]89-35-9061QqobhpygUbgobd media and related conditions (18 sources)Other specified disorders of Eustachian tube, left ear; Translations: [Dysfunction of bilateral eustachian tubes]Onset: 05-13-2022 EpisodicResidual codes; unclassified (1 source)Sleep vensd75-93-2209AmikmiiYubznota codes; unclassified (13 sources)Obstructive sleep apnea syndrome; Translations: [Obstructive sleep apnea (adult) (pediatric)]Onset: 026858-78-9002PtjhbooOdixgkop codes; unclassified (14 sources)Insomnia; Translations: [Insomnia, unspecified]Onset: 12-25-2023 06-38-8035OkaslnhwKlofvvaj codes; unclassified (1 source)History of adenoidectomy; Translations: [Acquired absence of other organs]92-49-8279TjehxheyKtrcffzchyc; intervertebral disc disorders; other back problems (14 sources)Degeneration of lumbar intervertebral disc; Translations: [DDD (degenerative disc disease), lumbar]Onset: 504333-94-0459LiwnwfiXkldbjppn- related disorders (3 sources)Nicotine dependence, cigarettes, uncomplicated; Translations: [Nicotine dependence]Onset: 064681-92-4453AavlnufOrhlkkkrdjnc (3 sources)LOW BACK PAIN, UNSPECIFIED; Translations: [LOW BACK PAIN, UNSPECIFIED]Onset: 53-10-5107Mdrvpnwhdpuj (1 source)CONTACT W/AND (SUSP) EXPOS COVID-19; Translations: [CONTACT W/AND (SUSP) EXPOS COVID-19]Onset: 00-93-4478Oimbihclxwxx (1 source)COUGH, UNSPECIFIED; Translations: [COUGH, UNSPECIFIED]Onset: 08-20-2022 Past or Other Problems Problem ClassificationProblemDateDocumented DateEpisodic/ChronicAbdominal pain (4 sources)Unspecified abdominal pain; Translations: [UNSPECIFIED ABDOMINAL PAIN]Onset: 67-26-0235WouxxhzxAvfpaxvv foot deformities (13 sources)Osteochondral defect of talus; Translations: [Other specified acquired deformities of musculoskeletal system]Onset: EpisodicFever of unknown origin (4 sources)Fever, unspecified; Translations: [FEVER UNSPECIFIED]Onset: 00-78-2245CghhinzePotu disorders (12 sources)Mood disordersOnset: 593375-06-6722Zmszbywngsj chest pain (1 source)Chest pain, unspecified; Translations: [CHEST PAIN UNSPECIFIED]Onset: 64-34-3108PkpvgvkuYejnm connective tissue disease (12 sources)Spasm; Translations: [Other muscle spasm]Onset: 024111-35-7079 EpisodicOther connective tissue disease (12 sources)Foreign body granuloma of soft tissue; Translations: [Foreign body granuloma of soft tissue, not elsewhere classified, unspecified ankle and foot] Onset: 01-15-2024 Resolved: 445335-87-8427ZyviclxzDzbky skin disorders (1 source)Hirsutism; Translations: [HIRSUTISM]Onset: 86-89-0945PhieehcoGgbmn skin disorders (2 sources)Eruption; Translations: [Rash and other nonspecific skin eruption] 83-60-7696VqngwcldQvslb upper respiratory infections (1 source)Acute upper respiratory infection, unspecified; Translations: [ACUTE UP RESPIRATORY INFECTION UNS]Onset: 46-46-1333CyhvlbnsDkohhvco codes; unclassified (13 sources)Tobacco user; Translations: [Tobacco use]Onset: EpisodicUnclassified (1 source)LOW BACK PAIN, UNSPECIFIED; Translations: [LOW BACK PAIN, UNSPECIFIED] Onset: 11-15-2022 Results Test NameValueInterpretationReference RangeFacilityIGP,APTIMA HPV,AGE GDLNon 29-01-8615AOB GDLN ACOG TESTINGNote.NOMS HealthcareComment on above:TESTS RESULT FLAG UNITS REF RANGE LAB Clinician Provided Cytology Information Source.............Cervix;Endocervix No. of containers..01 ThinPrep Vial Age Algo ACOG Cristine... FLAG LEGEND: L-Low Normal,H-High Normal,LL-Alert Low,HH-Alert High <-Panic Low,>-Panic High,A-Abnormal,AA-Critical Abnormal Performed at: 01 =[address] [place] [address] Francesca Alonzo MD, HPV APTIMANegativeNegativeNOMS HealthcareComment on above:This nucleic acid amplification test detects fourteen high- risk HPV types (16,18,31,33,35,39,45,51,52,56,58,59,66,68) without differentiation. Performed at: =[address] [id number] Mortgage Advisor: Francesca Alonzo MD, Phone: [phone] Performed at: [address] [id number] Mortgage Advisor: Francesca Alonzo MD, Phone: [phone] IGP, APTIMA HPV, RFX 16/18,45Note.[facility] HealthcareComment on above:TESTS RESULT FLAG UNITS REF RANGE LAB DIAGNOSIS: 02 NEGATIVE FOR INTRAEPITHELIAL LESION OR MALIGNANCY. Specimen adequacy: 02 Satisfactory for evaluation. No endocervical component is identified. Performed by: 02 Dorothy Smith, Truck Technician (ASC) . 02 Note: Note 02 The Pap [...] High <-Panic Low,>-Panic High,A-Abnormal,AA-Critical Abnormal Performed at: [address] [facility] [place] [address] Francesca Alonzo MD, BROOM-ALONE CERVIX ENDOCERVIX CLINISYNCNOMS HealthcareUPPER RESPIRATORY CULTUREon 82-34-7627VXHMB RESPIRATORY CULTURE Upper Respiratory Culture Organism: Beta hemolytic Strep group B : [facility] HealthcareUPPER RESPIRATORY CULTURE*ABNORMAL*N[facility]S HealthcareUPPER RESPIRATORY CULTURELight growthNOMS HealthcareUPPER RESPIRATORY CULTURE Penicillin and ampicillin are drugs of choice forNOID HealthcareUPPER RESPIRATORY CULTUREtreatment of beta-hemolytic streptococcal infections.N[facility]S HealthcareUPPER RESPIRATORY CULTURESusceptibility testing of penicillins and other beta-N[facility]S HealthcareUPPER RESPIRATORY CULTURElactam agents approved by the FDA for treatment ofNOID HealthcareUPPER RESPIRATORY CULTUREbeta-hemolytic streptococcal infections need not [facility]OM[facility] HealthcareUPPER RESPIRATORY CULTURE performed routinely because nonsusceptible isolatesNOID HealthcareUPPER RESPIRATORY CULTUREare extremely rare in any beta-hemolytic streptococcusNOID HealthcareUPPER RESPIRATORY CULTUREand have not been reported for Streptococcus pyogenesALTA VIEW HOSPITAL HealthcareUPPER RESPIRATORY CULTURE(group A). (CLSI)[facility] Healthcare UPPER RESPIRATORY CULTUREBeta hemolytic Strep group BNOMS HealthcareUPPER RESPIRATORY CULTURE O:BETAGB Isolated [facility] HealthcareUPPER RESPIRATORY CULTUREPerformed at: [facility] HealthUPPER RESPIRATORY [id number] [place], [place] [id number] Hospital of [facility] RESPIRATORY CULTURELab Director: Codey Sibley PhD, Phone: [phone] Mental Health Institute Informationon 65-33-7564Yhsi of biopsy: punch Informed consent: discussed and [...] used: 2 Specimen sent for: H&E Photo takenMayo Clinic Health System– Chippewa Valleyson 94-87-9381Hgbgh [id number]#1.00[facility] CampusConsent for Treatmenton 85-72-1693Sfcrtuv for Treatment [id number]#1.00[facility] CampusDischarge Instructionson 10-99-4639Udrxwgzkt Instructions [id number]#1.00[facility] Clinical Summaryon [id number] Clinical Summary [place] [id number] ED Clinical Summary Person Information Name: MARILIA VERA [facility] Age: 33 Years : 1990 Sex: Female Language: Nauruan PCP: ARIANE WELLS CNP Marital Status: Visit [...] 11/27/2023 15:37:23 11/27/2023 15:37:23 11/27/2023 15:37:23 ADDRESS: [address] [place] [id number] PHYS DOC NOTES: MEDICAL INFORMATION: Prescriptions Given: [facility], [address], [place] [id number], [phone] methocarbamol (Robaxin-750 oral tablet) 2 Tablets By [...] Follow up: With: Address: When: Georgi Pfeiffer [address] [place] [address] [employer] ([employer] In 3 days 11/30/2023 DIAGNOSIS: Pain in shoulderNormalFisher Radford Medical CenterED Note-Physicianon 11-27-2023 ED Note-PhysicianBasic Information Time Seen: Steven Cardenas PA-C 11/27/2023 [...] day(s), # 18 tab(s), Refills(s) 0, Pharmacy: [facility], 160, cm, 11/27/23 12:59:00 EDT, Height/Length Dosing, 114.1, kg, 11/27/23 12:59:00 EDT, Weight Dosing naproxen, 500 mg = 1 tab(s), Oral, BID, PRN for pain, # 20 tab(s), Refills(s) 0, [facility], 160, cm, 11/27/23 12:59:00 EDT, Height/Length [...] In 3 days 11/30/2023 EDT [address] [place] [address] Business (1) Additional Instructions: Patient Education Shoulder [...] made to ensure accuracy, however, inadvertently computerized pathology transcriptionist mistakes may be present. Appropriate healthcare PPE [...] Colonoscopy (12/04/2016), Scintigraphy (11/11/2016), EGD - Esophagogastroduodenoscopy (10/30/2016),Polysomnogram (05/27/2016), Tonsillectomy (09/01/1992), History of ankle surgery, Tympanostomy tube, Tympanostomy tube. Medications Inpatient No active inpatient medications Home aripiprazole 5 mg Tab, 5 mg= 1 tab(s), Oral, Daily busPIRone Calcium 600+D, 1 tab, Oral, Daily FLUoxetine 40 mg Cap, 40 mg= 1 cap(s), Oral, Daily Glucophage XR 500 mg Tab-ER, 1000 mg= 2 tab(s), Oral, BID HumuLIN R KwikPen (Concentrated) Jardianc (more content not included)...[facility]utheran HospitalComment on above:Result Comment: Electronically Signed By: Steven Cardenas PA-C\.br\Date and Time Signed: 11/26/2414:40 EDT\.br\Electronically Co-Signed By: Rkiy Le DO\.br\Date and Time Co-Signed: 11/26/2416:17 EDTED Patient Education Noteon [id number] Patient Education NoteOrthopedics Shoulder Pain Many things can cause shoulder [...] strengthen the arm. General instructions ? Take wrmg-ltv-jrwnvpy and prescription medicines only as told by [...] Reviewed: 05/03/2022 Elsevier Patient Education ? 2022 [facility] ED Patient Summaryon [id number] Patient Summary [address] [address] Patient Discharge Instructions Person Information Name: MARILIA VERA Age: 33 Years Arrival Date: 11/27/2023 12:52:48 Discharge Diagnosis: Pain in shoulder Primary Care Physician: ARIANE WELLS CNP Provider Information Primary Provider: Riky Le DO Advanced Hand Weaver:Steven Cardenas PA-C The exam and treatment you received in the Emergency Department were for an urgent problem and are not intended as complete care. It is important that you follow up with a doctor, nurse practitioner,or physician?s medical receptionist medical assistant for ongoing care. If your symptoms [...] Follow-up Instructions: With: Address: When: Georgi Pfeiffer [address] [place] [address] [employer] (1) In 3 days 11/30/2023 In the event that this physician does not participate in your insurance network, please consult with your insurance company to find a nearby participating provider. Patient Education Materials: Shoulder Pain A MESSAGE TO ALL PATIENTS REGARDING OPIOIDS PRESCRIPTION OPIOIDS: WHAT YOU NEED TO KNOW Prescription opioids can be used to help relieve mrvteoaf-qd-yzghtc pain and are often prescribed following a [...] and have fewer risks and side effects. Optionsmay include: ? Pain relievers such as acetaminophen, [...] unused prescription opioids: Find your community drug take- back program or yourpharmacy mail-back program, or flush them down the toilet, following guidance from the Food and Drug Administration (www.fda.gov/Drugs/ResourcesForYou). ? Visit www.cdc.gov/drugoverdose to learn about the risks of opioids abuse and overdose. ? If you believe you may be struggling with addiction, tell your health caretaker and ask for guidance or call [facility]?S National Helpline at 4-167-817-DZAU. d Source: BioKier (more content not included)...[facility]utheran HospitalFormson 77-79-6699Wzfvz [id number]#1.00TIFFNoCleveland Clinic Akron General Lodi HospitalXR Shoulder Complete Righton 96-31-8651NP Shoulder Complete RightExam Date/Time: 11/27/2023 13:33 EDT Reason for Exam: [...] Signed by: Naresh Crow MD Transcribed by: MARAT Technologist: EDGAR Technical Comments Radiation Dose: sharonda [place] in mGy = na DAP = naNorSt. Charles HospitalCBC AUTO DIFFon [id number] #0.1 103/ulNormal0.0-0.1The [facility]ain HospitalComment on above:Performed By: #### PREGU #### [facility] [address] [address] [address] Jaz BarajasBasophils/100 WBC (Bld)0.8 %Normal0.2-2.0The [facility] Comment on above:Performed By: #### PREGU #### [facility] [address] [address] [address] Jaz Mahoney #0.2 103/ulNormal0.0-0.7The [facility] HospitalComment on above: Performed By: #### PREGU #### [facility] [address] [place] [address] Dr. Jaz Alamoosinophils/100 WBC (Bld)2.1 %Normal0.9-7.0The [facility] Comment on above:Performed By: #### PREGU #### [facility] [address] [place] [address] Dr. Jaz Alamorythrocyte distribution width (RBC) [Ratio]13.0 %Xvfdyl89.0-15.0 The [facility] HospitalComment on above:Performed By: #### PREGU #### [facility] [address] [place] [address] Dr. Jaz BarajasHematocrit (Bld) [Volume fraction]41.2 %Lhomay28.0-48.0The [facility] HospitalComment on above:Performed By: #### PREGU #### [facility] [address] [place] [address] Dr. Jaz BarajasHemoglobin (Bld) [Mass/Vol]13.7 g/gYInvruc65.0-16.0The [facility] HospitalComment on above:Performed By: #### PREGU #### [facility] [address] [place] [address] Dr. Jaz Mak #0.02 10e3/ulNormal0.00-0.03The [facility] HospitalComment on above:Performed By: #### PREGU #### [facility] [address] [place] [address] Dr. Jaz Mak %0.2 %Normal0.0-0.5The Karl HospitalComment on above: Performed By: #### PREGU #### [facility] [address] [place] [address] Dr. Jaz Osborn #3.3 103/ulNormal1.2-3.8The [facility] HospitalComment on above:Performed By: #### PREGU #### [facility] [address] [place] [address] Dr. Jaz Carrillohocytes/100 WBC (Bld)34.8 %Njucdd72.5-60.0The [facility] HospitalComment on above:Performed By: #### PREGU #### [facility] [address] [place] [address] Dr. Jaz Rios DIFF REQNONormalThe [facility] HospitalComment on above: Performed By: #### PREGU #### [facility] [address] [place] [address] Dr. Jaz Chiang (RBC) [Entitic mass]26.6 pgCritically low26.7-34.0The [facility] HospitalComment on above:Performed By: #### PREGU #### [facility] [address] [place] [address] Dr. Jaz Dc (RBC) [Mass/Vol]33.3 g/oYAnanzs81.9-35.2The [facility] HospitalComment on above:Performed By: #### PREGU #### [facility] [address] [place] [address] Dr. Jaz Reyes (RBC) [Entitic vol]79.8 fLCritically low81.0-99.0The [facility] HospitalComment on above:Performed By: #### PREGU #### [facility] [address] [place] [address] Dr. Jaz James #0.7 103/ulNormal0.3-0.8The [facility] HospitalComment on above:Performed By: #### PREGU #### [facility] [address] [place] [address] Dr. Jaz Dejesusocytes/100 WBC (Bld)7.3 %Normal1.7-12.0The [facility] Comment on above:Performed By: #### PREGU #### [facility] [address] [place] [address] Dr. Jaz Paul #5.3 103/ulNormal1.4-6.5The [facility] HospitalComment on above:Performed By: #### PREGU #### [facility] [address] [place] [address] Dr. Jaz Wardutrophils/100 WBC (Bld)54.8 %Lvqegx11.0-75.0The [facility] HospitalComment on above:Performed By: #### PREGU #### [facility] [address] [place] [address] Dr. Jaz Clark mean volume (Bld) [Entitic vol]10.7 fLNormal9.5-13.5The [facility] HospitalComment on above:Performed By: #### PREGU #### [facility] [address] [place] [address] Dr. Jaz BarajasPLT284 103/vhRsaqtw262-969Vmo [facility] HospitalComment on above: Performed By: #### PREGU #### [facility] [address] [place] [address] Dr. Jaz BarajasRBC5.16 106/ulNormal4.20-5.40The [facility] HospitalComment on above:Performed By: #### PREGU #### [facility] [address] [place] [address] Dr. Jaz BarajasWBC9.6 103/ulNormal4.0-11.0The [facility] HospitalComment on above: Performed By: #### PREGU #### [facility] [address] [place] [address] Dr. Jaz BarajasFROPAL T4on 01-82-8157Qwyl T4 [Mass/Vol]1.10 ng/dLNormal0.76-1.46 The [facility] HospitalComment on above:Performed By: #### PROGLCM #### [facility] [address] [place], [place] [address] Dr. Jaz MckeonID PROFILEon 08-95-0133LPJG-HDL RATIO NORMSTriHealth McCullough-Hyde Memorial HospitalComment on above:Result Comment: 3.3 - 4.4 LOW RISK 4.4 - 7.1 AVERAGE RISK 7.1 - 11.0 MODERATE RISK >11.0 HIGH RISKPerformed By: #### LIPID, TSH, CMP ####[facility] [address] [place] [address]Dr. Jaz BarajasCholesterol [Mass/Vol]168 mg/dLNormal<=200Louis [facility] Va Medical CenterComment on above:Performed By: #### LIPID, TSH, CMP ####[facility] [address] [place] [address]Dr. Jaz Barajas Cholesterol in HDL [Mass/Vol]32 mg/dLCritically cfv36-72TasLouis Stokes Cleveland Va Medical Center Comment on above:Performed By: #### LIPID, TSH, CMP ####[facility] [address] [place] [address]Dr. Jaz BarajasCholesterol in LDL [Mass/Vol]121.8 mg/dLKettering Health DaytonComment on above:Performed By: #### LIPID, TSH, CMP ####[facility] [address] [place] [address]Dr. Jaz BarajasCholesterol.total/Cholesterol in HDL [Mass ratio]5.3 {ratio}NormalLouis Stokes Cleveland Va Medical CenterComment on above:Performed By: #### LIPID, TSH, CMP ####[facility] [address] [place] [address]Dr. Yilan ChangHDL NORMAL> or = 60 mg/dl - LOW CARDIOVASCULAR RISK <40 mg/dl - HIGH CARDIOVASCULAR RISKKettering Health DaytonComment on above:Performed By: #### LIPID, TSH, CMP ####[facility] [address] [place] [address]Dr. Yilan ChangLDL CALC NORMALSEE [facility] Doctors HospitalComment on above:Result Comment: <100 mg/dl OPTIMAL 100 - 129 mg/dl NEAR OR ABOVE OPTIMAL 130 - 159 mg/dl BORDERLINE HIGH 160 - 189 mg/dl HIGH >190 mg/dl VERY HIGHPerformed By: #### LIPID, TSH, CMP ####[facility] [address]trsq[address]rn[address] [place] [address]Dr. Jaz BarajasTriglyceride [Mass/Vol]71 mg/dLNormal<=150The [facility] HospitalComment on above:Performed By: #### LIPID, TSH, CMP ####[facility] Vsyrhgosen[address] [place] [address]Dr. Jaz BarajasVLDL CALC14.2 mg/dLNormalThe [facility] HospitalComment on above:Performed By: #### LIPID, TSH, CMP ####[facility] [address]shp[address] [place] [address]Dr. Jaz BarajasMICROALBUMIN, RAND URon 53-42-2576uQAZ<1.3Normal<=30.0 The [facility] HospitalComment on above:Performed By: #### PREGU #### [facility] [address] [place] [address] [address] Jaz BarajasPROF 14(COMP METB)on 77-30-6469Lvxpzta [Mass/Vol]3.7 g/dLNormal 3.4-5.0The [facility] HospitalComment on above:Performed By: #### LIPID, TSH, CMP ####[facility] [address]iv[address]soq[address] [place] [address]Dr. Jaz BarajasAlbumin/Globulin [Mass ratio]0.8 {ratio}NormalThe [facility] Comment on above:Performed By: #### LIPID, TSH, CMP ####[facility] [address]xmyupcqcd[address] [place] [address]Dr. Jaz BarajasALP [Catalytic activity/Vol]90 U/BGouufc83-587Oav [facility] HospitalComment on above:Performed By: #### LIPID, TSH, CMP ####[facility] Edsbfcmumg[address] [place] [address]Dr. Jaz BarajasALT [Catalytic activity/Vol]106 U/L Critically nyib46-32Bnc [facility] HospitalComment on above:Performed By: #### LIPID, TSH, CMP ####[facility] Ejwblvsfmq[address] [place] [address]Dr. Yilan ChangAnion gap [Moles/Vol]12.5 mmol/LNormalThe [facility] HospitalComment on above:Performed By: #### LIPID, TSH, CMP ####[facility] [address]tjifmidxi[address] [place] [address]Dr. Yilan ChangAST [Catalytic activity/Vol]43 U/LCritically dqar77-13Tyc [facility] HospitalComment on above:Performed By: #### LIPID, TSH, CMP ####[facility] Pzbikrfldd[address] [place] [address]Dr. Yilan ChangBilirubin [Mass/Vol]0.4 mg/dL Normal0.2-1.0The [facility] HospitalComment on above:Performed By: #### LIPID, TSH, CMP ####[facility] Efuislxokn[address] [place], [place] [address]Dr. Yilan ChangCalcium [Mass/Vol]9.0 mg/dLNormal8.5-10.1The [facility] HospitalComment on above:Performed By: #### LIPID, TSH, CMP ####[facility] Palsjjouco[address] [place], [place] [address]Dr. Yilan Barajas Chloride [Moles/Vol]104 mmol/VGstzrm61-888Hgz [facility] HospitalComment on above: Performed By: #### LIPID, TSH, CMP ####[facility] Cckrndiouz[address] [place], [place] [address]Dr. Yilan ChangCO2 [Moles/Vol]25.8 mmol/LNormal 21.0-32.0The [facility] HospitalComment on above:Performed By: #### LIPID, TSH, CMP ####[facility] Cxluredzeo[address] [place], [place] [address]Dr. Yilan ChangCreatinine [Mass/Vol]0.76 mg/dLNormal0.55-1.02The [facility] Comment on above:Performed By: #### LIPID, TSH, CMP ####[facility] Rzhgemzifw[address] [place], [place] [address]Dr. Yilan ChangEGFR-AF ETHIOPIAN>60Normal>=60The [facility] HospitalComment on above:Performed By: #### LIPID, TSH, CMP ####[facility] Heaaletmgb[address] [place], [place] [address]Dr. Yilan ChangEGFR-NON AF ETHIOPIAN>60Normal>=60The [facility] Comment on above:Performed By: #### LIPID, TSH, CMP ####[facility] Zgtmkknsxk[address] [place], [place] [address]Dr. Yilan ChangGlobulin (S) [Mass/Vol]4.4 g/dLNormalThe [facility] HospitalComment on above:Performed By: #### LIPID, TSH, CMP ####[facility] Eastpqkwet[address] [place], [place] [address]Dr. Yilan ChangGlucose [Mass/Vol]228 mg/dLCritically mzst81-700Alx [facility] HospitalComment on above:Performed By: #### LIPID, TSH, CMP ####[facility] Wifjimukos[address] [place], [place] [address]Dr. Yilan ChangPotassium [Moles/Vol]4.3 mmol/LNormal3.5-5.1The [facility] Comment on above:Performed By: #### LIPID, TSH, CMP ####[facility] Rxdjgjfwks[address] [place], [place] [address]Dr. Yilan ChangProtein [Mass/Vol]8.1 g/dLNormal6.4-8.2The [facility] HospitalComment on above:Performed By: #### LIPID, TSH, CMP ####[facility] Damzmyirvp[address] [place], [place] [address]Dr. Yilan ChangSodium [Moles/Vol]138 mmol/LNormal 136-145The [facility] HospitalComment on above:Performed By: #### LIPID, TSH, CMP ####[facility] Aqpjvvftjr[address] [place], [place] [address]Dr. Yilan ChangUrea nitrogen [Mass/Vol]21.0 mg/dLCritically high7.0-18.0The [facility] HospitalComment on above:Performed By: #### LIPID, TSH, CMP ####[facility] [address]pzqlsdlon[address] [place] [address]Dr. Yilan ChangUrea nitrogen/Creatinine [Mass ratio]27.6 mg/mgNoalThCleveland Clinic Fairview HospitalComment on above:Performed By: #### LIPID, TSH, CMP ####[facility] Uapgrweyle[address] [place] [address]Dr. Yilan ChangTSHon 22-71-1652YGF8.602 uIU/mLNormal0.358-3.740The [facility] HospitalComment on above:Performed By: #### LIPID, TSH, CMP ####[facility] Unjgcdmqdz[address] [place], [place] [address]Dr. Hannahlan ChangUA RANDOM W/MICROSCOPICon 01-65-9699YLLCAWKSZMWB SEEN NormalNONE SEENLouis Stokes Cleveland Va Medical CenterCommckenzie memorial hospital on above:Performed By: #### UAMIC ####[facility] Bokbxaqkkm[address] [place], [place] [address]Dr. Hannahlan ChangBilirubin Ql (U)NegativeNormalNEGATIVELouis Stokes Cleveland Va Medical CenterComment on above:Performed By: #### UAMIC ####[facility] Tvyytggbcd[address] [place], [place] [address]Dr. Yilan ChangCASTNONE SEENNormalNONE SEENLouis Stokes Cleveland Va Medical CenterCommckenzie memorial hospital on above:Performed By: #### UAMIC ####[facility] Lojcaomehr[address] [place], [place] [address]Dr. Hannahlan ChangClarity (U) CLEARNormalCLEARLouis Stokes Cleveland Va Medical CenterComment on above:Performed By: #### UAMIC ####[facility] Stfejqhvbk[address] [place], [place] [address]Dr. Hannahlan ChangColor (U)LT. YELLOWNormalYELLOWLouis Stokes Cleveland Va Medical CenterComment on above: Performed By: #### UAMIC ####[facility] Jkonvxujho[address] [place], [place] [address]Dr. Hannahlan ChangCrystals LM Nom (Urine sed)NONE SEEN NormalNONE SEENLouis Stokes Cleveland Va Medical CenterComment on above:Performed By: #### UAMIC ####[facility] Bkxasspgyc[address] [place], [place] [address]Dr. Yilan ChangEpithelial cells LM Ql (Urine sed)RARENormalNONE SEEN /RAREThe Wingate HospitalComment on above:Performed By: #### UAMIC ####[facility] Ahigmqmlmx[address] [place], [place] [address]Dr. Yilan ChangGlucose Ql (U) >1000AbnormalNEGATIVEThe [facility] HospitalComment on above:Performed By: #### UAMIC ####[facility] Eqpjvtoxxn[address] [place], [place] [address]Dr. Yilan ChangHemoglobin Ql (U)NegativeNormalNEGATIVEThe [facility] Comment on above:Performed By: #### UAMIC ####[facility] Btofrufgin[address] [place], [place] [address]Dr. Yilan ChangKetones Ql (U)NegativeNormal NEGATIVESt. Francis Hospital HospitalComment on above:Performed By: #### UAMIC ####[facility] Lgnsalqbqr[address] [place], [place] [address]Dr. Yilan ChangLEUKOCYTESNegativeNormalNEGATIVELouis Stokes Cleveland Va Medical CenterComment on above:Performed By: #### UAMIC ####[facility] Wqirepsuyk[address] [place], [place] [address]Dr. Yilan ChangMUCOUSNONE SEENNormalNONE SEENLouis Stokes Cleveland Va Medical CenterComment on above:Performed By: #### UAMIC ####[facility] Xciftridsd[address] [place], [place] [address]Dr. Yilan ChangNitrite Ql (U) NegativeNormalNEGATIVELouis Stokes Cleveland Va Medical CenterComment on above:Performed By: #### UAMIC ####[facility] Lbstfowgoq[address] [place], [place] [address]Dr. Yilan ChangpH (U)6.0 [pH]Normal5-9Louis [facility] Medical CenterComment on above:Performed By: #### UAMIC ####[facility] Wdunytxgsq[address] [place], [place] [address]Dr. Yilan ChangRBCNONE SEENAbnormal0-2The [facility] HospitalComment on above:Performed By: #### UAMIC ####[facility] [address]ix[address]byw[address] [place] [address]Dr. Jaz BarajasSPEC GRAVITY 1.775Quqwnf7.005-<=1.025Louis [facility] Medical CenterComment on above:Performed By: #### UAMIC ####[facility] [address]kvre[address] [place] [address]Dr. Jaz BarajasUA PROTEINNegativeNormalNEGATIVE/ TRACEThe [facility] Comment on above:Performed By: #### UAMIC ####[facility] Uisitjqmfk[address] [place] [address]Dr. Jaz BarajasUrobilinogen Qn (U)0.2 {Oxana'U}/dLNormal0.2 - 1.0The [facility] HospitalComment on above:Performed By: #### UAMIC ####[facility] Dmjfzkjtiu[address] [place], [place] [address]Dr. Jaz BarajasWBC0-2AbnormalNONE SEENLouis Stokes Cleveland Va Medical CenterComment on above:Performed By: #### UAMIC ####[facility] Icaswhxjio[address] [place], [place] [address]Dr. Jaz BarajasVITAMIN D 25 OHon 45-71-0989MRS D 25-OH 30.9 ng/mLNormalLouis Stokes Cleveland Va Medical CenterComment on above:Performed By: #### GLCM #### [facility] [address] [place] [address] Dr. Jaz Baxter RANGESSEE BELOWNoAdena Fayette Medical CenterComment on above: Result Comment: <20 ng/mL Vit D deficient 20 - <30 ng/mL Vit D insufficient 30 - 100 ng/mL Vit D sufficient >100 ng/mL Potential ToxicityPerformed By: #### GLCM #### [facility] [address] [place] [address] Dr. Jaz Najera AUTO DIFFon 17-93-4113AGLL #0.1 103/ulNormal0.0-0.1[facility] CenterCommckenzie memorial hospital on above:Performed By: #### GLCM #### [facility] [address] [place] [address] Dr. Jaz BarajasBasophils/100 WBC (Bld)0.6 %Normal0.2-2.0The [facility] Comment on above:Performed By: #### PROGLCM #### [facility] [address] [place] [address] Dr. Jaz Mahoney #0.2 103/ulNormal0.0-0.7The [facility] HospitalComment on above: Performed By: #### PROGLCM #### [facility] [address] [place] [address] Dr. Jaz Alamoosinophils/100 WBC (Bld)2.0 %Normal0.9-7.0The [facility] Comment on above:Performed By: #### PROGLCM #### [facility] [address] [place] [address] Dr. Jaz Alamorythrocyte distribution width (RBC) [Ratio]13.3 %Phgvac88.0-15.0 The [facility] HospitalComment on above:Performed By: #### PROGLCM #### [facility] [address] [place] [address] Dr. Jaz BarajasHematocrit (Bld) [Volume fraction]40.4 %Ktigof63.0-48.0The [facility] HospitalComment on above:Performed By: #### PROGLCM #### [facility] [address] [place] [address] Dr. Jaz BarajasHemoglobin (Bld) [Mass/Vol]13.5 g/jNFjsnsu77.0-16.0The [facility] HospitalComment on above:Performed By: #### PROGLCM #### [facility] [address] [place] [address] Dr. Jaz Mak #0.03 10e3/ulNormal0.00-0.03The [facility] HospitalComment on above:Performed By: #### PROGLCM #### [facility] [address] [place] [address] Dr. Jaz BarajasIG %0.3 %Normal0.0-0.5The [facility] HospitalComment on above: Performed By: #### PROGLCM #### [facility] [address] [place] [address] Dr. Jaz Osborn #3.3 103/ulNormal1.2-3.8The [facility] HospitalComment on above:Performed By: #### PROGLCM #### [facility] [address] [place] [address] Dr. Jaz Carrillohocytes/100 WBC (Bld)30.7 %Hzxtgc43.5-60.0The [facility] HospitalComment on above:Performed By: #### PROGLCM #### [facility] [address] [place] [address] Dr. Jaz Rios DIFF REQNONormalThe [facility] HospitalComment on above: Performed By: #### PROGLCM #### [facility] [address] [place] [address] Dr. Jaz Dc (RBC) [Entitic mass]26.6 pgCritically low26.7-34.0The [facility] HospitalComment on above:Performed By: #### PROGLCM #### [facility] [address] [place] [address] Dr. Jaz Dc (RBC) [Mass/Vol]33.4 g/zNTpcvju71.9-35.2The [facility] HospitalComment on above:Performed By: #### PROGLCM #### [facility] [address] [place] [address] Dr. Jaz Dc (RBC) [Entitic vol]79.7 fLCritically low81.0-99.0The [facility] HospitalComment on above:Performed By: #### PROGLCM #### [facility] [address] [place] [address] Dr. Jaz James #0.8 103/ulNormal0.3-0.8The [facility] HospitalComment on above:Performed By: #### PROGLCM #### [facility] [address] [place] [address] Dr. Jaz Dejesusocytes/100 WBC (Bld)7.4 %Normal1.7-12.0The [facility] Comment on above:Performed By: #### PROGLCM #### [facility] [address] [place] [address] Dr. Jaz Paul #6.3 103/ulNormal1.4-6.5The [facility] HospitalComment on above:Performed By: #### PROGLCM #### [facility] [address] [place] [address] Dr. Jaz Wardutrophils/100 WBC (Bld)59.0 %Unwfqa91.0-75.0The [facility] HospitalComment on above:Performed By: #### PROGLCM #### [facility] [address] [place] [address] Dr. Jaz BarajasPlatelet mean volume (Bld) [Entitic vol]10.7 fLNormal9.5-13.5The [facility] HospitalComment on above:Performed By: #### PROGLCM #### [facility] [address] [place] [address] Dr. Jaz BarajasPLT326 103/irNholen981-804Gdm [facility] HospitalComment on above: Performed By: #### PROGLCM #### [facility] [address] [place] [address] Dr. Jaz BarajasRBC5.07 106/ulNormal4.20-5.40The [facility] HospitalComment on above:Performed By: #### PROGLCM #### [facility] [address] [place] [address] Dr. Jaz BarajasWBC10.7 103/ulNormal4.0-11.0The [facility] HospitalComment on above:Performed By: #### PROGLCM #### [facility] [address] [place] [address] Dr. 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 Jaz Ospina (U)CLEARNormalCLEARLouis Stokes Cleveland Va Medical CenterComment on above: Performed By: #### PROGLCM #### [facility] [address] [address] [address] Jaz Schwartz (U)LT. YELLOWNormalYELLOWLouis Stokes Cleveland Va Medical CenterComment on above:Performed By: #### PROGLCM #### [facility] [address] [address] [address] Jaz Larsen micrscopic examination will be performed if indicated. NormalLouis Stokes Cleveland Va Medical CenterComment on above:Performed By: #### PROGLCM #### [facility] [address] [address] [address] Jaz BarajasGlucose Ql (U)1000 mg/dlAbnoalNEGGreene Memorial Hospital Comment on above:Performed By: #### PROGLCM #### [facility] [address] [address] [address] Jaz BarajasHemoglobin Ql (U)NegativeNormalNEGGreene Memorial Hospital Comment on above:Performed By: #### PROGLCM #### [facility] [address] [address] [address] Jaz BarajasKetones Ql (U)NegativeNormalNEGGreene Memorial HospitalComment on above:Performed By: #### PROGLCM #### [facility] [address] [place] [address] Dr. Jaz BarajasLEUKOCYTESNegativeNormalNEGATIVELouis Stokes Cleveland Va Medical CenterComment on above:Performed By: #### PROGLCM #### [facility] [address] [place] [address] Dr. Jaz BarajasNitrite Ql (U)NegativeNormalNEGGreene Memorial HospitalComment on above:Performed By: #### PROGLCM #### [facility] [address] [place] [address] Dr. Jaz BarajaspH (U)6.0 [pH]Normal5-9The [facility] HospitalComment on above: Performed By: #### PROGLCM #### [facility] [address] [place] [address] Dr. Jaz BarajasSPEC GRAVITY1.749Hdrzdh5.005-<=1.025Louis [facility] Va Medical CenterComment on above:Performed By: #### PROGLCM #### [facility] [address] [place] [address] Dr. Jaz BarajasUA PROTEINNegativeNormalNEGATIVE/ TRACELouis Stokes [facility] Center Comment on above:Performed By: #### PROGLCM #### [facility] [address] [place] [address] Dr. Jaz Prakash MICRO INDNOT INDICATEDNormalThe [facility] HospitalComment on above:Performed By: #### PROGLCM #### [facility] [address] [place] [address] Dr. Jaz BarajasUrobilinogen Qn (U)0.2 {Oxana'U}/dLNormal0.2 - 1.0The [facility] HospitalComment on above:Performed By: #### PROGLCM #### [facility] [address] [place] [address] Dr. Jaz BarajasLIPASEon 94-13-9756Iayesl [Catalytic activity/Vol]73.0 U/LNormal 73.0-393.0The [facility] HospitalComment on above:Performed By: #### PREGU #### [facility] [address] [place] [address] Dr. Jaz BarajasPREGNANCY URon 18-04-8931QTRYOPKMK, QUALNegativeNormalNEGATIVEThe [facility] HospitalComment on above:Performed By: #### ERUR, PREGU ####[facility] [address] [address]Dr. Jaz BarajasPROF 14(COMP METB)on 00-81-9495Chcqfxr [Mass/Vol]3.6 g/dLNormal3.4-5.0The [facility] HospitalComment on above:Performed By: #### PREGU #### [facility] [address] [place] [address] Dr. Jaz BarajasAlbumin/Globulin [Mass ratio]0.9 {ratio}NormalThe [facility] HospitalComment on above:Performed By: #### PREGU #### [facility] [address] [place] [address] Dr. Jaz BeebeP [Catalytic activity/Vol]98 U/BVolhas99-754Bng [facility] HospitalComment on above:Performed By: #### PREGU #### [facility] [address] [place] [address] Dr. Jaz Sahu [Catalytic activity/Vol]138 U/LCritically edsu86-61Ico [facility] HospitalComment on above:Performed By: #### PREGU #### [facility] [address] [address] [address] Jaz Rodriguez gap [Moles/Vol]13.4 mmol/LNormalThe [facility] Comment on above:Performed By: #### PREGU #### [facility] [address] [address] [address] Jaz BarajasAST [Catalytic activity/Vol]61 U/LCritically tdqs98-80Eld [facility] HospitalComment on above:Performed By: #### PREGU #### [facility] [address] [address] [address] Jaz BarajasBilirubin [Mass/Vol]0.2 mg/dLNormal0.2-1.0[facility] Comment on above:Performed By: #### PREGU #### [facility] [address] [address] [address] Jaz BarajasCalcium [Mass/Vol]9.4 mg/dLNormal8.5-10.1[facility] Comment on above:Performed By: #### PREGU #### [facility] [address] [address] [address] Jaz BarajasChloride [Moles/Vol]104 mmol/GHlsaze35-291DcnLouis Stokes Cleveland Va Medical Center Comment on above:Performed By: #### PREGU #### [facility] [address] [address] [address] Jaz BarajasCO2 [Moles/Vol]24.7 mmol/HHsxqqh41.0-32.0The [facility] Comment on above:Performed By: #### PREGU #### [facility] [address] [address] [address] Jaz BarajasCreatinine [Mass/Vol]0.69 mg/dLNormal0.55-1.02The [facility] HospitalComment on above:Performed By: #### PREGU #### [facility] [address] [address] [address] Sebastian ChangEGFR-AF ETHIOPIAN>60Normal>=60The [facility] HospitalComment on above:Performed By: #### PREGU #### [facility] [address] [address] [address] Jaz AlamoGFR-NON AF ETHIOPIAN>60Normal>=60The [facility] HospitalComment on above:Performed By: #### PREGU #### [facility] [address] [address] [address] Jaz BarajasGlobulin (S) [Mass/Vol]4.2 g/dLNormKettering Health Greene MemorialComment on above:Performed By: #### PREGU #### [facility] [address] [address] [address] Jaz BarajasGlucose [Mass/Vol]339 mg/dLCritically dczs86-313Gxx [facility] HospitalComment on above:Performed By: #### PREGU #### [facility] [address] [address] [address] Jaz BarajasPotassium [Moles/Vol]4.1 mmol/LNormal3.5-5.1The [facility] Comment on above:Performed By: #### PREGU #### [facility] [address] [address] [address] Jaz BarajasProtein [Mass/Vol]7.8 g/dLNormal6.4-8.2The [facility] Comment on above:Performed By: #### PREGU #### [facility] [address] [address] [address] Jaz BarajasSodium [Moles/Vol]138 mmol/QYqyadj876-392Muf [facility] Comment on above:Performed By: #### PREGU #### [facility] [address] [address] [address] Jaz BarajasUrea nitrogen [Mass/Vol]17.0 mg/dLNormal7.0-18.0The [facility] HospitalComment on above:Performed By: #### PREGU #### [facility] [address] [address] [address] Jaz BarajasUrea nitrogen/Creatinine [Mass ratio]24.6 mg/mgNormKettering Health Greene MemorialComment on above:Performed By: #### PREGU #### [facility] [address] [place], [place] [address] Dr. Jaz Meng WOUNDon 06-92-2657QCHGPTU WOUNDCulture Observations: NO GROWTH OF ANAEROBES AT 72 HOURS. [...] Vancomycin 0.5 S F Tetracycline >=16 R FNormalThe [facility] HospitalComment on above:Performed By: #### WOUNDCX ####[facility] [address] [place], [place] [address]YhDr. Jaz Varela-19 PCR ([facility]VDFOXB[facility])on 27-99-3610CLFK-CoV-2 (COVID-19) RNA REANNA+probe Ql (Unsp spec)Not detectedNormalNOT DETECTEDLouis Stokes [facility] Center Comment on above:Result Comment: This test is not yet approved or cleared by the [place] FDA. When there are no FDA-approved or cleared tests available, and other criteria are met, FDA can make tests available under an emergency access mechanism called an Emergency Use Authorization (EUA). The EUA for this test is supported by the [employer] Aide of Health and Human Service's (HHS's) declaration that circumstances exist to justify the emergency use of in vitro diagnostics for the detection and/or diagnosis of the virus that causes COVID- 19. This EUA will remain in effect (meaning [...] of clinical signs and symptoms consistent with SARS-CoV-2.Performed By: #### PROGLCM #### [facility] [address] [place] [address] Dr. Jaz Knox A AND B AGon 25-12-8952RXZALRLXSUBYVGalion Community Hospital on above:Result Comment: Negative for Flu A protein angiten. Infection due to Flu A cannot be ruled out. FluA angiten in the sample may be below the detection limit of the test.Performed By: #### PROGLCM #### [facility] [address] [place] [address] Dr. Jaz BarajasINFLUBNEGHSOPAL [facility] on above: Result Comment: Negative for Flu B protein antigen. Infection due to Flu B cannot be ruled out. FluB antigen in the sample may be below the detection limit of the test.Performed By: #### PROGLCM #### [facility] [address] [place] [address] Dr. Jaz Guevara AGNegativeNormalNEGATIVE SEE COMMENTThe [facility] on above:Performed By: #### PROGLCM #### [facility] [address] [place] [address] Dr. Jaz Charles AGNegativeNormalNEGATIVE SEE COMMENTThe [facility] on above:Performed By: #### PROGLCM #### [facility] [address] [place] [address] Dr. Jaz BarajasINTERNAL CONTROLSWithin Normal LimitsNormalWithin Normal Limits The [facility] HospitalCommckenzie memorial hospital on above:Performed By: #### PROGLCM #### [facility] [address] [place] [address] Dr. Jaz BarajasPOINT OF CARE GLUCOSEon 52-12-9379Sziofzx [Mass/Vol]310 mg/dL Critically dqii27-513Dir [facility] on above:Performed By: #### PROGLCM #### [facility] [address] [place] [address] Dr. Jaz BarajasXR CHEST 1 Von 25-70-7074PJ CHEST 1 VEXAMINATION: XR CHEST 1 V HISTORY: Cough COMPARISON: 01/09/2022 chest x-ray TECHNIQUE: Portable chest FINDINGS: The lung parenchyma is free of consolidation or infiltrate. No pneumothorax or pleural effusion. The cardiac, mediastinal and hilar contours are normal. The visualized osseous structures exhibit no gross abnormality. IMPRESSION: Normal chest x-ray Electronically authenticated by: JOSE EDUARDO RHODES Date: 2022-08-18 15:33NormalThe [facility] HospitalPREG HCG QUALon 07-59-9265TXWAYQXQA, QUALNegativeNormalNEGATIVE The [facility] HospitalComment on above:Performed By: #### PREG ####[facility] [address] [place], [place] [address]Dr. Hannahlan ChangCBC AUTO DIFFon [id number] #0.1 103/ulNormal0.0-0.1The [facility] HospitalComment on above:Performed By: #### CBC ####[facility] [address] [place], [place] [address]Dr.Jaz ChangBasophils/100 WBC (Bld)0.6 %Normal 0.2-2.0The [facility] HospitalComment on above:Performed By: #### CBC ####[facility] [address] [place], [place] [address]Dr.Hannahlan ChangEO # 0.2 103/ulNormal0.0-0.7The [facility] HospitalComment on above:Performed By: #### CBC ####[facility] [address] [place], [place] [address]Dr. Jaz ChangEosinophils/100 WBC (Bld)1.5 %Normal0.9-7.0The [facility] Comment on above:Performed By: #### CBC ####[facility] [address] [place], [place] [address]Dr.Jaz ChangErythrocyte distribution width (RBC) [Ratio]12.6 %Bprmpt91.0-15.0The [facility] HospitalComment on above: Performed By: #### CBC ####[facility] [address] [place], [place] [address]Dr.Jaz ChangHematocrit (Bld) [Volume fraction]38.7 % Pnkdsv76.0-48.0The [facility] HospitalComment on above:Performed By: #### CBC ####[facility] [address] [address]Dr. Jaz KarlHemoglobin (Bld) [Mass/Vol]12.9 g/sIXqgtgq57.0-16.0The [facility] HospitalComment on above:Performed By: #### CBC ####[facility] [address] [place], [place] [address]Dr.Jaz BarajasIG #0.02 10e3/ulNormal0.00-0.03The [facility] HospitalComment on above:Performed By: #### CBC ####[facility] [address] [place], [place] [address]DrPratibha BarajasIG %0.2 %Normal0.0-0.5The [facility] HospitalComment on above:Performed By: #### CBC ####[facility] [address] [place], [place] [address]Dr.Jaz BarajasLYMPH #3.5 103/ulNormal1.2-3.8The [facility] Comment on above:Performed By: #### CBC ####[facility] [address] [place], [place] [address]Dr.Jaz BarajasLymphocytes/100 WBC (Bld)34.4 %Ndtvcd98.5-60.0The [facility] HospitalComment on above:Performed By: #### CBC ####[facility] [address] [place], [place] [address]Dr. Jaz BarajasMANUAL DIFF REQNONormalThe [facility] HospitalComment on above: Performed By: #### CBC ####[facility] [address] [place], [place] [address]Dr.Jaz BarajasO[facility] (RBC) [Entitic mass]27.2 pgNormal 26.7-34.0The [facility] HospitalComment on above:Performed By: #### CBC ####[facility] [address] [place], [place] [address]Dr. Jaz BarajasU.[facility]. [facility] (RBC) [Mass/Vol]33.3 g/eTPcdiei09.9-35.2The [facility] Comment on above:Performed By: #### CBC ####[facility] [address] [place], [place] [address]Dr.Jaz BarajasMCV (RBC) [Entitic vol]81.6 fL Gulexr55.0-99.0The [facility] HospitalComment on above:Performed By: #### CBC ####[facility] [address] [place], [place] [address]Dr. Jaz BarajasMONO #0.7 103/ulNormal0.3-0.8The [facility] HospitalComment on above: Performed By: #### CBC ####[facility] [address] [place], [place] [address]Dr.Jaz BarajasMonocytes/100 WBC (Bld)7.0 %Normal 1.7-12.0The [facility] HospitalComment on above:Performed By: #### CBC ####[facility] [address] [place], [place] [address]Dr. Jaz BarajasNEUT #5.7 103/ulNormal1.4-6.5The [facility] HospitalComment on above: Performed By: #### CBC ####[facility] [address] [place], [place] [address]Dr.Jaz BarajasNeutrophils/100 WBC (Bld)56.3 %Normal 43.0-75.0The [facility] HospitalComment on above:Performed By: #### CBC ####[facility] [address] [place], [place] [address]Dr. Jaz BarajasPlatelet mean volume (Bld) [Entitic vol]11.0 fLNormal9.5-13.5The [facility] HospitalComment on above:Performed By: #### CBC ####[facility] [address] [place], [place] [address]Dr.Jaz BarajasPLT274 103/ul Xzvfee403-218Mmz [facility] HospitalComment on above:Performed By: #### CBC ####[facility] [address] [place], [place] [address]DrPratibha BarajasRBC4.74 106/ulNormal4.20-5.40The [facility] HospitalComment on above: Performed By: #### CBC ####[facility] [address] [address]Dr.Yilan BarajasWBC10.0 103/ulNormal4.0-11.0The [facility] HospitalComment on above:Performed By: #### CBC ####[facility] [address] [address]DrAnuja BarajasCovid-19 PCR (CVDTBH)on 25-46-4921DBQZ-CoV-2 (COVID-19) RNA REANNA+probe Ql (Unsp spec)Not detectedNormalNOT DETECTEDThe [facility] on above:Result Comment: This test is not yet approved or cleared by the [place] FDA. When there are no FDA-approved or cleared tests available, and other criteria are met, FDA can make tests available under an emergency access mechanism called an Emergency Use Authorization (EUA). The EUA for this test is supported by the [place] of Health and Human Service's (HHS's) declaration [...] of clinical signs and symptoms consistent with SARS-CoV-2.Performed By: #### PREGU #### [facility] [address] [address] [address] Jaz BarajasPROF CHEM 8 (BAS METB)on 78-26-9955Lokzz gap [Moles/Vol]10.1 mmol/LNormalThe [facility] HospitalComment on above:Performed By: #### PREGU #### [facility] [address] [place] [address] Dr. Jaz BarajasCalcium [Mass/Vol]9.0 mg/dLNormal8.5-10.1The [facility] Comment on above:Performed By: #### PREGU #### [facility] [address] [place] [address] Dr. Jaz BarajasChloride [Moles/Vol]99 mmol/QKthbqt35-014Gau [facility] Comment on above:Performed By: #### PREGU #### [facility] [address] [address] [address] Jaz BarajasCO2 [Moles/Vol]29.1 mmol/NNjphaj98.0-32.0The [facility] Comment on above:Performed By: #### PREGU #### [facility] [address] [place] [address] Dr. Jaz BarajasCreatinine [Mass/Vol]0.80 mg/dLNormal0.55-1.02The [facility] HospitalComment on above:Performed By: #### PREGU #### [facility] [address] [place] [address] Dr. Jaz AlamoGFR-AF ETHIOPIAN>60Normal>=60The [facility] HospitalComment on above:Performed By: #### PREGU #### [facility] [address] [place] [address] Dr. Jaz AlamoGFR-NON AF ETHIOPIAN>60Normal>=60[facility] CenterComment on above:Performed By: #### PREGU #### [facility] [address] [place] [address] Dr. Jaz BarajasGlucose [Mass/Vol]217 mg/dLCritically wchu16-665Xxt [facility] HospitalComment on above:Performed By: #### PREGU #### [facility] [address] [place] [address] Dr. Jaz BarajasPotassium [Moles/Vol]4.2 mmol/LNormal3.5-5.1The [facility] Comment on above:Result Comment: specimen slightly hemolyzed may affect K+ resultPerformed By: #### PREGU #### [facility] [address] [place] [address] Dr. Jaz BarajasSodium [Moles/Vol]134 mmol/LCritically ogf381-350Ogr [facility] HospitalComment on above:Performed By: #### PREGU #### [facility] [address] [address] [address] Jaz BarajasUrea nitrogen [Mass/Vol]11.0 mg/dLNormal7.0-18.0The [facility] HospitalComment on above:Performed By: #### PREGU #### [facility] [address] [address] [address] Jaz BarajasUrea nitrogen/Creatinine [Mass ratio]13.8 mg/mgNormalThe [facility] HospitalComment on above:Performed By: #### PREGU #### [facility] [address] [address] [address] Jaz BarajasCT ABD/PELV W CONon 38-31-1282JW ABD/PELV W CONEXAMINATION: CT ABD/PELV W CON HISTORY: GENERALIZED ABDOMINAL PAIN , [...] Electronically authenticated by: JEYSON BLANTON Date: 2022-04-18 12:31[facility] URINE PROFILEon [id number] Ql (U)NegativeNormal NEGATIVELouis Stokes Cleveland Va Medical CenterComment on above:Performed By: #### ERUR, PREGU ####[facility] Xrdjiql[address] [place], [place] [address]Dr. Yilan ChangClarity (U)CLEARNormalCLEARLouis Stokes Cleveland Va Medical CenterComment on above: Performed By: #### ERUR, PREGU ####[facility] Wcovkopepi[address] [place], [place] [address]Dr. Yilan ChangColor (U)LT. YELLOWNormalYELLOWLouis Stokes Cleveland Va Medical CenterComment on above:Performed By: #### ERUR, PREGU ####[facility] Nsctwqpbfa[address] [place], [place] [address]Dr. Yiisela RAMIREZDA micrscopic examination will be performed if indicated.NormalLouis Stokes Cleveland Va Medical CenterComment on above:Performed By: #### ERUR, PREGU ####[facility] Kuamqrksfh[address] [place], [place] [address]Dr. Yilan ChangGlucose Ql (U) 1000 mg/dlAbnormalNEGATIVELouis Stokes Cleveland Va Medical CenterComment on above:Performed By: #### ERUR, PREGU ####[facility] Pcytsgilzj[address] [place], [place] [address]Dr. Yilan ChangHemoglobin Ql (U)NegativeNormalNEGATIVELouis Stokes Cleveland Va Medical CenterComment on above:Performed By: #### ERUR, PREGU ####[facility] Luucypchfs[address] [place], [place] [address]Dr. Yilan ChangKetones Ql (U) NegativeNormalNEGATIVELouis Stokes Cleveland Va Medical CenterComment on above:Performed By: #### ERUR, PREGU ####[facility] [address] [address]Dr. Hannahisela KarlLEUKOCYTESNegativeNormalNEGATIVEThe Wingate HospitalComment on above:Performed By: #### JAMESR, PREGU ####[facility] [address] [address]Dr. Hannahisela KarlNitrite Ql (U)NegativeNormal NEGATIVEThe Wingate HospitalComment on above:Performed By: #### ERUR, PREGU ####[facility] [address] [address]Dr. Jaz BarajaspH (U)6.5 [pH]Normal5-9The [facility] HospitalComment on above: Performed By: #### RAUL, PREGU ####[facility] [address] [address]Dr. Hannahisela KarlSPEC GRAVITY1.004Dokfdc7.005-<=1.025The [facility] HospitalComment on above:Performed By: #### JAMESR, PREGU ####[facility] Bzzpqwzuez[address] [place], [place] [address]Dr. Hannahisela BarajasUA PROTEINNegativeNormalNEGATIVE/ TRACEThe [facility]ate HospitalComment on above: Performed By: #### JAMESR, PREGU ####[facility] [address] [address]Dr. Hannahisela BarajasUR MICRO INDNOT INDICATEDNormalThe [facility] HospitalComment on above:Performed By: #### JAMESR, PREGU ####[facility] Mzrbosrruv[address] [place], [place] [address]Dr. Hannahisela Barajas Urobilinogen Qn (U)0.2 {Oxana'U}/dLNormal0.2 - 1.0The [facility] HospitalComment on above:Performed By: #### JAMESR, PREGU ####[facility] [address]uzgjn[address] [place], [place] [address]Dr. Hannahisela BarajasPREGNANCY URon 04-18-2022 , QUALNegativeNormalNEGATIVEThe [facility] HospitalComment on above: Performed By: #### ERUR, PREGU ####[facility] [address] [address]Dr. Jaz Barajas17-[place] PROGESTERONE, LC/MSon 04-05-2022 17-[place] Progesterone LCMS43 ng/dLNormalThe [facility] HospitalComment on above: Result Comment: Adult Female Follicular 15 - 70 Luteal 35 - 290Performed By: #### PROGLCM #### [facility] [address] [place] [address] Dr. Jaz BarajasANDROSTENEDINE LC/MSon 80-46-5876Nsvqcxeyqdskfug LISR102 ng/dL Dzqbez50-065Fez [facility] HospitalComment on above:Result Comment: This test was developed and its performance characteristics determined by [employer]. It has not been cleared or approved by the Food and Drug Administration.Performed By: #### ANDROST #### [facility] [address] [place] [address] Dr. Jaz BarajasTESTOSTERONE, TOTALon 66-89-1706Xjlhxhlbkltv [Mass/Vol]70 ng/dL Critically high8-60The [facility] HospitalComment on above:Performed By: #### TESTTOT ####[facility] K[address]wvf[address] [place], [place] [address]Dr. Jaz BarajasPROF CHEM 8 (BAS METB)on 87-56-7474Dsalq gap [Moles/Vol]11.5 mmol/LNormalThe [facility] HospitalComment on above:Performed By: #### BMP ####[facility] [address] [address]Dr. Jaz ChangCalcium [Mass/Vol]9.1 mg/dLNormal8.5-10.1The [facility] HospitalComment on above:Performed By: #### BMP ####[facility] Mwoogqgxhu[address] [place], [place] [address]Dr.Jaz ChangChloride [Moles/Vol]103 mmol/LNormal 98-107The [facility] HospitalComment on above:Performed By: #### BMP ####[facility] Nunhcumiec[address] [place], [place] [address]Dr.Jaz ChangCO2 [Moles/Vol]28.0 mmol/MFaggcm23.0-32.0The [facility] HospitalComment on above: Performed By: #### BMP ####[facility] Pvoiguczta[address] [place], [place] [address]Dr.Hannahisela ChangCreatinine [Mass/Vol]0.74 mg/dLNormal 0.55-1.02The [facility] HospitalComment on above:Performed By: #### BMP ####[facility] Nskuixvcoa[address] [place], [place] [address]Dr. Yilan ChangEGFR-AF ETHIOPIAN>60Normal>=60The [facility] HospitalComment on above: Performed By: #### BMP ####[facility] Ibcpvqeopd[address] [place], [place] [address]Dr.Yilan ChangEGFR-NON AF ETHIOPIAN>60Normal>=60The [facility] HospitalComment on above:Performed By: #### BMP ####[facility] Kkrdh[address]djd[address] [place], [place] [address]Dr.Jaz ChangGlucose [Mass/Vol]197 mg/dLCritically puct21-493Pao [facility] HospitalComment on above: Performed By: #### BMP ####[facility] Edgsenseyt[address] [place], [place] [address]Dr.Jaz ChangPotassium [Moles/Vol]4.5 mmol/LNormal 3.5-5.1The [facility] HospitalComment on above:Performed By: #### BMP ####[facility] Xajqiu[address]btr[address] [place], [place] [address]Dr.Jaz Barajas Sodium [Moles/Vol]138 mmol/EPapphr034-675Iux [facility] HospitalComment on above: Performed By: #### BMP ####[facility] Lrlnlmqgjo[address] [place], [place] [address]Dr.Yilan ChangUrea nitrogen [Mass/Vol]11.0 mg/dLNormal 7.0-18.0The [facility] HospitalComment on above:Performed By: #### BMP ####[facility] Yvabkdumvc[address] [place], [place] [address]Dr. Hannahlan ChangUrea nitrogen/Creatinine [Mass ratio]14.9 mg/mgNoAdena Fayette Medical CenterComment on above:Performed By: #### BMP ####[facility] [address] [address]Dr.Yilan BarajasXR ABD FLAT_UP on 55-19-5544RY ABD FLAT_UPEXAMINATION: XR ABD FLAT_UP HISTORY: Abdominal pain COMPARISON: CT 01/31/2022 FINDINGS: BOWEL GAS PATTERN: Non-obstructed. FREE AIR: None. CALCIFICATIONS: 3 mm left pelvic calcification BONES: No fracture or visible bone lesion. OTHER: Negative. IMPRESSION: 3 mm left pelvic calcification, a phlebolith is favored Nonobstructive bowel gas pattern Electronically authenticated by: JOSE EDUARDO RIVERS Date: 2022-02-06 17:25[facility] DaytonCREATININEon 60-02-7796Frbygphtuh [Mass/Vol]0.74 mg/dLNormal 0.55-1.02[facility] CenterCommckenzie memorial hospital on above:Performed By: #### PROGLCM #### [facility] [address] [place] [address] Dr. Sebastian ChangEGFR-AF ETHIOPIAN>60Normal>=60The [facility] HospitalComment on above:Performed By: #### PROGLCM #### [facility] [address] [place] [address] Dr. Jaz AlamoGFR-NON AF ETHIOPIAN>60Normal>=60[facility] CenterCommckenzie memorial hospital on above:Performed By: #### PROGLCM #### [facility] [address] [place] [address] Dr. Jaz BarajasCT ABDOMEN W CONon 55-70-4361KT ABDOMEN W CONEXAMINATION: CT ABDOMEN W CON HISTORY: Umbilical hernia , pain [...] Electronically authenticated by: JEYSON BLANTON Date: 2022-01-31 18:16[facility] DaytonACETONE SERUMon 54-55-4292YQTOQUSCiahmskyBznzmzCIMFYLWLDrp [facility] HospitalComment on above:Performed By: #### ACETON ####[facility] [address] [address]Dr. Jaz GIVENS BISI ADMITon 64-99-6185GD [Catalytic activity/Vol]58 U/NVxejks32-579Jri [facility] HospitalComment on above:Performed By: #### PREGU #### [facility] [address] [address] [address] Jaz Salguero.MB [Mass/Vol]0.64 ng/mLNormal<=3.60The [facility] Comment on above:Performed By: #### PREGU #### [facility] [address] [address] [address] Jaz BarajasHSTROP5.3 pg/mLNormal4.0-51.3The [facility] HospitalComment on above:Result Comment: CUT-OFF POINTS HAVE BEEN ESTABLISHED BASED ON THE FOURTH UNIVERSAL DEFINITIONS OF MYOCARDIAL INFARCTION. THE UPPER REFERENCE LIMIT (URL) OF TROPONIN, DEFINED THE 99TH PERCENTILE OF cTnI DISTRIBUTION IN A REFERENCE POPULATION, HAS BEEN CONFIRMED THE DECISION THRESHOLD FOR [place] DIAGNOSIS.Performed By: #### PREGU #### [facility] [address] [address] [address] Jaz BarajasMYO30 ng/mLNormal9-82The [facility] HospitalComment on above: Performed By: #### PREGU #### [facility] [address] [place] [address] Dr. Jaz Najera AUTO DIFFon 29-29-6695SXEW #0.1 103/ulNormal0.0-0.1The [facility] HospitalComment on above:Performed By: #### PREGU #### [facility] [address] [place] [address] Dr. Jaz BarajasBasophils/100 WBC (Bld)0.5 %Normal0.2-2.0The [facility] Comment on above:Performed By: #### PREGU #### [facility] [address] [place] [address] Dr. Sebastian ChangEO #0.3 103/ulNormal0.0-0.7The [facility] HospitalComment on above: Performed By: #### PREGU #### [facility] [address] [place] [address] Dr. Jaz Alamoosinophils/100 WBC (Bld)2.5 %Normal0.9-7.0The [facility] Comment on above:Performed By: #### PREGU #### [facility] [address] [place] [address] Dr. Jaz Alamorythrocyte distribution width (RBC) [Ratio]12.8 %Migage66.0-15.0 The [facility] HospitalComment on above:Performed By: #### PREGU #### [facility] [address] [place] [address] Dr. Jaz BarajasHematocrit (Bld) [Volume fraction]41.0 %Xrnnzd98.0-48.0The [facility] HospitalComment on above:Performed By: #### PREGU #### [facility] [address] [place] [address] Dr. Jaz BarajasHemoglobin (Bld) [Mass/Vol]13.6 g/zAMyihzb48.0-16.0The [facility] HospitalComment on above:Performed By: #### PREGU #### [facility] [address] [address] [address] Jaz Mak #0.03 10e3/ulNormal0.00-0.03The [facility] HospitalComment on above:Performed By: #### PREGU #### [facility] [address] [address] [address] Jaz Mak %0.3 %Normal0.0-0.5The [facility] HospitalComment on above: Performed By: #### PREGU #### [facility] [address] [place] [address] Dr. Jaz Osborn #2.7 103/ulNormal1.2-3.8The [facility] HospitalComment on above:Performed By: #### PREGU #### [facility] [address] [place] [address] Dr. Jaz Carrillohocytes/100 WBC (Bld)25.7 %Vwadaq06.5-60.0The [facility] HospitalComment on above:Performed By: #### PREGU #### [facility] [address] [place] [address] Dr. Jaz ValverdeUAL DIFF REQNONormalThe [facility] HospitalComment on above: Performed By: #### PREGU #### [facility] [address] [place] [address] Dr. Jaz Chiang (RBC) [Entitic mass]27.7 ucDyuuoh74.7-34.0The [facility] HospitalComment on above:Performed By: #### PREGU #### [facility] [address] [place] [address] Dr. Jaz Dc (RBC) [Mass/Vol]33.2 g/gXZhknpe29.9-35.2The [facility] HospitalComment on above:Performed By: #### PREGU #### [facility] [address] [place] [address] Dr. Jaz Dc (RBC) [Entitic vol]83.5 sKEvaotk47.0-99.0The [facility] HospitalComment on above:Performed By: #### PREGU #### [facility] [address] [place] [address] Dr. Jaz James #0.8 103/ulNormal0.3-0.8The [facility] HospitalComment on above:Performed By: #### PREGU #### [facility] [address] [place] [address] Dr. Jaz Dejesusocytes/100 WBC (Bld)7.4 %Normal1.7-12.0The [facility] Comment on above:Performed By: #### PREGU #### [facility] [address] [place] [address] Dr. Jaz Paul #6.6 103/ulCritically high1.4-6.5The [facility] Comment on above:Performed By: #### PREGU #### [facility] [address] [place] [address] Dr. Jaz Wardutrophils/100 WBC (Bld)63.6 %Znjgme61.0-75.0The [facility] HospitalComment on above:Performed By: #### PREGU #### [facility] [address] [place] [address] Dr. Jaz Clark mean volume (Bld) [Entitic vol]11.5 fLNormal9.5-13.5The [facility] HospitalComment on above:Performed By: #### PREGU #### [facility] [address] [place] [address] Dr. Jaz BarajasPLT227 103/lxWaueul149-712Edi [facility] HospitalComment on above: Performed By: #### PREGU #### [facility] [address] [place] [address] Dr. Jaz BarajasRBC4.91 106/ulNormal4.20-5.40The [facility] HospitalComment on above:Performed By: #### PREGU #### [facility] [address] [place] [address] Dr. Jaz BarajasWBC10.4 103/ulNormal4.0-11.0The [facility] on above:Performed By: #### PREGU #### [facility] [address] [address] [address] Jaz Ponce CHEST WO W CONon 68-62-2521MCL CHEST WO W CONEXAMINATION: CTA CHEST WO W CON HISTORY: CHEST PAIN, UNSPECIFIED [...] Electronically authenticated by: JEYSON BLANTON Date: 2022-01-09 09:47[facility] DaytonD-DIMERon 42-67-8160E-DIMER0.56 mg/L FEUCritically high 0.19-0.50The [facility] on above:Result Comment: test repeated critical value verifiedPerformed By: #### DDIM, PT, PTT #### [facility] [address] [place], [place] [address] Dr. Jaz Will-DIMER COMMENTSSEE BELOWPomerene Hospital on above:Result Comment: Increases in D-Dimer concentration observed with thromboembolic events [...] stress, and generalized hospitalization. Performed By: #### DDIM, PT, PTT #### [facility] [address] [place] [address] Dr. Jaz Reed URINE PROFILEon 60-33-3931Fbmlhviev Ql (U)NegativeNormal NEGATIVELouis Stokes Cleveland Va Medical CenterComment on above:Performed By: #### PROGLCM #### [facility] [address] [place] [address] Dr. Jaz BarajasClarity (U)CLEARNormalCLEARLouis Stokes Cleveland Va Medical CenterComment on above: Performed By: #### PROGLCM #### [facility] [address] [place] [address] Dr. Jaz BarajasColor (U)YELLOWNormalYELLOWLouis Stokes Cleveland Va Medical CenterComment on above: Performed By: #### PROGLCM #### [facility] [address] [place] [address] Dr. Jaz Larsen micrscopic examination will be performed if indicated. NormalLouis Stokes Cleveland Va Medical CenterCommckenzie memorial hospital on above:Performed By: #### PROGLCM #### [facility] [address] [place] [address] Dr. Jaz BarajasGlucose Ql (U)500 mg/dlAbnormalNEGGreene Memorial Hospital Comment on above:Performed By: #### PROGLCM #### [facility] [address] [place] [address] Dr. Jaz BarajasHemoglobin Ql (U)NegativeNormalNEGGreene Memorial Hospital Comment on above:Performed By: #### PROGLCM #### [facility] [address] [place] [address] Dr. Jaz BarajasKetones Ql (U)NegativeNormalNEGATIVENewark Hospital on above:Performed By: #### PROGLCM #### [facility] [address] [place] [address] Dr. Jaz BarajasLEUKOCYTESNegativeNormalNEGATIVEThe Karl HospitalComment on above:Performed By: #### PROGLCM #### [facility] [address] [address] [address] Jaz Reina Ql (U)NegativeNormalNEGATIVEThe [facility] HospitalComment on above:Performed By: #### PROGLCM #### [facility] [address] [address] [address] Jaz Ventura (U)6.0 [pH]Normal5-9The [facility] HospitalComment on above: Performed By: #### PROGLCM #### [facility] [address] [address] [address] Jaz BarajasSPEC GRAVITY>=1.168Arzpnlel7.005-<=1.025The [facility] Comment on above:Performed By: #### PROGLCM #### [facility] [address] [place] [address] Dr. Jaz Moura PROTEINNegativeNormalNEGATIVE/ TRACEThe [facility] Comment on above:Performed By: #### PROGLCM #### [facility] [address] [place] [address] Dr. Jaz Prakash MICRO INDNOT INDICATEDNormalThCleveland Clinic Fairview HospitalComment on above:Performed By: #### PROGLCM #### [facility] [address] [place] [address] Dr. Jaz Tannerbilinogen Qn (U)0.2 {Oxana'U}/dLNormal0.2 - 1.0The [facility] HospitalComment on above:Performed By: #### PROGLCM #### [facility] [address] [place] [address] Dr. Jaz Ventura VENOUS BLOODon 64-45-0388RUO6 TWJBFN72.2 mmHgCritically low 40.0-52.0The [facility] HospitalCommckenzie memorial hospital on above:Performed By: #### PHVEN #### [facility] [address] [place] [address] Dr. Jaz Ventura VENOUS7.581Nxizog1.330-7.430The [facility] HospitalComment on above:Performed By: #### PHVEN #### [facility] [address] [address] [address] Jaz BarajasPREGNANCY URon 29-73-8651DHOWOKQWZ, QUALNegativeNormalNEGATIVEThe [facility] HospitalComment on above:Performed By: #### PREGU #### [facility] [address] [address] [address] Jaz BarajasPROF 14(COMP METB)on 33-55-0963Yiuoqmb [Mass/Vol]3.2 g/dL Critically low3.4-5.0The [facility] HospitalComment on above:Performed By: #### PREGU #### [facility] [address] [address] [address] Jaz BarajasAlbumin/Globulin [Mass ratio]0.8 {ratio}NormalThe [facility] HospitalComment on above:Performed By: #### PREGU #### [facility] [address] [place] [address] Dr. Jaz BeebeP [Catalytic activity/Vol]109 U/AZndyxj07-438Ogn [facility] HospitalComment on above:Performed By: #### PREGU #### [facility] [address] [address] [address] Jaz Sahu [Catalytic activity/Vol]95 U/LCritically fdsa09-01Yhz [facility] HospitalComment on above:Performed By: #### PREGU #### [facility] [address] [address] [address] Jaz Rodriguez gap [Moles/Vol]11.7 mmol/LNormalThe [facility] Comment on above:Performed By: #### PREGU #### [facility] [address] [address] [address] Jaz BarajasAST [Catalytic activity/Vol]44 U/LCritically jnwg35-41Kpo [facility] HospitalComment on above:Performed By: #### PREGU #### [facility] [address] [place] [address] Dr. Jaz BarajasBilirubin [Mass/Vol]0.3 mg/dLNormal0.2-1.0The [facility] Comment on above:Performed By: #### PREGU #### [facility] [address] [address] [address] Jaz BarajasCalcium [Mass/Vol]8.8 mg/dLNormal8.5-10.1The [facility] Comment on above:Performed By: #### PREGU #### [facility] [address] [address] [address] Jaz BarajasChloride [Moles/Vol]102 mmol/DHialgn00-445Ptl [facility] Comment on above:Performed By: #### PREGU #### [facility] [address] [address] [address] Jaz BarajasCO2 [Moles/Vol]25.3 mmol/ZXabmld21.0-32.0[facility] Comment on above:Performed By: #### PREGU #### [facility] [address] [address] [address] Jaz BarajasCreatinine [Mass/Vol]0.86 mg/dLNormal0.55-1.02[facility] CenterComment on above:Performed By: #### PREGU #### [facility] [address] [address] [address] Jaz lAamoGFR-AF ETHIOPIAN>60Normal>=60The [facility] HospitalComment on above:Performed By: #### PREGU #### [facility] [address] [address] [address] Jaz AlamoGFR-NON AF ETHIOPIAN>60Normal>=60The [facility] HospitalComment on above:Performed By: #### PREGU #### [facility] [address] [address] [address] Jaz BarajasGlobulin (S) [Mass/Vol]3.9 g/dLNormalThe [facility] HospitalComment on above:Performed By: #### PREGU #### [facility] [address] [address] [address] Jaz BarajasGlucose [Mass/Vol]230 mg/dLCritically qsdo54-602Jef [facility] HospitalComment on above:Performed By: #### PREGU #### [facility] [address] [address] [address] Jaz BarajasPotassium [Moles/Vol]4.0 mmol/LNormal3.5-5.1The [facility] Comment on above:Performed By: #### PREGU #### [facility] [address] [place] [address] Dr. Jaz BarajasProtein [Mass/Vol]7.1 g/dLNormal6.4-8.2[facility] Comment on above:Performed By: #### PREGU #### [facility] [address] [place] [address] Dr. Jaz BarajasSodium [Moles/Vol]135 mmol/LCritically vml706-183Rke [facility] HospitalComment on above:Performed By: #### PREGU #### [facility] [address] [place] [address] Dr. Jaz BarajasUrea nitrogen [Mass/Vol]15.0 mg/dLNormal7.0-18.0[facility] CenterComment on above:Performed By: #### PREGU #### [facility] [address] [place] [address] Dr. Jaz Raza nitrogen/Creatinine [Mass ratio]17.4 mg/mgNoAdena Fayette Medical CenterComment on above:Performed By: #### PREGU #### [facility] [address] [place] [address] Dr. Jaz BarajasPROTIMEcorazon 72-12-5824FPL Coag (PPP) [Relative time]0.96 {INR} NormalLouis Stokes Cleveland Va Medical CenterComment on above:Performed By: #### DDIM, PT, PTT #### [facility] [address] [place] [address] Dr. Jaz Macdonald GUIDELINESSEE BELOWKettering Health DaytonComment on above:Result Comment: DESIRED INR: 2.0 - 3.0 CONDITIONS NOT LISTED BELOW 2.5 - 3.5 FOR PROSTHETIC HEART VALVE REPLACEMENT 2.5 - 3.5 RECURRENT THROMBOSIS Performed By: #### DDIM, PT, PTT #### [facility] [address] [place] [address] Dr. Jaz Casanova Coag (PPP) [Time]10.4 sNormal9.0-11.6The [facility] Comment on above:Performed By: #### DDIM, PT, PTT #### [facility] [address] [place] [address] Dr. Jaz Muller 43-49-7322bDDO Coag (Bld) [Time]28.8 mIeojzk75.3-36.2[facility] Va Medical CenterComment on above:Performed By: #### DDIM, PT, PTT #### [facility] [address] [place] [address] Dr. Jaz French, HIGH SENSITIVITYon 14-13-2371YHLHOU4.5 pg/mLNormal 4.0-51.3The [facility] HospitalComment on above:Result Comment: CUT-OFF POINTS HAVE BEEN ESTABLISHED BASED ON THE FOURTH UNIVERSAL DEFINITIONS OF MYOCARDIAL INFARCTION. THE UPPER REFERENCE LIMIT (URL) OF TROPONIN, DEFINED THE 99TH PERCENTILE OF cTnI DISTRIBUTION IN A REFERENCE POPULATION, HAS BEEN CONFIRMED THE DECISION THRESHOLD FOR [place] DIAGNOSIS.Performed By: #### PROGLCM #### [facility] [address] [place] [address] Dr. Jaz Chino 62-76-8944KOQ6.769 uIU/mLNormal0.358-3.740[facility] Va Medical CenterComment on above:Performed By: #### PREGU #### [facility] [address] [place] [address] Dr. Jaz Young [facility] HospitalComment on above: Result Comment: <0.34 UIU/ml HYPERTHYROID 0.34-5.60 UIU/ml EUTHYROID >5.60 UIU/ml HYPOTHYROIDPerformed By: #### PREGU #### [facility] [address] [place] [address] Dr. Jaz BarajasXR CHEST 1 Von 29-56-8271FA CHEST 1 VEXAMINATION: XR CHEST 1 V HISTORY: CHEST PAIN, UNSPECIFIED COMPARISON: [...] authenticated by: JOSE EDUARDO RIVERS Date: 2022-01-09 08:29[facility] Vital Signs Date TimeVital SignValuePerforming FhuzbybvbDkoczeqv05-84-6290 13:22-0400Body oxggrj317.02 Josselineisa Aichholz [employer] Work Phone: [phone]10-08-2025 13:22-0400 Body mass index (BMI) [Ratio]40.6 kg/m2Lisa Aichholz [employer] Work Phone: [phone]10-08-2025 13:22-0400 Body swbeiwebzvs84.5 [degF]Ariane Aichholz [employer] Work Phone: [phone]10-08-2025 13:22-0400 Body .98 kgLisa Aichholz [employer] Work Phone: [phone] [address]10-08-2025 13:22-0400 Diastolic blood qgtkcoxf31 mm[Hg]Ariane Aichholz [employer] Work Phone: [phone] [place], [place] 3314710-08-2025 13:22-0400 Heart rate66 /minLisa Aichholz [employer] Work Phone: [phone] [place], [place] 3314710-08-2025 13:22-0400 Respiratory rate18 /minLisa Aichholz [employer] Work Phone: [phone] [address]10-08-2025 13:22-0400 SaO2% (BldA) [Mass fraction]98 %Ariane Aichholz [employer] Work Phone: [phone]10-08-2025 13:22-0400 Systolic blood eesbmsjs694 mm[Hg]Ariane Pérezweston [employer] Work Phone: [facility]10-16-2024 17:05-0400 Body fjettq763 cmLisa Joselilliez [employer] Work Phone: [facility] CenterAdkiksdlkr38-65-8394 17:05-0400Body mass index (BMI) [Ratio]43.65 kg/m2Ariane Pérezz [employer] Work Phone: [facility] CenterRsfkpdjmcy75-13-4492 17:05-0400Body temperature 98.8 [degF]Ariane Garcialilliez [employer] Work Phone: [facility] CenterBzgwqcgvtl02-42-4147 17:05-0400Body uzbqlg739.77 kgLisa Pérezz [employer] Work Phone: [facility] CenterXstqqqlqwd91-63-7909 17:05-0400Diastolic blood aogdtgyr64 mm[Hg]Ariane Pérezz [employer] Work Phone: [facility] CenterAbczcliekc74-78-6813 17:05-0400Heart rate81 /min Arianecl Pérezz [employer] Work Phone: [facility] CenterNvqlbibbxk90-61-4381 17:05-0400Respiratory rate18 /minLisa Pérezz [employer] Work Phone: [facility] CenterGbetgnqhsz93-78-7485 17:05-6957NnT7% (BldA) [Mass fraction]98 %Ariane Pérezz [employer] Work Phone: [facility] CenterEujtgfjuoa46-93-9763 17:05-0400Systolic blood heuitkje449 mm[Hg]Ariane Joseholz [employer] Work Phone: [facility] CenterNdrccqkugb25-66-2133 12:54-0400Body temperature 97.88 [degF]Riky Le [facility]03-28-2024 12:54-0400 Diastolic blood pzjjvsui14 mm[Hg]Riky Le [facility]03-28-2024 12:54-0400Heart rate78 /Francisco Le [facility]03-28-2024 12:54-0400 Respiratory rate20 /minRiky Le [facility]03-28-2024 12:54-3845LsX0% (BldA) [Mass fraction]98 %Riky Le [facility]03-28-2024 12:54-0400 Systolic blood qdsetwuq328 mm[Hg]Riky Le [facility] Encounters Encounter DateEncounter TypeCare ProviderFacilityStart: 06-08-2025 End: 95-60-4290rbrsusoodiPmcf J Aichholz [employer] Work Phone: [facility] Work Phone: Start: 06-08-2025 End: 43-58-1738Uncosxp encounter procedureLisa Marc Wells [employer]-[facility] Work Phone: Start: 06-23-2024 End: 87-02-7613JuutwtQrsv Aichholz [employer] Work Phone: noms CWM FMComment on above:Yeast infection (Primary Dx)Start: 06-16-2024 End: 59-77-9081Drbwfa outpatient visit 25 minutesLisa Russell CHANEY Work Phone: noms CWM FMComment on above:Encounter for well woman exam with routine gynecological exam (Primary Dx); Vaginal discharge; Screening for cervical cancer; Class 3 severe obesity due to excess calories without serious comorbidity with body mass index (BMI) of 40.0 to 44.9 in adult (CMS/HCC); Generalized anxiety disorder with panic attacks (CMS/HCC)Start: 06-16-2024 End: 19-48-9556gegdfcrwfcNJAH AICHHOLZNot AvailableStart: 06-16-2024 End: 27-87-7574Qevgny flowsheetAriane Wells [employer] Work Phone: noms CWM FMStart: 06-16-2024 End: 30-29-2124Mwuong flowsheetLisa Wells [employer] Work Phone: noms CWM FMStart: 06-16-2024 End: 03-12-9592Dlssofkjz Result EncounterLisa Wells [employer] Work Phone: noms External Department UnsolicitedStart: 06-16-2024 End: 22-99-3235Orazwni encounter procedureLisa Wells [employer] Work Phone: noms HealthcareStart: 05-30-2024 End: 81-37-2226Qgqntyqbs Result EncounterGeneric External Data ProviderNOMS External Department UnsolicitedStart: 05-30-2024 End: 34-33-9959Dsoylrnve Result EncounterGeneric External Data ProviderNOMS External Department UnsolicitedStart: 05-26-2024 End: 86-04-2281CpbupaDvmw Aichholz [employer] Work Phone: noms CWM FMComment on above:Candidiasis of vagina (Primary Dx)Start: 05-11-2024 End: 55-47-5281Frjekn outpatient visit 25 minutesNatalie A Felter CLEANING CUSTODIAN-ELECTRICAL DRAFTER Work Phone: noms [facility] DERMComment on above: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CMS/HCC)Start: 05-11-2024 End: 10-35-9094mfsbfofxjmFRROMMD A FELTERNot AvailableStart: 05-11-2024 End: 78-69-6405Ekpiyq flowsheetNatalie A Felter CLEANING CUSTODIAN-ELECTRICAL DRAFTER Work Phone: noms SWS DERMStart: 05-11-2024 End: 06-89-8964Mxfvdn flowsheetNatalie A Felter CLEANING CUSTODIAN-ELECTRICAL DRAFTER Work Phone: noms SWS DERMStart: 04-29-2024 End: 06-49-5131Gasjyum encounter procedureNatalie A Felter CLEANING CUSTODIAN-ELECTRICAL DRAFTER Work Phone: noms SWS DERMComment on above:Rash and other nonspecific skin eruption (Primary Dx)Start: 04-29-2024 End: 56-75-8501heavolsvbaONFVLYJ A FELTERNot AvailableStart: 04-29-2024 End: 14-91-5225Bduyhw flowsheetNatalie A Felter CLEANING CUSTODIAN-ELECTRICAL DRAFTER Work Phone: [facility] SWS DERMStart: 04-29-2024 End: 09-45-1242Qlmbcz flowsheetNatalie A Felter CLEANING CUSTODIAN-ELECTRICAL DRAFTER Work Phone: noms SWS DERMStart: 03-16-2024 End: 65-19-5012buuruijxayMTGY AICHHOLZNot AvailableStart: 02-02-2024 End: 55-20-7893ajhwhfkobpCntoaaj Vytautas Giedraitis Facility:[facility] Start: 01-15-2024 End: 08-21-2770iiuwzfsrrdBBOK AICHHOLZNot AvailableStart: 12-25-2023 End: 15-43-2756btijwepbngNRUP AICHHOLZNot AvailableStart: 11-27-2023 End: 88-61-0971Qtddyofgp department patient visitRiky LeFacility:[facility] Start: 11-27-2023 End: 20-74-6108Nluzabjnv department patient visitRiky Le [facility] Start: 12-14-2022 End: 58-60-3134gbzbuyzrprFRC ARIANE AICHHOLZFacility:Y6Pxwhe: 12-11-2022 End: 11-87-5985fwhebrsoxmSGE ARIANE AICHHOLZFacility:Z4Lcdeq: 11-15-2022 End: 04-57-8380mydbjjhwolPY SKY DAVIS .Facility:V6Acuao: 11-10-2022 End: 60-27-7438beidmbqohaHE QUANG LANDA .Facility:U3Xvyyt: 08-18-2022 End: 93-64-2674cajvcewsbtFPFRBT RODRIGUEZ .Facility:H9Oxauq: 07-09-2022 End: 42-01-4453qfbwkgcryrFX SKY DAVIS .Facility:G7Bfqlo: 05-14-2022 End: 01-87-6147ycgjidhdgwOSR ARIANE AICMARLEYFacility:Y3Pnuek: 99-18-2813Cvusjsfkd for preprocedural laboratory examinationDR [facility] Start: 05-08-2022 End: 11-12-6503oxasiouqhmWN ST[facility]ENTERFacility:G3Pcisz: 05-08-2022 End: 48-55-5227Ndvmkxsml for preprocedural laboratory examinationDR [facility] Centercility:V8Vjbta: 04-18-2022 End: 08-78-4928wjsrtjdmjfPBY ARIANE AICHHOLZFacility:O4Iyugf: 04-01-2022 End: 67-46-8654flcyunsaaiZZQ ARIANE AICHHOLZFacility:G1Xpaau: 02-06-2022 End: 51-35-1054hlebzlepnxNMF ARIANE AICHHOLZFacility:B4Uhxut: 01-31-2022 End: 82-66-8082tbylaziuhoPFTEXKPG EBERLYFacility:P1Zkvuh: 91-62-4134dgdrqbjarp ELECTRICAL DRAFTER ARIANE AICHISABELLAFacility:Y5Zwhvv: 01-09-2022 End: 84-00-2105nyfkoimymuDWSYPQ RODRIGUEZ .Facility: Procedures DateProcedureProcedure DetailPerforming ClinicianStart: 53-46-0463DVI,APTIMA HPV,AGE GDLNAriane Wells [employer] Work Phone: Start: 08-79-1854Olqcsnjoqkn observation [Identifier] in Cervix by Cyto stainAriane Wells [employer] Work Phone: Start: 53-59-1517KNEUL RESPIRATORY CULTUREGeneric External Data ProviderStart: 06-24-5398NAAV / NAIL BIOPSYNatalie A Felter CLEANING CUSTODIAN-ELECTRICAL DRAFTER Work Phone: Start: 36-62-3570Xfyottaltgc observation [Identifier] in Cervix by Suly Owens APRN-ELECTRICAL DRAFTER Work Phone: Start: 03-49-2048NbvdhrmolyqYrfds Lewis Comment on above:normalStart: 63-01-3738Qqvuztq medicine imaging procedureRiky Le Comment on above:HIDA scan- normalStart: 10-30-2016 EsophagogastroduodenoscopyRiky Le Comment on above:esophagitisStart: 05-27-2016 PolysomnographyRiky Le Comment on above:CPAP @ 13cm H2O, small quattro, ramp time 20 minutesStart: 99-97-0295PhicqonlkwagxZedgi Lewis History of ankle surgeryRiky Le History of tonsillectomyHx of tonsillectomyLisa Russell [employer] Work Phone: Tympanic ventilation tube (physical object)Riky Le Tympanic ventilation tube (physical object)Riky Le Plan of Treatment DateCare ActivityDetailAuthorStart: 72-78-7100Qnkocrnxo for malignant neoplasm of cervixNOMS HealthcareStart: 74-54-2635Byvdd screening for proteinDiabetes: Urine Protein ScreeningNOMS HealthcareStart: 08-10-2024 End: 32-24-0363Rgkzkfp encounter rturmioju29/10/2024 3:40 PM EST Office Visit [facility] [address] [place] [address] Joann Owens APRN-CNP [address] [place] [address] NOMS SWS DERMStart: 07-26-2024 End: 41-74-0171Buvvaup encounter wzvizerfy90/25/2024 5:00 PM EST Office Visit [facility] [address] [place] [address] Ariane Wells NP [address] [place] [address] [facility] CWM FMStart: 06-16-2024 End: 67-21-7267KYAIZSTB IMAGING PAP AND HPV DNA REFLEX HPV 16,18THINPREP IMAGING PAP AND HPV DNA REFLEX HPV 16,18 Pathology and Cytology Routine Encounter for wellwoman exam with routine gynecological exam Expected: 06/16/2024 (Approximate), Expires: 06/16/2025NOID HealthcareComment on above:Expected: 06/16/2024 (Approximate), Expires: 06/16/2025Start: 06-16-2024 End: 34-80-4454RKJNFMKUY (HTRX)VAGINITIS (HTRX) Lab Routine Vaginal discharge Expected: 06/16/2024 (Approximate), Expires: 06/16/2025[facility] Work Phone: Comment on above:Expected: 06/16/2024 (Approximate), Expires: 06/16/2025Start: 06-16-2024 End: 95-46-6822Kaafunu encounter procedureNOMS CWM FMComment on above:Arrived Start: 05-11-2024 End: 42-83-7314Xsldjeq encounter procedureNOMS SWS DERMComment on above:Arrived Start: 04-29-2024 End: 03-87-7051Jpoaops encounter sqecxbrju44/29/2024 3:25 PM EDT Office Visit [facility] [address] [place] [address] Joann Owens APRN-FORREST [address] [place], [place] [address] Granuloma annulareNOMS SWS DERMComment on above:Granuloma annulareStart: 74-66-8249Bfyirtsznq A1c measurementDiabetes: Hemoglobin V0KKUDD HealthcareStart: 08-67-0041Xmuzxghpi for malignant neoplasm of cervixALTA VIEW H[facility]ITAL HealthcareStart: 10-59-1720Krohlwttz for malignant neoplasm of cervixHPV/CotestNOID HealthcareStart: 80-29-3235Ixbzmhpp screeningDiabetes: Retinopathy ScreeningALTA VIEW HOSPITAL HealthcareComprehensive metabolic 2000 panel - Serum or PlasmaLima Memorial HospitalCytology Cervical or vaginal smear or scraping studyPap smear Pathology and Cytology Routine Encounter for well woman exam with routine gynecological exam Ordered: 06/16/2024[facility] CenterComment on above:Ordered: 06/16/2024ermatopathology examDermatopathology exam Pathology and Cytology Timed Rash and other nonspecific skin eruption ReleaseUpon Ordering for 1 Occurrences starting 04/29/2024[facility] Work Phone: comment on above:Release Upon Ordering for 1 Occurrences starting 04/29/2024[facility] Immunizations Immunization DateImmunizationNotesCare PuxqcpfqCsyyjdxc14-48-8553Fvndhet SARS-CoV-2 VaccinationNatalie Roman CLEANING 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 [id number] 2..1.746604.3.57[id number] 2.0.1.657056.3.57[id number] 2.0.1.320744.3.579.2.46029-31-7169Eccjorl1855559 2.0.1.082713.3.579.2.01624-51-4236Bvcrvzp0947287 2.16.840.1.585321.3.579.[id number] 2.16.840.1.984166.3.579.2.93590-45-2215Ocpxgdo9587737 2.16.840.1.260269.3.579.2.33375-97-8687Vtfceqo1271369 2.16.840.1.281678.3.579.2.54857-82-7642Fbiexdm2829457 2.16.840.1.617414.3.579.2.88752-90-5603Ujyxqxr5322136 2.16.840.1.310571.3.579.2.61383-11-4453Scgnxsh9311703 2.16840.1.551469.3.579.2.88486-08-6152Jfsqojs4099715 2.16.840.1.929303.3.579.2.42963-54-1928Qghilsg53866288 2.16.840.1.713951.3.579.2.62341-68-8878Pspjclh973604828 2.16.840.1.267478.3.579.2.81624-90-8554Dxmjbdm2511312 2.16.840.1.993306.3.579.2.354151-92-6191Oxlsotz6778601 2.16.840.1.992951.3.579.2.359198-51-6274Wcgmyet9971355 2.16.840.1.325602.3.579.2.119818-55-1630Mjtdjrl8211090 2.16.840.1.091143.3.579.2.087631-76-2384Hdiaomz4073063 2.16.840.1.681181.3.579.2.368027-87-5304Opnyrxl6867628 2.16.840.1.263890.3.579.2.210246-25-3080Onuveez0981834040732-15-0487Hquesvf 51108712IqejvexLapjtz /[id number] 56q531b2-g903-6qf0-24v8-mu6p4pw46e57 UnknownParamount [id number] 5b670ew1-5h2n-0981-jn8g-4214040h3114 Social History DateTypeDetailFacilityStart: 80-41-2630Xowgsbx smoking statusHeavy tobacco smoker (finding)[facility] BellevueTobacco smoking statusNeverGeneral Surgery BellevueStart: 03-16-2024 End: 19-74-0201Ykb Assigned At [facility] Centertart: 12-25-2023 End: 38-63-8091Pxqgzsb smoking status NHISSmokes tobacco dailyNOMS Healthcare Start: 31-97-9253Rzpujmm use and exposureSmokeless tobacco non-userNOMS HealthcareStart: 04-29-2024 End: 73-35-9789Gjkvvvajw beverage intakeEx-drinker (finding)[facility] Start: 03-16-2024 End: 95-90-8199Eplgqzf of Social functionNOMS HealthcareStart: 87-40-6315Wguyore Commentcaffine: coffee: 20oz and soda: 1.5L bottle dailyNOMS HealthcareStart: 99-72-3605Utk assigned at birthNot on fileNOMS HealthcareSexFemale (finding) [facility] Hospitaltart: 47-45-6367Mrz Assigned At [facility] Medical Equipment Procedure CodeEquipment CodeEquipment Original TextEquipment IdentifierDates [id number]: 01-28-2023 End: 03-16-2025 Functional Status HzhgCymsncyxgtNojwkiSzmqyxhi66-64-6209Suqqrquyjv StatusN/[facility] Clinical Notes 05-14-2022 to 06-08-2025 Note Date & PvztSenfOkblrfjq26-74-5443 Hospital Discharge instructionsAmbulatory Orders* AMB POC Hgb A1C Time Frame: 06/08/25, Location: Determined By Patient [facility] Work Phone: 1(534) 135-840010-16-2024 History of Present illness Narrative* Ariane Wells NP - 06/16/2024 6:00 PM EDTAssociated Problem(s): Generalized anxiety disorder with panic attacks (CMS/HCC) Worsening anxiety while in the car Will try increasing buspar 10mg TID Fu in 6 weeks * Ariane Wells NP - 06/16/2024 5:57 PM EDTAssociated Problem(s): Encounter for well woman exam with routine gynecological exam Thin prep Fu as per PAP indications * Ariane Wells NP - 06/16/2024 5:57 PM EDTAssociated Problem(s): Vaginal discharge Health trax vaginitis exam * ANAHI NATH - 06/16/2024 5:00 PM EDT Pt is having normal periods in the [...] No odor however she is having itchiness * Ariane Wells NP - 06/16/2024 5:00 PM EDT Images from the original note were not included. Subjective Marilia Vera is a 34 y.o. female who presents for No chief complaint on file. Review of Systems Objective Resp. rate 18, height 5' 3 , weight 246 lb 6.4 oz. * Ariane Wells NP - 06/16/2024 5:00 PM EDT Images from the original note were not [...] and vaginal discharge. Negative for decreased urine volume,difficulty urinating, dysuria, frequency, hematuria, menorrhagia and missed [...] nursing note reviewed. Exam conducted with a switch repairer present. Constitutional: General: She is not in [...] (BMI) of 40.0 to 44.9 in adult ([facility]) Vaginal discharge Health trax vaginitis exam Relevant Orders VAGINITIS (HTRX) Encounter for well woman exam with routine gynecological exam - Primary Thin prep Fu as per PAP indications Relevant Orders THINPREP IMAGING PAP AND HPV DNA REFLEX HPV 16,18 Pap smear Generalized anxiety disorder with panic attacks ([facility]) Worsening anxiety while in the car Will try increasing buspar 10mg TID Fu in 6 weeks Relevant Medications busPIRone (Buspar) 10 MG tablet Other Visit Diagnoses Screening for cervical cancer documented in this encounterMineral Area Regional Medical CenterSpwyhjieai52-33-1814 History of Present illness Narrative* Joann Owens, AURELIA-FORREST - 05/11/2024 3:25 PM EDT Suture Removal Patient here for suture removal: [...] by PCP for diabetes. If Betamethasone fails toimprove condition recommend ILK injections Related Medications betamethasone dipropionate (Diprolene) 0.05 % ointment Apply to affected areas, up to twice a day when flared, do not use one the face, groin, or underarms, 30 day supply Next Visit: 3 months documented in this encounterMineral Area Regional Medical CenterPradgmgmio46-26-5070 History of Present illness Narrative* ROSA Bee - 04/29/2024 3:25 PM EDT Images from the original note were not included. Rash Location: bilateral lower legs Duration: started on the right lower leg in the last 6 months Severity: mild Quality: itchy at times Modifying Factors: none Associated symptoms: scabby like Treatments tried: Clobetasol cream, used daily -- burned and didn't seem to work and made it appeardarker Current treatments: ^^ ^^ New patient, referred by ROSA Barnard All pertinent medical history, medications, and allergies were reviewed. General Exam: alert , oriented to person, place, and time , normal affect, well appearing Unaccompanied A focused exam completed based on patient reported problems, see below: 1. Rash and other nonspecific skin eruption Right Lower Leg - Anterior [place] patches and plaques Biopsy today, see procedure note. Lesion biopsy - Right Lower Leg - Anterior Type of biopsy: punch Informed consent: discussed and consent obtained Informed consent comment: The risks and benefits were discussed. Risks include, but are not limitedto, bleeding, infection, scarring, pain, & nerve damage. [...] Visit: 14 days s/r documented in this encounterMineral Area Regional Medical CenterRjfmmbvjbb73-45-3665 Hospital Discharge instructions Patient Education 11/27/2023 15:37:23 [...] ice if it does not help with thepain. Squeeze a soft ball or a foam pad as much as possible. This helps to keep the shoulder from swelling. It also helps to strengthen the arm. General instructions Take grfb-zph-lucjpzr and prescription medicines only as told by [...] provider. Document Revised: 05/03/2022 Document Reviewed: 05/03/2022 [employer] Patient Education 2022 [employer]. Follow Up Care 11/27/2023 12:54:30 With:Georgi Pfeiffer Address: [address] [place] [address]- Business (1) When:11/30/2023 15:21:[address] [facility]03-28-2024 Evaluation + Plan noteExtracted from: Title:ED NoteAuthor:Theresa PA-C, JansenDate:11/27/23 Pain in shoulder (M25.519: P ain in unspecified shoulder) Orders: methocarbamol, 1,500 mg = 2 tab(s), Oral, TID, X 3 day(s), # 18 tab(s), Refills(s) 0, Pharmacy: [facility], 160, cm, 11/27/23 12:59:00 EDT, Height/Length Dosing, 114.1, kg, 11/27/23 12:59:00 EDT, Weight Dosing naproxen, 500 mg = 1 tab(s), Oral, BID, PRN for pain, # 20 tab(s), Refills(s) 0, Pharmacy: [facility], 160, cm, 11/27/23 12:59:00 EDT, Height/Length Dosing, 114.1, kg, 11/27/23 12:59:00 EDT, Weight Dosing XR Shoulder Complete Right [facility]04-17-2023 NotePROCEDURE: XR ANKLE RT MIN 3 [...] Electronically authenticated by: HAYDE VAN Date: 2022-12-16 07:21[facility]04-17-2023 NotePROCEDURE: XR KNEE RT 4V or > DATE: 12/14/2022 9:31 AM CDT COMPARISONS: None CLINICAL INDICATION: Pain of right knee joint FINDINGS: There is no evidence of fractures or other osseous abnormalities. No evidence of right knee joint effusion IMPRESSION: Right knee radiographs show no evidence of significant abnormalities. Electronically authenticated by: HAYDE VAN Date: 2022-12-16 07:17[facility]09-13-2022 NoteOPERATIVE NOTE OPERATION DATE: 05/14/2022 PRIMARY CARE PROVIDER: Ariane Wells CNP SURGEON: Rosa Briones M.D. PREOPERATIVE DIAGNOSIS: Left middle ear foreign [...] to the recovery room in good condition.[facility]Evaluation [facility]* Diagnosis Vitamin D deficiency- Primary Type 2 diabetes mellitus without complication, with long-term current use of insulin ([facility]) Class 3 severe obesity due to excess calories without serious comorbidity with body mass index (BMI) of 40.0 to 44.9 in adult ([facility]) Muscle spasm Spasm of muscle Muscle spasm- Primary Spasm of muscle Class 3 severe obesity due to excess calories without serious comorbidity with body mass index (BMI) of 40.0 to 44.9 in adult ([facility]) Type 2 diabetes mellitus without complication, with long-term current use of insulin ([facility]) Current tobacco use Granuloma annulare Other specified erythematous condition Granuloma annulare- Primary Other specified erythematous condition Bipolar disorder, unspecified ([facility]) Bipolar disorder, unspecified Type 2 diabetes mellitus without complication, with long-term current use of insulin ([facility]) Class 3 severe obesity due to excess calories without serious comorbidity with body mass index (BMI) of 40.0 to 44.9 in adult ([facility]) Encounter for well woman exam with routine gynecological exam- Primary Vaginal discharge Leukorrhea, not specified as infective Screening for cervical cancer Screening for malignant neoplasm of the cervix Class 3 severe obesity due to excess calories without serious comorbidity with body mass index (BMI) of 40.0 to 44.9 in adult ([facility]) Generalized anxiety disorder with panic attacks ([facility]) documented in this encounter [facility] HealthcareEvaluation note* Diagnosis Vitamin D deficiency- Primary Type 2 diabetes mellitus without complication, with long-term current use of insulin ([facility]) Class 3 severe obesity due to excess calories without serious comorbidity with body mass index (BMI) of 40.0 to 44.9 in adult ([facility] [facility]) Muscle spasm Spasm of muscle Muscle spasm- Primary Spasm of muscle Class 3 severe obesity due to excess calories without serious comorbidity with body mass index (BMI) of 40.0 to 44.9 in adult ([facility]) Type 2 diabetes mellitus without complication, with long-term current use of insulin ([facility]) Current tobacco use Granuloma annulare Other specified erythematous condition Granuloma annulare- Primary Other specified erythematous condition Bipolar disorder, unspecified ([facility]) Bipolar disorder, unspecified Type 2 diabetes mellitus without complication, with long-term current use of insulin ([facility]) Class 3 severe obesity due to excess calories without serious comorbidity with body mass index (BMI) of 40.0 to 44.9 in adult ([facility]) Encounter for well woman exam with routine gynecological exam- Primary Vaginal discharge Leukorrhea, not specified as infective Screening for cervical cancer Screening for malignant neoplasm of the cervix Class 3 severe obesity due to excess calories without serious comorbidity with body mass index (BMI) of 40.0 to 44.9 in adult ([facility]) Generalized anxiety disorder with panic attacks ([facility]) Yeast infection- Primary [facility] Diagnosis Rash and other nonspecific skin eruption- Primary [facility]* Diagnosis 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[facility]) Type II or unspecified type diabetes mellitus with other specified manifestations, not stated as uncontrolled documented [facility] Diagnosis Candidiasis of vagina- Primary Candidiasis of vulva and vagina documented [facility]* Diagnosis Onset Date Resolution Status Admit Date ASHA (generalized anxiety disorder) acuteOct2024 1:15pmMajor depressive disorder, recurrent, mildacute June 08, 2025 1:15pmNicotine dependenceacuteOctober 2024 1:15pmType 2 diabetes mellitus with insulin therapyacuteOct2024 1:15pmVitamin D deficiencyacuteOct2024 1:15pm [facility] Work Phone: Hospital course Narrative No data available for this section [facility] No data available for this section [facility] HospitalReason for referral (narrative)No reason for referral information availableHocking Valley Community Hospital Work Phone: Summary Purpose Family History Relationship Condition Age at Onset Recorded Date/T kim Not Specified No pertinent family history Unknown brotherHypertensionUnknownfatherDeceasedUnknownHypertensionUnknownHeart disease UnknownDiabetes mellitusUnknown Advance Directives Advance Directive Response Recorded Date/ Time Advance Directives No May 5:12pm Reason for Referral SpecialtyDiagnoses / ProceduresReferred By ContactReferred To Contact Diagnoses 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CMS/HCC) Joann Owens, CLEANING CUSTODIAN-ELECTRICAL DRAFTER [address] [place] [address] [place] [address] Referral IDStatusReasonStart DateExpiration DateVisits RequestedVisits [id number] Chief Complaint and Reason for Visit Chief [...] D deficiency June 08, 2025 1 :15pm Additional Source Comments INFORMATION SOURCE (unrecogn ized section and content) DATE CREATED AUTHOR 12/19/2022 [facility] DATE CREATED AUTHOR AUTHOR'S ORGANIZ ATION 11/29/2023 [facility] DATE CREATED AUTHOR AUTHOR'S ORGANIZ ATION 02/13/2024 [facility] DATE CREATED AUTHOR AUTHOR'S ORGANIZ ATION 06/19/2024 [facility] EPIC Patient Care team informatio n (unrecognized section and content) Team MemberRelationshipSpecialtyStart DateEnd Date Georges Shook MD [address] [place] [phone] PCP - GeneralFamily Medicine02/19/23 Channing Freire MD [address] [place] [address] (Fax) PCP - [facility]12/01/23Team MemberRelationshipSpecialtyStart DateEnd Date Georges Shook MD [address] [place] [address] PCP - GeneralFamily Medicine02/19/23 Channing Freire MD [address] [place] [address] (Fax) PCP - [facility]12/01/23Team MemberRelationshipSpecialtyStart DateEnd Date Georges Shook MD [address] [place] [address] PCP - GeneralFamily Medicine02/19/23 Channing Freire MD [address] [place] [address] (Fax) PCP - [facility]12/01/23Team MemberRelationshipSpecialtyStart DateEnd Date Georges Shook MD [address] [place] [phone] PCP - GeneralFamily Medicine02/19/23 Channing Freire MD [address] [facility] [place] [address] (Fax) PCP - [facility] [place] [facility]12/01/23Team MemberRelationshipSpecialtyStart DateEnd Date Georges Shook MD [address] [place] [address] PCP - GeneralFamily Medicine02/19/23 Channing Freire MD [address] [facility] [place] [address] (Fax) PCP - [facility] [place] [facility]12/01/23Team MemberRelationshipSpecialtyStart DateEnd Date Georges Shook MD [address] [place] [address] PCP - GeneralFamily Medicine02/19/23Team MemberRelationshipSpecialtyStart DateEnd Date Georges Shook MD [address] [place] [address] PCP - GeneralFamily Medicine02/19/23Team MemberRelationshipSpecialtyStart DateEnd Date Georges Shook MD [address] [place] [address] PCP - GeneralFamily Medicine02/19/23Team MemberRelationshipSpecialtyStart DateEnd Date Georges Shook MD [address] [place] [address] PCP - [facility]02/19/23Team MemberRelationshipSpecialtyStart DateEnd Date Georges Shook MD [address] [place] [phone] PCP - [facility] Medicine02/19/23 Channing Freire MD [address] [place] [address] PCP - [facility] [place] [facility]12/01/23 Team Status: Active Member Role Status Dates SNOW Aponte Primary Care Provider Active Team Status: Inactive Member Role Status Dates SNOW Aponte Primary Care Provider Active Start: June 08, 2025 End: June 08, 2025Ariane Wells NP-CAttending ProviderActiveStart: June 08, 2025 End: June 08, 2025 Reason for Visit (unrecogniz ed section and content) ReasonCommentsRashSpecialtyDiagnoses / ProceduresReferred By ContactReferred To ContactDermatology Diagnoses Granuloma annulare Procedures UT OFFICE/OUTPATIENT NEW HIGH MDM 60 MINUTES Ariane Wells NP [address] [place] [address] Joann Owens, CLEANING CUSTODIAN-ELECTRICAL DRAFTER [address] [place] [address] Referral IDStatusReasonStart DateExpiration DateVisits RequestedVisits [id number] Specialty Services Required /[id number] / Staple Removal Goals (unrecognized section and content) Goals may be documented in a n alternate section FOR RECORDS PERTAINING TO PATIENTS WHO ARE [...] BE BASED ON THE PRIMARY CLINICAL RECORDS. [facility]. provides no warranty or guarantee of the accuracy or completeness of information in this document.
--- OUTSIDE RECORDS SUMMARY | 2025-06-21 08:04 | XMS_ITS | Clinical Summary ---
Author Organization [facility] Address [address] [place] [address] Care Team Providers Care Associate Creative Director Name Role Phone Georges Shook MD Primary Care Provider [phone] Channing Freire MD Unavailable [phone] Allergies Active AllergyReactionsCriticalityNoted CdqiRtrmjuftKfoqkrfexoTelb54/25/2024 Medications MedicationSigDispense QuantityRefillsLast FilledStart DateEnd DateStatus traZODone (Desyrel) 50 MG tablet Take 100 mg by mouth at bedtimeActive spironolactone (Aldactone) 50 MG tablet Take 50 mg by mouth DailyActive pravastatin (Pravachol) 20 MG tablet Take 20 mg by mouth in the zbvziza2801/28/2023ctive metFORMIN XR (Glucophage-XR) 500 MG 24 hr tablet Take 1,000 mg by mouth in the morning and 1,000 mg before bedtime.Active pantoprazole (ProtoNix) 40 MG EC tablet Take 40 mg by mouth Daily as needed (GERD)Active magnesium 250 MG tablet 1 (one) time each day at the same timeActive HumuLIN R U-500 KWIKPEN 500 UNIT/ML CONCENTRATED injection INJECT 80 UNITS TWICE A DAY PLUS ISS 15>150 (EXPECT DAILY DOSE 225 UNITS) 11/01/2023ctive insulin lispro (HumaLOG KWIKPEN) 100 UNIT/ML injection as directed SubcutaneousActive OneTouch Ultra test strip USE ONE BEFORE EACH MEAL AND AT ITANYHF2601/28/2023ctive FLUoxetine (PROzac) 40 MG capsule Take 40 mg by mouth DailyActive FLUoxetine (PROzac) 20 MG capsule Take 20 mg by mouth Daily06/03/2023ctive Jardiance 25 MG Take 25 mg by mouth DailyActive Continuous Glucose Sensor (FreeStyle Ksenia 2 Sensor) misc CHANGE SENSOR EVERY 14 DAYS04/03/2023ctive ARIPiprazole (Abilify) 15 MG tablet Take 15 mg by mouth Daily06/03/2023ctive albuterol HFA 90 mcg/act inhaler Inhale 2 puffs every 6 (six) hours if needed for shortness of breath or wheezing Active cyclobenzaprine (Flexeril) 10 MG tablet Indications:Muscle spasmTake 1 tablet (10 mg) by mouth every 12 (twelve) hours if needed for muscle spasms for up to 15 days May take 1/2-1 pill every 12 hours 30 tablet 12/25/2023ctive clobetasol (Temovate) 0.05 % cream Indications:Granuloma annulareApply topically Daily Apply to affected area once a day for up to 8 weeks. No use on face 45 g 01/15/2024ctive gabapentin (Neurontin) 100 MG capsule Take 100 mg by mouth in the morning and 100 mg in the evening and 100 mg before bedtime.02/02/2024ctive tiZANidine (Zanaflex) 4 MG tablet Take 4 mg by mouth03/03/2024ctive betamethasone dipropionate (Diprolene) 0.05 % ointment Indications: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HCC)Apply to affected areas, up to twice a day when flared, do not use one the face, groin, or underarms, 30 day supply 45 g ctive betamethasone valerate (Valisone) 0.1 % cream Indications: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HCC)Apply to affected areas, up to twice a day when flared, do not use one the face, groin, or underarms, 30 day supply 45 g ctive busPIRone (Buspar) 10 MG tablet Indications:Generalized anxiety disorder with panic attacksTake 1 tablet (10 mg) by mouth in the morning and 1 tablet (10 mg) in the evening and 1 tablet (10 mg) before bedtime. 90 tablet ctive fluconazole (Diflucan) 150 MG tablet Indications:Yeast infectionTake one dose every 3 days for 3 doses 3 tablet 06/23/2024ctive Cholecalciferol 125 MCG (5000 UT) chewable tablet ChewActive Active Problems ProblemNoted DateDiagnosed DateYeast /23/2024Vaginal discharge 06/16/2024 Overview (06/16/2024): Letha [id number] EXP 08/31/24 Lot #[id number] Assessment & Plan (06/16/2024 5:57 PM EDT): Health trax vaginitis exam Encounter for well woman exam with routine gynecological exam06/16/2024 Assessment & Plan (06/16/2024 5:57 PM EDT): Thin prep Fu as per PAP indications Generalized anxiety disorder with panic tfwtkkh5606/16/2024 Assessment & Plan (06/16/2024 6:00 PM EDT): Worsening anxiety while in the car Will try increasing buspar 10mg TID Fu in 6 weeks Candidiasis of ijmtic8205/26/2024Type 2 diabetes mellitus without complication, with long-term current use of qcweiai4003/16/2024 Assessment & Plan (03/16/2024 1:22 PM EDT): [...] feet frequently monitoring for open wounds , andalso recommend yearly eye exam. Pt should attempt to remain as physically active as chronic conditions allow, as well as trying to follow a diet low in carbohydrates, and simple sugars. Needs refill of test strips as well Granuloma afevumtf85/16/2024 Assessment & Plan (03/16/2024 1:22 PM EDT): No help with steroid cream Will refer to derm Acquired deformity of right ankle12/25/2023ADHD12/25/2023ipolar disorder 12/25/20236552Gsousyrhys31/25/2024MI 45.0-49.9, adult12/25/2023lass 3 severe obesity due to excess calories with body mass index (BMI) of 40.0 to 44.9 in adult12/25/2023onductive hearing loss, solxpbdqf34/25/2024urrent tobacco use 12/25/2023DD (degenerative disc disease), czjfob2812/25/2023ysfunction of both eustachian tubes12/25/2023Female nlldvumdsqw80/25/6866Bcbbclgz22/25/2024OSA (obstructive sleep apnea)12/25/2023Osteochondral defect of talus12/25/2023COS (polycystic ovarian syndrome)12/25/2023Umbilical mupixa9512/25/2023Vitamin D fakolanjaq55/25/2024Muscle spasm12/25/2023 Assessment & Plan (01/15/2024 3:11 PM EDT): Refaxed to [facility] Pain Mgmt Assessment & Plan (12/25/2023 2:24 PM EDT): Try muscle relaxer, will refer to pain mgmt [facility] Fu in 3 weeks Resolved Problems ProblemNoted DateDiagnosed DateResolved DateForeign body granuloma of soft tissue, not elsewhere classified, unspecified ankle and foot/ Qngxjpwk32/ Assessment & Plan (01/15/2024 3:10 PM EDT): Reviewed A1c level, needs to get an appt with Marija Assessment & Plan (12/25/2023 2:25 PM EDT): Has not been to see Endo for several months Encounters DateTypeDepartmentCare OfweRbwgafimwiq61/14/2025Patient Outreach [facility] [address] [place] [address] Kenya Aguila LSW 04/14/2025bstract [facility] [place] [place] [address] [facility] [place] [address] Ariane Wells NP from Last 3 Months Immunizations ImmunizationAdministration DatesNext DueModerna SARS-CoV-2 Fehrvdwsezc48/20/2021 Family History Medical HistoryRelationNameCommentsDiabetesFatherBreast cancerMaternal BsosbfhdadwYxqdbizwiqskAywroeTxmmkaoiSzjhIyoagbEsdmievqBvvccqo8BrqldJlumbj IogodyejVytm-Ywiezca4OeibhYauz-Uqqjps1FfyosEjvciyzq GrandmotherMotherAliveSon1 Alive Social History Tobacco UseTypesPacks/DayYears UsedDateSmoking Tobacco: Every DaySmokeless Tobacco: Never Tobacco Cessation:Ready to Q uit: Not Asked; Counseling Given: Not Answered Alcohol UseStandard Drinks/WeekCommentsNot Currently0 (1 standard drink = 0.6 oz pure alcohol)caffine: coffee: 20oz and soda: 1.5L bottle dailyPHQ-2AnswerDate RecordedPatient Health Questionnaire-2 Gljzy4294CommentsUnknown Sex and Gender InformationValueDate RecordedSex Assigned at BirthNot on file Legal GnfCjkaep12/15/2023 9:50 PM EDTGender IdentityNot on fileSexual OrientationNot on file Last Filed Vital Signs Vital SignReadingTime TakenCommentsBlood Dohnlfua533/801 5:05 PM EDT Rbhui407906/16/2024 5:05 PM YMFPrtzwlhbwdy91.1 ??C (98.8 ??F)06/16/2024 5:05 PM EDTRespiratory Aeah5302 5:05 PM EDTOxygen Qvirejqaoj93%06/16/2024 5:05 PM EDTInhaled Oxygen Concentration--Mhvsxi506 kg (246 lb 6.4 oz)06/16/2024 5:05 PM KGWCarjqw755 cm (5' 3 )06/16/2024 5:05 PM EDTBody Mass Index43.6506/16/2024 5:05 PM EDT Plan of Treatment Health MaintenanceDue DateLast DoneCommentsDiabetes: Retinopathy Screening 1998HPV/Zwekpb8006/07/2018Diabetes: Hemoglobin A1C/04/2024 Diabetes: Urine Protein Nwngfvsja32/ervical Cancer Screening 06/16/2027Pap Smear/, 06/20/2020Influenza VaccineDiscontinued Insurance Care Teams Team MemberRelationshipSpecialtyStart DateEnd Date Georges Shook MD PCP - GeneralFamily Medicine02/19/23 Channing Freire MD [address] [place] [address] PCP - [facility]12/01/23
--- OUTSIDE RECORDS SUMMARY | 2025-06-21 08:04 | XMS_ITS | Patient Health Record ---
Author Organization [facility] [employer] Address [address] [place] [address] Care Team Providers Care Superintendent Pier Name Role Phone Dr. Raymond Macario Primary Care Provider Reason For Referral No Information Medications Medication SIG (Take, Route, Frequency, Duration) Notes Start Date End Date Status Ibuprofen 800 MG Tablet 1 tablet with fo od or milk as needed Orally Three times a day 09/13/2021ctiveIbuprofen 800 MG Tablet1 tablet with food or milk as needed Orally Three times a day2Active Plan Of Treatment No Information Insurance Providers Payer Name Payer Address Payer Phone Subscriber Number Group Number Insured Name Patient Relationship to Insured Coverage Start Date Coverage End Date z[employer]-termed 10/01/22 [address] [place] [address] [id number] Bolivar OSBORNE - patient is the bgykncp8609/01/2021zMEDICAID CFC after [employer]-termed 10/01/22[address] [place] [id number] PRETTY - patient is the odvqpsc9709/01/2021zDENTAL DQ [employer]-termed 10/01/22[address] [place] [phone] [id number], JAMIESelf - patient is the qghawgg0909/01/2021 zDental MEDICAID CFC after [employer]-termed 10/01/22[address] [place] [id number], JAMIESelf - patient is the pdfffmy87/01/2022Dental [employer] DQ Terminated 08/31/24[address] [place] [id number], JAMIESelf - patient is the agshvvl78/01/2023Dental Wrap [facility] [employer] BCBS Termed [address] [place] [id number], JAMIESelf - patient is the xhxrnkk7810/02/2022
[2025-06-21 08:06] VITALS: BP 116/71; PULSE 64; TEMP 37.1; O2SAT 100; BMI 40.7
--- NOTE | 2025-06-21 08:14 | CT_ITS ---
The [address] [address] Patient Name: MARILIA OSBORNE MRN: [id number] date: 1990 Sex: F Assigned Patient Location: ER Current Patient Location: ER Accession/Order Number: [id number] Exam Date: 06/21/2025 08:26 Report Date: 06/21/2025 09:24 At the request of: TREVIN GARDNER MD Procedure: CT abdomen pelvis wo con CT abdomen pelvis wo con 06/21/2025 8:30 AM SIGNS AND SYMPTOMS: periumblical pain sbo. Umbilical pain, nausea, right lower quadrant pain TECHNIQUE: Multidetector ct axial images of the abdomen and pelvis were obtained without IV contrast. Multiplanar reformats were performed and reviewed to further define anatomy and possible pathology. CT was performed with one or more of the following dose reduction techniques: Automated exposure control, adjustment of the mA and/or kV according to patient size, or use of iterative reconstruction technique. COMPARISON: 01/17/2024 FINDINGS: Lower Chest: Within normal limits. ABDOMEN: Liver: Within normal limits. Bile Ducts: Normal caliber. Gallbladder: No calcified gallstones. Normal caliber wall. Pancreas: Within normal limits. Spleen: Within normal limits. Adrenals: Within normal limits. Kidneys: There is increased attenuation at the medullary pyramids at the inferior pole of the kidneys left greater than right suggesting medullary nephrocalcinosis. Pelvis: Reproductive Organs: No pelvic masses. Ureters: Within normal limits. Bladder: Within normal limits. Bowel: Normal caliber. No evidence of acute appendicitis. There is a small bowel loop contained within a periumbilical hernia. There is a small amount of free fluid in the hernia sac. No evidence of bowel obstruction. Mesenteric Lymph Nodes: No enlarged mesenteric lymph nodes. Peritoneum: No ascites or free air, no fluid collection. Vessels: within normal limits Retroperitoneum: Within normal limits. Abdominal Wall: There is a periumbilical hernia. The ostium measures 1.6 cm in greatest dimension. The hernia sac measures 4.1 x 4.4 x 4.2 cm in greatest dimension. Bones: Mild degenerative changes are noted thoracic spine. CT/CT abdomen pelvis wo con IMPRESSION: There is a periumbilical hernia. The ostium measures 1.6 cm in greatest dimension. The hernia sac measures 4.1 x 4.4 x 4.2 cm in greatest dimension. There is a small bowel loop with a small amount of free fluid within the hernia sac. There is no evidence of bowel obstruction. No evidence of acute appendicitis. No renal, ureteral, or bladder stones. No hydronephrosis. Impression dictated by: Meir Mao M.D. 06/21/2025 9:24 AM Dictation [facility] Electronically authenticated by: [id number] Y Date: 06/21/2025 09:24
--- NOTE | 2025-06-21 08:20 | ED.ABDPAIN1 ---
HPI - Abdominal Pain General Chief Complaint: Abdominal Pain Stated Complaint: abdominal pain Time Seen by Provider: 06/21/25 08:04 Source: patient Mode of arrival: walk-in Limitations: no limitations History of Present Illness HPI narrative: 35-year-old female presenting to the ER with abdominal pain mostly periumbilical associate with nausea vomiting and she has been having diarrhea for the last 3 weeks since she was started on Mounjaro. The patient also was complaining of right sided flank pain with the pain from her periumbilical area radiating to the back. No burning with urination. Last menstruation with June 01, The patient's last meal was yesterday at 7 PM and she did had few sips of water at 8 AM before arrival Patient denies any other complaints Pain is severe 10 out of 10 Related Data Home Medications ?Medication ?Instructions ?Recorded ?Confirmed aripiprazole 10 mg tablet 10 mg PO QDAY 02/04/23 04/13/25 Held on 04/13/25. Instructions: no insurance buspirone 10 mg tablet 10 mg PO BID 02/04/23 04/13/25 Held on 04/13/25. Instructions: no insurance calcium carbonate (Calcium 600) 600 mg PO DAILY 02/04/23 04/13/25 Held on 04/13/25. Instructions: no insurance fluoxetine 40 mg capsule 40 mg PO QDAY 02/04/23 04/13/25 Held on 04/13/25. Instructions: no insurance insulin regular hum U-500 conc 500 60 unit subcut TID 02/04/23 04/13/25 unit/mL(3 mL) subcut pen (Humulin R U-500 (Conc) Insulin Kwikpen) Held on 04/13/25. Instructions: no insurance magnesium 250 mg tablet 250 mg PO DAILY 02/04/23 04/13/25 Held on 04/13/25. Instructions: no insurance pantoprazole 40 mg tablet,delayed 40 mg PO Q12H PRN indigestion 02/04/23 04/13/25 release Held on 04/13/25. Instructions: no insurance spironolactone 50 mg tablet 50 mg PO QDAY 02/04/23 04/13/25 Held on 04/13/25. Instructions: no insurance trazodone 50 mg tablet 50 mg PO DAILY 02/04/23 04/13/25 Held on 04/13/25. Instructions: no insurance cholecalciferol (vitamin D3) 50 2,000 unit PO DAILY 02/02/24 04/13/25 mcg (2,000 unit) tablet (Vitamin D3) Held on 04/13/25. Instructions: no insurance empagliflozin 25 mg tablet 25 mg PO DAILY 02/02/24 04/13/25 (Jardiance) Held on 04/13/25. Instructions: no insurance gabapentin 100 mg capsule 100 mg PO TID 02/02/24 04/13/25 Held on 04/13/25. Instructions: no insurance metformin 500 mg tablet 500 mg PO BID 02/02/24 04/13/25 Held on 04/13/25. Instructions: no insurance Previous Rx's ?Medication ?Instructions ?Recorded jgezkfzonuokcdp-jpjnzbqispdjpty-PC 10 ml PO Q6H PRN cold symptoms 06/03/24 2 mg-30 mg-10 mg/5 mL oral syrup #200 mL (Bromfed DM) Held on 04/13/25. Instructions: no insurance famotidine 20 mg tablet (Pepcid) 20 mg PO BID 4 weeks #56 tabs 11/06/24 Held on 04/13/25. Instructions: no insurance ifmufevpun-bvjaxgsztefrj-hcvghbky 1 cap PO Q6H PRN pain 5 days #20 04/13/25 50 mg-300 mg-40 mg capsule caps (Fioricet) Allergies Allergy/AdvReac Type Severity Reaction Status Date / Time prednisone AdvReac Severe hyperglycem Verified 06/21/25 08:06 ia Review of Systems ROS Status of ROS 10 or more systems reviewed and unremarkable except as noted in history and below [facility] Social History Smoking status: Current every day smoker Little interest or pleasure in doing things: not at all Feeling down, depressed, or hopeless: not at all Exam Narrative Exam Narrative: Nurses notes and vital signs reviewed and patient is not hypoxic. General: Well-appearing with distress due to pain Skin: Warm, dry, no pallor noted. No rash. Head: Normocephalic, atraumatic. Neck: Supple, non-tender. Cardiovascular: Regular Rate and Rhythm without murmur, gallop or rub. Respiratory: No accessory muscle use or respiratory distress. GI: Abdomen is soft there is no guarding but there is periumbilical severe tenderness on palpation mostly deep palpation, there is no obvious swelling or hernia but the patient have obese abdomen BMI is 40.7 Neurological: A&O x4. No cranial nerve dysfunction observed. No truncal ataxia. Moves all extremities. Sensation intact. Psychiatric: Cooperative and interactive. Normal mood and affect. Constitutional Vital Signs, click to edit/add: Last Vital Signs Temp 98.7 F 06/21/25 08:06 Pulse 73 06/21/25 09:56 Resp 18 06/21/25 09:56 BP 146/86 H 06/21/25 09:56 Pulse Ox 100 06/21/25 09:56 O2 Del Method Room Air 06/21/25 09:56 Course Vital Signs Vital signs: Vital Signs Temperature 98.7 F 06/21/25 08:06 Pulse Rate 64 06/21/25 08:06 Respiratory Rate 20 06/21/25 08:06 Blood Pressure 116/71 06/21/25 08:06 Pulse Oximetry 100 06/21/25 08:06 Oxygen Delivery Method Room Air 06/21/25 08:06 Temperature 98.7 F 06/21/25 08:06 Pulse Rate 73 06/21/25 09:56 Respiratory Rate 18 06/21/25 09:56 Blood Pressure 146/86 H 06/21/25 09:56 Pulse Oximetry 100 06/21/25 09:56 Oxygen Delivery Method Room Air 06/21/25 09:56 MDM - Abdominal Pain MDM Narrative Medical decision making narrative: The patient CBC and chemistry showed no acute pathology with a negative lactic acid and negative Her presentation is mostly secondary to umbilical hernia possible incarceration although there is no obvious hernia on exam for reduction but the patient was in a lot of pain it was initially 10 out of 10 and reduced to 7 out of 10 with pain medication including morphine and Toradol The patient CAT scan confirmed that the result of periumbilical hernia with ostium 1.6 cm in greatest diameter mention as well as hernia sac of 4.1x 4.4 x 4.2 centimeter in greatest dimension with a small bowel loop and small amount of fluid within the hernia sac The patient case discussed with from general surgery and he recommended the patient to be transferred there to [facility] for surgery in the same day, he recommended initially to call the ER for transfer when I did speak with Dr.George Hernandes accepted the patient but the patient then was to be admitted again under Dr. Dominique The patient is n.p.o. right now awiating transfer Morphine of 4 IV ordered ad 1L of NS bolus Lab Data Labs: Lab Results 06/21/25 06/21/25 Range/Units 08:15 09:00 WBC 9.8 (4.0-11.0) 10^3/uL RBC 4.99 (4.20-5.40) 10^6/uL Hgb 13.7 (12.0-16.0) g/dL Hct 40.3 (36.0-48.0) % MCV 80.8 L (81.0-99.0) fL MCH 27.5 (26.7-34.0) pg MCHC 34.0 (29.9-35.2) g/dL RDW 13.0 (11.0-15.0) % Plt Count 257 (150-450) 10^3/uL MPV 11.1 (9.5-13.5) fL Neut % (Auto) 61.3 (43.0-75.0) % Lymph % (Auto) 30.3 (20.5-60.0) % [place] % (Auto) 6.5 (1.7-12.0) % Eos % (Auto) 1.3 (0.9-7.0) % Baso % (Auto) 0.4 (0.2-2.0) % Neut # (Auto) 6.0 (1.4-6.5) 10^3/uL Lymph # (Auto) 3.0 (1.2-3.8) 10^3/uL [place] # (Auto) 0.6 (0.3-0.8) 10^3/uL Eos # (Auto) 0.1 (0.0-0.7) 10^3/uL Baso # (Auto) 0.0 (0.0-0.1) 10^3/uL Abs Immat Gran (auto) 0.02 (0.00-0.03) 10^3/uL Imm/Tot Granulo (auto) 0.2 (0.0-0.5) % Sodium 138 (136-145) mmol/L Potassium 4.2 (3.5-5.1) mmol/L Chloride 103 (98-107) mmol/L Carbon Dioxide 26.0 (21.0-32.0) mmol/L Anion Gap 13.2 BUN 17.0 (7.0-18.0) mg/dL Creatinine 0.62 (0.55-1.02) mg/dL Est GFR ( Amer) >60 (>=60 mL/min/1.73m^2) Est GFR (Non-Af Amer) >60 (>=60 mL/min/1.73m^2) BUN/Creatinine Ratio 27.4 Glucose 198 H (74-106) mg/dL Lactate 0.6 (0.4-2.0) mmol/L Calcium 9.1 (8.5-10.1) mg/dL Total Bilirubin 0.4 (0.2-1.0) mg/dL AST 13 L (15-37) U/L ALT 22 (14-59) U/L Alkaline Phosphatase 72 (46-116) U/L Total Protein 7.7 (6.4-8.2) g/dL Albumin 3.7 (3.4-5.0) g/dL Globulin 4.0 g/dL Albumin/Globulin Ratio 0.9 Serum HCG, Qual Negative (NEGATIVE) Urine Color Yellow (YELLOW) Urine Clarity Clear (CLEAR) Urine pH 5.5 (5.0-9.0) Ur Specific [place] >=1.030 A (1.005-1.025) Urine Protein Negative (NEG/TRACE) mg/dL Urine Glucose (UA) 100 A (NEGATIVE) mg/dL Urine Ketones Trace A (NEGATIVE) mg/dL Urine Occult Blood Negative (NEGATIVE) Urine Nitrite Negative (NEGATIVE) Urine Bilirubin Negative (NEGATIVE) Urine Urobilinogen 0.2 (0.2-1.0) EU/dL Ur Leukocyte Esterase Negative (NEGATIVE) Discharge Plan Discharge Chief Complaint: Abdominal Pain Clinical Impression: Incarcerated umbilical hernia Patient Disposition: [facility] Time of Disposition Decision: 10:04 Discharge Location: [facility]
[2025-06-21] MEDS: KETOROLAC TROMETHAMINE 30 MG/ML VIAL IVP (08:23)
[2025-06-21 08:25] LABS: Hematocrit 40.3 % (36.0-48.0); Hemoglobin 13.7 g/dL (12.0-16.0); Immature Granulocytes Abs Auto 0.02 10^3/uL (0.00-0.03); Immature Granulocytes Pct Auto 0.2 % (0.0-0.5); Lymphocytes Absolute Auto 3.0 10^3/uL (1.2-3.8); Mean Corpuscular HGB Conc 34.0 g/dL (29.9-35.2); Mean Corpuscular Hemoglobin 27.5 pg (26.7-34.0); Mean Corpuscular Volume 80.8 fL (81.0-99.0); Platelet Count 257 10^3/uL (150-450); Red Blood Count 4.99 10^6/uL (4.20-5.40); White Blood Count 9.8 10^3/uL (4.0-11.0)
[2025-06-21] MEDS: 0.9 % SODIUM CHLORIDE 1,000 ML 1000 ML IV (08:25)
[2025-06-21 08:42] LABS: Alanine Aminotransferase 22 U/L (14-59); Albumin Globulin Ratio 0.9; Albumin Level 3.7 g/dL (3.4-5.0); Alkaline Phosphatase 72 U/L (46-116); Anion Gap 13.2; Aspartate Amino Transferase 13 U/L (15-37); Blood Urea Nitrogen 17.0 mg/dL (7.0-18.0); Calcium 9.1 mg/dL (8.5-10.1); Carbon Dioxide 26.0 mmol/L (21.0-32.0); Chloride 103 mmol/L (98-107); Estimated GFR (African America >60 (>=60 mL/min/1.73m^2); Estimated GFR (Non-African Ame >60 (>=60 mL/min/1.73m^2); Globulin 4.0 g/dL; Glucose 198 mg/dL (74-106); Potassium 4.2 mmol/L (3.5-5.1); Sodium 138 mmol/L (136-145); Total Protein 7.7 g/dL (6.4-8.2)
[2025-06-21 08:45] LABS: Lactate/Lactic Acid 0.6 mmol/L (0.4-2.0)
[2025-06-21] MEDS: MORPHINE SULFATE 2 MG/ML SYRINGE IV (08:58)
[2025-06-21 09:07] LABS: Glucose Urine UA 100 mg/dL (NEGATIVE)
[2025-06-21] MEDS: MORPHINE SULFATE 4 MG/ML VIAL IV (09:52)
[2025-06-21 09:56] VITALS: BP 146/86; PULSE 73; O2SAT 100
[2025-06-21 10:36] VITALS: BP 129/66; PULSE 52; TEMP 37.1; O2SAT 100
== END 2025-06-21 10:46 | disposition short-term general hospital (02) ==
PROVIDERS: Emergency Provider Emergency Medicine; PCP Nurse Practitioner
DX: K42.0 Umbilical hernia with obstruction, without gangrene (principal); F17.200 Nicotine dependence, unspecified, uncomplicated; E66.9 Obesity, unspecified; Z68.41 Body mass index [BMI] 40.0-44.9, adult
CPT/HCPCS: 36415; 74176; 80053; 81003; 83605; 84703; 85025; 96361; 96374; 96375; 96376; 99285; J1885; J2270; J2405

== ENCOUNTER 2025-07-01 13:47 | Emergency (ER) | payer MEDICAID, SELFPAY ==
--- OUTSIDE RECORDS SUMMARY | 2025-06-21 12:53 | XMS_ITS | Continuity of Care Document ---
Author Organization [facility] Address [address] [place] [address] Phone Care Team Providers Care Knowledge Management Consultant Name Role Phone Ariane Wells SOLVENT STATION ATTENDANT-C Primary Care Provider [phone] Ariane Wells SOLVENT STATION ATTENDANT-C Attending Provider Abdulkadir Dominique DO Admit Provider Abdulkadir Dominique DO Attending Provider Care Teams Patient Care Team Team Status: Active Member Role/Relationship Status Dates Ariane Wells NP-C Primary Care Provider Active Visit Care Team Team Status: Inactive Member Role/Relationship Status Dates Ariane Wells NP-C Primary Care Provider Active Start: June 08, 2025 End: June 08, 2025DARSHANA AponteCAttenbrandi ProviderActiveStart: June 08, 2025 End: June 08, 2025 Patient Care Team Team Status: Active Member Role/Relationship Status Dates Ariane Wells SOLVENT STATION ATTENDANT-C Primary Care Provider Active Start: June 21, 2025 DARSHANA AponteCAtgeovanny ProviderActiveStart: June 21, 2025 Patient Care Team Team Status: Inactive Member Role/Relationship Status Dates Ariane Wells SOLVENT STATION ATTENDANT-C Primary Care Provider Active Start: June 21, 2025 End: June 21, 2025Fredric DO TripAdmit ProviderActiveStart: June 21, 2025 End: June 21, 2025FredEleno Schwartz ProviderActiveStart: June 21, 2025 End: June 21, 2025 Chief Complaint and Reason for Visit Chief Complaint Admit Date follow up from cancelled appointment Oct benoit 2024 1:15pm Umbilical Hernia June 21, 2025 1 1:29am Reason for Visit Admit Date ASHA (generalized anxiety disorder) Octob er 2024 1:15pm Nicotine dependence June 08, 2025 1: 15pm Uncontrolled type 2 diabetes mellitus, without long-term current use of insulin June 08, 2025 1:15pm Vitamin D deficiency June 08, 2025 1 :15pm Incarcerated umbilical hernia June 212024 11:29am Reason for Referral Type Reason(s) Provider Provider Contact Information P elias Address Start Date You may use alternating doses of ibuprofen (Motrin) 600 mg followed 3 hours later by 2 extra strength Tylenol's, followed 3 hours later by ibuprofen 600 mg. You may continue this repeating schedule for pain management.Chelsi Roche Phone: [phone] [facility] [address] [place] [address] Allergies, Adverse Reactions, Alerts Allergen Type Severity Reaction Last Updated Verified Status prednisone Allergy Unknown Shakiness, shaking Octobe r 2024 12:33pm Yes Active Social History Smoking Status Status Start Date End Date Date of Observa tion Smokes tobacco daily (finding) June 21, 2025 2:01pm Observation Status Observation Response Date of Response Legal Sex Female (finding) [facility] Family History Relationship Condition Age at Onset Recorded Date/T kim Not Specified No pertinent family history Unknown brotherHypertensionUnknownfatherDeceasedUnknownHypertensionUnknownHeart disease UnknownDiabetes mellitusUnknown Problems Active Problems Problem Diagnosis/Recorded Date Onset Date Stat us Granuloma annulare May 20, 2025 5:57pm Unknown Active Nicotine dependence May 20, 2025 5:55pm Unknow n Active Insomnia May 20, 2025 5:56pm Unknown Active BRENT (obstructive sleep apnea) May 20, 2025 5:5 6pm Unknown Active ASHA (generalized anxiety disorder) May 20 5:57pm Unknown Active Dysfunction of both eustachian tubes Katharine 19th, 2 025 5:56pm Unknown Active Type 2 diabetes mellitus wit h insulin therapy May 20, 2025 5:57pm Unknown Active Bipolar disorder May 20, 2025 5:55pm Unknown Active Acquired deformity of right ankle May 20, 2025 5:54pm Unknown Active Umbilical hernia May 20, 2025 5:56pm Unknown Active DDD (degenerative disc disease), lumbar May 5:55pm Unknown Active Morbid obesity due to excess calories May 20, 2025 5:55pm Unknown Active Uncontrolled type 2 diabetes mellitus, without long-term current use of insulin June 08, 2025 2:13pm Unknown Active Major depressive disorder, r ecurrent, mild May 20, 2025 5:55pm Unknown Active Hx of adenoidectomy May 20, 2025 5:54pm Unknow n Active Hx of tonsillectomy May 20, 2025 5:54pm Unknow n Active ADHD (attention deficit hype ractivity disorder) May 20, 2025 5:54pm Unknown Active Conductive hearing loss May 20, 2025 5:55pm Un known Active Vitamin D deficiency May 20, 2025 5:56pm Unkno wn Active Incarcerated umbilical hernia June 21, 2025 1:58p m Unknown Active Medications Medication Status Dose Units Route Directions Qty Days Refills S tart Date Stop Date End Date Reason(s) Instructions Adherence Cephalexin 500 mg capsule Active 500 MG PO Every 8 hours 9 3 0 June 21, 2025 12:00am UnknownOxycodone-Acetaminophen (Percocet) 5-325 mg ytykygXzfbcp9CHRQMR6B as needed for xmub3441Duiwcja 21st, 2025Irreducible umbilical hernia Umbilical hernia with obstruction, without gangreneUnknownTrazodone 50 mg tablet Fsnkduzjxvhp40RUWAIkhenAdw 2019 12:00amSeptember 2024 6:02pm Ondansetron Hcl 4 mg vdbncjPphybawlurst3DVQHGk Directed as needed for NauseaMay 2019 12:00amOctober 2024 2:11pmPantoprazole 40 mg tablet,delayed release (DR/EC)Tswgipykygjl90XAVSKhcibVgs 2019 12:00amOctober 2024 2:11pmFluoxetine 10 mg iarxzjhKfbuxcisxohc84CRAYThkmuEnt 2019 12:00am May 20, 2025 6:00pmFluoxetine 20 mg sushsisSwhlctwdwvgs33KWESDmqsyEei 2019 12:00amOctober 2024 2:11pmMetformin 500 mg tablet extended release 24 teHbgakrncdscu1QDGRPQiorn dailyMa2019 12:00amOctober 2024 2:12pmCalcium Carbonate (Calcium 600) 600 mg calcium (1,500 mg) Tablet Xovwvikmzwbf239JWVVTnintPdp 7th, 2020 12:00amSeptember 2024 5:58pmBaclofen 10 mg HgcuiyNphmkezgiwej57OBQWMm DirectedMa2019 12:00amSept2024 5:58pmMagnesium 250 mg VfuhcgNxoktizzhxrg711HBQOSmfnxNug 7th, 2020 12:00am June 08, 2025 2:11pmCholecalciferol (Vitamin D3) (Vitamin D3) 50 mcg (2,000 unit) NaatfzRiilcyisxdio6326SQKGMZBeicyDdd 7th, 2020 12:00amSeptember 2024 5:58pmFluoxetine 40 mg rbnalgtBvehvfyuivat68HIPCWkfsnLjwbradje 2024 12:00amOctober 2024 2:11pmCyclobenzaprine 10 mg rninaeLwfjhwjeuqbm69YWMM Twice daily as neededSeptember 2024 12:00amOctober 2024 2:10pm Trazodone 50 mg njpavaAjuoodjzshvw804FTKXCfidt at bedtime as neededSeptember 2024 12:00amOctober 2024 2:11pmTizanidine 4 mg hxoyurCkzrffkyqahx8TL POTwice daily as neededSeptember 2024 12:00amOctober 2024 2:11pm Buspirone 10 mg xaondoLgrfvwylotiz37EVRKTqafq times dailySeptember 2024 12:00amOctober 2024 2:12pmPravastatin 20 mg vamsejXmpcekxxggzk42JMPMDmqua at bedtimeSeptember 2024 12:00amOctober 2024 2:11pmGabapentin 100 mg axfznlsWpfscgmolyss066OAFLUmcjv times dailySeptsoutheastern [facility] 2024 12:00amOctl[facility] 2024 2:11pmAlbuterol Sulfate 90 mcg/actuation HFA aerosol inhaler Mrhpucwsppal0BMMEDHNZLHSCARKZGHG 4-6 HOURS as neededSeptsoutheastern a[facility] health services 2024 12:00am June 08, 2025 2:10pmSpironolactone (Aldactone) 50 mg xhswqoJbmsjlmhejvz69XI PODailySeptember 2024 12:00amOctober 2024 2:11pmAripiprazole 15 mg noqaxxNmcnakkutzqv03ICTRBsktfRsrskbhnf 2024 12:00amOctober 2024 2:10pmCholecalciferol (Vitamin D3) 125 mcg (5,000 unit) gvpmlnHlimmwmlrved656KEE PODailySeptember 2024 12:00amOctober 2024 2:10pmEmpagliflozin (Jardiance) 25 mg abwuetDxmuhkjgocjn23QBUHFyjotIfhjuofkj 2024 12:00am June 08, 2025 2:10pmBuspirone 10 mg kvieskWmelwfvgjroa28JWZHSykqw daily as needed for anxietyJune 08, 2025 2:12pmOctober 2024 11:38amGeneralized anxiety disorder Generalized anxiety disorderMetformin 500 mg tablet extended release 24 hrActive 500MGPOTwice rynyt010Fsgcwlv 8th, 2025 12:00amUncontrolled type 2 diabetes mellitus, without long-term current use of insulinstart with 1 pill daily for 2 weeks, then increase to 1 pill twice a dayNon-compliance of drug therapy Tirzepatide (Mounjaro) 5 mg/0.5 mL pen cwqvzruyAhnvok8JURCOQVChkcxe week21 June 08, 2025 12:00amUncontrolled type 2 diabetes mellitus, without long- term current use of insulinComplies with drug therapy Procedures Procedure Date Performed Status OR Umbilical Hernia Repair (Not Applicable) 2024 2:00pm completed Relevant Diagnostic Tests and/or Laboratory Data Laboratory Results Test Collection Date/Time Result Date/Time Result Interpretation Reference Range Result Comment Performing Site Bedside Hemoglobin A1c June 08, 2025 2:33pm June 2:34pm 11.6 % Human Chorionic Gonadotropin, QualOct2024 8:15amOct2024 8:15amNEGATIVENEGATIVELactic Acid LevelJune 21, 2025 8:15amOctober 2024 8:15am0.6 mmol/L0.4-2.0Anion GapJune 21, 2025 8:15amOct2024 8:15am13.2Basophils # (Auto)June 21, 2025 8:15amOctober 2024 8:15am 0.0 10 3/uL0.0-0.1Urine Microscopic ReviewJune 21, 2025 9:00amOctober 2024 9:00amNOAlbumin/Globulin RatioJune 21, 2025 8:15amOctober 2024 8:15am0.9Basophils (%) (Auto)June 21, 2025 8:15amOct2024 8:15am 0.4 %0.2-2.0Urine BilirubinJune 21, 2025 9:00amOct2024 9:00am NEGATIVENEGATIVEAlbuminJune 21, 2025 8:15amOct2024 8:15am3.7 g/dL3.4-5.0Eosinophils # (Auto)June 21, 2025 8:15amOct2024 8:15am0.1 10 3/uL0.0-0.7Urine Occult BloodJune 21, 2025 9:00amOct2024 9:00amNEGATIVENEGATIVEAlkaline PhosphataseJune 21, 2025 8:15amOct2024 8:15am72 U/W88-169Aoqstqimftr (%) (Auto)June 21, 2025 8:15am June 21, 2025 8:15am1.3 %0.9-7.0Urine AppearanceJune 21, 2025 9:00am June 21, 2025 9:00amCLEARCLEARAlanine Aminotransferase (ALT/SGPT)June 21, 2025 8:15amOct2024 8:15am22 U/S06-46YxjwqzyjrjKcqmrwu 21st, 2025 8:15amOct2024 8:15am40.3 %36.0-48.0Urine ColorOct2024 9:00amOct2024 9:00amYELLOWYELLOWAspartate Amino Transf (AST/SGOT) June 21, 2025 8:15amOct2024 8:15am13 U/LBelow low -97 HemoglobinJune 21, 2025 8:15amJune 21, 2025 8:15am13.7 g/dL12.0-16.0 Urine Glucose (UA)June 21, 2025 9:00amOct2024 9:70rh082 mg/dL Abnormal (applies to non-numeric results)NEGATIVEBUN/Creatinine RatioJune 21, 2025 8:15amJune 21, 2025 8:15am27.4Immature Granulocyte # (Auto) June 21, 2025 8:15amOct2024 8:15am0.02 10 3/uL0.00-0.03Urine KetonesOct2024 9:00amOct2024 9:00amTRACE mg/dLAbnormal (applies to non-numeric results)NEGATIVEBlood Urea NitrogenJune 21, 2025 8:15amJune 21, 2025 8:15am17.0 mg/dL7.0-18.0Immature Granulocyte % (Auto) June 21, 2025 8:15amOct2024 8:15am0.2 %0.0-0.5Urine Leukocyte EsteraseJune 21, 2025 9:00amOct2024 9:00amNEGATIVENEGATIVE Calcium LevelJune 21, 2025 8:15amOct2024 8:15am9.1 mg/dL8.5-10.1 Lymphocytes # (Auto)June 21, 2025 8:15amOct2024 8:15am3.0 10 3/uL1.2-3.8Urine NitriteOct2024 9:00amOct2024 9:00am NEGATIVENEGATIVEChloride LevelJune 21, 2025 8:15amOct2024 8:15am 103 mmol/F10-263Ypprcdmtzdo (%) (Auto)June 21, 2025 8:15amOct2024 8:15am30.3 %20.5-60.0Urine pHOct2024 9:00amJune 21, 2025 9:00am5.55.0-9.0Carbon Dioxide LevelJune 21, 2025 8:15amOct2024 8:15am26.0 mmol/L21.0-32.0Mean Corpuscular HemoglobinJune 21, 2025 8:15am June 21, 2025 8:15am27.5 pg26.7-34.0Urine ProteinJune 21, 2025 9:00am June 21, 2025 9:00amNEGATIVE mg/dLNEG/TRACECreatinineOct2024 8:15amOct2024 8:15am0.62 mg/dL0.55-1.02Mean Corpuscular Hemoglobin ConcentJune 21, 2025 8:15amOct2024 8:15am34.0 g/dL29.9-35.2Urine Specific GravityJune 21, 2025 9:00amJune 21, 2025 9:00am>=1.030 Abnormal (applies to non-numeric results)1.005-1.025Estimated GFR ()June 21, 2025 8:15amOct2024 8:15am>60>=60 mL/min/1.73m 2Mean Corpuscular VolumeJune 21, 2025 8:15amOct2024 8:15am80.8 fLBelow low .0-99.0Urine UrobilinogenOct2024 9:00amOct2024 9:00am0.2 EU/dL0.2-1.0Estimated GFR (Non- AmericanJune 21, 2025 8:15amOct2024 8:15am>60>=60 mL/min/1.73m 2Monocytes # (Auto)June 21, 2025 8:15amOct2024 8:15am0.6 10 3/uL0.3-0.8 GlobulinJune 21, 2025 8:15amOctober 2024 8:15am4.0 g/dLMonocytes (%) (Auto)June 21, 2025 8:15amOctober 2024 8:15am6.5 %1.7-12.0Glucose LevelOctober 2024 8:15amOctober 2024 8:51gd378 mg/dLAbove high peflmb95-729Btyu Platelet VolumeOct2024 8:15amOctober 2024 8:15am11.1 fL9.5-13.5Potassium LevelOctober 2024 8:15amOctober 2024 8:15am4.2 mmol/L3.5-5.1Neutrophils # (Auto)June 21, 2025 8:15amOctober 2024 8:15am6.0 10 3/uL1.4-6.5Sodium LevelOctober 2024 8:15amOctober 2024 8:10pq640 mmol/V968-410Fqwhsbixvhc (%) (Auto)June 21, 2025 8:15amOctober 2024 8:15am61.3 %43.0-75.0Total BilirubinOct2024 8:15amOctober 2024 8:15am0.4 mg/dL0.2-1.0Platelet CountOct2024 8:15amOctober 2024 8:84az135 10 3/eG272-711Xahbe ProteinOctober 2024 8:15amOctober 2024 8:15am7.7 g/dL6.4-8.2Red Blood CountOctober 2024 8:15amOctober 2024 8:15am4.99 10 6/uL4.20-5.40Red Cell Distribution Width June 21, 2025 8:15amOctober 2024 8:15am13.0 %11.0-15.0Corrected White Blood CountOctober 2024 8:15amOctober 2024 8:15am9.8 10 3/uL4.0-11.0 Bedside GlucoseOct2024 12:59pmJune 21, 2025 1:04ud639 mg/dL Random Glucose Reference Range is dependent on time and content of last meal. Glucose of more than 200 mg/dL in a nonstressed, ambulatory subject supports the diagnosis of Diabetes Mellitus.Point of Care testing Vital Signs Vital Reading Result Reference Range Collection Date/Time Height 63 [in_i] June 08, 2025 1:80nmEvvsmc358.98 kgJune 08, 2025 1:22pmBody Temperature 98.5 [degF]97.6-99.0Oct2024 1:22pmHeart Rate66 /slz82-471EhbvffvJune 08, 2025 1:22pmRespiratory rate18 /yky08-56AofhcxnJune 08, 2025 1:22pmOxygen saturation by Pulse tcxciqgh32 %95-100June 08, 2025 1:22pmBP Marxjljj996 mm[Hg]100-140 June 08, 2025 1:22pmBP Yefxztdhs46 mm[Hg]60-100June 08, 2025 1:22pmBMI (Body Mass Index)40.6 kg/q0ZcadlmsJune 08, 2025 1:05kpDedmla05 [in_i]June 21, 2025 11:51gqLuyyhp210.60 kgJune 21, 2025 11:33amBody Ztqomwqmuyq42.4 [degF] 97.6-99.0June 21, 2025 3:26pmHeart Rate64 /oii27-094HapfhwkJune 21, 2025 4:15pmRespiratory rate16 /rdu86-59Jsvmbje 2024 4:15pmOxygen saturation by Pulse hraoenfg41 %95-100June 21, 2025 4:15pmBP Isevskoa203 mm[Hg]100-140 June 21, 2025 4:15pmBP Pqaygufic34 mm[Hg]60-100June 21, 2025 4:15pm Inhaled oxygen flow [facility]8 [facility] Advance Directives Advance Directive Response Recorded Date/ Time Advance Directives No May 5:12pm Insurance Providers Guarantor Johnson Vera Address [address] [id number] Info.Home Phone: Coverage Status Update:2025 Payer Group Member ID Coverage Type Subscriber Relationship to Subscriber Effective Date Expiration Date [employer] Id: [id number] L Mullins Id: [id number] [address] [place] [id number] Home Phone: Email: declined 20elf Encounters Encounter Location(s) Arrival/Admit Date Discharge/Departure Date Discharge/Departure Disposition Provider(s) Departed Physician/ Provider Office Visit -[facility] [place] June 08, 2025 1:15pm June 08, 2025 2:05pm Discharged to home care or self care (routine discharge) DARSHANA AponteC Non-patient / Non-visit -[facility] Professional [facility] O ctober 2024 8:15am Ariane Wells NP-CDischarged Inpatient-4 [facility] ProgressiveOctober 2024 11:29amOctober 2024 4:30pmDischarged to home care or self care (routine discharge)Abdulkadir Dominique , Recent Diagnosis Onset Date Admit Date ASHA (generalized anxiety disorder) Unknown June 08, 2025 1:15pm Nicotine dependence Unknown June 08, 2025 1:15pm Uncontrolled type 2 diabetes mellitus, without long-term current use of insulin Unknown June 08, 2025 1:1 5pm Vitamin D deficiency Unknown June 1:15pm Incarcerated umbilical hernia Unknown Oc 2024 11:29am Functional Status Observation Response Date Recorded Dressing Patient at Baseline June 11:33am Eating Patient at Baseline June 11:33am Bathing Patient at Baseline June 11:33am Disability Status Patient at Baseline June 212024 11:33am Mental Status Observation Response Date Recorded Cognitive Status Patient at Baseline June 11:33am Cognitive/Mental Status Assessments Assessments Diagnosis Onset Date Resolution Status Admit Date ASHA (generalized anxiety disorder) acuteOctober 2024 1:15pmNicotine dependenceacuteOctober 2024 1:15pm Uncontrolled type 2 diabetes mellitus, without long-term current use of insulin acuteOctober 2024 1:15pmVitamin D deficiencyacuteOctober 2024 1:15pm Incarcerated umbilical herniaacuteOctober 2024 11:29am Plan of Treatment Author Ariane Wells [facility] HospitalAuthoredOctober 2024 2:16pmhaving some panic attacks, will restart buspar at this time The patient has been advised of the risks of continued smoking: stroke, [place], all forms of cancer, lung disease, and . Options for quitting: cold turkey, hypnosis, acupuncture, nicotine replacement meds (gum, lozenges, and patches), as well as oral meds: buproprion or varenicline . At this time pt is encouraged to evaluate their goals for wanting to quit smoking, and reach out to provider when ready to start this process check labs Check blood sugars daily, notify the office if [...] diet lower in carbohydrates, and simple sugars. current meds: none restart metformin XR 500mg daily for 2 weeks then increase to BID add moi, sample 2.5mg given, lot [id number] exp 04/26/26 then send in rx for 5mg fu in 4 weeks does not want insulin Future Tests Future scheduled test information is unavailable Pending Tests Pending diagnostic test information is unavailable Future Visits Future appointment information is unavailable Future Procedures Procedure Name Ordered Date Scheduled Date Discharge Order June 21, 2025 3:03pm Octobe r 2024 3:03pm Dipstick and Microscopic June 08, 2025 6:28a m Lipid PanelOctober 2024 6:28amMagnesiumOctober 2024 6:28amThyroid Stimulating HormoneOctober 2024 6:28amVitamin D 25 Hydroxy TotalOctober 2024 6:28amAMB POC Ur Microalb/Creat RatOctober 2024 6:28am Future Medications Future medication information is unavailable Patient Instructions Instruction Admit Date Know your Meds June 21, 2025 1 1:29am Goals Acute Goals Author Authored Date Exhibit optimal tissue perfu eric * Exhibits adequate oxygenation and ventilation * Exhibits adequate cardiac output * Regains stable cardiac rhythm * Maintains optimal activity level * Maintains balanced intake and outputTri[facility] 2024 4:52pmExperience reduced anxiety * Identifies current stressors * Develops effective coping behaviors * Uses support services as appropriateTri[facility] 2024 4:52pmRemain free of complications [facility] 2024 4:52pmUnderstand preop/postop care/sensations * Verbalizes understanding of surgical procedure * Verbalizes understanding of sensations following surgery * Verbalizes understanding of post-op treatment planTri[facility] 2024 3:56pmReport pain at tolerable level * Uses pain scale appropriately * Identify options for pain control - Analgesics - Narcotics - Non-medication measuresTriHealth [facility] 2024 4:52pmAbsence of imbalanced fluid volume s/s [facility] 2024 4:52pmAbsence of physical injury [facility] 2024 4:52pmAbsence of surgical site infection [facility] 2024 4:52pm Hospital Discharge Instructions Additional Instructions DISCHARGE INSTRUCTIONS FOR GENERAL SURGERY YOUR ACTIVITY MAY INCLUDE: - Going up and down stairs slowly. - Walking around the house or outside if the weather is satisfactory. - No driving while taking Percocet. -Light housework or light work permitted in 2 weeks. -Heavy lifting permitted 6 weeks following surgery WOUND CARE/INCISION CARE: Prior to showering, remove umbilical packing and save it. After your shower dry the umbilical skin and reinsert the round gauze packing. Then cover with dry gauze. The sutures are underneath the skin and will dissolve by themselves. The incisions are covered with surgical glue, there is no need for additional Band-Aids It is safe to get the wounds wet with soap and water in the shower, no hot tubs or tub baths. -Is it common to feel pulling or sharp sticking sensations in the area of incision, these sensations are a part of the normal healing process. - If you develop fever, increasing pain, redness, or swelling around the incision, please notify our office MEDICATION - Resume all previous medications that you were taking for problems unrelated to your surgery, unless informed otherwise. If there are any problems with this, please call the original prescribing doctor. If you have any other questions regarding medications, please call our office. - Over the counter medications such as Acetaminophen, Ibuprofen, Naproxen, and others may be used as directed for pain unless a prescription was provided. History & Physical Note Author Abdulkadir Dominique [facility] HospitalNote Date/TimeOctober 2024 2:01pm [place] [address] General Surgery H&P Signed Patient: Johnson Vera MR#: [id number] : 1990 Acct:[id number] Age/Sex: 35 / F Adm Date: 5 Loc: Room: [address] [place] [address] Type: ADM IN Attending Dr: Abdulkadir Dominique DO Copies to: DO Ariane Roche NP-C~ Date of Service: 06/21/2025 HPI History of Present Illness HPI: Ms. Vera is a 35 year old female who states that she woke up and around 6:15 AM developed severemid abdominal pain around her umbilicus. She has never had this pain before. It was quite intense, she went to the [facility] emergency room where she was diagnosed with incarcerated umbilicalhernia with small bowel but no evidence of small bowel obstruction. I was called by the ER and asked for [facility]. The patient was subsequently transferred and being broughtto the operating room on an urgent basis. She states the pain remains in the same periumbilical area. She does have nausea but has not had any vomiting. Review of Systems Review of Systems All other systems reviewed & are negative unless noted below or in HPI Gastrointestinal Gastrointestinal: Reports abdominal pain and Reports nausea [facility] Medical History (Updated 06/21/25 @ 13:59 by Abdulkadir Dominique DO) Sleep apnea with use of continuous positive airway pressure (CPAP) Problem List clean-up per request of Phys. EHR Cmte Smoker Problem List clean-up per request of Phys. EHR Cmte Back pain Problem List clean-up per request of Phys. EHR Cmte Arthritis Problem List clean-up per request of Phys. EHR Cmte Nausea & vomiting Problem List clean-up per request of Phys. EHR Cmte Sleep trouble Problem List clean-up per request of Phys. EHR Cmte PCOS (polycystic ovarian syndrome) Problem List clean-up per request of Phys. EHR Cmte Depression Problem List clean-up per request of Phys. EHR Cmte Borderline diabetes Problem List clean-up per request of Phys. EHR Cmte Anxiety Problem List clean-up per request of Phys. [facility] (Updated 06/21/25 @ 13:56 by Abdulkadir Dominique DO) History of tubal ligation History of colonoscopy Problem List clean-up per request of Phys. [facility] History of esophagogastroduodenoscopy (EGD) Problem List clean-up per request of Phys. [facility] History [facility] ear surgery tubes ears Problem List clean-up per request of Phys. 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 Meds Medications and Allergies Allergies prednisone Allergy (Unknown, Verified 06/21/25 12:33) Shakiness, shaking Home Medications metformin 500 mg tablet,extended release 24 hr 500 mg PO BID #60 tabs 06/08/25 [Rx Confirmed 06/21/25] tirzepatide 5 mg/0.5 mL subcutaneous pen injector (Mounjaro) 5 mg (0.5 mL) subcut QWEEK #2 mL 06/08/25 [Rx Confirmed 06/21/25] Exam Physical Exam Vital Signs: Temp Pulse Resp BP Pulse Ox O2 Del Method 98.2 F 65 16 113/73 96 Room Air 06/21/25 13:00 06/21/25 13:00 06/21/25 13:00 06/21/25 13:00 06/21/25 13:00 06/21/25 13:00 Const General: cooperative Nutritional Appearance: obese Orientation: alert, awake and oriented x3 HEENT Head: normal to inspection Ears: hearing grossly normal bilaterally Nose: external nose normal Face and sinus: normal facial exam Mouth: oral mucosae normal Eyes General: appearance normal, both eyes and all related structures Pupils: PERRL Neck Neck: normal visual inspection and full ROM Resp Effort & Inspection: normal respiratory effort and able to speak in complete sentences Auscultation: clear to auscultation bilaterally Cardio Rate: regular rate Rhythm: regular rhythm GI Inspection: non-distended and obesity Palpation: not firm, guarding, hernia umbilical and tender periumbilically Auscultation: normal bowel sounds Skin General: no rashes or lesions noted Neuro General: patient alert, patient awake and patient oriented x3 Extrem General: normal to inspection Psych Appearance: grossly normal Mental Status: mental status grossly normal Mood: congruent mood Affect: normal affect Speech and Movement: speech and movement normal Attitude: cooperative Thought Process: normal Thought Content: normal Insight: insight good Results - Gen. Surgery Pain Assessment Anterior Abdomen: Pain Description: Constant, Aching, Soreness and Cramping Pain Intensity: 10 Intake and Output 24 hour I&O: Intake & Output 06/20/25 06/21/25 06/21/25 23:59 07:59 15:59 Weight 105.6 kg Labs Laboratory Results - last 72 hr 06/21/25 12:59: POC Glucose 145 A&P - General Surgery (1) Incarcerated umbilical hernia: Plan This is a 35-year-old female who presented to the [facility] emergency room with acute onsetof abdominal pain in the periumbilical area beginning at 6AM. She had nausea but no vomiting. She was evaluated in the emergency room and diagnosed with an incarcerated umbilical hernia. The ER physician contactedme and requested transfer to [facility] for surgical management. The patient presents still in acute abdominal pain and around the umbilical area. On examination there is a palpable umbilical hernia with tenderness however there is no erythema or cellulitis of the overlying skin. I explained to the patient to the diagnosis of the incarcerated umbilical hernia and the recommendation for surgical repair. I did explain that the small bowel will be inspected, if it is loss his blood supply and nonviable segmental resection of the small bowel will be performed at the same time. We discussed the risks and benefits of surgery she is in agreement. Preoperative an tibioticswill be given and she will be brought to the operating room on an urgent basis. Documented By: Abdulkadir Dominique DO 06/21/25 13 53 Signed By: <Electronically signed by Abdulkadir Dominique DO> 06/21/25 1405
--- OUTSIDE RECORDS SUMMARY | 2025-06-27 13:30 | XMS_ITS | Encounter Summary ---
Author Organization [facility] Address [address] [place] [address] Care Team Providers Care Reducing System Operator Name Role Phone Channing Freire MD Unavailable Ariane Wells NP Unavailable [phone] Reason for Visit * ReasonCommentsHosp. 1st po Umb. hernia repairIncision check Encounter Details DateTypeDepartmentCare Team (Latest Contact Info)Tjxunmccdax57/27/2025 1:30 PM EDTOffice Visit [facility] [address] [address] Abdulkadir Dominique DO [address] [address] Umbilical hernia with obstruction, without gangrene (Primary Dx) Social History Tobacco UseTypesPacks/DayYears UsedDateSmoking Tobacco: Every DaySmokeless Tobacco: NeverAlcohol UseStandard Drinks/WeekCommentsNot Currently0 (1 standard drink = 0.6 oz pure alcohol)caffine: coffee: 20oz and soda: 1.5L bottle daily PHQ-2AnswerDate RecordedPatient Health Questionnaire-2 [id number] CommentsUnknownSex and Gender InformationValueDate RecordedSex Assigned at Not on fileLegal WrfGatbxq09/15/2023 9:50 PM EDTGender IdentityNot on fileSexual OrientationNot on filedocumented as of this encounter Last Filed Vital Signs Vital SignReadingTime TakenCommentsBlood Pressure--Pulse--Temperature-- Respiratory Rate--Oxygen Saturation--Inhaled Oxygen Concentration--Qnixub623 kg (246 lb)06/27/2025 1:28 PM KQGWpxyqi646 cm (5' 3 )06/27/2025 1:28 PM EDTBody Mass Index43.5810 1:28 PM EDTdocumented in this encounter Progress Notes * Abdulkadir Dominique DO - 06/27/2025 1:30 PM EDT Images from the original note were not included. Johnson Vera is a 35 y.o. female presents for Hosp. 1st po Umb. hernia repair (Incision check) HPI: HPI Johnson presents for her first post-op from umbilical hernia repair. She presented to [facility] with an incarcerated umbilical hernia and was transferred [place] [facility] [place]. OBJECTIVE: Physical Exam Abdominal: Comments: Umbilical incision is healing well, she has ecchymosis below the umbilicus, no drainage ASSESSMENT AND PLAN: Assessment/Plan Diagnoses and all orders for this visit: Umbilical hernia with obstruction, without gangrene Johnson is recovering from her umbilical hernia repair with small bowel incarceration. She had some drainage from the incision but that appears to have stopped. She does have ecchymosis below the umbilicus but that will resolve. I discussed wound care and returning to work next week. I'll see her PRN. documented in this encounter Plan of Treatment Not on file documented as of this encounter Visit Diagnoses Diagnosis Umbilical hernia with obstruction, without gangrene- Primary Umbilical hernia with obstruction documented in this encounter Additional Health Concerns AssessmentNoted TimePHQ-9 Depression Total Score: 804 1:28 PM EDT documented as of this encounter Care Teams Team MemberRelationshipSpecialtyStart DateEnd Date Channing Freire MD [address] [address] PCP - [facility]/09/24 Ariane Wells NP [address] [facility] [place] [address] Nurse PractitionerFamily Hrdbttcy85/27/25documented as of this encounter
[2025-07-01 13:55] VITALS: BP 131/75; PULSE 80; TEMP 37.1; O2SAT 97; BMI 39.9
--- OUTSIDE RECORDS SUMMARY | 2025-07-01 14:21 | XMS_ITS | Encounter Summary ---
Author Organization [facility] Address [address] [place] [address] Care Team Providers Care Paper Conservator Name Role Phone Channing Freire MD Unavailable Ariane Wells NP Unavailable [phone] Encounter Details DateTypeDepartmentCare Team (Latest Contact Info)Btfbzkrbvne10/27/2025Telephone [facility] [address] [facility] [address] [place] [address] Abdulkadir Dominique, 703 [facility] 150 [place] [address] Social History Tobacco UseTypesPacks/DayYears UsedDateSmoking Tobacco: Every DaySmokeless Tobacco: NeverAlcohol UseStandard Drinks/WeekCommentsNot Currently0 (1 standard drink = 0.6 oz pure alcohol)caffine: coffee: 20oz and soda: 1.5L bottle daily PHQ-2AnswerDate RecordedPatient Health Questionnaire-2 Batrw2644 CommentsUnknownSex and Gender InformationValueDate RecordedSex Assigned at Not on fileLegal OdvKoyayg11/15/2023 9:50 PM EDTGender IdentityNot on fileSexual OrientationNot on filedocumented as of this encounter Miscellaneous Notes * Telephone Encounter - Tabby Haley - 06/27/2025 1:37 PM EDT Return to work documented in this encounter Plan of Treatment Not on file documented as of this encounter Visit Diagnoses Not on filedocumented in this encounter Additional Health Concerns AssessmentNoted TimePHQ-9 Depression Total Score: 8012/25/2023 1:28 PM EDT documented as of this encounter Care Teams Team MemberRelationshipSpecialtyStart DateEnd Date Channing Freire MD 112 [facility] 100 [place] [address] PCP - [facility]/09/24 Ariane Wells NP [address] [place] [address] Nurse PractitionerFamily Rtuwzxfj64/27/25documented as of this encounter
--- OUTSIDE RECORDS SUMMARY | 2025-07-01 14:21 | XMS_ITS | Patient Health Record ---
Author Organization [employer] [facility] [facility] Address [address] [place] [address] Care Team Providers Care Stereotyper Helper Name Role Phone Dr. Raymond Macario Primary [...] Date [employer]-termed 10/01/22 [address] [place] [address] [id number] Bolivar OSBORNE - patient is the gczavsk0209/01/2021zMEDICAID CFC after [facility]-termed 10/01/22[address] [place] [phone] [id number] PRETTY - patient is the djfjkll3809/01/2021zDENTAL DQ [employer]-termed 10/01/22[address] [place] [id number], JAMIESelf - patient is the isxymcu4609/01/2021 zDental MEDICAID CFC after [facility]-termed 10/01/22[address] [place] [id number], JAMIESelf - patient is the fcoalyq46/01/2022Dental [place] DQ Terminated 08/31/24[address] [place] [id number], JAMIESelf - patient is the /01/2023Dental Wrap [facility] [place] BCBS Termed [address] [place] [phone], JAMIESelf - patient is the dylquxi4410/02/2022
--- OUTSIDE RECORDS SUMMARY | 2025-07-01 14:21 | XMS_ITS | Encounter Summary ---
Author Organization [facility] Address [address] [place] [address] Care Team Providers Care Software Test And Validation Engineer Name Role Phone Channing Freire MD Unavailable [phone] Ariane Wells NP Unavailable [phone] Encounter Details DateTypeDepartmentCare Team (Latest Contact Info)Rpvbcofurks28/27/2025Travel Social History Tobacco UseTypesPacks/DayYears UsedDateSmoking Tobacco: Every DaySmokeless Tobacco: NeverAlcohol UseStandard Drinks/WeekCommentsNot Currently0 (1 standard drink = 0.6 oz pure alcohol)caffine: coffee: 20oz and soda: 1.5L bottle daily PHQ-2AnswerDate RecordedPatient Health Questionnaire-2 Mlhss5604 CommentsUnknownSex and Gender InformationValueDate RecordedSex Assigned at Not on fileLegal UdzTiqdve71/15/2023 9:50 PM EDTGender IdentityNot on fileSexual OrientationNot on filedocumented as of this encounter Plan of Treatment Not on file documented as of this encounter Visit Diagnoses Not on filedocumented in this encounter Additional Health Concerns AssessmentNoted TimePHQ-9 Depression Total Score: 8012/25/2023 1:28 PM EDT documented as of this encounter Care Teams Team MemberRelationshipSpecialtyStart DateEnd Date Channing Freire MD [address] [address] (Fax) PCP - [facility]12/01/23 Ariane Wells NP [address] [place] [address] Nurse PractitionerFamily Rtkvejgu33/27/25documented as of this encounter
--- OUTSIDE RECORDS SUMMARY | 2025-07-01 14:21 | XMS_ITS | Clinical Summary ---
Author Organization [facility] Address [address] [place] [address] Care Team Providers Care Health Manager Name Role Phone Channing Freire MD Unavailable Ariane Wells NP Unavailable [phone] Allergies Active AllergyReactionsCriticalityNoted LfsiJuggpnoeBdguaqofxgZmea00/25/2024 Medications MedicationSigDispense QuantityRefillsLast FilledStart DateEnd DateStatus traZODone (Desyrel) 50 MG tablet Take 100 mg by mouth at bedtimeActive spironolactone (Aldactone) 50 MG tablet Take 50 mg by mouth DailyActive pravastatin (Pravachol) 20 MG tablet Take 20 mg by mouth in the btuqrbs4101/28/2023ctive metFORMIN XR (Glucophage-XR) 500 MG 24 hr [...] USE ONE BEFORE EACH MEAL AND AT AADLAIF6301/28/2023ctive FLUoxetine (PROzac) 40 MG capsule Take 40 [...] tablet ChewActive Active Problems ProblemNoted DateDiagnosed DateYeast gweokgdbo88/23/2024Vaginal discharge 06/16/2024 Overview (06/16/2024): Letha [id number] EXP 08/31/24 Lot #[id number] Assessment & Plan (06/16/2024 5:57 PM EDT): Health trax vaginitis exam Encounter for well woman exam with routine gynecological exam06/16/2024 Assessment & Plan (06/16/2024 5:57 PM EDT): Thin prep Fu as per PAP indications Generalized anxiety disorder with panic bdjcqai9506/16/2024 Assessment & Plan (06/16/2024 6:00 PM EDT): Worsening anxiety while in the car Will try increasing buspar 10mg TID Fu in 6 weeks Candidiasis of zpnhqm5905/26/2024Type 2 diabetes mellitus without complication, with long-term current use of woobwxp0503/16/2024 Assessment & Plan (03/16/2024 1:22 PM EDT): [...] refill of test strips as well Granuloma gbfonznl33/16/2024 Assessment & Plan (03/16/2024 1:22 PM EDT): No help with steroid cream Will refer to derm Acquired deformity of right ankle12/25/2023ADHD12/25/2023ipolar disorder 12/25/20235982Vrxrohykxy61/25/2024MI 45.0-49.9, adult12/25/2023lass 3 severe obesity due to excess calories with body mass index (BMI) of 40.0 to 44.9 in adult12/25/2023onductive hearing loss, nxnwplsob69/25/2024urrent tobacco use 12/25/2023DD (degenerative disc disease), iipkjf2312/25/2023ysfunction of both eustachian tubes12/25/2023Female zintlxvmzmm75/25/9175Zzswojqa87/25/2024OSA (obstructive sleep apnea)12/25/2023Osteochondral defect of talus12/25/2023COS (polycystic ovarian syndrome)12/25/2023Umbilical sdurii6212/25/2023Vitamin D akzhgnrtfp65/25/2024Muscle spasm12/25/2023 Assessment & Plan (01/15/2024 3:11 PM EDT): Refaxed to [facility] Pain Mgmt Assessment & Plan (12/25/2023 2:24 PM EDT): Try muscle relaxer, will refer to pain mgmt [facility] Fu in 3 weeks Resolved Problems ProblemNoted DateDiagnosed DateResolved DateForeign body granuloma of soft tissue, not elsewhere classified, unspecified ankle and foot/ Uscssolb49/ Assessment & Plan (01/15/2024 3:10 PM EDT): Reviewed A1c level, needs to get an appt with Marija Assessment & Plan (12/25/2023 2:25 PM EDT): Has not been to see Endo for several months Encounters DateTypeDepartmentCare VjzgNkfaktjdinu66/27/2025 1:30 PM EDTOffice Visit [facility] [address] [address] Abdulkadir Dominique, Umbilical hernia with obstruction, without gangrene (Primary Dx)06/27/2025 Telephone [facility] 703 [facility] [address] [place] [address] Abdulkadir Dominique, DO 06/27/20254108Glpegs98/24/2025Orders Only [facility] 703 [facility] [address] [place] [address] Abdulkadir Dominique, DO 06/21/20259009Hsdpzy16/21/2025External Result Encounter [facility] Unsolicited Abdulkadir Dominique, DO 04/14/2025Patient Outreach [facility] [address] [place] [address] Kenya Aguila LSW 04/14/2025bstract [facility] [address] [place] [address] Ariane Wells NP from Last 3 Months Immunizations ImmunizationAdministration DatesNext DueModerna SARS-CoV-2 Saawllnopol52/20/2021 Family History Medical HistoryRelationNameCommentsDiabetesFatherBreast cancerMaternal HnzhxwkcbfxXubdlvdzpuhlGdmakoFhfrjkneQtvhQvhubdGgmyqbkiSihfqgk0CalurLjdeqk NghoustzVvxe-Kpijfjj9XxehxBrop-Qezyoy3DlxwcKxpiqsba GrandmotherMotherAliveSon1 Alive Social History Tobacco UseTypesPacks/DayYears UsedDateSmoking Tobacco: Every DaySmokeless Tobacco: Never Tobacco Cessation:Ready to Q uit: Not Asked; Counseling Given: Not Answered Alcohol UseStandard Drinks/WeekCommentsNot Currently0 (1 standard drink = 0.6 oz pure alcohol)caffine: coffee: 20oz and soda: 1.5L bottle dailyPHQ-2AnswerDate RecordedPatient Health Questionnaire-2 Pzsfb7394CommentsUnknown Sex and Gender InformationValueDate RecordedSex Assigned at BirthNot on file Legal SqkSkkosk19/15/2023 9:50 PM EDTGender IdentityNot on fileSexual OrientationNot on file Last Filed Vital Signs Vital SignReadingTime TakenCommentsBlood Urntkrhq643/801 5:05 PM EDT Chjvb996506/16/2024 5:05 PM FWNDlpkkslpkho62.1 ??C (98.8 ??F)06/16/2024 5:05 PM EDTRespiratory Gdxg8113 5:05 PM EDTOxygen Szmeslfpuu07%06/16/2024 5:05 PM EDTInhaled Oxygen Concentration--Zoiwge371 kg (246 lb)06/27/2025 1:28 PM EDT Oujpml615 cm (5' 3 )06/27/2025 1:28 PM EDTBody Mass Index43.5806/27/2025 1:28 PM EDT Plan of Treatment Health MaintenanceDue DateLast DoneCommentsMMR Vaccines (1 of 1 - Standard series)1989DTaP/Tdap/Td Vaccines (1 - Tdap)1995Diabetes: Retinopathy Vyztsjroc37/07/1998Varicella Vaccines (1 of 2 - 13+ 2-dose series)2001 Hepatitis B Vaccines (1 of 3 - 19+ 3-dose series)2007Pneumococcal Vaccine: Pediatrics (0 to 5 Years) and At-Risk Patients (6 to 64 Years) (1 of 2 - PCV) 2007HPV Vaccines (1 - 3-dose SCDM series)2015HPV/Kyopyq0306/07/2018 Diabetes: Hemoglobin A1C04/08//4Diabetes: Urine Protein Screening /4COVID-19 Vaccine ( season)/, 08/01/2021, 07/11/2021ervical Cancer Fdvghehvk96/16/2027Pap Smear06/16/2027 06/16/2024, 06/20/2020HIB VaccinesAged OutNo longer eligible based on patient's age to complete this topicHepatitis A VaccinesAged OutNo longer eligible based on patient's age to complete this topicIPV VaccinesAged OutNo longer eligible based on patient's age to complete this topicInfluenza VaccineDiscontinued Meningococcal B VaccineAged OutNo longer eligible based on patient's age to complete this topicMeningococcal VaccineAged OutNo longer eligible based on patient's age to complete this topicRotavirus VaccinesAged OutNo longer eligible based on patient's age to complete this topic Procedures Procedure NamePriorityDate/TimeAssociated DiagnosisCommentsGLUCOSE POCT AQMCHTSCVRGSaydfkq95/21/2025 12:59 PM EDT GENERAL DUDTNMYOOLtaxonm15/21/2025 9:49 AM EDTfrom Last 3 Months Results * GLUCOSE POCT GLUCOMETERS (06/21/2025 12:59 PM EDT)ComponentValueRef RangeTest MethodAnalysis TimePerformed AtPathologist SignatureGLUCOSE POC TIDEHRMGQIR912 mg/dL06/21/2025 1:12 PM EDTFIRELANDSComment: Random Glucose Reference Range is dependent on time and content of last meal. Glucose of more than 200 mg/dL in a nonstressed, ambulatory subject supports the diagnosis of Diabetes Mellitus. Specimen (Source)Anatomical Location / LateralityCollection Method / Volume Collection TimeReceived TimeBlood (Blood)06/21/2025 12:59 PM EDT1 1:11 PM EDT Narrative Authorizing ProviderResult TypeResult StatusFredric H Trip [facility] BLOOD ORDERABLESFinal ResultPerforming OrganizationAddressCity/State/[facility] CodePhone Number [facility] [address] [place] [address], * GENERAL PATHOLOGY (06/21/2025 9:49 AM EDT) Narrative Authorizing ProviderResult TypeResult StatusFredric H Trip DOCLINISYNCFinal Result from Last 3 Months Insurance Care Teams Team MemberRelationshipSpecialtyStart DateEnd Date Channing Freire MD 112 [facility] 100 [place] [address] PCP - [facility]12/01/23 Ariane Wells NP [address] [place] [address] Nurse PractitionerFasouth shore hospital Taplpkjk81/27/25
--- OUTSIDE RECORDS SUMMARY | 2025-07-01 14:21 | XMS_ITS | Encounter Summary ---
Author Organization [facility] Address [address] [place] [address] Care Team Providers Care Evening Anchor Name Role Phone Georges Shook MD Primary Care Provider [phone] Channing Freire MD Unavailable [phone] Ariane Wells NP Unavailable [phone] Encounter Details DateTypeDepartmentCare Team (Latest Contact Info)Mtdskurjsbc40/24/2025Orders Only [facility] 703 [facility] 150 [place] [address] Abdulkadir Dominique DO 703 [facility] [address] [place] [address] Social History Tobacco UseTypesPacks/DayYears UsedDateSmoking Tobacco: Every DaySmokeless Tobacco: NeverAlcohol UseStandard Drinks/WeekCommentsNot Currently0 (1 standard drink = 0.6 oz pure alcohol)caffine: coffee: 20oz and soda: 1.5L bottle daily PHQ-2AnswerDate RecordedPatient Health Questionnaire-2 Grtks5314 CommentsUnknownSex and Gender InformationValueDate RecordedSex Assigned at Not on fileLegal UsxOjocaw97/15/2023 9:50 PM EDTGender IdentityNot on fileSexual OrientationNot on filedocumented as of this encounter Plan of Treatment Not on file documented as of this encounter Procedures Procedure NamePriorityDate/TimeAssociated DiagnosisCommentsGENERAL PATHOLOGY Vmaibva82/ 9:49 AM EDTdocumented in this encounter Results * GENERAL PATHOLOGY (06/21/2025 9:49 AM EDT) Narrative Authorizing ProviderResult TypeResult StatusFredric Brenda Trip DOCLINISYNCFinal Result documented in this encounter Visit Diagnoses Not on filedocumented in this encounter Additional Health Concerns AssessmentNoted TimePHQ-9 Depression Total Score: 8012/25/2023 1:28 PM EDT documented as of this encounter Care Teams Team MemberRelationshipSpecialtyStart DateEnd Date Georges Shook MD PCP - GeneralFamily Medicine02/19/2310 Channing Freire MD 112 [facility] 100 [place] [address] PCP - DELANEY Still [facility]12/01/23 Ariane Wells NP [address] [place] [address] Nurse PractitionerFamily Uuxcqxau91/27/25documented as of this encounter
--- OUTSIDE RECORDS SUMMARY | 2025-07-01 14:21 | XMS_ITS | Encounter Summary ---
Author Organization [facility] Address [address] [place] [address] Care Team Providers Care Seeing Eye Dog Teacher Name Role Phone Georges Shook MD Primary Care Provider [phone] Channing Freire MD Unavailable [phone] Ariane Wells NP Unavailable [phone] Encounter Details DateTypeDepartmentCare Team (Latest Contact Info)Uasqgtdbcms43/26/2024Clinisync Result Encounter [facility] External Department Unsolicited Provider, Generic External Data Social History Tobacco UseTypesPacks/DayYears UsedDateSmoking Tobacco: Every DaySmokeless Tobacco: NeverAlcohol UseStandard Drinks/WeekCommentsNot Currently0 (1 standard drink = 0.6 oz pure alcohol)caffine: coffee: 20oz and soda: 1.5L bottle daily PHQ-2AnswerDate RecordedPatient Health Questionnaire-2 [id number] CommentsUnknownSex and Gender InformationValueDate RecordedSex Assigned at Not on fileLegal UnxIuyvgf28/15/2023 9:50 PM EDTGender IdentityNot on fileSexual OrientationNot on filedocumented as of this encounter Functional Status * Over the past 2 weeks, how often have you been bothered by any of the following problems?QuestionAnswerDate of AssessmentAuthorLittle interest or pleasure in doing thingsSeveral days03/16/2024 11:47 AM EDTHumbarger, Gaviota, MAFeeling down, depressed, or hopelessSeveral 03/16/2024 11:47 AM EDT Gaviota Alfaro MAPatient Health Questionnaire-2 [id number] 11:47 AM Gaviota Gomez MA documented as of this encounter Plan of Treatment Not on file documented as of this encounter Procedures Procedure NamePriorityDate/TimeAssociated DiagnosisCommentsMR CERVICAL SPINE WO GXSRIGAP50/26/2024 12:07 AM EDT documented in this encounter Results * MR cervical spine wo contrast (02/25/2024 12:07 AM EDT)Anatomical Region LateralityModalitySpine, C-spineMagnetic ResonanceSpecimen (Source)Anatomical Location / LateralityCollection Method / VolumeCollection TimeReceived Time 02/25/2024 12:07 AM EDT Narrative 02/25/2024 12:09 AM EDT [facility] ?[address] ? [place] [address] ? Magnetic Resonance Report ? Signed ? Patient: MARILIA VERA ?MR#: [id number] ?? : 1990 ?Acct:[id number] ?? Age/Sex: 33 / F ?ADM Date: 02/24/24 ?? Loc: MRI ? Attending Dr: Rush Garcia M.D. ? Ordering Physician: Rush Garcia M.D. ?? Date of Service: 02/24/24 ?? Procedure(s): MR cervical spine wo con ?? Accession Number(s): [id number] ? cc: Ariane Wells AIR LIFT OPERATOR; Rush Garcia M.D. ? [facility] ? [address] ? [place] [address] ? Patient Name: ?? MARILIA VERA ? MRN: [facility]:[id number] ? date: 1990 ?Sex: F ?? Assigned Patient Location: MRI ?? Current Patient Location: ? Accession/Order Number: [id number] ?? Exam Date: 02/24/2024 ??15:40 ?Report Date: 02/25/2024 ??00:07 ? At the request of: ?? ANDRIUS ??GIEDRAITIS ? Procedure: ??MR cervical spine wo con ? EXAM: MR cervical spine wo con ? HISTORY: Cervical Radiculopathy ? COMPARISON: None. ? TECHNIQUE: Sagittal T1, T2, STIR, axial T2, and T2 gradient echo images of the ? cervical spine were obtained. ? FINDINGS: ? The vertebral body heights are preserved. There is mild reversal of the normal ? cervical lordosis, centered at C3-4 level. No significant disc space narrowing ? is seen. There is no subluxation identified. ? The bone marrow signal intensity appears normal. The craniovertebral junction ?? appears grossly within normal limits. ? The signal intensity of the cervical spinal cord appears grossly within normal ? limits. ? There are multilevel mild marginal spurring. ? At C3-4 level, there is a small left foraminal disc protrusion and mild ?? left-sided uncovertebral joint hypertrophy, resulting in mild left neural ?? foraminal narrowing. No spinal canal stenosis. ? At C4-5 level, there is left paracentral/foraminal disc protrusion and ?? uncovertebral osteophyte. No spinal canal stenosis. Moderate left neural ?? foraminal narrowing is identified. ? No significant disc protrusion, spinal canal stenosis, or foraminal narrowing ?? is seen at other levels. ? MR/MR cervical spine wo con ?? IMPRESSION: ? Left paracentral /foraminal disc protrusion and uncovertebral osteophyte at ?? the ?? C4-5 level, causing moderate left neural foraminal narrowing. Small left ?? foraminal disc protrusion and mild uncovertebral osteophyte at C3-4 level, ?? resulting in mild left neural foraminal narrowing. No neural foraminal ?? narrowing at other levels. ? No spinal canal stenosis at any level. ? Mild reversal of the normal cervical lordosis, centered at C3-4 level ? Electronically authenticated by: CORNELIA ??UNLU ?? Date: 02/25/2024 ??00:07 ? Dictated By: ?UNLU,CORNELIA M.D. ? Signed By: ?02/25/248 ? DD/ ? TD/TT: ? Vp Product Management: Procedure Note Radiology, Radiologist, MD - 02/25/[address] [address] Magnetic Resonance Report Signed Patient: MARILIA VERA LMR#: [id number] : 1990Acct:[id number] Age/Sex: 33 / FADM Date: 02/24/24 Loc: MRI Attending Dr: Rush Garcia M.D. Ordering Physician: Rush Garcia M.D. Date of Service: 02/24/24 Procedure(s): MR cervical spine wo con Accession Number(s): [id number] cc: Ariane Wells NP; Rush Garcia M.D. [place] [address] Patient Name: MARILIA VERA MRN: [id number] date: 1990 Sex: F Assigned Patient Location: MRI Current Patient Location: Accession/Order Number: [id number] Exam Date: 02/24/2024 15:40 Report Date: 02/25/2024 [...] 00:07 Dictated By: CORNELIA POSADA M.D. Signed By:02/25/248 DD/ TD/TT: Vp Product Management: Authorizing ProviderResult TypeResult StatusGeneric External Data ProviderIMG MRI PROCEDURESFinal Result documented in this encounter Visit Diagnoses Not on filedocumented in this encounter Additional Health Concerns AssessmentNoted TimePHQ-9 Depression Total Score: 8012/25/2023 1:28 PM EDT documented as of this encounter Care Teams Team MemberRelationshipSpecialtyStart DateEnd Date Georges Shook MD PCP - GeneralFamily Medicine02/19/2310 Channing Freire MD [address] [address] PCP - [facility] [place] [facility]12/01/23 Ariane Wells NP [address] [place] [address] Nurse PractitionerFamily Blsqoell19/27/25documented as of this encounter
--- OUTSIDE RECORDS SUMMARY | 2025-07-01 14:21 | XMS_ITS | Encounter Summary ---
Author Organization [facility] Address [address] [place] [address] Care Team Providers Care Fly Maker Name Role Phone Georges Shook MD Primary Care Provider [phone] Channing Freire MD Unavailable [phone] Encounter Details DateTypeDepartmentCare Team (Latest Contact Info)Hmpnpgeznvz46/21/2025Travel Social History Tobacco UseTypesPacks/DayYears UsedDateSmoking Tobacco: Every DaySmokeless Tobacco: NeverAlcohol UseStandard Drinks/WeekCommentsNot Currently0 (1 standard drink = 0.6 oz pure alcohol)caffine: coffee: 20oz and soda: 1.5L bottle daily PHQ-2AnswerDate RecordedPatient Health Questionnaire-2 [id number] CommentsUnknownSex and Gender InformationValueDate RecordedSex Assigned at Not on fileLegal MwsUzlfjd17/15/2023 9:50 PM EDTGender IdentityNot on fileSexual OrientationNot [...] Medicine02/19/2310 Channing Freire MD 112 [facility] [address] [place] [address] PCP - DELANEY Still [facility]/09/24documented as of this encounter
--- OUTSIDE RECORDS SUMMARY | 2025-07-01 14:21 | XMS_ITS | Encounter Summary ---
Author Organization [facility] Address [address] [place] [address] Care Team Providers Care Property And Casualty Insurance Agent Name Role Phone Georges Shook MD Primary Care Provider [phone] Channing Freire MD Unavailable [phone] Encounter Details DateTypeDepartmentCare Team (Latest Contact Info)Ztzhuoaonow38/21/2025External Result Encounter [facility] External Department Unsolicited Abdulkadir Dominique, DO [address] [address] Social History Tobacco UseTypesPacks/DayYears UsedDateSmoking Tobacco: Every DaySmokeless Tobacco: NeverAlcohol UseStandard Drinks/WeekCommentsNot Currently0 (1 standard drink = 0.6 oz pure alcohol)caffine: coffee: 20oz and soda: 1.5L bottle daily PHQ-2AnswerDate RecordedPatient Health Questionnaire-2 [id number] CommentsUnknownSex and Gender InformationValueDate RecordedSex Assigned at Not on fileLegal RrwAbsaao74/15/2023 9:50 PM EDTGender IdentityNot on fileSexual OrientationNot on filedocumented as of this encounter Plan of Treatment Not on file documented as of this encounter Procedures Procedure NamePriorityDate/TimeAssociated DiagnosisCommentsGLUCOSE POCT HPYKBTSQMPFLflmnxc73/21/2025 12:59 PM EDT documented in this encounter Results * GLUCOSE POCT GLUCOMETERS (06/21/2025 12:59 PM EDT)ComponentValueRef RangeTest MethodAnalysis TimePerformed AtPathologist SignatureGLUCOSE POC [id number] mg/dL06/21/2025 1:12 PM EDTFIRELANDSComment: Random Glucose Reference Range is dependent on time and content of last meal. Glucose of more than 200 mg/dL in a nonstressed, ambulatory subject supports the diagnosis of Diabetes Mellitus. Specimen (Source)Anatomical Location / LateralityCollection Method / Volume Collection TimeReceived TimeBlood (Blood)06/21/2025 12:59 PM EDT1 1:11 PM EDT Narrative Authorizing ProviderResult TypeResult StatusFredric Trip [facility] BLOOD ORDERABLESFinal ResultPerforming OrganizationAddressCity/State/ZIP CodePhone Number [facility] [address] [place] [address], documented in this encounter Visit Diagnoses Not on filedocumented in this encounter Additional Health Concerns AssessmentNoted TimePHQ-9 Depression Total Score: 804 1:28 PM EDT documented as of this encounter Care Teams Team MemberRelationshipSpecialtyStart DateEnd Date Georges Shook MD PCP - GeneralFamily Medicine02/19/2310 Channing Freire MD [address] [address] PCP - [facility] [place] [facility]12/01/23documented as of this encounter
--- OUTSIDE RECORDS SUMMARY | 2025-07-01 14:24 | XMS_ITS | CCD ---
Author Organization [facility] Care Team Providers Care Coin Machine Supervisor Name Role Phone AICHHOLZ, WASHING MACHINE INSTALLER ARIANE Attending Unavailable AICHHOLZ, WASHING MACHINE INSTALLER ARIANE Admitting Unavailable AICHHOLZ, WASHING MACHINE INSTALLER ARIANE Primary Care Unavailable JOSE EDUARDO RIVERS V Consulting Unavailable AICHHOLZ, WASHING MACHINE INSTALLER ARIANE Consulting Unavailable TIMMIS, DR MEJIA Consulting Unavailable AICHHOLZ, WASHING MACHINE INSTALLER ARIANE Primary Care Unavailable TIMMIS, DR MEJIA Attending Unavailable TIMMIS, DR MEJIA Admitting Unavailable MAGDI BRIGGS Consulting Unavailable PAY ., DR SWANSON Admitting Unavailable PAY ., DR SWANSON Consulting Unavailable AICHHOLZ, WASHING MACHINE INSTALLER ARIANE Primary Care Unavailable PAY ., DR SWANSON Attending Unavailable AICHHOLZ, WASHING MACHINE INSTALLER ARIANE Primary Care Unavailable REINECK, DR KLAUDIA Kay Attending Unavailabl e KAITLIN, DR KLAUDIA Kay Admitting Unavailabl e REINECK, DR KLAUDIA Kay Consulting Unavailabl e JEYSON BLANTON Consulting Unavailable AICHHOLZ, WASHING MACHINE INSTALLER ARIANE Primary Care Unavailable GLEN ., GABINO Attending Unavailable GLEN ., GABINO Admitting Unavailable AICHHOLZ, WASHING MACHINE INSTALLER ARIANE Primary Care Unavailable JOSE EDUARDO RIVERS V Consulting Unavailable JEYSON BLANTON Consulting Unavailable GLEN .GABINO Consulting Unavailable PAY ., DR SWANSON Admitting Unavailable PAY ., DR SWANSON Consulting Unavailable AICHHOLZ, WASHING MACHINE INSTALLER ARIANE Primary Care Unavailable PAY ., DR SWANSON Attending Unavailable GERALDINE LAZAR Consulting Unavailable CORDELL ., DR DEL RIO Attending Unavailable HAY ., DR DEL RIO Admitting Unavailable AICHHOLZ, WASHING MACHINE INSTALLER ARIANE Primary Care Unavailable HAY ., DR DEL RIO Consulting Unavailable GLEN ., GABINO Attending Unavailable GLEN ., GABINO Admitting Unavailable AICHHOLZ, WASHING MACHINE INSTALLER ARIANE Primary Care Unavailable DONTRELL DIAZ Consulting Unavailable GLEN .GABINO Consulting Unavailable JOSE EDUARDO RHODES Consulting Unavailable AICHHOLZ, WASHING MACHINE INSTALLER ARIANE Referring Unavailable AICHHOLZ, WASHING MACHINE INSTALLER ARIANE Primary Care Unavailable YUKI, AHMAD Attending Unavailable YUKI, AHMAD Admitting Unavailable YUKI, AHMAD Consulting Unavailable AICHHOLZ, WASHING MACHINE INSTALLER ARIANE Consulting Unavailable AICHHOLZ, WASHING MACHINE INSTALLER ARIANE Attending Unavailable AICHHOLZ, WASHING MACHINE INSTALLER ARIANE Admitting Unavailable AICHHOLZ, WASHING MACHINE INSTALLER ARIANE Primary Care Unavailable HAYDE VAN Consulting Unavailable AICHHOLZ, WASHING MACHINE INSTALLER ARIANE Consulting Unavailable AICHHOLZ, WASHING MACHINE INSTALLER ARIANE Attending Unavailable AICHHOLZ, WASHING MACHINE INSTALLER ARIANE Admitting Unavailable AICHHOLZ, WASHING MACHINE INSTALLER RAIANE Primary Care Unavailable AMINATA BOURGEOIS Attending Unavailable BK, AMINATA Admitting Unavailable JEYSON BLANTON Consulting Unavailable AICHHOLZ, WASHING MACHINE INSTALLER ARIANE Primary Care Unavailable AMINATA BOURGEOIS Consulting Unavailable AICHHOLZ, WASHING MACHINE INSTALLER ARIANE Primary Care Unavailable TIMMIS, DR MEJIA Consulting Unavailable TIMMIS, DR MEJIA Attending Unavailable TIMMIS, DR MEJIA Admitting Unavailable ELIDA COWAN Consulting Unava ilable ARIANE WELLS Primary Care Physician [phone] Riky Le Attending Unavailable Jose LEUNG, Donavan Reid Attending Unavailable Georges Shook MD Primary Care Provider [phone] Channing Freire MD Unavailable Russell DOCKING PILOT-CAriane Primary Care Provider [phone] Russell DOCKING PILOT-CAriane Attending Provider [phone] Georges Shook MD Primary Care Provider Channing Freire MD Unavailable [phone] Trip DO, Viktoria Admit Provider Trip WADE, Viktoria Attending Provider Ariane Wells Primary Care Unavailable Viktoria Montilla Attending Unavailable Viktoria Montilla Admitting Unavailable Aicmarley DOCKING PILOT, Ariane Unavailable VIKTORIA MONTILLA Attending Unavailable Georges Shook MD Primary Care Provider Allergies Allergy ClassificationReported Allergen(s)Allergy TypeDate of OnsetReaction(s) Facility (2 sources)predniSONE; Translations: [predniSONE]Drug Lnyqzfg55-92-1199Gxx [facility] Repository (1 source)predniSONE; Translations: [prednisone]Drug Jcpcinn95-61-3228Uhaaztj speech (finding), Tremor (finding)[facility] Rosine (17 sources)PrednisonePropensity to adverse mbisvggsv22-65-4054Z[facility] Work Phone: (1 source)predniSONEDrug Eykqmnz13-05-3418LnidcxedkMer[facility] Medications Current Medications MedicationDrug Class(es)DatesSig (Normalized)Sig (Original)acetaminophen 325 mg / oxyCODONE hydrochloride 5 mg oral tablet (1 source)Opioid AgonistStart: 55-15-1636ebaf 1 tablet by mouth every six hours as needed for painARIPiprazole 15 mg oral tablet (20 sources)Atypical AntipsychoticStart: 06-03-2023 End: 23-59-6555otql 1 tablet by mouth once dailyARIPiprazole (Abilify) 15 MG tablet Take 15 mg by mouth Daily 06/03/2023 ActiveStart: 21-55-3409ocdw 1 tablet by mouth once dailyaripiprazole 5 mg Tab 5 mg = 1 tab(s), Oral, Daily, Refills(s) 0 Start Date: 01/25/20 Status: Orderedbetamethasone 1 mg/ml topical cream (20 sources)CorticosteroidStart: 36-64-4902hykuewsilutub valerate (Valisone) 0.1 % cream Indications: 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HCC)Apply to affected areas, up to twice a day when flared, do not use one the face, groin, or underarms, 30 day supply 45 g 3 05/18/2024 ActiveStart: 64-86-6797mwyhbzhtdmfig dipropionate (Diprolene) 0.05 % ointment Indications: 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HCC) Apply to affected areas, up to twice a day when flared, do not use one the face, groin, orunderarms, 30 day supply 45 g 3 05/11/2024 Active busPIRone hydrochloride 10 mg oral tablet (20 sources)Start: 06-16-2024 End: 61-27-3816hqeg 1 tablet by mouth in the morning, then take 1 tablet by mouth in the evening, then take 1 tablet by mouth at bedtimebusPIRone (Buspar) 10 MG tablet Indications: Generalized anxiety disorder with panic attacks Take 1 tablet (10 mg) by mouth in the morning and 1 tablet (10 mg) in the evening and 1 tablet (10 mg) before bedtime. 90 tablet 2 06/16/2024 ActiveStart: 06-03-2023 End: 30-91-6237mwmm 1 tablet by mouth three times dailyBuspirone 10 mg tablet Discontinued 10 MG PO Three times daily May 20, 2025 12:00am 2024 2:12pmStart: 53-06-2210yooBWGlgb Refills(s) 0 Start Date: 02/06/22 Status: OrderedCalcium (1 source)Phosphate Binder, CalciumStart: 41-38-6872wxbz 1 tablet by mouth once dailyCalcium 600+D 1 tab, Oral, Daily, Refill(s) 0 Start Date: 11/30/19 Status: Orderedcephalexin 500 mg oral capsule (1 source)Cephalosporin AntibacterialStart: 05-69-8646jhrv 1 capsule by mouth every eight hoursclobetasol propionate 0.5 mg/ml topical cream (17 sources)CorticosteroidStart: 05-79-5237gimiqojrel (Temovate) 0.05 % cream Indications: Granuloma annulare Apply topically Daily Apply to affected area once a day for up to 8 weeks. No use on face 45 g 01/15/2024 Activeclotrimazole 10 mg/ml vaginal cream (1 source)Azole AntifungalStart: 05-26-2024 End: 16-48-9810didlhopcmroo (Lotrimin) 1 % vaginal cream Indications: Candidiasis of vagina Insert 1 applicator into the vagina in the evening for 7 days 45 g 05/26/2024 06/02/2024 ActiveContinuous Glucose Sensor (FreeStyle Ksenia 2 Sensor) misc (17 sources)Start: 79-13-4810Mznhgpfpfw Glucose Sensor (FreeStyle Ksenia 2 Sensor) misc CHANGE SENSOR EVERY 14 DAYS 04/03/2023 Activefluconazole 150 mg oral tablet (5 sources)Azole AntifungalStart: 91-40-6352etcjtlstmbv (Diflucan) 150 MG tablet Indications: Yeast infection Take one dose every 3 days for 3 doses 3 tablet 06/23/2024 ActiveFLUoxetine 20 mg oral capsule (20 sources)Serotonin Reuptake InhibitorStart: 02-20-2022 End: 33-43-2898moof 1 capsule by mouth once dailyFluoxetine 40 mg capsule Discontinued 40 MG PO Daily May 20, 2025 12:00am June 0852:11pm Start: 01-06-2020 End: 82-08-7501zqas 1 capsule by mouth once dailyFLUoxetine (PROzac) 20 MG capsule Take 20 mg by mouth Daily 06/03/2023 ActiveStart: 01-06-2020 End: 50-35-6165rmzj 1 capsule by mouth once dailyFluoxetine 10 mg capsule Discontinued 10 MG PO Daily January 06, 2020 12:00am May 20, 2025 6:00pm gabapentin 100 mg oral capsule (18 sources)Anti-epileptic AgentStart: 02-02-2024 End: 95-35-3022hmix 1 capsule by mouth in the morning, then take 1 capsule by mouth in the evening, then take 1 capsule by mouth at bedtimegabapentin (Neurontin) 100 MG capsule Take 100 mg by mouth in the morning and 100 mg in the eveningand 100 mg before bedtime. 02/02/2024 ActiveHumuLIN R KwikPen (Concentrated) (1 source)Start: 37-11-9789VzjfOKA R KwikPen (Concentrated) Refills(s) 0 Start Date: 02/06/22 Status: Ordered3 ml insulin lispro 100 unt/ml pen injector (17 sources)Insulin Analoginsulin lispro (HumaLOG KWIKPEN) 100 UNIT/ML injection as directed Subcutaneous Active3 ml insulin, regular, human 500 unt/ml pen injector (17 sources)InsulinStart: 29-30-9346LqtyDLV R U-500 KWIKPEN 500 UNIT/ML CONCENTRATED injection INJECT 80 UNITS TWICE A DAY PLUS ISS 15>150 (EXPECT DAILY DOSE 225 UNITS) 11/01/2023 Activemagnesium oxide 250 mg oral tablet (1 source)Start: 11-39-1162iahz 1 tablet by mouth once dailymagnesium oxide 250 mg oral tablet 250 mg = 1 tab(s), Oral, Daily, Refills(s) 0 Start Date: 11/30/19 Status: Ddhzzfn71 hr metFORMIN hydrochloride 500 mg extended release oral tablet (20 sources)BiguanideStart: 34-73-5518rkdz 2 tablets by mouth twice daily, then take 1 tablet by mouth twice dailyMetformin 500 mg tablet extended release 24 hr Active 500 MG PO Twice daily 60 1 June 08, 2025 12:00am Uncontrolled type 2 diabetes mellitus, without long-term current use of insulin start with 1pill daily for 2 weeks, then increase to 1 pill twice a day Non-compliance of drug therapyStart: 01-06-2020 End: 69-21-0740fwlr 1 tablet by mouth twice dailyMetformin 500 mg tablet extended release 24 hr Discontinued 2 TAB PO Twice daily January 06, 2020 12:00am June 08, 2025 2:12pmStart: 58-74-0964pldc 2 tablets by mouth twice daily Glucophage XR 500 mg Tab-ER 1,000 mg = 2 tab(s), Oral, BID, Refills(s) 0 Start Date: 11/30/19 Status: Orderedtake 1 tablet by mouth every twenty-four hours in the morningmetFORMIN XR (Glucophage-XR) 500 MG 24 hr tablet Take 1,000 mg by mouth in the morning and 1,000 mgbefore bedtime. Activemethocarbamol 750 mg oral tablet (1 source)Muscle RelaxantStart: 11-27-2023 End: 56-72-5298nqxe 1 tablet by mouth three times dailyRobaxin-750 oral tablet 1,500 mg = 2 tab(s), Oral, TID, X 3 day(s), # 18 tab(s), Refills(s) 0, Pharmacy: [facility], 160, cm, 11/27/23 12:59:00 EDT, Height/Length Dosing, 114.1, kg, 11/27/23 12:59:00 EDT, Weight Dosing Start Date: 11/27/23 Stop Date: 11/30/23 Status: Orderednaproxen 500 mg oral tablet (1 source)Nonsteroidal Anti-inflammatory DrugStart: 84-29-2494fpck 1 tablet by mouth twice daily as needed for painNaprosyn 500 mg Tab 500 mg = 1 tab(s), Oral, BID, PRN for pain, # 20 tab(s), Refills(s) 0, Pharmacy: [facility], 160, cm, 11/27/23 12:59:00 EDT, Height/Length Dosing, 114.1, kg, 11/27/23 12: 59:00 EDT, Weight Dosing Start Date: 11/27/23 Status: Orderedpravastatin sodium 20 mg oral tablet (19 sources)HMG-CoA Reductase InhibitorStart: 01-28-2023 End: 48-61-9548ljjl 1 tablet by mouth in the eveningpravastatin (Pravachol) 20 MG tablet Take 20 mg by mouth in the evening 01/28/2023 ActiveTirzepatide (1 source)Start: 59-09-9700Rcdpyobpgzm (Mounjaro) 5 mg/0.5 mL pen injector Active 5 MG SUBCUT every week 2 June 082:00am Uncontrolled type 2 diabetes mellitus, without long-term current use of insulin Complies with drug therapytiZANidine 4 mg oral tablet (18 sources)Central alpha-2 Adrenergic AgonistStart: 03-03-2024 End: 91-88-4436hbKUZjjjsg (Zanaflex) 4 MG tablet Take 4 mg by mouth 03/03/2024 Active Completed/Discontinued Medications MedicationDrug Class(es)DatesSig (Normalized)Sig (Original)[id number] 200 actuat albuterol 0.09 mg/actuat metered dose inhaler (19 sources)beta2-Adrenergic AgonistStart: 05-20-2025 End: 45-58-4565wbdi 1 puff(s) by inhalation every four to six hours as needed Albuterol Sulfate 90 mcg/actuation HFA aerosol inhaler Discontinued 2 PUFF INHALATION EVERY 4-6 HOURS as needed May 20, 2025 12:00am June 08, 2025 2:10pmtake 2 puff(s) by inhalation every six hours for wheezingalbuterol HFA 90 mcg/act inhaler Inhale 2 puffs every 6 (six) hours if needed for shortness of breath or wheezing Activebaclofen 10 mg oral tablet (2 sources)gamma-Aminobutyric Acid-ergic AgonistStart: 01-06-2020 End: 94-49-1497Jnhujfmj 10 mg Tablet Discontinued 10 MG PO As Directed January 06, 2020 12:00am May 20, 2025 5:58pmcalcium carbonate 1500 mg oral tablet (2 sources)Start: 01-06-2020 End: 36-16-8083jpyg 1 tablet by mouth once dailyCalcium Carbonate (Calcium 600) 600 mg calcium (1,500 mg) Tablet Discontinued 600 MG PO Daily January 06, 2020 12:00am May 20, 2025 5:58pmcholecalciferol 0.125 mg oral tablet (9 sources)Vitamin DStart: 05-20-2025 End: 29-31-4595xhev 1 tablet by mouth once dailyCholecalciferol (Vitamin D3) 125 mcg (5,000 unit) tablet Discontinued 125 MCG PO Daily May 20, 2025 12:00am June 08, 2025 2:10pmStart: 01-06-2020 End: 02-20-7860tuoc 1 tablet by mouth once dailyCholecalciferol (Vitamin D3) (Vitamin D3) 50 mcg (2,000 unit) Tablet Discontinued 2000 UNIT PO Daily January 06, 2020 12:00am May 20, 2025 5:58pmCholecalciferol 125 MCG (5000 UT) chewable tablet Chew Activecyclobenzaprine hydrochloride 10 mg oral tablet (16 sources)Muscle RelaxantStart: 05-20-2025 End: 38-90-2250vlbz 1 tablet by mouth twice daily as neededCyclobenzaprine 10 mg tablet Discontinued 10 MG PO Twice daily as needed May 20, 2025 12:00am June 08, 2025 2:10pmStart: 75-43-2541pant 1 tablet by mouth once, then take 0.5-1 tablets by mouth every twelve hourscyclobenzaprine (Flexeril) 10 MG tablet Indications: Muscle spasm Take 1 tablet (10 mg) by mouth every 12 (twelve) hours if needed for muscle spasms for up to 15 days May take 1/2-1 pill every 12 hours 30 tablet 12/25/2023 Activeempagliflozin 25 mg oral tablet (20 sources)Sodium-Glucose Cotransporter 2 InhibitorStart: 05-20-2025 End: 34-28-0749fyzj 1 tablet by mouth once dailyEmpagliflozin (Jardiance) 25 mg tablet Discontinued 25 MG PO Daily May 20, 2025 12:00am June 08, 2025 2:10pmStart: 30-79-4704Bgckbkpbj Refills(s) 0 Start Date: 02/06/22 Status: OrderedMagnesium (19 sources)Start: 01-06-2020 End: 93-54-4057joyu 1 tablet by mouth once dailyMagnesium 250 mg Tablet Discontinued 250 MG PO Daily January 06, 2020 12:00am June 08, 2025 2:11pm Start: 34-50-7881zshm 1 tablet by mouth once dailymagnesium 250 MG tablet 1 (one) time each day at the same time Activeondansetron 4 mg oral tablet (2 sources)Serotonin-3 Receptor AntagonistStart: 01-06-2020 End: 18-84-2715Wkjijwbkrgn Hcl 4 mg tablet Discontinued 4 MG PO As Directed as needed for Nausea January 06, 2020 12:00am June 08, 2025 2:11pmpantoprazole 40 mg delayed release oral tablet (20 sources)Proton Pump InhibitorStart: 11-30-2019 End: 24-75-1172oftf 1 tablet by mouth once dailyPantoprazole 40 mg tablet,delayed release (DR/EC) Discontinued 40 MG PO Daily January 06, 2020 12:00am June 08, 2025 2:11pmspironolactone 50 mg oral tablet (19 sources)Aldosterone AntagonistStart: 05-20-2025 End: 13-44-6343bais 1 tablet by mouth once dailySpironolactone (Aldactone) 50 mg tablet Discontinued 50 MG PO Daily May 20, 2025 12:00am June 08, 2025 2:11pmtraZODone hydrochloride 50 mg oral tablet (20 sources)Serotonin Reuptake InhibitorStart: 01-06-2020 End: 81-23-1420izsp 1 tablet by mouth once dailyTrazodone 50 mg tablet Discontinued 50 MG PO Daily January 06, 2020 12:00am May 20, 2025 6:02pm Start: 11-30-2019 End: 90-55-2533rktn 2 tablets by mouth once daily at bedtime as neededTrazodone 50 mg tablet Discontinued 100 MG PO Daily at bedtime as needed May 20, 2025 12:00am June 08, 2025 2:11pmVitamin D3 2000 intl units oral tablet (1 source)Start: 49-32-8250huwl 1 tablet by mouth once dailyVitamin D3 2000 intl units oral tablet 2,000 International_Unit = 1 tab(s), Oral, Daily, Refills(s)0 Start Date: 11/30/19 Status: Ordered Problems Active Problems Problem ClassificationProblemDateDocumented DateEpisodic/ChronicAnxiety disorders (16 sources)Anxiety disorder, unspecified; Translations: [Generalized anxiety disorder]Onset: 74-06-8769OxsowvuBuazhdzmj-deficit, conduct, and disruptive behavior disorders (20 sources)Attention deficit hyperactivity disorder; Translations: [Attention- deficit hyperactivity disorder, unspecified type]Onset: ChronicDiabetes mellitus with complications (8 sources)Type 2 diabetes mellitus with hyperglycemia; 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]Onset: 24-54-3600DnuymkqUyfwisgx mellitus without complication (20 sources)Type 2 diabetes mellitus without complications; Translations: [Diabetes mellitus]Onset: 12-16-2022 Resolved: 821797-35-3451CvwsumlHtzfbv infertility (18 sources)Female infertility; Translations: [Female infertility, unspecified] Onset: 669107-99-8670GkdsqgyHquynomecmeq diseases of female pelvic organs (4 sources)Abscess of vulva; Translations: [ABSCESS OF VULVA]Onset: 11-10-2022 EpisodicJoint disorders and dislocations; trauma-related (1 source)Unspecified internal derangement of right knee; Translations: [UNS INTERNAL DERANGEMENT RIGHT KNEE]Onset: 44-49-3970TtbkfrmUrsx disorders (20 sources)Bipolar disorder; Translations: [Depressive disorder]Onset: 420107-51-3635GiwcfcaZlwxzojjtju deficiencies (20 sources)Vitamin D deficiency, unspecified; Translations: [Vitamin D deficiency]Onset: 93-76-5432LckxoylCrukn acquired deformities (1 source)Acquired deformity of ankle AND/OR rqps25-47-1951MzvfosvaKtwpb aftercare (1 source)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; Translations: [OTH PENITENTIARY 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 THERAPY]Onset: 47-38-7554LsxbzelnSvbry aftercare (1 source)[facility] (current) use of oral hypoglycemic drugs; Translations: [PENITENTIARY USE ORAL 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 DX]Onset: 37-88-4565BvhkusblXugas aftercare (1 source)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; Translations: [PENITENTIARY CURRENT USE OF INSULIN]Onset: 09-96-0185AhzlphxoGqhuw ear and sense organ disorders (17 sources)Conductive hearing loss, bilateral; Translations: [Conductive hearing loss, bilateral]Onset: 466304-76-9409FvitjbaKhdnm ear and sense organ disorders (2 sources)Conductive hearing loss; Translations: [Conductive hearing loss, unspecified]20-25-3867BfueohbSsgst endocrine disorders (1 source)Polycystic ovarian syndrome; Translations: [POLYCYSTIC OVARIAN SYNDROME]Onset: 51-10-1403XyajzyiJgplt endocrine disorders (18 sources)Polycystic ovary syndrome; Translations: [Polycystic ovarian syndrome]Onset: 285640-96-2225KnpvgqtQfken non-traumatic joint disorders (4 sources)Pain in right knee; Translations: [PAIN IN RIGHT KNEE]Onset: 71-79-8199OmvkxlaxYujnj non-traumatic joint disorders (1 source)Shoulder joint pain; Translations: [Pain in unspecified shoulder] Onset: 28-40-3309BlzcyfkwMozaj nutritional; endocrine; and metabolic disorders (1 source)Morbid (severe) obesity due to excess calories; Translations: [MORBID SEVERE OBES D/T EXCESS CASA]Onset: 47-33-2439HkjdyjoYeafv nutritional; endocrine; and metabolic disorders (1 source)Metabolic syndrome; Translations: [METABOLIC SYNDROME]Onset: 01-52-3126JuyfdmtEmems nutritional; endocrine; and metabolic disorders (1 source)Obesity, unspecified; Translations: [OBESITY UNSPECIFIED]Onset: 86-29-0875IkeckxqYhdkg nutritional; endocrine; and metabolic disorders (1 source)Body mass index (BMI) 40.0-44.9, adult; Translations: [BODY MASS INDEX BMI 40.0-44.9 ADULT]Onset: 77-44-5752GrujxdwKqdgy nutritional; endocrine; and metabolic disorders (1 source)Body mass index (BMI) 45.0-49.9, adult; Translations: [BODY MASS INDEX BMI 45.0-49.9 ADULT]Onset: 40-15-9903OaceyhiZrqom nutritional; endocrine; and metabolic disorders (18 sources)Body mass index 40+ - severely obese; Translations: [Body mass index (BMI) 45.0-49.9, adult]Onset: 958178-24-5558XjcwgmuQahjv nutritional; endocrine; and metabolic disorders (19 sources)Severe obesity; Translations: [Class 3 severe obesity due to excess calories with body mass index (BMI) of 40.0 to 44.9 in adult]Onset: 12-25-2023 15-73-0909PziixrdFtkgg nutritional; endocrine; and metabolic disorders (2 sources)Morbid obesity; Translations: [Morbid (severe) obesity due to excess calories]34-57-3967NhagipbGilgk screening for suspected conditions (not mental disorders or infectious disease) (1 source)Cancer cervix screening status; Translations: [Encounter for screening for malignant neoplasm of cervix]25-10-5518SizvfjxzSrytysyv codes; unclassified (1 source)Sleep -03-6150CoyvtntAwqahpfw codes; unclassified (19 sources)Obstructive sleep apnea syndrome; Translations: [Obstructive sleep apnea (adult) (pediatric)]Onset: 321269-28-7606LekwkamFxqrxhva codes; unclassified (2 sources)History of adenoidectomy; Translations: [Acquired absence of other organs]79-44-5565FrqeudgpFoqolektoph; intervertebral disc disorders; other back problems (20 sources)Degeneration of lumbar intervertebral disc; Translations: [DDD (degenerative disc disease), lumbar]Onset: 921030-65-8971XafjbhpIyaibrbse- related disorders (5 sources)Nicotine dependence, cigarettes, uncomplicated; Translations: [Nicotine dependence]Onset: 837068-25-1840GeaknvlFkgbnwjsotse (3 sources)LOW BACK PAIN, UNSPECIFIED; Translations: [LOW BACK PAIN, UNSPECIFIED]Onset: 28-45-5954Njgtdinqezfh (1 source)CONTACT W/AND (SUSP) EXPOS COVID-19; Translations: [CONTACT W/AND (SUSP) EXPOS COVID-19]Onset: 61-74-1066Vhtcqpfeulzi (1 source)COUGH, UNSPECIFIED; Translations: [COUGH, UNSPECIFIED]Onset: 99-04-5567Qaihnjuzgpnw (1 source)You may use alternating doses of ibuprofen (Motrin) 600 mg followed 3 hours later by 2 extra strength Tylenol's, followed 3 hours later by ibuprofen 600 mg. You may continue this repeating schedule for pain management. Past or Other Problems Problem ClassificationProblemDateDocumented DateEpisodic/ChronicAbdominal hernia (20 sources)Umbilical hernia without obstruction or gangrene; Translations: [Umbilical hernia]Onset: 88-45-7960PpgrzmlrLoczufeke pain (4 sources)Unspecified abdominal pain; Translations: [UNSPECIFIED ABDOMINAL PAIN]Onset: 35-52-3317BsqgrvcfTzaaetje foot deformities (18 sources)Osteochondral defect of talus; Translations: [Other specified acquired deformities of musculoskeletal system]Onset: 261930-88-9323 EpisodicFever of unknown origin (4 sources)Fever, unspecified; Translations: [FEVER UNSPECIFIED]Onset: 11-89-1460EhwvpmhyArug disorders (17 sources)Mood disordersOnset: 775777-73-4066Qgaisyq (19 sources)Candidiasis of vagina; Translations: [Candidiasis of vagina]Onset: 281577-13-3111TgdnanxnQjcpdgcyaph chest pain (1 source)Chest pain, unspecified; Translations: [CHEST PAIN UNSPECIFIED]Onset: 56-28-5909EgrzanvlJguqe acquired deformities (19 sources)Acquired deformity of right ankle; Translations: [Unspecified acquired deformity of right lower leg]Onset: 128819-63-9772PsvfjdanUdmiz connective tissue disease (17 sources)Spasm; Translations: [Other muscle spasm]Onset: 237374-67-0560 EpisodicOther connective tissue disease (17 sources)Foreign body granuloma of soft tissue; Translations: [Foreign body granuloma of soft tissue, not elsewhere classified, unspecified ankle and foot] Onset: 01-15-2024 Resolved: 373691-69-9678XedxqfniUdzvn female genital disorders (9 sources)Vaginal discharge; Translations: [Other specified noninflammatory disorders of vagina]Onset: 210957-68-3599AjxvojjiWoyml inflammatory condition of skin (19 sources)Granuloma annulare; Translations: [Granuloma annulare]Onset: 15-33-631984419681-65-3668EjoedvgaJjwxe skin disorders (1 source)Hirsutism; Translations: [HIRSUTISM]Onset: 98-92-0453FvvzyijiCymla skin disorders (2 sources)Eruption; Translations: [Rash and other nonspecific skin eruption] 74-74-1637ScngvqlfJbapu upper respiratory infections (1 source)Acute upper respiratory infection, unspecified; Translations: [ACUTE UP RESPIRATORY INFECTION UNS]Onset: 69-96-9752YqaaaaezAhnwto media and related conditions (20 sources)Other specified disorders of Eustachian tube, left ear; Translations: [Dysfunction of bilateral eustachian tubes]Onset: 05-13-2022 EpisodicResidual codes; unclassified (20 sources)Insomnia; Translations: [Insomnia, unspecified]Onset: 12-25-2023 12-29-5151JoxoipoiQvcqowis codes; unclassified (18 sources)Tobacco user; Translations: [Tobacco use]Onset: EpisodicUnclassified (1 source)LOW BACK PAIN, UNSPECIFIED; Translations: [LOW BACK PAIN, UNSPECIFIED] Onset: 11-15-2022 Results Test NameValueInterpretationReference RangeFacilityBasophils Auto (Bld) [#/Vol] Ordered By: Ariane Wells on 10-37-2645Mgfjfyvwj (Bld) [#/Vol]0.0 10 3/uL0.0-0.[address] [facility] HospitalBasophils/100 WBC Auto (Bld)Ordered By: Ariane Wells on 69-00-0716Ojldimdfe/100 WBC (Bld)0.4 %0.2-2.0[facility] HospitalCapillary blood glucose measurement by glucometer (mass/volume) Ordered By: Viktoria Montilla on 68-34-8451Ewofrrr [Mass/Vol]145 mg/dLNormal [facility] HospitalComment on above:Random Glucose Reference Range is dependent on time and content of last meal. Glucose of more than 200 mg/dL in a nonstressed, ambulatory subject supports the diagnosis of Diabetes Mellitus.Result Comment: Random Glucose Reference Range is dependent on time and content of last meal. Glucose of more than 200 mg/dL in a nonstressed, ambulatory subject supports the diagnosis of Diabetes Mellitus. PERFORMED BY: [facility] [place] [address] PATHOLOGIST FAN RUNNER RALPH SUN M.D.Performed By: #### GLULS #### Point of Care testing ,Eosinophils/100 WBC Auto (Bld)Ordered By: Ariane Wells on 06-21-2025 Eosinophils/100 WBC (Bld)1.3 %0.9-7.0[facility] Erythrocyte distribution width Auto (RBC) [Ratio]Ordered By: Ariane Wells on 28-73-3209Tqsgtcronyf distribution width (RBC) [Ratio]13.0 %11.0-15.0[facility] HospitalGLUCOSE POCT GLUCOMETERSon 38-55-6719Xflqkuq [Mass/Vol] 145 mg/dLNOCO HealthcareComment on above:Random Glucose Reference Range is dependent on time and content of last meal. Glucose of more than 200 mg/dL in a nonstressed, ambulatory subject supports the diagnosis of Diabetes Mellitus. [facility] HealthcareGlobulin Calc (S) [Mass/Vol]Ordered By: Ariane Wells on 81-99-9138Depxgecp (S) [Mass/Vol]4.0 g/dLMercy Health St. Charles Hospital Glomerular filtration rate (GFR) estimation in non- AmericanOrdered By: Ariane Wells on 86-34-4970YIK/1.73 sq M.predicted among non-blacks MDRD (S/P/Bld) [Vol rate/Area]mL/min/{1.73_m2}>=60 mL/min/1.73m 2FKnox Community HospitalHematocrit Auto (Bld) [Volume fraction]Ordered By: Ariane Wells on 76-39-7353Xfjjraeoqk (Bld) [Volume fraction]40.3 %36.0-48.0[facility] HospitalHemoglobin [Mass/volume] in BloodOrdered By: Ariane Wells on 73-86-7129Ikvmnztzui (Bld) [Mass/Vol]13.7 g/dL12.0-16.0[facility] HospitalLon 06-21-2025 Specimen: [id number] Received: 06/21/25 Status: CARLITO Mendoza Num: [id number] Spec Type: Surgical Subm Dr: Viktoria Montilla DO Tissues: A Hernia Sac (HERNIA SAC) Procedures: Serina TUCKER/Bere L2 Age/ Patient Sex Location Account Attending Physician Marilia Vera 35/F 4P [id number] Viktoria Montilla DO SPEC NUM: [id number] RECD: 06/21/25 STATUS: CARLITO MENDOZA NUM: [id number] KATHRIN: 06/21/[address] [facility] DR: Viktoria Montilla DO ENTERED: 06/21/25 [facility] DR: SPEC TYPE: Surgical DEPT: S ENTERED BY: [id number] RECV BY: [id number] ORDERED: HE, Gross/Micro L2 ORDERED: CAITLIN, Gross/Micro L2 Pathological Diagnosis Umbilical hernia, excision: - Benign fibroadipose tissue. Clinical Information Incarcerated umbilical hernia Gross Description Received in formalin labeled with the patient's name, date of , and incarcerated umbilical hernia are three sheets of martines-pink, fibromembranous tissue, 1.7 x 1 x 0.3 cm, 2.3 x 1.3 x 0.3 cm, and 4 x 3 x 0.3 cm. The specimens are smooth and glistening on the surface, while the opposing surfaces are adhesed. Serial sections reveal martines-pink, glistening and uniform cut surfaces. [employer]endor sections are submitted in a single cassette. (1, ss, [id number] A) Microscopic Description Microscopic examination is performed. Specimen: [id number] Received: 06/21/25 Status: CARLITO Mendoza Num: [id number] Spec Type: Surgical Subm Dr: Viktoria Montilla DO Tissues: A Hernia Sac (HERNIA SAC) Procedures: CAITLIN Gross/Micro L2 Patient: Marilia Vera [id number] (Continued) Specimen: [id number] Received: 06/21/25 (Continued) Signed (signature on file) Iraj Shultz MD 06/23/25 1421 Specimen: [id number] Received: 06/21/25 Status: CARLITO Sybil Num: [id number] Spec Type: Surgical Subm Dr: Viktoria Montilla DO Tissues: A Hernia Sac (HERNIA SAC) Procedures: Serina TUCKER/Bere L2 Patient: Marilia Vera [id number] (Continued) Specimen: [id number] Received: 06/21/25 (Continued) CPT Codes 14802 Specimen: [id number] Received: 06/21/25 Status: CARLITO Mendoza Num: [id number] Spec Type: Surgical Subm Dr: Viktoria Montilla DO Tissues: A Hernia Sac (HERNIA SAC) Procedures: Serina TUCKER/Bere L2 Patient: Marilia Vera [id number] (Continued) Signed (signature on file) Iraj Shultz MD 06/23/25 1421Normal [facility] Physician GroupLaboratory - Chemistry and Chemistry - challenge Ordered By: Jennifer Marimar on 06-26-0723Bxraxzawr Ql (U)NegativeNEGATIVEMercy Health St. Charles HospitalGlucose (U) [Mass/Vol]100 mg/dLAbnormalNEGATIVEMercy Health St. Charles HospitalKetones Ql (U)TRACE mg/dLAbnormalNEGATIVEMercy Health St. Charles HospitalpH (U)5.5 [pH]5.0-9.0[facility] Specific gravity (U) [Rel density]>=1.818Axpeluyf1.005-1.025[facility] HospitalUrobilinogen Qn (U)0.2 {Oxana'U}/dL0.2-1.0[facility] HospitalLactate [Moles/Vol]0.6 mmol/L0.4-2.0[facility] HospitalLaboratory - Chemistry and Chemistry - challengeOrdered By: Ariane Wells on 63-15-6467Wfuxclz [Mass/Vol]3.7 g/dL3.4-5.0[facility] ALP [Catalytic activity/Vol]72 U/D08-932FipodxikmMercy Health St. Charles HospitalALT [Catalytic activity/Vol]22 U/B51-80JzizqwvboMercy Health St. Charles HospitalAST [Catalytic activity/Vol]13 U/LWbf66-13IcshbdlvnMercy Health St. Charles HospitalBilirubin [Mass/Vol]0.4 mg/dL0.2-1.0[facility] HospitalCalcium [Mass/Vol]9.1 mg/dL8.5-10.1FKnox Community HospitalChloride [Moles/Vol]103 mmol/L 98-107[facility] HospitalCO2 [Moles/Vol]26.0 mmol/L21.0-32.[address] [facility] HospitalCreatinine [Mass/Vol]0.62 mg/dL0.55-1.[address] [facility] HospitalGFR/1.73 sq M.predicted MDRD (S/P/Bld) [Vol rate/Area]mL/min/{1.73_m2}>=60 mL/min/1.73m 2FKnox Community Hospital Glucose [Mass/Vol]198 mg/hTMnif19-501UwzhgpmbmMercy Health St. Charles HospitalPotassium [Moles/Vol]4.2 mmol/L3.5-5.1FKnox Community HospitalProtein [Mass/Vol] 7.7 g/dL6.4-8.2FSelect Medical OhioHealth Rehabilitation Hospital - Dublinodium [Moles/Vol]138 mmol/L 136-145[facility] HospitalUrea nitrogen [Mass/Vol]17.0 mg/dL 7.0-18.0[facility] HospitalUrea nitrogen/Creatinine [Mass ratio] 27.4 mg/mgMercy Health St. Charles HospitalLaboratory - Hematology and Cell countsOrdered By: Ariane Wells on 04-58-6102Ipkxjlaz granulocytes/100 WBC (Bld) 0.2 %0.0-0.5FKnox Community HospitalLaboratory - Specimen information Ordered By: Jennifer Minaya on 98-01-4382Rtnhzsozce (U)CLEARCLEARFKnox Community HospitalColor (U)YELLOWYELLOWMercy Health St. Charles HospitalLaboratory - UrinalysisOrdered By: Jennifer Minaya on 96-10-7006Ktdsviird esterase Test strip Ql (U)NegativeNEGATIVEMercy Health St. Charles HospitalNitrite Ql (U)Negative NEGATIVEMercy Health St. Charles HospitalProtein Ql (U)NegativeNEG/TRACE [facility] HospitalLeukocytes [#/volume] corrected for nucleated erythrocytes in Blood by Automated counOrdered By: Ariane Wells on 06-21-2025 WBC corrected for nucl RBC Auto (Bld) [#/Vol]9.8 10 3/uL4.0-11.0[facility] HospitalLymphocytes Auto (Bld) [#/Vol]Ordered By: Ariane Wells on 77-69-9561Kdabrljlonr (Bld) [#/Vol]3.0 10 3/uL1.2-3.8[facility] HospitalLymphocytes/100 WBC Auto (Bld)Ordered By: Ariane Wells on 73-32-9876Zggfsckfbae/100 WBC (Bld)30.3 %20.5-60.0[facility] Auto (RBC) [Entitic mass]Ordered By: Ariane Wells on 29-28-1455WCM (RBC) [Entitic mass]27.5 pg26.7-34.0St. [facility] Medical CenterHC Auto (RBC) [Mass/Vol]Ordered By: Ariane Wells on 96-30-4182QSXQ (RBC) [Mass/Vol]34.0 g/dL29.9-35.2FKnox Community HospitalMCV Auto (RBC) [Entitic vol] Ordered By: Ariane Wells on 08-90-6730SXP (RBC) [Entitic vol]80.8 fLLow 81.0-99.0[facility] HospitalMonocytes Auto (Bld) [#/Vol]Ordered By: Ariane Wells on 49-38-9830Efvzmawuz (Bld) [#/Vol]0.6 10 3/uL0.3-0.[address] [facility] HospitalMonocytes/100 WBC Auto (Bld)Ordered By: Ariane Wells on 96-72-2472Elkppsmlo/100 WBC (Bld)6.5 %1.7-12.0[facility] HospitalNeutrophils Auto (Bld) [#/Vol]Ordered By: Ariane Wells on 42-53-8518Rojaetxtexi (Bld) [#/Vol]6.0 10 3/uL1.4-6.5FKnox Community HospitalNeutrophils/100 WBC Auto (Bld)Ordered By: Ariane Wells on 06-21-2025 Neutrophils/100 WBC (Bld)61.3 %43.0-75.0[facility] HospitalNo Panel InformationOrdered By: Jennifer Minaya on 70-69-4217Ypdzm Microscopic ReviewNO [facility] HospitalUrine Occult BloodNegativeNEGATIVEMercy Health St. Charles HospitalHuman Chorionic Gonadotropin, QualNegativeNEGATIVE [facility] HospitalNo Panel InformationOrdered By: Ariane Wells on 48-71-1503Pmxotbbdcau # (Auto)0.1 10 3/uL0.0-0.7Firelands Regional Medical CenterImmature Granulocyte # (Auto)0.02 10 3/uL0.00-0.03[facility] HospitalPlatelet mean volume Auto (Bld) [Entitic vol]Ordered By: Ariane Wells on 40-33-3802Fllyprqm mean volume (Bld) [Entitic vol]11.1 fL9.5-13.[address] Charles HospitalPlatelets Auto (Bld) [#/Vol]Ordered By: Ariane Wells on 09-26-1150Knlqnshff (Bld) [#/Vol]257 10 3/cM583-031UmsiywmzkMercy Health St. Charles HospitalRBC Auto (Bld) [#/Vol]Ordered By: Ariane Wells on 83-82-6664HKV (Bld) [#/Vol]4.99 10 6/uL4.20-5.40T[facility] VA Medical Centererum or plasma albumin/globulin mass ratioOrdered By: Ariane Wells on 81-68-8934Lbayvig/Globulin [Mass ratio]0.9 {ratio}[facility] VA Medical Centererum or plasma anion gap determinationOrdered By: Ariane Wells on 41-58-5649Vinfh gap [Moles/Vol]13.2 mmol/LFKnox Community HospitalHbA1c HPLC (Bld) [Mass fraction]Ordered By: Ariane Wells on 85-23-9053AqM1q (Bld) [Mass fraction]11.6 %[facility] HospitalIGP,APTIMA HPV,AGE GDLNon 30-46-6601WWH GDLN ACOG TESTINGNote.NOMS HealthcareComment on above:TESTS RESULT FLAG UNITS REF RANGE LAB Clinician Provided Cytology Information Source.............Cervix;Endocervix No. of containers..01 ThinPrep Vial Age Algo ACOG Cristine... 30- FLAG LEGEND: L-Low Normal,H-High Normal,LL-Alert Low,HH-Alert High <-Panic Low,>-Panic High,A-Abnormal,AA-Critical Abnormal Performed at: 01 =[address] [address] Francesca Alonzo MD, HPV APTIMANegativeNegativeNOMS HealthcareComment on above:This nucleic acid amplification test detects fourteen high- risk HPV types (16,18,31,33,35,39,45,51,52,56,58,59,66,68) without differentiation. Performed at: =[address] [id number] Mix Chemist: Francesca Alonzo MD, Phone: [phone] Performed at: [address] [id number] Mix Chemist: Francesca Alonzo MD, Phone: [phone] IGP, APTIMA HPV, RFX 16/18,45Note.NOMS HealthcareComment on above:TESTS RESULT FLAG UNITS REF RANGE LAB DIAGNOSIS: 02 NEGATIVE FOR INTRAEPITHELIAL LESION OR MALIGNANCY. Specimen adequacy: 02 Satisfactory for evaluation. No endocervical component is identified. Performed by: Hien Smith, Paleology Teacher (ASC) . 02 Note: Note 02 The [...] High <-Panic Low,>-Panic High,A-Abnormal,AA-Critical Abnormal Performed at: [address] [place] [phone] Francesca Alonzo MD, BROOM-ALONE CERVIX ENDOCERVIX CLINISYNCNOMS HealthcareUPPER RESPIRATORY CULTUREon 96-05-8271GSWMJ RESPIRATORY CULTURE Upper Respiratory Culture Organism: Beta hemolytic Strep group B : NOMS HealthcareUPPER RESPIRATORY CULTURE*ABNORMAL*NOMS HealthcareUPPER RESPIRATORY CULTURELight growthNOMS HealthcareUPPER RESPIRATORY CULTURE Penicillin and ampicillin are drugs of choice forNOMS HealthcareUPPER RESPIRATORY CULTUREtreatment of beta-hemolytic streptococcal infections.NOMS HealthcareUPPER RESPIRATORY CULTURESusceptibility testing of penicillins and other beta-NOMS HealthcareUPPER RESPIRATORY CULTURElactam agents approved by the FDA for treatment ofNOMS HealthcareUPPER RESPIRATORY CULTUREbeta-hemolytic streptococcal infections need not beNOMS HealthcareUPPER RESPIRATORY CULTURE performed routinely because nonsusceptible isolatesNOMS HealthcareUPPER RESPIRATORY CULTUREare extremely rare in any beta-hemolytic streptococcusNOMS HealthcareUPPER RESPIRATORY CULTUREand have not been reported for Streptococcus pyogenesNOMS HealthcareUPPER RESPIRATORY CULTURE(group A). (CLSI)[facility] UPPER RESPIRATORY CULTUREBeta hemolytic Strep group BNOMS HealthcareUPPER RESPIRATORY CULTURE O:BETAGB Isolated NOMS HealthcareUPPER RESPIRATORY CULTUREPerformed at: CB - [facility] RESPIRATORY [id number] [place], [place] [id number] City VA Medical Center RESPIRATORY CULTURELab Director: Codey Sibley PhD, Phone: [phone] [facility] Informationon 18-01-9873Nfzy of biopsy: punch Informed consent: discussed and [...] used: 2 Specimen sent for: H&E Photo [facility] Cervical spine WO contraston 23-26-6593[place] [address] Magnetic Resonance Report Signed Patient: MARILIA VERA MR#: [id number] : 1990 Acct:[id number] Age/Sex: 33 / F ADM Date: 02/24/24 Loc: MRI Attending Dr: Donavan Garcia M.D. Ordering Physician: Donavan Garcia M.D. Date of Service: 02/24/24 Procedure(s): MR cervical spine wo con Accession Number(s): [id number] cc: Ariane Wells DOCKING PILOT; Donavan Garcia M.D. [address] [place] [id number] Patient Name: MARILIA VERA MRN: [id number] date: 1990 Sex: F Assigned Patient Location: MRI Current Patient Location: Accession/Order Number: [id number] Exam Date: 02/24/2024 15:40 Report Date: 02/25/2024 00:07 At the request of: DONAVAN GARCIA Procedure: MR cervical spine wo con [...] POSADA M.D. Signed By: 02/25/248 DD/ TD/TT: Manager Mall:ROXIEadiologjunior, Radiologist, - 02/25/2024 [facility] [place] [id number] Magnetic Resonance Report Signed Patient: MARILIA VERA MR#: [id number] : 1990 Acct:[id number] Age/Sex: 33 / F ADM Date: 02/24/24 Loc: MRI Attending Dr: Donavan Garcia M.D. Ordering Physician: Donavan Garcia M.D. Date of Service: 02/24/24 Procedure(s): MR cervical spine wo con Accession Number(s): [id number] cc: Ariane Wells NP; Donavan Garcia M.D. [facility] [place] [id number] Patient Name: MARILIA VERA MRN: [id number] date: 1990 Sex: F Assigned Patient Location: MRI Current Patient Location: Accession/Order Number: [id number] Exam Date: 02/24/2024 15:40 Report Date: 02/25/2024 00:07 At the request of: DONVAAN GARCIA Procedure: MR cervical spine wo con [...] POSADA M.D. Signed By: 02/25/248 DD/ TD/TT: Manager Mall: DELANEY ColbyRadiology Study observation (narrative)[facility] Cervical spine WO contrastOrdered By: Radiologist Radiology on 77-38-2294[facility] Work Phone: Formson 28-33-0689Kvkkg [id number]#1.00TIFMedina HospitalConsent for Treatmenton 59-37-5411Najctqz for Treatment [id number]#1.00[facility] - YoungstownDischarge Instructionson 11-02-6587Vhyuwpucf Instructions [id number]#1.00TIFSt. Mary's Medical Center, [facility] Clinical Summaryon 62-87-4682ZF Clinical Summary [place] [address] ED Clinical Summary Person Information Name: MARILIA VERA [facility]_Diego Age: 33 Years : 1990 Sex: Female Language: Icelandic PCP: ARIANE WELLS CNP Marital Status: Visit [...] 11/27/2023 15:37:23 11/27/2023 15:37:23 11/27/2023 15:37:23 ADDRESS: [address] [place] [phone] PHYS DOC NOTES: MEDICAL INFORMATION: Prescriptions Given: [facility], [address] [place], [place] [id number], [phone] methocarbamol (Robaxin-750 oral tablet) 2 Tablets By [...] Pain Follow up: With: Address: When: Georgi Hamm[address] [place] [address] Business (1) In 3 days 11/30/2023 DIAGNOSIS: Pain in shoulderNormalFisher Schuyler Medical CenterED Note-Physicianon 11-27-2023 ED Note-PhysicianBasic Information [...] pain, # 20 tab(s), Refills(s) 0, Pharmacy: [facility], 160, cm, 11/27/23 12:59:00 EDT, [...] [place] In 3 days 11/30/2023 EDT [address] [id number] (1) Additional Instructions: Patient Education Shoulder Pain [...] made to ensure accuracy, however, inadvertently computerized business programmer mistakes may be present. Appropriate healthcare PPE [...] R [employer] (Concentrated) Roma (more content not included)...[facility] HospitalComment on above:Result Comment: Electronically Signed By: Steven Cardenas PA-C\.br\Date and Time Signed: 11/26/2414:40 EDT\.br\Electronically Co-Signed By: Riky Le DO\.br\Date and Time Co-Signed: 11/26/2416:17 EDTED Patient Education Noteon 12-87-4529TK Patient Education NoteOrthopedics Shoulder Pain Many things [...] strengthen the arm. General instructions ? Take pmdt-fed-rlzfslo and prescription medicines only as told by [...] provider. Document Revised: 05/03/2022 Document Reviewed: 05/03/2022 Mobile Authentication Patient Education ? 2022 [employer].[facility] ED Patient Summaryon 42-29-5992HY Patient Summary [address] [address] Patient Discharge Instructions Person Information Name: MARILIA VERA Age: 33 Years Arrival Date: 11/27/2023 12:52:48 Discharge Diagnosis: Pain in shoulder Primary Care Physician: ARIANE WELLS CNP Provider Information Primary Provider: Riky Le DO [employer]:Steven Cardenas PA-C The exam and treatment you received in the Emergency Department were for an urgent problem and are not intended as complete care. It is important that you follow up with a doctor, nurse practitioner,or physician?s captain assistant for ongoing care. If your symptoms [...] Instructions: With: Address: When: Georgi Pfeiffer [address] [place] [address] [employer] ([employer] In 3 days 11/30/2023 In the event that this physician does not participate in your insurance network, please consult with your insurance company to find a nearby participating provider. Patient Education Materials: Shoulder Pain A MESSAGE TO ALL PATIENTS REGARDING OPIOIDS PRESCRIPTION OPIOIDS: WHAT YOU NEED TO KNOW Prescription opioids can be used to help relieve ttfhhtzj-gd-zjknns pain and are often prescribed following a [...] your community drug take- back program or [employer] mail-back program, or flush them down the toilet, following guidance from the Food and Drug Administration (www.fda.gov/Drugs/ResourcesForYou). ? Visit www.cdc.gov/drugoverdose to learn about the risks of opioids abuse and overdose. ? If you believe you may be struggling with addiction, tell your health care professionals and ask for guidance or call [facility]ITALA?S National Helpline at 3-981-040-HELP. v Source: Department of a (more content not included)...[facility] HospitalFormson 88-38-6907Rfpfq [id number]#1.00TIFFNoMarymount HospitalXR Shoulder Complete Righton 02-46-2380GA Shoulder Complete RightExam Date/Time: 11/27/2023 13:33 EDT [...] Ka,r in mGy = na DAP = naNormalLake Norman Regional Medical Centerer [facility] AUTO DIFFon 22-64-7353ZJYG #0.1 103/ulNormal0.0-0.1The [facility]. Anne HospitalComment on above:Performed By: #### PREGU #### [facility] [address] [place] [address] Dr. Jaz BarajasBasophils/100 WBC (Bld)0.8 %Normal0.2-2.0[facility] Comment on above:Performed By: #### PREGU #### [facility] [address] [place] [address] Dr. Jaz Mahoney #0.2 103/ulNormal0.0-0.7The [facility] Anne HospitalComment on above: Performed By: #### PREGU #### [facility] [address] [place] [address] Dr. Jaz Alamoosinophils/100 WBC (Bld)2.1 %Normal0.9-7.0The [facility] Comment on above:Performed By: #### PREGU #### [facility] [address] [place] [address] Dr. Jaz Alamorythrocyte distribution width (RBC) [Ratio]13.0 %Hewyma06.0-15.[address] Anne HospitalComment on above:Performed By: #### PREGU #### [facility] [address] [place] [address] Dr. Jaz BarajasHematocrit (Bld) [Volume fraction]41.2 %Bvjrjp07.0-48.0The [facility] Anne HospitalComment on above:Performed By: #### PREGU #### [facility] [address] [place] [address] Dr. Jaz BarajasHemoglobin (Bld) [Mass/Vol]13.7 g/zZDlcuti27.0-16.0The [facility]land HospitalComment on above:Performed By: #### PREGU #### [facility] [address] [place] [address] Dr. Jaz Mak #0.02 10e3/ulNormal0.00-0.03The [facility] Anne HospitalComment on above:Performed By: #### PREGU #### [facility] [address] [place] [address] Dr. Jaz Mak %0.2 %Normal0.0-0.5The [facility] HospitalComment on above: Performed By: #### PREGU #### [facility] [address] [place] [address] Dr. Jaz Osborn #3.3 103/ulNormal1.2-3.8The [facility] Anne HospitalComment on above:Performed By: #### PREGU #### [facility] [address] [place] [address] Dr. Jaz Carrillohocytes/100 WBC (Bld)34.8 %Rwwgzh13.5-60.0The [facility] Anne HospitalComment on above:Performed By: #### PREGU #### [facility] [address] [place] [address] Dr. Jaz BarajasMANUAL DIFF REQNONormalThe [facility] Health St. Anne HospitalComment on above: Performed By: #### PREGU #### [facility] [address] [place] [address] Dr. Jaz Chiang (RBC) [Entitic mass]26.6 pgCritically low26.7-34.0The [facility] Anne HospitalComment on above:Performed By: #### PREGU #### [facility] [address] [place] [address] [address] Jaz DcHC (RBC) [Mass/Vol]33.3 g/gCDcmuag91.9-35.2The [facility] HospitalComment on above:Performed By: #### PREGU #### [facility] [address] [place] [address] Dr. Jaz DcV (RBC) [Entitic vol]79.8 fLCritically low81.0-99.0The [facility] HospitalComment on above:Performed By: #### PREGU #### [facility] [address] [place] [address] Dr. Jaz James #0.7 103/ulNormal0.3-0.8The [facility] Anne HospitalComment on above:Performed By: #### PREGU #### [facility] [address] [place] [address] Dr. Jaz Dejesusocytes/100 WBC (Bld)7.3 %Normal1.7-12.0The [facility] Comment on above:Performed By: #### PREGU #### [facility] [address] [place] [address] Dr. Jaz Paul #5.3 103/ulNormal1.4-6.5The [facility] Anne HospitalComment on above:Performed By: #### PREGU #### [facility] [address] [place] [address] Dr. Jaz Wardutrophils/100 WBC (Bld)54.8 %Utmkkv43.0-75.0The [facility] HospitalComment on above:Performed By: #### PREGU #### [facility] [address] [place] [address] Dr. Jaz Huberlet mean volume (Bld) [Entitic vol]10.7 fLNormal9.5-13.5The [facility] Anne HospitalComment on above:Performed By: #### PREGU #### [facility] [facility] [address] [place] [address] Dr. Jaz BarajasPLT284 103/vvVixxbz481-233Fsw [facility] Anne HospitalComment on above: Performed By: #### PREGU #### [facility] [address] [address] [address] Jaz BarajasRBC5.16 106/ulNormal4.20-5.40[facility] on above:Performed By: #### PREGU #### [facility] [address] [address] [address] Jaz BarajasWBC9.6 103/ulNormal4.0-11.0[facility] HospitalComment on above: Performed By: #### PREGU #### [facility] [address] [place] [address] Dr. Jaz Awad T4on 76-52-1259Rrfw T4 [Mass/Vol]1.10 ng/dLNormal0.76-1.[address] [facility] HospitalComment on above:Performed By: #### PROGLCM #### [facility] [address] [place] [address] Dr. Jaz MckeonID PROFILEon 16-05-5564IVVP-HDL RATIO NORMSMetroHealth Cleveland Heights Medical CenterComment on above:Result Comment: 3.3 - 4.4 LOW RISK 4.4 - 7.1 AVERAGE RISK 7.1 - 11.0 MODERATE RISK >11.0 HIGH RISKPerformed By: #### LIPID, TSH, CMP ####[facility] [address] [address]DrPratibha BarajasCholesterol [Mass/Vol]168 mg/dLNormal<=200The [facility] Hospitalment on above:Performed By: #### LIPID, TSH, CMP ####[facility] [address] [address]Dr. Jaz Barajas Cholesterol in HDL [Mass/Vol]32 mg/dLCritically zqv92-35Ugk [facility] Comment on above:Performed By: #### LIPID, TSH, CMP ####[facility] [address] [address]Dr. Jaz BarajasCholesterol in LDL [Mass/Vol]121.8 mg/dLCincinnati Shriners HospitalComment on above:Performed By: #### LIPID, TSH, CMP ####[facility] [address] [address]Dr. Jaz BarajasCholesterol.total/Cholesterol in HDL [Mass ratio]5.3 {ratio}NormalLancaster Municipal HospitalCommclaren bay region on above:Performed By: #### LIPID, TSH, CMP ####[facility] [address] [address]Dr. Jaz ChangHDL NORMAL> or = 60 mg/dl - LOW CARDIOVASCULAR RISK <40 mg/dl - HIGH CARDIOVASCULAR RISKCincinnati Shriners HospitalComment on above:Performed By: #### LIPID, TSH, CMP ####[facility] [address] [address]Dr. Jaz ChangLDL CALC NORMALSEE BELOWCincinnati Shriners HospitalComment on above:Result Comment: <100 mg/dl OPTIMAL 100 - 129 mg/dl NEAR OR ABOVE OPTIMAL 130 - 159 mg/dl BORDERLINE HIGH 160 - 189 mg/dl HIGH >190 mg/dl VERY HIGHPerformed By: #### LIPID, TSH, CMP ####[facility] [address] [address]Dr. Jaz BarajasTriglyceride [Mass/Vol]71 mg/dLNormal<=150L[facility] Municipal HospitalCommclaren bay region on above:Performed By: #### LIPID, TSH, CMP ####[facility] [address] [address]Dr. Jaz BarajasVLDL CALC14.2 mg/dLNoSouthview Medical CenterCommclaren bay region on above:Performed By: #### LIPID, TSH, CMP ####[facility] [address] [address]DrPratibha BarajasMICROALBUMIN, RAND URon 68-00-4416vMTP<1.3Normal<=30.0 [facility] HospitalCommclaren bay region on above:Performed By: #### PREGU #### [facility] [address] [address] [address] Jaz BarajasPROF 14(COMP METB)on 49-90-5450Wrpmxyo [Mass/Vol]3.7 g/dLNormal 3.4-5.0The [facility] HospitalComment on above:Performed By: #### LIPID, TSH, CMP ####[facility] [address] [address]Dr. Yilan ChangAlbumin/Globulin [Mass ratio]0.8 {ratio}NormalThe [facility] Comment on above:Performed By: #### LIPID, TSH, CMP ####[facility] [address]ip[address] [address]Dr. Yilan ChangALP [Catalytic activity/Vol]90 U/TMsjbjy62-657Rrm [facility] HospitalComment on above:Performed By: #### LIPID, TSH, CMP ####[facility] [address]pl[address] [address]Dr. Yilan ChangALT [Catalytic activity/Vol]106 U/L Critically ktom10-07Tsq [facility] HospitalComment on above:Performed By: #### LIPID, TSH, CMP ####[facility] [address] [address]Dr. Yilan ChangAnion gap [Moles/Vol]12.5 mmol/LNormalThe [facility] HospitalComment on above:Performed By: #### LIPID, TSH, CMP ####[facility] [address]xpigusq[address] [address]Dr. Yilan ChangAST [Catalytic activity/Vol]43 U/LCritically jvhs27-03Cxq [facility] HospitalComment on above:Performed By: #### LIPID, TSH, CMP ####[facility] [address]reedjb[address] [address]Dr. Yilan ChangBilirubin [Mass/Vol]0.4 mg/dL Normal0.2-1.0The [facility] HospitalComment on above:Performed By: #### LIPID, TSH, CMP ####[facility] [address]qryldt[address] [place], [place] [address]Dr. Yilan ChangCalcium [Mass/Vol]9.0 mg/dLNormal8.5-10.1The [facility] HospitalComment on above:Performed By: #### LIPID, TSH, CMP ####[facility] [address]rm[address] [address]Dr. Yilan Barajas Chloride [Moles/Vol]104 mmol/KTlptaq08-910Ope [facility] HospitalComment on above: Performed By: #### LIPID, TSH, CMP ####[facility] Xsrrbjkqax[address] [place], [place] [address]Dr. Yilan ChangCO2 [Moles/Vol]25.8 mmol/LNormal 21.0-32.0The [facility] HospitalComment on above:Performed By: #### LIPID, TSH, CMP ####[facility] Keskzledqi[address] [place], [place] [address]Dr. Yilan ChangCreatinine [Mass/Vol]0.76 mg/dLNormal0.55-1.02The [facility] Comment on above:Performed By: #### LIPID, TSH, CMP ####[facility] Cgeimzzvkx[address] [place], [place] [address]Dr. Yilan ChangEGFR-AF STATELESS>60Normal>=60The [facility] Hospitalment on above:Performed By: #### LIPID, TSH, CMP ####[facility] Llxhfmkaee[address] [place], [place] [address]Dr. Yilan ChangEGFR-NON AF STATELESS>60Normal>=60The [facility] Comment on above:Performed By: #### LIPID, TSH, CMP ####[facility] Ajwsujnykc[address] [place], [place] [address]Dr. Yilan ChangGlobulin (S) [Mass/Vol]4.4 g/dLNormalThe [facility] HospitalComment on above:Performed By: #### LIPID, TSH, CMP ####[facility] Vewwssdmtt[address] [place], [place] [address]Dr. Yilan ChangGlucose [Mass/Vol]228 mg/dLCritically cqhg84-753Ooa [facility] on above:Performed By: #### LIPID, TSH, CMP ####[facility] Krtgizxhmc[address] [place], [place] [address]Dr. Yilan ChangPotassium [Moles/Vol]4.3 mmol/LNormal3.5-5.1The [facility] Comment on above:Performed By: #### LIPID, TSH, CMP ####[facility] [address]jbsp[address] [address]Dr. Yilan ChangProtein [Mass/Vol]8.1 g/dLNormal6.4-8.2The [facility] HospitalComment on above:Performed By: #### LIPID, TSH, CMP ####[facility] Wcfwmtlnwb[address] [place], [place] [address]Dr. Yilan ChangSodium [Moles/Vol]138 mmol/LNormal 136-145The [facility] HospitalComment on above:Performed By: #### LIPID, TSH, CMP ####[facility] Sdxoullioy[address] [place], [place] [address]Dr. Yilan ChangUrea nitrogen [Mass/Vol]21.0 mg/dLCritically high7.0-18.0The [facility] HospitalComment on above:Performed By: #### LIPID, TSH, CMP ####[facility] Yolkxadmke[address] [place], [place] [address]Dr. Yilan ChangUrea nitrogen/Creatinine [Mass ratio]27.6 mg/mgNormalThe [facility] HospitalComment on above:Performed By: #### LIPID, TSH, CMP ####[facility] Qwyafjhjuj[address] [place], [place] [address]Dr. Yilan ChangTSHon 52-29-2931ENP8.602 uIU/mLNormal0.358-3.740The [facility] HospitalComment on above:Performed By: #### LIPID, TSH, CMP ####[facility] Vogukbeduh[address] [place], [place] [address]Dr. Yilan ChangUA RANDOM W/MICROSCOPICon 55-43-3147ZAQUGZXCJQOX SEEN NormalNONE SEENThe [facility] HospitalComment on above:Performed By: #### UAMIC ####[facility] Iyoarcfdla[address] [place], [place] [address]Dr. Yilan ChangBilirubin Ql (U)NegativeNormalNEGATIVEThe [facility] HospitalComment on above:Performed By: #### UAMIC ####[facility] [address]af[address] [address]Dr. Yilan ChangCASTNONE SEENNormalNONE SEENThe [facility] HospitalComment on above:Performed By: #### UAMIC ####[facility] Ygztwlsywm[address] [place], [place] [address]Dr. Yilan ChangClarity (U) CLEARNormalCLEARThe [facility] HospitalComment on above:Performed By: #### UAMIC ####[facility] Kakcidwtkf[address] [place], [place] [address]Dr. Yilan ChangColor (U)LT. YELLOWNormalYELLOWLancaster Municipal HospitalComment on above: Performed By: #### UAMIC ####[facility] Dylsnoigqn[address] [place], [place] [address]Dr. Yilan ChangCrystals LM Nom (Urine sed)NONE SEEN NormalNONE SEENLancaster Municipal HospitalComment on above:Performed By: #### UAMIC ####[facility] Jbchzakviy[address] [place], [place] [address]Dr. Yilan ChangEpithelial cells LM Ql (Urine sed)RARENormalNONE SEEN /RAREThe [facility] HospitalComment on above:Performed By: #### UAMIC ####[facility] Nvbhwnnnnw[address] [place], [place] [address]Dr. Yilan ChangGlucose Ql (U) >1000AbnormalNEGATIVELancaster Municipal HospitalComment on above:Performed By: #### UAMIC ####[facility] Tiwwamlbey[address] [place], [place] [address]Dr. Yilan ChangHemoglobin Ql (U)NegativeNormalNEGATIVEPeoples Hospital on above:Performed By: #### UAMIC ####[facility] Zoofqljqhm[address] [place], [place] [address]Dr. Yilan ChangKetones Ql (U)NegativeNormal NEGATIVELancaster Municipal HospitalComment on above:Performed By: #### UAMIC ####[facility] Rhsgxqwohx194[address] [place], [place] [address]Dr. Yilan ChangLEUKOCYTESNegativeNormalNEGATIVEParkview Health Bryan Hospitalue HospitalComment on above:Performed By: #### UAMIC ####[facility] Uetfruohix[address] [place], [place] [address]Dr. Yilan ChangMUCOUSNONE SEENNormalNONE SEENLancaster Municipal HospitalComment on above:Performed By: #### UAMIC ####[facility] Dawxlshpox[address] [place], [place] [address]Dr. Yilan ChangNitrite Ql (U) NegativeNormalNEGATIVEThe [facility] HospitalComment on above:Performed By: #### UAMIC ####[facility] Utqlvzdgur9[address] [place], [place] [address]Dr. Hannahlan ChangpH (U)6.0 [pH]Normal5-9The [facility] HospitalComment on above:Performed By: #### UAMIC ####[facility] Wmtunhcoyq[address] [place], [place] [address]Dr. Jaz ChangRBCNONE SEENAbnormal0-2The [facility] HospitalComment on above:Performed By: #### UAMIC ####[facility] Gaafpintit[address] [place], [place] [address]Dr. Yilan ChangSPEC GRAVITY 1.946Edcziy2.005-<=1.025The [facility] HospitalComment on above:Performed By: #### UAMIC ####[facility] [address]vjtsrvq[address] [place], [place] [address]Dr. Yilan ChangUA PROTEINNegativeNormalNEGATIVE/ TRACEThe [facility] Comment on above:Performed By: #### UAMIC ####[facility] Qwectpwgdt[address] [place], [place] [address]Dr. Yilan ChangUrobilinogen Qn (U)0.2 {Oxana'U}/dLNormal0.2 - 1.0The [facility] HospitalComment on above:Performed By: #### UAMIC ####[facility] Bmlokkskwj[address] [place], [place] [address]Dr. Yilan ChangWBC0-2AbnormalNONE SEENThe [facility] HospitalComment on above:Performed By: #### UAMIC ####[facility] [address]dam[address] [address]Dr. Jaz BarajasVITAMIN D 25 OHon 64-07-1846ZZP D 25-OH 30.9 ng/mLNormalLancaster Municipal HospitalComment on above:Performed By: #### PROGLCM #### [facility] [address] [place] [address] Dr. Jaz Baxter RANGESSEE BELOWCincinnati Shriners HospitalComment on above: Result Comment: <20 ng/mL Vit D deficient 20 - <30 ng/mL Vit D insufficient 30 - 100 ng/mL Vit D sufficient >100 ng/mL Potential ToxicityPerformed By: #### PROGLCM #### [facility] [address] [place] [address] Dr. Jaz Najera AUTO DIFFon 84-78-7311HXSX #0.1 103/ulNormal0.0-0.1The [facility] HospitalComment on above:Performed By: #### PROGLCM #### [facility] [address] [place] [address] Dr. Jaz Saunderssophils/100 WBC (Bld)0.6 %Normal0.2-2.0[facility] Comment on above:Performed By: #### PROGLCM #### [facility] [address] [place] [address] Dr. Jaz Mahoney #0.2 103/ulNormal0.0-0.7The [facility] HospitalComment on above: Performed By: #### PROGLCM #### [facility] [address] [place] [address] Dr. Jaz Alamoosinophils/100 WBC (Bld)2.0 %Normal0.9-7.0The [facility] Comment on above:Performed By: #### PROGLCM #### [facility] [address] [place] [address] Dr. Jaz Alamorythrocyte distribution width (RBC) [Ratio]13.3 %Keeirz87.0-15.[address] [facility] HospitalComment on above:Performed By: #### PROGLCM #### [facility] [address] [address] [address] Jaz BarajasHematocrit (Bld) [Volume fraction]40.4 %Okjnaz11.0-48.0The [facility] HospitalComment on above:Performed By: #### PROGLCM #### [facility] [address] [place] [address] Dr. Jaz BarajasHemoglobin (Bld) [Mass/Vol]13.5 g/tUDkrzci17.0-16.0The [facility] HospitalComment on above:Performed By: #### PROGLCM #### [facility] [address] [place] [address] Dr. Jaz Mak #0.03 10e3/ulNormal0.00-0.03The [facility] HospitalComment on above:Performed By: #### PROGLCM #### [facility] [address] [place] [address] Dr. Jaz Mak %0.3 %Normal0.0-0.5The [facility] HospitalComment on above: Performed By: #### PROGLCM #### [facility] [address] [place] [address] Dr. Jaz Osborn #3.3 103/ulNormal1.2-3.8The [facility] HospitalComment on above:Performed By: #### PROGLCM #### [facility] [address] [place] [address] Dr. Jaz Carrillohocytes/100 WBC (Bld)30.7 %Xbcqgz36.5-60.0The [facility] HospitalComment on above:Performed By: #### PROGLCM #### [facility] [address] [place] [address] Dr. Jaz ValverdeUAL DIFF REQNONormalThe [facility] HospitalComment on above: Performed By: #### PROGLCM #### [facility] [address] [place] [address] Dr. Jaz Chiang (RBC) [Entitic mass]26.6 pgCritically low26.7-34.0The [facility] HospitalComment on above:Performed By: #### PROGLCM #### [facility] [address] [place] [address] Dr. Jaz Dc (RBC) [Mass/Vol]33.4 g/uRGiausp68.9-35.2The [facility] HospitalComment on above:Performed By: #### PROGLCM #### [facility] [address] [place] [address] Dr. Jaz Dc (RBC) [Entitic vol]79.7 fLCritically low81.0-99.0The [facility] HospitalComment on above:Performed By: #### PROGLCM #### [facility] [address] [place] [address] Dr. Jaz James #0.8 103/ulNormal0.3-0.8The [facility] HospitalComment on above:Performed By: #### PROGLCM #### [facility] [address] [place] [address] Dr. Jaz Dejesusocytes/100 WBC (Bld)7.4 %Normal1.7-12.0The [facility] Comment on above:Performed By: #### PROGLCM #### [facility] [address] [place] [address] Dr. Jaz Paul #6.3 103/ulNormal1.4-6.5The [facility] HospitalComment on above:Performed By: #### PROGLCM #### [facility] [address] [place] [address] Dr. Jaz Wardutrophils/100 WBC (Bld)59.0 %Pzjjux35.0-75.0The [facility] HospitalComment on above:Performed By: #### PROGLCM #### [facility] [address] [place] [address] Dr. Jaz Clark mean volume (Bld) [Entitic vol]10.7 fLNormal9.5-13.5The [facility] HospitalComment on above:Performed By: #### PROGLCM #### [facility] [address] [place] [address] Dr. Jaz BarajasPLT326 103/arCtxzii158-790Kfy [facility] HospitalComment on above: Performed By: #### PROGLCM #### [facility] [address] [place] [address] Dr. Jaz BarajasRBC5.07 106/ulNormal4.20-5.40The [facility] HospitalComment on above:Performed By: #### PROGLCM #### [facility] [address] [place] [address] Dr. Jaz BarajasWBC10.7 103/ulNormal4.0-11.0The [facility] HospitalComment on above:Performed By: #### PROGLCM #### [facility] [address] [place] [address] Dr. Jaz BarajasCT ABD/PELV W CONon 55-77-1634DD ABD/PELV W CONEXAMINATION: CT ABD/PELV W CON [...] Electronically authenticated by: GERALDINE LAZAR Date: 2022-11-15 09:13[facility] URINE PROFILEon 10-41-6400Vuroqhrcp Ql (U)NegativeNormal NEGATIVELancaster Municipal HospitalComment on above:Performed By: #### PROGLCM #### [facility] [address] [address] [address] Jaz Ospina (U)CLEARNormalCLEARLancaster Municipal HospitalComment on above: Performed By: #### PROGLCM #### [facility] [address] [address] [address] Jaz Schwartz ()LT. YELLOWNormalYELLOWLancaster Municipal HospitalComment on above:Performed By: #### PROGLCM #### [facility] [address] [address] [address] Jaz Larsen micrscopic examination will be performed if indicated. NormalLancaster Municipal HospitalComment on above:Performed By: #### PROGLCM #### [facility] [address] [address] [address] Jaz BarajasGlucose Ql (U)1000 mg/dlAbnormalNEGSelect Medical Specialty Hospital [facility] [place] Comment on above:Performed By: #### PROGLCM #### [facility] [address] [address] [address] Jaz BarajasHemoglobin Ql (U)NegativeNormalNEGSelect Medical Specialty Hospital - [place] Comment on above:Performed By: #### PROGLCM #### [facility] [address] [address] [address] Jaz BarajasKetones Ql (U)NegativeNormalNEGATIVELancaster Municipal HospitalComment on above:Performed By: #### PROGLCM #### [facility] [address] [address] [address] Jaz BarajasLEUKOCYTESNegativeNormalNEGATIVELancaster Municipal HospitalComment on above:Performed By: #### PROGLCM #### [facility] [address] [address] [address] Jaz Reina Ql (U)NegativeNormalNEGATIVEThe [facility] HospitalComment on above:Performed By: #### PROGLCM #### [facility] [address] [place] [address] Dr. Jaz BarajaspH (U)6.0 [pH]Normal5-9The [facility] HospitalComment on above: Performed By: #### PROGLCM #### [facility] [address] [place] [address] Dr. Jaz BarajasSPEC GRAVITY1.467Obnlqi4.005-<=1.025The [facility] HospitalComment on above:Performed By: #### PROGLCM #### [facility] [address] [place] [address] Dr. Jaz Moura PROTEINNegativeNormalNEGATIVE/ TRACEThe [facility] Comment on above:Performed By: #### PROGLCM #### [facility] [address] [place] [address] Dr. Jaz Prakash MICRO INDNOT INDICATEDNoSouthview Medical CenterComment on above:Performed By: #### PROGLCM #### [facility] [address] [place] [address] Dr. Jaz Tannerbilinogen Qn (U)0.2 {Oxana'U}/dLNormal0.2 - 1.0The [facility] HospitalComment on above:Performed By: #### PROGLCM #### [facility] [address] [place] [address] Dr. Jaz BarajasLIPASEon 67-18-0477Myomtr [Catalytic activity/Vol]73.0 U/LNormal 73.0-393.0The [facility] HospitalComment on above:Performed By: #### PREGU #### [facility] [address] [place] [address] Dr. Jaz BarajasPREGNANCY URon 09-42-3859ENZZKBYVR, QUALNegativeNormalNEGATIVELancaster Municipal HospitalComment on above:Performed By: #### ERUR, PREGU ####[facility] [address] [address]Dr. Jaz BarajasPROF 14(COMP METB)on 20-71-7433Gyngerj [Mass/Vol]3.6 g/dLNormal3.4-5.0The [facility] HospitalComment on above:Performed By: #### PREGU #### [facility] [address] [address] [address] Jaz BarajasAlbumin/Globulin [Mass ratio]0.9 {ratio}NormalThe [facility] HospitalComment on above:Performed By: #### PREGU #### [facility] [address] [address] [address] Jaz BeebeP [Catalytic activity/Vol]98 U/FMysuhi18-431Axg [facility] HospitalComment on above:Performed By: #### PREGU #### [facility] [address] [address] [address] Jaz BeebeT [Catalytic activity/Vol]138 U/LCritically imvn69-80Sya [facility] HospitalComment on above:Performed By: #### PREGU #### [facility] [address] [address] [address] Jaz Rodriguez gap [Moles/Vol]13.4 mmol/LNormalThe [facility] Comment on above:Performed By: #### PREGU #### [facility] [address] [address] [address] Jaz BarajasAST [Catalytic activity/Vol]61 U/LCritically llry60-86Pta [facility] HospitalComment on above:Performed By: #### PREGU #### [facility] [address] [address] [address] Jaz BarajasBilirubin [Mass/Vol]0.2 mg/dLNormal0.2-1.0The [facility] Comment on above:Performed By: #### PREGU #### [facility] [address] [address] [address] Jaz BarajasCalcium [Mass/Vol]9.4 mg/dLNormal8.5-10.1The [facility] Comment on above:Performed By: #### PREGU #### [facility] [address] [address] [address] Jaz BarajasChloride [Moles/Vol]104 mmol/CZklnwx86-389Nqp [facility] Comment on above:Performed By: #### PREGU #### [facility] [address] [address] [address] Jaz BarajasCO2 [Moles/Vol]24.7 mmol/AIxvpwm94.0-32.0The [facility] Comment on above:Performed By: #### PREGU #### [facility] [address] [address] [address] Jaz BarajasCreatinine [Mass/Vol]0.69 mg/dLNormal0.55-1.02The [facility] HospitalComment on above:Performed By: #### PREGU #### [facility] [address] [address] [address] Sebastian ChangEGFR-AF STATELESS>60Normal>=60The [facility] HospitalComment on above:Performed By: #### PREGU #### [facility] [address] [address] [address] Jaz AlamoGFR-NON AF STATELESS>60Normal>=60The [facility] HospitalComment on above:Performed By: #### PREGU #### [facility] [address] [address] [address] Jaz BarajasGlobulin (S) [Mass/Vol]4.2 g/dLNormalThe [facility] HospitalComment on above:Performed By: #### PREGU #### [facility] [address] [address] [address] Jaz BarajasGlucose [Mass/Vol]339 mg/dLCritically pkgn35-778Bes [facility] HospitalComment on above:Performed By: #### PREGU #### [facility] [address] [address] Dr. Jaz BarajasPotassium [Moles/Vol]4.1 mmol/LNormal3.5-5.1The [facility] Comment on above:Performed By: #### PREGU #### [facility] [address] [address] [address] Jaz BarajasProtein [Mass/Vol]7.8 g/dLNormal6.4-8.2The [facility] Comment on above:Performed By: #### PREGU #### [facility] [address] [place], [place] [address] Dr. Jaz BarajasSodium [Moles/Vol]138 mmol/CUqlygt523-944Srh [facility] Comment on above:Performed By: #### PREGU #### [facility] [address] [address] [address] Jaz BarajasUrea nitrogen [Mass/Vol]17.0 mg/dLNormal7.0-18.0The [facility] HospitalComment on above:Performed By: #### PREGU #### [facility] [address] [address] [address] Jaz Raza nitrogen/Creatinine [Mass ratio]24.6 mg/mgNormalThe [facility] HospitalComment on above:Performed By: #### PREGU #### [facility] [address] [address] [address] Jaz Meng WOUNDon 40-20-1636XGFTRLM WOUNDCulture Observations: NO GROWTH OF ANAEROBES AT [...] F Tetracycline >=[address] [facility] [address] [facility] HospitalComment on above:Performed By: #### WOUNDCX ####[facility] [address] [address]Dr. Jaz Gibsonvid-19 PCR (CVDTBH)on 16-98-9719RTDT-CoV-2 (COVID-19) RNA REANNA+probe Ql (Unsp spec)Not detectedNormalNOT DETECTEDLancaster Municipal Hospital Comment on above:Result Comment: This test is not yet approved or cleared by the [place] FDA. When there are no FDA-approved or cleared tests available, and other criteria are met, FDA can make tests available under an emergency access mechanism called an Emergency Use Authorization (EUA). The EUA for this test is supported by the [place] [employer] of Health and Human Service's (HHS's) declaration [...] SARS-CoV-2.Performed By: #### PROGLCM #### [facility] [address] [place] [address] Dr. Jaz Guevara AND B AGon 82-54-8414XQJGVZFBSBIMSAvita Health System Ontario HospitalComment on above:Result Comment: Negative for Flu A protein angiten. Infection due to Flu A cannot be ruled out. FluA angiten in the sample may be below the detection limit of the test.Performed By: #### PROGLCM #### [facility] [address] [place] [address] Dr. Jaz BarajasINFLUBNEGHSOPAL [facility] on above: Result Comment: Negative for Flu B protein antigen. Infection due to Flu B cannot be ruled out. FluB antigen in the sample may be below the detection limit of the test.Performed By: #### PROGLCM #### [facility] [address] [place] [address] Dr. Jaz Guevara AGNegativeNormalNEGATIVE SEE COMMENTThe [facility] on above:Performed By: #### PROGLCM #### [facility] [address] [place], [place] [id number] Dr. Jaz BarajasINFLUECecileZA B AGNegativeNormalNEGATIVE SEE COMMENTThe [facility] Hospitalment on above:Performed By: #### PROGLCM #### [facility] [address] [place] [address] Dr. Jaz BarajasINTERNAL CONTROLSWithin Normal LimitsNormalWithin Normal Limits The [facility] Hospitalment on above:Performed By: #### PROGLCM #### [facility] [address] [place] [address] Dr. Jaz BarajasPOINT OF CARE GLUCOSEon 93-56-9706Lhkdjnj [Mass/Vol]310 mg/dL Critically tnqp12-107Gan [facility] HospitalComment on above:Performed By: #### PROGLCM #### [facility] [address] [place] [address] Dr. Jaz BarajasXR CHEST 1 Von 68-49-2443SO CHEST 1 VEXAMINATION: XR CHEST 1 V HISTORY: Cough COMPARISON: 01/09/2022 chest x-ray TECHNIQUE: Portable chest FINDINGS: The lung parenchyma is free of consolidation or infiltrate. No pneumothorax or pleural effusion. The cardiac, mediastinal and hilar contours are normal. The visualized osseous structures exhibit no gross abnormality. IMPRESSION: Normal chest x-ray Electronically authenticated by: JOSE EDUARDO RHODES Date: 2022-08-18 15:33[facility] HospitalPRE HCG QUALon [id number], QUALNegativeNormalNEGATIVE The [facility] HospitalComment on above:Performed By: #### PREG ####[facility] [address] [address]Dr. Jaz ColeC AUTO DIFFon 72-58-9660XWCH #0.1 103/ulNormal0.0-0.1The [facility] HospitalComment on above:Performed By: #### CBC ####[facility] [address] [address]DrAnuja BarajasBasophils/100 WBC (Bld)0.6 %Normal 0.2-2.0The [facility] HospitalComment on above:Performed By: #### CBC ####[facility] [address] [address]Dr.Yilan ChangEO # 0.2 103/ulNormal0.0-0.7The [facility] HospitalComment on above:Performed By: #### CBC ####[facility] Swkwsfhvoi[address] [place], [place] [address]Dr. Yilan ChangEosinophils/100 WBC (Bld)1.5 %Normal0.9-7.0The [facility] Comment on above:Performed By: #### CBC ####[facility] Pmgoskltdj[address] [place], [place] [address]Dr.Yilan ChangErythrocyte distribution width (RBC) [Ratio]12.6 %Tcmxzp42.0-15.0The [facility] HospitalComment on above: Performed By: #### CBC ####[facility] Njeuezwygp[address] [place], [place] [address]Dr.Hannahlan ChangHematocrit (Bld) [Volume fraction]38.7 % Rgalei18.0-48.0The [facility] HospitalComment on above:Performed By: #### CBC ####[facility] Clphpbaiei[address] [place], [place] [address]Dr. Hannahisela ChangHemoglobin (Bld) [Mass/Vol]12.9 g/aMHxzvzl21.0-16.0The [facility] HospitalComment on above:Performed By: #### CBC ####[facility] Jdeakkebny[address] [place], [place] [address]Dr.Yilan ChangIG #0.02 10e3/ulNormal0.00-0.03The [facility] HospitalComment on above:Performed By: #### CBC ####[facility] Ppnhimmegk[address] [place], [place] [address]Dr. Yilan ChangIG %0.2 %Normal0.0-0.5The [facility] HospitalComment on above:Performed By: #### CBC ####[facility] Zykvkwqtnb[address] [place], [place] [address]Dr.Yilan ChangLYMPH #3.5 103/ulNormal1.2-3.8The [facility] Comment on above:Performed By: #### CBC ####[facility] Vjfnqaolay[address] [place], [place] [address]Dr.Jaz BarajasLymphocytes/100 WBC (Bld)34.4 %Hrsgzf56.5-60.0The [facility] HospitalComment on above:Performed By: #### CBC ####[facility] Lrqjobixtq[address] [place], [place] [address]Dr. Jaz BarajasMANUAL DIFF REQNONormalThe [facility] HospitalComment on above: Performed By: #### CBC ####[facility] Dfmyhusmvl[address] [place], [place] [address]Dr.Hannahisela BarajasH (RBC) [Entitic mass]27.2 pgNormal 26.7-34.0The [facility] HospitalComment on above:Performed By: #### CBC ####[facility] Ppsywkmert[address] [place], [place] [address]Dr. Hannahisela BarajasHC (RBC) [Mass/Vol]33.3 g/pTKgyrnm65.9-35.2The [facility] Comment on above:Performed By: #### CBC ####[facility] Iuerymjgri[address] [place], [place] [address]Dr.Hannahisela KarlMCV (RBC) [Entitic vol]81.6 fL Fgituo56.0-99.0The [facility] HospitalComment on above:Performed By: #### CBC ####[facility] Zqpusqvwxh[address] [place], [place] [address]Dr. Hannahisela KarlMONO #0.7 103/ulNormal0.3-0.8The [facility] HospitalComment on above: Performed By: #### CBC ####[facility] Pfmaemtyrv[address] [place], [place] [address]Dr.Jaz BarajasMonocytes/100 WBC (Bld)7.0 %Normal 1.7-12.0The [facility] HospitalComment on above:Performed By: #### CBC ####[facility] Misvlqlekk[address] [place], [place] [address]Dr. Jaz BarajasNEUT #5.7 103/ulNormal1.4-6.5The [facility] HospitalComment on above: Performed By: #### CBC ####[facility] [address] [address]Dr.Jaz BarajasNeutrophils/100 WBC (Bld)56.3 %Normal 43.0-75.0The [facility] HospitalComment on above:Performed By: #### CBC ####[facility] [address] [address]Dr. Jaz BarajasPlatelet mean volume (Bld) [Entitic vol]11.0 fLNormal9.5-13.5The [facility] HospitalComment on above:Performed By: #### CBC ####[facility] Vajpbvopot[address] [place], [place] [address]Dr.Jza BarajasPLT274 103/ul Mvtgfn487-655Dgh [facility] HospitalComment on above:Performed By: #### CBC ####[facility] Lbdgtnzspl[address] [place], [place] [address]Dr. Jaz ChangRBC4.74 106/ulNormal4.20-5.40The [facility] HospitalComment on above: Performed By: #### CBC ####[facility] Upfkiqnygy[address] [place], [place] [address]Dr.Jaz BarajasWBC10.0 103/ulNormal4.0-11.0The [facility] HospitalComment on above:Performed By: #### CBC ####[facility] Lsqoyhgoaz[address] [place], [place] [address]Dr.Jaz BarajasCovid-19 PCR (CVDTBH)on 70-11-7616LPFI-CoV-2 (COVID-19) RNA REANNA+probe Ql (Unsp spec)Not detectedNormalNOT DETECTEDThe [facility] HospitalComment on above:Result Comment: This test is not yet approved or cleared by the [place] FDA. When there are no FDA-approved or cleared tests available, and other criteria are met, FDA can make tests available under an emergency access mechanism called an Emergency Use Authorization (EUA). The EUA for this test is supported by the [place] of Health and Human Service's (HHS's) declaration [...] SARS-CoV-2.Performed By: #### PREGU #### [facility] [address] [place] [address] Dr. Jaz BarajasPROF CHEM 8 (BAS METB)on 95-85-4501Mjoej gap [Moles/Vol]10.1 mmol/LNormalLancaster Municipal HospitalComment on above:Performed By: #### PREGU #### [facility] [address] [place] [address] Dr. Jaz BarajasCalcium [Mass/Vol]9.0 mg/dLNormal8.5-10.1[facility] Comment on above:Performed By: #### PREGU #### [facility] [address] [place] [address] Dr. Jaz BarajasChloride [Moles/Vol]99 mmol/YNqkbfg69-265QqnLancaster Municipal Hospital Comment on above:Performed By: #### PREGU #### [facility] [address] [place] [address] Dr. Jaz BarajasCO2 [Moles/Vol]29.1 mmol/OPabwyo64.0-32.0[facility] Comment on above:Performed By: #### PREGU #### [facility] [address] [place] [address] Dr. Jaz BarajasCreatinine [Mass/Vol]0.80 mg/dLNormal0.55-1.02[facility] HospitalComment on above:Performed By: #### PREGU #### [facility] [address] [place] [address] Dr. Sebastian ChangEGFR-AF STATELESS>60Normal>=60The [facility] HospitalComment on above:Performed By: #### PREGU #### [facility] [address] [place] [address] Dr. Jaz AlamoGFR-NON AF STATELESS>60Normal>=60The [facility] HospitalComment on above:Performed By: #### PREGU #### [facility] [address] [place] [address] Dr. Jaz BarajasGlucose [Mass/Vol]217 mg/dLCritically qfrh62-380Asn [facility] HospitalComment on above:Performed By: #### PREGU #### [facility] [address] [place] [address] Dr. Jaz BarajasPotassium [Moles/Vol]4.2 mmol/LNormal3.5-5.1The [facility] Comment on above:Result Comment: specimen slightly hemolyzed may affect K+ resultPerformed By: #### PREGU #### [facility] [address] [place] [address] Dr. Jaz BarajasSodium [Moles/Vol]134 mmol/LCritically vud730-172NxnLancaster Municipal HospitalComment on above:Performed By: #### PREGU #### [facility] [address] [place] [address] Dr. Jaz BarajasUrea nitrogen [Mass/Vol]11.0 mg/dLNormal7.0-18.0[facility] HospitalComment on above:Performed By: #### PREGU #### [facility] [address] [place] [address] Dr. Jaz BarajasUrea nitrogen/Creatinine [Mass ratio]13.8 mg/mgNormalThe [facility] HospitalComment on above:Performed By: #### PREGU #### [facility] [address] [place] [address] Dr. Jaz BarajasCT ABD/PELV W CONon 13-13-5264TK ABD/PELV W CONEXAMINATION: CT ABD/PELV W CON [...] Electronically authenticated by: JEYSON BLANTON Date: 2022-04-18 12:31[facility] URINE PROFILEon 82-26-6168Qferwpbcb Ql (U)NegativeNormal NEGATIVEMercy Health St. Rita's Medical Centerment on above:Performed By: #### ERUR, PREGU ####[facility] [address] [address]Dr. Hannahlan ChangClarity (U)CLEARNormalCLEARLancaster Municipal HospitalComment on above: Performed By: #### ERUR, PREGU ####[facility] [address] [address]Dr. Jaz ChangColor (U)LT. YELLOWNormalYELLOWMiami Valley Hospital on above:Performed By: #### ERUR, PREGU ####[facility] [address]zdtgpd[address] [place], [place] [address]Dr. Hannahisela RAMIREZAHDA micrscopic examination will be performed if indicated.NormalThe [facility] HospitalComment on above:Performed By: #### ERUR, PREGU ####[facility] Lmrupqyxeg[address] [place], [place] [address]Dr. Yilan ChangGlucose Ql (U) 1000 mg/dlAbnormalNEGATIVEThe [facility] HospitalComment on above:Performed By: #### ERUR, PREGU ####[facility] Aemrjfrvpm[address] [place], [place] [address]Dr. Yilan ChangHemoglobin Ql (U)NegativeNormalNEGATIVEThe [facility] HospitalComment on above:Performed By: #### ERUR, PREGU ####[facility] Ispkkochoi90[address] [place], [place] [address]Dr. Yilan ChangKetones Ql (U) NegativeNormalNEGATIVEThe [facility] HospitalComment on above:Performed By: #### ERUR, PREGU ####[facility] Vtdpyjexit[address] [place], [place] [address]Dr. Yilan ChangLEUKOCYTESNegativeNormalNEGATIVEThe [facility] HospitalComment on above:Performed By: #### ERUR, PREGU ####[facility] Elokxlihbt[address] [place], [place] [address]Dr. Yilan ChangNitrite Ql (U)NegativeNormal NEGATIVESelect Medical [facility] HospitalComment on above:Performed By: #### ERUR, PREGU ####[facility] Sdhfvnclia[address] [place], [place] [address]Dr. Yilan ChangpH (U)6.5 [pH]Normal5-9The [facility] HospitalComment on above: Performed By: #### ERUR, PREGU ####[facility] Iorhucyppf[address] [place], [place] [address]Dr. Yilan ChangSPEC GRAVITY1.938Jkbhao4.005-<=1.025The [facility] HospitalComment on above:Performed By: #### ERUR, PREGU ####[facility] Qibelpyrld[address] [place], [place] [address]Dr. Yilan ChangUA PROTEINNegativeNormalNEGATIVE/ TRACEThe [facility] HospitalComment on above: Performed By: #### ERUR, PREGU ####[facility] [address]ft[address] [address]Dr. Jaz BarajasUR MICRO INDNOT INDICATEDNormMarion HospitalComment on above:Performed By: #### ERUR, PREGU ####[facility] [address]jdz[address] [address]Dr. Jaz Barajas Urobilinogen Qn (U)0.2 {Oxana'U}/dLNormal0.2 - 1.0The [facility] HospitalComment on above:Performed By: #### ERUR, PREGU ####[facility] [address] [address]Dr. Jaz BarajasPREGNANCY URon 04-18-2022 , QUALNegativeNormalNEGATIVEThe [facility] HospitalComment on above: Performed By: #### JAMESR, PREGU ####[facility] [address] [address]Dr. Jaz Barajas17-[place] PROGESTERONE, LC/MSon 04-05-2022 17-[place] Progesterone LCMS43 ng/dLCincinnati Shriners HospitalComment on above: Result Comment: Adult Female Follicular 15 - 70 Luteal 35 - 290Performed By: #### PROGLCM #### [facility] [address] [place] [address] Dr. Jaz BarajasANDROSTENEDINE LC/MSon 20-93-0547Psdkwmmkwuacbdn IJYV621 ng/dL Kmcchg64-812Crp [facility] HospitalComment on above:Result Comment: This test was developed and its performance characteristics determined by [facility]. It has not been cleared or approved by the Food and Drug Administration.Performed By: #### ANDROST #### [facility] [address] [place] [address] Dr. Jaz BarajasTESTOSTERONE, TOTALon 21-92-3424Qfragdtlmamq [Mass/Vol]70 ng/dL Critically high8-60The [facility] HospitalComment on above:Performed By: #### TESTTOT ####[facility] [address] [address]Dr. Yilan ChangPROF CHEM 8 (BAS METB)on 98-78-9119Dforr gap [Moles/Vol]11.5 mmol/LNormalThe [facility] HospitalComment on above:Performed By: #### BMP ####[facility] Juujzqqihl[address] [place], [place] [address]Dr. Yilan ChangCalcium [Mass/Vol]9.1 mg/dLNormal8.5-10.1The [facility] HospitalComment on above:Performed By: #### BMP ####[facility] I[address]flgvnuhq[address] [place], [place] [address]Dr.Yilan ChangChloride [Moles/Vol]103 mmol/LNormal 98-107The [facility] HospitalComment on above:Performed By: #### BMP ####[facility] Catpaqbxov[address] [place], [place] [address]Dr.Yilan ChangCO2 [Moles/Vol]28.0 mmol/EGshkxq48.0-32.0The [facility] HospitalComment on above: Performed By: #### BMP ####[facility] Dvgzthwijn[address] [place], [place] [address]Dr.Yilan ChangCreatinine [Mass/Vol]0.74 mg/dLNormal 0.55-1.02The [facility] HospitalComment on above:Performed By: #### BMP ####[facility] U[address]ipamdtjp[address] [place], [place] [address]Dr. Yilan ChangEGFR-AF STATELESS>60Normal>=60The [facility] HospitalComment on above: Performed By: #### BMP ####[facility] Gcjbheetst[address] [place], [place] [address]Dr.Yilan ChangEGFR-NON AF STATELESS>60Normal>=60The [facility] HospitalComment on above:Performed By: #### BMP ####[facility] Cyxzpxkbxb4[address] [place], [place] [address]Dr.Yilan ChangGlucose [Mass/Vol]197 mg/dLCritically hrqd32-594Zjg [facility] HospitalComment on above: Performed By: #### BMP ####[facility] [address] [id number].Jaz BarajasPotassium [Moles/Vol]4.5 mmol/LNormal 3.5-5.1The [facility] HospitalCommclaren bay region on above:Performed By: #### BMP ####[facility] [address]vyto[address] [address]Dr.Jaz Barajas Sodium [Moles/Vol]138 mmol/HJfcncs226-364Zgp [facility] HospitalComment on above: Performed By: #### BMP ####[facility] [address]oy[address] [address]Dr.Jaz BarajasUrea nitrogen [Mass/Vol]11.0 mg/dLNormal 7.0-18.0The [facility] on above:Performed By: #### BMP ####[facility] [address]qcuaou[address] [address]Dr. Jaz BarajasUrea nitrogen/Creatinine [Mass ratio]14.9 mg/mgNoSouthview Medical CenterCommclaren bay region on above:Performed By: #### BMP ####[facility] [address]wrop[address] [address]Dr.Jaz BarajasXR ABD FLAT_UP on 68-34-7754PS ABD FLAT_UPEXAMINATION: XR ABD FLAT_UP HISTORY: Abdominal pain COMPARISON: CT 01/31/2022 FINDINGS: BOWEL GAS PATTERN: Non-obstructed. FREE AIR: None. CALCIFICATIONS: 3 mm left pelvic calcification BONES: No fracture or visible bone lesion. OTHER: Negative. IMPRESSION: 3 mm left pelvic calcification, a phlebolith is favored Nonobstructive bowel gas pattern Electronically authenticated by: JOSE EDUARDO RIVERS Date: 2022-02-06 17:25NoSouthview Medical CenterCREATININEon 25-86-0966Mleabcyhla [Mass/Vol]0.74 mg/dLNormal 0.55-1.02[facility] on above:Performed By: #### PROGLCM #### [facility] [address] [address] [address] Sebastian ChangEGFR-AF STATELESS>60Normal>=60The [facility] HospitalComment on above:Performed By: #### PROGLCM #### [facility] [address] [address] [address] Jaz AlamoGFR-NON AF STATELESS>60Normal>=60The [facility] HospitalComment on above:Performed By: #### PROGLCM #### [facility] [id number] Jaz BarajasCT ABDOMEN W CONon 09-27-8068YU ABDOMEN W CONEXAMINATION: CT ABDOMEN W CON [...] Electronically authenticated by: JEYSON BLANTON Date: 2022-01-31 18:16NoSouthview Medical CenterACETONE SERUMon 88-64-6201QKUOUQFKbphywnyNaurffFOCTMSXQJym [facility] HospitalComment on above:Performed By: #### ACETON ####[facility] [address]rotgd[address] [address]Dr. Jaz GIVENS BISI ADMITon 60-49-0178SB [Catalytic activity/Vol]58 U/DWtbhio83-578Pki [facility] HospitalComment on above:Performed By: #### PREGU #### [facility] [address] [place] [address] Dr. Jaz Salguero.MB [Mass/Vol]0.64 ng/mLNormal<=3.60The [facility] Comment on above:Performed By: #### PREGU #### [facility] [address] [place] [address] Dr. Jaz BarajasHSTROP5.3 pg/mLNormal4.0-51.3The [facility] HospitalComment on above:Result Comment: CUT-OFF POINTS HAVE BEEN ESTABLISHED BASED ON THE FOURTH UNIVERSAL DEFINITIONS OF MYOCARDIAL INFARCTION. THE UPPER REFERENCE LIMIT (URL) OF TROPONIN, DEFINED THE 99TH PERCENTILE OF cTnI DISTRIBUTION IN A REFERENCE POPULATION, HAS BEEN CONFIRMED THE DECISION THRESHOLD FOR [place] DIAGNOSIS.Performed By: #### PREGU #### [facility] [address] [place] [address] Dr. Jaz BarajasMYO30 ng/mLNormal9-82The [facility] HospitalComment on above: Performed By: #### PREGU #### [facility] [address] [place] [address] Dr. Jaz Najera AUTO DIFFon 28-83-3266VFXL #0.1 103/ulNormal0.0-0.1The [facility] HospitalComment on above:Performed By: #### PREGU #### [facility] [address] [place] [address] Dr. Jaz BarajasBasophils/100 WBC (Bld)0.5 %Normal0.2-2.0[facility] Comment on above:Performed By: #### PREGU #### [facility] [address] [place] [address] Dr. Jaz Mahoney #0.3 103/ulNormal0.0-0.7The [facility] HospitalComment on above: Performed By: #### PREGU #### [facility] [address] [place] [address] Dr. Jaz Alamoosinophils/100 WBC (Bld)2.5 %Normal0.9-7.0The [facility] Comment on above:Performed By: #### PREGU #### [facility] [address] [place] [address] Dr. Jaz Alamorythrocyte distribution width (RBC) [Ratio]12.8 %Yxqkfv14.0-15.[address] [facility] HospitalComment on above:Performed By: #### PREGU #### [facility] [address] [place] [address] Dr. Jaz BarajasHematocrit (Bld) [Volume fraction]41.0 %Iddohz84.0-48.0The [facility] HospitalComment on above:Performed By: #### PREGU #### [facility] [address] [place] [address] Dr. Jaz BarajasHemoglobin (Bld) [Mass/Vol]13.6 g/pRTrqbsh20.0-16.0The [facility] HospitalComment on above:Performed By: #### PREGU #### [facility] [address] [place] [address] Dr. Jaz Mak #0.03 10e3/ulNormal0.00-0.03The [facility] HospitalComment on above:Performed By: #### PREGU #### [facility] [address] [place] [address] Dr. Jaz Mak %0.3 %Normal0.0-0.5The [facility] HospitalComment on above: Performed By: #### PREGU #### [facility] [facility] [address] [place] [address] Dr. Jaz WagnerMPH #2.7 103/ulNormal1.2-3.8The [facility] Anne HospitalComment on above:Performed By: #### PREGU #### [facility] [address] [place] [address] Dr. Jaz Wagnermphocytes/100 WBC (Bld)25.7 %Oqsajy82.5-60.0The [facility] HospitalComment on above:Performed By: #### PREGU #### [facility] [address] [place] [address] Dr. Jaz Rios DIFF REQNONormalThe [facility] St[facility] HospitalComment on above: Performed By: #### PREGU #### [facility] [address] [place] [address] Dr. Jaz Dc (RBC) [Entitic mass]27.7 iaNrcnhj17.7-34.0The [facility] HospitalComment on above:Performed By: #### PREGU #### [facility] [address] [place] [address] Dr. Jaz Dc (RBC) [Mass/Vol]33.2 g/bCSxbmpj80.9-35.2The [facility] HospitalComment on above:Performed By: #### PREGU #### [facility] [address] [place] [address] Dr. Jaz Dc (RBC) [Entitic vol]83.5 oSPhxtpl07.0-99.0The [facility] HospitalComment on above:Performed By: #### PREGU #### [facility] [address] [place] [address] Dr. Jaz James #0.8 103/ulNormal0.3-0.8The [facility] HospitalComment on above:Performed By: #### PREGU #### [facility] [address] [place] [address] Dr. Jaz Dejesusocytes/100 WBC (Bld)7.4 %Normal1.7-12.0[facility] Comment on above:Performed By: #### PREGU #### [facility] [address] [place] [address] Dr. Jaz Paul #6.6 103/ulCritically high1.4-6.5The [facility] Comment on above:Performed By: #### PREGU #### [facility] [address] [place] [address] Dr. Jaz Wardutrophils/100 WBC (Bld)63.6 %Foubfx92.0-75.0The [facility] HospitalComment on above:Performed By: #### PREGU #### [facility] [address] [place] [address] Dr. Jaz Huberlet mean volume (Bld) [Entitic vol]11.5 fLNormal9.5-13.5The [facility] HospitalComment on above:Performed By: #### PREGU #### [facility] [address] [place] [address] Dr. Jaz BarajasPLT227 103/qcIkvukw054-591Pkk [facility] HospitalComment on above: Performed By: #### PREGU #### [facility] [address] [place] [address] Dr. Jaz BarajasRBC4.91 106/ulNormal4.20-5.40The [facility] on above:Performed By: #### PREGU #### [facility] [address] [place] [address] Dr. Jaz BarajasWBC10.4 103/ulNormal4.0-11.0The [facility] on above:Performed By: #### PREGU #### [facility] [address] [place] [address] Dr. Jaz Ponce CHEST WO W CONon 04-19-9810PYJ CHEST WO W CONEXAMINATION: CTA CHEST WO [...] account for patient's symptoms. Electronically authenticated by: JEYSONWHITLEY BLANTON Date: 2022-01-09 09:47[facility] HospitalD-DIMERon 56-33-3796D-DIMER0.56 mg/L FEUCritically high 0.19-0.50[facility] on above:Result Comment: test repeated critical value verifiedPerformed By: #### DDIM, PT, PTT #### [facility] [address] [place] [address] Dr. Jaz Will-DIMER COMMENTSSEE BELOWCoshocton Regional Medical Center on above:Result Comment: Increases in D-Dimer concentration [...] #### DDIM, PT, PTT #### [facility] [address] [place] [address] Dr. Jaz Reed URINE PROFILEon 18-69-1585Eejuwzmik Ql (U)NegativeNormal NEGATIVEMiami Valley Hospital on above:Performed By: #### PROGLCM #### [facility] [address] [place] [address] Dr. Jaz Ospina (U)CLEARNormalCLEARLancaster Municipal HospitalCommclaren bay region on above: Performed By: #### PROGLCM #### [facility] [address] [place] [address] Dr. Jaz Schwartz (U)YELLOWNormalYELLOWMiami Valley Hospital on above: Performed By: #### PROGLCM #### [facility] [address] [place] [address] Dr. Jaz RosarioPIEDAD micrscopic examination will be performed if indicated. NormalLancaster Municipal HospitalComment on above:Performed By: #### PROGLCM #### [facility] [address] [address] [address] Jaz BarajasGlucose Ql (U)500 mg/dlAbnormalNEGSelect Medical Specialty Hospital [facility] Comment on above:Performed By: #### PROGLCM #### [facility] [address] [address] [address] Jaz BarajasHemoglobin Ql (U)NegativeNormalNEGATIVELancaster Municipal Hospital Comment on above:Performed By: #### PROGLCM #### [facility] [address] [address] [address] Jaz BarajasKetones Ql (U)NegativeNormalNEGSelect Medical Specialty Hospital - YoungstownComment on above:Performed By: #### PROGLCM #### [facility] [address] [place] [address] Dr. Jaz BarajasLEUKOCYTESNegativeNormalNEGATIVELancaster Municipal HospitalComment on above:Performed By: #### PROGLCM #### [facility] [address] [place] [address] Dr. Jaz BarajasNitrite Ql (U)NegativeNormalNEGSelect Medical Specialty Hospital - YoungstownComment on above:Performed By: #### PROGLCM #### [facility] [address] [place] [address] Dr. Jaz BarajaspH (U)6.0 [pH]Normal5-9[facility] HospitalComment on above: Performed By: #### PROGLCM #### [facility] [address] [place] [address] Dr. Jaz BarajasSPEC GRAVITY>=1.269Vqbzxfoy3.005-<=1.025[facility] Comment on above:Performed By: #### PROGLCM #### [facility] [address] [place] [address] Dr. Jaz BarajasUA PROTEINNegativeNormalNEGATIVE/ TRACELancaster Municipal Hospital Comment on above:Performed By: #### PROGLCM #### [facility] [address] [place] [address] Dr. Jaz Prakash MICRO INDNOT INDICATEDNormalThe [facility] HospitalComment on above:Performed By: #### PROGLCM #### [facility] [address] [place] [address] Dr. Jaz Tannerbilinogen Qn (U)0.2 {Oxana'U}/dLNormal0.2 - 1.0The [facility] HospitalComment on above:Performed By: #### PROGLCM #### [facility] [address] [place] [address] Dr. Jaz Ventura VENOUS BLOODon 56-03-7128UUI9 XMJXXJ31.2 mmHgCritically low 40.0-52.0The [facility] HospitalComment on above:Performed By: #### PHVEN #### [facility] [address] [place] [address] Dr. Jaz Ventura VENOUS7.995Bdtguz6.330-7.430The [facility] HospitalComment on above:Performed By: #### PHVEN #### [facility] [address] [place] [address] Dr. Jaz BarajasPREGNANCY URon 22-98-6144RCFVPOMBF, QUALNegativeNormalNEGATIVEThe [facility] HospitalCommclaren bay region on above:Performed By: #### PREGU #### [facility] [address] [place] [address] Dr. Jaz BarajasPROF 14(COMP METB)on 25-97-0667Nnjfxvh [Mass/Vol]3.2 g/dL Critically low3.4-5.0The [facility] HospitalComment on above:Performed By: #### PREGU #### [facility] [address] [place] [address] Dr. Jaz BarajasAlbumin/Globulin [Mass ratio]0.8 {ratio}NormalThe [facility] HospitalCommclaren bay region on above:Performed By: #### PREGU #### [facility] [address] [place] [address] Dr. Jaz BeebeP [Catalytic activity/Vol]109 U/DXwcpyg95-832Pii [facility] HospitalComment on above:Performed By: #### PREGU #### [facility] [address] [address] [address] Jaz BeebeT [Catalytic activity/Vol]95 U/LCritically abch52-14Zjb [facility] HospitalComment on above:Performed By: #### PREGU #### [facility] [address] [address] [address] Jaz Mcgovernon gap [Moles/Vol]11.7 mmol/LNormalThe [facility] Comment on above:Performed By: #### PREGU #### [facility] [address] [address] [address] Jaz BarajasAST [Catalytic activity/Vol]44 U/LCritically celd31-13Keo [facility] HospitalComment on above:Performed By: #### PREGU #### [facility] [address] [address] [address] Jaz BarajasBilirubin [Mass/Vol]0.3 mg/dLNormal0.2-1.0[facility] Comment on above:Performed By: #### PREGU #### [facility] [address] [address] [address] Jaz BarajasCalcium [Mass/Vol]8.8 mg/dLNormal8.5-10.1The [facility] Comment on above:Performed By: #### PREGU #### [facility] [address] [address] [address] Jaz BarajasChloride [Moles/Vol]102 mmol/NJxbcot84-804Txm [facility] Comment on above:Performed By: #### PREGU #### [facility] [address] [address] [address] Jaz BarajasCO2 [Moles/Vol]25.3 mmol/DFzcpre88.0-32.0The [facility] Comment on above:Performed By: #### PREGU #### [facility] [address] [address] [address] Jaz BarajasCreatinine [Mass/Vol]0.86 mg/dLNormal0.55-1.02The [facility] HospitalComment on above:Performed By: #### PREGU #### [facility] [address] [address] [address] Jaz AlamoGFR-AF STATELESS>60Normal>=60The [facility] HospitalComment on above:Performed By: #### PREGU #### [facility] [address] [address] [address] Jaz AlamoGFR-NON AF STATELESS>60Normal>=60The [facility] HospitalComment on above:Performed By: #### PREGU #### [facility] [address] [address] [address] Jaz BarajasGlobulin (S) [Mass/Vol]3.9 g/dLNormalThe [facility] HospitalComment on above:Performed By: #### PREGU #### [facility] [address] [address] [address] Jaz BarajasGlucose [Mass/Vol]230 mg/dLCritically wemi35-214Uar [facility] on above:Performed By: #### PREGU #### [facility] [address] [address] [address] Jaz BarajasPotassium [Moles/Vol]4.0 mmol/LNormal3.5-5.1The [facility] Comment on above:Performed By: #### PREGU #### [facility] [address] [address] [address] Jaz BarajasProtein [Mass/Vol]7.1 g/dLNormal6.4-8.2The [facility] Comment on above:Performed By: #### PREGU #### [facility] [address] [address] [address] Jaz BarajasSodium [Moles/Vol]135 mmol/LCritically idv540-748Vdx [facility] on above:Performed By: #### PREGU #### [facility] [address] [address] [address] Jaz BarajasUrea nitrogen [Mass/Vol]15.0 mg/dLNormal7.0-18.0The Karl HospitalComment on above:Performed By: #### PREGU #### [facility] [address] [place] [address] Dr. Jaz Raza nitrogen/Creatinine [Mass ratio]17.4 mg/mgNoSouthview Medical CenterComment on above:Performed By: #### PREGU #### [facility] [address] [place] [address] Dr. Jaz BarajasPROTIMEon 14-79-5379FJS Coag (PPP) [Relative time]0.96 {INR} NormalThe [facility] HospitalComment on above:Performed By: #### DDIM, PT, PTT #### [facility] [address] [place] [address] Dr. Jaz Macdonald GUIDELINESSEE BELOWCincinnati Shriners HospitalComment on above:Result Comment: DESIRED INR: 2.0 - 3.0 CONDITIONS NOT LISTED BELOW 2.5 - 3.5 FOR PROSTHETIC HEART VALVE REPLACEMENT 2.5 - 3.5 RECURRENT THROMBOSIS Performed By: #### DDIM, PT, PTT #### [facility] [address] [place] [address] Dr. Jaz BarajasPT Coag (PPP) [Time]10.4 sNormal9.0-11.6The [facility] Comment on above:Performed By: #### DDIM, PT, PTT #### [facility] [address] [place] [address] Dr. Jaz Muller 44-49-0979wRAZ Coag (Bld) [Time]28.8 wOouzeu63.3-36.2The [facility] HospitalComment on above:Performed By: #### DDIM, PT, PTT #### [facility] [address] [place] [address] Dr. Jaz French, HIGH SENSITIVITYon 00-74-4854ZTYELT3.5 pg/mLNormal 4.0-51.3The [facility] on above:Result Comment: CUT-OFF POINTS HAVE BEEN ESTABLISHED BASED ON THE FOURTH UNIVERSAL DEFINITIONS OF MYOCARDIAL INFARCTION. THE UPPER REFERENCE LIMIT (URL) OF TROPONIN, DEFINED THE 99TH PERCENTILE OF cTnI DISTRIBUTION IN A REFERENCE POPULATION, HAS BEEN CONFIRMED THE DECISION THRESHOLD FOR [place] DIAGNOSIS.Performed By: #### PROGLCM #### [facility] [address] [place] [address] Dr. Jaz SawantHocecile 74-12-9423PDA2.769 uIU/mLNormal0.358-3.740[facility] HospitalComment on above:Performed By: #### PREGU #### [facility] [address] [place] [address] Dr. Jaz Young [facility] BELOWCincinnati Shriners HospitalComment on above: Result Comment: <0.34 UIU/ml HYPERTHYROID 0.34-5.60 UIU/ml EUTHYROID >5.60 UIU/ml HYPOTHYROIDPerformed By: #### PREGU #### [facility] [address] [place] [address] Dr. Jaz BarajasXR CHEST 1 Von 61-70-0406JA CHEST 1 VEXAMINATION: XR CHEST 1 V [...] authenticated by: JOSE EDUARDO RIVERS Date: 2022-01-09 08:29[facility] Vital Signs Date TimeVital SignValuePerforming DowpiblzzEoazwgbc21-75-8431 13:28-0400Body skmixb473 cmFredric [employer] DO Work Phone: [facility] Rgystmadnj44-59-9173 13:28-040Body mass index (BMI) [Ratio]43.58 kg/k4Lyikxvc [employer] DO Work Phone: [facility] Ihmlsbjpje85-39-6770 13:28-0400Body pbnivj540.58 kgFredric [employer] DO Work Phone: [facility] HospitalZwgnutcrdx09-05-7864 16:15-0400Diastolic blood mm[Hg]Ariane Aichholz [employer] Work Phone: [phone] [place], [place] 3611110-21-2025 16:15-0400 Heart rate64 /minLisa Aichholz [employer] Work Phone: [phone]-[facility]10-21-2025 16:15-0400 Respiratory rate16 /minLisa Aichholz [employer] Work Phone: [phone] [place], [place] 3611110-21-2025 16:15-0400 SaO2% (BldA) [Mass fraction]99 %Ariane Aichholz [employer] Work Phone: [phone] [place], [place] 3611110-21-2025 16:15-0400 Systolic blood xmioqujx150 mm[Hg]Ariane Aichholz [employer] Work Phone: [phone] [place], [place] 36[address]110-21-2025 15:26-0400 Body kcawqllvhnd61.4 [degF]Ariane Aichholz [employer] Work Phone: [phone] [place], [place] [address]110-21-2025 15:01-0400 Inhaled oxygen flow rate8 L/minLisa Aichholz [employer] Work Phone: [phone]-[facility]10-21-2025 11:33-0400 Body ijqnlu308.02 cmLisa Aichholz [employer] Work Phone: [phone] [place], [place] [address]110-21-2025 11:33-0400 Body rnuvxx835.6 kgLisa Aichholz [employer] Work Phone: [facility]10-08-2025 13:22-0400 Body jcaerr022.02 cmLisa Aichholz [employer] Work Phone: [phone]-[facility]10-08-2025 13:22-0400 Body mass index (BMI) [Ratio]40.6 kg/m2Lisa Aichholz [employer] Work Phone: [facility]10-08-2025 13:22-0400 Body .5 [degF]Ariane Aichholz [employer] Work Phone: [phone]10-08-2025 13:22-0400 Body qcurcn674.98 kgLisa Aichholz [employer] Work Phone: [phone] [place], [place] [address]110-08-2025 13:22-0400 Diastolic blood mm[Hg]Ariane Aichholz [employer] Work Phone: [phone]10-08-2025 13:22-0400 Heart rate66 /minLisa Aichholz [employer] Work Phone: [phone]10-08-2025 13:22-0400 Respiratory rate18 /minLisa Aichholz [employer] Work Phone: [phone] [place], [place] [address]110-08-2025 13:22-0400 SaO2% (BldA) [Mass fraction]98 %Ariane Aichholz [employer] Work Phone: [phone] [place], [place] [address]66310-08-2025 13:22-0400 Systolic blood mm[Hg]Ariane Aichholz [employer] Work Phone: [facility]10-16-2024 17:05-0400 Body mxzkuh330 cmLisa Aichholz [employer] Work Phone: [facility] HospitalCkwfrrvgzn19-35-1332 17:05-0400Body mass index (BMI) [Ratio]43.65 kg/m2Lisa Aichholz [employer] Work Phone: [facility] HospitalDqdmzbdswf41-87-8835 17:05-0400Body temperature 98.8 [degF]Ariane Aichholz [employer] Work Phone: [facility] HospitalVsxrxjpvlm08-59-1610 17:05-0400Body fbbepu483.77 kgLisa Aichholz [employer] Work Phone: [facility] HospitalRxmdwozyje51-02-2082 17:05-0400Diastolic blood shyntsoo81 mm[Hg]Ariane Wells [employer] Work Phone: [facility] HospitalGnwodfnjhr38-41-7495 17:05-0400Heart rate81 /min Ariane Pérezz [employer] Work Phone: [facility] HospitalZxxoroyiii68-39-0354 17:05-0400Respiratory rate18 /minLisa Wells [employer] Work Phone: [facility] HospitalPgnskhqpmj10-74-5216 17:05-3953ZgI9% (BldA) [Mass fraction]98 %Ariane Wells [employer] Work Phone: [facility] HospitalMulyopkwed05-52-5438 17:05-0400Systolic blood xspdosfm612 mm[Hg]Ariane Wells [employer] Work Phone: [facility] HospitalCizembcndp30-25-1042 12:54-0400Body temperature 97.88 [degF]Riky Le [address]03-28-2024 12:54-0400 Diastolic blood izvjsenf46 mm[Hg]Riky Le [address] [place], [place] 4252803-28-2024 12:54-0400Heart rate78 /minRiky Le [address] [place], [place] 4252803-28-2024 12:54-0400 Respiratory rate20 /minRiky Le [address] [place], [place] 4252803-28-2024 12:54-5736HhK7% (BldA) [Mass fraction]98 %Riky Le [address] [place], [place] 4252803-28-2024 12:54-0400 Systolic blood nxcdezeq800 mm[Hg]Riky Le [address] [place] [address] Encounters Encounter DateEncounter TypeCare ProviderFacilityStart: 06-27-2025 End: 35-49-2973Ezoislpvf encounterFredric Brenda Montilla DO Work Phone: [facility] AssociatesStart: 06-27-2025 End: 59-64-4407Pkvovt follow up visit related to original pxFredalexy Montilla DO Work Phone: [facility] AssociatesComment on above:Umbilical hernia with obstruction, without gangrene (Primary Dx)Start: 06-27-2025 End: 42-81-1108tnnanukfhfMLUVMBP Brenda MONTILLANot AvailableStart: 06-21-2025 End: 99-54-7736Zcjyorgm Result EncounterFredric Brenda Montilla DO Work Phone: [facility] External Department UnsolicitedStart: 06-21-2025 End: 12-25-8607Wcmjlfbu Result EncounterFredric Brenda Montilla DO Work Phone: [facility] External Department UnsolicitedStart: 06-21-2025 End: 33-20-1192Bxwpjnrnnf and management of inpatientFredric Trip DO-[facility] Work Phone: Start: 38-50-5865Kxt-patient / Non-visitAriane GILLILANDC-[facility] Work Phone: Start: 06-08-2025 End: 88-38-6443srxuvmbemsFixo J Aichholz NP-C Work Phone: [facility] Work Phone: Start: 06-08-2025 End: 04-24-9921Zbjzxjy encounter procedureAriane Wells NP-C-[facility] Work Phone: Start: 06-23-2024 End: 38-65-7195ExzrotGcbf Aichholz NP Work Phone: [facility] CWM FMComment on above:Yeast infection (Primary Dx)Start: 06-16-2024 End: 11-21-8627Nvinqg outpatient visit 25 minutesLisa Garciaholz [employer] Work Phone: [facility] CWM FMComment on above:Encounter for well woman exam with routine gynecological exam (Primary Dx); Vaginal discharge; Screening for cervical cancer; Class 3 severe obesity due to excess calories without serious comorbidity with body mass index (BMI) of 40.0 to 44.9 in adult ([facility]); Generalized anxiety disorder with panic attacks ([facility])Start: 06-16-2024 End: 98-82-2336Fmujhu flowsheetAriane Wells [employer] Work Phone: [facility] FMStart: 06-16-2024 End: 78-87-7228Wdnpoq flowsDemetrius Wells [employer] Work Phone: [facility] FMStart: 06-16-2024 End: 57-03-2166Nhnjjvvha Result EncounterLisa Wells [employer] Work Phone: [facility] External Department UnsolicitedStart: 06-16-2024 End: 05-97-7860Rpasmsg encounter procedureAriane Wells [employer] Work Phone: n[facility] HealthcareStart: 05-30-2024 End: 63-37-6200Hlbgygask Result EncounterGeneric External Data ProviderNOMS External Department UnsolicitedStart: 05-30-2024 End: 54-37-5722Bpoqzowao Result EncounterGeneric External Data ProviderNOMS External Department UnsolicitedStart: 05-26-2024 End: 48-64-5791IbextcQnqn Aichholz [employer] Work Phone: [facility] CWM FMComment on above:Candidiasis of vagina (Primary Dx)Start: 05-11-2024 End: 23-85-6219Oghjuh outpatient visit 25 minutesNatalie A Felter CURATOR OF [employer]USCRIPTS-WASHING MACHINE INSTALLER Work Phone: [facility] SWS DERMComment on above: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[facility])Start: 05-11-2024 End: 15-44-9303Tjqbnb flowsheetNatalie A Felter CURATOR OF MANUSCRIPTS-WASHING MACHINE INSTALLER Work Phone: [facility] SWS DERMStart: 05-11-2024 End: 55-49-3770Enzbju flowsheetNatalie A Felter CURATOR OF MANUSCRIPTS-WASHING MACHINE INSTALLER Work Phone: [facility] SWS DERMStart: 04-29-2024 End: 84-84-8718Omqgerh encounter procedureNatalie A Felter CURATOR OF MANUSCRIPTS-WASHING MACHINE INSTALLER Work Phone: noms [facility] DERMComment on above:Rash and other nonspecific skin eruption (Primary Dx)Start: 04-29-2024 End: 68-00-5601Gsuoia flowsheetNatalie A Felter CURATOR OF MANUSCRIPTS-WASHING MACHINE INSTALLER Work Phone: [facility] SWS DERMStart: 04-29-2024 End: 30-71-8269Cnvube flowsheetNatalie A Felter CURATOR OF MANUSCRIPTS-WASHING MACHINE INSTALLER Work Phone: [facility] SWS DERMStart: 02-25-2024 End: 19-28-9710Nidjjmjlc Result EncounterGeneric External Data ProviderNOMS External Department UnsolicitedStart: 02-25-2024 End: 62-15-8409Lvyjjwxrk Result EncounterGeneric External Data ProviderNOMS External Department UnsolicitedStart: 02-02-2024 End: 20-53-8717yfocqjmzdbPcolpgg Vyttiffas Evangelinaedraitis Facility:[facility] Start: 11-27-2023 End: 45-09-1320Fgzpabtgz department patient visitRiky LeFacility:[facility] Start: 11-27-2023 End: 14-97-2752Ewfciyfbs department patient visitRiky Le [facility] Start: 12-14-2022 End: 22-29-6893ycdzcaovmmIVW LISA AICHHOLZFacility:E6Ggvqn: 12-11-2022 End: 90-94-1326btnynzhudkWUF LISA AICHHOLZFacility:I2Ruddx: 11-15-2022 End: 68-18-0826okohpzpgciIR JEFFREY PAY .Facility:N6Thyoe: 11-10-2022 End: 30-97-4136gxfahoalvzDG QUANG LANDA .Facility:F6Fvacp: 08-18-2022 End: 49-92-8650wvvkwfqwccSOMUWR RODRIGUEZ .Facility:L2Snyul: 07-09-2022 End: 03-50-4061iisbtnovsbJE SKY DAVIS .Facility:M6Hkqyz: 05-14-2022 End: 12-08-9828dwcortmdjeMPY ARIANE AICMARLEYFacility:G0Htblb: 58-58-8148Fjjcczwln for preprocedural laboratory examinationDR [facility] Start: 05-08-2022 End: 67-66-5617maljiwpqspMO [facility]OSPITALFacility:M5Pplyb: 05-08-2022 End: 23-95-4418Tnxgkvijg for preprocedural laboratory examinationDR [facility] HOSPITALFacility:C2Voixe: 04-18-2022 End: 97-86-6363rouydftzzkPLW ARIANE AICHHOLZFacility:W1Vewxw: 04-01-2022 End: 06-77-1933idcsrxzhecBHF ARIANE AICHHOLZFacility:G4Ulegm: 02-06-2022 End: 23-30-1164meoidvirgnVAL ARIANE AICHHOLZFacility:X2Tufkt: 01-31-2022 End: 56-52-0879qlwamfcyhnQZZMWIFT EBERLYFacility:F8Hwuhg: 26-86-7041aimafuvjct WASHING MACHINE INSTALLER ARIANE RUSSELLFacility:S4Ibnzp: 01-09-2022 End: 32-98-3176pbvigpdfpsDRUBKH RODRIGUEZ .Facility:H1 Procedures DateProcedureProcedure DetailPerforming ClinicianStart: 97-65-2372Jszeqc of umbilical herniaLisa Russell DOCKING PILOT-C Work Phone: Start: 59-45-7822HFYUVYM POCT GLUCOMETERSFredric H Trip DO Work Phone: Start: 38-20-5080CKH,APTIMA HPV,AGE GDLNLisa Russell DOCKING PILOT Work Phone: Start: 69-24-8191Wupwinfcwsg observation [Identifier] in Cervix by Cyto stainAriane Wells DOCKING PILOT Work Phone: Start: 46-04-1864GYANW RESPIRATORY CULTUREGeneric External Data ProviderStart: 59-27-9953PLOL / NAIL BIOPSYNatalie A Roman CURATOR OF MANUSCRIPTS-WASHING MACHINE INSTALLER Work Phone: Start: 95-69-6722Fqu spinal canal cervical w/o contrast matrlGeneric External Data ProviderStart: 22-88-8875Nykmpznghln observation [Identifier] in Cervix by Cyto stainNatalie Quincyer CURATOR OF MANUSCRIPTS-WASHING MACHINE INSTALLER Work Phone: Start: 04-67-1737BvnleyvcveiQlbjs Lewis Comment on above:normalStart: 77-51-1127Wnrrris medicine imaging procedureRiky Le Comment on above:HIDA scan- normalStart: 10-30-2016 EsophagogastroduodenoscopyRiky Le Comment on above:esophagitisStart: 05-27-2016 PolysomnographyRiky Le Comment on above:CPAP @ 13cm H2O, small quattro, ramp time 20 minutesStart: 83-50-2908YagqhtgsusihmQfzzd Lewis History of ankle surgeryRiky Le History of tonsillectomyHx of tonsillectomyAriane Wells DOCKING PILOT-C Work Phone: Tympanic ventilation tube (physical object)Riky Le Tympanic ventilation tube (physical object)Riky Le Plan of Treatment DateCare ActivityDetailAuthorStart: 30-71-5032Ifhhvaaoy for malignant neoplasm of cervixNOMS HealthcareStart: 26-37-6170NbngndirlTogus VA Medical Centertart: 04-06-0533DKNGC-19 Vaccine ( season)COVID-19 Vaccine ( season)NOMS HealthcareStart: 47-96-7220Wkhjb screening for proteinDiabetes: Urine Protein ScreeningNOCO HealthcareStart: 08-10-2024 End: 13-00-1240Pnptyib encounter cokcymrjd50/10/2024 3:40 PM EST Office Visit [facility] [address] [place] [address] Mirela Owens, CURATOR OF MANUSCRIPTS-WASHING MACHINE INSTALLER [address] [place] [address] [facility] DERMStart: 07-26-2024 End: 76-72-4933Ybkqxhy encounter avgmpqhwf45/25/2024 5:00 PM EST Office Visit [facility] [address] [place] [address] Ariane Wells NP [address] [place] [address] [facility]S CW FMStart: 06-16-2024 End: 71-11-9747XSDUSUOG IMAGING PAP AND HPV DNA REFLEX HPV 16,18THINPREP IMAGING PAP AND HPV DNA REFLEX HPV 16,18 Pathology and Cytology Routine Encounter for wellwoman exam with routine gynecological exam Expected: 06/16/2024 (Approximate), Expires: 06/16/2025[facility] HospitalComment on above:Expected: 06/16/2024 (Approximate), Expires: 06/16/2025Start: 06-16-2024 End: 14-91-2726UXNCUWDAM (HTRX)VAGINITIS (HTRX) Lab Routine Vaginal discharge Expected: 06/16/2024 (Approximate), Expires: 06/16/2025[facility] Work Phone: Comment on above:Expected: 06/16/2024 (Approximate), Expires: 06/16/2025Start: 06-16-2024 End: 71-37-5352Mkkockp encounter procedureNOMS CWM FMComment on above:Arrived Start: 05-11-2024 End: 24-63-8272Krjdgng encounter procedureNOMS SWS DERMComment on above:Arrived Start: 04-29-2024 End: 20-36-8947Wyrxbto encounter tswacokhb08/29/2024 3:25 PM EDT Office Visit [facility] [address] [place] [address] QuincyMirela peterson, CURATOR OF MANUSCRIPTS-WASHING MACHINE INSTALLER [address] [place] [address] Granuloma annulareNOMS SWS DERMComment on above:Granuloma annulareStart: 78-51-6993Elkmwcoqzm A1c measurementDiabetes: Hemoglobin Z6AMMSW HealthcareStart: 43-25-1628Nlvaxkqbt for malignant neoplasm of cervixNOCO HealthcareStart: 52-89-4320Feayitcwz for malignant neoplasm of cervixHPV/CotestNOMS HealthcareStart: 31-72-6573XSK Vaccines (1 - 3-dose SCDM series)HPV Vaccines (1 - 3-dose SCDM series)NOM HealthcareStart: 2007 Hepatitis B Vaccines (1 of 3 - 19+ 3-dose series)Hepatitis B Vaccines (1 of 3 - 19+ 3-dose series)NOM HealthcareStart: 92-67-9773Fnpligcgksqj Vaccine: Pediatrics (0 to 5 Years) and At-Risk Patients (6 to 64 Years) (1 of 2 - PCV) Pneumococcal Vaccine: Pediatrics (0 to 5 Years) and At-Risk Patients (6 to 64 Years) (1 of 2 - PCV)NOM HealthcareStart: 77-38-5324Vfjpcuh of varicella vaccinationVaricella Vaccines (1 of 2 - 13+ 2-dose series)NOM HealthcareStart: 83-20-4620Enykdvdt screeningDiabetes: Retinopathy ScreeningNOMS HealthcareStart: 17-41-9454OWqJ/Tdap/Td Vaccines (1 - Tdap)DTaP/Tdap/Td Vaccines (1 - Tdap)NOM HealthcareStart: 64-88-4460QCZ Vaccines (1 of 1 - Standard series)MMR Vaccines (1 of 1 - Standard series)NOMResearch Medical Center-Brookside CampusComprehensive metabolic 2000 panel - Serum or PlasmaFirelands Regional Medical CenterCytology Cervical or vaginal smear or scraping studyPap smear Pathology and Cytology Routine Encounter for well woman exam with routine gynecological exam Ordered: 06/16/2024[facility] HealthcareComment on above:Ordered: 06/16/2024ermatopathology exam Dermatopathology exam Pathology and Cytology Timed Rash and other nonspecific skin eruption ReleaseUpon Ordering for 1 Occurrences starting 04/29/2024[facility] Work Phone: comment on above:Release Upon Ordering for 1 Occurrences starting 4Patient EducationKnow your [facility] Work Phone: [facility] Immunizations Immunization DateImmunizationNotesCare BqjpjnrhRbysfqfc38-09-2083Adyvogb SARS-CoV-2 VaccinationNatalie Roman CURATOR OF MANUSCRIPTS-WASHING MACHINE INSTALLER Work Phone: [facility] Payers DatePayer CategoryPayerPolicy [id number]-[id number] [id number] [id number] 2.840.1.890076.3.57[id number] 2..840.1.208565.3.57[id number] 2.16.840.1.250573.3.57[id number] 2.16.840.1.635228.3.57[id number] 2..840.1.484158.3.57[id number] 2.16.840.1.827376.3.57[id number] 2.16.840.1.332234.3.57[id number] 2.16.840.1.119030.3.57[id number] 2.0.1.233350.3.57[id number] 2.840.1.970665.3.57[id number] 2.0.1.413538.3.57[id number] 2.840.1.622745.3.57[id number] 2..1.050588.3.57[id number] 2.0.1.221171.3.57[id number] 2.0.1.734409.3.57[id number] 2..1.464490.3.579.2.324568-43-5931Kcsxspv8136572340491-65-6014Nkvdlxu [id number] 16o620i2-t368-7zo8-74b9-fb3h4ia55g59MbaevdjYqrxmbuzp [id number] 4v651ws2-7w8t-3207-oh3q-[id number] 2.840.1.957023.3.579.2.531 Social History DateTypeDetailFacilityStart: 22-22-1901Ydrhedn smoking statusHeavy tobacco smoker (finding)[facility] BellevueStart: 75-85-0721Vwgelng smoking status NeverGeneral Surgery BellevueStart: 03-16-2024 End: 63-80-5613Gii Assigned At [facility] Hospitaltart: 12-25-2023 End: 41-15-4168Armcbky smoking status NHISSmokes tobacco dailyNOMS Healthcare Start: 09-83-9680Zfkbfpg use and exposureSmokeless tobacco non-userNOMS HealthcareStart: 01-15-2024 End: 06-77-6654Gnrcaulgz beverage intakeEx-drinker (finding)[facility] Healthcare Start: 03-16-2024 End: 58-26-4029Moefabz of Social functionNOMS HealthcareStart: 19-05-4050Zqubmak Commentcaffine: coffee: 20oz and soda: 1.5L bottle dailyNOMS HealthcareStart: 41-56-7807Xov assigned at [facility] greensboroNot on fileNOCO HealthcareSexFemale (finding) [facility] Centertart: 08-46-7983Ehy Assigned At [facility] Medical Equipment Procedure CodeEquipment CodeEquipment Original TextEquipment IdentifierDates [id number]: 01-28-2023 End: 03-16-2025 Goals DatePatient GoalDesired Activity/State Functional Status ZvbmZnmayzwzsbTxrvdbXaxozgfl43-30-8759Vkjpbsxodl statusPatient at Baseline [facility] Work Phone: [phone]bin Health Questionnaire 2 item (PHQ-2) [Reported][facility] HospitalHvucrlcmfu27-21-6362Ccykkpcyxz StatusN/[facility] Mental Status CjbxNsnsrijszpYkctsyExdchben36-24-1102Wjahtqjlb functionCognitive Status [facility] at [facility] Work Phone: Clinical Notes 05-14-2022 to 06-27-2025 Note Date & QjigGbkvRsauneog37-44-6337 Telephone encounter Note* Telephone Encounter - Tabby Haley - 06/27/2025 1:37 PM EDT Return to work [facility] HospitalTgajwepumn64-29-6470 Miscellaneous Notes* Telephone Encounter - Tabby Haley - 06/27/2025 1:37 PM EDT Return to work documented in this [facility]10-27-2025 History of Present illness Narrative* Viktoria Montilla DO - 06/27/2025 1:30 PM EDT Images from the original note were not included. Marilia Vera is a 35 y.o. female presents for Hosp. 1st po Umb. hernia repair (Incision check) HPI: HPI Marilia presents for her first post-op from umbilical hernia repair. She presented to [facility] with an incarcerated umbilical hernia and was transferred to [place] for surgery. OBJECTIVE: Physical Exam Abdominal: Comments: Umbilical incision is healing well, she has ecchymosis below the umbilicus, no drainage ASSESSMENT AND PLAN: Assessment/Plan Diagnoses and all orders for this visit: Umbilical hernia with obstruction, without gangrene Marilia is recovering from her umbilical hernia repair with small bowel incarceration. She had some drainage from the incision but that appears to have stopped. She does have ecchymosis below the umbilicus but that will resolve. I discussed wound care and returning to work next week. I'll see her PRN. documented in this encounterUniversity of Missouri Children's HospitalOohklmihvv26-11-6953 History and physical note Author Viktoria Montilla [facility] HospitalNote Date/TimeOctober 2024 2:01pm [place] [address] General Surgery H&P Signed Patient: Marilia Vera MR#: [id number] : 1990 Acct:[id number] Age/Sex: 35 / F Adm Date: 5 Loc: 4P Room: 0T6013-2 Type: ADM IN Attending Dr: Viktoria Montilla DO Copies to: DO Ariane Roche NP-C~ Date of Service: 06/21/2025 HPI History of Present Illness HPI: Ms. Vera is a 35 year old female who states that she woke up and around 6:15 AM developed severemid abdominal pain around her umbilicus. She has never had this pain before. It was quite intense, she went to the [facility] emergency room where she was diagnosed with incarcerated umbilicalhernia with small bowel but no evidence of small bowel obstruction. I was called by the ER and asked for acceptance of the patient to [facility] forsurgical management. The patient was subsequently [...] Gastrointestinal: Reports abdominal pain and Reports nausea [facility] Medical History (Updated 06/21/25 @ 13:59 by Viktoria Montilla DO) Sleep apnea with use of continuous [...] List clean-up per request of Phys. [facility]HR [facility] (Updated 06/21/25 @ 13:56 by Viktoria Montilla DO) History of tubal ligation History of colonoscopy Problem List clean-up per request of Phys. EHR Cmte History of esophagogastroduodenoscopy (EGD) Problem List clean-up per request of Phys. EHR [facility] History of ear surgery tubes ears Problem List clean-up per request of Phys. EHR Cmte Family History Brother Hypertension Legacy FamHx Relation: Brother(s) Father Hypertension Heart disease Diabetes Other No significant family history Social History Marital Status: Household Members: spouse and children Housing: house Smoking Status: Current every day smoker Tobacco Type: e-cigarettes Substance Use Type: Alcohol Current Occupational Status: employed Current Occupation: [employer] Meds Medications and Allergies Allergies prednisone Allergy [...] a 35-year-old female who presented to the [facility] emergency room with acute onsetof abdominal pain in the periumbilical area beginning at 6AM. She had nausea but no vomiting. She was evaluated in the emergency room and diagnosed with an incarcerated umbilical hernia. The ER physician contactedme and requested transfer to [facility] for surgical management. The patient presents [...] of surgery she is in agreement. Preoperative ant ibioticswill be given and she will be brought to the operating room on an urgent basis. Documented By: Viktoria Montilla DO 06/21/25 13 53 Signed By: <Electronically signed by Viktoria Montilla DO> 06/21/25 1401 [facility] Work Phone: [phone] [place] [address] General Surgery H&P Signed Patient: Marilia Vera MR#: [id number] : 1990 Acct:[id number] Age/Sex: 35 / F Adm Date: 5 Loc: 4 Room: [address] [place] [address] Type: ADM IN Attending Dr: Viktoria Montilla DO Copies to: Viktoria Montilla DO Ariane Marc Wells, DARSHANAC~ Date of Service: 06/21/2025 HPI History of Present Illness HPI: Ms. Vera is a 35 year old female who states that she woke up and around 6:15 AM developed severemid abdominal pain around her umbilicus. She has never had this pain before. It was quite intense, she went to the [facility] emergency room where she was diagnosed with incarcerated umbilicalhernia with small bowel but no evidence of small bowel obstruction. I was called by the ER and asked for acceptance of the patient to [facility] forsurgical management. The patient was subsequently [...] Gastrointestinal: Reports abdominal pain and Reports nausea [facility] Medical History (Updated 06/21/25 @ 13:59 by Viktoria Montilla DO) Sleep apnea with use of continuous [...] List clean-up per request of Phys. EHR [facility] History (Updated 06/21/25 @ 13:56 by Viktoria Montilla DO) History of tubal ligation History of colonoscopy Problem List clean-up per request of Phys. EHR Cmte History of esophagogastroduodenoscopy (EGD) Problem List clean-up per request of Phys. EHR [facility] History of ear surgery tubes ears Problem List clean-up per request of Phys. EHR [facility] Family History Brother Hypertension Legacy FamHx Relation: [...] a 35-year-old female who presented to the [facility] emergency room with acute onsetof abdominal pain in the periumbilical area beginning at 6AM. She had nausea but no vomiting. She was evaluated in the emergency room and diagnosed with an incarcerated umbilical hernia. The ER physician contactedme and requested transfer to [facility] for surgical management. The patient presents [...] of surgery she is in agreement. Preoperative ant ibioticswill be given and she will be brought to the operating room on an urgent basis. Documented By: Viktoria Montilla DO 06/21/25 13 53 Signed By: 06/21/[address] [facility]10-08-2025 Evaluation note* Diagnosis Onset Date Resolution Status Admit Date ASHA (generalized anxiety disorder) acuteOctober 2024 1:15pmNicotine dependenceacuteOctober 2024 1:15pm Uncontrolled type 2 diabetes mellitus, without long-term current use of insulin acuteOctober 2024 1:15pmVitamin D deficiencyacuteOctober 2024 1:15pm Incarcerated umbilical herniaacuteOctober 2024 11:29am [facility] Work Phone: [phone] Hospital Discharge instructionsAmbulatory Orders* AMB POC Hgb A1C Time Frame: 06/08/25, Location: Determined By Patient [facility] Work Phone: [phone] History of Present illness Narrative* Ariane Wells [...] weight 246 lb 6.4 oz. * Ariane SHIV Wells - 06/16/2024 5:00 PM EDT Images from [...] nursing note reviewed. Exam conducted with a programs director present. Constitutional: General: She is not in [...] Screening for cervical cancer documented in this encounterUniversity of Missouri Children's HospitalZghvhrftez52-67-8985 History of Present illness Narrative* Mirela Owens APRN-FORREST - 05/11/2024 3:25 PM EDT Suture Removal [...] Next Visit: 3 months documented in this encounterUniversity of Missouri Children's HospitalQihizdhcsn15-04-7511 History of Present illness Narrative* ROSA Bee [...] skin eruption Right Lower Leg - Anterior [place] patches and plaques Biopsy today, see procedure [...] Visit: 14 days s/r documented in this encounterUniversity of Missouri Children's HospitalLwknijtrwb42-30-9890 Hospital Discharge instructions Patient Education 11/27/2023 15:37:23 [...] to strengthen the arm. General instructions Take nwfh-wox-gamdbqu and prescription medicines only as told by [...] provider. Document Revised: 05/03/2022 Document Reviewed: 05/03/2022 Mobile Authentication Patient Education 2022 [employer]. Follow Up Care 11/27/2023 12:54:30 With:Georgi Pfeiffer Address: [address] [place] [address] Business (1) When:11/30/2023 15:21:31 [facility]03-28-2024 Evaluation + Plan noteExtracted from: Title:ED NoteAuthor:Theresa OCONNELL, JansenDate:11/27/23 Pain in shoulder (M25.519: P ain [...] EDT, Weight Dosing XR Shoulder Complete Right [facility]04-17-2023 NotePROCEDURE: XR ANKLE RT MIN 3 [...] Electronically authenticated by: HAYDE VAN Date: 2022-12-16 07:21[facility]04-17-2023 NotePROCEDURE: XR KNEE RT 4V or > DATE: 12/14/2022 9:31 AM CDT COMPARISONS: None CLINICAL INDICATION: Pain of right knee joint FINDINGS: There is no evidence of fractures or other osseous abnormalities. No evidence of right knee joint effusion IMPRESSION: Right knee radiographs show no evidence of significant abnormalities. Electronically authenticated by: HAYDE VAN Date: 2022-12-16 07:17[facility]09-13-2022 NoteOPERATIVE NOTE OPERATION DATE: 05/14/2022 PRIMARY CARE PROVIDER: Ariane Wells CNP SURGEON: Rosa Timmis, M.D. PREOPERATIVE DIAGNOSIS: Left middle ear foreign [...] recovery room in good condition.[facility]* Diagnosis Vitamin D deficiency- Primary Type 2 diabetes mellitus without complication, with long-term current use of insulin ([facility]) Class 3 severe obesity due to excess calories without serious comorbidity with body mass index (BMI) of 40.0 to 44.9 in adult ([facility]) Muscle spasm Spasm of muscle Muscle spasm- Primary Spasm of muscle Class 3 severe obesity due to excess calories without serious comorbidity with body mass index (BMI) of 40.0 to 44.9 in adult ([facility]) Type 2 diabetes mellitus without complication, with long-term current use of insulin ([facility]) Current tobacco use Granuloma annulare Other specified erythematous condition Granuloma annulare- Primary Other specified erythematous condition Bipolar disorder, unspecified ([facility]) Bipolar disorder, unspecified Type 2 diabetes mellitus without complication, with long-term current use of insulin ([facility]) Class 3 severe obesity due to excess calories without serious comorbidity with body mass index (BMI) of 40.0 to 44.9 in adult ([facility]) Encounter for well woman exam with routine gynecological exam- Primary Vaginal discharge Leukorrhea, not specified as infective Screening for cervical cancer Screening for malignant neoplasm of the cervix Class 3 severe obesity due to excess calories without serious comorbidity with body mass index (BMI) of 40.0 to 44.9 in adult ([facility]) Generalized anxiety disorder with panic attacks ([facility]) documented in this encounter [facility] HealthcareEvaluation note* Diagnosis Vitamin D deficiency- Primary Type 2 diabetes mellitus without complication, with long-term current use of insulin ([facility]) Class 3 severe obesity due to excess calories without serious comorbidity with body mass index (BMI) of 40.0 to 44.9 in adult ([facility]) Muscle spasm Spasm of muscle Muscle spasm- Primary Spasm of muscle Class 3 severe obesity due to excess calories without serious comorbidity with body mass index (BMI) of 40.0 to 44.9 in adult ([facility]) Type 2 diabetes mellitus without complication, with long-term current use of insulin ([facility]) Current tobacco use Granuloma annulare Other specified erythematous condition Granuloma annulare- Primary Other specified erythematous condition Bipolar disorder, unspecified ([facility]) Bipolar disorder, unspecified Type 2 diabetes mellitus without complication, with long-term current use of insulin ([facility]) Class 3 severe obesity due to excess calories without serious comorbidity with body mass index (BMI) of 40.0 to 44.9 in adult ([facility]) Encounter for well woman exam with routine gynecological exam- Primary Vaginal discharge Leukorrhea, not specified as infective Screening for cervical cancer Screening for malignant neoplasm of the cervix Class 3 severe obesity due to excess calories without serious comorbidity with body mass index (BMI) of 40.0 to 44.9 in adult ([facility]) Generalized anxiety disorder with panic attacks ([facility]) Yeast infection- Primary documented in this encounter [facility] HealthcareEvaluation note* Diagnosis Rash and other nonspecific skin eruption- Primary documented in this encounter [facility] HealthcareEvaluation note* Diagnosis 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[facility]) Type II or unspecified type diabetes mellitus with other specified manifestations, not stated as uncontrolled documented in this encounter [facility] HealthcareEvaluation note* Diagnosis Candidiasis of vagina- Primary Candidiasis of vulva and vagina documented in this encounter [facility] HealthcareEvaluation note* Diagnosis Onset Date Resolution Status Admit Date ASHA (generalized anxiety disorder) acuteOctober 2024 1:15pmMajor depressive disorder, recurrent, mildacute June 08, 2025 1:15pmNicotine dependenceacuteOctober 2024 1:15pmType 2 diabetes mellitus with insulin therapyacuteOctlexington va [facility] 2024 1:15pmVitamin D deficiencyacuteAspirus [facility] 2024 1:15pm [facility] Work Phone: Evaluation note* Diagnosis Vitamin D deficiency- Primary Type 2 diabetes mellitus without complication, with long-term current use of insulin ([facility]) Class 3 severe obesity due to excess calories without serious comorbidity with body mass index (BMI) of 40.0 to 44.9 in adult ([facility]) Muscle spasm Spasm of muscle Muscle spasm- Primary Spasm of muscle Class 3 severe obesity due to excess calories without serious comorbidity with body mass index (BMI) of 40.0 to 44.9 in adult ([facility]) Type 2 diabetes mellitus without complication, with long-term current use of insulin ([facility]) Current tobacco use Granuloma annulare Other specified erythematous condition Granuloma annulare- Primary Other specified erythematous condition Bipolar disorder, unspecified ([facility]) Bipolar disorder, unspecified Type 2 diabetes mellitus without complication, with long-term current use of insulin ([facility]) Class 3 severe obesity due to excess calories without serious comorbidity with body mass index (BMI) of 40.0 to 44.9 in adult ([facility] [place]) Encounter for well woman exam with routine gynecological exam- Primary Vaginal discharge Leukorrhea, not specified as infective Screening for cervical cancer Screening for malignant neoplasm of the cervix Class 3 severe obesity due to excess calories without serious comorbidity with body mass index (BMI) of 40.0 to 44.9 in adult ([facility] [place]) Generalized anxiety disorder with panic attacks Umbilical hernia with obstruction, without gangrene- Primary Umbilical hernia with obstruction documented in this encounter [facility] Narrative No data available for this section [facility] Discharge instructionsAdditional Instructions DISCHARGE INSTRUCTIONS FOR GENERAL SURGERY YOUR [...] directed for pain unless a prescription was provided.[facility] Work Phone: Progress note No data available for this section [facility] HospitalReason for referral (narrative)No reason for referral information availableTrihealth Work Phone: Summary Purpose Family History Relationship Condition Age at Onset Recorded Date/T kim Not Specified No pertinent family history Unknown brotherHypertensionUnknownfatherDeceasedUnknownHypertensionUnknownHeart disease UnknownDiabetes mellitusUnknown Advance Directives Advance Directive Response Recorded Date/ Time Advance Directives No May 5:12pm Reason for Referral SpecialtyDiagnoses / ProceduresReferred By ContactReferred To Contact Diagnoses 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CMS/HCC) Mirela Owens, CURATOR OF MANUSCRIPTS-WASHING MACHINE INSTALLER [address] [address] Referral IDStatusReasonStart DateExpiration DateVisits RequestedVisits [id number] [id number] Chief Complaint and Reason for Visit Chief [...] D deficiency June 08, 2025 1 :15pm Chief Complaint Admit Date follow up from [...] :15pm Incarcerated umbilical hernia June 212024 11:29am Additional Source Comments INFORMATION SOURCE (unrecogn ized section and content) DATE CREATED AUTHOR 12/19/2022 [facility] DATE CREATED AUTHOR AUTHOR'S ORGANIZ ATION 11/29/2023 [facility] DATE CREATED AUTHOR AUTHOR'S ORGANIZ ATION 02/13/2024 [facility] DATE CREATED AUTHOR AUTHOR'S ORGANIZ ATION 06/25/2025 [facility] DATE CREATED AUTHOR AUTHOR'S ORGANIZ ATION 06/28/2025 [facility] EPIC Patient Care team informatio n (unrecognized section and content) Team MemberRelationshipSpecialtyStart DateEnd Date Georges Shook MD [address] [place] [address] PCP - GeneralFamily Medicine02/19/23 Channing Freire MD [address] [place] [address] PCP - [facility]12/01/23Team MemberRelationshipSpecialtyStart DateEnd Date Georges Shook MD [address] [place] [address] PCP - GeneralFamily Medicine02/19/23 Channing Freire MD [address] [place] [address] (Fax) PCP - [facility]12/01/23Team MemberRelationshipSpecialtyStart DateEnd Date Georges Shook MD [address] [place] [address] PCP - GeneralFamily Medicine02/19/23 Channing Freire MD [address] [facility] [place] [address] (Fax) PCP - [facility]12/01/23Team MemberRelationshipSpecialtyStart DateEnd Date Georges Shook MD [address] [place] [address] PCP - Generalmi Medicine02/19/23 Channing Freire MD [address] [facility] [place] [address] (Fax) PCP - [facility]12/01/23Team MemberRelationshipSpecialtyStart DateEnd Date Georges Shook MD [address] [place] [address] PCP - Generalmi Medicine02/19/23 Channing Freire MD [address] [facility] [place] [address] (Fax) PCP - [facility]12/01/23Team MemberRelationshipSpecialtyStart DateEnd Date Georges Shook MD [address] [place] [address] PCP - GeneralFamily Medicine02/19/23Team MemberRelationshipSpecialtyStart DateEnd Date Georges Shook MD [address] [place] [address] PCP - GeneralFamily Medicine02/19/23Team MemberRelationshipSpecialtyStart DateEnd Date Georges Shook MD [address] [place] [address] PCP - GeneralFamily Medicine02/19/23Team MemberRelationshipSpecialtyStart DateEnd Date Georges Shook MD [address] [place] [address] PCP - GeneralFamily Medicine02/19/23Team MemberRelationshipSpecialtyStart DateEnd Date Georges Shook MD [address] [place] [address] PCP - GeneralFamily Medicine02/19/23 Channing Freire MD [address] [place] [address] PCP - [facility]12/01/23 Team Status: Active Member Role Status Dates SNOW Aponte Primary Care Provider Active Team Status: Inactive Member Role Status Dates SNOW Aponte Primary Care Provider Active Start: June 08, 2025 End: June 08, 2025Ariane Wells NP-CAttending ProviderActiveStart: June 08, 2025 End: June 08, 2025Team MemberRelationshipSpecialtyStart DateEnd Date Georges Shook MD PCP - GeneralFamily Medicine02/19/23 Channing Freire MD [address] [facility] [address] [place] [address] PCP - [facility]12/01/23 Team Status: Active Member Role/Relationship Status Dates Ariane Wells DOCKING PILOT-C Primary Care Provider Active Team Status: Inactive Member Role/Relationship Status Dates Ariane Wells DOCKING [employer]-C Primary Care Provider Active Start: June 08, 2025 End: June 08, 2025Ariane Wells DOCKING PILOT-CAttending ProviderActiveStart: June 08, 2025 End: June 08, 2025 Team Status: Active Member Role/Relationship Status Dates Ariane Wells DOCKING P[employer]-C Primary Care Provider Active Start: June 21, 2025 Ariane Wells DOCKING PILOT-CAttending ProviderActiveStart: June 21, 2025 Team Status: Inactive Member Role/Relationship Status Dates Ariane Wells , DOCKING PILOT-C Primary Care Provider Active Start: June 21, 2025 End: June 21, 2025Fredric Itzkopalmer , DOAdmit ProviderActiveStart: June 21, 2025 End: June 21, 2025Fredric Itzkowitz , DOAttending ProviderActiveStart: June 21, 2025 End: June 21, 2025Team MemberRelationshipSpecialtyStart DateEnd Date Channing Freire MD [address] [facility] [address] [place] [address] (Fax) PCP - [facility]12/01/23 Ariane Wells NP [address] [place] [address] Nurse PractitionerPembroke Hospital Iyuategf80/27/25Team MemberRelationshipSpecialtyStart DateEnd Date Channing Freire MD [address] [place] [address] PCP - [facility]12/01/23 Ariane Wells NP [address] [place] [address] Nurse PractitionerFaflly Rawmfzmp00/27/25Team MemberRelationshipSpecialtyStart DateEnd Date Georges Shook MD PCP - [facility] Medicine02/19/2310 Chnaning Freire MD [address] [place] [address] PCP - [facility]12/01/23 Ariane Wells NP [address] [place] [address] Nurse PractitionerFaPiedmont Newton06/27/25 Reason for Visit (unrecogniz ed section and content) ReasonCommentsRashSpecialtyDiagnoses / ProceduresReferred By ContactReferred To ContactDermatology Diagnoses Granuloma annulare Procedures [place] OFFICE/OUTPATIENT NEW HIGH MDM 60 MINUTES Ariane Wells, SHIV [address] [place] [address] Mirela Owens, CURATOR OF MANUSCRIPTS-WASHING MACHINE INSTALLER [address] [place] [address] Referral IDStatusReasonStart DateExpiration DateVisits RequestedVisits [id number] Specialty Services Required /[id number] / Staple RemovalReasonCommentsHosp. 1st po Umb. hernia repairIncision check Goals (unrecognized section and content) Goals may [...] BE BASED ON THE PRIMARY CLINICAL RECORDS. [facility] provides no warranty or guarantee of the accuracy or completeness of information in this document.
--- NOTE | 2025-07-01 14:35 | ED.GENADUL1 ---
HPI HPI - General Adult General Chief complaint: Skin/Abscess/Foreign Body Stated complaint: WOUND CHECK Time Seen by Provider: 07/01/25 14:15 Source: patient Mode of arrival: walk-in Limitations: no limitations History of Present Illness HPI narrative: Patient is a 35-year-old female who presents with complaints of increased purulent drainage from her surgical wound. She just had surgery for an incarcerated umbilical hernia on June [address] Dominique at [facility]. She states last night she did have some cold sweats, but did not take her temperature. She woke up this morning about 10 AM with increased drainage from her wound that she states had a little bit of a foul odor from it. She states this drainage was different and more copious than what she been having. Related Data Home Medications ?Medication ?Instructions ?Recorded ?Confirmed aripiprazole 10 mg tablet 10 mg PO QDAY 02/04/23 04/13/25 Held on 04/13/25. Instructions: no insurance buspirone 10 mg tablet 10 mg PO BID 02/04/23 04/13/25 Held on 04/13/25. Instructions: no insurance calcium carbonate (Calcium 600) 600 mg PO DAILY 02/04/23 04/13/25 Held on 04/13/25. Instructions: no insurance fluoxetine 40 mg capsule 40 mg PO QDAY 02/04/23 04/13/25 Held on 04/13/25. Instructions: no insurance insulin regular hum U-500 conc 500 60 unit subcut TID 02/04/23 04/13/25 unit/mL(3 mL) subcut pen (Humulin R U-500 (Conc) Insulin Kwikpen) Held on 04/13/25. Instructions: no insurance magnesium 250 mg tablet 250 mg PO DAILY 02/04/23 04/13/25 Held on 04/13/25. Instructions: no insurance pantoprazole 40 mg tablet,delayed 40 mg PO Q12H PRN indigestion 02/04/23 04/13/25 release Held on 04/13/25. Instructions: no insurance spironolactone 50 mg tablet 50 mg PO QDAY 02/04/23 04/13/25 Held on 04/13/25. Instructions: no insurance trazodone 50 mg tablet 50 mg PO DAILY 02/04/23 04/13/25 Held on 04/13/25. Instructions: no insurance cholecalciferol (vitamin D3) 50 2,000 unit PO DAILY 02/02/24 04/13/25 mcg (2,000 unit) tablet (Vitamin D3) Held on 04/13/25. Instructions: no insurance empagliflozin 25 mg tablet 25 mg PO DAILY 02/02/24 04/13/25 (Jardiance) Held on 04/13/25. Instructions: no insurance gabapentin 100 mg capsule 100 mg PO TID 02/02/24 04/13/25 Held on 04/13/25. Instructions: no insurance metformin 500 mg tablet 500 mg PO BID 02/02/24 04/13/25 Held on 04/13/25. Instructions: no insurance Previous Rx's ?Medication ?Instructions ?Recorded qohvaridnzdryir-nnxbshxovqfanzb-XL 10 ml PO Q6H PRN cold symptoms 06/03/24 2 mg-30 mg-10 mg/5 mL oral syrup #200 mL (Bromfed DM) Held on 04/13/25. Instructions: no insurance famotidine 20 mg tablet (Pepcid) 20 mg PO BID 4 weeks #56 tabs 11/06/24 Held on 04/13/25. Instructions: no insurance zqmqmwnvgv-brotccwiskneu-wdisxwtb 1 cap PO Q6H PRN pain 5 days #20 04/13/25 50 mg-300 mg-40 mg capsule caps (Fioricet) cephalexin 500 mg capsule 500 mg PO Q6H 7 days #28 caps 07/01/25 Allergies Allergy/AdvReac Type Severity Reaction Status Date / Time prednisone AdvReac Severe hyperglycem Verified 07/01/25 13:55 ia Opioid HPI Opioid Management Most Recent Opioid Data: Last Pain Scale 9 06/21/25, 09:52 Review of Systems ROS Status of ROS 10 or more systems reviewed and unremarkable except as noted in history and below [facility] Social History Smoking status: Current every day smoker Little interest or pleasure in doing things: not at all Feeling down, depressed, or hopeless: not at all Exam Narrative Exam Narrative: General: No distress, age-appropriate Skin: Warm, dry, no pallor. No rash. Head: Normocephalic, atraumatic. Neck: Supple, non-tender. Eye: Pupils are equal, round and EOMI. No scleral icterus. Ears, Nose, Mouth, and Throat: No nasal mucosal hypertrophy. Oral mucosa is moist, no posterior oropharynx erythema, uvula is mid-line Cardiovascular: Regular Rate and Rhythm without murmur, gallop or rub. Respiratory: No accessory muscle use or respiratory distress. Lungs are clear to auscultation, no wheezing, rales or rhonchi Chest Wall: no tenderness Back: No midline thoracic or lumbar vertebral tenderness. Musculoskeletal: Full ROM of all extremities, no calf or popliteal tenderness GI: Abdomen is soft, non-distended, non tender to palpation. No masses appreciated. No rebound, guarding, or rigidity noted. Umbilical incision, no surrounding erythema, nondraining on exam, minimal dehiscence. Neurological: A&O x4. No cranial nerve dysfunction observed. No truncal ataxia. Moves all extremities. Sensation intact. Psychiatric: Cooperative and interactive. Normal mood and affect. Constitutional Vital Signs, click to edit/add: Last Vital Signs Temp 98.7 F 07/01/25 13:55 Pulse 80 07/01/25 13:55 Resp 16 07/01/25 13:55 BP 131/75 07/01/25 13:55 Pulse Ox 97 07/01/25 13:55 O2 Del Method Room Air 07/01/25 13:55 Course Vital Signs Vital signs: Vital Signs Temperature 98.7 F 07/01/25 13:55 Pulse Rate 80 07/01/25 13:55 Respiratory Rate 16 07/01/25 13:55 Blood Pressure 131/75 07/01/25 13:55 Pulse Oximetry 97 07/01/25 13:55 Oxygen Delivery Method Room Air 07/01/25 13:55 Temperature 98.7 F 07/01/25 13:55 Pulse Rate 80 07/01/25 13:55 Respiratory Rate 16 07/01/25 13:55 Blood Pressure 131/75 07/01/25 13:55 Pulse Oximetry 97 07/01/25 13:55 Oxygen Delivery Method Room Air 07/01/25 13:55 Medical Decision Making MDM Narrative Medical decision making narrative: This is a 35-year-old female who is 10 days postop from a incarcerated umbilical hernia surgery with Dr. Dominique, [facility]' general surgery. She has already had her follow-up appointment and was having some drainage at that time but was a small amount compared to this morning. This morning she reports she woke up with a lot of bloody drainage around her wound that was malodorous. She denies any fever, but did not take her temperature and did feel cold sweats last night. On exam patient is in no distress, vitals are hemodynamically stable. Temperature here is 98.7 ?F, afebrile. The surgical wound is nondraining on exam, there is some slight superficial dehiscence. Plan will be to cover her with Keflex 500 mg every 6 hours x 5 days and have her make a new appointment with her general surgeon for recheck. There is no drainage on exam at this time, I discussed that the infection is likely superficial. She denies any abdominal pain, nausea, or vomiting. Patient was discharged in stable condition on antibiotics with plan for close follow-up with Dr. Dominique for wound recheck. Differential Diagnosis Differential Diagnosis: Superficial surgical site infection Discharge Plan Discharge Chief Complaint: Skin/Abscess/Foreign Body Clinical Impression: Postprocedural wound infection Patient Disposition: Home, Self-Care Time of Disposition Decision: 14:45 Condition: Good Mode of Transportation: Private Vehicle Prescriptions / Home Meds: New cephalexin 500 mg capsule 500 mg PO Q6H 7 Days Qty: 28 0RF No Action aripiprazole 10 mg tablet 10 mg PO QDAY buspirone 10 mg tablet 10 mg PO BID trazodone 50 mg tablet 50 mg PO DAILY fluoxetine 40 mg capsule 40 mg PO QDAY spironolactone 50 mg tablet 50 mg PO QDAY pantoprazole 40 mg tablet,delayed release (DR/EC) 40 mg PO Q12H PRN (Reason: indigestion) magnesium 250 mg tablet 250 mg PO DAILY calcium carbonate [Calcium 600] 600 mg calcium (1,500 mg) tablet 600 mg PO DAILY Humulin R U-500 (Conc) Kwikpen 500 unit/mL (3 mL) insulin pen 60 unit SUBCUT TID Rx Instructions: with sliding scale Jardiance 25 mg tablet 25 mg PO DAILY metformin 500 mg tablet 500 mg PO BID cholecalciferol (vitamin D3) [Vitamin D3] 50 mcg (2,000 unit) tablet 2,000 unit PO DAILY gabapentin 100 mg capsule 100 mg PO TID qofyvpbzeu-zqoezhiixgmln-kcbf [Fioricet] 50-300-40 mg capsule 1 cap PO Q6H PRN (Reason: pain) 5 Days Qty: 20 0RF rpvmaowviwotqda-khcaumlne-RL [Bromfed DM] 2-30-10 mg/5 mL syrup 10 ml PO Q6H PRN (Reason: cold symptoms) Qty: 200 0RF famotidine [Pepcid] 20 mg tablet 20 mg PO BID 28 Days Qty: 56 0RF Print Language: Djiboutian Instructions: Surgical Site Infections (ED) Referrals: VIKTORIA DOMINIQUE D.O. [Physician, General Surgery] - 1 week Ariane Wells NP [Primary Care Provider, Family Practice] - 1 week Discharge Date/Time: 07/01/25 15:11
== END 2025-07-01 15:11 | disposition home or self-care (01) ==
PROVIDERS: Emergency Provider Emergency Medicine; PCP Nurse Practitioner
DX: T81.41XA Infection following a procedure, superficial incisional surgical site, initial encounter (principal); F17.200 Nicotine dependence, unspecified, uncomplicated
CPT/HCPCS: 99282

== ENCOUNTER 2025-07-12 07:23 | Outpatient (OUT) | payer MEDICAID, SELFPAY ==
--- OUTSIDE RECORDS SUMMARY | 2025-07-04 13:45 | XMS_ITS | Encounter Summary ---
Author Organization [facility] Address [address] [place] [address] Care Team Providers Care Md Pediatric Allergist Name Role Phone Channing Freire MD Unavailable [phone] Ariane Wells NP Unavailable [phone] Channing Freire MD Primary Care Provider [phone] Reason for Visit * CzczwsBrchgjgv1co pow Umb.herniaStarted on Cephalexin 500mg today. Umbilical wound, odoriferous Encounter Details DateTypeDepartmentCare Team (Latest Contact Info)Sqpipxwkesq55/03/2025 1:45 PM ESTOffice Visit [facility] [address] [facility] [address] [place] [address] Abdulkadir Dominique, DO [address] [facility] [address] [place] [address] Umbilical hernia with obstruction, without gangrene (Primary Dx) Social History Tobacco UseTypesPacks/DayYears UsedDateSmoking Tobacco: Every DaySmokeless Tobacco: NeverAlcohol UseStandard Drinks/WeekCommentsNot Currently0 (1 standard drink = 0.6 oz pure alcohol)caffine: coffee: 20oz and soda: 1.5L bottle daily PHQ-2AnswerDate RecordedPatient Health Questionnaire-2 [id number] CommentsUnknownSex and Gender InformationValueDate RecordedSex Assigned at Not on fileLegal VoiYcvymu08/15/2023 9:50 PM EDTGender IdentityNot on fileSexual OrientationNot on filedocumented as of this encounter Progress Notes * Abdulkadir Dominique DO - 07/04/2025 1:45 PM EST Images from the original note were not included. Johnson Vera is a 35 y.o. female presents for 2nd pow Umb.hernia (Possible seroma, incision check) HPI: HPI Johnson presents for her first post-op check from umbilical hernia repair. She states last Friday shenoticed so drainage from the incision. She was seen at an ER (not [facility]) and whoever saw her pressedtheir fingers into the umbilicus to get a look at what was going on This caused Johnson some pain. She was started on PO antibiotics and called to be seen today for checkup of the wound. OBJECTIVE: Physical Exam Abdominal: Comments: At the 3-5:00 position inside the umbilicus is superficially necrotic skin. Currently shedoes not have any drainage or cellulitis around the incision ASSESSMENT AND PLAN: Assessment/Plan Diagnoses and all orders for this visit: Umbilical hernia with obstruction, without gangrene I debrided some of the necrotic tissue and explained that the dissection of the hernia sac from theskin resulted in a loss of blood supply to that area resulting in the superficial necrosis. I askedher to keep the area clean and wash it daily. I told her to cover it after her shower and to complete the antibiotics. I'll see her next week for recheck and further debridement if needed. documented in this encounter Plan of Treatment DateTypeDepartmentCare Team (Latest Contact Info)Nwzpldenmnw82/17/2025 4:00 PM ESTOffice Visit [facility] [address] [facility] [address] [place] [address] Abdulkadir Dominique DO [address] [facility] [address] [place] [address] documented as of this encounter Visit Diagnoses Diagnosis Umbilical hernia with obstruction, without gangrene- Primary Umbilical hernia with obstruction documented in this encounter Additional Health Concerns AssessmentNoted TimePHQ-9 Depression Total Score: 804 1:28 PM EDT documented as of this encounter Care Teams Team MemberRelationshipSpecialtyStart DateEnd Date Channing Freire MD [address] [address] PCP - [facility]12/01/23 Channing Freire MD [address] [address] PCP - GeneralFamily Enbaolri53/3/2511 Ariane Wells NP [address] [place] [address] Nurse PractitionerFamily Jhmfoonn61/27/25documented as of this encounter
--- OUTSIDE RECORDS SUMMARY | 2025-07-11 16:00 | XMS_ITS | Encounter Summary ---
Author Organization [facility] Address [address] [place] [address] Care Team Providers Care Retail Delivery Driver Name Role Phone Channing Freire MD Unavailable Ariane Wells NP Unavailable [phone] Unallocated, [facility] Provider Primary Care Provi suman Reason for Visit * ReasonCommentsWound Check Encounter Details DateTypeDepartmentCare Team (Latest Contact Info)Wbxlxyxteyd93/10/2025 4:00 PM ESTOffice Visit [facility] [address] [address] Abdulkadir Dominique, 7[address] [facility] [address] [place] [address] Umbilical hernia with obstruction, without gangrene (Primary Dx) Social History Tobacco UseTypesPacks/DayYears UsedDateSmoking Tobacco: Every DaySmokeless Tobacco: NeverAlcohol UseStandard Drinks/WeekCommentsNot Currently0 (1 standard drink = 0.6 oz pure alcohol)caffine: coffee: 20oz and soda: 1.5L bottle daily PHQ-2AnswerDate RecordedPatient Health Questionnaire-2 [id number] CommentsUnknownSex and Gender InformationValueDate RecordedSex Assigned at Not on fileLegal OaqUngtfv85/15/2023 9:50 PM EDTGender IdentityNot on fileSexual OrientationNot on filedocumented as of this encounter Progress Notes * Abdulkadir Dominique DO - 07/11/2025 4:00 PM EST Images from the original note were not included. Johnson Vera is a 35 y.o. female presents for Wound Check HPI: HPI Johnson presents for wound check from the umbilical hernia repair. OBJECTIVE: Physical Exam On the left lateral wall of the umbilicus going deep into the depression is superficial necrotic tissue, no drainage or cellulitis noted. ASSESSMENT AND PLAN: Assessment/Plan Diagnoses and all orders for this visit: Umbilical hernia with obstruction, without gangrene I debrided some of the necrotic tissue. I asked her to continue with the local wound care. I'll seeher next week to debride more tissue. documented in this encounter Plan of Treatment DateTypeDepartmentCare Team (Latest Contact Info)Upkvkiekzjy96/17/2025 4:00 PM ESTOffice Visit [facility] [address] [phone] Abdulkadir Dominique DO [address] [address] documented as of this encounter Visit Diagnoses Diagnosis Umbilical hernia with obstruction, without gangrene- Primary Umbilical hernia with obstruction documented in this encounter Additional Health Concerns AssessmentNoted TimePHQ-9 Depression Total Score: 8012/25/2023 1:28 PM EDT documented as of this encounter Care Teams Team MemberRelationshipSpecialtyStart DateEnd Date Channing Freire MD [address] [place] [address] (Fax) PCP - DELANEY Still [facility]12/01/23 Unallocated, [facility] MD Allan [address] [place] [address] PCP - GeneralFamily Plebdqom36/4/25 Ariane Wells NP [address] [place] [address] Nurse PractitionerFamily Atrwbdhv25/27/25documented as of this encounter
--- OUTSIDE RECORDS SUMMARY | 2025-07-12 07:29 | XMS_ITS | Clinical Summary ---
Author Organization [facility] Address [address] [place] [address] Care Team Providers Care Mine Safety Engineer Name Role Phone Channing Freire MD Unavailable Ariane Wells NP Unavailable [phone] Unallocated, Noms Provider Primary Care Provi suman Allergies Active AllergyReactionsCriticalityNoted GtuhWhzdsffuFkkhetpdtdPzqp09/25/2024 Medications MedicationSigDispense QuantityRefillsLast FilledStart DateEnd DateStatus traZODone (Desyrel) 50 MG tablet Take 100 mg by mouth at bedtimeActive spironolactone (Aldactone) 50 MG tablet Take 50 mg by mouth DailyActive pravastatin (Pravachol) 20 MG tablet Take 20 mg by mouth in the mobaiee5001/28/2023ctive metFORMIN XR (Glucophage-XR) 500 MG 24 hr [...] USE ONE BEFORE EACH MEAL AND AT EIKRSDO3501/28/2023ctive FLUoxetine (PROzac) 40 MG capsule Take 40 [...] 125 MCG (5000 UT) chewable tablet ChewActive cephalexin (Keflex) 500 MG capsule Every 8 hours5Active Active Problems ProblemNoted DateDiagnosed DateYeast ahrzrebpv88/23/2024Vaginal discharge 06/16/2024 Overview (06/16/2024): Letha [id number] EXP 08/31/24 Lot #[id number] Assessment & Plan (06/16/2024 5:57 PM EDT): Health trax vaginitis exam Encounter for well woman exam with routine gynecological exam06/16/2024 Assessment & Plan (06/16/2024 5:57 PM EDT): Thin prep Fu as per PAP indications Generalized anxiety disorder with panic pdtxiau7806/16/2024 Assessment & Plan (06/16/2024 6:00 PM EDT): Worsening anxiety while in the car Will try increasing buspar 10mg TID Fu in 6 weeks Candidiasis of eqbtnk5805/26/2024Type 2 diabetes mellitus without complication, with long-term current use of qwhrzog0803/16/2024 Assessment & Plan (03/16/2024 1:22 PM EDT): [...] refill of test strips as well Granuloma lduqcynt70/16/2024 Assessment & Plan (03/16/2024 1:22 PM EDT): No help with steroid cream Will refer to derm Acquired deformity of right ankle12/25/2023ADHD12/25/2023ipolar disorder 12/25/20236039Ssnsyezaic65/25/2024MI 45.0-49.9, adult12/25/2023lass 3 severe obesity due to excess calories with body mass index (BMI) of 40.0 to 44.9 in adult12/25/2023onductive hearing loss, vxsijocyd89/25/2024urrent tobacco use 12/25/2023DD (degenerative disc disease), sxyovu5312/25/2023ysfunction of both eustachian tubes12/25/2023Female yjkqsjytiqz79/25/7949Pjxgztsq46/25/2024OSA (obstructive sleep apnea)12/25/2023Osteochondral defect of talus12/25/2023COS (polycystic ovarian syndrome)12/25/2023Umbilical vdshfm8912/25/2023Vitamin D rgcdwsjxky03/25/2024Muscle spasm12/25/2023 Assessment & Plan (01/15/2024 3:11 PM EDT): Refaxed to [facility] Pain Mgmt Assessment & Plan (12/25/2023 2:24 PM EDT): Try muscle relaxer, will refer to pain mgmt [facility] Fu in 3 weeks Resolved Problems ProblemNoted DateDiagnosed DateResolved DateForeign body granuloma of soft tissue, not elsewhere classified, unspecified ankle and foot/ Vmuuyxpg97/ Assessment & Plan (01/15/2024 3:10 PM EDT): Reviewed A1c level, needs to get an appt with Marija Assessment & Plan (12/25/2023 2:25 PM EDT): Has not been to see Endo for several months Encounters DateTypeDepartmentCare NcufTaltjwxifdk22/10/2025 4:00 PM ESTOffice Visit [facility] 703 [facility] 150 [place] [phone] Abdulkadir Dominique H, DO Umbilical hernia with obstruction, without gangrene (Primary Dx)07/11/2025Travel 07/04/2025 1:45 PM ESTOffice Visit [facility] 703 [facility] [address] [place] [phone] Abdulkadir Dominique H, DO Umbilical hernia with obstruction, without gangrene (Primary Dx)07/04/2025Travel 06/27/2025 1:30 PM EDTOffice Visit [facility] 703 [facility] [address] [place] [phone] Fran Dominiqueic H, DO Umbilical hernia with obstruction, without gangrene (Primary Dx)06/27/2025 Telephone [facility] [address] [place] [address] [address] [place] [address] Abdulkadir Dominique H, DO 06/27/20251245Hkqlyp84/24/2025Orders Only [facility] [address] [place] [address] [address] [place] [address] Abdulkadir Dominique H, DO 06/21/20258733Hrhluj44/21/2025External Result Encounter [facility] External Department Unsolicited Abdulkadir Dominique, DO 04/14/2025Patient Outreach [facility] [address] [place] [address] Kenya Aguila LSW 04/14/2025bstract [facility] [address] [place] [address] Ariane Wells NP from Last 3 Months Immunizations ImmunizationAdministration DatesNext DueModerna SARS-CoV-2 Bkdzznaldtl58/20/2021 Family History Medical HistoryRelationNameCommentsDiabetesFatherBreast cancerMaternal GjpvmxoembeLmoyayaferyzMwvvivPwqmvwyiXjekZpxmycPgqbrxnuEoxuumb6MpiytUsciqp HoiydixuGagi-Kimtzgs0FavofAofi-Oxpjnw5NzmojUgqeakpw GrandmotherMotherAliveSon1 Alive Social History Tobacco UseTypesPacks/DayYears UsedDateSmoking Tobacco: Every DaySmokeless Tobacco: Never Tobacco Cessation:Ready to Q uit: Not Asked; Counseling Given: Not Answered Alcohol UseStandard Drinks/WeekCommentsNot Currently0 (1 standard drink = 0.6 oz pure alcohol)caffine: coffee: 20oz and soda: 1.5L bottle dailyPHQ-2AnswerDate RecordedPatient Health Questionnaire-2 Mvtpt7674CommentsUnknown Sex and Gender InformationValueDate RecordedSex Assigned at BirthNot on file Legal BnhSldbbu63/15/2023 9:50 PM EDTGender IdentityNot on fileSexual OrientationNot on file Last Filed Vital Signs Vital SignReadingTime TakenCommentsBlood Nycrrtfy721/8010 5:05 PM EDT Wybju8990 5:05 PM OJLNybyvxllhhy25.1 ??C (98.8 ??F)06/16/2024 5:05 PM EDTRespiratory Uggf2996 5:05 PM EDTOxygen Zxtiwbunfh35%06/16/2024 5:05 PM EDTInhaled Oxygen Concentration--Lirnud203 kg (246 lb)06/27/2025 1:28 PM EDT Jaxpue748 cm (5' 3 )06/27/2025 1:28 PM EDTBody Mass Index43.5806/27/2025 1:28 PM EDT Plan of Treatment DateTypeDepartmentCare Team (Latest Contact Info)Ckrihvcmjmu14/17/2025 4:00 PM ESTOffice Visit [facility] 703 [facility] [address] [place] [address] Abdulkadir Dominique DO 703 [facility] [address] [place] [address] Health MaintenanceDue DateLast DoneCommentsDiabetes: Retinopathy Screening 1998Pneumococcal Vaccine: Pediatrics (0 to 5 Years) and At-Risk Patients (6 to 64 Years) (1 of 2 - PCV)2007HPV/Kpctvd5906/07/2018Diabetes: Hemoglobin A1C/4Diabetes: Urine Protein Akbtjedko47/04/2024 COVID-19 Vaccine ( season)5110/21/2020, 08/01/2021, 07/11/2021ervical Cancer Hqqqufktr12/16/2027Pap Smear, 06/20/2020Influenza VaccineDiscontinued Procedures Procedure NamePriorityDate/TimeAssociated DiagnosisCommentsGLUCOSE POCT FSEZNXZIWPJJqtsefs06/21/2025 12:59 PM EDT GENERAL UMJRENUJYOeqtrhk71/21/2025 9:49 AM EDTfrom Last 3 Months Results * GLUCOSE POCT GLUCOMETERS (06/21/2025 12:59 PM EDT)ComponentValueRef RangeTest MethodAnalysis TimePerformed AtPathologist SignatureGLUCOSE POC GROYINBAMSL502 mg/dL06/21/2025 1:12 PM EDTFIRELANDSComment: Random Glucose Reference Range is dependent on time and content of last meal. Glucose of more than 200 mg/dL in a nonstressed, ambulatory subject supports the diagnosis of Diabetes Mellitus. Specimen (Source)Anatomical Location / LateralityCollection Method / Volume Collection TimeReceived TimeBlood (Blood)06/21/2025 12:59 PM EDT1 1:11 PM EDT Narrative Authorizing ProviderResult TypeResult StatusFredric H Trip DOLAB BLOOD ORDERABLESFinal ResultPerforming OrganizationAddressCity/State/ZIP CodePhone Number [facility] [address] [place] [address], * GENERAL PATHOLOGY (06/21/2025 9:49 AM EDT) Narrative Authorizing ProviderResult TypeResult StatusFredric H Itzkopalmer DOCLINISYNCFinal Result from Last 3 Months Insurance Care Teams Team MemberRelationshipSpecialtyStart DateEnd Date Channing Freire MD 112 [facility] 100 [place] [address] PCP - [facility] Cheko [facility]12/01/23 Unallocated, Noms MD Allan [address] [place] [address] PCP - GeneralFamily Binktmil86/4/25 Ariane Wells NP [address] [place] [address] Nurse PractitionerFamily Uubjnglq86/27/25
--- OUTSIDE RECORDS SUMMARY | 2025-07-12 07:29 | XMS_ITS | Patient Health Record ---
Author Organization [employer] [facility] [employer] Address [address] [place] [address] Care Team Providers Care Finish Production Manager Name Role Phone Dr. Raymond Macario Primary Care Provider Reason For Referral No Information Medications Medication SIG (Take, Route, Frequency, Duration) Notes Start Date End Date Status Ibuprofen 800 MG Tablet 1 tablet with fo od or milk as needed Orally Three times a day 2ActiveIbuprofen 800 MG Tablet1 tablet with food or milk as needed Orally Three times a day2Active Plan Of Treatment No Information Insurance Providers Payer Name Payer Address Payer Phone Subscriber Number Group Number Insured Name Patient Relationship to Insured Coverage Start Date Coverage End Date z[employer]-termed 10/01/22 [address] [place] [address] [id number] [place] OSBORNE - patient is the oljilff0309/01/2021zMEDICAID CFC after [employer]-termed 10/01/22[address] [place] [id number] PRETTY - patient is the fudcket7709/01/2021zDENTAL DQ [employer]-termed 10/01/22[address] [place] [phone] [id number], JAMIESelf - patient is the lotpuht9609/01/2021 zDental MEDICAID CFC after [employer]-termed 10/01/22[address] [place] [id number], JAMIESelf - patient is the ioghzvf54/01/2022Dental [place] DQ Terminated 08/31/24[address] [place] [id number], JAMIESelf - patient is the hoaonqv34/01/2023Dental Wrap [facility] [place] BCBS Termed [address] [place] [id number], JAMIESelf - patient is the xoihppk1810/02/2022
--- OUTSIDE RECORDS SUMMARY | 2025-07-12 07:29 | XMS_ITS | Encounter Summary ---
Author Organization [facility] Address [address] [place] [address] Care Team Providers Care Pipe Fittings Molder Name Role Phone Channing Freire MD Unavailable [phone] Ariane Wells NP Unavailable [phone] Unallocated, Noms Provider Primary Care Provi suman Encounter Details DateTypeDepartmentCare Team (Latest Contact Info)Coobocgyrkz80/10/2025Travel Social History Tobacco UseTypesPacks/DayYears UsedDateSmoking Tobacco: Every DaySmokeless Tobacco: NeverAlcohol UseStandard Drinks/WeekCommentsNot Currently0 (1 standard drink = 0.6 oz pure alcohol)caffine: coffee: 20oz and soda: 1.5L bottle daily PHQ-2AnswerDate RecordedPatient Health Questionnaire-2 Oqmkb6234 CommentsUnknownSex and Gender InformationValueDate RecordedSex Assigned at Not on fileLegal QeyNexwia11/15/2023 9:50 PM EDTGender IdentityNot on fileSexual OrientationNot on filedocumented as of this encounter Plan of Treatment DateTypeDepartmentCare Team (Latest Contact Info)Hvvpnzrayjk48/17/2025 4:00 PM ESTOffice Visit [facility] [address] [address] Abdulkadir Dominique, [address] [address] documented as of this encounter Visit Diagnoses Not on filedocumented in this encounter Additional Health Concerns AssessmentNoted TimePHQ-9 Depression Total Score: 8012/25/2023 1:28 PM EDT documented as of this encounter Care Teams Team MemberRelationshipSpecialtyStart DateEnd Date Channing Freire MD [address] [place] [address] PCP - DELANEY Still [facility]12/01/23 Unallocated, Noms MD Allan [address] [place] [address] PCP - GeneralFamily Rxquyvqz10/4/25 Ariane Wells NP [address] [place] [address] Nurse PractitionerFamily Kbqlqsxj79/27/25documented as of this encounter
--- OUTSIDE RECORDS SUMMARY | 2025-07-12 07:29 | XMS_ITS | Encounter Summary ---
Author Organization [facility] Address [address] [place] [address] Care Team Providers Care Camera Systems Engineer Name Role Phone Channing Freire MD Unavailable [phone] Ariane Wells NP Unavailable [phone] Channing Freire MD Primary Care Provider [phone] Encounter Details DateTypeDepartmentCare Team (Latest Contact Info)Okpyhodfqzy08/03/2025Travel Social History Tobacco UseTypesPacks/DayYears UsedDateSmoking Tobacco: Every DaySmokeless Tobacco: NeverAlcohol UseStandard Drinks/WeekCommentsNot Currently0 (1 standard drink = 0.6 oz pure alcohol)caffine: coffee: 20oz and soda: 1.5L bottle daily PHQ-2AnswerDate RecordedPatient Health Questionnaire-2 Aofxy5604 CommentsUnknownSex and Gender InformationValueDate RecordedSex Assigned at Not on fileLegal SgjEzqssm87/15/2023 9:50 PM EDTGender IdentityNot on fileSexual OrientationNot on filedocumented as of this encounter Plan of Treatment DateTypeDepartmentCare Team (Latest Contact Info)Nfxtrhignbr39/17/2025 4:00 PM ESTOffice Visit [facility] [address] [address] Abdulkadir Dominique DO [address] [address] documented as of this encounter Visit Diagnoses Not on filedocumented in this encounter Additional Health Concerns AssessmentNoted TimePHQ-9 Depression Total Score: 8012/25/2023 1:28 PM EDT documented as of this encounter Care Teams Team MemberRelationshipSpecialtyStart DateEnd Date Channing Freire MD 112 [facility] 100 [place] [address] (Fax) PCP - [facility]ko [facility]/09/24 Channing Freire MD 112 [facility] [address] [place] [address] PCP - GeneralFamily Yngqtnwc12/3/2511 Ariane Wells NP [address] [place] [address] Nurse PractitionerFamily Jkglojfz85/27/25documented as of this encounter
--- OUTSIDE RECORDS SUMMARY | 2025-07-12 07:29 | XMS_ITS | Encounter Summary ---
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 Name Role Phone Georges Shook MD Primary Care Provider [phone] Channing Freire MD Unavailable [phone] Ariane Wells NP Unavailable [phone] Encounter Details DateTypeDepartmentCare Team (Latest Contact Info)Bqptweuhgjf56/26/2024Clinisync Result Encounter [facility] External Department Unsolicited Provider, Generic External Data Social History Tobacco UseTypesPacks/DayYears UsedDateSmoking Tobacco: Every DaySmokeless Tobacco: NeverAlcohol UseStandard Drinks/WeekCommentsNot Currently0 (1 standard drink = 0.6 oz pure alcohol)caffine: coffee: 20oz and soda: 1.5L bottle daily PHQ-2AnswerDate RecordedPatient Health Questionnaire-2 Mcuai9674 CommentsUnknownSex and Gender InformationValueDate RecordedSex Assigned at Not on fileLegal RgjKewios30/15/2023 9:50 PM EDTGender IdentityNot on fileSexual OrientationNot on filedocumented as of this encounter Functional Status * Over the past 2 weeks, how often have you been bothered by any of the following problems?QuestionAnswerDate of AssessmentAuthorLittle interest or pleasure in doing thingsSeveral days03/16/2024 11:47 AM EDTHumbarger, Gaviota, MAFeeling down, depressed, or hopelessSeveral 03/16/2024 11:47 AM EDT Gaviota Alfaro MAPatient Health Questionnaire-2 Alpxw543 11:47 AM Gaviota Gomez MA documented as of this encounter Plan of Treatment DateTypeDepartmentCare Team (Latest Contact Info)Bqxeupsabsn22/17/2025 4:00 PM ESTOffice Visit [facility] [address] [facility] 150 [place] [phone] Abdulkadir Dominique, DO 703 [facility] 150 [place] [address] documented as of this encounter Procedures Procedure NamePriorityDate/TimeAssociated DiagnosisCommentsMR CERVICAL SPINE WO FYCWKZPT31/26/2024 12:07 AM EDT documented in this encounter Results * MR cervical spine wo contrast (02/25/2024 12:07 AM EDT)Anatomical Region LateralityModalitySpine, C-spineMagnetic ResonanceSpecimen (Source)Anatomical Location / LateralityCollection Method / VolumeCollection TimeReceived Time 02/25/2024 12:07 AM EDT Narrative 02/25/2024 12:09 AM EDT [facility] ?[address] ? [place] [address] ? Magnetic Resonance Report ? Signed ? Patient: MARILIA VERA ?MR#: [id number] ?? : 1990 ?Acct:[id number] ?? Age/Sex: 33 / F ?ADM Date: 02/24/24 ?? Loc: MRI ? Attending Dr: Rush Garcia M.D. ? Ordering Physician: Rush Garcia M.D. ?? Date of Service: 02/24/24 ?? Procedure(s): MR cervical spine wo con ?? Accession Number(s): [id number] ? cc: Ariane Wells PACKAGE WORKER; Rush Garcia M.D. ? [facility] ? [address] ? [place] [address] ? Patient Name: ?? MARILIA VERA ? MRN: [facility]:[id number] ? date: 1990 ?Sex: F ?? Assigned Patient Location: MRI ?? Current Patient Location: ? Accession/Order Number: [id number] ?? Exam Date: 02/24/2024 ??15:40 ?Report Date: [...] By: ?02/25/248 ? DD/ ? TD/TT: ? Sewer: Procedure Note Radiology, Radiologist, - 02/25/2024 [place] [address] Magnetic Resonance Report Signed Patient: MARILIA VERA LMR#: [id number] : 1990Acct:[id number] Age/Sex: 33 / FADM Date: 02/24/24 Loc: MRI Attending Dr: Rush Garcia M.D. Ordering Physician: Rush Garcia M.D. Date of Service: 02/24/24 Procedure(s): MR cervical spine wo con Accession Number(s): [id number] cc: Ariane Wells NP; Rush Garcia M.D. The [place] [address] Patient Name: MARILIA VERA MRN: [id number] date: 1990 Sex: F Assigned Patient Location: MRI Current Patient Location: Accession/Order Number: [id number] Exam Date: 02/24/2024 15:40 Report Date: 02/25/2024 [...] CORNELIA POSADA M.D. Signed By:02/25/248 DD/ TD/TT: Sewer: Authorizing ProviderResult TypeResult StatusGeneric External Data ProviderIMG MRI PROCEDURESFinal Result documented in this encounter Visit Diagnoses Not on filedocumented in this encounter Additional Health Concerns AssessmentNoted TimePHQ-9 Depression Total Score: 8012/25/2023 1:28 PM EDT documented as of this encounter Care Teams Team MemberRelationshipSpecialtyStart DateEnd Date Georges Shook MD PCP - GeneralFamily Medicine02/19/2310 Channing Freire MD [address] [address] PCP - [facility]12/01/23 Ariane Wells NP [address] [place] [address] Nurse PractitionerFamily Qwejzmnq44/27/25documented as of this encounter
--- OUTSIDE RECORDS SUMMARY | 2025-07-12 07:31 | XMS_ITS | CCD ---
Author Organization [facility] Care Team Providers Care Weaving Teacher Name Role Phone AICHHOLZ, TOOLING SUPERVISOR ARIANE Attending Unavailable AICHHOLZ, TOOLING SUPERVISOR ARIANE Admitting Unavailable AICHHOLZ, TOOLING SUPERVISOR ARIANE Primary Care Unavailable JOSE EDUARDO RIVERS V Consulting Unavailable AICHHOLZ, TOOLING SUPERVISOR ARIANE Consulting Unavailable TIMMIS, DR MEJIA Consulting Unavailable AICHHOLZ, TOOLING SUPERVISOR ARIANE Primary Care Unavailable TIMMIS, DR MEJIA Attending Unavailable TIMMIS, DR MEJIA Admitting Unavailable MAGDI BRIGGS Consulting Unavailable PAY ., DR SWANSON Admitting Unavailable PAY ., DR SWANSON Consulting Unavailable AICHHOLZ, TOOLING SUPERVISOR ARIANE Primary Care Unavailable PAY ., DR SWANSON Attending Unavailable AICHHOLZ, TOOLING SUPERVISOR ARIANE Primary Care Unavailable REINECK, DR KLAUDIA Kay Attending Unavailabl e KAITLIN, DR KLAUDIA Kay Admitting Unavailabl e REINECK, DR KLAUDIA Kay Consulting Unavailabl e JEYSON BLANTON Consulting Unavailable AICHHOLZ, TOOLING SUPERVISOR ARIANE Primary Care Unavailable GLEN ., GABINO Attending Unavailable GLEN ., GABINO Admitting Unavailable AICHHOLZ, TOOLING SUPERVISOR ARIANE Primary Care Unavailable JOSE EDUARDO RIVERS V Consulting Unavailable JEYSON BLANTON Consulting Unavailable GLEN .GABINO Consulting Unavailable PAY ., DR SWANSON Admitting Unavailable PAY ., DR SWANSON Consulting Unavailable AICHHOLZ, TOOLING SUPERVISOR ARIANE Primary Care Unavailable PAY ., DR SWANSON Attending Unavailable GERALDINE LAZAR Consulting Unavailable CORDELL ., DR DEL RIO Attending Unavailable HAY ., DR DEL RIO Admitting Unavailable AICHHOLZ, TOOLING SUPERVISOR ARIANE Primary Care Unavailable HAY ., DR DEL RIO Consulting Unavailable GLEN ., GABINO Attending Unavailable GLEN ., GABINO Admitting Unavailable AICHHOLZ, TOOLING SUPERVISOR ARIANE Primary Care Unavailable DONTRELL DIAZ Consulting Unavailable GLEN .GABINO Consulting Unavailable JOSE EDUARDO RHODES Consulting Unavailable AICHHOLZ, TOOLING SUPERVISOR ARIANE Referring Unavailable AICHHOLZ, TOOLING SUPERVISOR ARIANE Primary Care Unavailable YUKI, AHMAD Attending Unavailable YUKI, AHMAD Admitting Unavailable YUKI, AHMAD Consulting Unavailable AICHHOLZ, TOOLING SUPERVISOR ARIANE Consulting Unavailable AICHHOLZ, TOOLING SUPERVISOR ARIANE Attending Unavailable AICHHOLZ, TOOLING SUPERVISOR ARIANE Admitting Unavailable AICHHOLZ, TOOLING SUPERVISOR ARIANE Primary Care Unavailable HAYDE VAN Consulting Unavailable AICHHOLZ, TOOLING SUPERVISOR ARIANE Consulting Unavailable AICHHOLZ, TOOLING SUPERVISOR ARIANE Attending Unavailable AICHHOLZ, TOOLING SUPERVISOR ARIAEN Admitting Unavailable AICHHOLZ, TOOLING SUPERVISOR ARIANE Primary Care Unavailable AMINATA BOURGEOIS Attending Unavailable BK, AMINATA Admitting Unavailable JEYSON BLANTON Consulting Unavailable AICHHOLZ, TOOLING SUPERVISOR ARIANE Primary Care Unavailable AMINATA BOURGEOIS Consulting Unavailable AICHHOLZ, TOOLING SUPERVISOR ARIANE Primary Care Unavailable TIMMIS, DR MEJIA Consulting Unavailable TIMMIS, DR MEJIA Attending Unavailable TIMMIS, DR MEJIA Admitting Unavailable ELIDA COWAN Consulting Unava ilable AICHHOLZ, ARIANE J Primary Care Physician Riky Le Attending Unavailable Jose LEUNG, Donavan Reid Attending Unavailable Georges Shook MD Primary Care Provider [phone] Channing Freire MD Unavailable [phone] Russell AUTOMATIC CLIPPER-C, Ariane Tran Primary Care Provider [phone] Russell AUTOMATIC CLIPPER-C, Ariane Tran Attending Provider Georges Shook MD Primary Care Provider [phone] Channing Freire MD Unavailable Viktoria Montilla DO Admit Provider Viktoria Montilla DO Attending Provider Russell AUTOMATIC CLIPPER, Ariane Unavailable Georges Shook MD Primary Care Provider [phone] Channing Freire MD Primary Care Provider VIKTORIA MONTILLA Attending Unavailable VIKTORIA MONTILLA Attending Unavailable Ariane Wells Primary Care Unavailable Juan Alberto Shultz Admitting UnavailJuan Alberto Smith Attending UnavailAriane Rose Primary Care Unavailable Viktoria Montilla Admitting Unavailable Viktoria Montilla Attending Unavailable Allergies Allergy ClassificationReported Allergen(s)Allergy TypeDate of OnsetReaction(s) Facility (2 sources)predniSONE; Translations: [predniSONE]Drug Sachkin09-35-3421Dsk [facility] Repository (1 source)predniSONE; Translations: [prednisone]Drug Fvckeua80-04-6293Bizimcb speech (finding), Tremor (finding)[facility] [place] (19 sources)PrednisonePropensity to adverse pkwdoshbl43-75-8953[facility] Work Phone: (1 source)predniSONEDrug Hzocgbc39-49-2595UwzveaneeOhiohealth [facility] Medications Current Medications MedicationDrug Class(es)DatesSig (Normalized)Sig (Original)acetaminophen 325 mg / oxyCODONE hydrochloride 5 mg oral tablet (1 source)Opioid AgonistStart: 91-62-3196ghkm 1 tablet by mouth every six hours as needed for painARIPiprazole 15 mg oral tablet (20 sources)Atypical AntipsychoticStart: 06-03-2023 End: 40-92-8673mxov 1 tablet by mouth once dailyARIPiprazole (Abilify) 15 MG tablet Take 15 mg by mouth Daily 06/03/2023 ActiveStart: 46-77-6478bpgr 1 tablet by mouth once dailyaripiprazole 5 mg Tab 5 mg = 1 tab(s), Oral, Daily, Refills(s) 0 Start Date: 01/25/20 Status: Orderedbetamethasone 1 mg/ml topical cream (20 sources)CorticosteroidStart: 78-42-7085ksignulpzkmga valerate (Valisone) 0.1 % cream Indications: 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HCC)Apply to affected areas, up to twice a day when flared, do not use one the face, groin, or underarms, 30 day supply 45 g 3 05/18/2024 ActiveStart: 39-05-0452bedzrqujkfvzz dipropionate (Diprolene) 0.05 % ointment Indications: 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HCC) Apply to affected areas, up to twice a day when flared, do not use one the face, groin, orunderarms, 30 day supply 45 g 3 05/11/2024 Active busPIRone hydrochloride 10 mg oral tablet (20 sources)Start: 06-16-2024 End: 10-35-6614knhd 1 tablet by mouth in the morning, [...] 90 tablet 2 06/16/2024 ActiveStart: 06-03-2023 End: 46-08-1730hwsj 1 tablet by mouth three times dailyBuspirone 10 mg tablet Discontinued 10 MG PO Three times daily May 20, 2025 12:00am 2024 2:12pmStart: 86-13-8372vcxJIUfxf Refills(s) 0 Start Date: 02/06/22 Status: OrderedCalcium (1 source)Phosphate Binder, CalciumStart: 66-26-2868mgly 1 tablet by mouth once dailyCalcium 600+D 1 tab, Oral, Daily, Refill(s) 0 Start Date: 11/30/19 Status: Orderedcephalexin 500 mg oral capsule (3 sources)Cephalosporin AntibacterialStart: 22-11-0429cfisclywcl (Keflex) 500 MG capsule Every 8 hours 06/21/2025 Activeclobetasol propionate 0.5 mg/ml topical cream (19 sources)CorticosteroidStart: 87-66-6177fgmeveheby (Temovate) 0.05 % cream Indications: Granuloma annulare Apply topically Daily Apply to affected area once a day for up to 8 weeks. No use on face 45 g 01/15/2024 Activeclotrimazole 10 mg/ml vaginal cream (1 source)Azole AntifungalStart: 05-26-2024 End: 58-45-3490efhwdzfpbuvc (Lotrimin) 1 % vaginal cream Indications: Candidiasis of vagina Insert 1 applicator into the vagina in the evening for 7 days 45 g 05/26/2024 06/02/2024 ActiveContinuous Glucose Sensor (FreeStyle Ksenia 2 Sensor) misc (19 sources)Start: 89-45-1142Mzvrchaoze Glucose Sensor (FreeStyle Ksenia 2 Sensor) misc CHANGE SENSOR EVERY 14 DAYS 04/03/2023 Activefluconazole 150 mg oral tablet (7 sources)Azole AntifungalStart: 48-92-4128ltkbqobkqgj (Diflucan) 150 MG tablet Indications: Yeast infection Take one dose every 3 days for 3 doses 3 tablet 06/23/2024 ActiveFLUoxetine 20 mg oral capsule (20 sources)Serotonin Reuptake InhibitorStart: 02-20-2022 End: 68-50-2551odkm 1 capsule by mouth once dailyFluoxetine 40 mg capsule Discontinued 40 MG PO Daily May 20, 2025 12:00am June 0852:11pm Start: 01-06-2020 End: 41-57-0021bhal 1 capsule by mouth once dailyFLUoxetine (PROzac) 20 MG capsule Take 20 mg by mouth Daily 06/03/2023 ActiveStart: 01-06-2020 End: 05-69-5335pkmo 1 capsule by mouth once dailyFluoxetine 10 mg capsule Discontinued 10 MG PO Daily January 06, 2020 12:00am May 20, 2025 6:00pm gabapentin 100 mg oral capsule (20 sources)Anti-epileptic AgentStart: 02-02-2024 End: 28-66-0255vdbs 1 capsule by mouth in the morning, then take 1 capsule by mouth in the evening, then take 1 capsule by mouth at bedtimegabapentin (Neurontin) 100 MG capsule Take 100 mg by mouth in the morning and 100 mg in the eveningand 100 mg before bedtime. 02/02/2024 ActiveHumuLIN R KwikPen (Concentrated) (1 source)Start: 49-71-2988EbpcKXC R KwikPen (Concentrated) Refills(s) 0 Start Date: 02/06/22 Status: Ordered3 ml insulin lispro 100 unt/ml pen injector (19 sources)Insulin Analoginsulin lispro (HumaLOG KWIKPEN) 100 UNIT/ML injection as directed Subcutaneous Active3 ml insulin, regular, human 500 unt/ml pen injector (19 sources)InsulinStart: 62-73-2500YjdsVZS R U-500 KWIKPEN 500 UNIT/ML CONCENTRATED injection INJECT 80 UNITS TWICE A DAY PLUS ISS 15>150 (EXPECT DAILY DOSE 225 UNITS) 11/01/2023 Activemagnesium oxide 250 mg oral tablet (1 source)Start: 10-23-0640fday 1 tablet by mouth once dailymagnesium oxide 250 mg oral tablet 250 mg = 1 tab(s), Oral, Daily, Refills(s) 0 Start Date: 11/30/19 Status: Vjltjgh88 hr metFORMIN hydrochloride 500 mg extended release oral tablet (20 sources)BiguanideStart: 36-45-2092ljhb 2 tablets by mouth twice daily, then [...] day Non-compliance of drug therapyStart: 01-06-2020 End: 04-74-0301ixgd 1 tablet by mouth twice dailyMetformin 500 mg tablet extended release 24 hr Discontinued 2 TAB PO Twice daily January 06, 2020 12:00am June 08, 2025 2:12pmStart: 80-36-9481zpxq 2 tablets by mouth twice daily Glucophage [...] oral tablet (1 source)Muscle RelaxantStart: 11-27-2023 End: 35-58-0959ejow 1 tablet by mouth three times dailyRobaxin-750 oral tablet 1,500 mg = 2 tab(s), Oral, TID, X 3 day(s), # 18 tab(s), Refills(s) 0, Pharmacy: [facility], 160, cm, 11/27/23 12:59:00 EDT, Height/Length Dosing, 114.1, kg, 11/27/23 12:59:00 EDT, Weight Dosing Start Date: 11/27/23 Stop Date: 11/30/23 Status: Orderednaproxen 500 mg oral tablet (1 source)Nonsteroidal Anti-inflammatory DrugStart: 93-18-8122mzqt 1 tablet by mouth twice daily as needed for painNaprosyn 500 mg Tab 500 mg = 1 tab(s), Oral, BID, PRN for pain, # 20 tab(s), Refills(s) 0, Pharmacy: [facility], 160, cm, 11/27/23 12:59:00 EDT, Height/Length Dosing, 114.1, kg, 11/27/23 12: 59:00 EDT, Weight Dosing Start Date: 11/27/23 Status: Orderedpravastatin sodium 20 mg oral tablet (20 sources)HMG-CoA Reductase InhibitorStart: 01-28-2023 End: 13-74-4081suau 1 tablet by mouth in the eveningpravastatin (Pravachol) 20 MG tablet Take 20 mg by mouth in the evening 01/28/2023 ActiveTirzepatide (1 source)Start: 29-86-5356Kaloyicevqa (Mounjaro) 5 mg/0.5 mL pen injector Active 5 MG SUBCUT every week 10 02June 082:00am Uncontrolled type 2 diabetes mellitus, without long-term current use of insulin Complies with drug therapytiZANidine 4 mg oral tablet (20 sources)Central alpha-2 Adrenergic AgonistStart: 03-03-2024 End: 40-92-7719dxXHQmambv (Zanaflex) 4 MG tablet Take 4 mg by mouth 03/03/2024 Active Completed/Discontinued Medications MedicationDrug Class(es)DatesSig (Normalized)Sig (Original)[id number] 200 actuat albuterol 0.09 mg/actuat metered dose inhaler (20 sources)beta2-Adrenergic AgonistStart: 05-20-2025 End: 66-52-7059qvok 1 puff(s) by inhalation every four to [...] tablet (2 sources)gamma-Aminobutyric Acid-ergic AgonistStart: 01-06-2020 End: 55-37-4679Lqwzxhal 10 mg Tablet Discontinued 10 MG PO As Directed January 06, 2020 12:00am May 20, 2025 5:58pmcalcium carbonate 1500 mg oral tablet (2 sources)Start: 01-06-2020 End: 03-27-7108bftt 1 tablet by mouth once dailyCalcium Carbonate (Calcium 600) 600 mg calcium (1,500 mg) Tablet Discontinued 600 MG PO Daily January 06, 2020 12:00am May 20, 2025 5:58pmcholecalciferol 0.125 mg oral tablet (11 sources)Vitamin DStart: 05-20-2025 End: 16-77-2468iuae 1 tablet by mouth once dailyCholecalciferol (Vitamin D3) 125 mcg (5,000 unit) tablet Discontinued 125 MCG PO Daily May 20, 2025 12:00am June 08, 2025 2:10pmStart: 01-06-2020 End: 48-31-9058bqhz 1 tablet by mouth once dailyCholecalciferol (Vitamin D3) (Vitamin D3) 50 mcg (2,000 unit) Tablet Discontinued 2000 UNIT PO Daily January 06, 2020 12:00am May 20, 2025 5:58pmCholecalciferol 125 MCG (5000 UT) chewable tablet Chew Activecyclobenzaprine hydrochloride 10 mg oral tablet (18 sources)Muscle RelaxantStart: 05-20-2025 End: 38-60-6648pgiu 1 tablet by mouth twice daily as neededCyclobenzaprine 10 mg tablet Discontinued 10 MG PO Twice daily as needed May 20, 2025 12:00am June 08, 2025 2:10pmStart: 18-81-6521oeim 1 tablet by mouth once, then take [...] (20 sources)Sodium-Glucose Cotransporter 2 InhibitorStart: 05-20-2025 End: 37-43-7533cymh 1 tablet by mouth once dailyEmpagliflozin (Jardiance) 25 mg tablet Discontinued 25 MG PO Daily May 20, 2025 12:00am June 08, 2025 2:10pmStart: 58-18-2242Ijguquqhi Refills(s) 0 Start Date: 02/06/22 Status: OrderedMagnesium (20 sources)Start: 01-06-2020 End: 78-43-6088vuts 1 tablet by mouth once dailyMagnesium 250 mg Tablet Discontinued 250 MG PO Daily January 06, 2020 12:00am June 08, 2025 2:11pm Start: 08-61-4793rntq 1 tablet by mouth once dailymagnesium 250 MG tablet 1 (one) time each day at the same time Activeondansetron 4 mg oral tablet (2 sources)Serotonin-3 Receptor AntagonistStart: 01-06-2020 End: 02-58-1705Pugfpfdcoie Hcl 4 mg tablet Discontinued 4 MG PO As Directed as needed for Nausea January 06, 2020 12:00am June 08, 2025 2:11pmpantoprazole 40 mg delayed release oral tablet (20 sources)Proton Pump InhibitorStart: 11-30-2019 End: 98-39-2986ytsa 1 tablet by mouth once dailyPantoprazole 40 mg tablet,delayed release (DR/EC) Discontinued 40 MG PO Daily January 06, 2020 12:00am June 08, 2025 2:11pmspironolactone 50 mg oral tablet (20 sources)Aldosterone AntagonistStart: 05-20-2025 End: 55-76-2734mjjr 1 tablet by mouth once dailySpironolactone (Aldactone) 50 mg tablet Discontinued 50 MG PO Daily May 20, 2025 12:00am June 08, 2025 2:11pmtraZODone hydrochloride 50 mg oral tablet (20 sources)Serotonin Reuptake InhibitorStart: 01-06-2020 End: 19-23-7755yjtl 1 tablet by mouth once dailyTrazodone 50 mg tablet Discontinued 50 MG PO Daily January 06, 2020 12:00am May 20, 2025 6:02pm Start: 11-30-2019 End: 70-24-4849wfko 2 tablets by mouth once daily at bedtime as neededTrazodone 50 mg tablet Discontinued 100 MG PO Daily at bedtime as needed May 20, 2025 12:00am June 08, 2025 2:11pmVitamin D3 2000 intl units oral tablet (1 source)Start: 28-88-4781bayc 1 tablet by mouth once dailyVitamin D3 2000 intl units oral tablet 2,000 International_Unit = 1 tab(s), Oral, Daily, Refills(s)0 Start Date: 11/30/19 Status: Ordered Problems Active Problems Problem ClassificationProblemDateDocumented DateEpisodic/ChronicAbdominal hernia (20 sources)Umbilical hernia without obstruction or gangrene; Translations: [Umbilical hernia]Onset: 91-03-9202ZiurkelbErtorhxsg pain (5 sources)Unspecified abdominal pain; Translations: [UNSPECIFIED ABDOMINAL PAIN]Onset: 15-68-5153GypoevlbUaupwan disorders (18 sources)Anxiety disorder, unspecified; Translations: [Generalized anxiety disorder]Onset: 97-60-0113QswmwusYziukkpfr-deficit, conduct, and disruptive behavior disorders (20 sources)Attention deficit hyperactivity disorder; Translations: [Attention- deficit hyperactivity disorder, unspecified type]Onset: 166299-85-4096 ChronicDiabetes mellitus with complications (8 sources)Type 2 diabetes mellitus with hyperglycemia; 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]Onset: 16-31-4265RshbwovJafrskuc mellitus without complication (20 sources)Type 2 diabetes mellitus without complications; Translations: [Diabetes mellitus]Onset: 12-16-2022 Resolved: 268648-11-9301VyjmrkbMbpuaa infertility (20 sources)Female infertility; Translations: [Female infertility, unspecified] Onset: 424583-69-3319EubdgzjAsvdgpqrtqro diseases of female pelvic organs (4 sources)Abscess of vulva; Translations: [ABSCESS OF VULVA]Onset: 11-10-2022 EpisodicJoint disorders and dislocations; trauma-related (1 source)Unspecified internal derangement of right knee; Translations: [UNS INTERNAL DERANGEMENT RIGHT KNEE]Onset: 24-40-7997QmozvdoBcwm disorders (20 sources)Bipolar disorder; Translations: [Depressive disorder]Onset: 105319-90-6100NzcrzmzOjnqhqntwah deficiencies (20 sources)Vitamin D deficiency, unspecified; Translations: [Vitamin D deficiency]Onset: 68-88-5148OluxylxBhepa acquired deformities (1 source)Acquired deformity of ankle AND/OR ffis84-86-6546PnzflusjQverk aftercare (1 source)Other usp (current) drug therapy; Translations: [OTH INTERMEDIATE 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 THERAPY]Onset: 85-93-8247JwlkpfsqXnsyr aftercare (1 source)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; Translations: [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 DX]Onset: 27-33-0294JfiovvayWtgoo aftercare (1 source)[facility] (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; Translations: [INTERMEDIATE CURRENT USE OF INSULIN]Onset: 91-34-0282FiommvrrAvmor ear and sense organ disorders (19 sources)Conductive hearing loss, bilateral; Translations: [Conductive hearing loss, bilateral]Onset: 578776-63-7945JnwmebnRwiyy ear and sense organ disorders (2 sources)Conductive hearing loss; Translations: [Conductive hearing loss, unspecified]56-60-4213VkxoytmMvkmv endocrine disorders (1 source)Polycystic ovarian syndrome; Translations: [POLYCYSTIC OVARIAN SYNDROME]Onset: 58-28-2949ImstbwnGjbre endocrine disorders (20 sources)Polycystic ovary syndrome; Translations: [Polycystic ovarian syndrome]Onset: 471353-84-8393AozvwzaArcef non-traumatic joint disorders (4 sources)Pain in right knee; Translations: [PAIN IN RIGHT KNEE]Onset: 27-02-3960FicypvigPkhfa non-traumatic joint disorders (1 source)Shoulder joint pain; Translations: [Pain in unspecified shoulder] Onset: 81-03-4304CpawxzxjGzpic nutritional; endocrine; and metabolic disorders (1 source)Morbid (severe) obesity due to excess calories; Translations: [MORBID SEVERE OBES D/T EXCESS CASA]Onset: 57-77-2754UpehnuyAkgaz nutritional; endocrine; and metabolic disorders (1 source)Metabolic syndrome; Translations: [METABOLIC SYNDROME]Onset: 11-76-9401PsgpunhGtmyy nutritional; endocrine; and metabolic disorders (1 source)Obesity, unspecified; Translations: [OBESITY UNSPECIFIED]Onset: 83-69-6397ZaqhqbhUpktp nutritional; endocrine; and metabolic disorders (1 source)Body mass index (BMI) 40.0-44.9, adult; Translations: [BODY MASS INDEX BMI 40.0-44.9 ADULT]Onset: 29-21-1171DphtbcrVjsxk nutritional; endocrine; and metabolic disorders (1 source)Body mass index (BMI) 45.0-49.9, adult; Translations: [BODY MASS INDEX BMI 45.0-49.9 ADULT]Onset: 84-60-3286ExrgbowPpcts nutritional; endocrine; and metabolic disorders (20 sources)Body mass index 40+ - severely obese; Translations: [Body mass index (BMI) 45.0-49.9, adult]Onset: 107121-79-1318DvperpcOrmke nutritional; endocrine; and metabolic disorders (20 sources)Severe obesity; Translations: [Class 3 severe obesity due to excess calories with body mass index (BMI) of 40.0 to 44.9 in adult]Onset: 12-25-2023 93-40-7602ScwbbmzGunej nutritional; endocrine; and metabolic disorders (2 sources)Morbid obesity; Translations: [Morbid (severe) obesity due to excess calories]20-62-8224JhwpborMbham screening for suspected conditions (not mental disorders or infectious disease) (1 source)Cancer cervix screening status; Translations: [Encounter for screening for malignant neoplasm of cervix]53-30-6804ZlqksdfiIulidnpq codes; unclassified (1 source)Sleep -46-1770UwdeqldEsjlddgb codes; unclassified (20 sources)Obstructive sleep apnea syndrome; Translations: [Obstructive sleep apnea (adult) (pediatric)]Onset: 652909-02-0580PsxkqtnUusxwkjp codes; unclassified (2 sources)History of adenoidectomy; Translations: [Acquired absence of other organs]10-86-7669RrjdoknqKmuueufmghj; intervertebral disc disorders; other back problems (20 sources)Degeneration of lumbar intervertebral disc; Translations: [DDD (degenerative disc disease), lumbar]Onset: 835986-24-8128NutvgooLawylbjkw- related disorders (5 sources)Nicotine dependence, cigarettes, uncomplicated; Translations: [Nicotine dependence]Onset: 547108-51-3501EessrnvArszoljburdk (3 sources)LOW BACK PAIN, UNSPECIFIED; Translations: [LOW BACK PAIN, UNSPECIFIED]Onset: 16-64-2457Dnevklyusted (1 source)CONTACT W/AND (SUSP) EXPOS COVID-19; Translations: [CONTACT W/AND (SUSP) EXPOS COVID-19]Onset: 78-04-2705Vcblslkjkcno (1 source)COUGH, UNSPECIFIED; Translations: [COUGH, UNSPECIFIED]Onset: 72-34-1126Nfrjolsykcao (1 source)You may use alternating doses of ibuprofen (Motrin) 600 mg followed 3 hours later by 2 extra strength Tylenol's, followed 3 hours later by ibuprofen 600 mg. You may continue this repeating schedule for pain management. Past or Other Problems Problem ClassificationProblemDateDocumented DateEpisodic/ChronicAcquired foot deformities (20 sources)Osteochondral defect of talus; Translations: [Other specified acquired deformities of musculoskeletal system]Onset: 090272-50-3687 EpisodicFever of unknown origin (4 sources)Fever, unspecified; Translations: [FEVER UNSPECIFIED]Onset: 92-92-5325FwhcyhagLsqm disorders (19 sources)Mood disordersOnset: 725428-19-0093Vebwknj (20 sources)Candidiasis of vagina; Translations: [Candidiasis of vagina]Onset: 819615-03-1173GcufiimgBnvuasjfaiz chest pain (1 source)Chest pain, unspecified; Translations: [CHEST PAIN UNSPECIFIED]Onset: 71-53-6146JwpuesmyAqlpg acquired deformities (20 sources)Acquired deformity of right ankle; Translations: [Unspecified acquired deformity of right lower leg]Onset: 720231-09-3641BbwlhdjgHnfyo connective tissue disease (19 sources)Spasm; Translations: [Other muscle spasm]Onset: 310053-02-1123 EpisodicOther connective tissue disease (19 sources)Foreign body granuloma of soft tissue; Translations: [Foreign body granuloma of soft tissue, not elsewhere classified, unspecified ankle and foot] Onset: 01-15-2024 Resolved: 287942-39-2533DtbroprtFalcb female genital disorders (11 sources)Vaginal discharge; Translations: [Other specified noninflammatory disorders of vagina]Onset: 304457-32-3327XpqdemvdQxkmm inflammatory condition of skin (20 sources)Granuloma annulare; Translations: [Granuloma annulare]Onset: 224988-41-5841XfkyymavEytfo skin disorders (1 source)Hirsutism; Translations: [HIRSUTISM]Onset: 54-70-4993CrvbcqnnBrhzv skin disorders (2 sources)Eruption; Translations: [Rash and other nonspecific skin eruption] 35-24-5909QomgmmwsAmmni upper respiratory infections (1 source)Acute upper respiratory infection, unspecified; Translations: [ACUTE UP RESPIRATORY INFECTION UNS]Onset: 03-53-5257OevmzqvsRftugw media and related conditions (20 sources)Other specified disorders of Eustachian tube, left ear; Translations: [Dysfunction of bilateral eustachian tubes]Onset: 05-13-2022 EpisodicResidual codes; unclassified (20 sources)Insomnia; Translations: [Insomnia, unspecified]Onset: 12-25-2023 28-23-1305HwjbnfgvKxarriia codes; unclassified (20 sources)Tobacco user; Translations: [Tobacco use]Onset: EpisodicUnclassified (1 source)LOW BACK PAIN, UNSPECIFIED; Translations: [LOW BACK PAIN, UNSPECIFIED] Onset: 11-15-2022 Results Test NameValueInterpretationReference RangeFacilityCT abdomen pelvis w conon 83-05-3875QE abdomen pelvis w [facility] [place] [address] CT Scan Report Signed Patient: Marilia Vera MR#: [id number] : 1990 Acct:[id number] Age/Sex: 35 / F ADM Date: 07/02/25 Loc: ER Room: Type: [facility] ER Attending Dr: Copies to: Juan Alberto Shultz DO Ordering Provider: Juan Alberto Shultz DO Date of Service: 07/02/25 CT/CT abdomen pelvis w con: Left lower abdominal pain. CT ABDOMEN AND PELVIS WITH INTRAVENOUS CONTRAST: CLINICAL HISTORY: Recent umbilical hernia repair, left lower quadrant pain COMPARISON: 06/21/2025 TECHNIQUE: Spiral images were obtained through the abdomen and pelvis following the administration of intravenous contrast. This CT exam was performed using one or more following dose reduction techniques: Automated exposure control, adjustment of the mA and/or kV according to patient size, or use of iterative reconstruction technique. FINDINGS: Lung Bases: [Lung bases are clear.] Organs:Liver, gallbladder, spleen, adrenals, kidneys, and pancreas are unremarkable.[ GI: Mild retained stool the colon. No bowel obstruction. Appendix unremarkable.[ Pelvis:[Uterus unremarkable. No adnexal mass. Bladder unremarkable.] Peritoneum/Retroperitoneum:No free air or free fluid. No adenopathy.[ Abd wall/Bones:Soft tissue thickening and subcutaneous edema within the umbilical region.. Likely postsurgical seroma within the umbilicus soft tissues measuring 3.3 cm in size on the sagittal images. CT/CT abdomen pelvis w con IMPRESSION: Suspected postsurgical seroma at the operative site. No definite recurrent hernia identified. Impression dictated by: Felipe Lara M.D. 07/03/2025 7:36 AM Dictation Location: [place] [address] Transcribed By: [facility] 07/03/25 0736 Dictated By: Felipe Lara MD 07/03/25 0731 Signed By: 07/03/25 0736NoBarberton Citizens HospitalBasic Metabolic Panelon 30-70-4861Ewsgk gap [Moles/Vol]9.5 mmol/LNormal6.0-15.0The [facility] Physician GroupComment on above:Performed By: #### BMP, LACTIC, CBC, LIPASE, HEPATIC #### [facility] [address] [place] [address] USACalcium [Mass/Vol]9.3 mg/dLNormal8.6-10.3The [facility] Physician GroupComment on above:Performed By: #### BMP, LACTIC, CBC, LIPASE, HEPATIC #### [facility] [address] [place] [address] USAChloride [Moles/Vol]104 mmol/HVqgufd80-153Kzw [facility] Physician GroupComment on above:Performed By: #### BMP, LACTIC, CBC, LIPASE, HEPATIC #### [facility] [address] [place] [address] USACO2 [Moles/Vol]27.2 mmol/NLkbvhi65.0-31.0The [facility] Physician GroupComment on above:Performed By: #### BMP, LACTIC, CBC, LIPASE, HEPATIC #### [facility] [address] [place] [address] USACreatinine [Mass/Vol]0.81 mg/dLNormal0.60-1.20The [facility] Physician GroupComment on above:Performed By: #### BMP, LACTIC, CBC, LIPASE, HEPATIC #### [facility] [address] [place] [address] USACreatinine Clr Calc Gvkspmpr520.05NormalThe [facility] Physician GroupComment on above:Performed By: #### BMP, LACTIC, CBC, LIPASE, HEPATIC #### [facility] [address] [place] [address] USAGFR/1.73 sq M.predicted MDRD (S/P/Bld) [Vol rate/Area] mL/min/{1.73_m2}NormalThe [facility] Physician GroupComment on above:Performed By: #### BMP, LACTIC, CBC, LIPASE, HEPATIC #### [facility] [address] [place] [address] USAGlucose [Mass/Vol]127 mg/gZQpml02-368Wtz [facility] Physician GroupComment on above:Result Comment: Random Glucose Reference Range is dependent on time and content of last meal. Glucose of more than 200 mg/dL in a nonstressed, ambulatory subject supports the diagnosis of Diabetes Mellitus. ADA recommended reference rangePerformed By: #### BMP, LACTIC, CBC, LIPASE, HEPATIC #### [facility] [address] [place] [address] USAPotassium [Moles/Vol]3.7 mmol/LNormal3.5-5.1The [facility] Physician GroupComment on above:Performed By: #### BMP, LACTIC, CBC, LIPASE, HEPATIC #### [facility] [address] [place] [address] USASodium [Moles/Vol]137 mmol/TJrldph963-228Oxp [facility] Physician GroupComment on above:Performed By: #### BMP, LACTIC, CBC, LIPASE, HEPATIC #### [place] [address] USAUrea nitrogen [Mass/Vol]17 mg/dLNormal7-25The [facility] Physician GroupComment on above:Performed By: #### BMP, LACTIC, CBC, LIPASE, HEPATIC #### [place] [address] USAComplete Blood Count Auto Diffon 78-41-3004Qmcpticnx (Bld) [#/Vol]0.0 10*3/uLNormal0.0-0.2The [facility] Physician GroupComment on above: Result Comment: PERFORMED BY: [place] [address] PATHOLOGIST MODEL AND DYE PERSON RALPH SUN M.D.Performed By: #### BMP, LACTIC, CBC, LIPASE, HEPATIC #### [place] [address] USABasophils/100 WBC (Bld)0.3 %Normal.The [facility] Physician GroupComment on above:Performed By: #### BMP, LACTIC, CBC, LIPASE, HEPATIC #### [place] [address] USAEosinophils (Bld) [#/Vol]0.1 10*3/uLNormal0.0-0.45The [facility] Physician GroupComment on above:Performed By: #### BMP, LACTIC, CBC, LIPASE, HEPATIC #### [place] [address] USAEosinophils/100 WBC (Bld)1.2 %Normal.The [facility] Physician GroupComment on above:Performed By: #### BMP, LACTIC, CBC, LIPASE, HEPATIC #### [place] [address] USAErythrocyte distribution width (RBC) [Ratio]13.9 %Normal 11.9-15.3The [facility] Physician GroupComment on above:Performed By: #### BMP, LACTIC, CBC, LIPASE, HEPATIC #### [place] [address] USAHematocrit (Bld) [Volume fraction]39.4 %Dpytjj38.0-46.4The [facility] Physician GroupComment on above:Performed By: #### BMP, LACTIC, CBC, LIPASE, HEPATIC #### [place] [address] USAHemoglobin (Bld) [Mass/Vol]13.4 g/qPOqprox00.8-15.4The [facility] Physician GroupComment on above:Performed By: #### BMP, LACTIC, CBC, LIPASE, HEPATIC #### [place] [address] USALymphocytes (Bld) [#/Vol]4.2 10*3/uLNormal1.00-4.8The [facility] Physician GroupComment on above:Performed By: #### BMP, LACTIC, CBC, LIPASE, HEPATIC #### [place] [address] USALymphocytes/100 WBC (Bld)38.8 %Normal.The [facility] Physician GroupComment on above:Performed By: #### BMP, LACTIC, CBC, LIPASE, HEPATIC #### [place] [address] USAMCH (RBC) [Entitic mass]27.2 lkWflfcg37.7-34.3The [facility] Physician GroupComment on above:Performed By: #### BMP, LACTIC, CBC, LIPASE, HEPATIC #### [place] [address] USAMCV (RBC) [Entitic vol]79.9 uEZbd47-625Vtb [facility] Physician GroupComment on above:Performed By: #### BMP, LACTIC, CBC, LIPASE, HEPATIC #### [place] [address] USAMean Corpuscular HGB Conc34.1 g/yVBffepv80.0-35.0The [facility] Physician GroupComment on above:Performed By: #### BMP, LACTIC, CBC, LIPASE, HEPATIC #### [place] [address] USAMonocytes (Bld) [#/Vol]0.7 10*3/uLNormal0.0-0.8The [facility] Physician GroupComment on above:Performed By: #### BMP, LACTIC, CBC, LIPASE, HEPATIC #### [place] [address] USAMonocytes/100 WBC (Bld)19.87 %Normal0.00-20.00The [facility] Physician GroupComment on above:Performed By: #### BMP, LACTIC, CBC, LIPASE, HEPATIC #### [place] [address] USAMonocytes/100 WBC (Bld)6.6 %Normal.The [facility] Physician GroupComment on above:Performed By: #### BMP, LACTIC, CBC, LIPASE, HEPATIC #### [place] [address] USANeutrophils (Bld) [#/Vol]5.7 10*3/uLNormal1.8-7.7The [facility] Physician GroupComment on above:Performed By: #### BMP, LACTIC, CBC, LIPASE, HEPATIC #### [place] [address] USANeutrophils/100 WBC (Bld)53.1 %Normal.The [facility] Physician GroupComment on above:Performed By: #### BMP, LACTIC, CBC, LIPASE, HEPATIC #### [place] [address] USANRBC%0.1 /100{WBC}Normal0-0.5The [facility]ician Group Comment on above:Performed By: #### BMP, LACTIC, CBC, LIPASE, HEPATIC #### [place] [address] USAPlatelet mean volume (Bld) [Entitic vol]8.8 fLNormal 6.3-10.7The [facility] Physician GroupComment on above:Performed By: #### BMP, LACTIC, CBC, LIPASE, HEPATIC #### [address] [place] [address] USAPlatelets (Bld) [#/Vol]278 10*3/lIRlrgtj902-011Xtz [facility] Physician GroupComment on above:Performed By: #### BMP, LACTIC, CBC, LIPASE, HEPATIC #### [place] [address] USARBC (Bld) [#/Vol]4.93 10*6/uLNormal3.60-5.00The [facility] Physician GroupComment on above:Performed By: #### BMP, LACTIC, CBC, LIPASE, HEPATIC #### [place] [address] USAWBC (Bld) [#/Vol]10.8 10*3/uLNormal3.8-11.6The [facility] Physician GroupComment on above:Performed By: #### BMP, LACTIC, CBC, LIPASE, HEPATIC #### [place] [address] USAWhite Blood Count10.8 [CFU]/mLNormal3.8-11.6The [facility] Physician GroupComment on above:Performed By: #### BMP, LACTIC, CBC, LIPASE, HEPATIC #### [place] [address] USADipstick and Microscopicon 59-65-1370Fupidrzwwp (U)Cloudy Critically abnormalClearThe [facility] Physician GroupComment on above:Order Comment: Name Collection Type:: Clean-Voided MidstreamPerformed By: #### UHCG, CUU, ADDONUAPLUS #### [place] [address] USABacteria,UrineNone SeenNormalNone SeenThe [facility] Physician GroupComment on above:Order Comment: Name Collection Type:: Clean- Voided MidstreamPerformed By: #### UHCG, CUU, ADDONUAPLUS #### [place] [address] USABilirubin,UrineNegativeNormalNegativeThe [facility] Physician GroupComment on above:Order Comment: Name Collection Type:: Clean- Voided MidstreamPerformed By: #### UHCG, CUU, ADDONUAPLUS #### [facility] [address] [place] [address] USAColor (U)YellowNormalYellowThe [facility] Physician Group Comment on above:Order Comment: Name Collection Type:: Clean-Voided Midstream Performed By: #### UHCG, CUU, ADDONUAPLUS #### [facility] [address] [place] [address] USAGlucose Ql (U)500 mg/dLNormalNormalThe [facility] Physician GroupComment on above:Order Comment: Name Collection Type:: Clean-Voided MidstreamPerformed By: #### UHCG, CUU, ADDONUAPLUS #### [facility] [address] [place] [address] USAHyaline Casts,Eugav8-1Vakkip1-7Ygu [facility] Physician GroupComment on above:Order Comment: Name Collection Type:: Clean-Voided MidstreamPerformed By: #### UHCG, CUU, ADDONUAPLUS #### [facility] [address] [place] [address] USAKetones Ql (U)NegativeNormalNegativeBroward Health Imperial Point Physician GroupComment on above:Order Comment: Name Collection Type:: Clean- Voided MidstreamPerformed By: #### UHCG, CUU, ADDONUAPLUS #### [facility] [address] [place] [address] USALeukocyte esterase Test strip Ql (U)1+NormalNegativeThe [facility] Physician GroupComment on above:Order Comment: Name Collection Type:: Clean-Voided MidstreamPerformed By: #### UHCG, CUU, ADDONUAPLUS #### [facility] [address] [place] [address] USAMucus,UrineRareNormalThe [facility] Physician GroupComment on above:Order Comment: Name Collection Type:: Clean-Voided MidstreamPerformed By: #### UHCG, CUU, ADDONUAPLUS #### [place] [address] USANitrite,UrineNegativeNormalNegativeThe [facility] Physician GroupComment on above:Order Comment: Name Collection Type:: Clean-Voided MidstreamPerformed By: #### UHCG, CUU, ADDONUAPLUS #### [place] [address] USAOccult Blood,Urine3+NormalNegativeThe [facility] Physician GroupComment on above:Order Comment: Name Collection Type:: Clean-Voided MidstreamPerformed By: #### UHCG, CUU, ADDONUAPLUS #### [place] [address] USApH (U)6.5 [pH]Normal5.0-9.0The [facility] Comment on above:Order Comment: Name Collection Type:: Clean-Voided Midstream Performed By: #### UHCG, CUU, ADDONUAPLUS #### [place] [address] USAProtein,UrineNegativeNormalNegativeThe [facility] Physician GroupComment on above:Order Comment: Name Collection Type:: Clean-Voided MidstreamPerformed By: #### UHCG, CUU, ADDONUAPLUS #### [place] [address] USARBC,UrineInnumerableNormal0-4The [facility] Comment on above:Order Comment: Name Collection Type:: Clean-Voided Midstream Performed By: #### UHCG, CUU, ADDONUAPLUS #### [place] [address] USASpecificy Newport,Urine1.658Dkvwft2.001-1.030The [facility] Physician GroupComment on above:Order Comment: Name Collection Type:: Clean- Voided MidstreamPerformed By: #### UHCG, CUU, ADDONUAPLUS #### [place] [address] USASquamous Epithelial Cell,Bvtfv8-9Gcauvo1-0Okf [facility] Physician GroupComment on above:Order Comment: Name Collection Type:: Clean- Voided MidstreamPerformed By: #### UHCG, CUU, ADDONUAPLUS #### [place] [address] USAUrobilinogen,UrineNormalNormalNormMercy Health St. Elizabeth Youngstown Hospitale [facility] Physician GroupComment on above:Order Comment: Name Collection Type:: Clean- Voided MidstreamPerformed By: #### UHCG, CUU, ADDONUAPLUS #### [place] [address] USAWBC CLUMP, UrineRareNormalNone SeenThe [facility] Physician GroupComment on above:Order Comment: Name Collection Type:: Clean-Voided MidstreamPerformed By: #### UHCG, CUU, ADDONUAPLUS #### [place] [address] USAWBC,Ikffz9-1Nlcbbz0-2Yud [facility] Physician GroupComment on above:Order Comment: Name Collection Type:: Clean-Voided MidstreamPerformed By: #### UHCG, CUU, ADDONUAPLUS #### [place] [address] USAHCG,Urineon 57-60-0360Nism HCG ( test) Ql (U) NegativeNormGolisano Children's Hospital of [facility] Physician GroupComment on above:Order Comment: Name Collection Type:: Clean-Voided MidstreamResult Comment: PERFORMED BY: [place] [address] PATHOLOGIST MODEL AND DYE PERSON RALPH SUN M.D.Performed By: #### UHCG, CUU, ADDONUAPLUS #### [place] [address] USAHepatic Panelon 97-72-0796Nesxeuz [Mass/Vol]4.3 g/dLNormal 3.5-5.7The [facility] Physician GroupComment on above:Performed By: #### BMP, LACTIC, CBC, LIPASE, HEPATIC #### [place] [address] USAAlbumin/Globulin [Mass ratio]1.3 {ratio}NormalThe [facility] Physician GroupComment on above:Performed By: #### BMP, LACTIC, CBC, LIPASE, HEPATIC #### [facility] [address] [place] [address] USAALP [Catalytic activity/Vol]67 U/SXizyja27-955Lne [facility] Physician GroupComment on above:Performed By: #### BMP, LACTIC, CBC, LIPASE, HEPATIC #### [facility] [address] [place] [address] USAALT [Catalytic activity/Vol]19 U/LNormal7-52The [facility] Physician GroupComment on above:Performed By: #### BMP, LACTIC, CBC, LIPASE, HEPATIC #### [facility] [address] [place] [address] USAAST [Catalytic activity/Vol]13 U/SZbfdqs88-96Fhi [facility] Physician GroupComment on above:Performed By: #### BMP, LACTIC, CBC, LIPASE, HEPATIC #### [place] [address] USABilirubin [Mass/Vol]0.4 mg/dLNormal0.3-1.0The [facility] Physician GroupComment on above:Performed By: #### BMP, LACTIC, CBC, LIPASE, HEPATIC #### [place] [address] USABilirubin,Indirect0.4 mg/dLNoNovant Health / NHRMC Physician GroupComment on above:Performed By: #### BMP, LACTIC, CBC, LIPASE, HEPATIC #### [place] [address] USABilirubin.indirect [Mass/Vol]0.00 mg/dLLow0.03-0.18The [facility] Physician GroupComment on above:Result Comment: If the DBIL is less than 0.1, IBIL is not able to be calculated.Performed By: #### BMP, LACTIC, CBC, LIPASE, HEPATIC #### [place] [address] USAGlobulin (S) [Mass/Vol]3.2 g/dLNoNovant Health / NHRMC Physician GroupComment on above:Performed By: #### BMP, LACTIC, CBC, LIPASE, HEPATIC #### [facility] [address] [place] [address] USAProtein [Mass/Vol]7.5 g/dLNormal6.4-8.9The [facility] Physician GroupComment on above:Performed By: #### BMP, LACTIC, CBC, LIPASE, HEPATIC #### [place] [address] USALactic Acidon 00-14-6856Vuczzin [Moles/Vol]0.9 mmol/L Normal0.5-1.9The [facility] Physician GroupComment on above:Result Comment: Lactic Acid reference range has been updated to 0.5 ? 1.9 mmol/L and the critical range of 2.0 or greater. PERFORMED BY: [place] [address] PATHOLOGIST MODEL AND DYE PERSON RALPH SUN M.D.Performed By: #### BMP, LACTIC, CBC, LIPASE, HEPATIC #### [place] [address] USALipaseon 61-12-7032Wgndpx [Catalytic activity/Vol]37.0 U/L Lgonun85.0-82.0The [facility] Physician GroupComment on above:Result Comment: PERFORMED BY: [place] [address] PATHOLOGIST MODEL AND DYE PERSON RALPH SUN M.D.Performed By: #### BMP, LACTIC, CBC, LIPASE, HEPATIC ####[facility] [place] [address] USAUrine Cultureon 61-73-3530Royigrrr identified Cx Nom (U)>100,000 colonies/ml mixed bacterial skin contaminants including mixed gram negative bacilli - 2 Days PERFORMED BY: [place] [address] PATHOLOGIST MODEL AND DYE PERSON RALPH SUN M.D.NormalThe [facility] Physician [facility] HospitalComment on above: Performed By: #### UHCG, CUU, ADDONUAPLUS #### [place] [address] USABasophils Auto (Bld) [#/Vol]Ordered By: Ariane Wells on 06-59-8510Qajgalgrc (Bld) [#/Vol]0.0 10 3/uL0.0-0.1FLancaster Municipal HospitalBasophils/100 WBC Auto (Bld)Ordered By: Ariane Wells on 06-21-2025 Basophils/100 WBC (Bld)0.4 %0.2-2.0[facility] HospitalCapillary blood glucose measurement by glucometer (mass/volume)Ordered By: Viktoria Montilla on 97-30-0478Vlbgkec [Mass/Vol]145 mg/dLNormalOhiohealth Hardin Memorial HospitalComment on above:Random Glucose Reference Range is [...] the diagnosis of Diabetes Mellitus. PERFORMED BY: [facility] [address] [facility] [address] PATHOLOGIST MODEL AND DYE PERSON RALPH SUN M.D.Performed By: #### GLULS #### Point of Care testing ,Eosinophils/100 WBC Auto (Bld)Ordered By: Ariane Wells on 06-21-2025 Eosinophils/100 WBC (Bld)1.3 %0.9-7.0[facility] Erythrocyte distribution width Auto (RBC) [Ratio]Ordered By: Ariane Wells on 46-54-3157Pebgsfoxxdb distribution width (RBC) [Ratio]13.0 %11.0-15.0[facility] Memorial HospitalGLUCOSE POCT GLUCOMETERSon 11-56-5109Rzvpwvw [Mass/Vol] 145 mg/dLNOOR HealthcareComment on above:Random Glucose Reference Range is dependent on time and content of last meal. Glucose of more than 200 mg/dL in a nonstressed, ambulatory subject supports the diagnosis of Diabetes Mellitus. NOMS HealthcareGlobulin Calc (S) [Mass/Vol]Ordered By: Ariane Wells on 60-10-5134Mohqulso (S) [Mass/Vol]4.0 g/dLOhiohealth Hardin Memorial Hospital Glomerular filtration rate (GFR) estimation in non- AmericanOrdered By: Ariane Wells on 54-21-0177SKX/1.73 sq M.predicted among non-blacks MDRD (S/P/Bld) [Vol rate/Area]mL/min/{1.73_m2}>=60 mL/min/1.73m 2FLancaster Municipal HospitalHematocrit Auto (Bld) [Volume fraction]Ordered By: Ariane Wells on 67-99-0398Apdthpmmok (Bld) [Volume fraction]40.3 %36.0-48.0[facility] HospitalHemoglobin [Mass/volume] in BloodOrdered By: Ariane Wells on 39-53-2553Iyhxsgugbv (Bld) [Mass/Vol]13.7 g/dL12.0-16.0[facility] Memorial HospitalLon 06-21-2025L Specimen: [id number] Received: 06/21/25 Status: CARLITO Mendoza Num: [id number] Spec Type: Surgical Subm Dr: Viktoria Montilla, DO Tissues: A Hernia Sac (HERNIA SAC) Procedures: Serina TUCKER/Bere L2 Age/ Patient Sex Location Account Attending Physician Marilia Vera 35/F 4P [id number] Viktoria Montilla, DO SPEC NUM: [id number] RECD: 06/21/25 STATUS: CARLITO MENDOZA NUM: [id number] KATHRIN: 06/21/[address] [facility] [address]: Viktoria Montilla DO ENTERED: 06/21/[address]: DEVEN TYPE: Surgical DEPT: S ENTERED BY: [id number] RECV BY: [id number] ORDERED: CAITLIN, Gross/Micro L2 ORDERED: CAITLIN, Gross/Micro L2 Pathological [...] reveal martines-pink, glistening and uniform cut surfaces. Electrocardiogram Technician sections are submitted in a single cassette. (1, , [id number]) Microscopic Description Microscopic examination is performed. Specimen: [id number] Received: 06/21/25 Status: CARLITO Mendoza Num: [id number] Spec Type: Surgical Subm Dr: Viktoria Montilla DO Tissues: A Hernia Sac (HERNIA SAC) Procedures: Serina TUCKER/Bere L2 Patient: Marilia Vera [id number] (Continued) Specimen: [id number] Received: 06/21/25 (Continued) Signed (signature on file) Iraj Shultz MD 06/23/25 1421 Specimen: [id number] Received: 06/21/25 Status: CARLITO Mendoza Num: [id number] Spec Type: Surgical Subm Dr: Viktoria Montilla DO Tissues: A Hernia Sac (HERNIA SAC) Procedures: Kae TUCKER Patient: Marilia Vera [id number] (Continued) Specimen: [id number] Received: 06/21/25 (Continued) CPT Codes 24449 Specimen: [id number] Received: 06/21/25 Status: CARLITO Mendoza Num: [id number] Spec Type: Surgical Subm Dr: Viktoria Montilla DO Tissues: A Hernia Sac (HERNIA SAC) Procedures: Kae TUCKER Patient: Marilia Vera [id number] (Continued) Signed (signature on file) Iraj Shultz MD 06/23/25 1421Normal [facility] Physician GroupLaboratory - Chemistry and Chemistry - challenge Ordered By: Jennifer Minaya on 29-71-9050Buchwbnde Ql (U)NegativeNEGATIVEOhiohealth Hardin Memorial HospitalGlucose (U) [Mass/Vol]100 mg/dLAbnormalNEGATIVEOhiohealth Hardin Memorial HospitalKetones Ql (U)TRACE mg/dLAbnormalNEGATIVEOhiohealth Hardin Memorial HospitalpH (U)5.5 [pH]5.0-9.0[facility] Specific gravity (U) [Rel density]>=1.938Urlwjdjc5.005-1.025Ohio[facility] Memorial HospitalUrobilinogen Qn (U)0.2 {Oxana'U}/dL0.2-1.0[facility] HospitalLactate [Moles/Vol]0.6 mmol/L0.4-2.0[facility] HospitalLaboratory - Chemistry and Chemistry - challengeOrdered By: Ariane Wells on 43-62-3252Fojuvkp [Mass/Vol]3.7 g/dL3.4-5.0[facility] ALP [Catalytic activity/Vol]72 U/Q02-909Ucodnkafw Regional Medical CenterALT [Catalytic activity/Vol]22 U/X12-95SdikjglczOhiohealth Hardin Memorial HospitalAST [Catalytic activity/Vol]13 U/GHry20-58ZphodxbgoOhiohealth Hardin Memorial HospitalBilirubin [Mass/Vol]0.4 mg/dL0.2-1.0[facility] HospitalCalcium [Mass/Vol]9.1 mg/dL8.5-10.1FLancaster Municipal HospitalChloride [Moles/Vol]103 mmol/L 98-107Ohio[facility] Memorial HospitalCO2 [Moles/Vol]26.0 mmol/L21.0-32.0 [facility] HospitalCreatinine [Mass/Vol]0.62 mg/dL0.55-1.02 [facility] HospitalGFR/1.73 sq M.predicted MDRD (S/P/Bld) [Vol rate/Area]mL/min/{1.73_m2}>=60 mL/min/1.73m 2FLancaster Municipal Hospital Glucose [Mass/Vol]198 mg/cNVvmy32-359FvznhthfmOhiohealth Hardin Memorial HospitalPotassium [Moles/Vol]4.2 mmol/L3.5-5.1FLancaster Municipal HospitalProtein [Mass/Vol] 7.7 g/dL6.4-8.2FCleveland Clinic Avon Hospitalodium [Moles/Vol]138 mmol/L 136-145Ohio[facility] Memorial HospitalUrea nitrogen [Mass/Vol]17.0 mg/dL 7.0-18.0[facility] Memorial HospitalUrea nitrogen/Creatinine [Mass ratio] 27.4 mg/mgOhiohealth Hardin Memorial HospitalLaboratory - Hematology and Cell countsOrdered By: Ariane Wells on 03-02-6466Jcpkolhx granulocytes/100 WBC (Bld) 0.2 %0.0-0.5FLancaster Municipal HospitalLaboratory - Specimen information Ordered By: Jennifer Minaya on 54-27-6653Vkzcnhwuol (U)CLEARCLEARFLancaster Municipal HospitalColor (U)YELLOWYELLOWOhiohealth Hardin Memorial HospitalLaboratory - UrinalysisOrdered By: Jennifer Minaya on 19-36-5711Sjhcxamqe esterase Test strip Ql (U)NegativeNEGATIVEOhiohealth Hardin Memorial HospitalNitrite Ql (U)Negative NEGATIVEOhiohealth Hardin Memorial HospitalProtein Ql (U)NegativeNEG/TRACE [facility] HospitalLeukocytes [#/volume] corrected for nucleated erythrocytes in Blood by Automated counOrdered By: Ariane Wells on 06-21-2025 WBC corrected for nucl RBC Auto (Bld) [#/Vol]9.8 10 3/uL4.0-11.0[facility] Memorial HospitalLymphocytes Auto (Bld) [#/Vol]Ordered By: Ariane Wells on 51-57-5981Lipjftdmwqg (Bld) [#/Vol]3.0 10 3/uL1.2-3.8Ohio[facility] Memorial HospitalLymphocytes/100 WBC Auto (Bld)Ordered By: Ariane Wells on 49-21-1728Inicpssgwvg/100 WBC (Bld)30.3 %20.5-60.0[facility] Memorial HospitalMCH Auto (RBC) [Entitic mass]Ordered By: Ariane Wells on 79-65-8820XFX (RBC) [Entitic mass]27.5 pg26.7-34.0[facility] Memorial HospitalMCHC Auto (RBC) [Mass/Vol]Ordered By: Ariane Wells on 34-92-7811YEPW (RBC) [Mass/Vol]34.0 g/dL29.9-35.2FLancaster Municipal HospitalMCV Auto (RBC) [Entitic vol] Ordered By: Ariane Wells on 43-10-7692FXW (RBC) [Entitic vol]80.8 fLLow 81.0-99.0[facility] Memorial HospitalMonocytes Auto (Bld) [#/Vol]Ordered By: Ariane Wells on 80-66-8785Ggkkmullr (Bld) [#/Vol]0.6 10 3/uL0.3-0.8 [facility] HospitalMonocytes/100 WBC Auto (Bld)Ordered By: Ariane Wells on 14-94-7004Apehowbzg/100 WBC (Bld)6.5 %1.7-12.0[facility] Medical CenterNeutrophils Auto (Bld) [#/Vol]Ordered By: Ariane Wells on 12-12-3105Yopuxqydvuz (Bld) [#/Vol]6.0 10 3/uL1.4-6.5FLancaster Municipal HospitalNeutrophils/100 WBC Auto (Bld)Ordered By: Ariane Wells on 06-21-2025 Neutrophils/100 WBC (Bld)61.3 %43.0-75.0[facility] HospitalNo Panel InformationOrdered By: Jennifer Minaya on 90-53-0706Nabhq Microscopic ReviewNO [facility] HospitalUrine Occult BloodNegativeNEGATIVEOhiohealth Hardin Memorial HospitalHuman Chorionic Gonadotropin, QualNegativeNEGATIVE [facility] HospitalNo Panel InformationOrdered By: Ariane Wells on 42-27-1038Jizmhfoiuyf # (Auto)0.1 10 3/uL0.0-0.7FLancaster Municipal HospitalImmature Granulocyte # (Auto)0.02 10 3/uL0.00-0.03[facility] HospitalPlatelet mean volume Auto (Bld) [Entitic vol]Ordered By: Ariane Wells on 66-88-9829Kvopztzj mean volume (Bld) [Entitic vol]11.1 fL9.5-13.5 [facility] HospitalPlatelets Auto (Bld) [#/Vol]Ordered By: Ariane Wells on 76-82-6065Cuplouzrk (Bld) [#/Vol]257 10 3/qB784-316CxiibakjhOhiohealth Hardin Memorial HospitalRBC Auto (Bld) [#/Vol]Ordered By: Ariane Wells on 68-52-9596ECT (Bld) [#/Vol]4.99 10 6/uL4.20-5.40[facility] Miamisburgerum or plasma albumin/globulin mass ratioOrdered By: Ariane Wells on 99-53-2097Ogljpiv/Globulin [Mass ratio]0.9 {ratio}[facility] Miamisburgerum or plasma anion gap determinationOrdered By: Ariane Wells on 00-55-3314Wkswr gap [Moles/Vol]13.2 mmol/LFLancaster Municipal HospitalHbA1c HPLC (Bld) [Mass fraction]Ordered By: Ariane Wells on 60-22-9658OlE4q (Bld) [Mass fraction]11.6 %[facility] HospitalIGP,APTIMA HPV,AGE GDLNon 70-91-3266TFR GDLN ACOG TESTINGNote.NOMS HealthcareComment on above:TESTS RESULT FLAG UNITS REF RANGE LAB Clinician Provided Cytology Information Source.............Cervix;Endocervix No. of containers..01 ThinPrep Vial Age Algo ACOG Cristine... FLAG LEGEND: L-Low Normal,H-High Normal,LL-Alert Low,HH-Alert High <-Panic Low,>-Panic High,A-Abnormal,AA-Critical Abnormal Performed at: 01 =[address] [place] [address] Francesca Alonzo MD, HPV APTIMANegativeNegativeNOMS HealthcareComment on above:This nucleic acid amplification test detects fourteen high- risk HPV types (16,18,31,33,35,39,45,51,52,56,58,59,66,68) without differentiation. Performed at: =[address] [id number] Farm Equipment Engineer: Francesca Alonzo MD, Phone: [phone] Performed at: WB - [facility] [address], [place] [id number] Farm Equipment Engineer: Francesca Alonzo MD, Phone: [phone] IGP, APTIMA HPV, RFX 16/18,45Note.NOMS HealthcareComment on above:TESTS RESULT FLAG UNITS REF RANGE LAB DIAGNOSIS: 02 NEGATIVE FOR INTRAEPITHELIAL LESION OR MALIGNANCY. Specimen adequacy: 02 Satisfactory for evaluation. No endocervical component is identified. Performed by: 02 Dorothy Smith, Room Worker ([facility]) . 02 Note: Note 02 The Pap [...] High <-Panic Low,>-Panic High,A-Abnormal,AA-Critical Abnormal Performed at: [facility] [address] [place] [address] Francesca Alonzo MD, BROOM-ALONE CERVIX ENDOCERVIX CLINISYNCNOMS HealthcareUPPER RESPIRATORY CULTUREon 66-73-4289ISBFJ RESPIRATORY CULTURE Upper Respiratory Culture Organism: Beta hemolytic Strep group B : NOMS HealthcareUPPER RESPIRATORY CULTURE*ABNORMAL*NOMS HealthcareUPPER RESPIRATORY CULTURELight growthNOOR HealthcareUPPER RESPIRATORY CULTURE Penicillin and ampicillin are drugs of choice forNOOR HealthcareUPPER RESPIRATORY CULTUREtreatment of beta-hemolytic streptococcal infections.NOMS HealthcareUPPER RESPIRATORY CULTURESusceptibility testing of penicillins and other beta-[facility] HealthcareUPPER RESPIRATORY CULTURElactam agents approved by the FDA for treatment ofNOOR HealthcareUPPER RESPIRATORY CULTUREbeta-hemolytic streptococcal infections need not beNOMS HealthcareUPPER RESPIRATORY CULTURE performed routinely because nonsusceptible isolatesNOOR HealthcareUPPER RESPIRATORY CULTUREare extremely rare in any beta-hemolytic streptococcusNOOR HealthcareUPPER RESPIRATORY CULTUREand have not been reported for Streptococcus pyogenesNOOR HealthcareUPPER RESPIRATORY CULTURE(group A). (CLSI)[facility] Healthcare UPPER RESPIRATORY CULTUREBeta hemolytic Strep group BNOMS HealthcareUPPER RESPIRATORY CULTURE O:BETAGB Isolated [facility] HealthcareUPPER RESPIRATORY CULTUREPerformed at: [facility] LabcoBryn Mawr Rehabilitation HospitalUPPER RESPIRATORY [id number] [place], [place] [id number] Alexius HospitalPER RESPIRATORY CULTURELab Director: Codey Sibley PhD, Phone: [phone] Genevieve County Memorial HospitalINISYNUnion Medical CenterNo [facility] Informationon 30-17-3630Akgm of biopsy: punch Informed consent: discussed and [...] used: 2 Specimen sent for: H&E Photo [facility] [place] Cervical spine WO contraston 84-44-0175[place] [address] Magnetic Resonance Report Signed Patient: MARILIA VERA MR#: [id number] : 1990 Acct:[id number] Age/Sex: 33 / F ADM Date: 02/24/24 Loc: MRI Attending Dr: Donavan Garcia M.D. Ordering Physician: Donavan Garcia M.D. Date of Service: 02/24/24 Procedure(s): MR cervical spine wo con Accession Number(s): [id number] cc: Ariane Wells NP; Donavan Garcia M.D. [place] [address] Patient Name: MARILIA VERA MRN: [facility]:[id number] date: 1990 Sex: F Assigned Patient Location: MRI Current Patient Location: Accession/Order Number: [id number] Exam Date: 02/24/2024 15:40 Report Date: 02/25/2024 [...] POSADA M.D. Signed By: 02/25/248 DD/ TD/TT: Trestle Mechanic:ANNABELHRadiology, Radiologist, - 02/25/2024 [place] [address] Magnetic Resonance Report Signed Patient: MARILIA VERA MR#: [id number] : 1990 Acct:[id number] Age/Sex: 33 / F ADM Date: 02/24/24 Loc: MRI Attending Dr: Donavan Garcia M.D. Ordering Physician: Donavan Garcia M.D. Date of Service: 02/24/24 Procedure(s): MR cervical spine wo con Accession Number(s): [id number] cc: Ariane Wells AUTOMATIC CLIPPER; Donavan Garcia M.D. [address] [place] [id number] Patient Name: MARILIA VERA MRN: [facility]:[id number] date: 1990 Sex: F Assigned Patient Location: MRI Current Patient Location: Accession/Order Number: [id number] Exam Date: 02/24/2024 15:40 Report Date: 02/25/2024 [...] POSADA M.D. Signed By: 02/25/248 DD/ TD/TT: Trestle Mechanic: DELANEY ColbyRadiology Study observation (narrative)[facility] Cervical spine WO contrastOrdered By: Radiologist Radiology on 75-51-3831ZXEM nContact Surgical Work Phone: Formson 82-82-3954Qeztx [id number]#1.00TIFFNormalFayette County Memorial HospitalConsent for Treatmenton 56-52-8775Awxallz for Treatment [id number]#1.00[facility] CenterDischarge Instructionson 11-09-9638Lhjdwpzww Instructions [id number]#1.00[facility] Clinical Summaryon 50-29-3167FZ Clinical Summary [place] [id number] ED Clinical Summary Person Information Name: MARILIA VERA [place] Age: 33 Years : 1990 Sex: Female Language: Finnish PCP: ARIANE WELLS CNP Marital Status: Visit [...] 11/27/2023 15:37:23 11/27/2023 15:37:23 11/27/2023 15:37:23 ADDRESS: [address] [place] [phone] PHYS DOC NOTES: MEDICAL INFORMATION: Prescriptions Given: [facility], [address], [place] [id number], [phone] methocarbamol (Robaxin-750 oral tablet) 2 Tablets By [...] Follow up: With: Address: When: Georgi [address] [place] [address] Cellerix (1) In 3 days 11/30/2023 DIAGNOSIS: Pain in shoulderNormalFisher Larry Medical CenterED Note-Physicianon 11-27-2023 ED Note-PhysicianBasic Information [...] day(s), # 18 tab(s), Refills(s) 0, [facility], 160, cm, 11/27/23 12:59:00 EDT, Height/Length Dosing, 114.1, kg, 11/27/23 12:59:00 EDT, Weight Dosing naproxen, 500 mg = 1 tab(s), Oral, BID, PRN for pain, # 20 tab(s), Refills(s) 0, Pharmacy: [facility], 160, cm, 11/27/23 12:59:00 EDT, Height/Length [...] Pfeiffer In 3 days 11/30/2023 EDT [address] [place] [address]- Business (1) Additional Instructions: Patient Education Shoulder [...] made to ensure accuracy, however, inadvertently computerized signal engineer mistakes may be present. Appropriate healthcare [...] tab(s), Oral, BID HumuLIN R KwikPen (Concentrated) Elieserdiagusto (more content not included)...Protestant HospitalComment on above:Result Comment: Electronically Signed By: Steven Cardenas PA-C\.br\Date and Time Signed: 11/26/2414:40 EDT\.br\Electronically Co-Signed By: Riky Le DO\.br\Date and Time Co-Signed: 11/26/2416:17 EDTED Patient Education Noteon 63-11-7633WW Patient Education NoteOrthopedics Shoulder Pain Many things [...] strengthen the arm. General instructions ? Take pxue-itc-mnsruon and prescription medicines only as told by [...] Reviewed: 05/03/2022 Elsevier Patient Education ? 2022 Kiddy.[facility] ED Patient Summaryon 37-43-0905UJ Patient Summary [address] [address] Patient Discharge Instructions Person Information Name: MARILIA VERA Age: 33 Years Arrival Date: 11/27/2023 12:52:48 Discharge Diagnosis: Pain in shoulder Primary Care Physician: ARIANE WELLS CNP Provider Information Primary Provider: Riky Le DO Advanced Char Filter Operator Helper:Steven Cardenas PA-C The exam and treatment you received in the Emergency Department were for an urgent problem and are not intended as complete care. It is important that you follow up with a doctor, nurse practitioner,or physician?s assistant executive housekeeper for ongoing care. If your symptoms become worse or you do not improve as expected and you are unable to reach your usual health care provider, you should return to the Emergency Department. We are available 24 hours a day. MARILIA VERA has been given the following list of patient education materials, prescriptions and follow-up instructions: Follow-up Instructions: With: Address: When: Georgi Pfeiffer [address] [place] [address] Business (1) In 3 days 11/30/2023 In the event that this physician does not participate in your insurance network, please consult with your insurance company to find a nearby participating provider. Patient Education Materials: Shoulder Pain A MESSAGE TO ALL PATIENTS REGARDING OPIOIDS PRESCRIPTION OPIOIDS: WHAT YOU NEED TO KNOW Prescription opioids can be used to help relieve kgzprdeh-ni-fgvowb pain and are often prescribed following a [...] your community drug take- back program or [facility] mail-back program, or flush them down the toilet, following guidance from the Food and Drug Administration (www.fda.gov/Drugs/ResourcesForYou). ? Visit www.cdc.gov/drugoverdose to learn about the risks of opioids abuse and overdose. ? If you believe you may be struggling with addiction, tell your health skin care specialist and ask for guidance or call [facility]?S National Helpline at 2-202-905-HELP. v Source: Department of [facility] (more content not included)...[facility]testant HospitalFormson 64-43-0432Jxjbu [id number]#1.00TIFFNormThe University of Toledo Medical CenterXR Shoulder Complete Righton 49-85-9896LU Shoulder Complete RightExam Date/Time: 11/27/2023 13:33 EDT [...] Ka,r in mGy = na DAP = naNorTrinity Health System Twin City Medical CenterCBC AUTO DIFFon 38-19-8213PDBX #0.1 103/ulNormal0.0-0.1The [facility] Av[facility] HospitalComment on above:Performed By: #### PREGU #### [facility] [address] [address] [address] Jaz BarajasBasophils/100 WBC (Bld)0.8 %Normal0.2-2.0The [facility] Comment on above:Performed By: #### PREGU #### [facility] [address] [place] [address] Dr. Jaz Mahoney #0.2 103/ulNormal0.0-0.7The [facility] HospitalComment on above: Performed By: #### PREGU #### [facility] [address] [place] [address] Dr. Jaz Alamoosinophils/100 WBC (Bld)2.1 %Normal0.9-7.0The [facility] Comment on above:Performed By: #### PREGU #### [facility] [address] [place] [address] Dr. Jaz Alamorythrocyte distribution width (RBC) [Ratio]13.0 %Kmcvke76.0-15.0 The [facility] HospitalComment on above:Performed By: #### PREGU #### [facility] [address] [place] [address] Dr. Jaz BarajasHematocrit (Bld) [Volume fraction]41.2 %Eyuovn71.0-48.0The [facility] HospitalComment on above:Performed By: #### PREGU #### [facility] [address] [place] [address] Dr. Jaz BarajasHemoglobin (Bld) [Mass/Vol]13.7 g/dGHffdbk92.0-16.0The [facility] HospitalComment on above:Performed By: #### PREGU #### [facility] [address] [place] [address] Dr. Jaz Mak #0.02 10e3/ulNormal0.00-0.03The [facility] HospitalComment on above:Performed By: #### PREGU #### [facility] [address] [place] [address] Dr. Jaz Mak %0.2 %Normal0.0-0.5The [facility] HospitalComment on above: Performed By: #### PREGU #### [facility] [address] [place] [address] Dr. Jaz Osborn #3.3 103/ulNormal1.2-3.8The [facility] HospitalComment on above:Performed By: #### PREGU #### [facility] [address] [place] [address] Dr. Jaz Wagnermphocytes/100 WBC (Bld)34.8 %Nowtvq38.5-60.0The [facility] HospitalComment on above:Performed By: #### PREGU #### [facility] [address] [place] [address] Dr. Jaz Rios DIFF REQNONormalThe [facility] HospitalComment on above: Performed By: #### PREGU #### [facility] [address] [place] [address] Dr. Jaz Dc (RBC) [Entitic mass]26.6 pgCritically low26.7-34.0The [facility] HospitalComment on above:Performed By: #### PREGU #### [facility] [address] [place] [address] Dr. Jaz Dc (RBC) [Mass/Vol]33.3 g/mXNvoulg68.9-35.2The [facility] HospitalComment on above:Performed By: #### PREGU #### [facility] [address] [place] [address] Dr. Jaz Dc (RBC) [Entitic vol]79.8 fLCritically low81.0-99.0The [facility] HospitalComment on above:Performed By: #### PREGU #### [facility] [address] [place] [address] Dr. Jaz James #0.7 103/ulNormal0.3-0.8The [facility] HospitalComment on above:Performed By: #### PREGU #### [facility] [address] [place] [address] Dr. Jaz Dejesusocytes/100 WBC (Bld)7.3 %Normal1.7-12.0The [facility] Comment on above:Performed By: #### PREGU #### [facility] [address] [place] [address] Dr. Jaz Paul #5.3 103/ulNormal1.4-6.5[facility] on above:Performed By: #### PREGU #### [facility] [address] [place] [address] Dr. Jaz Cantrellutrophils/100 WBC (Bld)54.8 %Mojhqe52.0-75.0The [facility] HospitalCombeaumont hospital on above:Performed By: #### PREGU #### [facility] [address] [place] [address] Dr. Jaz BarajasPlatelet mean volume (Bld) [Entitic vol]10.7 fLNormal9.5-13.5The [facility] on above:Performed By: #### PREGU #### [facility] [address] [place] [address] Dr. Jaz BarajasPLT284 103/zjKuxawu603-217Mjq [facility] on above: Performed By: #### PREGU #### [facility] [address] [place] [address] Dr. Jaz BarajasRBC5.16 106/ulNormal4.20-5.40The [facility] on above:Performed By: #### PREGU #### [facility] [address] [place] [address] Dr. Jaz BarajasWBC9.6 103/ulNormal4.0-11.0The [facility] HospitalCombeaumont hospital on above: Performed By: #### PREGU #### [facility] [address] [place] [address] Dr. Jaz BarajasFREE T4on 76-36-7608Xwtz T4 [Mass/Vol]1.10 ng/dLNormal0.76-1.46 [facility] on above:Performed By: #### PROGLCM #### [facility] [address] [place] [address] Dr. Jaz BarajasLIPID PROFILEon 75-98-0580YBLB-HDL RATIO NORMSEE [facility] HospitalComment on above:Result Comment: 3.3 - 4.4 LOW RISK 4.4 - 7.1 AVERAGE RISK 7.1 - 11.0 MODERATE RISK >11.0 HIGH RISKPerformed By: #### LIPID, TSH, CMP ####[facility] [address] [place] [address]Dr. Yilan ChangCholesterol [Mass/Vol]168 mg/dLNormal<=200The [facility] HospitalComment on above:Performed By: #### LIPID, TSH, CMP ####[facility] [address] [place] [address]Dr. Yilan Barajas Cholesterol in HDL [Mass/Vol]32 mg/dLCritically xpi24-90IgySt. Rita'S Hospital Comment on above:Performed By: #### LIPID, TSH, CMP ####[facility] [address] [place], [place] [address]Dr. Yilan ChangCholesterol in LDL [Mass/Vol]121.8 mg/dLAdena Pike Medical CenterComment on above:Performed By: #### LIPID, TSH, CMP ####[facility] [address] [place], [place] [address]Dr. Yilan ChangCholesterol.total/Cholesterol in HDL [Mass ratio]5.3 {ratio}NormalSt. Rita'S HospitalCombeaumont hospital on above:Performed By: #### LIPID, TSH, CMP ####[facility] [address] [place], [place] [address]Dr. Yilan ChangHDL NORMAL> or = 60 mg/dl - LOW CARDIOVASCULAR RISK <40 mg/dl - HIGH CARDIOVASCULAR RISKAdena Pike Medical CenterComment on above:Performed By: #### LIPID, TSH, CMP ####[facility] [address] [place], [place] [address]Dr. Yilan ChangLDL CALC NORMALSEE BELOWAdena Pike Medical CenterComment on above:Result Comment: <100 mg/dl OPTIMAL 100 - 129 mg/dl NEAR OR ABOVE OPTIMAL 130 - 159 mg/dl BORDERLINE HIGH 160 - 189 mg/dl HIGH >190 mg/dl VERY HIGHPerformed By: #### LIPID, TSH, CMP ####[facility] [address]ns[address] [place] [address]Dr. Jaz BarajasTriglyceride [Mass/Vol]71 mg/dLNormal<=150The [facility] HospitalComment on above:Performed By: #### LIPID, TSH, CMP ####[facility] Cyxrherycx[address] [place] [address]Dr. Jaz BarajasVLDL CALC14.2 mg/dLNormalThe [facility] HospitalComment on above:Performed By: #### LIPID, TSH, CMP ####[facility] Fiifpmxzfm[address] [place] [address]Dr. Jaz BarajasMICROALBUMIN, RAND URon 72-22-2601aCHU<1.3Normal<=30.0 The [facility] HospitalComment on above:Performed By: #### PREGU #### [facility] [address] [place] [address] [address] Jaz BarajasPROF 14(COMP METB)on 80-72-1565Ynampqb [Mass/Vol]3.7 g/dLNormal 3.4-5.0The [facility] Mentor Hospitalment on above:Performed By: #### LIPID, TSH, CMP ####[facility] Bjarboudpb[address] [place] [address]Dr. Jaz BarajasAlbumin/Globulin [Mass ratio]0.8 {ratio}NormalThe [facility] Comment on above:Performed By: #### LIPID, TSH, CMP ####[facility] Cmsyydnxxp[address] [place] [address]Dr. Jaz ChangALP [Catalytic activity/Vol]90 U/BBnygtp26-850Oio [facility] HospitalComment on above:Performed By: #### LIPID, TSH, CMP ####[facility] Hhemvpezdp[address] [place] [address]Dr. Hannahlan ChangALT [Catalytic activity/Vol]106 U/L Critically zjlb96-50Has [facility] HospitalComment on above:Performed By: #### LIPID, TSH, CMP ####[facility] [address]qlvfrclf[address] [place] [address]Dr. Jaz ChangAnion gap [Moles/Vol]12.5 mmol/LNormalThe [facility] HospitalComment on above:Performed By: #### LIPID, TSH, CMP ####[facility] Vatqkfekdu[address] [place] [address]Dr. Yilan ChangAST [Catalytic activity/Vol]43 U/LCritically vbhu79-87Qiw [facility] HospitalComment on above:Performed By: #### LIPID, TSH, CMP ####[facility] Wyfoirwepl[address] [place], [place] [address]Dr. Yilan ChangBilirubin [Mass/Vol]0.4 mg/dL Normal0.2-1.0The [facility] HospitalComment on above:Performed By: #### LIPID, TSH, CMP ####[facility] [address] [place], [place] [address]Dr. Yilan ChangCalcium [Mass/Vol]9.0 mg/dLNormal8.5-10.1The [facility] HospitalComment on above:Performed By: #### LIPID, TSH, CMP ####[facility] [address]tsca[address] [place], [place] [address]Dr. Yilan Barajas Chloride [Moles/Vol]104 mmol/LHreqtc15-485Ssn [facility] Mentor Hospitalment on above: Performed By: #### LIPID, TSH, CMP ####[facility] Maycjhzwe[address] [place], [place] [address]Dr. Yilan ChangCO2 [Moles/Vol]25.8 mmol/LNormal 21.0-32.0The [facility] HospitalComment on above:Performed By: #### LIPID, TSH, CMP ####[facility] Ktohug[address] [place], [place] [address]Dr. Yilan ChangCreatinine [Mass/Vol]0.76 mg/dLNormal0.55-1.02The [facility] Comment on above:Performed By: #### LIPID, TSH, CMP ####[facility] Tyjofuebsl[address] [place], [place] [address]Dr. Yilan ChangEGFR-AF GREEK>60Normal>=60The [facility] HospitalComment on above:Performed By: #### LIPID, TSH, CMP ####[facility] [address] [place] [address]Dr. Yilan ChangEGFR-NON AF GREEK>60Normal>=60The [facility] Comment on above:Performed By: #### LIPID, TSH, CMP ####[facility] Gcjhcehnvo[address] [place] [address]Dr. Yilan ChangGlobulin (S) [Mass/Vol]4.4 g/dLNormLancaster Municipal HospitalComment on above:Performed By: #### LIPID, TSH, CMP ####[facility] Oxhabvihcm[address] [place] [address]Dr. Yilan ChangGlucose [Mass/Vol]228 mg/dLCritically zzbd77-872Dnk [facility] HospitalComment on above:Performed By: #### LIPID, TSH, CMP ####[facility] Aimxfcyxxh[address] [place] [address]Dr. Yilan ChangPotassium [Moles/Vol]4.3 mmol/LNormal3.5-5.1The [facility] Comment on above:Performed By: #### LIPID, TSH, CMP ####[facility] Qovlpfnbqj[address] [place] [address]Dr. Yilan ChangProtein [Mass/Vol]8.1 g/dLNormal6.4-8.2The [facility] HospitalComment on above:Performed By: #### LIPID, TSH, CMP ####[facility] Mzxuqfapur[address] [place] [address]Dr. Yilan ChangSodium [Moles/Vol]138 mmol/LNormal 136-145The [facility] HospitalComment on above:Performed By: #### LIPID, TSH, CMP ####[facility] S[address]sevjvzn[address] [place] [address]Dr. Yilan ChangUrea nitrogen [Mass/Vol]21.0 mg/dLCritically high7.0-18.0The [facility] HospitalComment on above:Performed By: #### LIPID, TSH, CMP ####[facility] Orjdhlhjgu[address] [place] [address]Dr. Yilan ChangUrea nitrogen/Creatinine [Mass ratio]27.6 mg/mgNoSelect Specialty Hospital - Greensboroue HospitalComment on above:Performed By: #### LIPID, TSH, CMP ####[facility] Sktvbpeisy[address] [place], [place] [address]Dr. Jaz BarajasTSHon 54-92-8064BAY3.602 uIU/mLNormal0.358-3.740The [facility] HospitalComment on above:Performed By: #### LIPID, TSH, CMP ####[facility] [address]qjm[address] [place], [place] [address]Dr. Jaz BarajasUA RANDOM W/MICROSCOPICon 04-92-6455FEXOWSMQXZHO SEEN NormalNONE SEENSt. Rita'S HospitalComment on above:Performed By: #### UAMIC ####[facility] Goasfcmjzi[address] [place], [place] [address]Dr. Jaz BarajasBilirubin Ql (U)NegativeNormalNEGATIVEThe [facility] HospitalComment on above:Performed By: #### UAMIC ####[facility] Cbydshwwxq[address] [place], [place] [address]Dr. Jaz ChangCASTNONE SEENNormalNONE SEENSt. Rita'S HospitalCombeaumont hospital on above:Performed By: #### UAMIC ####[facility] Apfefymvft[address] [place], [place] [address]Dr. Jaz ChangClarity (U) CLEARNormalCLEARSt. Rita'S HospitalComment on above:Performed By: #### UAMIC ####[facility] Qsnqbldrzv[address] [place], [place] [address]Dr. Jaz ChangColor (U)LT. YELLOWNormalYELLOWSt. Rita'S HospitalComment on above: Performed By: #### UAMIC ####[facility] Iatmqhviqf249[address] [place], [place] [address]Dr. Jaz BarajasCrystals LM Nom (Urine sed)NONE SEEN NormalNONE SEENSt. Rita'S HospitalCombeaumont hospital on above:Performed By: #### UAMIC ####[facility] Scddlrseqf[address] [place], [place] [address]Dr. Jaz ChangEpithelial cells LM Ql (Urine sed)RARENormalNONE SEEN /RAREThe [facility] HospitalComment on above:Performed By: #### UAMIC ####[facility] [address] [place] [address]Dr. Yilan ChangGlucose Ql (U) >1000AbnormalNEGATIVEThe [facility] HospitalComment on above:Performed By: #### UAMIC ####[facility] Rvgcjhnxgj9[address] [place], [place] [address]Dr. Yilan ChangHemoglobin Ql (U)NegativeNormalNEGATIVEThe [facility] Comment on above:Performed By: #### UAMIC ####[facility] Juffeurung[address] [place], [place] [address]Dr. Yilan ChangKetones Ql (U)NegativeNormal NEGATIVESt. Rita'S HospitalComment on above:Performed By: #### UAMIC ####[facility] Mgcughbhgb94[address] [place], [place] [address]Dr. Yilan ChangLEUKOCYTESNegativeNormalNEGATIVEThe [facility] HospitalComment on above:Performed By: #### UAMIC ####[facility] Fxzywmmepj78[address] [place], [place] [address]Dr. Yilan ChangMUCOUSNONE SEENNormalNONE SEENSt. Rita'S HospitalComment on above:Performed By: #### UAMIC ####[facility] Okogvwkkhi194[address] [place], [place] [address]Dr. Yilan ChangNitrite Ql (U) NegativeNormalNEGATIVESt. Rita'S HospitalComment on above:Performed By: #### UAMIC ####[facility] Jmakluiezu[address] [place], [place] [address]Dr. Yilan ChangpH (U)6.0 [pH]Normal5-9The [facility] HospitalComment on above:Performed By: #### UAMIC ####[facility] Qzxskuapqx108[address] [place], [place] [address]Dr. Yilan ChangRBCNONE SEENAbnormal0-2The [facility] HospitalComment on above:Performed By: #### UAMIC ####[facility] Icruxjsfua8335[address] [place], [place] [address]Dr. Yilan ChangSPEC GRAVITY 1.475Nmloje5.005-<=1.025St. Rita'S HospitalComment on above:Performed By: #### UAMIC ####[facility] Tg[address] [place] [address]DrPratibha Moura PROTEINNegativeNormalNEGATIVE/ TRACEThe [facility] Comment on above:Performed By: #### UAMIC ####[facility] Wnofupprex26[address] [place], [place] [address]Dr. Jaz BarajasUrobilinogen Qn (U)0.2 {Oxana'U}/dLNormal0.2 - 1.0The [facility] HospitalComment on above:Performed By: #### UAMIC ####[facility] Zkfyeszvpm9[address] [place], [place] [address]DrPratibha BarajasWBC0-2AbnormalNONE SEENSt. Rita'S HospitalComment on above:Performed By: #### UAMIC ####[facility] Oatmhdfocy55[address] [place], [place] [address]DrPratibha BarajasVITAMIN D 25 OHon [id number] D 25-OH 30.9 ng/mLNormalSt. Rita'S HospitalComment on above:Performed By: #### GLCM #### [facility] [address] [place] [address] Dr. Jaz Baxter RANGESSEE BELOWAdena Pike Medical CenterComment on above: Result Comment: <20 ng/mL Vit D deficient 20 - <30 ng/mL Vit D insufficient 30 - 100 ng/mL Vit D sufficient >100 ng/mL Potential ToxicityPerformed By: #### PROGLCM #### [facility] [address] [place] [address] Dr. Jaz Najera AUTO DIFFon [id number] #0.1 103/ulNormal0.0-0.1St. Rita'S HospitalComment on above:Performed By: #### GLCM #### [facility] [address] [place] [address] Dr. Jaz BarajasBasophils/100 WBC (Bld)0.6 %Normal0.2-2.0[facility] Comment on above:Performed By: #### PROGLCM #### [facility] [address] [place] [address] Dr. Jaz Mahoney #0.2 103/ulNormal0.0-0.7The [facility] HospitalComment on above: Performed By: #### PROGLCM #### [facility] [address] [place] [address] Dr. Jaz Alamoosinophils/100 WBC (Bld)2.0 %Normal0.9-7.0The [facility] Comment on above:Performed By: #### PROGLCM #### [facility] [address] [place] [address] Dr. Jaz Gannthrocyte distribution width (RBC) [Ratio]13.3 %Cbfbla28.0-15.0 The [facility] HospitalComment on above:Performed By: #### PROGLCM #### [facility] [address] [place] [address] Dr. Jaz BarajasHematocrit (Bld) [Volume fraction]40.4 %Ccbgnj47.0-48.0The [facility] HospitalComment on above:Performed By: #### PROGLCM #### [facility] [address] [place] [address] Dr. Jaz BarajasHemoglobin (Bld) [Mass/Vol]13.5 g/aJLhzzvc76.0-16.0The [facility] HospitalComment on above:Performed By: #### PROGLCM #### [facility] [address] [place] [address] Dr. Jaz Mak #0.03 10e3/ulNormal0.00-0.03The [facility] HospitalComment on above:Performed By: #### PROGLCM #### [facility] [address] [place] [address] Dr. Jaz Mak %0.3 %Normal0.0-0.5The [facility] HospitalComment on above: Performed By: #### PROGLCM #### [facility] [address] [place] [address] Dr. Jaz Osborn #3.3 103/ulNormal1.2-3.8The [facility] HospitalComment on above:Performed By: #### PROGLCM #### [facility] [address] [place] [address] Dr. Jaz Wagnermphocytes/100 WBC (Bld)30.7 %Assehy59.5-60.0The [facility] HospitalComment on above:Performed By: #### PROGLCM #### [facility] [address] [place] [address] Dr. Jaz Rios DIFF REQNONormalThe [facility] HospitalComment on above: Performed By: #### PROGLCM #### [facility] [address] [place] [address] Dr. Jaz Dc (RBC) [Entitic mass]26.6 pgCritically low26.7-34.0The [facility] HospitalComment on above:Performed By: #### PROGLCM #### [facility] [address] [place] [address] Dr. Jaz Dc (RBC) [Mass/Vol]33.4 g/vRDowybw35.9-35.2The [facility] HospitalComment on above:Performed By: #### PROGLCM #### [facility] [address] [place] [address] Dr. Jaz Dc (RBC) [Entitic vol]79.7 fLCritically low81.0-99.0The [facility] HospitalComment on above:Performed By: #### PROGLCM #### [facility] [address] [place] [address] Dr. Jaz James #0.8 103/ulNormal0.3-0.8The [facility] HospitalComment on above:Performed By: #### PROGLCM #### [facility] [address] [place] [address] Dr. Jaz Dejesusocytes/100 WBC (Bld)7.4 %Normal1.7-12.0The [facility] Comment on above:Performed By: #### PROGLCM #### [facility] [address] [place] [address] Dr. Jaz CantrellUT #6.3 103/ulNormal1.4-6.5The [facility] HospitalComment on above:Performed By: #### PROGLCM #### [facility] [address] [place] [address] Dr. Jaz Cantrellutrophils/100 WBC (Bld)59.0 %Fqssed70.0-75.0The [facility] HospitalComment on above:Performed By: #### PROGLCM #### [facility] [address] [place] [address] Dr. Jaz Huberlet mean volume (Bld) [Entitic vol]10.7 fLNormal9.5-13.5The [facility] HospitalComment on above:Performed By: #### PROGLCM #### [facility] [address] [place] [address] Dr. Jaz BarajasPLT326 103/koJyvyji923-227Bsl [facility] HospitalComment on above: Performed By: #### PROGLCM #### [facility] [address] [place] [address] Dr. Jaz BarajasRBC5.07 106/ulNormal4.20-5.40[facility] on above:Performed By: #### PROGLCM #### [facility] [address] [place] [address] Dr. Jaz BarajasWBC10.7 103/ulNormal4.0-11.0[facility] on above:Performed By: #### PROGLCM #### [facility] [address] [place] [address] Dr. Jaz BarajasCT ABD/PELV W CONon [id number] ABD/PELV W CONEXAMINATION: CT ABD/PELV W CON [...] Electronically authenticated by: GERALDINE LAZAR Date: 2022-11-15 09:13[facility] URINE PROFILEon [id number] Ql (U)NegativeNormal NEGATIVESt. Rita'S HospitalComment on above:Performed By: #### PROGLCM #### [facility] [address] [place] [address] Dr. Jaz Ospian (U)CLEARNormalCLEARSt. Rita'S HospitalComment on above: Performed By: #### PROGLCM #### [facility] [address] [place] [address] Dr. Jaz Schwartz (U)LT. YELLOWNormalYELLOWThe [facility] Hospitalment on above:Performed By: #### PROGLCM #### [facility] [address] [place] [address] Dr. Jaz Larsen micrscopic examination will be performed if indicated. NormalThe [facility] HospitalComment on above:Performed By: #### PROGLCM #### [facility] [address] [place] [address] Dr. Yilan ChangGlucose Ql (U)1000 mg/dlAbnormalNEGATIVESt. [facility]'S Hospital Comment on above:Performed By: #### PROGLCM #### [facility] [address] [address] [address] Jaz BarajasHemoglobin Ql (U)NegativeNormalNEGBarnesville Hospital Comment on above:Performed By: #### PROGLCM #### [facility] [address] [address] [address] Jaz BarajasKetones Ql (U)NegativeNormalNEGATIVESt. Rita'S HospitalComment on above:Performed By: #### PROGLCM #### [facility] [address] [place] [address] Dr. Jaz BarajasLEUKOCYTESNegativeNormalNEGATIVESt. Rita'S HospitalComment on above:Performed By: #### PROGLCM #### [facility] [address] [place] [address] Dr. Jaz BarajasNitrite Ql (U)NegativeNormalNEGATIVESt. Rita'S HospitalComment on above:Performed By: #### PROGLCM #### [facility] [address] [place] [address] Dr. Jaz BarajaspH (U)6.0 [pH]Normal5-9St. [facility]'S HospitalComment on above: Performed By: #### PROGLCM #### [facility] [address] [place] [address] Dr. Jaz BarajasSPEC GRAVITY1.132Uhppap0.005-<=1.025The [facility] HospitalComment on above:Performed By: #### PROGLCM #### [facility] [address] [place] [address] Dr. Jaz BarajasUA PROTEINNegativeNormalNEGATIVE/ TRACEThe [facility] Comment on above:Performed By: #### PROGLCM #### [facility] [address] [place] [address] Dr. Jaz Prakash MICRO INDNOT INDICATEDNoMercy Health Allen HospitalComment on above:Performed By: #### PROGLCM #### [facility] [address] [place] [address] Dr. Jaz Tannerbilinogen Qn (U)0.2 {Oxana'U}/dLNormal0.2 - 1.0The [facility] HospitalComment on above:Performed By: #### PROGLCM #### [facility] [address] [place] [address] Dr. Jaz BarajasLIPASEon 46-06-5156Zudcuh [Catalytic activity/Vol]73.0 U/LNormal 73.0-393.0The [facility] HospitalComment on above:Performed By: #### PREGU #### [facility] [address] [place] [address] Dr. Jaz BarajasPREGNANCY URon [id number], QUALNegativeNormalNEGATIVEThe [facility] HospitalComment on above:Performed By: #### ERUR, PREGU ####[facility] Acophmlvic[address] [place], [place] [address]Dr. Jaz BarajasPROF 14(COMP METB)on 33-67-5071Syefvcb [Mass/Vol]3.6 g/dLNormal3.4-5.0The [facility] HospitalComment on above:Performed By: #### PREGU #### [facility] [address] [place] [address] Dr. Jaz BarajasAlbumin/Globulin [Mass ratio]0.9 {ratio}NormalThe [facility] HospitalComment on above:Performed By: #### PREGU #### [facility] [address] [place] [address] Dr. Jaz Peters [Catalytic activity/Vol]98 U/PXvuqml03-942Xnq [facility] HospitalComment on above:Performed By: #### PREGU #### [facility] [address] [place] [address] Dr. Jaz Sahu [Catalytic activity/Vol]138 U/LCritically ntou81-35Gpb [facility] HospitalComment on above:Performed By: #### PREGU #### [facility] [address] [place] [address] Dr. Yilan ChangAnion gap [Moles/Vol]13.4 mmol/LNormalSt. [facility]'S Hospital Comment on above:Performed By: #### PREGU #### [facility] [address] [address] [address] Jaz BarajasAST [Catalytic activity/Vol]61 U/LCritically mjrp01-55Jpf [facility] HospitalComment on above:Performed By: #### PREGU #### [facility] [address] [address] [address] Jaz BarajasBilirubin [Mass/Vol]0.2 mg/dLNormal0.2-1.0The [facility] Comment on above:Performed By: #### PREGU #### [facility] [address] [place] [address] Dr. Jaz BarajasCalcium [Mass/Vol]9.4 mg/dLNormal8.5-10.1[facility] Comment on above:Performed By: #### PREGU #### [facility] [address] [place] [address] Dr. Jaz BarajasChloride [Moles/Vol]104 mmol/MOiykwg31-223GkjSt. [facility]'S Hospital Comment on above:Performed By: #### PREGU #### [facility] [address] [place] [address] Dr. Jaz BarajasCO2 [Moles/Vol]24.7 mmol/DXpvpdc45.0-32.0[facility] Comment on above:Performed By: #### PREGU #### [facility] [address] [place] [address] Dr. Jaz BarajasCreatinine [Mass/Vol]0.69 mg/dLNormal0.55-1.02The [facility] HospitalComment on above:Performed By: #### PREGU #### [facility] [address] [place] [address] Dr. Jaz AlamoGFR-AF GREEK>60Normal>=60The [facility] HospitalComment on above:Performed By: #### PREGU #### [facility] [address] [place] [address] Dr. Jaz AlamoGFR-NON AF GREEK>60Normal>=60The [facility] HospitalComment on above:Performed By: #### PREGU #### [facility] [address] [address] [address] Jaz BarajasGlobulin (S) [Mass/Vol]4.2 g/dLNormalThOhioHealth Van Wert HospitalComment on above:Performed By: #### PREGU #### [facility] [address] [address] [address] Jaz BarajasGlucose [Mass/Vol]339 mg/dLCritically jxxr15-096Fto [facility] HospitalComment on above:Performed By: #### PREGU #### [facility] [address] [place] [address] Dr. Jaz BarajasPotassium [Moles/Vol]4.1 mmol/LNormal3.5-5.1The [facility] Comment on above:Performed By: #### PREGU #### [facility] [address] [place] [address] Dr. Jaz BarjaasProtein [Mass/Vol]7.8 g/dLNormal6.4-8.2The [facility] Comment on above:Performed By: #### PREGU #### [facility] [address] [place] [address] Dr. Jaz BarajasSodium [Moles/Vol]138 mmol/DHtnfns531-353MhbSt. [facility]'S Hospital Comment on above:Performed By: #### PREGU #### [facility] [address] [place] [address] Dr. Jaz BarajasUrea nitrogen [Mass/Vol]17.0 mg/dLNormal7.0-18.0The [facility] HospitalComment on above:Performed By: #### PREGU #### [facility] [address] [place] [address] Dr. Jaz Raza nitrogen/Creatinine [Mass ratio]24.6 mg/mgNormalThe [facility] HospitalComment on above:Performed By: #### PREGU #### [facility] [address] [place] [address] Dr. Jaz BarajasCULTURE WOUNDon [id number] WOUNDCulture Observations: NO GROWTH OF ANAEROBES AT [...] Vancomycin 0.5 S F Tetracycline >=16 R FNormalSt. Rita'S HospitalComment on above:Performed By: #### WOUNDCX ####[facility] [address] [place], [place] [address]PsDr. Jaz BarajasCovid-19 PCR (CVDMASSACHUSETTS [facility])on [id number]-CoV-2 (COVID-19) RNA REANNA+probe Ql (Unsp spec)Not detectedNormalNOT DETECTEDSt. [facility]'S Hospital Comment on above:Result Comment: This test is not yet approved or cleared by the [place] FDA. When there are no FDA-approved or cleared tests available, and other criteria are met, FDA can make tests available under an emergency access mechanism called an Emergency Use Authorization (EUA). The EUA for this test is supported by the Reception Agent of Health and Human Service's (HHS's) declaration [...] consistent with SARS-CoV-2.Performed By: #### PROGLCM #### [facility] [address] [place], [place] [address] Dr. Jaz BURNS AGon [id number] Rutan HospitalComment on above:Result Comment: Negative for Flu A protein angiten. Infection due to Flu A cannot be ruled out. FluA angiten in the sample may be below the detection limit of the test.Performed By: #### PROGLCM #### [facility] [address] [place] [address] Dr. Jaz JeffriesUBNEGHSEE [facility] HospitalCombeaumont hospital on above: Result Comment: Negative for Flu B protein antigen. Infection due to Flu B cannot be ruled out. FluB antigen in the sample may be below the detection limit of the test.Performed By: #### PROGLCM #### [facility] [address] [place] [address] Dr. Jaz Guevara AGNegativeNormalNEGATIVE SEE COMMENTThe [facility] on above:Performed By: #### PROGLCM #### [facility] [address] [place] [address] Dr. Jaz Charles AGNegativeNormalNEGATIVE SEE COMMENTThe [facility] on above:Performed By: #### PROGLCM #### [facility] [address] [place] [address] Dr. Jaz BarajasINTERNAL CONTROLSWithin Normal LimitsNormalWithin Normal Limits [facility] on above:Performed By: #### PROGLCM #### [facility] [address] [place] [address] Dr. Jaz BarajasPOINT OF CARE GLUCOSEon 37-45-8591Iczdrbc [Mass/Vol]310 mg/dL Critically odjz13-384Jpa [facility] HospitalComment on above:Performed By: #### PROGLCM #### [facility] [address] [place] [address] Dr. Jaz BarajasXR CHEST 1 Von [id number] CHEST 1 VEXAMINATION: XR CHEST 1 V HISTORY: Cough COMPARISON: 01/09/2022 chest x-ray TECHNIQUE: Portable chest FINDINGS: The lung parenchyma is free of consolidation or infiltrate. No pneumothorax or pleural effusion. The cardiac, mediastinal and hilar contours are normal. The visualized osseous structures exhibit no gross abnormality. IMPRESSION: Normal chest x-ray Electronically authenticated by: JOSE EDUARDO RHODES Date: 2022-08-18 15:33NormalThe Marshall HospitalPREG HCG QUALon [id number], QUALNegativeNormalNEGATIVE The [facility] HospitalComment on above:Performed By: #### PREG ####[facility] Dadalgpnos[address] [place], [place] [address]Dr. Hannahlan ChangCBC AUTO DIFFon [id number] #0.1 103/ulNormal0.0-0.1The [facility] HospitalComment on above:Performed By: #### CBC ####[facility] Hvxwvayjdx[address] [place], [place] [address]Dr.Jaz ChangBasophils/100 WBC (Bld)0.6 %Normal 0.2-2.0The [facility] HospitalComment on above:Performed By: #### CBC ####[facility] Rxxflxwwde[address] [place], [place] [address]Dr.Yilan ChangEO # 0.2 103/ulNormal0.0-0.7The [facility] HospitalComment on above:Performed By: #### CBC ####[facility] Ebheswiqha674[address] [place], [place] [address]Dr. Jaz ChangEosinophils/100 WBC (Bld)1.5 %Normal0.9-7.0The [facility] Comment on above:Performed By: #### CBC ####[facility] Yszzmecaos[address] [place], [place] [address]Dr.Jaz ChangErythrocyte distribution width (RBC) [Ratio]12.6 %Pacqln70.0-15.0The [facility] HospitalComment on above: Performed By: #### CBC ####[facility] Qjypauzbij[address] [place], [place] [address]Dr.Jaz ChangHematocrit (Bld) [Volume fraction]38.7 % Umramu66.0-48.0The [facility] HospitalComment on above:Performed By: #### CBC ####[facility] Qlgadcdocg[address] [place], [place] [address]Dr. Yilan ChangHemoglobin (Bld) [Mass/Vol]12.9 g/mOPhogjw51.0-16.0The [facility] HospitalComment on above:Performed By: #### CBC ####[facility] Xxwgxiiaye[address] [place], [place] [address]Dr.Jaz BarajasIG #0.02 10e3/ulNormal0.00-0.03The [facility] HospitalComment on above:Performed By: #### CBC ####[facility] Trazznsanz[address] [place], [place] [address]Dr. Jaz BarajasIG %0.2 %Normal0.0-0.5The [facility] HospitalComment on above:Performed By: #### CBC ####[facility] Tksrsnfdmw[address] [place], [place] [address]Dr.Jaz BarajasLYMPH #3.5 103/ulNormal1.2-3.8The [facility] Comment on above:Performed By: #### CBC ####[facility] Durhaxpvcl[address] [place], [place] [address]Dr.Jaz BarajasLymphocytes/100 WBC (Bld)34.4 %Vklguj64.5-60.0The [facility] HospitalComment on above:Performed By: #### CBC ####[facility] Eubwvxbpch[address] [place], [place] [address]Dr. Jaz BarajasMANUAL DIFF REQNONormalThe [facility] HospitalComment on above: Performed By: #### CBC ####[facility] Opixtqqsbv[address] [place], [place] [address]Dr.Jaz BarajasST. JOHN'[facility] (RBC) [Entitic mass]27.2 pgNormal 26.7-34.0The [facility] HospitalComment on above:Performed By: #### CBC ####[facility] Czqvummzjp[address] [place], [place] [address]Dr. Jaz KarlNOR[facility]EN[facility] (RBC) [Mass/Vol]33.3 g/cVLnqqus55.9-35.2[facility] Comment on above:Performed By: #### CBC ####[facility] Eaikaiynyp[address] [place], [place] [address]Dr.Jaz BarajasMCV (RBC) [Entitic vol]81.6 fL Kfnphq08.0-99.0The [facility] Hospitalment on above:Performed By: #### CBC ####[facility] Zydogdghwp[address] [place], [place] [address]Dr. Jaz BarajasMONO #0.7 103/ulNormal0.3-0.8The [facility] HospitalComment on above: Performed By: #### CBC ####[facility] Lasrwzblvw[address] [place], [place] [address]Dr.Jaz ChangMonocytes/100 WBC (Bld)7.0 %Normal 1.7-12.0The [facility] HospitalComment on above:Performed By: #### CBC ####[facility] Wnmvitrzob[address] [place], [place] [address]Dr. Jaz ChangNEUT #5.7 103/ulNormal1.4-6.5The [facility] HospitalComment on above: Performed By: #### CBC ####[facility] [facility] [address] [place], [place] [address]Dr.Hannahlan ChangNeutrophils/100 WBC (Bld)56.3 %Normal 43.0-75.0[facility] on above:Performed By: #### CBC ####[facility] Xayceizagz[address] [place], [place] [address]Dr. Jaz ChangPlatelet mean volume (Bld) [Entitic vol]11.0 fLNormal9.5-13.5[facility]Com[facility] on above:Performed By: #### CBC ####[facility] Wrqfvk[address] [place], [place] [address]Dr.Hannahlan XtxkqCCC658 103/ul Aztsab715-484Pgw [facility]Com[facility] on above:Performed By: #### CBC ####[facility] Mphnghoglm[address] [place], [place] [address]Dr. Hannahlan ChangRBC4.74 106/ulNormal4.20-5.40[facility]Com[facility] on above: Performed By: #### CBC ####[facility] [address] [address]Dr.Yilan BarajasWBC10.0 103/ulNormal4.0-11.0The [facility] HospitalComment on above:Performed By: #### CBC ####[facility] [address] [address]Dr.Yilan BarajasCovid-19 PCR (CVDTB)on 72-72-5857VGFP-CoV-2 (COVID-19) RNA REANNA+probe Ql (Unsp spec)Not detectedNormalNOT DETECTEDThe [facility] HospitalComment on above:Result Comment: This test is not yet approved or cleared by the [place] FDA. When there are no FDA-approved or cleared tests available, and other criteria are met, FDA can make tests available under an emergency access mechanism called an Emergency Use Authorization (EUA). The EUA for this test is supported by the [place] of Health and Human Service's (HHS's) declaration [...] consistent with SARS-CoV-2.Performed By: #### PREGU #### [facility] [address] [address] [address] Jaz BarajasPROF CHEM 8 (BAS METB)on 73-08-0921Vqpmu gap [Moles/Vol]10.1 mmol/LNormalThe [facility] HospitalComment on above:Performed By: #### PREGU #### [facility] [address] [address] [address] Jaz BarajasCalcium [Mass/Vol]9.0 mg/dLNormal8.5-10.1[facility] Comment on above:Performed By: #### PREGU #### [facility] [address] [address] [address] Jaz BarajasChloride [Moles/Vol]99 mmol/OGjbtbi06-601Unj [facility] Comment on above:Performed By: #### PREGU #### [facility] [address] [address] [address] Jaz BarajasCO2 [Moles/Vol]29.1 mmol/CQalxdf70.0-32.0[facility] Comment on above:Performed By: #### PREGU #### [facility] [address] [address] [address] Jaz BarajasCreatinine [Mass/Vol]0.80 mg/dLNormal0.55-1.02The [facility] HospitalComment on above:Performed By: #### PREGU #### [facility] [address] [address] [address] Sebastian ChangEGFR-AF GREEK>60Normal>=60The [facility] HospitalComment on above:Performed By: #### PREGU #### [facility] [address] [address] [address] Jaz AlamoGFR-NON AF GREEK>60Normal>=60The [facility] HospitalComment on above:Performed By: #### PREGU #### [facility] [address] [address] [address] Jaz BarajasGlucose [Mass/Vol]217 mg/dLCritically thnf98-805Xjk [facility] HospitalComment on above:Performed By: #### PREGU #### [facility] [address] [address] [address] Jaz BarajasPotassium [Moles/Vol]4.2 mmol/LNormal3.5-5.1[facility] Comment on above:Result Comment: specimen slightly hemolyzed may affect K+ resultPerformed By: #### PREGU #### [facility] [address] [address] [address] Jaz BarajasSodium [Moles/Vol]134 mmol/LCritically rcn732-636Ajn [facility] HospitalComment on above:Performed By: #### PREGU #### [facility] [address] [place], [place] [address] Dr. Jaz BarajasUrea nitrogen [Mass/Vol]11.0 mg/dLNormal7.0-18.0[facility]Com[facility] on above:Performed By: #### PREGU #### [facility] [address] [place], [place] [address] Dr. Jaz BarajasUrea nitrogen/Creatinine [Mass ratio]13.8 mg/mgNormalThe [facility] HospitalComment on above:Performed By: #### PREGU #### [facility] [address] [place], [place] [address] Dr. Jaz BarajasCT ABD/PELV W CONon 33-63-1010KG ABD/PELV W CONEXAMINATION: CT ABD/PELV W CON [...] for patient's symptoms. Electronically authenticated by: JEYSON HARVINDER Date: 2022-04-18 12:31[facility] URINE PROFILEon 93-84-2891Sdegaknxh Ql (U)NegativeNormal NEGATIVELake County Memorial Hospital - West HospitalComment on above:Performed By: #### ERUR, PREGU ####[facility] Nftaszwfru[address] [place], [place] [address]Dr. Yilan ChangClarity (U)CLEARNormalCLEARLake County Memorial Hospital - West HospitalComment on above: Performed By: #### ERUR, PREGU ####[facility] Gjdwlabtjx[address] [place], [place] [address]Dr. Yilan ChangColor (U)LT. YELLOWNormalYELLOWSt. Rita'S HospitalComment on above:Performed By: #### ERUR, PREGU ####[facility] Gdzuaidevl[address] [place], [place] [address]Dr. Jaz BARCENASDA micrscopic examination will be performed if indicated.NormalSt. Rita'S HospitalComment on above:Performed By: #### ERUR, PREGU ####[facility] Vxptvwzmmh[address] [place], [place] [address]Dr. Yiisela BarajasGlucose Ql (U) 1000 mg/dlAbnormalNEGATIVESt. Rita'S HospitalComment on above:Performed By: #### ERUR, PREGU ####[facility] Xnivgedoor[address] [place], [place] [address]Dr. Yilan ChangHemoglobin Ql (U)NegativeNormalNEGATIVELake County Memorial Hospital - West HospitalComment on above:Performed By: #### ERUR, PREGU ####[facility] Errcxaojli[address] [place], [place] [address]Dr. Yilan ChangKetones Ql (U) NegativeNormalNEGATIVESt. Rita'S HospitalComment on above:Performed By: #### ERUR, PREGU ####[facility] Ijqearahkk[address] [place], [place] [address]Dr. Yilan ChangLEUKOCYTESNegativeNormalNEGATIVELake County Memorial Hospital - West HospitalComment on above:Performed By: #### ERUR, PREGU ####[facility] [address]ug[address] [address]Dr. Jaz KarlNitrite Ql (U)NegativeNormal NEGATIVEThe [facility] HospitalComment on above:Performed By: #### ERUR, PREGU ####[facility] [address] [address]Dr. Jaz KarlpH (U)6.5 [pH]Normal5-9The [facility] HospitalComment on above: Performed By: #### ERUR, PREGU ####[facility] [address] [address]Dr. Hannahisela BarajasSPEC GRAVITY1.071Qzgrfl0.005-<=1.025The [facility] HospitalComment on above:Performed By: #### ERUR, PREGU ####[facility] Rkqgozptws[address] [place], [place] [address]Dr. Jaz BarajasUA PROTEINNegativeNormalNEGATIVE/ TRACEThe [facility] HospitalComment on above: Performed By: #### JAMESR, PREGU ####[facility] Ditnmfosxr[address] [place], [place] [address]Dr. Jaz BarajasUR MICRO INDNOT INDICATEDNormalThe [facility] HospitalComment on above:Performed By: #### ERUR, PREGU ####[facility] Enjtfgwped[address] [place], [place] [address]Dr. Jaz Barajas Urobilinogen Qn (U)0.2 {Oxana'U}/dLNormal0.2 - 1.0The [facility] HospitalComment on above:Performed By: #### ERUR, PREGU ####[facility] Qsqfvbruyw[address] [place], [place] [address]Dr. Jaz BarajasPREGNANCY URon 04-18-2022 , QUALNegativeNormalNEGATIVEThe [facility] HospitalComment on above: Performed By: #### ERUR, PREGU ####[facility] Obprmxbizb[address] [place], [place] [address]Dr. Jaz Barajas17-[place] PROGESTERONE, LC/MSon 04-05-2022 17-[place] Progesterone LCMS43 ng/dLNormalThe [facility] HospitalComment on above: Result Comment: Adult Female Follicular 15 - 70 Luteal 35 - 290Performed By: #### PROGLCM #### [facility] [address] [place] [address] Dr. Jaz BarajasANDROSTENEDINE LC/MSon 86-56-0978Zruoqebttfsytcd LRRJ390 ng/dL Ndqllm96-537Wbi [facility] HospitalComment on above:Result Comment: This test was developed and its performance characteristics determined by [facility]. It has not been cleared or approved by the Food and Drug Administration.Performed By: #### ANDROST #### [facility] [address] [place] [address] Dr. Jaz BarajasTESTOSTERONE, TOTALon 86-39-6830Jxsatwwdmyyf [Mass/Vol]70 ng/dL Critically high8-60The [facility] HospitalComment on above:Performed By: #### TESTTOT ####[facility] Hwjdpmrvwa[address] [place], [place] [address]Dr. Jaz ChangPROF CHEM 8 (BAS METB)on 93-71-1422Hpqyq gap [Moles/Vol]11.5 mmol/LNormalThe [facility] HospitalComment on above:Performed By: #### BMP ####[facility] Rmvorynmgb[address] [place], [place] [address]Dr. Jaz ChangCalcium [Mass/Vol]9.1 mg/dLNormal8.5-10.1The [facility] HospitalComment on above:Performed By: #### BMP ####[facility] Xzivdptckk[address] [place], [place] [address]Dr.Yilan ChangChloride [Moles/Vol]103 mmol/LNormal 98-107The [facility] HospitalComment on above:Performed By: #### BMP ####[facility] Wjpjjntzwf[address] [place], [place] [address]Dr.Yilan ChangCO2 [Moles/Vol]28.0 mmol/ANfhqcl94.0-32.0The [facility] HospitalComment on above: Performed By: #### BMP ####[facility] [address] [address]Dr.Yilan ChangCreatinine [Mass/Vol]0.74 mg/dLNormal 0.55-1.02The [facility] HospitalComment on above:Performed By: #### BMP ####[facility] Qevyheqiqj[address] [place], [place] [address]Dr. Yilan ChangEGFR-AF GREEK>60Normal>=60The [facility] HospitalComment on above: Performed By: #### BMP ####[facility] Wajagajorx[address] [place], [place] [address]Dr.Yilan ChangEGFR-NON AF GREEK>60Normal>=60The [facility] HospitalComment on above:Performed By: #### BMP ####[facility] Fbhjcfgyqs[address] [place], [place] [address]Dr.Yilan ChangGlucose [Mass/Vol]197 mg/dLCritically fymz43-652Zaa [facility] HospitalComment on above: Performed By: #### BMP ####[facility] Dhsrbbwzpt[address] [place], [place] [address]Dr.Yilan ChangPotassium [Moles/Vol]4.5 mmol/LNormal 3.5-5.1The [facility] HospitalComment on above:Performed By: #### BMP ####[facility] Pareqqnsev[address] [place], [place] [address]Dr.Yilan Barajas Sodium [Moles/Vol]138 mmol/TReqxjr123-451Vtq [facility] HospitalComment on above: Performed By: #### BMP ####[facility] Sligqprioi[address] [place], [place] [address]Dr.Yilan ChangUrea nitrogen [Mass/Vol]11.0 mg/dLNormal 7.0-18.0The [facility] HospitalComment on above:Performed By: #### BMP ####[facility] Idodpxgozq[address] [place], [place] [address]Dr. Yilan ChangUrea nitrogen/Creatinine [Mass ratio]14.9 mg/mgNormalThe [facility] HospitalComment on above:Performed By: #### BMP ####[facility] Zmidadfmgd[address] [place], [place] [address]Dr.Yilan BarajasXR ABD FLAT_UP on 98-34-2791HU ABD FLAT_UPEXAMINATION: XR ABD FLAT_UP HISTORY: Abdominal pain COMPARISON: CT 01/31/2022 FINDINGS: BOWEL GAS PATTERN: Non-obstructed. FREE AIR: None. CALCIFICATIONS: 3 mm left pelvic calcification BONES: No fracture or visible bone lesion. OTHER: Negative. IMPRESSION: 3 mm left pelvic calcification, a phlebolith is favored Nonobstructive bowel gas pattern Electronically authenticated by: JOSE EDUARDO RIVERS Date: 2022-02-06 17:25[facility] Medical CenterCREATININEon 20-95-7695Wxqipdvvjk [Mass/Vol]0.74 mg/dLNormal 0.55-1.02St[facility] HospitalComment on above:Performed By: #### PROGLCM #### [facility] [address] [place] [address] Dr. Sebastian ChangEGFR-AF GREEK>60Normal>=60The [facility] HospitalComment on above:Performed By: #### PROGLCM #### [facility] [address] [place] [address] Dr. Sebastian ChangEGFR-NON AF GREEK>60Normal>=60[facility] on above:Performed By: #### PROGLCM #### [facility] [address] [place] [address] Dr. Jaz BarajasCT ABDOMEN W CONon 34-86-7780VS ABDOMEN W CONEXAMINATION: CT ABDOMEN W CON [...] Electronically authenticated by: JEYSON BLANTON Date: 2022-01-31 18:16[facility] Medical CenterACETONE SERUMon [id number]KFVPDIck [facility] HospitalComment on above:Performed By: #### ACETON ####[facility] [address] [address]Dr. Jaz MATHEWS ADMITon 92-85-2219GV [Catalytic activity/Vol]58 U/NJalmlp99-001RzjSt. Rita'S HospitalComment on above:Performed By: #### PREGU #### [facility] [address] [address] [address] Jaz Salguero.MB [Mass/Vol]0.64 ng/mLNormal<=3.60[facility] Comment on above:Performed By: #### PREGU #### [facility] [address] [address] [address] Jaz MckeonTROP5.3 pg/mLNormal4.0-51.3The [facility] HospitalComment on above:Result Comment: CUT-OFF POINTS HAVE BEEN ESTABLISHED BASED ON THE FOURTH UNIVERSAL DEFINITIONS OF MYOCARDIAL INFARCTION. THE UPPER REFERENCE LIMIT (URL) OF TROPONIN, DEFINED THE 99TH PERCENTILE OF cTnI DISTRIBUTION IN A REFERENCE POPULATION, HAS BEEN CONFIRMED THE DECISION THRESHOLD FOR MS DIAGNOSIS.Performed By: #### PREGU #### [facility] [address] [address] [address] Jaz SchmidO30 ng/mLNormal9-82The [facility] HospitalComment on above: Performed By: #### PREGU #### [facility] [address] [place] [address] Dr. Jaz Najera AUTO DIFFon 66-74-6568TKTL #0.1 103/ulNormal0.0-0.1The [facility] HospitalComment on above:Performed By: #### PREGU #### [facility] [address] [place] [address] Dr. Jza BarajasBasophils/100 WBC (Bld)0.5 %Normal0.2-2.0The [facility] Comment on above:Performed By: #### PREGU #### [facility] [address] [place] [address] Dr. Jaz Mahoney #0.3 103/ulNormal0.0-0.7The [facility] HospitalComment on above: Performed By: #### PREGU #### [facility] [address] [place] [address] Dr. Jaz Alamoosinophils/100 WBC (Bld)2.5 %Normal0.9-7.0The [facility] Comment on above:Performed By: #### PREGU #### [facility] [address] [place] [address] Dr. Jaz Alamorythrocyte distribution width (RBC) [Ratio]12.8 %Yyqxey62.0-15.0 The [facility] HospitalComment on above:Performed By: #### PREGU #### [facility] [address] [place] [address] Dr. Jaz BarajasHematocrit (Bld) [Volume fraction]41.0 %Fkebsm40.0-48.0The [facility] HospitalComment on above:Performed By: #### PREGU #### [facility] [address] [place] [address] Dr. Jaz BarajasHemoglobin (Bld) [Mass/Vol]13.6 g/pDAcslcy17.0-16.0St[facility] HospitalComment on above:Performed By: #### PREGU #### [facility] [address] [place] [address] Dr. Yilan ChangIG #0.03 10e3/ulNormal0.00-0.03The [facility] HospitalComment on above:Performed By: #### PREGU #### [facility] [address] [place] [address] Dr. Jaz Mak %0.3 %Normal0.0-0.5The [facility] HospitalComment on above: Performed By: #### PREGU #### [facility] [address] [place] [address] Dr. Jaz Osborn #2.7 103/ulNormal1.2-3.8The [facility] HospitalComment on above:Performed By: #### PREGU #### [facility] [address] [place] [address] Dr. Jaz Carrillohocytes/100 WBC (Bld)25.7 %Yomwvm49.5-60.0The [facility] HospitalComment on above:Performed By: #### PREGU #### [facility] [address] [place] [address] Dr. Jaz ValverdeUAL DIFF REQNONormalThe [facility] HospitalComment on above: Performed By: #### PREGU #### [facility] [address] [place] [address] Dr. Jaz Chiang (RBC) [Entitic mass]27.7 cxDbvecd28.7-34.0The [facility] HospitalComment on above:Performed By: #### PREGU #### [facility] [address] [place] [address] Dr. Jaz Dc (RBC) [Mass/Vol]33.2 g/vKKknqev24.9-35.2The [facility] HospitalComment on above:Performed By: #### PREGU #### [facility] [address] [place] [address] Dr. Jaz Reyes (RBC) [Entitic vol]83.5 sHOhkknr53.0-99.0The [facility] HospitalComment on above:Performed By: #### PREGU #### [facility] [address] [place] [address] Dr. Jaz James #0.8 103/ulNormal0.3-0.8The [facility] HospitalComment on above:Performed By: #### PREGU #### [facility] [address] [place] [address] Dr. Jaz Dejesusocytes/100 WBC (Bld)7.4 %Normal1.7-12.0[facility] Comment on above:Performed By: #### PREGU #### [facility] [address] [place] [address] Dr. Jaz Paul #6.6 103/ulCritically high1.4-6.5[facility] Comment on above:Performed By: #### PREGU #### [facility] [address] [place] [address] Dr. Jaz Cantrellutrophils/100 WBC (Bld)63.6 %Kjojph44.0-75.0The [facility] HospitalComment on above:Performed By: #### PREGU #### [facility] [address] [place] [address] Dr. Jaz Huberlet mean volume (Bld) [Entitic vol]11.5 fLNormal9.5-13.5The [facility] HospitalComment on above:Performed By: #### PREGU #### [facility] [address] [place] [address] Dr. Jaz BarajasPLT227 103/rwXcwdrr352-612Sxt [facility] HospitalComment on above: Performed By: #### PREGU #### [facility] [address] [place] [address] Dr. Jaz BarajasRBC4.91 106/ulNormal4.20-5.40The [facility] HospitalComment on above:Performed By: #### PREGU #### [facility] [address] [place] [address] Dr. Jaz BarajasWBC10.4 103/ulNormal4.0-11.0The [facility] HospitalComment on above:Performed By: #### PREGU #### [facility] [address] [place], [place] [address] Dr. Jaz Ponce CHEST WO W CONon 44-98-8577UCZ CHEST WO W CONEXAMINATION: CTA CHEST WO [...] Electronically authenticated by: JEYSON BLANTON Date: 2022-01-09 09:47[facility]-DIMERon 47-66-4831T-DIMER0.56 mg/L FEUCritically high 0.19-0.50[facility] on above:Result Comment: test repeated critical value verifiedPerformed By: #### DDIM, PT, PTT #### [facility] [address] [address] [address] Jaz Will-DIMER COMMENTSSEE BELOWWyandot Memorial Hospital on above:Result Comment: Increases in D-Dimer [...] Performed By: #### DDIM, PT, PTT #### [facility] [address] [address] [address] Jaz Reed URINE PROFILEon 73-13-8638Dhenampni Ql (U)NegativeNormal NEGATIVESt. Rita'S HospitalCombeaumont hospital on above:Performed By: #### PROGLCM #### [facility] [address] [address] [address] Jaz BarajasClarity (U)CLEARNormalCLEARSt. Rita'S HospitalComment on above: Performed By: #### PROGLCM #### [facility] [address] [address] [address] Jaz BarajasColor (U)YELLOWNormalYELLOWSt. Rita'S HospitalCombeaumont hospital on above: Performed By: #### PROGLCM #### [facility] [address] [place] [address] Dr. Jaz Larsen micrscopic examination will be performed if indicated. NormalSt. Rita'S HospitalComment on above:Performed By: #### PROGLCM #### [facility] [address] [place] [address] Dr. Jaz BarajasGlucose Ql (U)500 mg/dlAbnormalNEGBarnesville Hospital Comment on above:Performed By: #### PROGLCM #### [facility] [address] [place] [address] Dr. Jza BarajasHemoglobin Ql (U)NegativeNormalNEGBarnesville Hospital Comment on above:Performed By: #### PROGLCM #### [facility] [address] [address] [address] Jaz BarajasKetones Ql (U)NegativeNormalNEGATIVESt. Rita'S HospitalCombeaumont hospital on above:Performed By: #### PROGLCM #### [facility] [address] [place] [address] Dr. Jaz BarajasLEUKOCYTESNegativeNormalNEGATIVESt. Rita'S HospitalCombeaumont hospital on above:Performed By: #### PROGLCM #### [facility] [address] [address] [address] Jaz BarajasNitrite Ql (U)NegativeNormalNEGATIVESt. Rita'S HospitalComment on above:Performed By: #### PROGLCM #### [facility] [address] [address] [address] Jaz Ventura (U)6.0 [pH]Normal5-9The [facility] HospitalComment on above: Performed By: #### PROGLCM #### [facility] [address] [address] [address] Jaz BarajasSPEC GRAVITY>=1.783Giwusxwt1.005-<=1.025The [facility] Comment on above:Performed By: #### PROGLCM #### [facility] [address] [place] [address] Dr. Jaz Moura PROTEINNegativeNormalNEGATIVE/ TRACEThe [facility] Comment on above:Performed By: #### PROGLCM #### [facility] [address] [place] [address] Dr. Jaz Prakash MICRO INDNOT INDICATEDNormalThe [facility] HospitalComment on above:Performed By: #### PROGLCM #### [facility] [address] [place] [address] Dr. Jaz Tannerbilinogen Qn (U)0.2 {Oxana'U}/dLNormal0.2 - 1.0The [facility] HospitalComment on above:Performed By: #### PROGLCM #### [facility] [address] [place] [address] Dr. Jaz Ventura VENOUS BLOODon 04-87-3718HBO2 GELOFB25.2 mmHgCritically low 40.0-52.0The [facility] HospitalComment on above:Performed By: #### PHVEN #### [facility] [address] [place] [address] Dr. Jaz Ventura VENOUS7.388Eicpdv3.330-7.430The [facility] HospitalComment on above:Performed By: #### PHVEN #### [facility] [address] [place] [address] Dr. Jaz BarajasPREGNANCY URon 75-58-3888THNGAQKQR, QUALNegativeNormalNEGATIVEThe [facility] HospitalComment on above:Performed By: #### PREGU #### [facility] [address] [place] [address] Dr. Jaz De La Cruz 14(COMP METB)on 55-51-3202Osdjsao [Mass/Vol]3.2 g/dL Critically low3.4-5.0The [facility] HospitalComment on above:Performed By: #### PREGU #### [facility] [address] [place] [address] Dr. Jaz BarajasAlbumin/Globulin [Mass ratio]0.8 {ratio}NormalThe [facility] HospitalComment on above:Performed By: #### PREGU #### [facility] [address] [place] [address] Dr. Jaz BeebeP [Catalytic activity/Vol]109 U/JZjhomn43-592Gej [facility] HospitalComment on above:Performed By: #### PREGU #### [facility] [address] [place] [address] Dr. Jaz BeebeT [Catalytic activity/Vol]95 U/LCritically lgtz40-22Wfz [facility] HospitalComment on above:Performed By: #### PREGU #### [facility] [address] [place] [address] Dr. Jaz Rodriguez gap [Moles/Vol]11.7 mmol/LNormalThe [facility] Comment on above:Performed By: #### PREGU #### [facility] [address] [place] [address] Dr. Jaz BarajasAST [Catalytic activity/Vol]44 U/LCritically yitq12-57Mni [facility] HospitalComment on above:Performed By: #### PREGU #### [facility] [address] [place] [address] Dr. Jaz BarajasBilirubin [Mass/Vol]0.3 mg/dLNormal0.2-1.0[facility] Comment on above:Performed By: #### PREGU #### [facility] [address] [place] [address] Dr. Jaz BarajasCalcium [Mass/Vol]8.8 mg/dLNormal8.5-10.1[facility] Comment on above:Performed By: #### PREGU #### [facility] [address] [place] [address] Dr. Jaz BarajasChloride [Moles/Vol]102 mmol/USszhhl63-056Ini [facility] Comment on above:Performed By: #### PREGU #### [facility] [address] [place] [address] Dr. Jaz BarajasCO2 [Moles/Vol]25.3 mmol/QAzmedm89.0-32.0[facility] Comment on above:Performed By: #### PREGU #### [facility] [address] [place] [address] Dr. Jaz BarajasCreatinine [Mass/Vol]0.86 mg/dLNormal0.55-1.02The [facility] HospitalComment on above:Performed By: #### PREGU #### [facility] [address] [place] [address] Dr. Jaz AlamoGFR-AF GREEK>60Normal>=60The [facility] HospitalComment on above:Performed By: #### PREGU #### [facility] [address] [place] [address] Dr. Jaz AlamoGFR-NON AF GREEK>60Normal>=60The [facility] HospitalComment on above:Performed By: #### PREGU #### [facility] [address] [place] [address] Dr. Jaz BarajasGlobulin (S) [Mass/Vol]3.9 g/dLNormalThe [facility] HospitalComment on above:Performed By: #### PREGU #### [facility] [address] [place] [address] Dr. Jaz BarajasGlucose [Mass/Vol]230 mg/dLCritically evbh22-307Mfb [facility] HospitalComment on above:Performed By: #### PREGU #### [facility] [address] [place] [address] Dr. Jaz BarajasPotassium [Moles/Vol]4.0 mmol/LNormal3.5-5.1[facility] Comment on above:Performed By: #### PREGU #### [facility] [address] [place] [address] Dr. Jaz BarajasProtein [Mass/Vol]7.1 g/dLNormal6.4-8.2[facility] Comment on above:Performed By: #### PREGU #### [facility] [address] [place] [address] Dr. Jaz BarajasSodium [Moles/Vol]135 mmol/LCritically rqj005-090Aue [facility] HospitalComment on above:Performed By: #### PREGU #### [facility] [address] [place] [address] Dr. Jaz BarajasUrea nitrogen [Mass/Vol]15.0 mg/dLNormal7.0-18.0The [facility] HospitalComment on above:Performed By: #### PREGU #### [facility] [address] [place] [address] Dr. Jaz Raza nitrogen/Creatinine [Mass ratio]17.4 mg/mgNoMercy Health Allen HospitalComment on above:Performed By: #### PREGU #### [facility] [address] [place] [address] Dr. Jaz BarajasPROTIMEon 57-08-3312VKN Coag (PPP) [Relative time]0.96 {INR} NormalSt. Rita'S HospitalComment on above:Performed By: #### DDIM, PT, PTT #### [facility] [address] [place] [address] Dr. Jaz Macdonald GUIDELINESSEE BELOWAdena Pike Medical CenterComment on above:Result Comment: DESIRED INR: 2.0 - 3.0 CONDITIONS NOT LISTED BELOW 2.5 - 3.5 FOR PROSTHETIC HEART VALVE REPLACEMENT 2.5 - 3.5 RECURRENT THROMBOSIS Performed By: #### DDIM, PT, PTT #### [facility] [address] [place] [address] Dr. Jaz BarajasPT Coag (PPP) [Time]10.4 sNormal9.0-11.6[facility] Comment on above:Performed By: #### DDIM, PT, PTT #### [facility] [address] [place] [address] Dr. Jaz Muller 85-50-3133uXYG Coag (Bld) [Time]28.8 lMpqpzd13.3-36.2The [facility] HospitalComment on above:Performed By: #### DDIM, PT, PTT #### [facility] [address] [place] [address] Dr. Jaz French, HIGH SENSITIVITYon 09-95-5493YYWFFY0.5 pg/mLNormal 4.0-51.3The [facility] HospitalComment on above:Result Comment: CUT-OFF POINTS HAVE BEEN ESTABLISHED BASED ON THE FOURTH UNIVERSAL DEFINITIONS OF MYOCARDIAL INFARCTION. THE UPPER REFERENCE LIMIT (URL) OF TROPONIN, DEFINED THE 99TH PERCENTILE OF cTnI DISTRIBUTION IN A REFERENCE POPULATION, HAS BEEN CONFIRMED THE DECISION THRESHOLD FOR MS DIAGNOSIS.Performed By: #### PROGLCM #### [facility] [address] [place] [address] Dr. Jaz Chino 12-38-4449IUK8.769 uIU/mLNormal0.358-3.740The [facility] HospitalComment on above:Performed By: #### PREGU #### [facility] [address] [place] [address] Dr. Jaz Young [facility] BELOWNormLancaster Municipal HospitalComment on above: Result Comment: <0.34 UIU/ml HYPERTHYROID 0.34-5.60 UIU/ml EUTHYROID >5.60 UIU/ml HYPOTHYROIDPerformed By: #### PREGU #### [facility] [address] [place] [address] Dr. Jaz BarajasXR CHEST 1 Von 19-89-3935UC CHEST 1 VEXAMINATION: XR CHEST 1 V [...] authenticated by: JOSE EDUARDO RIVERS Date: 2022-01-09 08:29[facility] Vital Signs Date TimeVital SignValuePerforming TedushmbmZyxaqizh42-02-3239 13:28-0400Body viubky954 cmFredric [employer] DO Work Phone: [facility] HospitalDqwcsvluzs51-75-8507 13:28-0400Body mass index (BMI) [Ratio]43.58 kg/d0Dsaovdf [employer] DO Work Phone: [facility] HospitalNbkxwuihpe41-98-4698 13:Body fazbml025.58 kgFredjennie stuart medical center [employer] Technologiestz DO Work Phone: [facility] HospitalEinidxwuoy78-78-8364 16:15-0400Diastolic blood sczyomse73 mm[Hg]Ariane Joseholz AUTOMATIC CLIPPER-C Work Phone: [phone])413-[address] [place], [place] [address]353210-21-2025 16:15-0400 Heart rate64 /minLisa Aichholz AUTOMATIC CLIPPER-C Work Phone: [phone])284-[address] [place], [place] [address]10-21-2025 16:15-0400 Respiratory rate16 /minLisa Aichholz AUTOMATIC CLIPPER-C Work Phone: 1([phone])190-[facility]10-21-2025 16:15-0400 SaO2% (BldA) [Mass fraction]99 %Ariane Aichholz AUTOMATIC CLIPPER-C Work Phone: [phone])064-[facility]10-21-2025 16:15-0400 Systolic blood fmohgqkm645 mm[Hg]Ariane Aichholz AUTOMATIC CLIPPER-C Work Phone: [phone])[address]10-21-2025 15:26-0400 Body djubzcvbwiu82.4 [degF]Ariane Garciahholz AUTOMATIC CLIPPER-C Work Phone: [phone])362-[address] [place], [place] [address]10-21-2025 15:01-0400 Inhaled oxygen flow rate8 L/minLisa Aichholz AUTOMATIC CLIPPER-C Work Phone: 1([phone])555-[address] [place], [place] [address]35[address]10-21-2025 11:33-0400 Body jykdgk380.02 cmLisa Aichholz AUTOMATIC CLIPPER-C Work Phone: [phone])[address]33 [address]10-21-2025 11:33-0400 Body zhqmwe758.6 kgLisa Aichholz AUTOMATIC CLIPPER-C Work Phone: [phone] [address]10-08-2025 13:22-0400 Body uedrty434.02 Josselineisa Aichholz AUTOMATIC CLIPPER-C Work Phone: [phone]10-08-2025 13:22-0400 Body mass index (BMI) [Ratio]40.6 kg/m2Lisa Aichholz AUTOMATIC CLIPPER-C Work Phone: [phone] [address]10-08-2025 13:22-0400 Body mxnounvyneq20.5 [degF]Ariane Aichholz AUTOMATIC CLIPPER-C Work Phone: [phone] [address]10-08-2025 13:22-0400 Body divoma548.98 kgLisa Aichholz AUTOMATIC CLIPPER-C Work Phone: [phone]10-08-2025 13:22-0400 Diastolic blood ibblnfff57 mm[Hg]Ariane Aichholz AUTOMATIC CLIPPER-C Work Phone: [phone])357-[address] [place], [place] [address]10-08-2025 13:22-0400 Heart rate66 /minLisa Aichholz AUTOMATIC CLIPPER-C Work Phone: 1(940)677-[address] [place], [place] [address]35[address]10-08-2025 13:22-0400 Respiratory rate18 /minLisa Aichholz AUTOMATIC CLIPPER-C Work Phone: [phone] [place], [place] [address]10-08-2025 13:22-0400 SaO2% (BldA) [Mass fraction]98 %Ariane Aichholz AUTOMATIC CLIPPER-C Work Phone: [facility]10-08-2025 13:22-0400 Systolic blood mekcrynm137 mm[Hg]Ariane Garciaisabella AUTOMATIC CLIPPER-C Work Phone: [facility]10-16-2024 17:05-0400 Body kgkifi757 Juan Diego Garcialilliez AUTOMATIC CLIPPER Work Phone: [facility] HospitalEpqizpfufo28-70-5846 17:05-0400Body mass index (BMI) [Ratio]43.65 kg/m2Ariane Garcialilliez AUTOMATIC CLIPPER Work Phone: [facility] HospitalGqhfkujkzo23-47-5894 17:05-0400Body temperature 98.8 [degF]Ariane Garcialilliez AUTOMATIC CLIPPER Work Phone: [facility] HospitalShuwpevdco56-42-8239 17:05-0400Body sthjuo462.77 kgLisa Garcialilliez AUTOMATIC CLIPPER Work Phone: [facility] HospitalYpuqbqenbh79-03-5160 17:05-0400Diastolic blood qynpyxgo43 mm[Hg]Ariane Garcialilliez AUTOMATIC CLIPPER Work Phone: [facility] HospitalAdhldnushv00-35-1522 17:05-0400Heart rate81 /min Arianeismael Garcialilliez AUTOMATIC CLIPPER Work Phone: [facility] HospitalKdgbmkymbb20-24-3275 17:05-0400Respiratory rate18 /minLisa Pérezz AUTOMATIC CLIPPER Work Phone: [facility] HospitalIikepzrwyg24-61-7440 17:05-6376ArA9% (BldA) [Mass fraction]98 %Ariane Joseholz AUTOMATIC CLIPPER Work Phone: [facility] HospitalAllqetysas18-39-5143 17:05-0400Systolic blood oqcvlzfz658 mm[Hg]Ariane Joseholz AUTOMATIC CLIPPER Work Phone: [facility] HospitalUnoajlxbwi52-36-9697 12:54-0400Body temperature 97.88 [degF]Riky Le [facility]03-28-2024 12:54-0400 Diastolic blood cuyvvkfg35 mm[Hg]Riky Le [facility]03-28-2024 12:54-0400Heart rate78 /Francisco Le [facility]03-28-2024 12:54-0400 Respiratory rate20 /Francisco Le [facility]03-28-2024 12:54-4170OtV6% (BldA) [Mass fraction]98 %Riky Le [facility]03-28-2024 12:54-0400 Systolic blood mm[Hg]Riky Le [facility] Encounters Encounter DateEncounter TypeCare ProviderFacilityStart: 07-04-2025 End: 26-47-5885Npbazq follow up visit related to original pxFredric H Itzkowitz DO Work Phone: [facility] Surgical AssociatesComment on above:Umbilical hernia with obstruction, without gangrene (Primary Dx)Start: 07-04-2025 End: 03-37-0639xvjgbtlebhCCHEHFB H ITZKOWITZNot AvailableStart: 07-02-2025 End: 01-63-5921Kzkfvjmdy department patient visitAriane Tran Aichholz [facility]: 06-27-2025 End: 66-99-7564Dtzjwpbcb encounterFredric H Itzkowitz DO Work Phone: [facility] Surgical AssociatesStart: 06-27-2025 End: 22-34-0015Kodjyc follow up visit related to original pxFredric H Itzkowitz DO Work Phone: noOR Surgical AssociatesComment on above:Umbilical hernia with obstruction, without gangrene (Primary Dx)Start: 06-27-2025 End: 93-97-3775rrxojbiykeZEYPVQH H ITZKOWITZNot AvailableStart: 06-21-2025 End: 26-61-0136Owjbfylw Result EncounterFredric H Itzkowitz DO Work Phone: [facility] External Department UnsolicitedStart: 06-21-2025 End: 67-39-3575Geyczndw Result EncounterFredric H Trip DO Work Phone: [facility] External Department UnsolicitedStart: 06-21-2025 End: 17-62-4550Orjbvqbghj and management of inpatientFredric Itdayday DO-[address] [place] [employer] Work Phone: Start: 35-35-9612Bgi-patient / Non-visitAriane Wells AUTOMATIC CLIPPER-C-[facility] [employer] Work Phone: Start: 06-08-2025 End: 61-86-1536xvbnhwsoghCzln J Aichholz AUTOMATIC CLIPPER-C Work Phone: [facility] Work Phone: Start: 06-08-2025 End: 35-79-3896Luzpgfu encounter procedureAriane Wells AUTOMATIC CLIPPER-C-[facility] Work Phone: Start: 06-23-2024 End: 71-34-9955OddgflUhpd Aichholz AUTOMATIC CLIPPER Work Phone: [facility] CWM FMComment on above:Yeast infection (Primary Dx)Start: 06-16-2024 End: 11-04-0843Bprogt outpatient visit 25 minutesAriane Wells AUTOMATIC CLIPPER Work Phone: [facility] CWM FMComment on above:Encounter for well woman exam with routine gynecological exam (Primary Dx); Vaginal discharge; Screening for cervical cancer; Class 3 severe obesity due to excess calories without serious comorbidity with body mass index (BMI) of 40.0 to 44.9 in adult (CMS/HCC); Generalized anxiety disorder with panic attacks (CMS/HCC)Start: 06-16-2024 End: 74-59-7661Rgtafc flowsheetAriane Wells AUTOMATIC CLIPPER Work Phone: [facility] CWM FMStart: 06-16-2024 End: 46-13-2771Sobdrw flowsheetAriane Wells AUTOMATIC CLIPPER Work Phone: [facility] CWM FMStart: 06-16-2024 End: 19-63-0353Pnwtrylwe Result EncounterLisa Wells AUTOMATIC CLIPPER Work Phone: [facility] External Department UnsolicitedStart: 06-16-2024 End: 09-91-7720Hfjkgxi encounter procedureLisa Wells AUTOMATIC CLIPPER Work Phone: noms HealthcareStart: 05-30-2024 End: 82-58-7871Amkneopok Result EncounterGeneric External Data ProviderNOMS External Department UnsolicitedStart: 05-30-2024 End: 37-43-1859Unspueodd Result EncounterGeneric External Data ProviderNOMS External Department UnsolicitedStart: 05-26-2024 End: 46-47-9163IdxinjQmnr Aichholz AUTOMATIC CLIPPER Work Phone: [facility] CWM FMComment on above:Candidiasis of vagina (Primary Dx)Start: 05-11-2024 End: 37-29-9130Vesjbk outpatient visit 25 minutesNatalie A Felter PIECE GOODS CLERK-TOOLING SUPERVISOR Work Phone: [facility]oms SWS DERMComment on above: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CMS/HCC)Start: 05-11-2024 End: 69-49-3488Vubqxp flowsheetNatalie A Felter PIECE GOODS CLERK-TOOLING SUPERVISOR Work Phone: [facility] SWS DERMStart: 05-11-2024 End: 91-53-5948Eszflp flowsheetNatalie A Felter PIECE GOODS CLERK-TOOLING SUPERVISOR Work Phone: [facility] SWS DERMStart: 04-29-2024 End: 78-78-9825Zhhnzxi encounter procedureNatalie A Felter PIECE GOODS CLERK-TOOLING SUPERVISOR Work Phone: [facility] SWS DERMComment on above:Rash and other nonspecific skin eruption (Primary Dx)Start: 04-29-2024 End: 97-51-0279Pfxmvm flowsheetNatalie A Felter PIECE GOODS CLERK-TOOLING SUPERVISOR Work Phone: [facility] SWS DERMStart: 04-29-2024 End: 63-08-3405Diwtmq Renetta Owens PIECE GOODS CLERK-TOOLING SUPERVISOR Work Phone: [facility] SWS DERMStart: 02-25-2024 End: 10-54-1617Brwxmdzai Result EncounterGeneric External Data ProviderNOMS External Department UnsolicitedStart: 02-25-2024 End: 18-33-5702Yezfbdfnb Result EncounterGeneric External Data ProviderNOMS External Department UnsolicitedStart: 02-02-2024 End: 31-66-8774oanouxncotBxuekus Franklin Garcia MDFacility:[facility] Start: 11-27-2023 End: 50-56-0409Drdnxfsan department patient visitRiky LeFacility:[facility] Start: 11-27-2023 End: 48-70-2755Sqdcplzxd department patient visitRiky Le [facility] Start: 12-14-2022 End: 50-70-3211hexvpeogxmSIS ARIANE AICMARLEYFacility:C9Ngsln: 12-11-2022 End: 42-94-7760ghzqjqwlysSOZ ARIANE AICHISABELLAFacility:B5Jrxhv: 11-15-2022 End: 98-49-8326naacznvnmkPQ SKY DAVIS .Facility:O4Xfrmb: 11-10-2022 End: 88-02-5034rmpnsfdcibDW QUANG LANDA .Facility:U8Aydzs: 08-18-2022 End: 28-84-0683vyvzydaflsEPGGWS RODRIGUEZ .Facility:C3Zvnzn: 07-09-2022 End: 56-41-0465wsjoadpoflKV SKY DAVIS .Facility:D9Pxpdf: 05-14-2022 End: 56-59-8250oypzfecsgoAJP ARIANE AICHHOLZFacility:L4Hotqu: 00-21-7092Skzvqknor for preprocedural laboratory examinationDR [facility] Start: 05-08-2022 End: 85-05-7205rstzwjpqfoFT ROBERTO HSUMISFacility:N9Znpqz: 05-08-2022 End: 45-43-0648Tnbssusru for preprocedural laboratory examinationDR ROBERTO TIMMISFacility:G4Wwaqp: 04-18-2022 End: 56-58-7217fwgiuotjdmKLS ARIANE AICHHOLZFacility:D9Lsojl: 04-01-2022 End: 79-91-8040remuvdaermJRK ARIANE AICHHOLZFacility:W9Kuzdw: 02-06-2022 End: 23-74-6254iwzdwjshhpSOE ARIANE AICHHOLZFacility:L0Zqnji: 01-31-2022 End: 96-07-1794zhwlyrdetkPRKSVTRQ EBERLYFacility:P9Psuso: 21-04-9812czubmwpwyd TOOLING SUPERVISOR ARIANE AICHHOLZFacility:Y6Oylcu: 01-09-2022 End: 13-54-3251vgwqlkjhxoLDXKGE GLEN .Facility: Procedures DateProcedureProcedure DetailPerforming ClinicianStart: 23-86-2500Xntcrh of umbilical herniaLisa Russell AUTOMATIC CLIPPER-C Work Phone: Start: 06-66-3986SUGHKCN POCT GLUCOMETERSFredric H Trip DO Work Phone: Start: 84-28-9934FTH,APTIMA HPV,AGE GDLNLisa Garciahholz AUTOMATIC CLIPPER Work Phone: Start: 73-27-4111Dlepazsibie observation [Identifier] in Cervix by Cyto stainLisa Garciahholz AUTOMATIC CLIPPER Work Phone: Start: 34-78-3536KSKEE RESPIRATORY CULTUREGeneric External Data ProviderStart: 98-99-6006WRQY / NAIL BIOPSYNatalie Ismael Owens APRN-TOOLING SUPERVISOR Work Phone: Start: 84-67-7774Cve spinal canal cervical w/o contrast matrlGeneric External Data ProviderStart: 67-35-7731Srrbbbzjrmt observation [Identifier] in Cervix by Cyto stainNatalannah Owens PIECE GOODS CLERK-TOOLING SUPERVISOR Work Phone: Start: 34-61-2441RilpzvefgduAasoq Lewis Comment on above:normalStart: 77-42-0969Ksifpmv medicine imaging procedureRiky Le Comment on above:HIDA scan- normalStart: 10-30-2016 EsophagogastroduodenoscopyRiky Le Comment on above:esophagitisStart: 05-27-2016 PolysomnographyRiky Le Comment on above:CPAP @ 13cm H2O, small quattro, ramp time 20 minutesStart: 80-42-9248JbtsiftbnstwkTmixa Lewis History of ankle surgeryRiky Le History of tonsillectomyHx of tonsillectomyLisa Russell GILLILANDC Work Phone: Tympanic ventilation tube (physical object)Riky Le Tympanic ventilation tube (physical object)Riky Le Plan of Treatment DateCare ActivityDetailAuthorStart: 56-65-5129Cuuisglyx for malignant neoplasm of cervixNOOR HealthcareStart: 07-11-2025 End: 71-46-0089Jxxmrdx encounter bpguopovk04/10/2025 4:00 PM EST Office Visit [facility] [address] [place] [address] Viktoria Montilla DO [address] [facility] [address] [place] [address] [facility] AssociatesStart: 06-21-2025 [facility]: 90-40-2588MCLRI-19 Vaccine ( season)COVID-19 Vaccine ( season)[facility] HealthcareStart: 01-06-2025 Urine screening for proteinDiabetes: Urine Protein ScreeningNOOR Healthcare Start: 08-10-2024 End: 78-33-1350Hsfhxul encounter fvhsynmft10/10/2024 3:40 PM EST Office Visit [facility] [address] [place] [address] Mirela Owens APRN-TOOLING SUPERVISOR [address] [place] [address] [facility] SWS DERMStart: 07-26-2024 End: 24-78-6575Wrjnpqk encounter xzwnlyzuk68/25/2024 5:00 PM EST Office Visit [facility] [address] [place] [address] Ariane Wells, SHIV [address] [place] [address] [facility] CWM FMStart: 06-16-2024 End: 61-10-5819HCMBMLNP IMAGING PAP AND HPV DNA REFLEX HPV 16,18THINPREP IMAGING PAP AND HPV DNA REFLEX HPV 16,18 Pathology and Cytology Routine Encounter for wellwoman exam with routine gynecological exam Expected: 06/16/2024 (Approximate), Expires: 06/16/2025[facility] HospitalComment on above:Expected: 06/16/2024 (Approximate), Expires: 06/16/2025Start: 06-16-2024 End: 29-34-4155OQYKRGNOO (HTRX)VAGINITIS (HTRX) Lab Routine Vaginal discharge Expected: 06/16/2024 (Approximate), Expires: 06/16/2025[facility] Work Phone: Comment on above:Expected: 06/16/2024 (Approximate), Expires: 06/16/2025Start: 06-16-2024 End: 02-07-1238Anzzrim encounter procedureNOMS M FMComment on above:Arrived Start: 05-11-2024 End: 42-91-4064Zlilhoo encounter procedureNOMS SWS DERMComment on above:Arrived Start: 04-29-2024 End: 35-99-5490Mvqsunk encounter vpsrxjgla91/29/2024 3:25 PM EDT Office Visit [facility] [address] [place] [address] QuincyMirela petersonSAMUELN-TOOLING SUPERVISOR [address] [place] [address] Granuloma annulareNOMS SWS DERMComment on above:Granuloma annulareStart: 87-73-0273Unygerkthz A1c measurementDiabetes: Hemoglobin E8KSUQF HealthcareStart: 38-22-7853Psfwcodsp for malignant neoplasm of cervixNOMS HealthcareStart: 21-50-5784Rdiohsbgz for malignant neoplasm of cervixHPV/CotestNOMS HealthcareStart: 37-02-0060GCV Vaccines (1 - 3-dose SCDM series)HPV Vaccines (1 - 3-dose SCDM series)[facility] HealthcareStart: 2007 Hepatitis B Vaccines (1 of 3 - 19+ 3-dose series)Hepatitis B Vaccines (1 of 3 - 19+ 3-dose series)NOM HealthcareStart: 77-73-0622Qipvnmzpxgmq Vaccine: Pediatrics (0 to 5 Years) and At-Risk Patients (6 to 64 Years) (1 of 2 - PCV) Pneumococcal Vaccine: Pediatrics (0 to 5 Years) and At-Risk Patients (6 to 64 Years) (1 of 2 - PCV)NOM HealthcareStart: 83-14-1529Aiznylf of varicella vaccinationVaricella Vaccines (1 of 2 - 13+ 2-dose series)[facility] HealthcareStart: 83-96-7874Ntabhnrn screeningDiabetes: Retinopathy ScreeningNOOR HealthcareStart: 28-57-0820XMbQ/Tdap/Td Vaccines (1 - Tdap)DTaP/Tdap/Td Vaccines (1 - Tdap)[facility] HealthcareStart: 43-98-5244MJE Vaccines (1 of 1 - Standard series)MMR Vaccines (1 of 1 - Standard series)University HospitalComprehensive metabolic 2000 panel - Serum or PlasmaFirOhio State East HospitalCytology Cervical or vaginal smear or scraping studyPap smear Pathology and Cytology Routine Encounter for well woman exam with routine gynecological exam Ordered: 06/16/2024[facility] HealthcareComment on above:Ordered: 4Dermatopathology exam Dermatopathology exam Pathology and Cytology Timed Rash and other nonspecific skin eruption ReleaseUpon Ordering for 1 Occurrences starting 04/29/2024[facility] Work Phone: comment on above:Release Upon Ordering for 1 Occurrences starting 4Patient EducationKnow your [facility] Work Phone: [facility] Immunizations Immunization DateImmunizationNotesCare WllvqzyfMultnyjz60-10-8852Tjqqrry SARS-CoV-2 VaccinationNatalie Felter PIECE GOODS CLERK-TOOLING SUPERVISOR Work Phone: [facility] Payers DatePayer CategoryPayerPolicy [id number]-[id number] [id number] [id number] 2..840.1.769124.3.57[id number] 2..840.1.848047.3.57[id number] 2.16.840.1.010437.3.57[id number] 2.16.840.1.240798.3.57[id number] 2.16.840.1.284948.3.57[id number] 2.16.840.1.685346.3.57[id number] 2.16.840.1.952306.3.57[id number] 2.840.1.301395.3.57[id number] 2.840.1.934452.3.57[id number] 2.0.1.738750.3.57[id number] 2.0.1.845835.3.57[id number] 2..1.140465.3.57[id number] 2..1.105669.3.57[id number] 2..1.197959.3.579.[id number] 2..1.523002.3.57[id number] 2..1.436744.3.579.2.4[id number] 2..1.904906.3.579.2.529236-76-6636Vjmzuzw9051141689621-59-4643Ayaowxl [id number] 76j680y8-v850-3kb6-60z4-td2p0mr07z00WghzjvgUroummabp [id number] 1s113yx9-0h1f-8052-dw2n-[id number] 2.840.1.334514.3.579.2.062Iqlgbka46823205 2..1.196683.3.579.2.531 Social History DateTypeDetailFacilityStart: 66-58-0633Gateiwo smoking statusHeavy tobacco smoker (finding)[facility]Start: 89-82-1405Krptgfy smoking status NeverGeneral Surgery BellueStart: 03-16-2024 End: 73-09-2164Iqe [facility]art: 12-25-2023 End: 66-64-5872Xwfhsyr smoking status NHISSmokes tobacco dailyNOMS Healthcare Start: 86-01-1195Ltteols use and exposureSmokeless tobacco non-userNOMS HealthcareStart: 05-11-2024 End: 35-66-4000Cwcgnsrai beverage intakeEx-drinker (finding)[facility] Start: 03-16-2024 End: 58-54-7599Wwdjtxr of Social functionNOMS HealthcareStart: 90-00-6059Cfhqosk Commentcaffine: coffee: 20oz and soda: 1.5L bottle dailyNOMS HealthcareStart: 87-79-0763Qfy [facility] at [facility] hospitalNot on fileNOMS HealthcareSexFemale (finding) [facility] [place]: [id number] Assigned At [facility] Medical Equipment Procedure CodeEquipment CodeEquipment Original TextEquipment IdentifierDates [id number]: 01-28-2023 End: 03-16-2025 Goals DatePatient GoalDesired Activity/State Functional Status QvgxPizzpp[id number] statusPatient at Baseline [facility] Work Phone: [phone] Health Questionnaire 2 item (PHQ-2) [Reported]University HospitalXvsljqmtop32-51-9229Tnswygbmaa StatusN/[facility] Mental Status WmlpDgjjhihxsbEmzpwrXohbfnpg60-73-0343Sikpqfzrh functionCognitive Status [facility] Work Phone: Clinical Notes 05-14-2022 to 07-04-2025 Note Date & WkpnCwtgXokndjns52-33-7652 History of Present illness Narrative* Viktoria Montilla DO - 07/04/2025 1:45 PM EST Images from the original note were not included. Marilia Vera is a 35 y.o. female presents for 2nd Umb.hernia (Possible seroma, incision check) HPI: HPI Marilia presents for her first post-op check from umbilical hernia repair. She states last Friday shenoticed so drainage from the incision. She was seen at an ER (not [facility] and whoever saw her pressedtheir fingers into the umbilicus to get a look at what was going on This caused Marilia some pain. She was started on PO [...] further debridement if needed. documented in this [facility]10-27-2025 Telephone encounter Note* Telephone Encounter - Tabby Haley - 06/27/2025 1:37 PM EDT Return to work University [id number] Miscellaneous Notes* Telephone Encounter - Tabby Haley - 06/27/2025 1:37 PM EDT Return to work documented in this encounterUniversity HospitalPzcfkspcdc68-00-1667 History of Present illness Narrative* Viktoria Montilla DO - 06/27/2025 1:30 PM EDT Images from the original note were not included. Marilia Vera is a 35 y.o. female presents for Hosp. 1st po Umb. hernia repair (Incision check) HPI: HPI Marilia presents for her first post-op from umbilical hernia repair. She presented to [facility] with an incarcerated umbilical hernia and was transferred to [facility] for surgery. OBJECTIVE: Physical [...] see her PRN. documented in this encounterUniversity [id number] History and physical note Author Viktoria Montilla [facility] HospitalNote Date/TimeOctober 2024 2:01pm [place] [address] General Surgery H&P Signed Patient: Marilia Vera MR#: [id number] : 1990 Acct:[id number] Age/Sex: 35 / F Adm Date: 5 Loc: Room: [address] [place] [address] Type: ADM IN Attending Dr: Viktoria Montilla [...] was quite intense, she went to the [facility] emergency room where she was diagnosed with incarcerated umbilicalhernia with small bowel but no evidence of small bowel obstruction. I was called by the ER and asked for acceptance of the patient to [facility] fors[facility] management. The patient was subsequently [...] Gastrointestinal: Reports abdominal pain and Reports nausea [facility] Medical History (Updated 06/21/25 @ 13:59 by [...] List clean-up per request of Phys. [facility] (Updated 06/21/25 @ 13:56 by Viktoria Montilla DO) History of tubal ligation History of colonoscopy Problem List clean-up per request of Phys. EHR Cmte History of esophagogastroduodenoscopy (EGD) Problem List clean-up per request of Phys. EHR [facility] History of ear surgery tubes ears Problem List clean-up per request of Phys. EHR [facility] Family History Brother Hypertension Legacy FamHx [...] a 35-year-old female who presented to the [facility] emergency room with acute onsetof abdominal pain in the periumbilical area beginning at 6AM. She had nausea but no vomiting. She was evaluated in the emergency room and diagnosed with an incarcerated umbilical hernia. The ER physician contactedme and requested transfer to [facility] management. The patient presents [...] signed by Viktoria Montilla DO> 06/21/25 [address] [facility] Work Phone: 1(508) 263-808710-21-2025 History [place] [address] General Surgery H&P Signed Patient: Marilia Vera MR#: [id number] : 1990 Acct:[id number] Age/Sex: 35 / F Adm Date: 5 Loc: Room: [address] [place] [address] Type: ADM IN Attending Dr: Viktoria Montilla [...] was quite intense, she went to the [facility] emergency room where she was diagnosed with incarcerated umbilicalhernia with small bowel but no evidence of small bowel obstruction. I was called by the ER and asked for acceptance of the patient to [facility] forsurgical management. The patient was subsequently [...] Gastrointestinal: Reports abdominal pain and Reports nausea [facility] Medical History (Updated 06/21/25 @ 13:59 by [...] List clean-up per request of Phys. [facility]HR [facility] History (Updated 06/21/25 @ 13:56 by Viktoria Montilla DO) History of tubal ligation History of colonoscopy Problem List clean-up per request of Phys. EHR [facility] History of esophagogastroduodenoscopy (EGD) Problem List clean-up per request of Phys. EHR [facility] History of ear surgery tubes ears Problem List clean-up per request of Phys. EHR [facility] Family History Brother Hypertension Legacy FamHx [...] a 35-year-old female who presented to the [facility] emergency room with acute onsetof abdominal pain in the periumbilical area beginning at 6AM. She had nausea but no vomiting. She was evaluated in the emergency room and diagnosed with an incarcerated umbilical hernia. The ER physician contactedme and requested transfer to [facility] for [facility] management. The patient presents [...] 06/21/25 13 53 Signed By: 06/21/25 1401 [facility]10-08-2025 Evaluation note* Diagnosis Onset Date Resolution Status Admit Date ASHA (generalized anxiety disorder) acuteOctober 2024 1:15pmNicotine dependenceacuteOctober 2024 1:15pm Uncontrolled type 2 diabetes mellitus, without long-term current use of insulin acuteOctober 2024 1:15pmVitamin D deficiencyacuteOctober 2024 1:15pm Incarcerated umbilical herniaacuteOctober 2024 11:29am [facility] Work Phone: 1(253) 321-365210-08-2025 Hospital Discharge instructionsAmbulatory Orders* AMB POC Hgb A1C Time Frame: 06/08/25, Location: Determined By Patient [facility] Work Phone: 1(776) 265-749110-16-2024 History of Present illness Narrative* Ariane Wells [...] Continuous Glucose Sensor (FreeStyle Ksenia 2 Sensor) [facility] CHANGE SENSOR EVERY 14 DAYS cyclobenzaprine (FLEXERIL) [...] (GLUCOPHAGE-XR) 1,000 mg, Oral, 2 times daily OneScalingDatauch Ultra test strip USE ONE BEFORE EACH [...] nursing note reviewed. Exam conducted with a solid tire finisher present. Constitutional: General: She is not in [...] (BMI) of 40.0 to 44.9 in adult ([facility]) Vaginal discharge Health trax vaginitis exam Relevant Orders VAGINITIS (HTRX) Encounter for well woman exam with routine gynecological exam - Primary Thin prep Fu as per PAP indications Relevant Orders THINPREP IMAGING PAP AND HPV DNA REFLEX HPV 16,18 Pap smear Generalized anxiety disorder with panic attacks ([facility]) Worsening anxiety while in the car Will try increasing buspar 10mg TID Fu in 6 weeks Relevant Medications busPIRone (Buspar) 10 MG tablet Other Visit Diagnoses Screening for cervical cancer documented in this encounterUniversity [id number] History of Present illness Narrative* Mirela Owens, AURELIA-TOOLING SUPERVISOR - 05/11/2024 3:25 PM EDT Suture Removal [...] problems, see below: 1. 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 General instructions Take digu-gyj-wafvoxn and prescription medicines only as told by [...] provider. Document Revised: 05/03/2022 Document Reviewed: 05/03/2022 [employer] Patient Education 2022 Kiddy. Follow Up Care 11/27/2023 12:54:30 With:Georgi Pfeiffer Address: [address] [place] [address] Business (1) When:11/30/2023 15:21:31 [facility]03-28-2024 Evaluation + Plan noteExtracted from: Title:ED NoteAuthor:Theresa [...] EDT, Weight Dosing XR Shoulder Complete Right [facility]04-17-2023 NotePROCEDURE: XR ANKLE RT MIN 3 VIEWS [...] Electronically authenticated by: HAYDE VAN Date: 2022-12-16 07:21[facility]04-17-2023 NotePROCEDURE: XR KNEE RT 4V or > DATE: 12/14/2022 9:31 AM CDT COMPARISONS: None CLINICAL INDICATION: Pain of right knee joint FINDINGS: There is no evidence of fractures or other osseous abnormalities. No evidence of right knee joint effusion IMPRESSION: Right knee radiographs show no evidence of significant abnormalities. Electronically authenticated by: HAYDE VAN Date: 2022-12-16 07:17[facility]09-13-2022 NoteOPERATIVE NOTE OPERATION DATE: 05/14/2022 PRIMARY CARE PROVIDER: Ariane Wells CNP SURGEON: Roberto Briones M.D. PREOPERATIVE DIAGNOSIS: Left middle ear [...] recovery room in good condition.[facility] Diagnosis Vitamin D deficiency- Primary Type 2 diabetes mellitus without complication, with long-term current use of insulin ([facility]) Class 3 severe obesity due to excess calories without serious comorbidity with body mass index (BMI) of 40.0 to 44.9 in adult ([facility]) Muscle spasm Spasm of muscle Muscle spasm- Primary Spasm of muscle Class 3 severe obesity due to excess calories without serious comorbidity with body mass index (BMI) of 40.0 to 44.9 in adult ([facility]) Type 2 diabetes mellitus without complication, with long-term current use of insulin ([facility]) Current tobacco use Granuloma annulare Other specified erythematous condition Granuloma annulare- Primary Other specified erythematous condition Bipolar disorder, unspecified ([facility]) Bipolar disorder, unspecified Type 2 diabetes mellitus without complication, with long-term current use of insulin ([facility]) Class 3 severe obesity due to excess calories without serious comorbidity with body mass index (BMI) of 40.0 to 44.9 in adult ([facility]) Encounter for well woman exam with routine gynecological exam- Primary Vaginal discharge Leukorrhea, not specified as infective Screening for cervical cancer Screening for malignant neoplasm of the cervix Class 3 severe obesity due to excess calories without serious comorbidity with body mass index (BMI) of 40.0 to 44.9 in adult ([facility]) Generalized anxiety disorder with panic attacks ([facility]) documented in this encounter [facility] HealthcareEvaluation [facility]* Diagnosis Vitamin D deficiency- Primary Type 2 diabetes mellitus without complication, with long-term current use of insulin ([facility]) Class 3 severe obesity due to excess calories without serious comorbidity with body mass index (BMI) of 40.0 to 44.9 in adult ([facility]) Muscle spasm Spasm of muscle Muscle spasm- [...] disorder, recurrent, mildacute June 08, 2025 1:15pmNicotine dependenceacuteOct2024 1:15pmType 2 diabetes mellitus with insulin therapyacuteOct2024 1:15pmVitamin D deficiencyacuteOct2024 1:15pm [facility] Work Phone: Evaluation note* Diagnosis Vitamin D deficiency- Primary Type 2 diabetes mellitus without complication, with long-term current use of insulin ([facility]) Class 3 severe obesity due to excess calories without serious comorbidity with body mass index (BMI) of 40.0 to 44.9 in adult ([facility] Muscle spasm Spasm of muscle Muscle spasm- Primary Spasm of muscle Class 3 severe obesity due to excess calories without serious comorbidity with body mass index (BMI) of 40.0 to 44.9 in adult ([facility]) Type 2 diabetes mellitus without complication, with long-term current use of insulin ([facility]) Current tobacco use Granuloma annulare Other specified erythematous condition Granuloma annulare- Primary Other specified erythematous condition Bipolar disorder, unspecified ([facility]) Bipolar disorder, unspecified Type 2 diabetes mellitus without complication, with long-term current use of insulin ([facility]) Class 3 severe obesity due to excess calories without serious comorbidity with body mass index (BMI) of 40.0 to 44.9 in adult ([facility]) Encounter for well woman exam with routine gynecological exam- Primary Vaginal discharge Leukorrhea, not specified as infective Screening for cervical cancer Screening for malignant neoplasm of the cervix Class 3 severe obesity due to excess calories without serious comorbidity with body mass index (BMI) of 40.0 to 44.9 in adult ([facility]) Generalized anxiety disorder with panic attacks Umbilical hernia with obstruction, without gangrene- Primary Umbilical hernia with obstruction documented in this encounter [facility] HealthcareEvaluation note* Diagnosis Vitamin D deficiency- Primary Type 2 diabetes mellitus without complication, with long-term current use of insulin ([facility]) Class 3 severe obesity due to excess calories without serious comorbidity with body mass index (BMI) of 40.0 to 44.9 in adult ([facility]) Muscle spasm Spasm of muscle Muscle spasm- Primary Spasm of muscle Class 3 severe obesity due to excess calories without serious comorbidity with body mass index (BMI) of 40.0 to 44.9 in adult ([facility]) Type 2 diabetes mellitus without complication, with long-term current use of insulin ([facility]) Current tobacco use Granuloma annulare Other specified erythematous condition Granuloma annulare- Primary Other specified erythematous condition Bipolar disorder, unspecified ([facility]) Bipolar disorder, unspecified Type 2 diabetes mellitus without complication, with long-term current use of insulin ([facility]) Class 3 severe obesity due to excess calories without serious comorbidity with body mass index (BMI) of 40.0 to 44.9 in adult ([facility]) Encounter for well woman exam with routine gynecological exam- Primary Vaginal discharge Leukorrhea, not specified as infective Screening for cervical cancer Screening for malignant neoplasm of the cervix Class 3 severe obesity due to excess calories without serious comorbidity with body mass index (BMI) of 40.0 to 44.9 in adult ([facility]) Generalized anxiety disorder with panic attacks Umbilical hernia with obstruction, without gangrene- Primary Umbilical hernia with obstruction documented in this encounter [facility] Narrative No data available for this section [facility] Discharge instructionsAdditional Instructions DISCHARGE INSTRUCTIONS FOR GENERAL [...] directed for pain unless a prescription was provided.[facility] Work Phone: Progress note No data available for this section [facility] ClinicReason for referral (narrative)No reason for referral information availableGrant Hospital Work Phone: Summary Purpose Family History No Family History Records Found Relationship Condition Age at Onset Recorded Date/T kim Not Specified No pertinent family history Unknown brotherHypertensionUnknownfatherDeceasedUnknownHypertensionUnknownHeart disease UnknownDiabetes mellitusUnknown Advance Directives No Advanced Directives Records Found Advance Directive Response Recorded Date/ Time Advance Directives No May 5:12pm Reason for Referral SpecialtyDiagnoses / ProceduresReferred By ContactReferred To Contact Diagnoses 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CMS/HCC) Mirela Owens, PIECE GOODS CLERK-TOOLING SUPERVISOR [address] [place] [address] Referral IDStatusReasonStart DateExpiration DateVisits RequestedVisits [id number] Chief Complaint and Reason for Visit Chief [...] and content) DATE CREATED AUTHOR 12/19/2022 [facility] DATE CREATED AUTHOR AUTHOR'S ORGANIZ ATION 11/29/2023 [facility] DATE CREATED AUTHOR AUTHOR'S ORGANIZ ATION 02/13/2024 [facility] DATE CREATED AUTHOR AUTHOR'S ORGANIZ ATION 07/05/2025 [facility] DATE CREATED AUTHOR AUTHOR'S ORGANIZ ATION 07/07/2025 [facility] Patient Care team informatio n (unrecognized section and content) Team MemberRelationshipSpecialtyStart DateEnd Date Georges Shook MD [address] [place] [address] PCP - GeneralFamily Medicine02/19/23 Channing Freire MD [address] [place] [address] (Fax) PCP - [facility] [place] [facility]12/01/23Team MemberRelationshipSpecialtyStart DateEnd Date Georges Shook MD [address] [place] [address] PCP - GeneralFamily Medicine02/19/23 Channing Freire MD [address] [place] [address] (Fax) PCP - [facility] [place] [facility]12/01/23Team MemberRelationshipSpecialtyStart DateEnd Date Georges Shook MD [address] [place] [address] PCP - GeneralFamily Medicine02/19/23 Channing Freire MD [address] [place] [address] (Fax) PCP - [facility] [place] [facility]12/01/23Team MemberRelationshipSpecialtyStart DateEnd Date Georges Shook MD [address] [place] [address] PCP - GeneralFamily Medicine02/19/23 Channing Freire MD [address] [place] [address] (Fax) PCP - [facility] [place] [facility]12/01/23Team MemberRelationshipSpecialtyStart DateEnd Date Georges Shook MD [address] [place] [address] PCP - GeneralFamily Medicine02/19/23 Channing Freire MD [address] [place] [address] (Fax) PCP - [facility] [place] [facility]12/01/23Team MemberRelationshipSpecialtyStart DateEnd Date Georges Shook MD [address] [place] [address] PCP - GeneralFamily Medicine02/19/23Team MemberRelationshipSpecialtyStart DateEnd Date Georges Shook MD [address] [place] [address] PCP - GeneralFamily Medicine02/19/23Team MemberRelationshipSpecialtyStart DateEnd Date Georges Shook MD [address] [place] [address] PCP - GeneralFamily Medicine02/19/23Team MemberRelationshipSpecialtyStart DateEnd Date Georges Shook MD [address] [place] [address] PCP - GeneralFamily Medicine02/19/23Team MemberRelationshipSpecialtyStart DateEnd Date Georges Shook MD [address] [place] [address] [facility] - [facility] Medicine02/19/23 Channing Freire MD [address] [place] [address] [address] PCP - [facility] [place] [facility]12/01/23 Team Status: Active Member Role Status Dates Ariane Wells AUTOMATIC CLIPPER-C Primary Care Provider Active Team Status: Inactive Member Role Status Dates Ariane Wells , AUTOMATIC CLIPPER-C Primary Care Provider Active Start: June 08, 2025 End: June 08, 2025Ariane Wells AUTOMATIC CLIPPER-CAttending ProviderActiveStart: June 08, 2025 End: June 08, 2025Team MemberRelationshipSpecialtyStart DateEnd Date Georges Shook MD PCP - [facility]02/19/23 Channing Freire MD [address] [address] PCP - DELANEY Still [facility]12/01/23 Team Status: Active Member Role/Relationship Status Dates Ariane Wells , AUTOMATIC CLIPPER-C Primary Care Provider Active Team Status: Inactive Member Role/Relationship Status Dates Ariane Wells AUTOMATIC CLIPPER-C Primary Care Provider Active Start: June 08, 2025 End: June 08, 2025Ariane Wells AUTOMATIC CLIPPER-CAttending ProviderActiveStart: June 08, 2025 End: June 08, 2025 Team Status: Active Member Role/Relationship Status Dates Ariane Wells AUTOMATIC CLIPPER-C Primary Care Provider Active Start: June 21, 2025 Ariane Wells , AUTOMATIC CLIPPER-CAttending ProviderActiveStart: June 21, 2025 Team Status: Inactive Member Role/Relationship Status Dates Ariane Wells , AUTOMATIC CLIPPER-C Primary Care Provider Active Start: June 21, 2025 End: June 21, 2025edric Itzkowitz , DOAdmit ProviderActiveStart: June 21, 2025 End: June 21, 2025Fredric Trip , DOAttending ProviderActiveStart: June 21, 2025 End: June 21, 2025Team MemberRelationshipSpecialtyStart DateEnd Date Channing Freire MD [address] [facility] [address] [place] [address] (Fax) PCP - [facility] [place] [facility]12/01/23 Ariane Wells NP [address] [place] [address] Nurse PractitionerFamily Ehvrbvbg78/27/25Team MemberRelationshipSpecialtyStart DateEnd Date Channing Freire MD [address] [address] (Fax) PCP - [facility] [place] [facility]12/01/23 Ariane Wells, AUTOMATIC CLIPPER [address] [place] [address] Nurse PractitionerFamily Nqtklook81/27/25Team MemberRelationshipSpecialtyStart DateEnd Date Georges Shook MD PCP - GeneralFamily Medicine02/19/2310 Channing Freire MD [address] [place] [address] [place] [address] (Fax) PCP - [facility] [place] [facility]12/01/23 Ariane Wells NP [address] [place] [address] Nurse PractitionerTempleton Developmental Center Mtygytwd11/27/25Team MemberRelationshipSpecialtyStart DateEnd Date Channing Freire MD [address] [address] (Fax) PCP - [facility] [place] [facility]12/01/23 Channing Freire MD [address] [address] (Fax) [facility] - [facility]07/[facility]/25 Ariane Wells NP [address] [place] [address] Nurse PractitionerElbert [facility] Hospital06/27/25 Reason for Visit (unrecogniz ed section and content) ReasonCommentsRashSpecialtyDiagnoses / ProceduresReferred By ContactReferred To ContactDermatology Diagnoses Granuloma annulare Procedures HI OFFICE/OUTPATIENT NEW HIGH MDM 60 MINUTES Ariane Wells NP [address] [place] [address] Mirela Owens, PIECE GOODS CLERK-TOOLING SUPERVISOR [address] [place] [address] Referral IDStatusReasonStart DateExpiration DateVisits RequestedVisits [id number] Specialty Services Required /[id number] / Staple RemovalReasonCommentsHosp. 1st po Umb. hernia repairIncision emmpcStsfwvZfmnqebj7cj pow Umb.herniaStarted on Cephalexin 500mg today. Umbilical wound, odoriferous Goals (unrecognized section and content) Goals may [...] BE BASED ON THE PRIMARY CLINICAL RECORDS. [facility]. provides no warranty or guarantee of the accuracy or completeness of information in this document.
[2025-07-12 08:13] LABS: Glucose Urine UA NEGATIVE (NEGATIVE)
[2025-07-12 08:28] LABS: Cast Seen? NONE SEEN #/LPF (NONE SEEN); Crystals Seen? None Seen #/HPF (None Seen)
[2025-07-12 08:31] LABS: Cholesterol 165 mg/dL (<=200); HDL Cholesterol 33 mg/dL (40-60); Magnesium 2.1 mg/dL (1.8-2.4); Triglycerides 98 mg/dL (<=150); VLDL CHOLESTEROL 19.6 mg/dL
[2025-07-12 08:56] LABS: Thyroid Stimulating Hormone 5.289 uIU/mL (0.358-3.740)
== END 2025-07-12 07:24 | disposition home or self-care (01) ==
LOC: LAB 07:27
PROVIDERS: PCP Nurse Practitioner; Visit Provider Nurse Practitioner
DX: F41.1 Generalized anxiety disorder (principal); F33.0 Major depressive disorder, recurrent, mild; F17.200 Nicotine dependence, unspecified, uncomplicated; E11.9 Type 2 diabetes mellitus without complications; Z79.4 Long term (current) use of insulin; E55.9 Vitamin D deficiency, unspecified
CPT/HCPCS: 36415; 80061; 81001; 82043; 82306; 82570; 83735; 84443

== ENCOUNTER 2025-07-22 07:35 | Emergency (ER) | payer MEDICAID, SELFPAY ==
--- OUTSIDE RECORDS SUMMARY | 2025-07-11 16:00 | XMS_ITS | Encounter Summary ---
Author Organization [facility] Address [address] [place] [address] Care Team Providers Care Wire Saw Operator Name Role Phone Channing Freire MD Unavailable [phone] Ariane Wells NP Unavailable [phone] Unallocated, Noms Provider Primary Care Provi suman Reason for Visit * ReasonCommentsWound Check Encounter Details DateTypeDepartmentCare Team (Latest Contact Info)Mqurkkzwney27/10/2025 4:00 PM ESTOffice Visit [facility] [address] [address] Abdulkadir Dominique, 703 [facility] [address] [place] [address] Umbilical hernia with obstruction, without gangrene (Primary Dx) Social History Tobacco UseTypesPacks/DayYears UsedDateSmoking Tobacco: Every DaySmokeless Tobacco: NeverAlcohol UseStandard Drinks/WeekCommentsNot Currently0 (1 standard drink = 0.6 oz pure alcohol)caffine: coffee: 20oz and soda: 1.5L bottle daily PHQ-2AnswerDate RecordedPatient Health Questionnaire-2 Rzpey0474 CommentsUnknownSex and Gender InformationValueDate RecordedSex Assigned at Not on fileLegal YcbQuljlk23/15/2023 9:50 PM EDTGender IdentityNot on fileSexual OrientationNot [...] Plan of Treatment DateTypeDepartmentCare Team (Latest Contact Info)Qigdfwxxgzz20/24/2025 4:00 PM ESTOffice Visit [facility] [address] [phone] Abdulkadir Dominique DO [address] [address] documented as of this encounter Visit Diagnoses Diagnosis Umbilical hernia with obstruction, without gangrene- Primary Umbilical hernia with obstruction documented in this encounter Additional Health Concerns AssessmentNoted TimePHQ-9 Depression Total Score: 8012/25/2023 1:28 PM EDT documented as of this encounter Care Teams Team MemberRelationshipSpecialtyStart DateEnd Date Channing Freire MD [address] [place] [address] (Fax) PCP - DELANEY Still [facility]12/01/23 Unallocated, Noms MD Allan [address] [place] [address] PCP - GeneralFamily Dmxsovoo83/4/25 Ariane Wells NP [address] [place] [address] Nurse PractitionerFamily Ituwcyuw53/27/25documented as of this encounter
--- OUTSIDE RECORDS SUMMARY | 2025-07-13 10:32 | XMS_ITS | Continuity of Care Document ---
Author Organization [facility] Address [address] [place] [address] Phone Care Team Providers Care Zinc Plate Grainer Name Role Phone Ariane Wells [employer]TAIN-C Primary Care Provider [phone] Ariane Wells [employer]TAIN-C Attending Provider Abdulkadir Dominique DO Admit Provider Abdulkadir Dominique DO Attending Provider Juan Alberto Shultz DO Emergency Provider Care Teams Patient Care Team Team Status: Active Member Role/Relationship Status Dates Ariane Wells NP-C Primary Care Provider Active Visit Care Team Team Status: Inactive Member Role/Relationship Status Dates Ariane Wells [employer]TAIN-C Primary Care Provider Active Start: June 08, 2025 End: June 08, 2025Ariane Wells NP-CAttending ProviderActiveStart: June 08, 2025 End: June 08, 2025 Visit Care Team Team Status: Active Member Role/Relationship Status Dates Ariane Wells [employer]TAIN-C Primary Care Provider Active Start: June 21, 2025 Ariane Wells NP-CAtgeovanny ProviderActiveStart: June 21, 2025 Visit Care Team Team Status: Inactive Member Role/Relationship Status Dates Ariane Wells [employer]TAIN-C Primary Care Provider Active Start: June 21, 2025 End: June 21, 2025Fredric DO TripAdmit ProviderActiveStart: June 21, 2025 End: June 21, 2025Fredalexy Dominique , DOAttending ProviderActiveStart: June 21, 2025 End: June 21, 2025 Visit Care Team Team Status: Inactive Member Role/Relationship Status Dates Ariane Wells NP-C Primary Care Provider Active Start: July 02, 2025 End: July 03, 2025Juan Alberto Shultz DOEmergenenzo ProviderActiveStart: July 02, 2025 End: July 03, 2025 Patient Care Team Team Status: Active Member Role/Relationship Status Dates Ariane Wells NP-C Primary Care Provider Active Start: July 12, 2025 Deanna Aponte ProviderActiveStart: July 12, 2025 Patient Care Team Team Status: Inactive Member Role/Relationship Status Dates Ariane Wells NP-C Primary Care Provider Active Start: July 13, 2025 End: July 13, 2025Deanna Aponte ProviderActiveStart: July 13, 2025 End: July 13, 2025 Chief Complaint and Reason for Visit Chief Complaint Admit Date follow up from cancelled appointment Oct benoit 2024 1:15pm Umbilical Hernia June 21, 2025 1 1:29am post surgical issues July 02, 2025 7:54pm Reschedule July 13, 2025 2:34pm Reason for Visit Admit Date ASHA (generalized anxiety disorder) Octob er 2024 1:15pm Nicotine dependence June 08, 2025 1: 15pm Uncontrolled type 2 diabetes mellitus, without long-term current use of insulin June 08, 2025 1:15pm Vitamin D deficiency June 08, 2025 1 :15pm Incarcerated umbilical hernia June 212024 11:29am ASHA (generalized anxiety disorder) Novem 2024 2:34pm History of umbilical hernia repair Novem 2024 2:34pm Nicotine dependence July 13, 2025 2:34pm Uncontrolled type 2 diabetes mellitus, without long-term current use of insulin July 13, 2025 2:34pm Vaginal yeast infection July 13, 2:34pm Reason for Referral Type Reason(s) Provider Provider Contact Information Franco griffin Address Start Date You may use alternating doses of ibuprofen (Motrin) 600 mg followed 3 hours later by 2 extra strength Tylenol's, followed 3 hours later by ibuprofen 600 mg. You may continue this repeating schedule for pain management.Abdulkadir Dominique Chelsi Phone: [phone] [address] [place] [address]ew[address] Marc Russell [facility] Phone: [phone] [place] [address] Allergies, Adverse Reactions, Alerts Allergen Type Severity Reaction Last Updated Verified Status prednisone Allergy Unknown Shakiness, shaking Novemb er 2024 7:03pm Yes Active Social History Smoking Status Status Start Date End Date Date of Observa tion Smokes tobacco daily (finding) July 02, 2025 8:17pm Observation Status Observation Response Date of Response Legal Sex Female (finding) [facility] Family History Relationship Condition Age at Onset Recorded Date/T kim Not Specified No pertinent family history Unknown brotherHypertensionUnknownfatherDeceasedUnknownHypertensionUnknownHeart disease UnknownDiabetes mellitusUnknown Problems Active Problems Problem Diagnosis/Recorded Date Onset Date Stat us Granuloma annulare May 20, 2025 4:57pm Unknown Active Nicotine dependence May 20, 2025 4:55pm Unknow n Active Insomnia May 20, 2025 4:56pm Unknown Active BRENT (obstructive sleep apnea) May 20, 2025 4:5 6pm Unknown Active ASHA (generalized anxiety disorder) May 20 4:57pm Unknown Active History of umbilical hernia repair July 13, 2025 6:40am Unknown Active Dysfunction of both eustachian tubes May 20, 2 025 4:56pm Unknown Active Type 2 diabetes mellitus wit h insulin therapy May 20, 2025 4:57pm Unknown Active Vaginal yeast infection July 13, 2025 3:23pm Unk nown Active Bipolar disorder May 20, 2025 4:55pm Unknown Active Acquired deformity of right ankle May 20, 2025 4:54pm Unknown Active Umbilical hernia May 20, 2025 4:56pm Unknown Active DDD (degenerative disc disease), lumbar May 4:55pm Unknown Active Morbid obesity due to excess calories May 20, 2025 4:55pm Unknown Active Uncontrolled type 2 diabetes mellitus, without long-term current use of insulin June 08, 2025 1:13pm Unknown Active Major depressive disorder, r ecurrent, mild May 20, 2025 4:55pm Unknown Active ADHD (attention deficit hype ractivity disorder) May 20, 2025 4:54pm Unknown Active Conductive hearing loss May 20, 2025 4:55pm Un known Active Vitamin D deficiency May 20, 2025 4:56pm Unkno wn Active Inactive/Resolved Problems Problem Diagnosis/Recorded Date Onset Date Stat us UTI (urinary tract infection) July 02, 2025 11:47 pm Unknown Resolved Postoperative pain July 02, 2025 11:47pm Unknown Resolved Incarcerated umbilical hernia June 21, 2025 12:58 pm Unknown Resolved Medications Medication Status Dose Units Route Directions Qty Days Refills S tart Date Stop Date End Date Reason(s) Instructions Adherence Dulaglutide (Trulicity) 0.75 mg/0.5 mL pen injector Active 0.75 MG SUBCUT every week 2 2Noveer 2024 12:00amUncontrolled type 2 diabetes mellitus, without long- term current use of insulinComplies with drug therapyCephalexin 500 mg capsule Tjmvpahadsxu961ZONCWdmzj 8 itdzz303Vxsdnhd2024 11:00pmJuly 02, 2025 7:06pmOxycodone-Acetaminophen (Percocet) 5-325 mg uadlvfBfmahtojscfw7UQLIEK3H as needed for vsev2953Gvdzitv2024Nov2024 3:16pmIrreducible umbilical hernia Umbilical hernia with obstruction, without gangreneCephalexin 500 mg capsule Eiafczrgruga845CPXICprdf 8 cjcli8630Relzuydr2024 11:00pmJuly 13, 2025 3:16pmCephalexin 500 mg lzovschExhvts740GDPJVswk times lnpoe5265Nhgelwus2024 11:00pmUnknownTrazodone 50 mg fpfqerFsbkgprxmpqa31YPXGBvwecRld 2019 11:00pmSept2024 5:02pmOndansetron Hcl 4 mg tabletDiscontinued4 MGPOAs Directed as needed for NauseaMay 2019 11:00pmOct2024 1:11pmPantoprazole 40 mg tablet,delayed release (DR/EC)Qvmtsmzyydgk07IOYCXoufc May 2019 11:00pmOct2024 1:11pmFluoxetine 10 mg capsule Gadgdsoewipr58GXIACaafpPhm 6th, 2020 11:00pmpt2024 5:00pm Fluoxetine 20 mg jfsvpebPecyradqvjpi52JJQJAeuckZfh 6th, 2020 11:00pmOct2024 1:11pmMetformin 500 mg tablet extended release 24 mfBlhksozfkgyr6WALNSMrzqu dailyMa2019 11:00pmOctober 2024 1:12pmCalcium Carbonate (Calcium 600) 600 mg calcium (1,500 mg) FnnrucBqapbzjhsclr368YXZILzebnQau 6th, 2020 11:00pmSept2024 4:58pmBaclofen 10 mg SouhckSegltyyrzcxu81REQKSt DirectedJanuary 05, 2020 11:00pmpt2024 4:58pmMagnesium 250 mg Tablet Ruvzsfqdzexo483HDRBFrecaXfw 6th, 2020 11:00pmOctober 2024 1:11pm Cholecalciferol (Vitamin D3) (Vitamin D3) 50 mcg (2,000 unit) TabletDiscontinued 2000UNITPODailyJanuary 05, 2020 11:00pmpt2024 4:58pmFluoxetine 40 mg tutcfdlOnmortjngkln99AORJTslonTzevkhjcr 18th, 2025 11:00pmOct2024 1:11pmCyclobenzaprine 10 mg lvfrzuGxgzjfwklimo47IPTNAfeon daily as needed May 19, 2025 11:00pmOctober 2024 1:10pmTrazodone 50 mg tablet Qubvnyxbvpwn072FSBSBwtnn at bedtime as neededMay 19, 2025 11:00pmOctober 2024 1:11pmTizanidine 4 mg efxdgiUyjvaxcijscl2JBHTFerrd daily as needed May 19, 2025 11:00pmOctober 2024 1:11pmBuspirone 10 mg tablet Dnbzkjznjjri78QRWIPemrk times dailyMay 19, 2025 11:00pmOctober 2024 1:12pmPravastatin 20 mg nubajcKvurnbjxqjjp17COLFAdlqz at bedtimeSeptember 2024 11:00pmOctlourdes hospital 2024 1:11pmGabapentin 100 mg oghnnooSwmxdmxrhpme060XJCD Three times dailySeptember 2024 11:00pmOct2024 1:11pmAlbuterol Sulfate 90 mcg/actuation HFA aerosol tvptzgzXrifrhelumvl9BHGKTPEAWRISEPCHEOJ 4-6 HOURS as neededSept2024 11:00pmOctober 2024 1:10pm Spironolactone (Aldactone) 50 mg jsfqsoDuuzxdhegtbl67EVMBMgbyhJnbydhaiy 2024 11:00pmOctlourdes hospital 2024 1:11pmAripiprazole 15 mg poewciBzlzxqanyjoe90ORWJ DailySeptember 2024 11:00pmOctlourdes hospital 2024 1:10pmCholecalciferol (Vitamin D3) 125 mcg (5,000 unit) qupoxkYsczuqnzmbid832MTYTHCylcaVyvjqaane 2024 11:00pmOctober 2024 1:10pmEmpagliflozin (Jardiance) 25 mg tablet Qdplktkzrfkf33KFSOUpecqAuasbmnew 2024 11:00pmOctlourdes hospital 2024 1:10pm Buspirone 10 mg wtjgwsVlrokjsacdlp42AFVAMsfsi daily as needed for anxietyOct2024 1:12pmOctober 2024 10:38amGeneralized anxiety disorder Generalized anxiety disorderMetformin 500 mg tablet extended release 24 hrActive 500MGPOTwice ltawi413Ypnsyia2024 11:00pmUncontrolled type 2 diabetes mellitus, without long-term current use of insulinstart with 1 pill daily for 2 weeks, then increase to 1 pill twice a dayComplies with drug therapyTirzepatide (Mounjaro) 5 mg/0.5 mL pen bskeuwjgYvmiwkzbzpie4GVZZZGWOtathk dgvc21Pwizeri2024 11:00pmNov2024 12:50pmUncontrolled type 2 diabetes mellitus, without long-term current use of insulinBuspirone 5 mg qtlpcxEasjlb2XEVNOakji daily as needed for efcfiqp582Xfsbytut2024 12:00amGeneralized anxiety disorder Generalized anxiety disorderComplies with drug therapyFluconazole 150 mg tablet Pzgbqpeljxeo541CYTRU3O40Unwtzgvu 2024 12:00amNove2024 3:23pm take dose #1, 3 days later dose #2, and 3 days later dose #3Fluconazole 150 mg nknfayIsthwp570NMWRX8E30Biwxugyf 2024 3:22pmCandidiasis of vagina Acute candidiasis of vulva and vaginatake dose #1, 3 days later dose #2, and 3 days later dose #3Complies with drug therapyCholecalciferol (Vitamin D3) 50 mcg (2,000 unit) tjkgujdYszert28ZUMNHNfihm038Inotlwrv 2024 12:00amVitamin D deficiency Vitamin D deficiency, unspecifiedComplies with drug therapyBlood Sugar Diagnostic (Blood Glucose Test) stripDiscontinued0.Sxdxv2448Ywxhvscn 2024 12:00amN[facility] 20[facility] 3:31pmUncontrolled type 2 diabetes mellitus, without long-term current use of insulinAs directed once a dayBlood Sugar Diagnostic (Blood Glucose Test) stripActive0.Stnbr3197Xzhkhdbd 2024 3:31pm Uncontrolled type 2 diabetes mellitus, without long-term current use of insulin As directed once a day Procedures Procedure Date Performed Status Repair Abdominal Wall, Open Approach June active CT abdomen pelvis w con July 02, 2025 7:37p m completed Urine Culture July 02, 2025 completed Relevant Diagnostic Tests and/or Laboratory Data Laboratory Results Test Collection Date/Time Result Date/Time Result Interpretation Reference Range Result Comment Performing Site Bedside Hemoglobin A1c June 08, 2025 1:33pm June 1:34pm 11.6 % Human Chorionic Gonadotropin, QualJune 21, 2025 7:15amOctober 2024 7:15amNEGATIVENEGATIVELactic Acid LevelJune 21, 2025 7:15amOctober 2024 7:15am0.6 mmol/L0.4-2.0Anion GapJune 21, 2025 7:15amOctober 2024 7:15am13.2Basophils # (Auto)June 21, 2025 7:15amJune 21, 2025 7:15am 0.0 10 3/uL0.0-0.1Urine Microscopic ReviewJune 21, 2025 8:00amOct2024 8:00amNOUrine Other CastsJuly 12, 2025 7:30amNONE SEEN #/LPFNONE SEEN Urine Random CreatinineJuly 12, 2025 7:30amNove2024 7:30am 126.86 mg/dL20.00-300.0025-Hydroxy Vitamin D TotalJuly 12, 2025 7:43am July 12, 2025 7:43am22.9 ng/mL<20 ng/mL Vit D jjvfqgksy45-<30 ng/mL Vit D uvetlycdesax43-152 ng/mL Vit D sufficient>100 ng/mL Potential ToxicityThyroid Stimulating Hormone 3rd GenJuly 12, 2025 7:43amNove2024 7:43am 5.289 u[iU]/mLAbove high normal0.358-3.740Cholesterol/HDL RatioNove2024 7:43amNove2024 7:43am5.03.3 - 4.4 LOW RISK4.4 - 7.1 AVERAGE RISK7.1 - 11.0 MODERATE RISK>11.0 HIGH RISKMagnesium LevelJuly 12, 2025 7:43amNove2024 7:43am2.1 mg/dL1.8-2.4Albumin/Globulin RatioJune 21, 2025 7:15amJune 21, 2025 7:15am0.9Basophils (%) (Auto)June 21, 2025 7:15amOct2024 7:15am0.4 %0.2-2.0Urine BilirubinJune 21, 2025 8:00amJune 21, 2025 8:00amNEGATIVENEGATIVEUrine Other CrystalsJuly 12, 2025 7:30amNone Seen #/HPFNone SeenUrine Random MicroalbuminJuly 12, 2025 7:30amNove2024 7:30am<1.3 mg/dL<=30.0Cholesterol Level July 12, 2025 7:43amNovember 2024 7:33wa253 mg/dL<=200AlbuminOct2024 7:15amOctober 2024 7:15am3.7 g/dL3.4-5.0Eosinophils # (Auto) June 21, 2025 7:15amOctober 2024 7:15am0.1 10 3/uL0.0-0.7Urine Occult BloodOctober 2024 8:00amOctober 2024 8:00amNEGATIVENEGATIVEUrine BacteriaNovember 2024 7:30amTRACE #/HPFAbnormal (applies to non-numeric results)NONE SEENHDL CholesterolNovember 2024 7:43amNovember 2024 7:43am33 mg/dLBelow low paqnjd17-27> or =60 mg/dl - LOW CARDIOVASCULAR RISK<40 mg/dl - HIGH CARDIOVASCULAR RISKAlkaline PhosphataseOct2024 7:15am June 21, 2025 7:15am72 U/Z11-500Cmzlrkaokhr (%) (Auto)June 21, 2025 7:15amOct2024 7:15am1.3 %0.9-7.0Urine AppearanceOct2024 8:00amOct2024 8:00amCLEARCLEARUrine BilirubinNovember 2024 7:30amNEGATIVENEGATIVELDL Cholesterol, CalculatedNov2024 7:43am July 12, 2025 7:52lv307.0 mg/dL<100 mg/dl SLBQSQW823-017 mg/dl NEAR OR ABOVE QINZZFD014-194 mg/dl BORDERLINE MMKO459-348 mg/dl HIGH>190 mg/dl VERY HIGH Alanine Aminotransferase (ALT/SGPT)June 21, 2025 7:15amOct2024 7:15am22 U/U35-79NravkxugdmAmcmmrf 2024 7:15amOctober 2024 7:15am 40.3 %36.0-48.0Urine ColorOctober 2024 8:00amOctober 2024 8:00am YELLOWYELLOWUrine Occult BloodNovember 2024 7:30amNEGATIVENEGATIVE Triglycerides LevelNovember 2024 7:43amNovember 2024 7:43am98 mg/dL <=150Aspartate Amino Transf (AST/SGOT)June 21, 2025 7:15amOct2024 7:15am13 U/LBelow low uxumaa55-72JyssekmkiyYyzwkln 21st, 2025 7:15amOct2024 7:15am13.7 g/dL12.0-16.0Urine Glucose (UA)June 21, 2025 8:00am June 21, 2025 8:16yk454 mg/dLAbnormal (applies to non-numeric results) NEGATIVEUrine AppearanceJuly 12, 2025 7:30amCLEARCLEARVLDL Cholesterol July 12, 2025 7:43amNovember 2024 7:43am19.6 mg/dLBUN/Creatinine RatioOct2024 7:15amOct2024 7:15am27.4Immature Granulocyte # (Auto)June 21, 2025 7:15amOct2024 7:15am0.02 10 3/uL0.00-0.03 Urine KetonesOct2024 8:00amOct2024 8:00amTRACE mg/dL Abnormal (applies to non-numeric results)NEGATIVEUrine ColorJuly 12, 2025 7:30amLT. YELLOWYELLOWBlood Urea NitrogenOct2024 7:15amJune 21, 2025 7:15am17.0 mg/dL7.0-18.0Immature Granulocyte % (Auto)June 21, 2025 7:15amOct2024 7:15am0.2 %0.0-0.5Urine Leukocyte EsteraseOct2024 8:00amOct2024 8:00amNEGATIVENEGATIVEUrine Glucose (UA)July 12, 2025 7:30amNEGATIVE mg/dLNEGATIVECalcium LevelOct2024 7:15am June 21, 2025 7:15am9.1 mg/dL8.5-10.1Lymphocytes # (Auto)June 21, 2025 7:15amOct2024 7:15am3.0 10 3/uL1.2-3.8Urine NitriteOct2024 8:00amOct2024 8:00amNEGATIVENEGATIVEUrine KetonesNovember 2024 7:30amNEGATIVE mg/dLNEGATIVEChloride LevelOct2024 7:15amJune 21, 2025 7:92vp945 mmol/W10-794Yzvgyapiita (%) (Auto)June 21, 2025 7:15am June 21, 2025 7:15am30.3 %20.5-60.0Urine pHOct2024 8:00amOct2024 8:00am5.55.0-9.0Urine Leukocyte EsteraseNovember 2024 7:30am NEGATIVENEGATIVECarbon Dioxide LevelJune 21, 2025 7:15amOct2024 7:15am26.0 mmol/L21.0-32.0Mean Corpuscular HemoglobinJune 21, 2025 7:15am June 21, 2025 7:15am27.5 pg26.7-34.0Urine ProteinJune 21, 2025 8:00am June 21, 2025 8:00amNEGATIVE mg/dLNEG/TRACEUrine MucusNovember 2024 7:30amTRACEAbnormal (applies to non-numeric results)NONE SEENCreatinineJune 21, 2025 7:15amJune 21, 2025 7:15am0.62 mg/dL0.55-1.02Mean Corpuscular Hemoglobin ConcentJune 21, 2025 7:15amOct2024 7:15am34.0 g/dL 29.9-35.2Urine Specific GravityJune 21, 2025 8:00amJune 21, 2025 8:00am>=1.030Abnormal (applies to non-numeric results)1.005-1.025Urine Nitrite July 12, 2025 7:30amNEGATIVENEGATIVEEstimated GFR () June 21, 2025 7:15amJune 21, 2025 7:15am>60>=60 mL/min/1.73m 2Mean Corpuscular VolumeJune 21 2025 7:15amOct2024 7:15am80.8 fLBelow low .0-99.0Urine UrobilinogenOct2024 8:00amOct2024 8:00am0.2 EU/dL0.2-1.0Urine pHNovember 2024 7:30am7.05.0-9.0Estimated GFR (Non- AmericanOct2024 7:15amOct2024 7:15am>60 >=60 mL/min/1.73m 2Monocytes # (Auto)June 21, 2025 7:15amOct2024 7:15am0.6 10 3/uL0.3-0.8Urine ProteinNovember 2024 7:30amNEGATIVE mg/dL NEG/TRACEGlobulinOct2024 7:15amOct2024 7:15am4.0 g/dL Monocytes (%) (Auto)June 21, 2025 7:15amOct2024 7:15am6.5 % 1.7-12.0Urine RBCNovember 2024 7:66yb4-5 #/HPF0-2Glucose LevelOct2024 7:15amOct2024 7:09gl114 mg/dLAbove high tlelhk13-233Ncqt Platelet VolumeOct2024 7:15amOct2024 7:15am11.1 fL9.5-13.5 Urine Specific GravityNovember 2024 7:30am1.0201.005-1.025Potassium Level June 21, 2025 7:15amOct2024 7:15am4.2 mmol/L3.5-5.1Neutrophils # (Auto)June 21, 2025 7:15amOct2024 7:15am6.0 10 3/uL1.4-6.5Urine Squamous Epithelial CellsNovember 2024 7:30amMODERATE #/LPFAbnormal (applies to non-numeric results)NONE/RARESodium LevelOct2024 7:15am June 21, 2025 7:73vd341 mmol/I349-362Qayyjuaydtl (%) (Auto)June 21, 2025 7:15amOct2024 7:15am61.3 %43.0-75.0Urine UrobilinogenNovember 2024 7:30am0.2 EU/dL0.2-1.0Total BilirubinOct2024 7:15amOct2024 7:15am0.4 mg/dL0.2-1.0Platelet CountOct2024 7:15amOctober 2024 7:20ij341 10 3/qI662-230Ajzxz WBCNovember 2024 7:84xf5-5 #/HPF Abnormal (applies to non-numeric results)NONE SEENTotal ProteinOct2024 7:15amOct2024 7:15am7.7 g/dL6.4-8.2Red Blood CountOct2024 7:15amOct2024 7:15am4.99 10 6/uL4.20-5.40Red Cell Distribution WidthOct2024 7:15amOct2024 7:15am13.0 %11.0-15.0Corrected White Blood CountOct2024 7:15amOct2024 7:15am9.8 10 3/uL 4.0-11.0Corrected White Blood CountNov2024 8:05pmNov2024 8:29pm10.8 10*3/uL3.8-11.6F[facility] [id number] [address] [facility] [address]Rsiipkvyihw WBC CountNovember 2024 8:05pmNov2024 8:29pm10.8 10*3/uL3.8-11.6FGerman [facility] [id number] [address] [facility] [address]Bdz Blood CountNovember 2024 8:05pmNov2024 8:29pm4.93 10*6/uL3.60-5.00[facility] [id number] [address] [facility] [address]YlqzgbfzsuWabbdzym 2024 8:05pmNov2024 8:29pm 13.4 g/dL11.8-15.4F[facility] [id number] [address] [facility] [address]XjyruyfjljGqcqngkd 2024 8:05pmNov2024 8:29pm 39.4 %34.0-46.4F[facility] [id number] [address] [facility] [address]Fryg Corpuscular VolumeNovember 2024 8:05pmNovember 2024 8:29pm79.9 fLBelow low umjyrq18-593PtnzklhsgOhiohealth Hardin [facility] [id number] [address] [facility] [address]Tndq Corpuscular HemoglobinNovember 2024 8:05pmNovember 2024 8:29pm27.2 pg24.7-34.3FGerman [facility] [id number] [address] [facility] [address]Cgvg Corpuscular Hemoglobin ConcentNovember 2024 8:05pm November 2024 8:29pm34.1 g/dL32.0-35.0[facility] [id number] [address] [facility] [address]Gap Cell Distribution WidthNovember 2024 8:05pmNovember 2024 8:29pm13.9 %11.9-15.3F[facility] [id number] [address] [facility] [address]Eetgdbty CountNov2024 8:05pmNov2024 8:67kf142 10*3/fD939-318FqrkeyhqdOhiohealth Hardin Memorial [facility] [id number] [address] [facility] [address]Zprz Platelet VolumeNovember 2024 8:05pmNov2024 8:29pm8.8 fL6.3-10.7F[facility] [id number] [address] [facility] [address]Xluddhvf Distribution WidthNovember 2024 8:05pmNov2024 8:29pm19.87 %0.00-20.00[facility] [id number] [address] [facility] [address]Myxhwbhddcg (%) (Auto)July 02, 2025 8:05pmNov2024 8:29pm53.1 %.[facility] [id number] [address] [facility] [address]Lqskqnjzjco (%) (Auto)July 02, 2025 8:05pmNov2024 8:29pm38.8 %.[facility] [id number] [address] [facility] [address]Mouyoaybc (%) (Auto)July 02, 2025 8:05pmNov2024 8:29pm6.6 %.[facility] [id number] [address] [facility] [address]Ccrqbuetoph (%) (Auto)July 02, 2025 8:05pmNov2024 8:29pm1.2 %.[facility] [id number] [address] [facility] [address]Hdjpguuxb (%) (Auto)July 02, 2025 8:05pmNov2024 8:29pm0.3 %.[facility] [id number] [address] [facility] [address]Yvhadylyn RBC Relative Count (auto)July 02, 2025 8:05pm July 02, 2025 8:29pm0.1 /100{WBC}0-0.5F[facility] [id number] [address] [facility] [address]Kicumolgsjd # (Auto)July 02, 2025 8:05pmNov2024 8:29pm5.7 10*3/uL1.8-7.7F[facility] [id number] [address] [facility] [address]Qmhpcxgyfdr # (Auto)July 02, 2025 8:05pmNov2024 8:29pm4.2 10*3/uL1.00-4.8[facility] [id number] [address] [facility] [address]Fulajkzmj # (Auto)July 02, 2025 8:05pmJuly 02, 2025 8:29pm0.7 10*3/uL0.0-0.8[facility] [id number] [address] [facility] [address]Qzzcxpsyoah # (Auto)July 02, 2025 8:05pmNov2024 8:29pm0.1 10*3/uL0.0-0.45[facility] [id number] [address] [facility] [address]Fjyxyzefl # (Auto)July 02, 2025 8:05pmNov2024 8:29pm0.0 10*3/uL0.0-0.2F[facility] [id number] [address] [facility] [address]Wfwhr ColorNov2024 8:24pmNov2024 8:35pm YellowYellowOhiohealth Hardin Memorial Hospital Ctr [id number] [address] [facility] [address]Kdmmi AppearanceNov2024 8:24pmNov2024 8:35pmCloudyAbnormal (applies to non-numeric results)ClearOhiohealth Hardin Memorial Hospital [facility]tr [id number] [address] [facility] [address]Lkjzk Specific GravityJuly 02, 2025 8:24pmNov2024 8:35pm1.0241.001-1.030[facility] [id number] [address] [facility] [address]Fjiau pHNov2024 8:24pmNov2024 8:35pm6.5 5.0-9.0[facility] [id number] [address] [facility] [address]Gekvv Leukocyte EsteraseNov2024 8:24pmNov2024 8:35pm1+Above high normalNegativeOhiohealth Hardin Memorial [facility] [id number] [address] [facility] [address]Hwfif NitriteNov2024 8:24pmNov2024 8:35pm NegativeNegativeOhiohealth Hardin Memorial [facility] [id number] [address] [facility] [address]Eyabs ProteinNov2024 8:24pmNov2024 8:35pm Negative mg/dLNegativeOhiohealth Hardin Memorial [facility] [id number] [address] [facility] [address]Kkorq Glucose (UA)July 02, 2025 8:24pmNovember 2024 8:18et394 mg/dLAbove high normalNormMercy Health St. [facility] [id number] [address] [facility] [address]Tlrqn KetonesNovember 2024 8:24pmNovember 2024 8:35pm NegativeNegativeOhiohealth Hardin [facility] [id number] [address] [facility] [address]Tvlqz UrobilinogenNovember 2024 8:24pmNovember 2024 8:35pmNormal mg/dLNormalOhiohealth Hardin [facility] [id number] [address] [facility] [id number] BilirubinNovember 2024 8:24pmNovember 2024 8:35pmNegativeNegPomerene [facility] [id number] 1[address] [facility] [address]Rnsfm Occult BloodNov2024 8:24pmNovember 2024 8:35pm3+Above high normalNegPomerene Hospital Ctr [id number] 1[address] [facility] [id number] RBCNov2024 8:24pmNovember 2024 8:38pm Innumerable [HPF]Above high normal0-4FGerman [facility] [id number] [address] [facility] [id number] WBCNovember 2024 8:24pmNovember 2024 8:55gi2-0 [HPF]Above high normal0-4FGerman [facility] [id number] 1111 [facility] [address]Kaijn WBC ClumpsNovember 2024 8:24pmNovember 2024 8:38pmRare [LPF]Above high normalNone SeenOhiohealth [facility] [id number] 1[address] [facility] [address]Ifxhu Squamous Epithelial CellsNovember 2024 8:24pm July 02, 2025 8:44gh7-0 [HPF]Above high normal0-2FGerman [facility] [id number] 1111 [facility] 18[address]Vvbmn BacteriaNovember 2024 8:24pmNov2024 8:38pmNone seen [HPF]None SeenOhio[facility] [id number] 1[address] [facility] [address]Gdwco Hyaline CastsJuly 02, 2025 8:24pmNov2024 8:41no7-7 [LPF]0-8[facility] [id number] 1[address] [facility] [address]Sanpx MucusNov2024 8:24pmNov2024 8:38pm Rare [LPF][facility] [id number] 1[address] [facility] [address]Wonlw HCG, QualitativeJuly 02, 2025 8:24pmNov2024 8:38pmNegativeOhiohealth Hardin Memorial Hospital [facility] [id number] 1111 [facility] [address]27[address]Mrpixpc LevelNov2024 8:05pmJuly 02, 2025 8:48pm 127 mg/dLAbove high -104RUD recommended reference rangeRandom Glucose Reference Range is dependent on time and content of last meal. Glucose of more than 200 mg/dL in a nonstressed, ambulatory subject supports the diagnosisof Diabetes Mellitus.[facility] [id number] 1[address] [facility] [address]Eshfy Urea NitrogenJuly 02, 2025 8:05pmJuly 02, 2025 8:48pm17 mg/dL7-25[facility] [id number] 1[address] [facility] 840[address]MfozzbwrnjNhuzmouf 1st, 2025 8:05pmJuly 02, 2025 8:48pm 0.81 mg/dL0.60-1.20[facility] [id number] 1111 [facility] [address]Vadnfynlk GFR (CKD-EPI)July 02, 2025 8:05pmJuly 02, 2025 8:48pm> 60.0 mL/MinOhiohealth Hardin Memorial Hospital Ctr [id number] 1111 [facility] 39[address]Xtwzxm LevelJuly 02, 2025 8:05pmJuly 02, 2025 8:48pm 137 mmol/V424-232OnqjlfvkkOhiohealth Hardin Memorial Hospital [facility] [id number] 1111 [facility] [address]Orbqgmzbd LevelNovember 2024 8:05pmNovember 2024 8:48pm3.7 mmol/L3.5-5.1FGerman [facility] [id number] 1111 [facility] [address]Gpiegvyo LevelNovember 2024 8:05pmNov2024 8:10ou773 mmol/U58-680IzflrtlvhOhiohealth Hardin Memorial Hospital Ctr [id number] 1[address] [facility] [address]Opdbgc Dioxide LevelNovember 2024 8:05pmNovember 2024 8:48pm27.2 mmol/L21.0-31.0[facility] [id number] 1[address] [facility] 183[address]Ulrkz GapNov2024 8:05pmNovember 2024 8:48pm9.5 mEq/L6.0-15.0[facility] [id number] 1111 [facility] [address]Htrvhle LevelNov2024 8:05pmNovember 2024 8:48pm 9.3 mg/dL8.6-10.3FGerman [facility] [id number] 1111 [facility] [address]Pnxtq ProteinNovember 2024 8:05pmNovember 2024 8:48pm 7.5 g/dL6.4-8.9[facility] [id number] 1[address] [facility] 15885ZmpjhsyZhlmkdbm 2024 8:05pmNovember 2024 8:48pm4.3 g/dL3.5-5.7FGerman [facility] [id number] 1111 [facility] [address]PjrjlsudYvcikypd 2024 8:05pmNovember 2024 8:48pm3.2 g/dLOhiohealth Hardin Memorial [facility] [id number] 1[address] [facility] 644[address]Kuluqix/Globulin RatioNovember 2024 8:05pmNovember 2024 8:48pm1.3FGerman Hospital [facility] [id number] 1111 [facility] 78607Rfkih BilirubinNovember 2024 8:05pmNov2024 8:48pm0.4 mg/dL0.3-1.0[facility] [id number] 1[address] [facility] 670[address]Efwiuf BilirubinJuly 02, 2025 8:05pmJuly 02, 2025 8:48pm0.00 mg/dLBelow low normal0.03-0.18If the DBIL is less than 0.1, IBIL is not able to becalculated.[facility] [id number] 1[address] [facility] 80469Fwcgbjab BilirubinJuly 02, 2025 8:05pmJuly 02, 2025 8:48pm0.4 mg/dLOhiohealth Hardin Memorial Hospital [facility] [id number] 1[address] [facility] 19549Pwvxddqye Amino Transf (AST/SGOT)July 02, 2025 8:05pm July 02, 2025 8:48pm13 U/H76-33BmhvofegrOhiohealth Hardin Memorial Hospital Ctr [id number] 1111 [facility] 92094Zouejui Aminotransferase (ALT/SGPT)July 02, 2025 8:05pm July 02, 2025 8:48pm19 U/L7-52[facility] [id number] 1111 [facility] [address]6907Ssfotdkd PhosphataseJuly 02, 2025 8:05pmJuly 02, 2025 8:48pm67 U/H12-017DcyhhaexbOhiohealth Hardin Memorial Hospital Ctr [id number] 1111 [facility] 17598VllafqCsivivsb 1st, 2025 8:05pmJuly 02, 2025 8:48pm37.0 U/L11.0-82.0[facility] [id number] 1111 [facility] 93726Vrdsok Acid LevelNov2024 8:05pmNov2024 8:36pm0.9 mmol/L0.5-1.9Lactic Acid reference range has been updated to 0.5 ??? 1.9 mmol/L and the critical range of 2.0 orgreater.[facility] [id number] [address] [place] 9909170Pharmacy Creatinine Clearance (ChemNov2024 8:05pm July 02, 2025 8:31ow380.05[facility] [id number] [address] [place] [address]Zugyhsk GlucoseOctober 2024 11:59amOctober 2024 12:13lu913 mg/dLRandom Glucose Reference Range is dependent on time and content of last meal. Glucose of more than 200 mg/dL in a nonstressed, ambulatory subject supports the diagnosis of Diabetes Mellitus.Point of Care testing Microbiology Results Procedure Source Result Collection Date/Time Result Date/Time Result Comment Performing Site Urine Culture Urine, Clean-Voided Midstream bacilli - 2 Days July 02, 2025 9:24pm July 04, 2025 9:04am [facility] [id number] [address] [place] [address] Diagnostic Imaging Reports Author Felipe Lara [facility] HospitalAuthoredNovbanner desert medical center 2024 7:31amReportDictated Date/TimeDictated ByStatusRadiology ReportAtrium Health [facility] Center2024 7:31amFelipe Lara [facility] [place] [id number] CT Scan Report Signed Patient: Johnson Vera MR#: [id number] : 1990 Acct:[id number] Age/Sex: 35 / F ADM Date: 5 Loc: ER Room: Type: [facility] ER Attending Dr: Copies to: Juan Alberto Shultz DO~ Ordering Provider: Juan Alberto Shultz DO Date [...] following dose reduction techniques: Automated exposure control, ad justment of the mA and/or kV according to [...] Lara M.D. 07/03/2025 7:36 AM Dictation Location: [facility]-- Transcribed By: [facility] 07/03/25735 Dictated By: Felipe Lara MD 07/03/25730 Signed By: <Electronically signed by Felipe Lara MD in OV> 07/03/25735 Vital Signs Vital Reading Result Reference Range Collection Date/Time Height 63 [in_i] June 08, 2025 12:59vfKorlse143.98 kgJunlourdes hospital 2024 12:22pmBody Ndqqiyydzjj70.5 [degF]97.6-99.0[facility] 2024 12:22pmHeart Rate66 /xdb21-406 June 08, 2025 12:22pmRespiratory rate18 /isw68-01Abzoarg2024 12:22pm Oxygen saturation by Pulse yyfhvmqa01 %95-100[facility]2024 12:22pmBP Oglljrfo254 mm[Hg]100-140June 08, 2025 12:22pmBP Xviibwcan93 mm[Hg]60-100 June 08, 2025 12:22pmBMI (Body Mass Index)40.6 kg/h2MscqxplJune 08, 2025 12:23qdZlmbkd67 [in_i]June 21, 2025 10:32rrZekpqt604.60 kgJune 21, 2025 10:33amBody Xzbpmeiznfl62.4 [degF]97.6-99.0[facility] 2024 2:26pmHeart Rate64 /ddu42-838Tutzhte 2024 3:15pmRespiratory rate16 /qrj17-75MxzszsfJune 21, 2025 3:15pmOxygen saturation by Pulse nerhxhfc94 %95-100October 2024 3:15pmBP Hjorzqcs389 mm[Hg]100-140October 2024 3:15pmBP Apjzbzjpf34 mm[Hg]60-100October 2024 3:15pmInhaled oxygen flow rate8 L/minOctober 2024 2:71gcWsmapz34 [in_i]July 02, 2025 7:02sePxkukn665.00 kgNov2024 7:01pmBody Cdmnbizmyrt35.3 [degF]97.6-99.0July 02, 2025 7:01pm Heart Rate71 /qiq26-897RverotslJuly 03, 2025 1:00amRespiratory rate20 /zfc26-02 July 03, 2025 1:00amOxygen saturation by Pulse ongfcjal95 %95-100Nov2024 1:00amBP Irqjcpvs086 mm[Hg]100-140July 03, 2025 1:00amBP Zqllzwizx03 mm[Hg]60-100Nov2024 1:11utHmvogb70 [in_i]July 13, 2025 2:06rsGivkqw179.41 kgNov2024 2:53pmBody Fekraeicrjg81.5 [degF] 97.6-99.0July 13, 2025 2:53pmHeart Rate72 /rhd74-570AudtufwsJuly 13, 2025 2:53pmRespiratory rate18 /ikm41-07VittdndtJuly 13, 2025 2:53pmOxygen saturation by Pulse xambnndj36 %95-100Nov2024 2:53pmBP Xoairlem940 mm[Hg]100-140 July 13, 2025 2:53pmBP Ikilsfvgo83 mm[Hg]60-100Nov2024 2:53pm BMI (Body Mass Index)41.7 kg/f2MoqqxfshJuly 13, 2025 2:53pm Advance Directives Advance Directive Response Recorded Date/ Time Advance Directives No May 4:12pm Insurance Providers Guarantor Johnson Vera Address [address] [place] [id number] Info.Home Phone: Coverage Status Update:2025 Payer Group Member ID Coverage Type Subscriber Relationship to Subscriber Effective Date Expiration Date [place] [employer] Id: [id number] L Mullins Id: [id number] [address] [place] [id number] Home Phone: Email: declined 20elf Encounters Encounter Location(s) Arrival/Admit Date Discharge/Departure Date Discharge/Departure Disposition Provider(s) Departed Physician/ Provider Office Visit -[facility] [place] June 08, 2025 1:15pm June 08, 2025 2:05pm Discharged to home care or self care (routine discharge) SNOW Aponte Non-patient / Non-visit -[facility] O ctober 2024 8:15am Ariane Wells NP-CDischarged Inpatient-4 [place] ProgressiveOctober 2024 11:29amOctober 2024 4:30pmDischarged to home care or self care (routine discharge)ADRIANO Rocheeparted Emergency-Emergency RoomNov2024 7:54pmNov2024 1:02amDischarged to home care or self care (routine discharge)Non-patient / Dfj[facility]cfcxd[facility] [facility] 20[facility] 7:30amJEREL Aponteeparted Physician/Provider Office Visit- [facility] Family Medicine [facility] 2024 2:34pmNov2024 3:32pm Discharged to home care or self care (routine discharge)SNOW Aponte Recent Diagnosis Onset Date Admit Date ASHA (generalized anxiety disorder) Unknown June 08, 2025 1:15pm Nicotine dependence Unknown June 08, 2025 1:15pm Uncontrolled type 2 diabetes mellitus, without long-term current use of insulin Unknown June 08, 2025 1:1 5pm Vitamin D deficiency Unknown June 1:15pm Incarcerated umbilical hernia Unknown Oc tob2024 11:29am ASHA (generalized anxiety disorder) Unknown July 13, 2025 2:34pm History of umbilical hernia repair Unknown July 13, 2025 2:34pm Nicotine dependence Unknown July 2:34pm Uncontrolled type 2 diabetes mellitus, without long-term current use of insulin Unknown July 13, 2025 2 :34pm Vaginal yeast infection Unknown July 13, 2025 2:34pm Functional Status Observation Response Date Recorded Dressing Patient at Baseline June 10:33am Eating Patient at Baseline June 10:33am Bathing Patient at Baseline June 10:33am Disability Status Patient at Baseline June 212024 10:33am Mental Status Observation Response Date Recorded Cognitive Status Patient at Baseline June 10:33am Cognitive/Mental Status Assessments Assessments Diagnosis Onset Date Resolution Status Admit Date ASHA (generalized anxiety disorder) acuteOctober 2024 1:15pmNicotine dependenceacuteOctober 2024 1:15pm Uncontrolled type 2 diabetes mellitus, without long-term current use of insulin acuteOctober 2024 1:15pmVitamin D deficiencyacuteOctober 2024 1:15pm Incarcerated umbilical herniaresolvedOctober 2024 11:29amGAD (generalized anxiety disorder)acuteNovember 2024 2:34pmHistory of umbilical hernia repairacuteNov2024 2:34pmNicotine dependenceacuteNov2024 2:34pmUncontrolled type 2 diabetes mellitus, without long-term current use of insulinacuteNov2024 2:34pmVaginal yeast infectionacuteNov2024 2:34pm Plan of Treatment Author Ariane Wells [facility] HospitalAuthoredOctober 2024 1:16pmhaving some panic attacks, will restart buspar at this time The patient has been advised of the risks of continued smoking: stroke, SD, all forms of cancer, lung disease, and [...] 2 weeks then increase to BID add tysonunrafi, sample 2.5mg given, lot [id number] exp 04/26/26 then send in rx for 5mg fu in 4 weeks does not want insulin Author Ariane Wells [facility] HospitalAuthoredNovember 2024 3:23pmCheck blood sugars daily, notify the office if [...] in carbohydrates, and simple sugars. current meds: metromin xr, trulicity (insurance denied mounjaro) a1c: 11.6% 06/08/25 numbers seem to be better current meds: buspar, never was sent in, will send in today The patient has been advised of the risks of continued smoking: stroke, SD, all forms of cancer, lung disease, and . Options for quitting: cold turkey, hypnosis, acupuncture, nicotine replacement meds (gum, lozenges, and patches), as well as oral meds: buproprion or varenicline . At this time pt is encouraged to evaluate their goals for wanting to quit smoking, and reach out to provider when ready to start this process continue fu with general surgeon lee q 3 days for 3 doses advised of interaction with pain meds Future Tests Future scheduled test information is unavailable Pending Tests Pending diagnostic test information is unavailable Future Visits Future appointment information is unavailable Future Procedures Procedure Name Ordered Date Scheduled Date Discharge Order June 21, 2025 2:03pm Octobe r 2024 2:03pm Dipstick and Microscopic June 08, 2025 5:28a m Lipid PanelM[facility]in[facility] 2024 5:28amMagnesiumOctlourdes hospital 2024 5:28amAMB POC Ur Microalb/Creat RatMackinac Straits Hospital 2024 5:28am Future Medications Future medication information is unavailable Patient Instructions Instruction Admit Date Know your Meds June 21, 2025 1 1:29am Managing pain after surgery Urinary tract infection in adults - ED discharge instructionsNov2024 7:54pm Goals Acute Goals Author Authored Date Exhibit optimal tissue perfu eric * Exhibits adequate oxygenation and ventilation * Exhibits adequate cardiac output * Regains stable cardiac rhythm * Maintains optimal activity level * Maintains balanced intake and outputK[facility] 2024 3:52pmExperience reduced anxiety * Identifies current stressors * Develops effective coping behaviors * Uses support services as appropriateK[facility] 2024 3:52pmRemain free of complications [facility] 2024 3:52pmUnderstand preop/postop care/sensations * Verbalizes understanding of surgical procedure * Verbalizes understanding of sensations following surgery * Verbalizes understanding of post-op treatment planKettering Health – [facility] Center 2024 2:56pmReport pain at tolerable level * Uses pain scale appropriately * Identify options for pain control - Analgesics - Narcotics - Non-medication measuresKettering Health – Soin Medical Center 2024 3:52pmAbsence of imbalanced fluid volume s/s [facility] 2024 3:52pmAbsence of physical injury [facility] 2024 3:52pmAbsence of surgical site infection [facility] 2024 3:52pm
--- OUTSIDE RECORDS SUMMARY | 2025-07-18 16:00 | XMS_ITS | Encounter Summary ---
Author Organization [facility] Address [address] [place] [address] Care Team Providers Care Technology Resource Teacher Name Role Phone Channing Freire MD Unavailable [phone] Ariane Wells NP Unavailable Unallocated, Noms Provider Primary Care Provi suman Reason for Visit * CdjnhmCkahezfr7hf pow Umb.hernia, wound check Encounter Details DateTypeDepartmentCare Team (Latest Contact Info)Mkxflohpntc52/17/2025 4:00 PM ESTOffice Visit [facility] [address] [facility] [address] [place] [address] Abdulkadir Dominique, 7[address] [facility] [address] [place] [address] Umbilical hernia with obstruction, without gangrene (Primary Dx) Social History Tobacco UseTypesPacks/DayYears UsedDateSmoking Tobacco: Every DaySmokeless Tobacco: NeverAlcohol UseStandard Drinks/WeekCommentsNot Currently0 (1 standard drink = 0.6 oz pure alcohol)caffine: coffee: 20oz and soda: 1.5L bottle daily PHQ-2AnswerDate RecordedPatient Health Questionnaire-2 [id number] CommentsUnknownSex and Gender InformationValueDate RecordedSex Assigned at Not on fileLegal SnpTlpiag66/15/2023 9:50 PM EDTGender IdentityNot on fileSexual OrientationNot on filedocumented as of this encounter Last Filed Vital Signs Vital SignReadingTime TakenCommentsBlood Pressure--Pulse--Temperature-- Respiratory Rate--Oxygen Saturation--Inhaled Oxygen Concentration--Pjlham501 kg (225 lb)07/18/2025 3:54 PM HIGZhkclf566.8 cm (5' 2.5 )07/18/2025 3:54 PM ESTBody Mass Index40. 3:54 PM ESTdocumented in this encounter Progress Notes * Abdulkadir Dominique DO - 07/18/2025 4:00 PM EST Images from the original note were not included. Johnson Vera is a 35 y.o. female presents for 3rd pow Umb.hernia, wound check HPI: HPI Johnson presents for recheck of the umbilical hernia repair wound. She is doing well OBJECTIVE: Physical Exam Abdominal: Comments: She has superficial skin necrosis from the 12-4:00 area, ASSESSMENT AND PLAN: Assessment/Plan Diagnoses and all orders for this visit: Umbilical hernia with obstruction, without gangrene I debrided some of the necrotic skin from the umbilical depression. I'll see her next week for recheck and continued debridement of the area. documented in this encounter Plan of Treatment DateTypeDepartmentCare Team (Latest Contact Info)Nswcbdahygq59/24/2025 4:00 PM ESTOffice Visit [facility] [address] [address] Abdulkadir Dominique DO [address] [facility] [address] [place] [address] documented as of this encounter Visit Diagnoses Diagnosis Umbilical hernia with obstruction, without gangrene- Primary Umbilical hernia with obstruction documented in this encounter Additional Health Concerns AssessmentNoted TimePHQ-9 Depression Total Score: 804 1:28 PM EDT documented as of this encounter Care Teams Team MemberRelationshipSpecialtyStart DateEnd Date Channing Freire MD [address] [facility] [address] [place] [address] (Fax) PCP - DELANEY Still [facility]12/01/23 Unallocated, Noms MD Allan [address] [place] [address] PCP - GeneralFamily Nckkcodj78/4/25 Ariane Wells NP [address] [place] [address] Nurse PractitionerFamily Fjnzndbj22/27/25documented as of this encounter
[2025-07-22 07:42] VITALS: BP 115/67; PULSE 79; TEMP 36.6; O2SAT 97; BMI 39.9
--- OUTSIDE RECORDS SUMMARY | 2025-07-22 07:47 | XMS_ITS | Encounter Summary ---
Author Organization [facility] Address [address] [place] [address] Care Team Providers Care Salicylic Acid Blender Name Role Phone Channing Freire MD Unavailable [phone] Ariane Wells NP Unavailable [phone] Unallocated, Noms Provider Primary Care Provi suman Encounter Details DateTypeDepartmentCare Team (Latest Contact Info)Xmnyckgshce70/12/2025Travel Social History Tobacco UseTypesPacks/DayYears UsedDateSmoking Tobacco: Every DaySmokeless Tobacco: NeverAlcohol UseStandard Drinks/WeekCommentsNot Currently0 (1 standard drink = 0.6 oz pure alcohol)caffine: coffee: 20oz and soda: 1.5L bottle daily PHQ-2AnswerDate RecordedPatient Health Questionnaire-2 [id number] CommentsUnknownSex and Gender InformationValueDate RecordedSex Assigned at Not on fileLegal PbqUbbrge44/15/2023 9:50 PM EDTGender IdentityNot on fileSexual OrientationNot on filedocumented as of this encounter Plan of Treatment DateTypeDepartmentCare Team (Latest Contact Info)Lmtbteluyai29/24/2025 4:00 PM ESTOffice Visit [facility] [address] [address] Abdulkadir Dominique, [address] [address] documented as of this encounter Visit Diagnoses Not on filedocumented in this encounter Additional Health Concerns AssessmentNoted TimePHQ-9 Depression Total Score: 8012/25/2023 1:28 PM EDT documented as of this encounter Care Teams Team MemberRelationshipSpecialtyStart DateEnd Date Channing Freire MD [address] [place] [address] PCP - DELANEY Still [facility]12/01/23 Unallocated, Noms MD Allan [address] [place] [address] PCP - GeneralFamily Lxijgusz50/4/25 Ariane Wells NP [address] [place] [address] Nurse PractitionerFamily Ivybcnnq17/27/25documented as of this encounter
--- OUTSIDE RECORDS SUMMARY | 2025-07-22 07:47 | XMS_ITS | Patient Health Record ---
Author Organization [facility] es Address [address] [place] [address] Care Team Providers Care Bisque Ware Dipper Name Role Phone Dr. Raymond Macario Primary Care Provider [phone] Reason For Referral No Information Medications Medication [...] Date z[employer]-termed 10/01/22 [address] [place] [address] [id number] Bolivar OSBORNE - patient is the sdtmlyr1809/01/2021zMEDICAID CFC after [employer]-termed 10/01/22[address] [place] [phone] [id number] PRETTY - patient is the nmjmqqu7209/01/2021zDENTAL DQ [employer]-termed 10/01/22[address] [place] [id number], JAMIESelf - patient is the vvkvgaw5909/01/2021 zDental MEDICAID CFC after [employer]-termed 10/01/22[address] [place] [id number], JAMIESelf - patient is the hawhvqa56/01/2022Dental [place] DQ Terminated 08/31/24[address] [place] [id number], JAMIESelf - patient is the ntwyrgu57/01/2023Dental Wrap [facility] [place] BCBS Termed [address] [place] [phone], JAMIESelf - patient is the axpgphe5210/02/2022
--- OUTSIDE RECORDS SUMMARY | 2025-07-22 07:47 | XMS_ITS | Encounter Summary ---
Author Organization [facility] Address [address] [place] [address] Care Team Providers Care Chemistry Physics Teacher Name Role Phone Channing Freire MD Unavailable [phone] Ariane Wells NP Unavailable [phone] Unallocated, Noms Provider Primary Care Provi suman Encounter Details DateTypeDepartmentCare Team (Latest Contact Info)Yvcbuooscut29/18/2025Travel Social History Tobacco UseTypesPacks/DayYears UsedDateSmoking Tobacco: Every DaySmokeless Tobacco: NeverAlcohol UseStandard Drinks/WeekCommentsNot Currently0 (1 standard drink = 0.6 oz pure alcohol)caffine: coffee: 20oz and soda: 1.5L bottle daily PHQ-2AnswerDate RecordedPatient Health Questionnaire-2 [id number] CommentsUnknownSex and Gender InformationValueDate RecordedSex Assigned at Not on fileLegal WfiSazbrs85/15/2023 9:50 PM EDTGender IdentityNot on fileSexual OrientationNot on filedocumented as of this encounter Plan of Treatment DateTypeDepartmentCare Team (Latest Contact Info)Gmaarrlynbf02/24/2025 4:00 PM ESTOffice Visit [facility] [address] [address] Abdulkadir Dominique, [address] [address] documented as of this encounter Visit Diagnoses Not on filedocumented in this encounter Additional Health Concerns AssessmentNoted TimePHQ-9 Depression Total Score: 8012/25/2023 1:28 PM EDT documented as of this encounter Care Teams Team MemberRelationshipSpecialtyStart DateEnd Date Channing Freire MD [address] [place] [address] PCP - DELANEY Still [facility]12/01/23 Unallocated, Noms MD Allan [address] [place] [address] PCP - GeneralFamily Jsyywcal86/4/25 Ariane Wells NP [address] [place] [address] Nurse PractitionerFamily Mjbvlout36/27/25documented as of this encounter
--- OUTSIDE RECORDS SUMMARY | 2025-07-22 07:47 | XMS_ITS | Encounter Summary ---
Author Organization [facility] Address [address] [place] [address] Care Team Providers Care Compensation Intern Name Role Phone Channing Freire MD Unavailable [phone] Ariane Wells NP Unavailable [phone] Unallocated, [facility] Provider Primary Care Provi suman Encounter Details DateTypeDepartmentCare Team (Latest Contact Info)Gwzwlfeculd15/10/2025Travel Social History Tobacco UseTypesPacks/DayYears UsedDateSmoking Tobacco: Every DaySmokeless Tobacco: NeverAlcohol UseStandard Drinks/WeekCommentsNot Currently0 (1 standard drink = 0.6 oz pure alcohol)caffine: coffee: 20oz and soda: 1.5L bottle daily PHQ-2AnswerDate RecordedPatient Health Questionnaire-2 [id number] CommentsUnknownSex and Gender InformationValueDate RecordedSex Assigned at Not on fileLegal TniSpmrdc58/15/2023 9:50 PM EDTGender IdentityNot on fileSexual OrientationNot on filedocumented as of this encounter Plan of Treatment DateTypeDepartmentCare Team (Latest Contact Info)Ywzqvurqfwt57/24/2025 4:00 PM ESTOffice Visit [facility] [address] [address] Abdulkadir Dominique, [address] [address] documented as of this encounter Visit Diagnoses Not on filedocumented in this encounter Additional Health Concerns AssessmentNoted TimePHQ-9 Depression Total Score: 8012/25/2023 1:28 PM EDT documented as of this encounter Care Teams Team MemberRelationshipSpecialtyStart DateEnd Date Channing Freire MD [address] [place] [address] PCP - DELANEY Still [facility]12/01/23 Unallocated, Noms MD Allan [address] [place] [address] PCP - GeneralFamily Ulnirqya71/4/25 Ariane Wells NP [address] [place] [address] Nurse PractitionerFamily Wconanii11/27/25documented as of this encounter
--- OUTSIDE RECORDS SUMMARY | 2025-07-22 07:47 | XMS_ITS | Clinical Summary ---
Author Organization [facility] Address [address] [place] [address] Care Team Providers Care Band Splicer Name Role Phone Channing Freire MD Unavailable Ariane Wells NP Unavailable [phone] Unallocated, [facility]oms Provider MD Primary Care Provi suman Allergies Active AllergyReactionsCriticalityNoted NvqmRiolugayOctfj20/17/2025 Certain latex products SuxicevzlbSrrr03/25/2024 Medications MedicationSigDispense QuantityRefillsLast FilledStart DateEnd DateStatus traZODone (Desyrel) 50 MG tablet Take 100 mg by mouth at bedtimeActive spironolactone (Aldactone) 50 MG tablet Take 50 mg by mouth DailyActive pravastatin (Pravachol) 20 MG tablet Take 20 mg by mouth in the mqcwfhe3801/28/2023ctive metFORMIN XR (Glucophage-XR) 500 MG 24 hr tablet Take 1,000 mg by mouth in the morning and 1,000 mg before bedtime.Active pantoprazole (ProtoNix) 40 MG EC tablet Take 40 mg by mouth Daily as needed (GERD)Active magnesium 250 MG tablet 1 (one) time each day at the same timeActive HumuLIN R U-500 KWIKPEN 500 UNIT/ML CONCENTRATED injection 11/01/2023ctive insulin lispro (HumaLOG KWIKPEN) 100 UNIT/ML injection Active OneTouch Ultra test strip 01/28/2023ctive FLUoxetine (PROzac) 40 MG capsule Take 40 mg by mouth DailyActive FLUoxetine (PROzac) 20 MG capsule Take 20 mg by mouth Daily10/03/2023Active Jardiance 25 MG Take 25 mg by mouth DailyActive Continuous Glucose Sensor (FreeStyle Ksenia 2 Sensor) [facility] 04/03/2023ctive ARIPiprazole (Abilify) 15 MG tablet Take 15 [...] 8 hours5Active Active Problems ProblemNoted DateDiagnosed DateYeast eybnuuevh96/23/2024Vaginal discharge 06/16/2024 Overview (06/16/2024): Letha [id number] EXP 08/31/24 Lot #[id number] Assessment & Plan (06/16/2024 5:57 PM EDT): Health trax vaginitis exam Encounter for well woman exam with routine gynecological exam06/16/2024 Assessment & Plan (06/16/2024 5:57 PM EDT): Thin prep Fu as per PAP indications Generalized anxiety disorder with panic vrxsbrb9406/16/2024 Assessment & Plan (06/16/2024 6:00 PM EDT): Worsening anxiety while in the car Will try increasing buspar 10mg TID Fu in 6 weeks Candidiasis of cflqke7905/26/2024Type 2 diabetes mellitus without complication, with long-term current use of sypwbdz4003/16/2024 Assessment & Plan (03/16/2024 1:22 PM EDT): [...] refill of test strips as well Granuloma veiyouba30/16/2024 Assessment & Plan (03/16/2024 1:22 PM EDT): No help with steroid cream Will refer to derm Acquired deformity of right ankle12/25/2023ADHD12/25/2023ipolar disorder 12/25/20230929Shkvonrztu96/25/2024MI 45.0-49.9, adult12/25/2023lass 3 severe obesity due to excess calories with body mass index (BMI) of 40.0 to 44.9 in adult12/25/2023onductive hearing loss, dmqzinncw14/25/2024urrent tobacco use 12/25/2023DD (degenerative disc disease), nqpmkq2412/25/2023ysfunction of both eustachian tubes12/25/2023Female lhltbmhokco02/25/7585Fgcalqfl56/25/2024OSA (obstructive sleep apnea)12/25/2023Osteochondral defect of talus12/25/2023COS (polycystic ovarian syndrome)12/25/2023Umbilical xbfthb1912/25/2023Vitamin D zhibvddrof05/25/2024Muscle spasm12/25/2023 Assessment & Plan (01/15/2024 3:11 PM EDT): Refaxed to [facility] Pain Mgmt Assessment & Plan (12/25/2023 2:24 PM EDT): Try muscle relaxer, will refer to pain mgmt [facility] Fu in 3 weeks Resolved Problems ProblemNoted DateDiagnosed DateResolved DateForeign body granuloma of soft tissue, not elsewhere classified, unspecified ankle and foot/ Jzxszich32/ Assessment & Plan (01/15/2024 3:10 PM EDT): Reviewed A1c level, needs to get an appt with Marija Assessment & Plan (12/25/2023 2:25 PM EDT): Has not been to see Endo for several months Encounters DateTypeDepartmentCare DilqBihjluendjn12/18/0420Lijves59/17/2025 4:00 PM EST Office Visit [facility] [address] [address] Abdulkadir Dominique, DO Umbilical hernia with obstruction, without gangrene (Primary Dx)07/18/2025Travel 07/13/20254020Wvlfks01/10/2025 4:00 PM ESTOffice Visit [facility] [address] [place] [address] [address] [place] [phone] Abdulkadir Dominique, DO Umbilical hernia with obstruction, without gangrene (Primary Dx)07/11/2025Travel 07/04/2025 1:45 PM ESTOffice Visit [facility] [address] [place] [address] [address] [place] [phone] Abdulkadir Dominique, DO Umbilical hernia with obstruction, without gangrene (Primary Dx)07/04/2025Travel 06/27/2025 1:30 PM EDTOffice Visit [facility] [address] [place] [address] [place] [phone] Abdulkadir Dominique, DO Umbilical hernia with obstruction, without gangrene (Primary Dx)06/27/2025 Telephone [facility] [address] [place] [phone] Abdulkadir Dominique, DO 06/27/20259659Zricwd87/24/2025Orders Only [facility] [address] [place] [address] [address] [place] [address] Abdulkadir Dominique, 06/21/20250551Kwwbyp88/21/2025External Result Encounter [facility] External Department Unsolicited Abdulkadir Dominique, DO from Last 3 Months Immunizations ImmunizationAdministration DatesNext DueModerna SARS-CoV-2 Movuryuibuh95/20/2021 Family History Medical HistoryRelationNameCommentsDiabetesFatherBreast cancerMaternal KfjawfscwrsObqrfkxxrifaIchuctJllliqfxDfnoFwxupuKngnbrxeAzfpqgq0YfxpwQynlwu PfrwvbefNcii-Duqmknv6BhpmpGxsf-Mtyopc6IrnifKhokkold GrandmotherMotherAliveSon1 Alive Social History Tobacco UseTypesPacks/DayYears UsedDateSmoking Tobacco: Every DaySmokeless Tobacco: Never Tobacco Cessation:Ready to Q uit: Not Asked; Counseling Given: Not Answered Alcohol UseStandard Drinks/WeekCommentsNot Currently0 (1 standard drink = 0.6 oz pure alcohol)caffine: coffee: 20oz and soda: 1.5L bottle dailyPHQ-2AnswerDate RecordedPatient Health Questionnaire-2 Vxxfb2894CommentsUnknown Sex and Gender InformationValueDate RecordedSex Assigned at BirthNot on file Legal HgrPdghrw59/15/2023 9:50 PM EDTGender IdentityNot on fileSexual OrientationNot on file Last Filed Vital Signs Vital SignReadingTime TakenCommentsBlood Jopsgcww029/801 5:05 PM EDT Zkavh491506/16/2024 5:05 PM HYVSzkmrnukxto97.1 ??C (98.8 ??F)06/16/2024 5:05 PM EDTRespiratory Rtnw7971 5:05 PM EDTOxygen Neiilhpmxr34%06/16/2024 5:05 PM EDTInhaled Oxygen Concentration--Nbhnhk814 kg (225 lb)07/18/2025 3:54 PM EST Pbqkys522.8 cm (5' 2.5 )07/18/2025 3:54 PM ESTBody Mass Index40. 3:54 PM EST Plan of Treatment DateTypeDepartmentCare Team (Latest Contact Info)Flgvidqpgri79/24/2025 4:00 PM ESTOffice Visit [facility] [address] [facility] [address] [place] [address] Abdulkadir Dominique, [address] [facility] [address] [place] [address] Health MaintenanceDue DateLast DoneCommentsDiabetes: Retinopathy Screening 1998Pneumococcal Vaccine: Pediatrics (0 to 5 Years) and At-Risk Patients (6 to 64 Years) (1 of 2 - PCV)2007HPV/Jpbqwg1706/07/2018Diabetes: Hemoglobin A1C4Diabetes: Urine Protein Ppdbdfavj22/04/2024 COVID-19 Vaccine ( season)/, 08/01/2021, 07/11/2021ervical Cancer Voyrououy49/16/2027Pap Smear/, 06/20/2020Influenza VaccineDiscontinued Procedures Procedure NamePriorityDate/TimeAssociated DiagnosisCommentsGLUCOSE POCT KVFWNTGDVFQRgeaabh29/21/2025 12:59 PM EDT GENERAL JOPKCCDJVMcblhvz26/21/2025 9:49 AM EDTfrom Last 3 Months Results * GLUCOSE POCT GLUCOMETERS (06/21/2025 12:59 PM EDT)ComponentValueRef RangeTest MethodAnalysis TimePerformed AtPathologist SignatureGLUCOSE POC NVZVTURHJPS713 mg/dL06/21/2025 1:12 PM EDTFIRELANDSComment: Random Glucose Reference Range is dependent on time and content of last meal. Glucose of more than 200 mg/dL in a nonstressed, ambulatory subject supports the diagnosis of Diabetes Mellitus. Specimen (Source)Anatomical Location / LateralityCollection Method / Volume Collection TimeReceived TimeBlood (Blood)06/21/2025 12:59 PM EDT1 1:11 PM EDT Narrative Authorizing ProviderResult TypeResult StatusFredric Brenda Dominique DOLAB BLOOD ORDERABLESFinal ResultPerforming OrganizationAddressCity/State/ZIP CodePhone Number [facility] [address] [place] [address], * GENERAL PATHOLOGY (06/21/2025 9:49 AM EDT) Narrative Authorizing ProviderResult TypeResult StatusFredric Brenda Dominique DOCLINISYNCFinal Result from Last 3 Months Insurance Care Teams Team MemberRelationshipSpecialtyStart DateEnd Date Channing Freire MD [address] [facility] [address] [place] [address] PCP - [facility]12/01/23 Unallocated, Noms MD Allan [address] [place] [address] PCP - GeneralFamily Jjnezacj95/4/25 Ariane Wells NP [address] [place] [address] Nurse PractitionerFamily Ksrnqhkc50/27/25
--- OUTSIDE RECORDS SUMMARY | 2025-07-22 07:47 | XMS_ITS | Encounter Summary ---
Author Organization [facility] Address [address] [place] [address] Care Team Providers Care Sound Assistant Name Role Phone Channing Freire MD Unavailable [phone] Ariane Wells NP Unavailable [phone] Unallocated, [facility] Provider Primary Care Provi suman Encounter Details DateTypeDepartmentCare Team (Latest Contact Info)Zaroldvljas53/17/2025Travel Social History Tobacco UseTypesPacks/DayYears UsedDateSmoking Tobacco: Every DaySmokeless Tobacco: NeverAlcohol UseStandard Drinks/WeekCommentsNot Currently0 (1 standard drink = 0.6 oz pure alcohol)caffine: coffee: 20oz and soda: 1.5L bottle daily PHQ-2AnswerDate RecordedPatient Health Questionnaire-2 Azksg5964 CommentsUnknownSex and Gender InformationValueDate RecordedSex Assigned at Not on fileLegal SqjBiaijr75/15/2023 9:50 PM EDTGender IdentityNot on fileSexual OrientationNot on filedocumented as of this encounter Plan of Treatment DateTypeDepartmentCare Team (Latest Contact Info)Rgngyzqsmdf09/24/2025 4:00 PM ESTOffice Visit [facility] [address] [address] Abdulkadir Dominique, [address] [address] documented as of this encounter Visit Diagnoses Not on filedocumented in this encounter Additional Health Concerns AssessmentNoted TimePHQ-9 Depression Total Score: 8012/25/2023 1:28 PM EDT documented as of this encounter Care Teams Team MemberRelationshipSpecialtyStart DateEnd Date Channing Freire MD [address] [place] [address] PCP - DELANEY Still [facility]12/01/23 Unallocated, Noms MD Allan [address] [place] [address] PCP - GeneralFamily Hyomcrwk49/4/25 Ariane Wells NP [address] [place] [address] Nurse PractitionerFamily Pgrphshq69/27/25documented as of this encounter
--- OUTSIDE RECORDS SUMMARY | 2025-07-22 07:48 | XMS_ITS | CCD ---
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 Name Role Phone AICHHOLZ, COURT MAGISTRATE ARIANE Attending Unavailable AICHHOLZ, COURT MAGISTRATE ARIANE Admitting Unavailable AICHHOLZ, COURT MAGISTRATE ARIANE Primary Care Unavailable JOSE EDUARDO RIVERS V Consulting Unavailable AICHHOLZ, COURT MAGISTRATE ARIANE Consulting Unavailable TIMMIS, DR MEJIA Consulting Unavailable AICHHOLZ, COURT MAGISTRATE ARIANE Primary Care Unavailable TIMMIS, DR MEJIA Attending Unavailable TIMMIS, DR MEJIA Admitting Unavailable BRIGGS, MAGDI Consulting Unavailable PAY ., DR SWANSON Admitting Unavailable PAY ., DR SWANSON Consulting Unavailable AICHHOLZ, COURT MAGISTRATE ARIANE Primary Care Unavailable PAY ., DR SWANSON Attending Unavailable AICHHOLZ, COURT MAGISTRATE ARIANE Primary Care Unavailable REINECK, DR KLAUDIA Kay Attending Unavailwilli MADRIGAL, DR KLAUDIA Kay Admitting Unavailabl e KAILTIN, DR KLAUDIA Kay Consulting Unavailabl e JEYSON BLANTON Consulting Unavailable AICHHOLZ, COURT MAGISTRATE ARIANE Primary Care Unavailable GABINO MUÑOZ Attending Unavailable GLEN ., GABINO Admitting Unavailable AICHHOLZ, COURT MAGISTRATE ARIANE Primary Care Unavailable JOSE EDUARDO RIVERS V Consulting Unavailable JEYSON BLANTON Consulting Unavailable GABINO MUÑOZ Consulting Unavailable PAY ., DR SWANSON Admitting Unavailable PAY ., DR SWANSON Consulting Unavailable AICHHOLZ, COURT MAGISTRATE ARIANE Primary Care Unavailable PAY ., DR SWANSON Attending Unavailable GERALDINE LAZAR Consulting Unavailable CORDELL ., DR DEL RIO Attending Unavailable CORDELL ., DR DEL RIO Admitting Unavailable AICHHOLZ, COURT MAGISTRATE ARIANE Primary Care Unavailable HAY ., DR DEL RIO Consulting Unavailable GLEN .GABINO Attending Unavailable GLEN Mckinnon, GABINO Admitting Unavailable AICHHOLZ, COURT MAGISTRATE ARIANE Primary Care Unavailable DONTRELL DIAZ Consulting Unavailable GABINO MUÑOZ Consulting Unavailable JOSE EDUARDO RHODES Consulting Unavailable AICHHOLZ, COURT MAGISTRATE ARIANE Referring Unavailable AICHHOLZ, COURT MAGISTRATE ARIANE Primary Care Unavailable YUKI, AHMAD Attending Unavailable YUKI, AHMAD Admitting Unavailable YUKI, AHMAD Consulting Unavailable AICHHOLZ, COURT MAGISTRATE ARIANE Consulting Unavailable AICHHOLZ, COURT MAGISTRATE ARIANE Attending Unavailable AICHHOLZ, COURT MAGISTRATE ARIANE Admitting Unavailable AICHHOLZ, COURT MAGISTRATE ARIANE Primary Care Unavailable HAYDE VAN Consulting Unavailable AICHHOLZ, COURT MAGISTRATE ARIANE Consulting Unavailable AICHHOLZ, COURT MAGISTRATE ARIANE Attending Unavailable AICHHOLZ, COURT MAGISTRATE ARIANE Admitting Unavailable AICHHOLZ, COURT MAGISTRATE ARIANE Primary Care Unavailable AMINATA BOURGEOIS Attending Unavailable AMINATA BOURGEOIS Admitting Unavailable JEYSON BLANTON Consulting Unavailable AICHHOLZ, COURT MAGISTRATE ARIANE Primary Care Unavailable AMINATA BOURGEOIS Consulting Unavailable AICHHOLZ, COURT MAGISTRATE ARIANE Primary Care Unavailable FADI, DR MEJIA Consulting Unavailable FADI, DR MEJIA Attending Unavailable DR ROBERTO APONTE Admitting Unavailable ELIDA COWAN Consulting Unava ilable RUSSELL, ARIANE J Primary Care Physician Riky Le Attending Unavailable Jose LEUNG, Donavan Reid Attending Unavailable Georges Shook MD Primary Care Provider Channing Freire MD Unavailable Aicbrendan SHELL SIEVE OPERATOR-C, Ariane J Primary Care Provider [phone] Aicbrendan SHELL SIEVE OPERATOR-C, Ariane J Attending Provider [phone] Georges Shook MD Primary Care Provider [phone] Channing Freire MD Unavailable Viktoria Montilla DO Admit Provider [phone] Viktoria Montilla DO Attending Provider Russell SHELL SIEVE OPERATOR, Ariane Unavailable Georges Shook MD Primary Care Provider [phone] Channing Freire MD Primary Care Provider Ariane Wells Primary Care Unavailable Juan Alberto Shultz Admitting Unavailwilli e Juan Alberto Shultz Attending Unavailwilli e Ariane Wells Primary Care Unavailable Itzkonaif, Viktoria Admitting Unavailable Itzvon Viktoria Attending Unavailable ITZVON VIKTORIA H Attending Unavailable VIKTORIA MONTILLA H Attending Unavailable VIKTORIA MONTILLA H Attending Unavailable Unallocated Delaney LEUNG Provider Primary Care Provi suman Allergies Allergy ClassificationReported Allergen(s)Allergy TypeDate of OnsetReaction(s) Facility (2 sources)predniSONE; Translations: [predniSONE]Drug Bkywbgl60-57-5645[facility] Repository (1 source)predniSONE; Translations: [prednisone]Drug Mqdadrn74-00-9661Bxnrsar speech (finding), Tremor (finding)[facility] [place] (20 sources)PrednisonePropensity to adverse kxwywobbf38-09-9765[facility] Work Phone: (1 source)predniSONEDrug Nrugumc73-02-1625EdqfewjkwS[facility] Medications Current Medications MedicationDrug Class(es)DatesSig (Normalized)Sig (Original)acetaminophen 325 mg / oxyCODONE hydrochloride 5 mg oral tablet (1 source)Opioid AgonistStart: 04-90-6079khkc 1 tablet by mouth every six hours as needed for painARIPiprazole 15 mg oral tablet (20 sources)Atypical AntipsychoticStart: 06-03-2023 End: 34-99-7582lqjq 1 tablet by mouth once dailyARIPiprazole (Abilify) 15 MG tablet Take 15 mg by mouth Daily 06/03/2023 ActiveStart: 75-77-9496morq 1 tablet by mouth once dailyaripiprazole 5 mg Tab 5 mg = 1 tab(s), Oral, Daily, Refills(s) 0 Start Date: 01/25/20 Status: Orderedbetamethasone 1 mg/ml topical cream (20 sources)CorticosteroidStart: 02-69-5316dmplxilfbgnum valerate (Valisone) 0.1 % cream Indications: 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HCC)Apply to affected areas, up to twice a day when flared, do not use one the face, groin, or underarms, 30 day supply 45 g 3 05/18/2024 ActiveStart: 04-12-2871zetbajradherf dipropionate (Diprolene) 0.05 % ointment Indications: 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HCC) Apply to affected areas, up to twice a day when flared, do not use one the face, groin, orunderarms, 30 day supply 45 g 3 05/11/2024 Active busPIRone hydrochloride 10 mg oral tablet (20 sources)Start: 06-16-2024 End: 69-02-5835uucx 1 tablet by mouth in the morning, [...] 90 tablet 2 06/16/2024 ActiveStart: 06-03-2023 End: 54-31-0439zzlt 1 tablet by mouth three times dailyBuspirone 10 mg tablet Discontinued 10 MG PO Three times daily May 20, 2025 12:00am 2024 2:12pmStart: 66-45-7783vlpJZRfxd Refills(s) 0 Start Date: 02/06/22 Status: OrderedCalcium (1 source)Phosphate Binder, CalciumStart: 76-03-7793zchi 1 tablet by mouth once dailyCalcium 600+D 1 tab, Oral, Daily, Refill(s) 0 Start Date: 11/30/19 Status: Orderedcephalexin 500 mg oral capsule (5 sources)Cephalosporin AntibacterialStart: 27-42-3898hplryutpwo (Keflex) 500 MG capsule Every 8 hours 06/21/2025 Activeclobetasol propionate 0.5 mg/ml topical cream (20 sources)CorticosteroidStart: 60-08-8719yhxxwxdsnj (Temovate) 0.05 % cream Indications: Granuloma annulare Apply topically Daily Apply to affected area once a day for up to 8 weeks. No use on face 45 g 01/15/2024 Activeclotrimazole 10 mg/ml vaginal cream (1 source)Azole AntifungalStart: 05-26-2024 End: 00-52-5991qmhhrcvzgmxq (Lotrimin) 1 % vaginal cream Indications: Candidiasis of vagina Insert 1 applicator into the vagina in the evening for 7 days 45 g 05/26/2024 06/02/2024 ActiveContinuous Glucose Sensor (FreeStyle Ksenia 2 Sensor) misc (20 sources)Start: 12-98-3473Fgqcpnsikn Glucose Sensor (FreeStyle Ksenia 2 Sensor) misc CHANGE SENSOR EVERY 14 DAYS 04/03/2023 Activefluconazole 150 mg oral tablet (9 sources)Azole AntifungalStart: 49-54-3502rehdhtjrlex (Diflucan) 150 MG tablet Indications: Yeast infection Take one dose every 3 days for 3 doses 3 tablet 06/23/2024 ActiveFLUoxetine 20 mg oral capsule (20 sources)Serotonin Reuptake InhibitorStart: 02-20-2022 End: 19-66-9844tabh 1 capsule by mouth once dailyFluoxetine 40 mg capsule Discontinued 40 MG PO Daily May 20, 2025 12:00am June 0852:11pm Start: 01-06-2020 End: 82-35-4353hrbh 1 capsule by mouth once dailyFLUoxetine (PROzac) 20 MG capsule Take 20 mg by mouth Daily 06/03/2023 ActiveStart: 01-06-2020 End: 03-72-2749oaie 1 capsule by mouth once dailyFluoxetine 10 mg capsule Discontinued 10 MG PO Daily January 06, 2020 12:00am May 20, 2025 6:00pm gabapentin 100 mg oral capsule (20 sources)Anti-epileptic AgentStart: 02-02-2024 End: 83-91-4085qwpm 1 capsule by mouth in the morning, then take 1 capsule by mouth in the evening, then take 1 capsule by mouth at bedtimegabapentin (Neurontin) 100 MG capsule Take 100 mg by mouth in the morning and 100 mg in the eveningand 100 mg before bedtime. 02/02/2024 ActiveHumuLIN R KwikPen (Concentrated) (1 source)Start: 14-88-4828IioeQMG R KwikPen (Concentrated) Refills(s) 0 Start Date: 02/06/22 Status: Ordered3 ml insulin lispro 100 unt/ml pen injector (20 sources)Insulin Analoginsulin lispro (HumaLOG KWIKPEN) 100 UNIT/ML injection as directed Subcutaneous Active3 ml insulin, regular, human 500 unt/ml pen injector (20 sources)InsulinStart: 00-75-9700SsesPLV R U-500 KWIKPEN 500 UNIT/ML CONCENTRATED injection INJECT 80 UNITS TWICE A DAY PLUS ISS 15>150 (EXPECT DAILY DOSE 225 UNITS) 11/01/2023 Activemagnesium oxide 250 mg oral tablet (1 source)Start: 60-69-9204wrkv 1 tablet by mouth once dailymagnesium oxide 250 mg oral tablet 250 mg = 1 tab(s), Oral, Daily, Refills(s) 0 Start Date: 11/30/19 Status: Ftsqeks86 hr metFORMIN hydrochloride 500 mg extended release oral tablet (20 sources)BiguanideStart: 22-54-0070dusf 2 tablets by mouth twice daily, then [...] day Non-compliance of drug therapyStart: 01-06-2020 End: 15-01-3000afhh 1 tablet by mouth twice dailyMetformin 500 mg tablet extended release 24 hr Discontinued 2 TAB PO Twice daily January 06, 2020 12:00am June 08, 2025 2:12pmStart: 60-27-2732dxrz 2 tablets by mouth twice daily Glucophage [...] oral tablet (1 source)Muscle RelaxantStart: 11-27-2023 End: 25-53-5291cxpm 1 tablet by mouth three times dailyRobaxin-750 oral tablet 1,500 mg = 2 tab(s), Oral, TID, X 3 day(s), # 18 tab(s), Refills(s) 0, Pharmacy: [facility] 1155, 160, cm, 11/27/23 12:59:00 EDT, Height/Length Dosing, 114.1, kg, 11/27/23 12:59:00 EDT, Weight Dosing Start Date: 11/27/23 Stop Date: 11/30/23 Status: Orderednaproxen 500 mg oral tablet (1 source)Nonsteroidal Anti-inflammatory DrugStart: 06-10-0296yull 1 tablet by mouth twice daily as needed for painNaprosyn 500 mg Tab 500 mg = 1 tab(s), Oral, BID, PRN for pain, # 20 tab(s), Refills(s) 0, Pharmacy: [facility] 1155, 160, cm, 11/27/23 12:59:00 EDT, Height/Length Dosing, 114.1, kg, 11/27/23 12: 59:00 EDT, Weight Dosing Start Date: 11/27/23 Status: Orderedpravastatin sodium 20 mg oral tablet (20 sources)HMG-CoA Reductase InhibitorStart: 01-28-2023 End: 50-13-5773ruzq 1 tablet by mouth in the eveningpravastatin (Pravachol) 20 MG tablet Take 20 mg by mouth in the evening 01/28/2023 ActiveTirzepatide (1 source)Start: 58-46-1853Mehfyukrsjb (Mounjaro) 5 mg/0.5 mL pen injector Active 5 MG SUBCUT every week 10 02June 08334227:00am Uncontrolled type 2 diabetes mellitus, without long-term current use of insulin Complies with drug therapytiZANidine 4 mg oral tablet (20 sources)Central alpha-2 Adrenergic AgonistStart: 03-03-2024 End: 19-42-1152lgNSZkiuok (Zanaflex) 4 MG tablet Take 4 mg by mouth 03/03/2024 Active Completed/Discontinued Medications MedicationDrug Class(es)DatesSig (Normalized)Sig (Original)[id number] 200 actuat albuterol 0.09 mg/actuat metered dose inhaler (20 sources)beta2-Adrenergic AgonistStart: 05-20-2025 End: 20-73-8781ylfi 1 puff(s) by inhalation every four to [...] tablet (2 sources)gamma-Aminobutyric Acid-ergic AgonistStart: 01-06-2020 End: 93-58-5343Yrmnhztn 10 mg Tablet Discontinued 10 MG PO As Directed January 06, 2020 12:00am May 20, 2025 5:58pmcalcium carbonate 1500 mg oral tablet (2 sources)Start: 01-06-2020 End: 84-00-2992qjng 1 tablet by mouth once dailyCalcium Carbonate (Calcium 600) 600 mg calcium (1,500 mg) Tablet Discontinued 600 MG PO Daily January 06, 2020 12:00am May 20, 2025 5:58pmcholecalciferol 0.125 mg oral tablet (13 sources)Vitamin DStart: 05-20-2025 End: 82-49-1734evga 1 tablet by mouth once dailyCholecalciferol (Vitamin D3) 125 mcg (5,000 unit) tablet Discontinued 125 MCG PO Daily May 20, 2025 12:00am June 08, 2025 2:10pmStart: 01-06-2020 End: 67-36-5530tjkc 1 tablet by mouth once dailyCholecalciferol (Vitamin D3) (Vitamin D3) 50 mcg (2,000 unit) Tablet Discontinued 2000 UNIT PO Daily January 06, 2020 12:00am May 20, 2025 5:58pmCholecalciferol 125 MCG (5000 UT) chewable tablet Chew Activecyclobenzaprine hydrochloride 10 mg oral tablet (20 sources)Muscle RelaxantStart: 05-20-2025 End: 32-89-8784aqqa 1 tablet by mouth twice daily as neededCyclobenzaprine 10 mg tablet Discontinued 10 MG PO Twice daily as needed May 20, 2025 12:00am June 08, 2025 2:10pmStart: 94-75-3682zsyh 1 tablet by mouth once, then take [...] (20 sources)Sodium-Glucose Cotransporter 2 InhibitorStart: 05-20-2025 End: 71-31-3673cjdt 1 tablet by mouth once dailyEmpagliflozin (Jardiance) 25 mg tablet Discontinued 25 MG PO Daily May 20, 2025 12:00am June 08, 2025 2:10pmStart: 84-77-5813Ofhpcifwp Refills(s) 0 Start Date: 02/06/22 Status: OrderedMagnesium (20 sources)Start: 01-06-2020 End: 48-88-9562odkj 1 tablet by mouth once dailyMagnesium 250 mg Tablet Discontinued 250 MG PO Daily January 06, 2020 12:00am June 08, 2025 2:11pm Start: 75-75-5980sfkp 1 tablet by mouth once dailymagnesium 250 MG tablet 1 (one) time each day at the same time Activeondansetron 4 mg oral tablet (2 sources)Serotonin-3 Receptor AntagonistStart: 01-06-2020 End: 55-41-3078Zxgypkfdpgh Hcl 4 mg tablet Discontinued 4 MG PO As Directed as needed for Nausea January 06, 2020 12:00am June 08, 2025 2:11pmpantoprazole 40 mg delayed release oral tablet (20 sources)Proton Pump InhibitorStart: 11-30-2019 End: 85-52-7222wfrh 1 tablet by mouth once dailyPantoprazole 40 mg tablet,delayed release (DR/EC) Discontinued 40 MG PO Daily January 06, 2020 12:00am June 08, 2025 2:11pmspironolactone 50 mg oral tablet (20 sources)Aldosterone AntagonistStart: 05-20-2025 End: 21-10-6759nwba 1 tablet by mouth once dailySpironolactone (Aldactone) 50 mg tablet Discontinued 50 MG PO Daily May 20, 2025 12:00am June 08, 2025 2:11pmtraZODone hydrochloride 50 mg oral tablet (20 sources)Serotonin Reuptake InhibitorStart: 01-06-2020 End: 76-60-7034eziw 1 tablet by mouth once dailyTrazodone 50 mg tablet Discontinued 50 MG PO Daily January 06, 2020 12:00am May 20, 2025 6:02pm Start: 11-30-2019 End: 75-42-4435kzsc 2 tablets by mouth once daily at bedtime as neededTrazodone 50 mg tablet Discontinued 100 MG PO Daily at bedtime as needed May 20, 2025 12:00am June 08, 2025 2:11pmVitamin D3 2000 intl units oral tablet (1 source)Start: 53-83-1877abaz 1 tablet by mouth once dailyVitamin D3 2000 intl units oral tablet 2,000 International_Unit = 1 tab(s), Oral, Daily, Refills(s)0 Start Date: 11/30/19 Status: Ordered Problems Active Problems Problem ClassificationProblemDateDocumented DateEpisodic/ChronicAbdominal hernia (20 sources)Umbilical hernia without obstruction or gangrene; Translations: [Umbilical hernia]Onset: 34-88-5369OwsafrhtWzybptyvw pain (5 sources)Unspecified abdominal pain; Translations: [UNSPECIFIED ABDOMINAL PAIN]Onset: 02-95-4771XjjnuyxzLeomoiy disorders (20 sources)Anxiety disorder, unspecified; Translations: [Generalized anxiety disorder]Onset: 44-77-0242YqianoyWyqufmgon-deficit, conduct, and disruptive behavior disorders (20 sources)Attention deficit hyperactivity disorder; Translations: [Attention- deficit hyperactivity disorder, unspecified type]Onset: ChronicDiabetes mellitus with complications (8 sources)Type 2 diabetes mellitus with hyperglycemia; 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]Onset: 62-70-6243XrzppnoTvemxhbk mellitus without complication (20 sources)Type 2 diabetes mellitus without complications; Translations: [Diabetes mellitus]Onset: 12-16-2022 Resolved: 485695-14-5799MtlgxuwCsarua infertility (20 sources)Female infertility; Translations: [Female infertility, unspecified] Onset: 608790-87-5378ZbadnbyNdciksibljzl diseases of female pelvic organs (4 sources)Abscess of vulva; Translations: [ABSCESS OF VULVA]Onset: 11-10-2022 EpisodicJoint disorders and dislocations; trauma-related (1 source)Unspecified internal derangement of right knee; Translations: [UNS INTERNAL DERANGEMENT RIGHT KNEE]Onset: 24-38-3812NihmnefYmcu disorders (20 sources)Bipolar disorder; Translations: [Depressive disorder]Onset: 183764-74-0132JdzlcuoMnjicttnwwj deficiencies (20 sources)Vitamin D deficiency, unspecified; Translations: [Vitamin D deficiency]Onset: 12-77-2142OtyftdtUdsyo acquired deformities (1 source)Acquired deformity of ankle AND/OR vziw34-52-4989XoaozlmkJwziy aftercare (1 source)Other intermodal 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 service (current) 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 therapy; Translations: [OTH SENIOR LIVING 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 THERAPY]Onset: 99-55-8751LnkvuamtVelfo aftercare (1 source)termite helper (current) use of oral hypoglycemic drugs; Translations: [SENIOR LIVING USE ORAL 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 DX]Onset: 15-88-6360EveszblhVouea aftercare (1 source)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 helper (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; Translations: [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 INSULIN]Onset: 91-61-6723FyqmvntcLbbyf ear and sense organ disorders (20 sources)Conductive hearing loss, bilateral; Translations: [Conductive hearing loss, bilateral]Onset: 794174-80-3733FfdfhyeJgjvn ear and sense organ disorders (2 sources)Conductive hearing loss; Translations: [Conductive hearing loss, unspecified]28-50-7342UgkvhtzIcash endocrine disorders (1 source)Polycystic ovarian syndrome; Translations: [POLYCYSTIC OVARIAN SYNDROME]Onset: 30-66-5999TgvdxezJfilc endocrine disorders (20 sources)Polycystic ovary syndrome; Translations: [Polycystic ovarian syndrome]Onset: 379815-73-0548NfzyepqUoaiu non-traumatic joint disorders (4 sources)Pain in right knee; Translations: [PAIN IN RIGHT KNEE]Onset: 99-50-7419LnjouckhCqyuf non-traumatic joint disorders (1 source)Shoulder joint pain; Translations: [Pain in unspecified shoulder] Onset: 54-19-4597WzqzsgbeAhcgr nutritional; endocrine; and metabolic disorders (1 source)Morbid (severe) obesity due to excess calories; Translations: [MORBID SEVERE OBES D/T EXCESS CASA]Onset: 82-19-6656ZqxolwdRoqrp nutritional; endocrine; and metabolic disorders (1 source)Metabolic syndrome; Translations: [METABOLIC SYNDROME]Onset: 79-68-8152PvlmvgwHwdiq nutritional; endocrine; and metabolic disorders (1 source)Obesity, unspecified; Translations: [OBESITY UNSPECIFIED]Onset: 07-91-2412SflcivfSfpmg nutritional; endocrine; and metabolic disorders (1 source)Body mass index (BMI) 40.0-44.9, adult; Translations: [BODY MASS INDEX BMI 40.0-44.9 ADULT]Onset: 75-21-8642PddgunvSryao nutritional; endocrine; and metabolic disorders (1 source)Body mass index (BMI) 45.0-49.9, adult; Translations: [BODY MASS INDEX BMI 45.0-49.9 ADULT]Onset: 80-87-5920YdekukqOneaf nutritional; endocrine; and metabolic disorders (20 sources)Body mass index 40+ - severely obese; Translations: [Body mass index (BMI) 45.0-49.9, adult]Onset: 656879-54-5170RokpljkEsoha nutritional; endocrine; and metabolic disorders (20 sources)Severe obesity; Translations: [Class 3 severe obesity due to excess calories with body mass index (BMI) of 40.0 to 44.9 in adult]Onset: 12-25-2023 50-11-2710CxmlkmnReqln nutritional; endocrine; and metabolic disorders (2 sources)Morbid obesity; Translations: [Morbid (severe) obesity due to excess calories]22-28-7231QxbytpxBmine screening for suspected conditions (not mental disorders or infectious disease) (1 source)Cancer cervix screening status; Translations: [Encounter for screening for malignant neoplasm of cervix]05-31-2876NhvjdladOannfgkj codes; unclassified (1 source)Sleep ktang84-19-3960LqslgcaIxhvvjwq codes; unclassified (20 sources)Obstructive sleep apnea syndrome; Translations: [Obstructive sleep apnea (adult) (pediatric)]Onset: 217408-71-8962QgsqfmjWpusbkbk codes; unclassified (2 sources)History of adenoidectomy; Translations: [Acquired absence of other organs]72-21-5205AebwazcgAgbcbubycxn; intervertebral disc disorders; other back problems (20 sources)Degeneration of lumbar intervertebral disc; Translations: [DDD (degenerative disc disease), lumbar]Onset: 813124-45-3509UxignefGqcgsisyt- related disorders (5 sources)Nicotine dependence, cigarettes, uncomplicated; Translations: [Nicotine dependence]Onset: 031561-32-1813KcohkprVfmqncqyvrqf (3 sources)LOW BACK PAIN, UNSPECIFIED; Translations: [LOW BACK PAIN, UNSPECIFIED]Onset: 20-96-8922Eqzvsgxyhrun (1 source)CONTACT W/AND (SUSP) EXPOS COVID-19; Translations: [CONTACT W/AND (SUSP) EXPOS COVID-19]Onset: 14-08-7706Legctrkdzqsa (1 source)COUGH, UNSPECIFIED; Translations: [COUGH, UNSPECIFIED]Onset: 44-82-8009Kegluxefrhvh (1 source)You may use alternating doses of [...] origin (4 sources)Fever, unspecified; Translations: [FEVER UNSPECIFIED]Onset: 13-00-7955YpsmhmshHjsq disorders (20 sources)Mood disordersOnset: 867622-86-2204Ubvdgrd (20 sources)Candidiasis of vagina; Translations: [Candidiasis of vagina]Onset: 577710-94-7129JaexeuynWwcjfnxbjlj chest pain (1 source)Chest pain, unspecified; Translations: [CHEST PAIN UNSPECIFIED]Onset: 40-52-1029ZcftlrofGtuyg acquired deformities (20 sources)Acquired deformity of right ankle; Translations: [Unspecified acquired deformity of right lower leg]Onset: 552287-55-6407EwcmgnubMnmgb connective tissue disease (20 sources)Spasm; Translations: [Other muscle spasm]Onset: 036514-51-3237 EpisodicOther connective tissue disease (20 sources)Foreign body granuloma of soft tissue; Translations: [Foreign body granuloma of soft tissue, not elsewhere classified, unspecified ankle and foot] Onset: 01-15-2024 Resolved: 409844-16-5460WduxzxdgJfkiw female genital disorders (13 sources)Vaginal discharge; Translations: [Other specified noninflammatory disorders of vagina]Onset: 032435-98-1651MssceefkPcfdt inflammatory condition of skin (20 sources)Granuloma annulare; Translations: [Granuloma annulare]Onset: 024398-04-1176NnukifkfSxngz skin disorders (1 source)Hirsutism; Translations: [HIRSUTISM]Onset: 42-18-2771BztcwzraYzeyf skin disorders (2 sources)Eruption; Translations: [Rash and other nonspecific skin eruption] 82-99-1451HobdauqhUjkgz upper respiratory infections (1 source)Acute upper respiratory infection, unspecified; Translations: [ACUTE UP RESPIRATORY INFECTION UNS]Onset: 96-33-8151RuzpylnsSnwshs media and related conditions (20 sources)Other specified disorders of Eustachian tube, left ear; Translations: [Dysfunction of bilateral eustachian tubes]Onset: 05-13-2022 EpisodicResidual codes; unclassified (20 sources)Insomnia; Translations: [Insomnia, unspecified]Onset: 12-25-2023 29-42-4387AwpffbjlTpydaxll codes; unclassified (20 sources)Tobacco user; Translations: [Tobacco use]Onset: EpisodicUnclassified (1 source)LOW BACK PAIN, UNSPECIFIED; Translations: [LOW BACK PAIN, UNSPECIFIED] Onset: 11-15-2022 Results Test NameValueInterpretationReference RangeFacilityCT abdomen pelvis w conon 13-54-0875KE abdomen pelvis w [facility] [place] [address] CT Scan Report Signed Patient: Marilia Vera MR#: [id number] : 1990 Acct:[id number] Age/Sex: 35 / F ADM Date: 07/02/25 Loc: ER Room: Type: [facility] ER Attending Dr: Copies to: Juan Alberto [...] Lara M.D. 07/03/2025 7:36 AM Dictation Location: [facility] Transcribed By: [facility] 07/03/25 0736 Dictated By: Felipe Lara MD 07/03/25 0731 Signed By: 07/03/25 0736NoFormerly [facility] Physician GroupBasic Metabolic Panelon 89-59-0708Ewafk gap [Moles/Vol]9.5 mmol/LNormal6.0-15.0The [facility] Physician GroupComment on above:Performed By: #### BMP, LACTIC, CBC, LIPASE, HEPATIC #### [facility] [address] [place] [address] USACalcium [Mass/Vol]9.3 mg/dLNormal8.6-10.3The [facility] Physician GroupComment on above:Performed By: #### BMP, LACTIC, CBC, LIPASE, HEPATIC #### [facility] [address], [place] [address] USAChloride [Moles/Vol]104 mmol/GTshtfq60-539Qou [facility] Physician GroupComment on above:Performed By: #### BMP, LACTIC, CBC, LIPASE, HEPATIC #### [facility] [address] [place] [address] USACO2 [Moles/Vol]27.2 mmol/HJesxlb89.0-31.0The [facility] Physician GroupComment on above:Performed By: #### BMP, LACTIC, CBC, LIPASE, HEPATIC #### [place] [address] USACreatinine [Mass/Vol]0.81 mg/dLNormal0.60-1.20The [facility] Physician GroupComment on above:Performed By: #### BMP, LACTIC, CBC, LIPASE, HEPATIC #### [place] [address] USACreatinine Clr Calc Qlijcanz086.05NormalThe [facility] Physician GroupComment on above:Performed By: #### BMP, LACTIC, CBC, LIPASE, HEPATIC #### [place] [address] USAGFR/1.73 sq M.predicted MDRD (S/P/Bld) [Vol rate/Area] mL/min/{1.73_m2}NormalThe [facility] Physician GroupComment on above:Performed By: #### BMP, LACTIC, CBC, LIPASE, HEPATIC #### [place] [address] USAGlucose [Mass/Vol]127 mg/zADdpr54-814Rdt [facility] Physician GroupComment on above:Result Comment: Random Glucose Reference Range is dependent on time and content of last meal. Glucose of more than 200 mg/dL in a nonstressed, ambulatory subject supports the diagnosis of Diabetes Mellitus. ADA recommended reference rangePerformed By: #### BMP, LACTIC, CBC, LIPASE, HEPATIC #### [place] [address] USAPotassium [Moles/Vol]3.7 mmol/LNormal3.5-5.1The [facility] Physician GroupComment on above:Performed By: #### BMP, LACTIC, CBC, LIPASE, HEPATIC #### [place] [address] USASodium [Moles/Vol]137 mmol/ZTqxsgk617-392Wsw [facility] Physician GroupComment on above:Performed By: #### BMP, LACTIC, CBC, LIPASE, HEPATIC #### [place] [address] USAUrea nitrogen [Mass/Vol]17 mg/dLNormal7-25The [facility] Physician GroupComment on above:Performed By: #### BMP, LACTIC, CBC, LIPASE, HEPATIC #### [place] [address] USAComplete Blood Count Auto Diffon 56-53-6495Werkwmbuh (Bld) [#/Vol]0.0 10*3/uLNormal0.0-0.2The [facility] Physician GroupComment on above: Result Comment: PERFORMED BY: [place] [address] PATHOLOGIST JAVA J2EE APPLICATION DEVELOPER RALPH SUN M.D.Performed By: #### BMP, LACTIC, CBC, LIPASE, HEPATIC #### [place] [address] USABasophils/100 WBC (Bld)0.3 %Normal.The [facility] Physician GroupComment on above:Performed By: #### BMP, LACTIC, CBC, LIPASE, HEPATIC #### [place] [address] USAEosinophils (Bld) [#/Vol]0.1 10*3/uLNormal0.0-0.45The [facility] Physician GroupComment on above:Performed By: #### BMP, LACTIC, CBC, LIPASE, HEPATIC #### [place] [address] USAEosinophils/100 WBC (Bld)1.2 %Normal.The [facility] Physician GroupComment on above:Performed By: #### BMP, LACTIC, CBC, LIPASE, HEPATIC #### [place] [address] USAErythrocyte distribution width (RBC) [Ratio]13.9 %Normal 11.9-15.3The [facility] Physician GroupComment on above:Performed By: #### BMP, LACTIC, CBC, LIPASE, HEPATIC #### [place] [address] USAHematocrit (Bld) [Volume fraction]39.4 %Eeceaw17.0-46.4The [facility] Physician GroupComment on above:Performed By: #### BMP, LACTIC, CBC, LIPASE, HEPATIC #### [place] [address] USAHemoglobin (Bld) [Mass/Vol]13.4 g/bYGloobj69.8-15.4The [facility] Physician GroupComment on above:Performed By: #### BMP, LACTIC, CBC, LIPASE, HEPATIC #### [place] [address] USALymphocytes (Bld) [#/Vol]4.2 10*3/uLNormal1.00-4.8The [facility] Physician GroupComment on above:Performed By: #### BMP, LACTIC, CBC, LIPASE, HEPATIC #### [place] [address] USALymphocytes/100 WBC (Bld)38.8 %Normal.The [facility] Physician GroupComment on above:Performed By: #### BMP, LACTIC, CBC, LIPASE, HEPATIC #### [place] [address] USAMCH (RBC) [Entitic mass]27.2 qzWqykms26.7-34.3The [facility] Physician GroupComment on above:Performed By: #### BMP, LACTIC, CBC, LIPASE, HEPATIC #### [place] [address] USAMCV (RBC) [Entitic vol]79.9 xYCit08-794Hdg [facility] Physician GroupComment on above:Performed By: #### BMP, LACTIC, CBC, LIPASE, HEPATIC #### [place] [address] USAMean Corpuscular HGB Conc34.1 g/mPLfasev75.0-35.0The [facility] Physician GroupComment on above:Performed By: #### BMP, LACTIC, CBC, LIPASE, HEPATIC #### [place] [address] USAMonocytes (Bld) [#/Vol]0.7 10*3/uLNormal0.0-0.8The [facility] Physician GroupComment on above:Performed By: #### BMP, LACTIC, CBC, LIPASE, HEPATIC #### [place] [address] USAMonocytes/100 WBC (Bld)19.87 %Normal0.00-20.00The [facility] Physician GroupComment on above:Performed By: #### BMP, LACTIC, CBC, LIPASE, HEPATIC #### [place] [address] USAMonocytes/100 WBC (Bld)6.6 %Normal.The [facility] Physician GroupComment on above:Performed By: #### BMP, LACTIC, CBC, LIPASE, HEPATIC #### [place] [address] USANeutrophils (Bld) [#/Vol]5.7 10*3/uLNormal1.8-7.7The [facility] Physician GroupComment on above:Performed By: #### BMP, LACTIC, CBC, LIPASE, HEPATIC #### [place] [address] USANeutrophils/100 WBC (Bld)53.1 %Normal.The [facility] Physician GroupComment on above:Performed By: #### BMP, LACTIC, CBC, LIPASE, HEPATIC #### [place] [address] USANRBC%0.1 /100{WBC}Normal0-0.5The [facility] Group Comment on above:Performed By: #### BMP, LACTIC, CBC, LIPASE, HEPATIC #### [place] [address] USAPlatelet mean volume (Bld) [Entitic vol]8.8 fLNormal 6.3-10.7The [facility] Physician GroupComment on above:Performed By: #### BMP, LACTIC, CBC, LIPASE, HEPATIC #### [place] [address] USAPlatelets (Bld) [#/Vol]278 10*3/vCHkakuj104-846Ctv [facility] Physician GroupComment on above:Performed By: #### BMP, LACTIC, CBC, LIPASE, HEPATIC #### [place] [address] USARBC (Bld) [#/Vol]4.93 10*6/uLNormal3.60-5.00The [facility] Physician GroupComment on above:Performed By: #### BMP, LACTIC, CBC, LIPASE, HEPATIC #### [place] [address] USAWBC (Bld) [#/Vol]10.8 10*3/uLNormal3.8-11.6The [facility] Physician GroupComment on above:Performed By: #### BMP, LACTIC, CBC, LIPASE, HEPATIC #### [place] [address] USAWhite Blood Count10.8 [CFU]/mLNormal3.8-11.6The [facility] Physician GroupComment on above:Performed By: #### BMP, LACTIC, CBC, LIPASE, HEPATIC #### [place] [address] USADipstick and Microscopicon 04-07-0668Plkwecniwb (U)Cloudy Critically abnormalClearThe [facility] Physician GroupComment on above:Order Comment: Name Collection Type:: Clean-Voided MidstreamPerformed By: #### UHCG, CUU, ADDONUAPLUS #### [place] [address] USABacteria,UrineNone SeenNormalNone SeenThe [facility] Physician GroupComment on above:Order Comment: Name Collection Type:: Clean- Voided MidstreamPerformed By: #### UHCG, CUU, ADDONUAPLUS #### [facility] [address] [place] [address] USABilirubin,UrineNegativeNormalNegativeThe [facility] Physician GroupComment on above:Order Comment: Name Collection Type:: Clean- Voided MidstreamPerformed By: #### UHCG, CUU, ADDONUAPLUS #### [place] [address] USAColor (U)YellowNormalYellowThe [facility] Group Comment on above:Order Comment: Name Collection Type:: Clean-Voided Midstream Performed By: #### UHCG, CUU, ADDONUAPLUS #### [place] [address] USAGlucose Ql (U)500 mg/dLNormalNormalThe [facility] Physician GroupComment on above:Order Comment: Name Collection Type:: Clean-Voided MidstreamPerformed By: #### UHCG, CUU, ADDONUAPLUS #### [facility] [address] [place] [address] USAHyaline Casts,Encxu3-3Gnxaaf9-1Wce [facility] Physician GroupComment on above:Order Comment: Name Collection Type:: Clean-Voided MidstreamPerformed By: #### UHCG, CUU, ADDONUAPLUS #### [facility] [address] [place] [address] USAKetones Ql (U)NegativeNormalNegativeSouth [place] [facility] Physician GroupComment on above:Order Comment: Name Collection Type:: Clean- Voided MidstreamPerformed By: #### UHCG, CUU, ADDONUAPLUS #### [place] [address] USALeukocyte esterase Test strip Ql (U)1+NormalNegativeThe [facility] Physician GroupComment on above:Order Comment: Name Collection Type:: Clean-Voided MidstreamPerformed By: #### UHCG, CUU, ADDONUAPLUS #### [address] [place] [address] USAMucus,UrineRareNormalThe [facility] Physician GroupComment on above:Order Comment: Name Collection Type:: Clean-Voided MidstreamPerformed By: #### UHCG, CUU, ADDONUAPLUS #### [facility] [address] [place] [address] USANitrite,UrineNegativeNormalNegativeThe [facility] Physician GroupComment on above:Order Comment: Name Collection Type:: Clean-Voided MidstreamPerformed By: #### UHCG, CUU, ADDONUAPLUS #### [facility] [address] [place] [address] USAOccult Blood,Urine3+NormalNegativeThe [facility] Physician GroupComment on above:Order Comment: Name Collection Type:: Clean-Voided MidstreamPerformed By: #### UHCG, CUU, ADDONUAPLUS #### [place] [address] USApH (U)6.5 [pH]Normal5.0-9.0The [facility] Comment on above:Order Comment: Name Collection Type:: Clean-Voided Midstream Performed By: #### UHCG, CUU, ADDONUAPLUS #### [facility] [address] [place] [address] USAProtein,UrineNegativeNormalNegativeThe [facility] Physician GroupComment on above:Order Comment: Name Collection Type:: Clean-Voided MidstreamPerformed By: #### UHCG, CUU, ADDONUAPLUS #### [facility] [address] [place] [address] USARBC,UrineInnumerableNormal0-4The [facility] Comment on above:Order Comment: Name Collection Type:: Clean-Voided Midstream Performed By: #### UHCG, CUU, ADDONUAPLUS #### [facility] [address] [place] [address] USASpecificy [place],Urine1.953Wpzorc8.001-1.030The [facility] Physician GroupComment on above:Order Comment: Name Collection Type:: Clean- Voided MidstreamPerformed By: #### UHCG, CUU, ADDONUAPLUS #### [place] [address] USASquamous Epithelial Cell,Epmza9-0Grsiiu9-0[facility] Physician GroupComment on above:Order Comment: Name Collection Type:: Clean- Voided MidstreamPerformed By: #### UHCG, CUU, ADDONUAPLUS #### [place] [address] USAUrobilinogen,UrineNormalNormalNormMercy Hospitale [facility] Physician GroupComment on above:Order Comment: Name Collection Type:: Clean- Voided MidstreamPerformed By: #### UHCG, CUU, ADDONUAPLUS #### [place] [address] USAWBC CLUMP, UrineRareNormalNone SeenThe [facility] Physician GroupComment on above:Order Comment: Name Collection Type:: Clean-Voided MidstreamPerformed By: #### UHCG, CUU, ADDONUAPLUS #### [place] [address] USAWBC,Uoxtt3-3Fahrer0-0Rwg [facility] Physician GroupComment on above:Order Comment: Name Collection Type:: Clean-Voided MidstreamPerformed By: #### UHCG, CUU, ADDONUAPLUS #### [place] [address] USAHCG,Urineon 90-43-1776Adoz HCG ( test) Ql (U) NegativeNoFormerly [facility] Physician GroupComment on above:Order Comment: Name Collection Type:: Clean-Voided MidstreamResult Comment: PERFORMED BY: [place] [address] PATHOLOGIST JAVA J2EE APPLICATION DEVELOPER RALPH SUN M.D.Performed By: #### UHCG, CUU, ADDONUAPLUS #### [place] [address] USAHepatic Panelon 23-75-0101Hpqmdqf [Mass/Vol]4.3 g/dLNormal 3.5-5.7The [facility] Physician GroupComment on above:Performed By: #### BMP, LACTIC, CBC, LIPASE, HEPATIC #### [place] [address] USAAlbumin/Globulin [Mass ratio]1.3 {ratio}NormalThe [facility] Physician GroupComment on above:Performed By: #### BMP, LACTIC, CBC, LIPASE, HEPATIC #### [facility] [address] [place] [address] USAALP [Catalytic activity/Vol]67 U/JHejudh47-616Ail [facility] Physician GroupComment on above:Performed By: #### BMP, LACTIC, CBC, LIPASE, HEPATIC #### [place] [address] USAALT [Catalytic activity/Vol]19 U/LNormal7-52The [facility]ician [facility] HospitalComment on above:Performed By: #### BMP, LACTIC, CBC, LIPASE, HEPATIC #### [place] [address] USAAST [Catalytic activity/Vol]13 U/ACetocf81-36Pdv [facility] Physician GroupComment on above:Performed By: #### BMP, LACTIC, CBC, LIPASE, HEPATIC #### [place] [address] USABilirubin [Mass/Vol]0.4 mg/dLNormal0.3-1.0The [facility] Physician GroupComment on above:Performed By: #### BMP, LACTIC, CBC, LIPASE, HEPATIC #### [place] [address] USABilirubin,Indirect0.4 mg/dLNormalThe [facility] HospitalComment on above:Performed By: #### BMP, LACTIC, CBC, LIPASE, HEPATIC #### [place] [address] USABilirubin.indirect [Mass/Vol]0.00 mg/dLLow0.03-0.18The [facility] Physician GroupComment on above:Result Comment: If the DBIL is less than 0.1, IBIL is not able to be calculated.Performed By: #### BMP, LACTIC, CBC, LIPASE, HEPATIC #### [facility] [address] [place] [address] USAGlobulin (S) [Mass/Vol]3.2 g/dLNormalThe [facility] Physician GroupComment on above:Performed By: #### BMP, LACTIC, CBC, LIPASE, HEPATIC #### [facility] [address] [place] [address] USAProtein [Mass/Vol]7.5 g/dLNormal6.4-8.9The [facility] Physician GroupComment on above:Performed By: #### BMP, LACTIC, CBC, LIPASE, HEPATIC #### [facility] [address] [place] [address] USALactic Acidon 20-94-0550Efohiby [Moles/Vol]0.9 mmol/L Normal0.5-1.9The [facility] HospitalComment on above:Result Comment: Lactic Acid reference range has been updated to 0.5 ? 1.9 mmol/L and the critical range of 2.0 or greater. PERFORMED BY: [place] [address] PATHOLOGIST JAVA J2EE APPLICATION DEVELOPER RALPH SUN M.D.Performed By: #### BMP, LACTIC, CBC, LIPASE, HEPATIC #### [facility] [address] [place] [address] USALipaseon 43-43-3625Jjwpbd [Catalytic activity/Vol]37.0 U/L Gwynag66.0-82.0The Warren General HospitalComment on above:Result Comment: PERFORMED BY: [place] [address] PATHOLOGIST JAVA J2EE APPLICATION DEVELOPER RALPH SUN M.D.Performed By: #### BMP, LACTIC, CBC, LIPASE, HEPATIC ####[facility] [address] [place] [address] USAUrine Cultureon 34-23-2744Oiltcdxl identified Cx Nom (U)>100,000 colonies/ml mixed bacterial skin contaminants including mixed gram negative bacilli - 2 Days PERFORMED BY: [place] [address] PATHOLOGIST JAVA J2EE APPLICATION DEVELOPER RALPH SUN M.D.[facility] Physician GroupComment on above: Performed By: #### UHCG, SHARIFA, COLEENUAPLUS #### [place] [address] USABasophils Auto (Bld) [#/Vol]Ordered By: Ariane Wells on 62-48-5970Jojcvldyv (Bld) [#/Vol]0.0 10 3/uL0.0-0.1FCleveland Clinic Fairview HospitalBasophils/100 WBC Auto (Bld)Ordered By: Ariane Wells on 06-21-2025 Basophils/100 WBC (Bld)0.4 %0.2-2.0[facility] HospitalCapillary blood glucose measurement by glucometer (mass/volume)Ordered By: Viktoria Montilla on 04-96-1583Hsbmiud [Mass/Vol]145 mg/dLNormalSheltering Arms HospitalComment on above:Random Glucose Reference Range is [...] the diagnosis of Diabetes Mellitus. PERFORMED BY: [place] [address] PATHOLOGIST JAVA J2EE APPLICATION DEVELOPER RALPH SUN M.D.Performed By: #### GLULS #### Point of Care testing ,Eosinophils/100 WBC Auto (Bld)Ordered By: Ariane Wells on 06-21-2025 Eosinophils/100 WBC (Bld)1.3 %0.9-7.0[facility] Erythrocyte distribution width Auto (RBC) [Ratio]Ordered By: Ariane Wells on 12-28-3225Uiuyhgerdqa distribution width (RBC) [Ratio]13.0 %11.0-15.0[facility] HospitalGLUCOSE POCT GLUCOMETERSon 83-77-2302Ctbvivk [Mass/Vol] 145 mg/dLNOMS HealthcareComment on above:Random Glucose Reference Range is dependent on time and content of last meal. Glucose of more than 200 mg/dL in a nonstressed, ambulatory subject supports the diagnosis of Diabetes Mellitus. Centerpoint Medical CenterGlobulin Calc (S) [Mass/Vol]Ordered By: Ariane Wells on 68-60-0609Jzgxbhqs (S) [Mass/Vol]4.0 g/dLSheltering Arms Hospital Glomerular filtration rate (GFR) estimation in non- AmericanOrdered By: Ariane Wells on 93-53-4578OKZ/1.73 sq M.predicted among non-blacks MDRD (S/P/Bld) [Vol rate/Area]mL/min/{1.73_m2}>=60 mL/min/1.73m [address] [place], [place] [address]Hematocrit Auto (Bld) [Volume fraction]Ordered By: Ariane Wells on 65-53-6479Lthzedwhpw (Bld) [Volume fraction]40.3 %36.0-48.0[facility] HospitalHemoglobin [Mass/volume] in BloodOrdered By: Ariane Wells on 98-37-3314Wxaibmkjlo (Bld) [Mass/Vol]13.7 g/dL12.0-16.0S[facility] Arms HospitalLon 06-21-2025L Specimen: [id number] Received: 06/21/25 Status: CARLITO Devine Num: [id number] Spec Type: Surgical Subm Dr: Viktoria Montilla, DO Tissues: A Hernia Sac (HERNIA SAC) Procedures: HE, Gross/Micro L2 Age/ Patient Sex Location Account Attending Physician Marilia Vera 35/F 4P [id number] Viktoria Montilla, DO SPEC NUM: [id number] RECD: 06/21/25 STATUS: CARLITO GARRETTSusana NUM: [id number] KATHRIN: 06/21/250000 SUBM DR: Viktoria Montilla DO ENTERED: 06/21/[address]: DEVEN TYPE: Surgical DEPT: S ENTERED BY: [id number] RECV BY: [id number] ORDERED: HE, Gross/Micro L2 ORDERED: HE, Gross/Micro L2 Pathological Diagnosis Umbilical hernia, excision: [...] reveal martines-pink, glistening and uniform cut surfaces. Aurist sections are submitted in a single cassette. (1, ss, [id number] A) Marc Microscopic Description Microscopic examination is performed. Specimen: [id number] Received: 06/21/25 Status: CARLITO Devine Num: [id number] Spec Type: Surgical Subm Dr: Viktoria Montilla DO Tissues: A Hernia Sac (HERNIA SAC) Procedures: Serina TUCKER/Bere L2 Patient: Marilia Vera [id number] (Continued) Specimen: [id number] Received: 06/21/25 (Continued) Signed (signature on file) Iraj Shultz MD 06/23/25 1421 Specimen: [id number] Received: 06/21/25 Status: CARLITO Devine Num: [id number] Spec Type: Surgical Subm Dr: Viktoria Montilla DO Tissues: A Hernia Sac (HERNIA SAC) Procedures: Serina TUCKER/Bere L2 Patient: Marilia Vera [id number] (Continued) Specimen: [id number] Received: 06/21/25 (Continued) CPT Codes 96992 Specimen: [id number] Received: 06/21/25 Status: CARLITO Devine Num: [id number] Spec Type: Surgical Subm Dr: Viktoria Montilla, Tissues: A Hernia Sac (HERNIA SAC) Procedures: Serina TUCKER/Bere L2 Patient: Marilia Vera [id number] (Continued) Signed (signature on file) Iraj Shultz MD 06/23/25 1421Normal [facility] [place] [facility] Physician GroupLaboratory - Chemistry and Chemistry - challenge Ordered By: Jennifer Minaya on 02-21-2439Buhmowdvf Ql (U)NegativeNEGATIVESheltering Arms HospitalGlucose (U) [Mass/Vol]100 mg/dLAbnormalNEGATIVESheltering Arms HospitalKetones Ql (U)TRACE mg/dLAbnormalNEGATIVESheltering Arms HospitalpH (U)5.5 [pH]5.0-9.0[facility] Specific gravity (U) [Rel density]>=1.253Ljnndeol2.005-1.025S[facility] HospitalUrobilinogen Qn (U)0.2 {Oxana'U}/dL0.2-1.0[facility] HospitalLactate [Moles/Vol]0.6 mmol/L0.4-2.0[facility] HospitalLaboratory - Chemistry and Chemistry - challengeOrdered By: Ariane Wells on 30-15-2852Dqfltjp [Mass/Vol]3.7 g/dL3.4-5.0[facility] ALP [Catalytic activity/Vol]72 U/M14-566JognaintySheltering Arms HospitalALT [Catalytic activity/Vol]22 U/L00-08CwnlljitwSheltering Arms HospitalAST [Catalytic activity/Vol]13 U/OAdp91-13PhvhgvuaiSheltering Arms HospitalBilirubin [Mass/Vol]0.4 mg/dL0.2-1.0[facility] HospitalCalcium [Mass/Vol]9.1 mg/dL8.5-10.1FCleveland Clinic Fairview HospitalChloride [Moles/Vol]103 mmol/L 98-107S[facility] HospitalCO2 [Moles/Vol]26.0 mmol/L21.0-32.0 [facility] HospitalCreatinine [Mass/Vol]0.62 mg/dL0.55-1.02 [facility] HospitalGFR/1.73 sq M.predicted MDRD (S/P/Bld) [Vol rate/Area]mL/min/{1.73_m2}>=60 mL/min/1.73m 2FCleveland Clinic Fairview Hospital Glucose [Mass/Vol]198 mg/uZSarg83-586KhvylcpnySheltering Arms HospitalPotassium [Moles/Vol]4.2 mmol/L3.5-5.1FCleveland Clinic Fairview HospitalProtein [Mass/Vol] 7.7 g/dL6.4-8.2FAshtabula County Medical Centerodium [Moles/Vol]138 mmol/L 136-145S[facility] Arms HospitalUrea nitrogen [Mass/Vol]17.0 mg/dL 7.0-18.0S[facility] HospitalUrea nitrogen/Creatinine [Mass ratio] 27.4 mg/mgSheltering Arms HospitalLaboratory - Hematology and Cell countsOrdered By: Ariane Wells on 95-46-4468Pqzuxqpn granulocytes/100 WBC (Bld) 0.2 %0.0-0.5FCleveland Clinic Fairview HospitalLaboratory - Specimen information Ordered By: Jennifer Minaya on 64-08-0545Jmdolfcyxv (U)CLEARCLEARFCleveland Clinic Fairview HospitalColor (U)YELLOWYELLOWSheltering Arms HospitalLaboratory - UrinalysisOrdered By: Jennifer Minaya on 49-27-6734Knqmwxiej esterase Test strip Ql (U)NegativeNEGATIVESheltering Arms HospitalNitrite Ql (U)Negative NEGATIVESheltering Arms HospitalProtein Ql (U)NegativeNEG/TRACE [facility] HospitalLeukocytes [#/volume] corrected for nucleated erythrocytes in Blood by Automated counOrdered By: Ariane Wells on 06-21-2025 WBC corrected for nucl RBC Auto (Bld) [#/Vol]9.8 10 3/uL4.0-11.0S[facility] HospitalLymphocytes Auto (Bld) [#/Vol]Ordered By: Ariane Wells on 60-14-1374Hwztvpnpmku (Bld) [#/Vol]3.0 10 3/uL1.2-3.8S[facility] HospitalLymphocytes/100 WBC Auto (Bld)Ordered By: Ariane Wells on 81-07-4892Jicshgrxrua/100 WBC (Bld)30.3 %20.5-60.0[facility] Auto (RBC) [Entitic mass]Ordered By: Ariane Wells on 32-11-8503ZMP (RBC) [Entitic mass]27.5 pg26.7-34.0[facility] Medical CenterHC Auto (RBC) [Mass/Vol]Ordered By: Ariane Wells on 52-57-9593HWXT (RBC) [Mass/Vol]34.0 g/dL29.9-35.2FCleveland Clinic Fairview HospitalMCV Auto (RBC) [Entitic vol] Ordered By: Ariane Wells on 45-72-3124KNN (RBC) [Entitic vol]80.8 fLLow 81.0-99.0S[facility] HospitalMonocytes Auto (Bld) [#/Vol]Ordered By: Ariane Wells on 29-25-6757Vxkckrfib (Bld) [#/Vol]0.6 10 3/uL0.3-0.8 [facility] HospitalMonocytes/100 WBC Auto (Bld)Ordered By: Ariane Wells on 73-50-5746Lvkrlbvvd/100 WBC (Bld)6.5 %1.7-12.0[facility] HospitalNeutrophils Auto (Bld) [#/Vol]Ordered By: Ariane Wells on 65-28-9854Wkhxkqvnjrf (Bld) [#/Vol]6.0 10 3/uL1.4-6.5FCleveland Clinic Fairview HospitalNeutrophils/100 WBC Auto (Bld)Ordered By: Ariane Wells on 06-21-2025 Neutrophils/100 WBC (Bld)61.3 %43.0-75.0[facility] HospitalNo Panel InformationOrdered By: Jennifer Minaya on 88-50-2825Bmzkv Microscopic ReviewWVUMedicine Barnesville HospitalUrine Occult BloodNegativeNEGATIVESheltering Arms HospitalHuman Chorionic Gonadotropin, QualNegativeNEGATIVE [facility] HospitalNo Panel InformationOrdered By: Ariane Wells on 36-90-0154Ejgkyxbvdvh # (Auto)0.1 10 3/uL0.0-0.7FCleveland Clinic Fairview HospitalImmature Granulocyte # (Auto)0.02 10 3/uL0.00-0.03S[facility] HospitalPlatelet mean volume Auto (Bld) [Entitic vol]Ordered By: Ariane Wells on 62-43-5920Roqhhzqq mean volume (Bld) [Entitic vol]11.1 fL9.5-13.5 [facility] HospitalPlatelets Auto (Bld) [#/Vol]Ordered By: Ariane Wells on 42-07-9411Zmdfppgbs (Bld) [#/Vol]257 10 3/rY464-533RouuhfhxrSheltering Arms HospitalRBC Auto (Bld) [#/Vol]Ordered By: Ariane Wells on 95-79-2759PBO (Bld) [#/Vol]4.99 10 6/uL4.20-5.40[facility] Medical Centererum or plasma albumin/globulin mass ratioOrdered By: Ariane Wells on 04-88-2408Yerczui/Globulin [Mass ratio]0.9 {ratio}[facility] Medical Centererum or plasma anion gap determinationOrdered By: Ariane Wells on 09-23-3650Rclcy gap [Moles/Vol]13.2 mmol/LFCleveland Clinic Fairview HospitalHbA1c HPLC (Bld) [Mass fraction]Ordered By: Ariane Wells on 65-46-8962QvG5l (Bld) [Mass fraction]11.6 %[facility]tering Arms HospitalIGP,APTIMA HPV,AGE GDLNon 59-87-2060RBI GDLN ACOG TESTINGNote.NOMS HealthcareComment on above:TESTS RESULT FLAG UNITS REF RANGE LAB Clinician Provided Cytology Information Source.............Cervix;Endocervix No. of containers..01 ThinPrep Vial Age Algo ACOG Cristine... 30-65 01 FLAG LEGEND: L-Low Normal,H-High Normal,LL-Alert Low,HH-Alert High <-Panic Low,>-Panic High,A-Abnormal,AA-Critical Abnormal Performed at: 01 =G [facility] [address] Francesca Alonzo MD, HPV APTIMANegativeNegativeNOMS HealthcareComment on above:This nucleic acid amplification test detects fourteen high- risk HPV types (16,18,31,33,35,39,45,51,52,56,58,59,66,68) without differentiation. Performed at: =G - [facility], [place] [id number] Auto Salvage Worker: Francesca Alonzo MD, Phone: [phone] Performed at: - [facility], [place] [id number] [employer] Salv[employer] Worker: Francesca Alonzo MD, Phone: [phone] IGP, APTIMA HPV, RFX 16/18,45Note.NOMS HealthcareComment on above:TESTS RESULT FLAG UNITS REF RANGE LAB DIAGNOSIS: 02 NEGATIVE FOR INTRAEPITHELIAL LESION OR MALIGNANCY. Specimen adequacy: 02 Satisfactory for evaluation. No endocervical component is identified. Performed by: Hien Smith, Supervisor Intermediates (ASCP) . 02 Note: Note 02 The [...] High <-Panic Low,>-Panic High,A-Abnormal,AA-Critical Abnormal Performed at: [facility] [address] Francesca Alonzo MD, BROOM-ALONE CERVIX ENDOCERVIX CLINISYNCNOCO HealthcareUPPER RESPIRATORY CULTUREon 24-17-9614TSYIB RESPIRATORY CULTURE Upper Respiratory Culture Organism: Beta [...] HealthcareUPPER RESPIRATORY CULTURE performed routinely because nonsusceptible isolatesNOCO HealthcareUPPER RESPIRATORY CULTUREare extremely rare in any beta-hemolytic streptococcusNOCO HealthcareUPPER RESPIRATORY CULTUREand have not been reported for Streptococcus pyogenesNOCO HealthcareUPPER RESPIRATORY CULTURE(group A). (CLSI)[facility] UPPER RESPIRATORY CULTUREBeta hemolytic Strep group BNOMS HealthcareUPPER RESPIRATORY CULTURE O:BETAGB Isolated [facility] HealthcareUPPER RESPIRATORY CULTUREPerformed at: [facility] LabSearcy Hospital HealthcareUPPER RESPIRATORY [address] [place], [place] [id number] HealthcareUPPER RESPIRATORY CULTURELab Director: Codey Sibley PhD, Phone: [phone] Health SouthParkNo Panel Informationon 04-64-8091Yyqz of biopsy: punch Informed consent: discussed and [...] used: 2 Specimen sent for: H&E Photo [facility] Cervical spine WO contraston 44-32-20[place] [address] Magnetic Resonance Report Signed Patient: MARILIA VERA MR#: [id number] : 1990 Acct:[id number] Age/Sex: 33 / F ADM Date: 02/24/24 Loc: MRI Attending Dr: Donavan Garcia M.D. Ordering Physician: Donavan Garcia M.D. Date of Service: 02/24/24 Procedure(s): MR cervical spine wo con Accession Number(s): [id number] cc: Ariane Wells SHELL SIEVE OPERATOR; Donavan Garcia M.D. [place] [address] Patient Name: MARILIA VERA MRN: [id number] date: 1990 Sex: F Assigned Patient Location: MRI Current Patient Location: Accession/Order Number: [id number] Exam Date: 02/24/2024 15:40 Report Date: 02/25/2024 [...] POSADA M.D. Signed By: 02/25/248 DD/ TD/TT: Rubber Compounder Formulator:ANNABELHRadiology, Radiologist, - 02/25/2024 [place] [address] Magnetic Resonance Report Signed Patient: MARILIA VERA MR#: [id number] : 1990 Acct:[id number] Age/Sex: 33 / F ADM Date: 02/24/24 Loc: MRI Attending Dr: Donavan Garcia M.D. Ordering Physician: Donavan Garcia M.D. Date of Service: 02/24/24 Procedure(s): MR cervical spine wo con Accession Number(s): [id number] cc: Ariane Wells SHELL SIEVE OPERATOR; Donavan Garcia M.D. [address] [place] [id number] Patient Name: MARILIA VERA MRN: [id number] date: 1990 Sex: F Assigned Patient Location: MRI Current Patient Location: Accession/Order Number: [id number] Exam Date: 02/24/2024 15:40 Report Date: 02/25/2024 [...] POSADA M.D. Signed By: 02/25/248 DD/ TD/TT: Rubber Compounder Formulator: DELANEY Driveriology Study observation (narrative)DELANEY [facility] Cervical spine WO contrastOrdered By: Radiologist Radiology on 23-33-4164[facility] Work Phone: Formson [phone] [id number]#1.00[facility] HospitalConsent for Treatmenton 72-38-9349Wdpnrjb for Treatment [id number]#1.00[facility] HospitalDischarge Instructionson 88-51-0040Wchkwsump Instructions [id number]#1.00[facility] Clinical Summaryon 62-94-0129KV Clinical Summary [place] [id number] ED Clinical Summary Person Information Name: MARILIA VERA [facility] Age: 33 Years : 1990 Sex: Female Language: Saudi Arabian PCP: ARIANE WELLS CNP Marital Status: Visit [...] 11/27/2023 15:37:23 11/27/2023 15:37:23 11/27/2023 15:37:23 ADDRESS: [address] [place] [phone] PHYS DOC NOTES: MEDICAL INFORMATION: Prescriptions Given: [facility], [address] [place], [place] [id number], [phone] methocarbamol (Robaxin-750 oral tablet) 2 Tablets By [...] Pain Follow up: With: Address: When: Georgi Kentrell [address] [place], [place] [address] JDF ([employer] In 3 days 11/30/2023 DIAGNOSIS: Pain in shoulderNormalFisher Larry Medical CenterED Note-Physicianon 11-27-2023 ED Note-PhysicianBasic Information Time Seen: Theresa OCONNELL, Steven 11/27/2023 13:15 Chief Complaint patient presents with [...] day(s), # 18 tab(s), Refills(s) 0, Pharmacy: [facility], 160, cm, 11/27/23 12:59:00 EDT, Height/Length Dosing, 114.1, kg, 11/27/23 12:59:00 EDT, Weight Dosing naproxen, 500 mg = 1 tab(s), Oral, BID, PRN for pain, # 20 tab(s), Refills(s) 0, Pharmacy: [facility], 160, cm, 11/27/23 12:59:00 EDT, Height/Length [...] Pfeiffer In 3 days 11/30/2023 EDT [address] [place] [address]- JDF (1) Additional Instructions: Patient Education Shoulder Pain [...] made to ensure accuracy, however, inadvertently computerized electrician second mistakes may be present. Appropriate healthcare PPE [...] R KwikPen (Concentrated) Roma (more content not included)...[facility] County Health CenterComment on above:Result Comment: Electronically Signed By: Theresa OCONNELL, Steven\.br\Date and Time Signed: 11/26/2414:40 EDT\.br\Electronically Co-Signed By: Riky Le DO.br\Date and Time Co-Signed: 11/26/2416:17 EDTED Patient Education Noteon 22-15-4350ZZ Patient Education NoteOrthopedics Shoulder Pain Many things [...] strengthen the arm. General instructions ? Take kvhq-fuo-hgxzhhh and prescription medicines only as told by [...] Reviewed: 05/03/2022 Elsevier Patient Education ? 2022 [employer].[facility] ED Patient Summaryon 33-24-9003JM Patient Summary [address] [address] Patient Discharge Instructions Person Information Name: MARILIA VERA Age: 33 Years Arrival Date: 11/27/2023 12:52:48 Discharge Diagnosis: Pain in shoulder Primary Care Physician: ARIANE WELLS CNP Provider Information Primary Provider: Riky Le DO Advanced Senior Business Development Analyst:Steven Cardenas PA-C The exam and treatment you received in the Emergency Department were for an urgent problem and are not intended as complete care. It is important that you follow up with a doctor, nurse practitioner,or physician?s senior office assistant for ongoing care. If your symptoms become worse or you do not improve as expected and you are unable to reach your usual health care provider, you should return to the Emergency Department. We are available 24 hours a day. VERAMARILIA Danielson has been given the following list of patient education materials, prescriptions and follow-up instructions: Follow-up Instructions: With: Address: When: Georgi Pfeiffer [address] [place], [place] [address] Business (1) In 3 days 11/30/2023 In the event that this physician does not participate in your insurance network, please consult with your insurance company to find a nearby participating provider. Patient Education Materials: Shoulder Pain A MESSAGE TO ALL PATIENTS REGARDING OPIOIDS PRESCRIPTION OPIOIDS: WHAT YOU NEED TO KNOW Prescription opioids can be used to help relieve oevbuhdb-be-grtqga pain and are often prescribed following a [...] be struggling with addiction, tell your health healthcare marketer and ask for guidance or call [facility]?S National Helpline at 1-046-350-PRRP. a Source: [facility] (more content not included)...[facility] Health CenterFormson 51-49-2591Dvzna [id number]#1.00TIFFNoMercy Health Clermont HospitalXR Shoulder Complete Righton 12-74-7845WY Shoulder Complete RightExam Date/Time: 11/27/2023 13:33 EDT [...] MARTA Technologist: EDGAR Technical Comments Radiation Dose: Kasharonda in mGy = na DAP = naNorCleveland Clinic Akron General Lodi HospitalCB AUTO DIFFon 43-62-3302WDIZ #0.1 103/ulNormal0.0-0.1The [facility] [place] [facility] HospitalComment on above:Performed By: #### PREGU #### [facility] [place] [facility] [address] [place] [address] Dr. Jaz BarajasBasophils/100 WBC (Bld)0.8 %Normal0.2-2.0The [facility] [place] [facility] Comment on above:Performed By: #### PREGU #### [facility] [place] [facility] [address] [place] [address] Dr. Jaz Mahoney #0.2 103/ulNormal0.0-0.7The [facility] [place] [facility] HospitalComment on above: Performed By: #### PREGU #### [facility] [place] [facility] [address] [place] [address] Dr. Jaz Alamoosinophils/100 WBC (Bld)2.1 %Normal0.9-7.0The [facility] [place] [facility] Comment on above:Performed By: #### PREGU #### [facility] [place] [facility] [address] [place] [address] Dr. Jaz Alamorythrocyte distribution width (RBC) [Ratio]13.0 %Pbwcgf78.0-15.0 The [facility] [place] [facility] HospitalComment on above:Performed By: #### PREGU #### [facility] [place] [facility] [address] [place] [address] Dr. Jaz BarajasHematocrit (Bld) [Volume fraction]41.2 %Wdjthq41.0-48.0The [facility] [place] [facility] HospitalComment on above:Performed By: #### PREGU #### [facility] [place] [facility] [address] [place] [address] Dr. Jaz BarajasHemoglobin (Bld) [Mass/Vol]13.7 g/qNRvkksb19.0-16.0The [facility] [place] [facility] HospitalComment on above:Performed By: #### PREGU #### [facility] [place] [facility] [address] [place] [address] Dr. Jaz Mak #0.02 10e3/ulNormal0.00-0.03The [facility] [place] [facility] HospitalComment on above:Performed By: #### PREGU #### [facility] [place] [facility] [address] [place] [address] Dr. Jaz Mak %0.2 %Normal0.0-0.5The [facility] [place] [facility] HospitalComment on above: Performed By: #### PREGU #### [facility] [place] [facility] [address] [place] [address] Dr. Jaz Osobrn #3.3 103/ulNormal1.2-3.8The [facility] [place] [facility] HospitalComment on above:Performed By: #### PREGU #### [facility] [place] [facility] [address] [place] [address] Dr. Jaz Carrillohocytes/100 WBC (Bld)34.8 %Ahcopp60.5-60.0The [facility] [place] [facility] HospitalComdeckerville community hospital on above:Performed By: #### PREGU #### [facility] [place] [facility] [address] [place] [address] Dr. Jaz ValverdeUAL DIFF REQNONormalThe [facility] [place] [facility] HospitalComment on above: Performed By: #### PREGU #### [facility] [place] [facility] [address] [place] [address] Dr. Jaz Dc (RBC) [Entitic mass]26.6 pgCritically low26.7-34.0The [facility] on above:Performed By: #### PREGU #### [facility] [place] [facility] [address] [place] [address] Dr. Jaz Dc (RBC) [Mass/Vol]33.3 g/vHHqflfn90.9-35.2The [facility] [place] [facility] HospitalComment on above:Performed By: #### PREGU #### [facility] [place] [facility] [address] [place] [address] Dr. Jaz Dc (RBC) [Entitic vol]79.8 fLCritically low81.0-99.0The [facility] [place] [facility] HospitalComdeckerville community hospital on above:Performed By: #### PREGU #### [facility] [place] [facility] [address] [place] [address] Dr. Jaz James #0.7 103/ulNormal0.3-0.8The [facility] [place] [facility] HospitalComment on above:Performed By: #### PREGU #### [facility] [place] [facility] [address] [place] [address] [address] Jaz BarajasMonocytes/100 WBC (Bld)7.3 %Normal1.7-12.0The [facility] [place] [facility] Comment on above:Performed By: #### PREGU #### [facility] [place] [facility] [address] [place] [address] Dr. Jaz CantrellUT #5.3 103/ulNormal1.4-6.5The [facility] [place] [facility] HospitalComment on above:Performed By: #### PREGU #### [facility] [place] [facility] [address] [place] [address] Dr. Jaz Cantrellutrophils/100 WBC (Bld)54.8 %Pzyucl18.0-75.0The [facility] [place] [facility] HospitalComment on above:Performed By: #### PREGU #### [facility] [place] [facility] [address] [place] [address] Dr. Jaz BarajasPlatelet mean volume (Bld) [Entitic vol]10.7 fLNormal9.5-13.5The [facility] [place] [facility] HospitalComment on above:Performed By: #### PREGU #### [facility] [place] [facility] [address] [place] [address] Dr. Jaz BarajasPLT284 103/pfBmxxzn179-099Tas [facility] [place] [facility] HospitalComment on above: Performed By: #### PREGU #### [facility] [place] [facility] [address] [place] [address] Dr. Jaz BarajasRBC5.16 106/ulNormal4.20-5.40The [facility] [place] [facility] HospitalComment on above:Performed By: #### PREGU #### [facility] [place] [facility] [address] [place] [address] Dr. Jaz BarajasWBC9.6 103/ulNormal4.0-11.0The [facility] [place] [facility] HospitalComdeckerville community hospital on above: Performed By: #### PREGU #### [facility] [place] [facility] [address] [place] [address] Dr. Jaz Awad T4on 98-82-7916Jstm T4 [Mass/Vol]1.10 ng/dLNormal0.76-1.46 The [facility] [place] [facility] HospitalComment on above:Performed By: #### PROGLCM #### [facility] [place] [facility] [address] [place], [place] [address] Dr. Jaz MckeonID PROFILEon 64-18-0522WPDW-HDL RATIO NORMSParma Community General HospitalComment on above:Result Comment: 3.3 - 4.4 LOW RISK 4.4 - 7.1 AVERAGE RISK 7.1 - 11.0 MODERATE RISK >11.0 HIGH RISKPerformed By: #### LIPID, TSH, CMP ####[facility] [place] [facility] [address] [place] [address]Dr. Yilan ChangCholesterol [Mass/Vol]168 mg/dLNormal<=200The [facility] [place] [facility] HospitalComment on above:Performed By: #### LIPID, TSH, CMP ####[facility] [place] [facility] [address] [place] [address]Dr. Jaz Barajas Cholesterol in HDL [Mass/Vol]32 mg/dLCritically ert00-84MjrCincinnati Va Medical Center Comment on above:Performed By: #### LIPID, TSH, CMP ####[facility] [place] [facility] [address] [place] [address]Dr. Jaz ChangCholesterol in LDL [Mass/Vol]121.8 mg/dLWadsworth-Rittman HospitalComment on above:Performed By: #### LIPID, TSH, CMP ####[facility] [place] [facility] Tbsl[address]zuaa[address] [place] [address]Dr. Jaz BarajasCholesterol.total/Cholesterol in HDL [Mass ratio]5.3 {ratio}NormalCincinnati Va Medical CenterComment on above:Performed By: #### LIPID, TSH, CMP ####[facility] [place] [facility] Ftxlmsfvbh[address] [place] [address]Dr. Yilan ChangHDL NORMAL> or = 60 mg/dl - LOW CARDIOVASCULAR RISK <40 mg/dl - HIGH CARDIOVASCULAR RISKNoBellevue HospitalComment on above:Performed By: #### LIPID, TSH, CMP ####[facility] [place] [facility] [address] [place] [address]Dr. Yilan ChangLDL CALC NORMALSEE BELOWWadsworth-Rittman HospitalComment on above:Result Comment: <100 mg/dl OPTIMAL 100 - 129 mg/dl NEAR OR ABOVE OPTIMAL 130 - 159 mg/dl BORDERLINE HIGH 160 - 189 mg/dl HIGH >190 mg/dl VERY HIGHPerformed By: #### LIPID, TSH, CMP ####[facility] [place] [facility] [address]rm[address] [place] [address]Dr. Jaz BarajasTriglyceride [Mass/Vol]71 mg/dLNormal<=150The [facility] [place] [facility] HospitalComment on above:Performed By: #### LIPID, TSH, CMP ####[facility] [place] [facility] Rwzonxttvp[address] [place] [address]Dr. Jaz BarajasVLDL CALC14.2 mg/dLWadsworth-Rittman HospitalComment on above:Performed By: #### LIPID, TSH, CMP ####[facility] [place] [facility] [address]usjj[address] [place] [address]Dr. Jaz VillarROALBUMIN, RAND URon 05-16-1359tUBO<1.3Normal<=30.0 The [facility] [place] [facility] HospitalComment on above:Performed By: #### PREGU #### [facility] [place] [facility] [address] [place] [address] [address] Jaz De La Cruz 14(COMP METB)on 94-67-3016Oxogepx [Mass/Vol]3.7 g/dLNormal 3.4-5.0C[facility]innati Va Medical CenterComment on above:Performed By: #### LIPID, TSH, CMP ####[facility] [place] [facility] Xciyivtpxv39[address] [place] [address]Dr. Jaz BarajasAlbumin/Globulin [Mass ratio]0.8 {ratio}NormalCincinnati Va Medical Center Comment on above:Performed By: #### LIPID, TSH, CMP ####[facility] [place] [facility] Xpiqvxnimr18[address] [place] [address]DrPratibha BarajasALP [Catalytic activity/Vol]90 U/ELbltdq36-117CzsCincinnati Va Medical CenterComment on above:Performed By: #### LIPID, TSH, CMP ####[facility] [place] [facility] Vymnpsedmt[address] [place] [address]Dr. Yilan ChangALT [Catalytic activity/Vol]106 U/L Critically qcve00-10Yrt [facility] [place] [facility] HospitalComment on above:Performed By: #### LIPID, TSH, CMP ####[facility] [place] [facility] Gawrbitsxd[address] [place] [address]Dr. Yilan ChangAnion gap [Moles/Vol]12.5 mmol/LNormalThe [facility] [place] [facility] HospitalComment on above:Performed By: #### LIPID, TSH, CMP ####[facility] [place] [facility] Lcxaimmydc26[address] [place] [address]Dr. Yilan ChangAST [Catalytic activity/Vol]43 U/LCritically sxyq87-01Wpv [facility] [place] [facility] HospitalComment on above:Performed By: #### LIPID, TSH, CMP ####[facility] [place] [facility] [address]es[address] [place], [place] [address]Dr. Yilan ChangBilirubin [Mass/Vol]0.4 mg/dL Normal0.2-1.0The [facility] [place] [facility] HospitalComment on above:Performed By: #### LIPID, TSH, CMP ####[facility] [place] [facility] [address] [place], [place] [address]Dr. Yilan ChangCalcium [Mass/Vol]9.0 mg/dLNormal8.5-10.1The [facility] [place] [facility] HospitalComment on above:Performed By: #### LIPID, TSH, CMP ####[facility] [place] [facility] [address]mjwabyl[address] [place] [address]Dr. Yilan Barajas Chloride [Moles/Vol]104 mmol/IGscepa70-740Dtx [facility] [place] [facility] HospitalComment on above: Performed By: #### LIPID, TSH, CMP ####[facility] [place] [facility] Qucmzjkeed13[address] [place] [address]Dr. Yilan ChangCO2 [Moles/Vol]25.8 mmol/LNormal 21.0-32.0The [facility] [place] [facility] HospitalComment on above:Performed By: #### LIPID, TSH, CMP ####[facility] [place] [facility] Ocvyrjrksv[address] [place] [address]Dr. Yilan ChangCreatinine [Mass/Vol]0.76 mg/dLNormal0.55-1.02The [facility] [place] [facility] Comment on above:Performed By: #### LIPID, TSH, CMP ####[facility] [place] [facility] Fzwqfcppbb5[address] [place] [address]Dr. Yilan ChangEGFR-AF LEBANESE>60Normal>=60The [facility] [place] [facility] HospitalComment on above:Performed By: #### LIPID, TSH, CMP ####[facility] [place] [facility] Onfqjzjxpj9[address] [place] [address]Dr. Yilan ChangEGFR-NON AF LEBANESE>60Normal>=60The [facility] [place] [facility] Comment on above:Performed By: #### LIPID, TSH, CMP ####[facility] [place] [facility] [address]kw[address] [place], [place] [address]Dr. Yilan ChangGlobulin (S) [Mass/Vol]4.4 g/dLNormalThe [facility] [place] [facility] HospitalComment on above:Performed By: #### LIPID, TSH, CMP ####[facility] [place] [facility] Fqjipypbni[address] [place], [place] [address]Dr. Yilan ChangGlucose [Mass/Vol]228 mg/dLCritically ehxt39-947Mar [facility] [place] [facility] HospitalComment on above:Performed By: #### LIPID, TSH, CMP ####[facility] [place] [facility] [address]arhqktx[address] [place], [place] [address]Dr. Yilan ChangPotassium [Moles/Vol]4.3 mmol/LNormal3.5-5.1[facility] Comment on above:Performed By: #### LIPID, TSH, CMP ####[facility] [place] [facility] Rtrictsyjy[address] [place], [place] [address]Dr. Yilan ChangProtein [Mass/Vol]8.1 g/dLNormal6.4-8.2[facility] Medical CenterComment on above:Performed By: #### LIPID, TSH, CMP ####[facility] [place] [facility] X[address]dfpazdsi[address] [place], [place] [address]Dr. Yilan ChangSodium [Moles/Vol]138 mmol/LNormal 136-145The [facility] Community Hospitalment on above:Performed By: #### LIPID, TSH, CMP ####[facility] [place] [facility] [address]kfdkgyc[address] [place], [place] [address]Dr. Yilan ChangUrea nitrogen [Mass/Vol]21.0 mg/dLCritically high7.0-18.0[facility] CenterComment on above:Performed By: #### LIPID, TSH, CMP ####[facility] [place] [facility] Wayfqdvzqy[address] [place], [place] [address]Dr. Hannahlan ChangUrea nitrogen/Creatinine [Mass ratio]27.6 mg/mgNormalThe [facility] [place] [facility] HospitalComment on above:Performed By: #### LIPID, TSH, CMP ####[facility] [place] [facility] Omjopwoajs[address] [place], [place] [address]Dr. Hannahlan ChangTSHon 68-27-0687MDF4.602 uIU/mLNormal0.358-3.740The [facility] [place] [facility] HospitalComment on above:Performed By: #### LIPID, TSH, CMP ####[facility] [place] [facility] [address]krkrjmst[address] [place], [place] [address]Dr. Jaz ChangUA RANDOM W/MICROSCOPICon 00-45-4817JKDBXOYAUTRF SEEN NormalNONE SEENCincinnati Va Medical CenterComment on above:Performed By: #### UAMIC ####[facility] [place] [facility] [address]xxrdmri[address] [place], [place] [address]Dr. Jaz ChangBilirubin Ql (U)NegativeNormalNEGATIVECincinnati Va Medical CenterComment on above:Performed By: #### UAMIC ####[facility] [place] [facility] [address]wszblehh[address] [place], [place] [address]Dr. Jaz ChangCASTNONE SEENNormalNONE SEENCincinnati Va Medical CenterComment on above:Performed By: #### UAMIC ####[facility] [place] [facility] [address]bsakhojd[address] [place], [place] [address]Dr. Jaz ChangClarity (U) CLEARNormalCLEARCincinnati Va Medical CenterComment on above:Performed By: #### UAMIC ####[facility] [place] [facility] [address]masroexfz[address] [place], [place] [address]Dr. Jaz ChangColor (U)LT. YELLOWNormalYELLOWCincinnati Va Medical CenterComment on above: Performed By: #### UAMIC ####[facility] [place] [facility] [address]mpeszokub[address] [place], [place] [address]Dr. Jaz ChangCrystals LM Nom (Urine sed)NONE SEEN NormalNONE SEENCincinnati Va Medical CenterComment on above:Performed By: #### UAMIC ####[facility] [place] [facility] R[address]pykusvm[address] [place], [place] [address]Dr. Yilan ChangEpithelial cells LM Ql (Urine sed)RARENormalNONE SEEN /RAREThe [place] HospitalComment on above:Performed By: #### UAMIC ####[facility] [place] [facility] Y[address]wsrufopa[address] [place], [place] [address]Dr. Yilan ChangGlucose Ql (U) >1000AbnormalNEGATIVEThe [facility] [place] [facility] HospitalComment on above:Performed By: #### UAMIC ####[facility] [place] [facility] [address]oslktwtx[address] [place], [place] [address]Dr. Yilan ChangHemoglobin Ql (U)NegativeNormalNEGATIVEThe [facility] [place] [facility] Comment on above:Performed By: #### UAMIC ####[facility] [place] [facility] Xanxufroal[address] [place], [place] [address]Dr. Yilan ChangKetones Ql (U)NegativeNormal NEGATIVECincinnati Va Medical CenterComment on above:Performed By: #### UAMIC ####[facility] [place] [facility] [address]ymbzovvf[address] [place], [place] [address]Dr. Yilan ChangLEUKOCYTESNegativeNormalNEGATIVECincinnati Va Medical CenterComment on above:Performed By: #### UAMIC ####[facility] [place] [facility] K[address]irhvuygl[address] [place], [place] [address]Dr. Yilan ChangMUCOUSNONE SEENNormalNONE SEENCincinnati Va Medical CenterComment on above:Performed By: #### UAMIC ####[facility] [place] [facility] Zysbswkkhd[address] [place], [place] [address]Dr. Yilan ChangNitrite Ql (U) NegativeNormalNEGATIVECincinnati Va Medical CenterComment on above:Performed By: #### UAMIC ####[facility] [place] [facility] Leqlroteot[address] [place], [place] [address]Dr. Yilan ChangpH (U)6.0 [pH]Normal5-9C[facility] Medical CenterComment on above:Performed By: #### UAMIC ####[facility] [place] [facility] [address]tklal[address] [place] [address]Dr. Jaz BarajasRBCNONE SEENAbnormal0-2The [facility] [place] [facility] HospitalComment on above:Performed By: #### UAMIC ####[facility] [place] [facility] [address] [place] [address]Dr. Jaz BarajasSPEC GRAVITY 1.089Pzuvzt2.005-<=1.025Cincinnati Va Medical CenterComment on above:Performed By: #### UAMIC ####[facility] [place] [facility] [address] [place], [place] [address]Dr. Jaz BarajasUA PROTEINNegativeNormalNEGATIVE/ TRACECincinnati Va Medical Center Comment on above:Performed By: #### UAMIC ####[facility] [place] [facility] Exhqzw[address] [place], [place] [address]Dr. Jaz BarajasUrobilinogen Qn (U)0.2 {Oxana'U}/dLNormal0.2 - 1.0The [facility] [place] [facility] HospitalComment on above:Performed By: #### UAMIC ####[facility] [place] [facility] L[address]zypsq[address] [place], [place] [address]Dr. Jaz ChangWBC0-2AbnormalNONE SEENCincinnati Va Medical CenterComment on above:Performed By: #### UAMIC ####[facility] [place] [facility] R[address]of[address]vos[address] [place], [place] [address]Dr. Jaz BarajasVITAMIN D 25 OHon [id number] D 25-OH 30.9 ng/mLNMercy Health Lorain HospitalComment on above:Performed By: #### PROGLCM #### [facility] [place] [facility] [address] [place] [address] Dr. Jaz Baxter RANGESSEE Fort Hamilton HospitalComment on above: Result Comment: <20 ng/mL Vit D deficient 20 - <30 ng/mL Vit D insufficient 30 - 100 ng/mL Vit D sufficient >100 ng/mL Potential ToxicityPerformed By: #### PROGLCM #### [facility] [place] [facility] [address] [place] [address] Dr. Jaz Najera AUTO DIFFon [id number] #0.1 103/ulNormal0.0-0.1The [facility] [place] [facility] HospitalComment on above:Performed By: #### PROGLCM #### [facility] [place] [facility] [address] [place] [address] Dr. Jaz BarajasBasophils/100 WBC (Bld)0.6 %Normal0.2-2.0The [facility] [place] [facility] Comment on above:Performed By: #### PROGLCM #### [facility] [place] [facility] [address] [place] [address] Dr. Jaz Mahoney #0.2 103/ulNormal0.0-0.7The [facility] [place] [facility] HospitalComment on above: Performed By: #### PROGLCM #### [facility] [place] [facility] [address] [place] [address] Dr. Jaz Alamoosinophils/100 WBC (Bld)2.0 %Normal0.9-7.0The [facility] [place] [facility] Comment on above:Performed By: #### PROGLCM #### [facility] [place] [facility] [address] [place] [address] Dr. Jaz Alamorythrocyte distribution width (RBC) [Ratio]13.3 %Xqsebw49.0-15.0 The [facility] [place] [facility] HospitalComment on above:Performed By: #### PROGLCM #### [facility] [place] [facility] [address] [place] [address] Dr. Jaz BarajasHematocrit (Bld) [Volume fraction]40.4 %Sfgbww71.0-48.0The [facility] [place] [facility] HospitalComment on above:Performed By: #### PROGLCM #### [facility] [place] [facility] [address] [place] [address] Dr. Jaz BarajasHemoglobin (Bld) [Mass/Vol]13.5 g/wWWqmvih27.0-16.0The [facility] [place] [facility] HospitalComment on above:Performed By: #### PROGLCM #### [facility] [place] [facility] [address] [place] [address] Dr. Jaz Mak #0.03 10e3/ulNormal0.00-0.03The [facility] [place] [facility] HospitalComment on above:Performed By: #### PROGLCM #### [facility] [place] [facility] [address] [address] [address] Jaz Mak %0.3 %Normal0.0-0.5The [facility] [place] [facility] HospitalComment on above: Performed By: #### PROGLCM #### [facility] [place] [facility] [address] [place] [address] Dr. Jaz Osborn #3.3 103/ulNormal1.2-3.8The [facility] [place] [facility] HospitalComment on above:Performed By: #### PROGLCM #### [facility] [place] [facility] [address] [place] [address] Dr. Jaz Carrillohocytes/100 WBC (Bld)30.7 %Hkzmsa78.5-60.0The [facility] [place] [facility] HospitalComment on above:Performed By: #### PROGLCM #### [facility] [place] [facility] [address] [place] [address] Dr. Jaz ValverdeUAL DIFF REQNONormalThe [facility] [place] [facility] HospitalComment on above: Performed By: #### PROGLCM #### [facility] [place] [facility] [address] [place] [address] Dr. Jaz Dc (RBC) [Entitic mass]26.6 pgCritically low26.7-34.0The [facility] on above:Performed By: #### PROGLCM #### [facility] [place] [facility] [address] [place] [address] Dr. Jaz Dc (RBC) [Mass/Vol]33.4 g/iUEkynwb76.9-35.2The [facility] [place] [facility] HospitalComment on above:Performed By: #### PROGLCM #### [facility] [place] [facility] [address] [place] [address] Dr. Jaz Dc (RBC) [Entitic vol]79.7 fLCritically low81.0-99.0The [facility] [place] [facility] HospitalComdeckerville community hospital on above:Performed By: #### PROGLCM #### [facility] [place] [facility] [address] [place] [address] Dr. Jaz James #0.8 103/ulNormal0.3-0.8The Karl HospitalComment on above:Performed By: #### PROGLCM #### [facility] [place] [facility] [address] [place] [address] Dr. Jaz Dejesusocytes/100 WBC (Bld)7.4 %Normal1.7-12.0The [facility] [place] [facility] Comment on above:Performed By: #### PROGLCM #### [facility] [place] [facility] [address] [place] [address] Dr. Jaz CantrellUT #6.3 103/ulNormal1.4-6.5The [facility] [place] [facility] HospitalComment on above:Performed By: #### PROGLCM #### [facility] [place] [facility] [address] [place] [address] Dr. Jaz Cantrellutrophils/100 WBC (Bld)59.0 %Ypwncg32.0-75.0The [facility] [place] [facility] HospitalComment on above:Performed By: #### PROGLCM #### [facility] [place] [facility] [address] [place] [address] Dr. Jaz Huberlet mean volume (Bld) [Entitic vol]10.7 fLNormal9.5-13.5The [facility] [place] [facility] HospitalComment on above:Performed By: #### PROGLCM #### [facility] [place] [facility] [address] [place] [address] Dr. Jaz BarajasPLT326 103/ifBizzes573-780Nhn [facility] [place] [facility] HospitalComment on above: Performed By: #### PROGLCM #### [facility] [place] [facility] [address] [place] [address] Dr. Jaz BarajasRBC5.07 106/ulNormal4.20-5.40The [facility] [place] [facility] HospitalComment on above:Performed By: #### PROGLCM #### [facility] [place] [facility] [address] [place] [address] Dr. Jaz BarajasWBC10.7 103/ulNormal4.0-11.0The [facility] [place] [facility] HospitalComment on above:Performed By: #### PROGLCM #### [facility] [place] [facility] [address] [place] [address] Dr. Jaz BarajasCT ABD/PELV W CONon 32-90-1543QN ABD/PELV W CONEXAMINATION: CT ABD/PELV W CON [...] Electronically authenticated by: GERALDINE LAZAR Date: 2022-11-15 09:13NormOhioHealth [facility] URINE PROFILEon 04-49-5714Vuztcxpov Ql (U)NegativeNormal NEGATIVECincinnati Va Medical CenterComment on above:Performed By: #### PROGLCM #### [facility] [place] [facility] [address] [address] [address] Jaz Ospina (U)CLEARNormalCLEARCincinnati Va Medical CenterComment on above: Performed By: #### PROGLCM #### [facility] [place] [facility] [address] [address] [address] Jaz Schwartz (U)LT. YELLOWNormalYELLOWThe [facility] [place] [facility] HospitalComment on above:Performed By: #### PROGLCM #### [facility] [place] [facility] [address] [address] [address] Jaz Larsen micrscopic examination will be performed if indicated. NormalCincinnati Va Medical CenterComment on above:Performed By: #### PROGLCM #### [facility] [place] [facility] [address] [address] [address] Jaz BarajasGlucose Ql (U)1000 mg/dlAbnormalNEGATIVECincinnati Va Medical Center Comment on above:Performed By: #### PROGLCM #### [facility] [place] [facility] [address] [address] [address] Jaz BarajasHemoglobin Ql (U)NegativeNormalNEGATIVECincinnati Va Medical Center Comment on above:Performed By: #### PROGLCM #### [facility] [place] [facility] [address] [place] [address] Dr. Jaz BarajasKetones Ql (U)NegativeNormalNEGATIVECincinnati Va Medical CenterComment on above:Performed By: #### PROGLCM #### [facility] [place] [facility] [address] [address] [address] Jaz BarajasLEUKOCYTESNegativeNormalNEGATIVECincinnati Va Medical CenterComment on above:Performed By: #### PROGLCM #### [facility] [place] [facility] [address] [address] [address] Jaz BarajasNitrite Ql (U)NegativeNormalNEGATIVECincinnati Va Medical CenterComment on above:Performed By: #### PROGLCM #### [facility] [place] [facility] [address] [address] [address] Jaz BarajaspH (U)6.0 [pH]Normal5-9C[facility] Va Medical CenterComment on above: Performed By: #### PROGLCM #### [facility] [place] [facility] [address] [address] [address] Jaz BarajasSPEC GRAVITY1.162Zfyqvi7.005-<=1.025C[facility] Va Medical CenterComment on above:Performed By: #### PROGLCM #### [facility] [place] [facility] [address] [address] [address] Jaz BarajasUA PROTEINNegativeNormalNEGATIVE/ TRACECincinnati Va Medical Center Comment on above:Performed By: #### PROGLCM #### [facility] [place] [facility] [address] [address] [address] Jaz Prakash MICRO INDNOT INDICATEDNormalThe [facility] [place] [facility] HospitalComment on above:Performed By: #### PROGLCM #### [facility] [place] [facility] [address] [address] [address] Jaz BarajasUrobilinogen Qn (U)0.2 {Oxana'U}/dLNormal0.2 - 1.0The [facility] [place] [facility] HospitalComment on above:Performed By: #### PROGLCM #### [facility] [place] [facility] [address] [address] [address] Jaz BarajasLIPASEon 59-40-2513Ugigfq [Catalytic activity/Vol]73.0 U/LNormal 73.0-393.0The [facility] [place] [facility] HospitalComment on above:Performed By: #### PREGU #### [facility] [place] [facility] [address] [place] [address] Dr. Jaz BarajasPREGNANCY URon [id number], QUALNegativeNormalNEGATIVECincinnati Va Medical CenterComment on above:Performed By: #### ERUR, PREGU ####[facility] [place] [facility] [address] [place], [place] [address]Dr. Jaz BarajasPROF 14(COMP METB)on 71-19-0782Hesfrhj [Mass/Vol]3.6 g/dLNormal3.4-5.0The [facility] [place] [facility] HospitalComment on above:Performed By: #### PREGU #### [facility] [place] [facility] [address] [address] [address] Jaz BarajasAlbumin/Globulin [Mass ratio]0.9 {ratio}NormalThe [facility] [place] [facility] HospitalComment on above:Performed By: #### PREGU #### [facility] [place] [facility] [address] [place] [address] Dr. Jaz BeebeP [Catalytic activity/Vol]98 U/TOmzbvi70-761Uxq [facility] [place] [facility] HospitalComment on above:Performed By: #### PREGU #### [facility] [place] [facility] [address] [address] [address] Jaz BeebeT [Catalytic activity/Vol]138 U/LCritically bmdo91-34Kyl [facility] [place] [facility] HospitalComment on above:Performed By: #### PREGU #### [facility] [place] [facility] [address] [address] [address] Jaz BarajasAnion gap [Moles/Vol]13.4 mmol/LNormalCincinnati Va Medical Center Comment on above:Performed By: #### PREGU #### [facility] [place] [facility] [address] [address] [address] Jaz BarajasAST [Catalytic activity/Vol]61 U/LCritically ekrh66-08Ckb [facility] [place] [facility] HospitalComment on above:Performed By: #### PREGU #### [facility] [place] [facility] [address] [place] [address] Dr. Jaz BarajasBilirubin [Mass/Vol]0.2 mg/dLNormal0.2-1.0[facility] Comment on above:Performed By: #### PREGU #### [facility] [place] [facility] [address] [place] [address] Dr. Jaz BarajasCalcium [Mass/Vol]9.4 mg/dLNormal8.5-10.1The [facility] [place] [facility] Comment on above:Performed By: #### PREGU #### [facility] [place] [facility] [address] [address] [address] Jaz BarajasChloride [Moles/Vol]104 mmol/DMrcswz16-150Oqu [facility] [place] [facility] Comment on above:Performed By: #### PREGU #### [facility] [place] [facility] [address] [place] [address] Dr. Jaz BarajasCO2 [Moles/Vol]24.7 mmol/DRmoslx71.0-32.0The [facility] [place] [facility] Comment on above:Performed By: #### PREGU #### [facility] [place] [facility] [address] [address] [address] Jaz BarajasCreatinine [Mass/Vol]0.69 mg/dLNormal0.55-1.02The [facility] [place] [facility] HospitalComment on above:Performed By: #### PREGU #### [facility] [place] [facility] [address] [address] [address] Jaz AlamoGFR-AF LEBANESE>60Normal>=60The [facility] [place] [facility] HospitalComment on above:Performed By: #### PREGU #### [facility] [place] [facility] [address] [address] [address] Jaz AlamoGFR-NON AF LEBANESE>60Normal>=60The [facility] [place] [facility] HospitalComment on above:Performed By: #### PREGU #### [facility] [place] [facility] [address] [address] [address] Jaz BarajasGlobulin (S) [Mass/Vol]4.2 g/dLNormalThe [facility] [place] [facility] HospitalComment on above:Performed By: #### PREGU #### [facility] [place] [facility] [address] [place] [address] Dr. Jaz BarajasGlucose [Mass/Vol]339 mg/dLCritically xalh71-990Cyx [facility] [place] [facility] HospitalComment on above:Performed By: #### PREGU #### [facility] [place] [facility] [address] [place] [address] Dr. Jaz BarajasPotassium [Moles/Vol]4.1 mmol/LNormal3.5-5.1The [facility] [place] [facility] Comment on above:Performed By: #### PREGU #### [facility] [place] [facility] [address] [place] [address] Dr. Jaz BarajasProtein [Mass/Vol]7.8 g/dLNormal6.4-8.2The [facility] [place] [facility] Comment on above:Performed By: #### PREGU #### [facility] [place] [facility] [address] [place] [address] Dr. Jaz BraajasSodium [Moles/Vol]138 mmol/PYsbfiz013-704Srq [facility] [place] [facility] Comment on above:Performed By: #### PREGU #### [facility] [place] [facility] [address] [place] [address] Dr. Jaz BarajasUrea nitrogen [Mass/Vol]17.0 mg/dLNormal7.0-18.0The [facility] [place] [facility] HospitalComment on above:Performed By: #### PREGU #### [facility] [place] [facility] [address] [address] [address] Jaz Raza nitrogen/Creatinine [Mass ratio]24.6 mg/mgNormalThThe Jewish HospitalComment on above:Performed By: #### PREGU #### [facility] [place] [facility] [address] [place], [place] [address] Dr. Jaz BarajasCULTBRADLEY WOUNDon [id number] WOUNDCulture Observations: NO GROWTH OF ANAEROBES AT [...] Vancomycin 0.5 S F Tetracycline >=16 R FNormalCincinnati Va Medical CenterComment on above:Performed By: #### WOUNDCX ####[facility] [place] [facility] [address] [place], [place] [address]EqDr. Jaz BarajasCovid-19 PCR ([facility])on 84-06-8193NOFR-CoV-2 (COVID-19) RNA REANNA+probe Ql (Unsp spec)Not detectedNormalNOT DETECTEDCincinnati Va Medical Center Comment on above:Result Comment: This test is not yet approved or cleared by the [place] FDA. When there are no FDA-approved or cleared tests available, and other criteria are met, FDA can make tests available under an emergency access mechanism called an Emergency Use Authorization (EUA). The EUA for this test is supported by the [place] of Health and Human Service's (HHS's) declaration [...] consistent with SARS-CoV-2.Performed By: #### PROGLCM #### [facility] [place] [facility] [address] [place] [address] Dr. Jaz Guevara AND B AGon 74-18-5588CBUZIBLDSYEMZKindred Hospital Lima on above:Result Comment: Negative for Flu A protein angiten. Infection due to Flu A cannot be ruled out. FluA angiten in the sample may be below the detection limit of the test.Performed By: #### PROGLCM #### [facility] [place] [facility] [address] [place] [address] Dr. Jaz JeffriesUBNEGHSOPAL [facility] on above: Result Comment: Negative for Flu B protein antigen. Infection due to Flu B cannot be ruled out. FluB antigen in the sample may be below the detection limit of the test.Performed By: #### PROGLCM #### [facility] [place] [facility] [address] [place] [address] Dr. Jaz Knox A AGNegativeNormalNEGATIVE SEE COMMENTThe [facility] on above:Performed By: #### PROGLCM #### [facility] [place] [facility] [address] [place] [address] Dr. Jaz Charles AGNegativeNormalNEGATIVE SEE COMMENTCincinnati Va Medical CenterComdeckerville community hospital on above:Performed By: #### PROGLCM #### [facility] [place] [facility] [address] [place] [address] Dr. Jaz BarajasINTERNAL CONTROLSWithin Normal LimitsNormalWithin Normal Limits The [facility] [place] [facility] HospitalComdeckerville community hospital on above:Performed By: #### PROGLCM #### [facility] [place] [facility] [address] [place] [address] Dr. Jaz BarajasENCOMPASS [facility] GLUCOSEon 58-40-9120Lsttelk [Mass/Vol]310 mg/dL Critically elta32-405Unz [facility] [place] [facility] HospitalComment on above:Performed By: #### PROGLCM #### [facility] [place] [facility] [address] [place] [address] Dr. Jaz BarajasXR CHEST 1 Von [id number] CHEST 1 VEXAMINATION: XR CHEST 1 V HISTORY: Cough COMPARISON: 01/09/2022 chest x-ray TECHNIQUE: Portable chest FINDINGS: The lung parenchyma is free of consolidation or infiltrate. No pneumothorax or pleural effusion. The cardiac, mediastinal and hilar contours are normal. The visualized osseous structures exhibit no gross abnormality. IMPRESSION: Normal chest x-ray Electronically authenticated by: JOSE EDUARDO RHODES Date: 2022-08-18 15:33NormalThe [facility] [place] [facility] HospitalPREG HCG QUALon 06-35-3077UJVYZPVYW, QUALNegativeNormalNEGATIVE The [facility] [place] [facility] HospitalComment on above:Performed By: #### PREG ####[facility] [place] [facility] [address] [place], [place] [address]Dr. Jaz BarajasCBC AUTO DIFFon 73-06-3862ZOAG #0.1 103/ulNormal0.0-0.1The [facility] [place] [facility] HospitalComment on above:Performed By: #### CBC ####[facility] [place] [facility] [address] [place], [place] [address]Dr.Jaz ChangBasophils/100 WBC (Bld)0.6 %Normal 0.2-2.0The [facility] [place] [facility] HospitalComment on above:Performed By: #### CBC ####[facility] [place] [facility] [address] [place], [place] [address]Dr.Jaz ChangEO # 0.2 103/ulNormal0.0-0.7The [facility] [place] [facility] HospitalComment on above:Performed By: #### CBC ####[facility] [place] [facility] [address] [place], [place] [address]Dr. Jaz ChangEosinophils/100 WBC (Bld)1.5 %Normal0.9-7.0The [facility] [place] [facility] Comment on above:Performed By: #### CBC ####[facility] [place] [facility] [address] [place], [place] [address]Dr.Jaz ChangErythrocyte distribution width (RBC) [Ratio]12.6 %Rdzhuz70.0-15.0The [facility] [place] [facility] HospitalComment on above: Performed By: #### CBC ####[facility] [place] [facility] [address]rsdc[address] [place], [place] [address]Dr.Jaz BarajasHematocrit (Bld) [Volume fraction]38.7 % Ruajgi08.0-48.0The [facility] [place] [facility] HospitalComment on above:Performed By: #### CBC ####[facility] [place] [facility] [address] [place], [place] [address]Dr. Hannahisela ChangHemoglobin (Bld) [Mass/Vol]12.9 g/sMLqtwgm64.0-16.0The [facility] [place] [facility] HospitalComment on above:Performed By: #### CBC ####[facility] [place] [facility] [address] [place], [place] [address]Dr.Yilan ChangIG #0.02 10e3/ulNormal0.00-0.03The [facility] [place] [facility] HospitalComment on above:Performed By: #### CBC ####[facility] [place] [facility] [address] [place], [place] [address]Dr. Yilan ChangIG %0.2 %Normal0.0-0.5The [facility] [place] [facility] HospitalComment on above:Performed By: #### CBC ####[facility] [place] [facility] [address] [place], [place] [address]Dr.Yilan ChangLYMPH #3.5 103/ulNormal1.2-3.8The [facility] [place] [facility] Comment on above:Performed By: #### CBC ####[facility] [place] [facility] [address] [place], [place] [address]Dr.Hannahisela BarajasLymphocytes/100 WBC (Bld)34.4 %Kafdle39.5-60.0The [facility] [place] [facility] HospitalComment on above:Performed By: #### CBC ####[facility] [place] [facility] Uyr[address]usi[address] [place], [place] [address]Dr. Yilan ChangMANUAL DIFF REQNONormalThe [facility] [place] [facility] HospitalComment on above: Performed By: #### CBC ####[facility] [place] [facility] Y[address]zps[address]mt[address] [place], [place] [address]Dr.Jaz BaarjasMCH (RBC) [Entitic mass]27.2 pgNormal 26.7-34.0The [facility] [place] [facility] HospitalComment on above:Performed By: #### CBC ####[facility] [place] [facility] [address] [address]Dr. Jaz KarlMCHC (RBC) [Mass/Vol]33.3 g/uVOnzjjp57.9-35.2The [facility] [place] [facility] Comment on above:Performed By: #### CBC ####[facility] [place] [facility] [address] [address]Dr.Jaz KarlMCV (RBC) [Entitic vol]81.6 fL Dlveca93.0-99.0The [facility] [place] [facility] HospitalComment on above:Performed By: #### CBC ####[facility] [place] [facility] Rh[address]ftylt[address] [place], [place] [address]Dr. Jaz KarlMONO #0.7 103/ulNormal0.3-0.8The [facility] [place] [facility] HospitalComment on above: Performed By: #### CBC ####[facility] [place] [facility] [address]itdwavs[address] [place], [place] [address]Dr.Hannahisela BarajasMonocytes/100 WBC (Bld)7.0 %Normal 1.7-12.0The [facility] [place] [facility] HospitalComment on above:Performed By: #### CBC ####[facility] [place] [facility] [address]itsh[address] [place], [place] [address]Dr. Jaz BarajasNEUT #5.7 103/ulNormal1.4-6.5The [facility] [place] [facility] HospitalComment on above: Performed By: #### CBC ####[facility] [place] [facility] [address] [place], [place] [address]Dr.Jaz KarlNeutrophils/100 WBC (Bld)56.3 %Normal 43.0-75.0The [facility] [place] [facility] HospitalComment on above:Performed By: #### CBC ####[facility] [place] [facility] [address]lechusm[address] [place], [place] [address]Dr. Hannahisela BarajasPlatelet mean volume (Bld) [Entitic vol]11.0 fLNormal9.5-13.5The [facility] [place] [facility] HospitalComment on above:Performed By: #### CBC ####[facility] [place] [facility] [address] [place], [place] [address]Dr.Jaz BarajasPLT274 103/ul Simuit553-097Onm [facility] on above:Performed By: #### CBC ####[facility] [place] [facility] [address] [place], [place] [address]Rq. Jaz BarajasRBC4.74 106/ulNormal4.20-5.40The [facility] on above: Performed By: #### CBC ####[facility] [place] [facility] [address] [place], [place] [address]OzAnuja BarajasWBC10.0 103/ulNormal4.0-11.0The [facility] Hospitalment on above:Performed By: #### CBC ####[facility] [place] [facility] [address] [place], [place] [address]IvAnuja BarajasCovid-19 PCR (CVDTB)on 82-88-0276XUWO-CoV-2 (COVID-19) RNA REANNA+probe Ql (Unsp spec)Not detectedNormalNOT DETECTEDThe [place] on above:Result Comment: This test is not yet approved or cleared by the [place] FDA. When there are no FDA-approved or cleared tests available, and other criteria are met, FDA can make tests available under an emergency access mechanism called an Emergency Use Authorization (EUA). The EUA for this test is supported by the [place] of Health and Human Service's (HHS's) declaration [...] consistent with SARS-CoV-2.Performed By: #### PREGU #### [facility] [place] [facility] [address] [place], [place] [address] Dr. Jaz BarajasPROF CHEM 8 (BAS METB)on 39-89-2924Mkyqx gap [Moles/Vol]10.1 mmol/LNormalThe [facility] [place] HospitalComment on above:Performed By: #### PREGU #### [facility] [place] [facility] [address] [address] [address] Jaz BarajasCalcium [Mass/Vol]9.0 mg/dLNormal8.5-10.1The [facility] [place] [facility] Comment on above:Performed By: #### PREGU #### [facility] [place] [facility] [address] [address] [address] Jaz BarajasChloride [Moles/Vol]99 mmol/MFjzivg69-179Yht [facility] [place] [facility] Comment on above:Performed By: #### PREGU #### [facility] [place] [facility] [address] [address] [address] Jaz BarajasCO2 [Moles/Vol]29.1 mmol/YCsitob68.0-32.0The [facility] [place] [facility] Comment on above:Performed By: #### PREGU #### [facility] [place] [facility] [address] [address] [address] Jaz BarajasCreatinine [Mass/Vol]0.80 mg/dLNormal0.55-1.02[facility] CenterComment on above:Performed By: #### PREGU #### [facility] [place] [facility] [address] [address] [address] Jaz AlamoGFR-AF LEBANESE>60Normal>=60The [facility] [place] [facility] HospitalComment on above:Performed By: #### PREGU #### [facility] [place] [facility] [address] [address] [address] Jaz AlamoGFR-NON AF LEBANESE>60Normal>=60The [facility] [place] [facility] HospitalComment on above:Performed By: #### PREGU #### [facility] [place] [facility] [facility] [address] [address] [address] Jaz BarajasGlucose [Mass/Vol]217 mg/dLCritically ohue78-668Tmg [facility] HospitalComment on above:Performed By: #### PREGU #### [facility] [address] [address] [address] Jaz BarajasPotassium [Moles/Vol]4.2 mmol/LNormal3.5-5.1The [facility] Comment on above:Result Comment: specimen slightly hemolyzed may affect K+ resultPerformed By: #### PREGU #### [facility] [address] [address] [address] Jaz BarajasSodium [Moles/Vol]134 mmol/LCritically ddm471-385Dos [facility] HospitalComment on above:Performed By: #### PREGU #### [facility] [address] [address] [address] Jaz BarajasUrea nitrogen [Mass/Vol]11.0 mg/dLNormal7.0-18.0The [facility] HospitalComment on above:Performed By: #### PREGU #### [facility] [address] [address] [address] Jaz Raza nitrogen/Creatinine [Mass ratio]13.8 mg/mgNormalThe [facility] HospitalComment on above:Performed By: #### PREGU #### [facility] [address] [place] [address] Dr. Jaz BarajasCT ABD/PELV W CONon [id number] ABD/PELV W CONEXAMINATION: CT ABD/PELV W CON [...] Electronically authenticated by: JEYSON BLANTON Date: 2022-04-18 12:31[facility] URINE PROFILEon 51-91-6009Mprvlrsjn Ql (U)NegativeNormal NEGATIVECincinnati Va Medical CenterComment on above:Performed By: #### ERUR, PREGU ####[facility] [address] [place], [place] [address]Dr. Yilan ChangClarity (U)CLEARNormalCLEARCincinnati Va Medical CenterComment on above: Performed By: #### ERUR, PREGU ####[facility] [address] [place], [place] [address]Dr. Yilan ChangColor (U)LT. YELLOWNormalYELLOWCincinnati Va Medical CenterComment on above:Performed By: #### ERUR, PREGU ####[facility] [address] [place], [place] [address]Dr. Jaz RAMIREZAHDA micrscopic examination will be performed if indicated.NormalCherrington Hospital HospitalComment on above:Performed By: #### ERUR, PREGU ####[facility] Rtlchkwmp[address] [place], [place] [address]Dr. Yilan ChangGlucose Ql (U) 1000 mg/dlAbnormalNEGATIVECincinnati Va Medical CenterComment on above:Performed By: #### ERUR, PREGU ####[facility] [address] [place], [place] [address]Dr. Yilan ChangHemoglobin Ql (U)NegativeNormalNEGATIVECincinnati Va Medical CenterComment on above:Performed By: #### ERUR, PREGU ####[facility] Zoiplflbtw[address] [place], [place] [address]Dr. Yilan ChangKetones Ql (U) NegativeNormalNEGATIVEThe [facility] [place] HospitalComment on above:Performed By: #### ERUR, PREGU ####[facility] [address] [place], [place] [address]Dr. Jaz BarajasLEUKOCYTESNegativeNormalNEGATIVECherrington Hospital HospitalComment on above:Performed By: #### ERUR, PREGU ####[facility] Z[address]ry[address] [place], [place] [address]Dr. Jaz BarajasNitrite Ql (U)NegativeNormal NEGATIVEThe [place] HospitalComment on above:Performed By: #### ERUR, PREGU ####[facility] X[address]pub[address] [place], [place] [address]Dr. Jaz BarajaspH (U)6.5 [pH]Normal5-9The [place] HospitalComment on above: Performed By: #### ERUR, PREGU ####[facility] [address] [place], [place] [address]Dr. Jaz BarajasSPEC GRAVITY1.218Viwhyz9.005-<=1.025The [place] HospitalComment on above:Performed By: #### ERUR, PREGU ####[facility] Paygslwuix[address] [place], [place] [address]Dr. Jaz KarlUA PROTEINNegativeNormalNEGATIVE/ TRACEThe [place] HospitalComment on above: Performed By: #### ERUR, PREGU ####[facility] [address] [place], [place] [address]Dr. Hannahisela BarajasUR MICRO INDNOT INDICATEDNormalThe [place] HospitalComment on above:Performed By: #### ERUR, PREGU ####[facility] Wy[address]qff[address] [place], [place] [address]Dr. Hannahisela Barajas Urobilinogen Qn (U)0.2 {Oxana'U}/dLNormal0.2 - 1.0The [place] HospitalComment on above:Performed By: #### ERUR, PREGU ####[facility] [address] [place], [place] [address]Dr. Hannahlan ChangPREGNANCY URon 04-18-2022 , QUALNegativeNormalNEGATIVEThe [facility] HospitalComment on above: Performed By: #### ERUR, PREGU ####[facility] [address] [address]DrPratibha Barajas17-[place] PROGESTERONE, LC/MSon 04-05-2022 17-[place] Progesterone LCMS43 ng/dLNormalThe [facility] HospitalComment on above: Result Comment: Adult Female Follicular 15 - 70 Luteal 35 - 290Performed By: #### PROGLCM #### [facility] [address] [address] [address] Jaz BarajasANDROSTENEDINE LC/MSon 85-67-6627Eunddjxnerhwlik AADI404 ng/dL Zfazyt59-252Jmj [facility] HospitalComment on above:Result Comment: This test was developed and its performance characteristics determined by [facility]. It has not been cleared or approved by the Food and Drug Administration.Performed By: #### ANDROST #### [facility] [address] [place] [address] Dr. Jaz BarajasTESTOSTERONE, TOTALon 58-42-3245Wlkjuxiefmse [Mass/Vol]70 ng/dL Critically high8-60The [facility] HospitalComment on above:Performed By: #### TESTTOT ####[facility] [address] [address]Dr. Jaz BarajasPROF CHEM 8 (BAS METB)on 21-69-8939Klxsl gap [Moles/Vol]11.5 mmol/LNormalThe [facility] HospitalComment on above:Performed By: #### BMP ####[facility] [address] [id number]. Jaz BarajasCalcium [Mass/Vol]9.1 mg/dLNormal8.5-10.1The [facility] HospitalComment on above:Performed By: #### BMP ####[facility] [address] [address]DrAnuja BarajasChloride [Moles/Vol]103 mmol/LNormal 98-107The [facility] HospitalComment on above:Performed By: #### BMP ####[facility] [address] [address]Dr.Yilan ChangCO2 [Moles/Vol]28.0 mmol/ENnhcah09.0-32.0The [facility] HospitalComment on above: Performed By: #### BMP ####[facility] [address] [place], [place] [address]Dr.Yilan ChangCreatinine [Mass/Vol]0.74 mg/dLNormal 0.55-1.02The [facility] HospitalComment on above:Performed By: #### BMP ####[facility] [address] [place], [place] [address]Dr. Yilan ChangEGFR-AF LEBANESE>60Normal>=60The [facility] HospitalComdeckerville community hospital on above: Performed By: #### BMP ####[facility] Z[address] [place], [place] [address]Dr.Yilan ChangEGFR-NON AF LEBANESE>60Normal>=60The [facility] on above:Performed By: #### BMP ####[facility] [address] [place], [place] [address]Dr.Yilan ChangGlucose [Mass/Vol]197 mg/dLCritically ykya39-623Krj [facility] on above: Performed By: #### BMP ####[facility] Z[address] [place], [place] [address]Dr.Yilan ChangPotassium [Moles/Vol]4.5 mmol/LNormal 3.5-5.1The [facility] on above:Performed By: #### BMP ####[facility] [address] [place], [place] [address]Dr.Yilan Barajas Sodium [Moles/Vol]138 mmol/XVdntsg713-683Iji [facility] on above: Performed By: #### BMP ####[facility] [address]fn[address] [place], [place] [address]Dr.Yilan ChangUrea nitrogen [Mass/Vol]11.0 mg/dLNormal 7.0-18.0The [facility] HospitalComment on above:Performed By: #### BMP ####[facility] [address] [id number]. Jaz BarajasUrea nitrogen/Creatinine [Mass ratio]14.9 mg/mgNoMercy Health Tiffin Hospital on above:Performed By: #### BMP ####[facility] [address] [id number] BarajasXR ABD FLAT_UP on [id number] ABD FLAT_UPEXAMINATION: XR ABD FLAT_UP HISTORY: Abdominal pain COMPARISON: CT 01/31/2022 FINDINGS: BOWEL GAS PATTERN: Non-obstructed. FREE AIR: None. CALCIFICATIONS: 3 mm left pelvic calcification BONES: No fracture or visible bone lesion. OTHER: Negative. IMPRESSION: 3 mm left pelvic calcification, a phlebolith is favored Nonobstructive bowel gas pattern Electronically authenticated by: JOSE EDUARDO RIVERS Date: 2022-02-06 17:25[facility] HospitalCREATININEon 55-39-1905Qckowlqnzb [Mass/Vol]0.74 mg/dLNormal 0.55-1.02City Hospitalment on above:Performed By: #### PROGLCM #### [facility] [address] [place] [address] Dr. Jaz AlamoGFR-AF LEBANESE>60Normal>=60The [facility] on above:Performed By: #### PROGLCM #### [facility] [address] [place] [address] Dr. Jaz AlamoGFR-NON AF LEBANESE>60Normal>=60The [facility] on above:Performed By: #### PROGLCM #### [facility] [address] [place] [address] Dr. Jaz BarajasCT ABDOMEN W CONon [id number] ABDOMEN W CONEXAMINATION: CT ABDOMEN W CON [...] Electronically authenticated by: JEYSON BLANTON Date: 2022-01-31 18:16[facility] HospitalACETONE SERUMon [id number]LRPETFwa [facility] HospitalComment on above:Performed By: #### ACETON ####[facility] [address] [address]Dr. Jaz GIVENS BISI ADMITon [id number] [Catalytic activity/Vol]58 U/IZegaqp85-702Abp [facility] HospitalComment on above:Performed By: #### PREGU #### [facility] [address] [address] [address] Jaz Salguero.MB [Mass/Vol]0.64 ng/mLNormal<=3.60The [facility] Comment on above:Performed By: #### PREGU #### [facility] [address] [address] [address] Jaz MckeonTROP5.3 pg/mLNormal4.0-51.3The [facility] HospitalComment on above:Result Comment: CUT-OFF POINTS HAVE BEEN ESTABLISHED BASED ON THE FOURTH UNIVERSAL DEFINITIONS OF MYOCARDIAL INFARCTION. THE UPPER REFERENCE LIMIT (URL) OF TROPONIN, DEFINED THE 99TH PERCENTILE OF cTnI DISTRIBUTION IN A REFERENCE POPULATION, HAS BEEN CONFIRMED THE DECISION THRESHOLD FOR [place] DIAGNOSIS.Performed By: #### PREGU #### [facility] [address] [place] [address] Dr. Jaz BarajasMYO30 ng/mLNormal9-82C[facility] Medical CenterComment on above: Performed By: #### PREGU #### [facility] [address] [place] [address] Dr. Jaz Najera AUTO DIFFon [id number] #0.1 103/ulNormal0.0-0.1The [facility] HospitalComment on above:Performed By: #### PREGU #### [facility] [address] [place] [address] Dr. Jaz BarajasBasophils/100 WBC (Bld)0.5 %Normal0.2-2.0[facility] Comment on above:Performed By: #### PREGU #### [facility] [address] [place] [address] Dr. Jaz Mahoney #0.3 103/ulNormal0.0-0.7The [facility] HospitalComment on above: Performed By: #### PREGU #### [facility] [address] [place] [address] Dr. Jaz Alamoosinophils/100 WBC (Bld)2.5 %Normal0.9-7.0[facility] Comment on above:Performed By: #### PREGU #### [facility] [address] [place] [address] Dr. Jaz Alamorythrocyte distribution width (RBC) [Ratio]12.8 %Mwwbrd65.0-15.0 The [facility] HospitalComment on above:Performed By: #### PREGU #### [facility] [address] [place] [address] Dr. Jaz BarajasHematocrit (Bld) [Volume fraction]41.0 %Xggdty27.0-48.0[facility] CenterComment on above:Performed By: #### PREGU #### [facility] [address] [place] [address] Dr. Jaz BarajasHemoglobin (Bld) [Mass/Vol]13.6 g/aIOhirop82.0-16.0The [facility] HospitalComment on above:Performed By: #### PREGU #### [facility] [address] [place] [address] Dr. Jaz Mak #0.03 10e3/ulNormal0.00-0.03The [facility] HospitalComment on above:Performed By: #### PREGU #### [facility] [address] [place] [address] Dr. Jaz Mak %0.3 %Normal0.0-0.5The [facility] HospitalComment on above: Performed By: #### PREGU #### [facility] [address] [place] [address] Dr. Jaz Osborn #2.7 103/ulNormal1.2-3.8The [facility] HospitalComment on above:Performed By: #### PREGU #### [facility] [address] [place] [address] Dr. Jaz Carrillohocytes/100 WBC (Bld)25.7 %Gswjje33.5-60.0The [facility] HospitalComment on above:Performed By: #### PREGU #### [facility] [address] [place] [address] Dr. Jaz ValverdeUAL DIFF REQNONormalThe [facility] HospitalComment on above: Performed By: #### PREGU #### [facility] [address] [place] [address] Dr. Jaz Dc (RBC) [Entitic mass]27.7 kmIiazsb67.7-34.0The [facility] HospitalComment on above:Performed By: #### PREGU #### [facility] [address] [place] [address] Dr. Jaz Dc (RBC) [Mass/Vol]33.2 g/vHCkhycr34.9-35.2The [facility] HospitalComment on above:Performed By: #### PREGU #### [facility] [address] [place] [address] Dr. Jaz DcV (RBC) [Entitic vol]83.5 nLBasqkn82.0-99.0The [facility] HospitalComment on above:Performed By: #### PREGU #### [facility] [address] [place] [address] Dr. Jaz James #0.8 103/ulNormal0.3-0.8The [facility] HospitalComment on above:Performed By: #### PREGU #### [facility] [address] [place] [address] Dr. Jaz Dejesusocytes/100 WBC (Bld)7.4 %Normal1.7-12.0The [facility] Comment on above:Performed By: #### PREGU #### [facility] [address] [place] [address] Dr. Jaz Paul #6.6 103/ulCritically high1.4-6.5The [facility] Comment on above:Performed By: #### PREGU #### [facility] [address] [place] [address] Dr. Jaz Cantrellutrophils/100 WBC (Bld)63.6 %Zbisyq97.0-75.0The [facility] HospitalComment on above:Performed By: #### PREGU #### [facility] [address] [place] [address] Dr. Jaz Huberlet mean volume (Bld) [Entitic vol]11.5 fLNormal9.5-13.5The [facility] HospitalComment on above:Performed By: #### PREGU #### [facility] [address] [place] [address] Dr. Jaz BarajasPLT227 103/deEacaqp506-489Wqy [facility] HospitalComment on above: Performed By: #### PREGU #### [facility] [address] [place] [address] Dr. Jaz BarajasRBC4.91 106/ulNormal4.20-5.40The [facility] HospitalComment on above:Performed By: #### PREGU #### [facility] [address] [address] [address] Jaz BarajasWBC10.4 103/ulNormal4.0-11.0The [facility] on above:Performed By: #### PREGU #### [facility] [address] [address] [address] Jaz Ponce CHEST WO W CONon [id number] CHEST WO W CONEXAMINATION: CTA CHEST WO [...] Electronically authenticated by: JEYSON BLANTON Date: 2022-01-09 09:47[facility] HospitalD-DIMERon 38-91-1876N-DIMER0.56 mg/L FEUCritically high 0.19-0.50[facility] on above:Result Comment: test repeated critical value verifiedPerformed By: #### DDIM, PT, PTT #### [facility] [address] [address] [address] Jaz Will-DIMER COMMENTSSEE BELOWGlenbeigh Hospital on above:Result Comment: Increases in D-Dimer [...] Performed By: #### DDIM, PT, PTT #### [facility] [address] [place] [address] Dr. Jaz Reed URINE PROFILEon 21-34-1229Ektmcvaea Ql (U)NegativeNormal NEGATIVECincinnati Va Medical CenterComment on above:Performed By: #### PROGLCM #### [facility] [address] [place] [address] Dr. Jaz BarajasClarity (U)CLEARNormalCLEARCincinnati Va Medical CenterComment on above: Performed By: #### PROGLCM #### [facility] [address] [place] [address] Dr. Jaz Gibsonlor (U)YELLOWNormalYELLOWCincinnati Va Medical CenterComment on above: Performed By: #### PROGLCM #### [facility] [address] [place] [address] Dr. Jaz Larsen micrscopic examination will be performed if indicated. NormalCincinnati Va Medical CenterComment on above:Performed By: #### PROGLCM #### [facility] [address] [place] [address] Dr. Jaz BarajasGlucose Ql (U)500 mg/dlAbnormalNEGMagruder Hospital Comment on above:Performed By: #### PROGLCM #### [facility] [address] [place] [address] Dr. Jaz BarajasHemoglobin Ql (U)NegativeNormalNEGMagruder Hospital Comment on above:Performed By: #### PROGLCM #### [facility] [address] [place] [address] Dr. Jaz BarajasKetones Ql (U)NegativeNormalNEGATIVECincinnati Va Medical CenterComment on above:Performed By: #### PROGLCM #### [facility] [address] [place] [address] Dr. Jaz BarajasLEUKOCYTESNegativeNormalNEGATIVECincinnati Va Medical CenterComment on above:Performed By: #### PROGLCM #### [facility] [address] [place] [address] Dr. Jaz Jontrite Ql (U)NegativeNormalNEGATIVEThe [facility] HospitalComment on above:Performed By: #### PROGLCM #### [facility] [address] [place] [address] Dr. Jaz Ventura (U)6.0 [pH]Normal5-9The [facility] HospitalComment on above: Performed By: #### PROGLCM #### [facility] [address] [place] [address] Dr. Jaz BarajasSPEC GRAVITY>=1.015Mhrocyxy4.005-<=1.025The [facility] Comment on above:Performed By: #### PROGLCM #### [facility] [address] [place] [address] Dr. Jaz Moura PROTEINNegativeNormalNEGATIVE/ TRACEThe [facility] Comment on above:Performed By: #### PROGLCM #### [facility] [address] [place] [address] Dr. Jaz Prakash MICRO INDNOT INDICATEDNormalThThe Jewish HospitalComment on above:Performed By: #### PROGLCM #### [facility] [address] [place] [address] Dr. Jaz Tannerbilinogen Qn (U)0.2 {Oxana'U}/dLNormal0.2 - 1.0[facility] CenterComment on above:Performed By: #### PROGLCM #### [facility] [address] [place] [address] Dr. Jaz Ventura VENOUS BLOODon 56-72-1885EBZ5 UZXNWO60.2 mmHgCritically low 40.0-52.0The [facility] HospitalComment on above:Performed By: #### PHVEN #### [facility] [address] [place] [address] Dr. Jaz BarajaspH VENOUS7.837Ultdoc6.330-7.430The [facility] HospitalComment on above:Performed By: #### PHVEN #### [facility] [address] [address] [address] Jaz BarajasPREGNANCY URon 59-90-1018DAFPLZFOB, QUALNegativeNormalNEGATIVEThe [facility] HospitalComment on above:Performed By: #### PREGU #### [facility] [address] [place] [address] Dr. Jaz BarajasPROF 14(COMP METB)on 39-34-8604Onxtfal [Mass/Vol]3.2 g/dL Critically low3.4-5.0The [facility] HospitalComment on above:Performed By: #### PREGU #### [facility] [address] [place] [address] Dr. Jaz BarajasAlbumin/Globulin [Mass ratio]0.8 {ratio}NormalThe [facility] HospitalComment on above:Performed By: #### PREGU #### [facility] [address] [place] [address] Dr. Jaz Peters [Catalytic activity/Vol]109 U/NUzewxl09-460Otb [facility] HospitalComment on above:Performed By: #### PREGU #### [facility] [address] [place] [address] Dr. Jaz Sahu [Catalytic activity/Vol]95 U/LCritically pewy07-03Gdj [facility] HospitalComment on above:Performed By: #### PREGU #### [facility] [address] [place] [address] Dr. Jaz Rodriguez gap [Moles/Vol]11.7 mmol/LNormalThe [facility] on above:Performed By: #### PREGU #### [facility] [address] [place] [address] Dr. Jaz Bashir [Catalytic activity/Vol]44 U/LCritically kxcu59-72Gfn [facility] HospitalComment on above:Performed By: #### PREGU #### [facility] [address] [address] [address] Jaz BarajasBilirubin [Mass/Vol]0.3 mg/dLNormal0.2-1.0The [facility] Comment on above:Performed By: #### PREGU #### [facility] [address] [place] [address] Dr. Jaz BarajasCalcium [Mass/Vol]8.8 mg/dLNormal8.5-10.1The [facility] Comment on above:Performed By: #### PREGU #### [facility] [address] [place] [address] Dr. Jaz BarajasChloride [Moles/Vol]102 mmol/NFayxkt30-718Fjd [facility] Comment on above:Performed By: #### PREGU #### [facility] [address] [place] [address] Dr. Jaz BarajasCO2 [Moles/Vol]25.3 mmol/BAiwawf43.0-32.0The [facility] Comment on above:Performed By: #### PREGU #### [facility] [address] [place] [address] Dr. Jaz BarajasCreatinine [Mass/Vol]0.86 mg/dLNormal0.55-1.02The [facility] HospitalComment on above:Performed By: #### PREGU #### [facility] [address] [place] [address] Dr. Jaz AlamoGFR-AF LEBANESE>60Normal>=60The [facility] HospitalComment on above:Performed By: #### PREGU #### [facility] [address] [place] [address] Dr. Jaz AlamoGFR-NON AF LEBANESE>60Normal>=60The [facility] HospitalComment on above:Performed By: #### PREGU #### [facility] [address] [place] [address] Dr. Jaz BarajasGlobulin (S) [Mass/Vol]3.9 g/dLNormalThe [facility] HospitalComment on above:Performed By: #### PREGU #### [facility] [address] [address] [address] Jaz BarajasGlucose [Mass/Vol]230 mg/dLCritically wrbu78-952Fhr [facility] HospitalComment on above:Performed By: #### PREGU #### [facility] [address] [address] [address] Jaz BarajasPotassium [Moles/Vol]4.0 mmol/LNormal3.5-5.1The [facility] Comment on above:Performed By: #### PREGU #### [facility] [address] [place] [address] Dr. Jaz BarajasProtein [Mass/Vol]7.1 g/dLNormal6.4-8.2The [facility] Comment on above:Performed By: #### PREGU #### [facility] [address] [place] [address] Dr. Jaz BarajasSodium [Moles/Vol]135 mmol/LCritically vuo166-864Zsw [facility] HospitalComment on above:Performed By: #### PREGU #### [facility] [address] [place] [address] Dr. Jaz BarajasUrea nitrogen [Mass/Vol]15.0 mg/dLNormal7.0-18.0The [facility] HospitalComment on above:Performed By: #### PREGU #### [facility] [address] [place] [address] Dr. Jaz BarajasUrea nitrogen/Creatinine [Mass ratio]17.4 mg/mgNoBellevue HospitalComment on above:Performed By: #### PREGU #### [facility] [address] [place] [address] Dr. Jaz BarajasPROTIMEon [id number] Coag (PPP) [Relative time]0.96 {INR} NormalThe [facility] HospitalComment on above:Performed By: #### DDIM, PT, PTT #### [facility] [address] [place] [address] Dr. Jaz BarajasINR GUIDELINESSEE BELOWWadsworth-Rittman HospitalComment on above:Result Comment: DESIRED INR: 2.0 - 3.0 CONDITIONS NOT LISTED BELOW 2.5 - 3.5 FOR PROSTHETIC HEART VALVE REPLACEMENT 2.5 - 3.5 RECURRENT THROMBOSIS Performed By: #### DDIM, PT, PTT #### [facility] [address] [place] [address] Dr. Jaz Casanova Coag (PPP) [Time]10.4 sNormal9.0-11.6[facility] Comment on above:Performed By: #### DDIM, PT, PTT #### [facility] [address] [place] [address] Dr. Jaz Muller 60-08-2349vJNH Coag (Bld) [Time]28.8 jNfptpa77.3-36.2[facility] CenterComment on above:Performed By: #### DDIM, PT, PTT #### [facility] [address] [place] [address] Dr. Jaz French, HIGH SENSITIVITYon 10-35-7861FIAVAJ5.5 pg/mLNormal 4.0-51.3TOhioHealth Riverside Methodist HospitalComment on above:Result Comment: CUT-OFF POINTS HAVE BEEN ESTABLISHED BASED ON THE FOURTH UNIVERSAL DEFINITIONS OF MYOCARDIAL INFARCTION. THE UPPER REFERENCE LIMIT (URL) OF TROPONIN, DEFINED THE 99TH PERCENTILE OF cTnI DISTRIBUTION IN A REFERENCE POPULATION, HAS BEEN CONFIRMED THE DECISION THRESHOLD FOR [place] DIAGNOSIS.Performed By: #### PROGLCM #### [facility] [address] [place] [address] Dr. Jaz Chino 34-55-4617TTG3.769 uIU/mLNormal0.358-3.740The [facility] HospitalComment on above:Performed By: #### PREGU #### [facility] [address] [place] [address] Dr. Jaz WORTHYParma Community General HospitalComment on above: Result Comment: <0.34 UIU/ml HYPERTHYROID 0.34-5.60 UIU/ml EUTHYROID >5.60 UIU/ml HYPOTHYROIDPerformed By: #### PREGU #### [facility] [address] [place] [address] Dr. Jaz STRAUSS 1 [facility] 19-96-0471QL CHEST 1 VEXAMINATION: XR CHEST 1 V [...] authenticated by: JOSE EDUARDO RIVERS Date: 2022-01-09 08:29[facility] Vital Signs Date TimeVital SignValuePerforming YfnqpbwcpEbtxwavx85-80-1862 13:28-0400Body cmFredric Itzkowitz DO Work Phone: [facility] CenterOokvfotfsg41-58-3138 13:28-0400Body mass index (BMI) [Ratio]43.58 kg/p9Vkhehbe Itzkowitz DO Work Phone: [facility] CenterBbspaswaby93-35-7087 13:28-0400Body xsacsk618.58 kgFredric ItzHedge Communitywitz DO Work Phone: [facility] CenterKrlxfeikkd23-19-6764 16:15-0400Diastolic blood uluiypzm38 mm[Hg]Ariane Wells SHELL SIEVE OPERATOR-C Work Phone: [facility]10-21-2025 16:15-0400 Heart rate64 /minLisa Garciahholz SHELL SIEVE OPERATOR-C Work Phone: [facility]10-21-2025 16:15-0400 Respiratory rate16 /minLisa Aichholz SHELL SIEVE OPERATOR-C Work Phone: [facility]10-21-2025 16:15-0400 SaO2% (BldA) [Mass fraction]99 %Arianecl Wells SHELL SIEVE OPERATOR-C Work Phone: [facility]10-21-2025 16:15-0400 Systolic blood svryvdeb576 mm[Hg]Ariane Aichholz SHELL SIEVE OPERATOR-C Work Phone: [phone]10-21-2025 15:26-0400 Body njzogbopuch35.4 [degF]Raiane Aichholz SHELL SIEVE OPERATOR-C Work Phone: [phone]10-21-2025 15:01-0400 Inhaled oxygen flow rate8 L/minLisa Aichholz SHELL SIEVE OPERATOR-C Work Phone: [phone]10-21-2025 11:33-0400 Body mpudqc356.02 cmLisa Aichholz SHELL SIEVE OPERATOR-C Work Phone: [phone]10-21-2025 11:33-0400 Body yadbfy072.6 kgLisa Aichholz SHELL SIEVE OPERATOR-C Work Phone: [phone] [place], [place] [address]10-08-2025 13:22-0400 Body ekykhn125.02 cmLisa Aichholz SHELL SIEVE OPERATOR-C Work Phone: [phone])[address]10-08-2025 13:22-0400 Body mass index (BMI) [Ratio]40.6 kg/m2Lisa Aichholz SHELL SIEVE OPERATOR-C Work Phone: [phone]10-08-2025 13:22-0400 Body vofvdxwmvjv65.5 [degF]Ariane Aichholz SHELL SIEVE OPERATOR-C Work Phone: [phone]10-08-2025 13:22-0400 Body yvvosl940.98 kgLisa Aichholz SHELL SIEVE OPERATOR-C Work Phone: [phone]10-08-2025 13:22-0400 Diastolic blood mcylchvc54 mm[Hg]Ariane Aichholz SHELL SIEVE OPERATOR-C Work Phone: [phone]10-08-2025 13:22-0400 Heart rate66 /minLisa Aichholz SHELL SIEVE OPERATOR-C Work Phone: [phone] [place], [place] [address]10-08-2025 13:22-0400 Respiratory rate18 /minLisa Joseholz SHELL SIEVE OPERATOR-C Work Phone: [facility]10-08-2025 13:22-0400 SaO2% (BldA) [Mass fraction]98 %Ariane Garciaholz SHELL SIEVE OPERATOR-C Work Phone: [facility]10-08-2025 13:22-0400 Systolic blood avrwoioi658 mm[Hg]Ariane Joseholz SHELL SIEVE OPERATOR-C Work Phone: [phone] [place], [place] [address]25810-16-2024 17:05-0400 Body cmLisa Garciahholz SHELL SIEVE OPERATOR Work Phone: [facility] CenterIramfmgdfi38-88-1216 17:05-0400Body mass index (BMI) [Ratio]43.65 kg/m2Lisa Garciahholz SHELL SIEVE OPERATOR Work Phone: [facility] CenterQdasabyhnr43-06-3044 17:05-0400Body temperature 98.8 [degF]Ariane Joseholz SHELL SIEVE OPERATOR Work Phone: [facility] CenterYmrzqbjfip36-59-9378 17:05-0400Body enkapf843.77 kgLisa Garciahholz SHELL SIEVE OPERATOR Work Phone: [facility] CenterQkmgepzyui40-54-1076 17:05-0400Diastolic blood bvluwibv06 mm[Hg]Ariane Garciahholz SHELL SIEVE OPERATOR Work Phone: [facility] CenterEqodofwavf31-20-0484 17:05-0400Heart rate81 /min Ariane Garciahholz SHELL SIEVE OPERATOR Work Phone: [facility] CenterUnincdlyjj39-59-6327 17:05-0400Respiratory rate18 /minLisa Aichholz SHELL SIEVE OPERATOR Work Phone: [place] [address]Dszijwqcec27-47-1405 17:05-2542IhV8% (BldA) [Mass fraction]98 %Ariane Aichholz SHELL SIEVE OPERATOR Work Phone: [facility] CenterHvomvfhplf29-90-0210 17:05-0400Systolic blood ftqtzilp131 mm[Hg]Ariane Aichholz SHELL SIEVE OPERATOR Work Phone: [facility] CenterWcrjtydaiz90-86-3227 12:54-0400Body temperature 97.88 [degF]Riky Le [facility]03-28-2024 12:54-0400 Diastolic blood eeelrznz79 mm[Hg]Rikychristian Le [facility]03-28-2024 12:54-0400Heart rate78 /Rahulalondra Le [facility]03-28-2024 12:54-0400 Respiratory rate20 /isaRiky Le [address] [place], [place] 30[address]103-28-2024 12:54-0127UhE3% (BldA) [Mass fraction]98 %Riky Rey [facility]03-28-2024 12:54-0400 Systolic blood ivywztjc211 mm[Hg]Riky Rey [facility] Encounters Encounter DateEncounter TypeCare ProviderFacilityStart: 07-11-2025 End: 95-55-0697xgqvcwdfwpXHJETTN H ITZKONAIFNot AvailableStart: 07-11-2025 End: 06-88-6377Andqji follow up visit related to original pxFredric H Itzkowitz DO Work Phone: [facility] Surgical AssociatesComment on above:Umbilical hernia with obstruction, without gangrene (Primary Dx)Start: 07-04-2025 End: 96-38-1886Lsveqj follow up visit related to original pxFredric H Itzkowitz DO Work Phone: noCO Surgical AssociatesComment on above:Umbilical hernia with obstruction, without gangrene (Primary Dx)Start: 07-04-2025 End: 75-61-5827uhvihcxhymPMAFYTN H ITZKOWITZNot AvailableStart: 07-02-2025 End: 81-22-9454Esoungqil department patient visitAriane Wells [facility]ertart: 06-27-2025 End: 69-96-6208Ybbgxiuma encounterFredric Brenda Montilla DO Work Phone: [facility]oms Surgical AssociatesStart: 06-27-2025 End: 00-40-8703Eyxeag follow up visit related to original pxFredric Brenda Montilla DO Work Phone: noCO Surgical AssociatesComment on above:Umbilical hernia with obstruction, without gangrene (Primary Dx)Start: 06-27-2025 End: 70-19-5814hnckemjsrkNVHDFKD Brenda MONTILLANot AvailableStart: 06-21-2025 End: 26-69-8733Yrwbixxo Result EncounterFredric Brenda Montilla DO Work Phone: noms External Department UnsolicitedStart: 06-21-2025 End: 63-15-5963Hbkyvmce Result EncounterFredric Brenda Montilla DO Work Phone: [facility] External Department UnsolicitedStart: 06-21-2025 End: 30-83-1062Bjpuajkckv and management of inpatientFredric Trip DO-[facility] Work Phone: Start: 22-63-3052Kwv-patient / Non-visitAriane Wells SHELL SIEVE OPERATOR-C-[facility] Work Phone: Start: 06-08-2025 End: 24-54-6648hjgdeszyolFlzs J Aichholz SHELL SIEVE OPERATOR-C Work Phone: [facility] Work Phone: Start: 06-08-2025 End: 20-03-5528Soiauof encounter procedureAriane Wells SHELL SIEVE OPERATOR-C-[facility] Work Phone: Start: 06-23-2024 End: 24-97-1774AawsduRuiq Aichholz SHELL SIEVE OPERATOR Work Phone: [facility] CWM FMComment on above:Yeast infection (Primary Dx)Start: 06-16-2024 End: 02-00-3529Evousz outpatient visit 25 minutesLisa Josejose SHELL SIEVE OPERATOR Work Phone: noms CWM FMComment on above:Encounter for well woman exam with routine gynecological exam (Primary Dx); Vaginal discharge; Screening for cervical cancer; Class 3 severe obesity due to excess calories without serious comorbidity with body mass index (BMI) of 40.0 to 44.9 in adult ([facility]); Generalized anxiety disorder with panic attacks ([facility])Start: 06-16-2024 End: 43-42-7097Ssuggf flowsheetLisa Garciahholz SHELL SIEVE OPERATOR Work Phone: [facility] CWM FMStart: 06-16-2024 End: 99-11-5235Mktrlj flowsheetLisa Garciahholz SHELL SIEVE OPERATOR Work Phone: [facility] CWM FMStart: 06-16-2024 End: 40-18-2837Uturclitp Result EncounterLisa Joseholz SHELL SIEVE OPERATOR Work Phone: [facility] External Department UnsolicitedStart: 06-16-2024 End: 63-59-5587Usmgtmb encounter procedureLisa Garciahholz SHELL SIEVE OPERATOR Work Phone: noms HealthcareStart: 05-30-2024 End: 06-39-6222Sfyhwbdcm Result EncounterGeneric External Data ProviderNOMS External Department UnsolicitedStart: 05-30-2024 End: 21-67-0644Dgzlhrbri Result EncounterGeneric External Data ProviderNOMS External Department UnsolicitedStart: 05-26-2024 End: 09-64-6101FfbxigOxpa Garciahholz SHELL SIEVE OPERATOR Work Phone: [facility] CWM FMComment on above:Candidiasis of vagina (Primary Dx)Start: 05-11-2024 End: 82-91-8703Zdztkp outpatient visit 25 minutesNatalannah Owens POOL PLAYER-COURT MAGISTRATE Work Phone: noms SWS DERMComment on above: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[facility])Start: 05-11-2024 End: 30-22-9774Yqdvaw flowsheetNatalie A Felter POOL PLAYER-COURT MAGISTRATE Work Phone: [facility] SWS DERMStart: 05-11-2024 End: 73-30-8507Dnhusp flowsheetNatalie A Felter POOL PLAYER-COURT MAGISTRATE Work Phone: [facility] SWS DERMStart: 04-29-2024 End: 34-00-9253Gmithot encounter procedureNatalie A Felter POOL PLAYER-COURT MAGISTRATE Work Phone: n[facility] DERMComment on above:Rash and other nonspecific skin eruption (Primary Dx)Start: 04-29-2024 End: 95-18-4635Gcpqvu flowsheetNatalie A Felter POOL PLAYER-COURT MAGISTRATE Work Phone: [facility] SWS DERMStart: 04-29-2024 End: 11-15-5092Vqhzau flowsheetNatalie A Felter POOL PLAYER-COURT MAGISTRATE Work Phone: [facility] DERMStart: 02-25-2024 End: 09-36-2860Txoyfyocy Result EncounterGeneric External Data ProviderNOMS External Department UnsolicitedStart: 02-25-2024 End: 52-01-9759Jptmceovj Result EncounterGeneric External Data ProviderNOMS External Department UnsolicitedStart: 02-02-2024 End: 52-91-7626lppdddzwkhBzrmlmm Vytautas Giedraitis Facility:[facility] [place] Start: 11-27-2023 End: 90-64-1494Brgcvjuii department patient visitRiky LeFacility:[facility] Start: 11-27-2023 End: 78-12-9734Irllgmqfh department patient visitRiky Le [facility] Start: 12-14-2022 End: 34-67-0824xhyswvzymmBIY ARIANE WELLSFacility:S3Stjvf: 12-11-2022 End: 57-74-3859fflqiowtyzKYS ARIANE RUSSELLFacility:K4Eedvg: 11-15-2022 End: 46-82-8594cgiosokjklSX SKY DAVIS .Facility:J8Iwshz: 11-10-2022 End: 89-69-3644pfdbrebgozFN QUANG LANDA .Facility:E0Xxpoz: 08-18-2022 End: 02-95-0102cgzwgierekXOICVO RODRIGUEZ .Facility:B5Cumuv: 07-09-2022 End: 67-48-6863zognxmfpflNC SKY DAVIS .Facility:Z7Fbkio: 05-14-2022 End: 59-89-2582lzzwbyvzasSPI ARIANE RUSSELLFacility:D3Vcfjy: 87-06-9092Yktbccbdu for preprocedural laboratory examinationDR [facility] Start: 05-08-2022 End: 57-73-1384fqilxzcgbkTE [facility]Fac[facility]:G2Lmhmn: 05-08-2022 End: 08-42-4433Zvmtkxuyt for preprocedural laboratory examinationDR [facility]Facility:R6Psikv: 04-18-2022 End: 35-41-5782tgczkdtxnhZNF ARIANE RUSSELLFacility:D5Kjcig: 04-01-2022 End: 85-47-6936kwgpanbxvdENH ARIANE RUSSELLFacility:B8Ahnlo: 02-06-2022 End: 79-91-6824kqfecinuxjMDI ARIANE RUSSELLFacility:C7Spghh: 01-31-2022 End: 40-99-6105vurmgekjvnSSOJIOLT BKFacility:B2Afykk: 98-66-8478wnjclxztme COURT MAGISTRATE ARIANE RUSSELLFacility:G1Jaepc: 01-09-2022 End: 81-73-0784fhaesezznqPCBYOQ GLEN .Facility: Procedures DateProcedureProcedure DetailPerforming ClinicianStart: 48-72-5905Gjioos of umbilical herniaLisa Russell SHELL SIEVE OPERATOR-C Work Phone: Start: 17-59-9076SKSJAYE POCT GLUCOMETERSFredric Brenda Montilla DO Work Phone: Start: 85-09-4374VRK,APTIMA HPV,AGE GDLNLi Russell SHELL SIEVE OPERATOR Work Phone: Start: 28-11-7842Qqcayefzpoi observation [Identifier] in Cervix by Cyto stainAriane Wells SHELL SIEVE OPERATOR Work Phone: Start: 36-99-9987YNIZG RESPIRATORY CULTUREGeneric External Data ProviderStart: 05-12-6258SSHE / NAIL BIOPSYNatalie A Roman BAKERN-COURT MAGISTRATE Work Phone: Start: 78-76-2231Wvt spinal canal cervical w/o contrast matrlGeneric External Data ProviderStart: 78-00-9618Nmllghcignn observation [Identifier] in Cervix by Cyto stainNatalie Roman POOL PLAYER-COURT MAGISTRATE Work Phone: Start: 14-66-7418DkijunyafstXxvsn Lewis Comment on above:normalStart: 10-90-4855Ecgcdlv medicine imaging procedureRiky eL Comment on above:HIDA scan- normalStart: 10-30-2016 EsophagogastroduodenoscopyRiky Le Comment on above:esophagitisStart: 05-27-2016 PolysomnographyRiky Le Comment on above:CPAP @ 13cm H2O, small quattro, ramp time 20 minutesStart: 73-97-7694EppbtexnieffzJiygm Lewis History of ankle surgeryRiky Le History of tonsillectomyHx of tonsillectomyDee Russell SHELL SIEVE OPERATOR-C Work Phone: Tympanic ventilation tube (physical object)Riky Le Tympanic ventilation tube (physical object)Riky Le Plan of Treatment DateCare ActivityDetailAuthorStart: 74-61-3507Therrrqgi for malignant neoplasm of cervixNOMS HealthcareStart: 07-18-2025 End: 40-86-3277Labquuu encounter lqoddlywy59/17/2025 4:00 PM EST Office Visit [facility] [address] [place] [address] Trip Viktoria Gutierrez, DO [address] [place] [address] [facility] AssociatesStart: 07-11-2025 End: 44-07-6209Hjivund encounter fhpdvhyfc59/10/2025 4:00 PM EST Office Visit [facility] [address] [place] [address] Viktoria Montilla, DO [address] [place] [address] [facility] AssociatesStart: 06-21-2025 [facility] Centertart: 33-10-0955HWTLS-19 Vaccine ( season)COVID-19 Vaccine ( season)[facility] HealthcareStart: 01-06-2025 Urine screening for proteinDiabetes: Urine Protein ScreeningCenterpoint Medical Center Start: 08-10-2024 End: 74-21-5196Jvdnugq encounter ehycopayc74/10/2024 3:40 PM EST Office Visit [facility] [address] [place] [address] Mirela Owens APRN-CNP [address] [place] [address] [facility] S[facility] DERMStart: 07-26-2024 End: 26-09-7748Dlzguke encounter jyvqyovgp93/25/2024 5:00 PM EST Office Visit [facility] [address] [place] [address] Ariane Wells NP [address] [place] [address] [facility] FMStart: 06-16-2024 End: 90-28-7550SOSRROJX IMAGING PAP AND HPV DNA REFLEX HPV 16,18THINPREP IMAGING PAP AND HPV DNA REFLEX HPV 16,18 Pathology and Cytology Routine Encounter for wellwoman exam with routine gynecological exam Expected: 06/16/2024 (Approximate), Expires: 06/16/2025N[facility] HealthcareComment on above:Expected: 06/16/2024 (Approximate), Expires: 06/16/2025Start: 06-16-2024 End: 40-19-7145LYSFLSVYW (HTRX)VAGINITIS (HTRX) Lab Routine Vaginal discharge Expected: 06/16/2024 (Approximate), Expires: 06/16/2025[facility] Work Phone: Comment on above:Expected: 06/16/2024 (Approximate), Expires: 06/16/2025Start: 06-16-2024 End: 63-87-6887Thqaich encounter procedureNOMS CWM FMComment on above:Arrived Start: 05-11-2024 End: 60-59-2717Jmtpeqk encounter procedureNOMS SWS DERMComment on above:Arrived Start: 04-29-2024 End: 85-70-8098Osasqbn encounter zoptzkhqy33/29/2024 3:25 PM EDT Office Visit [facility] [address] [place] [address] Mirela Owens, POOL PLAYER-COURT MAGISTRATE [address] [place] [address] Granuloma annulareNOMS SWS DERMComment on above:Granuloma annulareStart: 66-11-5368Eeegcoguth A1c measurementDiabetes: Hemoglobin H4ACVYE HealthcareStart: 96-10-8738Iiliugepy for malignant neoplasm of cervixNOMS HealthcareStart: 93-19-9751Otjsvuypu for malignant neoplasm of cervixHPV/CotestNOMS HealthcareStart: 78-98-8840FNN Vaccines (1 - 3-dose SCDM series)HPV Vaccines (1 - 3-dose SCDM series)[facility] HealthcareStart: 2007 Hepatitis B Vaccines (1 of 3 - 19+ 3-dose series)Hepatitis B Vaccines (1 of 3 - 19+ 3-dose series)[facility] CenterStart: 57-90-9432Zdheakagibhw Vaccine: Pediatrics (0 to 5 Years) and At-Risk Patients (6 to 64 Years) (1 of 2 - PCV) Pneumococcal Vaccine: Pediatrics (0 to 5 Years) and At-Risk Patients (6 to 64 Years) (1 of 2 - PCV)[facility] CenterStart: 20-84-7806Blznszf of varicella vaccinationVaricella Vaccines (1 of 2 - 13+ 2-dose series)[facility] CenterStart: 83-78-2166Trllnsrs screeningDiabetes: Retinopathy ScreeningCenterpoint Medical CenterStart: 52-59-4288JDfK/Tdap/Td Vaccines (1 - Tdap)DTaP/Tdap/Td Vaccines (1 - Tdap)[facility] CenterStart: 52-07-8222EVT Vaccines (1 of 1 - Standard series)MMR Vaccines (1 of 1 - Standard series)[facility] CenterComprehensive metabolic 2000 panel - Serum or PlasmaSheltering Arms HospitalCytology Cervical or vaginal smear or scraping studyPap smear Pathology and Cytology Routine Encounter for well woman exam with routine gynecological exam Ordered: 06/16/2024[facility] CenterComment on above:Ordered: 4Dermatopathology exam Dermatopathology exam Pathology and Cytology Timed Rash and other nonspecific skin eruption ReleaseUpon Ordering for 1 Occurrences starting 04/29/2024[facility] Work Phone: comment on above:Release Upon Ordering for 1 Occurrences starting 4Patient EducationKnow your [facility] Work Phone: [facility] Immunizations Immunization DateImmunizationNotesCare WphhsyyzKljhngsb86-17-2563Bojjgxl SARS-CoV-2 VaccinationNatalie Roman POOL PLAYER-COURT MAGISTRATE Work Phone: [facility] Payers DatePayer CategoryPayerPolicy [id number]-[id number] [id number] [id number] 2.16.840.1.759736.3.57[id number] 2.16.840.1.623193.3.57[id number] 2.16.840.1.500556.3.57[id number] 2.16.840.1.385309.3.57[id number] 2.16.840.1.596970.3.57[id number] 2.16.840.1.398985.3.57[id number] 2.16.840.1.177097.3.57[id number] 2.16.840.1.342099.3.57[id number] 2.16.840.1.218792.3.57[id number] 2.16.840.1.147503.3.57[id number] 2.16.840.1.930347.3.57[id number] 2.16.840.1.139146.3.579.2.11954-59-4691Axzmgeg5684209 2.16.840.1.016927.3.57[id number] 2.16.840.1.838392.3.57[id number] 2.16.840.1.360763.3.57[id number] 2.16.840.1.000633.3.57[id number] 2.16.840.1.918594.3.57[id number] 2.16.840.1.932656.3.579.2.944309-28-9505Cnoxpdj5600890179183-16-5117Aahkrim [id number] 72r310n9-e555-8sc5-69f3-qx6a2ky12k12HpxmzmgHqydqmkoz [id number] 1o990ig0-5f1f-7226-in4q-[id number] 2.16.840.1.8[id number] 2.0.1.949866.3.579.2.531 Social History DateTypeDetailFacilityStart: 67-89-1322Flgrpbf smoking statusHeavy tobacco smoker (finding)[facility]Start: 96-82-1308Tkrpddr smoking status NeverGeneral Surgery BellevueStart: 03-16-2024 End: 05-45-2109Mrx Assigned At BirthFeJ.W. Ruby Memorial Hospitaltart: 12-25-2023 End: 24-65-2470Ijewehn smoking status NHISSmokes tobacco dailyNOMS Healthcare Start: 26-39-1192Zgelvun use and exposureSmokeless tobacco non-userNOMS HealthcareStart: 05-11-2024 End: 14-87-5584Efgtkqrnb beverage intakeEx-drinker (finding)[facility] Start: 03-16-2024 End: 66-98-3755Bdrgyzg of Social functionNOCO HealthcareStart: 81-83-4362Ugkpqqa Commentcaffine: coffee: 20oz and soda: 1.5L bottle dailyNOMS HealthcareStart: 48-18-2639Jnw assigned at birthNot on fileNOCO HealthcareSexFemale (finding) [facility] Centertart: 28-54-7617Uhx Assigned At BirthFeOur [facility] of [facility] Medical Equipment Procedure CodeEquipment CodeEquipment Original TextEquipment IdentifierDates [id number]: 01-28-2023 End: 03-16-2025 Goals DatePatient GoalDesired Activity/State Functional Status RfgjGiqxsddacrTkdfiwFlptpxmm35-53-5476Voxfkiybwf statusPatient at Baseline [facility] Work Phone: [phone]hj Health Questionnaire 2 item (PHQ-2) [Reported][facility]point Medical CenterMlbkrghloc11-60-3957Qudyebnkui StatusN/AFKindred Healthcare Mental Status ExzwFaqszbwemlJfbcwjKagvtpln43-54-7908Ruvqhhtxv functionCognitive Status Patient at BaselineM[facility]ull[facility] Work Phone: Clinical Notes 05-14-2022 to 07-11-2025 Note Date & XsjqLnkuYummglva84-48-9734 History of Present illness Narrative* Viktoria Montilla DO - 07/11/2025 4:00 PM EST Images from the original note were not included. Marilia Vera is a 35 y.o. female presents for Wound Check HPI: HPI Marilia presents for wound check from the umbilical [...] to debride more tissue. documented in this [facility]11-03-2025 History of Present illness Narrative* Viktoria Montilla [...] She was seen at an ER (not [facility]) and whoever saw her pressedtheir fingers into [...] further debridement if needed. documented in this [facility]10-27-2025 Telephone encounter Note* Telephone Encounter - Tabby Haley - 06/27/2025 1:37 PM EDT [facility] work [facility] [id number] Miscellaneous Notes* Telephone Encounter - Tabby Haley - 06/27/2025 1:37 PM EDT Return to work documented in this [facility]10-27-2025 History of Present illness Narrative* Viktoria Montilla DO - 06/27/2025 1:30 PM EDT Images from the original note were not included. Marilia Vera is a 35 y.o. female presents for Hosp. 1st po Umb. hernia repair (Incision check) HPI: HPI Marilia presents for her first post-op from umbilical hernia repair. She presented to [facility] with an incarcerated umbilical hernia and was transferred to [facility] for surgery. OBJECTIVE: Physical Exam Abdominal: Comments: [...] I'll see her PRN. documented in this [facility]10-21-2025 History and physical note Author Viktoria Montilla [facility] HospitalNote Date/TimeOctober 2024 2:01pm [place] [address] General Surgery H&P Signed Patient: Marilia Vera MR#: [id number] : 1990 Acct:[id number] Age/Sex: 35 / F Adm Date: 5 Loc: Room: [address] [place] [address] Type: ADM IN Attending Dr: Viktoria Montilla [...] was quite intense, she went to the [facility] emergency room where she was diagnosed with incarcerated umbilicalhernia with small bowel but no evidence of small bowel obstruction. I was called by the ER and asked for acceptance of the patient to [facility] forsurgical management. The patient was subsequently [...] Gastrointestinal: Reports abdominal pain and Reports nausea [facility] Medical History (Updated 06/21/25 @ 13:59 [...] clean-up per request of Phys. EHR [facility] Surgical History (Updated 06/21/25 @ 13:56 by Viktoria Montilla DO) History of tubal ligation History of colonoscopy Problem List clean-up per request of Phys. EHR [facility] History of esophagogastroduodenoscopy (EGD) Problem List clean-up per request of Phys. EHR [facility] History of ear surgery tubes ears Problem List clean-up per request of Phys. EHR [facility] Family History Brother Hypertension Legacy FamHx Relation: [...] Labs Laboratory Results - last 72 hr 10/21/25 12:59: POC Glucose 145 A&P - General Surgery (1) Incarcerated umbilical hernia: Plan This is a 35-year-old female who presented to the [facility] emergency room with acute onsetof abdominal pain in the periumbilical area beginning at 6AM. She had nausea but no vomiting. She was evaluated in the emergency room and diagnosed with an incarcerated umbilical hernia. The ER physician contactedme and requested transfer to [facility] for surgical management. The patient presents [...] signed by Viktoria Montilla DO> 06/21/25 1401 [facility] Work Phone: 1([phone]) 308-823510-21-2025 [place] [address] General Surgery H&P Signed Patient: Marilia Vera MR#: [id number] : 1990 Acct:[id number] Age/Sex: 35 / F Adm Date: 5 Loc: Room: [address] [place] [address] Type: ADM IN Attending Dr: Viktoria Montilla [...] was quite intense, she went to the [facility] emergency room where she was diagnosed with incarcerated umbilicalhernia with small bowel but no evidence of small bowel obstruction. I was called by the ER and asked for acceptance of the patient to [facility] forsurgical management. The patient was subsequently [...] Gastrointestinal: Reports abdominal pain and Reports nausea [facility] Medical History (Updated 06/21/25 @ 13:59 [...] clean-up per request of Phys. EHR [facility] Surgical History (Updated 06/21/25 @ 13:56 by Viktoria Montilla DO) History of tubal ligation History of colonoscopy Problem List clean-up per request of Phys. EHR [facility] History of esophagogastroduodenoscopy (EGD) Problem List clean-up per request of Phys. EHR [facility] History of ear surgery tubes ears Problem List clean-up per request of Phys. EHR [facility] Family History Brother Hypertension Legacy FamHx Relation: [...] a 35-year-old female who presented to the [facility] emergency room with acute onsetof abdominal pain in the periumbilical area beginning at 6AM. She had nausea but no vomiting. She was evaluated in the emergency room and diagnosed with an incarcerated umbilical hernia. The ER physician contactedme and requested transfer to [facility] for surgical management. The patient presents [...] 06/21/25 13 53 Signed By: 06/21/25 1401 [facility]10-08-2025 Evaluation note* Diagnosis Onset Date Resolution Status Admit Date ASHA (generalized anxiety disorder) acuteOctober 2024 1:15pmNicotine dependenceacuteOctober 2024 1:15pm Uncontrolled type 2 diabetes mellitus, without long-term current use of insulin acuteOctober 2024 1:15pmVitamin D deficiencyacuteOctober 2024 1:15pm Incarcerated umbilical herniaacuteOctober 2024 11:29am [facility] Work Phone: [phone] 622-292710-08-2025 Hospital Discharge instructionsAmbulatory Orders* AMB POC Hgb A1C Time Frame: 06/08/25, Location: Determined By Patient [facility] Work Phone: 1(397) 997-353710-16-2024 History of Present illness Narrative* Ariane Wells [...] Continuous Glucose Sensor (FreeStyle Ksenia 2 Sensor) [facility] CHANGE SENSOR EVERY 14 DAYS cyclobenzaprine (FLEXERIL) [...] nursing note reviewed. Exam conducted with a blue line trimmer present. Constitutional: General: She is not in [...] (BMI) of 40.0 to 44.9 in adult ([facility]) Vaginal discharge Health trax vaginitis exam Relevant Orders VAGINITIS (HTRX) Encounter for well woman exam with routine gynecological exam - Primary Thin prep Fu as per PAP indications Relevant Orders THINPREP IMAGING PAP AND HPV DNA REFLEX HPV 16,18 Pap smear Generalized anxiety disorder with panic attacks ([facility]) Worsening anxiety while in the car Will try increasing buspar 10mg TID Fu in 6 weeks Relevant Medications busPIRone (Buspar) 10 MG tablet Other Visit Diagnoses Screening for cervical cancer documented in this encounterCenterpoint Medical [id number] History of Present illness Narrative* Mirela Owens, [employer] MAGIST[employer] - 05/11/2024 3:25 PM EDT Suture Removal [...] Next Visit: 3 months documented in this encounterCenterpoint Medical [id number] History of Present illness Narrative* ROSA Bee [...] skin eruption Right Lower Leg - Anterior [place] patches and plaques Biopsy today, see procedure [...] Visit: 14 days s/r documented in this encounterCenterpoint Medical CenterVkssxdvgqs73-08-1214 Hospital Discharge instructions Patient Education 11/27/2023 15:37:23 [...] to strengthen the arm. General instructions Take pkdt-gjg-elczstq and prescription medicines only as told by [...] provider. Document Revised: 05/03/2022 Document Reviewed: 05/03/2022 [employer] Patient Education 2022 [employer]. Follow Up Care 11/27/2023 12:54:30 With:Georgi Pfeiffer Address: [address] [place] [id number] Business (1) When:11/30/2023 15:21:31 [facility]03-28-2024 Evaluation + Plan noteExtracted from: Title:ED [...] EDT, Weight Dosing XR Shoulder Complete Right [facility]04-17-2023 NotePROCEDURE: XR ANKLE RT MIN 3 [...] Electronically authenticated by: HAYDE VAN Date: 2022-12-16 07:21[facility]04-17-2023 NotePROCEDURE: XR KNEE RT 4V or > DATE: 12/14/2022 9:31 AM CDT COMPARISONS: None CLINICAL INDICATION: Pain of right knee joint FINDINGS: There is no evidence of fractures or other osseous abnormalities. No evidence of right knee joint effusion IMPRESSION: Right knee radiographs show no evidence of significant abnormalities. Electronically authenticated by: HAYDE VAN Date: 2022-12-16 07:17[facility]09-13-2022 NoteOPERATIVE NOTE OPERATION DATE: [...] to the recovery room [facility] good condition.[facility] Diagnosis Vitamin D deficiency- Primary Type 2 diabetes mellitus without complication, with long-term current use of insulin ([facility]) Class 3 severe obesity due to excess calories without serious comorbidity with body mass index (BMI) of 40.0 to 44.9 in adult ([facility]) Muscle spasm Spasm of muscle Muscle spasm- Primary Spasm of muscle Class 3 severe obesity due to excess calories without serious comorbidity with body mass index (BMI) of 40.0 to 44.9 in adult ([facility]) Type 2 diabetes mellitus without complication, with long-term current use of insulin ([facility]) Current tobacco use Granuloma annulare Other specified erythematous condition Granuloma annulare- Primary Other specified erythematous condition Bipolar disorder, unspecified ([facility]) Bipolar disorder, unspecified Type 2 diabetes mellitus without complication, with long-term current use of insulin ([facility]) Class 3 severe obesity due to excess calories without serious comorbidity with body mass index (BMI) of 40.0 to 44.9 in adult ([facility]) Encounter for well woman exam with routine gynecological exam- Primary Vaginal discharge Leukorrhea, not specified as infective Screening for cervical cancer Screening for malignant neoplasm of the cervix Class 3 severe obesity due to excess calories without serious comorbidity with body mass index (BMI) of 40.0 to 44.9 in adult ([facility]) Generalized anxiety disorder with panic attacks ([facility]) documented in this encounter [facility] HealthcareEvaluation note* Diagnosis Vitamin D deficiency- Primary Type 2 diabetes mellitus without complication, with long-term current use of insulin ([facility]) Class 3 severe obesity due to excess calories without serious comorbidity with body mass index (BMI) of 40.0 to 44.9 in adult ([facility]) Muscle spasm Spasm of muscle Muscle spasm- Primary Spasm of muscle Class 3 severe obesity due to excess calories without serious comorbidity with body mass index (BMI) of 40.0 to 44.9 in adult ([facility]) Type 2 diabetes mellitus without complication, with long-term current use of insulin ([facility]) Current tobacco use Granuloma annulare Other specified erythematous condition Granuloma annulare- Primary Other specified erythematous condition Bipolar disorder, unspecified ([facility]) Bipolar disorder, unspecified Type 2 diabetes mellitus without complication, with long-term current use of insulin ([facility]) Class 3 severe obesity due to excess calories without serious comorbidity with body mass index (BMI) of 40.0 to 44.9 in adult ([facility]) Encounter for well woman exam with routine gynecological exam- Primary Vaginal discharge Leukorrhea, not specified as infective Screening for cervical cancer Screening for malignant neoplasm of the cervix Class 3 severe obesity due to excess calories without serious comorbidity with body mass index (BMI) of 40.0 to 44.9 in adult ([facility]) Generalized anxiety disorder with panic attacks ([facility]) Yeast infection- Primary documented in this encounter [facility]* Diagnosis Rash and other nonspecific skin eruption- Primary documented in this encounter [facility]* Diagnosis 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[facility]) Type II or unspecified type diabetes mellitus [...] with insulin therapyacuteOct2024 1:15pmVitamin D deficiencyacuteOct2024 1:15pm [facility] Work Phone: Evaluation note* Diagnosis Vitamin D deficiency- Primary Type 2 diabetes mellitus without complication, with long-term current use of insulin ([facility]) Class 3 severe obesity due to excess calories without serious comorbidity with body mass index (BMI) of 40.0 to 44.9 in adult ([facility]) Muscle spasm Spasm of muscle Muscle spasm- Primary Spasm of muscle Class 3 severe obesity due to excess calories without serious comorbidity with body mass index (BMI) of 40.0 to 44.9 in adult ([facility]) Type 2 diabetes mellitus without complication, with long-term current use of insulin ([facility]) Current tobacco use Granuloma annulare Other specified erythematous condition Granuloma annulare- Primary Other specified erythematous condition Bipolar disorder, unspecified ([facility]) Bipolar disorder, unspecified Type 2 diabetes mellitus without complication, with long-term current use of insulin ([facility]) Class 3 severe obesity due to excess calories without serious comorbidity with body mass index (BMI) of 40.0 to 44.9 in adult ([facility]) Encounter for well woman exam with routine gynecological exam- Primary Vaginal discharge Leukorrhea, not specified as infective Screening for cervical cancer Screening for malignant neoplasm of the cervix Class 3 severe obesity due to excess calories without serious comorbidity with body mass index (BMI) of 40.0 to 44.9 in adult ([facility]) Generalized anxiety disorder with panic attacks Umbilical hernia with obstruction, without gangrene- Primary Umbilical hernia with obstruction documented in this encounter [facility] HealthcareEvaluation note* Diagnosis Vitamin D deficiency- Primary Type 2 diabetes mellitus without complication, with long-term current use of insulin ([facility]) Class 3 severe obesity due to excess calories without serious comorbidity with body mass index (BMI) of 40.0 to 44.9 in adult ([facility]) Muscle spasm Spasm of muscle Muscle spasm- Primary Spasm of muscle Class 3 severe obesity due to excess calories without serious comorbidity with body mass index (BMI) of 40.0 to 44.9 in adult ([facility]) Type 2 diabetes mellitus without complication, with long-term current use of insulin ([facility]) Current tobacco use Granuloma annulare Other specified erythematous condition Granuloma annulare- Primary Other specified erythematous condition Bipolar disorder, unspecified ([facility]) Bipolar disorder, unspecified Type 2 diabetes mellitus without complication, with long-term current use of insulin ([facility]) Class 3 severe obesity due to excess calories without serious comorbidity with body mass index (BMI) of 40.0 to 44.9 in adult ([facility]) Encounter for well woman exam with routine gynecological exam- Primary Vaginal discharge Leukorrhea, not specified as infective Screening for cervical cancer Screening for malignant neoplasm of the cervix Class 3 severe obesity due to excess calories without serious comorbidity with body mass index (BMI) of 40.0 to 44.9 in adult ([facility]) Generalized anxiety disorder with panic attacks Umbilical hernia with obstruction, without gangrene- Primary Umbilical hernia with obstruction documented in this encounter [facility] HealthcareHospital course Narrative No data available for this section [facility] Discharge instructionsAdditional Instructions DISCHARGE INSTRUCTIONS FOR GENERAL [...] directed for pain unless a prescription was provided.[facility] Work Phone: Progress note No data available for this section [facility] HospitalReason for referral (narrative)No reason for referral information availableMarion Hospital Work Phone: Summary Purpose Family History Relationship Condition Age at Onset Recorded Date/T kim Not Specified No pertinent family history Unknown brotherHypertensionUnknownfatherDeceasedUnknownHypertensionUnknownHeart disease UnknownDiabetes mellitusUnknown Advance Directives Advance Directive Response Recorded Date/ Time Advance Directives No May 5:12pm Reason for Referral SpecialtyDiagnoses / ProceduresReferred By ContactReferred To Contact Diagnoses 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CMS/HCC) QuincynicholasMirela, [employer] [address] [place] [address] Referral IDStatusReasonStart DateExpiration DateVisits RequestedVisits [id number] Chief Complaint and Reason for Visit Chief [...] and content) DATE CREATED AUTHOR 12/19/2022 [facility] DATE CREATED AUTHOR AUTHOR'S ORGANIZ ATION 11/29/2023 [facility] DATE CREATED AUTHOR AUTHOR'S ORGANIZ ATION 02/13/2024 [facility] DATE CREATED AUTHOR AUTHOR'S ORGANIZ ATION 07/07/2025 [facility] DATE CREATED AUTHOR AUTHOR'S ORGANIZ ATION 07/12/2025 [facility] EPIC Patient Care team informatio n (unrecognized section and content) Team MemberRelationshipSpecialtyStart DateEnd Date Georges Shook MD [address] [place] [phone] PCP - GeneralFamily Medicine02/19/23 Channing Freire MD [address] [facility] [place] [address] (Fax) PCP - [facility] [place] [facility]12/01/23Team MemberRelationshipSpecialtyStart DateEnd Date Georges Shook MD [address] [place] [address] PCP - GeneralFamily Medicine02/19/23 Channing Freire MD [address] [facility] [address] (Fax) PCP - [facility] [place] [facility]12/01/23Team MemberRelationshipSpecialtyStart DateEnd Date Georges Shook MD [address] [place] [address] PCP - GeneralFamily Medicine02/19/23 Channing Freire MD [address] [facility] [place] [place] [address] (Fax) PCP - [facility] [place] [facility]12/01/23Team MemberRelationshipSpecialtyStart DateEnd Date Georges Shook MD [address] [place] [address] PCP - GeneralFamily Medicine02/19/23 Channing Freire MD [address] [place] [place] [facility] [address] (Fax) PCP - [facility] [place] [facility]12/01/23Team MemberRelationshipSpecialtyStart DateEnd Date Georges Shook MD [address] [place] [address] PCP - GeneralFamily Medicine02/19/23 Channing Freire MD [address] [place] [facility] [place] [address] (Fax) PCP - [facility] [place] [facility]12/01/23Team MemberRelationshipSpecialtyStart DateEnd Date Georges Shook MD [address] [place] [address] PCP - GeneralFamily Medicine02/19/23Team MemberRelationshipSpecialtyStart DateEnd Date Georges Shook MD [address] [place] [address] PCP - GeneralFamily Medicine02/19/23Team MemberRelationshipSpecialtyStart DateEnd Date Georges Shook MD [address] [place] [address] PCP - GeneralFamily Medicine02/19/23Team MemberRelationshipSpecialtyStart DateEnd Date Georges Shook MD [address] [place] [address] PCP - GeneralFamily Medicine02/19/23Team MemberRelationshipSpecialtyStart DateEnd Date Georges Shook MD [address] [facility] [place] [address] PCP - [facility]02/19/23 Channing Freire MD [address] [place] [address] PCP - [facility] [place] [facility]12/01/23 Team Status: Active Member Role Status Dates Ariane Wells SHELL SIEVE OPERATOR-C Primary Care Provider Active Team Status: Inactive Member Role Status Dates Ariane Wells SHELL SIEVE OPERATOR-C Primary Care Provider Active Start: June 08, 2025 End: June 08, 2025Ariane Wells SHELL SIEVE OPERATOR-CAttending ProviderActiveStart: June 08, 2025 End: June 08, 2025Team MemberRelationshipSpecialtyStart DateEnd Date Georges Shook MD PCP - [facility]02/19/23 Channing Freire MD [address] [address] PCP - [facility]12/01/23 Team Status: Active Member Role/Relationship Status Dates Ariane Wells SHELL SIEVE OPERATOR-C Primary Care Provider Active Team Status: Inactive Member Role/Relationship Status Dates Ariane Wells SHELL SIEVE OPERATOR-C Primary Care Provider Active Start: June 08, 2025 End: June 08, 2025Ariane Wells SHELL SIEVE OPERATOR-CAttending ProviderActiveStart: June 08, 2025 End: June 08, 2025 Team Status: Active Member Role/Relationship Status Dates Ariane Wells SHELL SIEVE OPERATOR-C Primary Care Provider Active Start: June 21, 2025 Ariane Wells SHELL SIEVE OPERATOR-CAttending ProviderActiveStart: June 21, 2025 Team Status: Inactive Member Role/Relationship Status Dates Ariane Wells SHELL SIEVE OPERATOR-C Primary Care Provider Active Start: June 21, 2025 End: June 21, 2025Fredric Trip , DOAdmit ProviderActiveStart: June 21, 2025 End: June 21, 2025Fredric Trip , DOAttending ProviderActiveStart: June 21, 2025 End: June 21, 2025Team MemberRelationshipSpecialtyStart DateEnd Date Channing Freire MD [address] [facility] [address] [place] [address] (Fax) PCP - [facility] [place] [facility]12/01/23 Ariane Wells NP [address] [place] [address] Nurse PractitionerFamily Bdezjxlf96/27/25Team MemberRelationshipSpecialtyStart DateEnd Date Channing Freire MD [address] [address] (Fax) PCP - [facility] [place] [facility]12/01/23 Ariane Wells NP [address] [place] [address] Nurse PractitionerFamily Zzqbeskw84/27/25Team MemberRelationshipSpecialtyStart DateEnd Date Georges Shook MD PCP - GeneralFamily Medicine02/19/2310 Channing Freire MD [address] [address] (Fax) PCP - [facility] [place] [facility]12/01/23 Ariane Wells NP [address] [place] [address] Nurse Practitionermily Olbbdira40/27/25Team MemberRelationshipSpecialtyStart DateEnd Date Channing Freire MD [address] [place] [facility] [address] [place] [address] (Fax) PCP - [facility] [place] [facility]12/01/23 Channing Freire MD [address] [facility] [address] [place] [address] (Fax) PCP - GeneralFamily Tzlspgot91/3/25 Ariane Wells NP [address] [place] [address] Nurse PractitionerAdventhealth Redmond06/27/25Team MemberRelationshipSpecialtyStart DateEnd Date Channing Freire MD [address] [place] [address] [place] [address] (Fax) PCP - [facility] [place] [facility]12/01/23 Unallocated, Delaney Lemus MD [address] [place] [address] PCP - GeneralFamily Tbhkrqws36/4/25 Ariane Wells NP [address] [place] [address] Nurse PractitionerElizabeth [facility] Infirmary Dyhsjozj23/27/25 Reason for Visit (unrecogniz ed section and content) ReasonCommentsRashSpecialtyDiagnoses / ProceduresReferred By ContactReferred To ContactDermatology Diagnoses Granuloma annulare Procedures LA OFFICE/OUTPATIENT NEW HIGH MDM 60 MINUTES Ariane Wells, SHIV [address] [place] [address] Mirela Owens, [employer] [address] [place] [address] Referral IDStatusReasonStart DateExpiration DateVisits RequestedVisits [id number] Specialty Services Required /[id number] / Staple RemovalReasonCommentsHosp. 1st po Umb. hernia repairIncision kefzdDdxedyCiwwygcg4ru pow Umb.herniaStarted on Cephalexin 500mg today. Umbilical wound, odoriferousReasonCommentsWound Check Goals (unrecognized section and content) Goals may [...] BE BASED ON THE PRIMARY CLINICAL RECORDS. [facility] [employer] [facility]. provides no warranty or guarantee of the accuracy or completeness of information in this document.
--- NOTE | 2025-07-22 07:51 | ED.GENADUL1 ---
HPI HPI - General Adult General Chief complaint: Upper Respiratory Infection Stated complaint: urti complaints Time Seen by Provider: 07/22/25 07:47 Source: patient Mode of arrival: walk-in History of Present Illness HPI narrative: 35-year-old female presents for nasal congestion and sore throat. Symptoms started about 36 hours ago. No vomiting or diarrhea or productive cough. She is primarily worried about strep throat. Related Data Home Medications ?Medication ?Instructions ?Recorded ?Confirmed buspirone 10 mg tablet 10 mg PO BID 02/04/23 07/22/25 cholecalciferol (vitamin D3) 50 2,000 unit PO DAILY 02/02/24 07/22/25 mcg (2,000 unit) tablet (Vitamin D3) metformin 500 mg tablet 500 mg PO BID 02/02/24 07/22/25 dulaglutide 0.75 mg/0.5 mL 0.75 mg subcut .weekly 07/22/25 07/22/25 subcutaneous pen injector (Trulicity) Allergies Allergy/AdvReac Type Severity Reaction Status Date / Time prednisone AdvReac Severe hyperglycem Verified 07/22/25 07:41 ia Opioid HPI Opioid Management Most Recent Opioid Data: Last Pain Scale 6 Today, 07:42 Review of Systems ROS Narrative A ten point review of systems is negative except as noted above. PFSH PFSH Social History Smoking status: Current every day smoker Little interest or pleasure in doing things: not at all Feeling down, depressed, or hopeless: not at all Exam Narrative Exam Narrative: Nurses note and vital signs reviewed General:The patient appears well and in no apparent distress.Patient is resting comfortably on cart. Skin:Warm, dry, no pallor noted.There is no rash noted. Head:Normocephalic, atraumatic Eye: Normal conjunctiva, no drainage Ears, Nose, Mouth, and Throat: oral mucosa is moist. Nares patent. No pharyngeal erythema or exudate Cardiovascular:Regular Rate and Rhythm Respiratory:Patient is in no distress, no accessory muscle use, lungs are clear to auscultation, no wheezing, rales or rhonchi Back:non-tender GI: Soft and nontender Musculoskeletal: The patient has no evidence of calf tenderness, no pitting edema, symmetrical pulses noted bilaterally Neurological:A&O, normal speech Psychiatric:Cooperative Constitutional Vital Signs, click to edit/add: Last Vital Signs Temp 97.8 F 07/22/25 07:42 Pulse 79 07/22/25 07:42 Resp 16 07/22/25 07:42 BP 115/67 07/22/25 07:42 Pulse Ox 97 07/22/25 07:42 O2 Del Method Room Air 07/22/25 07:42 Course Vital Signs Vital signs: Vital Signs Temperature 97.8 F 07/22/25 07:42 Pulse Rate 79 07/22/25 07:42 Respiratory Rate 16 07/22/25 07:42 Blood Pressure 115/67 07/22/25 07:42 Pulse Oximetry 97 07/22/25 07:42 Oxygen Delivery Method Room Air 07/22/25 07:42 Temperature 97.8 F 07/22/25 07:42 Pulse Rate 79 07/22/25 07:42 Respiratory Rate 16 07/22/25 07:42 Blood Pressure 115/67 07/22/25 07:42 Pulse Oximetry 97 07/22/25 07:42 Oxygen Delivery Method Room Air 07/22/25 07:42 Medical Decision Making MDM Narrative Medical decision making narrative: Testing is positive for COVID. She was informed and is discharged home and given a work note. Treatment diagnosis and follow-up were discussed with the patient. Differential Diagnosis Differential Diagnosis: COVID, influenza, strep throat, viral illness Lab Data Lab results reviewed: Yes I reviewed the patient's lab results Labs: Lab Results 07/22/25 Range/Units 07:54 Influenza Type A Ag Negative Influenza Type B Ag Negative SARS-CoV-2 Ag (CV2AG) Positive A (NEGATIVE) Streptococcus Screen Negative Discharge Plan Discharge Chief Complaint: Upper Respiratory Infection Clinical Impression: COVID-19 Patient Disposition: Home, Self-Care Time of Disposition Decision: 08:26 Condition: Good Mode of Transportation: Private Vehicle Prescriptions / Home Meds: No Action buspirone 10 mg tablet 10 mg PO BID metformin 500 mg tablet 500 mg PO BID cholecalciferol (vitamin D3) [Vitamin D3] 50 mcg (2,000 unit) tablet 2,000 unit PO DAILY Trulicity 0.75 mg/0.5 mL pen injector 0.75 mg SUBCUT .weekly Print Language: Macedonian Instructions: COVID-19 (Coronavirus Disease 2019) (ED), Face Coverings (Masks) and COVID-19 (ED), How to Recover from COVID-19 at Home (ED) Referrals: Ariane Wells, [employer] D[employer]ING MACHINE OPERATOR [Primary Care Provider, Family Practice] - 1 week
[2025-07-22 08:17] LABS: SARS-CoV-2 Ag POSITIVE (NEGATIVE)
[2025-07-22 08:35] VITALS: BP 117/78; PULSE 68; O2SAT 97
== END 2025-07-22 08:38 | disposition home or self-care (01) ==
PROVIDERS: Emergency Provider Emergency Medicine; PCP Nurse Practitioner
DX: U07.1 COVID-19 (principal); F17.200 Nicotine dependence, unspecified, uncomplicated
CPT/HCPCS: 87070; 87804; 87811; 87880; 99283